=== PATIENT | male | born 1950 | race Caucasian/White ===

== ENCOUNTER 2023-04-07 09:58 | Outpatient (OUT) | payer MEDICARE, OTHER, SELFPAY ==
--- NOTE | 2023-04-07 10:45 | MR_ITS ---
[address] [address] Patient Name: TERRI LOWE MRN: [id number] date: 1950 Sex: M Assigned Patient Location: MRI Current Patient Location: MRI Accession/Order Number: [id number] Exam Date: 04/07/2023 10:45 Report Date: 04/09/2023 07:06 At the request of: KRISHNA VALDES Procedure: MR cervical spine wo con EXAM: MR cervical spine wo con REASON FOR EXAM: Cervical radiculopathy at C5 M54.12. TECHNIQUE: Multiplanar, multisequence imaging of the cervical spine was performed without contrast COMPARISON: Plain radiographs 09/22/2022. FINDINGS: Study mildly degraded by motion. Limited evaluation of the posterior fossa is unremarkable. The visualized spinal cord demonstrates grossly normal caliber and signal. Normal cervical lordosis. Vertebral body heights and facet alignments are maintained. No acute or aggressive osseous abnormality identified. Visualized paravertebral soft tissues are unremarkable. C2-C3: No focal disc herniation identified. No sniffing spinal canal or neural foraminal stenosis. C3-C4: Mild broad-based disc bulge with mild spinal canal stenosis. Moderate to severe bilateral neural foraminal stenosis secondary to uncovertebral degeneration and facet arthropathy, left greater than right. C4-C5: Broad-based disc bulge with mild spinal canal stenosis. Moderate to severe bilateral neural foraminal stenosis secondary to disc osteophyte complex, uncovertebral degeneration and facet arthropathy. C5-C6: Broad-based disc bulge with mild spinal canal stenosis. Moderate to severe bilateral neural foraminal stenosis, right greater than left secondary to disc osteophyte complex, uncovertebral degeneration and facet arthropathy. C6-C7: Broad-based disc bulge with mild spinal canal stenosis. Moderate to severe bilateral neural foraminal stenosis secondary to uncovertebral degeneration facet arthropathy, right greater than left. C7-T1: No focal disc herniation identified. Moderate bilateral neural foraminal stenosis secondary to uncovertebral degeneration and facet arthropathy. IMPRESSION: Moderate multilevel degenerative disc disease with moderate to severe bilateral neural foraminal stenosis, most notably at the C4-C5 through C6-C7 levels. No evidence of severe spinal canal stenosis. Electronically authenticated by: LALA MARTINEZ Date: 04/09/2023 07:06
== END 2023-04-07 09:59 | disposition home or self-care (01) ==
LOC: MRI 10:04
PROVIDERS: PCP Nurse Practitioner; Visit Provider Personal Emergency Response Attendant
DX: M54.12 Radiculopathy, cervical region (principal)
CPT/HCPCS: 72141

== ENCOUNTER 2023-05-01 15:14 | Outpatient (OUT) | payer MEDICARE, OTHER, SELFPAY ==
[2023-05-01 15:35] LABS: Basophils Percent Auto 0.3 % (0.2-2.0); Eosinophils Absolute Auto 0.1 10^3/uL (0.0-0.7); Eosinophils Percent Auto 1.5 % (0.9-7.0); Hematocrit 52.7 % (42.0-54.0); Hemoglobin 18.1 g/dL (14.0-18.0); Immature Granulocytes Abs Auto 0.02 10^3/uL (0.00-0.03); Immature Granulocytes Pct Auto 0.3 % (0.0-0.5); Lymphocytes Absolute Auto 2.1 10^3/uL (1.2-3.8); Lymphocytes Percent Auto 33.6 % (20.5-60.0); Mean Corpuscular HGB Conc 34.3 g/dL (29.9-35.2); Mean Corpuscular Hemoglobin 31.3 pg (25.9-34.0); Mean Corpuscular Volume 91.2 fL (80.0-94.0); Mean Platelet Volume 9.6 fL (9.5-13.5); Monocytes Absolute Auto 0.5 10^3/uL (0.3-0.8); Monocytes Percent Auto 8.6 % (1.7-12.0); Neutrophils Absolute Auto 3.4 10^3/uL (1.4-6.5); Neutrophils Percent Auto 55.7 % (43.0-75.0); Platelet Count 169 10^3/uL (150-450); Red Blood Count 5.78 10^6/uL (4.70-6.10); Red Cell Distribution Width 13.4 % (11.0-15.0); White Blood Count 6.1 10^3/uL (4.0-11.0)
[2023-05-01 16:10] LABS: Anion Gap 13.5; BUN Creatinine Ratio 19.4; Calcium 9.2 mg/dL (8.5-10.1); Carbon Dioxide 27.3 mmol/L (21.0-32.0); Chloride 101 mmol/L (98-107); Estimated GFR (African America >60 (>=60); Estimated GFR (Non-African Ame >60 (>=60); Glucose 128 mg/dL (74-106); Potassium 4.8 mmol/L (3.5-5.1); Sodium 137 mmol/L (136-145)
[2023-05-01 16:41] LABS: Estimated Average Glucose 180 mg/dL; Glycohemoglobin A1C 7.9 % (4.5-6.2)
== END 2023-05-01 15:15 | disposition home or self-care (01) ==
LOC: LAB 15:16
PROVIDERS: PCP Nurse Practitioner; Visit Provider Nurse Practitioner
DX: E11.65 Type 2 diabetes mellitus with hyperglycemia (principal); D64.9 Anemia, unspecified
CPT/HCPCS: 36415; 80048; 82607; 82728; 83036; 83540; 85025

== ENCOUNTER 2023-06-12 13:22 | Outpatient (OUT) | payer MEDICARE, OTHER, SELFPAY ==
--- NOTE | 2023-06-12 14:04 | CA_ITS ---
[facility] Test Date: 2023-06-12 Pat Name: TERRI LOWE Department: Room: - Gender: Male [employer]: : 1950 Requested By: OMID RICKS Order Number: [id number] Reading MD: ROBERTO GODDARD Interpretive Statements Monophasic doppler waveforms of the LLE PVR waveform with delayed upstroke, blunted amplitude and loss of dicrotic notch of the LLE Right: - significant pressure gradient between the calf and DP cuff - abnormal MALATHI Left: - signficant pressure gradient between the brachial and thigh cuff - abnormal MALATHI IMpression: - significant right outflow (tibioperoneal) arterial disease with mild hemodynamic impairment of the right lower extremity at rest (MALATHI 0.94) - significant left inflow (femoral artery or above) arterial disease with moderate hemodynamic impairment of the left lower extremity at rest (MALATHI 0.66) Electronically Signed On 06-13-2023 7:23:30 EDT by ROBERTO GODDARD
== END 2023-06-12 13:23 | disposition home or self-care (01) ==
LOC: CARD 13:22
PROVIDERS: PCP Nurse Practitioner
DX: I73.9 Peripheral vascular disease, unspecified (principal); E66.9 Obesity, unspecified
CPT/HCPCS: 93923

== ENCOUNTER 2023-08-29 13:53 | Outpatient (OUT) | payer MEDICARE, OTHER, SELFPAY ==
[2023-08-29 14:44] LABS: Anion Gap 11.8; BUN Creatinine Ratio 14.3; Calcium 9.5 mg/dL (8.5-10.1); Carbon Dioxide 26.6 mmol/L (21.0-32.0); Chloride 102 mmol/L (98-107); Estimated GFR (African America >60 (>=60); Estimated GFR (Non-African Ame >60 (>=60); Glucose 169 mg/dL (74-106); Potassium 4.4 mmol/L (3.5-5.1); Sodium 136 mmol/L (136-145)
[2023-08-29 14:47] LABS: Estimated Average Glucose 177 mg/dL; Glycohemoglobin A1C 7.8 % (4.5-6.2)
== END 2023-08-29 13:54 | disposition home or self-care (01) ==
LOC: LAB 13:56
PROVIDERS: PCP Nurse Practitioner; Visit Provider Nurse Practitioner
DX: E11.8 Type 2 diabetes mellitus with unspecified complications (principal)
CPT/HCPCS: 36415; 80048; 83036

== ENCOUNTER 2023-12-05 12:44 | Outpatient (OUT) | payer MEDICARE, OTHER, SELFPAY ==
--- NOTE | 2023-12-05 12:47 | CT_ITS ---
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 TECHNIQUE: Contiguous axial CT images of the sinuses obtained without contrast. Coronal and sagittal reconstructions performed. Dose reduction techniques were achieved by using automated exposure control and/or adjustment of mA and/or kV according to patient size and/or use of iterative reconstruction technique. FINDINGS: There is minimal mucosal thickening of the bilateral maxillary sinuses. Otherwise, the paranasal sinuses are well-aerated without mucosal thickening or air-fluid level. Bilateral infundibulum of the ostiomeatal complexes are narrow but patent. The frontoethmoidal recesses are patent bilaterally. 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 There is moderate rightward bony nasal septal deviation with a bony spur.. There are no acute fracture, destructive lesion or sclerosis of bony structures. The visualized mastoid air cells and middle ear cavities are clear. There is no proptosis. The extraocular muscles are intact. CT/CT sinus wo con IMPRESSION: No evidence of acute sinusitis. Minimal mucosal thickening of the bilateral maxillary sinuses. Otherwise, the paranasal sinuses are clear and well-aerated. Bilateral infundibulum of the ostiomeatal complexes are narrow but patent. Moderate rightward deviation of nasal septum with a bony spur. Electronically authenticated by: JONNIE DAVISU Date: 12/05/2023 13:25
--- OUTSIDE RECORDS SUMMARY | 2023-12-05 12:55 | XMS_ITS | CCD ---
Author Name Unknown Address [address] [place] [address] Organization [facility] Care Team Providers Care Director Nursing Service Name Role Phone Shen Luis Unavailable Krishna Ocasio Unavailable TONYA DEY Primary Care Physician Bernadine PLATT Attending Unavailable TONYA DYE Referring UnavailBernadine Jamil Attending Unavailable AICHTONYA WEST Referring Unavailabl e Bernadine PLATT Attending Unavailable Bernadine PLATT Attending Unavailable AICHHOLZ, RUBBER SPLICER TONYA Consulting Unavailable AICHHOLZ, RUBBER SPLICER TONYA Primary Care Unavailable AICHHOLZ, RUBBER SPLICER TONYA Attending Unavailable AICHHOLZ, RUBBER SPLICER TONYA Admitting Unavailable AICHHOLZ, RUBBER SPLICER TONYA Consulting Unavailable AICHHOLZ, RUBBER SPLICER TONYA Primary Care Unavailable AICHHOLZ, RUBBER SPLICER TONYA Attending Unavailable AICHHOLZ, RUBBER SPLICER TONYA Admitting Unavailable PRIETO, DR BHAVANA Pinzon Consulting Unavailable MILLICENT, DR ANNE Consulting Unavailable AICHHOLZ, RUBBER SPLICER TONYA Primary Care Unavailable ABBAS, DR ANNE Attending Unavailable MILLICENT, DR ANNE Admitting Unavailable PRIETO, DR BHAVANA Pinzon Consulting Unavailable KEISHA ., MR KRISHNA Consulting Unavailable AICHHOLZ, RUBBER SPLICER TONYA Primary Care Unavailable VALDES ., MR KRISHNA Attending Unavailable VALDES ., MR KRISHNA Admitting Unavailable AICHHOLZ, RUBBER SPLICER TONYA Consulting Unavailable AICHHOLZ, RUBBER SPLICER TONYA Primary Care Unavailable AICHHOLZ, RUBBER SPLICER TONYA Attending Unavailable AICHHOLZ, RUBBER SPLICER TONYA Admitting Unavailable DR BHAVANA MOREAU Consulting Unavailable DR IRENE GONZALEZ Procedure Practitioner Unavaila DR IRENE Yang Consulting Unavailable FAWWAD, TODD H Attending Unavailable FAWWAD, TODD H Admitting Unavailable AICHHOLZ, RUBBER SPLICER TONYA Primary Care Unavailable CHIO ., DR BERNADINE Pink Consulting Unavailvasile BARROSO ., DR BERNADINE Pink Procedure Practitioner U IAN Caputo Consulting Unavailable GAGAND, TODD H Consulting Unavailable SID KWONG Consulting Unavailable BHAVANA MCCANN Consulting Unavailable NILL ., DR COLINDRES Consulting Unavailable AICHHOLZ, RUBBER SPLICER TONYA Primary Care Unavailable NILL ., DR COLINDRES Attending Unavailable NILL ., DR COLINDRES Admitting Unavailable RHYS, MEJIA Bloom Consulting Unavailable AICHHOLZ, RUBBER SPLICER TONYA Primary Care Unavailable NILL ., DR COLINDRES Attending Unavailable NILL ., DR COLINDRES Admitting Unavailable CARLOS, DR IRENE Pinzon Consulting Unavailable CARLOS, DR IRENE Pinzon Attending Unavailable CARLOS, DR IRENE Pinzon Admitting Unavailable AICHHOLZ, RUBBER SPLICER TONYA Primary Care Unavailable ROSARIO BLANCO Consulting Unavailable AICHHOLZ, RUBBER SPLICER TONYA Consulting Unavailable AICHHOLZ, RUBBER SPLICER TONYA Primary Care Unavailable AICHHOLZ, RUBBER SPLICER TONYA Attending Unavailable AICHHOLZ, RUBBER SPLICER TONYA Admitting Unavailable AICHHOLZ, RUBBER SPLICER TONYA Consulting Unavailable AICHHOLZ, RUBBER SPLICER TONYA Primary Care Unavailable AICHHOLZ, RUBBER SPLICER TONYA Attending Unavailable AICHHOLZ, RUBBER SPLICER TONYA Admitting Unavailable AICHHOLZ, RUBBER SPLICER TONYA Consulting Unavailable AICHHOLZ, RUBBER SPLICER TONYA Primary Care Unavailable AICHHOLZ, RUBBER SPLICER TONYA Attending Unavailable AICHHOLZ, RUBBER SPLICER TONYA Admitting Unavailable MILLICENT, DR ANNE Consulting Unavailable AICHHOLZ, RUBBER SPLICER TONYA Primary Care Unavailable MILLICENT, DR ANNE Attending Unavailable ABBVICKY, DR ANNE Admitting Unavailable ROSALINE, DR BINDU Brown Consulting Unavailable AICHHOLZ, RUBBER SPLICER TONYA Primary Care Unavailable AICHHOLZ, RUBBER SPLICER TONYA Attending Unavailable AICHHOLZ, RUBBER SPLICER TONYA Admitting Unavailable AICHHOLZ, RUBBER SPLICER TONYA Consulting Unavailable Aichholz, Tonya J Primary Care Provider MD Shen Luis Attending Provider Hardik, Tonya J Primary Care Unavailable Shen Luis Attending Unavailable Shen Luis Admitting Unavailable Aichholz OPTICIAN APPRENTICE DISPENSING, Tonya Unavailable Mumtaz Harry MD Primary Care Provider SOL BAGLEY Attending Unavailable MUMTAZ HARRY Referring Unavailable TONYA DYE Attending Unavailable KRISHNA VALDES Attending Unavailable KRISHNA VALDES Referring Unavailable Allergies Allergy Classification Reported Allergen(s) Allergy Type Date of Onset Reaction(s) Facility (13 sources) Ciprofloxacin; Translations: [ciprofloxacin] Drug Allergy 03-14-20 21 Itching (finding), Unknown [facility] (10 sources) liraglutide; Translations: [liraglutide] Drug Allergy 03-14-20 21 Itching (finding) [facility] (4 sources) liraglutide; Translations: [Victoza] Drug Allergy 03-26-20 22 rash [facility] Repository (7 sources) Penicillin; Translations: [penicillin] Drug Allergy Itching (finding) [facility] (5 sources) Penicillin V Drug Allergy Unknown [facility] Other (8 sources) Pollen Propensity to adverse reactions Unknown [facility] Other (7 sources) Cefaclor; Translations: [cefaclor] Drug Allergy 09-19-20 23 Itching (finding) [facility] (2 sources) Ciprofloxacin; Translations: [Cipro] Drug Allergy 04-30-20 21 [facility] Repository (1 source) Cefaclor Drug Allergy [facility] Repository (1 source) dulaglutide Drug Allergy 03-26-20 22 [facility] (1 source) insulin aspart, human Drug Allergy 03-27-20 22 [facility] (1 source) Penicillin Drug Allergy 03-26-20 22 [facility] (2 sources) Penicillins; Translations: [Penicillins] Allergy to substance 03-14-20 21 Itching [facility] (1 source) Ciprofloxacin Drug Allergy 10-24-19 [facility] Repository (1 source) liraglutide Drug Allergy 10-24-19 24 [facility] Repository (1 source) Pollen Drug allergy (disorder) 10-24-19 24 [facility] Repository (3 sources) dulaglutide Drug Allergy 03-09-20 23 Unknown [facility] Healthcare (3 sources) liraglutide Drug Allergy 03-09-20 Unknown [facility] Healthcare (3 sources) Penicillin G Drug Allergy 03-09-20 Unknown [facility] Healthcare Medications Current Medications Medication Drug Class(es) Dates Sig (Normalized) Sig (Original) amLODIPine 5 mg oral tablet (13 sources) Dihydropyridine Calcium Channel Kayla Start: 03-09-2021 amLODIPine (Norvasc) 5 MG tablet Take 5 mg by mouth 0 08/24/2022 Active aspirin 81 mg delayed release oral tablet (10 sources) Platelet Aggregation Inhibitor, Nonsteroidal Anti-inflammatory Drug Start: 03-09-2021 take 1 tablet by mouth once daily aspirin 81 mg Oral EC Tab 81 mg = 1 tab(s), Oral, Daily, Refills(s) 0 Start Date: 08/24/22 Status: Ordered Aspirin Adult Lo w Dose 81 MG as directed Orally Active cilostazol 100 mg oral tablet (9 sources) Phosphodiesterase 3 Inhibitor Start: 08-24-2022 take 1 tablet by mouth twice daily cilostazol 100 mg Tab 100 mg = 1 tab(s), Oral, BID, Refills(s) 0 Start Date: 08/24/22 Status: Ordered clonazePAM 0.5 mg oral tablet (3 sources) Benzodiazepine Start: 08-24-2022 take 1 tablet by mouth twice daily as needed for anxiety Klonopin 0.5 mg Tab 0.5 mg = 1 tab(s), Oral, BID, PRN Anxiety, Refills(s) 0 Start Date: 08/24/22 Status: Ordered clopidogrel 75 mg oral tablet (9 sources) P2Y12 Platelet Inhibitor Start: 03-09-2021 take 1 tablet by mouth in the morning clopidogrel (Plavix) 75 MG tablet Take 75 mg by mouth in the morning. 0 08/30/2022 Active dapagliflozin 5 mg oral tablet (6 sources) Sodium-Glucose Cotransporter 2 Inhibitor Start: 08-24-2022 take 1 tablet by mouth once daily Farxiga 5 mg oral tablet 5 mg = 1 tab(s), Oral, Daily, Refills(s) 0 Start Date: 08/24/22 Status: Ordered take 10 mg by mouth in the morni ng Farxiga 10 MG Take 10 mg by mouth in the morning. 0 Active ferrous sulfate 325 mg delayed release oral tablet (12 sources) Start: 08-24-2022 take 1 tablet by mouth twice daily ferrous sulfate 325 mg oral enteric coated tablet 325 mg = 1 tab(s), Oral, BID, Refills(s) 0 Start Date: 08/24/22 Status: Ordered take 1 tablet by mouth at [facility] de ferrous sulfate 325 (65 Fe) MG tablet Take 325 mg by mouth in the morning. Take with meals. 0 Active Flonase 0.05 mg/inh nasal spray (1 source) Start: 08-24-2022 Flonase 0.05 m g/inh nasal spray 2 spray(s), Nasal, Daily, Refill(s) 0 Start Date: 08/24/22 Status: Ordered fluticasone propionate 0.05 mg/actuat metered dose nasal spray (11 sources) Corticosteroid Start: 05-12-2023 fluticasone (F lonase) 50 MCG/ACT nasal spray Start: 08-24-2022 Flonase 0.05 m g/inh nasal spray 2 spray(s), Nasal, Daily, Refill(s) 0 Start Date: 08/24/22 Status: Ordered Start: 07-09-2019 take 1 spray(s) nasa l route once daily as needed Flonase 50 MCG/ACT 1 spray in each nostril Nasally Once a day for 10 day(s) PRN Jun, Not-Taking/PRN Start: 07-09-2019 take 1 spray(s) nasa l route once daily as needed Flonase 50 MCG/ACT 1 spray in each nostril Nasally Once a day for 10 day(s) PRN Jun, Not-Taking gabapentin 400 mg oral capsule (13 sources) Anti-epileptic Agent Start: 08-24-2022 gabapenti n (Neurontin) 400 MG capsule as directed, Refills(s) 0 0 08/24/2022 Active Start: 03-09-2021 take 300 mg by mouth four times daily Gabapentin Active 300 MG PO Four times daily March 08, 2021 11:00pm take 1 capsule by [facility] every eight hours Gabapentin 300 MG 1 capsule Orally three times a day for 90 days Active glipiZIDE 10 mg oral tablet (10 sources) Sulfonylurea Start: 03-09-2021 take 10 mg by mouth once daily Glipizide Active 10 MG PO Daily March 08, 2021 11:00pm take 1 tablet by [facility] twice daily 30 minutes before lunch glipiZIDE 10 mg TAKE 1 TABLET 30 MINUTES BEFORE LUNCH AND DINNER Orally twice a day for 90 day(s) Active metFORMIN hydrochloride 1000 mg oral tablet (13 sources) Biguanide Start: 03-09-2021 metFORMIN (Glu cophage) 1000 MG tablet Take 1,000 mg by mouth. 0 08/24/2022 Active metoprolol tartrate 50 mg oral tablet (13 sources) beta-Adrenergic Kayla Start: 08-24-2022 metoprolol tartrate (Lopressor) 50 MG tablet Take 50 mg by mouth. 0 08/24/2022 Active Start: 03-09-2021 take 50 mg by mouth once daily Metoprolol Tartrate Active 50 MG PO Daily March 08, 2021 11:00pm Metoprolol [facility] 100 mg TAKE 1 TABLET DAILY Active pioglitazone 30 mg oral tablet (19 sources) Peroxisome Proliferator Receptor alpha Agonist, Peroxisome Proliferator Receptor gamma Agonist, Thiazolidinedione Start: 03-09-2021 pioglitazone (Actos) 30 MG tablet Take 30 mg by mouth. 0 08/24/2022 Active Actos Not-Taking /PRN Actos Not-Taking sertraline 50 mg oral tablet (9 sources) Serotonin Reuptake Inhibitor Start: 08-24-2022 take 1 tablet by mouth once daily Zoloft 50 mg Tab 50 mg = 1 tab(s), Oral, Daily, Refills(s) 0 Start Date: 08/24/22 Status: Ordered simvastatin 20 mg oral tablet (13 sources) HMG-CoA Reductase Inhibitor Start: 03-09-2021 simvastatin (Zocor) 20 MG tablet tamsulosin hydrochloride 0.4 mg oral capsule (13 sources) alpha-Adrenergic Kayla Start: 08-24-2022 take 1 capsule by mouth every twenty-four hours tamsulosin (Flomax) 0.4 MG 24 hr capsule Take 0.4 mg by mouth. 0 08/24/2022 Active Start: 03-09-2021 take 1 capsule by mo ut once daily Flomax 0.4 mg Cap 0.4 mg = 1 cap(s), Oral, Daily, Refills(s) 0 Start Date: 08/24/22 Status: Ordered vitamin b12 1 mg oral tablet (3 sources) Vitamin B12 take 1 tablet by mouth in the morning cyanocobalamin (Vitamin B-12) 1000 MCG tablet Take 1,000 mcg by mouth in the morning. 0 Active Vitamin B12 1000 mcg Tab (3 sources) Start: 08-24-2022 take 1 tablet by mouth once daily Vitamin B12 1000 mcg Tab 1,000 mcg = 1 tab(s), Oral, Daily, Refills(s) 0 Start Date: 08/24/22 Status: Ordered Completed/Discontinued Medications Medication Drug Class(es) Dates Sig (Normalized) Sig (Original) acetaminophen 325 mg / HYDROcodone bitartrate 5 mg oral tablet (7 sources) Opioid Agonist Start: 03-14-2021 take 1 tablet by mouth every six hours HYDROcodone-Acetamin ophen 5-325 MG 1 tablet as needed Orally every 6 hrs for 5 days Mar, Not-Taking/PRN cyclobenzaprine hydrochloride 5 mg oral tablet (6 sources) Muscle Relaxant Start: 12-23-2020 take 1 tablet by mouth every twenty-four hours Cyclobenzaprine HCl 5 MG 1 tablet at bedtime as needed Orally Once a day for 20 day(s) Dec, Not-Taking/PRN Triamcinolone (12 sources) Corticosteroid Start: 07-29-2021 Kenalog -40 mg Jul, 40 mg Start: 06-19-2019 Triamcinolone Acetonide 0.1 % 1 application to affected area (10 cm area on both arms) Externally Twice a day for 10 day(s) PRN Jun, Not-Taking/PRN Start: 06-19-2019 Triamcinolone Acetonide 0.1 % 1 application to affected area (10 cm area on both arms) Externally Twice a day for 10 day(s) PRN Jun, Not-Taking triamcinolone (K enalog) 0.1 % cream every 12 (twelve) hours. 0 Active Problems Active Problems Problem Classification Problem Date Documented Da te Episodic/Chronic Anxiety disorders (6 sources) Panic disorder; Translations: [Panic disorder [episodic paroxysmal anxiety]] Onset: 4 08-24-2022 Chronic Cardiac dysrhythmias (13 sources) Multiple premature ventricular complexes; Translations: [Ventricular premature depolarization] Onset: 2 08-24-2022 Chronic Cardiac dysrhythmias (7 sources) Bradycardia; Translations: [Bradycardia, unspecified] Onset: 2 08-24-2022 Episodic Chronic obstructive pulmonary disease and bronchiectasis (1 source) Chronic obstructive pulmonary disease, unspecified; Translations: [COPD UNSPECIFIED] Onset: 2 Chronic Congestive heart failure; nonhypertensive (6 sources) Diastolic dysfunction; Translations: [Other ill-defined heart diseases] Onset: 4 08-24-2022 Chronic Deficiency and other anemia (6 sources) Iron deficiency anemia; Translations: [Iron deficiency anemia, unspecified] Onset: 4 08-24-2022 Episodic Deficiency and other anemia (5 sources) Iron deficiency anemia, unspecified; Translations: [IRON DEFICIENCY ANEMIA UNSPECIFIED] Onset: 2 Episodic Diabetes mellitus with complications (20 sources) Type 2 diabetes mellitus in obese; Translations: [Type 2 diabetes mellitus with other specified complication] Onset: 2 08-24-2022 Chronic Diabetes mellitus without complication (7 sources) Diabetes mellitus; Translations: [Type 2 diabetes mellitus without complications] Onset: 2 08-24-2022 Chronic Diseases of white blood cells (1 source) Elevated white blood cell count, unspecified; Translations: [ELEVATED WHITE BLOOD CELL COUNT UNS] Onset: 2 Chronic Disorders of lipid metabolism (13 sources) Mixed hyperlipidemia; Translations: [Mixed hyperlipidemia] Onset: 3 08-24-2022 Chronic Diverticulosis and diverticulitis (1 source) Diverticulosis of large intestine without perforation or abscess with bleeding; Translations: [DVRTCLOS LG INT W/O PERF/ABSC W/BL] Onset: 2 Chronic Essential hypertension (15 sources) Essential hypertension; Translations: [Essential (primary) hypertension] Onset: 3 08-24-2022 Chronic Heart valve disorders (4 sources) Nonrheumatic aortic (valve) stenosis; Translations: [Aortic valve disorders] Onset: 2 10-31-2023 Chronic Heart valve disorders (3 sources) Heart murmur; Translations: [Cardiac murmur, unspecified] Onset: 4 11-29-2023 Episodic Hyperplasia of prostate (13 sources) Benign prostatic hyperplasia; Translations: [Benign prostatic hyperplasia without lower urinary tract symptoms] Onset: 3 08-24-2022 Chronic Hypertension with complications and secondary hypertension (1 source) Hypertensive heart disease with heart failure; Translations: [HTN HEART DISEASE W/HEART FAIL] Onset: 2 Chronic Nutritional deficiencies (7 sources) Cobalamin deficiency; Translations: [Deficiency of other specified B group vitamins] Onset: 3 08-24-2022 Episodic Osteoarthritis (9 sources) Arthritis of right knee; Translations: [Unilateral primary osteoarthritis, right knee] Onset: 1 Resolved: 2 Chronic Other circulatory disease (1 source) Other specified symptoms and signs involving the circulatory and respiratory systems; Translations: [OTH SPEC SX SIGNS INVLV CIRC RS] Onset: 3 Episodic Other connective tissue disease (1 source) Olecranon bursitis, left elbow Episodic Other connective tissue disease (1 source) Olecranon bursitis, right elbow Episodic Other connective tissue disease (1 source) Pain in lower limb; Translations: [Pain in leg, unspecified] 09-27-2023 Episodic Other connective tissue disease (3 sources) Synovial cyst of right popliteal space; Translations: [Synovial cyst of popliteal space [Jones], right knee] Onset: 4 11-29-2023 Episodic Other connective tissue disease (3 sources) Bursitis of olecranon of right elbow; Translations: [Olecranon bursitis, right elbow] Onset: 4 11-29-2023 Episodic Other connective tissue disease (3 sources) Bursitis of olecranon of left elbow; Translations: [Olecranon bursitis, left elbow] Onset: 4 11-29-2023 Episodic Other diseases of bladder and urethra (1 source) Other specified disorders of bladder; Translations: [OTHER SPECIFIED DISORDERS BLADDER] Onset: 2 Chronic Other ear and sense organ disorders (6 sources) Hearing loss; Translations: [Unspecified hearing loss, unspecified ear] Onset: 2 08-24-2022 Chronic Other ear and sense organ disorders (1 source) Unspecified hearing loss, unspecified ear; Translations: [UNS HEARING LOSS UNSPECIFIED EAR] Onset: 3 Chronic Other ear and sense organ disorders (3 sources) Tinnitus of right ear; Translations: [Tinnitus, right ear] Onset: 4 11-29-2023 Episodic Other endocrine disorders (4 sources) Other specified disorders of adrenal gland; Translations: [OTHER SPEC DISORDERS ADRENAL GLAND] Onset: 3 Chronic Other endocrine disorders (3 sources) Adrenal mass; Translations: [Other specified disorders of adrenal gland] Onset: 4 10-31-2023 Chronic Other gastrointestinal disorders (3 sources) Adrenal mass 08-24-2022 Episodic Other inflammatory condition of skin (9 sources) Psoriasis; Translations: [Psoriasis, unspecified] Onset: 3 03-09-2023 Chronic Other nervous system disorders (1 source) Carpal tunnel syndrome; Translations: [Carpal tunnel syndrome, unspecified upper limb] Chronic Other nervous system disorders (3 sources) Carpal tunnel syndrome of right wrist; Translations: [Carpal tunnel syndrome, right upper limb] Onset: 3 03-09-2023 Chronic Other nervous system disorders (3 sources) Bilateral carpal tunnel syndrome; Translations: [Carpal tunnel syndrome, bilateral upper limbs] Onset: 4 11-29-2023 Chronic Other nervous system disorders (5 sources) Mucosal anosmia; Translations: [Anosmia] Onset: 3 09-19-2023 Episodic Other nervous system disorders (4 sources) Loss of taste; Translations: [Parageusia] Onset: 4 11-29-2023 Episodic Other non-traumatic joint disorders (2 sources) Pain in left elbow; Translations: [Pain in left elbow] Onset: 4 Episodic Other non-traumatic joint disorders (1 source) Pain in right elbow Episodic Other nutritional; endocrine; and metabolic disorders (9 sources) Obesity; Translations: [Obesity, unspecified] 08-24-2022 Chronic Other nutritional; endocrine; and metabolic disorders (1 source) Obesity, unspecified; Translations: [OBESITY UNSPECIFIED] Onset: 3 Chronic Other nutritional; endocrine; and metabolic disorders (3 sources) Obese class I; Translations: [Obesity, unspecified] Onset: 2 10-31-2023 Chronic Other nutritional; endocrine; and metabolic disorders (8 sources) Overweight in adulthood with body mass index of 25 or more but less than 30; Translations: [Body mass index (BMI) 29.0-29.9, adult] Onset: 4 08-30-2022 Episodic Other screening for suspected conditions (not mental disorders or infectious disease) (5 sources) Encounter for screening for malignant neoplasm of prostate; Translations: [Abnormal electrocardiogram [ECG] [EKG]] Onset: 2 11-29-2023 Episodic Other skin disorders (8 sources) Sebaceous cyst of skin; Translations: [Sebaceous cyst] Onset: 0 Episodic Other upper respiratory disease (12 sources) Seasonal allergy; Translations: [Other seasonal allergic rhinitis] Onset: 4 08-24-2022 Chronic Other upper respiratory disease (3 sources) Allergic rhinitis; Translations: [Allergic rhinitis, unspecified] Onset: 4 11-29-2023 Chronic Peripheral and visceral atherosclerosis (17 sources) Peripheral vascular disease, unspecified; Translations: [Atherosclerosis of [place] arteries of extremities with rest pain, bilateral legs] Onset: 1 Chronic Residual codes; unclassified (6 sources) Tobacco user; Translations: [Tobacco use] Onset: 4 08-24-2022 Episodic Spondylosis; intervertebral disc disorders; other back problems (3 sources) Degeneration of cervical intervertebral disc; Translations: [Other cervical disc degeneration, unspecified cervical region] Onset: 4 11-29-2023 Chronic Spondylosis; intervertebral disc disorders; other back problems (13 sources) Lumbar radiculopathy; Translations: [Cervicalgia] Onset: 2 08-24-2022 Episodic Substance-related disorders (1 source) Nicotine dependence, cigarettes, uncomplicated; Translations: [NICOTINE DEPEND CIGARETTES UNCOMP] Onset: 3 Chronic Unclassified (3 sources) Peripheral arterial disease 08-24-2022 Unclassified (3 sources) Sebaceous cyst of skin 08-30-2022 Unclassified (1 source) CONTACT W/AND (SUSP) EXPOS COVID-19; Translations: [CONTACT W/AND (SUSP) EXPOS COVID-19] Onset: 2 Unclassified (1 source) Pain in right elbow; Translations: [Pain in right elbow] Onset: 4 Past or Other Problems Problem Classification Problem Date Documented Da te Episodic/Chronic Abdominal pain (4 sources) Unspecified abdominal pain; Translations: [UNSPECIFIED ABDOMINAL PAIN] Onset: 03-26-2022 Episodic Acute posthemorrhagic anemia (3 sources) Acute posthemorrhagic anemia; Translations: [ACUTE POSTHEMORRHAGIC ANEMIA] Onset: 03-27-2022 Episodic Complications of surgical procedures or medical care (6 sources) Wound discharge; Translations: [Other complications of procedures, not elsewhere classified, initial encounter] Onset: 12-03-2021 Resolved: 11-29-2023 11-29-2023 Episodic Diseases of mouth; excluding dental (3 sources) Oropharyngeal lesion; Translations: [Other lesions of oral mucosa] Onset: 06-09-2022 10-31-2023 Episodic Inflammation; infection of eye (except that caused by tuberculosis or sexually transmitteddisease) (3 sources) Conjunctivitis; Translations: [Unspecified conjunctivitis] Onset: 03-09-2023 03-09-2023 Episodic Nausea and vomiting (1 source) Nausea with vomiting, unspecified; Translations: [NAUSEA WITH VOMITING UNSPECIFIED] Onset: 04-04-2022 Episodic Nonspecific chest pain (1 source) Chest pain, unspecified; Translations: [CHEST PAIN UNSPECIFIED] Onset: 04-04-2022 Episodic Other aftercare (1 source) [facility] (current) use of aspirin; Translations: [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 ASSEMBLER 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 USE OF ASPIRIN] Onset: 10-20-2022 Episodic Other aftercare (1 source) Other [facility] (current) drug therapy; Translations: [OTH ASSISTED CURRENT DRUG THERAPY] Onset: 10-20-2022 Episodic Other aftercare (1 source) 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 latelets; Translations: [CRUSHER ASSEMBLER ANTITHROMBOT/ANTIPLAT LETS] Onset: 10-20-2022 Episodic Other aftercare (1 source) [facility] (current) use of oral hypoglycemic drugs; Translations: [CRUSHER ASSEMBLER USE ORAL HYPOGLYCEMIC DX] Onset: 10-20-2022 Episodic Other circulatory disease (1 source) Orthostatic hypotension; Translations: [ORTHOSTATIC HYPOTENSION] Onset: 04-04-2022 Episodic Other ear and sense organ disorders (3 sources) Tinnitus; Translations: [Tinnitus, unspecified ear] Onset: 06-09-2022 10-31-2023 Episodic Other gastrointestinal disorders (2 sources) Constipation, unspecified; Translations: [CONSTIPATION UNSPECIFIED] Onset: 03-29-2022 Episodic Other nervous system disorders (3 sources) Peripheral nerve disease ; Translations: [Polyneuropathy, unspecified] Onset: 11-29-2023 Resolved: 11-29-2023 11-29-2023 Chronic Other non-traumatic joint disorders (1 source) Pain in right knee; Translations: [Acute pain of right knee M25.561] Onset: 07-29-2021 Resolved: 07-29-2021 Episodic Other non-traumatic joint disorders (1 source) Effusion, right knee; Translations: [Swelling of right knee joint M25.461] Onset: 07-29-2021 Resolved: 07-29-2021 Episodic Other nutritional; endocrine; and metabolic disorders (1 source) Body mass index (BMI) 29.0-29.9, adult; Translations: [BODY MASS INDEX BMI 29.0-29.9 ADULT] Onset: 10-20-2022 Episodic Other skin disorders (3 sources) Sebaceous cyst; Translations: [SEBACEOUS CYST] Onset: 10-12-2022 Episodic Other skin disorders (1 source) Epidermal cyst; Translations: [EPIDERMAL CYST] Onset: 10-20-2022 Episodic Phlebitis; thrombophlebitis and thromboembolism (1 source) Acute embolism and thrombosis of other specified deep vein of right lower extremity Onset: 12-14-2021 Resolved: 12-14-2021 Episodic Residual codes; unclassified (1 source) Other specified postprocedural states; Translations: [OTH SPECIFIED POSTPROCEDURAL STATES] Onset: 04-04-2022 Episodic Skin and subcutaneous tissue infections (1 source) Local infection of the skin and subcutaneous tissue, unspecified; Translations: [LOCAL INFECT SKIN SUBQ TISSUE UNS] Onset: 10-20-2022 Episodic Results Test Name Value Interpretation Reference Range Facility XR elbow BI 2Von 10-24-2023 XR elbow BI 2V [facility] Main [address] [address] XRay Report Signed Patient: Terri Thacker MR#: [id number] : 1950 Acct:[id number] Age/Sex: 73 / M ADM Date: 10/24/23 Loc: [facility] [place] Room: Type: [facility] Attending Dr: Shen Luis MD Copies to: Shen Luis MD Ordering Provider: Shen Luis MD Date of Service: 10/24/23 XR/XR elbow BI 2V: Pain in right elbow;Pain in left elbow BILATERAL ELBOW - 2 views each CLINICAL HISTORY: Bilateral elbow pain and swelling. COMPARISON: None FINDINGS: Right elbow: Posterior soft tissue swelling. No elbow joint effusion. Mild degenerative changes. No acute bony process. Left elbow: Evidence of olecranon bursitis. Vascular calcifications. Mild degenerative changes. No acute bony process. XR/XR elbow BI 2V IMPRESSION: RIGHT ELBOW DEMONSTRATES MILD DEGENERATIVE CHANGES WITH POSTERIOR SOFT TISSUE SWELLING. NO ACUTE BONY PROCESS. LEFT ELBOW DEMONSTRATES EVIDENCE OF OLECRANON BURSITIS AND MILD DEGENERATIVE CHANGES WITHOUT ACUTE BONY PROCESS. Impression dictated by: Dustin Gordon Jr., D.OPalak10/24/2023 2:29 PM Dictation Location: [place] [address] Transcribed By: [facility] 10/24/23 1429 Dictated By: Dustin Gordon Jr, DO 10/24/23 1428 Signed By: 10/24/23 [address] [facility] [address] ABDOMEN WO/W CONon 2022 CT ABDOMEN WO/W CON EXAMINATION: CT ABDOMEN WO/W CON HISTORY: Disorder of adrenal gland COMPARISON: CT abdomen pelvis 03/26/2022 TECHNIQUE: Axial, Coronal, and Sagittal images were created without and with non-ionic intravenous contrast material. Dose reduction techniques were achieved by using automated exposure control and/or adjustment of mA and/or kV according to patient size and/or use of iterative reconstruction technique. FINDINGS: LUNG BASES: No visible pulmonary or pleural disease. LIVER: No enlargement, atrophy, abnormal density, or significant focal lesion. BILIARY: No visible dilatation or calcification. PANCREAS: No lesion, fluid collection, ductal dilatation, or atrophy. SPLEEN: No enlargement or focal lesion. ADRENALS: Bilateral adrenal masses which measure -8 HU on noncontrast consistent with a benign adenoma. Portal venous phase 46 HU , delayed phase 6 HU, absolute washout 74%, relative washout is 87%. KIDNEYS: Stable small left renal cyst. No mass, obstruction, or calcification. BOWEL/MESENTERY: Medication tablets within distal stomach. No visible mass, obstruction, or bowel wall thickening. AORTA/VASCULAR: No aneurysm or dissection. RETROPERITONEUM: No mass or adenopathy. ABDOMINAL WALL: No mass or hernia. BONES: No bony lesion or fracture. OTHER: Negative. IMPRESSION: 1. Bilateral adrenal masses consistent with benign adenomas. Electronically authenticated by: BHAVANA MOREAU Date: 2023-01-31 16:31 Normal [facility] CBC AUTO DIFFon 01-27-2023 BASO # 0.0 103/ul Normal 0.0-0.1 [facility] Comment on above: Performed By: #### B MP #### [facility] [address] [address] [address] Lucho De León Basophils/100 WBC (Bld) 0.6 % Normal 0.2-2.0 [facility] Comment on above: Performed By: #### B MP #### [facility] [address] [address] [address] Lucho De León EO # 0.1 103/ul Normal 0.0-0.7 [facility] Comment on above: Performed By: #### B MP #### [facility] [address] [address] [address] Lucho De León Eosinophils/100 WBC (Bld) 1.4 % Normal 0.9-7.0 [facility] Comment on above: Performed By: #### B MP #### [facility] [address] [address] [address] Lucho De León Erythrocyte distribution width (RBC) [Ratio] 13.7 % Normal 11.0-15.0 [facility] Comment on above: Performed By: #### B MP #### [facility] [address] [address] [address] Lucho De León Hematocrit (Bld) [Volume fraction] 51.2 % Normal 42.0-54.0 [facility] Comment on above: Performed By: #### B MP #### [facility] [address] [address] [address] Lucho De León Hemoglobin (Bld) [Mass/Vol] 17.5 g/dL Normal 14.0-18.0 [facility] Comment on above: Performed By: #### B MP #### [facility] [address] [place] [address] Dr. Lucho De León IG # 0.02 10e3/ul Normal 0.00-0.03 [facility] Comment on above: Performed By: #### B MP #### [facility] [address] [place] [address] Dr. Lucho De León IG % 0.3 % Normal 0.0-0.5 [facility] Comment on above: Performed By: #### B MP #### [facility] [address] [place] [address] Dr. Lucho De León LYMPH # 1.5 103/ul Normal 1.2-3.8 [facility] Comment on above: Performed By: #### B MP #### [facility] [address] [place] [address] Dr. Lucho De León Lymphocytes/100 WBC (Bld) 22.1 % Normal 20.5-60.0 [facility] Comment on above: Performed By: #### B MP #### [facility] [address] [place] [address] Dr. Lucho De León MANUAL DIFF REQ NO Normal [facility] Comment on above: Performed By: #### B MP #### [facility] [address] [place] [address] Dr. Lucho De León MCH (RBC) [Entitic mass] 31.0 pg Normal 25.9-34.0 [facility] Comment on above: Performed By: #### B MP #### [facility] [address] [place] [address] Dr. Lucho De León MCHC (RBC) [Mass/Vol] 34.2 g/dL Normal 29.9-35.2 [facility] Comment on above: Performed By: #### B MP #### [facility] [address] [place] [address] Dr. Lucho De León MCV (RBC) [Entitic vol] 90.6 fL Normal 80.0-94.0 [facility] Comment on above: Performed By: #### B MP #### [facility] [address] [address] [address] Lucho De León MONO # 0.7 103/ul Normal 0.3-0.8 [facility] Comment on above: Performed By: #### B MP #### [facility] [address] [address] [address] Lucho De León Monocytes/100 WBC (Bld) 10.7 % Normal 1.7-12.0 [facility] Comment on above: Performed By: #### B MP #### [facility] [address] [place] [address] Dr. Lucho De León NEUT # 4.3 103/ul Normal 1.4-6.5 [facility] Comment on above: Performed By: #### B MP #### [facility] [address] [place] [address] Dr. Lucho De León Neutrophils/100 WBC (Bld) 64.9 % Normal 43.0-75.0 [facility] Comment on above: Performed By: #### B MP #### [facility] [address] [place] [address] Dr. Lucho De León Platelet mean volume (Bld) [Entitic vol] 9.1 fL Critically low 9.5-13.5 [facility] Comment on above: Performed By: #### B MP #### [facility] [address] [place] [address] Dr. Lucho De León PLT 220 103/ul Normal 150-450 [facility] Comment on above: Performed By: #### B MP #### [facility] [address] [place] [address] Dr. Lucho De León RBC 5.65 106/ul Normal 4.70-6.10 [facility] Comment on above: Performed By: #### B MP #### [facility] [address] [place] [address] Dr. Lucho De León WBC 6.6 103/ul Normal 4.0-11.0 [facility] Comment on above: Performed By: #### B MP #### [facility] [address] [place] [address] Dr. Lucho De León GLYCOHEMOGLOBIN A1Con 2022 ADA RECOMMENDATION SEE BELOW Normal [facility] Comment on above: Result Comment: ADA RECOMMENDED LIMIT 4.0 - 6.0 ADA THERAPEUTIC TARGET < 7.0 ACTION SUGGESTED > 7.0 Performed By: #### C VDTB #### [facility] [address] [address] [address] Lucho De León Glucose [Mass/Vol] 209 mg/dL Normal [facility] Comment on above: Performed By: #### C VDTBH #### [facility] [address] [place] [address] Dr. Lucho De León HbA1c (Bld) [Mass fraction] 8.9 % Critically high 4.5-6.2 [facility] Comment on above: Performed By: #### C VDTB #### [facility] [address] [place] [address] Dr. Lucho De León IRONon 01-27-2023 Iron [Mass/Vol] 59.0 ug/dL Critically low 65.0-175.0 [facility] Comment on above: Performed By: #### B MP #### [facility] [address] [place] [address] Dr. Lucho De León LIPID PROFILEon 01-27-2023 CHOL-HDL RATIO NORM SEE BELOW Normal [facility] Comment on above: Result Comment: 3.3 - 4.4 LOW RISK 4.4 - 7.1 AVERAGE RISK 7.1 - 11.0 MODERATE RISK >11.0 HIGH RISK Performed By: #### B MP #### [facility] [address] [place] [address] Dr. Lucho De León Cholesterol [Mass/Vol] 177 mg/dL Normal <=200 [facility] Comment on above: Performed By: #### B MP #### [facility] [address] [place] [address] Dr. Lucho De León Cholesterol in HDL [Mass/Vol] 50 mg/dL Normal 40-60 [facility] Comment on above: Performed By: #### B MP #### [facility] [address] [place] [address] Dr. Lucho De León Cholesterol in LDL [Mass/Vol] 89.2 mg/dL Normal [facility] Comment on above: Performed By: #### B MP #### [facility] [address] [address] [address] Lucho De León Cholesterol.total/Cho lesterol in HDL [Mass ratio] 3.5 {ratio} Normal [facility] Comment on above: Performed By: #### B MP #### [facility] [address] [address] [address] Lucho De León HDL NORMAL > or = 60 mg/dl - LOW CARDIOVASCULAR RISK <40 mg/dl - HIGH CARDIOVASCULAR RISK Normal [facility] Comment on above: Performed By: #### B MP #### [facility] [address] [address] [address] Lucho De León LDL CALC NORMAL SEE BELOW Normal [facility] Comment on above: Result Comment: <100 mg/dl OPTIMAL 100 - 129 mg/dl NEAR OR ABOVE OPTIMAL 130 - 159 mg/dl BORDERLINE HIGH 160 - 189 mg/dl HIGH >190 mg/dl VERY HIGH Performed By: #### B MP #### [facility] [address] [address] [address] Lucho De León Triglyceride [Mass/Vol] 189 mg/dL Critically high <=150 [facility] Comment on above: Performed By: #### B MP #### [facility] [address] [address] [address] Lucho De León VLDL CALC 37.8 mg/dL Normal [facility] Comment on above: Performed By: #### B MP #### [facility] [address] [address] [address] Lucho De León MICROALBUMIN, RAND URon 04- mALB 7.6 mg/L Normal <=30.0 [facility] Comment on above: Performed By: #### M ALBR #### [facility] [address] [place] [address] Dr. Lucho De León PROF 14(COMP METB)on 023 Albumin [Mass/Vol] 3.6 g/dL Normal 3.4-5.0 [facility] Comment on above: Performed By: #### B MP #### [facility] [address] [address] [address] Lucho De León Albumin/Globulin [Mass ratio] 0.9 {ratio} Normal [facility] Comment on above: Performed By: #### B MP #### [facility] [address] [place] [address] Dr. Lucho De León ALP [Catalytic activity/Vol] 95 U/L Normal 46-116 [facility] Comment on above: Performed By: #### B MP #### [facility] [address] [address] [address] Lucho De León ALT [Catalytic activity/Vol] 26 U/L Normal 16-63 [facility] Comment on above: Performed By: #### B MP #### [facility] [address] [place] [address] Dr. Lucho De León Anion gap [Moles/Vol] 16.7 mmol/L Normal [facility] Comment on above: Performed By: #### B MP #### [facility] [address] [place] [address] Dr. Lucho De León AST [Catalytic activity/Vol] 13 U/L Critically low 15-37 [facility] Comment on above: Performed By: #### B MP #### [facility] [address] [place] [address] Dr. Lucho De León Bilirubin [Mass/Vol] 0.3 mg/dL Normal 0.2-1.0 [facility] Comment on above: Performed By: #### B MP #### [facility] [address] [place] [address] Dr. Lucho De León Calcium [Mass/Vol] 9.7 mg/dL Normal 8.5-10.1 [facility] Comment on above: Performed By: #### B MP #### [facility] [address] [place] [address] Dr. Lucho De León Chloride [Moles/Vol] 103 mmol/L Normal 98-107 [facility] Comment on above: Performed By: #### B MP #### [facility] [address] [address] [address] Lucho De León CO2 [Moles/Vol] 24.9 mmol/L Normal 21.0-32.0 [facility] Comment on above: Performed By: #### B MP #### [facility] [address] [place] [address] Dr. Lucho De León Creatinine [Mass/Vol] 0.81 mg/dL Normal 0.70-1.30 [facility] Comment on above: Performed By: #### B MP #### [facility] [address] [place] [address] Dr. Lucho De León EGFR-AF GABONESE >60 Normal >=60 [facility] Comment on above: Performed By: #### B MP #### [facility] [address] [place] [address] Dr. Lucho De León EGFR-NON AF GABONESE >60 Normal >=60 [facility] Comment on above: Performed By: #### B MP #### [facility] [address] [place] [address] Dr. Lucho De León Globulin (S) [Mass/Vol] 4.2 g/dL Normal [facility] Comment on above: Performed By: #### B MP #### [facility] [address] [place] [address] Dr. Lucho De León Glucose [Mass/Vol] 156 mg/dL Critically high 74-106 [facility] Comment on above: Performed By: #### B MP #### [facility] [address] [place] [address] Dr. Lucho De León Potassium [Moles/Vol] 4.6 mmol/L Normal 3.5-5.1 [facility] Comment on above: Performed By: #### B MP #### [facility] [address] [place] [address] Dr. Lucho De León Protein [Mass/Vol] 7.8 g/dL Normal 6.4-8.2 [facility] Comment on above: Performed By: #### B MP #### [facility] [address] [place] [address] Dr. Lucho De León Sodium [Moles/Vol] 140 mmol/L Normal 136-145 [facility] Comment on above: Performed By: #### B MP #### [facility] [address] [place] [address] Dr. Lucho De León Urea nitrogen [Mass/Vol] 15.0 mg/dL Normal 7.0-18.0 [facility] Comment on above: Performed By: #### B MP #### [facility] [address] [place] [address] Dr. Lucho De León Urea nitrogen/Creatinine [Mass ratio] 18.5 mg/mg Normal [facility] Comment on above: Performed By: #### B MP #### [facility] [address] [place] [address] Dr. Lucho De León UA RANDOM W/MICROSCOPICon BACTERIA NONE SEEN Normal NONE SEEN [facility] Comment on above: Performed By: #### C BC #### [facility] [address] [place] [address] Dr. Lucho De León Bilirubin Ql (U) Negative Normal NEGATIVE [facility] Comment on above: Performed By: #### C BC #### [facility] [address] [place] [address] Dr. Lucho De León CAST NONE SEEN Normal NONE SEEN [facility] Comment on above: Performed By: #### C BC #### [facility] [address] [place] [address] Dr. Lucho De León Clarity (U) CLEAR Normal CLEAR [facility] Comment on above: Performed By: #### C BC #### [facility] [address] [place] [address] Dr. Lucho De León Color (U) LT. YELLOW Normal YELLOW [facility] Comment on above: Performed By: #### C BC #### [facility] [address] [place] [address] Dr. Lucho De León Crystals LM Nom (Urine sed) NONE SEEN Normal NONE SEEN [facility] Comment on above: Performed By: #### C BC #### [facility] [address] [place] [address] Dr. Lucho De León Epithelial cells LM Ql (Urine sed) NONE SEEN Normal NONE SEEN /RARE [facility] Comment on above: Performed By: #### C BC #### [facility] [address] [place] [address] Dr. Lucho De León Glucose Ql (U) 1000 mg/dl Abnormal NEGATIVE [facility] Comment on above: Performed By: #### C BC #### [facility] [address] [place] [address] Dr. Lucho De León Hemoglobin Ql (U) Negative Normal NEGATIVE [facility] Comment on above: Performed By: #### C BC #### [facility] [address] [place] [address] Dr. Lucho De León Ketones Ql (U) Negative Normal NEGATIVE [facility] Comment on above: Performed By: #### C BC #### [facility] [address] [place] [address] Dr. Lucho De León LEUKOCYTES Negative Normal NEGATIVE [facility] Comment on above: Performed By: #### C BC #### [facility] [address] [place] [address] Dr. Lucho De León MUCOUS NONE SEEN Normal NONE SEEN [facility] Comment on above: Performed By: #### C BC #### [facility] [address] [place] [address] Dr. Lucho De León Nitrite Ql (U) Negative Normal NEGATIVE [facility] Comment on above: Performed By: #### C BC #### [facility] [address] [place] [address] Dr. Lucho De León pH (U) 5.5 [pH] Normal 5-9 [facility] Comment on above: Performed By: #### C BC #### [facility] [address] [place] [address] Dr. Lucho De León RBC NONE SEEN Abnormal 0-2 [facility] Comment on above: Performed By: #### C BC #### [facility] [address] [place] [address] Dr. Lucho De León SPEC GRAVITY 1.020 Normal 1.005-<=1.025 [facility] Comment on above: Performed By: #### C BC #### [facility] [address] [address] [address] Lucho De León UA PROTEIN Negative Normal NEGATIVE/ TRACE [facility] Comment on above: Performed By: #### C BC #### [facility] [address] [address] [address] Lucho De León Urobilinogen Qn (U) 0.2 {Danny'U}/dL Normal 0.2 - 1. 0 [facility] Comment on above: Performed By: #### C BC #### [facility] [address] [address] [address] Lucho De León WBC NONE SEEN Normal NONE SEEN [facility] Comment on above: Performed By: #### C BC #### [facility] [address] [address] [address] Lucho De León US CAROTID ART BILon -07-2 023 US CAROTID ART AIMEE EXAMINATION: US CAROTID ART AIMEE HISTORY: Aortic stenosis, non-rheumatic ; peripheral artery disease. Carotid bruit COMPARISON: Ultrasound carotid artery bilateral 04/28/2016 TECHNIQUE: Duplex Doppler ultrasound analysis of carotid and vertebral arteries. . Bilateral carotid arterial duplex examination was performed using B-mode, color flow and spectral analysis. Carotid stenosis is reported according to validated velocity parameters, similar to NASCET criteria. FINDINGS: RIGHT CAROTID ARTERY: Mild plaque within bulb without significant stenosis. RIGHT VERTEBRAL: Antegrade flow. Subclavian: PSV: 97.3 cm/s EDV: 0.0 cm/s CCA: Prox: PSV: 89.1 cm/s EDV: 11.6 cm/s Mid: PSV: 48.8 cm/s EDV: 8.4 cm/s Distal: PSV: 56.8 cm/s EDV: 8.4 cm/s BULB: PSV: 35.4 cm/s EDV: 6.8 cm/s ICA: Prox: PSV: 66.2 cm/s EDV: 11.2 cm/s Mid: PSV: 74.9 cm/s EDV: 18.0 cm/s Distal: PSV: 64.6 cm/s EDV: 16.7 cm/s ECA: PSV: 144.6 cm/s EDV: 10.9 cm/s VERTEBRAL: PSV: 46.0 cm/s EDV: 7.6 cm/s ICA/CCA ratio: PSV: 1.3 EDV: 2.1 LEFT CAROTID ARTERY: Mild plaque within bulb without significant stenosis. LEFT VERTEBRAL: Antegrade flow. Subclavian: PSV: 124.0 cm/s EDV: 0.0 cm/s CCA: Prox: PSV: 76.7 cm/s EDV: 13.6 cm/s Mid: PSV: 63.3 cm/s EDV: 7.6 cm/s Distal: PSV: 62.0 cm/s EDV: 10.2 cm/s BULB: PSV: 37.4 cm/s EDV: 7.6 cm/s ICA: Prox: PSV: 58.1 cm/s EDV: 12.8 cm/s Mid: PSV: 62.0 cm/s EDV: 14.1 cm/s Distal: PSV: 77.5 cm/s EDV: 18.0 cm/s ECA: PSV: 122.0 cm/s EDV: 7.7 cm/s VERTEBRAL: PSV: 47.0 cm/s EDV: 10.4 cm/s ICA/CCA ratio: PSV: 1.3 EDV: 1.8 IMPRESSION: 1. 0-49% flow stenosis within the right left carotid arteries. 2. Mild atherosclerotic disease bilaterally without significant stenosis. Electronically authenticated by: BHAVANA MOREAU Date: 2022-12-20 16:32 Normal [facility] CBC AUTO DIFFon 11-18-2022 BASO # 0.1 103/ul Normal 0.0-0.1 [facility] Comment on above: Performed By: #### H GBHCT #### [facility] [address] [place] [address] Dr. Lucho De León Basophils/100 WBC (Bld) 0.6 % Normal 0.2-2.0 [facility] Comment on above: Performed By: #### H GBHCT #### [facility] [address] [address] [address] Lucho De León EO # 0.1 103/ul Normal 0.0-0.7 [facility] Comment on above: Performed By: #### H GBHCT #### [facility] [address] [address] [address] Lucho De León Eosinophils/100 WBC (Bld) 1.1 % Normal 0.9-7.0 [facility] Comment on above: Performed By: #### H GBHCT #### [facility] [address] [place] [address] Dr. Lucho De León Erythrocyte distribution width (RBC) [Ratio] 13.6 % Normal 11.0-15.0 [facility] Comment on above: Performed By: #### H GBHCT #### [facility] [address] [place] [address] Dr. Lucho De León Hematocrit (Bld) [Volume fraction] 56.1 % Critically high 42.0-54.0 [facility] Comment on above: Performed By: #### H GBHCT #### [facility] [address] [place] [address] Dr. Lucho De León Hemoglobin (Bld) [Mass/Vol] 17.8 g/dL Normal 14.0-18.0 [facility] Comment on above: Performed By: #### H GBHCT #### [facility] [address] [place] [address] Dr. Lucho De León IG # 0.02 10e3/ul Normal 0.00-0.03 [facility] Comment on above: Performed By: #### H GBHCT #### [facility] [address] [place] [address] Dr. Lucho De León IG % 0.2 % Normal 0.0-0.5 [facility] Comment on above: Performed By: #### H GBHCT #### [facility] [address] [place] [address] Dr. Lucho De León LYMPH # 1.6 103/ul Normal 1.2-3.8 [facility] Comment on above: Performed By: #### H GBHCT #### [facility] [address] [place] [address] Dr. Lucho De León Lymphocytes/100 WBC (Bld) 19.3 % Critically low 20.5-60.0 [facility] Comment on above: Performed By: #### H GBHCT #### [facility] [address] [address] [address] Lucho De León MANUAL DIFF REQ NO Normal [facility] Comment on above: Performed By: #### H GBHCT #### [facility] [address] [place] [address] Dr. Lucho De León MCH (RBC) [Entitic mass] 31.0 pg Normal 25.9-34.0 [facility] Comment on above: Performed By: #### H GBHCT #### [facility] [address] [place] [address] Dr. Lucho De León MCHC (RBC) [Mass/Vol] 31.7 g/dL Normal 29.9-35.2 [facility] Comment on above: Performed By: #### H GBHCT #### [facility] [address] [place] [address] Dr. Lucho De León MCV (RBC) [Entitic vol] 97.6 fL Critically high 80.0-94.0 [facility] Comment on above: Performed By: #### H GBHCT #### [facility] [address] [place] [address] Dr. Lucho De León MONO # 0.7 103/ul Normal 0.3-0.8 [facility] Comment on above: Performed By: #### H GBHCT #### [facility] [address] [place] [place] [address] Dr. Lucho De León Monocytes/100 WBC (Bld) 8.1 % Normal 1.7-12.0 [facility] Comment on above: Performed By: #### H GBHCT #### [facility] [address] [place] [address] Dr. Lucho De León NEUT # 5.7 103/ul Normal 1.4-6.5 [facility] Comment on above: Performed By: #### H GBHCT #### [facility] [address] [place] [address] Dr. Lucho De León Neutrophils/100 WBC (Bld) 70.7 % Normal 43.0-75.0 [facility] Comment on above: Performed By: #### H GBHCT #### [facility] [address] [place] [address] Dr. Lucho De León Platelet mean volume (Bld) [Entitic vol] 10.6 fL Normal 9.5-13.5 [facility] Comment on above: Performed By: #### H GBHCT #### [facility] [address] [place] [address] Dr. Lucho De León PLT 228 103/ul Normal 150-450 [facility] Comment on above: Performed By: #### H GBHCT #### [facility] [address] [place] [address] Dr. Lucho De León RBC 5.75 106/ul Normal 4.70-6.10 [facility] Comment on above: Performed By: #### H GBHCT #### [facility] [address] [place] [address] Dr. Lucho De León WBC 8.1 103/ul Normal 4.0-11.0 [facility] Comment on above: Performed By: #### H GBHCT #### [facility] [address] [place] [address] Dr. Lucho De León PROF CHEM 8 (BAS METB)on Anion gap [Moles/Vol] 11.1 mmol/L Normal [facility] Comment on above: Performed By: #### B MP #### [facility] [address] [place] [address] Dr. Lucho De León Calcium [Mass/Vol] 9.3 mg/dL Normal 8.5-10.1 [facility] Comment on above: Performed By: #### B MP #### [facility] [address] [place] [address] Dr. Lucho De León Chloride [Moles/Vol] 102 mmol/L Normal 98-107 [facility] Comment on above: Performed By: #### B MP #### [facility] [address] [place] [address] Dr. Lucho De León CO2 [Moles/Vol] 28.3 mmol/L Normal 21.0-32.0 [facility] Comment on above: Performed By: #### B MP #### [facility] [address] [address] [address] Lucho De León Creatinine [Mass/Vol] 0.59 mg/dL Critically low 0.70-1.30 [facility] Comment on above: Performed By: #### B MP #### [facility] [address] [address] [address] Lucho De León EGFR-AF GABONESE >60 Normal >=60 [facility] Comment on above: Performed By: #### B MP #### [facility] [address] [place] [address] Dr. Lucho De León EGFR-NON AF GABONESE >60 Normal >=60 [facility] Comment on above: Performed By: #### B MP #### [facility] [address] [place] [address] Dr. Lucho De León Glucose [Mass/Vol] 171 mg/dL Critically high 74-106 [facility] Comment on above: Performed By: #### B MP #### [facility] [address] [place] [address] Dr. Lucho De León Potassium [Moles/Vol] 4.4 mmol/L Normal 3.5-5.1 [facility] Comment on above: Performed By: #### B MP #### [facility] [address] [place] [address] Dr. Lucho De León Sodium [Moles/Vol] 137 mmol/L Normal 136-145 [facility] Comment on above: Performed By: #### B MP #### [facility] [address] [place] [address] Dr. Lucho De Lenó Urea nitrogen [Mass/Vol] 12.0 mg/dL Normal 7.0-18.0 [facility] Comment on above: Performed By: #### B MP #### [facility] [address] [address] [address] Lucho De León Urea nitrogen/Creatinine [Mass ratio] 20.3 mg/mg Normal [facility] Comment on above: Performed By: #### B MP #### [facility] [address] [address] [address] Lucho De León General Surgery Office/Clini c Noteon 10-25-2022 General Surgery Office/Clinic Note Chief Complaint post operative follow up HPI Staff 13 day post operative follow up post excisional biopsy cyst right shoulder. Denies discomfort, bleeding or drainage. Sutures intact. History of Present Illness 13 days s/p excisional biopsy epidermal cyst right upper back; pathology consistent with epidermal cyst; doing well, mild soreness, no drainage. Review of Systems ROS - Provider Constitutional: no fever, no sweats, no weight loss. Eyes: no glasses, no blurred vision, no visual loss. ENMT: no dentures, no hoarseness, no swallowing difficulties, no hearing loss, no ear infection(s), no nose bleeds. Cardiovascular: normal blood pressure, no chest pain, regular heartbeat, no heart murmur. Respiratory: no shortness of breath, no cough, no asthma, no wheezing. Gastrointestinal: no nausea, no vomiting, no diarrhea, no constipation, no blood in stool, no change in bowel habits, no abdominal pain, no hepatitis. Genitourinary: no kidney stones, no urine infection, no dysuria. Musculoskeletal: no pain, no weakness. Skin: no changing moles, no rash, no skin lumps. Neurologic: no seizures, no epilepsy, no headache. Psychiatric: no emotional or psychiatric problem. Heme/Lymph: no bleeding problems, no anemia, no blood clots, no transfusions. Allergy/Immunologic: no swollen lymph nodes/glands, no IV drug abuse. Other: Additional ROS info: Except as noted in the above Review of Systems and in the History of Present Illness, all other systems have been reviewed and are negative or noncontributory. Physical Exam skin: incision healing well, no erythema or drainage, no ecchymosis Assessment/Plan 1. Inflamed sebaceous cyst (L72.3: Sebaceous cyst) doing well, sutures removed; call with problems/questions. Follow-up With When Contact Information MANJIT WILKINS, JULIA Mays Only if needed [address] [place] [address]- Additional Instructions: Problem List/Past Medical History Ongoing BMI 29.0-29.9,adult BPH (benign prostatic hyperplasia) Bradycardia Diabetes Diabetic neuropathy Diabetic retinopathy Diastolic dysfunction Hearing loss HTN (hypertension) Hyperlipidemia Inflamed sebaceous cyst Iron deficiency anemia Lumbar radiculopathy Mass of adrenal gland Obesity PAD (peripheral artery disease) Panic disorder PVCs (premature ventricular contractions) Seasonal allergies Tobacco user Vitamin B12 deficiency Historical No qualifying data Procedure/Surgical History Excisional biopsy (10/12/2022), Endarterectomy and angioplasty of common femoral artery (11/10/2021), SFA - Balloon angioplasty of superficial femoral artery (03/09/2021), Rotator cuff repair, Rotator cuff repair. Medications amLODIPine 5 mg Tab, 5 mg= 1 tab(s), Oral, Daily aspirin 81 mg Oral EC Tab, 81 mg= 1 tab(s), Oral, Daily cilostazol 100 mg Tab, 100 mg= 1 tab(s), Oral, BID clopidogrel 75 mg Tab Farxiga 5 mg oral tablet, 5 mg= 1 tab(s), Oral, Daily ferrous sulfate 325 mg oral enteric coated tablet, 325 mg= 1 tab(s), Oral, BID Flomax 0.4 mg Cap, 0.4 mg= 1 cap(s), Oral, Daily Flonase 0.05 mg/inh nasal spray, 2 spray(s), Nasal, Daily gabapentin 400 mg Cap Klonopin 0.5 mg Tab, 0.5 mg= 1 tab(s), Oral, BID, PRN metformin 1000 mg oral tablet, 1000 mg= 1 tab(s), Oral, BID Metoprolol tartrate 50 mg Tab, 50 mg= 1 tab(s), Oral, BID pioglitazone 30 mg Tab, 30 mg= 1 tab(s), Oral, Daily simvastatin 20 mg Tab, 20 mg= 1 tab(s), Oral, Once a day (at bedtime) Vitamin B12 1000 mcg Tab, 1000 mcg= 1 tab(s), Oral, Daily Zoloft 50 mg Tab, 50 mg= 1 tab(s), Oral, Daily Allergies Ceclor (Itching) Cipro (Itching) Victoza (Itching) penicillin (Itching) Social History Alcohol - Denies Alcohol Use, 08/30/2022 Substance Abuse - Denies Substance Abuse, 08/30/2022 Tobacco 10 or more cigarettes (1/2 pack or more)/day in last 30 days Tobacco Use:. Never Smokeless Tobacco Use:. Cigarettes, .75 per day. Started age 16.0 Years. Yes, 08/30/2022 Family History Cardiac arrest: Father. Diabetes mellitus type 1: Mother. Diabetes mellitus type 2: Brother. Primary malignant neoplasm of female breast: Sister. Normal [facility] Comment on above: Result Comment: Elec tronically Signed By: MANJIT WILKINS, Bernadine Calle\Date and Time Signed: 10/25/22 16:08 EST Pathology Noteon 10-19-2022 Pathology Note [id number] #1.00CD:127 Normal [facility] Operative Reporton Operative Report [id number] #1.00CD:127 Normal [facility] GLYCOHEMOGLOBIN A1Con 2021 ADA RECOMMENDATION SEE BELOW Normal [facility] Comment on above: Result Comment: ADA RECOMMENDED LIMIT 4.0 - 6.0 ADA THERAPEUTIC TARGET < 7.0 ACTION SUGGESTED > 7.0 Performed By: #### C VDTBH #### [facility] [address] [place] [address] Dr. Lucho De León Glucose [Mass/Vol] 197 mg/dL Normal [facility] Comment on above: Performed By: #### C VDTBH #### [facility] [address] [place] [address] Dr. Lucho De León HbA1c (Bld) [Mass fraction] 8.5 % Critically high 4.5-6.2 [facility] Comment on above: Performed By: #### C VDTBH #### [facility] [address] [address] [address] Lucho De León PROF CHEM 8 (BAS METB)on Anion gap [Moles/Vol] 12.0 mmol/L Normal [facility] Comment on above: Performed By: #### B MP #### [facility] [address] [place] [address] Dr. Lucho De León Calcium [Mass/Vol] 9.0 mg/dL Normal 8.5-10.1 [facility] Comment on above: Performed By: #### B MP #### [facility] [address] [address] [address] Lucho De León Chloride [Moles/Vol] 100 mmol/L Normal 98-107 [facility] Comment on above: Performed By: #### B MP #### [facility] [address] [address] [address] Lucho De León CO2 [Moles/Vol] 24.6 mmol/L Normal 21.0-32.0 [facility] Comment on above: Performed By: #### B MP #### [facility] [address] [address] [address] Lucho De León Creatinine [Mass/Vol] 0.61 mg/dL Critically low 0.70-1.30 [facility] Comment on above: Performed By: #### B MP #### [facility] [address] [place] [address] Dr. Lucho De León EGFR-AF GABONESE >60 Normal >=60 [facility] Comment on above: Performed By: #### B MP #### [facility] [address] [address] [address] Lucho De León EGFR-NON AF GABONESE >60 Normal >=60 [facility] Comment on above: Performed By: #### B MP #### [facility] [address] [place] [address] Dr. Lucho De León Glucose [Mass/Vol] 186 mg/dL Critically high 74-106 [facility] Comment on above: Performed By: #### B MP #### [facility] [address] [address] [address] Lucho De León Potassium [Moles/Vol] 4.6 mmol/L Normal 3.5-5.1 [facility] Comment on above: Performed By: #### B MP #### [facility] [address] [place] [address] Dr. Lucho De León Sodium [Moles/Vol] 132 mmol/L Critically low 136-145 [facility] Comment on above: Performed By: #### B MP #### [facility] [address] [address] [address] Lucho De León Urea nitrogen [Mass/Vol] 12.0 mg/dL Normal 7.0-18.0 [facility] Comment on above: Performed By: #### B MP #### [facility] [address] [address] [address] Lucho De León Urea nitrogen/Creatinine [Mass ratio] 19.7 mg/mg Normal [facility] Comment on above: Performed By: #### B MP #### [facility] [address] [address] [address] Lucho De León XR CSPINE 2_3 VIEWSon 2021 XR CSPINE 2_3 VIEWS EXAMINATION: XR CSPINE 2_3 VIEWS HISTORY: Neck pain COMPARISON: XR C-spine 01/11/2021 FINDINGS: BONES: No significant spondylosis, scoliosis, fracture, or visible bony lesion. DISC SPACES: No significant disc height narrowing, subluxation, or endplate abnormality. PARASPINOUS: Negative. No paraspinous abnormality is seen. OTHER: Negative. IMPRESSION: 1. No appreciable acute abnormality. 2. Minimal degenerative changes; not appreciably changed compared to 01/11/2021. Electronically authenticated by: BHAVANA MOREAU Date: 2022-09-22 12:09 Normal [facility] Consent for Procedure/Surger yon 08-31-2022 Consent for Procedure/Surgery [id number] #1.00CD:127 Normal [facility] Ambulatory Visit Summaryon 1 10-30-2021 Ambulatory Visit Summary TERRI THACKER :1950 Visit Date:08/30/2022 Ambulatory Visit Instructions Your Diagnosis Inflamed sebaceous cyst Your Care Team Attending Physician - Bernadine PLATT MD Primary Care Physician - TONYA DYE CNP Referring Physician - TONYA DYE CNP This Is Your Medications List Contact prescribing physician if questions or concerns amlodipine (amLODIPine 5 mg Tab) aspirin (aspirin 81 mg Oral EC Tab) cilostazol (cilostazol 100 mg Tab) clonazepam (Klonopin 0.5 mg Tab) clopidogrel (clopidogrel 75 mg Tab) cyanocobalamin (Vitamin B12 1000 mcg Tab) dapagliflozin (Farxiga 5 mg oral tablet) ferrous sulfate (ferrous sulfate 325 mg oral enteric coated tablet) fluticasone nasal (Flonase 0.05 mg/inh nasal spray) gabapentin (gabapentin 400 mg Cap) metformin (metformin 1000 mg oral tablet) metoprolol (Metoprolol tartrate 50 mg Tab) pioglitazone (pioglitazone 30 mg Tab) sertraline (Zoloft 50 mg Tab) simvastatin (simvastatin 20 mg Tab) tamsulosin (Flomax 0.4 mg Cap) Procedures Performed Endarterectomy and angioplasty of common femoral artery (11/10/2021), SFA - Balloon angioplasty of superficial femoral artery (03/09/2021), Rotator cuff repair, Rotator cuff repair. Discharge Vitals Heart Rate (Peripheral) 76 Respiratory Rate 16 Blood Pressure 138/82 Height 170 cm Height 67 in Weight 84 kg Weight 184.8 lb BMI 29.07 Medications What How Much When Instructions Unchanged amlodipine (amLODIPine 5 mg Tab) 1 Tablets By Mouth Every day Contact prescribing physician if questions or concerns Unchanged aspirin (aspirin 81 mg Oral EC Tab) 1 Tablets By Mouth Every day Contact prescribing physician if questions or concerns Unchanged cilostazol (cilostazol 100 mg Tab) 1 Tablets By Mouth 2 times a day Contact prescribing physician if questions or concerns Unchanged clonazepam (Klonopin 0.5 mg Tab) 1 Tablets By Mouth 2 times a day as needed for Anxiety Contact prescribing physician if questions or concerns Unchanged clopidogrel (clopidogrel 75 mg Tab) 14 EA, take 1 tablet by mouth every morning Contact prescribing physician if questions or concerns Unchanged cyanocobalamin (Vitamin B12 1000 mcg Tab) 1 Tablets By Mouth Every day Contact prescribing physician if questions or concerns Unchanged dapagliflozin (Farxiga 5 mg oral tablet) 1 Tablets By Mouth Every day Contact prescribing physician if questions or concerns Unchanged ferrous sulfate (ferrous sulfate 325 mg oral enteric coated tablet) 1 Tablets By Mouth 2 times a day Contact prescribing physician if questions or concerns Unchanged fluticasone nasal (Flonase 0.05 mg/ inh nasal spray) 2 Sprays Nasal Inhalation Every day Contact prescribing physician if questions or concerns Unchanged gabapentin (gabapentin 400 mg Cap) as directed Contact prescribing physician if questions or concerns Unchanged metformin (metformin 1000 mg oral tablet) 1 Tablets By Mouth 2 times a day Contact prescribing physician if questions or concerns Unchanged metoprolol (Metoprolol tartrate 50 mg Tab) 1 Tablets By Mouth 2 times a day Contact prescribing physician if questions or concerns Unchanged pioglitazone (pioglitazone 30 mg Tab) 1 Tablets By Mouth Every day Contact prescribing physician if questions or concerns Unchanged sertraline (Zoloft 50 mg Tab) 1 Tablets By Mouth Every day Contact prescribing physician if questions or concerns Unchanged simvastatin (simvastatin 20 mg Tab) 1 Tablets By Mouth Once a day (at bedtime) Contact prescribing physician if questions or concerns Unchanged tamsulosin (Flomax 0.4 mg Cap) 1 Capsules By Mouth Every day Contact prescribing physician if questions or concerns Allergies Ceclor (Itching) Cipro (Itching) Victoza (Itching) penicillin (Itching) Problems Ongoing - Any problem that you are currently receiving treatment for. BMI 29.0-29.9,adult BPH (benign prostatic hyperplasia) Bradycardia Diabetes Diabetic neuropathy Diabetic retinopathy Diastolic dysfunction Hearing loss HTN (hypertension) Hyperlipidemia Inflamed sebaceous cyst Iron deficiency anemia Lumbar radiculopathy Mass of adrenal gland Obesity PAD (peripheral artery disease) Panic disorder PVCs (premature ventricular contractions) Seasonal allergies Tobacco user Vitamin B12 deficiency Normal [facility] Physician Referralon 022 Physician Referral [id number] #1.00CD:127 Normal [facility] CBC AUTO DIFFon 06-14-2022 BASO # 0.0 103/ul Normal 0.0-0.1 [facility] Comment on above: Performed By: #### C VDTB #### [facility] [address] [place] [address] Dr. Lucho De León Basophils/100 WBC (Bld) 0.4 % Normal 0.2-2.0 [facility] Comment on above: Performed By: #### C VDTBH #### [facility] [address] [address] [address] Lucho De León EO # 0.1 103/ul Normal 0.0-0.7 [facility] Comment on above: Performed By: #### C VDTBH #### [facility] [address] [place] [address] Dr. Lucho De León Eosinophils/100 WBC (Bld) 1.6 % Normal 0.9-7.0 [facility] Comment on above: Performed By: #### C VDTBH #### [facility] [address] [place] [address] Dr. Lucho De León Erythrocyte distribution width (RBC) [Ratio] 16.1 % Critically high 11.0-15.0 [facility] Comment on above: Performed By: #### C VDTBH #### [facility] [address] [place] [address] Dr. Lucho De León Hematocrit (Bld) [Volume fraction] 51.3 % Normal 42.0-54.0 [facility] Comment on above: Performed By: #### C VDTBH #### [facility] [address] [place] [address] Dr. Lucho De León Hemoglobin (Bld) [Mass/Vol] 16.9 g/dL Normal 14.0-18.0 [facility] Comment on above: Performed By: #### C VDTBH #### [facility] [address] [place] [address] Dr. Lucho De León IG # 0.02 10e3/ul Normal 0.00-0.03 [facility] Comment on above: Performed By: #### C VDTBH #### [facility] [address] [place] [address] Dr. Lucho De eLón IG % 0.3 % Normal 0.0-0.5 [facility] Comment on above: Performed By: #### C VDTBH #### [facility] [address] [place] [address] Dr. Lucho De León LYMPH # 1.6 103/ul Normal 1.2-3.8 [facility] Comment on above: Performed By: #### C VDTBH #### [facility] [address] [place] [address] Dr. Lucho De León Lymphocytes/100 WBC (Bld) 21.6 % Normal 20.5-60.0 [facility] Comment on above: Performed By: #### C VDTBH #### [facility] [address] [place] [address] Dr. Lucho De León MANUAL DIFF REQ NO Normal [facility] Comment on above: Performed By: #### C VDTBH #### [facility] [address] [place] [address] Dr. Lucho De León MCH (RBC) [Entitic mass] 29.3 pg Normal 25.9-34.0 [facility] Comment on above: Performed By: #### C VDTBH #### [facility] [address] [place] [address] Dr. Lucho De León MCHC (RBC) [Mass/Vol] 32.9 g/dL Normal 29.9-35.2 [facility] Comment on above: Performed By: #### C VDTBH #### [facility] [address] [place] [address] Dr. Lucho De León MCV (RBC) [Entitic vol] 89.1 fL Normal 80.0-94.0 [facility] Comment on above: Performed By: #### C VDTBH #### [facility] [address] [place] [address] Dr. Lucho De León MONO # 0.6 103/ul Normal 0.3-0.8 [facility] Comment on above: Performed By: #### C VDTBH #### [facility] [address] [place] [address] Dr. Lucho De León Monocytes/100 WBC (Bld) 8.6 % Normal 1.7-12.0 [facility] Comment on above: Performed By: #### C VDTBH #### [facility] [address] [place] [address] Dr. Lucho De León NEUT # 5.0 103/ul Normal 1.4-6.5 [facility] Comment on above: Performed By: #### C VDTBH #### [facility] [address] [place] [address] Dr. Lucho De León Neutrophils/100 WBC (Bld) 67.5 % Normal 43.0-75.0 [facility] Comment on above: Performed By: #### C VDTBH #### [facility] [address] [place] [address] Dr. Lucho De León Platelet mean volume (Bld) [Entitic vol] 10.3 fL Normal 9.5-13.5 [facility] Comment on above: Performed By: #### C VDTBH #### [facility] [address] [place] [address] Dr. Lucho De León PLT 218 103/ul Normal 150-450 [facility] Comment on above: Performed By: #### C VDTBH #### [facility] [address] [place] [address] Dr. Lucho De León RBC 5.76 106/ul Normal 4.70-6.10 [facility] Comment on above: Performed By: #### C VDTBH #### [facility] [address] [place] [address] Dr. Lucho De León WBC 7.5 103/ul Normal 4.0-11.0 [facility] Comment on above: Performed By: #### C VDTBH #### [facility] [address] [place] [address] Dr. Lucho De León GLYCOHEMOGLOBIN A1Con 2021 ADA RECOMMENDATION SEE BELOW Normal [facility] Comment on above: Result Comment: ADA RECOMMENDED LIMIT 4.0 - 6.0 ADA THERAPEUTIC TARGET < 7.0 ACTION SUGGESTED > 7.0 Performed By: #### A 1C #### [facility] [address] [place] [address] Dr. Lucho De León Glucose [Mass/Vol] 177 mg/dL Normal [facility] Comment on above: Performed By: #### A 1C #### [facility] [address] [place] [address] Dr. Lucho De León HbA1c (Bld) [Mass fraction] 7.8 % Critically high 4.5-6.2 [facility] Comment on above: Performed By: #### A 1C #### [facility] [address] [place] [address] Dr. Lucho De León IRONon 06-14-2022 Iron [Mass/Vol] 50.0 ug/dL Critically low 65.0-175.0 [facility] Comment on above: Performed By: #### C BC #### [facility] [address] [place] [address] Dr. Lucho De León PROF 14(COMP METB)on 022 Albumin [Mass/Vol] 3.8 g/dL Normal 3.4-5.0 [facility] Comment on above: Performed By: #### H GBHCT #### [facility] [address] [address] [address] Lucho De León Albumin/Globulin [Mass ratio] 0.9 {ratio} Normal [facility] Comment on above: Performed By: #### H GBHCT #### [facility] [address] [address] [address] Lucho De León ALP [Catalytic activity/Vol] 95 U/L Normal 46-116 [facility] Comment on above: Performed By: #### H GBHCT #### [facility] [address] [address] [address] Lucho De León ALT [Catalytic activity/Vol] 19 U/L Normal 16-63 [facility] Comment on above: Performed By: #### H GBHCT #### [facility] [address] [address] [address] Lucho De León Anion gap [Moles/Vol] 12.2 mmol/L Normal [facility] Comment on above: Performed By: #### H GBHCT #### [facility] [address] [address] [address] Lucho De León AST [Catalytic activity/Vol] 11 U/L Critically low 15-37 [facility] Comment on above: Performed By: #### H GBHCT #### [facility] [address] [address] [address] Lucho De León Bilirubin [Mass/Vol] 0.3 mg/dL Normal 0.2-1.0 [facility] Comment on above: Performed By: #### H GBHCT #### [facility] [address] [address] [address] Lucho De León Calcium [Mass/Vol] 9.6 mg/dL Normal 8.5-10.1 [facility] Comment on above: Performed By: #### H GBHCT #### [facility] [address] [address] [address] Lucho De León Chloride [Moles/Vol] 103 mmol/L Normal 98-107 [facility] Comment on above: Performed By: #### H GBHCT #### [facility] [address] [address] [address] Lucho De León CO2 [Moles/Vol] 29.4 mmol/L Normal 21.0-32.0 [facility] Comment on above: Performed By: #### H GBHCT #### [facility] [address] [address] [address] Lucho De León Creatinine [Mass/Vol] 0.80 mg/dL Normal 0.70-1.30 [facility] Comment on above: Performed By: #### H GBHCT #### [facility] [address] [address] [address] Lucho De León EGFR-AF GABONESE >60 Normal >=60 [facility] Comment on above: Performed By: #### H GBHCT #### [facility] [address] [address] [address] Lucho De León EGFR-NON AF GABONESE >60 Normal >=60 [facility] Comment on above: Performed By: #### H GBHCT #### [facility] [address] [address] [address] Lucho De León Globulin (S) [Mass/Vol] 4.0 g/dL Normal [facility] Comment on above: Performed By: #### H GBHCT #### [facility] [address] [address] [address] Lucho De León Glucose [Mass/Vol] 202 mg/dL Critically high 74-106 [facility] Comment on above: Performed By: #### H GBHCT #### [facility] [address] [address] [address] Lucho De León Potassium [Moles/Vol] 4.6 mmol/L Normal 3.5-5.1 [facility] Comment on above: Performed By: #### H GBHCT #### [facility] [address] [address] [address] Lucho De León Protein [Mass/Vol] 7.8 g/dL Normal 6.4-8.2 [facility] Comment on above: Performed By: #### H GBHCT #### [facility] [address] [address] [address] Lucho De León Sodium [Moles/Vol] 140 mmol/L Normal 136-145 [facility] Comment on above: Performed By: #### H GBHCT #### [facility] [address] [address] [address] Lucho De León Urea nitrogen [Mass/Vol] 15.0 mg/dL Normal 7.0-18.0 [facility] Comment on above: Performed By: #### H GBHCT #### [facility] [address] [place] [address] Dr. Lucho De León Urea nitrogen/Creatinine [Mass ratio] 18.8 mg/mg Normal [facility] Comment on above: Performed By: #### H GBHCT #### [facility] [address] [place] [address] Dr. Lucho De León NM STRESS/REST MULTIon 04-27 NM STRESS/REST MULTI Patient: TERRI THACKER Exam Date: 04/27/2022 : 1950 Gender:M Ordering : OLI TONYAVasile [employer] Admission #: [id number] Family : Order #: [id number] CLICK HERE TO VIEW EXAM RADIOLOGY REPORT PROCEDURE: RADIONUCLIDE IMAGING STRESS/REST MULTI COMPARISON: None. INDICATIONS: ECG: premature ventricular contractions, hypertension TECHNIQUE: Exam Description: Stress/Rest one day protocol gated SPECT Rest Imagin.6 mCi Tc-99m Cardiolite IV on 04/27/2022 Stress Imaging 30.7 mCi Tc-99m Cardiolite IV on 04/27/2022 Exercise Protocol: 0.4 mg Lexiscan given IV Heart Rate (bpm): Rest: 87 Max: 102 PMHR: 68 Blood Pressure: Rest: 162/84 Max: 168/76 Symptoms: Rest and peak stress ECG findings were normal and the exercise portion of the study was normal per attending physician Dr. Prieto . For more details please see separate cardiac stress test report. FINDINGS: QUALITY OF STUDY: PERFUSION DEFECT: LOCATION: Mid-inferior. Apical inferior. [place]. SIZE: Medium (3-4 segments). SEVERITY: Mild. TYPE: Persistent. WALL MOTION: Normal. LV SIZE: Normal. 85 mL. TID / TCD: None; 1.0 LVEF: Normal. Calculated EF 78%. SUMMARY: Myocardial perfusion imaging study has ABNORMAL findings. CONCLUSION: 1. Small fixed defect in the inferior wall extending to the apex, primarily RCA distribution 2. No reversible ischemia 3. Normal exercise test Dictated by: Bindu Waggoner MD on 04/28/2022 at 07:47 Approved by: Bindu Waggoner MD on 04/28/2022 at 08:01 Normal [facility] CBC AUTO DIFFon 04-14-2022 BASO # 0.0 103/ul Normal 0.0-0.1 [facility] Comment on above: Performed By: #### A 1C #### [facility] [address] [place] [address] Dr. Lucho De León Basophils/100 WBC (Bld) 0.5 % Normal 0.2-2.0 [facility] Comment on above: Performed By: #### A 1C #### [facility] [address] [place] [address] Dr. Lucho De León EO # 0.1 103/ul Normal 0.0-0.7 [facility] Comment on above: Performed By: #### A 1C #### [facility] [address] [place] [address] Dr. Lucho De León Eosinophils/100 WBC (Bld) 2.0 % Normal 0.9-7.0 [facility] Comment on above: Performed By: #### A 1C #### [facility] [address] [place] [address] Dr. Lucho De León Erythrocyte distribution width (RBC) [Ratio] 15.0 % Normal 11.0-15.0 [facility] Comment on above: Performed By: #### A 1C #### [facility] [address] [place] [address] Dr. Lucho De León Hematocrit (Bld) [Volume fraction] 39.1 % Critically low 42.0-54.0 [facility] Comment on above: Performed By: #### A 1C #### [facility] [address] [place] [address] Dr. Lucho De León Hemoglobin (Bld) [Mass/Vol] 12.5 g/dL Critically low 14.0-18.0 [facility] Comment on above: Performed By: #### A 1C #### [facility] [address] [place] [address] Dr. Lucho De León IG # 0.02 10e3/ul Normal 0.00-0.03 [facility] Comment on above: Performed By: #### A 1C #### [facility] [address] [place] [address] Dr. Lucho De León IG % 0.4 % Normal 0.0-0.5 [facility] Comment on above: Performed By: #### A 1C #### [facility] [address] [place] [address] Dr. Lucho De León LYMPH # 1.7 103/ul Normal 1.2-3.8 [facility] Comment on above: Performed By: #### A 1C #### [facility] [address] [place] [address] Dr. Lucho De León Lymphocytes/100 WBC (Bld) 30.7 % Normal 20.5-60.0 [facility] Comment on above: Performed By: #### A 1C #### [facility] [address] [place] [address] Dr. Lucho De León MANUAL DIFF REQ NO Normal [facility] Comment on above: Performed By: #### A 1C #### [facility] [address] [place] [address] Dr. Lucho De León MCH (RBC) [Entitic mass] 29.7 pg Normal 25.9-34.0 [facility] Comment on above: Performed By: #### A 1C #### [facility] [address] [place] [address] Dr. Lucho De León MCHC (RBC) [Mass/Vol] 32.0 g/dL Normal 29.9-35.2 [facility] Comment on above: Performed By: #### A 1C #### [facility] [address] [address] [address] Lucho De León MCV (RBC) [Entitic vol] 92.9 fL Normal 80.0-94.0 [facility] Comment on above: Performed By: #### A 1C #### [facility] [address] [address] [address] Lucho De León MONO # 0.5 103/ul Normal 0.3-0.8 [facility] Comment on above: Performed By: #### A 1C #### [facility] [address] [address] [address] Lucho De León Monocytes/100 WBC (Bld) 9.6 % Normal 1.7-12.0 [facility] Comment on above: Performed By: #### A 1C #### [facility] [address] [address] [address] Lucho De León NEUT # 3.2 103/ul Normal 1.4-6.5 [facility] Comment on above: Performed By: #### A 1C #### [facility] [address] [address] [address] Lucho De León Neutrophils/100 WBC (Bld) 56.8 % Normal 43.0-75.0 [facility] Comment on above: Performed By: #### A 1C #### [facility] [address] [address] [address] Lucho De León Platelet mean volume (Bld) [Entitic vol] 9.2 fL Critically low 9.5-13.5 [facility] Comment on above: Performed By: #### A 1C #### [facility] [address] [address] [address] Lucho De León PLT 317 103/ul Normal 150-450 [facility] Comment on above: Performed By: #### A 1C #### [facility] [address] [address] [address] Lucho De León RBC 4.21 106/ul Critically low 4.70-6.10 [facility] Comment on above: Performed By: #### A 1C #### [facility] [id number] Lucho De León WBC 5.6 103/ul Normal 4.0-11.0 [facility] Comment on above: Performed By: #### A 1C #### [facility] [address], [place] [address] Dr. Lucho De León ECHOCARDIO M/2D COMPLETEon 0 04-14-2022 ECHOCARDIO M/2D COMPLETE Patient: TERRI THACKER Exam Date: 04/14/2022 : 1950 Gender:M Ordering : OLI TONYA DYE [facility] Admission #: [id number] Family : Order #: [id number] CLICK HERE TO VIEW EXAM ECHOCARDIOGRAM REPORT PROCEDURE: CARDIO PULMONARY ECHOCARDIO M/2D COMP INDICATIONS: Frequent PVCs, PAD, HTN COMPARISON: None. DESCRIPTION: COMPLETE ECHOCARDIOGRAM Real-time transthoracic echocardiography with 2D, M-mode, spectral and color flow Doppler performed. QUALITY: Technical quality was adequate. LEFT VENTRICLE: Normal chamber size. Mild concentric left ventricular hypertrophy. Global left ventricular systolic function is normal. LV EF: Visual estimation of left ventricular ejection fraction is 65%. DIASTOLIC: Grade I diastolic dysfunction. ATRIAL SEPTUM: LEFT ATRIUM: Normal chamber size. RIGHT ATRIUM: Mild dilatation. RIGHT VENTRICLE: Normal chamber size. Normal right ventricular systolic function. TRICUSPID VALVE: Normal mobility and thickness. No stenosis with trivial regurgitation. No evidence of pulmonary hypertension. RVSP 24 mmHg. MITRAL VALVE: Normal mobility and thickness. No mitral valve prolapse. No evidence of mitral valve stenosis. Mild mitral annular calcification. Trivial mitral regurgitation. AORTIC VALVE: Normal trileaflet appearance. Mildly calcified aortic valve. Mildly diminished mobility. Doppler velocity suggest mild aortic valve stenosis. Calculated valve area is 1.5 cm?. DVI 0.5. No aortic regurgitation. AORTIC ROOT: Normal diameter and appearance. PULMONIC VALVE: Grossly normal. No stenosis. No regurgitation. PERICARDIUM: No evidence of pericardial effusion. IVC: Collapses with inspirations. Normal size. PLEURA: CONCLUSION: 1. Normal ventricular systolic function. LVEF is 65%. 2. Mild concentric hypertrophy. 3. Grade 1 diastolic dysfunction. 4. Mild aortic valve stenosis. 5. Normal right-sided pressures. 6. No pericardial effusion. Dictated by: Laurent Galindo M.D. on 04/14/2022 at 17:50 Approved by: Laurent Galindo M.D. on 04/14/2022 at 17:53 Normal [facility] PRBC LEUKOREDUCEDon 04-14-20 ABO and Rh group Nom (Bld) Cross Match Result Compatible Unit Blood Type O Pos Unit Number [id number] Status Information Transfused Product ID Red Blood Cells Product Code [id number] Cross Match Result Compatible Unit Blood Type O Pos Unit Number [id number] Status Information Transfused Product ID Red Blood Cells Product Code [id number] Normal [facility] Comment on above: Performed By: #### P RBC #### [facility] [address] [place] [address] Dr. Lucho De León PRBC LEUKOREDUCED Cross Match Result Compatible Unit Blood Type O Pos Unit Number [id number] Status Information Transfused Product ID Red Blood Cells Product Code [id number] Normal [facility] Comment on above: Performed By: #### P RBC #### [facility] [address] [place] [address] Dr. Lucho De León PRBC LEUKOREDUCED Cross Match Result Compatible Unit Blood Type O Pos Unit Number [id number] Status Information Transfused Product ID Red Blood Cells Product Code [id number] [facility] Comment on above: Performed By: #### P RBC #### [facility] [address] [place] [address] Dr. Lucho De León CBC AUTO DIFFon 04-06-2022 BASO # 0.0 103/ul Normal 0.0-0.1 [facility] Comment on above: Performed By: #### C BC #### [facility] [address] [place] [address] Dr. Lucho De León Basophils/100 WBC (Bld) 0.4 % Normal 0.2-2.0 [facility] Comment on above: Performed By: #### C BC #### [facility] [address] [place] [address] Dr. Lucho De León EO # 0.1 103/ul Normal 0.0-0.7 [facility] Comment on above: Performed By: #### C BC #### [facility] [address] [place] [address] Dr. Lucho De León Eosinophils/100 WBC (Bld) 1.4 % Normal 0.9-7.0 [facility] Comment on above: Performed By: #### C BC #### [facility] [address] [place] [address] Dr. Lucho De León Erythrocyte distribution width (RBC) [Ratio] 16.3 % Critically high 11.0-15.0 [facility] Comment on above: Performed By: #### C BC #### [facility] [address] [place] [address] Dr. Lucho De León Hematocrit (Bld) [Volume fraction] 36.2 % Critically low 42.0-54.0 [facility] Comment on above: Performed By: #### C BC #### [facility] [address] [place] [address] Dr. Lucho De León Hemoglobin (Bld) [Mass/Vol] 11.3 g/dL Critically low 14.0-18.0 [facility] Comment on above: Performed By: #### C BC #### [facility] [address] [place] [address] Dr. Lucho De León IG # 0.04 10e3/ul Critically high 0.00-0.03 [facility] Comment on above: Performed By: #### C BC #### [facility] [address] [place] [address] Dr. Lucho De León IG % 0.5 % Normal 0.0-0.5 [facility] Comment on above: Performed By: #### C BC #### [facility] [address] [place] [address] Dr. Lucho De León LYMPH # 2.0 103/ul Normal 1.2-3.8 [facility] Comment on above: Performed By: #### C BC #### [facility] [address] [place] [address] Dr. Lucho De León Lymphocytes/100 WBC (Bld) 26.7 % Normal 20.5-60.0 [facility] Comment on above: Performed By: #### C BC #### [facility] [address] [place] [address] Dr. Lucho De León MANUAL DIFF REQ NO Normal [facility] Comment on above: Performed By: #### C BC #### [facility] [address] [place] [address] Dr. Lucho De León MCH (RBC) [Entitic mass] 29.7 pg Normal 25.9-34.0 [facility] Comment on above: Performed By: #### C BC #### [facility] [address] [place] [address] Dr. Lucho De León MCHC (RBC) [Mass/Vol] 31.2 g/dL Normal 29.9-35.2 [facility] Comment on above: Performed By: #### C BC #### [facility] [address] [place] [address] Dr. Lucho De León MCV (RBC) [Entitic vol] 95.3 fL Critically high 80.0-94.0 [facility] Comment on above: Performed By: #### C BC #### [facility] [address] [place] [address] Dr. Lucho De León MONO # 0.9 103/ul Critically high 0.3-0.8 [facility] Comment on above: Performed By: #### C BC #### [facility] [address] [place] [address] Dr. Lucho De León Monocytes/100 WBC (Bld) 11.8 % Normal 1.7-12.0 [facility] Comment on above: Performed By: #### C BC #### [facility] [address] [place] [address] Dr. Lucho De León NEUT # 4.3 103/ul Normal 1.4-6.5 [facility] Comment on above: Performed By: #### C BC #### [facility] [address] [place] [address] Dr. Lucho De León Neutrophils/100 WBC (Bld) 59.2 % Normal 43.0-75.0 [facility] Comment on above: Performed By: #### C BC #### [facility] [address] [place] [address] Dr. Lucho De León Platelet mean volume (Bld) [Entitic vol] 9.1 fL Critically low 9.5-13.5 [facility] Comment on above: Performed By: #### C BC #### [facility] [address] [place] [address] Dr. Lucho De León PLT 371 103/ul Normal 150-450 [facility] Comment on above: Performed By: #### C BC #### [facility] [address] [address] [address] Lucho De León RBC 3.80 106/ul Critically low 4.70-6.10 [facility] Comment on above: Performed By: #### C BC #### [facility] [address] [place] [address] Dr. Lucho De León WBC 7.3 103/ul Normal 4.0-11.0 [facility] Comment on above: Performed By: #### C BC #### [facility] [address] [place] [address] Dr. Lucho De León PROF CHEM 8 (BAS METB)on Anion gap [Moles/Vol] 12.4 mmol/L Normal [facility] Comment on above: Performed By: #### A 1C #### [facility] [address] [place] [address] Dr. Lucho De León Calcium [Mass/Vol] 9.3 mg/dL Normal 8.5-10.1 [facility] Comment on above: Performed By: #### A 1C #### [facility] [address] [place] [address] Dr. Lucho De León Chloride [Moles/Vol] 104 mmol/L Normal 98-107 [facility] Comment on above: Performed By: #### A 1C #### [facility] [address] [place] [address] Dr. Lucho De León CO2 [Moles/Vol] 24.6 mmol/L Normal 21.0-32.0 [facility] Comment on above: Performed By: #### A 1C #### [facility] [address] [place] [address] Dr. Lucho De León Creatinine [Mass/Vol] 0.67 mg/dL Critically low 0.70-1.30 [facility] Comment on above: Performed By: #### A 1C #### [facility] [address] [place] [address] Dr. Lucho De León EGFR-AF GABONESE >60 Normal >=60 [facility] Comment on above: Performed By: #### A 1C #### [facility] [address] [place] [address] Dr. Lucho De León EGFR-NON AF GABONESE >60 Normal >=60 [facility] Comment on above: Performed By: #### A 1C #### [facility] [address] [place] [address] Dr. Lucho De León Glucose [Mass/Vol] 144 mg/dL Critically high 74-106 [facility] Comment on above: Performed By: #### A 1C #### [facility] [address] [place] [address] Dr. Lucho De León Potassium [Moles/Vol] 5.0 mmol/L Normal 3.5-5.1 [facility] Comment on above: Performed By: #### A 1C #### [facility] [address] [place] [address] Dr. Lucho De León Sodium [Moles/Vol] 136 mmol/L Normal 136-145 [facility] Comment on above: Performed By: #### A 1C #### [facility] [address] [place] [address] Dr. Lucho De León Urea nitrogen [Mass/Vol] 12.0 mg/dL Normal 7.0-18.0 [facility] Comment on above: Performed By: #### A 1C #### [facility] [address] [place] [address] Dr. Lucho De León Urea nitrogen/Creatinine [Mass ratio] 17.9 mg/mg Normal [facility] Comment on above: Performed By: #### A 1C #### [facility] [address] [place] [address] Dr. Lucho De León CBC AUTO DIFFon 03-30-2022 BASO # 0.0 103/ul Normal 0.0-0.1 [facility] Comment on above: Performed By: #### C BC #### [facility] [address] [place] [address] Dr. Lucho De León Basophils/100 WBC (Bld) 0.2 % Normal 0.2-2.0 [facility] Comment on above: Performed By: #### C BC #### [facility] [address] [place] [address] Dr. Lucho De León EO # 0.1 103/ul Normal 0.0-0.7 [facility] Comment on above: Performed By: #### C BC #### [facility] [address] [place] [address] Dr. Lucho De León Eosinophils/100 WBC (Bld) 0.9 % Normal 0.9-7.0 [facility] Comment on above: Performed By: #### C BC #### [facility] [address] [place] [address] Dr. Lucho De León Erythrocyte distribution width (RBC) [Ratio] 16.9 % Critically high 11.0-15.0 [facility] Comment on above: Performed By: #### C BC #### [facility] [address] [place] [address] Dr. Lucho De León Hematocrit (Bld) [Volume fraction] 29.9 % Critically low 42.0-54.0 [facility] Comment on above: Performed By: #### C BC #### [facility] [address] [place] [address] Dr. Lucho De León Hemoglobin (Bld) [Mass/Vol] 10.1 g/dL Critically low 14.0-18.0 [facility] Comment on above: Performed By: #### C BC #### [facility] [address] [place] [address] Dr. Lucho De León IG # 0.10 10e3/ul Critically high 0.00-0.03 [facility] Comment on above: Performed By: #### C BC #### [facility] [address] [place] [address] Dr. Lucho De León IG % 0.9 % Critically high 0.0-0.5 [facility] Comment on above: Performed By: #### C BC #### [facility] [address] [place] [address] Dr. Lucho De León LYMPH # 2.0 103/ul Normal 1.2-3.8 [facility] Comment on above: Performed By: #### C BC #### [facility] [address] [place] [address] Dr. Lucho De León Lymphocytes/100 WBC (Bld) 18.3 % Critically low 20.5-60.0 [facility] Comment on above: Performed By: #### C BC #### [facility] [address] [place] [address] Dr. Lucho De León MANUAL DIFF REQ NO Normal [facility] Comment on above: Performed By: #### C BC #### [facility] [address] [place] [address] Dr. Lucho De León MCH (RBC) [Entitic mass] 30.6 pg Normal 25.9-34.0 [facility] Comment on above: Performed By: #### C BC #### [facility] [address] [place] [address] Dr. Lucho De León MCHC (RBC) [Mass/Vol] 33.8 g/dL Normal 29.9-35.2 [facility] Comment on above: Performed By: #### C BC #### [facility] [address] [place] [address] Dr. Lucho De León MCV (RBC) [Entitic vol] 90.6 fL Normal 80.0-94.0 [facility] Comment on above: Performed By: #### C BC #### [facility] [address] [place] [address] Dr. Lucho De León MONO # 0.9 103/ul Critically high 0.3-0.8 [facility] Comment on above: Performed By: #### C BC #### [facility] [address] [place] [address] Dr. Lucho De León Monocytes/100 WBC (Bld) 8.2 % Normal 1.7-12.0 [facility] Comment on above: Performed By: #### C BC #### [facility] [address] [address] [address] Lucho De León NEUT # 8.0 103/ul Critically high 1.4-6.5 [facility] Comment on above: Performed By: #### C BC #### [facility] [address] [address] [address] Lucho De León Neutrophils/100 WBC (Bld) 71.5 % Normal 43.0-75.0 [facility] Comment on above: Performed By: #### C BC #### [facility] [address] [address] [address] Lucho De León Platelet mean volume (Bld) [Entitic vol] 9.7 fL Normal 9.5-13.5 [facility] Comment on above: Performed By: #### C BC #### [facility] [address] [place] [address] Dr. Lucho De León PLT 195 103/ul Normal 150-450 [facility] Comment on above: Performed By: #### C BC #### [facility] [address] [address] [address] Lucho De León RBC 3.30 106/ul Critically low 4.70-6.10 [facility] Comment on above: Performed By: #### C BC #### [facility] [address] [address] [address] Lucho De León WBC 11.1 103/ul Critically high 4.0-11.0 [facility] Comment on above: Performed By: #### C BC #### [facility] [address] [address] [address] Lucho De León PROF CHEM 8 (BAS METB)on Anion gap [Moles/Vol] 11.8 mmol/L Normal [facility] Comment on above: Performed By: #### C BC #### [facility] [address] [address] [address] Lucho De León Calcium [Mass/Vol] 8.5 mg/dL Normal 8.5-10.1 [facility] Comment on above: Performed By: #### C BC #### [facility] [address] [address] [address] Lucho De León Chloride [Moles/Vol] 103 mmol/L Normal 98-107 [facility] Comment on above: Performed By: #### C BC #### [facility] [address] [address] [address] Lucho De León CO2 [Moles/Vol] 25.8 mmol/L Normal 21.0-32.0 [facility] Comment on above: Performed By: #### C BC #### [facility] [address] [address] [address] Lucho De León Creatinine [Mass/Vol] 0.56 mg/dL Critically low 0.70-1.30 [facility] Comment on above: Performed By: #### C BC #### [facility] [address] [address] [address] Lucho De León EGFR-AF GABONESE >60 Normal >=60 [facility] Comment on above: Performed By: #### C BC #### [facility] [address] [address] [address] Lucho De León EGFR-NON AF GABONESE >60 Normal >=60 [facility] Comment on above: Performed By: #### C BC #### [facility] [address] [address] [address] Lucho De [place] Glucose [Mass/Vol] 166 mg/dL Critically high 74-106 [facility] Comment on above: Performed By: #### C BC #### [facility] [address] [address] [address] Lucho De León Potassium [Moles/Vol] 3.6 mmol/L Normal 3.5-5.1 [facility] Comment on above: Performed By: #### C BC #### [facility] [address] [address] [address] Lucho De León Sodium [Moles/Vol] 137 mmol/L Normal 136-145 [facility] Comment on above: Performed By: #### C BC #### [facility] [address] [place] [address] Dr. Lucho De León Urea nitrogen [Mass/Vol] 6.0 mg/dL Critically low 7.0-18.0 [facility] Comment on above: Performed By: #### C BC #### [facility] [address] [place] [address] Dr. Lucho De León Urea nitrogen/Creatinine [Mass ratio] 10.7 mg/mg Normal [facility] Comment on above: Performed By: #### C BC #### [facility] [address] [place] [address] Dr. Lucho De León CBC AUTO DIFFon 03-29-2022 BASO # 0.0 103/ul Normal 0.0-0.1 [facility] Comment on above: Performed By: #### A 1C #### [facility] [address] [place] [address] Dr. Lucho De León Basophils/100 WBC (Bld) 0.3 % Normal 0.2-2.0 [facility] Comment on above: Performed By: #### A 1C #### [facility] [address] [place] [address] Dr. Lucho De León EO # 0.1 103/ul Normal 0.0-0.7 [facility] Comment on above: Performed By: #### A 1C #### [facility] [address] [place] [address] Dr. Lucho De León Eosinophils/100 WBC (Bld) 0.8 % Critically low 0.9-7.0 [facility] Comment on above: Performed By: #### A 1C #### [facility] [address] [place] [address] Dr. Lucho De León Erythrocyte distribution width (RBC) [Ratio] 16.9 % Critically high 11.0-15.0 [facility] Comment on above: Performed By: #### A 1C #### [facility] [address] [place] [address] Dr. Lucho De León Hematocrit (Bld) [Volume fraction] 23.0 % Critically low 42.0-54.0 [facility] Comment on above: Performed By: #### A 1C #### [facility] [address] [address] [address] Lucho De León Hemoglobin (Bld) [Mass/Vol] 7.6 g/dL Critically low 14.0-18.0 [facility] Comment on above: Performed By: #### A 1C #### [facility] [address] [address] [address] Lucho De León IG # 0.10 10e3/ul Critically high 0.00-0.03 [facility] Comment on above: Performed By: #### A 1C #### [facility] [address] [place] [address] Dr. Lucho De León IG % 1.3 % Critically high 0.0-0.5 [facility] Comment on above: Performed By: #### A 1C #### [facility] [address] [place] [address] Dr. Lucho De León LYMPH # 2.4 103/ul Normal 1.2-3.8 [facility] Comment on above: Performed By: #### A 1C #### [facility] [address] [place] [address] Dr. Lucho De León Lymphocytes/100 WBC (Bld) 32.1 % Normal 20.5-60.0 [facility] Comment on above: Performed By: #### A 1C #### [facility] [address] [place] [address] Dr. Lucho De León MANUAL DIFF REQ NO Normal [facility] Comment on above: Performed By: #### A 1C #### [facility] [address] [place] [address] Dr. Lucho De León MCH (RBC) [Entitic mass] 30.9 pg Normal 25.9-34.0 [facility] Comment on above: Performed By: #### A 1C #### [facility] [address] [place] [address] Dr. Lucho De León MCHC (RBC) [Mass/Vol] 33.0 g/dL Normal 29.9-35.2 [facility] Comment on above: Performed By: #### A 1C #### [facility] [address] [address] [address] Lucho De León MCV (RBC) [Entitic vol] 93.5 fL Normal 80.0-94.0 [facility] Comment on above: Performed By: #### A 1C #### [facility] [address] [address] [address] Lucho De León MONO # 0.8 103/ul Normal 0.3-0.8 [facility] Comment on above: Performed By: #### A 1C #### [facility] [address] [address] [address] Lucho De León Monocytes/100 WBC (Bld) 11.3 % Normal 1.7-12.0 [facility] Comment on above: Performed By: #### A 1C #### [facility] [address] [place] [address] Dr. Lucho De León NEUT # 4.0 103/ul Normal 1.4-6.5 [facility] Comment on above: Performed By: #### A 1C #### [facility] [address] [place] [address] Dr. Lucho De León Neutrophils/100 WBC (Bld) 54.2 % Normal 43.0-75.0 [facility] Comment on above: Performed By: #### A 1C #### [facility] [address] [place] [address] Dr. Lucho De León Platelet mean volume (Bld) [Entitic vol] 9.7 fL Normal 9.5-13.5 [facility] Comment on above: Performed By: #### A 1C #### [facility] [address] [place] [address] Dr. Lucho De León PLT 155 103/ul Normal 150-450 [facility] Comment on above: Performed By: #### A 1C #### [facility] [address] [place] [address] Dr. Lucho De León RBC 2.46 106/ul Critically low 4.70-6.10 [facility] Comment on above: Performed By: #### A 1C #### [facility] [address] [place] [address] Dr. Lucho De León WBC 7.4 103/ul Normal 4.0-11.0 [facility] Comment on above: Performed By: #### A 1C #### [facility] [address] [place] [address] Dr. Lucho De León HEMOGLOBIN AND HEMATOCRITon 03-29-2022 Hematocrit (Bld) [Volume fraction] 27.6 % Critically low 42.0-54.0 [facility] Comment on above: Performed By: #### A 1C #### [facility] [address] [place] [address] Dr. Lucho De León Hemoglobin (Bld) [Mass/Vol] 9.0 g/dL Critically low 14.0-18.0 [facility] Comment on above: Performed By: #### A 1C #### [facility] [address] [place] [address] Dr. Lucho De León POINT OF CARE GLUCOSEon 03-16 Glucose [Mass/Vol] 135 mg/dL Critically high [address] [place] [address] Comment on above: Performed By: #### M ALBR #### [facility] [address] [place] [address] Dr. Lucho De León Glucose [Mass/Vol] 159 mg/dL Critically high [address] [place] [address] Comment on above: Performed By: #### M ALBR #### [facility] [address] [place] [address] Dr. Lucho De León Glucose [Mass/Vol] 225 mg/dL Critically high [facility]106 [facility] Comment on above: Performed By: #### C VDTBH #### [facility] [address] [place] [address] Dr. Lucho De León Glucose [Mass/Vol] 181 mg/dL Critically high [facility]106 [facility] Comment on above: Performed By: #### P OCGLUC #### [facility] [address] [place] [address] Dr. Lucho De León PROF CHEM 8 (BAS METB)on Anion gap [Moles/Vol] 9.5 mmol/L Normal [facility] Comment on above: Performed By: #### A 1C #### [facility] [address] [address] [address] Lucho De León Calcium [Mass/Vol] 7.7 mg/dL Critically low 8.5-10.1 [facility] Comment on above: Performed By: #### A 1C #### [facility] [address] [address] [address] Lucho De León Chloride [Moles/Vol] 107 mmol/L Normal 98-107 [facility] Comment on above: Performed By: #### A 1C #### [facility] [address] [address] [address] Lucho De León CO2 [Moles/Vol] 23.7 mmol/L Normal 21.0-32.0 [facility] Comment on above: Performed By: #### A 1C #### [facility] [address] [address] [address] Lucho De León Creatinine [Mass/Vol] 0.58 mg/dL Critically low 0.70-1.30 [facility] Comment on above: Performed By: #### A 1C #### [facility] [address] [address] [address] Lucho De León EGFR-AF GABONESE >60 Normal >=60 [facility] Comment on above: Performed By: #### A 1C #### [facility] [address] [address] [address] Lucho De León EGFR-NON AF GABONESE >60 Normal >=60 [facility] Comment on above: Performed By: #### A 1C #### [facility] [address] [place] [address] Dr. Lucho De León Glucose [Mass/Vol] 125 mg/dL Critically high 74-106 [facility] Comment on above: Performed By: #### A 1C #### [facility] [address] [address] [address] Lucho De León Potassium [Moles/Vol] 4.2 mmol/L Normal 3.5-5.1 [facility] Comment on above: Performed By: #### A 1C #### [facility] [address] [place] [address] Dr. Lucho De León Sodium [Moles/Vol] 136 mmol/L Normal 136-145 [facility] Comment on above: Performed By: #### A 1C #### [facility] [address] [place] [address] Dr. Lucho De León Urea nitrogen [Mass/Vol] 15.0 mg/dL Normal 7.0-18.0 [facility] Comment on above: Performed By: #### A 1C #### [facility] [address] [place] [address] Dr. Lucho De León Urea nitrogen/Creatinine [Mass ratio] 25.9 mg/mg Normal [facility] Comment on above: Performed By: #### A 1C #### [facility] [address] [place] [address] Dr. Lucho De León CBC AUTO DIFFon 03-28-2022 BASO # 0.0 103/ul Normal 0.0-0.1 [facility] Comment on above: Performed By: #### B MP #### [facility] [address] [place] [address] Dr. Lucho De León Basophils/100 WBC (Bld) 0.3 % Normal 0.2-2.0 [facility] Comment on above: Performed By: #### B MP #### [facility] [address] [place] [address] Dr. Lucho De León EO # 0.0 103/ul Normal 0.0-0.7 [facility] Comment on above: Performed By: #### B MP #### [facility] [address] [place] [address] Dr. Lucho De León Eosinophils/100 WBC (Bld) 0.4 % Critically low 0.9-7.0 [facility] Comment on above: Performed By: #### B MP #### [facility] [address] [place] [address] Dr. Lucho De León Erythrocyte distribution width (RBC) [Ratio] 15.8 % Critically high 11.0-15.0 [facility] Comment on above: Performed By: #### B MP #### [facility] [address] [address] [address] Lucho De León Hematocrit (Bld) [Volume fraction] 23.6 % Critically low 42.0-54.0 [facility] Comment on above: Performed By: #### B MP #### [facility] [address] [place] [address] Dr. Lucho De León Hemoglobin (Bld) [Mass/Vol] 7.9 g/dL Critically low 14.0-18.0 [facility] Comment on above: Performed By: #### B MP #### [facility] [address] [address] [address] Lucho De León IG # 0.17 10e3/ul Critically high 0.00-0.03 [facility] Comment on above: Performed By: #### B MP #### [facility] [address] [place] [address] Dr. Lucho De León IG % 1.6 % Critically high 0.0-0.5 [facility] Comment on above: Performed By: #### B MP #### [facility] [address] [place] [address] Dr. Lucho De León LYMPH # 2.8 103/ul Normal 1.2-3.8 [facility] Comment on above: Performed By: #### B MP #### [facility] [address] [place] [address] Dr. Lucho De León Lymphocytes/100 WBC (Bld) 27.0 % Normal 20.5-60.0 [facility] Comment on above: Performed By: #### B MP #### [facility] [address] [place] [address] Dr. Lucho De León MANUAL DIFF REQ NO Normal [facility] Comment on above: Performed By: #### B MP #### [facility] [address] [place] [address] Dr. Lucho De León MCH (RBC) [Entitic mass] 30.3 pg Normal 25.9-34.0 [facility] Comment on above: Performed By: #### B MP #### [facility] [address] [place] [address] Dr. Lucho De León MCHC (RBC) [Mass/Vol] 33.5 g/dL Normal 29.9-35.2 [facility] Comment on above: Performed By: #### B MP #### [facility] [address] [address] [address] Lucho De León MCV (RBC) [Entitic vol] 90.4 fL Normal 80.0-94.0 [facility] Comment on above: Performed By: #### B MP #### [facility] [address] [place] [address] Dr. Lucho De León MONO # 1.2 103/ul Critically high 0.3-0.8 [facility] Comment on above: Performed By: #### B MP #### [facility] [address] [place] [address] Dr. Lucho De León Monocytes/100 WBC (Bld) 11.6 % Normal 1.7-12.0 [facility] Comment on above: Performed By: #### B MP #### [facility] [address] [place] [address] Dr. Lucho De León NEUT # 6.2 103/ul Normal 1.4-6.5 [facility] Comment on above: Performed By: #### B MP #### [facility] [address] [place] [address] Dr. Lucho De León Neutrophils/100 WBC (Bld) 59.1 % Normal 43.0-75.0 [facility] Comment on above: Performed By: #### B MP #### [facility] [address] [place] [address] Dr. Lucho De León Platelet mean volume (Bld) [Entitic vol] 10.1 fL Normal 9.5-13.5 [facility] Comment on above: Performed By: #### B MP #### [facility] [address] [place] [address] Dr. Lucho De León PLT 166 103/ul Normal 150-450 [facility] Comment on above: Performed By: #### B MP #### [facility] [address] [place] [address] Dr. Lucho De León RBC 2.61 106/ul Critically low 4.70-6.10 [facility] Comment on above: Performed By: #### B MP #### [facility] [address] [place] [address] Dr. Lucho De León WBC 10.5 103/ul Normal 4.0-11.0 [facility] Comment on above: Performed By: #### B MP #### [facility] [address] [place] [address] Dr. Lucho De León HEMOGLOBIN AND HEMATOCRITon 03-28-2022 Hematocrit (Bld) [Volume fraction] 26.4 % Critically low 42.0-54.0 [facility] Comment on above: Performed By: #### H GBHCT #### [facility] [address] [place] [address] Dr. Lucho De León Hemoglobin (Bld) [Mass/Vol] 8.8 g/dL Critically low 14.0-18.0 [facility] Comment on above: Performed By: #### H GBHCT #### [facility] [address] [place] [address] Dr. Lucho De León Hematocrit (Bld) [Volume fraction] 20.9 % Critically low 42.0-54.0 [facility] Comment on above: Performed By: #### C VDTBH #### [facility] [address] [place] [address] Dr. Lucho De León Hemoglobin (Bld) [Mass/Vol] 7.1 g/dL Critically low 14.0-18.0 [facility] Comment on above: Performed By: #### C VDTBH #### [facility] [address] [place] [address] Dr. Lucho De León POINT OF CARE GLUCOSEon 03-16 Glucose [Mass/Vol] 132 mg/dL Critically high 74-106 [facility] Comment on above: Performed By: #### C BC #### [facility] [address] [place] [address] Dr. Lucho De León Glucose [Mass/Vol] 198 mg/dL Critically high 74-106 [facility] Comment on above: Performed By: #### A 1C #### [facility] [address] [address] [address] Lucho De León Glucose [Mass/Vol] 82 mg/dL Normal 74-106 [facility] Comment on above: Performed By: #### C BC #### [facility] [address] [address] [address] Lucho De León Glucose [Mass/Vol] 85 mg/dL Normal 74-106 [facility] Comment on above: Performed By: #### C VDTBH #### [facility] [address] [address] [address] Lucho De León Glucose [Mass/Vol] 115 mg/dL Critically high 74-106 [facility] Comment on above: Performed By: #### A 1C #### [facility] [address] [place] [address] Dr. Lucho De León PROF CHEM 8 (BAS METB)on Anion gap [Moles/Vol] 10.6 mmol/L Normal [facility] Comment on above: Performed By: #### M ALBR #### [facility] [address] [address] [address] Lucho De León Calcium [Mass/Vol] 8.0 mg/dL Critically low 8.5-10.1 [facility] Comment on above: Performed By: #### M ALBR #### [facility] [address] [address] [address] Lucho De León Chloride [Moles/Vol] 108 mmol/L Critically high 98-107 [facility] Comment on above: Performed By: #### M ALBR #### [facility] [address] [address] [address] Lucho De León CO2 [Moles/Vol] 23.6 mmol/L Normal 21.0-32.0 [facility] Comment on above: Performed By: #### M ALBR #### [facility] [address] [place] [address] Dr. Lucho De León Creatinine [Mass/Vol] 0.54 mg/dL Critically low 0.70-1.30 [facility] Comment on above: Performed By: #### M ALBR #### [facility] [address] [address] [address] Lucho De León EGFR-AF GABONESE >60 Normal >=60 [facility] Comment on above: Performed By: #### M ALBR #### [facility] [address] [address] [address] Lucho De León EGFR-NON AF GABONESE >60 Normal >=60 [facility] Comment on above: Performed By: #### M ALBR #### [facility] [address] [address] [address] Lucho De León Glucose [Mass/Vol] 126 mg/dL Critically high 74-106 [facility] Comment on above: Performed By: #### M ALBR #### [facility] [address] [address] [address] Lucho De León Potassium [Moles/Vol] 4.2 mmol/L Normal 3.5-5.1 [facility] Comment on above: Performed By: #### M ALBR #### [facility] [address] [address] [address] Lucho De León Sodium [Moles/Vol] 138 mmol/L Normal 136-145 [facility] Comment on above: Performed By: #### M ALBR #### [facility] [address] [address] [address] Lucho De León Urea nitrogen [Mass/Vol] 28.0 mg/dL Critically high 7.0-18.0 [facility] Comment on above: Performed By: #### M ALBR #### [facility] [address] [address] [address] Lucho De León Urea nitrogen/Creatinine [Mass ratio] 51.9 mg/mg Normal [facility] Comment on above: Performed By: #### M ALBR #### [facility] [address] [address] [address] Lucho De León CBC W MANUAL DIFFon 03-27-20 22 ATYPICAL LYMPH # Normal [facility] Comment on above: Performed By: #### C VDTBH #### [facility] [address] [address] [address] Lucho De León ATYPICAL LYMPH % Normal [facility] Comment on above: Performed By: #### C VDTBH #### [facility] [address] [address] [address] Lucho De León BAND # 0.4 103/ul Critically high 0.0-0.3 [facility] Comment on above: Performed By: #### C VDTBH #### [facility] [address] [place] [address] Dr. Lucho De León BAND % 3 % Normal 0-5 [facility] Comment on above: Performed By: #### C VDTBH #### [facility] [address] [place] [address] Dr. Lucho De León BASOM # 0.00 103/ul Normal 0.00-0.10 [facility] Comment on above: Performed By: #### C VDTBH #### [facility] [address] [place] [address] Dr. Lucho De León BASOM % 0.0 % Critically low 0.2-2.0 [facility] Comment on above: Performed By: #### C VDTB #### [facility] [address] [place] [address] Dr. Lucho De León BLAST # Normal [facility] Comment on above: Performed By: #### C VDTBH #### [facility] [address] [place] [address] Dr. Lucho De León BLAST % Normal [facility] Comment on above: Performed By: #### C VDTBH #### [facility] [address] [place] [address] Dr. Lucho De León CORRECTED WBC Normal 4.0-11.0 [facility] Comment on above: Performed By: #### C VDTBH #### [facility] [address] [place] [address] Dr. Lucho De León EOS # 0.00 103/ul Normal 0.00-0.70 [facility] Comment on above: Performed By: #### C VDTBH #### [facility] [address] [address] [address] Lucho De León EOS% 0.0 % Critically low 0.9-7.0 [facility] Comment on above: Performed By: #### C VDTBH #### [facility] [address] [address] [address] Lucho De León HCT 25.1 % Critically low 42.0-54.0 [facility] Comment on above: Performed By: #### C VDTBH #### [facility] [address] [address] [address] Lucho De León HGB 8.5 g/dl Critically low 14.0-18.0 [facility] Comment on above: Performed By: #### C VDTBH #### [facility] [address] [place] [address] Dr. Lucho De León LYMPHM # 2.10 103/ul Normal 1.20-3.80 [facility] Comment on above: Performed By: #### C VDTBH #### [facility] [address] [place] [address] Dr. Lucho De León LYMPHM% 15.0 % Critically low 20.5-60.0 [facility] Comment on above: Performed By: #### C VDTBH #### [facility] [address] [place] [address] Dr. Lucho De León MCH 30.9 pg Normal 25.9-34.0 [facility] Comment on above: Performed By: #### C VDTBH #### [facility] [address] [address] [address] Lucho De León MCHC 33.9 g/dl Normal 29.9-35.2 [facility] Comment on above: Performed By: #### C VDTBH #### [facility] [address] [place] [address] Dr. Lucho De León MCV 91.3 fL Normal 80.0-94.0 [facility] Comment on above: Performed By: #### C VDTBH #### [facility] [address] [place] [address] Dr. Lucho De León METAMYELOCYTE # Normal [facility] Comment on above: Performed By: #### C VDTBH #### [facility] [address] [place] [address] Dr. Lucho De León METAMYELOCYTE % Normal [facility] Comment on above: Performed By: #### C VDTBH #### [facility] [address] [place] [address] Dr. Lucho De León MONOM# 0.98 103/ul Critically high 0.30-0.80 [facility] Comment on above: Performed By: #### C VDTBH #### [facility] [address] [place] [address] Dr. Lucho De León MONOM% 7.0 % Normal 1.7-12.0 [facility] Comment on above: Performed By: #### C VDTBH #### [facility] [address] [place] [address] Dr. Lucho De León MPV 10.7 fL Normal 9.5-13.5 [facility] Comment on above: Performed By: #### C VDTBH #### [facility] [address] [place] [address] Dr. Lucho De León MYELOCYTE # Normal [facility] Comment on above: Performed By: #### C VDTBH #### [facility] [address] [place] [address] Dr. Lucho D eLeón MYELOCYTE % Normal [facility] Comment on above: Performed By: #### C VDTBH #### [facility] [address] [place] [address] Dr. Lucho De León NRBC 3 Normal [facility] Comment on above: Performed By: #### C VDTBH #### [facility] [address] [place] [address] Dr. Lucho De León PLT 176 103/ul Normal 150-450 [facility] Comment on above: Performed By: #### C VDTBH #### [facility] [address] [place] [address] Dr. Lucho De León RBC 2.75 106/ul Critically low 4.70-6.10 [facility] Comment on above: Performed By: #### C VDTBH #### [facility] [address] [place] [address] Dr. Lucho De León RDW 14.2 % Normal 11.0-15.0 [facility] Comment on above: Performed By: #### C VDTBH #### [facility] [address] [place] [address] Dr. Lucho De León SEG # 10.50 103/ul Critically high 1.40-6.50 [facility] Comment on above: Performed By: #### C VDTBH #### [facility] [address] [place] [address] Dr. Lucho De León SEG % 75.0 % Normal 43.0-75.0 [facility] Comment on above: Performed By: #### C VDTBH #### [facility] [address] [place] [address] Dr. Lucho De León WBC 14.0 103/ul Critically high 4.0-11.0 [facility] Comment on above: Performed By: #### C VDTBH #### [facility] [address] [place] [address] Dr. Lucho De León HEMOGLOBIN AND HEMATOCRITon 03-27-2022 Hematocrit (Bld) [Volume fraction] 24.4 % Critically low 42.0-54.0 [facility] Comment on above: Performed By: #### H GBHCT #### [facility] [address] [place] [address] Dr. Lucho De León Hemoglobin (Bld) [Mass/Vol] 8.3 g/dL Critically low 14.0-18.0 [facility] Comment on above: Performed By: #### H GBHCT #### [facility] [address] [place] [address] Dr. Lucho De León POINT OF CARE GLUCOSEon 03-16 Glucose [Mass/Vol] 222 mg/dL Critically high 74-106 [facility] Comment on above: Performed By: #### B MP #### [facility] [address] [address] [address] Lucho De León Glucose [Mass/Vol] 330 mg/dL Critically high -106 [facility] Comment on above: Performed By: #### H GBHCT #### [facility] [address] [place] [address] Dr. Lucho De León Glucose [Mass/Vol] 357 mg/dL Critically high -106 [facility] Comment on above: Performed By: #### A 1C #### [facility] [address] [address] [address] Lucho De León Glucose [Mass/Vol] 257 mg/dL Critically high -106 [facility] Comment on above: Performed By: #### M ALBR #### [facility] [address] [place] [address] Dr. Lucho De León Glucose [Mass/Vol] 330 mg/dL Critically high -106 [facility] Comment on above: Performed By: #### C VDTBH #### [facility] [address] [place] [address] Dr. Lucho De León PROF CHEM 8 (BAS METB)on Anion gap [Moles/Vol] 15.3 mmol/L Normal [facility] Comment on above: Performed By: #### B MP #### [facility] [address] [place] [address] Dr. Lucho De León Calcium [Mass/Vol] 7.9 mg/dL Critically low 8.5-10.1 [facility] Comment on above: Performed By: #### B MP #### [facility] [address] [place] [address] Dr. Lucho De León Chloride [Moles/Vol] 106 mmol/L Normal 98-107 [facility] Comment on above: Performed By: #### B MP #### [facility] [address] [place] [address] Dr. Lucho De León CO2 [Moles/Vol] 20.9 mmol/L Critically low 21.0-32.0 [facility] Comment on above: Performed By: #### B MP #### [facility] [address] [address] [address] Lucho De León Creatinine [Mass/Vol] 0.84 mg/dL Normal 0.70-1.30 [facility] Comment on above: Performed By: #### B MP #### [facility] [address] [address] [address] Lucho De León EGFR-AF GABONESE >60 Normal >=60 [facility] Comment on above: Performed By: #### B MP #### [facility] [address] [address] [address] Lucho De León EGFR-NON AF GABONESE >60 Normal >=60 [facility] Comment on above: Performed By: #### B MP #### [facility] [address] [address] [address] Lucho De León Glucose [Mass/Vol] 275 mg/dL Critically high 74-106 [facility] Comment on above: Performed By: #### B MP #### [facility] [address] [address] [address] Lucho De León Potassium [Moles/Vol] 5.2 mmol/L Critically high 3.5-5.1 [facility] Comment on above: Performed By: #### B MP #### [facility] [address] [address] [address] Lucho De León Sodium [Moles/Vol] 137 mmol/L Normal 136-145 [facility] Comment on above: Performed By: #### B MP #### [facility] [address] [address] [address] Lucho De León Urea nitrogen [Mass/Vol] 57.0 mg/dL Critically high 7.0-18.0 [facility] Comment on above: Performed By: #### B MP #### [facility] [address] [place] [address] Dr. Lucho De León Urea nitrogen/Creatinine [Mass ratio] 67.9 mg/mg Normal [facility] Comment on above: Performed By: #### B MP #### [facility] [address] [address] [address] Lucho De León TYPE AND SCREENon 03-27-2022 TYPE AND SCREEN Negative Normal [facility] Comment on above: Performed By: #### M ALBR #### [facility] [address] [place] [address] Dr. Lucho De León ABO RH RETYPEon 03-26-2022 ABO and Rh group Nom (Bld) DONE Normal [facility] Comment on above: Performed By: #### C VDTBH #### [facility] [address] [place] [address] Dr. Lucho De León AMYLASEon 03-26-2022 Amylase [Catalytic activity/Vol] 34 U/L Normal 25-115 [facility] Comment on above: Performed By: #### C BC #### [facility] [address] [place] [address] Dr. Lucho De León CBC AUTO DIFFon 03-26-2022 BASO # 0.0 103/ul Normal 0.0-0.1 [facility] Comment on above: Performed By: #### C BC #### [facility] [address] [place] [address] Dr. Lucho De León Basophils/100 WBC (Bld) 0.3 % Normal 0.2-2.0 [facility] Comment on above: Performed By: #### C BC #### [facility] [address] [place] [address] Dr. Lucho De León EO # 0.0 103/ul Normal 0.0-0.7 [facility] Comment on above: Performed By: #### C BC #### [facility] [address] [place] [address] Dr. Lucho De León Eosinophils/100 WBC (Bld) 0.3 % Critically low 0.9-7.0 [facility] Comment on above: Performed By: #### C BC #### [facility] [address] [place] [address] Dr. Lucho De León Erythrocyte distribution width (RBC) [Ratio] 13.9 % Normal 11.0-15.0 [facility] Comment on above: Performed By: #### C BC #### [facility] [address] [place] [address] Dr. Lucho De León Hematocrit (Bld) [Volume fraction] 30.5 % Critically low 42.0-54.0 [facility] Comment on above: Performed By: #### C BC #### [facility] [address] [place] [address] Dr. Lucho De León Hemoglobin (Bld) [Mass/Vol] 10.0 g/dL Critically low 14.0-18.0 [facility] Comment on above: Performed By: #### C BC #### [facility] [address] [place] [address] Dr. Lucho De León IG # 0.12 10e3/ul Critically high 0.00-0.03 [facility] Comment on above: Performed By: #### C BC #### [facility] [address] [place] [address] Dr. Lucho De León IG % 1.0 % Critically high 0.0-0.5 [facility] Comment on above: Performed By: #### C BC #### [facility] [address] [place] [address] Dr. Lucho De León LYMPH # 1.4 103/ul Normal 1.2-3.8 [facility] Comment on above: Performed By: #### C BC #### [facility] [address] [place] [address] Dr. Lucho De León Lymphocytes/100 WBC (Bld) 12.5 % Critically low 20.5-60.0 [facility] Comment on above: Performed By: #### C BC #### [facility] [address] [place] [address] Dr. Lucho De León MANUAL DIFF REQ NO Normal [facility] Comment on above: Performed By: #### C BC #### [facility] [address] [place] [address] Dr. Lucho De León MCH (RBC) [Entitic mass] 31.2 pg Normal 25.9-34.0 [facility] Comment on above: Performed By: #### C BC #### [facility] [address] [place] [address] Dr. Lucho De León MCHC (RBC) [Mass/Vol] 32.8 g/dL Normal 29.9-35.2 [facility] Comment on above: Performed By: #### C BC #### [facility] [address] [address] [address] Lucho De León MCV (RBC) [Entitic vol] 95.0 fL Critically high 80.0-94.0 [facility] Comment on above: Performed By: #### C BC #### [facility] [address] [address] [address] Lucho De León MONO # 0.8 103/ul Normal 0.3-0.8 [facility] Comment on above: Performed By: #### C BC #### [facility] [address] [place] [address] Dr. Lucho De León Monocytes/100 WBC (Bld) 6.9 % Normal 1.7-12.0 [facility] Comment on above: Performed By: #### C BC #### [facility] [address] [address] [address] Lucho De León NEUT # 9.0 103/ul Critically high 1.4-6.5 [facility] Comment on above: Performed By: #### C BC #### [facility] [address] [place] [address] Dr. Lucho De León Neutrophils/100 WBC (Bld) 79.0 % Critically high 43.0-75.0 [facility] Comment on above: Performed By: #### C BC #### [facility] [address] [address] [address] Lucho De León Platelet mean volume (Bld) [Entitic vol] 10.2 fL Normal 9.5-13.5 [facility] Comment on above: Performed By: #### C BC #### [facility] [address] [place] [address] Dr. Lucho De León PLT 226 103/ul Normal 150-450 [facility] Comment on above: Performed By: #### C BC #### [facility] [address] [place] [address] Dr. Lucho De León RBC 3.21 106/ul Critically low 4.70-6.10 [facility] Comment on above: Performed By: #### C BC #### [facility] [address] [place] [address] Dr. Lucho De León WBC 11.4 103/ul Critically high 4.0-11.0 [facility] Comment on above: Performed By: #### C BC #### [facility] [address] [place] [address] Dr. Lucho De León CBC W MANUAL DIFFon 03-26-20 22 ATYPICAL LYMPH # Normal [facility] Comment on above: Performed By: #### M ALBR #### [facility] [address] [place] [address] Dr. Lucho De León ATYPICAL LYMPH % Normal [facility] Comment on above: Performed By: #### M ALBR #### [facility] [address] [place] [address] Dr. Lucho De León BAND # 0.3 103/ul Normal 0.0-0.3 [facility] Comment on above: Performed By: #### M ALBR #### [facility] [address] [place] [address] Dr. Lucho De León BAND % 2 % Normal 0-5 [facility] Comment on above: Performed By: #### M ALBR #### [facility] [address] [place] [address] Dr. Lucho De León BASOM # 0.00 103/ul Normal 0.00-0.10 [facility] Comment on above: Performed By: #### M ALBR #### [facility] [address] [place] [address] Dr. Lucho De León BASOM % 0.0 % Critically low 0.2-2.0 [facility] Comment on above: Performed By: #### M ALBR #### [facility] [address] [place] [address] Dr. Lucho De León BLAST # Normal [facility] Comment on above: Performed By: #### M ALBR #### [facility] [address] [place] [address] Dr. Lucho De León BLAST % Normal [facility] Comment on above: Performed By: #### M ALBR #### [facility] [address] [address] [address] Lucho De León CORRECTED WBC Normal 4.0-11.0 [facility] Comment on above: Performed By: #### M ALBR #### [facility] [address] [address] [address] Lucho De León EOS # 0.00 103/ul Normal 0.00-0.70 [facility] Comment on above: Performed By: #### M ALBR #### [facility] [address] [place] [address] Dr. Lucho De León EOS% 0.0 % Critically low 0.9-7.0 [facility] Comment on above: Performed By: #### M ALBR #### [facility] [address] [place] [address] Dr. Lucho De León HCT 20.0 % Critically low 42.0-54.0 [facility] Comment on above: Performed By: #### M ALBR #### [facility] [address] [place] [address] Dr. Lucho De León HGB 6.7 g/dl Critically low 14.0-18.0 [facility] Comment on above: Performed By: #### M ALBR #### [facility] [address] [place] [address] Dr. Lucho De León LYMPHM # 2.53 103/ul Normal 1.20-3.80 [facility] Comment on above: Performed By: #### M ALBR #### [facility] [address] [place] [address] Dr. Lucho De León LYMPHM% 17.0 % Critically low 20.5-60.0 [facility] Comment on above: Performed By: #### M ALBR #### [facility] [address] [place] [address] Dr. Lucho De León MCH 30.6 pg Normal 25.9-34.0 [facility] Comment on above: Performed By: #### M ALBR #### [facility] [address] [place] [address] Dr. Lucho De León MCHC 33.5 g/dl Normal 29.9-35.2 [facility] Comment on above: Performed By: #### M ALBR #### [facility] [address] [place] [address] Dr. Lucho De León MCV 91.3 fL Normal 80.0-94.0 [facility] Comment on above: Performed By: #### M ALBR #### [facility] [address] [place] [address] Dr. Lucho De León METAMYELOCYTE # Normal [facility] Comment on above: Performed By: #### M ALBR #### [facility] [address] [place] [address] Dr. Lucho De León METAMYELOCYTE % Normal [facility] Comment on above: Performed By: #### M ALBR #### [facility] [address] [place] [address] Dr. Lucho De León MONOM# 0.00 103/ul Critically low 0.30-0.80 [facility] Comment on above: Performed By: #### M ALBR #### [facility] [address] [place] [address] Dr. Lucho De León MONOM% 0.0 % Critically low 1.7-12.0 [facility] Comment on above: Performed By: #### M ALBR #### [facility] [address] [place] [address] Dr. Lucho De León MPV 10.9 fL Normal 9.5-13.5 [facility] Comment on above: Performed By: #### M ALBR #### [facility] [address] [place] [address] Dr. Lucho De León MYELOCYTE # Normal [facility] Comment on above: Performed By: #### M ALBR #### [facility] [address] [place] [address] Dr. Lucho De León MYELOCYTE % Normal [facility] Comment on above: Performed By: #### M ALBR #### [facility] [address] [address] [address] Lucho De León NRBC 2 Normal [facility] Comment on above: Performed By: #### M ALBR #### [facility] [address] [address] [address] Lucho De León PLT 214 103/ul Normal 150-450 [facility] Comment on above: Result Comment: Prev iously reported as: 69 On 03/26/2022 21:36 By [email or web address] Performed By: #### M ALBR #### [facility] [address] [address] [address] Lucho De León RBC 2.19 106/ul Critically low 4.70-6.10 [facility] Comment on above: Performed By: #### M ALBR #### [facility] [address] [place] [address] Dr. Lucho De León RDW 14.0 % Normal 11.0-15.0 [facility] Comment on above: Performed By: #### M ALBR #### [facility] [address] [place] [address] Dr. Lucho De León SEG # 12.07 103/ul Critically high 1.40-6.50 [facility] Comment on above: Performed By: #### M ALBR #### [facility] [address] [place] [address] Dr. Lucho De León SEG % 81.0 % Critically high 43.0-75.0 [facility] Comment on above: Performed By: #### M ALBR #### [facility] [address] [place] [address] Dr. Lucho De León WBC 14.9 103/ul Critically high 4.0-11.0 [facility] Comment on above: Performed By: #### M ALBR #### [facility] [address] [place] [address] Dr[address] ABD/PELV W CONon 03-26-[address] ABD/PELV W CON EXAMINATION: CT ABD/PELV W CON HISTORY: ABDOMINAL DISTENSION (GASEOUS) . Nausea and vomiting for one day. Constipation. Upper abdominal cramping. COMPARISON: Acute abdominal series, 03/26/2022. TECHNIQUE: IV contrast enhanced CT imaging of the abdomen and pelvis was performed with 75 mL of Omnipaque 350 intravenous contrast. Sagittal and coronal reconstructions are provided. Dose reduction techniques were achieved by using automated exposure control and/or adjustment of mA and/or kV according to patient size and/or use of iterative reconstruction technique. FINDINGS: CT ABDOMEN: The lung bases are clear. Cardiac size is normal. There is no pericardial effusion. The liver, gallbladder, pancreas, and spleen appear unremarkable. There is multinodular enlargement of the bilateral adrenal glands measuring up to 3.1 x 2.9 cm and 35 Hounsfield units on the left on image 31 of series 3, nonspecific. Bilateral renal cortical cysts are noted.. There are moderate aortic and iliac calcifications without aneurysm or dissection. The nonenhanced stomach and small bowel appear unremarkable. CT PELVIS: A normal appendix is seen on image 84 of series 3. The pelvic small bowel loops and prostate appear unremarkable. Posterior bladder diverticula are noted. The urinary bladder is distended but otherwise unremarkable. There is colonic diverticulosis with a normal volume of colonic stool and gas. No inflammatory fat stranding, free fluid, loculated fluid or free air is seen in the abdomen or pelvis. No acute osseous abnormality or suspicious bony lesion is seen. IMPRESSION: 1. No acute findings in the abdomen or pelvis. Specifically, no bowel obstruction, ileus or other abnormality to explain the patient's abdominal distention, nausea and vomiting. 2. 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 These do not meet CT criteria for adenomas. Elective adrenal mass protocol CT or MRI could further evaluate. 3. Colonic diverticulosis. Electronically authenticated by: ROSARIO BLANCO Date: 2022-03-26 05:29 Normal [facility]16 SARS-CoV-2 (COVID-19) RNA IVANNA+probe Ql (Unsp spec) Not detected Normal NOT DETECTED [facility] Comment on above: Result Comment: When diagnostic testing is negative, the possibility of a false negative should be considered in the context of a patient's recent exposures and the presence of clinical signs and symptoms consistent with SARS-CoV-2. This test is not yet approved or cleared by the [place] FDA. When there are no FDA-approved or cleared tests available, and other criteria are met, FDA can make tests available under an emergency access mechanism called an Emergency Use Authorization (EUA). The EUA for this test is supported by the [employer] of Health and Human Service's declaration that circumstances exist to justify the emergency use of in vitro diagnostics for the detection and/or diagnosis of the virus that causes COVID-19. This EUA will remain in effect for the duration of the COVID-19 declaration justifying emergency of IVDs, unless it is terminated or revoked by the FDA (after which the test may no longer be used). Performed By: #### C VDTB #### [facility] [address] [place] [address] Dr. Lucho De León ER URINE PROFILEon 2 Bilirubin Ql (U) Negative Normal NEGATIVE [facility] Comment on above: Performed By: #### A 1C #### [facility] [address] [place] [address] Dr. Lucho De León Clarity (U) CLEAR Normal CLEAR [facility] Comment on above: Performed By: #### A 1C #### [facility] [address] [place] [address] Dr. Lucho De León Color (U) LT. YELLOW Normal YELLOW [facility] Comment on above: Performed By: #### A 1C #### [facility] [address] [place] [address] Dr. Lucho MELGAR A micrscopic examination will be performed if indicated. Normal [facility] Comment on above: Performed By: #### A 1C #### [facility] [address] [place] [address] Dr. Lucho De León Glucose Ql (U) >1000 Abnormal NEGATIVE [facility] Comment on above: Performed By: #### A 1C #### [facility] [address] [place] [address] Dr. Lucho De León Hemoglobin Ql (U) Negative Normal NEGATIVE [facility] Comment on above: Performed By: #### A 1C #### [facility] [address] [place] [address] Dr. Lucho De León Ketones Ql (U) 15 mg/dl Abnormal NEGATIVE [facility] Comment on above: Performed By: #### A 1C #### [facility] [address] [place] [address] Dr. Lucho De León LEUKOCYTES Negative Normal NEGATIVE [facility] Comment on above: Performed By: #### A 1C #### [facility] [address] [place] [address] Dr. Lucho De León Nitrite Ql (U) Negative Normal NEGATIVE [facility] Comment on above: Performed By: #### A 1C #### [facility] [address] [place] [address] Dr. Lucho De León pH (U) 5.0 [pH] Normal 5-9 [facility] Comment on above: Performed By: #### A 1C #### [facility] [address] [place] [address] Dr. Lucho De León SPEC GRAVITY <=1.005 Abnormal 1.005-<=1.025 [facility] Comment on above: Performed By: #### A 1C #### [facility] [address] [place] [address] Dr. Lucho De León UA PROTEIN Negative Normal NEGATIVE/ TRACE [facility] Comment on above: Performed By: #### A 1C #### [facility] [address] [place] [address] Dr. Lucho De León UR MICRO IND NOT INDICATED Normal [facility] Comment on above: Performed By: #### A 1C #### [facility] [address] [place] [address] Dr. Lucho De León Urobilinogen Qn (U) 0.2 {Danny'U}/dL Normal 0.2 - 1. 0 [facility] Comment on above: Performed By: #### A 1C #### [facility] [address] [place] [address] Dr. Lucho De León LIPASEon 03-26-2022 Lipase [Catalytic activity/Vol] 69.0 U/L Critically low 73.0-393.0 [facility] Comment on above: Performed By: #### C BC #### [facility] [address] [place] [address] Dr. Lucho De León OCC BLD IMMUNO SCREENon 03-16 OCCULT BLOOD Positive Abnormal NEGATIVE [facility] Comment on above: Performed By: #### H GBHCT #### [facility] [address] [place] [address] Dr. Lucho De León POINT OF CARE GLUCOSEon 03-16 Glucose [Mass/Vol] 271 mg/dL Critically high 74-106 [facility] Comment on above: Performed By: #### B MP #### [facility] [address] [place] [address] Dr. Lucho De León PROF 14(COMP METB)on 022 Albumin [Mass/Vol] 2.7 g/dL Critically low 3.4-5.0 [facility] Comment on above: Performed By: #### C VDTBH #### [facility] [address] [place] [address] Dr. Lucho De León ALP [Catalytic activity/Vol] 53 U/L Normal 46-116 [facility] Comment on above: Performed By: #### C VDTBH #### [facility] [address] [place] [address] Dr. Lucho De León ALT [Catalytic activity/Vol] 18 U/L Normal 16-63 [facility] Comment on above: Performed By: #### C VDTBH #### [facility] [address] [place] [address] Dr. Lucho De León Anion gap [Moles/Vol] 18.7 mmol/L Normal [facility] Comment on above: Performed By: #### C VDTBH #### [facility] [address] [place] [address] Dr. Lucho De León AST [Catalytic activity/Vol] 14 U/L Critically low 15-37 [facility] Comment on above: Performed By: #### C VDTBH #### [facility] [address] [place] [address] Dr. Lucho De León Bilirubin [Mass/Vol] 0.2 mg/dL Normal 0.2-1.0 [facility] Comment on above: Performed By: #### C VDTBH #### [facility] [address] [address] [address] Lucho De León Chloride [Moles/Vol] 99 mmol/L Normal 98-107 [facility] Comment on above: Performed By: #### C VDTBH #### [facility] [address] [place] [address] Dr. Lucho De León CO2 [Moles/Vol] 18.3 mmol/L Critically low 21.0-32.0 [facility] Comment on above: Performed By: #### C VDTBH #### [facility] [address] [place] [address] Dr. Lucho De León Creatinine [Mass/Vol] 0.75 mg/dL Normal 0.70-1.30 [facility] Comment on above: Performed By: #### C VDTBH #### [facility] [address] [place] [address] Dr. Lucho De Lenó Globulin (S) [Mass/Vol] 2.6 g/dL Normal [facility] Comment on above: Performed By: #### C VDTBH #### [facility] [address] [place] [address] Dr. Lucho De León Glucose [Mass/Vol] 323 mg/dL Critically high 74-106 [facility] [facility] Comment on above: Performed By: #### C VDTBH #### [facility] [address] [place] [address] Dr. Lucho De León Potassium [Moles/Vol] 5.0 mmol/L Normal 3.5-5.1 [facility] Comment on above: Performed By: #### C VDTBH #### [facility] [address] [place] [address] Dr. Lucho De León Protein [Mass/Vol] 5.3 g/dL Critically low 6.4-8.2 [facility] Comment on above: Performed By: #### C VDTBH #### [facility] [address] [place] [address] Dr. Lucho De León Sodium [Moles/Vol] 131 mmol/L Critically low 136-145 [facility] Comment on above: Performed By: #### C VDTBH #### [facility] [address] [place] [address] Dr. Lucho De León Urea nitrogen [Mass/Vol] 65.0 mg/dL Critically high 7.0-18.0 [facility] Comment on above: Performed By: #### C VDTBH #### [facility] [address] [place] [address] Dr. Lucho De León Urea nitrogen/Creatinine [Mass ratio] 86.7 mg/mg Normal [facility] Comment on above: Performed By: #### C VDTBH #### [facility] [address] [place] [address] Dr. Lucho De León Albumin [Mass/Vol] 3.0 g/dL Critically low 3.4-5.0 [facility] Comment on above: Performed By: #### C BC #### [facility] [address] [place] [address] Dr. Lucho De León Albumin/Globulin [Mass ratio] 1.0 {ratio} Normal [facility] Comment on above: Performed By: #### C VDTBH #### [facility] [address] [place] [address] Dr. Lucho De León Performed By: #### C BC #### [facility] [address] [place] [address] Dr. Lucho De León ALP [Catalytic activity/Vol] 64 U/L Normal 46-116 [facility] Comment on above: Performed By: #### C BC #### [facility] [address] [place] [address] Dr. Lucho De León ALT [Catalytic activity/Vol] 20 U/L Normal 16-63 [facility] Comment on above: Performed By: #### C BC #### [facility] [address] [place] [address] Dr. Lucho De León Anion gap [Moles/Vol] 14.2 mmol/L Normal [facility] Comment on above: Performed By: #### C BC #### [facility] [address] [place] [address] Dr. Lucho De León AST [Catalytic activity/Vol] 11 U/L Critically low 15-37 [facility] Comment on above: Performed By: #### C BC #### [facility] [address] [address] [address] Lucho De León Bilirubin [Mass/Vol] 0.3 mg/dL Normal 0.2-1.0 [facility] Comment on above: Performed By: #### C BC #### [facility] [address] [place] [address] Dr. Lucho De León Calcium [Mass/Vol] 8.3 mg/dL Critically low 8.5-10.1 [facility] Comment on above: Performed By: #### C VDTBH #### [facility] [address] [place] [address] Dr. Lucho De León Performed By: #### C BC #### [facility] [address] [place] [address] Dr. Lucho De León Chloride [Moles/Vol] 102 mmol/L Normal 98-107 [facility] Comment on above: Performed By: #### C BC #### [facility] [address] [place] [address] Dr. Lucho De León CO2 [Moles/Vol] 23.4 mmol/L Normal 21.0-32.0 [facility] Comment on above: Performed By: #### C BC #### [facility] [address] [place] [address] Dr. Lucho De León Creatinine [Mass/Vol] 0.81 mg/dL Normal 0.70-1.30 [facility] Comment on above: Performed By: #### C BC #### [facility] [address] [place] [address] Dr. Lucho De León EGFR-AF GABONESE >60 Normal >=60 [facility] Comment on above: Performed By: #### C VDTBH #### [facility] [address] [place] [address] Dr. Lucho De León Performed By: #### C BC #### [facility] [address] [place] [address] Dr. Lucho De León EGFR-NON AF GABONESE >60 Normal >=60 [facility] Comment on above: Performed By: #### C VDTBH #### [facility] [address] [place] [address] Dr. Lucho De León Performed By: #### C BC #### [facility] [address] [place] [address] Dr. Lucho De León Globulin (S) [Mass/Vol] 3.0 g/dL Normal [facility] Comment on above: Performed By: #### C BC #### [facility] [address] [place] [address] Dr. Lucho De León Glucose [Mass/Vol] 261 mg/dL Critically high 74-106 [facility] Comment on above: Performed By: #### C BC #### [facility] [address] [place] [address] Dr. Lucho De León Potassium [Moles/Vol] 4.6 mmol/L Normal 3.5-5.1 [facility] Comment on above: Performed By: #### C BC #### [facility] [address] [place] [address] Dr. Lucho De León Protein [Mass/Vol] 6.0 g/dL Critically low 6.4-8.2 [facility] Comment on above: Performed By: #### C BC #### [facility] [address] [place] [address] Dr. Lucho De León Sodium [Moles/Vol] 135 mmol/L Critically low 136-145 [facility] Comment on above: Performed By: #### C BC #### [facility] [address] [place] [address] Dr. Lucho De León Urea nitrogen [Mass/Vol] 56.0 mg/dL Critically high 7.0-18.0 [facility] Comment on above: Performed By: #### C BC #### [facility] [address] [place] [address] Dr. Lucho De León Urea nitrogen/Creatinine [Mass ratio] 69.1 mg/mg Normal [facility] Comment on above: Performed By: #### C BC #### [facility] [address] [place] [address] Dr. Lucho De León PROTIMEon 03-26-2022 INR Coag (PPP) [Relative time] 0.99 {INR} Normal [facility] Comment on above: Performed By: #### M ALBR #### [facility] [address] [place] [address] Dr. Lucho De León INR GUIDELINES SEE BELOW Normal [facility] Comment on above: Result Comment: HANS RED INR: 2.0 - 3.0 CONDITIONS NOT LISTED BELOW 2.5 - 3.5 FOR PROSTHETIC HEART VALVE REPLACEMENT 2.5 - 3.5 RECURRENT THROMBOSIS Performed By: #### M ALBR #### [facility] [address] [address] [address] Lucho De León PT Coag (PPP) [Time] 10.7 s Normal 9.0-11.6 [facility] Comment on above: Performed By: #### M ALBR #### [facility] [address] [place] [address] Dr. Lucho De León PTTon 03-26-2022 aPTT Coag (Bld) [Time] 20.8 s Critically low 22.3-36.2 [facility] Comment on above: Performed By: #### M ALBR #### [facility] [address] [place] [address] Dr. Lucho De León XR ABD FLAT UP_PA Brie 03-26 XR ABD FLAT UP_PA CH EXAM: XR ABD FLAT UP_PA CH HISTORY: CONSTIPATION, UNSPECIFIED . Nausea and vomiting for one day. COMPARISON: CT abdomen pelvis, 03/08/2016. TECHNIQUE: Frontal chest x-ray was frontal views of the abdomen. FINDINGS: The heart, mediastinum, lungs and pleural spaces appear within normal limits. The bowel gas pattern is unremarkable without bowel dilatation, wall thickening, pneumatosis or free air. There is a normal volume of stool and gas in the colon. IMPRESSION: 1. No acute findings in the chest or abdomen. 2. Subjectively normal colonic stool volume. Electronically authenticated by: ROSARIO BLANCO Date: 2022-03-26 05:15 Normal [facility] Coding Summaryon 11-08-2021 Coding Summary HTMLBase 64 RvxabagwBXt3xMj+PGhl YWQ+UC1JIRAvQ18vpSFo xI7UQ5wZYW1EMLHVKEAC SE4BTK0llBQ0XLztP1Gm biAv MvmjmDJyRC08FAp4QIT2 xNtmYJarlD0aaKDrG2d4 WbHwEM99lF17CAsrJFUy LxV6SzIgxygczEVz G6kqVnQexNMnZip+PHRh YmxlIHdpZHRoPScxMDAl RdSgrAflDM1cBm2pSGRk LWNvbGxhcHNlOiBj t9qpMYBvNKedOF4ndSsg J5XxbBI0TPXuy6k1Wz54 dHI+IBZoLTY7xHhdCFts p324LbBon4anJOT8 fRLoPOqeUXR3M88vx7F5 CKJrWVYcPAT1iOI4nO2h zZfmrkdfE5KtaJJlJnQ3 VHH2zQKwgV8yvRwr mffesS3wMjn+Y78AUV4V TUOKWN8ZZez3S0GpFpld dHI+JR64VLAtIS55wCDv zAWch6prrKj6KlMw OSVbBRC7qZppBHauj5Lk YXInC15jvGNgo5C9UTUy oLzybKBrAgTxjXS3yS5c GHgwzgfxx2ljnogx Hbqfv4gssu56vO03N49w BJcmXHWxLWV5IOBhNRUd tDhnii7xsL5tFn9+IDxj t8fhn4pjqKr4ZgTt MLMibrFzsKfhPFK4i8Id Ny19C2YgnEcnx6AgLrk5 ft91bTBjs3H3tYZ4SWnf OBRtxA3pGKrxVhK0 UGNnZxEagH18cPCwUHub Eh1xbUswtKcqDK4fIUCy irqaXPAluX8sCNPhnQDd zPrrQZ2oMDXymjzw x099LsExVWP3WFAkfCAl I2LapX9rNuDfREKvXEZy S2AzoXKgAIfrT343UBsm JeC6SSIxgyQjB2Dy IAMppShnPoF2x8S7Xm6N e6NkojdcIJY9OUjlEJSq KxI8GlRrUyV2F1SwVkk9 GWStaPwrUT6uD1Rt YLRebqzyyuzwdFT0NZUa NFMyoW81iECiRWhyMl1l y1M8f834PESiNJNfuY22 Wg3nlFhmQIApvZEO kE2hvvtxh9lrfvadAsAx BHPpASv8OGs0PEXlyBni DdCoRXE6PiQ4QHP8uUPs rU8izZbzcvtiyS2t Oyc+S96dbD2zQID4PEN5 ijmnWNZftuPdBX80NW90 I9YkVmujzKTdnVD+PGRp fbEbtZynUW4vCqBm g8nzq1TiAPxrZ2AvEOGx LSnzTij3CKSsQKN6sHH3 kO9tNXFyQLbfl3M5dYN9 M1YvzyGodj8lw6fl RMEpKOhoD99mdSGkd0Q9 PEYjuKF0XYIjkVujPbDb lM78Cim+RCQbqCgee4Uc Lwfgk3ppt3ywoZm2 IjMwJSIgdmFsaWduPSJ0 n7DeTd34U19oXAgmVZLc MHZuNPJyUQEaqVygyc7m bH2mKl8+PGNvbCB3 aRC2oD7hNZDlZcV0DScv Z978RaFufJIgNkfol7cr w2uwpRj1OvQlHZTqpeMn oKdqWKJ8m1IoAt64 M64hMLwnTBKdFLMoPVHw FBIrqBdcml0zaG8pQw8+ UI6ug9vsdr48jY22wUD+ ARLpIBD3fSbgILzg NXFomL8bWAxzGrK2GSXk QyRikR78aRUqGVdpBa1m dEgzeNqcGH4jOVWprpaq f462ZlVqr6baKAVe eTUtSMksYHE5V86hp6M0 LXDiETEmYGV8tZR3jY4h bGlnbjogbGVmdDsgdmVy pXamKHgaVNjnR525 IHRvcDsnPlBhdGllbnQg YyEhBGe5O8QtRhu8FJIt aLkyCR2zmQGgDNthTt4h mElxtKyjWC2qJWFl qzhld652VvOdd6veJCBz wJXuVKxwJHT8H65nz6J5 CARdRXNiEGZ0sNG2eK4d bGlnbjogbGVmdDsg mnHyvOemNNnrJHtcM207 IHRvcDsnPkJpcnRoIERh dFC7EJ60AA18pKEdr5A9 iIN4R4UoSPBxzosu vkoyjIQ7VFSxRTZmqF20 Tg7srKuzOe1dEZPeVVI1 UQNiaKTyK0IfwE7hEiJi VWGiLQIdV9FnwKKq RQsnK473ERrjUkP6WJAl pcPuL0FuRUQlkEdjPzJ1 i6Q2Ec1NM1T2JP46HD56 cMAsb2C0lTM1F7Mp USMmxunovewsgTI9NEFu FDEjhO71Yx1lbAvzNp1a IYRhWNY1TBXvlKUjT9Kj aU5iQdYwFODuQZLz V7UlaLDhHMnoQ839UBwa ZnS7WKEnfzIbW5JpOQVf uVpqYuC7e0I4Bq3DYYo9 CI84ZL08pQKjp6U4 jBM7J3OnJZYiuicjcohl tXC1KIYlYLSnsI76Af0r wYsdHz5xWOYjOHH9VAYo hQUzT1XaeD9uEqDx JXHtCETxH1NuiUUeAPky L481DPgwHdZ6QZCchhFh S2HdYXQadAlkVyJ8o5L7 Dr0WJTVpSC49UPO6 kBN3LD59FZ97I5KqZqro dGFibGU+PHRhYmxlIHdp ZHRoPScxMDAlJyBzdHls TK5fBi2jKJBuRUMj eArqrBIaWpOne2zwLDCp DNozUR0pvNtqV1DopEV1 LTRuk4g2Lm44R55wT9Yp dXA+BWLiuJY5zDC3 xI8dAkZaXlZ5QVdbT965 VdBzqSLwNaall9zpb4km uGn1QcB2CDWlrvFdcWfh FFQ2r5EaBh57D20g IHdpZHRoPSIxNSUiIHZh fFlwvo0nvV5nPm3+PGNv gRQ0gGU9mI7kSfMhEjS1 JJpeR396NaXasNTf Oxher7txe3fvvDw9EgQz BNHisrIlsQayVCX1t6Yf Wu83T1ItjOcrv1MgWxm1 ic87kDAoi0J9lDL1 O4TvGZPgtirypRIzpWph KA4cJZHofnmfNDSjbL7d NWAuW4v2OwQzCuG6HViz G7KobrX5OEWeeDBl NLzpYWF0Y83jh2H9GBPa RRIlMCA0vBX7yM9bbLdc bjogbGVmdDsgdmVydGlj NDzvFVysB342TSZv rGzrBFNxyT2yLBRdeUMl wUxzAA9qYMNfisnxAxAU TklPTiwgVEVERFkgSjwv dGQ+MLKzRBJ3iCwt PMqxNYFtxR7xHLJpB6e8 GxRuRmP5KKnnF1YqQMBa chrdJa51fD3bIeQaHtT5 FTczO5LlmgD8XBAk dQFeJLmgMZP1T60ff6Q5 JHYsFDFiZLY4zGP2sN4l bGlnbjogbGVmdDsgdmVy cTzjMQdaMTvdV780 GABvhAeeHyY1VzIdVwX4 HNG7X8DcEux5ECSceAmo LB5mvFAzAXqkAz5neZrl bXoaQB7kMIWybwwi BXYxnD5oCMNkeREugTds RJ1mCCMmbzzug495UvCp LFA4IPCubEOlL7ZdjW8a CvUoCQTsJWIoM9Bu mKLmJQfmC831QYgvDcJ0 JOHwbdXcX7MeLWGumVat WmQ8g8X3Eh92IVLOYTSe czwvdGQ+PHRkIHN0 eWfhWRoaDBLgiM9nCHJd P3w3WqGnApV4IHpxT4Fl SENnjizpOo98zN0wBvBh PdC9OCsuY5KbzwG3 UFNwxNMkUGacEYI6G84t p6I8RTQdTKMyLPH4lUM3 mE7bkEjmakojuDFedKoj dmVydGljYWwtYWxp E442HSWjxEpzAc9ANAR7 C7VrPhh8CVZckUqkHO3s hRGcEEcuGf2rfHqoiTiw JG2zJSZzdksdVKRs vO2xXILpvWXhwHiiWZ3t SOElxyirq302JuBmHIX9 LPEbiYRbS7MpjY1iAkNu QLNdHYZvY6YttVFa DDlzK202RYrcExC9TXGx keXnY2DwEIWltPttFlP1 y7D4Qi1AMWsggEH+PC90 tr10D0RuMbkzCug3 QRQuFMS6rSG2dK4wLWAj TEtgu4N6zBZ7Y7GqqoMx yu5lg7lgHBDuBGjdF11o xLXdk7Y6EJPmiAE4 ZQOroCjjYuWleS91Vmu+ GDXlePmmv1YyDatdx2mz v2dhwDg1ZaFnWAImxsUr gTlmOFO6d6KuLw65 U17qKFwrGKPyDEEjGUIo XCRgcDmkpv0nwY1wNw3+ EEInvRI2kQU0iG2oRoFs BbH1EKmrQ648JsVz nSXwYmxwn7zep1dgqQu0 IjIwJSIgdmFsaWduPSJ0 l3VjPi51W8UiaXokq5Ss Srf0ya87hHKzh5Z1 rVU3P9QqPPAbnsydbZVo iVcmVO6pPIDaobirLXWx tX9nRQUmT1x0QaVePnP8 EYbpZ4QdyfW0QTUm pISdCJEyoMOLjD6lrcge j1azsnrdYwWbOAPzRLc9 DRh5NCWpsYpiNgZzXBG2 HoA2IYN7uMHahC2l aBxfiewykT0lApg+UGh5 h9zvoRGmWJ5mjON3SZ86 BO31rPUdt6P2kAX7J9Vq ZGRpbmctcmlnaHQ6 VNKvLLPyiL76Jo7rdXew Aj9pCDFzBTK9HIFdaCVw H9GeqI9gZeWoYAKbWUTq Q5CfnRHnNQtjE033 RFgkSmS8DMTxseNaK3Nl KSSmwEswVmA6o2O2Hk5P KY63BS46UC67hPWmf5Y7 tSP5R0AbTBCknafy plbzrPP7UCKfNYGxlY04 Tj6hlBeuZs4cLZHkOOM9 HTUybAZdG0OlyD3zRzFn LMPfTJWxU7YolYWq JTfkD138FWvqGhV4BTNe bwKuA9YyFPCymQloOnL8 s5J2Qb2NIe38CG55SG01 yOWiz2M4nQS1Z2Vz WJXaqjalzmyijGC6ZPZf NLBcgY92Et9abPzqJi2j WDIkDNW9GHZdfUNoU8Gz rO3oBqUyVTOiXYDz S7YilLCqXMkpH183PNgi XxM7HPGrptJoT8ZoIKNg pJppCyT3a1L8No8IZUfg zmb0C5JbWodxnLM+ RL02AQXfDT13dVUvmSRo g1pqzYa2TwQkTPRmLMX6 bUpmMCvzo4NcWHTwE21p zRNth3U5OBUnzPpj cHN (more content not included)... [facility] Provider Orderson 11-04-2021 Provider Orders [id number] [facility] Vital Signs Date Time Vital Sign Value Performing Clinician Facility 11-29-2023 15:28-0500 Body height 170.2 cm Tonya Dye [employer] Work Phone: [facility] 11-29-2023 15:28-0500 Body mass index (BMI) [Ratio] 28.54 kg/m2 Tonyavasile Dye [employer] Work Phone: [facility] 11-29-2023 15:28-0500 Body temperature 97.11 [degF] Tonyavasile Dye [employer] Work Phone: [facility] 11-29-2023 15:28-0500 Body weight 82.64 kg Tonya Hardik [employer] Work Phone: [facility] 11-29-2023 15:28-0500 Diastolic blood pressure 80 mm[Hg] Tonya Hardik [employer] Work Phone: [facility] 11-29-2023 15:28-0500 Heart rate 99 /min Tonya Hardik [employer] Work Phone: [facility] 11-29-2023 15:28-0500 Respiratory rate 20 /min Tonya Hardik [employer] Work Phone: [facility] 11-29-2023 15:28-0500 SaO2% (BldA) [Mass fraction] 97 % Tonya Hardik [employer] Work Phone: [facility] 11-29-2023 15:28-0500 Systolic blood pressure 138 mm[Hg] Tonya Hardik [employer] Work Phone: [facility] 08-30-2022 14:47-0500 Blood Pressure Location Bernadine [email or web address] [place] 08-30-2022 14:47-0500 Diastolic blood pressure 82 mm[Hg] Bernadine GUAJARDOL [facility] [place] 08-30-2022 14:47-0500 Heart rate 76 /min Bernadine GUAJARDOL [facility] [place] 08-30-2022 14:47-0500 Respiratory rate 16 /min Bernadine GUAJARDOL [facility] [place] 08-30-2022 14:47-0500 Systolic blood pressure 138 mm[Hg] Bernadine GUAJARDOL [employer] [facility] [place] 08-19-2021 14:30-0400 Body height 170.18 cm Shen Olexa Other [facility] Other 08-19-2021 14:30-0400 Body mass index (BMI) [Ratio] 31.04 kg/m2 Shen Olexa Other [facility] Other 08-19-2021 14:30-0400 Body weight 89.9 kg Shen Olexa Other [facility] Other 07-29-2021 14:30-0400 Body height 170.18 cm Shen Olexa Other [facility] Other 07-29-2021 14:30-0400 Body mass index (BMI) [Ratio] 31.32 kg/m2 Shen Olexa Other [facility] Other 07-29-2021 14:30-0400 Body weight 90.72 kg Shen Olexa Other [facility] Other Encounters Encounter Date Encounter Type Care Provider Facility Start: 11-29-2023 End: 11-29-2023 ambulatory TONYA DYE Not Available Start: 11-29-2023 End: 11-29-2023 Office outpatient visit 25 minutes Tonya Dye [employer] Work Phone: [facility] Comment on above: Primary hypertension (CMS/[facility]) (Primary Dx); BMI 29.0-29.9,adult; Type 2 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, without long-term current use of insulin, unspecified laterality, unspecified retinopathy severity ([facility]); Type 2 diabetes mellitus with diabetic neuropathy, without long-term current use of insulin (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; Ageusia; Peripheral vascular disease, unspecified (I73.9) Start: 11-29-2023 Bamboo flowsheet Tonya Dye [employer] Work Phone: [facility] Start: 11-29-2023 Bamboo flowsheet Tonya Dye [employer] Work Phone: [facility] Start: 10-31-2023 End: 10-31-2023 ambulatory SOL BAGLEY Not Available Start: 10-31-2023 Preprocedural examination done Tonya Dye [employer] Work Phone: [facility] Start: 10-24-2023 Office outpatient vi sit 15 minutes [facility] Start: 10-24-2023 End: 10-24-2023 ambulatory Tonya Dye Work Phone: [facility] Work Phone: Start: 10-24-2023 End: 10-24-2023 Patient encounter procedure Tonya Dye Work Phone: [facility] Start: 09-15-2023 End: 09-16-2023 ambulatory KRISHNA VALDES Not Available Start: 01-31-2023 End: 02-01-2023 ambulatory RUBBER SPLICER TONYA DYE Facility:[facility] Start: 01-27-2023 End: 01-28-2023 ambulatory RUBBER SPLICER TONYA HARDIK Facility:[facility] Start: 12-21-2022 End: 12-22-[address] OMID RICKS Facility:[facility] Start: 11-20-2022 Encounter for other preprocedural examination MR KRISHNA VALDES . [facility] Start: 11-18-2022 End: 11-19-2022 ambulatory MR KRISHNA VALDES . Facility:[facility] Start: 11-18-2022 End: 11-19-2022 Encounter for other preprocedural examination MR KRISHNA VALDES . Facility:[facility] Start: 10-25-2022 End: 10-26-2022 ambulatory [facility] Start: 10-25-2022 End: 10-25-2022 Patient encounter procedure Bernadine R NILL General [facility] Start: 10-12-2022 End: 10-13-2022 ambulatory Bernadine R NILL Facility:[id number] Start: 10-07-2022 ambulatory RUBBER SPLICER TONYA HARDIK [facility] ity:[facility] Start: 09-22-2022 End: 09-23-2022 ambulatory RUBBER SPLICER TONYA HARDIK Facility:[facility] Start: 08-30-2022 End: 08-31-2022 ambulatory [facility] NILL [facility] Start: 08-30-2022 End: 08-30-2022 Patient encounter procedure Bernadine R NILL General Surgery Nill/[facility] [place] Start: 08-03-2022 ambulatory Bernadine R CASANDRAL [facility] Start: 06-21-2022 End: 06-22-[address] OMID RICKS Facility:[facility] Start: 06-14-2022 End: 06-15-2022 ambulatory OLI DYE Facility:[facility] Start: 04-27-2022 End: 04-28-[address] BINDU WAGGONER Facility:[facility] Start: 04-14-2022 End: 04-15-2022 ambulatory OLI DYE Facility:[facility] Start: 04-06-2022 End: 04-07-2022 ambulatory RUBBER SPLICER TONYA DYE Facility:[facility] Start: 03-27-2022 End: 03-30-2022 Evaluation and management of inpatient DR IRENE GONZALEZ Facility:[facility] Start: 03-26-2022 End: 03-26-[address] IRENE GONAZLEZ Facility:[facility] Start: 12-16-2021 End: 12-16-2021 ambulatory Shen Olexa Other [facility] Other Start: 12-16-2021 Telephone encounter Shen Olexa [facility] Start: 12-14-2021 End: 12-14-2021 ambulatory Shen Olexa Other [facility] Other Start: 12-14-2021 Office outpatient vi sit 15 minutes Shen Olexa [facility] [place] Start: 08-19-2021 End: 08-19-2021 ambulatory Shen Olexa Other [facility] Other Start: 08-19-2021 Office outpatient vi sit 10 minutes Shen Olexa [facility] Start: 08-11-2021 Telephone encounter Krishna pan [facility] Start: 07-29-2021 Office outpatient ne w 30 minutes Shen Olexa [facility] [place] Procedures Date Procedure Procedure Detail Performing Clinician Start: 10-24-2023 Plain X-ray of bilat eral elbows Tonya Dye Work Phone: Start: 01-27-2023 PSA screening OLI DYE Comment on above: Performed By: #### B MP #### [facility] [address] [place] [address] Dr. Lucho De León Start: 10-12-2022 Excisional biopsy Blair PLATT Start: 03-28-2022 Inspection of Lower Intestinal Tract, Via Natural or Artificial Opening Endoscopic [facility] DYE Start: 03-28-2022 Inspection of Upper Intestinal Tract, Via Natural or Artificial Opening Endoscopic [facility] DYE Start: 03-26-2022 Transfusion of Nonau tologous Red Blood Cells into Peripheral Vein, Percutaneous Approach [facility] CALLAWAYZ Start: 11-10-2021 Endarterectomy and angioplasty of common femoral artery Bernadine PLATT Start: 03-09-2021 Angioplasty of super ficial femoral artery Bernadine GUAJARDOWolf Start: 10-16-2016 Colonoscopy Tonya myers [employer] Work Phone: Repair of musculoten dinous cuff of shoulder Bernadine GUAJARDOWolf Plan of Treatment Date Care Activity Detail Author Start: 10-16-2026 Screening for malign ant neoplasm of colon [facility] Start: 11-22-2024 Glaucoma screening Diabetes: R etinopathy Screening [facility] Start: 02-27-2024 End: 02-27-2024 Patient encounter procedure 02/27/2024 3:00 PM EDT Office Visit [facility] [address] [place] [id number] Tonya Dye, [employer] [address] [place] [phone] [facility] Start: 01-28-2024 Urine screening for protein Diabetes: Urine Protein Screening [facility] Start: 11-29-2023 End: 11-29-2023 Patient encounter procedure 11/29/2023 3:20 PM EST Office Visit [facility] [address] [place] [address] Tonya Dye, [employer] [address] [place] [phone] Arrived [facility] Comment on above: Arrived Start: 11-29-2023 End: 11-29-2024 CT Maxillofacial region WO and W contrast IV CT SINUS WO IV CONTRAST Imaging Routine 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) Expected: 11/29/2023 (Approximate), Expires: 11/29/2024 [facility] Work Phone: Comment on above: Expected: 11/29/2023 (Approximate), Expires: 11/29/2024 Start: 04-15-2023 Glaucoma screening Diabetes: R etinopathy Screening [facility] Start: 1950 Medicare Annual Well ness (AWV) Medicare Annual Wellness (AWV) [facility] Start: 1950 Screening for malign ant neoplasm of colon [facility] Immunizations Immunization Date Immunization Notes Care Provider Fa alyx 08-03-2023 Influenza, High-dose Seasonal, Quadrivalent, Preservative Free Tonya Aichholz [employer] Work Phone: [facility] 12-17-2022 zoster vaccine recombinant Tonya Aichholz [employer] Work Phone: [facility] 07-27-2022 influenza, injectabl e, quadrivalent, preservative free Tonya Aichholz [employer] Work Phone: [facility] 07-29-2021 Kenalog -40 mg Shen Olexa Other [employer] [facility] [employer] Other 12-24-2020 COVID-19 [id number].COV2.S (Venkatesh) Tonya Aichholz Work Phone: [facility] 09-07-2020 pneumococcal polysaccharide vaccine, 23 valent Shen Olexa Other [employer] [facility] [employer] Other 06-30-2020 influenza, injectabl e, quadrivalent, preservative free Tonya Aichholz [employer] Work Phone: [facility] 06-30-2020 influenza, seasonal, injectable Shen Olexa Other [employer] Other 08-07-2019 pneumococcal conjuga te vaccine, 13 valent Shen Olexa Other [employer] Other 07-25-2019 influenza, high dose seasonal, preservative-free Tonya Aminbasim [employer] Work Phone: [facility] 08-26-2017 zoster vaccine, live Tonya Kelley raygoza [employer] Work Phone: [facility] 08-01-2003 tetanus toxoid, adsorbed Tonya Aicdahianasyedaz [employer] Work Phone: [facility] Healthcare Payers Date Payer Category Payer Self-pay [id number] 2017 Unknown GENERIC OTHER GE NERIC OTHER [id number] 2017-Present [phone] [place] [id number] 2016 Medicare MEDICARE MEDICAR E PART B [id number] 2016-[place] [place] [address] Medicare [id number]. [id number] 1959 Medicare [id number] 2.16.840.1.648021.19 1959 Unknown [id number] 2.16.840.1.633669.19 1951 Unknown [id number] 2.16.840.1.325373.3.579.2.72 7 1951 Unknown [id number] 2.16.840.1.914107.3.579.2.72 7 1951 Unknown [id number] 2.16.840.1.089566.3.579.2.72 7 1951 Unknown [id number] 2.16.840.1.518507.3.579.2.72 7 1951 Unknown [id number] 2.16.840.1.614082.3.579.2.59 3 1951 Unknown [id number] 2.16.840.1.412111.3.579.2.59 3 1951 Unknown [id number] 2.16.840.1.901479.3.579.2.59 3 1951 Unknown [id number] 2.16.840.1.180548.3.579.2.59 3 1951 Unknown [id number] 2.16.840.1.231996.3.579.2.59 3 1951 Unknown [id number] 2.16.840.1.894959.3.579.2.59 3 1951 Unknown [id number] 2.16.840.1.601275.3.579.2.59 3 1951 Unknown [id number] 2.16.840.1.723586.3.579.2.59 3 1951 Unknown [id number] 2.16.840.1.003272.3.579.2.59 3 1951 Unknown [id number] 2.16.840.1.114778.3.579.2.59 3 1951 Unknown [id number] 2.16.840.1.948965.3.579.2.59 3 1951 Unknown [id number] 2.16.840.1.838967.3.579.2.59 3 1951 Unknown [id number] 2.16.840.1.599288.3.579.2.59 3 1951 Unknown [id number] 2.16.840.1.584503.3.579.2.59 3 1951 Unknown [id number] 2.16.840.1.567331.3.579.2.12 59 1951 Unknown [id number] 2.16.840.1.680893.3.579.2.12 59 1951 Unknown [id number] 2.16.840.1.195998.3.579.2.12 59 1951 Unknown [id number] 2.16.840.1.167205.3.579.2.12 59 1951 Unknown [id number] 2.16.840.1.541683.3.579.2.12 59 Unknown [facility] [id number] Unknown HCAP/HFA/FAP Active [id number] Unknown [id number] 2.16.840.1.065742.3.579.2.53 1 Social History Date Type Detail Facility Start: 10-31-2023 End: 11-29-2023 Sex [address]igned At [facility] Start: 08-30-2022 Tobacco smoking status Heavy t obacco smoker (finding) [facility] Tobacco smoking status Never [facility] Start: 03-14-2021 Tobacco smoking stat [facility] Smoker (finding) [facility] Start: 1950 Sex Assigned At Male [facility] Start: 10-30-2023 [facility] History of tobacco use Cigarette Smoker [facility] Start: 10-30-2023 End: 11-29-2023 Cigarettes smoked current (pack per day) - Reported 1 [facility] Start: 10-30-2023 Tobacco use and exposure Smokeless tobacco non-user [facility] Start: 11-29-2023 Alcohol intake Lifetime non-d heath (finding) [facility] Start: 1950 Sex Assigned At Not on file [facility] Medical Equipment Procedure Code Equipment Code Equipment Origin al Text Equipment Identifier Dates NovoFine 32G X 6 MM Start : 09-24-2020 Multiple periphe ral artery stent, bare-metal [id number] FDA Start: 03-09-2021 Functional Status Date Assessment Result Facility 08-30-2022 Functional Status N/A [facility] Benjamin makayla Gallagher Clinical Notes 03-09-2021 to 11-29-2023 Tonya Dye NP - 11/29/2023 4:38 PM Ilya Dye, SHIVAM - 11/29/2023 4:36 PM ESTTonya Dye, [employer] - 11/29/2023 4:34 PM ESTTonya Dye, [employer] - 11/29/2023 4:34 PM EST Note Date & Type Note Facility 11-29-2023 History of Presen t illness Narrative Associated Problem(s): 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 Take medications (pills or insulin) as directed. Monitor for s/s of hypoglycemia (sweaty, dizziness, nausea, vomiting, or shakiness). Watch for increase in thirst, urination, or appetite. Inspect feet frequently monitoring for open wounds , and also recommend yearly eye exam. Pt should attempt to remain as physically active as chronic conditions allow, as well as trying to follow a diet low in carbohydrates, and simple sugars. No changes in meds at this time 3 months ago 7.8% Associated Problem(s): HTN (hypertension) (CMS/HCC) No changes needed in medication regimine Left elbow- 6m no pain has psoriasis Right elbow-13m no pain has psoriasis Fluid from bursitis Had an eye exam last week-eyes were good the bleeding from diabetes has not gotten worse. Images from the original note were not included. Terri Thacker is a 73 y.o. male presents with chief complaint of No chief complaint on file. HPI: For the last 3-4 months has not been able to taste or smell. No active sinus symptoms Diabetes He presents for his follow-up diabetic visit. He has type 2 diabetes mellitus. No MedicAlert identification noted. His disease course has been stable. There are no hypoglycemic associated symptoms. Pertinent negatives for hypoglycemia include no dizziness, headaches, nervousness/anxiousness, seizures or tremors. Associated symptoms include foot paresthesias. Pertinent negatives for diabetes include no chest pain, no polydipsia, no polyphagia and no polyuria. There are no hypoglycemic complications. Symptoms are stable. Diabetic complications include peripheral neuropathy and PVD. Risk factors for coronary artery disease include diabetes mellitus, dyslipidemia, hypertension, male sex and tobacco exposure. Current diabetic treatment includes oral agent (dual therapy). He is compliant with treatment all of the time. He has not had a previous visit with a dietitian. He participates in exercise weekly. His overall blood glucose range is 140-180 mg/dl. An SANTOS inhibitor/angiotensin II receptor kayla is being taken. He does not see a mutual fund sales agent.Eye exam is current. Hypertension This is a chronic problem. The current episode started more than 1 year ago. The problem is unchanged. The problem is controlled. Pertinent negatives include no chest pain, headaches or peripheral edema. There are no associated agents to hypertension. Risk factors for coronary artery disease include diabetes mellitus, dyslipidemia and male gender. Past treatments include calcium channel blockers and beta blockers. The current treatment provides significant improvement. Hypertensive end-organ damage includes PVD. SUBJECTIVE: MEDICATIONS: Current Outpatient Medications Medication Instructions amLODIPine (NORVASC) 5 mg, Oral clopidogrel (PLAVIX) 75 mg, Oral, Daily RT cyanocobalamin (VITAMIN B-12) 1,000 mcg, Oral, Daily RT Farxiga 10 mg, Oral, Daily ferrous sulfate 325 mg, Oral, Daily with breakfast fluticasone (Flonase) 50 MCG/ACT nasal spray gabapentin (Neurontin) 400 MG capsule as directed, Refills(s) 0 glipiZIDE (GLUCOTROL) 10 mg, Oral, 2 times daily before meals metFORMIN (GLUCOPHAGE) 1,000 mg, Oral metoprolol tartrate (LOPRESSOR) 50 mg, Oral pioglitazone (ACTOS) 30 mg, Oral simvastatin (Zocor) 20 MG tablet tamsulosin (FLOMAX) 0.4 mg, Oral triamcinolone (Kenalog) 0.1 % cream Every 12 hours ALLERGIES: Allergies Allergen Reactions Ceclor [Cefaclor] Ciprofloxacin Unknown Dulaglutide Unknown Liraglutide Unknown Penicillin G Unknown REVIEW OF SYMPTOMS: Review of Systems Constitutional: Negative for activity change, appetite change and unexpected weight change. HENT: Positive for postnasal drip. Negative for ear pain, nosebleeds, sneezing, trouble swallowing and voice change. Loss of taste and smell Eyes: Negative for pain, discharge and visual disturbance. Respiratory: Negative for apnea, chest tightness and wheezing. Cardiovascular: Negative for chest pain and leg swelling. Gastrointestinal: Negative for abdominal distention, blood in stool, constipation and diarrhea. Genitourinary: Negative for decreased urine volume, difficulty urinating, dysuria and hematuria. Skin: Positive for rash (psoriasis). Negative for color change. Neurological: Negative for dizziness, tremors, seizures and headaches. Psychiatric/Behavioral: Negative for agitation, decreased concentration, hallucinations, self-injury and suicidal ideas. The patient is not nervous/anxious. Hematological: Negative for adenopathy. Does not bruise/bleed easily. Endocrine: Negative for cold intolerance, heat intolerance, polydipsia, polyphagia and polyuria. Allergic/Immunologic: Negative for environmental allergies and food allergies. 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 09/19/2023 Bilateral carpal tunnel syndrome BPH (benign prostatic hyperplasia) Bradycardia DDD (degenerative disc disease), cervical Diabetes (CMS/HCC) Diabetic polyneuropathy associated with type 2 diabetes mellitus (CMS/HCC) Foraminal stenosis of cervical region Frequent PVCs Hearing loss Heart murmur HTN (hypertension) (CMS/HCC) Hyperlipidemia (CMS/HCC) Incisional infection Lumbar radiculopathy 10/31/2023 Mass of both adrenal glands (CMS/HCC) Neck pain Olecranon bursitis of left elbow Olecranon bursitis of right elbow PAD (peripheral artery disease) (CMS/HCC) Peripheral neuropathy Popliteal cyst, right Psoriasis (CMS/HCC) PVD (peripheral vascular disease) (CMS/HCC) Retinopathy, diabetic, bilateral (CMS/HCC) Ringing in ears, right Seasonal allergies Sebaceous cyst Tobacco user Uncontrolled type 2 diabetes mellitus with hyperglycemia (CMS/HCC) Vitamin B12 deficiency Past Surgical History: Procedure Laterality Date CARPAL TUNNEL RELEASE Right 12/09/[address] AORTA AND BILATERAL ILIOFEMORAL RUNOFF ANGIOGRAM W AND/OR WO IV CONTRAST 09/07/2021 CT AORTA AND BILATERAL ILIOFEMORAL RUNOFF ANGIOGRAM W AND/OR WO IV CONTRAST 09/07/2021 ROTATOR CUFF REPAIR Left 2008 Dr Ribeiro ROTATOR CUFF REPAIR Right 2010 Dr Ribeiro ROTATOR CUFF REPAIR Right 2010 revised -Dr Luis SOFT TISSUE MASS EXCISION Right shoulder VASCULAR SURGERY 2021 right lower extremity bypass family history is not on file. OBJECTIVE: Visit Vitals BP 138/80 (BP Location: Left arm, Patient Position: Sitting, BP Cuff Size: Adult) Pulse 99 Temp 97.1 F (Temporal) Resp 20 Ht 5' 7 Wt 182 lb 3.2 oz SpO2 97% BMI 28.54 kg/m Smoking Status Every Day BSA 1.98 m Physical Exam Constitutional: Appearance: Normal appearance. HENT: Head: Normocephalic. Right Ear: Tympanic membrane, ear canal and external ear normal. There is impacted cerumen. Left Ear: Tympanic membrane, ear canal and external ear normal. There is impacted cerumen. Ears: Comments: Removed large amount of cerumen with spatula Nose: Congestion present. Mouth/Throat: Mouth: Mucous membranes are moist. Pharynx: Oropharynx is clear. Eyes: Extraocular Movements: Extraocular movements intact. Conjunctiva/sclera: Conjunctivae normal. Neck: Vascular: No carotid bruit. Cardiovascular: Rate and Rhythm: Normal rate and regular rhythm. Pulses: Normal pulses. Heart sounds: Normal heart sounds. No murmur heard. Pulmonary: Effort: Pulmonary effort is normal. Breath sounds: Normal breath sounds. No wheezing or rhonchi. Abdominal: General: Bowel sounds are normal. Palpations: Abdomen is soft. Musculoskeletal: General: Deformity present. Cervical back: Neck supple. Right lower leg: No edema. Left lower leg: No edema. Comments: Left elbow olacrenon bursitis Skin: General: Skin is warm and dry. Capillary Refill: Capillary refill takes 2 to 3 seconds. Findings: Rash (psoriasis bilat elbows extensor surfaces) present. Neurological: General: No focal deficit present. Mental Status: He is alert. Cranial Nerves: No cranial nerve deficit. Psychiatric: Mood and Affect: Mood normal. Behavior: Behavior normal. Thought Content: Thought content normal. Judgment: Judgment normal. ASSESSMENT AND PLAN: No follow-ups on file. 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) Relevant Orders Hemoglobin A1c HTN (hypertension) ([facility]) - Primary No changes needed in medication regimine Sebaceous cyst Still waiting on approval from [facility] to stop plavix for proceedure Age[facility] Relevant Orders CT SINUS WO IV CONTRAST documented in this encounter [facility] 10-24-2023 Evaluation note Encounter Date Diagnosis Assessment Notes Oct, Olecranon bursitis, left elbow (ICD-10 - M70.22) Radiographs reviewed in detail with patient. Advised he has bilateral olecranon bursitis, left worse than right. Discussed living with condition, aspiration, versus surgical excision of the bursa. Discussed risks and benefits of aspiration as well as surgical excision. As patient is nontender and the right one has improved recently, he opts to continue conservative treatment. Continue to monitor for signs and symptoms of infection, these were reviewed with patient. Advised he use a pad at the elbow to help cushion, and also instructed on compression wrapping as needed. Call with questions/ingrid rns. Oct, Olecranon bursitis, right elbow (ICD-10 - M70.21) Oct, Pain in left elbow (ICD-10 - M25.522) Oct, Pain in right elbow (ICD-10 - M25.521) [facility] 12-29-2022 Hospital Discharge instructions Follow Up Care 10/13/2022 10:40:40 With:MANJIT WILKINS, JULIA Mays Address: [address] [place], [place] [id number]- When: only if needed General Surgery [employer] [id number] NoteOPERATIVE NOTE OPERATION DATE: 10/12/2022 PREOPERATIVE DIAGNOSIS: Sebaceous cyst right shoulder. POSTOPERATIVE DIAGNOSIS: Sebaceous cyst right shoulder. PROCEDURE: Excisional biopsy sebaceous cyst right shoulder. SURGEON: Bernadine Platt M.D. ANESTHESIA: Local with 0.5% Marcaine plain. ESTIMATED BLOOD LOSS: Less than 3 mL. INDICATIONS AND CONSENT: Patient is a 72-year-old male with a long history of a cyst in the right posterior shoulder that has recently increased in size and became infected. It did respond to antibiotic therapy and shrunk back down. Now he presents for excisional biopsy. Indications, risks, benefits, alternatives of proceeding were explained extensively to the patient, including the risks of bleeding, infection, scarring, pain, recurrence, need for further surgery. All of his questions were answered. Informed consent was obtained. PROCEDURE: Patient brought to the operating room and placed in the left lateral decubitus position. He was prepped and draped in the usual sterile fashion. The area was anesthetized with 0.5% Marcaine. It was excised in elliptical fashion down to subcutaneous fat. Total length of the incision was 2 cm. The scarred cyst was sent off to Pathology. Hemostasis was controlled in the deep subcutaneous tissue using interrupted 4-0 Monocryl suture. The wound was then closed with 3-0 nylon horizontal mattress sutures, as well as 4-0 nylon simple sutures. There was good hemostasis. A sterile pressure dressing was applied. Sponge and needle counts were correct x2 per nursing personnel. Patient tolerated procedure well, was discharged back to the recovery area in good condition. CC: Tonya Dye, [facility]11-20-2022 NoteChief Complaint consultation for sebaceous cyst HPI Staff 72 year old male presents on consultation from Tonya Dye for sebaceous cyst right neck/shoulder. Reports cyst present 25 years. Never spontaneously opened and drained. Patient frequently manipulates this be squeezing and poking. 08/02- prescribed Bactrim BID x 10 days after increase in size andtenderness of cyst, he finished this. History of Present Illness 72 yo male with h/o DMII, htn, hyperlipidemia, referred for recently infected sebaceous cyst of right shoulder; was squeezing the area, drained with a pin; became very swollen and tender; completed antibiotics with improvement, no further drainage, decreasing in size; on baby asa and Plavix daily, no NSAIDs; smokes daily. Review of Systems PHQ Score Initial Depression Screen Score: 0 ROS - Provider Constitutional: no fever, no sweats, no weight loss. Eyes: no glasses, no blurred vision, no visual loss. ENMT: no dentures, no hoarseness, no swallowing difficulties, no hearing loss, no ear infection(s),no nose bleeds. Cardiovascular: normal blood pressure, no chest pain, regular heartbeat, no heart murmur. Respiratory: no shortness of breath, no cough, no asthma, no wheezing. Gastrointestinal: no nausea, no vomiting, no diarrhea, no constipation, no blood in stool, no change in bowel habits, no abdominal pain, no hepatitis. Genitourinary: no kidney stones, no urine infection, no dysuria. Musculoskeletal: yes pain, no weakness. Skin: no changing moles, no rash, yes skin lumps. Neurologic: no seizures, no epilepsy, no headache. Psychiatric: no emotional or psychiatric problem. Heme/Lymph: no bleeding problems, no anemia, no blood clots, no transfusions. Allergy/Immunologic: no swollen lymph nodes/glands, no IV drug abuse. Other: Additional ROS info: Except as noted in the above Review of Systems and in the History of Present Illness, all other systems have been reviewed and are negative or noncontributory. Physical Exam Vitals & Measurements HR: 76(Peripheral) RR: 16 BP: 138/82 HT: 67 in HT: 170 cm WT: 84 kg WT: 184.8 lb BMI: 29.07 HEENT: normal conjunctiva, sclera clear, no scleral icterus, EOM intact, PERRLA, oral mucosa moist without lesions. Neck: trachea midline, no mass, symmetric, no thyromegaly or nodules, no adenopathy Respiratory: lungs CTA, respirations non labored. Cardiovascular: regular rate and rhythm, no murmur, no pedal edema or varicosities. Lymphatic: no cervical adenopathy, Musculoskeletal: normal gait, digits and nails without infection, nodes, cyanosis, clubbing. Skin: no rashes, no lesions, no ulcers, right shoulder with 2.5 cm inflamed epidermal cyst; no openareas or drainage, no cellulitis Psychiatric/Neuro: oriented to time, place, person, judgement normal, affect appropriate for age, insight intact, no focal deficits. Tests: review of old records completed, Discussed surgical options, risks, and possible complications with patient. Assessment/Plan 1. Inflamed sebaceous cyst (L72.3: Sebaceous cyst) plan excisional biopsy under local anesthesia at [facility] once inflammation has decreased; approximately4 weeks; informed consent obtained; hold Plavix 5 days prior to OR. Follow-up No qualifying data available Problem List/Past Medical History Ongoing BMI 29.0-29.9,adult BPH (benign prostatic hyperplasia) Bradycardia Diabetes Diabetic neuropathy Diabetic retinopathy Diastolic dysfunction Hearing loss HTN (hypertension) Hyperlipidemia Inflamed sebaceous cyst Iron deficiency anemia Lumbar radiculopathy Mass of adrenal gland Obesity PAD (peripheral artery disease) Panic disorder PVCs (premature ventricular contractions) Seasonal allergies Tobacco user Vitamin B12 deficiency Historical No qualifying data Procedure/Surgical History Endarterectomy and angioplasty of common femoral artery (11/10/2021), SFA - Balloon angioplasty of superficial femoral artery (03/09/2021), Rotator cuff repair, Rotator cuff repair. Medications amLODIPine 5 mg Tab, 5 mg= 1 tab(s), Oral, Daily aspirin 81 mg Oral EC Tab, 81 mg= 1 tab(s), Oral, Daily cilostazol 100 mg Tab, 100 mg= 1 tab(s), Oral, BID clopidogrel 75 mg Tab Farxiga 5 mg oral tablet, 5 mg= 1 tab(s), Oral, Daily ferrous sulfate 325 mg oral enteric coated tablet, 325 mg= 1 tab(s), Oral, BID Flomax 0.4 mg Cap, 0.4 mg= 1 cap(s), Oral, Daily Flonase 0.05 mg/inh nasal spray, 2 spray(s), Nasal, Daily gabapentin 400 mg Cap Klonopin 0.5 mg Tab, 0.5 mg= 1 tab(s), Oral, BID, PRN metformin 1000 mg oral tablet, 1000 mg= 1 tab(s), Oral, BID Metoprolol tartrate 50 mg Tab, 50 mg= 1 tab(s), Oral, BID pioglitazone 30 mg Tab, 30 mg= 1 tab(s), Oral, Daily simvastatin 20 mg Tab, 20 mg= 1 tab(s), Oral, Once a day (at bedtime) Vitamin B12 1000 mcg Tab, 1000 mcg= 1 tab(s), Oral, Daily Zoloft 50 mg Tab, 50 mg= 1 tab(s), Oral, Daily Allergies Ceclor (Itching) Cipro (Itching) Victoza (Itchin (more content not included)...[facility] Center[facility]:Result Comment: Electronically Signed By: MANJIT WILKINS, Bernadine Calle\Date and Time Signed: 09/04/22 11:08 [id number] Evaluation note* Encounter Date Diagnosis Assessment Notes Treatment Notes Treatment Clinical Notes Dec, Arthritis of right knee (ICD-10 - M17.11) Discussed with patient due to his recent surgery and current blood clot we will no preform a cortisone injection at this time. We discussed and demonstrated gentle motion exericse to be performed daily, multiple times per day. Instructed patient to use heat to help with motion Dec, Acute deep vein thrombosis (DVT) of other specified vein of right lower extremity (ICD-10 - I82.491) [facility] 11-04-2021 Evaluation note* Encounter Date Diagnosis Assessment Notes Treatment Notes Treatment Clinical Notes Aug, Arthritis of right knee (ICD-10 - M17.11) Patient is doing well at this time. He will continue daily strengthening exercises and progress activity as tolerated [facility] 10-14-2021 Evaluation note* Encounter Date Diagnosis Assessment Notes Treatment Notes Treatment Clinical Notes Jul, Acute pain of right knee (ICD-10 - M25.561) Jul, Swelling of right knee joint (ICD-10 - M25.461) Jul, Arthritis of right knee (ICD-10 - M17.11) Radiographs reviewed with patient. The patient is likely suffering from early degenerative arthritis involving the knee. We discussed the conservative treatment options which can be beneficial in relieving pain, including gentle non-impact motion exercise and non-steroidal anti-inflammatory medication. We discussed the use of occasional cortisone injections that can provide pain relief as well as hyaluronan lubricant injection. We performed a marcaine / kenalog cortisone injection into the knee joint under sterile technique. Patient tolerated the injection well without adverse reaction. If no improvement, may consider MRI for further evaluation for meniscal tear. [facility] 05-25-2021 History general Narrative - Reported* Type Description Date Medical History type II diabetes Medical History HTN Medical History psoriasis Surgical History rotator cuff tear repair 011 Surgical History right leg angioplasty 03/09/21 Hospitalization History see [facility] Other 05-25-2021 History general Narrative - Reported* Type Description Date Medical History type II diabetes Medical History HTN Medical History psoriasis Medical History DVT Surgical History rotator cuff tear repair 011 Surgical History right leg angioplasty 03/09/21 Hospitalization History see surgical [facility] Other Evaluation + Plan note No data available for this section [facility] Evaluation noteNo InformationNort FortyCloud Other Evaluation noteNo assessment information available [facility] Work Phone: Evaluation note* Diagnosis Primary hypertension (CMS/HCC)- Primary Unspecified essential hypertension BMI 29.0-29.9,adult Type 2 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, without long- term current use of insulin, unspecified laterality, unspecified retinopathy severity (CMS/HCC) Sebaceous cyst 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 [facility]usia Disturbances of sensation of smell and taste Peripheral vascular disease, unspecified (I73.9) Peripheral vascular disease, unspecified [facility] No data available for this section [facility] Progress note No data available for this section General Surgery [facility] Summary Purpose Family History No Family History Records FoundNo Family History Records FoundNo Family History Records FoundNo Family History Records FoundNo Family History Records Found Advance Directives No Advanced Directives Records Found Advance Directive Response Recorded Date/ Time Advance Directives No March 04 12:18pm Reason for Referral Specialty Diagnoses / Procedures Referred By Shaye t Referred To Contact Diagnoses 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 Ageusia Procedures CT SINUS WO IV CONTRAST Tonya Dye NP [address] [place] [address] Referral ID Status Reason Start Date Expiration Date V isits Requested Visits Authorized [id number] Pending Review 11/29/2023 05/27/2024 1 1 Additional Source Comments (unrecognized sect ion and content) No Status Records FoundNo Status Records FoundNo Status Records FoundNo Status Records FoundNo Status Records Found INFORMATION SOURCE (unrecogn ized section and content) DATE CREATED AUTHOR 11/08/2021 [facility] DATE CREATED AUTHOR AUTHOR'S ORGANIZ ATION 10/26/2022 [facility] DATE CREATED AUTHOR AUTHOR'S ORGANIZ ATION 02/05/2023 [facility] DATE CREATED AUTHOR AUTHOR'S ORGANIZ ATION 11/24/2023 [facility] DATE CREATED AUTHOR AUTHOR'S ORGANIZ ATION 12/01/[address] [facility] EPIC REASON FOR VISIT (unrecogniz ed section and content) Right Knee PainClinicalReche ck Right KneeNo InformationRight Knee PainBilateral Elbow Pain Patient Care team informatio n (unrecognized section and content) Team Status: Active Member Role Status Dates Tonya Dye Primary Care Provider Active Team Status: Inactive Member Role Status Dates Tonya Dye Primary Care Provider Active Shen Luis MD Attending Provider Active Director Nursing Service Relationship Specialty Start Date End Date Mumtaz Harry MD [address] [place] [address] PCP - General Family Medicine 11/28/23 Tonya Dye NP [address] [place] [address] Referring Physician Nurse Practitioner 03/09/23 Director Nursing Service Relationship Specialty Start Date End Date Mumtaz Harry MD [address] [place] [address] PCP - General Family Medicine 11/28/23 Tonya Dye NP [address] [place] [address] Referring Physician Nurse Practitioner 03/09/23 Goals (unrecognized section and content) Goals may be documented in a n alternate section FOR RECORDS PERTAINING TO PATIENTS WHO ARE OR HAVE BEEN ENROLLED IN A CHEMICAL DEPENDENCY/SUBSTANCEABUSE PROGRAM, SOME INFORMATION MAY BE OMITTED. This clinical summary was aggregated from multiple sources. Caution should be exercised in using it in the provision of clinical care. This summary normalizes information from multiple sources, and as a consequence, information in this document may materially change the coding, format and clinical context of patient data. In addition, data may be omitted in some cases. CLINICAL DECISIONS SHOULD BE BASED ON THE PRIMARY CLINICAL RECORDS. [employer] provides no warranty or guarantee of the accuracy or completeness of information in this document.
[2023-12-05 13:56] LABS: Estimated Average Glucose 192 mg/dL; Glycohemoglobin A1C 8.3 % (4.5-6.2)
== END 2023-12-05 12:45 | disposition home or self-care (01) ==
LOC: CT 12:44
PROVIDERS: PCP Nurse Practitioner; Visit Provider Nurse Practitioner
DX: R43.0 Anosmia (principal); J34.89 Other specified disorders of nose and nasal sinuses; R43.2 Parageusia; E11.40 Type 2 diabetes mellitus with diabetic neuropathy, unspecified
CPT/HCPCS: 36415; 70486; 83036

== ENCOUNTER 2024-01-19 12:49 | Outpatient (OUT) | payer MEDICARE, OTHER, SELFPAY ==
[2024-01-19 13:47] LABS: Bilirubin Urine NEGATIVE (NEGATIVE); Blood Urine NEGATIVE (NEGATIVE); Clarity Urine CLEAR (CLEAR); Color Urine YELLOW (YELLOW); Glucose Urine UA >=1000 mg/dL (NEGATIVE); Ketones Urine NEGATIVE (NEGATIVE); Leukocyte Esterase Urine NEGATIVE (NEGATIVE); Nitrite Urine NEGATIVE (NEGATIVE); Protein Urine NEGATIVE (NEG/TRACE); Urobilinogen Urine 0.2 EU/dL (0.2-1.0); pH Urine 5.5 (5.0-9.0)
[2024-01-19 13:52] LABS: Urine Microscopic Indicated NO
== END 2024-01-19 12:50 | disposition home or self-care (01) ==
LOC: LAB 12:50
PROVIDERS: PCP Nurse Practitioner; Visit Provider Nurse Practitioner
DX: R33.9 Retention of urine, unspecified (principal)
CPT/HCPCS: 81003; 87086

== ENCOUNTER 2024-01-23 13:23 | Outpatient (OUT) | payer MEDICARE, OTHER, SELFPAY ==
--- NOTE | 2024-01-23 14:00 | CA_ITS ---
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 PVR waveforms with delayed upstroke, blunted amplitude and loss of dicrotic notch. Right: - no significant pressure gradient between cuffs - abnormal MALATHI Left: - significant pressure gradient between the brachial and thigh cuff - significant pressure gradient between the calf and DP cuff - abnormal MALATHI and TBI Impression: - significant arterial disease in the right lower extremity with mild hemodynamic impairment of the right lower extremity at rest (MALATHI 0.95) - significant inflow (femoral artery or above) and outflow (tibioperoneal) arterial disease with moderate hemodynamic impairment of the left lower extremity at rest (MALATHI 0.62) Electronically Signed On 01-23-2024 23:20:38 EDT by ROBERTO GODDARD
== END 2024-01-23 13:24 | disposition home or self-care (01) ==
LOC: CARD 13:23
PROVIDERS: PCP Nurse Practitioner
DX: I73.9 Peripheral vascular disease, unspecified (principal); E66.9 Obesity, unspecified; Z68.34 Body mass index [BMI] 34.0-34.9, adult
CPT/HCPCS: 93923

== ENCOUNTER 2024-01-25 11:51 | Emergency (ER) | payer MEDICARE, OTHER, SELFPAY ==
[2024-01-25 11:56] VITALS: BP 155/76; PULSE 97; TEMP 36.7; O2SAT 98; BMI 28.0
--- NOTE | 2024-01-25 12:54 | ED.ABDPAIN1 ---
HPI - Abdominal Pain General Chief Complaint: Abdominal Pain Stated Complaint: ABDOMINAL PAIN Time Seen by Provider: 01/25/24 12:53 Source: patient Mode of arrival: walk-in History of Present Illness HPI narrative: This is a 73-year-old male who has abdominal discomfort. It has been bothering him for at least the last 3 days perhaps a little longer. It just gotten much worse. He did see his primary care doctor who checked his urine and told him it was normal. He does have a history of prostatic hypertrophy. He has a history of diverticular disease and was actually admitted to this hospital previously and had lower GI bleeding. He had upper and lower GI by Dr. collins at that time. He is not currently on any antibiotics. He said he has had both constipation and diarrhea. He has not had his appendix or gallbladder removed previously. He is not running a fever at home that he is aware of. Related Data Home Medications ?Medication ?Instructions ?Recorded ?Confirmed clopidogrel 75 mg tablet 75 mg PO DAILY 01/25/24 01/25/24 dapagliflozin propanediol 10 mg 10 mg PO DAILY 01/25/24 01/25/24 tablet (Farxiga) gabapentin 400 mg capsule 400 mg PO QID 01/25/24 01/25/24 glipizide 10 mg tablet 10 mg PO BID 01/25/24 01/25/24 metformin 1,000 mg tablet 1,000 mg PO BID 01/25/24 01/25/24 metoprolol tartrate 50 mg tablet 50 mg PO BID 01/25/24 01/25/24 pioglitazone 45 mg tablet 45 mg PO DAILY 01/25/24 01/25/24 simvastatin 20 mg tablet 20 mg PO DAILY 01/25/24 01/25/24 tamsulosin 0.4 mg capsule 0.4 mg PO DAILY 01/25/24 01/25/24 Allergies Allergy/AdvReac Type Severity Reaction Status Date / Time ciprofloxacin [From Cipro] Allergy Severe Verified 01/25/24 12:01 dulaglutide [From Trulicity] Allergy Severe Verified 01/25/24 12:02 liraglutide [From Victoza] Allergy Severe Verified 01/25/24 12:02 Penicillins Allergy Severe Verified 01/25/24 12:01 Exam Narrative Exam Narrative: Patient is awake and alert pleasant does not appear ill. He is afebrile. Examination lungs he has no wheeze rales or rhonchi no respiratory distress. Heart sounds are normal. His belly is somewhat bloated and gaseous. He has tenderness in the suprapubic area and the left lower quadrant. No guarding or rebound or rigidity. No tenderness at McBurney's point Patel sign is also negative. His extremities appear normal. Skin is warm and dry with no pallor or diaphoresis. Neurological examination is normal he is a good historian. Constitutional Vital Signs, click to edit/add: Last Vital Signs Temp 98.1 F 01/25/24 11:56 Pulse 97 H 01/25/24 11:56 Resp 20 01/25/24 11:56 BP 155/76 H 01/25/24 11:56 Pulse Ox 98 01/25/24 11:56 O2 Del Method Room Air 01/25/24 11:56 Course Vital Signs Vital signs: Vital Signs Temperature 98.1 F 01/25/24 11:56 Pulse Rate 97 H 01/25/24 11:56 Respiratory Rate 20 01/25/24 11:56 Blood Pressure 155/76 H 01/25/24 11:56 Pulse Oximetry 98 01/25/24 11:56 Oxygen Delivery Method Room Air 01/25/24 11:56 Temperature 98.1 F 01/25/24 11:56 Pulse Rate 97 H 01/25/24 11:56 Respiratory Rate 20 01/25/24 11:56 Blood Pressure 155/76 H 01/25/24 11:56 Pulse Oximetry 98 01/25/24 11:56 Oxygen Delivery Method Room Air 01/25/24 11:56 MDM - Abdominal Pain MDM Narrative Medical decision making narrative: We did ask this patient to void and a postvoid residual volume was 300 cc. When he tried again he was unable to void another 250 cc. His white blood cell count is normal. My clinical diagnosis is diverticular disease and in fact the CT scan discloses uncomplicated diverticular disease. Will be started on Bactrim and Flagyl because of his history of allergies. He was to be on bowel rest for the next 3 days. He is to follow-up with his primary care doctor. Discharge Plan Discharge Stand Alone Forms: Portal Instructions Chief Complaint: Abdominal Pain Clinical Impression: Diverticulitis Patient Disposition: Home, Self-Care Time of Disposition Decision: 15:17 Prescriptions / Home Meds: No Action clopidogrel 75 mg tablet 75 mg PO DAILY dapagliflozin propanediol [Farxiga] 10 mg tablet 10 mg PO DAILY metformin 1,000 mg tablet 1,000 mg PO BID metoprolol tartrate 50 mg tablet 50 mg PO BID simvastatin 20 mg tablet 20 mg PO DAILY tamsulosin 0.4 mg capsule 0.4 mg PO DAILY pioglitazone 45 mg tablet 45 mg PO DAILY glipizide 10 mg tablet 10 mg PO BID gabapentin 400 mg capsule 400 mg PO QID Print Language: [place] Additional Instructions: Clear fluid diet for 2 or 3 days, slowly advancing when symptoms improved. Bactrim and Flagyl/returning for any problems Referrals: Tonya Dye [employer] MESSAGE [employer]OUTER [Primary Care Provider] - 1 week
--- NOTE | 2024-01-25 12:55 | CT_ITS ---
[address] [address] Patient Name: TERRI LOWE MRN: [id number] date: 1950 Sex: M Assigned Patient Location: ER Current Patient Location: Accession/Order Number: [id number] Exam Date: 01/25/2024 14:00 Report Date: 01/25/2024 14:46 At the request of: JOSEPH INFANTE Procedure: CT abdomen pelvis w con CT abdomen and pelvis with contrast CLINICAL: Lower abdominal pain, history of diverticular lower abdominal pain for 10 days. Constipation and diarrhea. COMPARISON: 02/17/2016 and 03/26/2022. TECHNIQUE: Computed tomography of the abdomen and pelvis was performed following the uneventful administration of 99 cc Omnipaque 300 intravenous contrast. Dose reduction: mA and/or kV are adjusted by automated exposure control software based on patient size. FINDINGS: There is a short segment of wall thickening and inflammation of the proximal sigmoid in the left lower quadrant (image 97 series 3, image 48 series 5), with a background of severe diverticulosis affecting sigmoid and left colon. Findings compatible with focal sigmoid diverticulitis. There is diverticulosis throughout the remainder of the colon without inflammation. Small bowel is normal. There is a normal appendix. Liver, gallbladder and spleen are normal in appearance. There are few tiny calcifications at the pancreatic head, otherwise normal in appearance. There are bilateral adrenal gland nodules. On the right, the nodule at the lateral limb measures 2.7 x 1.5 cm. The left adrenal gland, the lesion in the body measures 3.2 x 3.0 cm, and a smaller nodule in the lateral limb measures 1.3 cm. The adrenal nodules have been present since CT in 2016. Mild perinephric stranding of both kidneys probably physiologic or from chronic renal disease. There are small left renal cysts. No hydronephrosis. There are several bladder diverticula, largest is along the posterior bladder right of midline measuring 3.6 cm. Mildly enlarged prostate gland with median lobe hypertrophy and prostate calcifications. There is atherosclerosis of the abdominal aorta and branch vessels. No abdominal aortic aneurysm. Hepatic veins and portal veins patent. There is a mildly enlarged dannielle hepatis lymph node measuring 2.5 x 1.7 cm (image 46 series 3), unchanged from 2016. Few shotty retroperitoneal lymph nodes. No abdominal or pelvic lymphadenopathy. No free fluid, abscess, or free air. Mild degenerative changes of the spine. No acute osseous abnormality. CT/CT abdomen pelvis w con IMPRESSION: 1. Focal acute uncomplicated diverticulitis of proximal sigmoid colon, without free fluid, abscess, or free air. There is a background of severe diverticulosis involving left colon and sigmoid. 2. Normal appendix. 3. Normal appearance of gallbladder. 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 Pancreas otherwise normal. 4. Mild prostatomegaly with median lobe hypertrophy. Also several bladder diverticula measuring up to 3.6 cm. 5. Mildly enlarged dannielle hepatis lymph node that is unchanged in 2016. 6. Bilateral adrenal gland nodules that are incompletely characterized on today's study but also seen in 2016, reflecting benign lesions given stability across this time frame and likely adenomas. 7. Small left renal cysts and additional incidental findings as described. Electronically authenticated by: MARIE HEWITT Date: 01/25/2024 14:46
[2024-01-25 13:10] LABS: Basophils Percent Auto 0.3 % (0.2-2.0); Eosinophils Absolute Auto 0.1 10^3/uL (0.0-0.7); Eosinophils Percent Auto 0.8 % (0.9-7.0); Hematocrit 54.1 % (42.0-54.0); Hemoglobin 18.1 g/dL (14.0-18.0); Immature Granulocytes Abs Auto 0.03 10^3/uL (0.00-0.03); Immature Granulocytes Pct Auto 0.3 % (0.0-0.5); Lymphocytes Absolute Auto 1.6 10^3/uL (1.2-3.8); Lymphocytes Percent Auto 17.8 % (20.5-60.0); Mean Corpuscular HGB Conc 33.5 g/dL (29.9-35.2); Mean Corpuscular Hemoglobin 31.4 pg (25.9-34.0); Mean Corpuscular Volume 93.8 fL (80.0-94.0); Mean Platelet Volume 9.8 fL (9.5-13.5); Monocytes Percent Auto 11.9 % (1.7-12.0); Neutrophils Percent Auto 68.9 % (43.0-75.0); Platelet Count 190 10^3/uL (150-450); Red Blood Count 5.77 10^6/uL (4.70-6.10); Red Cell Distribution Width 14.3 % (11.0-15.0); White Blood Count 8.7 10^3/uL (4.0-11.0)
[2024-01-25 13:14] LABS: Bilirubin Urine NEGATIVE (NEGATIVE); Blood Urine NEGATIVE (NEGATIVE); Clarity Urine CLEAR (CLEAR); Color Urine LT. YELLOW (YELLOW); Glucose Urine UA >=1000 mg/dL (NEGATIVE); Ketones Urine NEGATIVE (NEGATIVE); Leukocyte Esterase Urine NEGATIVE (NEGATIVE); Nitrite Urine NEGATIVE (NEGATIVE); Protein Urine NEGATIVE (NEG/TRACE); Specific Gravity Urine 1.015 (1.005-1.025); Urobilinogen Urine 0.2 EU/dL (0.2-1.0)
[2024-01-25 13:15] LABS: Urine Microscopic Indicated NO
[2024-01-25 13:30] LABS: Alanine Aminotransferase 26 U/L (16-63); Albumin Globulin Ratio 0.8; Albumin Level 3.7 g/dL (3.4-5.0); Alkaline Phosphatase 97 U/L (46-116); Anion Gap 14.7; Aspartate Amino Transferase 12 U/L (15-37); BUN Creatinine Ratio 16.4; Bilirubin Total 0.5 mg/dL (0.2-1.0); Calcium 9.8 mg/dL (8.5-10.1); Carbon Dioxide 26.2 mmol/L (21.0-32.0); Chloride 100 mmol/L (98-107); Estimated GFR (African America >60 (>=60); Estimated GFR (Non-African Ame >60 (>=60); Globulin 4.5 g/dL; Glucose 197 mg/dL (74-106); Potassium 3.9 mmol/L (3.5-5.1); Sodium 137 mmol/L (136-145); Total Protein 8.2 g/dL (6.4-8.2)
[2024-01-25 13:33] LABS: Lactate/Lactic Acid 1.4 mmol/L (0.4-2.0)
[2024-01-25] MEDS: METRONIDAZOLE/SODIUM CHLORIDE 500 MG/100 ML PREMIX 100 MG IV (15:22)
[2024-01-25] MEDS: SULFAMETHOXAZOLE/TRIMETHOPRIM 800-160 MG TABLET 1 TAB PO (15:22)
[2024-01-25 16:28] VITALS: BP 161/87; PULSE 88; O2SAT 98
== END 2024-01-25 16:32 | disposition home or self-care (01) ==
PROVIDERS: Emergency Provider Emergency Medicine Emergency Medical Services; PCP Nurse Practitioner
DX: K57.32 Diverticulitis of large intestine without perforation or abscess without bleeding (principal); Z79.899 Other long term (current) drug therapy; Z79.84 Long term (current) use of oral hypoglycemic drugs
CPT/HCPCS: 36415; 74177; 80053; 81003; 83605; 83690; 85025; 87507; 96365; 99285; Q9967

== ENCOUNTER 2024-02-05 14:40 | Outpatient (OUT) | payer MEDICARE, OTHER, SELFPAY ==
--- NOTE | 2024-02-05 14:55 | MR_ITS ---
The [address] [address] Patient Name: TERRI LOWE MRN: [id number] date: 1950 Sex: M Assigned Patient Location: LAB Current Patient Location: LAB Accession/Order Number: [id number] Exam Date: 02/05/2024 15:00 Report Date: 02/05/2024 16:48 At the request of: LYNN VALLECILLO Procedure: MR head/brain wo/w con MR head/brain wo/w con, 02/05/2024 3:00 PM EDT INDICATION: Dysomia R43.9 COMPARISON: Prior CT of the sinuses dated 12/05/2023 TECHNIQUE: Multiplanar, multisequential MRI images of brain were obtained without and with injection of contrast. FINDINGS: The cerebral sulci as well as ventricular system are appropriate for age. There is no restricted diffusion. Hyperintensities on T2 and FLAIR images in the suresh radiata and centrum semiovale with sparing of U fibers are nonspecific, statistically most likely consistent with microvascular ischemic changes. There is no intracranial mass, mass effect, midline shift, intra or extra-axial fluid collection or large hemorrhage. No abnormal enhancing lesion is noted. No abnormality of the olfactory nerves. Normal flow-void in the intracranial vessels is noted. The visualized portions of orbits, mastoid air cells as well as paranasal sinuses are unremarkable. MR/MR head/brain wo/w con IMPRESSION: No acute intracranial process is noted. No definite radiological finding to explain patient's symptoms. Electronically authenticated by: BEN KAHN Date: 02/05/2024 16:48
[2024-02-05 14:56] LABS: Estimated GFR (African America >60 (>=60); Estimated GFR (Non-African Ame >60 (>=60)
== END 2024-02-05 14:41 | disposition home or self-care (01) ==
LOC: LAB 14:40
PROVIDERS: PCP Nurse Practitioner; Visit Provider Otolaryngology
DX: R43.9 Unspecified disturbances of smell and taste (principal)
CPT/HCPCS: 36415; 70553; 82565; A9575

== ENCOUNTER 2024-03-05 14:12 | Outpatient (OUT) | payer MEDICARE, OTHER, SELFPAY ==
--- OUTSIDE RECORDS SUMMARY | 2024-03-05 14:31 | XMS_ITS | CCD ---
Author Organization [facility] Care Team Providers Care Mainspring Strip Gauger Name Role Phone Shen Luis Unavailable Krishna Ocasio Unavailable [phone] TONYA DYE Primary Care Physician [phone] Bernadine PLATT Attending Unavailable TONYA DYE Referring Unavailabl Bernadine Mehta Attending Unavailable TONYA DYE Referring Unavailabl e Bernadine PLATT Attending Unavailable Bernadine PLATT Attending Unavailable AICHHOLZ, ELECTRIC LIFT TRUCK DRIVER TONYA Consulting Unavailable AICHHOLZ, ELECTRIC LIFT TRUCK DRIVER TONYA Primary Care Unavailable AICHHOLZ, ELECTRIC LIFT TRUCK DRIVER TONYA Attending Unavailable AICHHOLZ, ELECTRIC LIFT TRUCK DRIVER TONYA Admitting Unavailable AICHHOLZ, ELECTRIC LIFT TRUCK DRIVER TONYA Consulting Unavailable AICHHOLZ, ELECTRIC LIFT TRUCK DRIVER TONYA Primary Care Unavailable AICHHOLZ, ELECTRIC LIFT TRUCK DRIVER TONYA Attending Unavailable AICHHOLZ, ELECTRIC LIFT TRUCK DRIVER TONYA Admitting Unavailable PRIETO, DR BHAVANA Pinzon Consulting Unavailable ABBAS, DR ANNE Consulting Unavailable AICHHOLZ, ELECTRIC LIFT TRUCK DRIVER TONYA Primary Care Unavailable ABBAS, DR ANNE Attending Unavailable ABBVICKY, DR ANNE Admitting Unavailable PRIETO, DR BHAVANA Pinzon Consulting Unavailable VALDES ., MR KRISHNA Consulting Unavailable AICHHOLZ, ELECTRIC LIFT TRUCK DRIVER TONYA Primary Care Unavailable VALDES ., MR KRISHNA Attending Unavailable VALDES ., MR KRISHNA Admitting Unavailable AICHHOLZ, ELECTRIC LIFT TRUCK DRIVER TONYA Consulting Unavailable AICHHOLZ, ELECTRIC LIFT TRUCK DRIVER TONYA Primary Care Unavailable AICHHOLZ, ELECTRIC LIFT TRUCK DRIVER TONYA Attending Unavailable AICHHOLZ, ELECTRIC LIFT TRUCK DRIVER TONYA Admitting Unavailable ZIMARGARITO, DR BHAVANA Pinzon Consulting Unavailable DR IRENE GONZALEZ Procedure Practitioner Unavaila DR IRENE Yang Consulting Unavailable SHAIKH Tucker PUENTES Attending Unavailable SHAIKH Tucker PUENTES Admitting Unavailable AICHHOLZ, ELECTRIC LIFT TRUCK DRIVER TONYA Primary Care Unavailable NISHANTILLIS ., DR BERNADINE Pink Consulting Unavaila ble GRILLIS ., DR BERNADINE Pink Procedure Practitioner U IAN Caputo Consulting Unavailable SHAIKH Tucker PUENTES Consulting Unavailable SID KWONG Consulting Unavailable BHAVANA MCCANN Consulting Unavailable NILL ., DR COLINDRES Consulting Unavailable AICHHOLZ, ELECTRIC LIFT TRUCK DRIVER TONYA Primary Care Unavailable NILL ., DR COLINDRES Attending Unavailable NILL ., DR COLINDRES Admitting Unavailable MEJIA JOINER Consulting Unavailable AICHHOLZ, ELECTRIC LIFT TRUCK DRIVER TONYA Primary Care Unavailable NILL ., DR COLINDRES Attending Unavailable NILL ., DR COLINDRES Admitting Unavailable CARLOS, DR IRENE Pinzon Consulting Unavailable GONZALEZ, DR IRENE Pinzon Attending Unavailable GONZALEZ, DR IRENE Pinzon Admitting Unavailable AICHHOLZ, ELECTRIC LIFT TRUCK DRIVER TONYA Primary Care Unavailable ROSARIO BLANCO Consulting Unavailable AICHHOLZ, ELECTRIC LIFT TRUCK DRIVER TONYA Consulting Unavailable AICHHOLZ, ELECTRIC LIFT TRUCK DRIVER TONYA Primary Care Unavailable AICHHOLZ, ELECTRIC LIFT TRUCK DRIVER TONYA Attending Unavailable AICHHOLZ, ELECTRIC LIFT TRUCK DRIVER TONYA Admitting Unavailable AICHHOLZ, ELECTRIC LIFT TRUCK DRIVER TONYA Consulting Unavailable AICHHOLZ, ELECTRIC LIFT TRUCK DRIVER TONYA Primary Care Unavailable AICHHOLZ, ELECTRIC LIFT TRUCK DRIVER TONYA Attending Unavailable AICHHOLZ, ELECTRIC LIFT TRUCK DRIVER TONYA Admitting Unavailable AICHHOLZ, ELECTRIC LIFT TRUCK DRIVER TONYA Consulting Unavailable AICHHOLZ, ELECTRIC LIFT TRUCK DRIVER TONYA Primary Care Unavailable AICHHOLZ, ELECTRIC LIFT TRUCK DRIVER TONYA Attending Unavailable AICHHOLZ, ELECTRIC LIFT TRUCK DRIVER TONYA Admitting Unavailable ABBAS, DR ANNE Consulting Unavailable AICHHOLZ, ELECTRIC LIFT TRUCK DRIVER TONYA Primary Care Unavailable ABBAS, DR ANNE Attending Unavailable MILLICENT, DR ANNE Admitting Unavailable ROSALINE, DR BINDU Brown Consulting Unavailable AICHHOLZ, ELECTRIC LIFT TRUCK DRIVER TONYA Primary Care Unavailable AICHHOLZ, ELECTRIC LIFT TRUCK DRIVER TONYA Attending Unavailable AICHHOLZ, ELECTRIC LIFT TRUCK DRIVER TONYA Admitting Unavailable AICHHOLZ, ELECTRIC LIFT TRUCK DRIVER TONYA Consulting Unavailable Aichholz, Tonya J Primary Care Provider [phone] MD Shen Luis Attending Provider Aichholz PLUGGER MAN, Tonya Unavailable Mumtaz Harry MD Primary Care Provider [phone] Ranulfo Bagley Attending Unavailable Aichholz, Tonya J Primary Care Unavailable Ranulfo Bagley Admitting Unavailable OleShen rivas Admitting Unavailable OleShen rivas Attending Unavailable Aichholz, Tonya J Primary Care Unavailable Ranulfo Bagley Admitting Unavailable Ranulfo Bagley Attending Unavailable Aichholmelva, Tonya Reynolds Primary Care Unavailable MALIKA CHAND Attending Unavailable AICHHOLZ, TONYA J Referring Unavailable AICHHOLZ, TONYA J Primary Care Unavailable RANULFO BAGLEY Attending Unavailable MUMTAZ HARRY Referring Unavailable AICHHOLZ, TONYA Attending Unavailable TIMMILYNN Bryant Attending Unavailable AICHHOLMelva, TONYA Referring Unavailable LAFRANULFO DAILEY Attending Unavailable RANULFO BAGLEY Attending Unavailable NADERERMUMTAZ Referring Unavailable TIMMISLYNN H Attending Unavailable KRISHNA VALDES Attending Unavailable VALDESKRISHNA Referring Unavailable AICHHOLZ, TONYA Attending Unavailable TIMMIS, LYNN Ceballos Attending Unavailable AICHHOLMelva, TONYA Attending Unavailable Allergies Allergy Classification Reported Allergen(s) Allergy Type Date of Onset Reaction(s) Facility (14 sources) Ciprofloxacin; Translations: [ciprofloxacin] Drug Allergy 03-14-20 21 Itching (finding), Unknown [facility] [place] (11 sources) liraglutide; Translations: [liraglutide] Drug Allergy 11-07-19 20 Itching (finding) [facility] [place] (4 sources) liraglutide; Translations: [Victoza] Drug Allergy 03-26-20 22 rash [facility] Repository (7 sources) Penicillin; Translations: [penicillin] Drug Allergy Itching (finding) [facility] [place] (5 sources) Penicillin V Drug Allergy Unknown gopogo [facility] [employer] Other (8 sources) Pollen Propensity to adverse reactions Unknown gopogo [facility] [employer] Other (7 sources) Cefaclor; Translations: [cefaclor] Drug Allergy 09-19-20 23 Itching (finding) [facility] [place] (2 sources) Ciprofloxacin; Translations: [Cipro] Drug Allergy 04-30-20 21 [facility] Repository (1 source) Cefaclor Drug Allergy [facility] Repository (1 source) dulaglutide Drug Allergy 03-26-20 22 [facility] Repository (1 source) insulin aspart, human Drug Allergy 03-27-20 22 [facility] Repository (1 source) Penicillin Drug Allergy 03-26-20 22 [facility] Repository (3 sources) Penicillins; Translations: [Penicillins] Allergy to substance 11-07-[address] [facility] (4 sources) dulaglutide; Translations: [DULAGLUTIDE] Drug Allergy 11-05-19 Unknown [facility] (3 sources) liraglutide Drug Allergy 03-09-20 Unknown [facility] (3 sources) Penicillin G Drug Allergy 03-09-20 Unknown [facility] (1 source) Cefaclor Drug Allergy 12-27-[address] [facility] Repository (1 source) Ciprofloxacin Drug Allergy 12-27-[address] [facility] Repository (1 source) dulaglutide Drug Allergy 12-27-[address] [facility] Repository (1 source) liraglutide Drug Allergy 12-27-[address] [facility] Repository (1 source) Pollen Drug allergy (disorder) 12-27-[address] [facility] Repository Medications Current Medications Medication Drug Class(es) Dates Sig (Normalized) Sig (Original) amLODIPine 5 mg oral tablet (13 sources) Dihydropyridine Calcium Channel Shima Start: 03-09-2021 amLODIPine (Norvasc) 5 MG tablet [...] 10 mg by mouth in the morni Farxiga 10 MG Take 10 mg by mouth in the morning. 0 Active ferrous sulfate 325 mg delayed release oral tablet (12 sources) Start: 08-24-2022 take 1 tablet by mouth twice daily ferrous sulfate 325 mg oral enteric coated tablet 325 mg = 1 tab(s), Oral, BID, Refills(s) 0 Start Date: 08/24/22 Status: Ordered take 1 tablet by mouth at [facility] ferrous sulfate 325 (65 Fe) MG tablet [...] 08, 2021 11:00pm take 1 capsule by mo [facility] every eight hours Gabapentin 300 MG 1 capsule Orally three times a day for 90 days Active glipiZIDE 10 mg oral tablet (10 sources) Sulfonylurea Start: 03-09-2021 take 10 mg by mouth once daily Glipizide Active 10 MG PO Daily March 08, 2021 11:00pm take 1 tablet by [facility] twice daily 30 minutes before lunch glipiZIDE 10 mg TAKE 1 TABLET 30 MINUTES BEFORE LUNCH AND DINNER Orally twice a day for 90 day(s) Active metFORMIN hydrochloride 1000 mg oral tablet (13 sources) Biguanide Start: 03-09-2021 metFORMIN (Glu cophage) 1000 MG tablet Take 1,000 mg by mouth. 0 08/24/2022 Active metoprolol tartrate 50 mg oral tablet (13 sources) beta-Adrenergic Shima Start: 08-24-2022 metoprolol tartrate (Lopressor) 50 MG [...] tablet (13 sources) HMG-CoA Reductase Inhibitor Start: 05-25-2021 simvastatin (Zocor) 20 MG tablet tamsulosin hydrochloride 0.4 mg oral capsule (13 sources) alpha-Adrenergic Shima Start: 08-24-2022 take 1 capsule by mouth every twenty-four hours tamsulosin (Flomax) 0.4 MG 24 hr capsule Take 0.4 mg by mouth. 0 08/24/2022 Active Start: 03-09-2021 take 1 capsule by [facility] once daily Flomax 0.4 mg Cap 0.4 [...] Translations: [Parageusia] Onset: 4 11-29-2023 Episodic Other nervous system disorders (1 source) Claudication Onset: 4 Episodic Other non-traumatic joint disorders (2 sources) [...] Translations: [Sebaceous cyst] Onset: 0 Episodic Other skin disorders (2 sources) Epidermal cyst; Translations: [EPIDERMAL CYST] Onset: 3 Episodic Other upper respiratory disease (12 sources) Seasonal allergy; Translations: [Other seasonal allergic rhinitis] Onset: 4 08-24-2022 Chronic Other upper respiratory disease (3 sources) Allergic rhinitis; Translations: [Allergic rhinitis, unspecified] Onset: 4 11-29-2023 Chronic Peripheral and visceral atherosclerosis (18 sources) Peripheral vascular disease, unspecified; Translations: [Atherosclerosis of [place] arteries of extremities with rest pain, bilateral [...] EXPOS COVID-19] Onset: 2 Unclassified (1 source) Encounter for preprocedural laboratory examination; Translations: [Encounter for preprocedural laboratory examination] Onset: 4 Unclassified (1 source) Pain in right elbow; Translations: [Pain in right elbow] Onset: 4 Unclassified (1 source) PAD Onset: 4 Past or Other Problems Problem [...] Onset: 04-04-2022 Episodic Other aftercare (1 source) intermediate (current) use of aspirin; Translations: [CUSTODIAL CURRENT USE OF ASPIRIN] Onset: 10-20-2022 Episodic Other aftercare (1 source) Other tank terminal gauger (current) drug therapy; Translations: [OTH CUSTODIAL CURRENT DRUG THERAPY] Onset: 10-20-2022 Episodic Other aftercare (1 source) buttermaker 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 churn (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) use of 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 latelets; Translations: [SCREW MACHINE ADJUSTER AUTOMATIC ANTITHROMBOT/ANTIPLAT LETS] Onset: 10-20-2022 Episodic Other aftercare (1 source) intermediate (current) use of oral hypoglycemic drugs; Translations: [CUSTODIAL USE ORAL HYPOGLYCEMIC DX] Onset: 10-20-2022 Episodic [...] cyst; Translations: [SEBACEOUS CYST] Onset: 10-12-2022 Episodic Phlebitis; thrombophlebitis and thromboembolism (1 source) [...] Test Name Value Interpretation Reference Range Facility Glucose Poct Glucometerson 0 12-27-2023 Glucose [Mass/Vol] 139 mg/dL Normal [facility] Comment on above: Result Comment: [facility] Glucose Reference Range is dependent on time and content of last meal. Glucose of more than 200 mg/dL in a nonstressed, ambulatory subject supports the diagnosis of Diabetes Mellitus. PERFORMED BY: [facility] [address] [id number] PATHOLOGIST WAIST PLEATER ANGELES PAUL M.D. Performed By: #### G LULS #### Point of Care testing , Commemt1 Glu2: Cleaned Meter Normal [facility] Comment on above: Result Comment: PERF ORMED BY: [facility] [address] [facility] [place] [address] PATHOLOGIST WAIST PLEATER ANGELES PAUL M.D. Performed By: #### G LULS #### Point of Care testing , Glucose [Mass/Vol] 166 mg/dL Normal [facility] Comment on above: Result Comment: [facility] Glucose Reference Range is dependent on time and content of last meal. Glucose of more than 200 mg/dL in a nonstressed, ambulatory subject supports the diagnosis of Diabetes Mellitus. Performed By: #### G LULS #### Point of Care testing , Magdiel 12-27-2023 L Specimen: [id number] Received: 12/28/23 [facility] Num: [id number] Spec Type: Surgical Subm Dr: Ranulfo Bagley DO Tissues: A Skin Cyst (SEBACEOUS CYST RT SHOULDER) Procedures: HE, Gross/Micro L3 Age/ Patient Sex Location Account Attending Physician Darin Thacker Gail 73/M [place] [id number] Ranulfo Bagley DO SPEC NUM: [id number] RECD: 12/28/23 STATUS: GLADISAdan PABLO NUM: [id number] ZORA: 12/27/[address]: Ranulfo Bagley DO ENTERED: 12/28/23 [facility] DR: SPEC TYPE: Surgical DEPT: S ORDERED: HE, Gross/Micro L3 ORDERED: HE, Gross/Micro L3 Pathological Diagnosis Sebaceous cyst, excision: - Epidermal inclusion cyst. Clinical Information Sebaceous cyst Gross Description Received in formalin labeled with the patient's name, date of and sebaceous cyst is a 3.7 x 1.0 cm ellipse of orona-shaw skin excised to a depth of 1.4 cm. The specimen is inked and sectioned revealing a 1.4 cm in diameter cystic structure containing caseous, orona-shaw material. The surrounding tissue is firm, yellow-shaw.. Box Feeder sections are submitted in one cassette labeled A1. Microscopic Description Microscopic evaluation supports the above rendered diagnosis. CPT Codes 36538 Specimen: [id number] Received: 12/28/23 Status: JERMAINE Pablo Num: [id number] Spec Type: Surgical Subm Dr: Ranulfo Bagley, Tissues: A Skin Cyst (SEBACEOUS CYST RT SHOULDER) Procedures: HE, Gross/Micro L3 Patient: Darin Thacker [id number] (Continued) Signed (signature on file) Hillary Rosenbaum MD 12/29/[address] [facility] Basic Metabolic Panelon 03-0 Anion gap [Moles/Vol] 10.4 mmol/L Normal 6.0-15.0 [facility] Comment on above: Performed By: #### B MP, SCAN CBC #### [facility] [address] Calcium [Mass/Vol] 9.5 mg/dL Normal 8.6-10.3 [facility] Comment on above: Result Comment: PERF ORMED BY: [facility] [address] [place] [address] PATHOLOGIST WAIST PLEATER ANGELES PAUL M.D. Performed By: #### B MP, SCAN CBC #### [facility] [address] [place] [address] [place] Chloride [Moles/Vol] 105 mmol/L Normal 98-107 [facility] Comment on above: Performed By: #### B MP, SCAN CBC #### [facility] [address] [place] [id number] [place] CO2 [Moles/Vol] 24.3 mmol/L Normal 21.0-31.0 [facility] Comment on above: Performed By: #### B MP, SCAN CBC #### [facility] [address] [place] [address] [place] Creatinine [Mass/Vol] 0.66 mg/dL Low 0.70-1.30 [facility] Comment on above: Performed By: #### B MP, SCAN CBC #### [facility] [address] [place] [address] [place] GFR/1.73 sq M.predicted MDRD (S/P/Bld) [Vol rate/Area] mL/min/{1.73_m2} Normal [facility] Comment on above: Performed By: #### B MP, SCAN CBC #### [facility] [address] [place] [address] [place] Glucose [Mass/Vol] 129 mg/dL High 70-100 [facility] Comment on above: Result Comment: [facility] Glucose Reference Range is dependent on time and content of last meal. Glucose of more than 200 mg/dL in a nonstressed, ambulatory subject supports the diagnosis of Diabetes Mellitus. ADA recommended reference range Performed By: #### B MP, SCAN CBC #### [facility] [address] [place] [address] [place] Potassium [Moles/Vol] 4.7 mmol/L Normal 3.5-5.1 [facility] Comment on above: Performed By: #### B MP, SCAN CBC #### [facility] [address] [place] [id number] [place] Sodium [Moles/Vol] 135 mmol/L Low 136-145 [facility] Comment on above: Performed By: #### B MP, SCAN CBC #### [facility] [address] [place] [id number] [place] Urea nitrogen [Mass/Vol] 18 mg/dL Normal 7-[address] [facility] Comment on above: Performed By: #### B MP, SCAN CBC #### [facility] [address] ECG 12 lead ECGon 12-20-2023 ECG 12 lead ECG [facility] Main [place] [address] [place] [address] Electrocardiograph Report Signed Patient: Darin Thacker MR#: [id number] 96 : 1950 Acct:[id number] Age/Sex: 73 / M ADM Date: 12/20/23 Loc: Room: Type: [facility] Attending Dr: Ranulfo Bagley DO Ordering Provider: Ranulfo Bagley DO Date of Service: 12/20/2304/08/905 ECG/ECG 12 lead ECG: pst Copies to: Test Reason : Blood Pressure : / mmHG Vent. Rate : 065 BPM Atrial Rate : 065 BPM P-R Int : 234 ms QRS Dur : 086 ms QT Int : 392 ms P-R-T Axes : 067 077 105 degrees QTc Int : 407 ms Sinus rhythm with 1st degree AV block Otherwise normal ECG When compared with ECG of 14-MAR-2021 10:14, ID interval has increased Vent. rate has decreased BY 43 BPM Nonspecific T wave abnormality now evident in Lateral leads Confirmed by Laurent Livingston ([id number]) on 12/20/2023 7:43:38 PM Referred By: YUDI Electronically Signed By:Laurent Livingston Transcribed By: MUS Signed By Laurent Livingston MD 12/20/231942 Normal [facility] Scan and CBCon 12-20-2023 Basophils (Bld) [#/Vol] 0.0 10*3/uL Normal 0.0-0.[address] [facility] Comment on above: Result Comment: PERF ORMED BY: [place] [address] PATHOLOGIST WAIST PLEATER ANGELES PAUL M.D. Performed By: #### B MP, SCAN CBC #### [facility] [address] [place] [address] Basophils/100 WBC (Bld) 0.6 % Normal . [facility] Comment on above: Performed By: #### B MP, SCAN CBC #### [facility] [address] Eosinophils (Bld) [#/Vol] 0.1 10*3/uL Normal 0.0-0.[address] [facility] Comment on above: Performed By: #### B MP, SCAN CBC #### [facility] [address] Eosinophils/100 WBC (Bld) 1.4 % Normal . [facility] Comment on above: Performed By: #### B MP, SCAN CBC #### [facility] [address] Erythrocyte distribution width (RBC) [Ratio] 14.5 % Normal 12.0-14.[address] [facility] Comment on above: Performed By: #### B MP, SCAN CBC #### [address] Hematocrit (Bld) [Volume fraction] 53.7 % High 38.8-50.[address] [facility] Comment on above: Performed By: #### B MP, SCAN CBC #### [address] Hemoglobin (Bld) [Mass/Vol] 18.3 g/dL High 13.0-17.[address] [facility] Comment on above: Performed By: #### B MP, SCAN CBC #### [address] Lymphocytes (Bld) [#/Vol] 1.6 10*3/uL Normal 1.00-4.[address] [facility] Comment on above: Performed By: #### B MP, SCAN CBC #### [place] [address] [place] Lymphocytes/100 WBC (Bld) 22.2 % Normal . [facility] Comment on above: Performed By: #### B MP, SCAN CBC #### [facility] [address] [place] [address] MCH (RBC) [Entitic mass] 31.7 pg Normal 27.5-35.[address] [facility] Comment on above: Performed By: #### B MP, SCAN CBC #### [place] [address] MCV (RBC) [Entitic vol] 92.8 fL Normal 83.5-[address] [facility] Comment on above: Performed By: #### B MP, SCAN CBC #### [address] Mean Corpuscular HGB Conc 34.1 g/dL Normal 32.5-35.[address] [facility] Comment on above: Performed By: #### B MP, SCAN CBC #### [address] Monocytes (Bld) [#/Vol] 0.7 10*3/uL Normal 0.0-0.[address] [facility] Comment on above: Performed By: #### B MP, SCAN CBC #### [address] Monocytes/100 WBC (Bld) 9.8 % Normal . [facility] Comment on above: Performed By: #### B MP, SCAN CBC #### [address] Neutrophils (Bld) [#/Vol] 4.8 10*3/uL Normal 1.8-7.[address] [facility] Comment on above: Performed By: #### B MP, SCAN CBC #### [address] Neutrophils/100 WBC (Bld) 66.0 % Normal . [facility] Comment on above: Performed By: #### B MP, SCAN CBC #### [address] NRBC% 0.4 /100{WBC} Normal 0-0.[address] [facility] Comment on above: Performed By: #### B MP, SCAN CBC #### [address] Platelet Estimate Normal Normal Normal [facility] Comment on above: Performed By: #### B MP, SCAN CBC #### [address] Platelet mean volume (Bld) [Entitic vol] 8.1 fL Normal 6.6-10.[address] [facility] Comment on above: Performed By: #### B MP, SCAN CBC #### [facility] [address] [place] [address] Platelet Morphology Normal Normal Normal [facility] Comment on above: Result Comment: PERF ORMED BY: [place] [address] PATHOLOGIST WAIST PLEATER ANGELES PAUL M.D. Performed By: #### B MP, SCAN CBC #### [facility] [address] [place] [address] [place] Platelets (Bld) [#/Vol] 206 10*3/uL Normal 150-[address] [facility] Comment on above: Performed By: #### B MP, SCAN CBC #### [facility] [address] [place] [address] RBC (Bld) [#/Vol] 5.78 10*6/uL High 3.90-5.60 [facility] Comment on above: Performed By: #### B MP, SCAN CBC #### [facility] [address] [place] [address] RBC morphology finding Nom (Bld) Normal Normal Normal [facility] Comment on above: Performed By: #### B MP, SCAN CBC #### [facility] [address] [place] [address] [place] WBC (Bld) [#/Vol] 7.3 10*3/uL Normal 4.1-10.5 [facility] Comment on above: Performed By: #### B MP, SCAN CBC #### [facility] [address] [place] [address] [place] XR elbow BI 2Von 10-24-2023 XR elbow BI 2V [facility] Main [place] [address] [place] [address] XRay Report Signed Patient: Darin Thacker MR#: [id number] 96 : 1950 Acct:[id number] Age/Sex: 73 / M ADM Date: 10/24/23 Loc: SOXD Room: Type: REG CLI Attending Dr: Shen Luis MD Copies to: [...] PROCESS. Impression dictated by: Dustin Gordon Jr., D.O.10/24/2023 2:29 PM Dictation Location: [place] [address] Transcribed By: [facility] 10/24/23 1429 Dictated By: Dustin Gordon Jr, DO 10/24/23 1428 Signed By: 10/24/[address] [facility] [address] ABDOMEN WO/W CONon 2022 CT ABDOMEN [...] BHAVANA MOREAU Date: 2023-01-31 16:31 Normal [facility] CBC AUTO DIFFon 01-27-2023 BASO # 0.0 103/ul Normal 0.0-0.1 [facility] Comment on above: Performed By: #### B MP #### [facility] [address] [address] [address] Lucho De León Basophils/100 WBC (Bld) 0.6 % Normal 0.2-2.0 [facility] Comment on above: Performed By: #### B MP #### [facility] [address] [address] [address] Lucho De León EO # 0.1 103/ul Normal 0.0-0.7 [facility] Comment on above: Performed By: #### B MP #### [facility] [address] [address] [address] Lucho De León Eosinophils/100 WBC (Bld) 1.4 % Normal 0.9-7.0 [facility] Comment on above: Performed By: #### B MP #### [facility] [address] [address] [address] Lucho De León Erythrocyte distribution width (RBC) [Ratio] 13.7 % Normal 11.0-15.0 [facility] Comment on above: Performed By: #### B MP #### [facility] [address] [address] [address] Lucho De León Hematocrit (Bld) [Volume fraction] 51.2 % Normal 42.0-54.0 [facility] Comment on above: Performed By: #### B MP #### [facility] [address] [address] [address] Lucho De León Hemoglobin (Bld) [Mass/Vol] 17.5 g/dL Normal 14.0-18.0 [facility] Comment on above: Performed By: #### B MP #### [facility] [address] [place] [address] Dr. Lucho De León IG # 0.02 10e3/ul Normal 0.00-0.03 [facility] Comment on above: Performed By: #### B MP #### [facility] [address] [place] [address] Dr. Lucho De León IG % 0.3 % Normal 0.0-0.5 [facility] Comment on above: Performed By: #### B MP #### [facility] [address] [place] [address] Dr. Lucho De León LYMPH # 1.5 103/ul Normal 1.2-3.8 [facility] Comment on above: Performed By: #### B MP #### [facility] [address] [place] [address] Dr. Lucho De León Lymphocytes/100 WBC (Bld) 22.1 % Normal 20.5-60.0 [facility] Comment on above: Performed By: #### B MP #### [facility] [address] [place] [address] Dr. Lucho De León MANUAL DIFF REQ NO Normal [facility] Comment on above: Performed By: #### B MP #### [facility] [address] [place] [address] Dr. Lucho De León MCH (RBC) [Entitic mass] 31.0 pg Normal 25.9-34.0 [facility] Comment on above: Performed By: #### B MP #### [facility] [address] [place] [address] Dr. Lucho De León MCHC (RBC) [Mass/Vol] 34.2 g/dL Normal 29.9-35.2 [facility] Comment on above: Performed By: #### B MP #### [facility] [address] [place] [address] Dr. Lucho De León MCV (RBC) [Entitic vol] 90.6 fL Normal 80.0-94.0 [facility] Comment on above: Performed By: #### B MP #### [facility] [address] [address] [address] Lucho De León MONO # 0.7 103/ul Normal 0.3-0.8 [facility] Comment on above: Performed By: #### B MP #### [facility] [address] [place] [address] Dr. Lucho De León Monocytes/100 WBC (Bld) 10.7 % Normal 1.7-12.0 [facility] Comment on above: Performed By: #### B MP #### [facility] [address] [place] [address] Dr. Lucho De León NEUT # 4.3 103/ul Normal 1.4-6.5 [facility] Comment on above: Performed By: #### B MP #### [facility] [address] [place] [address] Dr. Lucho De León Neutrophils/100 WBC (Bld) 64.9 % Normal 43.0-75.0 [facility] Comment on above: Performed By: #### B MP #### [facility] [address] [place] [address] Dr. Lucho De León Platelet mean volume (Bld) [Entitic vol] 9.1 fL Critically low 9.5-13.5 [facility] Comment on above: Performed By: #### B MP #### [facility] [address] [place] [address] Dr. Lucho De León PLT 220 103/ul Normal 150-450 [facility] Comment on above: Performed By: #### B MP #### [facility] [address] [address] [address] Lucho De León RBC 5.65 106/ul Normal 4.70-6.10 [facility] Comment on above: Performed By: #### B MP #### [facility] [address] [place] [address] Dr. Lucho De León WBC 6.6 103/ul Normal 4.0-11.0 [facility] Comment on above: Performed By: #### B MP #### [facility] [address] [place] [address] Dr. Lucho De León GLYCOHEMOGLOBIN A1Con 2022 ADA RECOMMENDATION SEE BELOW Normal [facility] Comment on above: Result Comment: ADA RECOMMENDED LIMIT 4.0 - 6.0 ADA THERAPEUTIC TARGET < 7.0 ACTION SUGGESTED > 7.0 Performed By: #### C VDTB #### [facility] [address] [address] [address] Lucho De León Glucose [Mass/Vol] 209 mg/dL Normal [facility] Comment on above: Performed By: #### C VDTBH #### [facility] [address] [place] [address] Dr. Lucho De León HbA1c (Bld) [Mass fraction] 8.9 % Critically high 4.5-6.2 [facility] Comment on above: Performed By: #### C ALYSSA #### [facility] [address] [place] [address] Dr. Lucho De León IRONon 01-27-2023 Iron [Mass/Vol] 59.0 ug/dL Critically low 65.0-175.0 [facility] Comment on above: Performed By: #### B MP #### [facility] [address] [place] [address] Dr. Lucho De León LIPID PROFILEon 01-27-2023 CHOL-HDL RATIO NORM SEE BELOW Normal [facility] Comment on above: Result Comment: 3.3 - 4.4 LOW RISK 4.4 - 7.1 AVERAGE RISK 7.1 - 11.0 MODERATE RISK >11.0 HIGH RISK Performed By: #### B MP #### [facility] [address] [place] [address] Dr. Lucho De León Cholesterol [Mass/Vol] 177 mg/dL Normal <=200 [facility] Comment on above: Performed By: #### B MP #### [facility] [address] [place] [address] Dr. Lucho De León Cholesterol in HDL [Mass/Vol] 50 mg/dL Normal 40-60 [facility] Comment on above: Performed By: #### B MP #### [facility] [address] [place] [address] Dr. Lucho De León Cholesterol in LDL [Mass/Vol] 89.2 mg/dL Normal [facility] Comment on above: Performed By: #### B MP #### [facility] [address] [address] [address] Lucho De León Cholesterol.total/Cho lesterol in HDL [Mass ratio] 3.5 {ratio} Normal [facility] Comment on above: Performed By: #### B MP #### [facility] [address] [address] [address] Lucho De León HDL NORMAL > or = 60 mg/dl - LOW CARDIOVASCULAR RISK <40 mg/dl - HIGH CARDIOVASCULAR RISK Normal [facility] Comment on above: Performed By: #### B MP #### [facility] [address] [place] [address] Dr. Lucho De León LDL CALC NORMAL SEE BELOW Normal [facility] Comment on above: Result Comment: <100 mg/dl OPTIMAL 100 - 129 mg/dl NEAR OR ABOVE OPTIMAL 130 - 159 mg/dl BORDERLINE HIGH 160 - 189 mg/dl HIGH >190 mg/dl VERY HIGH Performed By: #### B MP #### [facility] [address] [place] [address] Dr. Lucho De León Triglyceride [Mass/Vol] 189 mg/dL Critically high <=150 [facility] Comment on above: Performed By: #### B MP #### [facility] [address] [place] [address] Dr. Lucho De León VLDL CALC 37.8 mg/dL Normal [facility] Comment on above: Performed By: #### B MP #### [facility] [address] [place] [address] Dr. Lucho De León MICROALBUMIN, RAND URon 04- mALB 7.6 mg/L Normal <=30.0 [facility] Comment on above: Performed By: #### M ALBR #### [facility] [address] [place] [address] Dr. Lucho De León PROF 14(COMP METB)on 023 Albumin [Mass/Vol] 3.6 g/dL Normal 3.4-5.0 [facility] Comment on above: Performed By: #### B MP #### [facility] [address] [place] [address] Dr. Lucho De León Albumin/Globulin [Mass ratio] 0.9 {ratio} Normal [facility] Comment on above: Performed By: #### B MP #### [facility] [address] [place] [address] Dr. Lucho De León ALP [Catalytic activity/Vol] 95 U/L Normal 46-116 [facility] Comment on above: Performed By: #### B MP #### [facility] [address] [place] [address] Dr. Lucho De León ALT [Catalytic activity/Vol] 26 U/L Normal 16-63 [facility] Comment on above: Performed By: #### B MP #### [facility] [address] [place] [address] Dr. Lucho De León Anion gap [Moles/Vol] 16.7 mmol/L Normal [facility] Comment on above: Performed By: #### B MP #### [facility] [address] [place] [address] Dr. Lucho De León AST [Catalytic activity/Vol] 13 U/L Critically low 15-37 [facility] Comment on above: Performed By: #### B MP #### [facility] [address] [place] [address] Dr. Lucho De León Bilirubin [Mass/Vol] 0.3 mg/dL Normal 0.2-1.0 [facility] Comment on above: Performed By: #### B MP #### [facility] [address] [place] [address] Dr. Lucho De León Calcium [Mass/Vol] 9.7 mg/dL Normal 8.5-10.1 [facility] Comment on above: Performed By: #### B MP #### [facility] [address] [place] [address] Dr. Lucho De León Chloride [Moles/Vol] 103 mmol/L Normal 98-107 [facility] Comment on above: Performed By: #### B MP #### [facility] [address] [place] [address] Dr. Lucho De León CO2 [Moles/Vol] 24.9 mmol/L Normal 21.0-32.0 [facility] Comment on above: Performed By: #### B MP #### [facility] [address] [address] [address] Lucho De León Creatinine [Mass/Vol] 0.81 mg/dL Normal 0.70-1.30 [facility] Comment on above: Performed By: #### B MP #### [facility] [address] [address] [address] Lucho De León EGFR-AF MOZAMBICAN >60 Normal >=60 [facility] Comment on above: Performed By: #### B MP #### [facility] [address] [place] [address] Dr. Lucho De León EGFR-NON AF MOZAMBICAN >60 Normal >=60 [facility] Comment on above: Performed By: #### B MP #### [facility] [address] [place] [address] Dr. Lucho De León Globulin (S) [Mass/Vol] 4.2 g/dL Normal [facility] Comment on above: Performed By: #### B MP #### [facility] [address] [place] [address] Dr. Lucho De León Glucose [Mass/Vol] 156 mg/dL Critically high 74-106 [facility] Comment on above: Performed By: #### B MP #### [facility] [address] [place] [address] Dr. Lucho De León Potassium [Moles/Vol] 4.6 mmol/L Normal 3.5-5.1 [facility] Comment on above: Performed By: #### B MP #### [facility] [address] [address] [address] Lucho De León Protein [Mass/Vol] 7.8 g/dL Normal 6.4-8.2 [facility] Comment on above: Performed By: #### B MP #### [facility] [address] [place] [address] Dr. Lucho De León Sodium [Moles/Vol] 140 mmol/L Normal 136-145 [facility] Comment on above: Performed By: #### B MP #### [facility] [address] [place] [address] Dr. Lucho De León Urea nitrogen [Mass/Vol] 15.0 mg/dL Normal 7.0-18.0 [facility] Comment on above: Performed By: #### B MP #### [facility] [address] [place] [address] Dr. Lucho De León Urea nitrogen/Creatinine [Mass ratio] 18.5 mg/mg Normal [facility] Comment on above: Performed By: #### B MP #### [facility] [address] [place] [address] Dr. Lucho De León UA RANDOM W/MICROSCOPICon BACTERIA NONE SEEN Normal NONE SEEN [facility] Comment on above: Performed By: #### C BC #### [facility] [address] [place] [address] Dr. Lucho De León Bilirubin Ql (U) Negative Normal NEGATIVE [facility] Comment on above: Performed By: #### C BC #### [facility] [address] [place] [address] Dr. Lucoh De León CAST NONE SEEN Normal NONE SEEN [facility] Comment on above: Performed By: #### C BC #### [facility] [address] [place] [address] Dr. Lucho De León Clarity (U) CLEAR Normal CLEAR [facility] Comment on above: Performed By: #### C BC #### [facility] [address] [place] [address] Dr. Lucho De León Color (U) LT. YELLOW Normal YELLOW [facility] Comment on above: Performed By: #### C BC #### [facility] [address] [place] [address] Dr. Lucho De León Crystals LM Nom (Urine sed) NONE SEEN Normal NONE SEEN [facility] Comment on above: Performed By: #### C BC #### [facility] [address] [place] [address] Dr. Lucho De León Epithelial cells LM Ql (Urine sed) NONE SEEN Normal NONE SEEN /RARE [facility] Comment on above: Performed By: #### C BC #### [facility] [address] [address] [address] Lucho De León Glucose Ql (U) 1000 mg/dl Abnormal NEGATIVE [facility] Comment on above: Performed By: #### C BC #### [facility] [address] [address] [address] Lucho De León Hemoglobin Ql (U) Negative Normal NEGATIVE [facility] Comment on above: Performed By: #### C BC #### [facility] [address] [address] [address] Lucho De León Ketones Ql (U) Negative Normal NEGATIVE [facility] Comment on above: Performed By: #### C BC #### [facility] [address] [place] [address] Dr. Lucho De León LEUKOCYTES Negative Normal NEGATIVE [facility] Comment on above: Performed By: #### C BC #### [facility] [address] [place] [address] Dr. Lucho De León MUCOUS NONE SEEN Normal NONE SEEN [facility] Comment on above: Performed By: #### C BC #### [facility] [address] [place] [address] Dr. Lucho De León Nitrite Ql (U) Negative Normal NEGATIVE [facility] Comment on above: Performed By: #### C BC #### [facility] [address] [place] [address] Dr. Lucho De León pH (U) 5.5 [pH] Normal 5-9 [facility] Comment on above: Performed By: #### C BC #### [facility] [address] [place] [address] Dr. Lucho De León RBC NONE SEEN Abnormal 0-2 [facility] Comment on above: Performed By: #### C BC #### [facility] [address] [place] [address] Dr. Lucho De León SPEC GRAVITY 1.020 Normal 1.005-<=1.025 [facility] Comment on above: Performed By: #### C BC #### [facility] [address] [address] [address] Lucho De León UA PROTEIN Negative Normal NEGATIVE/ TRACE [facility] Comment on above: Performed By: #### C BC #### [facility] [address] [address] [address] Lucho De León Urobilinogen Qn (U) 0.2 {Danny'U}/dL Normal 0.2 - 1. 0 [facility] Comment on above: Performed By: #### C BC #### [facility] [address] [place] [address] Dr. Lucho De León WBC NONE SEEN Normal NONE SEEN [facility] Comment on above: Performed By: #### C BC #### [facility] [address] [place] [address] Dr. Lucho De León US CAROTID ART BILon 023 US CAROTID ART AIMEE EXAMINATION: US [...] BHAVANA MOREAU Date: 2022-12-20 16:32 Normal [facility] CBC AUTO DIFFon 11-18-2022 BASO # 0.1 103/ul Normal 0.0-0.1 [facility] Comment on above: Performed By: #### H GBHCT #### [facility] [address] [address] [address] Lucho De León Basophils/100 WBC (Bld) 0.6 % Normal 0.2-2.0 [facility] Comment on above: Performed By: #### H GBHCT #### [facility] [address] [address] [address] Lucho De León EO # 0.1 103/ul Normal 0.0-0.7 [facility] Comment on above: Performed By: #### H GBHCT #### [facility] [address] [address] [address] Lucho De León Eosinophils/100 WBC (Bld) 1.1 % Normal 0.9-7.0 [facility] Comment on above: Performed By: #### H GBHCT #### [facility] [address] [place] [address] Dr. Lucho De León Erythrocyte distribution width (RBC) [Ratio] 13.6 % Normal 11.0-15.0 [facility] Comment on above: Performed By: #### H GBHCT #### [facility] [address] [place] [address] Dr. Lucho De León Hematocrit (Bld) [Volume fraction] 56.1 % Critically high 42.0-54.0 [facility] Comment on above: Performed By: #### H GBHCT #### [facility] [address] [place] [address] Dr. Lucho De León Hemoglobin (Bld) [Mass/Vol] 17.8 g/dL Normal 14.0-18.0 [facility] Comment on above: Performed By: #### H GBHCT #### [facility] [address] [place] [address] Dr. Lucho De León IG # 0.02 10e3/ul Normal 0.00-0.03 [facility] Comment on above: Performed By: #### H GBHCT #### [facility] [address] [place] [address] Dr. Lucho De León IG % 0.2 % Normal 0.0-0.5 [facility] Comment on above: Performed By: #### H GBHCT #### [facility] [address] [place] [address] Dr. Lucho De León LYMPH # 1.6 103/ul Normal 1.2-3.8 [facility] Comment on above: Performed By: #### H GBHCT #### [facility] [address] [place] [address] Dr. Lucho De León Lymphocytes/100 WBC (Bld) 19.3 % Critically low 20.5-60.0 [facility] Comment on above: Performed By: #### H GBHCT #### [facility] [address] [address] [address] Lucho De León MANUAL DIFF REQ NO Normal [facility] Comment on above: Performed By: #### H GBHCT #### [facility] [address] [address] [address] Lucho De León MCH (RBC) [Entitic mass] 31.0 pg Normal 25.9-34.0 [facility] Comment on above: Performed By: #### H GBHCT #### [facility] [address] [address] [address] Lucho De León MCHC (RBC) [Mass/Vol] 31.7 g/dL Normal 29.9-35.2 [facility] Comment on above: Performed By: #### H GBHCT #### [facility] [address] [place] [address] Dr. Lucho De León MCV (RBC) [Entitic vol] 97.6 fL Critically high 80.0-94.0 [facility] Comment on above: Performed By: #### H GBHCT #### [facility] [address] [address] [address] Lucho De León MONO # 0.7 103/ul Normal 0.3-0.8 [facility] Comment on above: Performed By: #### H GBHCT #### [facility] [address] [address] [address] Lucho De León Monocytes/100 WBC (Bld) 8.1 % Normal 1.7-12.0 [facility] Comment on above: Performed By: #### H GBHCT #### [facility] [address] [address] [address] Lucho De León NEUT # 5.7 103/ul Normal 1.4-6.5 [facility] Comment on above: Performed By: #### H GBHCT #### [facility] [address] [place] [address] Dr. Lucho De León Neutrophils/100 WBC (Bld) 70.7 % Normal 43.0-75.0 [facility] Comment on above: Performed By: #### H GBHCT #### [facility] [address] [address] [address] Lucho De León Platelet mean volume (Bld) [Entitic vol] 10.6 fL Normal 9.5-13.5 [facility] Comment on above: Performed By: #### H GBHCT #### [facility] [address] [address] [address] Lucho De León PLT 228 103/ul Normal 150-450 [facility] Comment on above: Performed By: #### H GBHCT #### [facility] [address] [address] [address] Lucho De León RBC 5.75 106/ul Normal 4.70-6.10 [facility] Comment on above: Performed By: #### H GBHCT #### [facility] [address] [place] [address] Dr. Lucho De León WBC 8.1 103/ul Normal 4.0-11.0 [facility] Comment on above: Performed By: #### H GBHCT #### [facility] [address] [address] [address] Lucho De León PROF CHEM 8 (BAS METB)on Anion gap [Moles/Vol] 11.1 mmol/L Normal [facility] Comment on above: Performed By: #### B MP #### [facility] [address] [place] [address] Dr. Lucho De León Calcium [Mass/Vol] 9.3 mg/dL Normal 8.5-10.1 [facility] Comment on above: Performed By: #### B MP #### [facility] [address] [address] [address] Lucho De León Chloride [Moles/Vol] 102 mmol/L Normal 98-107 [facility] Comment on above: Performed By: #### B MP #### [facility] [address] [address] [address] Lucho De León CO2 [Moles/Vol] 28.3 mmol/L Normal 21.0-32.0 [facility] Comment on above: Performed By: #### B MP #### [facility] [address] [address] [address] Lucho De León Creatinine [Mass/Vol] 0.59 mg/dL Critically low 0.70-1.30 [facility] Comment on above: Performed By: #### B MP #### [facility] [address] [address] [address] Lucho De León EGFR-AF MOZAMBICAN >60 Normal >=60 [facility] Comment on above: Performed By: #### B MP #### [facility] [address] [address] [address] Lucho De León EGFR-NON AF MOZAMBICAN >60 Normal >=60 [facility] Comment on above: Performed By: #### B MP #### [facility] [address] [place] [address] Dr. Lucho De León Glucose [Mass/Vol] 171 mg/dL Critically high 74-106 T [facility] Comment on above: Performed By: #### B MP #### [facility] [address] [address] [address] Lucho De León Potassium [Moles/Vol] 4.4 mmol/L Normal 3.5-5.1 [facility] Comment on above: Performed By: #### B MP #### [facility] [address] [place] [address] Dr. Lucho De León Sodium [Moles/Vol] 137 mmol/L Normal 136-145 [facility] Comment on above: Performed By: #### B MP #### [facility] [address] [address] [address] Lucho De León Urea nitrogen [Mass/Vol] 12.0 mg/dL Normal 7.0-18.0 [facility] Comment on above: Performed By: #### B MP #### [facility] [address] [address] [address] Lucho De León Urea nitrogen/Creatinine [Mass ratio] 20.3 mg/mg Normal [facility] Comment on above: Performed By: #### B MP #### [facility] [address] [address] [address] Lucho De León General Surgery Office/Clini [...] JULIA Mays Only if needed [address] [place] [address]- Additional Instructions: Problem List/Past Medical History Ongoing [...] malignant neoplasm of female breast: Sister. Normal [facility] Comment on above: Result Comment: Elec tronically Signed By: MANJIT WILKINS, Bernadine Calle\Date and Time Signed: 10/25/22 16:08 EST Pathology Noteon 10-19-2022 Pathology Note [id number] #1.00CD:127 Normal [facility] Operative Reporton 2 Operative Report [id number] #1.00CD:127 Normal [facility] GLYCOHEMOGLOBIN A1Con 2021 ADA RECOMMENDATION SEE BELOW Normal [facility] Comment on above: Result Comment: ADA RECOMMENDED LIMIT 4.0 - 6.0 ADA THERAPEUTIC TARGET < 7.0 ACTION SUGGESTED > 7.0 Performed By: #### C VDTBH #### [facility] [address] [place] [address] Dr. Lucho De León Glucose [Mass/Vol] 197 mg/dL Normal [facility] Comment on above: Performed By: #### C VDTBH #### [facility] [address] [place] [address] Dr. Lucho De León HbA1c (Bld) [Mass fraction] 8.5 % Critically high 4.5-6.2 [facility] Comment on above: Performed By: #### C VDTBH #### [facility] [address] [place] [address] Dr. Lucho De León PROF CHEM 8 (BAS METB)on Anion gap [Moles/Vol] 12.0 mmol/L Normal [facility] Comment on above: Performed By: #### B MP #### [facility] [address] [place] [address] Dr. Lucho De León Calcium [Mass/Vol] 9.0 mg/dL Normal 8.5-10.1 [facility] Comment on above: Performed By: #### B MP #### [facility] [address] [address] [address] Lucho De León Chloride [Moles/Vol] 100 mmol/L Normal 98-107 [facility] Comment on above: Performed By: #### B MP #### [facility] [address] [place] [address] Dr. Lucho De León CO2 [Moles/Vol] 24.6 mmol/L Normal 21.0-32.0 [facility] Comment on above: Performed By: #### B MP #### [facility] [address] [place] [address] Dr. Lucho De León Creatinine [Mass/Vol] 0.61 mg/dL Critically low 0.70-1.30 [facility] Comment on above: Performed By: #### B MP #### [facility] [address] [place] [address] Dr. Lucho De León EGFR-AF MOZAMBICAN >60 Normal >=60 [facility] Comment on above: Performed By: #### B MP #### [facility] [address] [place] [address] Dr. Lucho De León EGFR-NON AF MOZAMBICAN >60 Normal >=60 [facility] Comment on above: Performed By: #### B MP #### [facility] [address] [place] [address] Dr. Lucho De León Glucose [Mass/Vol] 186 mg/dL Critically high 74-106 T [facility] Comment on above: Performed By: #### B MP #### [facility] [address] [address] [address] Lucho De León Potassium [Moles/Vol] 4.6 mmol/L Normal 3.5-5.1 [facility] Comment on above: Performed By: #### B MP #### [facility] [address] [place] [address] Dr. Lucho De León Sodium [Moles/Vol] 132 mmol/L Critically low 136-145 Th [facility] Comment on above: Performed By: #### B MP #### [facility] [address] [place] [address] Dr. Lucho De León Urea nitrogen [Mass/Vol] 12.0 mg/dL Normal 7.0-18.0 [facility] Comment on above: Performed By: #### B MP #### [facility] [address] [place] [address] Dr. Lucho De León Urea nitrogen/Creatinine [Mass ratio] 19.7 mg/mg Normal [facility] Comment on above: Performed By: #### B MP #### [facility] [id number] Lucho De León XR CSPINE 2_3 [...] by: BHAVANA MOREAU Date: 2022-09-22 12:09 Normal [facility] Consent for Procedure/Surger yon 08-31-2022 Consent for Procedure/Surgery [id number] #1.00CD:127 Normal [facility] Ambulatory Visit Summaryon 1 10-30-2021 Ambulatory Visit Summary DARIN THACKER :1950 Visit Date:08/30/2022 Ambulatory Visit Instructions [...] allergies Tobacco user Vitamin B12 deficiency Normal [facility] Physician Referralon 022 Physician Referral [id number] #1.00CD:127 Normal [facility] CBC AUTO DIFFon 06-14-2022 BASO # 0.0 103/ul Normal 0.0-0.1 [facility] Comment on above: Performed By: #### C VDTBH #### [facility] [address] [place] [address] Dr. Lucho De León Basophils/100 WBC (Bld) 0.4 % Normal 0.2-2.0 [facility] Comment on above: Performed By: #### C VDTBH #### [facility] [address] [address] [address] Lucho De León EO # 0.1 103/ul Normal 0.0-0.7 [facility] Comment on above: Performed By: #### C VDTBH #### [facility] [address] [address] [address] Lucho De León Eosinophils/100 WBC (Bld) 1.6 % Normal 0.9-7.0 [facility] Comment on above: Performed By: #### C VDTBH #### [facility] [address] [place] [address] Dr. Lucho De León Erythrocyte distribution width (RBC) [Ratio] 16.1 % Critically high 11.0-15.0 [facility] Comment on above: Performed By: #### C VDTBH #### [facility] [address] [place] [address] Dr. Lucho De León Hematocrit (Bld) [Volume fraction] 51.3 % Normal 42.0-54.0 [facility] Comment on above: Performed By: #### C VDTBH #### [facility] [address] [place] [address] Dr. Lucho De León Hemoglobin (Bld) [Mass/Vol] 16.9 g/dL Normal 14.0-18.0 [facility] Comment on above: Performed By: #### C VDTBH #### [facility] [address] [place] [address] Dr. Lucho De León IG # 0.02 10e3/ul Normal 0.00-0.03 [facility] Comment on above: Performed By: #### C VDTBH #### [facility] [address] [place] [address] Dr. Lucho De León IG % 0.3 % Normal 0.0-0.5 [facility] Comment on above: Performed By: #### C VDTBH #### [facility] [address] [place] [address] Dr. Lucho De León LYMPH # 1.6 103/ul Normal 1.2-3.8 [facility] Comment on above: Performed By: #### C VDTBH #### [facility] [address] [place] [address] Dr. Lucho De León Lymphocytes/100 WBC (Bld) 21.6 % Normal 20.5-60.0 [facility] Comment on above: Performed By: #### C VDTBH #### [facility] [address] [place] [address] Dr. Lucho De León MANUAL DIFF REQ NO Normal [facility] Comment on above: Performed By: #### C VDTBH #### [facility] [address] [place] [address] Dr. Lucho De León MCH (RBC) [Entitic mass] 29.3 pg Normal 25.9-34.0 [facility] Comment on above: Performed By: #### C VDTBH #### [facility] [address] [place] [address] Dr. Lucho De León MCHC (RBC) [Mass/Vol] 32.9 g/dL Normal 29.9-35.2 [facility] Comment on above: Performed By: #### C VDTBH #### [facility] [address] [place] [address] Dr. Lucho De León MCV (RBC) [Entitic vol] 89.1 fL Normal 80.0-94.0 [facility] Comment on above: Performed By: #### C VDTBH #### [facility] [address] [place] [address] Dr. Lucho De León MONO # 0.6 103/ul Normal 0.3-0.8 [facility] Comment on above: Performed By: #### C VDTBH #### [facility] [address] [place] [address] Dr. Lucho De León Monocytes/100 WBC (Bld) 8.6 % Normal 1.7-12.0 [facility] Comment on above: Performed By: #### C VDTBH #### [facility] [address] [place] [address] Dr. Lucho De León NEUT # 5.0 103/ul Normal 1.4-6.5 [facility] Comment on above: Performed By: #### C VDTBH #### [facility] [address] [place] [address] Dr. Lucho De León Neutrophils/100 WBC (Bld) 67.5 % Normal 43.0-75.0 [facility] Comment on above: Performed By: #### C VDTBH #### [facility] [address] [place] [address] Dr. Lucho De León Platelet mean volume (Bld) [Entitic vol] 10.3 fL Normal 9.5-13.5 [facility] Comment on above: Performed By: #### C VDTBH #### [facility] [address] [address] [address] Lucho De León PLT 218 103/ul Normal 150-450 [facility] Comment on above: Performed By: #### C VDTBH #### [facility] [address] [address] [address] Lucho De León RBC 5.76 106/ul Normal 4.70-6.10 [facility] Comment on above: Performed By: #### C VDTBH #### [facility] [address] [address] [address] Lucho De León WBC 7.5 103/ul Normal 4.0-11.0 [facility] Comment on above: Performed By: #### C VDTBH #### [facility] [address] [place] [address] Dr. Lucho De León GLYCOHEMOGLOBIN A1Con 2021 ADA RECOMMENDATION SEE BELOW Normal [facility] Comment on above: Result Comment: ADA RECOMMENDED LIMIT 4.0 - 6.0 ADA THERAPEUTIC TARGET < 7.0 ACTION SUGGESTED > 7.0 Performed By: #### A 1C #### [facility] [address] [place] [address] Dr. Lucho De León Glucose [Mass/Vol] 177 mg/dL Normal [facility] Comment on above: Performed By: #### A 1C #### [facility] [address] [place] [address] Dr. Lucho De León HbA1c (Bld) [Mass fraction] 7.8 % Critically high 4.5-6.2 [facility] Comment on above: Performed By: #### A 1C #### [facility] [address] [place] [address] Dr. Lucho De León IRONon 06-14-2022 Iron [Mass/Vol] 50.0 ug/dL Critically low 65.0-175.0 [facility] Comment on above: Performed By: #### C BC #### [facility] [address] [place] [address] Dr. Lucho De León PROF 14(COMP METB)on 022 Albumin [Mass/Vol] 3.8 g/dL Normal 3.4-5.0 [facility] Comment on above: Performed By: #### H GBHCT #### [facility] [address] [place] [address] Dr. Lucho De León Albumin/Globulin [Mass ratio] 0.9 {ratio} Normal [facility] Comment on above: Performed By: #### H GBHCT #### [facility] [address] [address] [address] Lucho De León ALP [Catalytic activity/Vol] 95 U/L Normal 46-116 [facility] Comment on above: Performed By: #### H GBHCT #### [facility] [address] [place] [address] Dr. Lucho De León ALT [Catalytic activity/Vol] 19 U/L Normal 16-63 [facility] Comment on above: Performed By: #### H GBHCT #### [facility] [address] [address] [address] Lucho De León Anion gap [Moles/Vol] 12.2 mmol/L Normal [facility] Comment on above: Performed By: #### H GBHCT #### [facility] [address] [place] [address] Dr. Lucho De León AST [Catalytic activity/Vol] 11 U/L Critically low 15-37 [facility] Comment on above: Performed By: #### H GBHCT #### [facility] [address] [address] [address] Lucho De León Bilirubin [Mass/Vol] 0.3 mg/dL Normal 0.2-1.0 [facility] Comment on above: Performed By: #### H GBHCT #### [facility] [address] [address] [address] Lucho De León Calcium [Mass/Vol] 9.6 mg/dL Normal 8.5-10.1 [facility] Comment on above: Performed By: #### H GBHCT #### [facility] [address] [place] [address] Dr. Lucho De León Chloride [Moles/Vol] 103 mmol/L Normal 98-107 [facility] Comment on above: Performed By: #### H GBHCT #### [facility] [address] [address] [address] Lucho De León CO2 [Moles/Vol] 29.4 mmol/L Normal 21.0-32.0 [facility] Comment on above: Performed By: #### H GBHCT #### [facility] [address] [address] [address] Lucho De León Creatinine [Mass/Vol] 0.80 mg/dL Normal 0.70-1.30 [facility] Comment on above: Performed By: #### H GBHCT #### [facility] [address] [place] [address] Dr. Lucho De León EGFR-AF MOZAMBICAN >60 Normal >=60 [facility] Comment on above: Performed By: #### H GBHCT #### [facility] [address] [place] [address] Dr. Lucho De León EGFR-NON AF MOZAMBICAN >60 Normal >=60 [facility] Comment on above: Performed By: #### H GBHCT #### [facility] [address] [place] [address] Dr. Lucho De León Globulin (S) [Mass/Vol] 4.0 g/dL Normal [facility] Comment on above: Performed By: #### H GBHCT #### [facility] [address] [address] [address] Lucho De León Glucose [Mass/Vol] 202 mg/dL Critically high 74-106 T [facility] Comment on above: Performed By: #### H GBHCT #### [facility] [address] [place] [address] Dr. Lucho De León Potassium [Moles/Vol] 4.6 mmol/L Normal 3.5-5.1 [facility] Comment on above: Performed By: #### H GBHCT #### [facility] [address] [place] [address] Dr. Lucho De León Protein [Mass/Vol] 7.8 g/dL Normal 6.4-8.2 [facility] Comment on above: Performed By: #### H GBHCT #### [facility] [address] [address] [address] Lucho De León Sodium [Moles/Vol] 140 mmol/L Normal 136-145 [facility] Comment on above: Performed By: #### H GBHCT #### [facility] [address] [address] [address] Lucho De León Urea nitrogen [Mass/Vol] 15.0 mg/dL Normal 7.0-18.0 [facility] Comment on above: Performed By: #### H GBHCT #### [facility] [address] [address] [address] Lucho De León Urea nitrogen/Creatinine [Mass ratio] 18.8 mg/mg Normal [facility] Comment on above: Performed By: #### H GBHCT #### [facility] [address] [address] [address] Lucho De León NM STRESS/REST MULTIon 04-27 NM STRESS/REST MULTI Patient: DARIN THACKER Exam Date: 04/27/2022 : 1950 Gender:M Ordering : [facility] #: [id number] Family : Order #: [id number] CLICK HERE TO VIEW EXAM RADIOLOGY REPORT [...] STUDY: PERFUSION DEFECT: LOCATION: Mid-inferior. Apical inferior. [place]. SIZE: Medium (3-4 segments). SEVERITY: Mild. TYPE: [...] MD on 04/28/2022 at 07:47 Approved by: Binud Waggoner MD on 04/28/2022 at 08:01 Normal [facility] CBC AUTO DIFFon 04-14-2022 BASO # 0.0 103/ul Normal 0.0-0.1 [facility] Comment on above: Performed By: #### A 1C #### [facility] [address] [place] [address] Dr. Lucho De León Basophils/100 WBC (Bld) 0.5 % Normal 0.2-2.0 [facility] Comment on above: Performed By: #### A 1C #### [facility] [address] [place] [address] Dr. Lucho De León EO # 0.1 103/ul Normal 0.0-0.7 [facility] Comment on above: Performed By: #### A 1C #### [facility] [address] [place] [address] Dr. Lucho De León Eosinophils/100 WBC (Bld) 2.0 % Normal 0.9-7.0 [facility] Comment on above: Performed By: #### A 1C #### [facility] [address] [place] [address] Dr. Lucho De León Erythrocyte distribution width (RBC) [Ratio] 15.0 % Normal 11.0-15.0 [facility] Comment on above: Performed By: #### A 1C #### [facility] [address] [place] [address] Dr. Lucho De León Hematocrit (Bld) [Volume fraction] 39.1 % Critically low 42.0-54.0 [facility] Comment on above: Performed By: #### A 1C #### [facility] [address] [address] [address] Lucho De León Hemoglobin (Bld) [Mass/Vol] 12.5 g/dL Critically low 14.0-18.0 [facility] Comment on above: Performed By: #### A 1C #### [facility] [address] [place] [address] Dr. Lucho De León IG # 0.02 10e3/ul Normal 0.00-0.03 [facility] Comment on above: Performed By: #### A 1C #### [facility] [address] [place] [address] Dr. Lucho De León IG % 0.4 % Normal 0.0-0.5 [facility] Comment on above: Performed By: #### A 1C #### [facility] [address] [place] [address] Dr. Lucho De León LYMPH # 1.7 103/ul Normal 1.2-3.8 [facility] Comment on above: Performed By: #### A 1C #### [facility] [address] [place] [address] Dr. Lucho De León Lymphocytes/100 WBC (Bld) 30.7 % Normal 20.5-60.0 [facility] Comment on above: Performed By: #### A 1C #### [facility] [address] [place] [address] Dr. Lucho De León MANUAL DIFF REQ NO Normal [facility] Comment on above: Performed By: #### A 1C #### [facility] [address] [place] [address] Dr. Lucho De León MCH (RBC) [Entitic mass] 29.7 pg Normal 25.9-34.0 [facility] Comment on above: Performed By: #### A 1C #### [facility] [address] [place] [address] Dr. Lucho De León MCHC (RBC) [Mass/Vol] 32.0 g/dL Normal 29.9-35.2 [facility] Comment on above: Performed By: #### A 1C #### [facility] [address] [address] [address] Lucho De León MCV (RBC) [Entitic vol] 92.9 fL Normal 80.0-94.0 [facility] Comment on above: Performed By: #### A 1C #### [facility] [address] [place] [address] Dr. Lucho De León MONO # 0.5 103/ul Normal 0.3-0.8 [facility] Comment on above: Performed By: #### A 1C #### [facility] [address] [place] [address] Dr. Lucho De León Monocytes/100 WBC (Bld) 9.6 % Normal 1.7-12.0 [facility] Comment on above: Performed By: #### A 1C #### [facility] [address] [place] [address] Dr. Lucho De León NEUT # 3.2 103/ul Normal 1.4-6.5 [facility] Comment on above: Performed By: #### A 1C #### [facility] [address] [place] [address] Dr. Lucho De León Neutrophils/100 WBC (Bld) 56.8 % Normal 43.0-75.0 [facility] Comment on above: Performed By: #### A 1C #### [facility] [address] [place] [address] Dr. Lucho De León Platelet mean volume (Bld) [Entitic vol] 9.2 fL Critically low 9.5-13.5 [facility] Comment on above: Performed By: #### A 1C #### [facility] [address] [place] [address] Dr. Lucho De León PLT 317 103/ul Normal 150-450 [facility] Comment on above: Performed By: #### A 1C #### [facility] [address] [place] [address] Dr. Lucho De León RBC 4.21 106/ul Critically low 4.70-6.10 [facility] Comment on above: Performed By: #### A 1C #### [facility] [address] [place] [address] Dr. Lucho De León WBC 5.6 103/ul Normal 4.0-11.0 [facility] Comment on above: Performed By: #### A 1C #### [facility] [id number] Lucho De León ECHOCARDIO M/2D COMPLETEon 0 04-14-2022 ECHOCARDIO M/2D COMPLETE Patient: DARIN THACKER Exam Date: 04/14/2022 : 1950 Gender:M Ordering : OLI TONYA [facility] Admission #: [id number] Family : Order #: [id number] CLICK HERE TO VIEW EXAM ECHOCARDIOGRAM REPORT [...] M.D. on 04/14/2022 at 17:53 Normal [facility] PRBC LEUKOREDUCEDon 04-14-20 ABO and Rh group Nom (Bld) Cross Match Result Compatible Unit Blood Type O Pos Unit Number [id number] Status Information Transfused Product ID Red Blood Cells Product Code [id number] Cross Match Result Compatible Unit Blood Type O Pos Unit Number [id number] Status Information Transfused Product ID Red Blood Cells Product Code [id number] Normal [facility] Comment on above: Performed By: #### P RBC #### [facility] [address] [place] [address] Dr. Lucho De León PRBC LEUKOREDUCED Cross Match Result Compatible Unit Blood Type O Pos Unit Number [id number] Status Information Transfused Product ID Red Blood Cells Product Code [id number] Normal [facility] Comment on above: Performed By: #### P RBC #### [facility] [address] [place] [address] Dr. Lucho De León PRBC LEUKOREDUCED Cross Match Result Compatible Unit Blood Type O Pos Unit Number [id number] Status Information Transfused Product ID Red Blood Cells Product Code [id number] [facility] Comment on above: Performed By: #### P RBC #### [facility] [address] [place] [address] Dr. Lucho De León CBC AUTO DIFFon 04-06-2022 BASO # 0.0 103/ul Normal 0.0-0.1 [facility] Comment on above: Performed By: #### C BC #### [facility] [address] [place] [address] Dr. Lucho De León Basophils/100 WBC (Bld) 0.4 % Normal 0.2-2.0 [facility] Comment on above: Performed By: #### C BC #### [facility] [address] [place] [address] Dr. uLcho De León EO # 0.1 103/ul Normal 0.0-0.7 [facility] Comment on above: Performed By: #### C BC #### [facility] [address] [place] [address] Dr. Lucho De León Eosinophils/100 WBC (Bld) 1.4 % Normal 0.9-7.0 [facility] Comment on above: Performed By: #### C BC #### [facility] [address] [place] [address] Dr. Lucho De León Erythrocyte distribution width (RBC) [Ratio] 16.3 % Critically high 11.0-15.0 [facility] Comment on above: Performed By: #### C BC #### [facility] [address] [place] [address] Dr. Lucho De León Hematocrit (Bld) [Volume fraction] 36.2 % Critically low 42.0-54.0 [facility] Comment on above: Performed By: #### C BC #### [facility] [address] [place] [address] Dr. Lucho De León Hemoglobin (Bld) [Mass/Vol] 11.3 g/dL Critically low 14.0-18.0 [facility] Comment on above: Performed By: #### C BC #### [facility] [address] [place] [address] Dr. Lucho De León IG # 0.04 10e3/ul Critically high 0.00-0.[address] [facility] Comment on above: Performed By: #### C BC #### [facility] [address] [place] [address] Dr. Lucho De León IG % 0.5 % Normal 0.0-0.5 [facility] Comment on above: Performed By: #### C BC #### [facility] [address] [place] [address] Dr. Lucho De León LYMPH # 2.0 103/ul Normal 1.2-3.8 [facility] Comment on above: Performed By: #### C BC #### [facility] [address] [place] [address] Dr. Lucho De León Lymphocytes/100 WBC (Bld) 26.7 % Normal 20.5-60.0 [facility] Comment on above: Performed By: #### C BC #### [facility] [address] [place] [address] Dr. Lucho De León MANUAL DIFF REQ NO Normal [facility] Comment on above: Performed By: #### C BC #### [facility] [address] [place] [address] Dr. Lucho De León MCH (RBC) [Entitic mass] 29.7 pg Normal 25.9-34.0 [facility] Comment on above: Performed By: #### C BC #### [facility] [address] [place] [address] Dr. Lucho De León MCHC (RBC) [Mass/Vol] 31.2 g/dL Normal 29.9-35.2 [facility] Comment on above: Performed By: #### C BC #### [facility] [address] [place] [address] Dr. Lucho De León MCV (RBC) [Entitic vol] 95.3 fL Critically high 80.0-94.0 [facility] Comment on above: Performed By: #### C BC #### [facility] [address] [place] [address] Dr. Lucho De León MONO # 0.9 103/ul Critically high 0.3-0.8 [facility] Comment on above: Performed By: #### C BC #### [facility] [address] [place] [address] Dr. Lucho De León Monocytes/100 WBC (Bld) 11.8 % Normal 1.7-12.0 [facility] Comment on above: Performed By: #### C BC #### [facility] [address] [place] [address] Dr. Lucho De León NEUT # 4.3 103/ul Normal 1.4-6.5 [facility] Comment on above: Performed By: #### C BC #### [facility] [address] [place] [address] Dr. Lucho De León Neutrophils/100 WBC (Bld) 59.2 % Normal 43.0-75.0 [facility] Comment on above: Performed By: #### C BC #### [facility] [address] [place] [address] Dr. Lucho De León Platelet mean volume (Bld) [Entitic vol] 9.1 fL Critically low 9.5-13.5 [facility] Comment on above: Performed By: #### C BC #### [facility] [address] [place] [address] Dr. Lucho De León PLT 371 103/ul Normal 150-450 [facility] Comment on above: Performed By: #### C BC #### [facility] [address] [place] [address] Dr. Lucho De León RBC 3.80 106/ul Critically low 4.70-6.10 [facility] Comment on above: Performed By: #### C BC #### [facility] [address] [place] [address] Dr. Lucho De León WBC 7.3 103/ul Normal 4.0-11.0 [facility] Comment on above: Performed By: #### C BC #### [facility] [address] [place] [address] Dr. Lucho De León PROF CHEM 8 (BAS METB)on Anion gap [Moles/Vol] 12.4 mmol/L Normal [facility] Comment on above: Performed By: #### A 1C #### [facility] [address] [place] [address] Dr. Lucho De León Calcium [Mass/Vol] 9.3 mg/dL Normal 8.5-10.1 [facility] Comment on above: Performed By: #### A 1C #### [facility] [address] [place] [address] Dr. Lucho De León Chloride [Moles/Vol] 104 mmol/L Normal 98-107 [facility] Comment on above: Performed By: #### A 1C #### [facility] [address] [place] [address] Dr. Lucho De León CO2 [Moles/Vol] 24.6 mmol/L Normal 21.0-32.0 [facility] Comment on above: Performed By: #### A 1C #### [facility] [address] [place] [address] Dr. Lucho De León Creatinine [Mass/Vol] 0.67 mg/dL Critically low 0.70-1.30 [facility] Comment on above: Performed By: #### A 1C #### [facility] [address] [address] [address] Lucho De León EGFR-AF MOZAMBICAN >60 Normal >=60 [facility] Comment on above: Performed By: #### A 1C #### [facility] [address] [address] [address] Lucho De León EGFR-NON AF MOZAMBICAN >60 Normal >=60 [facility] Comment on above: Performed By: #### A 1C #### [facility] [address] [address] [address] Lucho De León Glucose [Mass/Vol] 144 mg/dL Critically high 74-106 [facility] Comment on above: Performed By: #### A 1C #### [facility] [address] [place] [address] Dr. Lucho De León Potassium [Moles/Vol] 5.0 mmol/L Normal 3.5-5.1 [facility] Comment on above: Performed By: #### A 1C #### [facility] [address] [address] [address] Lucho De León Sodium [Moles/Vol] 136 mmol/L Normal 136-145 [facility] Comment on above: Performed By: #### A 1C #### [facility] [address] [address] [address] Lucho De León Urea nitrogen [Mass/Vol] 12.0 mg/dL Normal 7.0-18.0 [facility] Comment on above: Performed By: #### A 1C #### [facility] [address] [address] [address] Lucho De León Urea nitrogen/Creatinine [Mass ratio] 17.9 mg/mg Normal [facility] Comment on above: Performed By: #### A 1C #### [facility] [address] [address] [address] Lucho De León CBC AUTO DIFFon 03-30-2022 BASO # 0.0 103/ul Normal 0.0-0.1 [facility] Comment on above: Performed By: #### C BC #### [facility] [address] [address] [address] Lucho De León Basophils/100 WBC (Bld) 0.2 % Normal 0.2-2.0 [facility] Comment on above: Performed By: #### C BC #### [facility] [address] [address] [address] Lucho De León EO # 0.1 103/ul Normal 0.0-0.7 [facility] Comment on above: Performed By: #### C BC #### [facility] [address] [address] [address] Lucho De León Eosinophils/100 WBC (Bld) 0.9 % Normal 0.9-7.0 [facility] Comment on above: Performed By: #### C BC #### [facility] [address] [place] [address] Dr. Lucho De León Erythrocyte distribution width (RBC) [Ratio] 16.9 % Critically high 11.0-15.0 [facility] Comment on above: Performed By: #### C BC #### [facility] [address] [place] [address] Dr. Lucho De León Hematocrit (Bld) [Volume fraction] 29.9 % Critically low 42.0-54.0 [facility] Comment on above: Performed By: #### C BC #### [facility] [address] [address] [address] Lucho De León Hemoglobin (Bld) [Mass/Vol] 10.1 g/dL Critically low 14.0-18.0 [facility] Comment on above: Performed By: #### C BC #### [facility] [address] [address] [address] Lucho De León IG # 0.10 10e3/ul Critically high 0.00-0.[address] [facility] Comment on above: Performed By: #### C BC #### [facility] [address] [address] [address] Lucho De León IG % 0.9 % Critically high 0.0-0.5 [facility] Comment on above: Performed By: #### C BC #### [facility] [address] [address] [address] Lucho De León LYMPH # 2.0 103/ul Normal 1.2-3.8 [facility] Comment on above: Performed By: #### C BC #### [facility] [address] [address] [address] Lucho De León Lymphocytes/100 WBC (Bld) 18.3 % Critically low 20.5-60.0 [facility] Comment on above: Performed By: #### C BC #### [facility] [address] [place] [address] Dr. Lucho De León MANUAL DIFF REQ NO Normal [facility] Comment on above: Performed By: #### C BC #### [facility] [address] [place] [address] Dr. Lucho De León MCH (RBC) [Entitic mass] 30.6 pg Normal 25.9-34.0 [facility] Comment on above: Performed By: #### C BC #### [facility] [address] [place] [address] Dr. Lucho De León MCHC (RBC) [Mass/Vol] 33.8 g/dL Normal 29.9-35.2 [facility] Comment on above: Performed By: #### C BC #### [facility] [address] [place] [address] Dr. Lucho De León MCV (RBC) [Entitic vol] 90.6 fL Normal 80.0-94.0 [facility] Comment on above: Performed By: #### C BC #### [facility] [address] [place] [address] Dr. Lucho De León MONO # 0.9 103/ul Critically high 0.3-0.8 [facility] Comment on above: Performed By: #### C BC #### [facility] [address] [place] [address] Dr. Lucho De León Monocytes/100 WBC (Bld) 8.2 % Normal 1.7-12.0 [facility] Comment on above: Performed By: #### C BC #### [facility] [address] [address] [address] Lucho De León NEUT # 8.0 103/ul Critically high 1.4-6.5 [facility] Comment on above: Performed By: #### C BC #### [facility] [address] [address] [address] Lucho De León Neutrophils/100 WBC (Bld) 71.5 % Normal 43.0-75.0 [facility] Comment on above: Performed By: #### C BC #### [facility] [address] [address] [address] Lucho De León Platelet mean volume (Bld) [Entitic vol] 9.7 fL Normal 9.5-13.5 [facility] Comment on above: Performed By: #### C BC #### [facility] [address] [address] [address] Lucho De León PLT 195 103/ul Normal 150-450 [facility] Comment on above: Performed By: #### C BC #### [facility] [address] [address] [address] Lucho De León RBC 3.30 106/ul Critically low 4.70-6.10 [facility] Comment on above: Performed By: #### C BC #### [facility] [address] [address] [address] Lucho De León WBC 11.1 103/ul Critically high 4.0-11.0 [facility] Comment on above: Performed By: #### C BC #### [facility] [address] [address] [address] Lucho De León PROF CHEM 8 (BAS METB)on Anion gap [Moles/Vol] 11.8 mmol/L Normal [facility] Comment on above: Performed By: #### C BC #### [facility] [address] [address] [address] Lucho De León Calcium [Mass/Vol] 8.5 mg/dL Normal 8.5-10.1 [facility] Comment on above: Performed By: #### C BC #### [facility] [address] [address] [address] Lucho De León Chloride [Moles/Vol] 103 mmol/L Normal 98-107 [facility] Comment on above: Performed By: #### C BC #### [facility] [address] [address] [address] Lucho De León CO2 [Moles/Vol] 25.8 mmol/L Normal 21.0-32.0 [facility] Comment on above: Performed By: #### C BC #### [facility] [address] [address] [address] Lucho De León Creatinine [Mass/Vol] 0.56 mg/dL Critically low 0.70-1.30 [facility] Comment on above: Performed By: #### C BC #### [facility] [address] [place] [address] Dr. Lucho De León EGFR-AF MOZAMBICAN >60 Normal >=60 [facility] Comment on above: Performed By: #### C BC #### [facility] [address] [address] [address] Lucho De León EGFR-NON AF MOZAMBICAN >60 Normal >=60 [facility] Comment on above: Performed By: #### C BC #### [facility] [address] [address] [address] Lucho De León Glucose [Mass/Vol] 166 mg/dL Critically high 74-106 [facility] Comment on above: Performed By: #### C BC #### [facility] [address] [place] [address] Dr. Lucho De León Potassium [Moles/Vol] 3.6 mmol/L Normal 3.5-5.1 [facility] Comment on above: Performed By: #### C BC #### [facility] [address] [place] [address] Dr. Lucho De León Sodium [Moles/Vol] 137 mmol/L Normal 136-145 [facility] Comment on above: Performed By: #### C BC #### [facility] [address] [place] [address] Dr. Lucho De León Urea nitrogen [Mass/Vol] 6.0 mg/dL Critically low 7.0-18.0 [facility] Comment on above: Performed By: #### C BC #### [facility] [address] [place] [address] Dr. Lucho De León Urea nitrogen/Creatinine [Mass ratio] 10.7 mg/mg Normal [facility] Comment on above: Performed By: #### C BC #### [facility] [address] [place] [address] Dr. Lucho De León CBC AUTO DIFFon 03-29-2022 BASO # 0.0 103/ul Normal 0.0-0.1 [facility] Comment on above: Performed By: #### A 1C #### [facility] [address] [place] [address] Dr. Lucho De León Basophils/100 WBC (Bld) 0.3 % Normal 0.2-2.0 [facility] Comment on above: Performed By: #### A 1C #### [facility] [address] [place] [address] Dr. Lucho De León EO # 0.1 103/ul Normal 0.0-0.7 [facility] Comment on above: Performed By: #### A 1C #### [facility] [address] [place] [address] Dr. Lucho De León Eosinophils/100 WBC (Bld) 0.8 % Critically low 0.9-7.0 [facility] Comment on above: Performed By: #### A 1C #### [facility] [address] [place] [address] Dr. Lucho De León Erythrocyte distribution width (RBC) [Ratio] 16.9 % Critically high 11.0-15.0 [facility] Comment on above: Performed By: #### A 1C #### [facility] [address] [place] [address] Dr. Lucho De León Hematocrit (Bld) [Volume fraction] 23.0 % Critically low 42.0-54.0 [facility] Comment on above: Performed By: #### A 1C #### [facility] [address] [address] [address] Lucho De León Hemoglobin (Bld) [Mass/Vol] 7.6 g/dL Critically low 14.0-18.0 [facility] Comment on above: Performed By: #### A 1C #### [facility] [address] [address] [address] Lucho De León IG # 0.10 10e3/ul Critically high 0.00-0.[address] [facility] Comment on above: Performed By: #### A 1C #### [facility] [address] [address] [address] Lucho De León IG % 1.3 % Critically high 0.0-0.5 [facility] Comment on above: Performed By: #### A 1C #### [facility] [address] [place] [address] Dr. Lucho De León LYMPH # 2.4 103/ul Normal 1.2-3.8 [facility] Comment on above: Performed By: #### A 1C #### [facility] [address] [place] [address] Dr. Lucho De León Lymphocytes/100 WBC (Bld) 32.1 % Normal 20.5-60.0 [facility] Comment on above: Performed By: #### A 1C #### [facility] [address] [place] [address] Dr. Lucho De León MANUAL DIFF REQ NO Normal [facility] Comment on above: Performed By: #### A 1C #### [facility] [address] [address] [address] Lucho De León MCH (RBC) [Entitic mass] 30.9 pg Normal 25.9-34.0 [facility] Comment on above: Performed By: #### A 1C #### [facility] [address] [place] [address] Dr. Lucho De León MCHC (RBC) [Mass/Vol] 33.0 g/dL Normal 29.9-35.2 [facility] Comment on above: Performed By: #### A 1C #### [facility] [address] [place] [address] Dr. Lucho De León MCV (RBC) [Entitic vol] 93.5 fL Normal 80.0-94.0 [facility] Comment on above: Performed By: #### A 1C #### [facility] [address] [place] [address] Dr. Lucho De León MONO # 0.8 103/ul Normal 0.3-0.8 [facility] Comment on above: Performed By: #### A 1C #### [facility] [address] [place] [address] Dr. Lucho De León Monocytes/100 WBC (Bld) 11.3 % Normal 1.7-12.0 [facility] Comment on above: Performed By: #### A 1C #### [facility] [address] [place] [address] Dr. Lucho De León NEUT # 4.0 103/ul Normal 1.4-6.5 [facility] Comment on above: Performed By: #### A 1C #### [facility] [address] [place] [address] Dr. Lucho De León Neutrophils/100 WBC (Bld) 54.2 % Normal 43.0-75.0 [facility] Comment on above: Performed By: #### A 1C #### [facility] [address] [place] [address] Dr. Lucho De León Platelet mean volume (Bld) [Entitic vol] 9.7 fL Normal 9.5-13.5 [facility] Comment on above: Performed By: #### A 1C #### [facility] [address] [place] [address] Dr. Lucho De León PLT 155 103/ul Normal 150-450 [facility] Comment on above: Performed By: #### A 1C #### [facility] [address] [place] [address] Dr. Lucho De León RBC 2.46 106/ul Critically low 4.70-6.10 [facility] Comment on above: Performed By: #### A 1C #### [facility] [address] [place] [address] Dr. Lucho De León WBC 7.4 103/ul Normal 4.0-11.0 [facility] Comment on above: Performed By: #### A 1C #### [facility] [address] [place] [address] Dr. Lucho De León HEMOGLOBIN AND HEMATOCRITon 03-29-2022 Hematocrit (Bld) [Volume fraction] 27.6 % Critically low 42.0-54.0 [facility] Comment on above: Performed By: #### A 1C #### [facility] [address] [place] [address] Dr. Lucho De León Hemoglobin (Bld) [Mass/Vol] 9.0 g/dL Critically low 14.0-18.0 [facility] Comment on above: Performed By: #### A 1C #### [facility] [address] [place] [address] Dr. Lucho De León POINT OF CARE GLUCOSEon 03-16 Glucose [Mass/Vol] 135 mg/dL Critically high [facility] Comment on above: Performed By: #### M ALBR #### [facility] [address] [place] [address] Dr. Lucho De León Glucose [Mass/Vol] 159 mg/dL Critically high [address] [place] [address] Comment on above: Performed By: #### M ALBR #### [facility] [address] [place] [address] Dr. Lucho De León Glucose [Mass/Vol] 225 mg/dL Critically high [facility] Comment on above: Performed By: #### C VDTBH #### [facility] [address] [place] [address] Dr. Lucho De León Glucose [Mass/Vol] 181 mg/dL Critically high [facility]106 [facility] Comment on above: Performed By: #### P OCGLUC #### [facility] [address] [place] [address] Dr. Lucho De León PROF CHEM 8 (BAS METB)on Anion gap [Moles/Vol] 9.5 mmol/L Normal [facility] Comment on above: Performed By: #### A 1C #### [facility] [address] [address] [address] Lucho De León Calcium [Mass/Vol] 7.7 mg/dL Critically low 8.5-10.1 [facility] Comment on above: Performed By: #### A 1C #### [facility] [address] [address] [address] Lucho De León Chloride [Moles/Vol] 107 mmol/L Normal 98-107 [facility] Comment on above: Performed By: #### A 1C #### [facility] [address] [address] [address] Lucho De León CO2 [Moles/Vol] 23.7 mmol/L Normal 21.0-32.0 [facility] Comment on above: Performed By: #### A 1C #### [facility] [address] [address] [address] Lucho De Lóen Creatinine [Mass/Vol] 0.58 mg/dL Critically low 0.70-1.30 [facility] Comment on above: Performed By: #### A 1C #### [facility] [address] [address] [address] Lucho De León EGFR-AF MOZAMBICAN >60 Normal >=60 [facility] Comment on above: Performed By: #### A 1C #### [facility] [address] [address] [address] Lucho De León EGFR-NON AF MOZAMBICAN >60 Normal >=60 [facility] Comment on above: Performed By: #### A 1C #### [facility] [address] [place] [address] Dr. Lucho De León Glucose [Mass/Vol] 125 mg/dL Critically high 74-106 [facility] Comment on above: Performed By: #### A 1C #### [facility] [address] [address] [address] Lucho De León Potassium [Moles/Vol] 4.2 mmol/L Normal 3.5-5.1 [facility] Comment on above: Performed By: #### A 1C #### [facility] [address] [place] [address] Dr. Lucho De León Sodium [Moles/Vol] 136 mmol/L Normal 136-145 [facility] Comment on above: Performed By: #### A 1C #### [facility] [address] [place] [address] Dr. Lucho De León Urea nitrogen [Mass/Vol] 15.0 mg/dL Normal 7.0-18.0 [facility] Comment on above: Performed By: #### A 1C #### [facility] [address] [place] [address] Dr. Lucho De León Urea nitrogen/Creatinine [Mass ratio] 25.9 mg/mg Normal [facility] Comment on above: Performed By: #### A 1C #### [facility] [address] [place] [address] Dr. Lucho De León CBC AUTO DIFFon 03-28-2022 BASO # 0.0 103/ul Normal 0.0-0.1 [facility] Comment on above: Performed By: #### B MP #### [facility] [address] [place] [address] Dr. Lucho De León Basophils/100 WBC (Bld) 0.3 % Normal 0.2-2.0 [facility] Comment on above: Performed By: #### B MP #### [facility] [address] [place] [address] Dr. Lucho De León EO # 0.0 103/ul Normal 0.0-0.7 [facility] Comment on above: Performed By: #### B MP #### [facility] [address] [place] [address] Dr. Lucho De León Eosinophils/100 WBC (Bld) 0.4 % Critically low 0.9-7.0 [facility] Comment on above: Performed By: #### B MP #### [facility] [address] [place] [address] Dr. Lucho De León Erythrocyte distribution width (RBC) [Ratio] 15.8 % Critically high 11.0-15.0 [facility] Comment on above: Performed By: #### B MP #### [facility] [address] [place] [address] Dr. Lucho De León Hematocrit (Bld) [Volume fraction] 23.6 % Critically low 42.0-54.0 [facility] Comment on above: Performed By: #### B MP #### [facility] [address] [place] [address] Dr. Lucho De León Hemoglobin (Bld) [Mass/Vol] 7.9 g/dL Critically low 14.0-18.0 [facility] Comment on above: Performed By: #### B MP #### [facility] [address] [place] [address] Dr. Lucho De León IG # 0.17 10e3/ul Critically high 0.00-0.[address] [facility] Comment on above: Performed By: #### B MP #### [facility] [address] [place] [address] Dr. Lucho De León IG % 1.6 % Critically high 0.0-0.5 [facility] Comment on above: Performed By: #### B MP #### [facility] [address] [place] [address] Dr. Lucho De León LYMPH # 2.8 103/ul Normal 1.2-3.8 [facility] Comment on above: Performed By: #### B MP #### [facility] [address] [place] [address] Dr. Lucho De León Lymphocytes/100 WBC (Bld) 27.0 % Normal 20.5-60.0 [facility] Comment on above: Performed By: #### B MP #### [facility] [address] [place] [address] Dr. Lucho De León MANUAL DIFF REQ NO Normal [facility] Comment on above: Performed By: #### B MP #### [facility] [address] [place] [address] Dr. Lucho De León MCH (RBC) [Entitic mass] 30.3 pg Normal 25.9-34.0 [facility] Comment on above: Performed By: #### B MP #### [facility] [address] [place] [address] Dr. Lucho De León MCHC (RBC) [Mass/Vol] 33.5 g/dL Normal 29.9-35.2 [facility] Comment on above: Performed By: #### B MP #### [facility] [address] [address] [address] Lucho De León MCV (RBC) [Entitic vol] 90.4 fL Normal 80.0-94.0 [facility] Comment on above: Performed By: #### B MP #### [facility] [address] [address] [address] Lucho De León MONO # 1.2 103/ul Critically high 0.3-0.8 [facility] Comment on above: Performed By: #### B MP #### [facility] [address] [place] [address] Dr. Lucho De León Monocytes/100 WBC (Bld) 11.6 % Normal 1.7-12.0 [facility] Comment on above: Performed By: #### B MP #### [facility] [address] [place] [address] Dr. Lucho De León NEUT # 6.2 103/ul Normal 1.4-6.5 [facility] Comment on above: Performed By: #### B MP #### [facility] [address] [place] [address] Dr. Lucho De León Neutrophils/100 WBC (Bld) 59.1 % Normal 43.0-75.0 [facility] Comment on above: Performed By: #### B MP #### [facility] [address] [address] [address] Lucho De León Platelet mean volume (Bld) [Entitic vol] 10.1 fL Normal 9.5-13.5 [facility] Comment on above: Performed By: #### B MP #### [facility] [address] [place] [address] Dr. Lucho De León PLT 166 103/ul Normal 150-450 [facility] Comment on above: Performed By: #### B MP #### [facility] [address] [place] [address] Dr. Lucho De León RBC 2.61 106/ul Critically low 4.70-6.10 [facility] Comment on above: Performed By: #### B MP #### [facility] [address] [place] [address] Dr. Lucho De León WBC 10.5 103/ul Normal 4.0-11.0 [facility] Comment on above: Performed By: #### B MP #### [facility] [address] [place] [address] Dr. Lucho De León HEMOGLOBIN AND HEMATOCRITon 03-28-2022 Hematocrit (Bld) [Volume fraction] 26.4 % Critically low 42.0-54.0 [facility] Comment on above: Performed By: #### H GBHCT #### [facility] [address] [place] [address] Dr. Lucho De León Hemoglobin (Bld) [Mass/Vol] 8.8 g/dL Critically low 14.0-18.0 [facility] Comment on above: Performed By: #### H GBHCT #### [facility] [address] [place] [address] Dr. Lucho De León Hematocrit (Bld) [Volume fraction] 20.9 % Critically low 42.0-54.0 [facility] Comment on above: Performed By: #### C VDTBH #### [facility] [address] [place] [address] Dr. Lucho De León Hemoglobin (Bld) [Mass/Vol] 7.1 g/dL Critically low 14.0-18.0 [facility] Comment on above: Performed By: #### C VDTBH #### [facility] [address] [place] [address] Dr. Lucho De León POINT OF CARE GLUCOSEon 03-16 Glucose [Mass/Vol] 132 mg/dL Critically high 74-106 [facility] Comment on above: Performed By: #### C BC #### [facility] [address] [place] [address] Dr. Lucho De León Glucose [Mass/Vol] 198 mg/dL Critically high 74-106 [facility] Comment on above: Performed By: #### A 1C #### [facility] [address] [address] [address] Lucho De León Glucose [Mass/Vol] 82 mg/dL Normal 74-106 [facility] Comment on above: Performed By: #### C BC #### [facility] [address] [address] [address] Lucho De León Glucose [Mass/Vol] 85 mg/dL Normal 74-106 [facility] Comment on above: Performed By: #### C VDTBH #### [facility] [address] [address] [address] Lucho De León Glucose [Mass/Vol] 115 mg/dL Critically high 74-106 [facility] Comment on above: Performed By: #### A 1C #### [facility] [address] [place] [address] Dr. Lucho De León PROF CHEM 8 (BAS METB)on Anion gap [Moles/Vol] 10.6 mmol/L Normal [facility] Comment on above: Performed By: #### M ALBR #### [facility] [address] [address] [address] Lucho De León Calcium [Mass/Vol] 8.0 mg/dL Critically low 8.5-10.1 [facility] Comment on above: Performed By: #### M ALBR #### [facility] [address] [place] [address] Dr. Lucho De León Chloride [Moles/Vol] 108 mmol/L Critically high 98-107 [facility] Comment on above: Performed By: #### M ALBR #### [facility] [address] [address] [address] Lucho De León CO2 [Moles/Vol] 23.6 mmol/L Normal 21.0-32.0 [facility] Comment on above: Performed By: #### M ALBR #### [facility] [address] [place] [address] Dr. Lucho De León Creatinine [Mass/Vol] 0.54 mg/dL Critically low 0.70-1.30 [facility] Comment on above: Performed By: #### M ALBR #### [facility] [address] [address] [address] Lucho De León EGFR-AF MOZAMBICAN >60 Normal >=60 [facility] Comment on above: Performed By: #### M ALBR #### [facility] [address] [address] [address] Lucho De León EGFR-NON AF MOZAMBICAN >60 Normal >=60 [facility] Comment on above: Performed By: #### M ALBR #### [facility] [address] [address] [address] Lucho De León Glucose [Mass/Vol] 126 mg/dL Critically high 74-106 [facility] Comment on above: Performed By: #### M ALBR #### [facility] [address] [address] [address] Lucho De León Potassium [Moles/Vol] 4.2 mmol/L Normal 3.5-5.1 [facility] Comment on above: Performed By: #### M ALBR #### [facility] [address] [address] [address] Lucho De León Sodium [Moles/Vol] 138 mmol/L Normal 136-145 [facility] Comment on above: Performed By: #### M ALBR #### [facility] [address] [address] [address] Lucho De León Urea nitrogen [Mass/Vol] 28.0 mg/dL Critically high 7.0-18.0 [facility] Comment on above: Performed By: #### M ALBR #### [facility] [address] [address] [address] Lucho De León Urea nitrogen/Creatinine [Mass ratio] 51.9 mg/mg Normal [facility] Comment on above: Performed By: #### M ALBR #### [facility] [address] [place] [address] Dr. Lucho De León CBC W MANUAL DIFFon 03-27-20 22 ATYPICAL LYMPH # Normal [facility] Comment on above: Performed By: #### C VDTBH #### [facility] [address] [place] [address] Dr. Lucho De León ATYPICAL LYMPH % Normal [facility] Comment on above: Performed By: #### C VDTBH #### [facility] [address] [place] [address] Dr. Lucho De León BAND # 0.4 103/ul Critically high 0.0-0.3 [facility] Comment on above: Performed By: #### C VDTBH #### [facility] [address] [place] [address] Dr. Lucho De León BAND % 3 % Normal 0-5 [facility] Comment on above: Performed By: #### C VDTBH #### [facility] [address] [place] [address] Dr. Lucho De León BASOM # 0.00 103/ul Normal 0.00-0.10 [facility] Comment on above: Performed By: #### C VDTBH #### [facility] [address] [place] [address] Dr. Lucho De León BASOM % 0.0 % Critically low 0.2-2.0 [place] Comment on above: Performed By: #### C VDTBH #### [facility] [address] [place] [address] Dr. Lucho De León BLAST # Normal [facility] Comment on above: Performed By: #### C VDTBH #### [facility] [address] [place] [address] Dr. Lucho De León BLAST % Normal [facility] Comment on above: Performed By: #### C VDTBH #### [facility] [address] [place] [address] Dr. Lucho De León CORRECTED WBC Normal 4.0-11.0 [facility] Comment on above: Performed By: #### C VDTBH #### [facility] [address] [place] [address] Dr. Lucho De León EOS # 0.00 103/ul Normal 0.00-0.70 [facility] Comment on above: Performed By: #### C VDTBH #### [facility] [address] [address] [address] Lucho De León EOS% 0.0 % Critically low 0.9-7.0 [place] Comment on above: Performed By: #### C VDTBH #### [facility] [address] [place] [address] Dr. Lucho De León HCT 25.1 % Critically low 42.0-54.0 [place] Comment on above: Performed By: #### C VDTBH #### [facility] [address] [place] [address] Dr. Lucho De León HGB 8.5 g/dl Critically low 14.0-18.0 [place] Comment on above: Performed By: #### C VDTBH #### [facility] [address] [place] [address] Dr. Lucho De León LYMPHM # 2.10 103/ul Normal 1.20-3.80 [facility] Comment on above: Performed By: #### C VDTBH #### [facility] [address] [place] [address] Dr. Lucho De León LYMPHM% 15.0 % Critically low 20.5-60.0 [facility] Comment on above: Performed By: #### C VDTBH #### [facility] [address] [place] [address] Dr. Lucho De León MCH 30.9 pg Normal 25.9-34.0 [facility] Comment on above: Performed By: #### C VDTBH #### [facility] [address] [place] [address] Dr. Lucho De León MCHC 33.9 g/dl Normal 29.9-35.2 [facility] Comment on above: Performed By: #### C VDTBH #### [facility] [address] [place] [address] Dr. Lucho De León MCV 91.3 fL Normal 80.0-94.0 [facility] Comment on above: Performed By: #### C VDTBH #### [facility] [address] [place] [address] Dr. Lucho De León METAMYELOCYTE # Normal [facility] Comment on above: Performed By: #### C VDTBH #### [facility] [address] [place] [address] Dr. Lucho De León METAMYELOCYTE % Normal [facility] Comment on above: Performed By: #### C VDTBH #### [facility] [address] [address] [address] Lucho De León MONOM# 0.98 103/ul Critically high 0.30-0.80 [facility] Comment on above: Performed By: #### C VDTBH #### [facility] [address] [address] [address] Lucho De León MONOM% 7.0 % Normal 1.7-12.0 [facility] Comment on above: Performed By: #### C VDTBH #### [facility] [address] [place] [address] Dr. Lucho De León MPV 10.7 fL Normal 9.5-13.5 [facility] Comment on above: Performed By: #### C VDTBH #### [facility] [address] [place] [address] Dr. Lucho De León MYELOCYTE # Normal [facility] Comment on above: Performed By: #### C VDTBH #### [facility] [address] [place] [address] Dr. Lucho De León MYELOCYTE % Normal [facility] Comment on above: Performed By: #### C VDTBH #### [facility] [address] [place] [address] Dr. Lucho De León NRBC 3 Normal [facility] Comment on above: Performed By: #### C VDTBH #### [facility] [address] [place] [address] Dr. Lucho De León PLT 176 103/ul Normal 150-450 [facility] Comment on above: Performed By: #### C VDTBH #### [facility] [address] [place] [address] Dr. Lucho De León RBC 2.75 106/ul Critically low 4.70-6.10 [facility] Comment on above: Performed By: #### C VDTBH #### [facility] [address] [place] [address] Dr. Lucho De León RDW 14.2 % Normal 11.0-15.0 [facility] Comment on above: Performed By: #### C VDTBH #### [facility] [address] [place] [address] Dr. Lucho De León SEG # 10.50 103/ul Critically high 1.40-6.[address] [facility] Comment on above: Performed By: #### C VDTBH #### [facility] [address] [place] [address] Dr. Lucho De León SEG % 75.0 % Normal 43.0-75.0 [facility] Comment on above: Performed By: #### C VDTBH #### [facility] [address] [place] [address] Dr. Lucho De León WBC 14.0 103/ul Critically high 4.0-11.0 [facility] Comment on above: Performed By: #### C VDTBH #### [facility] [address] [place] [address] Dr. Lucho De León HEMOGLOBIN AND HEMATOCRITon 03-27-2022 Hematocrit (Bld) [Volume fraction] 24.4 % Critically low 42.0-54.0 [facility] Comment on above: Performed By: #### H GBHCT #### [facility] [address] [place] [address] Dr. Lucho De León Hemoglobin (Bld) [Mass/Vol] 8.3 g/dL Critically low 14.0-18.0 [facility] Comment on above: Performed By: #### H GBHCT #### [facility] [address] [place] [address] Dr. Lucho De León POINT OF CARE GLUCOSEon 03-16 Glucose [Mass/Vol] 222 mg/dL Critically high 74-106 [facility] Comment on above: Performed By: #### B MP #### [facility] [address] [place] [address] Dr. Lucho De León Glucose [Mass/Vol] 330 mg/dL Critically high 74-106 [facility] Comment on above: Performed By: #### H GBHCT #### [facility] [address] [place] [address] Dr. Lucho De León Glucose [Mass/Vol] 357 mg/dL Critically high -106 [facility] Comment on above: Performed By: #### A 1C #### [facility] [address] [place] [address] Dr. Lucho De León Glucose [Mass/Vol] 257 mg/dL Critically high -106 [facility] Comment on above: Performed By: #### M ALBR #### [facility] [address] [place] [address] Dr. Lucho De León Glucose [Mass/Vol] 330 mg/dL Critically high -106 [facility] Comment on above: Performed By: #### C VDTBH #### [facility] [address] [place] [address] Dr. Lucho De León PROF CHEM 8 (BAS METB)on Anion gap [Moles/Vol] 15.3 mmol/L Normal [facility] Comment on above: Performed By: #### B MP #### [facility] [address] [place] [address] Dr. Lucho De León Calcium [Mass/Vol] 7.9 mg/dL Critically low 8.5-10.1 [facility] Comment on above: Performed By: #### B MP #### [facility] [address] [place] [address] Dr. Lucho De León Chloride [Moles/Vol] 106 mmol/L Normal 98-107 [facility] Comment on above: Performed By: #### B MP #### [facility] [address] [place] [address] Dr. Lucho De León CO2 [Moles/Vol] 20.9 mmol/L Critically low 21.0-32.0 [facility] Comment on above: Performed By: #### B MP #### [facility] [address] [place] [address] Dr. Lucho De León Creatinine [Mass/Vol] 0.84 mg/dL Normal 0.70-1.30 [facility] Comment on above: Performed By: #### B MP #### [facility] [address] [address] [address] Lucho De León EGFR-AF MOZAMBICAN >60 Normal >=60 [facility] Comment on above: Performed By: #### B MP #### [facility] [address] [address] [address] Lucho De León EGFR-NON AF MOZAMBICAN >60 Normal >=60 [facility] Comment on above: Performed By: #### B MP #### [facility] [address] [address] [address] Lucho De León Glucose [Mass/Vol] 275 mg/dL Critically high 74-106 T [facility] Comment on above: Performed By: #### B MP #### [facility] [address] [address] [address] Lucho De León Potassium [Moles/Vol] 5.2 mmol/L Critically high 3.5-5.1 [facility] Comment on above: Performed By: #### B MP #### [facility] [address] [address] [address] Lucho De León Sodium [Moles/Vol] 137 mmol/L Normal 136-145 [facility] Comment on above: Performed By: #### B MP #### [facility] [address] [address] [address] Lucho De León Urea nitrogen [Mass/Vol] 57.0 mg/dL Critically high 7.0-18.0 [facility] Comment on above: Performed By: #### B MP #### [facility] [address] [address] [address] Lucho De León Urea nitrogen/Creatinine [Mass ratio] 67.9 mg/mg Normal [facility] Comment on above: Performed By: #### B MP #### [facility] [address] [address] [address] Lucho De León TYPE AND SCREENon 06-12-2022 TYPE AND SCREEN Negative Normal [facility] Comment on above: Performed By: #### M ALBR #### [facility] [address] [place] [address] Dr. Lucho De León ABO RH RETYPEon 03-26-2022 ABO and Rh group Nom (Bld) DONE Normal [facility] Comment on above: Performed By: #### C VDTBH #### [facility] [address] [place] [address] Dr. Lucho De León AMYLASEon 03-26-2022 Amylase [Catalytic activity/Vol] 34 U/L Normal 25-115 [facility] Comment on above: Performed By: #### C BC #### [facility] [address] [place] [address] Dr. Lucho De León CBC AUTO DIFFon 03-26-2022 BASO # 0.0 103/ul Normal 0.0-0.1 [facility] Comment on above: Performed By: #### C BC #### [facility] [address] [place] [address] Dr. Lucho De León Basophils/100 WBC (Bld) 0.3 % Normal 0.2-2.0 [facility] Comment on above: Performed By: #### C BC #### [facility] [address] [place] [address] Dr. Lucho De León EO # 0.0 103/ul Normal 0.0-0.7 [facility] Comment on above: Performed By: #### C BC #### [facility] [address] [place] [address] Dr. Lucho De León Eosinophils/100 WBC (Bld) 0.3 % Critically low 0.9-7.0 [facility] Comment on above: Performed By: #### C BC #### [facility] [address] [place] [address] Dr. uLcho De León Erythrocyte distribution width (RBC) [Ratio] 13.9 % Normal 11.0-15.0 [facility] Comment on above: Performed By: #### C BC #### [facility] [address] [place] [address] Dr. uLcho De León Hematocrit (Bld) [Volume fraction] 30.5 % Critically low 42.0-54.0 [facility] Comment on above: Performed By: #### C BC #### [facility] [address] [address] [address] Lucho De León Hemoglobin (Bld) [Mass/Vol] 10.0 g/dL Critically low 14.0-18.0 [facility] Comment on above: Performed By: #### C BC #### [facility] [address] [address] [address] Lucho De León IG # 0.12 10e3/ul Critically high 0.00-0.[address] [facility] Comment on above: Performed By: #### C BC #### [facility] [address] [place] [address] Dr. Lucho De León IG % 1.0 % Critically high 0.0-0.5 [facility] Comment on above: Performed By: #### C BC #### [facility] [address] [address] [address] Lucho De León LYMPH # 1.4 103/ul Normal 1.2-3.8 [facility] Comment on above: Performed By: #### C BC #### [facility] [address] [place] [address] Dr. Lucho De León Lymphocytes/100 WBC (Bld) 12.5 % Critically low 20.5-60.0 [facility] Comment on above: Performed By: #### C BC #### [facility] [address] [place] [address] Dr. Lucho De León MANUAL DIFF REQ NO Normal [facility] Comment on above: Performed By: #### C BC #### [facility] [address] [place] [address] Dr. Lucho De León MCH (RBC) [Entitic mass] 31.2 pg Normal 25.9-34.0 [facility] Comment on above: Performed By: #### C BC #### [facility] [address] [place] [address] Dr. Lucho De León MCHC (RBC) [Mass/Vol] 32.8 g/dL Normal 29.9-35.2 [facility] Comment on above: Performed By: #### C BC #### [facility] [address] [place] [address] Dr. Lucho De León MCV (RBC) [Entitic vol] 95.0 fL Critically high 80.0-94.0 [facility] Comment on above: Performed By: #### C BC #### [facility] [address] [place] [address] Dr. Lucho De León MONO # 0.8 103/ul Normal 0.3-0.8 [facility] Comment on above: Performed By: #### C BC #### [facility] [address] [place] [address] Dr. Lucho De León Monocytes/100 WBC (Bld) 6.9 % Normal 1.7-12.0 [facility] Comment on above: Performed By: #### C BC #### [facility] [address] [place] [address] Dr. Lucho De León NEUT # 9.0 103/ul Critically high 1.4-6.5 [facility] Comment on above: Performed By: #### C BC #### [facility] [address] [place] [address] Dr. Lucho De León Neutrophils/100 WBC (Bld) 79.0 % Critically high 43.0-75.0 [facility] Comment on above: Performed By: #### C BC #### [facility] [address] [place] [address] Dr. Lucho De León Platelet mean volume (Bld) [Entitic vol] 10.2 fL Normal 9.5-13.5 [facility] Comment on above: Performed By: #### C BC #### [facility] [address] [place] [address] Dr. Lucho De León PLT 226 103/ul Normal 150-450 [facility] Comment on above: Performed By: #### C BC #### [facility] [address] [place] [address] Dr. Lucho De León RBC 3.21 106/ul Critically low 4.70-6.10 [facility] Comment on above: Performed By: #### C BC #### [facility] [address] [place] [address] Dr. Lucho De León WBC 11.4 103/ul Critically high 4.0-11.0 [facility] Comment on above: Performed By: #### C BC #### [facility] [address] [place] [address] Dr. Lucho De León CBC W MANUAL DIFFon 03-26-20 22 ATYPICAL LYMPH # Normal [facility] Comment on above: Performed By: #### M ALBR #### [facility] [address] [place] [address] Dr. Lucho De León ATYPICAL LYMPH % Normal [facility] Comment on above: Performed By: #### M ALBR #### [facility] [address] [place] [address] Dr. Lucho De León BAND # 0.3 103/ul Normal 0.0-0.3 [facility] Comment on above: Performed By: #### M ALBR #### [facility] [address] [place] [address] Dr. Lucho De León BAND % 2 % Normal 0-5 [facility] Comment on above: Performed By: #### M ALBR #### [facility] [address] [place] [address] Dr. Lcuho De León BASOM # 0.00 103/ul Normal 0.00-0.10 [facility] Comment on above: Performed By: #### M ALBR #### [facility] [address] [place] [address] Dr. Lucho De León BASOM % 0.0 % Critically low 0.2-2.0 [facility] Comment on above: Performed By: #### M ALBR #### [facility] [address] [place] [address] Dr. Lucho De León BLAST # Normal [facility] Comment on above: Performed By: #### M ALBR #### [facility] [address] [place] [address] Dr. Lucho De León BLAST % Normal [facility] Comment on above: Performed By: #### M ALBR #### [facility] [address] [address] [address] Lucho De León CORRECTED WBC Normal 4.0-11.[address] [facility] Comment on above: Performed By: #### M ALBR #### [facility] [address] [address] [address] Lucho De León EOS # 0.00 103/ul Normal 0.00-0.70 [facility] Comment on above: Performed By: #### M ALBR #### [facility] [address] [address] [address] Lucho De León EOS% 0.0 % Critically low 0.9-7.0 [place] Comment on above: Performed By: #### M ALBR #### [facility] [address] [place] [address] Dr. Lucho De León HCT 20.0 % Critically low 42.0-54.0 [place] Comment on above: Performed By: #### M ALBR #### [facility] [address] [place] [address] Dr. Lucho De León HGB 6.7 g/dl Critically low 14.0-18.0 [place] Comment on above: Performed By: #### M ALBR #### [facility] [address] [place] [address] Dr. Lucho De León LYMPHM # 2.53 103/ul Normal 1.20-3.80 [facility] Comment on above: Performed By: #### M ALBR #### [facility] [address] [place] [address] Dr. Lucho De León LYMPHM% 17.0 % Critically low 20.5-60.0 [facility] Comment on above: Performed By: #### M ALBR #### [facility] [address] [place] [address] Dr. Lucho De León MCH 30.6 pg Normal 25.9-34.0 [facility] Comment on above: Performed By: #### M ALBR #### [facility] [address] [place] [address] Dr. Lucho De León MCHC 33.5 g/dl Normal 29.9-35.2 [facility] Comment on above: Performed By: #### M ALBR #### [facility] [address] [place] [address] Dr. Lucho De León MCV 91.3 fL Normal 80.0-94.0 [facility] Comment on above: Performed By: #### M ALBR #### [facility] [address] [place] [address] Dr. Lucho De León METAMYELOCYTE # Normal [facility] Comment on above: Performed By: #### M ALBR #### [facility] [address] [place] [address] Dr. Lucho De León METAMYELOCYTE % Normal [facility] Comment on above: Performed By: #### M ALBR #### [facility] [address] [place] [address] Dr. Lucho De León MONOM# 0.00 103/ul Critically low 0.30-0.80 [facility] Comment on above: Performed By: #### M ALBR #### [facility] [address] [place] [address] Dr. Lucho De León MONOM% 0.0 % Critically low 1.7-12.0 [place] Comment on above: Performed By: #### M ALBR #### [facility] [address] [place] [address] Dr. Lucho De León MPV 10.9 fL Normal 9.5-13.5 [facility] Comment on above: Performed By: #### M ALBR #### [facility] [address] [place] [address] Dr. Lucho De León MYELOCYTE # Normal [facility] Comment on above: Performed By: #### M ALBR #### [facility] [address] [place] [address] Dr. Lucho De León MYELOCYTE % Normal [facility] Comment on above: Performed By: #### M ALBR #### [facility] [address] [address] [address] Lucho De León NRBC 2 Normal [facility] Comment on above: Performed By: #### M ALBR #### [facility] [address] [place] [address] Dr. Lucho De León PLT 214 103/ul Normal 150-450 [facility] Comment on above: Result Comment: Prev iously reported as: 69 On 03/26/2022 21:36 By [email or web address] Performed By: #### M ALBR #### [facility] [address] [place] [address] Dr. Lucho De León RBC 2.19 106/ul Critically low 4.70-6.10 [facility] Comment on above: Performed By: #### M ALBR #### [facility] [address] [place] [address] Dr. Lucho De León RDW 14.0 % Normal 11.0-15.0 [facility] Comment on above: Performed By: #### M ALBR #### [facility] [address] [place] [address] Dr. Lucho De León SEG # 12.07 103/ul Critically high 1.40-6.[address] [facility] Comment on above: Performed By: #### M ALBR #### [facility] [address] [place] [address] Dr. Lucho De León SEG % 81.0 % Critically high 43.0-75.0 [facility] Comment on above: Performed By: #### M ALBR #### [facility] [address] [place] [address] Dr. Lucho De León WBC 14.9 103/ul Critically high 4.0-11.0 [facility] Comment on above: Performed By: #### M ALBR #### [facility] [address] [place] [address] [address] Le[address] ABD/PELV W [...] ROSARIO BLANCO Date: 2022-03-26 05:29 Normal [facility] SARS-CoV-2 (COVID-19) RNA IVANNA+probe Ql (Unsp spec) Not detected Normal NOT DETECTED [facility] Comment on above: Result Comment: When [...] for this test is supported by the [employer]'s declaration that [...] used). Performed By: #### C VDTB #### [facility] [address] [place] [address] Dr. Lucho De León ER URINE PROFILEon 2 Bilirubin Ql (U) Negative Normal NEGATIVE [facility] Comment on above: Performed By: #### A 1C #### [facility] [address] [place] [address] Dr. Lucho De León Clarity (U) CLEAR Normal CLEAR [facility] Comment on above: Performed By: #### A 1C #### [facility] [address] [place] [address] Dr. Lucho De León Color (U) LT. YELLOW Normal YELLOW [facility] Comment on above: Performed By: #### A 1C #### [facility] [address] [place] [address] Dr. Lucho Hightower micrscopic examination will be performed if indicated. Normal [facility] Comment on above: Performed By: #### A 1C #### [facility] [address] [place] [address] Dr. Lucho De León Glucose Ql (U) >1000 Abnormal NEGATIVE [facility] Comment on above: Performed By: #### A 1C #### [facility] [address] [place] [address] Dr. Lucho De León Hemoglobin Ql (U) Negative Normal NEGATIVE [facility] Comment on above: Performed By: #### A 1C #### [facility] [address] [place] [address] Dr. Lucho De León Ketones Ql (U) 15 mg/dl Abnormal NEGATIVE [facility] Comment on above: Performed By: #### A 1C #### [facility] [address] [place] [address] Dr. Lucho De León LEUKOCYTES Negative Normal NEGATIVE [facility] Comment on above: Performed By: #### A 1C #### [facility] [address] [place] [address] Dr. Lucho De León Nitrite Ql (U) Negative Normal NEGATIVE [place] Comment on above: Performed By: #### A 1C #### [facility] [address] [place] [address] Dr. Lucho De León pH (U) 5.0 [pH] Normal 5-9 [facility] Comment on above: Performed By: #### A 1C #### [facility] [address] [place] [address] Dr. Lucho De León SPEC GRAVITY <=1.005 Abnormal 1.005-<=1.025 [facility] Comment on above: Performed By: #### A 1C #### [facility] [address] [place] [address] Dr. Lucho De León UA PROTEIN Negative Normal NEGATIVE/ TRACE [facility] Comment on above: Performed By: #### A 1C #### [facility] [address] [place] [address] Dr. Lucho De León UR MICRO IND NOT INDICATED Normal [facility] Comment on above: Performed By: #### A 1C #### [facility] [address] [place] [address] Dr. Lucho De León Urobilinogen Qn (U) 0.2 {Danny'U}/dL Normal 0.2 - 1. 0 [facility] Comment on above: Performed By: #### A 1C #### [facility] [address] [place] [address] Dr. Lucho De León LIPASEon 03-26-2022 Lipase [Catalytic activity/Vol] 69.0 U/L Critically low 73.0-393.0 [facility] Comment on above: Performed By: #### C BC #### [facility] [address] [place] [address] Dr. Lucho De León OCC BLD IMMUNO SCREENon 03-16 OCCULT BLOOD Positive Abnormal NEGATIVE [facility] Comment on above: Performed By: #### H GBHCT #### [facility] [address] [place] [address] Dr. Lucho De León POINT OF CARE GLUCOSEon 03-16 Glucose [Mass/Vol] 271 mg/dL Critically high 74-106 T [facility] Comment on above: Performed By: #### B MP #### [facility] [address] [place] [address] Dr. Lucho De León PROF 14(COMP METB)on 022 Albumin [Mass/Vol] 2.7 g/dL Critically low 3.4-5.0 [facility] Comment on above: Performed By: #### C VDTBH #### [facility] [address] [place] [address] Dr. Lucho De León ALP [Catalytic activity/Vol] 53 U/L Normal 46-116 [facility] Comment on above: Performed By: #### C VDTBH #### [facility] [address] [place] [address] Dr. Lucho De León ALT [Catalytic activity/Vol] 18 U/L Normal 16-63 [facility] Comment on above: Performed By: #### C VDTBH #### [facility] [address] [place] [address] Dr. Lucho De León Anion gap [Moles/Vol] 18.7 mmol/L Normal [facility] Comment on above: Performed By: #### C VDTBH #### [facility] [address] [place] [address] Dr. Lcuho De León AST [Catalytic activity/Vol] 14 U/L Critically low 15-37 [facility] Comment on above: Performed By: #### C VDTBH #### [facility] [address] [place] [address] Dr. Lucho De León Bilirubin [Mass/Vol] 0.2 mg/dL Normal 0.2-1.0 [facility] Comment on above: Performed By: #### C VDTBH #### [facility] [address] [address] [address] Lucho De León Chloride [Moles/Vol] 99 mmol/L Normal 98-107 [facility] Comment on above: Performed By: #### C VDTBH #### [facility] [address] [address] [address] Lucho De León CO2 [Moles/Vol] 18.3 mmol/L Critically low 21.0-32.0 [facility] Comment on above: Performed By: #### C VDTBH #### [facility] [address] [place] [address] Dr. Lucho De León Creatinine [Mass/Vol] 0.75 mg/dL Normal 0.70-1.30 [facility] Comment on above: Performed By: #### C VDTBH #### [facility] [address] [place] [address] Dr. Lucho De León Globulin (S) [Mass/Vol] 2.6 g/dL Normal [facility] Comment on above: Performed By: #### C VDTBH #### [facility] [address] [place] [address] Dr. Lucho De León Glucose [Mass/Vol] 323 mg/dL Critically high 74-106 T [facility] Comment on above: Performed By: #### C VDTBH #### [facility] [address] [place] [address] Dr. Lucho De León Potassium [Moles/Vol] 5.0 mmol/L Normal 3.5-5.1 [facility] Comment on above: Performed By: #### C VDTBH #### [facility] [address] [place] [address] Dr. Lucho De León Protein [Mass/Vol] 5.3 g/dL Critically low 6.4-8.2 Th [facility] Comment on above: Performed By: #### C VDTBH #### [facility] [address] [place] [address] Dr. Lucho De León Sodium [Moles/Vol] 131 mmol/L Critically low 136-145 Th [facility] Comment on above: Performed By: #### C VDTBH #### [facility] [address] [place] [address] Dr. Lucho De León Urea nitrogen [Mass/Vol] 65.0 mg/dL Critically high 7.0-18.0 [facility] Comment on above: Performed By: #### C VDTBH #### [facility] [address] [place] [address] Dr. Lucho De León Urea nitrogen/Creatinine [Mass ratio] 86.7 mg/mg Normal [facility] Comment on above: Performed By: #### C VDTBH #### [facility] [address] [place] [address] Dr. Lucho De León Albumin [Mass/Vol] 3.0 g/dL Critically low 3.4-5.0 [facility] Comment on above: Performed By: #### C BC #### [facility] [address] [place] [address] Dr. Lucho De León Albumin/Globulin [Mass ratio] 1.0 {ratio} Normal [facility] Comment on above: Performed By: #### C VDTBH #### [facility] [address] [place] [address] Dr. Lucho De León Performed By: #### C BC #### [facility] [address] [place] [address] Dr. Lucho De León ALP [Catalytic activity/Vol] 64 U/L Normal 46-116 [facility] Comment on above: Performed By: #### C BC #### [facility] [address] [place] [address] Dr. Lucho De León ALT [Catalytic activity/Vol] 20 U/L Normal 16-63 [facility] Comment on above: Performed By: #### C BC #### [facility] [address] [place] [address] Dr. Lucho De León Anion gap [Moles/Vol] 14.2 mmol/L Normal [facility] Comment on above: Performed By: #### C BC #### [facility] [address] [place] [address] Dr. Lucho De León AST [Catalytic activity/Vol] 11 U/L Critically low 15-37 [facility] Comment on above: Performed By: #### C BC #### [facility] [address] [address] [address] Lucho De León Bilirubin [Mass/Vol] 0.3 mg/dL Normal 0.2-1.0 [facility] Comment on above: Performed By: #### C BC #### [facility] [address] [place] [address] Dr. Lucho De León Calcium [Mass/Vol] 8.3 mg/dL Critically low 8.5-10.1 Th [facility] Comment on above: Performed By: #### C VDTBH #### [facility] [address] [place] [address] Dr. Lucho De León Performed By: #### C BC #### [facility] [address] [place] [address] Dr. Lucho De León Chloride [Moles/Vol] 102 mmol/L Normal 98-107 [facility] Comment on above: Performed By: #### C BC #### [facility] [address] [place] [address] Dr. Lucho De León CO2 [Moles/Vol] 23.4 mmol/L Normal 21.0-32.0 [facility] Comment on above: Performed By: #### C BC #### [facility] [address] [place] [address] Dr. Lucho De León Creatinine [Mass/Vol] 0.81 mg/dL Normal 0.70-1.30 [facility] Comment on above: Performed By: #### C BC #### [facility] [address] [place] [address] Dr. Lucho De León EGFR-AF MOZAMBICAN >60 Normal >=60 [facility] Comment on above: Performed By: #### C VDTBH #### [facility] [address] [place] [address] Dr. Lucho De León Performed By: #### C BC #### [facility] [address] [place] [address] Dr. Lucho De León EGFR-NON AF MOZAMBICAN >60 Normal >=60 [facility] Comment on above: Performed By: #### C VDTBH #### [facility] [address] [place] [address] Dr. Lucho De León Performed By: #### C BC #### [facility] [address] [place] [address] Dr. Lucho De León Globulin (S) [Mass/Vol] 3.0 g/dL Normal [facility] Comment on above: Performed By: #### C BC #### [facility] [address] [place] [address] Dr. Lucho De León Glucose [Mass/Vol] 261 mg/dL Critically high 74-106 T [facility] Comment on above: Performed By: #### C BC #### [facility] [address] [place] [address] Dr. Lucho De León Potassium [Moles/Vol] 4.6 mmol/L Normal 3.5-5.1 [facility] Comment on above: Performed By: #### C BC #### [facility] [address] [place] [address] Dr. Lucho De León Protein [Mass/Vol] 6.0 g/dL Critically low 6.4-8.2 Th [facility] Comment on above: Performed By: #### C BC #### [facility] [address] [place] [address] Dr. Lucho De León Sodium [Moles/Vol] 135 mmol/L Critically low 136-145 Th [facility] Comment on above: Performed By: #### C BC #### [facility] [address] [place] [address] Dr. Lucho De León Urea nitrogen [Mass/Vol] 56.0 mg/dL Critically high 7.0-18.0 [facility] Comment on above: Performed By: #### C BC #### [facility] [address] [place] [address] Dr. Lucho De León Urea nitrogen/Creatinine [Mass ratio] 69.1 mg/mg Normal [facility] Comment on above: Performed By: #### C BC #### [facility] [address] [place] [address] Dr. Lucho De León PROTIMEon 03-26-2022 INR Coag (PPP) [Relative time] 0.99 {INR} Normal [facility] Comment on above: Performed By: #### M ALBR #### [facility] [address] [place] [address] Dr. Lucho De León INR GUIDELINES SEE BELOW Normal [facility] Comment on above: Result Comment: HANS RED INR: 2.0 - 3.0 CONDITIONS NOT LISTED BELOW 2.5 - 3.5 FOR PROSTHETIC HEART VALVE REPLACEMENT 2.5 - 3.5 RECURRENT THROMBOSIS Performed By: #### M ALBR #### [facility] [address] [address] [address] Lucho De León PT Coag (PPP) [Time] 10.7 s Normal 9.0-11.6 [facility] Comment on above: Performed By: #### M ALBR #### [facility] [address] [place] [address] Dr. Lucho De León PTTon 03-26-2022 aPTT Coag (Bld) [Time] 20.8 s Critically low 22.3-36.2 [facility] Comment on above: Performed By: #### M ALBR #### [facility] [address] [place] [address] Dr. Lucho De León XR ABD FLAT [...] ROSARIO BLANCO Date: 2022-03-26 05:15 Normal [facility] Coding Summaryon 11-08-2021 Coding Summary HTMLBase 64 YbggjrokRMb1eUt+PGhl YWQ+KU4JVBHoF21ezNTk wN2WJ3wBOF4KGAFGSPYY AG5ONT3oeYR4CXpkB0Ei biAv OonguJSuFO63INm2QBR6 vLarZSiydD7zcVYqY0l7 WzUkMZ86mR98SXllLFXk LiE0GfXsridzwTQu O3soHsOkvWXwGln+PHRh YmxlIHdpZHRoPScxMDAl QzFlhVwmXW4eXw2gSYRh LWNvbGxhcHNlOiBj r5enZNEgJKycGW3ilCjc J3UfgBP2DVZqa3f8Cp36 dHI+GAOuFVV2kIqdCUpf r067HxCuq7diZCT9 wZFfVWooJIE2V50kf4Q9 UKVoPPDiQCZ7sZJ6qD4a iPwwwlelZ1CjkVSnLeP3 SVU1pRZclX0thCkl uhwqxP2aDjp+R93PVW9Y YMYUTF6FTfs2V8SaVpwh dHI+YM27MBHgPN37hTQa yFVxe9wlgFr7XkJp EIObWFX3rPujRWhpm3Xv SPByS00zjZWgh2F9YQDh qOmxaYIuPjSltMV5aV8v OKugqeste6ijbztp Bxpri2imqk33vH78X75b PHpqSXJeWUI4THNvQLOj qDweuc1wxM3sTh1+IDxj t4umo8kalFd4NeSx UDDeajUepUarTCM1o2Em Tp82N4MagUrow8CxCkb5 to67yGSfk5N2uXS0IIiz HGCvqD1sBUxiPsF3 OSYwWqFfwP06bMMjRQpr Ye4qeRyjhOkyVK7oLGCw flkkIGQnfS4cSDFjnKJy pOoySI6rBSLmnbbs m491MsWvNRM9DVRqcBWc K8GlqC9eJzXmKKHzYCYf Y5AvcSCxVIskY283LEgu HnQ8HNFnqpLyM8Ij WXDerIeaXpN7s9Z9Wd9D m6IqwpcjKBY7KLdsQLGv XqR3SaZmQvT2H0WnBpz6 AESofLwhEZ2pF8Hz JVFlhjyepegiyLY5WIHo RUOsdU79hGPfBJzvFk7n c8L5r074OFNuQUUilU60 Ph4lrLnvWFZogJRP sH8fdnild1dgkmftNvYa MPOdKWn5ZVr1TJEoaLtb HqKcLSL9PdJ8WMA8dIMd eR0smOqihhgddA6i Oyc+R86ooI4pZJO5BQN0 zndeUNWmmtNgTM70TW69 F7QtUjtojODbgMT+PGRp yrKvbVqzES2iMlJr u6vlq1KkHLrgF9NqLGUz GDlcXeg2FDVcHMF5iUD4 wS5rMZCaWGdnd2O4sYS0 F2VxheOmlk2he3mt SCWrMOsvK55qxOHrl8X8 UIBhtZY0PSZveCenNtRr rF65Fok+MVChlJyyn8Tn Oxwef9brq4idpFu5 IjMwJSIgdmFsaWduPSJ0 a7YgPg05J05cQExlBERj YDFqLCRsWHCqbPwcpc0s aZ1rKp6+PGNvbCB3 iXF5rO0cLCJsNwD2SDso G157HnGkcZEoWdzqg5ke j4xojGo7QiNsWFFaptQc kFqvWOB4x1JaBq92 M60lTOipJXHzMXXhZWIg KTOawRgibg0zcM2cSl7+ LP7ho6stgs31tD37pKA+ LYGcIPB9qJmuBPre TCQvmQ9iAZgpKqI3URAv DjTezN43aUBfKPkjPe8p vHpuqWobFA4xRENebthl k701EvPes8nlYQNl bTKmJZykPCI2A56hl0A8 NULhNOFfRHW6oXY0mG8s bGlnbjogbGVmdDsgdmVy yAsnGAutIRcyH546 IHRvcDsnPlBhdGllbnQg IwDrKSc7L8UoUub6RWVk tCduIX7mpEHtXZzsVf5t dOdrvJyzDG1cBSYg rmumt570OjZmm8dgSTCd oRNuAHdrAGG0C27nu3P2 XMLkNPVeNHY8mGT8cZ3e bGlnbjogbGVmdDsg exIssEpoAIfrHPxhE789 IHRvcDsnPkJpcnRoIERh yXM6SC57TX36tVCgv0F2 iRJ0O4ScHQMpfpcc llzhiRJ7TFZnREUxxK79 Tw6exDlyDu3qXPQcEXE4 ASHriWMsO6EezA3kIuVh JRHmMRFeS1CvwBLs QXqgG184WGnmDjW8SOYi gkKyM7WbKGBscNpvVzR2 n3J7Nf4ED2I7AN94KW83 oYOtd0M3yCN1O2Rz XMLhvlbiodsegMD5FAOg PNStgU54Ji2ozIfqBj8t OCAuFWC0PBCbuPLsV0Pj gJ6qZhZnPHFoCAWe G0EtqSAgZWjeJ191KSld FoO7OYImudZdJ5KuEURs pWggQoX9b6D9Tr1TZGs0 LN95HO20tYOkc1P0 qCE1Y4YpCWOzqxuamhgt fDH0KKMsNGAbrB64Uj7r cRhtBf0uDMImJKY1AWWq uHOxD2XsnP7aKkEq FOCtVNFgY7CtsERwZTpk N263OVmuMcS7WSWvjlYg G6MkUKUgcKykDzX6i6J2 Rr8WHKAnCS04KBI3 cME2YM48FS95Z8FtHrgi dGFibGU+PHRhYmxlIHdp ZHRoPScxMDAlJyBzdHls QG9hSk8nWXGoSDAo xPjnuMTgFlPvw3zdZYUw JQjvGG0yeTxdP2TlhKR5 UPFwp7f9Xg73A08fL5Kb dXA+NNXmvJG4oGA8 vJ4aUmFeQoD1TLjgJ507 BpLdkWKtIoisi8feb0bo vCo1HmU6VFMifgIhwCkt ULP8w1YaPo99C40v IHdpZHRoPSIxNSUiIHZh vVqrfk2akS6rFw8+PGNv fSH6rVM8rU9kNwDqKqI6 CLoiG841NwKlkZJo Xmawp1svt9yajBi3CiQg XJApelHxmUhoKTM4j2Al Lz96U8NpaTzho5DvStw8 pw54qIIrc1A8tRE3 P6IxMQWvnrqcxHJdxVgi SJ9iPHYrrkfvIGTsjN4b CAXvL5k2CeEtYpR9VEof L7NyycE6YSEmbVAv JSytXMV2H94jf6G9CYOk GJLvGHG2cTB9xK8ibEkd bjogbGVmdDsgdmVydGlj UKjkLZvqW518EBFw uBecMFYezC6iQFMdlPJo cYuoFQ9kGLOsqhieBiSQ TklPTiwgVEVERFkgSjwv dGQ+XEEnZWQ4uItl YQqnRGFfvB3nXJDxR3a8 RgIxLqA5UJypS6OpVZOi rwuaGe09uY7bEjIaKhI4 XYfbQ4ZldqX9VWLk wFEyUSalYMN7Y14sv9A5 IDAiOXDzTKD4pUG1hB9c bGlnbjogbGVmdDsgdmVy oUpmYSrkCNwaJ098 NLVepBgbGmK5TqRhNuF8 FFE2M0NfItj4TTIvpQtv CB3ouDBfVRreTg6vxDgp gGajFP1eVQCnyokb UBEksK0zOKMoqZPyvNrx MF4oNUXyofkit437PfJd XMP3MNNsrLMiL6UupU9j CcYuZVErGYYsL2Xj qVCfNQyuX637KOevLzQ4 JMUezjYkS2NnWUIzhZga CmS9o1F9Zr80JUVHWSSt czwvdGQ+PHRkIHN0 sGkxLEzlAXHkwJ7tTRUn M2d4JjYlKsD0DDewX7Ex KTSnlsjhLz38fQ7zBkJl XgH2YMbvW3EnsnB8 ZZAlnLWcOQfmMFP7X93u n0U8ESPzDGFxOJH5sJQ7 nK0bwRcjehvpcZYdzCvr dmVydGljYWwtYWxp U684ECVucLuoRp3UDAV0 J4UcRmz0ITYysCtiRN2o zKIpUBgcJk7ipUcwoCoy SL3sCYWcstruQZLj kP4vKQNqhDMgmYwhPJ1s RTEmtcqxv887RzFzVQC5 AKJkoCMaW6PbwS3sVbTx VLZsJXBtZ0NqcMEf XEzgI804AHhkKmM8KHDy qaTmH8LiLHRcvRypSqL9 a2N5Fz5TFXovyBN+PC90 gk60F9FqThwkHah2 QBYsVSL0pEF8cR1mMRVk MPlnj7Q8cUD0E0MwppQn gj7ov2icYDVvVHysS10o oFEga5B9TXDauDJ8 JQJxxXabEzFzvU68Itd+ KUDqvWaqr0ReDgflx3te m4xmoNk4JuRjMUJrzsGv zHouWCA2w0YkYj48 Q08hBLjkLAMbLCDyXLIe UHHcyNiuqd8aeC2vZm4+ TUZnqQK1dFO4aN7pDfIh JpN0YXxtL547OwPr lZZhAjyvz8hgd6mhmCj1 IjIwJSIgdmFsaWduPSJ0 o5QfHk37T3AgcSjyf6Yw Lei3gz74rZEti6E1 jSL7A9VpJEOhkvqdqFJu pMijFR0zVIGuqjzbXBZi dG9pLHDnP7g7XoQjYyS8 FNtqF2YgfbV4YFXr eBIuACQvnYDLdB5vlxql a4mitpduKsGwCPVjSMd6 KHf7BNBzoAdtYyKcTIX4 EfM2ZFI3aBUzyU2t eReimaosuE4wTyo+UGh5 c3kbnWVePO6lgIY1SF93 KY75aCHvm9A6zPY4N8Yp ZGRpbmctcmlnaHQ6 CJSsZBEueU36Ph4uvEeg Rb4zNTDlLOH5HBStkXVc V5BmnR0gPtHyYACeTVYu X4VchKWyAUrqK658 ADwwFfI8YVKmbmKnM8Ou IRImiUxpViX3v2D2Ud0L VE64VM35IR75kPZci5H8 gBJ2A1GpEYBipxnf rjcytAA5QWVvUPGfzU90 Nm3rfKlvKh4qMJKvMJD8 FYUeiSEyI3IytQ0oEoWx XOAcBTArC7EozWLy EZnlO864OSksGtF8MBBp ruYxO9DcVTAbiQpzCrA4 k9S6Na2UVq40RF08XW94 cJEbp8F9tTO7E4Nw KEBcrvtmqacecVN9XTIo GCDrtU14Nr7jmJhtYl1a JXHfQYY1NLGqfLIrE0Ie pF9xIgGhEUJeQQIt Z9KloTGaAMpdK188XCzv LpW4IDOplxQwJ2IxDEQd gClkYsD7r2Q0Uh0BIXdk ozs3O3TpEypglZA+ BU96HCEtWC13tLDsuJZa l1ucjIw2XkRuSXApWTT5 uYoqCTprg8MmBHMwK49j bBPnn1Y7PPOrxMur N (more content not included)... [facility] Provider Orderson 11-04-2021 Provider Orders [id number] #[id number] [facility] Vital Signs Date Time Vital Sign Value Performing Clinician Facility 11-29-2023 15:28-0500 Body height 170.2 cm Tonya Hardik PLUGGER MAN Work Phone: [facility] 11-29-2023 15:28-0500 Body mass index (BMI) [Ratio] 28.54 kg/m2 Tonya Hardik [employer]UGGER MAN Work Phone: [facility] 11-29-2023 15:28-0500 Body temperature 97.11 [degF] Tonya Hardik [employer]UGGER MAN Work Phone: [facility] 11-29-2023 15:28-0500 Body weight 82.64 kg Tonya Hardik PLUGGER MAN Work Phone: [facility] 11-29-2023 15:28-0500 Diastolic blood pressure 80 mm[Hg] Tonya Hardik PLUGGER MAN Work Phone: [facility] 11-29-2023 15:28-0500 Heart rate 99 /min Tonya Hardik [employer]UGGER MAN Work Phone: [facility] 11-29-2023 15:28-0500 Respiratory rate 20 /min Tonya Hardik PLUGGER MAN Work Phone: [facility] 11-29-2023 15:28-0500 SaO2% (BldA) [Mass fraction] 97 % Tonya Dye PLUGGER MAN Work Phone: [facility] 11-29-2023 15:28-0500 Systolic blood pressure 138 mm[Hg] Tonyakatja Dye PLUGGER MAN Work Phone: [facility] 08-30-2022 14:47-0500 Blood Pressure Location Bernadine GUAJARDOL [facility] [place] 08-30-2022 14:47-0500 Diastolic blood pressure 82 mm[Hg] Bernadine GUAJARDOL [facility] [place] 08-30-2022 14:47-0500 Heart rate 76 /min Bernadine GUAJARDOL [facility] [place] 08-30-2022 14:47-0500 Respiratory rate 16 /min Bernadine GUAJARDOL [facility] [place] 08-30-2022 14:47-0500 Systolic blood pressure 138 mm[Hg] Bernadine GUAJARDOL [facility] [place] 08-19-2021 14:30-0400 Body height 170.18 cm Shen Olexa Other [facility] Other 08-19-2021 14:30-0400 Body mass index (BMI) [Ratio] 31.04 kg/m2 Shen Olexa Other [facility] Other 08-19-2021 14:30-0400 Body weight 89.9 kg Shen Olexa Other [facility] Other 07-29-2021 14:30-0400 Body height 170.18 cm Shen Olexa Other [facility] Other 07-29-2021 14:30-0400 Body mass index (BMI) [Ratio] 31.32 kg/m2 Shen Olexa Other [facility] Other 07-29-2021 14:30-0400 Body weight 90.72 kg Shen Olexa Other [facility] Other Encounters Encounter Date Encounter Type Care Provider Facility Start: 02-27-2024 End: 02-27-2024 ambulatory TONYA AICHHOLZ Not Available Start: 02-08-2024 End: 02-08-2024 ambulatory LYNN H TIMMIS Not Available Start: 02-08-2024 End: 02-08-2024 ambulatory [facility] Start: 01-16-2024 End: 01-16-2024 ambulatory TONYA AICHHOLZ Not Available Start: 01-15-2024 End: 01-15-2024 ambulatory LYNN H TIMMIS Not Available Start: 01-03-2024 End: 01-03-2024 ambulatory RANULFO VÁSQUEZFAY Not Available Start: 12-27-2023 End: 12-27-2023 ambulatory Ranulfo Bagley Facility:[facility] Start: 12-26-2023 End: 12-26-2023 ambulatory RANULFO VÁSQUEZFAY Not Available Start: 12-20-2023 End: 12-20-2023 ambulatory Ranulfo Bagley Facility:[facility] Start: 12-18-2023 End: 12-18-2023 ambulatory LYNN H TIMMIS Not Available Start: 11-29-2023 End: 11-29-2023 ambulatory TONYA AICHHOLZ Not Available Start: 11-29-2023 End: 11-29-2023 Office outpatient visit 25 minutes Tonya Aichholz PLUGGER MAN Work Phone: [facility] Comment on above: Primary hypertension (CMS/[facility]) (Primary Dx); BMI 29.0-29.9,adult; Type 2 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, without long-term current use of insulin, unspecified laterality, unspecified retinopathy severity (CMS/HCC); Type 2 diabetes mellitus with diabetic neuropathy, without long-term current use of insulin (CMS/[facility]); Sebaceous cyst; 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; Ageusia; Peripheral vascular disease, unspecified (I73.9) Start: 11-29-2023 Bamboo flowsheet Tonya Aichholz PLUGGER MAN Work Phone: [facility] Start: 11-29-2023 Bamboo flowsheet Tonya Aichholz PLUGGER MAN Work Phone: [facility] Start: 10-31-2023 End: 10-31-2023 ambulatory RANULFO C LAFFAY Not Available Start: 10-31-2023 Preprocedural examination done Tonya Dye PLUGGER MAN Work Phone: [facility] Start: 10-24-2023 Office outpatient vi sit 15 minutes [facility] Start: 10-24-2023 End: 10-24-2023 ambulatory Tonya Dye Work Phone: [facility] Work Phone: Start: 10-24-2023 End: 10-24-2023 Patient encounter procedure Tonya Hardik Work Phone: [facility] Start: 09-15-2023 End: 09-16-2023 ambulatory KRISHNA VALDES Not Available Start: 01-31-2023 End: 02-01-2023 ambulatory OLI DYE Facility:[facility] Start: 01-27-2023 End: 01-28-2023 ambulatory OLI DYE Facility:[facility] Start: 12-21-2022 End: 12-22-[address] OMID RICKS Facility:[facility] Start: 11-20-2022 Encounter for other preprocedural examination MR KRISHNA VALDES . [facility] Start: 11-18-2022 End: 11-19-2022 ambulatory MR KRISHNA VALDES . Facility:[facility] Start: 11-18-2022 End: 11-19-2022 Encounter for other preprocedural examination MR KRISHNA VALDES . Facility: Start: 10-25-2022 End: 10-26-2022 ambulatory Bernadine PLATT Facility:[facility] Start: 10-25-2022 End: 10-25-2022 Patient encounter procedure Bernadine PLATT [facility] Start: 10-12-2022 End: 10-13-2022 ambulatory Bernadine PLATT Facility:CD:[id number] Start: 10-07-2022 ambulatory OLI MYERSA HARDIK [facility] ity:[facility] Start: 09-22-2022 End: 09-23-2022 ambulatory OLI CAMARGO DEVINTuckerBRETT Facility:[facility] Start: 08-30-2022 End: 08-31-2022 ambulatory Bernadine PLATT Facility:[facility] Start: 08-30-2022 End: 08-30-2022 Patient encounter procedure Bernadine PLATT General [facility] Start: 08-03-2022 ambulatory Bernadine PLATT Facility : [facility] Start: 06-21-2022 End: 06-22-[address] OMID RICKS Facility:[facility] Start: 06-14-2022 End: 06-15-2022 ambulatory OLI DYE Facility:[facility] Start: 04-27-2022 End: 04-28-[address] BINDU WAGGONER Facility:[facility] Start: 04-14-2022 End: 04-15-2022 ambulatory OLI DYE Facility:[facility] Start: 04-06-2022 End: 04-07-2022 ambulatory OLI CAMARGO DEVINTuckerBRETT Facility:[facility] Start: 03-27-2022 End: 03-30-2022 Evaluation and management of inpatient DR IRENE GONZALEZ Facility:[facility] Start: 03-26-2022 End: 03-26-[address] IRENE GONZALEZ Facility:[facility] Start: 12-16-2021 End: 12-16-2021 ambulatory Shen Olexa Other [facility] Other Start: 12-16-2021 Telephone encounter Shen Janelle [facility] Start: 12-14-2021 End: 12-14-2021 ambulatory Shen Olexa Other [facility] Other Start: 12-14-2021 Office outpatient vi sit 15 minutes Shen Olexa [facility] [place] Start: 08-19-2021 End: 08-19-2021 ambulatory Shen Olexa Other [facility] Other Start: 08-19-2021 Office outpatient vi sit 10 minutes Shen Olexa [facility] Start: 08-11-2021 Telephone encounter Krishna Bach rg [facility] Start: 07-29-2021 Office outpatient ne w 30 minutes Shen Luis [facility] Procedures Date Procedure Procedure Detail Performing Clinician Start: 10-24-2023 Plain X-ray of bilat eral elbows Tonya Dye Work Phone: Start: 01-27-2023 PSA screening OLI DYE Comment on above: Performed By: #### B MP #### [facility] [address] [place] [address] Dr. 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 TONYA DYE Start: 03-28-2022 Inspection of Upper Intestinal Tract, Via Natural or Artificial Opening Endoscopic [employer] TRUCK DRIVER TONYA DYE Start: 03-26-2022 Transfusion of Nonau tologous Red Blood Cells into Peripheral Vein, Percutaneous Approach [employer] TR[employer] DRIVER TONYA YDE Start: 11-10-2021 Endarterectomy and angioplasty of common femoral artery Bernadine PLATT Start: 03-09-2021 Angioplasty of super ficial femoral artery Bernadine PLATT Start: 10-16-2016 Colonoscopy Tonya myers NP Work Phone: Repair of musculoten dinous cuff of shoulder Bernadine PLATT Plan of Treatment Date Care Activity Detail Author Start: 10-16-2026 Screening for malign ant neoplasm of colon [facility] Start: 11-22-2024 Glaucoma screening Diabetes: R etinopathy Screening [facility] Start: 02-27-2024 End: 02-27-2024 Patient encounter procedure 02/27/2024 3:00 PM EDT Office Visit [facility] [address] [place] [address] Tonya Dye NP [address] [place] [address] [facility] Start: 01-28-2024 Urine screening for protein Diabetes: Urine Protein Screening [facility] Start: 11-29-2023 End: 11-29-2023 Patient encounter procedure 11/29/2023 3:20 PM EST [facility] [address] [place] [id number] Tonya Dye NP [address] [place] [id number] Arrived [facility] Comment on above: Arrived Start: 11-29-2023 End: 11-29-2024 CT Maxillofacial region WO and W contrast IV CT SINUS WO IV CONTRAST Imaging Routine 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 Ageusia Expected: 11/29/2023 (Approximate), Expires: 11/29/2024 [facility] Comment on above: Expected: 11/29/2023 (Approximate), Expires: 11/29/2024 Start: 11-29-2023 Hemoglobin A1c measurement Diabetes: Hemoglobin A1C [facility] Start: 11-29-2023 End: 11-29-2024 Hemoglobin A1c/Hemoglobin.total in Blood Hemoglobin A1c Lab Routine Type 2 diabetes mellitus with diabetic neuropathy, without long-term current use of insulin ([facility]) Expected: 11/29/2023 (Approximate), Expires: 11/29/2024 [facility] Work Phone: Comment on above: Expected: 11/29/2023 (Approximate), Expires: 11/29/2024 Start: 04-15-2023 Glaucoma screening Diabetes: R etinopathy Screening [facility] Start: 1950 Medicare Annual Well ness (AWV) Medicare Annual Wellness (AWV) [facility] Start: 1950 Screening for malign ant neoplasm of colon [facility] Immunizations Immunization Date Immunization Notes Care Provider Fa cili 08-03-2023 Influenza, High-dose Seasonal, Quadrivalent, Preservative Free Tonya Dye NP Work Phone: [facility] 12-17-2022 zoster vaccine recombinant Tonya Aichholz [employer]UGGER MAN Work Phone: [facility] 07-27-2022 influenza, injectabl e, quadrivalent, preservative free Tonya Aichholz PLUGGER MAN Work Phone: [facility] 07-29-2021 Kenalog -40 mg Shen Olexa Other [facility] Other 12-24-2020 COVID-19 Ad26.COV2.S (Venkatesh) Tonya Aichholz Work Phone: [facility] 09-07-2020 pneumococcal polysaccharide vaccine, 23 valent Shen Olexa Other [facility] Other 06-30-2020 influenza, injectabl e, quadrivalent, preservative free Tonya Aichholz PLUGGER MAN Work Phone: [facility] 06-30-2020 influenza, seasonal, injectable Shen Olexa Other [facility] Other 08-07-2019 pneumococcal conjuga te vaccine, 13 valent Shen Olexa Other [facility] Other 07-25-2019 influenza, high dose seasonal, preservative-free Tonya Aichholz PLUGGER MAN Work Phone: [facility] 08-26-2017 zoster vaccine, live Tonya chholz [employer]UGGER MAN Work Phone: [facility] 08-01-2003 tetanus toxoid, adsorbed Tonya Aichholz PLUGGER MAN Work Phone: [facility] Payers Date Payer Category Payer Self-pay [id number] 2017 Unknown GENERIC OTHER GE NERIC OTHER [id number] 2017-Present [phone] [place] [place] [address] [id number] 2016 Medicare MEDICARE MEDICAR E PART B [id number] 2016-[place] [address] Medicare [id number]. [id number] 1959 Medicare [id number] 2.16.840.1.790853.19 1959 Unknown [id number] 2.16.840.1.635683.19 1951 Unknown [id number] 2.16.840.1.931938.3.579.2.72 7 1951 Unknown [id number] 2.16.840.1.797721.3.579.2.72 7 1951 Unknown [id number] 2.16.840.1.263986.3.579.2.72 7 1951 Unknown [id number] 2.16.840.1.881471.3.579.2.72 7 1951 Unknown [id number] 2.16.840.1.909804.3.579.2.59 3 1951 Unknown [id number] 2.16.840.1.118265.3.579.2.59 3 1951 Unknown [id number] 2.16.840.1.189120.3.579.2.59 3 1951 Unknown [id number] 2.16.840.1.031748.3.579.2.59 3 1951 Unknown [id number] 2.16.840.1.078792.3.579.2.59 3 1951 Unknown [id number] 2.16.840.1.043900.3.579.2.59 3 1951 Unknown [id number] 2.16.840.1.062158.3.579.2.59 3 1951 Unknown [id number] 2.16.840.1.034335.3.579.2.59 3 1951 Unknown [id number] 2.16.840.1.428288.3.579.2.59 3 1951 Unknown [id number] 2.16.840.1.025979.3.579.2.59 3 1951 Unknown [id number] 2.16.840.1.518622.3.579.2.59 3 1951 Unknown [id number] 2.16.840.1.166515.3.579.2.59 3 1951 Unknown [id number] 2.16.840.1.079835.3.579.2.59 3 1951 Unknown [id number] 2.16.840.1.607521.3.579.2.59 3 1951 Unknown [id number] 2.16.840.1.269603.3.579.2.12 86 1951 Unknown [id number] 2.16.840.1.960966.3.579.2.12 59 1951 Unknown [id number] 2.16.840.1.728973.3.579.2.12 59 1951 Unknown [id number] 2.16.840.1.471217.3.579.2.12 59 1951 Unknown [id number] 2.16.840.1.044021.3.579.2.12 59 1951 Unknown [id number] 2.16.840.1.678144.3.579.2.12 59 1951 Unknown [id number] 2.16.840.1.733364.3.579.2.12 59 1951 Unknown [id number] 2.16.840.1.546716.3.579.2.12 59 1951 Unknown [id number] 2.16.840.1.445142.3.579.2.12 59 1951 Unknown [id number] 2.16.840.1.198723.3.579.2.12 59 1951 Unknown [id number] 2.16.840.1.766217.3.579.2.12 59 1951 Unknown [id number] 2.16.840.1.921339.3.579.2.12 59 1951 Unknown [id number] 2.16.840.1.547415.3.579.2.12 59 Unknown [facility] [id number] Unknown HCAP/HFA/FAP Active [id number] Unknown [id number] 2.16.840.1.503540.3.579.2.53 1 Unknown [id number] 2.16.840.1.653377.3.579.2.53 1 Unknown [id number] 2.16.840.1.060319.3.579.2.53 1 Social History Date Type Detail Facility Start: 10-31-2023 End: 11-29-2023 Sex Assigned At [facility] Start: 08-30-2022 Tobacco smoking status Heavy t obacco smoker (finding) [facility] Tobacco smoking status Never [facility] [place] Start: 03-14-[facility]21 [facility] Start: 1950 Sex Assigned At Male F [facility] Start: 10-30-2023 [facility] History of tobacco use Cigarette Smoker [facility] Start: 10-30-2023 End: 11-29-2023 Cigarettes smoked current (pack per day) - Reported 1 [facility] Start: 10-30-2023 Tobacco use and exposure Smokeless tobacco non-user [facility] Start: 11-29-2023 Alcohol intake Lifetime non-d heath (finding) [facility] Start: 1950 Sex Assigned At Not on file N [facility] Medical Equipment Procedure Code Equipment Code Equipment Origin al Text Equipment Identifier Dates NovoFine 32G X 6 MM Start : 09-24-2020 Multiple periphe ral artery stent, bare-metal ()[id number] [facility] Start: 03-09-2021 Functional Status Date Assessment Result Facility 08-30-2022 Functional Status N/A General [facility]ayla [facility] Clinical Notes 03-09-2021 to 11-29-2023 Tonya Dye NP - 11/29/2023 4:38 PM ESTTonya Dye, SHIVAM - 11/29/2023 4:36 PM ESTTonya Dye, PLUGGER MAN - 11/29/2023 4:34 PM ESTClaudiasa Hardik, PLUGGER MAN - 11/29/2023 4:34 PM EST Note Date [...] Uncontrolled type 2 diabetes mellitus with hyperglycemia ([facility]) Check blood sugars daily, notify if <70 [...] from the original note were not included. Darin Thacker is a 73 y.o. male presents [...] 140-180 mg/dl. An SANTOS inhibitor/angiotensin II receptor shima is being taken. He does not see a beauty operator.Eye exam is current. Hypertension This is a [...] right Psoriasis (CMS/HCC) PVD (peripheral vascular disease) ([facility]/HCC) Retinopathy, diabetic, bilateral (CMS/HCC) Ringing in ears, right Seasonal allergies Sebaceous cyst Tobacco user Uncontrolled type 2 diabetes mellitus with hyperglycemia ([facility]/HCC) Vitamin B12 deficiency Past Surgical History: Procedure [...] SINUS WO IV CONTRAST BMI 29.0-29.9,adult Diabetes ([facility]) Relevant Orders Hemoglobin A1c HTN (hypertension) ([facility]) - Primary No changes needed in medication regimine Sebaceous cyst Still waiting on approval from [facility] to stop plavix for proceedure Ageusia Relevant Orders CT SINUS WO IV CONTRAST documented in this encounter [facility] 10-24-2023 Evaluation note Encounter Date Diagnosis Assessment [...] Pain in right elbow (ICD-10 - M25.521) [facility] Other 12-29-2022 Hospital Discharge instructions Follow Up Care 10/13/2022 10:40:40 With:MANJIT WILKINS, JULIA Mays Address: [place] [address]- When: only if needed General [facility] [id number] NoteOPERATIVE NOTE OPERATION DATE: 10/12/2022 PREOPERATIVE DIAGNOSIS: [...] area in good condition. CC: Tonya Dye, [facility]11-20-2022 NoteChief Complaint consultation for sebaceous cyst [...] plan excisional biopsy under local anesthesia at [facility] once inflammation has decreased; approximately4 weeks; [...] Cipro (Itching) Victoza (Itchin (more content not included)...[facility]Result Comment: Electronically Signed By: MANJIT WILKINS, Bernadine Calle\Date and Time Signed: 09/04/22 11:08 [id number] Evaluation note* Encounter Date Diagnosis Assessment Notes [...] of right lower extremity (ICD-10 - I82.491) [facility] Other 11-04-2021 Evaluation note* Encounter Date Diagnosis Assessment Notes Treatment Notes Treatment Clinical Notes Aug, Arthritis of right knee (ICD-10 - M17.11) Patient is doing well at this time. He will continue daily strengthening exercises and progress activity as tolerated [facility] Other 10-14-2021 Evaluation note* Encounter Date Diagnosis [...] MRI for further evaluation for meniscal tear. [facility] Other 05-25-2021 History general Narrative - Reported* Type Description Date Medical History type II diabetes Medical History HTN Medical History psoriasis Surgical History rotator cuff tear repair 011 Surgical History right leg angioplasty 03/09/21 Hospitalization History see surgical [facility] Other 05-25-2021 History general Narrative - Reported* Type Description Date Medical History type II diabetes Medical History HTN Medical History psoriasis Medical History DVT Surgical History rotator cuff tear repair 011 Surgical History right leg angioplasty 03/09/21 Hospitalization History see surgical [facility] Other Evaluation + Plan note No data available for this section General Surgery [facility] Evaluation noteNo InformationNort CosmosID Other Evaluation noteNo assessment information available [facility] Work Phone: Evaluation note* Diagnosis Primary hypertension [...] data available for this section [facility] [place] Progress note No data available for this section [facility] [place] Summary Purpose Family History No Family History [...] Procedures CT SINUS WO IV CONTRAST Tonya Dye, SHIVAM [address] [place] [address] Referral ID Status Reason Start Date Expiration Date V isits Requested Visits Authorized [id number] Pending Review 11/29/2023 05/27/2024 1 1 Additional Source Comments (unrecognized sect ion and content) No Status Records FoundNo Status Records FoundNo Status Records FoundNo Status Records FoundNo Status Records FoundNo Status Records Found INFORMATION SOURCE (unrecogn ized section and content) DATE CREATED AUTHOR 11/08/2021 [facility] DATE CREATED AUTHOR AUTHOR'S ORGANIZ ATION 10/26/2022 [facility] DATE CREATED AUTHOR AUTHOR'S ORGANIZ ATION 02/05/2023 [facility] DATE CREATED AUTHOR AUTHOR'S ORGANIZ ATION 01/05/2024 [facility] DATE CREATED AUTHOR AUTHOR'S ORGANIZ ATION 02/09/2024 [facility] DATE CREATED AUTHOR AUTHOR'S ORGANIZ ATION 02/29/2024 [facility] EPIC REASON FOR VISIT [...] Active Shen Luis MD Attending Provider Active [employer] Relationship Specialty Start Date End Date Mumtaz Harry MD [address] [place] [phone] PCP - General Family Medicine 11/28/23 Tonya Dye NP [address] [place] [phone] Referring Physician Nurse Practitioner 03/09/23 [employer] Relationship Specialty Start Date End Date Mumtaz Harry MD [address] [place] [phone] PCP - General Family Medicine 11/28/23 Tonya Dye NP [address] [place] [phone] Referring Physician Nurse Practitioner 03/09/23 Goals (unrecognized [...] BE BASED ON THE PRIMARY CLINICAL RECORDS. [facility]. provides no warranty or guarantee of the accuracy or completeness of information in this document.
[2024-03-05 15:12] LABS: Basophils Percent Auto 0.5 % (0.2-2.0); Eosinophils Absolute Auto 0.2 10^3/uL (0.0-0.7); Eosinophils Percent Auto 1.9 % (0.9-7.0); Hematocrit 51.5 % (42.0-54.0); Hemoglobin 17.3 g/dL (14.0-18.0); Immature Granulocytes Abs Auto 0.09 10^3/uL (0.00-0.03); Lymphocytes Absolute Auto 2.4 10^3/uL (1.2-3.8); Lymphocytes Percent Auto 27.2 % (20.5-60.0); Mean Corpuscular HGB Conc 33.6 g/dL (29.9-35.2); Mean Corpuscular Hemoglobin 31.5 pg (25.9-34.0); Mean Corpuscular Volume 93.6 fL (80.0-94.0); Monocytes Absolute Auto 0.8 10^3/uL (0.3-0.8); Monocytes Percent Auto 9.3 % (1.7-12.0); Neutrophils Absolute Auto 5.3 10^3/uL (1.4-6.5); Neutrophils Percent Auto 60.1 % (43.0-75.0); Platelet Count 206 10^3/uL (150-450); Red Cell Distribution Width 14.4 % (11.0-15.0); White Blood Count 8.8 10^3/uL (4.0-11.0)
[2024-03-05 15:13] LABS: Creatinine Urine Random 55.68 mg/dL (20.00-300.00); Microalbum Creatinine Ratio Ur 73.6 mg/g (0.0-29.9); Microalbumin Urine Random 4.1 mg/dL (<=30.0)
[2024-03-05 15:15] LABS: Estimated Average Glucose 174 mg/dL; Glycohemoglobin A1C 7.7 % (4.5-6.2)
[2024-03-05 15:19] LABS: Bilirubin Urine NEGATIVE (NEGATIVE); Blood Urine NEGATIVE (NEGATIVE); Clarity Urine CLEAR (CLEAR); Color Urine YELLOW (YELLOW); Glucose Urine UA >=1000 mg/dL (NEGATIVE); Ketones Urine NEGATIVE (NEGATIVE); Leukocyte Esterase Urine NEGATIVE (NEGATIVE); Nitrite Urine NEGATIVE (NEGATIVE); Protein Urine NEGATIVE (NEG/TRACE); Urobilinogen Urine 0.2 EU/dL (0.2-1.0)
[2024-03-05 15:23] LABS: Urine Microscopic Indicated NO
[2024-03-05 15:58] LABS: Alanine Aminotransferase 23 U/L (16-63); Albumin Level 3.6 g/dL (3.4-5.0); Alkaline Phosphatase 91 U/L (46-116); Anion Gap 15.5; Aspartate Amino Transferase 14 U/L (15-37); BUN Creatinine Ratio 24.6; Bilirubin Total 0.5 mg/dL (0.2-1.0); Calcium 9.5 mg/dL (8.5-10.1); Carbon Dioxide 24.8 mmol/L (21.0-32.0); Chloride 100 mmol/L (98-107); Chol HDL Ratio 3.8; Cholesterol 180 mg/dL (<=200); Estimated GFR (African America >60 (>=60); Estimated GFR (Non-African Ame >60 (>=60); Globulin 3.7 g/dL; Glucose 114 mg/dL (74-106); HDL Cholesterol 48 mg/dL (40-60); LDL Cholesterol Calculated 108.6 mg/dL; Potassium 4.3 mmol/L (3.5-5.1); Sodium 136 mmol/L (136-145); Total Protein 7.3 g/dL (6.4-8.2); Triglycerides 117 mg/dL (<=150); VLDL CHOLESTEROL 23.4 mg/dL
[2024-03-05 16:01] LABS: Prostate Specific Antigen Dx 0.47 ng/mL (<=4.00)
== END 2024-03-05 14:13 | disposition home or self-care (01) ==
LOC: LAB 14:13
PROVIDERS: PCP Nurse Practitioner; Visit Provider Nurse Practitioner
DX: E78.2 Mixed hyperlipidemia (principal); I10 Essential (primary) hypertension; E11.65 Type 2 diabetes mellitus with hyperglycemia; D50.9 Iron deficiency anemia, unspecified; Z12.5 Encounter for screening for malignant neoplasm of prostate; E53.8 Deficiency of other specified B group vitamins
CPT/HCPCS: 36415; 80053; 80061; 81003; 82043; 82570; 82607; 82728; 83036; 83540; 84153; 85025

== ENCOUNTER 2024-03-10 22:11 | Inpatient (IN) | payer MEDICARE, OTHER, SELFPAY ==
[2024-03-10 22:13] VITALS: BP 132/64; PULSE 108; TEMP 37.7; O2SAT 94; BMI 28.2
--- NOTE | 2024-03-10 22:22 | ECG_ITS ---
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
--- OUTSIDE RECORDS SUMMARY | 2024-03-10 22:22 | XMS_ITS | CCD ---
Author Organization [facility] Care Team Providers Care Horticultural Farmer Name Role Phone Shen Luis Unavailable Krishna Ocasio Unavailable TONYA DYE Primary Care Physician Bernadine PLATT Attending Unavailable TONYA DYE Referring Unavailabl Bernadine Mehta Attending Unavailable TONYA DYE Referring Unavailabl e Bernadine PLATT Attending Unavailable Bernadine PLATT Attending Unavailable AICHHOLZ, MARKETING OPERATIONS INTERN TONYA Consulting Unavailable AICHHOLZ, MARKETING OPERATIONS INTERN TONYA Primary Care Unavailable AICHHOLZ, MARKETING OPERATIONS INTERN TONYA Attending Unavailable AICHHOLZ, MARKETING OPERATIONS INTERN TONYA Admitting Unavailable AICHHOLZ, MARKETING OPERATIONS INTERN TONYA Consulting Unavailable AICHHOLZ, MARKETING OPERATIONS INTERN TONYA Primary Care Unavailable AICHHOLZ, MARKETING OPERATIONS INTERN TONYA Attending Unavailable AICHHOLZ, MARKETING OPERATIONS INTERN TONYA Admitting Unavailable PRIETO, DR BHAVANA Pinzon Consulting Unavailable ABBAS, DR ANNE Consulting Unavailable AICHHOLZ, MARKETING OPERATIONS INTERN TONYA Primary Care Unavailable ABBAS, DR ANNE Attending Unavailable ABBVICKY, DR ANNE Admitting Unavailable PRIETO, DR BHAVANA Pinzon Consulting Unavailable VALDES ., MR KRISHNA Consulting Unavailable AICHHOLZ, MARKETING OPERATIONS INTERN TONYA Primary Care Unavailable VALDES ., MR KRISHNA Attending Unavailable VALDES ., MR KRISHNA Admitting Unavailable AICHHOLZ, MARKETING OPERATIONS INTERN TONYA Consulting Unavailable AICHHOLZ, MARKETING OPERATIONS INTERN TONYA Primary Care Unavailable AICHHOLZ, MARKETING OPERATIONS INTERN TONYA Attending Unavailable AICHHOLZ, MARKETING OPERATIONS INTERN TONYA Admitting Unavailable ZIMARGARITO, DR BHAVANA Pinzon Consulting Unavailable DR IRENE GONZALEZ Procedure Practitioner Unavaila DR IRENE Yang Consulting Unavailable SHAIKH Tucker PUENTES Attending Unavailable SHAIKH Tucker PUENTES Admitting Unavailable AICHHOLZ, MARKETING OPERATIONS INTERN TONYA Primary Care Unavailable NISHANTILLIS ., DR BERNADINE Pink Consulting Unavaila ble GRILLIS ., DR BERNADINE Pink Procedure Practitioner U IAN Caputo Consulting Unavailable SHAIKH Tucker PUENTES Consulting Unavailable SID KWONG Consulting Unavailable BHAVANA MCCANN Consulting Unavailable NILL ., DR COLINDRES Consulting Unavailable AICHHOLZ, MARKETING OPERATIONS INTERN TONYA Primary Care Unavailable NILL ., DR COLINDRES Attending Unavailable NILL ., DR COLINDRES Admitting Unavailable MEJIA JOINER Consulting Unavailable AICHHOLZ, MARKETING OPERATIONS INTERN TONYA Primary Care Unavailable NILL ., DR COLINDRES Attending Unavailable NILL ., DR COLINDRES Admitting Unavailable CARLOS, DR IRENE Pinzon Consulting Unavailable GONZALEZ, DR IRENE Pinzon Attending Unavailable GONZALEZ, DR IRENE Pinzon Admitting Unavailable AICHHOLZ, MARKETING OPERATIONS INTERN TONYA Primary Care Unavailable ROSARIO BLANCO Consulting Unavailable AICHHOLZ, MARKETING OPERATIONS INTERN TONYA Consulting Unavailable AICHHOLZ, MARKETING OPERATIONS INTERN TONYA Primary Care Unavailable AICHHOLZ, MARKETING OPERATIONS INTERN TONYA Attending Unavailable AICHHOLZ, MARKETING OPERATIONS INTERN TONYA Admitting Unavailable AICHHOLZ, MARKETING OPERATIONS INTERN TONYA Consulting Unavailable AICHHOLZ, MARKETING OPERATIONS INTERN TONYA Primary Care Unavailable AICHHOLZ, MARKETING OPERATIONS INTERN TONYA Attending Unavailable AICHHOLZ, MARKETING OPERATIONS INTERN TONYA Admitting Unavailable AICHHOLZ, MARKETING OPERATIONS INTERN TONYA Consulting Unavailable AICHHOLZ, MARKETING OPERATIONS INTERN TONYA Primary Care Unavailable AICHHOLZ, MARKETING OPERATIONS INTERN TONYA Attending Unavailable AICHHOLZ, MARKETING OPERATIONS INTERN TONYA Admitting Unavailable ABBAS, DR ANNE Consulting Unavailable AICHHOLZ, MARKETING OPERATIONS INTERN TONYA Primary Care Unavailable ABBAS, DR ANNE Attending Unavailable MILLICENT, DR ANNE Admitting Unavailable ROSALINE, DR BINDU Brown Consulting Unavailable AICHHOLZ, MARKETING OPERATIONS INTERN TONYA Primary Care Unavailable AICHHOLZ, MARKETING OPERATIONS INTERN TONYA Attending Unavailable AICHHOLZ, MARKETING OPERATIONS INTERN TONYA Admitting Unavailable AICHHOLZ, MARKETING OPERATIONS INTERN TONYA Consulting Unavailable Aichholz, Tonya J Primary Care Provider MD Shen Luis Attending Provider Aichholz ETL ANALYST DEVELOPER, Tonya Unavailable Mumtaz Harry MD Primary Care Provider [phone] Ranulfo Bagley Attending Unavailable Aichholz, Tonya J [...] 03-14-20 21 Itching (finding), Unknown [facility] (11 sources) liraglutide; Translations: [liraglutide] Drug Allergy 11-07-19 20 Itching (finding) [facility] (4 sources) liraglutide; Translations: [Victoza] Drug Allergy 03-26-20 22 rash [facility] (7 sources) Penicillin; Translations: [penicillin] Drug Allergy Itching (finding) [facility] (5 sources) Penicillin V Drug Allergy Unknown [facility] [facility] Other (8 sources) Pollen Propensity to adverse reactions Unknown [facility] [facility] Other (7 sources) Cefaclor; Translations: [cefaclor] Drug Allergy 09-19-20 23 Itching (finding) [facility] (2 sources) Ciprofloxacin; Translations: [Cipro] Drug Allergy 04-30-20 21 [facility] (1 source) Cefaclor Drug Allergy [facility]ository (1 source) dulaglutide Drug Allergy 03-26-20 22 [facility] (1 source) insulin aspart, human Drug Allergy 03-27-20 22 [facility] (1 source) Penicillin Drug Allergy 03-26-20 22 [facility] (3 sources) Penicillins; Translations: [Penicillins] Allergy to substance 11-07-19 Itching [facility] (4 sources) dulaglutide; Translations: [DULAGLUTIDE] Drug Allergy 11-05-19 Unknown [facility] (3 sources) liraglutide Drug Allergy 03-09-20 Unknown [facility] (3 sources) Penicillin G Drug Allergy 03-09-20 Unknown [facility] (1 source) Cefaclor Drug Allergy 12-27-19 [facility] Repository (1 source) Ciprofloxacin Drug Allergy 12-27-19 [facility]ository (1 source) dulaglutide Drug Allergy 12-27-19 [facility]ository (1 source) liraglutide Drug Allergy 12-27-19 [facility] Repository (1 source) Pollen Drug allergy (disorder) 12-27-19 [facility] Repository Medications Current Medications Medication Drug Class(es) [...] take 1 tablet by mouth at [facility] or ferrous sulfate 325 (65 Fe) MG tablet [...] 2021 11:00pm take 1 capsule by mo [facility] every eight hours Gabapentin 300 MG 1 capsule Orally three times a day for 90 days Active glipiZIDE 10 mg oral tablet (10 sources) Sulfonylurea Start: 03-09-2021 take 10 mg by mouth once daily Glipizide Active 10 MG PO Daily March 08, 2021 11:00pm take 1 tablet by [facility] twice daily 30 minutes before lunch glipiZIDE [...] Active Start: 03-09-2021 take 1 capsule by [facility] once daily Flomax 0.4 mg Cap 0.4 [...] Peripheral vascular disease, unspecified; Translations: [Atherosclerosis of [place] arteries of extremities with rest pain, bilateral [...] Onset: 04-04-2022 Episodic Other aftercare (1 source) [facility] (current) use of aspirin; Translations: [CUSTODIAL CURRENT USE OF ASPIRIN] Onset: 10-20-2022 Episodic Other aftercare (1 source) Other long term acute care registered nurse (current) drug therapy; Translations: [OTH CUSTODIAL CURRENT DRUG THERAPY] Onset: 10-20-2022 Episodic Other aftercare (1 source) long term acute care registered nurse (current) use of 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 latelets; Translations: [SKEIN DRIER ANTITHROMBOT/ANTIPLAT LETS] Onset: 10-20-2022 Episodic Other aftercare (1 source) [facility] (current) use of oral hypoglycemic drugs; Translations: [...] 0 12-27-2023 Glucose [Mass/Vol] 139 mg/dL Normal [facility] Comment on above: Result Comment: [facility] Glucose Reference Range is dependent on time and content of last meal. Glucose of more than 200 mg/dL in a nonstressed, ambulatory subject supports the diagnosis of Diabetes Mellitus. PERFORMED BY: [facility] [address] [place] [id number] PATHOLOGIST COMPUTED TOMOGRAPHY SCANNER OPERATOR ANGELES PAUL M.D. Performed By: #### G LULS #### Point of Care testing , Commemt1 Glu2: Cleaned Meter Normal [facility] Comment on above: Result Comment: PERF ORMED BY: [facility] [address] [place] [address] PATHOLOGIST COMPUTED TOMOGRAPHY SCANNER OPERATOR ANGELES PAUL M.D. Performed By: #### G LULS #### Point of Care testing , Glucose [Mass/Vol] 166 mg/dL Normal [facility] Comment on above: Result Comment: [place] Glucose Reference Range is dependent on time and content of last meal. Glucose of more than 200 mg/dL in a nonstressed, ambulatory subject supports the diagnosis of Diabetes Mellitus. Performed By: #### G LULS #### Point of Care testing , Magdiel 12-27-2023 L Specimen: [id number] Received: 12/28/23 [facility] Num: [id number] Spec Type: Surgical Subm Dr: Ranulfo Bagley DO Tissues: A Skin Cyst (SEBACEOUS CYST RT SHOULDER) Procedures: HE, Gross/Micro L3 Age/ Patient Sex Location Account Attending Physician Darin Thacker Gail 73/M [place] [id number] Ranulfo Bagley DO SPEC NUM: [id number] RECD: 12/28/23 STATUS: GLADISAdan PABLO NUM: [id number] ZORA: 12/27/[address]: Ranulfo Bagley DO ENTERED: 12/28/[address] [facility] [address]: SPEC TYPE: Surgical DEPT: S [...] material. The surrounding tissue is firm, yellow-shaw.. Cover Seamer sections are submitted in one cassette labeled A1. Microscopic Description Microscopic evaluation supports the above rendered diagnosis. CPT Codes 61022 Specimen: [id number] Received: 12/28/23 Status: JERMAINE Pablo Num: [id number] Spec Type: Surgical Subm Dr: Ranulfo Bagley, Tissues: A Skin Cyst (SEBACEOUS CYST RT SHOULDER) Procedures: HE, Gross/Micro L3 Patient: Darin Thacker [id number] (Continued) Signed (signature on file) Hillary Rosenbaum MD 12/29/23 1304 Normal [facility] Basic Metabolic Panelon 03-0 Anion gap [Moles/Vol] 10.4 mmol/L Normal 6.0-15.0 [facility] Comment on above: Performed By: #### B MP, SCAN CBC #### [facility] [address] Calcium [Mass/Vol] 9.5 mg/dL Normal 8.6-10.[address] [facility] Comment on above: Result Comment: PERF ORMED BY: [facility] [address] [place] [address] PATHOLOGIST COMPUTED TOMOGRAPHY SCANNER OPERATOR ANGELES PAUL M.D. Performed By: #### B MP, SCAN CBC #### [facility] [address] [place] [address] [place] Chloride [Moles/Vol] 105 mmol/L Normal 98-107 [facility] Comment on above: Performed By: #### B MP, SCAN CBC #### [facility] [address] [place] [id number] [place] CO2 [Moles/Vol] 24.3 mmol/L Normal 21.0-31.0 [facility] Comment on above: Performed By: #### B MP, SCAN CBC #### [facility] [address] [place] [address] [place] Creatinine [Mass/Vol] 0.66 mg/dL Low 0.70-1.30 [facility] Comment on above: Performed By: #### B MP, SCAN CBC #### [facility] [address] [place] [address] [place] GFR/1.73 sq M.predicted MDRD (S/P/Bld) [Vol rate/Area] mL/min/{1.73_m2} Normal [facility] Comment on above: Performed By: #### B MP, SCAN CBC #### [facility] [address] [place] [address] [place] Glucose [Mass/Vol] 129 mg/dL High 70-[address] [facility] Comment on above: Result Comment: [facility] Glucose Reference Range is dependent on time and content of last meal. Glucose of more than 200 mg/dL in a nonstressed, ambulatory subject supports the diagnosis of Diabetes Mellitus. ADA recommended reference range Performed By: #### B MP, SCAN CBC #### [facility] [address] [place] [address] [place] Potassium [Moles/Vol] 4.7 mmol/L Normal 3.5-5.1 [facility] Comment on above: Performed By: #### B MP, SCAN CBC #### [facility] [address] [place] [id number] [place] Sodium [Moles/Vol] 135 mmol/L Low 136-[address] [facility] Comment on above: Performed By: #### B MP, SCAN CBC #### [facility] [address] [place] [id number] [place] Urea nitrogen [Mass/Vol] 18 mg/dL Normal 7-25 [facility] Comment on above: Performed By: #### B MP, SCAN CBC #### [facility] [address] ECG 12 lead ECGon 12-20-2023 ECG 12 lead ECG [facility] [place] [address] [place] [address] Electrocardiograph Report Signed Patient: Darin Thacker MR#: [id number] [birth year] : 1950 Acct:[id number] Age/Sex: 73 / M ADM Date: 12/20/23 Loc: Room: Type: [facility] Attending Dr: Ranulfo Bagley DO Ordering Provider: [...] When compared with ECG of 14-MAR-2021 10:14, [place] interval has increased Vent. rate has decreased BY 43 BPM Nonspecific T wave abnormality now evident in Lateral leads Confirmed by Laurent Livingston ([id number]) on 12/20/2023 7:43:38 PM Referred By: YUDI Electronically Signed By:Laurent Livingston Transcribed By: MUS Signed By Laurent Livingston MD 12/20/231942 Normal [facility] Scan and CBCon 12-20-2023 Basophils (Bld) [#/Vol] 0.0 10*3/uL Normal 0.0-0.2 [facility] Comment on above: Result Comment: PERF ORMED BY: [place] [id number] PATHOLOGIST COMPUTED TOMOGRAPHY SCANNER OPERATOR ANGELES PAUL M.D. Performed By: #### B MP, SCAN CBC #### [facility] [address] [place] [address] Basophils/100 WBC (Bld) 0.6 % Normal . [facility] Comment on above: Performed By: #### B MP, SCAN CBC #### [facility] [address] Eosinophils (Bld) [#/Vol] 0.1 10*3/uL Normal 0.0-0.45 [facility] Comment on above: Performed By: #### B MP, SCAN CBC #### [facility] [address] Eosinophils/100 WBC (Bld) 1.4 % Normal . [facility] Comment on above: Performed By: #### B MP, SCAN CBC #### [facility] [address] Erythrocyte distribution width (RBC) [Ratio] 14.5 % Normal 12.0-14.8 [facility] Comment on above: Performed By: #### B MP, SCAN CBC #### [address] Hematocrit (Bld) [Volume fraction] 53.7 % High 38.8-50.0 [facility] Comment on above: Performed By: #### B MP, SCAN CBC #### [address] Hemoglobin (Bld) [Mass/Vol] 18.3 g/dL High 13.0-17.0 [facility] Comment on above: Performed By: #### B MP, SCAN CBC #### [address] Lymphocytes (Bld) [#/Vol] 1.6 10*3/uL Normal 1.00-4.8 [facility] Comment on above: Performed By: #### B MP, SCAN CBC #### [place] [address] [place] Lymphocytes/100 WBC (Bld) 22.2 % Normal . [facility] Comment on above: Performed By: #### B MP, SCAN CBC #### [facility] [address] [place] [address] MCH (RBC) [Entitic mass] 31.7 pg Normal 27.5-35.2 [facility] Comment on above: Performed By: #### B MP, SCAN CBC #### [place] [address] MCV (RBC) [Entitic vol] 92.8 fL Normal 83.5-101 [facility] Comment on above: Performed By: #### B MP, SCAN CBC #### [address] Mean Corpuscular HGB Conc 34.1 g/dL Normal 32.5-35.6 [facility] Comment on above: Performed By: #### B MP, SCAN CBC #### [address] Monocytes (Bld) [#/Vol] 0.7 10*3/uL Normal 0.0-0.8 [facility] Comment on above: Performed By: #### B MP, SCAN CBC #### [address] Monocytes/100 WBC (Bld) 9.8 % Normal . [facility] Comment on above: Performed By: #### B MP, SCAN CBC #### [address] Neutrophils (Bld) [#/Vol] 4.8 10*3/uL Normal 1.8-7.7 [facility] Comment on above: Performed By: #### B MP, SCAN CBC #### [address] Neutrophils/100 WBC (Bld) 66.0 % Normal . [facility] Comment on above: Performed By: #### B MP, SCAN CBC #### [address] NRBC% 0.4 /100{WBC} Normal 0-0.5 [facility] Comment on above: Performed By: #### B MP, SCAN CBC #### [address] Platelet Estimate Normal Normal Normal [facility] Comment on above: Performed By: #### B MP, SCAN CBC #### [address] Platelet mean volume (Bld) [Entitic vol] 8.1 fL Normal 6.6-10.1 [facility] Comment on above: Performed By: #### B MP, SCAN CBC #### [facility] [address] [place] [address] Platelet Morphology Normal Normal Normal [facility] Comment on above: Result Comment: PERF ORMED BY: [place] [address] PATHOLOGIST COMPUTED TOMOGRAPHY SCANNER OPERATOR ANGELES PAUL M.D. Performed By: #### B MP, SCAN CBC #### [facility] [address] [place] [address] [place] Platelets (Bld) [#/Vol] 206 10*3/uL Normal 150-450 [facility] Comment on above: Performed By: #### B MP, SCAN CBC #### [facility] [address] [place] [address] RBC (Bld) [#/Vol] 5.78 10*6/uL High 3.90-5.[address] [facility] Comment on above: Performed By: #### B MP, SCAN CBC #### [facility] [address] [place] [address] RBC morphology finding Nom (Bld) Normal Normal Normal [facility] Comment on above: Performed By: #### B MP, SCAN CBC #### [facility] [address] [place] [address] [place] WBC (Bld) [#/Vol] 7.3 10*3/uL Normal 4.1-10.[address] [facility] Comment on above: Performed By: #### B MP, SCAN CBC #### [facility] [address] [place] [address] [place] XR elbow BI 2Von 10-24-2023 XR elbow BI 2V [facility] [place] [address] [place] [address] XRay Report Signed Patient: Darin Thacker MR#: [id number] [birth year] : 1950 Acct:[id number] Age/Sex: 73 / M ADM Date: 10/24/23 [...] Gordon Jr., D.O.10/24/2023 2:29 PM Dictation Location: [place] [address] Transcribed By: [facility] 10/24/23 1429 Dictated By: Dustin Gordon Jr, DO 10/24/23 1428 Signed By: 10/24/23 1429 [facility] ABDOMEN WO/W CONon 2022 CT ABDOMEN [...] Date: 2023-01-31 16:31 Normal [facility] CBC AUTO DIFFon 01-27-2023 BASO # 0.0 103/ul Normal 0.0-0.1 [facility] Comment on above: Performed By: #### B MP #### [facility] [address] [address] [address] Lucho De León Basophils/100 WBC (Bld) 0.6 % Normal 0.2-2.0 [facility] Comment on above: Performed By: #### B MP #### [facility] [address] [place] [address] [address] Lucho De León EO # 0.1 103/ul Normal 0.0-0.7 [facility] Comment on above: Performed By: #### B MP #### [facility] [address] [place] [address] [address] Lucho De León Eosinophils/100 WBC (Bld) 1.4 % Normal 0.9-7.0 [facility] Comment on above: Performed By: #### B MP #### [facility] [address] [address] [address] Lucho De León Erythrocyte distribution width (RBC) [Ratio] 13.7 % Normal 11.0-15.0 [facility] Comment on above: Performed By: #### B MP #### [facility] [address] [address] [address] Lucho De León Hematocrit (Bld) [Volume fraction] 51.2 % Normal 42.0-54.0 [facility] Comment on above: Performed By: #### B MP #### [facility] [address] [address] [address] Lucho De León Hemoglobin (Bld) [Mass/Vol] 17.5 g/dL Normal 14.0-18.0 [facility] Comment on above: Performed By: #### B MP #### [facility] [address] [place] [address] Dr. Lucho De León IG # 0.02 10e3/ul Normal 0.00-0.03 [facility] Comment on above: Performed By: #### B MP #### [facility] [address] [place] [address] Dr. Lucho De León IG % 0.3 % Normal 0.0-0.5 [facility] Comment on above: Performed By: #### B MP #### [facility] [address] [place] [address] Dr. Lucho De León LYMPH # 1.5 103/ul Normal 1.2-3.8 [facility] Comment on above: Performed By: #### B MP #### [facility] [address] [place] [address] Dr. Lucho De León Lymphocytes/100 WBC (Bld) 22.1 % Normal 20.5-60.0 [facility] Comment on above: Performed By: #### B MP #### [facility] [address] [place] [address] Dr. Lucho De León MANUAL DIFF REQ NO Normal [facility] Comment on above: Performed By: #### B MP #### [facility] [address] [place] [address] Dr. Lucho De León MCH (RBC) [Entitic mass] 31.0 pg Normal 25.9-34.0 [facility] Comment on above: Performed By: #### B MP #### [facility] [address] [place] [address] Dr. Lucho De León MCHC (RBC) [Mass/Vol] 34.2 g/dL Normal 29.9-35.2 [facility] Comment on above: Performed By: #### B MP #### [facility] [address] [place] [address] Dr. Lucho De León MCV (RBC) [Entitic vol] 90.6 fL Normal 80.0-94.0 [facility] Comment on above: Performed By: #### B MP #### [facility] [address] [address] [address] Lucho De León MONO # 0.7 103/ul Normal 0.3-0.8 [facility] Comment on above: Performed By: #### B MP #### [facility] [address] [place] [address] Dr. Lucho De León Monocytes/100 WBC (Bld) 10.7 % Normal 1.7-12.0 [facility] Comment on above: Performed By: #### B MP #### [facility] [address] [place] [address] Dr. Lucho De León NEUT # 4.3 103/ul Normal 1.4-6.5 [facility] Comment on above: Performed By: #### B MP #### [facility] [address] [place] [address] Dr. Lucho De León Neutrophils/100 WBC (Bld) 64.9 % Normal 43.0-75.0 [facility] Comment on above: Performed By: #### B MP #### [facility] [address] [place] [address] Dr. Lucho De León Platelet mean volume (Bld) [Entitic vol] 9.1 fL Critically low 9.5-13.5 [facility] Comment on above: Performed By: #### B MP #### [facility] [address] [place] [address] Dr. Lucho De León PLT 220 103/ul Normal 150-450 [facility] Comment on above: Performed By: #### B MP #### [facility] [address] [address] [address] Lucho De León RBC 5.65 106/ul Normal 4.70-6.10 [facility] Comment on above: Performed By: #### B MP #### [facility] [address] [place] [address] Dr. Lucho De León WBC 6.6 103/ul Normal 4.0-11.0 [facility] Comment on above: Performed By: #### B MP #### [facility] [address] [place] [address] Dr. Lucho De León GLYCOHEMOGLOBIN A1Con 2022 ADA RECOMMENDATION SEE BELOW Normal [facility] Comment on above: Result Comment: ADA RECOMMENDED LIMIT 4.0 - 6.0 ADA THERAPEUTIC TARGET < 7.0 ACTION SUGGESTED > 7.0 Performed By: #### C VDTB #### [facility] [address] [place] [address] Dr[address] Lucho De León Glucose [Mass/Vol] 209 mg/dL Normal [facility] Comment on above: Performed By: #### C VDTBH #### [facility] [address] [place] [address] Dr. Lucho De León HbA1c (Bld) [Mass fraction] 8.9 % Critically high 4.5-6.2 [facility] Comment on above: Performed By: #### C ALYSSA #### [facility] [address] [place] [address] Dr. Lucho De León IRONon 01-27-2023 Iron [Mass/Vol] 59.0 ug/dL Critically low 65.0-175.0 [facility] Comment on above: Performed By: #### B MP #### [facility] [address] [place] [address] Dr. Lucho De León LIPID PROFILEon 01-27-2023 CHOL-HDL RATIO NORM SEE BELOW Normal The [facility] Comment on above: Result Comment: 3.3 - 4.4 LOW RISK 4.4 - 7.1 AVERAGE RISK 7.1 - 11.0 MODERATE RISK >11.0 HIGH RISK Performed By: #### B MP #### [facility] [address] [place] [address] Dr. Lucho De León Cholesterol [Mass/Vol] 177 mg/dL Normal <=200 [facility] Comment on above: Performed By: #### B MP #### [facility] [address] [place] [address] Dr. Lucho De León Cholesterol in HDL [Mass/Vol] 50 mg/dL Normal 40-60 [facility] Comment on above: Performed By: #### B MP #### [facility] [address] [place] [address] Dr. Lucho De León Cholesterol in LDL [Mass/Vol] 89.2 mg/dL Normal [facility] Comment on above: Performed By: #### B MP #### [facility] [address] [address] [address] Lucho De León Cholesterol.total/Cho lesterol in HDL [Mass ratio] 3.5 {ratio} Normal [facility] Comment on above: Performed By: #### B MP #### [facility] [address] [place] [address] [address] Lucho De León HDL NORMAL > or = 60 mg/dl - LOW CARDIOVASCULAR RISK <40 mg/dl - HIGH CARDIOVASCULAR RISK Normal [facility] Comment on above: Performed By: #### B MP #### [facility] [address] [place] [address] Dr. Lucho De León LDL CALC NORMAL SEE BELOW Normal [facility] Comment on above: Result Comment: <100 mg/dl OPTIMAL 100 - 129 mg/dl NEAR OR ABOVE OPTIMAL 130 - 159 mg/dl BORDERLINE HIGH 160 - 189 mg/dl HIGH >190 mg/dl VERY HIGH Performed By: #### B MP #### [facility] [address] [place] [address] Dr. Lucho De León Triglyceride [Mass/Vol] 189 mg/dL Critically high <=150 [facility] Comment on above: Performed By: #### B MP #### [facility] [address] [place] [address] Dr. Lucho De León VLDL CALC 37.8 mg/dL Normal [facility] Comment on above: Performed By: #### B MP #### [facility] [address] [place] [address] Dr. Lucho De León MICROALBUMIN, RAND URon 04- mALB 7.6 mg/L Normal <=30.0 [facility] Comment on above: Performed By: #### M ALBR #### [facility] [address] [place] [address] Dr. Lucoh De León PROF 14(COMP METB)on 023 Albumin [Mass/Vol] 3.6 g/dL Normal 3.4-5.0 [facility] Comment on above: Performed By: #### B MP #### [facility] [address] [place] [address] Dr. Lucho De León Albumin/Globulin [Mass ratio] 0.9 {ratio} Normal [facility] Comment on above: Performed By: #### B MP #### [facility] [address] [place] [address] Dr. Lucho De León ALP [Catalytic activity/Vol] 95 U/L Normal 46-116 [facility] Comment on above: Performed By: #### B MP #### [facility] [address] [place] [address] Dr. Lucho De León ALT [Catalytic activity/Vol] 26 U/L Normal 16-63 [facility] Comment on above: Performed By: #### B MP #### [facility] [address] [place] [address] Dr. Lucho De León Anion gap [Moles/Vol] 16.7 mmol/L Normal [facility] Comment on above: Performed By: #### B MP #### [facility] [address] [place] [address] Dr. Lucho De León AST [Catalytic activity/Vol] 13 U/L Critically low 15-37 [facility] Comment on above: Performed By: #### B MP #### [facility] [address] [place] [address] Dr. Lucho De León Bilirubin [Mass/Vol] 0.3 mg/dL Normal 0.2-1.0 [facility] Comment on above: Performed By: #### B MP #### [facility] [address] [place] [address] Dr. Lucho De León Calcium [Mass/Vol] 9.7 mg/dL Normal 8.5-10.1 [facility] Comment on above: Performed By: #### B MP #### [facility] [address] [place] [address] Dr. Lucho De León Chloride [Moles/Vol] 103 mmol/L Normal 98-107 [facility] Comment on above: Performed By: #### B MP #### [facility] [address] [place] [address] Dr. Lucho De León CO2 [Moles/Vol] 24.9 mmol/L Normal 21.0-32.0 [facility] Comment on above: Performed By: #### B MP #### [facility] [address] [address] [address] Lucho De León Creatinine [Mass/Vol] 0.81 mg/dL Normal 0.70-1.30 [facility] Comment on above: Performed By: #### B MP #### [facility] [address] [place] [address] [address] Lucho De León EGFR-AF HAITIAN >60 Normal >=60 [facility] Comment on above: Performed By: #### B MP #### [facility] [address] [place] [address] Dr. Lucho De León EGFR-NON AF HAITIAN >60 Normal >=60 [facility] Comment on above: Performed By: #### B MP #### [facility] [address] [place] [address] Dr. Lucho De León Globulin (S) [Mass/Vol] 4.2 g/dL Normal [facility] Comment on above: Performed By: #### B MP #### [facility] [address] [place] [address] Dr. Lucho De León Glucose [Mass/Vol] 156 mg/dL Critically high 74-106 [facility] Comment on above: Performed By: #### B MP #### [facility] [address] [place] [address] Dr. Lucho De León Potassium [Moles/Vol] 4.6 mmol/L Normal 3.5-5.1 [facility] Comment on above: Performed By: #### B MP #### [facility] [address] [address] [address] Lucho De León Protein [Mass/Vol] 7.8 g/dL Normal 6.4-8.2 [facility] Comment on above: Performed By: #### B MP #### [facility] [address] [place] [address] Dr. Lucho De León Sodium [Moles/Vol] 140 mmol/L Normal 136-145 [facility] Comment on above: Performed By: #### B MP #### [facility] [address] [place] [address] Dr. Lucho De León Urea nitrogen [Mass/Vol] 15.0 mg/dL Normal 7.0-18.0 [facility] Comment on above: Performed By: #### B MP #### [facility] [address] [place] [address] Dr. Lucho De León Urea nitrogen/Creatinine [Mass ratio] 18.5 mg/mg Normal [facility] Comment on above: Performed By: #### B MP #### [facility] [address] [place] [address] Dr. Lucho De León UA RANDOM W/MICROSCOPICon BACTERIA NONE SEEN Normal NONE SEEN [facility] Comment on above: Performed By: #### C BC #### [facility] [address] [place] [address] Dr. Lucho De León Bilirubin Ql (U) Negative Normal NEGATIVE [facility] Comment on above: Performed By: #### C BC #### [facility] [address] [place] [address] Dr. Lucho De León CAST NONE SEEN Normal NONE SEEN [facility] Comment on above: Performed By: #### C BC #### [facility] [address] [place] [address] Dr. Lucho De León Clarity (U) CLEAR Normal CLEAR [facility] Comment on above: Performed By: #### C BC #### [facility] [address] [place] [address] Dr. Lucho De León Color (U) LT. YELLOW Normal YELLOW [facility] Comment on above: Performed By: #### C BC #### [facility] [address] [place] [address] Dr. Lucho De León Crystals LM Nom (Urine sed) NONE SEEN Normal NONE SEEN [facility] Comment on above: Performed By: #### C BC #### [facility] [address] [place] [address] Dr. Lucho De León Epithelial cells LM Ql (Urine sed) NONE SEEN Normal NONE SEEN /RARE [facility] Comment on above: Performed By: #### C BC #### [facility] [address] [address] [address] Lucho De León Glucose Ql (U) 1000 mg/dl Abnormal NEGATIVE [facility] Comment on above: Performed By: #### C BC #### [facility] [address] [address] [address] Lucho De León Hemoglobin Ql (U) Negative Normal NEGATIVE [facility] Comment on above: Performed By: #### C BC #### [facility] [address] [address] [address] Lucho De León Ketones Ql (U) Negative Normal NEGATIVE [facility] Comment on above: Performed By: #### C BC #### [facility] [address] [place] [address] Dr. Lucho De León LEUKOCYTES Negative Normal NEGATIVE [facility] Comment on above: Performed By: #### C BC #### [facility] [address] [place] [address] Dr. Lucho De León MUCOUS NONE SEEN Normal NONE SEEN [facility] Comment on above: Performed By: #### C BC #### [facility] [address] [place] [address] Dr. Lucho De León Nitrite Ql (U) Negative Normal NEGATIVE [facility] Comment on above: Performed By: #### C BC #### [facility] [address] [place] [address] Dr. Lucho De León pH (U) 5.5 [pH] Normal 5-9 [facility] Comment on above: Performed By: #### C BC #### [facility] [address] [place] [address] Dr. Lucho De León RBC NONE SEEN Abnormal 0-2 [facility] Comment on above: Performed By: #### C BC #### [facility] [address] [place] [address] Dr. Lucho De León SPEC GRAVITY 1.020 Normal 1.005-<=1.025 [facility] Comment on above: Performed By: #### C BC #### [facility] [address] [address] [address] Lucho De León UA PROTEIN Negative Normal NEGATIVE/ TRACE [facility] Comment on above: Performed By: #### C BC #### [facility] [address] [address] [address] Lucho De León Urobilinogen Qn (U) 0.2 {Danny'U}/dL Normal 0.2 - 1. 0 [facility] Comment on above: Performed By: #### C BC #### [facility] [address] [place] [address] Dr. Lucho De León WBC NONE SEEN Normal NONE SEEN [facility] Comment on above: Performed By: #### C BC #### [facility] [address] [place] [address] Dr. Lucho De León US CAROTID ART [...] Date: 2022-12-20 16:32 Normal [facility] CBC AUTO DIFFon 11-18-2022 BASO # 0.1 103/ul Normal 0.0-0.1 [facility] Comment on above: Performed By: #### H GBHCT #### [facility] [address] [address] [address] Lucho De León Basophils/100 WBC (Bld) 0.6 % Normal 0.2-2.0 [facility] Comment on above: Performed By: #### H GBHCT #### [facility] [address] [address] [address] Lucho De León EO # 0.1 103/ul Normal 0.0-0.7 [facility] Comment on above: Performed By: #### H GBHCT #### [facility] [address] [address] [address] Lucho De León Eosinophils/100 WBC (Bld) 1.1 % Normal 0.9-7.0 [facility] Comment on above: Performed By: #### H GBHCT #### [facility] [address] [place] [address] Dr. Lucho De León Erythrocyte distribution width (RBC) [Ratio] 13.6 % Normal 11.0-15.0 [facility] Comment on above: Performed By: #### H GBHCT #### [facility] [address] [place] [address] Dr. Lucho De León Hematocrit (Bld) [Volume fraction] 56.1 % Critically high 42.0-54.0 [facility] Comment on above: Performed By: #### H GBHCT #### [facility] [address] [place] [address] Dr. Lucho De León Hemoglobin (Bld) [Mass/Vol] 17.8 g/dL Normal 14.0-18.0 [facility] Comment on above: Performed By: #### H GBHCT #### [facility] [address] [place] [address] Dr. Lucho De León IG # 0.02 10e3/ul Normal 0.00-0.03 [facility] Comment on above: Performed By: #### H GBHCT #### [facility] [address] [place] [address] Dr. Lucho De León IG % 0.2 % Normal 0.0-0.5 [facility] Comment on above: Performed By: #### H GBHCT #### [facility] [address] [place] [address] Dr. Lucho De León LYMPH # 1.6 103/ul Normal 1.2-3.8 [facility] Comment on above: Performed By: #### H GBHCT #### [facility] [address] [place] [address] Dr. Lucho De León Lymphocytes/100 WBC (Bld) 19.3 % Critically low 20.5-60.0 [facility] Comment on above: Performed By: #### H GBHCT #### [facility] [address] [address] [address] Lucho De León MANUAL DIFF REQ NO Normal [facility] Comment on above: Performed By: #### H GBHCT #### [facility] [address] [address] [address] Lucho De León MCH (RBC) [Entitic mass] 31.0 pg Normal 25.9-34.0 [facility] Comment on above: Performed By: #### H GBHCT #### [facility] [address] [address] [address] Lucho De León MCHC (RBC) [Mass/Vol] 31.7 g/dL Normal 29.9-35.2 [facility] Comment on above: Performed By: #### H GBHCT #### [facility] [address] [place] [address] Dr. Lucho De León MCV (RBC) [Entitic vol] 97.6 fL Critically high 80.0-94.0 [facility] Comment on above: Performed By: #### H GBHCT #### [facility] [address] [address] [address] Lucho De León MONO # 0.7 103/ul Normal 0.3-0.8 [facility] Comment on above: Performed By: #### H GBHCT #### [facility] [address] [address] [address] Lucho De León Monocytes/100 WBC (Bld) 8.1 % Normal 1.7-12.0 [facility] Comment on above: Performed By: #### H GBHCT #### [facility] [address] [address] [address] Lucho De León NEUT # 5.7 103/ul Normal 1.4-6.5 [facility] Comment on above: Performed By: #### H GBHCT #### [facility] [address] [place] [address] Dr. Lucho De León Neutrophils/100 WBC (Bld) 70.7 % Normal 43.0-75.0 [facility] Comment on above: Performed By: #### H GBHCT #### [facility] [address] [address] [address] Lucho De León Platelet mean volume (Bld) [Entitic vol] 10.6 fL Normal 9.5-13.5 [facility] Comment on above: Performed By: #### H GBHCT #### [facility] [address] [address] [address] Lucho De León PLT 228 103/ul Normal 150-450 [facility] Comment on above: Performed By: #### H GBHCT #### [facility] [address] [address] [address] Lucho De León RBC 5.75 106/ul Normal 4.70-6.10 [facility] Comment on above: Performed By: #### H GBHCT #### [facility] [address] [place] [address] Dr. Lucho De León WBC 8.1 103/ul Normal 4.0-11.0 [facility] Comment on above: Performed By: #### H GBHCT #### [facility] [address] [address] [address] Lucho De León PROF CHEM 8 (BAS METB)on Anion gap [Moles/Vol] 11.1 mmol/L Normal [facility] Comment on above: Performed By: #### B MP #### [facility] [address] [place] [address] Dr. Lucho De León Calcium [Mass/Vol] 9.3 mg/dL Normal 8.5-10.1 [facility] Comment on above: Performed By: #### B MP #### [facility] [address] [address] [address] Lucho De León Chloride [Moles/Vol] 102 mmol/L Normal 98-107 [facility] Comment on above: Performed By: #### B MP #### [facility] [address] [address] [address] Lucho De León CO2 [Moles/Vol] 28.3 mmol/L Normal 21.0-32.0 [facility] Comment on above: Performed By: #### B MP #### [facility] [address] [address] [address] Lucho De León Creatinine [Mass/Vol] 0.59 mg/dL Critically low 0.70-1.30 [facility] Comment on above: Performed By: #### B MP #### [facility] [address] [address] [address] Lucho De León EGFR-AF HAITIAN >60 Normal >=60 [facility] Comment on above: Performed By: #### B MP #### [facility] [address] [address] [address] Lucho De León EGFR-NON AF HAITIAN >60 Normal >=60 [facility] Comment on above: Performed By: #### B MP #### [facility] [address] [place] [address] Dr. Lucho De León Glucose [Mass/Vol] 171 mg/dL Critically high 74-106 T [facility] Comment on above: Performed By: #### B MP #### [facility] [address] [address] [address] Lucho De León Potassium [Moles/Vol] 4.4 mmol/L Normal 3.5-5.1 [facility] Comment on above: Performed By: #### B MP #### [facility] [address] [place] [address] Dr. Lucho De León Sodium [Moles/Vol] 137 mmol/L Normal 136-145 [facility] Comment on above: Performed By: #### B MP #### [facility] [address] [address] [address] Lucho De León Urea nitrogen [Mass/Vol] 12.0 mg/dL Normal 7.0-18.0 [facility] Comment on above: Performed By: #### B MP #### [facility] [address] [address] [address] Lucho De León Urea nitrogen/Creatinine [Mass ratio] 20.3 mg/mg Normal [facility] Comment on above: Performed By: #### B MP #### [facility] [address] [address] [address] Lucho De León General Surgery Office/Clini [...] JULIA Mays Only if needed [address] [place] [address]- Additional Instructions: Problem List/Past Medical History Ongoing [...] malignant neoplasm of female breast: Sister. [facility] Comment on above: Result Comment: Elec tronically Signed By: MANJIT WILKINS, Bernadine Calle\Date and Time Signed: 10/25/22 16:08 EST Pathology Noteon 10-19-2022 Pathology Note [id number] #1.00CD:127 Normal [facility] Operative Reporton 2 Operative Report [id number] #1.00CD:127 Normal [facility] GLYCOHEMOGLOBIN A1Con 2021 ADA RECOMMENDATION SEE BELOW Normal [facility] Comment on above: Result Comment: ADA RECOMMENDED LIMIT 4.0 - 6.0 ADA THERAPEUTIC TARGET < 7.0 ACTION SUGGESTED > 7.0 Performed By: #### C VDTBH #### [facility] [address] [place] [address] Dr. Lucho De León Glucose [Mass/Vol] 197 mg/dL Normal [facility] Comment on above: Performed By: #### C VDTBH #### [facility] [address] [place] [address] Dr. Lucho De León HbA1c (Bld) [Mass fraction] 8.5 % Critically high 4.5-6.2 [facility] Comment on above: Performed By: #### C VDTBH #### [facility] [address] [place] [address] Dr. Lucho De León PROF CHEM 8 (BAS METB)on Anion gap [Moles/Vol] 12.0 mmol/L Normal [facility] Comment on above: Performed By: #### B MP #### [facility] [address] [place] [address] Dr. Lucho De León Calcium [Mass/Vol] 9.0 mg/dL Normal 8.5-10.1 [facility] Comment on above: Performed By: #### B MP #### [facility] [address] [address] [address] Lucho De León Chloride [Moles/Vol] 100 mmol/L Normal 98-107 [facility] Comment on above: Performed By: #### B MP #### [facility] [address] [place] [address] Dr. Lucho De León CO2 [Moles/Vol] 24.6 mmol/L Normal 21.0-32.0 [facility] Comment on above: Performed By: #### B MP #### [facility] [address] [place] [address] Dr. Lucho De León Creatinine [Mass/Vol] 0.61 mg/dL Critically low 0.70-1.30 [facility] Comment on above: Performed By: #### B MP #### [facility] [address] [place] [address] Dr. Lucho De León EGFR-AF HAITIAN >60 Normal >=60 [facility] Comment on above: Performed By: #### B MP #### [facility] [address] [place] [address] Dr. Lucho De León EGFR-NON AF HAITIAN >60 Normal >=60 [facility] Comment on above: Performed By: #### B MP #### [facility] [address] [place] [address] Dr. Lucho De León Glucose [Mass/Vol] 186 mg/dL Critically high 74-106 T [facility] Comment on above: Performed By: #### B MP #### [facility] [address] [address] [address] Lucho De León Potassium [Moles/Vol] 4.6 mmol/L Normal 3.5-5.1 [facility] Comment on above: Performed By: #### B MP #### [facility] [address] [place] [address] Dr. Lucho De León Sodium [Moles/Vol] 132 mmol/L Critically low 136-145 [facility] Comment on above: Performed By: #### B MP #### [facility] [address] [place] [address] Dr. Lucho De León Urea nitrogen [Mass/Vol] 12.0 mg/dL Normal 7.0-18.0 [facility] Comment on above: Performed By: #### B MP #### [facility] [address] [place] [address] Dr. Lucho De León Urea nitrogen/Creatinine [Mass ratio] 19.7 mg/mg Normal [facility] Comment on above: Performed By: #### B MP #### [facility] [address] [id number] Lucho De León XR CSPINE 2_3 [...] by: BHAVANA MOREAU Date: 2022-09-22 12:09 Normal [facility] Consent for Procedure/Surger yon 08-31-2022 Consent for Procedure/Surgery [id number] #1.00CD:127 [facility] Ambulatory Visit Summaryon 1 10-30-2021 [...] allergies Tobacco user Vitamin B12 deficiency Normal [facility] Physician Referralon 022 Physician Referral [id number] #[id number] [facility] CBC AUTO DIFFon 06-14-2022 BASO # 0.0 103/ul Normal 0.0-0.1 [facility] Comment on above: Performed By: #### C VDTBH #### [facility] [address] [place] [address] Dr. Lucho De León Basophils/100 WBC (Bld) 0.4 % Normal 0.2-2.0 [facility] Comment on above: Performed By: #### C VDTBH #### [facility] [address] [address] [address] Lucho De León EO # 0.1 103/ul Normal 0.0-0.7 [facility] Comment on above: Performed By: #### C VDTBH #### [facility] [address] [address] [address] Lucho De León Eosinophils/100 WBC (Bld) 1.6 % Normal 0.9-7.0 [facility] Comment on above: Performed By: #### C VDTBH #### [facility] [address] [place] [address] Dr. Lucho De León Erythrocyte distribution width (RBC) [Ratio] 16.1 % Critically high 11.0-15.0 [facility] Comment on above: Performed By: #### C VDTBH #### [facility] [address] [place] [address] Dr. Lucho De León Hematocrit (Bld) [Volume fraction] 51.3 % Normal 42.0-54.0 [facility] Comment on above: Performed By: #### C VDTBH #### [facility] [address] [place] [address] Dr. Lucho De León Hemoglobin (Bld) [Mass/Vol] 16.9 g/dL Normal 14.0-18.0 [facility] Comment on above: Performed By: #### C VDTBH #### [facility] [address] [place] [address] Dr. Lucho De León IG # 0.02 10e3/ul Normal 0.00-0.03 [facility] Comment on above: Performed By: #### C VDTBH #### [facility] [address] [place] [address] Dr. Lucho De León IG % 0.3 % Normal 0.0-0.5 [facility] Comment on above: Performed By: #### C VDTBH #### [facility] [address] [place] [address] Dr. Lucho De León LYMPH # 1.6 103/ul Normal 1.2-3.8 [facility] Comment on above: Performed By: #### C VDTBH #### [facility] [address] [place] [address] Dr. Lucho De León Lymphocytes/100 WBC (Bld) 21.6 % Normal 20.5-60.0 [facility] Comment on above: Performed By: #### C VDTBH #### [facility] [address] [place] [address] Dr. Lucho De León MANUAL DIFF REQ NO Normal [facility] Comment on above: Performed By: #### C VDTBH #### [facility] [address] [place] [address] Dr. Lucho De León MCH (RBC) [Entitic mass] 29.3 pg Normal 25.9-34.0 [facility] Comment on above: Performed By: #### C VDTBH #### [facility] [address] [place] [address] Dr. Lucho De León MCHC (RBC) [Mass/Vol] 32.9 g/dL Normal 29.9-35.2 [facility] Comment on above: Performed By: #### C VDTBH #### [facility] [address] [place] [address] Dr. Lucho De León MCV (RBC) [Entitic vol] 89.1 fL Normal 80.0-94.0 [facility] Comment on above: Performed By: #### C VDTBH #### [facility] [address] [place] [address] Dr. Lucho De León MONO # 0.6 103/ul Normal 0.3-0.8 [facility] Comment on above: Performed By: #### C VDTBH #### [facility] [address] [place] [address] Dr. Lucho De León Monocytes/100 WBC (Bld) 8.6 % Normal 1.7-12.0 [facility] Comment on above: Performed By: #### C VDTBH #### [facility] [address] [place] [address] Dr. Lucho De León NEUT # 5.0 103/ul Normal 1.4-6.5 [facility] Comment on above: Performed By: #### C VDTBH #### [facility] [address] [place] [address] Dr. Lucho De León Neutrophils/100 WBC (Bld) 67.5 % Normal 43.0-75.0 [facility] Comment on above: Performed By: #### C VDTBH #### [facility] [address] [place] [address] Dr. Lucho De León Platelet mean volume (Bld) [Entitic vol] 10.3 fL Normal 9.5-13.5 [facility] Comment on above: Performed By: #### C VDTBH #### [facility] [address] [address] [address] Lucho De León PLT 218 103/ul Normal 150-450 [facility] Comment on above: Performed By: #### C VDTBH #### [facility] [address] [address] [address] Lucho De León RBC 5.76 106/ul Normal 4.70-6.10 [facility] Comment on above: Performed By: #### C VDTBH #### [facility] [address] [address] [address] Lucho De León WBC 7.5 103/ul Normal 4.0-11.0 [facility] Comment on above: Performed By: #### C VDTBH #### [facility] [address] [place] [address] Dr. Lucho De León GLYCOHEMOGLOBIN A1Con 2021 ADA RECOMMENDATION SEE BELOW Normal [facility] Comment on above: Result Comment: ADA RECOMMENDED LIMIT 4.0 - 6.0 ADA THERAPEUTIC TARGET < 7.0 ACTION SUGGESTED > 7.0 Performed By: #### A 1C #### [facility] [address] [place] [address] Dr. Lucho De León Glucose [Mass/Vol] 177 mg/dL Normal [facility] Comment on above: Performed By: #### A 1C #### [facility] [address] [place] [address] Dr. Lucho De León HbA1c (Bld) [Mass fraction] 7.8 % Critically high 4.5-6.2 [facility] Comment on above: Performed By: #### A 1C #### [facility] [address] [place] [address] Dr. Lucho De León IRONon 06-14-2022 Iron [Mass/Vol] 50.0 ug/dL Critically low 65.0-175.0 [facility] Comment on above: Performed By: #### C BC #### [facility] [address] [place] [address] Dr. Lucho De León PROF 14(COMP METB)on 022 Albumin [Mass/Vol] 3.8 g/dL Normal 3.4-5.0 [facility] Comment on above: Performed By: #### H GBHCT #### [facility] [address] [place] [address] Dr. Lucho De León Albumin/Globulin [Mass ratio] 0.9 {ratio} Normal [facility] Comment on above: Performed By: #### H GBHCT #### [facility] [address] [address] [address] Lucho De León ALP [Catalytic activity/Vol] 95 U/L Normal 46-116 [facility] Comment on above: Performed By: #### H GBHCT #### [facility] [address] [place] [address] Dr. Lucho De León ALT [Catalytic activity/Vol] 19 U/L Normal 16-63 [facility] Comment on above: Performed By: #### H GBHCT #### [facility] [address] [address] [address] Lucho De León Anion gap [Moles/Vol] 12.2 mmol/L Normal [facility] Comment on above: Performed By: #### H GBHCT #### [facility] [address] [place] [address] Dr. Lucho De León AST [Catalytic activity/Vol] 11 U/L Critically low 15-37 [facility] Comment on above: Performed By: #### H GBHCT #### [facility] [address] [address] [address] Lucho De León Bilirubin [Mass/Vol] 0.3 mg/dL Normal 0.2-1.0 [facility] Comment on above: Performed By: #### H GBHCT #### [facility] [address] [address] [address] Lucho De León Calcium [Mass/Vol] 9.6 mg/dL Normal 8.5-10.1 [facility] Comment on above: Performed By: #### H GBHCT #### [facility] [address] [place] [address] Dr. Lucho De León Chloride [Moles/Vol] 103 mmol/L Normal 98-107 [facility] Comment on above: Performed By: #### H GBHCT #### [facility] [address] [address] [address] Lucho De León CO2 [Moles/Vol] 29.4 mmol/L Normal 21.0-32.0 [facility] Comment on above: Performed By: #### H GBHCT #### [facility] [address] [address] [address] Lucho De León Creatinine [Mass/Vol] 0.80 mg/dL Normal 0.70-1.30 [facility] Comment on above: Performed By: #### H GBHCT #### [facility] [address] [place] [address] Dr. Lucho De León EGFR-AF HAITIAN >60 Normal >=60 [facility] Comment on above: Performed By: #### H GBHCT #### [facility] [address] [place] [address] Dr. Lucho De León EGFR-NON AF HAITIAN >60 Normal >=60 [facility] Comment on above: Performed By: #### H GBHCT #### [facility] [address] [place] [address] Dr. Lucho De León Globulin (S) [Mass/Vol] 4.0 g/dL Normal [facility] Comment on above: Performed By: #### H GBHCT #### [facility] [address] [address] [address] Lucho De León Glucose [Mass/Vol] 202 mg/dL Critically high 74-106 [facility] Comment on above: Performed By: #### H GBHCT #### [facility] [address] [place] [address] Dr. Lucho De León Potassium [Moles/Vol] 4.6 mmol/L Normal 3.5-5.1 [facility] Comment on above: Performed By: #### H GBHCT #### [facility] [address] [place] [address] Dr. Lucho De León Protein [Mass/Vol] 7.8 g/dL Normal 6.4-8.2 [facility] Comment on above: Performed By: #### H GBHCT #### [facility] [address] [address] [address] Lucho De León Sodium [Moles/Vol] 140 mmol/L Normal 136-145 [facility] Comment on above: Performed By: #### H GBHCT #### [facility] [address] [address] [address] Lucho De León Urea nitrogen [Mass/Vol] 15.0 mg/dL Normal 7.0-18.0 [facility] Comment on above: Performed By: #### H GBHCT #### [facility] [address] [address] [address] Lucho De León Urea nitrogen/Creatinine [Mass ratio] 18.8 mg/mg Normal [facility] Comment on above: Performed By: #### H GBHCT #### [facility] [address] [address] [address] Lucho De León NM STRESS/REST MULTIon 04-27 NM STRESS/REST MULTI Patient: DARIN THACKER Exam Date: 04/27/2022 : 1950 Gender:M Ordering : OLI TONYAKatja BELTRANTuckerBRETT [facility] Admission #: [id number] Family : Order #: [id number] CLICK HERE TO VIEW EXAM RADIOLOGY REPORT [...] STUDY: PERFUSION DEFECT: LOCATION: Mid-inferior. Apical inferior. [place]comb. SIZE: Medium (3-4 segments). SEVERITY: Mild. TYPE: [...] 04/28/2022 at 08:01 Normal [facility] CBC AUTO DIFFon 04-14-2022 BASO # 0.0 103/ul Normal 0.0-0.1 [facility] Comment on above: Performed By: #### A 1C #### [facility] [address] [place] [address] Dr. Lucho De León Basophils/100 WBC (Bld) 0.5 % Normal 0.2-2.0 [facility] Comment on above: Performed By: #### A 1C #### [facility] [address] [place] [address] Dr. Lucho De León EO # 0.1 103/ul Normal 0.0-0.7 [facility] Comment on above: Performed By: #### A 1C #### [facility] [address] [place] [address] Dr. Lucho De León Eosinophils/100 WBC (Bld) 2.0 % Normal 0.9-7.0 [facility] Comment on above: Performed By: #### A 1C #### [facility] [address] [place] [address] Dr. Lucho De León Erythrocyte distribution width (RBC) [Ratio] 15.0 % Normal 11.0-15.0 [facility] Comment on above: Performed By: #### A 1C #### [facility] [address] [place] [address] Dr. Lucho De León Hematocrit (Bld) [Volume fraction] 39.1 % Critically low 42.0-54.0 [facility] Comment on above: Performed By: #### A 1C #### [facility] [address] [address] [address] Lucho De León Hemoglobin (Bld) [Mass/Vol] 12.5 g/dL Critically low 14.0-18.0 [facility] Comment on above: Performed By: #### A 1C #### [facility] [address] [place] [address] Dr. Lucho De León IG # 0.02 10e3/ul Normal 0.00-0.03 [facility] Comment on above: Performed By: #### A 1C #### [facility] [address] [place] [address] Dr. Lucho De León IG % 0.4 % Normal 0.0-0.5 [facility] Comment on above: Performed By: #### A 1C #### [facility] [address] [place] [address] Dr. Lucho De León LYMPH # 1.7 103/ul Normal 1.2-3.8 [facility] Comment on above: Performed By: #### A 1C #### [facility] [address] [place] [address] Dr. Lucho De León Lymphocytes/100 WBC (Bld) 30.7 % Normal 20.5-60.0 [facility] Comment on above: Performed By: #### A 1C #### [facility] [address] [place] [address] Dr. Lucho De León MANUAL DIFF REQ NO Normal [facility] Comment on above: Performed By: #### A 1C #### [facility] [address] [place] [address] Dr. Lucho De León MCH (RBC) [Entitic mass] 29.7 pg Normal 25.9-34.0 [facility] Comment on above: Performed By: #### A 1C #### [facility] [address] [place] [address] Dr. Lucho De León MCHC (RBC) [Mass/Vol] 32.0 g/dL Normal 29.9-35.2 [facility] Comment on above: Performed By: #### A 1C #### [facility] [address] [address] [address] Lucho De León MCV (RBC) [Entitic vol] 92.9 fL Normal 80.0-94.0 [facility] Comment on above: Performed By: #### A 1C #### [facility] [address] [place] [address] Dr. Lucho De León MONO # 0.5 103/ul Normal 0.3-0.8 [facility] Comment on above: Performed By: #### A 1C #### [facility] [address] [place] [address] Dr. Lucho De León Monocytes/100 WBC (Bld) 9.6 % Normal 1.7-12.0 [facility] Comment on above: Performed By: #### A 1C #### [facility] [address] [place] [address] Dr. Lucho De León NEUT # 3.2 103/ul Normal 1.4-6.5 [facility] Comment on above: Performed By: #### A 1C #### [facility] [address] [place] [address] Dr. Lucho De León Neutrophils/100 WBC (Bld) 56.8 % Normal 43.0-75.0 [facility] Comment on above: Performed By: #### A 1C #### [facility] [address] [place] [address] Dr. Lucho De León Platelet mean volume (Bld) [Entitic vol] 9.2 fL Critically low 9.5-13.5 [facility] Comment on above: Performed By: #### A 1C #### [facility] [address] [place] [address] Dr. Lucho De León PLT 317 103/ul Normal 150-450 [facility] Comment on above: Performed By: #### A 1C #### [facility] [address] [place] [address] Dr. Lucoh De León RBC 4.21 106/ul Critically low 4.70-6.10 [facility] Comment on above: Performed By: #### A 1C #### [facility] [address] [place] [address] Dr. Lucho De León WBC 5.6 103/ul Normal 4.0-11.0 [facility] Comment on above: Performed By: #### A 1C #### [facility] [address] [id number] Lucho De León ECHOCARDIO M/2D COMPLETEon 0 04-14-2022 ECHOCARDIO M/2D COMPLETE Patient: DARIN THACKER Exam Date: 04/14/2022 : 1950 Gender:M Ordering : OLI TONYA DYE [facility] Admission #: [id number] Family : Order #: [id number] CLICK HERE TO VIEW EXAM ECHOCARDIOGRAM REPORT [...] 04/14/2022 at 17:53 Normal [facility] PRBC LEUKOREDUCEDon 04-14-20 ABO and Rh group Nom (Bld) Cross Match Result Compatible Unit Blood Type O Pos Unit Number [id number] Status Information Transfused Product ID Red Blood Cells Product Code [id number] Cross Match Result Compatible Unit Blood Type O Pos Unit Number [id number] Status Information Transfused Product ID Red Blood Cells Product Code [id number] Normal [facility] Comment on above: Performed By: #### P RBC #### [facility] [address] [place] [address] Dr. Lucho De León PRBC LEUKOREDUCED Cross Match Result Compatible Unit Blood Type O Pos Unit Number [id number] Status Information Transfused Product ID Red Blood Cells Product Code [id number] Normal [facility] Comment on above: Performed By: #### P RBC #### [facility] [address] [place] [address] Dr. Lucho De León PRBC LEUKOREDUCED Cross Match Result Compatible Unit Blood Type O Pos Unit Number [id number] Status Information Transfused Product ID Red Blood Cells Product Code [id number] [facility] Comment on above: Performed By: #### P RBC #### [facility] [address] [place] [address] Dr. Lucho De León CBC AUTO DIFFon 04-06-2022 BASO # 0.0 103/ul Normal 0.0-0.1 [facility] Comment on above: Performed By: #### C BC #### [facility] [address] [place] [address] Dr. Lucho De León Basophils/100 WBC (Bld) 0.4 % Normal 0.2-2.0 [facility] Comment on above: Performed By: #### C BC #### [facility] [address] [place] [address] Dr. Lucho De León EO # 0.1 103/ul Normal 0.0-0.7 [facility] Comment on above: Performed By: #### C BC #### [facility] [address] [place] [address] Dr. Lucho De León Eosinophils/100 WBC (Bld) 1.4 % Normal 0.9-7.0 [facility] Comment on above: Performed By: #### C BC #### [facility] [address] [place] [address] Dr. Lucho De León Erythrocyte distribution width (RBC) [Ratio] 16.3 % Critically high 11.0-15.0 [facility] Comment on above: Performed By: #### C BC #### [facility] [address] [place] [address] Dr. Lucho De León Hematocrit (Bld) [Volume fraction] 36.2 % Critically low 42.0-54.0 [facility] Comment on above: Performed By: #### C BC #### [facility] [address] [place] [address] Dr. Lucho De León Hemoglobin (Bld) [Mass/Vol] 11.3 g/dL Critically low 14.0-18.0 [facility] Comment on above: Performed By: #### C BC #### [facility] [address] [place] [address] Dr. Lucho De León IG # 0.04 10e3/ul Critically high 0.00-0.03 [facility] Comment on above: Performed By: #### C BC #### [facility] [address] [place] [address] Dr. Lucho De León IG % 0.5 % Normal 0.0-0.5 [facility] Comment on above: Performed By: #### C BC #### [facility] [address] [place] [address] Dr. Lucho De León LYMPH # 2.0 103/ul Normal 1.2-3.8 [facility] Comment on above: Performed By: #### C BC #### [facility] [address] [place] [address] Dr. Lucho De León Lymphocytes/100 WBC (Bld) 26.7 % Normal 20.5-60.0 [facility] Comment on above: Performed By: #### C BC #### [facility] [address] [place] [address] Dr. Lucho De León MANUAL DIFF REQ NO Normal [facility] Comment on above: Performed By: #### C BC #### [facility] [address] [place] [address] Dr. Lucho De León MCH (RBC) [Entitic mass] 29.7 pg Normal 25.9-34.0 [facility] Comment on above: Performed By: #### C BC #### [facility] [address] [place] [address] Dr. Lucho De León MCHC (RBC) [Mass/Vol] 31.2 g/dL Normal 29.9-35.2 [facility] Comment on above: Performed By: #### C BC #### [facility] [address] [place] [address] Dr. Lucho De León MCV (RBC) [Entitic vol] 95.3 fL Critically high 80.0-94.0 [facility] Comment on above: Performed By: #### C BC #### [facility] [address] [place] [address] Dr. Lucho De León MONO # 0.9 103/ul Critically high 0.3-0.8 [facility] Comment on above: Performed By: #### C BC #### [facility] [address] [place] [address] Dr. Lucho De León Monocytes/100 WBC (Bld) 11.8 % Normal 1.7-12.0 [facility] Comment on above: Performed By: #### C BC #### [facility] [address] [place] [address] Dr. Lucho De León NEUT # 4.3 103/ul Normal 1.4-6.5 [facility] Comment on above: Performed By: #### C BC #### [facility] [address] [place] [address] Dr. Lucho De León Neutrophils/100 WBC (Bld) 59.2 % Normal 43.0-75.0 [facility] Comment on above: Performed By: #### C BC #### [facility] [address] [place] [address] Dr. Lucho De León Platelet mean volume (Bld) [Entitic vol] 9.1 fL Critically low 9.5-13.5 [facility] Comment on above: Performed By: #### C BC #### [facility] [address] [place] [address] Dr. Lucho De León PLT 371 103/ul Normal 150-450 [facility] Comment on above: Performed By: #### C BC #### [facility] [address] [place] [address] Dr. Lucho De León RBC 3.80 106/ul Critically low 4.70-6.10 [facility] Comment on above: Performed By: #### C BC #### [facility] [address] [place] [address] Dr. Lucho De León WBC 7.3 103/ul Normal 4.0-11.0 [facility] Comment on above: Performed By: #### C BC #### [facility] [address] [place] [address] Dr. Lucho De León PROF CHEM 8 (BAS METB)on Anion gap [Moles/Vol] 12.4 mmol/L Normal [facility] Comment on above: Performed By: #### A 1C #### [facility] [address] [place] [address] Dr. Lucho De León Calcium [Mass/Vol] 9.3 mg/dL Normal 8.5-10.1 [facility] Comment on above: Performed By: #### A 1C #### [facility] [address] [place] [address] Dr. Lucho De León Chloride [Moles/Vol] 104 mmol/L Normal 98-107 [facility] Comment on above: Performed By: #### A 1C #### [facility] [address] [place] [address] Dr. Lucho De León CO2 [Moles/Vol] 24.6 mmol/L Normal 21.0-32.0 [facility] Comment on above: Performed By: #### A 1C #### [facility] [address] [place] [address] Dr. Lucho De León Creatinine [Mass/Vol] 0.67 mg/dL Critically low 0.70-1.30 [facility] Comment on above: Performed By: #### A 1C #### [facility] [address] [address] [address] Lucho De León EGFR-AF HAITIAN >60 Normal >=60 [facility] Comment on above: Performed By: #### A 1C #### [facility] [address] [address] [address] Lucho De León EGFR-NON AF HAITIAN >60 Normal >=60 [facility] Comment on above: Performed By: #### A 1C #### [facility] [address] [address] [address] Lucho De León Glucose [Mass/Vol] 144 mg/dL Critically high 74-106 [facility] Comment on above: Performed By: #### A 1C #### [facility] [address] [place] [address] Dr. Lucho De León Potassium [Moles/Vol] 5.0 mmol/L Normal 3.5-5.1 [facility] Comment on above: Performed By: #### A 1C #### [facility] [address] [address] [address] Lucho De León Sodium [Moles/Vol] 136 mmol/L Normal 136-145 [facility] Comment on above: Performed By: #### A 1C #### [facility] [address] [address] [address] Lucho De León Urea nitrogen [Mass/Vol] 12.0 mg/dL Normal 7.0-18.0 [facility] Comment on above: Performed By: #### A 1C #### [facility] [address] [address] [address] Lucho De León Urea nitrogen/Creatinine [Mass ratio] 17.9 mg/mg Normal [facility] Comment on above: Performed By: #### A 1C #### [facility] [address] [address] [address] Lucho De León CBC AUTO DIFFon 03-30-2022 BASO # 0.0 103/ul Normal 0.0-0.1 [facility] Comment on above: Performed By: #### C BC #### [facility] [address] [address] [address] Lucho De León Basophils/100 WBC (Bld) 0.2 % Normal 0.2-2.0 [facility] Comment on above: Performed By: #### C BC #### [facility] [address] [address] [address] Lucho De León EO # 0.1 103/ul Normal 0.0-0.7 [facility] Comment on above: Performed By: #### C BC #### [facility] [address] [address] [address] Lucho De León Eosinophils/100 WBC (Bld) 0.9 % Normal 0.9-7.0 [facility] Comment on above: Performed By: #### C BC #### [facility] [address] [place] [address] Dr. Lucho De León Erythrocyte distribution width (RBC) [Ratio] 16.9 % Critically high 11.0-15.0 [facility] Comment on above: Performed By: #### C BC #### [facility] [address] [place] [address] Dr. Lucho De León Hematocrit (Bld) [Volume fraction] 29.9 % Critically low 42.0-54.0 [facility] Comment on above: Performed By: #### C BC #### [facility] [address] [address] [address] Lucho De León Hemoglobin (Bld) [Mass/Vol] 10.1 g/dL Critically low 14.0-18.0 [facility] Comment on above: Performed By: #### C BC #### [facility] [address] [address] [address] Lucho De León IG # 0.10 10e3/ul Critically high 0.00-0.03 [facility] Comment on above: Performed By: #### C BC #### [facility] [address] [address] [address] Lucho De León IG % 0.9 % Critically high 0.0-0.5 [facility] Comment on above: Performed By: #### C BC #### [facility] [address] [address] [address] Lucho De León LYMPH # 2.0 103/ul Normal 1.2-3.8 [facility] Comment on above: Performed By: #### C BC #### [facility] [address] [address] [address] Lucho De León Lymphocytes/100 WBC (Bld) 18.3 % Critically low 20.5-60.0 [facility] Comment on above: Performed By: #### C BC #### [facility] [address] [place] [address] Dr. Lucho De León MANUAL DIFF REQ NO Normal [facility] Comment on above: Performed By: #### C BC #### [facility] [address] [place] [address] Dr. Lucho De León MCH (RBC) [Entitic mass] 30.6 pg Normal 25.9-34.0 [facility] Comment on above: Performed By: #### C BC #### [facility] [address] [place] [address] Dr. Lucho De León MCHC (RBC) [Mass/Vol] 33.8 g/dL Normal 29.9-35.2 [facility] Comment on above: Performed By: #### C BC #### [facility] [address] [place] [address] Dr. Lucho De León MCV (RBC) [Entitic vol] 90.6 fL Normal 80.0-94.0 [facility] Comment on above: Performed By: #### C BC #### [facility] [address] [place] [address] Dr. Lucho De León MONO # 0.9 103/ul Critically high 0.3-0.8 [facility] Comment on above: Performed By: #### C BC #### [facility] [address] [place] [address] Dr. Lucho De León Monocytes/100 WBC (Bld) 8.2 % Normal 1.7-12.0 [facility] Comment on above: Performed By: #### C BC #### [facility] [address] [address] [address] Lucho De León NEUT # 8.0 103/ul Critically high 1.4-6.5 [facility] Comment on above: Performed By: #### C BC #### [facility] [address] [address] [address] Lucho De León Neutrophils/100 WBC (Bld) 71.5 % Normal 43.0-75.0 [facility] Comment on above: Performed By: #### C BC #### [facility] [address] [address] [address] Lucho De León Platelet mean volume (Bld) [Entitic vol] 9.7 fL Normal 9.5-13.5 [facility] Comment on above: Performed By: #### C BC #### [facility] [address] [address] [address] Lucho De León PLT 195 103/ul Normal 150-450 [facility] Comment on above: Performed By: #### C BC #### [facility] [address] [address] [address] Lucho De León RBC 3.30 106/ul Critically low 4.70-6.10 [facility] Comment on above: Performed By: #### C BC #### [facility] [address] [address] [address] Lucho De León WBC 11.1 103/ul Critically high 4.0-11.0 [facility] Comment on above: Performed By: #### C BC #### [facility] [address] [address] [address] Lucho De León PROF CHEM 8 (BAS METB)on Anion gap [Moles/Vol] 11.8 mmol/L Normal [facility] Comment on above: Performed By: #### C BC #### [facility] [address] [address] [address] Lucho De León Calcium [Mass/Vol] 8.5 mg/dL Normal 8.5-10.1 [facility] Comment on above: Performed By: #### C BC #### [facility] [address] [address] [address] Lucho De León Chloride [Moles/Vol] 103 mmol/L Normal 98-107 [facility] Comment on above: Performed By: #### C BC #### [facility] [address] [address] [address] Lucho De León CO2 [Moles/Vol] 25.8 mmol/L Normal 21.0-32.0 [facility] Comment on above: Performed By: #### C BC #### [facility] [address] [address] [address] Lucho De León Creatinine [Mass/Vol] 0.56 mg/dL Critically low 0.70-1.30 [facility] Comment on above: Performed By: #### C BC #### [facility] [address] [place] [address] Dr. Lucho De León EGFR-AF HAITIAN >60 Normal >=60 [facility] Comment on above: Performed By: #### C BC #### [facility] [address] [address] [address] Lucho De León EGFR-NON AF HAITIAN >60 Normal >=60 [facility] Comment on above: Performed By: #### C BC #### [facility] [address] [address] [address] Lucho De León Glucose [Mass/Vol] 166 mg/dL Critically high 74-106 [facility] Comment on above: Performed By: #### C BC #### [facility] [address] [place] [address] Dr. Lucho De León Potassium [Moles/Vol] 3.6 mmol/L Normal 3.5-5.1 [facility] Comment on above: Performed By: #### C BC #### [facility] [address] [place] [address] Dr. Lucoh De León Sodium [Moles/Vol] 137 mmol/L Normal 136-145 [facility] Comment on above: Performed By: #### C BC #### [facility] [address] [place] [address] Dr. Lucho De León Urea nitrogen [Mass/Vol] 6.0 mg/dL Critically low 7.0-18.0 [facility] Comment on above: Performed By: #### C BC #### [facility] [address] [place] [address] Dr. Lucho De León Urea nitrogen/Creatinine [Mass ratio] 10.7 mg/mg Normal [facility] Comment on above: Performed By: #### C BC #### [facility] [address] [place] [address] Dr. Lucho De León CBC AUTO DIFFon 03-29-2022 BASO # 0.0 103/ul Normal 0.0-0.1 [facility] Comment on above: Performed By: #### A 1C #### [facility] [address] [place] [address] Dr. Lucho De León Basophils/100 WBC (Bld) 0.3 % Normal 0.2-2.0 [facility] Comment on above: Performed By: #### A 1C #### [facility] [address] [place] [address] Dr. Lucho De León EO # 0.1 103/ul Normal 0.0-0.7 [facility] Comment on above: Performed By: #### A 1C #### [facility] [address] [place] [address] Dr. Lucho De León Eosinophils/100 WBC (Bld) 0.8 % Critically low 0.9-7.0 [facility] Comment on above: Performed By: #### A 1C #### [facility] [address] [place] [address] Dr. Lucho De León Erythrocyte distribution width (RBC) [Ratio] 16.9 % Critically high 11.0-15.0 [facility] Comment on above: Performed By: #### A 1C #### [facility] [address] [place] [address] Dr. Lucho De León Hematocrit (Bld) [Volume fraction] 23.0 % Critically low 42.0-54.0 [facility] Comment on above: Performed By: #### A 1C #### [facility] [address] [address] [address] Lucho De León Hemoglobin (Bld) [Mass/Vol] 7.6 g/dL Critically low 14.0-18.0 [facility] Comment on above: Performed By: #### A 1C #### [facility] [address] [address] [address] Lucho De León IG # 0.10 10e3/ul Critically high 0.00-0.03 [facility] Comment on above: Performed By: #### A 1C #### [facility] [address] [address] [address] Lucho De León IG % 1.3 % Critically high 0.0-0.5 [facility] Comment on above: Performed By: #### A 1C #### [facility] [address] [place] [address] Dr. Lucho De León LYMPH # 2.4 103/ul Normal 1.2-3.8 [facility] Comment on above: Performed By: #### A 1C #### [facility] [address] [place] [address] Dr. Lucho De León Lymphocytes/100 WBC (Bld) 32.1 % Normal 20.5-60.0 [facility] Comment on above: Performed By: #### A 1C #### [facility] [address] [place] [address] Dr. Lucho De León MANUAL DIFF REQ NO Normal [facility] Comment on above: Performed By: #### A 1C #### [facility] [address] [address] [address] Lucho De León MCH (RBC) [Entitic mass] 30.9 pg Normal 25.9-34.0 [facility] Comment on above: Performed By: #### A 1C #### [facility] [address] [place] [address] Dr. Lucho De León MCHC (RBC) [Mass/Vol] 33.0 g/dL Normal 29.9-35.2 [facility] Comment on above: Performed By: #### A 1C #### [facility] [address] [place] [address] Dr. Lucho De León MCV (RBC) [Entitic vol] 93.5 fL Normal 80.0-94.0 [facility] Comment on above: Performed By: #### A 1C #### [facility] [address] [place] [address] Dr. Lucho De León MONO # 0.8 103/ul Normal 0.3-0.8 [facility] Comment on above: Performed By: #### A 1C #### [facility] [address] [place] [address] Dr. Lucho De León Monocytes/100 WBC (Bld) 11.3 % Normal 1.7-12.0 [facility] Comment on above: Performed By: #### A 1C #### [facility] [address] [place] [address] Dr. Lucho De León NEUT # 4.0 103/ul Normal 1.4-6.5 [facility] Comment on above: Performed By: #### A 1C #### [facility] [address] [place] [address] Dr. Lucho De León Neutrophils/100 WBC (Bld) 54.2 % Normal 43.0-75.0 [facility] Comment on above: Performed By: #### A 1C #### [facility] [address] [place] [address] Dr. Lucho De León Platelet mean volume (Bld) [Entitic vol] 9.7 fL Normal 9.5-13.5 [facility] Comment on above: Performed By: #### A 1C #### [facility] [address] [place] [address] Dr. Lucho De León PLT 155 103/ul Normal 150-450 [facility] Comment on above: Performed By: #### A 1C #### [facility] [address] [place] [address] Dr. Lucho De Lenó RBC 2.46 106/ul Critically low 4.70-6.10 [facility] Comment on above: Performed By: #### A 1C #### [facility] [address] [place] [address] Dr. Lucho De León WBC 7.4 103/ul Normal 4.0-11.0 [facility] Comment on above: Performed By: #### A 1C #### [facility] [address] [place] [address] Dr. Lucho De León HEMOGLOBIN AND HEMATOCRITon 03-29-2022 Hematocrit (Bld) [Volume fraction] 27.6 % Critically low 42.0-54.0 [facility] Comment on above: Performed By: #### A 1C #### [facility] [address] [place] [address] Dr. Lucho De León Hemoglobin (Bld) [Mass/Vol] 9.0 g/dL Critically low 14.0-18.0 [facility] Comment on above: Performed By: #### A 1C #### [facility] [address] [place] [address] Dr. Lucho De León POINT OF CARE GLUCOSEon 03-16 Glucose [Mass/Vol] 135 mg/dL Critically high [facility]106 [facility] Comment on above: Performed By: #### M ALBR #### [facility] [address] [place] [address] Dr. Lucho De León Glucose [Mass/Vol] 159 mg/dL Critically high [address] [place] [address] Comment on above: Performed By: #### M ALBR #### [facility] [address] [place] [address] Dr. Lucho De León Glucose [Mass/Vol] 225 mg/dL Critically high [facility] Comment on above: Performed By: #### C VDTBH #### [facility] [address] [place] [address] Dr. Lucho De León Glucose [Mass/Vol] 181 mg/dL Critically high [facility] Comment on above: Performed By: #### P OCGLUC #### [facility] [address] [place] [address] Dr. Lucho De León PROF CHEM 8 (BAS METB)on Anion gap [Moles/Vol] 9.5 mmol/L Normal [facility] Comment on above: Performed By: #### A 1C #### [facility] [address] [address] [address] Lucho De León Calcium [Mass/Vol] 7.7 mg/dL Critically low 8.5-10.1 [facility] Comment on above: Performed By: #### A 1C #### [facility] [address] [address] [address] Lucho De León Chloride [Moles/Vol] 107 mmol/L Normal 98-107 [facility] Comment on above: Performed By: #### A 1C #### [facility] [address] [address] [address] Lucho De León CO2 [Moles/Vol] 23.7 mmol/L Normal 21.0-32.0 [facility] Comment on above: Performed By: #### A 1C #### [facility] [address] [address] [address] Lucho De León Creatinine [Mass/Vol] 0.58 mg/dL Critically low 0.70-1.30 [facility] Comment on above: Performed By: #### A 1C #### [facility] [address] [address] [address] Lucho De León EGFR-AF HAITIAN >60 Normal >=60 [facility] Comment on above: Performed By: #### A 1C #### [facility] [address] [address] [address] Lucho De León EGFR-NON AF HAITIAN >60 Normal >=60 [facility] Comment on above: Performed By: #### A 1C #### [facility] [address] [place] [address] Dr. Lucho De León Glucose [Mass/Vol] 125 mg/dL Critically high 74-106 [facility] Comment on above: Performed By: #### A 1C #### [facility] [address] [address] [address] Lucho De León Potassium [Moles/Vol] 4.2 mmol/L Normal 3.5-5.1 [facility] Comment on above: Performed By: #### A 1C #### [facility] [address] [place] [address] Dr. Lucho De León Sodium [Moles/Vol] 136 mmol/L Normal 136-145 [facility] Comment on above: Performed By: #### A 1C #### [facility] [address] [place] [address] Dr. Lucho De León Urea nitrogen [Mass/Vol] 15.0 mg/dL Normal 7.0-18.0 [facility] Comment on above: Performed By: #### A 1C #### [facility] [address] [place] [address] Dr. Lucho De León Urea nitrogen/Creatinine [Mass ratio] 25.9 mg/mg Normal [facility] Comment on above: Performed By: #### A 1C #### [facility] [address] [place] [address] Dr. Lucho De León CBC AUTO DIFFon 03-28-2022 BASO # 0.0 103/ul Normal 0.0-0.1 [facility] Comment on above: Performed By: #### B MP #### [facility] [address] [place] [address] Dr. Lucho De León Basophils/100 WBC (Bld) 0.3 % Normal 0.2-2.0 [facility] Comment on above: Performed By: #### B MP #### [facility] [address] [place] [address] Dr. Lucho De León EO # 0.0 103/ul Normal 0.0-0.7 [facility] Comment on above: Performed By: #### B MP #### [facility] [address] [place] [address] Dr. Lucho De León Eosinophils/100 WBC (Bld) 0.4 % Critically low 0.9-7.0 [facility] Comment on above: Performed By: #### B MP #### [facility] [address] [place] [address] Dr. Lucho De León Erythrocyte distribution width (RBC) [Ratio] 15.8 % Critically high 11.0-15.0 [facility] Comment on above: Performed By: #### B MP #### [facility] [address] [place] [address] Dr. Lucho De León Hematocrit (Bld) [Volume fraction] 23.6 % Critically low 42.0-54.0 [facility] Comment on above: Performed By: #### B MP #### [facility] [address] [place] [address] Dr. Lucho De León Hemoglobin (Bld) [Mass/Vol] 7.9 g/dL Critically low 14.0-18.0 [facility] Comment on above: Performed By: #### B MP #### [facility] [address] [place] [address] Dr. Lucho De León IG # 0.17 10e3/ul Critically high 0.00-0.03 [facility] Comment on above: Performed By: #### B MP #### [facility] [address] [place] [address] Dr. Lucho De León IG % 1.6 % Critically high 0.0-0.5 [facility] Comment on above: Performed By: #### B MP #### [facility] [address] [place] [address] Dr. Lucho De León LYMPH # 2.8 103/ul Normal 1.2-3.8 [facility] Comment on above: Performed By: #### B MP #### [facility] [address] [place] [address] Dr. Lucho De León Lymphocytes/100 WBC (Bld) 27.0 % Normal 20.5-60.0 [facility] Comment on above: Performed By: #### B MP #### [facility] [address] [place] [address] Dr. Lucho De León MANUAL DIFF REQ NO Normal [facility] Comment on above: Performed By: #### B MP #### [facility] [address] [place] [address] Dr. Lucho De León MCH (RBC) [Entitic mass] 30.3 pg Normal 25.9-34.0 [facility] Comment on above: Performed By: #### B MP #### [facility] [address] [place] [address] Dr. Lucho De León MCHC (RBC) [Mass/Vol] 33.5 g/dL Normal 29.9-35.2 [facility] Comment on above: Performed By: #### B MP #### [facility] [address] [address] [address] Lucho De León MCV (RBC) [Entitic vol] 90.4 fL Normal 80.0-94.0 [facility] Comment on above: Performed By: #### B MP #### [facility] [address] [address] [address] Lucho De León MONO # 1.2 103/ul Critically high 0.3-0.8 [facility] Comment on above: Performed By: #### B MP #### [facility] [address] [place] [address] Dr. Lucho De León Monocytes/100 WBC (Bld) 11.6 % Normal 1.7-12.0 [facility] Comment on above: Performed By: #### B MP #### [facility] [address] [place] [address] Dr. Lucho De León NEUT # 6.2 103/ul Normal 1.4-6.5 [facility] Comment on above: Performed By: #### B MP #### [facility] [address] [place] [address] Dr. Lucho De León Neutrophils/100 WBC (Bld) 59.1 % Normal 43.0-75.0 [facility] Comment on above: Performed By: #### B MP #### [facility] [address] [address] [address] Lucho De León Platelet mean volume (Bld) [Entitic vol] 10.1 fL Normal 9.5-13.5 [facility] Comment on above: Performed By: #### B MP #### [facility] [address] [place] [address] Dr. Lucho De León PLT 166 103/ul Normal 150-450 [facility] Comment on above: Performed By: #### B MP #### [facility] [address] [place] [address] Dr. Lucho De León RBC 2.61 106/ul Critically low 4.70-6.10 [facility] Comment on above: Performed By: #### B MP #### [facility] [address] [place] [address] Dr. Lucho De León WBC 10.5 103/ul Normal 4.0-11.0 [facility] Comment on above: Performed By: #### B MP #### [facility] [address] [place] [address] Dr. Lucho De León HEMOGLOBIN AND HEMATOCRITon 03-28-2022 Hematocrit (Bld) [Volume fraction] 26.4 % Critically low 42.0-54.0 [facility] Comment on above: Performed By: #### H GBHCT #### [facility] [address] [place] [address] Dr. Lucho De León Hemoglobin (Bld) [Mass/Vol] 8.8 g/dL Critically low 14.0-18.0 [facility] Comment on above: Performed By: #### H GBHCT #### [facility] [address] [place] [address] Dr. Lucho De León Hematocrit (Bld) [Volume fraction] 20.9 % Critically low 42.0-54.0 [facility] Comment on above: Performed By: #### C VDTBH #### [facility] [address] [place] [address] Dr. Lucho De León Hemoglobin (Bld) [Mass/Vol] 7.1 g/dL Critically low 14.0-18.0 [facility] Comment on above: Performed By: #### C VDTBH #### [facility] [address] [place] [address] Dr. Lucho De León POINT OF CARE GLUCOSEon 03-16 Glucose [Mass/Vol] 132 mg/dL Critically high 74-106 [facility] Comment on above: Performed By: #### C BC #### [facility] [address] [place] [address] Dr. Lucho De León Glucose [Mass/Vol] 198 mg/dL Critically high 74-106 [facility] Comment on above: Performed By: #### A 1C #### [facility] [address] [address] [address] Lucho De León Glucose [Mass/Vol] 82 mg/dL Normal 74-106 [facility] Comment on above: Performed By: #### C BC #### [facility] [address] [address] [address] Lucho De León Glucose [Mass/Vol] 85 mg/dL Normal 74-106 [facility] Comment on above: Performed By: #### C VDTBH #### [facility] [address] [address] [address] Lucho De León Glucose [Mass/Vol] 115 mg/dL Critically high 74-106 [facility] Comment on above: Performed By: #### A 1C #### [facility] [address] [place] [address] Dr. Lucho De León PROF CHEM 8 (BAS METB)on Anion gap [Moles/Vol] 10.6 mmol/L Normal [facility] Comment on above: Performed By: #### M ALBR #### [facility] [address] [address] [address] Lucho De León Calcium [Mass/Vol] 8.0 mg/dL Critically low 8.5-10.1 [facility] Comment on above: Performed By: #### M ALBR #### [facility] [address] [place] [address] Dr. Lucho De León Chloride [Moles/Vol] 108 mmol/L Critically high 98-107 [facility] Comment on above: Performed By: #### M ALBR #### [facility] [address] [address] [address] Lucho De León CO2 [Moles/Vol] 23.6 mmol/L Normal 21.0-32.0 [facility] Comment on above: Performed By: #### M ALBR #### [facility] [address] [place] [address] Dr. Lucho De León Creatinine [Mass/Vol] 0.54 mg/dL Critically low 0.70-1.30 [facility] Comment on above: Performed By: #### M ALBR #### [facility] [address] [address] [address] Lucho De León EGFR-AF HAITIAN >60 Normal >=60 [facility] Comment on above: Performed By: #### M ALBR #### [facility] [address] [address] [address] Lucho De León EGFR-NON AF HAITIAN >60 Normal >=60 [facility] Comment on above: Performed By: #### M ALBR #### [facility] [address] [address] [address] Lucho De León Glucose [Mass/Vol] 126 mg/dL Critically high 74-106 [facility] Comment on above: Performed By: #### M ALBR #### [facility] [address] [address] [address] Lucho De León Potassium [Moles/Vol] 4.2 mmol/L Normal 3.5-5.1 [facility] Comment on above: Performed By: #### M ALBR #### [facility] [address] [address] [address] Lucho De León Sodium [Moles/Vol] 138 mmol/L Normal 136-145 [facility] Comment on above: Performed By: #### M ALBR #### [facility] [address] [address] [address] Lucho De León Urea nitrogen [Mass/Vol] 28.0 mg/dL Critically high 7.0-18.0 [facility] Comment on above: Performed By: #### M ALBR #### [facility] [address] [address] [address] Lucho De León Urea nitrogen/Creatinine [Mass ratio] 51.9 mg/mg Normal [facility] Comment on above: Performed By: #### M ALBR #### [facility] [address] [place] [address] Dr. Lucho De León CBC W MANUAL DIFFon 03-27-20 22 ATYPICAL LYMPH # Normal [facility] Comment on above: Performed By: #### C VDTBH #### [facility] [address] [place] [address] Dr. Lucho De León ATYPICAL LYMPH % Normal [facility] Comment on above: Performed By: #### C VDTBH #### [facility] [address] [place] [address] Dr. Lucho De León BAND # 0.4 103/ul Critically high 0.0-0.3 [facility] Comment on above: Performed By: #### C VDTBH #### [facility] [address] [place] [address] Dr. Lucho De León BAND % 3 % Normal 0-5 [facility] Comment on above: Performed By: #### C VDTBH #### [facility] [address] [place] [address] Dr. Lucho De León BASOM # 0.00 103/ul Normal 0.00-0.10 [facility] Comment on above: Performed By: #### C VDTBH #### [facility] [address] [place] [address] Dr. Lucho De León BASOM % 0.0 % Critically low 0.2-2.0 [facility] Comment on above: Performed By: #### C VDTBH #### [facility] [address] [place] [address] Dr. Lucho De León BLAST # Normal [facility] Comment on above: Performed By: #### C VDTBH #### [facility] [address] [place] [address] Dr. Lucho De León BLAST % Normal [facility] Comment on above: Performed By: #### C VDTBH #### [facility] [address] [place] [address] Dr. Lucho De León CORRECTED WBC Normal 4.0-11.[address] [facility] Comment on above: Performed By: #### C VDTBH #### [facility] [address] [place] [address] Dr. Lucho De León EOS # 0.00 103/ul Normal 0.00-0.70 [facility] Comment on above: Performed By: #### C VDTBH #### [facility] [address] [address] [address] Lucho De León EOS% 0.0 % Critically low 0.9-7.0 [facility] Comment on above: Performed By: #### C VDTBH #### [facility] [address] [place] [address] Dr. Lucho De León HCT 25.1 % Critically low 42.0-54.0 [facility] Comment on above: Performed By: #### C VDTBH #### [facility] [address] [place] [address] Dr. Lucho De León HGB 8.5 g/dl Critically low 14.0-18.0 [facility] Comment on above: Performed By: #### C VDTBH #### [facility] [address] [place] [address] Dr. Lucho De León LYMPHM # 2.10 103/ul Normal 1.20-3.80 [facility] Comment on above: Performed By: #### C VDTBH #### [facility] [address] [place] [address] Dr. Lucho De León LYMPHM% 15.0 % Critically low 20.5-60.0 [facility] Comment on above: Performed By: #### C VDTBH #### [facility] [address] [place] [address] Dr. Lucho De León MCH 30.9 pg Normal 25.9-34.0 [facility] Comment on above: Performed By: #### C VDTBH #### [facility] [address] [place] [address] Dr. Lucho De León MCHC 33.9 g/dl Normal 29.9-35.2 [facility] Comment on above: Performed By: #### C VDTBH #### [facility] [address] [place] [address] Dr. Lucho De León MCV 91.3 fL Normal 80.0-94.0 [facility] Comment on above: Performed By: #### C VDTBH #### [facility] [address] [place] [address] Dr. Lucho De León METAMYELOCYTE # Normal [facility] Comment on above: Performed By: #### C VDTBH #### [facility] [address] [place] [address] Dr. Lucho De León METAMYELOCYTE % Normal [facility] Comment on above: Performed By: #### C VDTBH #### [facility] [address] [address] [address] Lucho De León MONOM# 0.98 103/ul Critically high 0.30-0.80 [facility] Comment on above: Performed By: #### C VDTBH #### [facility] [address] [address] [address] Lucho De León MONOM% 7.0 % Normal 1.7-12.0 [facility] Comment on above: Performed By: #### C VDTBH #### [facility] [address] [place] [address] Dr. Lucho De León MPV 10.7 fL Normal 9.5-13.5 [facility] Comment on above: Performed By: #### C VDTBH #### [facility] [address] [place] [address] Dr. Lucho De León MYELOCYTE # Normal [facility] Comment on above: Performed By: #### C VDTBH #### [facility] [address] [place] [address] Dr. Lucho De León MYELOCYTE % Normal [facility] Comment on above: Performed By: #### C VDTBH #### [facility] [address] [place] [address] Dr. Lucho De León NRBC 3 Normal [facility] Comment on above: Performed By: #### C VDTBH #### [facility] [address] [place] [address] Dr. Lucho De León PLT 176 103/ul Normal 150-450 [facility] Comment on above: Performed By: #### C VDTBH #### [facility] [address] [place] [address] Dr. Lucho De León RBC 2.75 106/ul Critically low 4.70-6.10 [facility] Comment on above: Performed By: #### C VDTBH #### [facility] [address] [place] [address] Dr. Lucho De León RDW 14.2 % Normal 11.0-15.0 [facility] Comment on above: Performed By: #### C VDTBH #### [facility] [address] [place] [address] Dr. Lucho De León SEG # 10.50 103/ul Critically high 1.40-6.50 [facility] Comment on above: Performed By: #### C VDTBH #### [facility] [address] [place] [address] Dr. Lucho De León SEG % 75.0 % Normal 43.0-75.0 [facility] Comment on above: Performed By: #### C VDTBH #### [facility] [address] [place] [address] Dr. Lucho De León WBC 14.0 103/ul Critically high 4.0-11.0 [facility] Comment on above: Performed By: #### C VDTBH #### [facility] [address] [place] [address] Dr. Lucho De León HEMOGLOBIN AND HEMATOCRITon 03-27-2022 Hematocrit (Bld) [Volume fraction] 24.4 % Critically low 42.0-54.0 [facility] Comment on above: Performed By: #### H GBHCT #### [facility] [address] [place] [address] Dr. Lucho De León Hemoglobin (Bld) [Mass/Vol] 8.3 g/dL Critically low 14.0-18.0 [facility] Comment on above: Performed By: #### H GBHCT #### [facility] [address] [place] [address] Dr. Lucho De León POINT OF CARE GLUCOSEon 03-16 Glucose [Mass/Vol] 222 mg/dL Critically high 74-106 [facility] Comment on above: Performed By: #### B MP #### [facility] [address] [place] [address] Dr. Lucho De León Glucose [Mass/Vol] 330 mg/dL Critically high 74-106 [facility] Comment on above: Performed By: #### H GBHCT #### [facility] [address] [place] [address] Dr. Lucho De León Glucose [Mass/Vol] 357 mg/dL Critically high -106 [facility] Comment on above: Performed By: #### A 1C #### [facility] [address] [place] [address] Dr. Lucho De León Glucose [Mass/Vol] 257 mg/dL Critically high -106 [facility] Comment on above: Performed By: #### M ALBR #### [facility] [address] [place] [address] Dr. Lucho De León Glucose [Mass/Vol] 330 mg/dL Critically high -106 [facility] Comment on above: Performed By: #### C VDTBH #### [facility] [address] [place] [address] Dr. Lucho De León PROF CHEM 8 (BAS METB)on Anion gap [Moles/Vol] 15.3 mmol/L Normal [facility] Comment on above: Performed By: #### B MP #### [facility] [address] [place] [address] Dr. Lucho De León Calcium [Mass/Vol] 7.9 mg/dL Critically low 8.5-10.1 [facility] Comment on above: Performed By: #### B MP #### [facility] [address] [place] [address] Dr. Lucho De León Chloride [Moles/Vol] 106 mmol/L Normal 98-107 [facility] Comment on above: Performed By: #### B MP #### [facility] [address] [place] [address] Dr. Lucho De León CO2 [Moles/Vol] 20.9 mmol/L Critically low 21.0-32.0 [facility] Comment on above: Performed By: #### B MP #### [facility] [address] [place] [address] Dr. Lucho De León Creatinine [Mass/Vol] 0.84 mg/dL Normal 0.70-1.30 [facility] Comment on above: Performed By: #### B MP #### [facility] [address] [address] [address] Lucho De León EGFR-AF HAITIAN >60 Normal >=60 [facility] Comment on above: Performed By: #### B MP #### [facility] [address] [address] [address] Lucho De León EGFR-NON AF HAITIAN >60 Normal >=60 [facility] Comment on above: Performed By: #### B MP #### [facility] [address] [address] [address] Lucho De León Glucose [Mass/Vol] 275 mg/dL Critically high 74-106 [facility] Comment on above: Performed By: #### B MP #### [facility] [address] [address] [address] Lucho De León Potassium [Moles/Vol] 5.2 mmol/L Critically high 3.5-5.1 [facility] Comment on above: Performed By: #### B MP #### [facility] [address] [address] [address] Lucho De León Sodium [Moles/Vol] 137 mmol/L Normal 136-145 [facility] Comment on above: Performed By: #### B MP #### [facility] [address] [address] [address] Lucho De León Urea nitrogen [Mass/Vol] 57.0 mg/dL Critically high 7.0-18.0 [facility] Comment on above: Performed By: #### B MP #### [facility] [address] [address] [address] Lucho De León Urea nitrogen/Creatinine [Mass ratio] 67.9 mg/mg Normal [facility] Comment on above: Performed By: #### B MP #### [facility] [address] [address] [address] Lucho De León TYPE AND SCREENon 06-12-2022 TYPE AND SCREEN Negative Normal [facility] Comment on above: Performed By: #### M ALBR #### [facility] [address] [place] [address] Dr. Lucho De León ABO RH RETYPEon 03-26-2022 ABO and Rh group Nom (Bld) DONE Normal [facility] Comment on above: Performed By: #### C VDTBH #### [facility] [address] [place] [address] Dr. Luhco De León AMYLASEon 03-26-2022 Amylase [Catalytic activity/Vol] 34 U/L Normal 25-115 [facility] Comment on above: Performed By: #### C BC #### [facility] [address] [place] [address] Dr. Lucho De León CBC AUTO DIFFon 03-26-2022 BASO # 0.0 103/ul Normal 0.0-0.1 [facility] Comment on above: Performed By: #### C BC #### [facility] [address] [place] [address] Dr. Lucho De León Basophils/100 WBC (Bld) 0.3 % Normal 0.2-2.0 [facility] Comment on above: Performed By: #### C BC #### [facility] [address] [place] [address] Dr. Lucho De León EO # 0.0 103/ul Normal 0.0-0.7 [facility] Comment on above: Performed By: #### C BC #### [facility] [address] [place] [address] Dr. Lucho De León Eosinophils/100 WBC (Bld) 0.3 % Critically low 0.9-7.0 [facility] Comment on above: Performed By: #### C BC #### [facility] [address] [place] [address] Dr. Lucho De León Erythrocyte distribution width (RBC) [Ratio] 13.9 % Normal 11.0-15.0 [facility] Comment on above: Performed By: #### C BC #### [facility] [address] [place] [address] Dr. Lucho De León Hematocrit (Bld) [Volume fraction] 30.5 % Critically low 42.0-54.0 [facility] Comment on above: Performed By: #### C BC #### [facility] [address] [address] [address] Lucho De León Hemoglobin (Bld) [Mass/Vol] 10.0 g/dL Critically low 14.0-18.0 [facility] Comment on above: Performed By: #### C BC #### [facility] [address] [address] [address] Lucho De León IG # 0.12 10e3/ul Critically high 0.00-0.03 [facility] Comment on above: Performed By: #### C BC #### [facility] [address] [place] [address] Dr. Lucho De León IG % 1.0 % Critically high 0.0-0.5 [facility] Comment on above: Performed By: #### C BC #### [facility] [address] [address] [address] Lucho De León LYMPH # 1.4 103/ul Normal 1.2-3.8 [facility] Comment on above: Performed By: #### C BC #### [facility] [address] [place] [address] Dr. Lucho De León Lymphocytes/100 WBC (Bld) 12.5 % Critically low 20.5-60.0 [facility] Comment on above: Performed By: #### C BC #### [facility] [address] [place] [address] Dr. Lucho De León MANUAL DIFF REQ NO Normal [facility] Comment on above: Performed By: #### C BC #### [facility] [address] [place] [address] Dr. Lucho De León MCH (RBC) [Entitic mass] 31.2 pg Normal 25.9-34.0 [facility] Comment on above: Performed By: #### C BC #### [facility] [address] [place] [address] Dr. Lucho De León MCHC (RBC) [Mass/Vol] 32.8 g/dL Normal 29.9-35.2 [facility] Comment on above: Performed By: #### C BC #### [facility] [address] [place] [address] Dr. Lucho De León MCV (RBC) [Entitic vol] 95.0 fL Critically high 80.0-94.0 [facility] Comment on above: Performed By: #### C BC #### [facility] [address] [place] [address] Dr. Lucho De León MONO # 0.8 103/ul Normal 0.3-0.8 [facility] Comment on above: Performed By: #### C BC #### [facility] [address] [place] [address] Dr. Lucho De León Monocytes/100 WBC (Bld) 6.9 % Normal 1.7-12.0 [facility] Comment on above: Performed By: #### C BC #### [facility] [address] [place] [address] Dr. Lucho De León NEUT # 9.0 103/ul Critically high 1.4-6.5 [facility] Comment on above: Performed By: #### C BC #### [facility] [address] [place] [address] Dr. Lucho De León Neutrophils/100 WBC (Bld) 79.0 % Critically high 43.0-75.0 [facility] Comment on above: Performed By: #### C BC #### [facility] [address] [place] [address] Dr. Lucho De León Platelet mean volume (Bld) [Entitic vol] 10.2 fL Normal 9.5-13.5 [facility] Comment on above: Performed By: #### C BC #### [facility] [address] [place] [address] Dr. Lucho De León PLT 226 103/ul Normal 150-450 [facility] Comment on above: Performed By: #### C BC #### [facility] [address] [place] [address] Dr. Lucho De León RBC 3.21 106/ul Critically low 4.70-6.10 [facility] Comment on above: Performed By: #### C BC #### [facility] [address] [place] [address] Dr. Lucho De León WBC 11.4 103/ul Critically high 4.0-11.0 [facility] Comment on above: Performed By: #### C BC #### [facility] [address] [place] [address] Dr. Lucho De León CBC W MANUAL DIFFon 03-26-20 22 ATYPICAL LYMPH # Normal [facility] Comment on above: Performed By: #### M ALBR #### [facility] [address] [place] [address] Dr. Lucho De León ATYPICAL LYMPH % Normal [facility] Comment on above: Performed By: #### M ALBR #### [facility] [address] [place] [address] Dr. Lucho De León BAND # 0.3 103/ul Normal 0.0-0.3 [facility] Comment on above: Performed By: #### M ALBR #### [facility] [address] [place] [address] Dr. Lucho De León BAND % 2 % Normal 0-5 [facility] Comment on above: Performed By: #### M ALBR #### [facility] [address] [place] [address] Dr. Lucho De León BASOM # 0.00 103/ul Normal 0.00-0.10 [facility] Comment on above: Performed By: #### M ALBR #### [facility] [address] [place] [address] Dr. Lucho De León BASOM % 0.0 % Critically low 0.2-2.0 [facility] Comment on above: Performed By: #### M ALBR #### [facility] [address] [place] [address] Dr. Lucho De León BLAST # Normal [facility] Comment on above: Performed By: #### M ALBR #### [facility] [address] [place] [address] Dr. Lucho De León BLAST % Normal [facility] Comment on above: Performed By: #### M ALBR #### [facility] [address] [address] [address] Lucho De León CORRECTED WBC Normal 4.0-11.0 [facility] Comment on above: Performed By: #### M ALBR #### [facility] [address] [address] [address] Lucho De León EOS # 0.00 103/ul Normal 0.00-0.70 [facility] Comment on above: Performed By: #### M ALBR #### [facility] [address] [address] [address] Lucho De León EOS% 0.0 % Critically low 0.9-7.0 [facility] Comment on above: Performed By: #### M ALBR #### [facility] [address] [place] [address] Dr. Lucho De León HCT 20.0 % Critically low 42.0-54.0 [facility] Comment on above: Performed By: #### M ALBR #### [facility] [address] [place] [address] Dr. Lucho De León HGB 6.7 g/dl Critically low 14.0-18.0 [facility] Comment on above: Performed By: #### M ALBR #### [facility] [address] [place] [address] Dr. Lucho De León LYMPHM # 2.53 103/ul Normal 1.20-3.80 [facility] Comment on above: Performed By: #### M ALBR #### [facility] [address] [place] [address] Dr. Lucho De León LYMPHM% 17.0 % Critically low 20.5-60.0 [facility] Comment on above: Performed By: #### M ALBR #### [facility] [address] [place] [address] Dr. Lucho De [place] MCH 30.6 pg Normal 25.9-34.0 [facility] Comment on above: Performed By: #### M ALBR #### [facility] [address] [place] [address] Dr. Lucho De León MCHC 33.5 g/dl Normal 29.9-35.2 [facility] Comment on above: Performed By: #### M ALBR #### [facility] [address] [place] [address] Dr. Lucho De León MCV 91.3 fL Normal 80.0-94.0 [facility] Comment on above: Performed By: #### M ALBR #### [facility] [address] [place] [address] Dr. Lucho De León METAMYELOCYTE # Normal [facility] Comment on above: Performed By: #### M ALBR #### [facility] [address] [place] [address] Dr. Lucho De León METAMYELOCYTE % Normal [facility] Comment on above: Performed By: #### M ALBR #### [facility] [address] [place] [address] Dr. Lucho De León MONOM# 0.00 103/ul Critically low 0.30-0.80 [facility] Comment on above: Performed By: #### M ALBR #### [facility] [address] [place] [address] Dr. Lucho De León MONOM% 0.0 % Critically low 1.7-12.0 [facility] Comment on above: Performed By: #### M ALBR #### [facility] [address] [place] [address] Dr. Lucho De León MPV 10.9 fL Normal 9.5-13.5 [facility] Comment on above: Performed By: #### M ALBR #### [facility] [address] [place] [address] Dr. Lucho De León MYELOCYTE # Normal [facility] Comment on above: Performed By: #### M ALBR #### [facility] [address] [place] [address] Dr. Lucho De León MYELOCYTE % Normal [facility] Comment on above: Performed By: #### M ALBR #### [facility] [address] [address] [address] Lucho De León NRBC 2 Normal [facility] Comment on above: Performed By: #### M ALBR #### [facility] [address] [place] [address] Dr. Lucho De León PLT 214 103/ul Normal 150-450 [facility] Comment on above: Result Comment: Prev iously reported as: 69 On 03/26/2022 21:36 By [email or web address] Performed By: #### M ALBR #### [facility] [address] [place] [address] Dr. Lucho De León RBC 2.19 106/ul Critically low 4.70-6.10 [facility] Comment on above: Performed By: #### M ALBR #### [facility] [address] [place] [address] Dr. Lucho De León RDW 14.0 % Normal 11.0-15.0 [facility] Comment on above: Performed By: #### M ALBR #### [facility] [address] [place] [address] Dr. Lucho De León SEG # 12.07 103/ul Critically high 1.40-6.50 [facility] Comment on above: Performed By: #### M ALBR #### [facility] [address] [place] [address] Dr. Lucho De León SEG % 81.0 % Critically high 43.0-75.0 [facility] Comment on above: Performed By: #### M ALBR #### [facility] [address] [place] [address] Dr. Lucho De León WBC 14.9 103/ul Critically high 4.0-11.0 [facility] Comment on above: Performed By: #### M ALBR #### [facility] [address] [place] [address] Dr[address] [place]ón [address] ABD/PELV W [...] Date: 2022-03-26 05:29 Normal [facility]-16 SARS-CoV-2 (COVID-19) RNA IVANNA+probe Ql (Unsp spec) Not detected Normal NOT DETECTED [facility] Comment on above: Result Comment: When diagnostic [...] for this test is supported by the [place] of Health and Human Service's declaration that [...] By: #### C VDTB #### [facility] [address] [place] [address] Dr. Lucho De León ER URINE PROFILEon 2 Bilirubin Ql (U) Negative Normal NEGATIVE [facility] Comment on above: Performed By: #### A 1C #### [facility] [address] [place] [address] Dr. Lucho De León Clarity (U) CLEAR Normal CLEAR [facility] Comment on above: Performed By: #### A 1C #### [facility] [address] [place] [address] Dr. Lucho De León Color (U) LT. YELLOW Normal YELLOW [facility] Comment on above: Performed By: #### A 1C #### [facility] [address] [place] [address] Dr. Lucho Hightower micrscopic examination will be performed if indicated. Normal [facility] Comment on above: Performed By: #### A 1C #### [facility] [address] [place] [address] Dr. Lucho De León Glucose Ql (U) >1000 Abnormal NEGATIVE [facility] Comment on above: Performed By: #### A 1C #### [facility] [address] [place] [address] Dr. Lucho De León Hemoglobin Ql (U) Negative Normal NEGATIVE [facility] Comment on above: Performed By: #### A 1C #### [facility] [address] [place] [address] Dr. Lucho De León Ketones Ql (U) 15 mg/dl Abnormal NEGATIVE [facility] Comment on above: Performed By: #### A 1C #### [facility] [address] [place] [address] Dr. Lucho De León LEUKOCYTES Negative Normal NEGATIVE [facility] Comment on above: Performed By: #### A 1C #### [facility] [address] [place] [address] Dr. Lucho De León Nitrite Ql (U) Negative Normal NEGATIVE [facility] Comment on above: Performed By: #### A 1C #### [facility] [address] [place] [address] Dr. Lucho De León pH (U) 5.0 [pH] Normal 5-9 [facility] Comment on above: Performed By: #### A 1C #### [facility] [address] [place] [address] Dr. Lucho De León SPEC GRAVITY <=1.005 Abnormal 1.005-<=1.025 [facility] Comment on above: Performed By: #### A 1C #### [facility] [address] [place] [address] Dr. Lucho De León UA PROTEIN Negative Normal NEGATIVE/ TRACE [facility] Comment on above: Performed By: #### A 1C #### [facility] [address] [place] [address] Dr. Lucho De León UR MICRO IND NOT INDICATED Normal [facility] Comment on above: Performed By: #### A 1C #### [facility] [address] [place] [address] Dr. Lucho De León Urobilinogen Qn (U) 0.2 {Danny'U}/dL Normal 0.2 - 1. 0 [facility] Comment on above: Performed By: #### A 1C #### [facility] [address] [place] [address] Dr. Lucho De León LIPASEon 03-26-2022 Lipase [Catalytic activity/Vol] 69.0 U/L Critically low 73.0-393.0 [facility] Comment on above: Performed By: #### C BC #### [facility] [address] [place] [address] Dr. Lucho De León OCC BLD IMMUNO SCREENon 03-16 OCCULT BLOOD Positive Abnormal NEGATIVE [facility] Comment on above: Performed By: #### H GBHCT #### [facility] [address] [place] [address] Dr. Lucho De León POINT OF CARE GLUCOSEon 03-16 Glucose [Mass/Vol] 271 mg/dL Critically high 74-106 T [facility] Comment on above: Performed By: #### B MP #### [facility] [address] [place] [address] Dr. Lucho De León PROF 14(COMP METB)on 022 Albumin [Mass/Vol] 2.7 g/dL Critically low 3.4-5.0 [facility] Comment on above: Performed By: #### C VDTBH #### [facility] [address] [place] [address] Dr. Lucho De León ALP [Catalytic activity/Vol] 53 U/L Normal 46-116 [facility] Comment on above: Performed By: #### C VDTBH #### [facility] [address] [place] [address] Dr. Lucho De León ALT [Catalytic activity/Vol] 18 U/L Normal 16-63 [facility] Comment on above: Performed By: #### C VDTBH #### [facility] [address] [place] [address] Dr. Lucho De León Anion gap [Moles/Vol] 18.7 mmol/L Normal [facility] Comment on above: Performed By: #### C VDTBH #### [facility] [address] [place] [address] Dr. Lucho De León AST [Catalytic activity/Vol] 14 U/L Critically low 15-37 [facility] Comment on above: Performed By: #### C VDTBH #### [facility] [address] [place] [address] Dr. Lucho De León Bilirubin [Mass/Vol] 0.2 mg/dL Normal 0.2-1.0 [facility] Comment on above: Performed By: #### C VDTBH #### [facility] [address] [address] [address] Lucho De León Chloride [Moles/Vol] 99 mmol/L Normal 98-107 [facility] Comment on above: Performed By: #### C VDTBH #### [facility] [address] [address] [address] Lucho De León CO2 [Moles/Vol] 18.3 mmol/L Critically low 21.0-32.0 [facility] Comment on above: Performed By: #### C VDTBH #### [facility] [address] [place] [address] Dr. Lucho De León Creatinine [Mass/Vol] 0.75 mg/dL Normal 0.70-1.30 [facility] Comment on above: Performed By: #### C VDTBH #### [facility] [address] [place] [address] Dr. Lucho De León Globulin (S) [Mass/Vol] 2.6 g/dL Normal [facility] Comment on above: Performed By: #### C VDTBH #### [facility] [address] [place] [address] Dr. Lucho De León Glucose [Mass/Vol] 323 mg/dL Critically high 74-106 T [facility] Comment on above: Performed By: #### C VDTBH #### [facility] [address] [place] [address] Dr. Lucho De León Potassium [Moles/Vol] 5.0 mmol/L Normal 3.5-5.1 [facility] Comment on above: Performed By: #### C VDTBH #### [facility] [address] [place] [address] Dr. Lucho De León Protein [Mass/Vol] 5.3 g/dL Critically low 6.4-8.2 [facility] Comment on above: Performed By: #### C VDTBH #### [facility] [address] [place] [address] Dr. Lucho De León Sodium [Moles/Vol] 131 mmol/L Critically low 136-145 [facility] Comment on above: Performed By: #### C VDTBH #### [facility] [address] [place] [address] Dr. Lucho De León Urea nitrogen [Mass/Vol] 65.0 mg/dL Critically high 7.0-18.0 [facility] Comment on above: Performed By: #### C VDTBH #### [facility] [address] [place] [address] Dr. Lucho De León Urea nitrogen/Creatinine [Mass ratio] 86.7 mg/mg Normal [facility] Comment on above: Performed By: #### C VDTBH #### [facility] [address] [place] [address] Dr. Lucho De León Albumin [Mass/Vol] 3.0 g/dL Critically low 3.4-5.0 [facility] Comment on above: Performed By: #### C BC #### [facility] [address] [place] [address] Dr. Lucho De León Albumin/Globulin [Mass ratio] 1.0 {ratio} Normal [facility] Comment on above: Performed By: #### C VDTBH #### [facility] [address] [place] [address] Dr. Lucho De León Performed By: #### C BC #### [facility] [address] [place] [address] Dr. Lucho De León ALP [Catalytic activity/Vol] 64 U/L Normal 46-116 [facility] Comment on above: Performed By: #### C BC #### [facility] [address] [place] [address] Dr. Lucho De León ALT [Catalytic activity/Vol] 20 U/L Normal 16-63 [facility] Comment on above: Performed By: #### C BC #### [facility] [address] [place] [address] Dr. Lucho De León Anion gap [Moles/Vol] 14.2 mmol/L Normal [facility] Comment on above: Performed By: #### C BC #### [facility] [address] [place] [address] Dr. Lucho De León AST [Catalytic activity/Vol] 11 U/L Critically low 15-37 [facility] Comment on above: Performed By: #### C BC #### [facility] [address] [address] [address] Lucho De León Bilirubin [Mass/Vol] 0.3 mg/dL Normal 0.2-1.0 [facility] Comment on above: Performed By: #### C BC #### [facility] [address] [place] [address] Dr. uLcho De León Calcium [Mass/Vol] 8.3 mg/dL Critically low 8.5-10.1 [facility] Comment on above: Performed By: #### C VDTBH #### [facility] [address] [place] [address] Dr. Lucho De León Performed By: #### C BC #### [facility] [address] [place] [address] Dr. Lucho De León Chloride [Moles/Vol] 102 mmol/L Normal 98-107 [facility] Comment on above: Performed By: #### C BC #### [facility] [address] [place] [address] Dr. Lucho De León CO2 [Moles/Vol] 23.4 mmol/L Normal 21.0-32.0 [facility] Comment on above: Performed By: #### C BC #### [facility] [address] [place] [address] Dr. Lucho De León Creatinine [Mass/Vol] 0.81 mg/dL Normal 0.70-1.30 [facility] Comment on above: Performed By: #### C BC #### [facility] [address] [place] [address] Dr. Lucho De León EGFR-AF HAITIAN >60 Normal >=60 [facility] Comment on above: Performed By: #### C VDTBH #### [facility] [address] [place] [address] Dr. Lucho De León Performed By: #### C BC #### [facility] [address] [place] [address] Dr. Lucho De León EGFR-NON AF HAITIAN >60 Normal >=60 [facility] Comment on above: Performed By: #### C VDTBH #### [facility] [address] [place] [address] Dr. Lucho De León Performed By: #### C BC #### [facility] [address] [place] [address] Dr. Lucho De León Globulin (S) [Mass/Vol] 3.0 g/dL Normal [facility] Comment on above: Performed By: #### C BC #### [facility] [address] [place] [address] Dr. Lucho De León Glucose [Mass/Vol] 261 mg/dL Critically high 74-106 T [facility] Comment on above: Performed By: #### C BC #### [facility] [address] [place] [address] Dr. Lucho De León Potassium [Moles/Vol] 4.6 mmol/L Normal 3.5-5.1 [facility] Comment on above: Performed By: #### C BC #### [facility] [address] [place] [address] Dr. Lucho De León Protein [Mass/Vol] 6.0 g/dL Critically low 6.4-8.2 [facility] Comment on above: Performed By: #### C BC #### [facility] [address] [place] [address] Dr. Lucho De León Sodium [Moles/Vol] 135 mmol/L Critically low 136-145 [facility] Comment on above: Performed By: #### C BC #### [facility] [address] [place] [address] Dr. Lucho De León Urea nitrogen [Mass/Vol] 56.0 mg/dL Critically high 7.0-18.0 [facility] Comment on above: Performed By: #### C BC #### [facility] [address] [place] [address] Dr. Lucho De León Urea nitrogen/Creatinine [Mass ratio] 69.1 mg/mg Normal [facility] Comment on above: Performed By: #### C BC #### [facility] [address] [place] [address] Dr. Lucho De León PROTIMEon 03-26-2022 INR Coag (PPP) [Relative time] 0.99 {INR} Normal [facility] Comment on above: Performed By: #### M ALBR #### [facility] [address] [place] [address] Dr. Lucho De León INR GUIDELINES SEE BELOW Normal [facility] Comment on above: Result Comment: HANS RED INR: 2.0 - 3.0 CONDITIONS NOT LISTED BELOW 2.5 - 3.5 FOR PROSTHETIC HEART VALVE REPLACEMENT 2.5 - 3.5 RECURRENT THROMBOSIS Performed By: #### M ALBR #### [facility] [address] [address] [address] Lucho De León PT Coag (PPP) [Time] 10.7 s Normal 9.0-11.6 [facility] Comment on above: Performed By: #### M ALBR #### [facility] [address] [place] [address] Dr. Lucho De León PTTon 03-26-2022 aPTT Coag (Bld) [Time] 20.8 s Critically low 22.3-36.2 [facility] Comment on above: Performed By: #### M ALBR #### [facility] [address] [place] [address] Dr. Lucho De León XR ABD FLAT [...] Date: 2022-03-26 05:15 Normal [facility] Coding Summaryon 11-08-2021 Coding Summary HTMLBase 64 ImptmrxfHCw9fMy+PGhl YWQ+TQ7ZKXDrO22fnXAi yX0GN6rKDV4HTRFTIUCX WX5FZH1spHL9XHupS2Ie biAv AlafhIUqYQ70QBz4SUE4 yGcxZElnmY4dgCTyO3c5 YyPeVU88pM75FPjzHUWw ZbL4PtBkfnlqaEGs Z4baTdVcwKQeKtz+PHRh YmxlIHdpZHRoPScxMDAl RaGxnOlrLW6eYw9pJJJe LWNvbGxhcHNlOiBj w4ygUNDtUYzkCY3wsOhw D4VvtLA3USCxt6e3Ci33 dHI+LMLpAPE8oFcvIJdr m432WlSaj6qsIZY6 aVXnFMneUHJ6H40yc3Z9 VSSnIJJuWMV2qZR5bV1l pBdwzcwyI0HreCObIuB0 TQR6mHWrfY4tcKoa pqfnhO5hAbo+H67DDU6G FJICET9XSti3K1SkOnst dHI+VO05BUQdON45rHPx bPDmj6gdrTm9BeNo BBVaEYW3uAwjIFoqy3Sp AJAgT28ukZFlg7Z8VDRw hMgowDThXaLbvRD4vC7v GNelzlisv3rsalci Revcq1zlgt36kO21B33m RSfnAAKgDFV0SZItMCYh tZiqiz9leD3uFk8+IDxj a1ksm0juoWk3UwYy LJVcdkEknQwuMNU8d7Eo Me75Y7KwnPhho2XnZjz0 ln86xPDyu1T8nKB2PGof AVVofO9uNYxhBjP5 YUSaDwQagA81eWWuAMbt Fl7mdVubqMbrIB9yAFZp qvthRTYezY2aZNAyfBTb wNciVW5eIGOzvoxa h454GwVdVJG3KARieSKi R8CzyM5qPqZkCVOdSOLe C7ScvRSySBazW302VCqk UbW3ILQgpgPpZ7Wc PVUvmRheYpU2m4Z3Tu8G q4RxuntxCBB4ZXsbJDNk KpM5EiGnWvE3Q2RmVhh6 EXJrhAxjLE5gF5Yj LDYfcqvxnideoGR7VYFm GMOupC39tLDeJGjoEo7j r5X2o912BSXpCJWvqF41 Mj2jdCrjEWDlyJRF tG4uuwzbd1kbtmbrKpRh AYLkMXz8ZAf4GGBktDbt AaMbSJE0UsA8QQR9nSYh qE6weAbnktnprP9m Oyc+T32heO5iNWL5UHT2 yaljYRXcawMmSP51LM69 N6JgAdbvySAcwDZ+PGRp tbTtyBynJF4iRxFm w9ewb4BpTOhzV9TzSNRp VMiwVyb0PWYrXNU6fJW2 wF6kARLeKYjdw8I6uRK4 C2QwhdGsjy9ny8ef RGOjDZxgY14jlAJoj0Y4 DGQolJM9PUApcVcuLlDm cX82Oar+XLAqvNfde5Pc Bybbm7exi2dsqYn2 IjMwJSIgdmFsaWduPSJ0 r2NoJk15D24kRQswGUXl THAeQZQcHLSyuCkzbn2g qZ2mTg4+PGNvbCB3 gWR5xN7dQOUzEtD8TXzq S210TfVbdAQeZokci2ni n7dkpBl3QuHxJMHeyjUd eQtkBEF5b0KdRp35 N07cVQilXRHbKVLsKSGl COMkkKfame0nsJ0rTt2+ ZP9yi6cfoh93dD44fUM+ AFVqXZB0lCurPMtd GQXuiH4fRHwkKjY7XHUr SqPomM06xMEsZWkvAo0q tHquoDgdHQ6uNJHhgutt s436AzSby8avEJQi nHQmTMqxSIZ2W44la3Z4 ZZAsNUFeNYA6pXO1hV4a bGlnbjogbGVmdDsgdmVy eTbmLBrqETabW283 IHRvcDsnPlBhdGllbnQg MhPjAWd7K1AfDsu8AUIp sZyvSG1utVGfIFnmPp9j nBykwGfxKW2lUTWo jzydf534VsBzn6vqQMHr hEMfZZrnCGO8M68xe4W5 SSHqBJMuADL4gFQ4aS3o bGlnbjogbGVmdDsg keCytYsrRNhfDEmqS920 IHRvcDsnPkJpcnRoIERh aNP4IH66ZO74nQHnd5B2 bPX4U9LaJEGsosan mmlmdJO6PDJbEMMsrX70 Ha4lyQxwNg3yYFUiQJE8 SRJidTWaM5XonT6kPtVo WUKxNTIpQ3SatPAi PAudD335OLajXfS9QJPt hjWsG5EfECYkjIbdPvO2 t3N4Pc7IO6O1RK92IK15 qQZkh8T9eSY6V2Qy ILDbpoutcmzydYU7MRMe ORQaiK23Sq4pkMqrRw9b LHVqSDL3TWPdxIYjK9Hp mX7xLfAjGUPsMLXm Z3NzqZSzCHwoR708HKif EqZ0JRNdjdGiE8OdZRDn jQmzZlD2y0P7Fh2VEVq0 GG72KV24hKJtk3G2 wIE1Q1JoWKIxcqqovyvq vZL0JKPoQTBldA46Mh8u fZtrMg3fGRGaBQC2BWUn yWIrU1IsjU4yGyGs GPRiAGIeG4KauLFaOZru I725WNfdJnR9QJMxrjZw B9XiGDTjuAilEiQ5c1Z2 Nd1PGTYpYG59LQS2 iZH7TR12GT27U9MxKbiw dGFibGU+PHRhYmxlIHdp ZHRoPScxMDAlJyBzdHls ZV3mVn6uKYGzMBXj kEzdeRFyNpDsk4tuEISe PJwbWW0jmUxgP2HtpCU9 VXWoa1i9Gc57H23sU4Jv dXA+CNOyfNH4wDW2 qB7rObFmCuA7MCnyP728 NxKmyLXrSzlqf1dxk0ku wAh6YnW0GVAvnvGvcStu IKL5g0MvAm56E14f IHdpZHRoPSIxNSUiIHZh bStnjt7jdF4fSv4+PGNv wVZ7xWX9tM5xDeOyCxL1 FDlpW027XxDriVTr Ulqrr3wer0vozYe2CfTf RIMvzsUwpUpwPID8m0Bm Mj23Z1OmbAkre2AcLbp5 ep23nCAgs9N9qZS5 W6QkHFBxrmknaFCepFvs HU7tJEPuecduPHFgoG5u CRNiA6y9KvTpEkM9GWxl H9XzwvE4AZQonLOd ZSqaREU3W84pv4N1DCGb PHTwPQT6vSB3aY3ugCxo bjogbGVmdDsgdmVydGlj QAsvPKvlN548AUCr aBxtGAZzgG3bBZNhjFEq nMneBT8nABCctjxzFkDZ TklPTiwgVEVERFkgSjwv dGQ+MOYnHAE4wPxi OUodUYBtqQ5fIYJqG5h8 RoEgWsP3CPtnA2KtSHXk rjxgWv75bM0oDlMpZyJ6 XNpzF6YypyA2GLSf vHSgDEkbRHS8F88xo0O8 UPLiQROaNYI8mCN2lD6l bGlnbjogbGVmdDsgdmVy kHarGHeyDSmtB247 EMRzfTmcBsK2MaMnKcQ5 PHD3U2BfPfa9REJvlOfs TK0ugVDlRHgkUo0ljBhx lXbfUX2cVCYhdjiq TPOysY6gCJMtvAIraWfh YE9qGCEfgejjc932GhGd LQV1VZLbyIJsU1IqdF7u NdIbKCBaALMhX4Ig hQXaDUyrN069YDpkMwL5 CEYpnvTvL0ZtNLWhmLvb EsN0r4S9Mg48WMTZGYDd czwvdGQ+PHRkIHN0 vLqfGPgnWZGxbB2sWLVe J1m2RvUsAbM6VVpkO9Bp XTXujyxgUv13eZ0uIxAf OiW1OFbaA6JrkeX7 TFKvaJBtPOhuUFF9V87s b4N4GVTyYJOyKUC3bBL9 iA3itSlichkyzXUpyUtc dmVydGljYWwtYWxp P626HJKzxQtsQk1NTVM3 J6DyIui0TTEpvXpqLT1k cPDqVCgbOk1kpNfznQze AJ3zUQUjzbqnJYIv oP3xUSEeeDXlyGrvRJ1d FUMslsqdj695EmVaBHU6 XHVmnWXnS8YeeS4rYdYk TSJnCALrZ3ZzrZAr QXckK681OGqkRiB5ZCCn tbDeM2EaIQMbwYqxAxJ9 j3B8Qh9UIAyjoXQ+PC90 in74U1ZdWmojWmw1 KZClQHH9gGL8pP2nASNj KBhga5A6dSV3M6ActeRh gk9ur1gkNRHzNMjdK79a lICiq7P3OKAytYC6 VFTgcEglNdUnoP43Xvj+ ZNVshAmzd4UfHdyiz6oe j3zrkJt4NfLaYNNbmpKi cNgyXWH2g1LwWs81 K22pCRztXXVmTROlEVLy IQEhlBywov1vtC1yMh5+ EAYfwIB6sZF1mE5vMrAc PcW6JArmQ356LzDp aBYzEotfd2zxr3qhuBs4 IjIwJSIgdmFsaWduPSJ0 d0SnWe16H7LacCxrw6Gt Wgy6xd18wCIux3Z9 cWL8G3BrEZFtsgmiqLGq tRaoUP9pBOIomposVKZd eJ7vRCNdF8f6KnYzLgA5 XByfB8MsqqL3THMo fVSyMVCaxHRDfT6waehu b4pdkxdaKvJwTMOvLYl5 WLy5YAXxcPaoNwJcMXG9 OzB4BRU8pTSlbE9g hNcibmslbL1wCxm+UGh5 q3kmjDEqYL4wfRM6RJ36 YB78kUYmn1U9sYC6R6Rq ZGRpbmctcmlnaHQ6 XHUlARHoqC97Fa6tsRgd Mo5vWYQgVCC1NRLxjKZf X7VurZ4bCfJmPSYzWRYu P1IsyBGaQObcO240 CCfkKcC9EFXltmTxH7Ws VPPbcTdcKqO3y4H1Nb3Z KR29GS13XF19nZCsh7H6 vEI9Z7MyPTFuwsyy xmufmOX2VNNaLABlkM48 Mb4ueEypHk3oCVEnWEX2 CDWnrZLxN5GfrM0bEwJu WGQoEKGqT5MxbXGf NXdiM556OApuPsR4UFYj vxSkZ5VwIOFapKzyIzX7 g6K9Ev3INn11XU81SE88 fJOnf3S7xOE3D0Um RQCwdzpqfxvcuUA2XPXs UFIatQ89Yh5euFrqWe4r VOSiOPQ9GDPweFSvG4Fu hO4sGfMrOMYmPERk R7RpkSXbMFemS449RUkr DxZ4WCKsbfUuH0ScOOFk wUntVrB3t6R9Zu4GHNrj zzt8K3FjAgpnmXY+ RJ23FZHxLF73hIGpcYTj z8ottAd1TiFkSWFsDSJ1 fNtcCUiaf3XwLLElM30g eGWjl4J7WIMqiKhj N (more content not included)... [facility] Provider Orderson 11-04-2021 Provider Orders [id number] [facility] Vital Signs Date Time Vital Sign Value Performing Clinician Facility 11-29-2023 15:28-0500 Body height 170.2 cm Tonya Hardik ETL ANALYST DEVELOPER Work Phone: [facility] 11-29-2023 15:28-0500 Body mass index (BMI) [Ratio] 28.54 kg/m2 Tonya Hardik ETL ANALYST DEVELOPER Work Phone: [facility] 11-29-2023 15:28-0500 Body temperature 97.11 [degF] Tonya Hardik ETL ANALYST DEVELOPER Work Phone: [facility] 11-29-2023 15:28-0500 Body weight 82.64 kg Tonya Hardik ETL ANALYST DEVELOPER Work Phone: [facility] 11-29-2023 15:28-0500 Diastolic blood pressure 80 mm[Hg] Tonya Hardik ETL ANALYST DEVELOPER Work Phone: [facility] 11-29-2023 15:28-0500 Heart rate 99 /min Tonya Hardik ETL ANALYST DEVELOPER Work Phone: [facility] 11-29-2023 15:28-0500 Respiratory rate 20 /min Tonya Hardik ETL ANALYST DEVELOPER Work Phone: [facility] 11-29-2023 15:28-0500 SaO2% (BldA) [Mass fraction] 97 % Tonya Dye ETL ANALYST DEVELOPER Work Phone: [facility] 11-29-2023 15:28-0500 Systolic blood pressure 138 mm[Hg] Tonyakatja Dye ETL ANALYST DEVELOPER Work Phone: [facility] 08-30-2022 14:47-0500 Blood Pressure Location Bernadine GUAJARDOL Aneumed [facility] [place] 08-30-2022 14:47-0500 Diastolic blood pressure 82 mm[Hg] Bernadine GUAJARDOL [facility] [place] 08-30-2022 14:47-0500 Heart rate 76 /min Bernadine GUAJARDOL [facility] [place] 08-30-2022 14:47-0500 Respiratory rate 16 /min Bernadine GUAJARDOL [facility] [place] 08-30-2022 14:47-0500 Systolic blood pressure 138 mm[Hg] Bernadine GUAJARDOL [facility] [place] 08-19-2021 14:30-0400 Body height 170.18 cm Shen Olexa Other [employer] Other 08-19-2021 14:30-0400 Body mass index (BMI) [Ratio] 31.04 kg/m2 Shen Olexa Other [employer] Other 08-19-2021 14:30-0400 Body weight 89.9 kg Shen Olexa Other [employer] Other 07-29-2021 14:30-0400 Body height 170.18 cm Shen Olexa Other [employer] Other 07-29-2021 14:30-0400 Body mass index (BMI) [Ratio] 31.32 kg/m2 Shen Olexa Other [employer] Other 07-29-2021 14:30-0400 Body weight 90.72 kg Shen Olexa Other [employer] Other Encounters Encounter Date Encounter Type Care Provider Facility Start: 02-27-2024 End: 02-27-2024 ambulatory TONYA AICHHOLZ Not Available Start: 02-08-2024 End: 02-08-2024 ambulatory LYNN H TIMMIS Not Available Start: 02-08-2024 End: 02-08-2024 ambulatory [facility] Start: 01-16-2024 End: 01-16-2024 ambulatory TONYA AICHHOLZ Not Available Start: 01-15-2024 End: 01-15-2024 ambulatory LYNN H TIMMIS Not Available Start: 01-03-2024 End: 01-03-2024 ambulatory RANULFO VÁSQUEZFAY Not Available Start: 12-27-2023 End: 12-27-2023 ambulatory Ranulfo Bagley Facility:[facility] Start: 12-26-2023 End: 12-26-2023 ambulatory RANULFO VÁSQUEZFAY Not Available Start: 12-20-2023 End: 12-20-2023 ambulatory Ranulfo Bagley Facility:[facility] Start: 12-18-2023 End: 12-18-2023 ambulatory LYNN H TIMMIS Not Available Start: 11-29-2023 End: 11-29-2023 ambulatory TONYA AICHHOLZ Not Available Start: 11-29-2023 End: 11-29-2023 Office outpatient visit 25 minutes Tonya Aichholz ETL ANALYST DEVELOPER Work Phone: [facility] Comment on above: Primary hypertension (CMS/[facility]) (Primary Dx); BMI 29.0-29.9,adult; Type 2 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, without long-term current use of insulin, unspecified laterality, unspecified retinopathy severity (CMS/HCC); Type 2 diabetes mellitus with diabetic neuropathy, without long-term current use of insulin (CMS/[facility]); Sebaceous cyst; 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; Ageusia; Peripheral vascular disease, unspecified (I73.9) Start: 11-29-2023 Bamboo flowsheet Tonya Aichholz ETL ANALYST DEVELOPER Work Phone: [facility] Start: 11-29-2023 Bamboo flowsheet Tonya Aichholz ETL ANALYST DEVELOPER Work Phone: [facility] Start: 10-31-2023 End: 10-31-2023 ambulatory RANULFO C LAFFAY Not Available Start: 10-31-2023 Preprocedural examination done Tonya Dye ETL ANALYST DEVELOPER Work Phone: [facility] Start: 10-24-2023 Office outpatient vi sit 15 minutes [facility] Start: 10-24-2023 End: 10-24-2023 ambulatory Tonya Dye Work Phone: [facility] Work Phone: Start: 10-24-2023 End: 10-24-2023 Patient encounter procedure Tonya Hardik Work Phone: [facility] Start: 09-15-2023 End: 09-16-2023 ambulatory KRISHNA VALDES Not Available Start: 01-31-2023 End: 02-01-2023 ambulatory OLI DYE Facility:[facility] Start: 01-27-2023 End: 01-28-2023 ambulatory OLI DYE Facility:[facility] Start: 12-21-2022 End: 12-22-[address] OMID RICKS Facility:[facility] Start: 11-20-2022 Encounter for other preprocedural examination MR KRISHNA VALDES . [facility] Start: 11-18-2022 End: 11-19-2022 ambulatory MR KRISHNA VALDES . Facility:[facility] Start: 11-18-2022 End: 11-19-2022 Encounter for other preprocedural examination MR KRISHNA VALDES . Facility: Start: 10-25-2022 End: 10-26-2022 ambulatory Bernadine PLATT Facility:[facility] Start: 10-25-2022 End: 10-25-2022 Patient encounter procedure [facility]adine PLATT [facility] Start: 10-12-2022 End: 10-13-2022 ambulatory Bernadine PLATT Facility:[id number] Start: 10-07-2022 ambulatory OLI MYERSA HARDIK [facility] ity:[facility] Start: 09-22-2022 End: 09-23-2022 ambulatory OLI [...] 12-16-2021 End: 12-16-2021 ambulatory Shen Olexa Other [employer] Other Start: 12-16-2021 Telephone encounter Shen Janelle [facility] Start: 12-14-2021 End: 12-14-2021 ambulatory Shen Olexa Other [employer] Other Start: 12-14-2021 Office outpatient vi sit 15 minutes Shen Olexa [facility] [place] Start: 08-19-2021 End: 08-19-2021 ambulatory Shen Olexa Other [employer] Other Start: 08-19-2021 Office outpatient vi sit 10 minutes Shen Olexa [facility] Start: 08-11-2021 Telephone encounter Krishna Bach rg [facility] Start: 07-29-2021 Office outpatient ne w 30 minutes Shen Luis [facility] Procedures Date Procedure Procedure Detail Performing Clinician Start: 10-24-2023 Plain X-ray of bilat eral elbows Tonya Dye Work Phone: Start: 01-27-2023 PSA screening OLI DYE Comment on above: Performed By: #### B MP #### [facility] [address] [place] [address] Dr. Lucho De León Start: 10-12-2022 Excisional biopsy Blair PLATT Start: 03-28-2022 Inspection of Lower Intestinal Tract, Via Natural or Artificial Opening Endoscopic MARKETING OPERATIONS INTERN TONYA DYE Start: 03-28-2022 Inspection of Upper Intestinal Tract, Via Natural or Artificial Opening Endoscopic [employer] INTERN TONYA DYE Start: 03-26-2022 Transfusion of Nonau tologous Red Blood Cells into Peripheral Vein, Percutaneous Approach [employer]ETING [employer]PER[employer] INTERN TONYA DYE Start: 11-10-2021 Endarterectomy and angioplasty of common femoral artery Bernadine PLATT Start: 03-09-2021 Angioplasty of super ficial femoral artery Bernadine PLATT Start: 10-16-2016 Colonoscopy Tonya myers NP Work Phone: Repair of musculoten dinous cuff of shoulder Bernadine PLATT Plan of Treatment Date Care Activity Detail Author Start: 10-16-2026 Screening for malign ant neoplasm of colon [facility] Start: 11-22-2024 Glaucoma screening Diabetes: R etinopathy Screening [facility] Start: 02-27-2024 End: 02-27-2024 Patient encounter procedure 02/27/2024 3:00 PM EDT Office Visit [facility] [address] [place] [address] Tonya Dye NP [address] [place] [address] [facility] Start: 01-28-2024 Urine screening for protein Diabetes: Urine Protein Screening [facility] Start: 11-29-2023 End: 11-29-2023 Patient encounter procedure 11/29/2023 3:20 PM EST [facility] [address] [place] [id number] Tonya Dye NP [address] [place] [phone] Arrived [facility] Comment on above: Arrived Start: 11-29-2023 End: 11-29-2024 CT Maxillofacial region WO and W contrast IV CT SINUS WO IV CONTRAST Imaging Routine 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 Ageusia Expected: 11/29/2023 (Approximate), Expires: 11/29/2024 [facility] Comment on above: Expected: 11/29/2023 (Approximate), Expires: 11/29/2024 Start: 11-29-2023 Hemoglobin A1c measurement Diabetes: Hemoglobin A1C [facility] Start: 11-29-2023 End: 11-29-2024 Hemoglobin A1c/Hemoglobin.total in Blood Hemoglobin A1c Lab Routine Type 2 diabetes mellitus with diabetic neuropathy, without long-term current use of insulin ([facility]) Expected: 11/29/2023 (Approximate), Expires: 11/29/2024 [facility] Work Phone: Comment on above: Expected: 11/29/2023 (Approximate), Expires: 11/29/2024 Start: 04-15-2023 Glaucoma screening Diabetes: R etinopathy Screening [facility] Start: 1950 Medicare Annual Well ness (AWV) Medicare Annual Wellness (AWV) [facility] Start: 1950 Screening for malign ant neoplasm of colon [facility] Immunizations Immunization Date Immunization Notes Care Provider Fa cili 08-03-2023 Influenza, High-dose Seasonal, Quadrivalent, Preservative Free Tonya Dye NP Work Phone: [facility] 12-17-2022 zoster vaccine recombinant Tonya Aichholz ETL ANALYST DEVELOPER Work Phone: [facility] 07-27-2022 influenza, injectabl e, quadrivalent, preservative free Tonya Aichholz ETL ANALYST DEVELOPER Work Phone: [facility] 07-29-2021 Kenalog -40 mg Shen Olexa Other [employer] Other 12-24-2020 COVID-19 Ad26.COV2.S (Venkatesh) Tonya Aichholz Work Phone: [facility] 09-07-2020 pneumococcal polysaccharide vaccine, 23 valent Shen Olexa Other [employer] Other 06-30-2020 influenza, injectabl e, quadrivalent, preservative free Tonya Aichholz ETL ANALYST DEVELOPER Work Phone: [facility] 06-30-2020 influenza, seasonal, injectable Shen Olexa Other [employer] Other 08-07-2019 pneumococcal conjuga te vaccine, 13 valent Shen Olexa Other [employer] Other 07-25-2019 influenza, high dose seasonal, preservative-free Tonya Aichholz ETL ANALYST DEVELOPER Work Phone: [facility] 08-26-2017 zoster vaccine, live Tonya chholz ETL ANALYST DEVELOPER Work Phone: [facility] 08-01-2003 tetanus toxoid, adsorbed Tonya Aichholz ETL ANALYST DEVELOPER Work Phone: [facility] Payers Date Payer Category Payer Self-pay [id number] 2017 Unknown GENERIC OTHER GE NERIC OTHER [id number] 2017-Present [phone] [id number] [facility] [place] [address] [id number]. [id number] 2016 Medicare MEDICARE MEDICAR E PART B [id number] 2016-[place] [place] [address] Medicare [id number]. [id number] 1959 Medicare [id number] 2.16.840.1.458326.19 1959 Unknown [id number] 2.16.840.1.486116.19 1951 Unknown [id number] 2.16.840.1.824915.3.579.2.72 7 1951 Unknown [id number] 2.16.840.1.903343.3.579.2.72 7 1951 Unknown [id number] 2.16.840.1.343418.3.579.2.72 7 1951 Unknown [id number] 2.16.840.1.030493.3.579.2.72 7 1951 Unknown [id number] 2.16.840.1.816414.3.579.2.59 3 1951 Unknown [id number] 2.16.840.1.190411.3.579.2.59 3 1951 Unknown [id number] 2.16.840.1.895198.3.579.2.59 3 1951 Unknown [id number] 2.16.840.1.305717.3.579.2.59 3 1951 Unknown [id number] 2.16.840.1.550818.3.579.2.59 3 1951 Unknown [id number] 2.16.840.1.214324.3.579.2.59 3 1951 Unknown [id number] 2.16.840.1.012728.3.579.2.59 3 1951 Unknown [id number] 2.16.840.1.027954.3.579.2.59 3 1951 Unknown [id number] 2.16.840.1.479238.3.579.2.59 3 1951 Unknown [id number] 2.16.840.1.904122.3.579.2.59 3 1951 Unknown [id number] 2.16.840.1.920143.3.579.2.59 3 1951 Unknown [id number] 2.16.840.1.362001.3.579.2.59 3 1951 Unknown [id number] 2.16.840.1.200908.3.579.2.59 3 1951 Unknown [id number] 2.16.840.1.456397.3.579.2.59 3 1951 Unknown [id number] 2.16.840.1.706663.3.579.2.12 86 1951 Unknown [id number] 2.16.840.1.574265.3.579.2.12 59 1951 Unknown [id number] 2.16.840.1.857060.3.579.2.12 59 1951 Unknown [id number] 2.16.840.1.845898.3.579.2.12 59 1951 Unknown [id number] 2.16.840.1.255798.3.579.2.12 59 1951 Unknown [id number] 2.16.840.1.867156.3.579.2.12 59 1951 Unknown [id number] 2.16.840.1.472289.3.579.2.12 59 1951 Unknown [id number] 2.16.840.1.891125.3.579.2.12 59 1951 Unknown [id number] 2.16.840.1.942045.3.579.2.12 59 1951 Unknown [id number] 2.16.840.1.513611.3.579.2.12 59 1951 Unknown [id number] 2.16.840.1.421171.3.579.2.12 59 1951 Unknown [id number] 2.16.840.1.873412.3.579.2.12 59 1951 Unknown [id number] 2.16.840.1.139437.3.579.2.12 59 Unknown [employer] [id number] Unknown HCAP/HFA/FAP Active [id number] Unknown [id number] 2.16.840.1.182749.3.579.2.53 1 Unknown [id number] 2.16.840.1.292854.3.579.2.53 1 Unknown [id number] 2.16.840.1.090185.3.579.2.53 1 Social History Date Type Detail Facility Start: 10-31-2023 End: 11-29-2023 Sex Assigned At [facility] Start: 08-30-2022 Tobacco smoking status Heavy t obacco smoker (finding) [facility] Tobacco smoking status Never [facility] [place] Start: 03-14-2021 [facility] Start: 1950 Sex Assigned At [facility] Start: 10-30-2023 [facility] History of tobacco use Cigarette Smoker [facility] Start: 10-30-2023 End: 11-29-2023 Cigarettes smoked current (pack per day) - Reported 1 [facility] Start: 10-30-2023 Tobacco use and exposure Smokeless tobacco non-user [facility] Start: 11-29-2023 Alcohol intake Lifetime non-d heath (finding) [facility] Start: 1950 Sex Assigned At Not on file N [facility] Medical Equipment Procedure Code Equipment Code Equipment Origin al Text Equipment Identifier Dates NovoFine 32G X 6 MM Start : 09-24-2020 Multiple periphe ral artery stent, bare-metal [id number] [facility] Start: 03-09-2021 Functional Status Date Assessment Result Facility 08-30-2022 Functional Status N/A General Benjamin makayla Gallagher Clinical Notes 03-09-2021 to 11-29-2023 Tonya Dye NP - 11/29/2023 4:38 PM ESTTonya Dye, SHIVAM - 11/29/2023 4:36 PM ESTTonya Dye, ETL ANALYST DEVELOPER - 11/29/2023 4:34 PM ESTClaudiasa Hardik, ETL ANALYST DEVELOPER - 11/29/2023 4:34 PM EST Note Date [...] Uncontrolled type 2 diabetes mellitus with hyperglycemia ([facility]) Check blood sugars daily, notify if <70 [...] being taken. 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 Hypertension This is [...] right Psoriasis (CMS/HCC) PVD (peripheral vascular disease) ([facility]/HCC) Retinopathy, diabetic, bilateral (CMS/HCC) Ringing in ears, right Seasonal allergies Sebaceous cyst Tobacco user Uncontrolled type 2 diabetes mellitus with hyperglycemia ([facility]/HCC) Vitamin B12 deficiency Past Surgical History: Procedure [...] SINUS WO IV CONTRAST BMI 29.0-29.9,adult Diabetes ([facility]) Relevant Orders Hemoglobin A1c HTN (hypertension) ([facility]) - Primary No changes needed in medication regimine Sebaceous cyst Still waiting on approval from [facility] to stop plavix for proceedure Ageusia Relevant Orders CT SINUS WO IV CONTRAST documented in this encounter [facility] 10-24-2023 Evaluation note Encounter Date Diagnosis [...] Pain in right elbow (ICD-10 - M25.521) [employer] Other 12-29-2022 Hospital Discharge instructions Follow Up Care 10/13/2022 10:40:40 With:MANJIT WILKINS, JULIA Mays Address: [place] [address]- When: only if needed General Surgery 60mo [id number] NoteOPERATIVE NOTE OPERATION DATE: 10/12/2022 PREOPERATIVE DIAGNOSIS: [...] area in good condition. CC: Tonya Dye, [facility]11-20-2022 NoteChief Complaint consultation for sebaceous cyst HPI [...] plan excisional biopsy under local anesthesia at [facility] once inflammation has decreased; approximately4 weeks; [...] Cipro (Itching) Victoza (Itchin (more content not included)...[facility]Result Comment: Electronically Signed By: MANJIT WILKINS, Bernadine Calle\Date and Time Signed: 09/04/22 11:08 [id number] Evaluation note* Encounter Date Diagnosis Assessment Notes [...] of right lower extremity (ICD-10 - I82.491) [employer] Other 11-04-2021 Evaluation note* Encounter Date Diagnosis Assessment Notes Treatment Notes Treatment Clinical Notes Aug, Arthritis of right knee (ICD-10 - M17.11) Patient is doing well at this time. He will continue daily strengthening exercises and progress activity as tolerated [employer] Other 10-14-2021 Evaluation note* Encounter Date Diagnosis [...] MRI for further evaluation for meniscal tear. [employer] Other 05-25-2021 History general Narrative - Reported* Type Description Date Medical History type II diabetes Medical History HTN Medical History psoriasis Surgical History rotator cuff tear repair 011 Surgical History right leg angioplasty 03/09/21 Hospitalization History see surgical [employer] Other 05-25-2021 History general Narrative - Reported* Type Description Date Medical History type II diabetes Medical History HTN Medical History psoriasis Medical History DVT Surgical History rotator cuff tear repair 011 Surgical History right leg angioplasty 03/09/21 Hospitalization History see surgical [employer] Other Evaluation + Plan note No data available for this section General Surgery 60mo Evaluation noteNo InformationN[employer] Other Evaluation noteNo assessment information available [facility] Work Phone: Evaluation note* Diagnosis Primary hypertension [...] data available for this section [facility] [place] Progress note No data available for this section [facility] [place] Summary Purpose Family History No Family History [...] IV CONTRAST Tonya Dye, SHIVAM [address] [place] [address] Referral ID Status Reason Start Date Expiration Date V isits Requested Visits Authorized [id number] Pending Review 11/29/2023 05/27/2024 1 1 Additional Source Comments (unrecognized sect ion and content) No Status Records FoundNo Status Records FoundNo Status Records FoundNo Status Records FoundNo Status Records FoundNo Status Records Found INFORMATION SOURCE (unrecogn ized section and content) DATE CREATED AUTHOR 11/08/2021 [facility] DATE CREATED AUTHOR AUTHOR'S ORGANIZ ATION 10/26/2022 [facility] DATE CREATED AUTHOR AUTHOR'S ORGANIZ ATION 02/05/2023 [facility] DATE CREATED AUTHOR AUTHOR'S ORGANIZ ATION 01/05/2024 [facility] DATE CREATED AUTHOR AUTHOR'S ORGANIZ ATION 02/09/2024 [facility] DATE CREATED AUTHOR AUTHOR'S ORGANIZ ATION 02/29/2024 [facility] d[facility] Specialists EPIC REASON FOR VISIT (unrecogniz ed section and content) Right Knee PainClinicalReche ck Right KneeNo InformationRight Knee PainBilateral Elbow Pain Patient Care team informatio n (unrecognized section and content) Team Status: Active Member Role Status Dates Tonya Dye Primary Care Provider Active Team Status: Inactive Member Role Status Dates Tonya Dye Primary Care Provider Active Shen Luis MD Attending Provider Active Horticultural Farmer Relationship Specialty Start Date End Date Mumtaz Harry MD [address] [place] [phone] PCP - General Family Medicine 11/28/23 Tonya Dye NP [address] [place] [phone] Referring Physician Nurse Practitioner 03/09/23 Horticultural Farmer Relationship Specialty Start Date End Date Mumtaz Harry MD [address] [place] [phone] PCP - General Family Medicine 11/28/23 Tonya Dye NP [address] [place] [phone] Referring Physician Nurse Practitioner 03/09/23 Goals (unrecognized [...] BE BASED ON THE PRIMARY CLINICAL RECORDS. [facility]. provides no warranty or guarantee of the accuracy or completeness of information in this document.
--- NOTE | 2024-03-10 22:35 | XR_ITS ---
The [place] [id number] Patient Name: TERRI LOWE MRN: [id number] date: 1950 Sex: M Assigned Patient Location: ER Current Patient Location: ER Accession/Order Number: [id number] Exam Date: 03/10/2024 23:32 Report Date: 03/11/2024 00:55 At the request of: RASHAD MARKER Procedure: XR chest 2V EXAM: XR chest 2V HISTORY: fever, cough COMPARISON: Abdominal chest x-rays 03/26/2022, Chest x-ray 08/08/2012 TECHNIQUE: 2 views chest x-rays frontal and lateral FINDINGS: Mild multifocal streaky opacities at the bilateral upper and lower lungs. No large pleural effusion, pneumothorax, or acute bony abnormality. Cardiac size is unremarkable. XR/XR chest 2V IMPRESSION: Mild multifocal streaky opacities at the bilateral upper and lower lungs reflect pneumonitis and/or engorgement of bilateral pulmonary vessels. Electronically authenticated by: LEAH REYES Date: 03/11/2024 00:55
--- NOTE | 2024-03-10 22:36 | CT_ITS ---
The [address] [address] Patient Name: TERRI LOWE MRN: [id number] date: 1950 Sex: M Assigned Patient Location: ER Current Patient Location: Accession/Order Number: [id number] Exam Date: 03/10/2024 23:32 Report Date: 03/11/2024 00:01 At the request of: RASHAD MARKER Procedure: CT head/brain wo con INDICATION: 73 years old; Male. Fever and dizziness. TECHNIQUE: CT Head (ax/cor/sag reformats). Ionizing radiation dose reduced via iterative reconstruction/FBP blend and body size kV/mA adjustment. Comparison: None There are motion artifacts which degrade a portion of the examination. FINDINGS: POSTOPERATIVE CHANGES: None. BRAIN PARENCHYMA: No intraparenchymal or extra-axial hemorrhage. No mass effect. No midline shift or herniation. Normal shaw/white differentiation. VENTRICLES/EXTRA-AXIAL SPACES: Enlarged but within normal limits for patient's age. SINUSES/MASTOIDS: Sinuses are clear although the maxillary sinuses are not completely included. Nasal septal deviation to the right with spur formation. Mastoids and middle ears are clear. MSK: No displaced or depressed calvarial fracture. OTHER: No hyperdense intraluminal thrombus. Nesbit calcification. CT/CT head/brain wo con IMPRESSION: 1. No acute intracranial abnormality. No hemorrhage or mass effect. 2. Vascular calcification. Electronically authenticated by: BERNADINE CESPEDES Date: 03/11/2024 00:01
--- NOTE | 2024-03-10 22:36 | ED_ITS ---
HPI HPI - General Adult General Chief complaint: Weakness Stated complaint: General Weakness Time Seen by Provider: 03/10/24 22:22 Source: patient Mode of arrival: ambulance Limitations: no limitations History of Present Illness HPI narrative: This 73-year-old male is brought to the emergency department from home by EMS. The patient states he was outside mowing his yard when he suddenly felt weak and dizzy. He went inside and states he felt like he was going to fall over because he was so weak. He started having pain in his legs, hands and arms. He took his temperature and he had a fever of 102. He denies any chest pain or shortness of breath. He does have an occasional cough and admits that he smokes. He denies any abdominal pain. He has not had any nausea vomiting or diarrhea. He has not had any recent falls although he felt like he was going to fall while at home earlier which is why he called EMS. The patient states that his is in [place]. He is not having any back pain or urinary symptoms. He denies any headache or neck stiffness. He does not have a skin rash. He denies any sick contacts. He took 1 Tylenol earlier today for his fever. Related Data Home Medications ?Medication ?Instructions ?Recorded ?Confirmed clopidogrel 75 mg tablet 75 mg PO DAILY 01/25/24 03/10/24 dapagliflozin propanediol 10 mg 10 mg PO DAILY 01/25/24 03/10/24 tablet (Farxiga) gabapentin 400 mg capsule 600 mg PO QID 01/25/24 03/10/24 glipizide 10 mg tablet 10 mg PO BID 01/25/24 03/10/24 metformin 1,000 mg tablet 1,000 mg PO BID 01/25/24 03/10/24 metoprolol tartrate 50 mg tablet 50 mg PO BID 01/25/24 03/10/24 pioglitazone 45 mg tablet 45 mg PO DAILY 01/25/24 03/10/24 simvastatin 20 mg tablet 20 mg PO DAILY 01/25/24 03/10/24 tamsulosin 0.4 mg capsule 0.4 mg PO DAILY 01/25/24 03/10/24 Allergies Allergy/AdvReac Type Severity Reaction Status Date / Time ciprofloxacin [From Cipro] Allergy Severe Verified 03/10/24 22:17 dulaglutide [From Trulicity] Allergy Severe Verified 03/10/24 22:17 liraglutide [From Victoza] Allergy Severe Verified 03/10/24 22:17 Penicillins Allergy Severe Verified 03/10/24 22:17 Opioid HPI Opioid Management Most Recent Opioid Data: No Data to Display Review of Systems ROS Status of ROS 10 or more systems reviewed and unremark able except as noted in history and below Exam Narrative Exam Narrative: Vital signs and Nursing Notes reviewed: Patient has a low-grade fever with a temperature of 99.9 and is tachycardic with pulse of 108, blood pressure is normal and he is mildly hypoxic with pulse ox of 94% on room air General: Awake, alert, oriented, no acute distress, lying comfortably on the stretcher HEENT: Normocephalic atraumatic, mucous membranes are moist and pink, eyes are clear, normal conjunctiva, vision is grossly intact, posterior pharynx is normal in appearance. Neck: Supple, no meningeal signs, no anterior or posterior cervical lymphadenopathy Chest: Lungs are clear to auscultation with good air entry, there is no wheezing rhonchi or rales appreciated no accessory muscle use, patient is speaking in complete sentences-no chest wall tenderness to palpation. Patient has a dry cough. CVS: Regular rate and rhythm S1-S2, grade 2 out of 6 systolic ejection murmur at the left sternal border, pulses are brisk and equal bilaterally ABD: Soft, nondistended, nontender, no rebound guarding or rigidity, bowel sounds are normal, no pulsatile masses appreciated Extremities: Moving all extremities, no lower extremity tenderness or swelling noted, negative Homans' sign, pulses are brisk and equal bilaterally, no sign of diabetic foot infection Skin: Normal in appearance without rash,pallor, petechiae or purpura Neuro: No focal deficits, speech is clear, he is moving all extremities, upper and lower extremity strength and sensation is intact, NIH stroke scale is 0 Constitutional Vital Signs, click to edit/add: Last Vital Signs Temp 99.9 F 03/10/24 22:13 Pulse 108 H 03/10/24 22:13 Resp 18 03/10/24 22:13 BP 132/64 03/10/24 22:13 Pulse Ox 94 L 03/10/24 22:13 O2 Del Method Room Air 03/10/24 22:13 Course Vital Signs Vital signs: Vital Signs Temperature 99.9 F 03/10/24 22:13 Pulse Rate 108 H 03/10/24 22:13 Respiratory Rate 18 03/10/24 22:13 Blood Pressure 132/64 03/10/24 22:13 Pulse Oximetry 94 L 03/10/24 22:13 Oxygen Delivery Method Room Air 03/10/24 22:13 Temperature 99.9 F 03/10/24 22:13 Pulse Rate 108 H 03/10/24 22:13 Respiratory Rate 18 03/10/24 22:13 Blood Pressure 132/64 03/10/24 22:13 Pulse Oximetry 94 L 03/10/24 22:13 Oxygen Delivery Method Room Air 03/10/24 22:13 Medical Decision Making MDM Narrative Medical decision making narrative: This 73-year-old male with a history of diabetes is brought to the emergency department by EMS from home for evaluation of dizziness, fever and cough. He is a smoker. He states that he was out mowing his yard earlier and started feeling chilled with bodyaches and went inside feeling weak and dizzy. He states he felt like he was going to pass out but did not pass out. He took his temperature and it was 102. He took 1 Tylenol prior to coming to the emergency department. Upon arrival he had a low-grade fever at 99.9. An IV was placed and the septic workup was ordered. EKG done upon arrival is a sinus tachycardia at 106 bpm with a normal axis and no acute changes. An IV was placed and he was medicated with IV fluids and Tylenol. CT scan of the brain was ordered due to the dizziness. He did not have any focal neurologic symptoms. The CT scan was negative for acute findings. Routine labs including CBC with differential, comprehensive metabolic profile, lactic acid, troponin, BNP 2 sets of blood cultures and urinalysis was ordered. He does have an elevated white count of 15.4. He has a normal lactic acid. Troponin is normal. BNP is elevated at 954. BUN and creatinine are stable. Chest x-ray shows bilateral streaky opacities. I suspect he may be developing a pneumonia. Respiratory panel is negative. He was medicated emergency department with IV Rocephin and Zithromax. Due to his generalized weakness, the fact that his is currently out of town and he is staying by himself he will be admitted for further evaluation and treatment. While he fell asleep it did note that his pulse ox dropped to 90% on room air and he was placed on 2 L nasal cannula. The case was discussed with the hospitalist and he is accepted for admission. Medical Records Medical records narrative: The [address] [address] [address] Scan Report Signed Patient: TERRI LOWE MR#: [id number] : 1950 Acct:[id number] Age/Sex: 73 / M ADM Date: 03/10/24 Loc: ER Attending Dr: Ordering Physician: Allegra Zaragoza Date of Service: 03/10/24 Procedure(s): CT head/brain wo con Accession Number(s): [id number] cc: Tonya Dye NP~ The [address] [address] Patient Name: TERRI LOWE MRN: [id number] date: 1950 Sex: M Assigned Patient Location: ER Current Patient Location: ER Accession/Order Number: [id number] Exam Date: 03/10/2024 23:32 Report Date: 03/11/2024 00:01 At the request of: ALLEGRA ZARAGOZA Procedure: CT head/brain wo con INDICATION: 73 years old; Male. Fever and dizziness. TECHNIQUE: CT Head (ax/cor/sag reformats). Ionizing radiation dose reduced via iterative reconstruction/FBP blend and body size kV/mA adjustment. Comparison: None There are motion artifacts which degrade a portion of the examination. FINDINGS: POSTOPERATIVE CHANGES: None. BRAIN PARENCHYMA: No intraparenchymal or extra-axial hemorrhage. No mass effect. No midline shift or herniation. Normal shaw/white differentiation. VENTRICLES/EXTRA-AXIAL SPACES: Enlarged but within normal limits for patient's age. SINUSES/MASTOIDS: Sinuses are clear although the maxillary sinuses are not completely included. Nasal septal deviation to the right with spur formation. Mastoids and middle ears are clear. MSK: No displaced or depressed calvarial fracture. OTHER: No hyperdense intraluminal thrombus. Ti calcification. CT/CT head/brain wo con IMPRESSION: 1. No acute intracranial abnormality. No hemorrhage or mass effect. 2. Vascular calcification. Electronically authenticated by: BERNADINE CESPEDES Date: 03/11/2024 [address] [address] XRay Report Signed Patient: TERRI LOWE MR#: [id number] : 1950 Acct:[id number] Age/Sex: 73 / M ADM Date: 03/10/24 Loc: ER Attending Dr: Ordering Physician: Allegra Zaragoza Date of Service: 03/10/24 Procedure(s): XR chest 2V Accession Number(s): [id number] cc: Tonya Dye ASSISTANT HOUSEKEEPING MANAGER; Allegra Marker~ The [address] [address] Patient Name: TERRI LOWE MRN: [id number] date: 1950 Sex: M Assigned Patient Location: ER Current Patient Location: ER Accession/Order Number: [id number] Exam Date: 03/10/2024 23:32 Report Date: 03/11/2024 00:55 At the request of: ALLEGRA MARKER Procedure: XR chest 2V EXAM: XR chest 2V HISTORY: fever, cough COMPARISON: Abdominal chest x-rays 03/26/2022, Chest x-ray 08/08/2012 TECHNIQUE: 2 views chest x-rays frontal and lateral FINDINGS: Mild multifocal streaky opacities at the bilateral upper and lower lungs. No large pleural effusion, pneumothorax, or acute bony abnormality. Cardiac size is unremarkable. XR/XR chest 2V IMPRESSION: Mild multifocal streaky opacities at the bilateral upper and lower lungs reflect pneumonitis and/or engorgement of bilateral pulmonary vessels. Electronically authenticated by: LEAH REYES Date: 03/11/2024 00 Lab Data Lab results reviewed: Yes I reviewed the patient's lab results Labs: Lab Results 03/10/24 03/10/24 Range/Units 22:25 22:49 WBC 15.4 H (4.0-11.0) 10^3/uL RBC 5.19 (4.70-6.10) 10^6/uL Hgb 16.4 (14.0-18.0) g/dL Hct 48.6 (42.0-54.0) % MCV 93.6 (80.0-94.0) fL MCH 31.6 (25.9-34.0) pg MCHC 33.7 (29.9-35.2) g/dL RDW 14.6 (11.0-15.0) % Plt Count 198 (150-450) 10^3/uL MPV 10.1 (9.5-13.5) fL Neut % (Auto) 82.4 H (43.0-75.0) % Lymph % (Auto) 7.3 L (20.5-60.0) % Eaton % (Auto) 9.6 (1.7-12.0) % Eos % (Auto) 0.0 L (0.9-7.0) % Baso % (Auto) 0.2 (0.2-2.0) % Neut # (Auto) 12.6 H (1.4-6.5) 10^3/uL Lymph # (Auto) 1.1 L (1.2-3.8) 10^3/uL Eaton # (Auto) 1.5 H (0.3-0.8) 10^3/uL Eos # (Auto) 0.0 (0.0-0.7) 10^3/uL Baso # (Auto) 0.0 (0.0-0.1) 10^3/uL Abs Immat Gran (auto) 0.08 H (0.00-0.03) 10^3/uL Imm/Tot Granulo (auto) 0.5 (0.0-0.5) % PT 10.3 (9.0-11.6) sec INR 0.97 APTT 34.2 (22.3-36.2) sec Sodium 135 L (136-145) mmol/L Potassium 4.2 (3.5-5.1) mmol/L Chloride 101 (98-107) mmol/L Carbon Dioxide 23.4 (21.0-32.0) mmol/L Anion Gap 14.8 BUN 21.0 H (7.0-18.0) mg/dL Creatinine 0.87 (0.70-1.30) mg/dL Est GFR ( Amer) >60 (>=60) Est GFR (Non-Af Amer) >60 (>=60) BUN/Creatinine Ratio 24.1 Glucose 143 H (74-106) mg/dL Lactate 1.4 (0.4-2.0) mmol/L Calcium 9.3 (8.5-10.1) mg/dL Magnesium 2.0 (1.8-2.4) mg/dL Total Bilirubin 0.7 (0.2-1.0) mg/dL AST 18 (15-37) U/L ALT 25 (16-63) U/L Alkaline Phosphatase 106 (46-116) U/L Troponin I High Sens 15.2 (4.0-76.1) pg/mL NT-Pro-B Natriuret Pep 954.0 H (<=900.0) pg/mL Total Protein 7.4 (6.4-8.2) g/dL Albumin 3.2 L (3.4-5.0) g/dL Globulin 4.2 g/dL Albumin/Globulin Ratio 0.8 Procalcitonin 0.08 (0.00-0.50) ng/mL Adenovirus (PCR) Not detected (NOT DETECTE) B. pertussis DNA (PCR) Not detected (NOT DETECTE) B.parapertussis DNA PCR Not detected (NOT DETECTE) C. pneumoniae DNA (PCR) Not detected (NOT DETECTE) Coronavirus Type OC43 Not detected (NOT DETECTE) Coronavirus Type HKU1 Not detected (NOT DETECTE) Coronavirus Type 229E Not detected (NOT DETECTE) Coronavirus Type NL63 Not detected (NOT DETECTE) Human Metapneumovir PCR Not detected (NOT DETECTE) Influenza Type A (PCR) Not detected (NOT DETECTE) Influenza Type B (PCR) Not detected (NOT DETECTE) M. pneumoniae (PCR) Not detected (NOT DETECTE) Parainfluenza PCR Not detected (NOT DETECTE) Parainfluenza 2 (PCR) Not detected (NOT DETECTE) Parainfluenza 3 (PCR) Not detected (NOT DETECTE) Parainfluenza 4 (PCR) Not detected (NOT DETECTE) RSV (RT-PCR) Not detected (NOT DETECTE) Entero/Rhino (PCR) Not detected (NOT DETECTE) SARS-CoV-2 (PCR) Not detected (NOT DETECTE) ECG Data Attestation: I personally reviewed and interpreted this ECG as follows: (Sinus tachycardia 106 bpm, normal axis, normal intervals, no acute ST segment elevation or T wave inversion) Discharge Plan Discharge Chief Complaint: Weakness Clinical Impression: Fever, Atypical pneumonia, Generalized weakness Patient Disposition: Admitted As Inpatient Time of Disposition Decision: 01:40 Condition: Good
[2024-03-10 22:43] LABS: Basophils Percent Auto 0.2 % (0.2-2.0); Hematocrit 48.6 % (42.0-54.0); Hemoglobin 16.4 g/dL (14.0-18.0); Immature Granulocytes Abs Auto 0.08 10^3/uL (0.00-0.03); Immature Granulocytes Pct Auto 0.5 % (0.0-0.5); Lymphocytes Absolute Auto 1.1 10^3/uL (1.2-3.8); Lymphocytes Percent Auto 7.3 % (20.5-60.0); Mean Corpuscular HGB Conc 33.7 g/dL (29.9-35.2); Mean Corpuscular Hemoglobin 31.6 pg (25.9-34.0); Mean Corpuscular Volume 93.6 fL (80.0-94.0); Mean Platelet Volume 10.1 fL (9.5-13.5); Monocytes Absolute Auto 1.5 10^3/uL (0.3-0.8); Monocytes Percent Auto 9.6 % (1.7-12.0); Neutrophils Absolute Auto 12.6 10^3/uL (1.4-6.5); Neutrophils Percent Auto 82.4 % (43.0-75.0); Platelet Count 198 10^3/uL (150-450); Red Blood Count 5.19 10^6/uL (4.70-6.10); Red Cell Distribution Width 14.6 % (11.0-15.0); White Blood Count 15.4 10^3/uL (4.0-11.0)
[2024-03-10 22:51] LABS: INR 0.97; Partial Thromboplastin Time 34.2 sec (22.3-36.2); Prothrombin Time 10.3 sec (9.0-11.6)
[2024-03-10 22:56] LABS: Adenovirus NOT DETECTED (NOT DETECTE); Bordetella parapertussis NOT DETECTED (NOT DETECTE); Coronavirus 229E NOT DETECTED (NOT DETECTE); Coronavirus HKU1 NOT DETECTED (NOT DETECTE); Coronavirus NL63 NOT DETECTED (NOT DETECTE); Coronavirus OC43 NOT DETECTED (NOT DETECTE); Human Metapneumovirus NOT DETECTED (NOT DETECTE); Human Rhinovirus/Enterovirus NOT DETECTED (NOT DETECTE); Influenza A NOT DETECTED (NOT DETECTE); Influenza B NOT DETECTED (NOT DETECTE); Mycoplasma pneumoniae NOT DETECTED (NOT DETECTE); Parainfluenza Virus 1 NOT DETECTED (NOT DETECTE); Parainfluenza Virus 2 NOT DETECTED (NOT DETECTE); Parainfluenza Virus 3 NOT DETECTED (NOT DETECTE); Parainfluenza Virus 4 NOT DETECTED (NOT DETECTE); Respiratory Syncytial Virus NOT DETECTED (NOT DETECTE); SARS-CoV-2 NOT DETECTED (NOT DETECTE)
[2024-03-10 22:57] LABS: Alanine Aminotransferase 25 U/L (16-63); Albumin Globulin Ratio 0.8; Albumin Level 3.2 g/dL (3.4-5.0); Alkaline Phosphatase 106 U/L (46-116); Anion Gap 14.8; Aspartate Amino Transferase 18 U/L (15-37); BUN Creatinine Ratio 24.1; Bilirubin Total 0.7 mg/dL (0.2-1.0); Calcium 9.3 mg/dL (8.5-10.1); Carbon Dioxide 23.4 mmol/L (21.0-32.0); Chloride 101 mmol/L (98-107); Estimated GFR (African America >60 (>=60); Estimated GFR (Non-African Ame >60 (>=60); Globulin 4.2 g/dL; Glucose 143 mg/dL (74-106); Potassium 4.2 mmol/L (3.5-5.1); Sodium 135 mmol/L (136-145); Total Protein 7.4 g/dL (6.4-8.2)
[2024-03-10] MEDS: ACETAMINOPHEN 325 MG TABLET 650 MG PO (22:57)
[2024-03-10] MEDS: 0.9 % SODIUM CHLORIDE 1,000 ML 999 ML IV (22:57)
[2024-03-10 22:59] LABS: Lactate/Lactic Acid 1.4 mmol/L (0.4-2.0)
[2024-03-10 23:04] LABS: Troponin I High Sensitivity 15.2 pg/mL (4.0-76.1)
[2024-03-10 23:10] LABS: PROCALCITONIN 0.08 ng/mL (0.00-0.50)
[2024-03-11] VITALS (25 sets, daily range): BP systolic 104–133; BP diastolic 60–77; PULSE 86–108; TEMP 36.7–38.7; O2SAT 2–97; BMI 28.7
[2024-03-11] MEDS: AZITHROMYCIN 500 MG in 0.9 % SODIUM CHLORIDE 250 ML 250 MG IV (01:54)
--- OUTSIDE RECORDS SUMMARY | 2024-03-11 02:20 | XMS_ITS | CCD ---
Author Organization [facility] Care Team Providers Care Pharmacy Technician Name Role Phone Shen Luis Unavailable Krishna Ocasio Unavailable TONYA DYE Primary Care Physician [phone] Bernadine PLATT Attending Unavailable TONYA DYE Referring Unavailabl Bernadine Mehta Attending Unavailable TONYA DYE Referring Unavailabl e Bernadine PLATT Attending Unavailable Bernadine PLATT Attending Unavailable AICHHOLZ, BRASS BUFFER TONYA Consulting Unavailable AICHHOLZ, BRASS BUFFER TONYA Primary Care Unavailable AICHHOLZ, BRASS BUFFER TONYA Attending Unavailable AICHHOLZ, BRASS BUFFER TONYA Admitting Unavailable AICHHOLZ, BRASS BUFFER TONYA Consulting Unavailable AICHHOLZ, BRASS BUFFER TONYA Primary Care Unavailable AICHHOLZ, BRASS BUFFER TONYA Attending Unavailable AICHHOLZ, BRASS BUFFER TONYA Admitting Unavailable PRIETO, DR BHAVANA Pinzon Consulting Unavailable ABBAS, DR ANNE Consulting Unavailable AICHHOLZ, BRASS BUFFER TONYA Primary Care Unavailable ABBAS, DR ANNE Attending Unavailable ABBVICKY, DR ANNE Admitting Unavailable PRIETO, DR BHAVANA Pinzon Consulting Unavailable VALDES ., MR KRISHNA Consulting Unavailable AICHHOLZ, BRASS BUFFER TONYA Primary Care Unavailable VALDES ., MR KRISHNA Attending Unavailable VALDES ., MR KRISHNA Admitting Unavailable AICHHOLZ, BRASS BUFFER TONYA Consulting Unavailable AICHHOLZ, BRASS BUFFER TONYA Primary Care Unavailable AICHHOLZ, BRASS BUFFER TONYA Attending Unavailable AICHHOLZ, BRASS BUFFER TONYA Admitting Unavailable ZIMARGARITO, DR BHAVANA Pinzon Consulting Unavailable DR IRENE GONZALEZ Procedure Practitioner Unavaila DR IRENE Yang Consulting Unavailable SHAIKH Tucker PUENTES Attending Unavailable SHAIKH Tucker PUENTES Admitting Unavailable AICHHOLZ, BRASS BUFFER TONYA Primary Care Unavailable NISHANTILLIS ., DR BERNADINE Pink Consulting Unavaila ble GRILLIS ., DR BERNADINE Pink Procedure Practitioner U IAN Caputo Consulting Unavailable SHAIKH Tucker PUENTES Consulting Unavailable SID KWONG Consulting Unavailable BHAVANA MCCANN Consulting Unavailable NILL ., DR COLINDRES Consulting Unavailable AICHHOLZ, BRASS BUFFER TONYA Primary Care Unavailable NILL ., DR COLINDRES Attending Unavailable NILL ., DR COLINDRES Admitting Unavailable MEJIA JOINER Consulting Unavailable AICHHOLZ, BRASS BUFFER TONYA Primary Care Unavailable NILL ., DR COLINDRES Attending Unavailable NILL ., DR COLINDRES Admitting Unavailable CARLOS, DR IRENE Pinzon Consulting Unavailable GONZALEZ, DR IRENE Pinzon Attending Unavailable GONZALEZ, DR IRENE Pinzon Admitting Unavailable AICHHOLZ, BRASS BUFFER TONYA Primary Care Unavailable ROSARIO BLANCO Consulting Unavailable AICHHOLZ, BRASS BUFFER TONYA Consulting Unavailable AICHHOLZ, BRASS BUFFER TONYA Primary Care Unavailable AICHHOLZ, BRASS BUFFER TONYA Attending Unavailable AICHHOLZ, BRASS BUFFER TONYA Admitting Unavailable AICHHOLZ, BRASS BUFFER TONYA Consulting Unavailable AICHHOLZ, BRASS BUFFER TONYA Primary Care Unavailable AICHHOLZ, BRASS BUFFER TONYA Attending Unavailable AICHHOLZ, BRASS BUFFER TONYA Admitting Unavailable AICHHOLZ, BRASS BUFFER TONYA Consulting Unavailable AICHHOLZ, BRASS BUFFER TONYA Primary Care Unavailable AICHHOLZ, BRASS BUFFER TONYA Attending Unavailable AICHHOLZ, BRASS BUFFER TONYA Admitting Unavailable ABBAS, DR ANNE Consulting Unavailable AICHHOLZ, BRASS BUFFER TONYA Primary Care Unavailable ABBAS, DR ANNE Attending Unavailable MILLICENT, DR ANNE Admitting Unavailable ROSALINE, DR BINDU Brown Consulting Unavailable AICHHOLZ, BRASS BUFFER TONYA Primary Care Unavailable AICHHOLZ, BRASS BUFFER TONYA Attending Unavailable AICHHOLZ, BRASS BUFFER TONYA Admitting Unavailable AICHHOLZ, BRASS BUFFER TONYA Consulting Unavailable Aichholz, Tonya J Primary Care Provider [phone] MD Shen Luis Attending Provider [phone] Aichholz PARK SERVICES SPECIALIST, Tonya Unavailable Mumtaz Harry MD Primary Care Provider Ranulfo Bagley Attending Unavailable Aichholz, Tonya J [...] 03-14-20 21 Itching (finding), Unknown [facility] (11 sources) liraglutide; Translations: [liraglutide] Drug Allergy 11-07-19 20 Itching (finding) General [facility] (4 sources) liraglutide; Translations: [Victoza] Drug Allergy 03-26-[address] [facility] Repository (7 sources) Penicillin; Translations: [penicillin] Drug Allergy Itching (finding) General Surgery [place] (5 sources) Penicillin V Drug Allergy Unknown Anteryon [facility] [employer] Other (8 sources) Pollen Propensity to adverse reactions Unknown Anteryon [facility] [employer] Other (7 sources) Cefaclor; Translations: [cefaclor] Drug Allergy 09-19-20 23 Itching (finding) General Surgery [place] (2 sources) Ciprofloxacin; Translations: [Cipro] Drug Allergy 04-30-[address] [facility] Repository (1 source) Cefaclor Drug Allergy [facility] Repository (1 source) dulaglutide Drug Allergy 03-26-20 22 [facility] Repository (1 source) insulin aspart, human Drug Allergy 03-27-20 22 [facility] Repository (1 source) Penicillin Drug Allergy 03-26-20 22 [facility] Repository (3 sources) Penicillins; Translations: [Penicillins] Allergy to substance 11-07-19 Itching [facility] (4 sources) dulaglutide; Translations: [DULAGLUTIDE] Drug Allergy 11-05-19 Unknown [facility] (3 sources) liraglutide Drug Allergy 03-09-20 Unknown [facility] (3 sources) Penicillin G Drug Allergy 03-09-20 Unknown [facility] (1 source) Cefaclor Drug Allergy 12-27-19 [facility] Repository (1 source) Ciprofloxacin Drug Allergy 12-27-19 [facility] Repository (1 source) dulaglutide Drug Allergy 12-27-19 [facility] Repository (1 source) liraglutide Drug Allergy 12-27-19 [facility] Repository (1 source) Pollen Drug allergy (disorder) 12-27-19 [facility] Repository Medications Current Medications Medication Drug Class(es) [...] take 1 tablet by mouth at [facility] ferrous sulfate 325 (65 Fe) MG tablet [...] 11:00pm take 1 capsule by mo [facility] every eight hours Gabapentin 300 MG 1 capsule Orally three times a day for 90 days Active glipiZIDE 10 mg oral tablet (10 sources) Sulfonylurea Start: 03-09-2021 take 10 mg by mouth once daily Glipizide Active 10 MG PO Daily March 08, 2021 11:00pm take 1 tablet by [facility] twice daily 30 minutes before lunch [...] Active Start: 03-09-2021 take 1 capsule by [facility] once daily Flomax 0.4 mg Cap [...] Peripheral vascular disease, unspecified; Translations: [Atherosclerosis of lower [place] arteries of extremities with rest pain, bilateral [...] Onset: 04-04-2022 Episodic Other aftercare (1 source) detention (current) use of aspirin; Translations: [SNF CURRENT USE OF ASPIRIN] Onset: 10-20-2022 Episodic Other aftercare (1 source) 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; Translations: [OTH SNF CURRENT DRUG THERAPY] Onset: 10-20-2022 Episodic Other aftercare (1 source) 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 Glucose of more than 200 mg/dL in a nonstressed, ambulatory subject supports the diagnosis of Diabetes Mellitus. PERFORMED BY: [facility] [address] [id number] PATHOLOGIST LASER BEAM TRIM OPERATOR ANGELES PAUL M.D. Performed By: #### G LULS #### Point of Care testing , Commemt1 Glu2: Cleaned Meter Normal [facility] Comment on above: Result Comment: PERF ORMED BY: [facility] [address] [facility] [address] PATHOLOGIST LASER BEAM TRIM OPERATOR ANGELES PAUL M.D. Performed By: #### G LULS #### Point of Care testing , Glucose [Mass/Vol] 166 mg/dL Normal [facility] Comment on above: Result Comment: [facility] Glucose Reference Range is dependent on time and content of last meal. Glucose of more than 200 mg/dL in a nonstressed, ambulatory subject supports the diagnosis of Diabetes Mellitus. Performed By: #### G LULS #### Point of Care testing , Magdiel 12-27-2023 L Specimen: [id number] Received: 12/28/23 [facility] Num: [id number] Spec Type: Surgical Subm Dr: Ranulfo Bagley DO Tissues: A Skin Cyst (SEBACEOUS CYST RT SHOULDER) Procedures: HE, Gross/Micro L3 Age/ Patient Sex Location Account Attending Physician Darin Thacker Gail 73/M [place] [id number] Ranulfo Bagley DO SPEC NUM: [id number] RECD: 12/28/23 STATUS: GLADISAdan PABLO NUM: [id number] ZORA: 12/27/[address]: Ranulfo Bagley DO ENTERED: 12/28/[address] [facility] [address]: SPEC TYPE: Surgical DEPT: S [...] material. The surrounding tissue is firm, yellow-shaw.. Pharmacology Teacher sections are submitted in one cassette labeled A1. Microscopic Description Microscopic evaluation supports the above rendered diagnosis. CPT Codes 26517 Specimen: [id number] Received: 12/28/23 Status: JERMAINE Pablo Num: [id number] Spec Type: Surgical Subm Dr: Ranulfo Bagley, Tissues: A Skin Cyst (SEBACEOUS CYST RT SHOULDER) Procedures: HE, Gross/Micro L3 Patient: Darin Thacker [id number] (Continued) Signed (signature on file) Hillary Rosenbaum MD 12/29/23 1304 Normal [facility] Basic Metabolic Panelon 03-0 Anion gap [Moles/Vol] 10.4 mmol/L Normal 6.0-15.0 [facility] Comment on above: Performed By: #### B MP, SCAN CBC #### [facility] [address] Calcium [Mass/Vol] 9.5 mg/dL Normal 8.6-10.3 [facility] Comment on above: Result Comment: PERF ORMED BY: [facility] [address] [place] [address] PATHOLOGIST LASER BEAM TRIM OPERATOR ANGELES PAUL M.D. Performed By: #### B MP, SCAN CBC #### [facility] [address] [place] [address] [place] Chloride [Moles/Vol] 105 mmol/L Normal 98-[address] [facility] Comment on above: Performed By: #### B MP, SCAN CBC #### [facility] [address] [place] [id number] [place] CO2 [Moles/Vol] 24.3 mmol/L Normal 21.0-31.0 [facility] Comment on above: Performed By: #### B MP, SCAN CBC #### [facility] [address] [place] [address] [place] Creatinine [Mass/Vol] 0.66 mg/dL Low 0.70-1.30 [facility] Comment on above: Performed By: #### B MP, SCAN CBC #### [facility] [address] [place] [address] [place] GFR/1.73 sq M.predicted MDRD (S/P/Bld) [Vol rate/Area] mL/min/{1.73_m2} Normal [facility] Comment on above: Performed By: #### B MP, SCAN CBC #### [facility] [address] [place] [address] [place] Glucose [Mass/Vol] 129 mg/dL High 70-100 [facility] Comment on above: Result Comment: [facility] Glucose Reference Range is dependent on time and content of last meal. Glucose of more than 200 mg/dL in a nonstressed, ambulatory subject supports the diagnosis of Diabetes Mellitus. ADA recommended reference range Performed By: #### B MP, SCAN CBC #### [facility] [address] [place] [address] [place] Potassium [Moles/Vol] 4.7 mmol/L Normal 3.5-5.1 [facility] Comment on above: Performed By: #### B MP, SCAN CBC #### [facility] [address] [place] [id number] [place] Sodium [Moles/Vol] 135 mmol/L Low 136-145 [facility] Comment on above: Performed By: #### B MP, SCAN CBC #### [facility] [address] [place] [id number] [place] Urea nitrogen [Mass/Vol] 18 mg/dL Normal 7-25 [facility] Comment on above: Performed By: #### B MP, SCAN CBC #### [facility] [address] ECG 12 lead ECGon 12-20-2023 ECG 12 lead ECG [facility] [address] [place] [address] [place] [address] Electrocardiograph Report Signed Patient: Darin Thacker MR#: [id number] 96 : 1950 Acct:[id number] Age/Sex: 73 / M ADM Date: 12/20/23 Loc: Room: Type: [facility] Attending Dr: Ranulfo Bagley DO Ordering Provider: [...] When compared with ECG of 14-MAR-2021 10:14, [place] interval has increased Vent. rate has decreased BY 43 BPM Nonspecific T wave abnormality now evident in Lateral leads Confirmed by Laurent Livingston ([id number]) on 12/20/2023 7:43:38 PM Referred By: YUDI Electronically Signed By:Laurent Livingston Transcribed By: MUS Signed By Laurent Livingston MD 12/20/231942 Normal [facility] Scan and CBCon 12-20-2023 Basophils (Bld) [#/Vol] 0.0 10*3/uL Normal 0.0-0.2 [facility] Comment on above: Result Comment: PERF ORMED BY: [place] [address] PATHOLOGIST LASER BEAM TRIM OPERATOR ANGELES PAUL M.D. Performed By: #### B MP, SCAN CBC #### [facility] [address] [place] [address] Basophils/100 WBC (Bld) 0.6 % Normal . [facility] Comment on above: Performed By: #### B MP, SCAN CBC #### [facility] [address] Eosinophils (Bld) [#/Vol] 0.1 10*3/uL Normal 0.0-0.45 [facility] Comment on above: Performed By: #### B MP, SCAN CBC #### [facility] [address] Eosinophils/100 WBC (Bld) 1.4 % Normal . [facility] Comment on above: Performed By: #### B MP, SCAN CBC #### [facility] [address] Erythrocyte distribution width (RBC) [Ratio] 14.5 % Normal 12.0-14.8 [facility] Comment on above: Performed By: #### B MP, SCAN CBC #### [address] Hematocrit (Bld) [Volume fraction] 53.7 % High 38.8-50.0 [facility] Comment on above: Performed By: #### B MP, SCAN CBC #### [address] Hemoglobin (Bld) [Mass/Vol] 18.3 g/dL High 13.0-17.0 [facility] Comment on above: Performed By: #### B MP, SCAN CBC #### [address] Lymphocytes (Bld) [#/Vol] 1.6 10*3/uL Normal 1.00-4.8 [facility] Comment on above: Performed By: #### B MP, SCAN CBC #### [place] [address] [place] Lymphocytes/100 WBC (Bld) 22.2 % Normal . [facility] Comment on above: Performed By: #### B MP, SCAN CBC #### [facility] [address] [place] [address] MCH (RBC) [Entitic mass] 31.7 pg Normal 27.5-35.2 [facility] Comment on above: Performed By: #### B MP, SCAN CBC #### [place] [address] MCV (RBC) [Entitic vol] 92.8 fL Normal 83.5-101 [facility] Comment on above: Performed By: #### B MP, SCAN CBC #### [address] Mean Corpuscular HGB Conc 34.1 g/dL Normal 32.5-35.6 [facility] Comment on above: Performed By: #### B MP, SCAN CBC #### [address] Monocytes (Bld) [#/Vol] 0.7 10*3/uL Normal 0.0-0.8 [facility] Comment on above: Performed By: #### B MP, SCAN CBC #### [address] Monocytes/100 WBC (Bld) 9.8 % Normal . [facility] Comment on above: Performed By: #### B MP, SCAN CBC #### [address] Neutrophils (Bld) [#/Vol] 4.8 10*3/uL Normal 1.8-7.7 [facility] Comment on above: Performed By: #### B MP, SCAN CBC #### [address] Neutrophils/100 WBC (Bld) 66.0 % Normal . [facility] Comment on above: Performed By: #### B MP, SCAN CBC #### [address] NRBC% 0.4 /100{WBC} Normal 0-0.5 [facility] Comment on above: Performed By: #### B MP, SCAN CBC #### [address] Platelet Estimate Normal Normal Normal [facility] Comment on above: Performed By: #### B MP, SCAN CBC #### [address] Platelet mean volume (Bld) [Entitic vol] 8.1 fL Normal 6.6-10.1 [facility] Comment on above: Performed By: #### B MP, SCAN CBC #### [facility] [address] [place] [address] Platelet Morphology Normal Normal Normal [facility] Comment on above: Result Comment: PERF ORMED BY: [place] [address] PATHOLOGIST LASER BEAM TRIM OPERATOR ANGELES PAUL M.D. Performed By: #### B MP, SCAN CBC #### [facility] [address] [place] [address] [place] Platelets (Bld) [#/Vol] 206 10*3/uL Normal 150-450 [facility] Comment on above: Performed By: #### B MP, SCAN CBC #### [facility] [address] [place] [address] RBC (Bld) [#/Vol] 5.78 10*6/uL High 3.90-5.60 [facility] Comment on above: Performed By: #### B MP, SCAN CBC #### [facility] [address] [place] [address] RBC morphology finding Nom (Bld) Normal Normal Normal [facility] Comment on above: Performed By: #### B MP, SCAN CBC #### [facility] [address] [place] [address] [place] WBC (Bld) [#/Vol] 7.3 10*3/uL Normal 4.1-10.5 [facility] Comment on above: Performed By: #### B MP, SCAN CBC #### [facility] [address] [place] [address] [place] XR elbow BI 2Von 10-24-2023 XR elbow BI 2V [facility] [address] [place] [address] [place] [address] XRay Report Signed Patient: Darin Thacker MR#: [id number] 96 : 1950 Acct:[id number] Age/Sex: 73 / M ADM Date: 10/24/23 [...] Gordon Jr., D.O.10/24/2023 2:29 PM Dictation Location: [place] [address] Transcribed By: [facility] 10/24/23 1429 Dictated By: Dustin Gordon Jr, DO 10/24/23 1428 Signed By: 10/24/23 [address] [facility] [address] ABDOMEN WO/W CONon 2022 CT [...] BHAVANA MOREAU Date: 2023-01-31 16:31 Normal [facility] CBC AUTO DIFFon 01-27-2023 BASO # 0.0 103/ul Normal 0.0-0.1 [facility] Comment on above: Performed By: #### B MP #### [facility] [address] [address] [address] Lucho De León Basophils/100 WBC (Bld) 0.6 % Normal 0.2-2.0 [facility] Comment on above: Performed By: #### B MP #### [facility] [address] [address] [address] Lucho De León EO # 0.1 103/ul Normal 0.0-0.7 [facility] Comment on above: Performed By: #### B MP #### [facility] [address] [address] [address] Lucho De León Eosinophils/100 WBC (Bld) 1.4 % Normal 0.9-7.0 [facility] Comment on above: Performed By: #### B MP #### [facility] [address] [address] [address] Lucho De León Erythrocyte distribution width (RBC) [Ratio] 13.7 % Normal 11.0-15.0 [facility] Comment on above: Performed By: #### B MP #### [facility] [address] [address] [address] Lucho De León Hematocrit (Bld) [Volume fraction] 51.2 % Normal 42.0-54.0 [facility] Comment on above: Performed By: #### B MP #### [facility] [address] [address] [address] Lucho De León Hemoglobin (Bld) [Mass/Vol] 17.5 g/dL Normal 14.0-18.0 [facility] Comment on above: Performed By: #### B MP #### [facility] [address] [place] [address] Dr. Lucho De León IG # 0.02 10e3/ul Normal 0.00-0.03 [facility] Comment on above: Performed By: #### B MP #### [facility] [address] [place] [address] Dr. Lucho De León IG % 0.3 % Normal 0.0-0.5 [facility] Comment on above: Performed By: #### B MP #### [facility] [address] [place] [address] Dr. Lucho De León LYMPH # 1.5 103/ul Normal 1.2-3.8 [facility] Comment on above: Performed By: #### B MP #### [facility] [address] [place] [address] Dr. Lucho De León Lymphocytes/100 WBC (Bld) 22.1 % Normal 20.5-60.0 [facility] Comment on above: Performed By: #### B MP #### [facility] [address] [place] [address] Dr. Lucho De León MANUAL DIFF REQ NO Normal [facility] Comment on above: Performed By: #### B MP #### [facility] [address] [place] [address] Dr. Lucho De León MCH (RBC) [Entitic mass] 31.0 pg Normal 25.9-34.0 [facility] Comment on above: Performed By: #### B MP #### [facility] [address] [place] [address] Dr. Lucho De León MCHC (RBC) [Mass/Vol] 34.2 g/dL Normal 29.9-35.2 [facility] Comment on above: Performed By: #### B MP #### [facility] [address] [place] [address] Dr. Lucho De León MCV (RBC) [Entitic vol] 90.6 fL Normal 80.0-94.0 [facility] Comment on above: Performed By: #### B MP #### [facility] [address] [address] [address] Lucho De León MONO # 0.7 103/ul Normal 0.3-0.8 [facility] Comment on above: Performed By: #### B MP #### [facility] [address] [place] [address] Dr. Lucho De León Monocytes/100 WBC (Bld) 10.7 % Normal 1.7-12.0 [facility] Comment on above: Performed By: #### B MP #### [facility] [address] [place] [address] Dr. Lucho De León NEUT # 4.3 103/ul Normal 1.4-6.5 [facility] Comment on above: Performed By: #### B MP #### [facility] [address] [place] [address] Dr. Lucho De León Neutrophils/100 WBC (Bld) 64.9 % Normal 43.0-75.0 [facility] Comment on above: Performed By: #### B MP #### [facility] [address] [place] [address] Dr. Lucho De León Platelet mean volume (Bld) [Entitic vol] 9.1 fL Critically low 9.5-13.5 [facility] Comment on above: Performed By: #### B MP #### [facility] [address] [place] [address] Dr. Lucho De León PLT 220 103/ul Normal 150-450 [facility] Comment on above: Performed By: #### B MP #### [facility] [address] [address] [address] Lucho De León RBC 5.65 106/ul Normal 4.70-6.10 [facility] Comment on above: Performed By: #### B MP #### [facility] [address] [place] [address] Dr. Lucho De León WBC 6.6 103/ul Normal 4.0-11.0 [facility] Comment on above: Performed By: #### B MP #### [facility] [address] [place] [address] Dr. Lucho De León GLYCOHEMOGLOBIN A1Con 2022 ADA RECOMMENDATION SEE BELOW Normal [facility] Comment on above: Result Comment: ADA RECOMMENDED LIMIT 4.0 - 6.0 ADA THERAPEUTIC TARGET < 7.0 ACTION SUGGESTED > 7.0 Performed By: #### C VDTB #### [facility] [address] [address] [address] Lucho De León Glucose [Mass/Vol] 209 mg/dL Normal [facility] Comment on above: Performed By: #### C VDTBH #### [facility] [address] [place] [address] Dr. Lucho De León HbA1c (Bld) [Mass fraction] 8.9 % Critically high 4.5-6.2 [facility] Comment on above: Performed By: #### C ALYSSA #### [facility] [address] [place] [address] Dr. Lucho De León IRONon 01-27-2023 Iron [Mass/Vol] 59.0 ug/dL Critically low 65.0-175.0 [facility] Comment on above: Performed By: #### B MP #### [facility] [address] [place] [address] Dr. Lucho De León LIPID PROFILEon 01-27-2023 CHOL-HDL RATIO NORM SEE BELOW Normal [facility] Comment on above: Result Comment: 3.3 - 4.4 LOW RISK 4.4 - 7.1 AVERAGE RISK 7.1 - 11.0 MODERATE RISK >11.0 HIGH RISK Performed By: #### B MP #### [facility] [address] [place] [address] Dr. Lucho De León Cholesterol [Mass/Vol] 177 mg/dL Normal <=200 [facility] Comment on above: Performed By: #### B MP #### [facility] [address] [place] [address] Dr. Lucho De León Cholesterol in HDL [Mass/Vol] 50 mg/dL Normal 40-60 [facility] Comment on above: Performed By: #### B MP #### [facility] [address] [place] [address] Dr. Lucho De León Cholesterol in LDL [Mass/Vol] 89.2 mg/dL Normal [facility] Comment on above: Performed By: #### B MP #### [facility] [address] [address] [address] Luhco De León Cholesterol.total/Cho lesterol in HDL [Mass ratio] 3.5 {ratio} Normal [facility] Comment on above: Performed By: #### B MP #### [facility] [address] [address] [address] Lucho De León HDL NORMAL > or = 60 mg/dl - LOW CARDIOVASCULAR RISK <40 mg/dl - HIGH CARDIOVASCULAR RISK Normal [facility] Comment on above: Performed By: #### B MP #### [facility] [address] [place] [address] Dr. Lucho De León LDL CALC NORMAL SEE BELOW Normal The [facility] Comment on above: Result Comment: <100 mg/dl OPTIMAL 100 - 129 mg/dl NEAR OR ABOVE OPTIMAL 130 - 159 mg/dl BORDERLINE HIGH 160 - 189 mg/dl HIGH >190 mg/dl VERY HIGH Performed By: #### B MP #### [facility] [address] [place] [address] Dr. Lucho De León Triglyceride [Mass/Vol] 189 mg/dL Critically high <=150 [facility] Comment on above: Performed By: #### B MP #### [facility] [address] [place] [address] Dr. Lucho De León VLDL CALC 37.8 mg/dL Normal [facility] Comment on above: Performed By: #### B MP #### [facility] [address] [place] [address] Dr. Lucho De León MICROALBUMIN, RAND URon 04- mALB 7.6 mg/L Normal <=30.0 [facility] Comment on above: Performed By: #### M ALBR #### [facility] [address] [place] [address] Dr. Lucho De León PROF 14(COMP METB)on 023 Albumin [Mass/Vol] 3.6 g/dL Normal 3.4-5.0 [facility] Comment on above: Performed By: #### B MP #### [facility] [address] [place] [address] Dr. Lucho De León Albumin/Globulin [Mass ratio] 0.9 {ratio} Normal [facility] Comment on above: Performed By: #### B MP #### [facility] [address] [place] [address] Dr. Lucho De León ALP [Catalytic activity/Vol] 95 U/L Normal 46-116 [facility] Comment on above: Performed By: #### B MP #### [facility] [address] [place] [address] Dr. Lucho De León ALT [Catalytic activity/Vol] 26 U/L Normal 16-63 [facility] Comment on above: Performed By: #### B MP #### [facility] [address] [place] [address] Dr. Lucho De León Anion gap [Moles/Vol] 16.7 mmol/L Normal [facility] Comment on above: Performed By: #### B MP #### [facility] [address] [place] [address] Dr. Lucho De León AST [Catalytic activity/Vol] 13 U/L Critically low 15-37 [facility] Comment on above: Performed By: #### B MP #### [facility] [address] [place] [address] Dr. Lucho De León Bilirubin [Mass/Vol] 0.3 mg/dL Normal 0.2-1.0 [facility] Comment on above: Performed By: #### B MP #### [facility] [address] [place] [address] Dr. Lucho De León Calcium [Mass/Vol] 9.7 mg/dL Normal 8.5-10.1 [facility] Comment on above: Performed By: #### B MP #### [facility] [address] [place] [address] Dr. Lucho eD León Chloride [Moles/Vol] 103 mmol/L Normal 98-107 [facility] Comment on above: Performed By: #### B MP #### [facility] [address] [place] [address] Dr. Lucho De León CO2 [Moles/Vol] 24.9 mmol/L Normal 21.0-32.0 [facility] Comment on above: Performed By: #### B MP #### [facility] [address] [address] [address] Lucho De León Creatinine [Mass/Vol] 0.81 mg/dL Normal 0.70-1.30 [facility] Comment on above: Performed By: #### B MP #### [facility] [address] [address] [address] Lucho De León EGFR-AF CITIZ[place] >60 Normal >=60 [facility] Comment on above: Performed By: #### B MP #### [facility] [address] [place] [address] Dr. Lucho De León EGFR-NON AF CITIZEN OF [place] >60 Normal >=60 [facility] Comment on above: Performed By: #### B MP #### [facility] [address] [place] [address] Dr. Lucho De León Globulin (S) [Mass/Vol] 4.2 g/dL Normal [facility] Comment on above: Performed By: #### B MP #### [facility] [address] [place] [address] Dr. Lucho DeL eón Glucose [Mass/Vol] 156 mg/dL Critically high 74-106 T [facility] Comment on above: Performed By: #### B MP #### [facility] [address] [place] [address] Dr. Lucho De León Potassium [Moles/Vol] 4.6 mmol/L Normal 3.5-5.1 [facility] Comment on above: Performed By: #### B MP #### [facility] [address] [address] [address] Lucho De León Protein [Mass/Vol] 7.8 g/dL Normal 6.4-8.2 [facility] Comment on above: Performed By: #### B MP #### [facility] [address] [place] [address] Dr. Lucho De León Sodium [Moles/Vol] 140 mmol/L Normal 136-145 [facility] Comment on above: Performed By: #### B MP #### [facility] [address] [place] [address] Dr. Lucho De León Urea nitrogen [Mass/Vol] 15.0 mg/dL Normal 7.0-18.0 [facility] Comment on above: Performed By: #### B MP #### [facility] [address] [place] [address] Dr. Lucho De León Urea nitrogen/Creatinine [Mass ratio] 18.5 mg/mg Normal [facility] Comment on above: Performed By: #### B MP #### [facility] [address] [place] [address] Dr. Lucho De León UA RANDOM W/MICROSCOPICon BACTERIA NONE SEEN Normal NONE SEEN [facility] Comment on above: Performed By: #### C BC #### [facility] [address] [place] [address] Dr. Lucho De León Bilirubin Ql (U) Negative Normal NEGATIVE [facility] Comment on above: Performed By: #### C BC #### [facility] [address] [place] [address] Dr. Lucho De León CAST NONE SEEN Normal NONE SEEN [facility] Comment on above: Performed By: #### C BC #### [facility] [address] [place] [address] Dr. Lucho De León Clarity (U) CLEAR Normal CLEAR [facility] Comment on above: Performed By: #### C BC #### [facility] [address] [place] [address] Dr. Lucho De León Color (U) LT. YELLOW Normal YELLOW [facility] Comment on above: Performed By: #### C BC #### [facility] [address] [place] [address] Dr. Lucho De León Crystals LM Nom (Urine sed) NONE SEEN Normal NONE SEEN [facility] Comment on above: Performed By: #### C BC #### [facility] [address] [place] [address] Dr. Lucho De León Epithelial cells LM Ql (Urine sed) NONE SEEN Normal NONE SEEN /RARE [facility] Comment on above: Performed By: #### C BC #### [facility] [address] [address] [address] Lucho De León Glucose Ql (U) 1000 mg/dl Abnormal NEGATIVE [facility] Comment on above: Performed By: #### C BC #### [facility] [address] [address] [address] Lucho De León Hemoglobin Ql (U) Negative Normal NEGATIVE [facility] Comment on above: Performed By: #### C BC #### [facility] [address] [address] [address] Lucho De León Ketones Ql (U) Negative Normal NEGATIVE [facility] Comment on above: Performed By: #### C BC #### [facility] [address] [place] [address] Dr. Lucho De León LEUKOCYTES Negative Normal NEGATIVE [facility] Comment on above: Performed By: #### C BC #### [facility] [address] [place] [address] Dr. Lucho De León MUCOUS NONE SEEN Normal NONE SEEN [facility] Comment on above: Performed By: #### C BC #### [facility] [address] [place] [address] Dr. Lucho De León Nitrite Ql (U) Negative Normal NEGATIVE [facility] Comment on above: Performed By: #### C BC #### [facility] [address] [place] [address] Dr. Lucho De León pH (U) 5.5 [pH] Normal 5-9 [facility] Comment on above: Performed By: #### C BC #### [facility] [address] [place] [address] Dr. Lucho De León RBC NONE SEEN Abnormal 0-2 [facility] Comment on above: Performed By: #### C BC #### [facility] [address] [place] [address] Dr. Lucho De León SPEC GRAVITY 1.020 Normal 1.005-<=1.025 [facility] Comment on above: Performed By: #### C BC #### [facility] [address] [address] [address] Lucho De León UA PROTEIN Negative Normal NEGATIVE/ TRACE [facility] Comment on above: Performed By: #### C BC #### [facility] [address] [address] [address] Lucho De León Urobilinogen Qn (U) 0.2 {Danny'U}/dL Normal 0.2 - 1. 0 [facility] Comment on above: Performed By: #### C BC #### [facility] [address] [place] [address] Dr. Lucho De León WBC NONE SEEN Normal NONE SEEN [facility] Comment on above: Performed By: #### C BC #### [facility] [address] [place] [address] Dr. Lucho De León US CAROTID ART [...] BHAVANA MOREAU Date: 2022-12-20 16:32 Normal [facility] CBC AUTO DIFFon 11-18-2022 BASO # 0.1 103/ul Normal 0.0-0.1 [facility] Comment on above: Performed By: #### H GBHCT #### [facility] [address] [address] [address] Lucho De León Basophils/100 WBC (Bld) 0.6 % Normal 0.2-2.0 [facility] Comment on above: Performed By: #### H GBHCT #### [facility] [address] [address] [address] Lucho De León EO # 0.1 103/ul Normal 0.0-0.7 [facility] Comment on above: Performed By: #### H GBHCT #### [facility] [address] [address] [address] Lucho De León Eosinophils/100 WBC (Bld) 1.1 % Normal 0.9-7.0 [facility] Comment on above: Performed By: #### H GBHCT #### [facility] [address] [place] [address] Dr. Lucho De León Erythrocyte distribution width (RBC) [Ratio] 13.6 % Normal 11.0-15.0 [facility] Comment on above: Performed By: #### H GBHCT #### [facility] [address] [place] [address] Dr. Lucho De León Hematocrit (Bld) [Volume fraction] 56.1 % Critically high 42.0-54.0 [facility] Comment on above: Performed By: #### H GBHCT #### [facility] [address] [place] [address] Dr. Lucho De León Hemoglobin (Bld) [Mass/Vol] 17.8 g/dL Normal 14.0-18.0 [facility] Comment on above: Performed By: #### H GBHCT #### [facility] [address] [place] [address] Dr. Lucho De León IG # 0.02 10e3/ul Normal 0.00-0.03 [facility] Comment on above: Performed By: #### H GBHCT #### [facility] [address] [place] [address] Dr. Lucho De León IG % 0.2 % Normal 0.0-0.5 [facility] Comment on above: Performed By: #### H GBHCT #### [facility] [address] [place] [address] Dr. Lucho De León LYMPH # 1.6 103/ul Normal 1.2-3.8 [facility] Comment on above: Performed By: #### H GBHCT #### [facility] [address] [place] [address] Dr. Lucho De León Lymphocytes/100 WBC (Bld) 19.3 % Critically low 20.5-60.0 [facility] Comment on above: Performed By: #### H GBHCT #### [facility] [address] [address] [address] Lucho De León MANUAL DIFF REQ NO Normal [facility] Comment on above: Performed By: #### H GBHCT #### [facility] [address] [address] [address] Lucho De León MCH (RBC) [Entitic mass] 31.0 pg Normal 25.9-34.0 [facility] Comment on above: Performed By: #### H GBHCT #### [facility] [address] [address] [address] Lucho De León MCHC (RBC) [Mass/Vol] 31.7 g/dL Normal 29.9-35.2 [facility] Comment on above: Performed By: #### H GBHCT #### [facility] [address] [place] [address] Dr. Lucho De León MCV (RBC) [Entitic vol] 97.6 fL Critically high 80.0-94.0 [facility] Comment on above: Performed By: #### H GBHCT #### [facility] [address] [address] [address] Lucho De León MONO # 0.7 103/ul Normal 0.3-0.8 [facility] Comment on above: Performed By: #### H GBHCT #### [facility] [address] [address] [address] Lucho De León Monocytes/100 WBC (Bld) 8.1 % Normal 1.7-12.0 [facility] Comment on above: Performed By: #### H GBHCT #### [facility] [address] [address] [address] Lucho De León NEUT # 5.7 103/ul Normal 1.4-6.5 [facility] Comment on above: Performed By: #### H GBHCT #### [facility] [address] [place] [address] Dr. Lucho De León Neutrophils/100 WBC (Bld) 70.7 % Normal 43.0-75.0 [facility] Comment on above: Performed By: #### H GBHCT #### [facility] [address] [address] [address] Lucho De León Platelet mean volume (Bld) [Entitic vol] 10.6 fL Normal 9.5-13.5 [facility] Comment on above: Performed By: #### H GBHCT #### [facility] [address] [address] [address] Lucho De León PLT 228 103/ul Normal 150-450 [facility] Comment on above: Performed By: #### H GBHCT #### [facility] [address] [address] [address] Lucho De León RBC 5.75 106/ul Normal 4.70-6.10 [facility] Comment on above: Performed By: #### H GBHCT #### [facility] [address] [place] [address] Dr. Lucho De León WBC 8.1 103/ul Normal 4.0-11.0 [facility] Comment on above: Performed By: #### H GBHCT #### [facility] [address] [address] [address] Lucho De León PROF CHEM 8 (BAS METB)on Anion gap [Moles/Vol] 11.1 mmol/L Normal [facility] Comment on above: Performed By: #### B MP #### [facility] [address] [place] [address] Dr. Lucho De León Calcium [Mass/Vol] 9.3 mg/dL Normal 8.5-10.1 [facility] Comment on above: Performed By: #### B MP #### [facility] [address] [address] [address] Lucho De León Chloride [Moles/Vol] 102 mmol/L Normal 98-107 [facility] Comment on above: Performed By: #### B MP #### [facility] [address] [address] [address] Lucho De León CO2 [Moles/Vol] 28.3 mmol/L Normal 21.0-32.0 [facility] Comment on above: Performed By: #### B MP #### [facility] [address] [address] [address] Lucho De León Creatinine [Mass/Vol] 0.59 mg/dL Critically low 0.70-1.30 [facility] Comment on above: Performed By: #### B MP #### [facility] [address] [address] [address] Lucho De León EGFR-AF [place]IZ[place] >60 Normal >=60 [facility] Comment on above: Performed By: #### B MP #### [facility] [address] [address] [address] Lucho De León EGFR-NON AF [place]IZ[place] >60 Normal >=60 [facility] Comment on above: Performed By: #### B MP #### [facility] [address] [place] [address] Dr. Lucho De León Glucose [Mass/Vol] 171 mg/dL Critically high 74-106 T [facility] Comment on above: Performed By: #### B MP #### [facility] [address] [address] [address] Lucho De León Potassium [Moles/Vol] 4.4 mmol/L Normal 3.5-5.1 [facility] Comment on above: Performed By: #### B MP #### [facility] [address] [place] [address] Dr. Lucho De León Sodium [Moles/Vol] 137 mmol/L Normal 136-145 [facility] Comment on above: Performed By: #### B MP #### [facility] [address] [address] [address] Lucho De León Urea nitrogen [Mass/Vol] 12.0 mg/dL Normal 7.0-18.0 [facility] Comment on above: Performed By: #### B MP #### [facility] [address] [address] [address] Lucho De León Urea nitrogen/Creatinine [Mass ratio] 20.3 mg/mg Normal [facility] Comment on above: Performed By: #### B MP #### [facility] [address] [address] [address] Lucho De León General Surgery Office/Clini [...] JULIA Mays Only if needed [address] [place] [address]- Additional Instructions: Problem List/Past Medical History Ongoing [...] malignant neoplasm of female breast: Sister. Normal [facility] Comment on above: Result Comment: Elec tronically Signed By: MANJIT WILKINS, Bernadine Calle\Date and Time Signed: 10/25/22 16:08 EST Pathology Noteon 10-19-2022 Pathology Note [id number] #1.00CD:[address] [facility] Operative Reporton 2 Operative Report [id number] #1.00CD:[address] [facility] GLYCOHEMOGLOBIN A1Con 2021 ADA RECOMMENDATION SEE BELOW Normal [facility] Comment on above: Result Comment: ADA RECOMMENDED LIMIT 4.0 - 6.0 ADA THERAPEUTIC TARGET < 7.0 ACTION SUGGESTED > 7.0 Performed By: #### C VDTBH #### [facility] [address] [place] [address] Dr. Lucho De León Glucose [Mass/Vol] 197 mg/dL Normal [facility] Comment on above: Performed By: #### C VDTBH #### [facility] [address] [place] [address] Dr. Lucho De León HbA1c (Bld) [Mass fraction] 8.5 % Critically high 4.5-6.2 [facility] Comment on above: Performed By: #### C VDTBH #### [facility] [address] [place] [address] Dr. Lucho De León PROF CHEM 8 (BAS METB)on Anion gap [Moles/Vol] 12.0 mmol/L Normal [facility] Comment on above: Performed By: #### B MP #### [facility] [address] [place] [address] Dr. Lucho De León Calcium [Mass/Vol] 9.0 mg/dL Normal 8.5-10.1 [facility] Comment on above: Performed By: #### B MP #### [facility] [address] [address] [address] Lucho De León Chloride [Moles/Vol] 100 mmol/L Normal 98-107 [facility] Comment on above: Performed By: #### B MP #### [facility] [address] [place] [address] Dr. Lucho De León CO2 [Moles/Vol] 24.6 mmol/L Normal 21.0-32.0 [facility] Comment on above: Performed By: #### B MP #### [facility] [address] [place] [address] Dr. Lucho De León Creatinine [Mass/Vol] 0.61 mg/dL Critically low 0.70-1.30 [facility] Comment on above: Performed By: #### B MP #### [facility] [address] [place] [address] Dr. Lucho De León EGFR-AF CITIZ[place] >60 Normal >=60 [facility] Comment on above: Performed By: #### B MP #### [facility] [address] [place] [address] Dr. Lucho De León EGFR-NON AF CITIZ[place] >60 Normal >=60 [facility] Comment on above: Performed By: #### B MP #### [facility] [address] [place] [address] Dr. Lucho De León Glucose [Mass/Vol] 186 mg/dL Critically high 74-106 T [facility] Comment on above: Performed By: #### B MP #### [facility] [address] [address] [address] Lucho De León Potassium [Moles/Vol] 4.6 mmol/L Normal 3.5-5.1 [facility] Comment on above: Performed By: #### B MP #### [facility] [address] [place] [address] Dr. Lucho De León Sodium [Moles/Vol] 132 mmol/L Critically low 136-[address] [facility] Comment on above: Performed By: #### B MP #### [facility] [address] [place] [address] Dr. Lucho De León Urea nitrogen [Mass/Vol] 12.0 mg/dL Normal 7.0-18.0 [facility] Comment on above: Performed By: #### B MP #### [facility] [address] [place] [address] Dr. Lucho De León Urea nitrogen/Creatinine [Mass ratio] 19.7 mg/mg Normal [facility] Comment on above: Performed By: #### B MP #### [facility] [id number] Lucho De León XR CSPINE 2_3 [...] by: BHAVANA MOREAU Date: 2022-09-22 12:09 Normal [facility] Consent for Procedure/Surger yon 08-31-2022 Consent for Procedure/Surgery [id number] #1.00CD:[address] [facility] Ambulatory Visit Summaryon 1 10-30-2021 [...] allergies Tobacco user Vitamin B12 deficiency Normal [facility] Physician Referralon 022 Physician Referral [id number] #1.00CD:[address] [facility] CBC AUTO DIFFon 06-14-2022 BASO # 0.0 103/ul Normal 0.0-0.1 [facility] Comment on above: Performed By: #### C VDTBH #### [facility] [address] [place] [address] Dr. Lucho De León Basophils/100 WBC (Bld) 0.4 % Normal 0.2-2.0 [facility] Comment on above: Performed By: #### C VDTBH #### [facility] [address] [address] [address] Lucho De León EO # 0.1 103/ul Normal 0.0-0.7 [facility] Comment on above: Performed By: #### C VDTBH #### [facility] [address] [address] [address] Lucho De León Eosinophils/100 WBC (Bld) 1.6 % Normal 0.9-7.0 [facility] Comment on above: Performed By: #### C VDTBH #### [facility] [address] [place] [address] Dr. Lucho De León Erythrocyte distribution width (RBC) [Ratio] 16.1 % Critically high 11.0-15.0 [facility] Comment on above: Performed By: #### C VDTBH #### [facility] [address] [place] [address] Dr. Lucho De León Hematocrit (Bld) [Volume fraction] 51.3 % Normal 42.0-54.0 [facility] Comment on above: Performed By: #### C VDTBH #### [facility] [address] [place] [address] Dr. Lucho De León Hemoglobin (Bld) [Mass/Vol] 16.9 g/dL Normal 14.0-18.0 [facility] Comment on above: Performed By: #### C VDTBH #### [facility] [address] [place] [address] Dr. Lucho De León IG # 0.02 10e3/ul Normal 0.00-0.03 [facility] Comment on above: Performed By: #### C VDTBH #### [facility] [address] [place] [address] Dr. Lucho De León IG % 0.3 % Normal 0.0-0.5 [facility] Comment on above: Performed By: #### C VDTBH #### [facility] [address] [place] [address] Dr. Lucho De León LYMPH # 1.6 103/ul Normal 1.2-3.8 [facility] Comment on above: Performed By: #### C VDTBH #### [facility] [address] [place] [address] Dr. Lucho De León Lymphocytes/100 WBC (Bld) 21.6 % Normal 20.5-60.0 [facility] Comment on above: Performed By: #### C VDTBH #### [facility] [address] [place] [address] Dr. Lucho De León MANUAL DIFF REQ NO Normal [facility] Comment on above: Performed By: #### C VDTBH #### [facility] [address] [place] [address] Dr. Lucho De León MCH (RBC) [Entitic mass] 29.3 pg Normal 25.9-34.0 [facility] Comment on above: Performed By: #### C VDTBH #### [facility] [address] [place] [address] Dr. Lucho De León MCHC (RBC) [Mass/Vol] 32.9 g/dL Normal 29.9-35.2 [facility] Comment on above: Performed By: #### C VDTBH #### [facility] [address] [place] [address] Dr. Lucho De León MCV (RBC) [Entitic vol] 89.1 fL Normal 80.0-94.0 [facility] Comment on above: Performed By: #### C VDTBH #### [facility] [address] [place] [address] Dr. Lucho De León MONO # 0.6 103/ul Normal 0.3-0.8 [facility] Comment on above: Performed By: #### C VDTBH #### [facility] [address] [place] [address] Dr. Lucho De León Monocytes/100 WBC (Bld) 8.6 % Normal 1.7-12.0 [facility] Comment on above: Performed By: #### C VDTBH #### [facility] [address] [place] [address] Dr. Lucho De León NEUT # 5.0 103/ul Normal 1.4-6.5 [facility] Comment on above: Performed By: #### C VDTBH #### [facility] [address] [place] [address] Dr. Lucho De León Neutrophils/100 WBC (Bld) 67.5 % Normal 43.0-75.0 [facility] Comment on above: Performed By: #### C VDTBH #### [facility] [address] [place] [address] Dr. Lucho De León Platelet mean volume (Bld) [Entitic vol] 10.3 fL Normal 9.5-13.5 [facility] Comment on above: Performed By: #### C VDTBH #### [facility] [address] [address] [address] Lucho De León PLT 218 103/ul Normal 150-450 [facility] Comment on above: Performed By: #### C VDTBH #### [facility] [address] [address] [address] Lucho De León RBC 5.76 106/ul Normal 4.70-6.10 [facility] Comment on above: Performed By: #### C VDTBH #### [facility] [address] [address] [address] Lucho De León WBC 7.5 103/ul Normal 4.0-11.0 [facility] Comment on above: Performed By: #### C VDTBH #### [facility] [address] [place] [address] Dr. Lucho De León GLYCOHEMOGLOBIN A1Con 2021 ADA RECOMMENDATION SEE BELOW Normal [facility] Comment on above: Result Comment: ADA RECOMMENDED LIMIT 4.0 - 6.0 ADA THERAPEUTIC TARGET < 7.0 ACTION SUGGESTED > 7.0 Performed By: #### A 1C #### [facility] [address] [place] [address] Dr. Lucho De León Glucose [Mass/Vol] 177 mg/dL Normal [facility] Comment on above: Performed By: #### A 1C #### [facility] [address] [place] [address] Dr. Lucho De León HbA1c (Bld) [Mass fraction] 7.8 % Critically high 4.5-6.2 [facility] Comment on above: Performed By: #### A 1C #### [facility] [address] [place] [address] Dr. Lucho De León IRONon 06-14-2022 Iron [Mass/Vol] 50.0 ug/dL Critically low 65.0-175.0 [facility] Comment on above: Performed By: #### C BC #### [facility] [address] [place] [address] Dr. Lucho De León PROF 14(COMP METB)on 022 Albumin [Mass/Vol] 3.8 g/dL Normal 3.4-5.0 [facility] Comment on above: Performed By: #### H GBHCT #### [facility] [address] [place] [address] Dr. Lucho De León Albumin/Globulin [Mass ratio] 0.9 {ratio} Normal [facility] Comment on above: Performed By: #### H GBHCT #### [facility] [address] [address] [address] Lucho De León ALP [Catalytic activity/Vol] 95 U/L Normal 46-116 [facility] Comment on above: Performed By: #### H GBHCT #### [facility] [address] [place] [address] Dr. Lucho De León ALT [Catalytic activity/Vol] 19 U/L Normal 16-63 [facility] Comment on above: Performed By: #### H GBHCT #### [facility] [address] [address] [address] Lucho De León Anion gap [Moles/Vol] 12.2 mmol/L Normal [facility] Comment on above: Performed By: #### H GBHCT #### [facility] [address] [place] [address] Dr. Lucho De León AST [Catalytic activity/Vol] 11 U/L Critically low 15-37 [facility] Comment on above: Performed By: #### H GBHCT #### [facility] [address] [address] [address] Lucho De León Bilirubin [Mass/Vol] 0.3 mg/dL Normal 0.2-1.0 [facility] Comment on above: Performed By: #### H GBHCT #### [facility] [address] [address] [address] Lucho De León Calcium [Mass/Vol] 9.6 mg/dL Normal 8.5-10.1 [facility] Comment on above: Performed By: #### H GBHCT #### [facility] [address] [place] [address] Dr. Lucho De León Chloride [Moles/Vol] 103 mmol/L Normal 98-107 [facility] Comment on above: Performed By: #### H GBHCT #### [facility] [address] [address] [address] Lucho De León CO2 [Moles/Vol] 29.4 mmol/L Normal 21.0-32.0 [facility] Comment on above: Performed By: #### H GBHCT #### [facility] [address] [address] [address] Lucho De León Creatinine [Mass/Vol] 0.80 mg/dL Normal 0.70-1.30 [facility] Comment on above: Performed By: #### H GBHCT #### [facility] [address] [place] [address] Dr. Lucho De León EGFR-AF CITIZEN [place] >60 Normal >=60 [facility] Comment on above: Performed By: #### H GBHCT #### [facility] [address] [place] [address] Dr. Lucho De León EGFR-NON AF CITIZEN OF [place] >60 Normal >=60 [facility] Comment on above: Performed By: #### H GBHCT #### [facility] [address] [place] [address] Dr. Lucho De León Globulin (S) [Mass/Vol] 4.0 g/dL Normal [facility] Comment on above: Performed By: #### H GBHCT #### [facility] [address] [address] [address] Lucho De León Glucose [Mass/Vol] 202 mg/dL Critically high 74-106 T [facility] Comment on above: Performed By: #### H GBHCT #### [facility] [address] [place] [address] Dr. Lucho De León Potassium [Moles/Vol] 4.6 mmol/L Normal 3.5-5.1 [facility] Comment on above: Performed By: #### H GBHCT #### [facility] [address] [place] [address] Dr. Lucho De León Protein [Mass/Vol] 7.8 g/dL Normal 6.4-8.2 [facility] Comment on above: Performed By: #### H GBHCT #### [facility] [address] [address] [address] Lucho De León Sodium [Moles/Vol] 140 mmol/L Normal 136-145 [facility] Comment on above: Performed By: #### H GBHCT #### [facility] [address] [address] [address] Lucho De León Urea nitrogen [Mass/Vol] 15.0 mg/dL Normal 7.0-18.0 [facility] Comment on above: Performed By: #### H GBHCT #### [facility] [address] [address] [address] Lucho De León Urea nitrogen/Creatinine [Mass ratio] 18.8 mg/mg Normal [facility] Comment on above: Performed By: #### H GBHCT #### [facility] [address] [address] [address] Lucho De León NM STRESS/REST MULTIon 04-27 NM STRESS/REST MULTI Patient: DARIN THACKER Exam Date: 04/27/2022 : 1950 Gender:M Ordering : [facility]AKatja [facility] #: [id number] Family : Order #: [id number] CLICK HERE TO VIEW EXAM RADIOLOGY REPORT [...] STUDY: PERFUSION DEFECT: LOCATION: Mid-inferior. Apical inferior. [place]. SIZE: Medium (3-4 segments). SEVERITY: Mild. TYPE: [...] MD on 04/28/2022 at 08:01 Normal [facility] CBC AUTO DIFFon 04-14-2022 BASO # 0.0 103/ul Normal 0.0-0.1 [facility] Comment on above: Performed By: #### A 1C #### [facility] [address] [place] [address] Dr. Lucho De León Basophils/100 WBC (Bld) 0.5 % Normal 0.2-2.0 [facility] Comment on above: Performed By: #### A 1C #### [facility] [address] [place] [address] Dr. Lucho De León EO # 0.1 103/ul Normal 0.0-0.7 [facility] Comment on above: Performed By: #### A 1C #### [facility] [address] [place] [address] Dr. Lucho De León Eosinophils/100 WBC (Bld) 2.0 % Normal 0.9-7.0 [facility] Comment on above: Performed By: #### A 1C #### [facility] [address] [place] [address] Dr. Lucho De León Erythrocyte distribution width (RBC) [Ratio] 15.0 % Normal 11.0-15.0 [facility] Comment on above: Performed By: #### A 1C #### [facility] [address] [place] [address] Dr. Lucho De León Hematocrit (Bld) [Volume fraction] 39.1 % Critically low 42.0-54.0 [facility] Comment on above: Performed By: #### A 1C #### [facility] [address] [address] [address] Lucho De León Hemoglobin (Bld) [Mass/Vol] 12.5 g/dL Critically low 14.0-18.0 [facility] Comment on above: Performed By: #### A 1C #### [facility] [address] [place] [address] Dr. Lucho De León IG # 0.02 10e3/ul Normal 0.00-0.03 [facility] Comment on above: Performed By: #### A 1C #### [facility] [address] [place] [address] Dr. Lucho De León IG % 0.4 % Normal 0.0-0.5 [facility] Comment on above: Performed By: #### A 1C #### [facility] [address] [place] [address] Dr. Lucho De León LYMPH # 1.7 103/ul Normal 1.2-3.8 [facility] Comment on above: Performed By: #### A 1C #### [facility] [address] [place] [address] Dr. Lucho De León Lymphocytes/100 WBC (Bld) 30.7 % Normal 20.5-60.0 [facility] Comment on above: Performed By: #### A 1C #### [facility] [address] [place] [address] Dr. Lucho De León MANUAL DIFF REQ NO Normal [facility] Comment on above: Performed By: #### A 1C #### [facility] [address] [place] [address] Dr. Lucho De León MCH (RBC) [Entitic mass] 29.7 pg Normal 25.9-34.0 [facility] Comment on above: Performed By: #### A 1C #### [facility] [address] [place] [address] Dr. Lucho De León MCHC (RBC) [Mass/Vol] 32.0 g/dL Normal 29.9-35.2 [facility] Comment on above: Performed By: #### A 1C #### [facility] [address] [address] [address] Lucho De León MCV (RBC) [Entitic vol] 92.9 fL Normal 80.0-94.0 [facility] Comment on above: Performed By: #### A 1C #### [facility] [address] [place] [address] Dr. Lucho De León MONO # 0.5 103/ul Normal 0.3-0.8 [facility] Comment on above: Performed By: #### A 1C #### [facility] [address] [place] [address] Dr. Lucho De León Monocytes/100 WBC (Bld) 9.6 % Normal 1.7-12.0 [facility] Comment on above: Performed By: #### A 1C #### [facility] [address] [place] [address] Dr. Lucho De León NEUT # 3.2 103/ul Normal 1.4-6.5 [facility] Comment on above: Performed By: #### A 1C #### [facility] [address] [place] [address] Dr. Lucho De León Neutrophils/100 WBC (Bld) 56.8 % Normal 43.0-75.0 [facility] Comment on above: Performed By: #### A 1C #### [facility] [address] [place] [address] Dr. Lucho De León Platelet mean volume (Bld) [Entitic vol] 9.2 fL Critically low 9.5-13.5 [facility] Comment on above: Performed By: #### A 1C #### [facility] [address] [place] [address] Dr. Lucho De León PLT 317 103/ul Normal 150-450 [facility] Comment on above: Performed By: #### A 1C #### [facility] [address] [place] [address] Dr. Lucho De León RBC 4.21 106/ul Critically low 4.70-6.10 [facility] Comment on above: Performed By: #### A 1C #### [facility] [address] [place] [address] Dr. Lucho De León WBC 5.6 103/ul Normal 4.0-11.0 [facility] Comment on above: Performed By: #### A 1C #### [facility] [address] [id number] [address] Lucho De León ECHOCARDIO M/2D COMPLETEon 0 04-14-2022 ECHOCARDIO M/2D COMPLETE Patient: DARIN THACKER Exam Date: 04/14/2022 : 1950 Gender:M Ordering : OLI TONYA [facility] Admission #: [id number] Family : Order #: [id number] CLICK HERE TO VIEW EXAM ECHOCARDIOGRAM REPORT [...] M.D. on 04/14/2022 at 17:53 Normal [facility] PRBC LEUKOREDUCEDon 04-14-20 ABO and Rh group Nom (Bld) Cross Match Result Compatible Unit Blood Type O Pos Unit Number [id number] Status Information Transfused Product ID Red Blood Cells Product Code [id number] Cross Match Result Compatible Unit Blood Type O Pos Unit Number [id number] Status Information Transfused Product ID Red Blood Cells Product Code [id number] Normal [facility] Comment on above: Performed By: #### P RBC #### [facility] [address] [place] [address] Dr. Lucho De León PRBC LEUKOREDUCED Cross Match Result Compatible Unit Blood Type O Pos Unit Number [id number] Status Information Transfused Product ID Red Blood Cells Product Code [id number] Normal [facility] Comment on above: Performed By: #### P RBC #### [facility] [address] [place] [address] Dr. Lucho De León PRBC LEUKOREDUCED Cross Match Result Compatible Unit Blood Type O Pos Unit Number [id number] Status Information Transfused Product ID Red Blood Cells Product Code [id number] [facility] Comment on above: Performed By: #### P RBC #### [facility] [address] [place] [address] Dr. Lucho De León CBC AUTO DIFFon 04-06-2022 BASO # 0.0 103/ul Normal 0.0-0.1 [facility] Comment on above: Performed By: #### C BC #### [facility] [address] [place] [address] Dr. Lucho De León Basophils/100 WBC (Bld) 0.4 % Normal 0.2-2.0 [facility] Comment on above: Performed By: #### C BC #### [facility] [address] [place] [address] Dr. Lucho De León EO # 0.1 103/ul Normal 0.0-0.7 [facility] Comment on above: Performed By: #### C BC #### [facility] [address] [place] [address] Dr. Lucho De León Eosinophils/100 WBC (Bld) 1.4 % Normal 0.9-7.0 [facility] Comment on above: Performed By: #### C BC #### [facility] [address] [place] [address] Dr. Lucho De León Erythrocyte distribution width (RBC) [Ratio] 16.3 % Critically high 11.0-15.0 [facility] Comment on above: Performed By: #### C BC #### [facility] [address] [place] [address] Dr. Lucho De León Hematocrit (Bld) [Volume fraction] 36.2 % Critically low 42.0-54.0 [facility] Comment on above: Performed By: #### C BC #### [facility] [address] [place] [address] Dr. Lucho De León Hemoglobin (Bld) [Mass/Vol] 11.3 g/dL Critically low 14.0-18.0 [facility] Comment on above: Performed By: #### C BC #### [facility] [address] [place] [address] Dr. Lucho De León IG # 0.04 10e3/ul Critically high 0.00-0.03 [facility] Comment on above: Performed By: #### C BC #### [facility] [address] [place] [address] Dr. Lucho De León IG % 0.5 % Normal 0.0-0.5 [facility] Comment on above: Performed By: #### C BC #### [facility] [address] [place] [address] Dr. Lucho De León LYMPH # 2.0 103/ul Normal 1.2-3.8 [facility] Comment on above: Performed By: #### C BC #### [facility] [address] [place] [address] Dr. Lucho De León Lymphocytes/100 WBC (Bld) 26.7 % Normal 20.5-60.0 [facility] Comment on above: Performed By: #### C BC #### [facility] [address] [place] [address] Dr. Lucho De León MANUAL DIFF REQ NO Normal [facility] Comment on above: Performed By: #### C BC #### [facility] [address] [place] [address] Dr. Lucho De León MCH (RBC) [Entitic mass] 29.7 pg Normal 25.9-34.0 [facility] Comment on above: Performed By: #### C BC #### [facility] [address] [place] [address] Dr. Lucho De León MCHC (RBC) [Mass/Vol] 31.2 g/dL Normal 29.9-35.2 [facility] Comment on above: Performed By: #### C BC #### [facility] [address] [place] [address] Dr. Lucho De León MCV (RBC) [Entitic vol] 95.3 fL Critically high 80.0-94.0 [facility] Comment on above: Performed By: #### C BC #### [facility] [address] [place] [address] Dr. Lucho De León MONO # 0.9 103/ul Critically high 0.3-0.8 [facility] Comment on above: Performed By: #### C BC #### [facility] [address] [place] [address] Dr. Lucho De León Monocytes/100 WBC (Bld) 11.8 % Normal 1.7-12.0 [facility] Comment on above: Performed By: #### C BC #### [facility] [address] [place] [address] Dr. Lucho De León NEUT # 4.3 103/ul Normal 1.4-6.5 [facility] Comment on above: Performed By: #### C BC #### [facility] [address] [place] [address] Dr. Lucho De León Neutrophils/100 WBC (Bld) 59.2 % Normal 43.0-75.0 [facility] Comment on above: Performed By: #### C BC #### [facility] [address] [place] [address] Dr. Lucho De León Platelet mean volume (Bld) [Entitic vol] 9.1 fL Critically low 9.5-13.5 [facility] Comment on above: Performed By: #### C BC #### [facility] [address] [place] [address] Dr. Lucho De León PLT 371 103/ul Normal 150-450 [facility] Comment on above: Performed By: #### C BC #### [facility] [address] [place] [address] Dr. Lucho De León RBC 3.80 106/ul Critically low 4.70-6.10 [facility] Comment on above: Performed By: #### C BC #### [facility] [address] [place] [address] Dr. Lucho De León WBC 7.3 103/ul Normal 4.0-11.0 [facility] Comment on above: Performed By: #### C BC #### [facility] [address] [place] [address] Dr. Lucho De León PROF CHEM 8 (BAS METB)on Anion gap [Moles/Vol] 12.4 mmol/L Normal [facility] Comment on above: Performed By: #### A 1C #### [facility] [address] [place] [address] Dr. Lucho De León Calcium [Mass/Vol] 9.3 mg/dL Normal 8.5-10.1 [facility] Comment on above: Performed By: #### A 1C #### [facility] [address] [place] [address] Dr. Lucho De León Chloride [Moles/Vol] 104 mmol/L Normal 98-107 [facility] Comment on above: Performed By: #### A 1C #### [facility] [address] [place] [address] Dr. Lucho De León CO2 [Moles/Vol] 24.6 mmol/L Normal 21.0-32.0 [facility] Comment on above: Performed By: #### A 1C #### [facility] [address] [place] [address] Dr. Lucho De León Creatinine [Mass/Vol] 0.67 mg/dL Critically low 0.70-1.30 [facility] Comment on above: Performed By: #### A 1C #### [facility] [address] [address] [address] Lucho De León EGFR-AF [place]IZ[place] >60 Normal >=60 [facility] Comment on above: Performed By: #### A 1C #### [facility] [address] [address] [address] Lucho De León EGFR-NON AF [place]IZ[place] >60 Normal >=60 [facility] Comment on above: Performed By: #### A 1C #### [facility] [address] [address] [address] Lucho De León Glucose [Mass/Vol] 144 mg/dL Critically high 74-106 T [facility] Comment on above: Performed By: #### A 1C #### [facility] [address] [place] [address] Dr. Lucho De León Potassium [Moles/Vol] 5.0 mmol/L Normal 3.5-5.1 [facility] Comment on above: Performed By: #### A 1C #### [facility] [address] [address] [address] Lucho De León Sodium [Moles/Vol] 136 mmol/L Normal 136-145 [facility] Comment on above: Performed By: #### A 1C #### [facility] [address] [address] [address] Lucho De León Urea nitrogen [Mass/Vol] 12.0 mg/dL Normal 7.0-18.0 [facility] Comment on above: Performed By: #### A 1C #### [facility] [address] [address] [address] Lucho De León Urea nitrogen/Creatinine [Mass ratio] 17.9 mg/mg Normal [facility] Comment on above: Performed By: #### A 1C #### [facility] [address] [address] [address] Lucho De León CBC AUTO DIFFon 03-30-2022 BASO # 0.0 103/ul Normal 0.0-0.1 [facility] Comment on above: Performed By: #### C BC #### [facility] [address] [address] [address] Lucho De León Basophils/100 WBC (Bld) 0.2 % Normal 0.2-2.0 [facility] Comment on above: Performed By: #### C BC #### [facility] [address] [address] [address] Lucho De León EO # 0.1 103/ul Normal 0.0-0.7 [facility] Comment on above: Performed By: #### C BC #### [facility] [address] [address] [address] Lucho De León Eosinophils/100 WBC (Bld) 0.9 % Normal 0.9-7.0 [facility] Comment on above: Performed By: #### C BC #### [facility] [address] [place] [address] Dr. Lucho De León Erythrocyte distribution width (RBC) [Ratio] 16.9 % Critically high 11.0-15.0 [facility] Comment on above: Performed By: #### C BC #### [facility] [address] [place] [address] Dr. Lucho De León Hematocrit (Bld) [Volume fraction] 29.9 % Critically low 42.0-54.0 [facility] Comment on above: Performed By: #### C BC #### [facility] [address] [address] [address] Lucho De León Hemoglobin (Bld) [Mass/Vol] 10.1 g/dL Critically low 14.0-18.0 [facility] Comment on above: Performed By: #### C BC #### [facility] [address] [address] [address] Lucho De León IG # 0.10 10e3/ul Critically high 0.00-0.03 [facility] Comment on above: Performed By: #### C BC #### [facility] [address] [address] [address] Lucho De León IG % 0.9 % Critically high 0.0-0.5 [facility] Comment on above: Performed By: #### C BC #### [facility] [address] [address] [address] Lucho De León LYMPH # 2.0 103/ul Normal 1.2-3.8 [facility] Comment on above: Performed By: #### C BC #### [facility] [address] [address] [address] Lucho De León Lymphocytes/100 WBC (Bld) 18.3 % Critically low 20.5-60.0 [facility] Comment on above: Performed By: #### C BC #### [facility] [address] [place] [address] Dr. Lucho De León MANUAL DIFF REQ NO Normal [facility] Comment on above: Performed By: #### C BC #### [facility] [address] [place] [address] Dr. Lucho De León MCH (RBC) [Entitic mass] 30.6 pg Normal 25.9-34.0 [facility] Comment on above: Performed By: #### C BC #### [facility] [address] [place] [address] Dr. Lucho De León MCHC (RBC) [Mass/Vol] 33.8 g/dL Normal 29.9-35.2 [facility] Comment on above: Performed By: #### C BC #### [facility] [address] [place] [address] Dr. Lucho De León MCV (RBC) [Entitic vol] 90.6 fL Normal 80.0-94.0 [facility] Comment on above: Performed By: #### C BC #### [facility] [address] [place] [address] Dr. Lucho De León MONO # 0.9 103/ul Critically high 0.3-0.8 [facility] Comment on above: Performed By: #### C BC #### [facility] [address] [place] [address] Dr. Lucho De León Monocytes/100 WBC (Bld) 8.2 % Normal 1.7-12.0 [facility] Comment on above: Performed By: #### C BC #### [facility] [address] [address] [address] Lucho De León NEUT # 8.0 103/ul Critically high 1.4-6.5 [facility] Comment on above: Performed By: #### C BC #### [facility] [address] [address] [address] Lucho De León Neutrophils/100 WBC (Bld) 71.5 % Normal 43.0-75.0 [facility] Comment on above: Performed By: #### C BC #### [facility] [address] [address] [address] Lucho De León Platelet mean volume (Bld) [Entitic vol] 9.7 fL Normal 9.5-13.5 [facility] Comment on above: Performed By: #### C BC #### [facility] [address] [address] [address] Lucho De León PLT 195 103/ul Normal 150-450 [facility] Comment on above: Performed By: #### C BC #### [facility] [address] [address] [address] Lucho De León RBC 3.30 106/ul Critically low 4.70-6.10 [facility] Comment on above: Performed By: #### C BC #### [facility] [address] [address] [address] Lucho De León WBC 11.1 103/ul Critically high 4.0-11.0 [facility] Comment on above: Performed By: #### C BC #### [facility] [address] [address] [address] Lucho De León PROF CHEM 8 (BAS METB)on Anion gap [Moles/Vol] 11.8 mmol/L Normal [facility] Comment on above: Performed By: #### C BC #### [facility] [address] [address] [address] Lucho De León Calcium [Mass/Vol] 8.5 mg/dL Normal 8.5-10.1 [facility] Comment on above: Performed By: #### C BC #### [facility] [address] [address] [address] Lucho De León Chloride [Moles/Vol] 103 mmol/L Normal 98-107 [facility] Comment on above: Performed By: #### C BC #### [facility] [address] [address] [address] Lucho De León CO2 [Moles/Vol] 25.8 mmol/L Normal 21.0-32.0 [facility] Comment on above: Performed By: #### C BC #### [facility] [address] [address] [address] Lucho De León Creatinine [Mass/Vol] 0.56 mg/dL Critically low 0.70-1.30 [facility] Comment on above: Performed By: #### C BC #### [facility] [address] [place] [address] Dr. Lucho De León EGFR-AF CITIZEN [place] >60 Normal >=60 [facility] Comment on above: Performed By: #### C BC #### [facility] [address] [address] [address] Lucho De León EGFR-NON AF CITIZEN [place] >60 Normal >=60 [facility] Comment on above: Performed By: #### C BC #### [facility] [address] [address] [address] Lucho De León Glucose [Mass/Vol] 166 mg/dL Critically high 74-106 [facility] Comment on above: Performed By: #### C BC #### [facility] [address] [place] [address] Dr. Lucho De León Potassium [Moles/Vol] 3.6 mmol/L Normal 3.5-5.1 [facility] Comment on above: Performed By: #### C BC #### [facility] [address] [place] [address] Dr. Lucho De León Sodium [Moles/Vol] 137 mmol/L Normal 136-145 [facility] Comment on above: Performed By: #### C BC #### [facility] [address] [place] [address] Dr. Lucho De León Urea nitrogen [Mass/Vol] 6.0 mg/dL Critically low 7.0-18.0 [facility] Comment on above: Performed By: #### C BC #### [facility] [address] [place] [address] Dr. Lucho De León Urea nitrogen/Creatinine [Mass ratio] 10.7 mg/mg Normal [facility] Comment on above: Performed By: #### C BC #### [facility] [address] [place] [address] Dr. Lucho De León CBC AUTO DIFFon 03-29-2022 BASO # 0.0 103/ul Normal 0.0-0.1 [facility] Comment on above: Performed By: #### A 1C #### [facility] [address] [place] [address] Dr. Lucho De León Basophils/100 WBC (Bld) 0.3 % Normal 0.2-2.0 [facility] Comment on above: Performed By: #### A 1C #### [facility] [address] [place] [address] Dr. Lucho De León EO # 0.1 103/ul Normal 0.0-0.7 [facility] Comment on above: Performed By: #### A 1C #### [facility] [address] [place] [address] Dr. Lucho De León Eosinophils/100 WBC (Bld) 0.8 % Critically low 0.9-7.0 [facility] Comment on above: Performed By: #### A 1C #### [facility] [address] [place] [address] Dr. Lucho De León Erythrocyte distribution width (RBC) [Ratio] 16.9 % Critically high 11.0-15.0 [facility] Comment on above: Performed By: #### A 1C #### [facility] [address] [place] [address] Dr. Lucho De León Hematocrit (Bld) [Volume fraction] 23.0 % Critically low 42.0-54.0 [facility] Comment on above: Performed By: #### A 1C #### [facility] [address] [address] [address] Lucho De León Hemoglobin (Bld) [Mass/Vol] 7.6 g/dL Critically low 14.0-18.0 [facility] Comment on above: Performed By: #### A 1C #### [facility] [address] [address] [address] Lucho De León IG # 0.10 10e3/ul Critically high 0.00-0.03 [facility] Comment on above: Performed By: #### A 1C #### [facility] [address] [address] [address] Lucho De León IG % 1.3 % Critically high 0.0-0.5 [facility] Comment on above: Performed By: #### A 1C #### [facility] [address] [place] [address] Dr. Lucho De León LYMPH # 2.4 103/ul Normal 1.2-3.8 [facility] Comment on above: Performed By: #### A 1C #### [facility] [address] [place] [address] Dr. Lucho De León Lymphocytes/100 WBC (Bld) 32.1 % Normal 20.5-60.0 [facility] Comment on above: Performed By: #### A 1C #### [facility] [address] [place] [address] Dr. Lucho De León MANUAL DIFF REQ NO Normal [facility] Comment on above: Performed By: #### A 1C #### [facility] [address] [address] [address] Lucho De León MCH (RBC) [Entitic mass] 30.9 pg Normal 25.9-34.0 [facility] Comment on above: Performed By: #### A 1C #### [facility] [address] [place] [address] Dr. Lucho De León MCHC (RBC) [Mass/Vol] 33.0 g/dL Normal 29.9-35.2 [facility] Comment on above: Performed By: #### A 1C #### [facility] [address] [place] [address] Dr. Lucho De León MCV (RBC) [Entitic vol] 93.5 fL Normal 80.0-94.0 [facility] Comment on above: Performed By: #### A 1C #### [facility] [address] [place] [address] Dr. Lucho De León MONO # 0.8 103/ul Normal 0.3-0.8 [facility] Comment on above: Performed By: #### A 1C #### [facility] [address] [place] [address] Dr. Lucho De eLón Monocytes/100 WBC (Bld) 11.3 % Normal 1.7-12.0 [facility] Comment on above: Performed By: #### A 1C #### [facility] [address] [place] [address] Dr. Lucho De León NEUT # 4.0 103/ul Normal 1.4-6.5 [facility] Comment on above: Performed By: #### A 1C #### [facility] [address] [place] [address] Dr. Lucho De León Neutrophils/100 WBC (Bld) 54.2 % Normal 43.0-75.0 [facility] Comment on above: Performed By: #### A 1C #### [facility] [address] [place] [address] Dr. Lucho De León Platelet mean volume (Bld) [Entitic vol] 9.7 fL Normal 9.5-13.5 [facility] Comment on above: Performed By: #### A 1C #### [facility] [address] [place] [address] Dr. Lucho De León PLT 155 103/ul Normal 150-450 [facility] Comment on above: Performed By: #### A 1C #### [facility] [address] [place] [address] Dr. Lucho De León RBC 2.46 106/ul Critically low 4.70-6.10 [facility] Comment on above: Performed By: #### A 1C #### [facility] [address] [place] [address] Dr. Lucho De León WBC 7.4 103/ul Normal 4.0-11.0 [facility] Comment on above: Performed By: #### A 1C #### [facility] [address] [place] [address] Dr. Lucho De León HEMOGLOBIN AND HEMATOCRITon 03-29-2022 Hematocrit (Bld) [Volume fraction] 27.6 % Critically low 42.0-54.0 [facility] Comment on above: Performed By: #### A 1C #### [facility] [address] [place] [address] Dr. Lucho De León Hemoglobin (Bld) [Mass/Vol] 9.0 g/dL Critically low 14.0-18.0 [facility] Comment on above: Performed By: #### A 1C #### [facility] [address] [place] [address] Dr. Lucho De León POINT OF CARE GLUCOSEon 03-16 Glucose [Mass/Vol] 135 mg/dL Critically high [facility]106 [facility] Comment on above: Performed By: #### M ALBR #### [facility] [address] [place] [address] Dr. Lucho De León Glucose [Mass/Vol] 159 mg/dL Critically high [address] [place] [address] Comment on above: Performed By: #### M ALBR #### [facility] [address] [place] [address] Dr. Lucho De León Glucose [Mass/Vol] 225 mg/dL Critically high [facility]106 [facility] Comment on above: Performed By: #### C VDTBH #### [facility] [address] [place] [address] Dr. Lucho De León Glucose [Mass/Vol] 181 mg/dL Critically high [facility]106 [facility] Comment on above: Performed By: #### P OCGLUC #### [facility] [address] [place] [address] Dr. Lucho De León PROF CHEM 8 (BAS METB)on Anion gap [Moles/Vol] 9.5 mmol/L Normal [facility] Comment on above: Performed By: #### A 1C #### [facility] [address] [address] [address] Lucho De León Calcium [Mass/Vol] 7.7 mg/dL Critically low 8.5-10.[address] [facility] Comment on above: Performed By: #### A 1C #### [facility] [address] [address] [address] Lucho De León Chloride [Moles/Vol] 107 mmol/L Normal 98-107 [facility] Comment on above: Performed By: #### A 1C #### [facility] [address] [address] [address] Lucho De León CO2 [Moles/Vol] 23.7 mmol/L Normal 21.0-32.0 [facility] Comment on above: Performed By: #### A 1C #### [facility] [address] [address] [address] Lucho De León Creatinine [Mass/Vol] 0.58 mg/dL Critically low 0.70-1.30 [facility] Comment on above: Performed By: #### A 1C #### [facility] [address] [address] [address] Lucho De León EGFR-AF [place]IZ[place] >60 Normal >=60 [facility] Comment on above: Performed By: #### A 1C #### [facility] [address] [address] [address] Lucho De León EGFR-NON AF [place]IZ[place] >60 Normal >=60 [facility] Comment on above: Performed By: #### A 1C #### [facility] [address] [place] [address] Dr. Lucho De León Glucose [Mass/Vol] 125 mg/dL Critically high 74-106 [facility] Comment on above: Performed By: #### A 1C #### [facility] [address] [address] [address] Lucho De León Potassium [Moles/Vol] 4.2 mmol/L Normal 3.5-5.1 [facility] Comment on above: Performed By: #### A 1C #### [facility] [address] [place] [address] Dr. Lucho De León Sodium [Moles/Vol] 136 mmol/L Normal 136-145 [facility] Comment on above: Performed By: #### A 1C #### [facility] [address] [place] [address] Dr. Lucho De León Urea nitrogen [Mass/Vol] 15.0 mg/dL Normal 7.0-18.0 [facility] Comment on above: Performed By: #### A 1C #### [facility] [address] [place] [address] Dr. Lucho De León Urea nitrogen/Creatinine [Mass ratio] 25.9 mg/mg Normal [facility] Comment on above: Performed By: #### A 1C #### [facility] [address] [place] [address] Dr. Lucho De León CBC AUTO DIFFon 03-28-2022 BASO # 0.0 103/ul Normal 0.0-0.1 [facility] Comment on above: Performed By: #### B MP #### [facility] [address] [place] [address] Dr. Lucho De León Basophils/100 WBC (Bld) 0.3 % Normal 0.2-2.0 [facility] Comment on above: Performed By: #### B MP #### [facility] [address] [place] [address] Dr. Lucho De León EO # 0.0 103/ul Normal 0.0-0.7 [facility] Comment on above: Performed By: #### B MP #### [facility] [address] [place] [address] Dr. Lucho De León Eosinophils/100 WBC (Bld) 0.4 % Critically low 0.9-7.0 [facility] Comment on above: Performed By: #### B MP #### [facility] [address] [place] [address] Dr. Lucho De León Erythrocyte distribution width (RBC) [Ratio] 15.8 % Critically high 11.0-15.0 [facility] Comment on above: Performed By: #### B MP #### [facility] [address] [place] [address] Dr. Lucho De León Hematocrit (Bld) [Volume fraction] 23.6 % Critically low 42.0-54.0 [facility] Comment on above: Performed By: #### B MP #### [facility] [address] [place] [address] Dr. Lucho De León Hemoglobin (Bld) [Mass/Vol] 7.9 g/dL Critically low 14.0-18.0 [facility] Comment on above: Performed By: #### B MP #### [facility] [address] [place] [address] Dr. Lucho De León IG # 0.17 10e3/ul Critically high 0.00-0.03 [facility] Comment on above: Performed By: #### B MP #### [facility] [address] [place] [address] Dr. Lucho De León IG % 1.6 % Critically high 0.0-0.5 [facility] Comment on above: Performed By: #### B MP #### [facility] [address] [place] [address] Dr. Lucho De León LYMPH # 2.8 103/ul Normal 1.2-3.8 [facility] Comment on above: Performed By: #### B MP #### [facility] [address] [place] [address] Dr. Lucho De León Lymphocytes/100 WBC (Bld) 27.0 % Normal 20.5-60.0 [facility] Comment on above: Performed By: #### B MP #### [facility] [address] [place] [address] Dr. Lucho De León MANUAL DIFF REQ NO Normal [facility] Comment on above: Performed By: #### B MP #### [facility] [address] [place] [address] Dr. Lucho De León MCH (RBC) [Entitic mass] 30.3 pg Normal 25.9-34.0 [facility] Comment on above: Performed By: #### B MP #### [facility] [address] [place] [address] Dr. Lucho De León MCHC (RBC) [Mass/Vol] 33.5 g/dL Normal 29.9-35.2 [facility] Comment on above: Performed By: #### B MP #### [facility] [address] [address] [address] Lucho De León MCV (RBC) [Entitic vol] 90.4 fL Normal 80.0-94.0 [facility] Comment on above: Performed By: #### B MP #### [facility] [address] [address] [address] Lucho De León MONO # 1.2 103/ul Critically high 0.3-0.8 [facility] Comment on above: Performed By: #### B MP #### [facility] [address] [place] [address] Dr. Lucho De León Monocytes/100 WBC (Bld) 11.6 % Normal 1.7-12.0 [facility] Comment on above: Performed By: #### B MP #### [facility] [address] [place] [address] Dr. Lucho De León NEUT # 6.2 103/ul Normal 1.4-6.5 [facility] Comment on above: Performed By: #### B MP #### [facility] [address] [place] [address] Dr. Lucho De León Neutrophils/100 WBC (Bld) 59.1 % Normal 43.0-75.0 [facility] Comment on above: Performed By: #### B MP #### [facility] [address] [address] [address] Lucho De León Platelet mean volume (Bld) [Entitic vol] 10.1 fL Normal 9.5-13.5 [facility] Comment on above: Performed By: #### B MP #### [facility] [address] [place] [address] Dr. Lucho DeL eón PLT 166 103/ul Normal 150-450 [facility] Comment on above: Performed By: #### B MP #### [facility] [address] [place] [address] Dr. Lucho De León RBC 2.61 106/ul Critically low 4.70-6.10 [facility] Comment on above: Performed By: #### B MP #### [facility] [address] [place] [address] Dr. Lucho De León WBC 10.5 103/ul Normal 4.0-11.0 [facility] Comment on above: Performed By: #### B MP #### [facility] [address] [place] [address] Dr. Lucho De León HEMOGLOBIN AND HEMATOCRITon 03-28-2022 Hematocrit (Bld) [Volume fraction] 26.4 % Critically low 42.0-54.0 [facility] Comment on above: Performed By: #### H GBHCT #### [facility] [address] [place] [address] Dr. Lucho De León Hemoglobin (Bld) [Mass/Vol] 8.8 g/dL Critically low 14.0-18.0 [facility] Comment on above: Performed By: #### H GBHCT #### [facility] [address] [place] [address] Dr. Lucho De León Hematocrit (Bld) [Volume fraction] 20.9 % Critically low 42.0-54.0 [facility] Comment on above: Performed By: #### C VDTBH #### [facility] [address] [place] [address] Dr. Lucho De León Hemoglobin (Bld) [Mass/Vol] 7.1 g/dL Critically low 14.0-18.0 [facility] Comment on above: Performed By: #### C VDTBH #### [facility] [address] [place] [address] Dr. Lucho De León POINT OF CARE GLUCOSEon 03-16 Glucose [Mass/Vol] 132 mg/dL Critically high 74-106 [facility] Comment on above: Performed By: #### C BC #### [facility] [address] [place] [address] Dr. Lucho De León Glucose [Mass/Vol] 198 mg/dL Critically high 74-106 [facility] Comment on above: Performed By: #### A 1C #### [facility] [address] [address] [address] Lucho De León Glucose [Mass/Vol] 82 mg/dL Normal 74-106 [facility] Comment on above: Performed By: #### C BC #### [facility] [address] [address] [address] Lucho De León Glucose [Mass/Vol] 85 mg/dL Normal 74-106 [facility] Comment on above: Performed By: #### C VDTBH #### [facility] [address] [address] [address] Lucho De León Glucose [Mass/Vol] 115 mg/dL Critically high 74-106 [facility] Comment on above: Performed By: #### A 1C #### [facility] [address] [place] [address] Dr. Lucho De León PROF CHEM 8 (BAS METB)on Anion gap [Moles/Vol] 10.6 mmol/L Normal [facility] Comment on above: Performed By: #### M ALBR #### [facility] [address] [address] [address] Lucho De León Calcium [Mass/Vol] 8.0 mg/dL Critically low 8.5-10.1 [facility] Comment on above: Performed By: #### M ALBR #### [facility] [address] [place] [address] Dr. Lucho De León Chloride [Moles/Vol] 108 mmol/L Critically high 98-107 [facility] Comment on above: Performed By: #### M ALBR #### [facility] [address] [address] [address] Lucho De León CO2 [Moles/Vol] 23.6 mmol/L Normal 21.0-32.0 [facility] Comment on above: Performed By: #### M ALBR #### [facility] [address] [place] [address] Dr. Lucho De León Creatinine [Mass/Vol] 0.54 mg/dL Critically low 0.70-1.30 [facility] Comment on above: Performed By: #### M ALBR #### [facility] [address] [address] [address] Lucho De León EGFR-AF [place]IZ[place] >60 Normal >=60 [facility] Comment on above: Performed By: #### M ALBR #### [facility] [address] [address] [address] Lucho De León EGFR-NON AF [place]IZ[place] >60 Normal >=60 [facility] Comment on above: Performed By: #### M ALBR #### [facility] [address] [address] [address] Lucho De León Glucose [Mass/Vol] 126 mg/dL Critically high 74-106 [facility] Comment on above: Performed By: #### M ALBR #### [facility] [address] [address] [address] Lucho De León Potassium [Moles/Vol] 4.2 mmol/L Normal 3.5-5.1 [facility] Comment on above: Performed By: #### M ALBR #### [facility] [address] [address] [address] Lucho De León Sodium [Moles/Vol] 138 mmol/L Normal 136-145 [facility] Comment on above: Performed By: #### M ALBR #### [facility] [address] [address] [address] Lucho De León Urea nitrogen [Mass/Vol] 28.0 mg/dL Critically high 7.0-18.0 [facility] Comment on above: Performed By: #### M ALBR #### [facility] [address] [address] [address] Lucho De León Urea nitrogen/Creatinine [Mass ratio] 51.9 mg/mg Normal [facility] Comment on above: Performed By: #### M ALBR #### [facility] [address] [place] [address] Dr. Lucho De León CBC W MANUAL DIFFon 03-27-20 22 ATYPICAL LYMPH # Normal [facility] Comment on above: Performed By: #### C VDTBH #### [facility] [address] [place] [address] Dr. Lucho De León ATYPICAL LYMPH % Normal [facility] Comment on above: Performed By: #### C VDTBH #### [facility] [address] [place] [address] Dr. Lucho De León BAND # 0.4 103/ul Critically high 0.0-0.3 [facility] Comment on above: Performed By: #### C VDTBH #### [facility] [address] [place] [address] Dr. Lucho De León BAND % 3 % Normal 0-5 [facility] Comment on above: Performed By: #### C VDTBH #### [facility] [address] [place] [address] Dr. Lucho De León BASOM # 0.00 103/ul Normal 0.00-0.10 [facility] Comment on above: Performed By: #### C VDTBH #### [facility] [address] [place] [address] Dr. Lucho De León BASOM % 0.0 % Critically low 0.2-2.0 [facility] Comment on above: Performed By: #### C VDTBH #### [facility] [address] [place] [address] Dr. Lucho De León BLAST # Normal [facility] Comment on above: Performed By: #### C VDTBH #### [facility] [address] [place] [address] Dr. Lucho De León BLAST % Normal [facility] Comment on above: Performed By: #### C VDTBH #### [facility] [address] [place] [address] Dr. Lucho De León CORRECTED WBC Normal 4.0-11.[address] [facility] Comment on above: Performed By: #### C VDTBH #### [facility] [address] [place] [address] Dr. Lucho De León EOS # 0.00 103/ul Normal 0.00-0.70 [facility] Comment on above: Performed By: #### C VDTBH #### [facility] [address] [address] [address] Lucho De León EOS% 0.0 % Critically low 0.9-7.0 [facility] Comment on above: Performed By: #### C VDTBH #### [facility] [address] [place] [address] Dr. Lucho De León HCT 25.1 % Critically low 42.0-54.0 [facility] Comment on above: Performed By: #### C VDTBH #### [facility] [address] [place] [address] Dr. Lucho De León HGB 8.5 g/dl Critically low 14.0-18.0 [facility] Comment on above: Performed By: #### C VDTBH #### [facility] [address] [place] [address] Dr. Lucho De León LYMPHM # 2.10 103/ul Normal 1.20-3.80 [facility] Comment on above: Performed By: #### C VDTBH #### [facility] [address] [place] [address] Dr. Lucho De León LYMPHM% 15.0 % Critically low 20.5-60.0 [facility] Comment on above: Performed By: #### C VDTBH #### [facility] [address] [place] [address] Dr. Lucho De León MCH 30.9 pg Normal 25.9-34.0 [facility] Comment on above: Performed By: #### C VDTBH #### [facility] [address] [place] [address] Dr. Lucho De León MCHC 33.9 g/dl Normal 29.9-35.2 [facility] Comment on above: Performed By: #### C VDTBH #### [facility] [address] [place] [address] Dr. Lucho De León MCV 91.3 fL Normal 80.0-94.0 [facility] Comment on above: Performed By: #### C VDTBH #### [facility] [address] [place] [address] Dr. Lucho De León METAMYELOCYTE # Normal [facility] Comment on above: Performed By: #### C VDTBH #### [facility] [address] [place] [address] Dr. Lucho De León METAMYELOCYTE % Normal The [facility] Comment on above: Performed By: #### C VDTBH #### [facility] [address] [address] [address] Lucho De León MONOM# 0.98 103/ul Critically high 0.30-0.80 [facility] Comment on above: Performed By: #### C VDTBH #### [facility] [address] [address] [address] Lucho De León MONOM% 7.0 % Normal 1.7-12.0 [facility] Comment on above: Performed By: #### C VDTBH #### [facility] [address] [place] [address] Dr. Lucho De León MPV 10.7 fL Normal 9.5-13.5 [facility] Comment on above: Performed By: #### C VDTBH #### [facility] [address] [place] [address] Dr. Lucho De León MYELOCYTE # Normal [facility] Comment on above: Performed By: #### C VDTBH #### [facility] [address] [place] [address] Dr. Lucho De León MYELOCYTE % Normal [facility] Comment on above: Performed By: #### C VDTBH #### [facility] [address] [place] [address] Dr. Lucho De León NRBC 3 Normal [facility] Comment on above: Performed By: #### C VDTBH #### [facility] [address] [place] [address] Dr. Lucho De León PLT 176 103/ul Normal 150-450 [facility] Comment on above: Performed By: #### C VDTBH #### [facility] [address] [place] [address] Dr. Lucho De León RBC 2.75 106/ul Critically low 4.70-6.10 [facility] Comment on above: Performed By: #### C VDTBH #### [facility] [address] [place] [address] Dr. Lucho De León RDW 14.2 % Normal 11.0-15.0 [facility] Comment on above: Performed By: #### C VDTBH #### [facility] [address] [place] [address] Dr. Lucho De León SEG # 10.50 103/ul Critically high 1.40-6.50 [facility] Comment on above: Performed By: #### C VDTBH #### [facility] [address] [place] [address] Dr. Lucho De León SEG % 75.0 % Normal 43.0-75.0 [facility] Comment on above: Performed By: #### C VDTBH #### [facility] [address] [place] [address] Dr. Lucho De León WBC 14.0 103/ul Critically high 4.0-11.0 [facility] Comment on above: Performed By: #### C VDTBH #### [facility] [address] [place] [address] Dr. uLcho De León HEMOGLOBIN AND HEMATOCRITon 03-27-2022 Hematocrit (Bld) [Volume fraction] 24.4 % Critically low 42.0-54.0 [facility] Comment on above: Performed By: #### H GBHCT #### [facility] [address] [place] [address] Dr. Lucho De León Hemoglobin (Bld) [Mass/Vol] 8.3 g/dL Critically low 14.0-18.0 [facility] Comment on above: Performed By: #### H GBHCT #### [facility] [address] [place] [address] Dr. Lucho De León POINT OF CARE GLUCOSEon 03-16 Glucose [Mass/Vol] 222 mg/dL Critically high 74-106 T [facility] Comment on above: Performed By: #### B MP #### [facility] [address] [place] [address] Dr. Lucho De León Glucose [Mass/Vol] 330 mg/dL Critically high 74-106 [facility] Comment on above: Performed By: #### H GBHCT #### [facility] [address] [place] [address] Dr. Lucho De León Glucose [Mass/Vol] 357 mg/dL Critically high -106 [facility] Comment on above: Performed By: #### A 1C #### [facility] [address] [place] [address] Dr. Lucho De León Glucose [Mass/Vol] 257 mg/dL Critically high -106 [facility] Comment on above: Performed By: #### M ALBR #### [facility] [address] [place] [address] Dr. Lucho De León Glucose [Mass/Vol] 330 mg/dL Critically high -106 [facility] Comment on above: Performed By: #### C VDTBH #### [facility] [address] [place] [address] Dr. Lucho De León PROF CHEM 8 (BAS METB)on Anion gap [Moles/Vol] 15.3 mmol/L Normal [facility] Comment on above: Performed By: #### B MP #### [facility] [address] [place] [address] Dr. Lucho De León Calcium [Mass/Vol] 7.9 mg/dL Critically low 8.5-10.1 [facility] Comment on above: Performed By: #### B MP #### [facility] [address] [place] [address] Dr. Lucho De León Chloride [Moles/Vol] 106 mmol/L Normal 98-107 [facility] Comment on above: Performed By: #### B MP #### [facility] [address] [place] [address] Dr. Lucho De León CO2 [Moles/Vol] 20.9 mmol/L Critically low 21.0-32.0 [facility] Comment on above: Performed By: #### B MP #### [facility] [address] [place] [address] Dr. Lucho De León Creatinine [Mass/Vol] 0.84 mg/dL Normal 0.70-1.30 [facility] Comment on above: Performed By: #### B MP #### [facility] [address] [address] [address] Lucho De León EGFR-AF [place]IZ[place] >60 Normal >=60 [facility] Comment on above: Performed By: #### B MP #### [facility] [address] [address] [address] Lucho De León EGFR-NON AF CITIZEN OF [place] >60 Normal >=60 [facility] Comment on above: Performed By: #### B MP #### [facility] [address] [address] [address] Lucho De León Glucose [Mass/Vol] 275 mg/dL Critically high 74-106 T [facility] Comment on above: Performed By: #### B MP #### [facility] [address] [address] [address] Lucho De León Potassium [Moles/Vol] 5.2 mmol/L Critically high 3.5-5.1 [facility] Comment on above: Performed By: #### B MP #### [facility] [address] [address] [address] Lucho De León Sodium [Moles/Vol] 137 mmol/L Normal 136-145 [facility] Comment on above: Performed By: #### B MP #### [facility] [address] [address] [address] Lucho De León Urea nitrogen [Mass/Vol] 57.0 mg/dL Critically high 7.0-18.0 [facility] Comment on above: Performed By: #### B MP #### [facility] [address] [address] [address] Lucho De León Urea nitrogen/Creatinine [Mass ratio] 67.9 mg/mg Normal [facility] Comment on above: Performed By: #### B MP #### [facility] [address] [address] [address] Lucho De León TYPE AND SCREENon 06-12-2022 TYPE AND SCREEN Negative Normal [facility] Comment on above: Performed By: #### M ALBR #### [facility] [address] [place] [address] Dr. Lucho De León ABO RH RETYPEon 03-26-2022 ABO and Rh group Nom (Bld) DONE Normal [facility] Comment on above: Performed By: #### C VDTBH #### [facility] [address] [place] [address] Dr. Lucho De León AMYLASEon 03-26-2022 Amylase [Catalytic activity/Vol] 34 U/L Normal 25-115 [facility] Comment on above: Performed By: #### C BC #### [facility] [address] [place] [address] Dr. Lucho De León CBC AUTO DIFFon 03-26-2022 BASO # 0.0 103/ul Normal 0.0-0.1 [facility] Comment on above: Performed By: #### C BC #### [facility] [address] [place] [address] Dr. Lucho De León Basophils/100 WBC (Bld) 0.3 % Normal 0.2-2.0 [facility] Comment on above: Performed By: #### C BC #### [facility] [address] [place] [address] Dr. Lucho De León EO # 0.0 103/ul Normal 0.0-0.7 [facility] Comment on above: Performed By: #### C BC #### [facility] [address] [place] [address] Dr. Lucho De León Eosinophils/100 WBC (Bld) 0.3 % Critically low 0.9-7.0 [facility] Comment on above: Performed By: #### C BC #### [facility] [address] [place] [address] Dr. Lucho De León Erythrocyte distribution width (RBC) [Ratio] 13.9 % Normal 11.0-15.0 [facility] Comment on above: Performed By: #### C BC #### [facility] [address] [place] [address] Dr. Lucho De León Hematocrit (Bld) [Volume fraction] 30.5 % Critically low 42.0-54.0 [facility] Comment on above: Performed By: #### C BC #### [facility] [address] [address] [address] Lucho De León Hemoglobin (Bld) [Mass/Vol] 10.0 g/dL Critically low 14.0-18.0 [facility] Comment on above: Performed By: #### C BC #### [facility] [address] [address] [address] Lucho De León IG # 0.12 10e3/ul Critically high 0.00-0.03 [facility] Comment on above: Performed By: #### C BC #### [facility] [address] [place] [address] Dr. Lucho De León IG % 1.0 % Critically high 0.0-0.5 [facility] Comment on above: Performed By: #### C BC #### [facility] [address] [address] [address] Lucho De León LYMPH # 1.4 103/ul Normal 1.2-3.8 [facility] Comment on above: Performed By: #### C BC #### [facility] [address] [place] [address] Dr. Lucho De León Lymphocytes/100 WBC (Bld) 12.5 % Critically low 20.5-60.0 [facility] Comment on above: Performed By: #### C BC #### [facility] [address] [place] [address] Dr. Lucho De León MANUAL DIFF REQ NO Normal The [facility] Comment on above: Performed By: #### C BC #### [facility] [address] [place] [address] Dr. Lucho De León MCH (RBC) [Entitic mass] 31.2 pg Normal 25.9-34.0 [facility] Comment on above: Performed By: #### C BC #### [facility] [address] [place] [address] Dr. Lucho De León MCHC (RBC) [Mass/Vol] 32.8 g/dL Normal 29.9-35.2 [facility] Comment on above: Performed By: #### C BC #### [facility] [address] [place] [address] Dr. Lucho De León MCV (RBC) [Entitic vol] 95.0 fL Critically high 80.0-94.0 [facility] Comment on above: Performed By: #### C BC #### [facility] [address] [place] [address] Dr. Lucho De León MONO # 0.8 103/ul Normal 0.3-0.8 [facility] Comment on above: Performed By: #### C BC #### [facility] [address] [place] [address] Dr. Lucho De León Monocytes/100 WBC (Bld) 6.9 % Normal 1.7-12.0 [facility] Comment on above: Performed By: #### C BC #### [facility] [address] [place] [address] Dr. Lucho De León NEUT # 9.0 103/ul Critically high 1.4-6.5 [facility] Comment on above: Performed By: #### C BC #### [facility] [address] [place] [address] Dr. Lucho De León Neutrophils/100 WBC (Bld) 79.0 % Critically high 43.0-75.0 [facility] Comment on above: Performed By: #### C BC #### [facility] [address] [place] [address] Dr. Lucho De León Platelet mean volume (Bld) [Entitic vol] 10.2 fL Normal 9.5-13.5 [facility] Comment on above: Performed By: #### C BC #### [facility] [address] [place] [address] Dr. Lucho De León PLT 226 103/ul Normal 150-450 [facility] Comment on above: Performed By: #### C BC #### [facility] [address] [place] [address] Dr. Lucho De León RBC 3.21 106/ul Critically low 4.70-6.10 [facility] Comment on above: Performed By: #### C BC #### [facility] [address] [place] [address] Dr. Lucho De León WBC 11.4 103/ul Critically high 4.0-11.0 [facility] Comment on above: Performed By: #### C BC #### [facility] [address] [place] [address] Dr. Lucho De León CBC W MANUAL DIFFon 03-26-20 22 ATYPICAL LYMPH # Normal [facility] Comment on above: Performed By: #### M ALBR #### [facility] [address] [place] [address] Dr. Lucho De León ATYPICAL LYMPH % Normal [facility] Comment on above: Performed By: #### M ALBR #### [facility] [address] [place] [address] Dr. Lucho De León BAND # 0.3 103/ul Normal 0.0-0.3 [facility] Comment on above: Performed By: #### M ALBR #### [facility] [address] [place] [address] Dr. Lucho De León BAND % 2 % Normal 0-5 [facility] Comment on above: Performed By: #### M ALBR #### [facility] [address] [place] [address] Dr. Lucho De León BASOM # 0.00 103/ul Normal 0.00-0.10 [facility] Comment on above: Performed By: #### M ALBR #### [facility] [address] [place] [address] Dr. Lucho De León BASOM % 0.0 % Critically low 0.2-2.0 [facility] Comment on above: Performed By: #### M ALBR #### [facility] [address] [place] [address] Dr. Lucho De León BLAST # Normal [facility] Comment on above: Performed By: #### M ALBR #### [facility] [address] [place] [address] Dr. Lucho De León BLAST % Normal [facility] Comment on above: Performed By: #### M ALBR #### [facility] [address] [address] [address] Lucho De León CORRECTED WBC Normal 4.0-11.0 [facility] Comment on above: Performed By: #### M ALBR #### [facility] [address] [address] [address] Lucho De León EOS # 0.00 103/ul Normal 0.00-0.70 [facility] Comment on above: Performed By: #### M ALBR #### [facility] [address] [address] [address] Lucho De León EOS% 0.0 % Critically low 0.9-7.0 [facility] Comment on above: Performed By: #### M ALBR #### [facility] [address] [place] [address] Dr. Lucho De León HCT 20.0 % Critically low 42.0-54.0 [facility] Comment on above: Performed By: #### M ALBR #### [facility] [address] [place] [address] Dr. Lucho De León HGB 6.7 g/dl Critically low 14.0-18.0 [facility] Comment on above: Performed By: #### M ALBR #### [facility] [address] [place] [address] Dr. Lucho De León LYMPHM # 2.53 103/ul Normal 1.20-3.80 [facility] Comment on above: Performed By: #### M ALBR #### [facility] [address] [place] [address] Dr. Lucho De León LYMPHM% 17.0 % Critically low 20.5-60.0 [facility] Comment on above: Performed By: #### M ALBR #### [facility] [address] [place] [address] Dr. Lucho De León MCH 30.6 pg Normal 25.9-34.0 [facility] Comment on above: Performed By: #### M ALBR #### [facility] [address] [place] [address] Dr. Lucho De León MCHC 33.5 g/dl Normal 29.9-35.2 [facility] Comment on above: Performed By: #### M ALBR #### [facility] [address] [place] [address] Dr. Lucho De León MCV 91.3 fL Normal 80.0-94.0 [facility] Comment on above: Performed By: #### M ALBR #### [facility] [address] [place] [address] Dr. Lucho De León METAMYELOCYTE # Normal [facility] Comment on above: Performed By: #### M ALBR #### [facility] [address] [place] [address] Dr. Lucho De León METAMYELOCYTE % Normal [facility] Comment on above: Performed By: #### M ALBR #### [facility] [address] [place] [address] Dr. Lucho De León MONOM# 0.00 103/ul Critically low 0.30-0.80 [facility] Comment on above: Performed By: #### M ALBR #### [facility] [address] [place] [address] Dr. Lucho De León MONOM% 0.0 % Critically low 1.7-12.0 [facility] Comment on above: Performed By: #### M ALBR #### [facility] [address] [place] [address] Dr. Lucho De León MPV 10.9 fL Normal 9.5-13.5 [facility] Comment on above: Performed By: #### M ALBR #### [facility] [address] [place] [address] Dr. Lucho De León MYELOCYTE # Normal [facility] Comment on above: Performed By: #### M ALBR #### [facility] [address] [place] [address] Dr. Lucho De León MYELOCYTE % Normal [facility] Comment on above: Performed By: #### M ALBR #### [facility] [address] [address] [address] Lucho De León NRBC 2 Normal [facility] Comment on above: Performed By: #### M ALBR #### [facility] [address] [place] [address] Dr. Lucho De León PLT 214 103/ul Normal 150-450 [facility] Comment on above: Result Comment: Prev iously reported as: 69 On 03/26/2022 21:36 By [email or web address] Performed By: #### M ALBR #### [facility] [address] [place] [address] Dr. Lucho De León RBC 2.19 106/ul Critically low 4.70-6.10 [facility] Comment on above: Performed By: #### M ALBR #### [facility] [address] [place] [address] Dr. Lucho De León RDW 14.0 % Normal 11.0-15.0 [facility] Comment on above: Performed By: #### M ALBR #### [facility] [address] [place] [address] Dr. Lucho De León SEG # 12.07 103/ul Critically high 1.40-6.50 [facility] Comment on above: Performed By: #### M ALBR #### [facility] [address] [place] [address] Dr. Lucho De León SEG % 81.0 % Critically high 43.0-75.0 [facility] Comment on above: Performed By: #### M ALBR #### [facility] [address] [place] [address] Dr. Lucho De León WBC 14.9 103/ul Critically high 4.0-11.0 [facility] Comment on above: Performed By: #### M ALBR #### [facility] [address] [place] [address] ABD/PELV W [...] ROSARIO BLANCO Date: 2022-03-26 05:29 Normal [facility]on [facility]-16 SARS-CoV-2 (COVID-19) RNA IVANNA+probe Ql (Unsp spec) Not detected Normal NOT DETECTED [facility] Comment on above: Result Comment: When [...] for this test is supported by the [place] of Health and Human Service's declaration that [...] used). Performed By: #### C VDTB #### [facility] [address] [place] [address] Dr. Lucho De León ER URINE PROFILEon 2 Bilirubin Ql (U) Negative Normal NEGATIVE [facility] Comment on above: Performed By: #### A 1C #### [facility] [address] [place] [address] Dr. Lucho De León Clarity (U) CLEAR Normal CLEAR [facility] Comment on above: Performed By: #### A 1C #### [facility] [address] [place] [address] Dr. Lucho De León Color (U) LT. YELLOW Normal YELLOW [facility] Comment on above: Performed By: #### A 1C #### [facility] [address] [place] [address] Dr. Lucho Hightower micrscopic examination will be performed if indicated. Normal [facility] Comment on above: Performed By: #### A 1C #### [facility] [address] [place] [address] Dr. Lucho De León Glucose Ql (U) >1000 Abnormal NEGATIVE [facility] Comment on above: Performed By: #### A 1C #### [facility] [address] [place] [address] Dr. Lucho De León Hemoglobin Ql (U) Negative Normal NEGATIVE [facility] Comment on above: Performed By: #### A 1C #### [facility] [address] [place] [address] Dr. Lucho De León Ketones Ql (U) 15 mg/dl Abnormal NEGATIVE [facility] Comment on above: Performed By: #### A 1C #### [facility] [address] [place] [address] Dr. Lucho De León LEUKOCYTES Negative Normal NEGATIVE [facility] Comment on above: Performed By: #### A 1C #### [facility] [address] [place] [address] Dr. Lucho De León Nitrite Ql (U) Negative Normal NEGATIVE [facility] Comment on above: Performed By: #### A 1C #### [facility] [address] [place] [address] Dr. Lucho De León pH (U) 5.0 [pH] Normal 5-9 [facility] Comment on above: Performed By: #### A 1C #### [facility] [address] [place] [address] Dr. Lucho De León SPEC GRAVITY <=1.005 Abnormal 1.005-<=1.025 [facility] Comment on above: Performed By: #### A 1C #### [facility] [address] [place] [address] Dr. Lucho De León UA PROTEIN Negative Normal NEGATIVE/ TRACE [facility] Comment on above: Performed By: #### A 1C #### [facility] [address] [place] [address] Dr. Lucho De León UR MICRO IND NOT INDICATED Normal The [facility] Comment on above: Performed By: #### A 1C #### [facility] [address] [place] [address] Dr. Lucho De León Urobilinogen Qn (U) 0.2 {Danny'U}/dL Normal 0.2 - 1. 0 [facility] Comment on above: Performed By: #### A 1C #### [facility] [address] [place] [address] Dr. Lucho De León LIPASEon 03-26-2022 Lipase [Catalytic activity/Vol] 69.0 U/L Critically low 73.0-393.0 [facility] Comment on above: Performed By: #### C BC #### [facility] [address] [place] [address] Dr. Lucho De León OCC BLD IMMUNO SCREENon 03-16 OCCULT BLOOD Positive Abnormal NEGATIVE [facility] Comment on above: Performed By: #### H GBHCT #### [facility] [address] [place] [address] Dr. Lucho De León POINT OF CARE GLUCOSEon 03-16 Glucose [Mass/Vol] 271 mg/dL Critically high 74-106 T [facility] Comment on above: Performed By: #### B MP #### [facility] [address] [place] [address] Dr. Lucho De León PROF 14(COMP METB)on 022 Albumin [Mass/Vol] 2.7 g/dL Critically low 3.4-5.0 [facility] Comment on above: Performed By: #### C VDTBH #### [facility] [address] [place] [address] Dr. Lucho De León ALP [Catalytic activity/Vol] 53 U/L Normal 46-116 [facility] Comment on above: Performed By: #### C VDTBH #### [facility] [address] [place] [address] Dr. Lucho De León ALT [Catalytic activity/Vol] 18 U/L Normal 16-63 [facility] Comment on above: Performed By: #### C VDTBH #### [facility] [address] [place] [address] Dr. Lucho De León Anion gap [Moles/Vol] 18.7 mmol/L Normal [facility] Comment on above: Performed By: #### C VDTBH #### [facility] [address] [place] [address] Dr. Lucho De León AST [Catalytic activity/Vol] 14 U/L Critically low 15-37 [facility] Comment on above: Performed By: #### C VDTBH #### [facility] [address] [place] [address] Dr. Lucho De León Bilirubin [Mass/Vol] 0.2 mg/dL Normal 0.2-1.0 [facility] Comment on above: Performed By: #### C VDTBH #### [facility] [address] [address] [address] Lucho De León Chloride [Moles/Vol] 99 mmol/L Normal 98-107 [facility] Comment on above: Performed By: #### C VDTBH #### [facility] [address] [address] [address] Lucho De León CO2 [Moles/Vol] 18.3 mmol/L Critically low 21.0-32.0 [facility] Comment on above: Performed By: #### C VDTBH #### [facility] [address] [place] [address] Dr. Lucho De León Creatinine [Mass/Vol] 0.75 mg/dL Normal 0.70-1.30 [facility] Comment on above: Performed By: #### C VDTBH #### [facility] [address] [place] [address] Dr. Lucho De León Globulin (S) [Mass/Vol] 2.6 g/dL Normal [facility] Comment on above: Performed By: #### C VDTBH #### [facility] [address] [place] [address] Dr. Lucho De León Glucose [Mass/Vol] 323 mg/dL Critically high 74-106 T [facility] Comment on above: Performed By: #### C VDTBH #### [facility] [address] [place] [address] Dr. Lucho De León Potassium [Moles/Vol] 5.0 mmol/L Normal 3.5-5.1 [facility] Comment on above: Performed By: #### C VDTBH #### [facility] [address] [place] [address] Dr. Lucho De León Protein [Mass/Vol] 5.3 g/dL Critically low 6.4-8.[address] [facility] Comment on above: Performed By: #### C VDTBH #### [facility] [address] [place] [address] Dr. Lucho De León Sodium [Moles/Vol] 131 mmol/L Critically low 136-[address] [facility] Comment on above: Performed By: #### C VDTBH #### [facility] [address] [place] [address] Dr. Lucho De León Urea nitrogen [Mass/Vol] 65.0 mg/dL Critically high 7.0-18.0 [facility] Comment on above: Performed By: #### C VDTBH #### [facility] [address] [place] [address] Dr. Lucho De León Urea nitrogen/Creatinine [Mass ratio] 86.7 mg/mg Normal [facility] Comment on above: Performed By: #### C VDTBH #### [facility] [address] [place] [address] Dr. Lucho De León Albumin [Mass/Vol] 3.0 g/dL Critically low 3.4-5.0 [facility] Comment on above: Performed By: #### C BC #### [facility] [address] [place] [address] Dr. Lucho De León Albumin/Globulin [Mass ratio] 1.0 {ratio} Normal [facility] Comment on above: Performed By: #### C VDTBH #### [facility] [address] [place] [address] Dr. Lucho De León Performed By: #### C BC #### [facility] [address] [place] [address] Dr. Lucho De León ALP [Catalytic activity/Vol] 64 U/L Normal 46-116 [facility] Comment on above: Performed By: #### C BC #### [facility] [address] [place] [address] Dr. Lucho De León ALT [Catalytic activity/Vol] 20 U/L Normal 16-63 [facility] Comment on above: Performed By: #### C BC #### [facility] [address] [place] [address] Dr. Lucho De León Anion gap [Moles/Vol] 14.2 mmol/L Normal [facility] Comment on above: Performed By: #### C BC #### [facility] [address] [place] [address] Dr. Lucho De León AST [Catalytic activity/Vol] 11 U/L Critically low 15-37 [facility] Comment on above: Performed By: #### C BC #### [facility] [address] [address] [address] Lucho De León Bilirubin [Mass/Vol] 0.3 mg/dL Normal 0.2-1.0 [facility] Comment on above: Performed By: #### C BC #### [facility] [address] [place] [address] Dr. Lucho De León Calcium [Mass/Vol] 8.3 mg/dL Critically low 8.5-10.[address] [facility] Comment on above: Performed By: #### C VDTBH #### [facility] [address] [place] [address] Dr. Lucho De León Performed By: #### C BC #### [facility] [address] [place] [address] Dr. Lucho De León Chloride [Moles/Vol] 102 mmol/L Normal 98-107 [facility] Comment on above: Performed By: #### C BC #### [facility] [address] [place] [address] Dr. Lucho De León CO2 [Moles/Vol] 23.4 mmol/L Normal 21.0-32.0 [facility] Comment on above: Performed By: #### C BC #### [facility] [address] [place] [address] Dr. Lucho De León Creatinine [Mass/Vol] 0.81 mg/dL Normal 0.70-1.30 [facility] Comment on above: Performed By: #### C BC #### [facility] [address] [place] [address] Dr. Lucho De León EGFR-AF CITIZEN [place] >60 Normal >=60 [facility] Comment on above: Performed By: #### C VDTBH #### [facility] [address] [place] [address] Dr. Lucho De León Performed By: #### C BC #### [facility] [address] [place] [address] Dr. Lucho De León EGFR-NON AF CITIZEN OF [place] >60 Normal >=60 [facility] Comment on above: Performed By: #### C VDTBH #### [facility] [address] [place] [address] Dr. Lucho De León Performed By: #### C BC #### [facility] [address] [place] [address] Dr. Lucho De León Globulin (S) [Mass/Vol] 3.0 g/dL Normal [facility] Comment on above: Performed By: #### C BC #### [facility] [address] [place] [address] Dr. Lucho De León Glucose [Mass/Vol] 261 mg/dL Critically high 74-106 T [facility] Comment on above: Performed By: #### C BC #### [facility] [address] [place] [address] Dr. Lucho De León Potassium [Moles/Vol] 4.6 mmol/L Normal 3.5-5.1 [facility] Comment on above: Performed By: #### C BC #### [facility] [address] [place] [address] Dr. Lucho De León Protein [Mass/Vol] 6.0 g/dL Critically low 6.4-8.[address] [facility] Comment on above: Performed By: #### C BC #### [facility] [address] [place] [address] Dr. Lucho De León Sodium [Moles/Vol] 135 mmol/L Critically low 136-[address] [facility] Comment on above: Performed By: #### C BC #### [facility] [address] [place] [address] Dr. Lucho De León Urea nitrogen [Mass/Vol] 56.0 mg/dL Critically high 7.0-18.0 [facility] Comment on above: Performed By: #### C BC #### [facility] [address] [place] [address] Dr. Lucho De León Urea nitrogen/Creatinine [Mass ratio] 69.1 mg/mg Normal [facility] Comment on above: Performed By: #### C BC #### [facility] [address] [place] [address] Dr. Lucho De León PROTIMEon 03-26-2022 INR Coag (PPP) [Relative time] 0.99 {INR} Normal [facility] Comment on above: Performed By: #### M ALBR #### [facility] [address] [place] [address] Dr. Lucho De León INR GUIDELINES SEE BELOW Normal [facility] Comment on above: Result Comment: HANS RED INR: 2.0 - 3.0 CONDITIONS NOT LISTED BELOW 2.5 - 3.5 FOR PROSTHETIC HEART VALVE REPLACEMENT 2.5 - 3.5 RECURRENT THROMBOSIS Performed By: #### M ALBR #### [facility] [address] [address] [address] Lucho De León PT Coag (PPP) [Time] 10.7 s Normal 9.0-11.6 [facility] Comment on above: Performed By: #### M ALBR #### [facility] [address] [place] [address] Dr. Lucho De León PTTon 03-26-2022 aPTT Coag (Bld) [Time] 20.8 s Critically low 22.3-36.2 [facility] Comment on above: Performed By: #### M ALBR #### [facility] [address] [place] [address] Dr. Lucho De León XR ABD FLAT [...] ROSARIO BLANCO Date: 2022-03-26 05:15 Normal [facility] Coding Summaryon 11-08-2021 Coding Summary HTMLBase 64 OuehzsozKWw0oCe+PGhl YWQ+JJ1VUWLkJ93mrPVb dE0GT7xAFF3COUHTCTKM QK3QPR0izCF4YBzvY5On biAv IkfyoUOvXU89VIf0EUV1 lVbrEPrbtQ0hiPFqH0r8 OmIfJT38gG15PHcmZBSk HvX6XeExyppkfOEv C9orJeJdsJWmDdv+PHRh YmxlIHdpZHRoPScxMDAl NiJxxRwdVU2nDs5zJGCq LWNvbGxhcHNlOiBj o1byXYSyRZfqOF4jcMvj W1OudLU0FLIdx3p4Ms66 dHI+MECgIHW9mApaUWoh a759EwLiv3yjPRM2 xMNoVPhyQRG6R10pb7L7 PHXzFQJwBPR9vRG5lH6p iUlucskaD0PbvJSaMhK5 SXV7tGKvxV6tvKnp hexuiS3vBlw+P95ZNN6M PNWJXC8NDbx0M7BrYyey dHI+XM58FEUuUX07xCPq vQHme4tnvNc3LjAd GABgSDB7tHthMAcpv3Bk OZKkI46gmEGtl3P6CJCm nFbvrDIoRvLveRT3qX9t ATynxchta8jjgikj Sumjx2ilku22aS86K75s KEncRDIhLZJ0EONnGEJu nMcxyk2qdF2lMz2+IDxj g2omz1iatLw2SjYr KYJgxsOgmEabZHK4l9Ew Ep45W0EayJqdx3AyJsk5 vp73mWByw9T7wJI5VTzl JGKyuF7fWFtrYcV7 APSeXnZrvR70tHBzHAqw Fm4yuSwrqMjzNM0nBDOi hzlgCBPmlM3wYLNbxUNl kLjaAV8xYFTcjyjb f202HoYuJUH6EEBgpQAo G5EleL2hAoDbQRNoRSXp N8XqwLVvKGmeW672CAns IvC1ZKCyacHwY6Dj IWExdUtfMeA0k8Z5Hq3K r1DmdxieVKU6JJezYCBv RsG9NbIdVeW4Q6LwXkb9 HRPvsBtpNY9yN3Ng FABlbmscdgalvWQ3GMHa GKJrjW32iIOyBMumJw5y q1S0n790AWKfNBMslU46 Uv0xdXyjVTUsfJJU wZ0fmrbxc9mbxnguWoMm HANuVCp1UVq2DEVxeGfi RfRzBVT2RyC3BEN1gQBm jT6lqBntspbsxL6u Oyc+B85pbK6eJXN8ETF1 urdeOBLyrmHsTJ55GS85 U0YiZyayeOXgsFX+PGRp acJwvCspSV6dGcDp h5aap1GxQVkqV0AxDVXr IUpzRbt0EBRcRLS2jAY0 yN1aOPDqAVapf1Q6oXI2 Z8FogaImmx7ef1pz IVAzBDznC93juISuo2Y9 MDFxjMO1KKOdiVgzVyVz sP38Btj+ZAXmbBrzl9Ng Kgzvg2eaw7wdjHj3 IjMwJSIgdmFsaWduPSJ0 k3GiHb53B73tZYlkYLAq LIYmNBUlPLCmsItgvx4x mC4nPc8+PGNvbCB3 aEO7eH3dDEWkQyN6KYya Y620UbFgqUCmQivrp4ls f2dhnYj2OdBqVYZhueKp uWuzLFL2l1DyBq88 U23bCSrkLXSsDITlVXCx KTLrgBafmh2qdD7oLk7+ ED8an9vwci15gV10lDV+ LXZdBXB0lWtkMHhl KTPezK3iYRpeBbX8PPNa KoQayN85tBVqISeuOz5g sBlxnCgoUJ4cPNDcotsw j823OaKhc1agEYAc cPDgZOpfLSB9M53ui6Q0 AZJdSBAhLCG2dES8zG8g bGlnbjogbGVmdDsgdmVy sEqmAQbcECjuG351 IHRvcDsnPlBhdGllbnQg LgUpHJl0E0AgPni6DHAv sWxgIN7unXQlFEwsWl5v dGdziYduOJ9dNYLn qhdpv121WhVlk6tcQINl nKEbLMhxFIA4I89wt3Z0 UCMiADKyVNL6uMW0cC0g bGlnbjogbGVmdDsg czIlhHxeOPjwWGuvB548 IHRvcDsnPkJpcnRoIERh aML2TF45WS42mPFxs3M7 pWM3Y6JqKDIixzqb ljvgiJJ8GAEkTIHlyB99 Ww8ikHfbZg4qQZSgRMI1 PIQotIEuG9SejE4aJoGx BYHcKSLqL5EikBFp PBdfL939HZsnVzP8GAQl joEcV8MjTZPvsIkaNiF0 f2F2Oa9KL5L9SR89VK20 rWYph7M0zOK2T2Wu BIHorkowfnsrgKF7FEDe VRDudE70By3wpVmhNr1y FJKuVDM0NMAjoGAzF4Dl eU5mAeXyHLJsVAIr S3DwkODhRLjrT633VSgd YrZ0ZIGyqiFgO5YdWGBh yPywSeF1n8C6Kp0TOQo0 SC44PB54yZDky8F6 xKT8U8HoHBKerdonbwby gCT6OCXeZGKzuW04Wj0x mZhfEs0jQKEzVBC7WKYi fQSoJ3AzaK9qJiXx AHSqKLWqS8RptJHkJVji V071SOldIxG8SLFtrsJl V5YsNCHqmYahSeH2l9U3 Vb2RKYFyPD09BAB9 wWW6WS91ZL03T2XjClry dGFibGU+PHRhYmxlIHdp ZHRoPScxMDAlJyBzdHls ZL3gXn9kEVEiGDGj hQqttCCrNmYqd2exNNTz IYpfEW5cpZumK6HhoQM4 DQVje7s4Ai35N91rK3Ds dXA+OSWwwXG7cFB6 kW5oYdTgHiY6JHciS907 PwFqcMYlBcqng1ypk9wk gGq7NxF3ZRXnchWtuXdx MUJ2z6SeHv14P38m IHdpZHRoPSIxNSUiIHZh cNwhew8zyP0lAo2+PGNv gSU0tRR4cW8lCdGgBiH1 UTbdA543RlQapFRc Tyqkf3dio7yjcWm6FrHg SOAzaaLfpVsaWCM8r1Py Ir23C4RsyYuqv9WtKtm9 up68nSEbs1Z8oOF3 X1AiZIOqfwmdeUPpcSmb CG4fWXGzwvfhHWDilA8j BOBtZ4i0WfMpOiN5ZMqs L8UlraL8ROLouGTu VXxbKWJ9O72sm6H3VPRo VYCzXVR6rFD6vC6ylWfn bjogbGVmdDsgdmVydGlj ODygJSrzH550FLAm wCnaIXQttB7vRNOveFWt hCytHL3hSREaupqoBkZI TklPTiwgVEVERFkgSjwv dGQ+NDXxJNB4kOgv LIdfYGZxrB3nMQFhD4t6 PaZxNrH0SIabM9ZpYIEr mtkoKh77dG7yHeOmFyE2 PIoxA1PbsbD7PYNd nDUxKCobRTS9L70as1D9 YWKkJYLmGSG5tCR0iE4j bGlnbjogbGVmdDsgdmVy zItgWDaqPVhtV817 RHTnbGxeDwE2ZeJeUvP8 KJL9N8VsGer6CZPsnVii EB5tjQPvTNraJv0ztVwk dSsiPJ8iYDXbdlmv CMEjyE8qOHKmuFYmqWkf MO3hWPOdsiqbj832YdVl ROX4WCLghCLkJ2ZlwB4m EtLhEWRjNAEjB3Zj hOUoEKbxE360LLfrPsC8 NLMvffVzU0ZdHGNetHig OhK9f6F2Eb45GXXIHIFj czwvdGQ+PHRkIHN0 yBnyHOtjROFtaQ6lCVFd S0p8NgPvDoV5PDyjA4Ev CEQbbganWp03mS2iTyWc QkF9POpdC1DwjnU8 ZUAcjUMwMSdtPNV7T15k w7X3QAAtDOWeSXJ8lOQ5 yD1nbVvqbjwyqIZjdZcr dmVydGljYWwtYWxp Q160HMKktMeySn9AARH9 W5DmYcc3FKYeiQxcOE2l rQBqWIjdCg6daXlvaAcw JH2iZYYtiddzEROx nZ2pERPfkPOfiYohYO1h SOSmfwsle339OzLgHIP7 JBPngRAnP7RgoC2kZzGg YFStBTWsH5NtpNYx TYzpV760LCaaQgV4IZQd qrUmI7AeTKYnzRuvGpK2 u6Y9Ez9LUBmfnHM+PC90 jh28O4PfLazmPwl9 TPKgNOT6eRC1nZ2sRHMa DKzcc1E3vEV1L9OkqsVo vd7al1gqCNNnWCvpZ73d gOStx0F0XVUqaGM3 FILguVizQrBieB35Ffr+ KMMfsHyyu9PtOnoci0qu x0zfgLt0VnTeYUJyflEy sWdyXMK6y7FnHc58 K22oAZtrDJUlPSCbVVIk RAPekVxrkf6inI6lQv6+ BSYopYW8oZK5bX7bRtVs VdL9TWyvK887AyLu sBLrXvhlc9fev8izpWg9 IjIwJSIgdmFsaWduPSJ0 e4GpHi26B9XioBukb6Bt Dyj5zu23oEOgd4K1 fZP3Z2XqWTSdbcpsuVXb kFmvKD9dYKZbjwxeJUAk sK4tLOYfN4e6CcNkSqK9 EAfkQ9YtevT6POLm yHJdTPEcvPGSjY2hqrjw b1ijnheoYpQrYZRyUYo7 VUt1SXXjtQwmKmAjWHN9 OxB2PIY7jZJbfL3i cLztfuazrM8bViv+UGh5 z5ebjCVyRB2shFH3ZA68 VZ26uGPwc7E5gED8Y2Qb ZGRpbmctcmlnaHQ6 YMAjMVTikD84Ek1byZez Ds5zBBGwSJV9MDGxcETs B8WvuA3sJcXhZJDoZBPj N9BlgQOiQRxgI584 AVjnNsJ6NBPoazJhH7Lc AHGqvTvzXtQ5c4K5Tx6X XR79QO14NU43pFPml5A4 iLD9P0IgCJHxgqqn fhcgbVJ6HVCbGXCmuF14 Jh0wwExiAz1cJXTcADK2 XKXgqFIyY7HrjH6lWcUu JNDcASVgR7QecPAr WJhaZ160JTrqIjB7TCZw foCaT9LoETIklFbaRoM7 s3F7Mj8SUc38EC83LD93 xKTog3J1wHI0M9Ci GYNzwfvhysdliVX5VJOk AOJfuX37Bt4pbIokNk7z USTlHUD6ISEkcOPkK9Gt tU3aFsQwNPYfRGKp W8HycFAjEUhrR733GOok EmB5OAAddoJkY6KhTEIm qJyqUuS7w6D6Dl9KFJrh btx2Y4AoBptarEE+ EL44XRBnIC72wIBtlMXz d2vmmDg6PbXrLOIyDAY1 tUsvXHbat4ZzKXEuD64r fKArz7V7SXQawAot N (more content not included)... [facility] Provider Orderson 11-04-2021 Provider Orders [id number] [facility] Vital Signs Date Time Vital Sign Value Performing Clinician Facility 11-29-2023 15:28-0500 Body height 170.2 cm Tonya Hardik [employer] Work Phone: [facility] 11-29-2023 15:28-0500 Body mass index (BMI) [Ratio] 28.54 kg/m2 Tonya Hardik [employer] Work Phone: [facility] 11-29-2023 15:28-0500 Body temperature 97.11 [degF] Tonya Hardik [employer] Work Phone: [facility] 11-29-2023 15:28-0500 Body weight 82.64 kg Tonya Hardik [employer] Work Phone: [facility] 11-29-2023 15:28-0500 Diastolic blood pressure 80 mm[Hg] Tonya Hardik [employer] Work Phone: [facility] 11-29-2023 15:28-0500 Heart rate 99 /min Tonya Hardik [employer] Work Phone: [facility] 11-29-2023 15:28-0500 Respiratory rate 20 /min Tonya Hardik [employer] Work Phone: [facility] 11-29-2023 15:28-0500 SaO2% (BldA) [Mass fraction] 97 % Tonya Dye [employer] Work Phone: [facility] 11-29-2023 15:28-0500 Systolic blood pressure 138 mm[Hg] Tonyakatja Dye [employer] Work Phone: [facility] 08-30-2022 14:47-0500 Blood Pressure Location Bernadine GUAJARDOL [facility] 08-30-2022 14:47-0500 Diastolic blood pressure 82 mm[Hg] Bernadine GUAJARDOL [facility] 08-30-2022 14:47-0500 Heart rate 76 /min Bernadine GUAJARDOL [facility] 08-30-2022 14:47-0500 Respiratory rate 16 /min Bernadine GUAJARDOL [facility] [place] 08-30-2022 14:47-0500 Systolic blood pressure 138 mm[Hg] Bernadine GUAJARDOL [facility] 08-19-2021 14:30-0400 Body height 170.18 cm Shen Olexa Other [facility] Other 08-19-2021 14:30-0400 Body mass index (BMI) [Ratio] 31.04 kg/m2 Shen Olexa Other [facility] Other 08-19-2021 14:30-0400 Body weight 89.9 kg Shen Olexa Other [facility] Other 07-29-2021 14:30-0400 Body height 170.18 cm Shen Olexa Other [facility] Other 07-29-2021 14:30-0400 Body mass index (BMI) [Ratio] 31.32 kg/m2 Shen Olexa Other [facility] Other 07-29-2021 14:30-0400 Body weight 90.72 kg Shen Olexa Other [facility] Other Encounters Encounter Date Encounter Type Care Provider Facility Start: 02-27-2024 End: 02-27-2024 ambulatory TONYA AICHHOLZ Not Available Start: 02-08-2024 End: 02-08-2024 ambulatory LYNN H TIMMIS Not Available Start: 02-08-2024 End: 02-08-2024 ambulatory [facility] Start: 01-16-2024 End: 01-16-2024 ambulatory TONYA AICHHOLZ Not Available Start: 01-15-2024 End: 01-15-2024 ambulatory LYNN H TIMMIS Not Available Start: 01-03-2024 End: 01-03-2024 ambulatory RANULFO VÁSQUEZFAY Not Available Start: 12-27-2023 End: 12-27-2023 ambulatory Ranulfo Bagley Facility:[facility] Start: 12-26-2023 End: 12-26-2023 ambulatory RANULFO VÁSQUEZFAY Not Available Start: 12-20-2023 End: 12-20-2023 ambulatory Ranulfo Bagley Facility:[facility] Start: 12-18-2023 End: 12-18-2023 ambulatory LYNN H TIMMIS Not Available Start: 11-29-2023 End: 11-29-2023 ambulatory TONYA AICHHOLZ Not Available Start: 11-29-2023 End: 11-29-2023 Office outpatient visit 25 minutes Tonya Aichholz [employer] Work Phone: [facility] Comment on above: Primary hypertension (CMS/[facility]) (Primary Dx); BMI 29.0-29.9,adult; Type 2 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, without long-term current use of insulin, unspecified laterality, unspecified retinopathy severity (CMS/HCC); Type 2 diabetes mellitus with diabetic neuropathy, without long-term current use of insulin (CMS/[facility]); Sebaceous cyst; 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; Ageusia; Peripheral vascular disease, unspecified (I73.9) Start: 11-29-2023 Bamboo flowsheet Tonya Aichholz [employer] Work Phone: [facility] Start: 11-29-2023 Bamboo flowsheet Tonya Aichholz [employer] Work Phone: [facility] Start: 10-31-2023 End: 10-31-2023 ambulatory RANULFO C LAFFAY Not Available Start: 10-31-2023 Preprocedural examination done Tonya Dye [employer] Work Phone: [facility] Start: 10-24-2023 Office outpatient vi sit 15 minutes [facility] Start: 10-24-2023 End: 10-24-2023 ambulatory Tonya Dye Work Phone: [facility] Work Phone: Start: 10-24-2023 End: 10-24-2023 Patient encounter procedure Tonya Hardik Work Phone: [facility] Start: 09-15-2023 End: 09-16-2023 ambulatory KRISHNA VALDES Not Available Start: 01-31-2023 End: 02-01-2023 ambulatory OLI DYE Facility:[facility] Start: 01-27-2023 End: 01-28-2023 ambulatory OLI DYE Facility:[facility] Start: 12-21-2022 End: 12-22-[address] OMID RICKS Facility:[facility] Start: 11-20-2022 Encounter for other preprocedural examination MR KRISHNA VALDES . [facility] Start: 11-18-2022 End: 11-19-2022 ambulatory MR KRISHNA VALDES . Facility:[facility] Start: 11-18-2022 End: 11-19-2022 Encounter for other preprocedural examination MR KRISHNA VALDES . Facility: Start: 10-25-2022 End: 10-26-2022 ambulatory Bernadine PLATT Facility:[facility] Start: 10-25-2022 End: 10-25-2022 Patient encounter procedure [facility]adine PLATT [facility] Start: 10-12-2022 End: 10-13-2022 ambulatory Bernadine PLATT Facility:[id number] Start: 10-07-2022 ambulatory OLI MYERSA HARDIK [facility] ity:[facility] Start: 09-22-2022 End: 09-23-2022 ambulatory [...] 12-16-2021 End: 12-16-2021 ambulatory Shen Olexa Other [facility] Other Start: 12-16-2021 Telephone encounter Shen Janelle [facility] Start: 12-14-2021 End: 12-14-2021 ambulatory Shen Olexa Other [facility] Other Start: 12-14-2021 Office outpatient vi sit 15 minutes Shen Olexa [facility] Start: 08-19-2021 End: 08-19-2021 ambulatory Shen Olexa Other [facility] Other Start: 08-19-2021 Office outpatient vi sit 10 minutes Shen Olexa [facility] Start: 08-11-2021 Telephone encounter Krishna Bach rg [facility] Start: 07-29-2021 Office outpatient ne w 30 minutes Shen Luis [facility] Procedures Date Procedure Procedure Detail Performing Clinician Start: 10-24-2023 Plain X-ray of bilat eral elbows Tonya Dye Work Phone: Start: 01-27-2023 PSA screening [facility] DYE Comment on above: Performed By: #### B MP #### [facility] [address] [place] [address] Dr. Lucho De León Start: 10-12-2022 Excisional biopsy Blair PLATT Start: 03-28-2022 Inspection of Lower Intestinal Tract, Via Natural or Artificial Opening Endoscopic BRASS BUFFER TONYA DYE Start: 03-28-2022 Inspection of Upper Intestinal Tract, Via Natural or Artificial Opening Endoscopic [facility] BUFFER [facility] Start: 03-26-2022 Transfusion of Nonau tologous Red Blood Cells into Peripheral Vein, Percutaneous Approach BRASS BUFFER TON[facility] DYE Start: 11-10-2021 Endarterectomy and angioplasty of common femoral artery Bernadine PLATT Start: 03-09-2021 Angioplasty of super ficial femoral artery Bernadine PLATT Start: 10-16-2016 Colonoscopy Tonya myers NP Work Phone: Repair of musculoten dinous cuff of shoulder Bernadine PLATT Plan of Treatment Date Care Activity Detail Author Start: 10-16-2026 Screening for malign ant neoplasm of colon [facility] Start: 11-22-2024 Glaucoma screening Diabetes: R etinopathy Screening [facility] Start: 02-27-2024 End: 02-27-2024 Patient encounter procedure 02/27/2024 3:00 PM EDT Office Visit [facility] [address] [place] [id number] Tonya Dye NP [address] [place] [phone] [facility] Start: 01-28-2024 Urine screening for protein Diabetes: Urine Protein Screening [facility] Start: 11-29-2023 End: 11-29-2023 Patient encounter procedure 11/29/2023 3:20 PM EST [facility] [address] [place] [id number] Tonya Dye NP [address] [place] [id number] Arrived [facility] Comment on above: Arrived Start: 11-29-2023 End: 11-29-2024 CT Maxillofacial region WO and W contrast IV CT SINUS WO IV CONTRAST Imaging Routine 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 [facility] Expected: 11/29/2023 (Approximate), Expires: 11/29/2024 [facility] Comment on above: Expected: 11/29/2023 (Approximate), Expires: 11/29/2024 Start: 11-29-2023 Hemoglobin A1c measurement Diabetes: Hemoglobin A1C [facility] Start: 11-29-2023 End: 11-29-2024 Hemoglobin A1c/Hemoglobin.total in Blood Hemoglobin A1c Lab Routine Type 2 diabetes mellitus with diabetic neuropathy, without long-term current use of insulin ([facility]) Expected: 11/29/2023 (Approximate), Expires: 11/29/2024 [facility] Work Phone: Comment on above: Expected: 11/29/2023 (Approximate), Expires: 11/29/2024 Start: 04-15-2023 Glaucoma screening Diabetes: R etinopathy Screening [facility] Start: 1950 Medicare Annual Well ness (AWV) Medicare Annual Wellness (AWV) [facility] Start: 1950 Screening for malign ant neoplasm of colon [facility] Immunizations Immunization Date Immunization Notes Care Provider Fa cili 08-03-2023 Influenza, High-dose Seasonal, Quadrivalent, Preservative Free Tonya Dye NP Work Phone: [facility] 12-17-2022 zoster vaccine recombinant Tonya Aichholz [employer] Work Phone: [facility] 07-27-2022 influenza, injectabl e, quadrivalent, preservative free Tonya Aichholz [employer] Work Phone: [facility] 07-29-2021 Kenalog -40 mg Shen Olexa Other [facility] Other 12-24-2020 COVID-19 [id number] (Venkatesh) Tonya Aichholz Work Phone: [facility] 09-07-2020 pneumococcal polysaccharide vaccine, 23 valent Shen Olexa Other [facility] Other 06-30-2020 influenza, injectabl e, quadrivalent, preservative free Tonya Aichholz [employer] Work Phone: [facility] 06-30-2020 influenza, seasonal, injectable Shen Olexa Other [facility] Other 08-07-2019 pneumococcal conjuga te vaccine, 13 valent Shen Olexa Other [facility] Other 07-25-2019 influenza, high dose seasonal, preservative-free Tonya Aichholz [employer] Work Phone: [facility] 08-26-2017 zoster vaccine, live Tonya chholz PARK SERVICES SPECIALIST Work Phone: [facility] 08-01-2003 tetanus toxoid, adsorbed Tonya Aichholz P[employer] SERVICES SPECIALIST Work Phone: [facility] Payers Date Payer Category Payer Self-pay [id number] 2017 Unknown GENERIC OTHER GE NERIC OTHER [id number] 2017-Present [phone] [address] [place] [address] [id number]. [id number] 2016 Medicare MEDICARE MEDICAR E PART B [id number] 2016-[place] [place] [address] Medicare [id number]. [id number] 1959 Medicare [id number] 2.16.840.1.637067.19 1959 Unknown [id number] 2.16.840.1.474897.19 1951 Unknown [id number] 2.16.840.1.609087.3.579.2.72 7 1951 Unknown [id number] 2.16.840.1.839063.3.579.2.72 7 1951 Unknown [id number] 2.16.840.1.738828.3.579.2.72 7 1951 Unknown [id number] 2.16.840.1.485618.3.579.2.72 7 1951 Unknown [id number] 2.16.840.1.766031.3.579.2.59 3 1951 Unknown [id number] 2.16.840.1.003259.3.579.2.59 3 1951 Unknown [id number] 2.16.840.1.442003.3.579.2.59 3 1951 Unknown [id number] 2.16.840.1.037687.3.579.2.59 3 1951 Unknown [id number] 2.16.840.1.991158.3.579.2.59 3 1951 Unknown [id number] 2.16.840.1.004431.3.579.2.59 3 1951 Unknown [id number] 2.16.840.1.761786.3.579.2.59 3 1951 Unknown [id number] 2.16.840.1.977226.3.579.2.59 3 1951 Unknown [id number] 2.16.840.1.657666.3.579.2.59 3 1951 Unknown [id number] 2.16.840.1.962959.3.579.2.59 3 1951 Unknown [id number] 2.16.840.1.420244.3.579.2.59 3 1951 Unknown [id number] 2.16.840.1.908522.3.579.2.59 3 1951 Unknown [id number] 2.16.840.1.742820.3.579.2.59 3 1951 Unknown [id number] 2.16.840.1.864864.3.579.2.59 3 1951 Unknown [id number] 2.16.840.1.169623.3.579.2.12 86 1951 Unknown [id number] 2.16.840.1.633931.3.579.2.12 59 1951 Unknown [id number] 2.16.840.1.769204.3.579.2.12 59 1951 Unknown [id number] 2.16.840.1.997966.3.579.2.12 59 1951 Unknown [id number] 2.16.840.1.222622.3.579.2.12 59 1951 Unknown [id number] 2.16.840.1.813165.3.579.2.12 59 1951 Unknown [id number] 2.16.840.1.550743.3.579.2.12 59 1951 Unknown [id number] 2.16.840.1.334395.3.579.2.12 59 1951 Unknown [id number] 2.16.840.1.632824.3.579.2.12 59 1951 Unknown [id number] 2.16.840.1.729905.3.579.2.12 59 1951 Unknown [id number] 2.16.840.1.456069.3.579.2.12 59 1951 Unknown [id number] 2.16.840.1.273697.3.579.2.12 59 1951 Unknown [id number] 2.16.840.1.612347.3.579.2.12 59 Unknown [facility] [id number] Unknown HCAP/HFA/FAP Active [id number] Unknown [id number] 2.16.840.1.239384.3.579.2.53 1 Unknown [id number] 2.16.840.1.240775.3.579.2.53 1 Unknown [id number] 2.16.840.1.551419.3.579.2.53 1 Social History Date Type Detail Facility Start: 10-31-2023 End: 11-29-2023 Sex Assigned At [facility] Start: 08-30-2022 Tobacco smoking status Heavy t obacco smoker (finding) [facility] Tobacco smoking status Never Gener [facility] Start: 03-14-2021 [facility] Start: 1950 Sex Assigned At Male F [facility] Start: 10-30-2023 [facility] History of tobacco use Cigarette Smoker [facility] Start: 10-30-2023 End: 11-29-2023 Cigarettes smoked current (pack per day) - Reported 1 [facility] Start: 10-30-2023 Tobacco use and exposure Smokeless tobacco non-user [facility] Start: 11-29-2023 Alcohol intake Lifetime non-d heath (finding) [facility] Start: 1950 Sex Assigned At Not on file N [facility] Medical Equipment Procedure Code Equipment Code Equipment Origin al Text Equipment Identifier Dates NovoFine 32G X 6 MM Start : 09-24-2020 Multiple periphe ral artery stent, bare-metal [id number] [facility] Start: 03-09-2021 Functional Status Date Assessment Result Facility 08-30-2022 Functional Status N/A General Benjamin makayla Gallagher Clinical Notes 03-09-2021 to 11-29-2023 Tonya Dye NP - 11/29/2023 4:38 PM ESTTonya Dye, SHIVAM - 11/29/2023 4:36 PM ESTTonya Dye, PARK SERVICES SPECIALIST - 11/29/2023 4:34 PM ESTClaudiasa Hardik, PARK SERVICES SPECIALIST - 11/29/2023 4:34 PM EST Note Date [...] Uncontrolled type 2 diabetes mellitus with hyperglycemia ([facility]) Check blood sugars daily, notify if <70 [...] being taken. 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 Hypertension This is a [...] right Psoriasis (CMS/HCC) PVD (peripheral vascular disease) ([facility]/HCC) Retinopathy, diabetic, bilateral (CMS/HCC) Ringing in ears, right Seasonal allergies Sebaceous cyst Tobacco user Uncontrolled type 2 diabetes mellitus with hyperglycemia ([facility]/HCC) Vitamin B12 deficiency Past Surgical History: Procedure [...] SINUS WO IV CONTRAST BMI 29.0-29.9,adult Diabetes ([facility]) Relevant Orders Hemoglobin A1c HTN (hypertension) ([facility]) - Primary No changes needed in medication regimine Sebaceous cyst Still waiting on approval from [facility] to stop plavix for proceedure [facility] Relevant Orders CT SINUS WO IV CONTRAST documented in this encounter [facility] 10-24-2023 Evaluation note Encounter [...] Pain in right elbow (ICD-10 - M25.521) [facility] Other 12-29-2022 Hospital Discharge instructions Follow Up Care 10/13/2022 10:40:40 With:MANJIT WILKINS, JULIA Mays Address: [place] [address]- When: only if needed General Surgery [facility] [id number] NoteOPERATIVE NOTE OPERATION DATE: 10/12/2022 PREOPERATIVE DIAGNOSIS: [...] area in good condition. CC: Tonya Dye, [facility]11-20-2022 NoteChief Complaint consultation for sebaceous cyst [...] plan excisional biopsy under local anesthesia at [facility] once inflammation has decreased; approximately4 weeks; informed [...] Cipro (Itching) Victoza (Itchin (more content not included)...[facility]Result Comment: Electronically Signed By: MANJIT WILKINS, Bernadine Calle\Date and Time Signed: 09/04/22 11:08 [id number] Evaluation note* Encounter Date Diagnosis Assessment Notes [...] of right lower extremity (ICD-10 - I82.491) [facility] Other 11-04-2021 Evaluation note* Encounter Date Diagnosis Assessment Notes Treatment Notes Treatment Clinical Notes Aug, Arthritis of right knee (ICD-10 - M17.11) Patient is doing well at this time. He will continue daily strengthening exercises and progress activity as tolerated [facility] Other 10-14-2021 Evaluation note* Encounter Date Diagnosis [...] MRI for further evaluation for meniscal tear. [facility] Other 05-25-2021 History general Narrative - Reported* Type Description Date Medical History type II diabetes Medical History HTN Medical History psoriasis Surgical History rotator cuff tear repair 011 Surgical History right leg angioplasty 03/09/21 Hospitalization History see surgical [facility] Other 05-25-2021 History general Narrative - Reported* Type Description Date Medical History type II diabetes Medical History HTN Medical History psoriasis Medical History DVT Surgical History rotator cuff tear repair 011 Surgical History right leg angioplasty 03/09/21 Hospitalization History see surgical [facility] Other Evaluation + Plan note No data available for this section General Surgery [facility] Evaluation noteNo InformationNort [employer] Other Evaluation noteNo assessment information available [facility] Work Phone: Evaluation note* Diagnosis [...] data available for this section General Surgery [facility] Progress note No data available for this section General Surgery [facility] Summary Purpose Family History No Family History [...] IV CONTRAST Tonya Dye, SHIVAM [address] [place] [address] Referral ID Status Reason Start Date Expiration Date V isits Requested Visits Authorized [id number] Pending Review 11/29/2023 05/27/2024 1 1 Additional Source Comments (unrecognized sect ion and content) No Status Records FoundNo Status Records FoundNo Status Records FoundNo Status Records FoundNo Status Records FoundNo Status Records Found INFORMATION SOURCE (unrecogn ized section and content) DATE CREATED AUTHOR 11/08/2021 [facility] DATE CREATED AUTHOR AUTHOR'S ORGANIZ ATION 10/26/2022 [facility] DATE CREATED AUTHOR AUTHOR'S ORGANIZ ATION 02/05/2023 [facility] DATE CREATED AUTHOR AUTHOR'S ORGANIZ ATION 01/05/2024 [facility] DATE CREATED AUTHOR AUTHOR'S ORGANIZ ATION 02/09/2024 [facility] DATE CREATED AUTHOR AUTHOR'S ORGANIZ ATION 02/29/2024 [facility] d[facility] Specialists EPIC REASON FOR VISIT [...] Active Shen Luis MD Attending Provider Active Pharmacy Technician Relationship Specialty Start Date End Date Mumtaz Harry MD [address] [place] [id number] PCP - General Family Medicine 11/28/23 Tonya Dye NP [address] [place] [id number] Referring Physician Nurse Practitioner 03/09/23 Pharmacy Technician Relationship Specialty Start Date End Date Mumtaz Harry MD [address] [place] [id number] PCP - General Family Medicine 11/28/23 Tonya Dye NP [address] [place] [id number] Referring Physician Nurse Practitioner 03/09/23 Goals (unrecognized [...] BE BASED ON THE PRIMARY CLINICAL RECORDS. [facility] [facility]. provides no warranty or guarantee of the accuracy or completeness of information in this document.
[2024-03-11] MEDS: CEFTRIAXONE 1,000 MG in 0.9 % SODIUM CHLORIDE 50 ML 100 MG IV (05:07)
[2024-03-11] MEDS: ACETAMINOPHEN 325 MG TABLET 650 MG PO ×2 (05:16→15:57)
[2024-03-11 05:38] LABS: Hematocrit 45.4 % (42.0-54.0); Hemoglobin 15.2 g/dL (14.0-18.0); Mean Corpuscular HGB Conc 33.5 g/dL (29.9-35.2); Mean Corpuscular Hemoglobin 31.3 pg (25.9-34.0); Mean Corpuscular Volume 93.6 fL (80.0-94.0); Mean Platelet Volume 10.1 fL (9.5-13.5); Platelet Count 180 10^3/uL (150-450); Red Blood Count 4.85 10^6/uL (4.70-6.10); Red Cell Distribution Width 14.5 % (11.0-15.0); White Blood Count 15.8 10^3/uL (4.0-11.0)
[2024-03-11 05:52] LABS: Anion Gap 13.9; BUN Creatinine Ratio 26.5; Calcium 8.3 mg/dL (8.5-10.1); Chloride 104 mmol/L (98-107); Estimated GFR (African America >60 (>=60); Estimated GFR (Non-African Ame >60 (>=60); Glucose 112 mg/dL (74-106); Potassium 3.9 mmol/L (3.5-5.1); Sodium 136 mmol/L (136-145)
[2024-03-11 06:32] LABS: Atypical Lymphocytes Abs Man 1.26; Band Neutrophils Absolute 1.7 10^3/uL (0.0-0.3); Lymphocytes Absolute Manual 0.79 10^3/uL (1.20-3.80); Monocytes Absolute Manual 2.21 10^3/uL (0.30-0.80); Segmented Neut Absolute Manual 9.79 10^3/uL (1.4-6.5)
--- NOTE | 2024-03-11 08:54 | XR_ITS ---
[address] [address] Patient Name: TERRI LOWE MRN: [id number] date: 1950 Sex: M Assigned Patient Location: [place] Current Patient Location: [place] Accession/Order Number: [id number] Exam Date: 03/11/2024 09:10 Report Date: 03/11/2024 10:15 At the request of: MAYELA GUZMÁN Procedure: XR chest 1V EXAMINATION: XR chest 1V REASON FOR EXAM: Hypoxia. COMPARISON: 03/10/2024. FINDINGS: Lung volumes are shallow. Heart size is normal. No pneumothorax or edema. There is some minor atelectasis or infiltrate right base. XR/XR chest 1V IMPRESSION: 1. Density at right lung base is presumably atelectasis. 2. No other acute findings. Electronically authenticated by: JANETTE JUARES Date: 03/11/2024 10:15
--- NOTE | 2024-03-11 08:56 | PM.HP ---
HPI H&P: HPI History of Present Illness Chief complaint: General Weakness Narrative: Patient is a 73 y.o male with past medical history of 1 PPD smoker, HLD, PVD, non-insulin dependent type 2 diabetes, HTN, BPH, with Diabetic neuropathy who presented to the ER yesterday evening with complaints of weakness and new onset fever. 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 He was wearing a mask when he mowed. He checked his temp which was 102. He took some tylenol and went to bed. He said he laid there for about 8 hours and called EMS when he did not have the strength to move. In the ER, patient's temp was 99 and tachycardic so sepsis protocol initiated but was ruled out when lactate came back normal. He smokes 1ppd, he denies any diagnosis of COPD or emphysema. He denies any history of CHF. Findings from the ER: CXR showed bilateral opacities vs infiltrates, WBC's elevated 15.8, ProBNP 954. Viral testing negative. Patient was admitted with bilateral pneumonia to the hospitalist service. Opioid HPI Opioid Management Most Recent Opioid Data: Last Pain Scale 4 03/11/24 10:51 Last Pain Assessment 03/11/24 10:51 Last MAR Pain Assessment 03/11/24 06:16 Last ORT Total Score 0 03/11/24 02:32 Last ORT Risk Category Low Risk 03/11/24 02:32 Review of Systems ROS Narrative ROS: a complete review of systems were reviewed with patient and are positive as below or listed in History of Chief Complaint. General: fever, chills, no night sweats Head: no headache, trauma, visual changes, nausea or vomiting Skin: no reported rashes, itching or sores Eyes: no blurriness of vision Ears: no reported hearing loss, vertigo, earache, or tinnitus Throat: no sore throat, hoarseness, swelling of neck, or tongue pain Heart: no chest pain Lungs: no shortness of breath, but dry cough GI: no diarrhea or vomiting/nausea Urinary: no urinary urgency, frequency or pain Neuro: no numbness or tingling HEM: no bleeding issues or bruising ENDO: no thyroid problems Psych: no anxiety or depression PFSH PFSH Medical History Peripheral neuropathy ?G62.9 - Polyneuropathy, unspecified (ICD-10) Hyperlipidemia associated with type 2 diabetes mellitus ?E11.69 - Type 2 diabetes mellitus with other specified complication (ICD-10) ?E78.5 - Hyperlipidemia, unspecified (ICD-10) Non-insulin dependent type 2 diabetes mellitus ?E11.9 - Type 2 diabetes mellitus without complications (ICD-10) Hypertension ?I10 - Essential (primary) hypertension (ICD-10) Smoker ?F17.200 - Nicotine dependence, unspecified, uncomplicated (ICD-10) Social History Highest level of school completed/degree received: high school graduate Do you think of yourself as: straight/heterosexual Gender Identity: male Meds Home Medications and Allergies Home Medications ?Medication ?Instructions ?Recorded ?Confirmed ?Type clopidogrel 75 mg tablet 75 mg PO DAILY 01/25/24 03/10/24 History dapagliflozin propanediol 10 mg 10 mg PO DAILY 01/25/24 03/10/24 History tablet (Farxiga) gabapentin 400 mg capsule 600 mg PO QID 01/25/24 03/10/24 History glipizide 10 mg tablet 10 mg PO BID 01/25/24 03/10/24 History metformin 1,000 mg tablet 1,000 mg PO BID 01/25/24 03/10/24 History metoprolol tartrate 50 mg tablet 50 mg PO BID 01/25/24 03/10/24 History pioglitazone 45 mg tablet 45 mg PO DAILY 01/25/24 03/10/24 History simvastatin 20 mg tablet 20 mg PO DAILY 01/25/24 03/10/24 History tamsulosin 0.4 mg capsule 0.4 mg PO DAILY 01/25/24 03/10/24 History Allergies Allergy/AdvReac Type Severity Reaction Status Date / Time ciprofloxacin [From Cipro] Allergy Severe Verified 03/10/24 22:17 dulaglutide [From Trulicity] Allergy Severe Verified 03/10/24 22:17 liraglutide [From Victoza] Allergy Severe Verified 03/10/24 22:17 Penicillins Allergy Severe Verified 03/10/24 22:17 Exam Narrative Exam Narrative: General: Patient is alert, and oriented to person, place and time with normal affect, proper hygiene Skin: no visible rashes, or ulcers Head: atraumatic, acephalic Eyes: PERRLA, no nystagmus present, conjunctiva clear, no scleral icterus Nose: symmetric, no discharge, no maxillary or frontal sinus tenderness Mouth/Throat: poor dentition Neck: no masses palpated, normal thyroid, no JVD or audible carotid bruits Heart: Normal rate and rhythm, no murmurs/rubs/gallops Lungs: audible wheezes right mid and lower lobe Abdomen: Normal audible bowel sounds, no distension, No palpable masses, no organomegaly, no rebound/guarding/ or rigidity Musculoskeletal: no swelling bilateral lower extremities Neuro: CN II-X grossly intact Constitutional Vital Signs, click to edit/add: Last Vital Signs Temp 99.1 F 03/11/24 07:33 Pulse 98 H 03/11/24 08:11 Resp 20 03/11/24 07:33 BP 129/77 03/11/24 07:33 Pulse Ox 91 L 03/11/24 07:33 O2 Del Method Nasal Cannula 03/11/24 07:33 O2 Flow Rate 2 03/11/24 07:33 Results Labs Labs: Short CBC 03/10/24 03/11/24 Range/Units 22:25 05:20 WBC 15.4 H 15.8 H (4.0-11.0) 10^3/uL Hgb 16.4 15.2 (14.0-18.0) g/dL Hct 48.6 45.4 (42.0-54.0) % Plt Count 198 180 (150-450) 10^3/uL BMP 03/10/24 03/11/24 22:25 05:20 Sodium 135 L 136 Potassium 4.2 3.9 Chloride 101 104 Carbon Dioxide 23.4 22.0 BUN 21.0 H 18.0 Creatinine 0.87 0.68 L Glucose 143 H 112 H Calcium 9.3 8.3 L Liver Function 03/10/24 Range/Units 22:25 Total Bilirubin 0.7 (0.2-1.0) mg/dL AST 18 (15-37) U/L ALT 25 (16-63) U/L Alkaline Phosphatase 106 (46-116) U/L Albumin 3.2 L (3.4-5.0) g/dL Assessment and Plan Assessment and Plan (1) Atypical pneumonia: Assessment and Plan: repeat X-ray shows infiltrated RLL, continue with azith and rocephin. Add pulmicort and scheduled duonebs. OPEP therapy. patient not requiring oxygen at this time. Monitor. Viral testing negative. Blood cultures pending. Sepsis ruled out with normal lactate and by treating fever. (2) Generalized weakness: Assessment and Plan: due to #1 (3) New onset of congestive heart failure: Assessment and Plan: unknown type. patient with history of HTN, HLD, elevated proBNP, will check Echo, no edema or vascular congestion seen on chest X-ray. oxygen sats ok. Will monitor. (4) Smoker: Assessment and Plan: no desire to quite at this time (5) Hypertension: Assessment and Plan: continue home meds Qualifiers: Hypertension type: secondary to endocrine disorders Qualified Code(s): I15.2 - Hypertension secondary to endocrine disorders (6) Non-insulin dependent type 2 diabetes mellitus: Assessment and Plan: hold PO meds, SSI with qachs FSBS. (7) Hyperlipidemia associated with type 2 diabetes mellitus: Assessment and Plan: continue statin (8) Peripheral neuropathy: Assessment and Plan: continue gabapentin Qualifiers: Peripheral neuropathy type: polyneuropathy, unspecified Qualified Code(s): G62.9 - Polyneuropathy, unspecified Plan patient is a full code lovenox for dvt prophylaxis patient is in inpatient status and is expected to cross 2 midnights for as needed necessary care for treatment of his CAP and new onset heart failure.
[2024-03-11] MEDS: CANAGLIFLOZIN 100 MG TABLET 300 MG PO (09:23)
[2024-03-11] MEDS: METOPROLOL TARTRATE 50 MG TABLET PO ×2 (09:23→22:10)
[2024-03-11] MEDS: TAMSULOSIN HCL 0.4 MG CAPSULE 0.400000000000000022 MG PO (09:24)
[2024-03-11] MEDS: CLOPIDOGREL BISULFATE 75 MG TABLET PO (09:24)
[2024-03-11] MEDS: IPRATROPIUM/ALBUTEROL SULFATE 3 ML AMPUL.NEB IH ×3 (11:03→22:32)
[2024-03-11] MEDS: BUDESONIDE 0.5 MG/2 ML AMPULE NEB IH ×2 (11:03→22:32)
[2024-03-11 11:07] LABS: Glucometer 203 mg/dL (74-106)
[2024-03-11] MEDS: GABAPENTIN 300 MG CAPSULE 600 MG PO ×3 (11:13→22:09)
--- NOTE | 2024-03-11 12:07 | CA_ITS ---
Patient Name: TERRI LOWE MR#: [id number] : 1950 Exam Date: 03/12/2024 Ordering Doctor: MAYELA GUZMÁN . ECHOCARDIOGRAM REPORT PROCEDURE: CA ECHO DOPPLER COMPLETE INDICATIONS: elevated pro BNP, new onset COMPARISON: None. DESCRIPTION: COMPLETE ECHOCARDIOGRAM Real-time transthoracic echocardiography with 2D, M-mode, spectral and color flow Doppler performed. QUALITY: Technical quality was adequate. LEFT VENTRICLE: Normal chamber size. Moderate concentric left ventricular hypertrophy. Global left ventricular systolic function is normal. LV EF: Estimated left ventricular ejection fraction is 60-65% DIASTOLIC: ATRIAL SEPTUM: LEFT ATRIUM: Mild dilatation. RIGHT ATRIUM: Normal chamber size. RIGHT VENTRICLE: Normal chamber size. Normal right ventricular systolic function. TRICUSPID VALVE: Normal mobility and thickness. No stenosis with trivial regurgitation. No evidence of pulmonary hypertension. RVSP 31 mmHg MITRAL VALVE: Normal mobility and thickness. No evidence of mitral valve stenosis. Trivial mitral regurgitation. AORTIC VALVE: Severely calcified aortic valve. Severely diminished mobility. Doppler velocity suggest severe aortic valve stenosis. DVI 0.25, MICA 0.74 cm2, Vmax 3.93 m/s, Mean gradient 41 mmHg. Trivial aortic regurgitation. AORTIC ROOT: Normal diameter and appearance. PULMONIC VALVE: Normal thickness and mobility. No stenosis. No regurgitation. PERICARDIUM: No evidence of pericardial effusion. IVC: Collapses with inspirations. Normal size. PLEURA: CONCLUSION: 1. Moderate concentric left ventricular hypertrophy with normal systolic function. LVEF is 60 to 65%. 2. Grade 2 diastolic dysfunction. 3. Normal right ventricular size and systolic function. 4. Severe aortic valve stenosis. 5. Normal right-sided pressures. Adult Echocardiography Procedure Report Left Ventricle LVEDD (3.7 - 5.6 cm): 2.91 cm LVESD (2.2 - 4.0 cm): 2.14 cm LVIVS thickness (0.6 - 1.2 cm): 1.37 cm LVPW thickness (0.5 - 1.0 cm): 1.38 cm e': 0.07 m/s E - e': 15.23 LVOT Max Gradient: 3.96 mm[Hg] LVOT Area (cm2): 0.99 m/s Peak Velocity (LVOT): 0.99 m/s Mean Velocity (LVOT): 0.77 m/s LVOT Diameter 1.93 cm Left Ventricular Ejection Fraction: 60.63 % Left Atrium LA Volume Index (2D A2C): 40.74 ml/m2 Left Atrium Systolic Dimension: 3.99 cm Mitral Valve MV E to A Ratio: 0.99, 0.95 Mitral Valve A-Wave Peak Velocity: 1.17 m/s Mitral Valve E-Wave Peak Velocity: 1.13 m/s Right Ventricle RV Internal Diastolic Dimension: 2.96 cm Aorta AO Root Diam: 2.58 cm Aortic Valve AoV Area (Peak Ravi): 0.74 cm2, 0.74 cm2 AoV Area (VTI): 0.69 cm2, 0.71 cm2 Peak Velocity(Antegrade Flow): 3.93 m/s, 3.93 m/s, 3.96 m/s Peak Gradient(Antegrade Flow): 61.88 mm[Hg], 61.88 mm[Hg], 62.86 mm[Hg] Mean Velocity(Antegrade Flow): 3.08 m/s, 3.04 m/s, 2.70 m/s Mean Gradient(Antegrade Flow): 41.12 mm[Hg], 40.14 mm[Hg], 34.68 mm[Hg] Velocity Time Integral: 90.76 cm, 91.38 cm, 99.26 cm Tricuspid Valve Peak Velocity (Regurgitant Flow): 1.25 m/s, 2.67 m/s Pulmonic Valve Mean Gradient: 2.84 mm[Hg], 2.66 mm[Hg] Mean Velocity: 0.79 m/s, 0.78 m/s Peak Velocity: 1.11 m/s Peak Gradient: 5.05 mm[Hg], 4.73 mm[Hg] Right Atrium Right Atrium Systolic Pressure: 34.40 ml, 34.40 ml Dictated by: Laurent Galindo M.D. on 03/12/2024 at 18:48 Approved by: Laurent Galindo M.D. on 03/12/2024 at 18:56
[2024-03-11] MEDS: ENOXAPARIN SODIUM 40 MG/0.4 ML SYRINGE SUBQ (13:03)
[2024-03-11 14:58] LABS: Glucometer 269 mg/dL (74-106)
[2024-03-11] MEDS: METFORMIN HCL 500 MG TABLET 1000 MG PO (14:58)
[2024-03-11] MEDS: GLIPIZIDE 10 MG TABLET PO (14:59)
--- NOTE | 2024-03-11 17:06 | RESP.RT ---
Placed on room air
[2024-03-11] MEDS: PIOGLITAZONE 15 MG TABLET 45 MG PO (18:04)
[2024-03-11 20:03] LABS: Glucometer 156 mg/dL (74-106)
[2024-03-11] MEDS: ATORVASTATIN CALCIUM 10 MG TABLET PO (22:10)
[2024-03-12] VITALS (9 sets, daily range): BP systolic 117–131; BP diastolic 70; PULSE 79–112; TEMP 36.8–37.2; O2SAT 90–93
[2024-03-12] MEDS: AZITHROMYCIN 500 MG in 0.9 % SODIUM CHLORIDE 250 ML 250 MG IV (01:49)
[2024-03-12] MEDS: CEFTRIAXONE 1,000 MG in 0.9 % SODIUM CHLORIDE 50 ML 100 MG IV (03:10)
[2024-03-12] MEDS: IPRATROPIUM/ALBUTEROL SULFATE 3 ML AMPUL.NEB IH ×2 (04:53→11:27)
[2024-03-12 05:14] LABS: Basophils Percent Auto 0.4 % (0.2-2.0); Eosinophils Absolute Auto 0.1 10^3/uL (0.0-0.7); Eosinophils Percent Auto 0.5 % (0.9-7.0); Hematocrit 39.8 % (42.0-54.0); Hemoglobin 13.4 g/dL (14.0-18.0); Immature Granulocytes Abs Auto 0.05 10^3/uL (0.00-0.03); Immature Granulocytes Pct Auto 0.4 % (0.0-0.5); Lymphocytes Absolute Auto 1.8 10^3/uL (1.2-3.8); Lymphocytes Percent Auto 15.8 % (20.5-60.0); Mean Corpuscular HGB Conc 33.7 g/dL (29.9-35.2); Mean Corpuscular Hemoglobin 31.9 pg (25.9-34.0); Mean Corpuscular Volume 94.8 fL (80.0-94.0); Mean Platelet Volume 10.4 fL (9.5-13.5); Monocytes Percent Auto 9.2 % (1.7-12.0); Neutrophils Absolute Auto 8.3 10^3/uL (1.4-6.5); Neutrophils Percent Auto 73.7 % (43.0-75.0); Platelet Count 176 10^3/uL (150-450); Red Cell Distribution Width 14.6 % (11.0-15.0); White Blood Count 11.3 10^3/uL (4.0-11.0)
[2024-03-12 05:39] LABS: Alanine Aminotransferase 15 U/L (16-63); Albumin Globulin Ratio 0.6; Albumin Level 2.3 g/dL (3.4-5.0); Alkaline Phosphatase 74 U/L (46-116); Anion Gap 11.1; Aspartate Amino Transferase 13 U/L (15-37); BUN Creatinine Ratio 32.4; Bilirubin Total 0.4 mg/dL (0.2-1.0); Calcium 8.4 mg/dL (8.5-10.1); Carbon Dioxide 24.6 mmol/L (21.0-32.0); Chloride 103 mmol/L (98-107); Estimated GFR (African America >60 (>=60); Estimated GFR (Non-African Ame >60 (>=60); Globulin 3.9 g/dL; Glucose 92 mg/dL (74-106); Potassium 3.7 mmol/L (3.5-5.1); Sodium 135 mmol/L (136-145); Total Protein 6.2 g/dL (6.4-8.2)
[2024-03-12] MEDS: GABAPENTIN 300 MG CAPSULE 600 MG PO ×2 (05:53→12:33)
[2024-03-12] MEDS: TAMSULOSIN HCL 0.4 MG CAPSULE 0.400000000000000022 MG PO (08:08)
[2024-03-12] MEDS: ENOXAPARIN SODIUM 40 MG/0.4 ML SYRINGE SUBQ (08:08)
[2024-03-12] MEDS: CLOPIDOGREL BISULFATE 75 MG TABLET PO (08:08)
[2024-03-12] MEDS: GLIPIZIDE 10 MG TABLET PO (08:08)
[2024-03-12] MEDS: METFORMIN HCL 500 MG TABLET 1000 MG PO (08:09)
[2024-03-12] MEDS: METOPROLOL TARTRATE 50 MG TABLET PO (08:09)
[2024-03-12] MEDS: CANAGLIFLOZIN 100 MG TABLET 300 MG PO (08:09)
--- NOTE | 2024-03-12 09:07 | PM.PN ---
Exam Constitutional Vital Signs, click to edit/add: Last Vital Signs Temp 98.3 F 03/12/24 08:11 Pulse 106 H 03/12/24 08:11 Resp 18 03/12/24 08:11 BP 131/70 03/12/24 08:11 Pulse Ox 90 L 03/12/24 08:11 O2 Del Method Room Air 03/12/24 08:11 O2 Flow Rate 2 03/11/24 17:01 Progress Note: Objective Labs Labs: Short CBC 03/12/24 Range/Units 04:31 WBC 11.3 H (4.0-11.0) 10^3/uL Hgb 13.4 L (14.0-18.0) g/dL Hct 39.8 L (42.0-54.0) % Plt Count 176 (150-450) 10^3/uL BMP 03/12/24 04:31 Sodium 135 L Potassium 3.7 Chloride 103 Carbon Dioxide 24.6 BUN 22.0 H Creatinine 0.68 L Glucose 92 Calcium 8.4 L Liver Function 03/12/24 Range/Units 04:31 Total Bilirubin 0.4 (0.2-1.0) mg/dL AST 13 L (15-37) U/L ALT 15 L (16-63) U/L Alkaline Phosphatase 74 (46-116) U/L Albumin 2.3 L (3.4-5.0) g/dL Progress Note: A&P Assessment and Plan (1) Atypical pneumonia: (2) Generalized weakness: (3) New onset of congestive heart failure: (4) Smoker: (5) Hypertension: Qualifiers: Hypertension type: secondary to endocrine disorders Qualified Code(s): I15.2 - Hypertension secondary to endocrine disorders (6) Non-insulin dependent type 2 diabetes mellitus: (7) Hyperlipidemia associated with type 2 diabetes mellitus: (8) Peripheral neuropathy: Qualifiers: Peripheral neuropathy type: polyneuropathy, unspecified Qualified Code(s): G62.9 - Polyneuropathy, unspecified
[2024-03-12 09:46] LABS: Bilirubin Urine NEGATIVE (NEGATIVE); Blood Urine NEGATIVE (NEGATIVE); Clarity Urine CLEAR (CLEAR); Color Urine YELLOW (YELLOW); Glucose Urine UA >=1000 mg/dL (NEGATIVE); Ketones Urine TRACE mg/dL (NEGATIVE); Leukocyte Esterase Urine NEGATIVE (NEGATIVE); Nitrite Urine NEGATIVE (NEGATIVE); Protein Urine NEGATIVE (NEG/TRACE); Urobilinogen Urine 0.2 EU/dL (0.2-1.0)
[2024-03-12 09:47] LABS: Urine Microscopic Indicated NO
[2024-03-12 11:06] LABS: Glucometer 137 mg/dL (74-106)
[2024-03-12] MEDS: BUDESONIDE 0.5 MG/2 ML AMPULE NEB IH (11:27)
--- NOTE | 2024-03-12 11:32 | CM.NOTE ---
Rounds made with Dr. Khan, pt will have cardiac echo and then possible discharge to home this afternoon.
--- NOTE | 2024-03-12 12:09 | CM.NOTE ---
Important Message From Medicare discussed with pt, pt verbalizes understanding and signs paper. Original given to pt and copy placed on pt's chart.
--- NOTE | 2024-03-12 13:24 | PM.DS1 ---
DS: Providers Provider Date of admission: 03/11/24 02:16 Primary care physician: Tonya Dye NP Admitting clinician: Phylicia Khan Discharging clinician: Phylicia Khan DS: Diagnosis Discharge Diagnosis (1) Atypical pneumonia: (2) Generalized weakness: (3) New onset of congestive heart failure: (4) Smoker: (5) Hypertension: Qualifiers: Hypertension type: secondary to endocrine disorders Qualified Code(s): I15.2 - Hypertension secondary to endocrine disorders (6) Non-insulin dependent type 2 diabetes mellitus: (7) Hyperlipidemia associated with type 2 diabetes mellitus: (8) Peripheral neuropathy: Qualifiers: Peripheral neuropathy type: polyneuropathy, unspecified Qualified Code(s): G62.9 - Polyneuropathy, unspecified DS: Summary Hospital Course Hospital Course: Patient is a 73 y.o male with past medical history of 1 PPD smoker, HLD, PVD, non-insulin dependent type 2 diabetes, HTN, BPH, with Diabetic neuropathy who presented to the ER yesterday evening with complaints of weakness and new onset fever. 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 He was wearing a mask when he mowed. He checked his temp which was 102. He took some tylenol and went to bed. He said he laid there for about 8 hours and called EMS when he did not have the strength to move. In the ER, patient's temp was 99 and tachycardic so sepsis protocol initiated but was ruled out when lactate came back normal. He smokes 1ppd, he denies any diagnosis of COPD or emphysema. He denies any history of CHF, althought he reports some cardiac work up ordered by his pcp about 1 year ago. Findings: CXR showed bilateral opacities vs infiltrates, WBC's elevated 15.8 and at the time of discharge was 11.3, ProBNP 954 up to 1107 but patient denies any further SOB, no pulm edema on x-ray and has had no oxygen requirements. No swelling BLE. I Have ordered an echocardiogram today that can be reviewed by his PCP the results if not back by disharge. Patient has been doing well on IV rocephin, and Azithromyin with pulmicort and duonebs scheduled. Patient has recovered faster than anticipated and would like to go home today. He will have close follow up with his pcp to also review ECHO and make sure he has recovered from pneumonia. He will be prescribed azithromycin 250mg daily for 4 more days, Prednisone 20mg BID x 5 days and albuterol inhaler to use as needed. He will need to monitor his sugars closely while on the predisone. Viral testing negative. Vitals stable. He may return to the ER with any worsening signs or symptoms. PCP follow up has been made. Status at Discharge Functional status at discharge: independent ambulation Overall status at discharge: patient is progressing back to baseline Time Spent with Patient Time attestation: Total time spent providing and/or coordinating discharge services: Time spent: greater than 30 minutes Exam Narrative Exam Narrative: General: Patient is alert, and oriented to person, place and time with normal affect, proper hygiene Skin: no visible rashes, or ulcers Head: atraumatic, acephalic Eyes: PERRLA, no nystagmus present, conjunctiva clear, no scleral icterus Nose: symmetric, no discharge, no maxillary or frontal sinus tenderness Mouth/Throat: poor dentition Heart: Normal rate and rhythm, no murmurs/rubs/gallops Lungs: slight audible wheeze on the RLL Abdomen: Normal audible bowel sounds, no distension, No palpable masses, no organomegaly, no rebound/guarding/ or rigidity Musculoskeletal: no swelling bilateral lower extremities Neuro: CN II-X grossly intact Constitutional Vital Signs, click to edit/add: Last Vital Signs Temp 98.3 F 03/12/24 08:11 Pulse 97 H 03/12/24 12:00 Resp 18 03/12/24 08:11 BP 131/70 03/12/24 08:11 Pulse Ox 93 L 03/12/24 11:28 O2 Del Method Room Air 03/12/24 11:28 O2 Flow Rate 2 03/11/24 17:01 DS: Data Data Completed and Pending Labs on day of discharge: Labs from last 24 hours 03/12/24 03/12/24 03/12/24 11:06 08:15 04:31 WBC 11.3 H RBC 4.20 L Hgb 13.4 L Hct 39.8 L MCV 94.8 H MCH 31.9 MCHC 33.7 RDW 14.6 Plt Count 176 MPV 10.4 Neut % (Auto) 73.7 Lymph % (Auto) 15.8 L [place] % (Auto) 9.2 Eos % (Auto) 0.5 L Baso % (Auto) 0.4 Neut # (Auto) 8.3 H Lymph # (Auto) 1.8 [place] # (Auto) 1.0 H Eos # (Auto) 0.1 Baso # (Auto) 0.0 Abs Immat Gran (auto) 0.05 H Imm/Tot Granulo (auto) 0.4 Sodium 135 L Potassium 3.7 Chloride 103 Carbon Dioxide 24.6 Anion Gap 11.1 BUN 22.0 H Creatinine 0.68 L Est GFR ( Amer) >60 Est GFR (Non-Af Amer) >60 BUN/Creatinine Ratio 32.4 Glucose 92 Calcium 8.4 L Total Bilirubin 0.4 AST 13 L ALT 15 L Alkaline Phosphatase 74 Total Protein 6.2 L Albumin 2.3 L Globulin 3.9 Albumin/Globulin Ratio 0.6 Urine Color Yellow Urine Clarity Clear Urine pH 6.0 Ur Specific [place] 1.020 Urine Protein Negative Urine Glucose (UA) >=1000 A Urine Ketones Trace A Urine Occult Blood Negative Urine Nitrite Negative Urine Bilirubin Negative Urine Urobilinogen 0.2 Ur Leukocyte Esterase Negative POC Glucose 137 H 03/11/24 03/11/24 20:01 14:58 WBC RBC Hgb Hct MCV MCH MCHC RDW Plt Count MPV Neut % (Auto) Lymph % (Auto) [place] % (Auto) Eos % (Auto) Baso % (Auto) Neut # (Auto) Lymph # (Auto) [place] # (Auto) Eos # (Auto) Baso # (Auto) Abs Immat Gran (auto) Imm/Tot Granulo (auto) Sodium Potassium Chloride Carbon Dioxide Anion Gap BUN Creatinine Est GFR ( Amer) Est GFR (Non-Af Amer) BUN/Creatinine Ratio Glucose Calcium Total Bilirubin AST ALT Alkaline Phosphatase Total Protein Albumin Globulin Albumin/Globulin Ratio Urine Color Urine Clarity Urine pH Ur Specific [place] Urine Protein Urine Glucose (UA) Urine Ketones Urine Occult Blood Urine Nitrite Urine Bilirubin Urine Urobilinogen Ur Leukocyte Esterase POC Glucose 156 H 269 H Discharge Plan Discharge Disposition: Home, Self-Care Condition: Good Discharge Medications: New azithromycin 250 mg tablet 250 mg PO DAILY 4 Days Qty: 4 0RF prednisone 20 mg tablet 20 mg PO BID 5 Days Qty: 10 0RF albuterol sulfate 90 mcg/actuation HFA aerosol inhaler 2 inh inhalation Q4H PRN (Reason: shortness of breath or wheezing) Qty: 8.5 0RF Continued clopidogrel 75 mg tablet 75 mg PO DAILY dapagliflozin propanediol [Farxiga] 10 mg tablet 10 mg PO DAILY metformin 1,000 mg tablet 1,000 mg PO BID metoprolol tartrate 50 mg tablet 50 mg PO BID simvastatin 20 mg tablet 20 mg PO DAILY tamsulosin 0.4 mg capsule 0.4 mg PO DAILY pioglitazone 45 mg tablet 45 mg PO DAILY glipizide 10 mg tablet 10 mg PO BID gabapentin 400 mg capsule 600 mg PO QID Activity: increase activity as tolerated Diet: advance to your usual diet Print Language: [place] Islander Forms: Portal Instructions Follow Up Appointments: March 14 @ 11am with Tonya Dye NP [phone] Please make sure PCP gets copy/results of ECHOCARDIOGRAM to review with patient. Discharge location: Home
--- NOTE | 2024-03-13 14:59 | CM.DCFOLLOWU ---
Person spoke with: Pato How are you feeling? Much better How is your pain? No pain Did you understand your discharge instructions? Yes Do you have any questions about your discharge instructions? No Were you given any prescriptions at discharge? Yes Were you able to get your prescriptions filled? Yes Do you understand how to take your medications as ordered? Yes Do you have any questions about your follow up appointment and do you plan to keep your follow up appointment? Appointment scheduled and I will go to f/u Is there anything else that you would like to discuss? No Questions/Comments/Concerns/Other:
== END 2024-03-12 14:14 | disposition home or self-care (01) | DRG 194 ==
LOC: ER 03-11 01:40 → MS 03-11 02:17
PROVIDERS: Registered Nurse; Admitting Provider Family Medicine; Emergency Provider Emergency Medicine; PCP Nurse Practitioner; Visit Provider Family Medicine
DX: J18.9 Pneumonia, unspecified organism (principal); I50.32 Chronic diastolic (congestive) heart failure; I35.0 Nonrheumatic aortic (valve) stenosis; I15.2 Hypertension secondary to endocrine disorders; E11.42 Type 2 diabetes mellitus with diabetic polyneuropathy; E11.51 Type 2 diabetes mellitus with diabetic peripheral angiopathy without gangrene; N40.0 Benign prostatic hyperplasia without lower urinary tract symptoms; E78.5 Hyperlipidemia, unspecified; R53.1 Weakness; F17.210 Nicotine dependence, cigarettes, uncomplicated; Z79.899 Other long term (current) drug therapy; Z79.84 Long term (current) use of oral hypoglycemic drugs; Z79.02 Long term (current) use of 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latelets; Z88.1 Allergy status to other antibiotic agents; Z88.8 Allergy status to other drugs, medicaments and biological substances; Z88.0 Allergy status to penicillin; R42 Dizziness and giddiness
CPT/HCPCS: 0202U; 36415; 70450; 71045; 71046; 80048; 80053; 81003; 82948; 83605; 83735; 83880; 84145; 84484; 85007; 85025; 85027; 85610; 85730; 87040; 93005; 93306; 94640; 94667; 94668; 94761; 96365; 96366; 96368; 96372; 99285; J0456; J0696; J1650; J7620; J7626

== ENCOUNTER 2024-06-24 12:24 | Outpatient (OUT) | payer MEDICARE, OTHER, SELFPAY ==
--- OUTSIDE RECORDS SUMMARY | 2024-06-24 12:33 | XMS_ITS | CCD ---
Author Organization [facility] Care Team Providers Care Cnc Applications Engineer Name Role Phone Shen Luis Unavailable Krishna Ocasio Unavailable [phone] TONYA DYE Primary Care Physician Bernadine PLATT Attending Unavailable TONYA DYE Referring Unavailabl Bernadine Mehta Attending Unavailable TONYA DYE Referring Unavailabl e Bernadine PLATT Attending Unavailable Bernadine PLATT Attending Unavailable AICHHOLZ, CAKE WINDER TONYA Consulting Unavailable AICHHOLZ, CAKE WINDER TONYA Primary Care Unavailable AICHHOLZ, CAKE WINDER TONYA Attending Unavailable AICHHOLZ, CAKE WINDER TONYA Admitting Unavailable AICHHOLZ, CAKE WINDER TONYA Consulting Unavailable AICHHOLZ, CAKE WINDER TONYA Primary Care Unavailable AICHHOLZ, CAKE WINDER TONYA Attending Unavailable AICHHOLZ, CAKE WINDER TONYA Admitting Unavailable PRIETO, DR BHAVANA Pinzon Consulting Unavailable ABBAS, DR ANNE Consulting Unavailable AICHHOLZ, CAKE WINDER TONYA Primary Care Unavailable ABBAS, DR ANNE Attending Unavailable MILLICENT, DR ANNE Admitting Unavailable PRIETO, DR BHAVANA [place] Consulting Unavailable VALDES ., MR KRISHNA Consulting Unavailable AICHHOLZ, CAKE WINDER TONYA Primary Care Unavailable VALDES ., MR KRISHNA Attending Unavailable VALDES ., MR KRISHNA Admitting Unavailable AICHHOLZ, CAKE WINDER TONYA Consulting Unavailable AICHHOLZ, CAKE WINDER TONYA Primary Care Unavailable AICHHOLZ, CAKE WINDER TONYA Attending Unavailable AICHHOLZ, CAKE WINDER TONYA Admitting Unavailable ZIMARGARITO, DR BHAVANA [place] Consulting Unavailable DR IRENE GONZALEZ Procedure Practitioner Unavaila DR IRENE Yang Consulting Unavailable SHAIKH Tucker PUENTES Attending Unavailable SHAIKH Tucker PUENTES Admitting Unavailable AICHHOLZ, CAKE WINDER TONYA Primary Care Unavailable NISHANTILLIS ., DR BERNADINE Pink Consulting Unavaila ble GRILLIS ., DR BERNADINE Pink Procedure Practitioner U IAN Caputo Consulting Unavailable SHAIKH Tucker PUENTES Consulting Unavailable SID KWONG Consulting Unavailable BHAVANA MCCANN Consulting Unavailable NILL ., DR COLINDRES Consulting Unavailable AICHHOLZ, CAKE WINDER TONYA Primary Care Unavailable NILL ., DR COLINDRES Attending Unavailable NILL ., DR COLINDRES Admitting Unavailable MEJIA JOINER Consulting Unavailable AICHHOLZ, CAKE WINDER TONYA Primary Care Unavailable NILL ., DR COLINDRES Attending Unavailable NILL ., DR COLINDRES Admitting Unavailable CARLOS, DR IRENE [place] Consulting Unavailable GONZALEZ, DR IRENE [place] Attending Unavailable GONZALEZ, DR IRENE [place] Admitting Unavailable AICHHOLZ, CAKE WINDER TONYA Primary Care Unavailable ROSARIO BLANCO Consulting Unavailable AICHHOLZ, CAKE WINDER TONYA Consulting Unavailable AICHHOLZ, CAKE WINDER TONYA Primary Care Unavailable AICHHOLZ, CAKE WINDER TONYA Attending Unavailable AICHHOLZ, CAKE WINDER TONYA Admitting Unavailable AICHHOLZ, CAKE WINDER TONYA Consulting Unavailable AICHHOLZ, CAKE WINDER TONYA Primary Care Unavailable AICHHOLZ, CAKE WINDER TONYA Attending Unavailable AICHHOLZ, CAKE WINDER TONYA Admitting Unavailable AICHHOLZ, CAKE WINDER TONYA Consulting Unavailable AICHHOLZ, CAKE WINDER TONYA Primary Care Unavailable AICHHOLZ, CAKE WINDER TONYA Attending Unavailable AICHHOLZ, CAKE WINDER TONYA Admitting Unavailable ABBAS, DR ANNE Consulting Unavailable AICHHOLZ, CAKE WINDER TONYA Primary Care Unavailable ABBAS, DR ANNE Attending Unavailable MILLICENT, DR ANNE Admitting Unavailable ROSALINE, DR BINDU Brown Consulting Unavailable AICHHOLZ, CAKE WINDER TONYA Primary Care Unavailable AICHHOLZ, CAKE WINDER TONYA Attending Unavailable AICHHOLZ, CAKE WINDER TONYA Admitting Unavailable AICHHOLZ, CAKE WINDER TONYA Consulting Unavailable Aichholz, Tonya J Primary Care Provider MD Shen Luis Attending Provider Aichholz DIRECTOR OF SURGERY, Tonya Unavailable Mumtaz Jensen MD Primary Care Provider Ranulfo Bagley Attending Unavailable Aichholz, Tonya J Primary Care Unavailable Ranulfo Bagley Admitting Unavailable OleShen rivas Admitting Unavailable Shen Luis Attending Unavailable Aichholz, Tonya J Primary Care Unavailable Ranulfo Bagley Admitting Unavailable Ranulfo Bagley Attending Unavailable Aichholz, Tonya Reynolds Primary Care Unavailable MALIKA CHAND Attending Unavailable AICHHOLZ, TONYA J Referring Unavailable AICHHOLZ, TONYA J Primary Care Unavailable LEAH SALGADO Attending Unavailable AICHHOLZ, TONYA J Referring Unavailable AICHHOLZ, TONYA J Primary Care Unavailable DAMIANLEAH Pink Attending Unavailable DAMIANLEAH Pink Referring Unavailable AICHHOLZ, TONYA J Primary Care Unavailable RANULFO BAGLEY Attending Unavailable NADMUMTAZ GARCIA Referring Unavailable AICHHOLZ, TONYA Attending Unavailable TIMMIS, LYNN H Attending Unavailable AICHHOLZ, TONYA Referring Unavailable RANULFO BAGLEY Attending Unavailable RANULFO BAGLEY Attending Unavailable NADEREMUMTAZ [place] Referring Unavailable TIMMIS, LYNN H Attending Unavailable AICHHOLZ, TONYA Attending Unavailable TIMMIS, LYNN H Attending Unavailable AICHHOLZ, TONYA Attending Unavailable AICHHOLZ, TONYA Attending Unavailable KRISHNA VALDES Attending Unavailable KRISHNA VALDES Referring Unavailable AICHHOLZ, TONYA Attending Unavailable AICHHOLZ, TONYA Attending Unavailable Allergies Allergy Classification Reported Allergen(s) Allergy Type Date of Onset Reaction(s) Facility dulaglutide (1 source) dulaglutide; Translations: [DULAGLUTIDE] Drug Allergy 11-05-19 [facility] liraglutide (1 source) liraglutide; Translations: [LIRAGLUTIDE] Drug Allergy 11-07-19 [facility] Penicillins (antibiotic) (1 source) Penicillins; Translations: [PENICILLINS] Drug Allergy 11-07-19 [facility] Quinolones (antibiotic) (1 source) Ciprofloxacin; Translations: [CIPROFLOXACIN] Drug Allergy 09-07-20 [facility] (15 sources) Ciprofloxacin; Translations: [ciprofloxacin] Drug Allergy 03-14-20 Itching (finding), Unknown [facility] (12 sources) liraglutide; Translations: [liraglutide] Drug Allergy 11-07-19 Itching (finding) General Surgery [facility] (4 sources) liraglutide; Translations: [Victoza] Drug Allergy 03-26-20 [facility] Repository (7 sources) Penicillin; Translations: [penicillin] Drug Allergy Itching (finding) General [facility] [place] (5 sources) Penicillin V Drug Allergy Unknown [facility] Other (8 sources) Pollen Propensity to adverse reactions Unknown [facility] Other (7 sources) Cefaclor; Translations: [cefaclor] Drug Allergy 09-19-20 Itching (finding) General Surgery [place] (2 sources) Ciprofloxacin; Translations: [Cipro] Drug Allergy 04-30-20 [facility] Repository (1 source) Cefaclor Drug Allergy [facility] Repository (1 source) dulaglutide Drug Allergy 03-26-20 [facility] Repository (1 source) insulin aspart, human Drug Allergy 03-27-20 22 [facility] Repository (1 source) Penicillin Drug Allergy 03-26-20 [facility] (4 sources) Penicillins; Translations: [Penicillins] Allergy to substance 11-07-19 18 Itching [facility] (5 sources) dulaglutide; Translations: [DULAGLUTIDE] Drug Allergy 11-05-19 22 Unknown [facility] (3 sources) liraglutide Drug Allergy 03-09-20 23 Unknown [facility] (3 sources) Penicillin G Drug Allergy 03-09-20 Unknown [facility] (1 source) Cefaclor Drug Allergy 12-27-19 [facility] Repository (1 source) Ciprofloxacin Drug Allergy 12-27-19 [facility] (1 source) dulaglutide Drug Allergy 12-27-19 [facility] (1 source) liraglutide Drug Allergy 12-27-19 [facility] (1 source) Pollen Drug allergy (disorder) 12-27-19 [facility] Repository Medications Current Medications Medication Drug Class(es) [...] [facility] Farxiga 10 MG Take 10 mg by mouth in the morning. 0 Active ferrous sulfate 325 mg delayed release oral tablet (12 sources) Start: 08-24-2022 take 1 tablet by mouth twice daily ferrous sulfate 325 mg oral enteric coated tablet 325 mg = 1 tab(s), Oral, BID, Refills(s) 0 Start Date: 08/24/22 Status: Ordered take 1 tablet by mouth at [facility] ferrous sulfate 325 (65 Fe) MG tablet [...] 08, 2021 11:00pm take 1 capsule by [facility] every eight hours Gabapentin 300 MG 1 capsule Orally three times a day for 90 days Active glipiZIDE 10 mg oral tablet (10 sources) Sulfonylurea Start: 03-09-2021 take 10 mg by mouth once daily Glipizide Active 10 MG PO Daily March 08, 2021 11:00pm take 1 tablet by [facility] twice daily 30 minutes before lunch [...] Active Start: 03-09-2021 take 1 capsule by [facility] once daily Flomax 0.4 mg Cap 0.4 [...] ill-defined heart diseases] Onset: 4 08-24-2022 Chronic Coronary atherosclerosis and other heart disease (1 source) Atherosclerotic heart disease of [place] coronary artery without angina pectoris; Translations: [Atherosclerotic heart disease of [place] coronary artery without angina pectoris] Onset: 4 Chronic Deficiency and other anemia (6 sources) [...] PERF/ABSC W/BL] Onset: 2 Chronic Essential hypertension (17 sources) Essential hypertension; Translations: [Essential (primary) hypertension] Onset: 3 08-24-2022 Chronic Heart valve disorders (6 sources) Nonrheumatic aortic (valve) stenosis; Translations: [Aortic [...] Peripheral vascular disease, unspecified; Translations: [Atherosclerosis of [place] arteries of extremities with rest pain, bilateral [...] Onset: 4 Unclassified (1 source) PAD Onset: Past or Other Problems Problem Classification Problem [...] Onset: 04-04-2022 Episodic Other aftercare (1 source) senior care (current) use of aspirin; Translations: [LONGTERM CURRENT USE OF ASPIRIN] Onset: 10-20-2022 Episodic Other aftercare (1 source) Other long term care phlebotomist (current) drug therapy; Translations: [OTH DELIVERY ASSOCIATE CURRENT DRUG THERAPY] Onset: 10-20-2022 Episodic Other aftercare (1 source) intermediate frame tender (current) use of 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 latelets; Translations: [DELIVERY ASSOCIATE ANTITHROMBOT/ANTIPLAT LETS] Onset: 10-20-2022 Episodic Other aftercare (1 source) senior care (current) use of oral hypoglycemic drugs; Translations: [LONGTERM USE ORAL HYPOGLYCEMIC DX] Onset: 10-20-2022 Episodic [...] 0 12-27-2023 Glucose [Mass/Vol] 139 mg/dL Normal [facility] Comment on above: Result Comment: [facility] Glucose Reference Range is dependent on time and content of last meal. Glucose of more than 200 mg/dL in a nonstressed, ambulatory subject supports the diagnosis of Diabetes Mellitus. PERFORMED BY: [facility] [place] [address] PATHOLOGIST ORDERING MACHINE OPERATOR ANGELES PAUL M.D. Performed By: #### G LULS #### Point of Care testing , Commemt1 Glu2: Cleaned Meter Normal [facility] Comment on above: Result Comment: PERF ORMED BY: [facility] [address] [place] [address] PATHOLOGIST ORDERING MACHINE OPERATOR ANGELES PAUL M.D. Performed By: #### G LULS #### Point of Care testing , Glucose [Mass/Vol] 166 mg/dL Normal [facility] Comment on above: Result Comment: [place] Glucose Reference Range is dependent on time and content of last meal. Glucose of more than 200 mg/dL in a nonstressed, ambulatory subject supports the diagnosis of Diabetes Mellitus. Performed By: #### G LULS #### Point of Care testing , Magdiel 12-27-2023 L Specimen: [id number] Received: 12/28/23 Status: JERMAINE Pablo Num: [id number] Spec Type: Surgical Subm Dr: Ranulfo Bagley DO Tissues: A Skin Cyst (SEBACEOUS CYST RT SHOULDER) Procedures: HE, Gross/Micro L3 Age/ Patient Sex Location Account Attending Physician Darin Thacker 73/M [place] [id number] Ranulfo Bagley DO SPEC NUM: [id number] RECD: 12/28/23 STATUS: JERMAINE PABLO NUM: [id number] ZORA: 12/27/[address]: Ranulfo Bagley DO ENTERED: 12/28/[address] [facility] DR: SPEC TYPE: Surgical DEPT: [...] material. The surrounding tissue is firm, yellow-shaw.. Education Program Coordinator sections are submitted in one cassette labeled A1. Microscopic Description Microscopic evaluation supports the above rendered diagnosis. CPT Codes 70548 Specimen: [id number] Received: 12/28/23 Status: JERMAINE Pablo Num: [id number] Spec Type: Surgical Subm Dr: Ranulfo Bagley DO Tissues: A Skin Cyst (SEBACEOUS CYST RT SHOULDER) Procedures: Torie RODRIGUEZ/Solomon L3 Patient: Darin Thacker [id number] (Continued) Signed (signature on file) Hillary Rosenbaum MD 12/29/23 1304 Normal [facility] Basic Metabolic Panelon Anion gap [Moles/Vol] 10.4 mmol/L Normal 6.0-15.0 [facility] Comment on above: Performed By: #### B MP, SCAN CBC #### [facility] [address] [place] [address] [place] Calcium [Mass/Vol] 9.5 mg/dL Normal 8.6-10.3 [facility] Comment on above: Result Comment: PERF ORMED BY: [place] [address] PATHOLOGIST ORDERING MACHINE OPERATOR ANGELES PAUL M.D. Performed By: #### B MP, SCAN CBC #### [facility] [address] [place] [address] [place] Chloride [Moles/Vol] 105 mmol/L Normal 98-107 [facility] Comment on above: Performed By: #### B MP, SCAN CBC #### [facility] [address] [place] [address] [place] CO2 [Moles/Vol] 24.3 mmol/L Normal 21.0-31.0 [facility] Comment on above: Performed By: #### B MP, SCAN CBC #### [facility] [address] [place] [address] [place] Creatinine [Mass/Vol] 0.66 mg/dL Low 0.70-1.30 [facility] Comment on above: Performed By: #### B MP, SCAN CBC #### [facility] [address] [place] [address] [place] GFR/1.73 sq M.predicted MDRD (S/P/Bld) [Vol rate/Area] mL/min/{1.73_m2} [facility] Comment on above: Performed By: #### B MP, SCAN CBC #### [facility] [address] [place] [address] [place] Glucose [Mass/Vol] 129 mg/dL High 70-100 [facility] Comment on above: Result Comment: [place] [facility] Glucose Reference Range is dependent on time and content of last meal. Glucose of more than 200 mg/dL in a nonstressed, ambulatory subject supports the diagnosis of Diabetes Mellitus. ADA recommended reference range Performed By: #### B MP, SCAN CBC #### [facility] [address] Potassium [Moles/Vol] 4.7 mmol/L Normal 3.5-5.1 [facility] Comment on above: Performed By: #### B MP, SCAN CBC #### [facility] [address] Sodium [Moles/Vol] 135 mmol/L Low 136-145 [facility] Comment on above: Performed By: #### B MP, SCAN CBC #### [facility] [address] Urea nitrogen [Mass/Vol] 18 mg/dL Normal 7-25 [facility] Comment on above: Performed By: #### B MP, SCAN CBC #### [facility] [address] ECG 12 lead ECGon 12-20-2023 ECG 12 lead ECG [facility] Main [place] [address] [place] [address] Electrocardiograph Report Signed Patient: Darin Thacker MR#: [id number] 96 : 1950 Acct:[id number] Age/Sex: 73 / M ADM Date: 12/20/23 Loc: Room: Type: [facility] Attending Dr: Ranulfo Bagley DO Ordering [...] When compared with ECG of 14-MAR-2021 10:14, MI interval has increased Vent. rate has decreased BY 43 BPM Nonspecific T wave abnormality now evident in Lateral leads Confirmed by Laurent Livingston ([id number]) on 12/20/2023 7:43:38 PM Referred By: YUDI Electronically Signed By:Laurent Livingston Transcribed By: BRENNAN Signed By Laurent Livingston MD 12/20/23 194 Normal [facility] Scan and CBCon 12-20-2023 Basophils (Bld) [#/Vol] 0.0 10*3/uL Normal 0.0-0.2 [facility] Comment on above: Result Comment: PERF ORMED BY: [place] [address] PATHOLOGIST ORDERING MACHINE OPERATOR ANGELES PAUL M.D. Performed By: #### B MP, SCAN CBC #### [address] Basophils/100 WBC (Bld) 0.6 % Normal . [facility] Comment on above: Performed By: #### B MP, SCAN CBC #### [facility] [address] [place] [address] Eosinophils (Bld) [#/Vol] 0.1 10*3/uL Normal 0.0-0.45 [facility] Comment on above: Performed By: #### B MP, SCAN CBC #### [facility] [address] [place] [address] Eosinophils/100 WBC (Bld) 1.4 % Normal . [facility] Comment on above: Performed By: #### B MP, SCAN CBC #### [facility] [address] [place] [address] Erythrocyte distribution width (RBC) [Ratio] 14.5 % Normal 12.0-14.8 [facility] Comment on above: Performed By: #### B MP, SCAN CBC #### [facility] [address] [place] [address] Hematocrit (Bld) [Volume fraction] 53.7 % High 38.8-50.0 [facility] Comment on above: Performed By: #### B MP, SCAN CBC #### [facility] [address] [place] [address] [place] Hemoglobin (Bld) [Mass/Vol] 18.3 g/dL High 13.0-17.0 [facility] Comment on above: Performed By: #### B MP, SCAN CBC #### [facility] [address] Lymphocytes (Bld) [#/Vol] 1.6 10*3/uL Normal 1.00-4.8 [facility] Comment on above: Performed By: #### B MP, SCAN CBC #### [facility] [address] Lymphocytes/100 WBC (Bld) 22.2 % Normal . [facility] Comment on above: Performed By: #### B MP, SCAN CBC #### [address] MCH (RBC) [Entitic mass] 31.7 pg Normal 27.5-35.2 [facility] Comment on above: Performed By: #### B MP, SCAN CBC #### [address] MCV (RBC) [Entitic vol] 92.8 fL Normal 83.5-101 [facility] Comment on above: Performed By: #### B MP, SCAN CBC #### [address] Mean Corpuscular HGB Conc 34.1 g/dL Normal 32.5-35.6 [facility] Comment on above: Performed By: #### B MP, SCAN CBC #### [facility] [address] [place] [address] [place] Monocytes (Bld) [#/Vol] 0.7 10*3/uL Normal 0.0-0.8 [facility] Comment on above: Performed By: #### B MP, SCAN CBC #### [place] [address] [place] Monocytes/100 WBC (Bld) 9.8 % Normal . [facility] Comment on above: Performed By: #### B MP, SCAN CBC #### [facility] [address] [place] [address] [place] Neutrophils (Bld) [#/Vol] 4.8 10*3/uL Normal 1.8-7.7 [facility] Comment on above: Performed By: #### B MP, SCAN CBC #### [address] Neutrophils/100 WBC (Bld) 66.0 % Normal . [facility] Comment on above: Performed By: #### B MP, SCAN CBC #### [facility] [address] [place] [address] NRBC% 0.4 /100{WBC} Normal 0-0.5 [facility] Comment on above: Performed By: #### B MP, SCAN CBC #### [address] Platelet Estimate Normal Normal Normal [facility] Comment on above: Performed By: #### B MP, SCAN CBC #### [address] Platelet mean volume (Bld) [Entitic vol] 8.1 fL Normal 6.6-10.1 [facility] Comment on above: Performed By: #### B MP, SCAN CBC #### [address] Platelet Morphology Normal Normal Normal [facility] Comment on above: Result Comment: PERF ORMED BY: [place] [address] PATHOLOGIST ORDERING MACHINE OPERATOR ANGELES PAUL M.D. Performed By: #### B MP, SCAN CBC #### [place] [address] [place] Platelets (Bld) [#/Vol] 206 10*3/uL Normal 150-450 [facility] Comment on above: Performed By: #### B MP, SCAN CBC #### [facility] [address] [place] [address] [place] RBC (Bld) [#/Vol] 5.78 10*6/uL High 3.90-5.60 [facility] Comment on above: Performed By: #### B MP, SCAN CBC #### [facility] [address] [place] [address] [place] RBC morphology finding Nom (Bld) Normal Normal Normal [facility] Comment on above: Performed By: #### B MP, SCAN CBC #### [facility] [address] [place] [address] [place] WBC (Bld) [#/Vol] 7.3 10*3/uL Normal 4.1-10.5 [facility] Comment on above: Performed By: #### B MP, SCAN CBC #### [facility] [address] [place] [address] [place] XR elbow BI 2Von 10-24-2023 XR elbow BI 2V [facility] [place] [address] [place] [address] XRay Report Signed Patient: Darin Thacker MR#: [id number] 96 : 1950 Acct:[id number] Age/Sex: 73 / M ADM Date: 10/24/23 [place] [facility]: Type: [facility] Attending Dr: Shen Luis MD Copies to: [...] Gordon Jr., D.O.10/24/2023 2:29 PM Dictation Location: [place] [address] Transcribed By: [facility] 10/24/23 1429 Dictated By: Dustin Gordon Jr, DO 10/24/23 1428 Signed By: 10/24/23 [address] [facility] [address] ABDOMEN WO/W CONon 2022 CT [...] BHAVANA MOREAU Date: 2023-01-31 16:31 Normal [facility] CBC AUTO DIFFon 01-27-2023 BASO # 0.0 103/ul Normal 0.0-0.1 [facility] Comment on above: Performed By: #### B MP #### [facility] [address] [place], [place] [address] Dr. Lucho De León Basophils/100 WBC (Bld) 0.6 % Normal 0.2-2.0 [facility] Comment on above: Performed By: #### B MP #### [facility] [address] [place], [place] [address] Dr. Lucho De León EO # 0.1 103/ul Normal 0.0-0.7 [facility] Comment on above: Performed By: #### B MP #### [facility] [address] [place] [address] Dr. Lucho De León Eosinophils/100 WBC (Bld) 1.4 % Normal 0.9-7.0 [facility] Comment on above: Performed By: #### B MP #### [facility] [address] [place] [address] Dr. Lucho De León Erythrocyte distribution width (RBC) [Ratio] 13.7 % Normal 11.0-15.0 [facility] Comment on above: Performed By: #### B MP #### [facility] [address] [place] [address] Dr. Lucho De León Hematocrit (Bld) [Volume fraction] 51.2 % Normal 42.0-54.0 [facility] Comment on above: Performed By: #### B MP #### [facility] [address] [place] [address] Dr. Lucho De León Hemoglobin (Bld) [Mass/Vol] 17.5 g/dL Normal 14.0-18.0 [facility] Comment on above: Performed By: #### B MP #### [facility] [address] [place] [address] Dr. Lucho De León IG # 0.02 10e3/ul Normal 0.00-0.03 [facility] Comment on above: Performed By: #### B MP #### [facility] [address] [place] [address] Dr. Lucho De León IG % 0.3 % Normal 0.0-0.5 [facility] Comment on above: Performed By: #### B MP #### [facility] [address] [place] [address] Dr. Lucho De León LYMPH # 1.5 103/ul Normal 1.2-3.8 [facility] Comment on above: Performed By: #### B MP #### [facility] [address] [place] [address] Dr. Lucho De León Lymphocytes/100 WBC (Bld) 22.1 % Normal 20.5-60.0 [facility] Comment on above: Performed By: #### B MP #### [facility] [address] [place] [address] Dr. Lucho De León MANUAL DIFF REQ NO Normal [facility] Comment on above: Performed By: #### B MP #### [facility] [address] [place] [address] Dr. Lucho De León MCH (RBC) [Entitic mass] 31.0 pg Normal 25.9-34.0 [facility] Comment on above: Performed By: #### B MP #### [facility] [address] [place] [address] Dr. Lucho De León MCHC (RBC) [Mass/Vol] 34.2 g/dL Normal 29.9-35.2 [facility] Comment on above: Performed By: #### B MP #### [facility] [address] [place] [address] Dr. Lucho De León MCV (RBC) [Entitic vol] 90.6 fL Normal 80.0-94.0 [facility] Comment on above: Performed By: #### B MP #### [facility] [address] [place] [address] Dr. Lucho De León MONO # 0.7 103/ul Normal 0.3-0.8 [facility] Comment on above: Performed By: #### B MP #### [facility] [address] [place] [address] Dr. Lucho De León Monocytes/100 WBC (Bld) 10.7 % Normal 1.7-12.0 [facility] Comment on above: Performed By: #### B MP #### [facility] [address] [place] [address] Dr. Lucho De León NEUT # 4.3 103/ul Normal 1.4-6.5 [facility] Comment on above: Performed By: #### B MP #### [facility] [address] [place] [address] Dr. Lucho De León Neutrophils/100 WBC (Bld) 64.9 % Normal 43.0-75.0 [facility] Comment on above: Performed By: #### B MP #### [facility] [address] [place] [address] Dr. Lucho De León Platelet mean volume (Bld) [Entitic vol] 9.1 fL Critically low 9.5-13.5 [facility] Comment on above: Performed By: #### B MP #### [facility] [address] [place] [address] Dr. Lucho De León PLT 220 103/ul Normal 150-450 [facility] Comment on above: Performed By: #### B MP #### [facility] [address] [place] [address] Dr. Lucho De León RBC 5.65 106/ul Normal 4.70-6.10 [facility] Comment on above: Performed By: #### B MP #### [facility] [address] [place] [address] Dr. Lucho De León WBC 6.6 103/ul Normal 4.0-11.0 [facility] Comment on above: Performed By: #### B MP #### [facility] [address] [place] [address] Dr. Lucho De León GLYCOHEMOGLOBIN A1Con 2022 ADA RECOMMENDATION SEE BELOW Normal [facility] Comment on above: Result Comment: ADA RECOMMENDED LIMIT 4.0 - 6.0 ADA THERAPEUTIC TARGET < 7.0 ACTION SUGGESTED > 7.0 Performed By: #### C VDTBH #### [facility] [address] [place] [address] Dr. Lucho De León Glucose [Mass/Vol] 209 mg/dL Normal [facility] Comment on above: Performed By: #### C VDTBH #### [facility] [address] [place] [address] Dr. Lucho De León HbA1c (Bld) [Mass fraction] 8.9 % Critically high 4.5-6.2 [facility] Comment on above: Performed By: #### C VDTBH #### [facility] [address] [place] [address] Dr. Lucho De León IRONon 01-27-2023 Iron [Mass/Vol] 59.0 ug/dL Critically low 65.0-175.0 [facility] Comment on above: Performed By: #### B MP #### [facility] [address] [address] [address] Lucho De León LIPID PROFILEon 01-27-2023 CHOL-HDL RATIO NORM SEE BELOW Normal [facility] Comment on above: Result Comment: 3.3 - 4.4 LOW RISK 4.4 - 7.1 AVERAGE RISK 7.1 - 11.0 MODERATE RISK >11.0 HIGH RISK Performed By: #### B MP #### [facility] [address] [address] [address] Lucho De León Cholesterol [Mass/Vol] 177 mg/dL Normal <=200 [facility] Comment on above: Performed By: #### B MP #### [facility] [address] [address] [address] Lucho De León Cholesterol in HDL [Mass/Vol] 50 mg/dL Normal 40-60 [facility] Comment on above: Performed By: #### B MP #### [facility] [address] [address] [address] Lucho De León Cholesterol in LDL [Mass/Vol] 89.2 mg/dL Normal [facility] Comment on above: Performed By: #### B MP #### [facility] [address] [address] [address] Lucho De León Cholesterol.total/Cho lesterol in HDL [Mass ratio] 3.5 {ratio} Normal [facility] Comment on above: Performed By: #### B MP #### [facility] [address] [address] [address] Lucho De León HDL NORMAL > or = 60 mg/dl - LOW CARDIOVASCULAR RISK <40 mg/dl - HIGH CARDIOVASCULAR RISK Normal [facility] Comment on above: Performed By: #### B MP #### [facility] [address] [address] [address] Lucho De León LDL CALC NORMAL SEE BELOW Normal [facility] Comment on above: Result Comment: <100 mg/dl OPTIMAL 100 - 129 mg/dl NEAR OR ABOVE OPTIMAL 130 - 159 mg/dl BORDERLINE HIGH 160 - 189 mg/dl HIGH >190 mg/dl VERY HIGH Performed By: #### B MP #### [facility] [address] [place] [address] Dr. Lucho De León Triglyceride [Mass/Vol] 189 mg/dL Critically high <=150 [facility] Comment on above: Performed By: #### B MP #### [facility] [address] [place] [address] Dr. Lucho De León VLDL CALC 37.8 mg/dL Normal [facility] Comment on above: Performed By: #### B MP #### [facility] [address] [place], [place] [id number] Dr. Lucho De León MICROALBUMIN, RAND URon - mALB 7.6 mg/L Normal <=30.0 [facility] Comment on above: Performed By: #### M ALBR #### [facility] [address] [place] [address] Dr. Lucho De León PROF 14(COMP METB)on 023 Albumin [Mass/Vol] 3.6 g/dL Normal 3.4-5.0 [facility] Comment on above: Performed By: #### B MP #### [facility] [address] [place] [address] Dr. Lucho De León Albumin/Globulin [Mass ratio] 0.9 {ratio} Normal [facility] Comment on above: Performed By: #### B MP #### [facility] [address] [place] [address] Dr. Lucho De León ALP [Catalytic activity/Vol] 95 U/L Normal 46-116 [facility] Comment on above: Performed By: #### B MP #### [facility] [address] [place] [address] Dr. Lucho De León ALT [Catalytic activity/Vol] 26 U/L Normal 16-63 [facility] Comment on above: Performed By: #### B MP #### [facility] [address] [place] [address] Dr. Lucho De León Anion gap [Moles/Vol] 16.7 mmol/L Normal [facility] Comment on above: Performed By: #### B MP #### [facility] [address] [place] [address] Dr. Lucho De León AST [Catalytic activity/Vol] 13 U/L Critically low 15-37 [facility] Comment on above: Performed By: #### B MP #### [facility] [address] [address] [address] Lucho De León Bilirubin [Mass/Vol] 0.3 mg/dL Normal 0.2-1.0 [facility] Comment on above: Performed By: #### B MP #### [facility] [address] [address] [address] Lcuho De León Calcium [Mass/Vol] 9.7 mg/dL Normal 8.5-10.1 [facility] Comment on above: Performed By: #### B MP #### [facility] [address] [address] [address] Lucho De León Chloride [Moles/Vol] 103 mmol/L Normal 98-107 [facility] Comment on above: Performed By: #### B MP #### [facility] [address] [address] [address] Lucho De León CO2 [Moles/Vol] 24.9 mmol/L Normal 21.0-32.0 [facility] Comment on above: Performed By: #### B MP #### [facility] [address] [address] [address] Luhco De León Creatinine [Mass/Vol] 0.81 mg/dL Normal 0.70-1.30 [facility] Comment on above: Performed By: #### B MP #### [facility] [address] [address] [address] Lucho De León EGFR-AF SURINAMESE >60 Normal >=60 [facility] Comment on above: Performed By: #### B MP #### [facility] [address] [address] [address] Lucho De León EGFR-NON AF SURINAMESE >60 Normal >=60 [facility] Comment on above: Performed By: #### B MP #### [facility] [address] [address] [address] Lucho De León Globulin (S) [Mass/Vol] 4.2 g/dL Normal [facility] Comment on above: Performed By: #### B MP #### [facility] [address] [address] [address] Lucho De León Glucose [Mass/Vol] 156 mg/dL Critically high 74-106 [facility] Comment on above: Performed By: #### B MP #### [facility] [address] [address] [address] Lucho De León Potassium [Moles/Vol] 4.6 mmol/L Normal 3.5-5.1 [facility] Comment on above: Performed By: #### B MP #### [facility] [address] [address] [address] Lucho De León Protein [Mass/Vol] 7.8 g/dL Normal 6.4-8.2 [facility] Comment on above: Performed By: #### B MP #### [facility] [address] [address] [address] Lucho De León Sodium [Moles/Vol] 140 mmol/L Normal 136-145 [facility] Comment on above: Performed By: #### B MP #### [facility] [address] [address] [address] Lucho De León Urea nitrogen [Mass/Vol] 15.0 mg/dL Normal 7.0-18.0 [facility] Comment on above: Performed By: #### B MP #### [facility] [address] [address] [address] Lucho De León Urea nitrogen/Creatinine [Mass ratio] 18.5 mg/mg Normal [facility] Comment on above: Performed By: #### B MP #### [facility] [address] [address] [address] Lucho De León UA RANDOM W/MICROSCOPICon BACTERIA NONE SEEN Normal NONE SEEN [facility] Comment on above: Performed By: #### C BC #### [facility] [address] [address] [address] Lucho De León Bilirubin Ql (U) Negative Normal NEGATIVE [facility] Comment on above: Performed By: #### C BC #### [facility] [address] [place] [address] Dr. Lucho De León CAST NONE SEEN Normal NONE SEEN [facility] Comment on above: Performed By: #### C BC #### [facility] [address] [place] [address] Dr. Lucho De León Clarity (U) CLEAR Normal CLEAR [facility] Comment on above: Performed By: #### C BC #### [facility] [address] [place] [address] Dr. Lucho De León Color (U) LT. YELLOW Normal YELLOW [facility] Comment on above: Performed By: #### C BC #### [facility] [address] [place] [address] Dr. Lucho De León Crystals LM Nom (Urine sed) NONE SEEN Normal NONE SEEN [facility] Comment on above: Performed By: #### C BC #### [facility] [address] [place] [address] Dr. Lucho De León Epithelial cells LM Ql (Urine sed) NONE SEEN Normal NONE SEEN /RARE [facility] Comment on above: Performed By: #### C BC #### [facility] [address] [place] [address] Dr. Lucho De León Glucose Ql (U) 1000 mg/dl Abnormal NEGATIVE [facility] Comment on above: Performed By: #### C BC #### [facility] [address] [place] [address] Dr. Lucho De León Hemoglobin Ql (U) Negative Normal NEGATIVE [facility] Comment on above: Performed By: #### C BC #### [facility] [address] [place] [address] Dr. Lucho De León Ketones Ql (U) Negative Normal NEGATIVE [facility] Comment on above: Performed By: #### C BC #### [facility] [address] [place] [address] Dr. Lcuho De León LEUKOCYTES Negative Normal NEGATIVE [facility] Comment on above: Performed By: #### C BC #### [facility] [address] [place] [address] Dr. Lcuho De León MUCOUS NONE SEEN Normal NONE SEEN [facility] Comment on above: Performed By: #### C BC #### [facility] [address] [address] [address] Lucho De León Nitrite Ql (U) Negative Normal NEGATIVE [facility] Comment on above: Performed By: #### C BC #### [facility] [address] [place] [address] Dr. Lucho De León pH (U) 5.5 [pH] Normal 5-9 [facility] Comment on above: Performed By: #### C BC #### [facility] [address] [place] [address] Dr. Lucho De León RBC NONE SEEN Abnormal 0-2 [facility] Comment on above: Performed By: #### C BC #### [facility] [address] [place] [address] Dr. Lucho De León SPEC GRAVITY 1.020 Normal 1.005-<=1.025 [facility] Comment on above: Performed By: #### C BC #### [facility] [address] [place] [address] Dr. Lucho De León UA PROTEIN Negative Normal NEGATIVE/ TRACE [facility] Comment on above: Performed By: #### C BC #### [facility] [address] [place] [address] Dr. Lucho De León Urobilinogen Qn (U) 0.2 {Danny'U}/dL Normal 0.2 - 1. 0 [facility] Comment on above: Performed By: #### C BC #### [facility] [address] [place] [address] Dr. Lucho De León WBC NONE SEEN Normal NONE SEEN [facility] Comment on above: Performed By: #### C BC #### [facility] [address] [place] [address] Dr. Lucho De León US CAROTID ART [...] BHAVANA MOREAU Date: 2022-12-20 16:32 Normal [facility] CBC AUTO DIFFon 11-18-2022 BASO # 0.1 103/ul Normal 0.0-0.1 [facility] Comment on above: Performed By: #### H GBHCT #### [facility] [address] [address] [address] Lucho De León Basophils/100 WBC (Bld) 0.6 % Normal 0.2-2.0 [facility] Comment on above: Performed By: #### H GBHCT #### [facility] [address] [address] [address] Lucho De León EO # 0.1 103/ul Normal 0.0-0.7 [facility] Comment on above: Performed By: #### H GBHCT #### [facility] [address] [address] [address] Lucho De León Eosinophils/100 WBC (Bld) 1.1 % Normal 0.9-7.0 [facility] Comment on above: Performed By: #### H GBHCT #### [facility] [address] [address] [address] Lucho De León Erythrocyte distribution width (RBC) [Ratio] 13.6 % Normal 11.0-15.0 [facility] Comment on above: Performed By: #### H GBHCT #### [facility] [address] [address] [address] Lucho De León Hematocrit (Bld) [Volume fraction] 56.1 % Critically high 42.0-54.0 [facility] Comment on above: Performed By: #### H GBHCT #### [facility] [address] [address] [address] Lucho De León Hemoglobin (Bld) [Mass/Vol] 17.8 g/dL Normal 14.0-18.0 [facility] Comment on above: Performed By: #### H GBHCT #### [facility] [address] [address] [address] Lucho De León IG # 0.02 10e3/ul Normal 0.00-0.03 [facility] Comment on above: Performed By: #### H GBHCT #### [facility] [address] [place] [address] Dr. Lucho De León IG % 0.2 % Normal 0.0-0.5 [facility] Comment on above: Performed By: #### H GBHCT #### [facility] [address] [address] [address] Lucho De León LYMPH # 1.6 103/ul Normal 1.2-3.8 [facility] Comment on above: Performed By: #### H GBHCT #### [facility] [address] [place] [address] Dr. Lucho De León Lymphocytes/100 WBC (Bld) 19.3 % Critically low 20.5-60.0 [facility] Comment on above: Performed By: #### H GBHCT #### [facility] [address] [place] [address] Dr. Lucho De León MANUAL DIFF REQ NO Normal [facility] Comment on above: Performed By: #### H GBHCT #### [facility] [address] [place] [address] Dr. Lucho De León MCH (RBC) [Entitic mass] 31.0 pg Normal 25.9-34.0 [facility] Comment on above: Performed By: #### H GBHCT #### [facility] [address] [place] [address] Dr. Lucho De León MCHC (RBC) [Mass/Vol] 31.7 g/dL Normal 29.9-35.2 [facility] Comment on above: Performed By: #### H GBHCT #### [facility] [address] [place] [address] Dr. Lucho De León MCV (RBC) [Entitic vol] 97.6 fL Critically high 80.0-94.0 [facility] Comment on above: Performed By: #### H GBHCT #### [facility] [address] [address] [address] Lucho De León MONO # 0.7 103/ul Normal 0.3-0.8 [facility] Comment on above: Performed By: #### H GBHCT #### [facility] [address] [address] [address] Lucho De León Monocytes/100 WBC (Bld) 8.1 % Normal 1.7-12.0 [facility] Comment on above: Performed By: #### H GBHCT #### [facility] [address] [address] [address] Lucho De León NEUT # 5.7 103/ul Normal 1.4-6.5 [facility] Comment on above: Performed By: #### H GBHCT #### [facility] [address] [place] [address] Dr. Lucho De León Neutrophils/100 WBC (Bld) 70.7 % Normal 43.0-75.0 [facility] Comment on above: Performed By: #### H GBHCT #### [facility] [address] [address] [address] Lucho De León Platelet mean volume (Bld) [Entitic vol] 10.6 fL Normal 9.5-13.5 [facility] Comment on above: Performed By: #### H GBHCT #### [facility] [address] [place] [address] Dr. Lucho De León PLT 228 103/ul Normal 150-450 [facility] Comment on above: Performed By: #### H GBHCT #### [facility] [address] [place] [address] Dr. Lucho De León RBC 5.75 106/ul Normal 4.70-6.10 [facility] Comment on above: Performed By: #### H GBHCT #### [facility] [address] [address] [address] Lucho De León WBC 8.1 103/ul Normal 4.0-11.0 [facility] Comment on above: Performed By: #### H GBHCT #### [facility] [address] [address] [address] Lucho De León PROF CHEM 8 (BAS METB)on Anion gap [Moles/Vol] 11.1 mmol/L Normal [facility] Comment on above: Performed By: #### B MP #### [facility] [address] [address] [address] Lucho De León Calcium [Mass/Vol] 9.3 mg/dL Normal 8.5-10.1 [facility] Comment on above: Performed By: #### B MP #### [facility] [address] [address] [address] Lucho De León Chloride [Moles/Vol] 102 mmol/L Normal 98-107 [facility] Comment on above: Performed By: #### B MP #### [facility] [address] [address] [address] Lucho De León CO2 [Moles/Vol] 28.3 mmol/L Normal 21.0-32.0 [facility] Comment on above: Performed By: #### B MP #### [facility] [address] [address] [address] Lucho De León Creatinine [Mass/Vol] 0.59 mg/dL Critically low 0.70-1.30 [facility] Comment on above: Performed By: #### B MP #### [facility] [address] [address] [address] Lucho De León EGFR-AF SURINAMESE >60 Normal >=60 [facility] Comment on above: Performed By: #### B MP #### [facility] [address] [address] [address] Lucho De León EGFR-NON AF SURINAMESE >60 Normal >=60 [facility] Comment on above: Performed By: #### B MP #### [facility] [address] [address] [address] Lucho De León Glucose [Mass/Vol] 171 mg/dL Critically high 74-106 [facility] Comment on above: Performed By: #### B MP #### [facility] [address] [address] [address] Lucho De León Potassium [Moles/Vol] 4.4 mmol/L Normal 3.5-5.1 [facility] Comment on above: Performed By: #### B MP #### [facility] [address] [address] [address] Lucho De León Sodium [Moles/Vol] 137 mmol/L Normal 136-145 [facility] Comment on above: Performed By: #### B MP #### [facility] [address] [address] [address] Lucho De León Urea nitrogen [Mass/Vol] 12.0 mg/dL Normal 7.0-18.0 [facility] Comment on above: Performed By: #### B MP #### [facility] [address] [address] [address] Lucho De León Urea nitrogen/Creatinine [Mass ratio] 20.3 mg/mg Normal [facility] Comment on above: Performed By: #### B MP #### [facility] [address] [address] [address] Lucho De León General Surgery Office/Clini [...] WILKINS, JULIA Mays Only if needed [address] [place] [address]- Additional Instructions: Problem List/Past Medical History Ongoing [...] malignant neoplasm of female breast: Sister. Normal [facility] Comment on above: Result Comment: Elec tronically Signed By: MANJIT WILKINS, Bernadine Calle\Date and Time Signed: 10/25/22 16:08 EST Pathology Noteon 10-19-2022 Pathology Note [id number] #1.00CD:127 Normal [facility] Operative Reporton 2 Operative Report [id number] #1.00CD:127 Normal [facility] GLYCOHEMOGLOBIN A1Con 2021 ADA RECOMMENDATION SEE BELOW Normal [facility] Comment on above: Result Comment: ADA RECOMMENDED LIMIT 4.0 - 6.0 ADA THERAPEUTIC TARGET < 7.0 ACTION SUGGESTED > 7.0 Performed By: #### C [facility] #### [facility] [address] [place] [address] Dr. Lucho De León Glucose [Mass/Vol] 197 mg/dL Normal [facility] Comment on above: Performed By: #### C VDTBH #### [facility] [address] [place] [address] Dr. Lucho De León HbA1c (Bld) [Mass fraction] 8.5 % Critically high 4.5-6.2 [facility] Comment on above: Performed By: #### C VDTBH #### [facility] [address] [place] [address] Dr. Lucho De León PROF CHEM 8 (BAS METB)on Anion gap [Moles/Vol] 12.0 mmol/L Normal [facility] Comment on above: Performed By: #### B MP #### [facility] [address] [place] [address] Dr. Lucho De León Calcium [Mass/Vol] 9.0 mg/dL Normal 8.5-10.1 [facility] Comment on above: Performed By: #### B MP #### [facility] [address] [place] [address] Dr. Lucho De León Chloride [Moles/Vol] 100 mmol/L Normal 98-107 [facility] Comment on above: Performed By: #### B MP #### [facility] [address] [place] [address] Dr. Lucho De León CO2 [Moles/Vol] 24.6 mmol/L Normal 21.0-32.0 [facility] Comment on above: Performed By: #### B MP #### [facility] [address] [place] [address] Dr. Lucho De León Creatinine [Mass/Vol] 0.61 mg/dL Critically low 0.70-1.30 [facility] Comment on above: Performed By: #### B MP #### [facility] [address] [place] [address] Dr. Lucho De León EGFR-AF SURINAMESE >60 Normal >=60 [facility] Comment on above: Performed By: #### B MP #### [facility] [address] [place] [address] Dr. Lucho De León EGFR-NON AF SURINAMESE >60 Normal >=60 [facility] Comment on above: Performed By: #### B MP #### [facility] [address] [address] [address] Lucho De León Glucose [Mass/Vol] 186 mg/dL Critically high 74-106 [facility] Comment on above: Performed By: #### B MP #### [facility] [address] [address] [address] Lucho De León Potassium [Moles/Vol] 4.6 mmol/L Normal 3.5-5.1 [facility] Comment on above: Performed By: #### B MP #### [facility] [address] [place] [address] Dr. Lucho De León Sodium [Moles/Vol] 132 mmol/L Critically low 136-[address] [facility] Comment on above: Performed By: #### B MP #### [facility] [address] [place] [address] Dr. Lucho De León Urea nitrogen [Mass/Vol] 12.0 mg/dL Normal 7.0-18.0 [facility] Comment on above: Performed By: #### B MP #### [facility] [address] [place] [address] Dr. Lucho De León Urea nitrogen/Creatinine [Mass ratio] 19.7 mg/mg Normal [facility] Comment on above: Performed By: #### B MP #### [facility] [address] [place] [address] Dr. Lucho De León XR CSPINE 2_3 [...] by: BHAVANA MOREAU Date: 2022-09-22 12:09 Normal [facility] Consent for Procedure/Surger mary 08-31-2022 Consent for Procedure/Surgery [id number] #1.00CD:127 Normal [facility] Ambulatory Visit Summaryon 1 10-30-2021 Ambulatory Visit Summary DARIN THACKER :1950 Visit Date:08/30/2022 Ambulatory Visit Instructions Your Diagnosis Inflamed sebaceous cyst Your Care Team Attending Physician - MANJIT WILKINS, Bernadine Pinzon Primary Care Physician - TONYA DYE CNP [...] allergies Tobacco user Vitamin B12 deficiency Normal [facility] Physician Referralon 022 Physician Referral [id number] #1.00CD:127 Normal [facility] CBC AUTO DIFFon 06-14-2022 BASO # 0.0 103/ul Normal 0.0-0.1 [facility] Comment on above: Performed By: #### C VDTBH #### [facility] [address] [place] [address] Dr. Lucho De León Basophils/100 WBC (Bld) 0.4 % Normal 0.2-2.0 [facility] Comment on above: Performed By: #### C VDTBH #### [facility] [address] [place] [address] Dr. Lucho De León EO # 0.1 103/ul Normal 0.0-0.7 [facility] Comment on above: Performed By: #### C VDTBH #### [facility] [address] [place] [address] Dr. Lucho De León Eosinophils/100 WBC (Bld) 1.6 % Normal 0.9-7.0 [facility] Comment on above: Performed By: #### C VDTBH #### [facility] [address] [place] [address] Dr. Lucho De León Erythrocyte distribution width (RBC) [Ratio] 16.1 % Critically high 11.0-15.0 [facility] Comment on above: Performed By: #### C VDTBH #### [facility] [address] [place] [address] Dr. Lucho De León Hematocrit (Bld) [Volume fraction] 51.3 % Normal 42.0-54.0 [facility] Comment on above: Performed By: #### C VDTBH #### [facility] [address] [place] [address] Dr. Lucho D eLeón Hemoglobin (Bld) [Mass/Vol] 16.9 g/dL Normal 14.0-18.0 [facility] Comment on above: Performed By: #### C VDTBH #### [facility] [address] [place] [address] Dr. Lucho De León IG # 0.02 10e3/ul Normal 0.00-0.03 [facility] Comment on above: Performed By: #### C VDTBH #### [facility] [address] [place] [address] Dr. Lucho De León IG % 0.3 % Normal 0.0-0.5 [facility] Comment on above: Performed By: #### C VDTBH #### [facility] [address] [place] [address] Dr. Lucho De León LYMPH # 1.6 103/ul Normal 1.2-3.8 [facility] Comment on above: Performed By: #### C VDTBH #### [facility] [address] [place] [address] Dr. Lucho De León Lymphocytes/100 WBC (Bld) 21.6 % Normal 20.5-60.0 [facility] Comment on above: Performed By: #### C VDTBH #### [facility] [address] [place] [address] Dr. Lucho De León MANUAL DIFF REQ NO Normal [facility] Comment on above: Performed By: #### C VDTBH #### [facility] [address] [place] [address] Dr. Lucho De León MCH (RBC) [Entitic mass] 29.3 pg Normal 25.9-34.0 [facility] Comment on above: Performed By: #### C VDTBH #### [facility] [address] [place] [address] Dr. Lucho De León MCHC (RBC) [Mass/Vol] 32.9 g/dL Normal 29.9-35.2 [facility] Comment on above: Performed By: #### C VDTBH #### [facility] [address] [place] [address] Dr. Lucho De León MCV (RBC) [Entitic vol] 89.1 fL Normal 80.0-94.0 [facility] Comment on above: Performed By: #### C VDTBH #### [facility] [address] [place] [address] Dr. Lucho De León MONO # 0.6 103/ul Normal 0.3-0.8 [facility] Comment on above: Performed By: #### C VDTBH #### [facility] [address] [place] [address] Dr. Lucho De León Monocytes/100 WBC (Bld) 8.6 % Normal 1.7-12.0 [facility] Comment on above: Performed By: #### C VDTBH #### [facility] [address] [place] [address] Dr. Lucho De León NEUT # 5.0 103/ul Normal 1.4-6.5 [facility] Comment on above: Performed By: #### C VDTBH #### [facility] [address] [place] [address] Dr. Lucho De León Neutrophils/100 WBC (Bld) 67.5 % Normal 43.0-75.0 [facility] Comment on above: Performed By: #### C VDTBH #### [facility] [address] [place] [address] Dr. Lucho De León Platelet mean volume (Bld) [Entitic vol] 10.3 fL Normal 9.5-13.5 [facility] Comment on above: Performed By: #### C VDTBH #### [facility] [address] [place] [address] Dr. Lucho De León PLT 218 103/ul Normal 150-450 [facility] Comment on above: Performed By: #### C VDTBH #### [facility] [address] [place] [address] Dr. Lucho De León RBC 5.76 106/ul Normal 4.70-6.10 [facility] Comment on above: Performed By: #### C VDTBH #### [facility] [address] [place] [address] Dr. Lucho De León WBC 7.5 103/ul Normal 4.0-11.0 [facility] Comment on above: Performed By: #### C VDTBH #### [facility] [address] [place] [address] Dr. Lucho De León GLYCOHEMOGLOBIN A1Con 2021 ADA RECOMMENDATION SEE BELOW Normal [facility] Comment on above: Result Comment: ADA RECOMMENDED LIMIT 4.0 - 6.0 ADA THERAPEUTIC TARGET < 7.0 ACTION SUGGESTED > 7.0 Performed By: #### A 1C #### [facility] [address] [place] [address] Dr. Lucho De León Glucose [Mass/Vol] 177 mg/dL Normal [facility] Comment on above: Performed By: #### A 1C #### [facility] [address] [place] [address] Dr. Lucho De León HbA1c (Bld) [Mass fraction] 7.8 % Critically high 4.5-6.2 [facility] Comment on above: Performed By: #### A 1C #### [facility] [address] [place] [address] Dr. Lucho De León IRONon 06-14-2022 Iron [Mass/Vol] 50.0 ug/dL Critically low 65.0-175.0 [facility] Comment on above: Performed By: #### C BC #### [facility] [address] [place] [address] Dr. Lucho De León PROF 14(COMP METB)on 022 Albumin [Mass/Vol] 3.8 g/dL Normal 3.4-5.0 [facility] Comment on above: Performed By: #### H GBHCT #### [facility] [address] [place] [address] Dr. Lucho De León Albumin/Globulin [Mass ratio] 0.9 {ratio} Normal [facility] Comment on above: Performed By: #### H GBHCT #### [facility] [address] [place] [address] Dr. Lucho De León ALP [Catalytic activity/Vol] 95 U/L Normal 46-116 [facility] Comment on above: Performed By: #### H GBHCT #### [facility] [address] [place] [address] Dr. Lucho De León ALT [Catalytic activity/Vol] 19 U/L Normal 16-63 [facility] Comment on above: Performed By: #### H GBHCT #### [facility] [address] [place] [address] Dr. Lucho De León Anion gap [Moles/Vol] 12.2 mmol/L Normal [facility] Comment on above: Performed By: #### H GBHCT #### [facility] [address] [address] [address] Lucho De León AST [Catalytic activity/Vol] 11 U/L Critically low 15-37 [facility] Comment on above: Performed By: #### H GBHCT #### [facility] [address] [address] [address] Lucho De León Bilirubin [Mass/Vol] 0.3 mg/dL Normal 0.2-1.0 [facility] Comment on above: Performed By: #### H GBHCT #### [facility] [address] [place] [address] Dr. Lucho De León Calcium [Mass/Vol] 9.6 mg/dL Normal 8.5-10.1 [facility] Comment on above: Performed By: #### H GBHCT #### [facility] [address] [address] [address] Lucho De León Chloride [Moles/Vol] 103 mmol/L Normal 98-107 [facility] Comment on above: Performed By: #### H GBHCT #### [facility] [address] [place] [address] Dr. Lucho De León CO2 [Moles/Vol] 29.4 mmol/L Normal 21.0-32.0 [facility] Comment on above: Performed By: #### H GBHCT #### [facility] [address] [address] [address] Lucho De León Creatinine [Mass/Vol] 0.80 mg/dL Normal 0.70-1.30 [facility] Comment on above: Performed By: #### H GBHCT #### [facility] [address] [place] [address] Dr. Lucho De León EGFR-AF SURINAMESE >60 Normal >=60 [facility] Comment on above: Performed By: #### H GBHCT #### [facility] [address] [place] [address] Dr. Lucho De León EGFR-NON AF SURINAMESE >60 Normal >=60 [facility] Comment on above: Performed By: #### H GBHCT #### [facility] [address] [place] [address] Dr. Lucho De León Globulin (S) [Mass/Vol] 4.0 g/dL Normal [facility] Comment on above: Performed By: #### H GBHCT #### [facility] [address] [address] [address] Lucho De León Glucose [Mass/Vol] 202 mg/dL Critically high 74-106 [facility] Comment on above: Performed By: #### H GBHCT #### [facility] [address] [place] [address] Dr. Lucho De León Potassium [Moles/Vol] 4.6 mmol/L Normal 3.5-5.1 [facility] Comment on above: Performed By: #### H GBHCT #### [facility] [address] [place] [address] Dr. Lucho De León Protein [Mass/Vol] 7.8 g/dL Normal 6.4-8.2 [facility] Comment on above: Performed By: #### H GBHCT #### [facility] [address] [place] [address] Dr. Lucho De León Sodium [Moles/Vol] 140 mmol/L Normal 136-145 [facility] Comment on above: Performed By: #### H GBHCT #### [facility] [address] [place] [address] Dr. Lucho De León Urea nitrogen [Mass/Vol] 15.0 mg/dL Normal 7.0-18.0 [facility] Comment on above: Performed By: #### H GBHCT #### [facility] [address] [place] [address] Dr. Lucho De León Urea nitrogen/Creatinine [Mass ratio] 18.8 mg/mg Normal [facility] Comment on above: Performed By: #### H GBHCT #### [facility] [address] [place] [address] Dr. Lucho De León NM STRESS/REST MULTIon 04-27 NM STRESS/REST MULTI Patient: DARIN THACKER Exam Date: 04/27/2022 : 1950 Gender:M Ordering : [facility] Admission #: [id number] Family : Order #: [id number] CLICK HERE TO VIEW EXAM RADIOLOGY REPORT [...] STUDY: PERFUSION DEFECT: LOCATION: Mid-inferior. Apical inferior. Lorman. SIZE: Medium (3-4 segments). SEVERITY: Mild. TYPE: [...] MD on 04/28/2022 at 08:01 Normal [facility] CBC AUTO DIFFon 04-14-2022 BASO # 0.0 103/ul Normal 0.0-0.1 [facility] Comment on above: Performed By: #### A 1C #### [facility] [address] [address] [address] Lucho De León Basophils/100 WBC (Bld) 0.5 % Normal 0.2-2.0 [facility] Comment on above: Performed By: #### A 1C #### [facility] [address] [place] [address] Dr. Lucho De León EO # 0.1 103/ul Normal 0.0-0.7 [facility] Comment on above: Performed By: #### A 1C #### [facility] [address] [place] [address] Dr. Lucho De León Eosinophils/100 WBC (Bld) 2.0 % Normal 0.9-7.0 [facility] Comment on above: Performed By: #### A 1C #### [facility] [address] [place] [address] Dr. Lucho De León Erythrocyte distribution width (RBC) [Ratio] 15.0 % Normal 11.0-15.0 [facility] Comment on above: Performed By: #### A 1C #### [facility] [address] [place] [address] Dr. Lucho De León Hematocrit (Bld) [Volume fraction] 39.1 % Critically low 42.0-54.0 [facility] Comment on above: Performed By: #### A 1C #### [facility] [address] [place] [address] Dr. Lucho De León Hemoglobin (Bld) [Mass/Vol] 12.5 g/dL Critically low 14.0-18.0 [facility] Comment on above: Performed By: #### A 1C #### [facility] [address] [place] [address] Dr. Luhco De León IG # 0.02 10e3/ul Normal 0.00-0.03 [facility] Comment on above: Performed By: #### A 1C #### [facility] [address] [place] [address] Dr. Lucho De León IG % 0.4 % Normal 0.0-0.5 [facility] Comment on above: Performed By: #### A 1C #### [facility] [address] [place] [address] Dr. Lucho De León LYMPH # 1.7 103/ul Normal 1.2-3.8 [facility] Comment on above: Performed By: #### A 1C #### [facility] [address] [place] [address] Dr. Lucho De León Lymphocytes/100 WBC (Bld) 30.7 % Normal 20.5-60.0 [facility] Comment on above: Performed By: #### A 1C #### [facility] [address] [place] [address] Dr. Lucho De León MANUAL DIFF REQ NO Normal [facility] Comment on above: Performed By: #### A 1C #### [facility] [address] [place] [address] Dr. Lucho De León MCH (RBC) [Entitic mass] 29.7 pg Normal 25.9-34.0 [facility] Comment on above: Performed By: #### A 1C #### [facility] [address] [place] [address] Dr. Lucho De León MCHC (RBC) [Mass/Vol] 32.0 g/dL Normal 29.9-35.2 [facility] Comment on above: Performed By: #### A 1C #### [facility] [address] [place] [address] Dr. Lucho De León MCV (RBC) [Entitic vol] 92.9 fL Normal 80.0-94.0 [facility] Comment on above: Performed By: #### A 1C #### [facility] [address] [place] [address] Dr. Lucho De León MONO # 0.5 103/ul Normal 0.3-0.8 [facility] Comment on above: Performed By: #### A 1C #### [facility] [address] [place] [address] Dr. Lucho De León Monocytes/100 WBC (Bld) 9.6 % Normal 1.7-12.0 [facility] Comment on above: Performed By: #### A 1C #### [facility] [address] [place] [address] Dr. Lucho De León NEUT # 3.2 103/ul Normal 1.4-6.5 [facility] Comment on above: Performed By: #### A 1C #### [facility] [address] [place] [address] Dr. Lucho De León Neutrophils/100 WBC (Bld) 56.8 % Normal 43.0-75.0 [facility] Comment on above: Performed By: #### A 1C #### [facility] [address] [place] [address] Dr. Lucho De León Platelet mean volume (Bld) [Entitic vol] 9.2 fL Critically low 9.5-13.5 [facility] Comment on above: Performed By: #### A 1C #### [facility] [address] [place] [address] Dr. Lucho De León PLT 317 103/ul Normal 150-450 [facility] Comment on above: Performed By: #### A 1C #### [facility] [address] [place] [address] Dr. Lucho De León RBC 4.21 106/ul Critically low 4.70-6.10 [facility] Comment on above: Performed By: #### A 1C #### [facility] [address] [place] [address] Dr. Lucho De León WBC 5.6 103/ul Normal 4.0-11.0 [facility] Comment on above: Performed By: #### A 1C #### [facility] [address] [place] [address] Dr. Lucho De León ECHOCARDIO M/2D COMPLETEon 0 04-14-2022 ECHOCARDIO M/2D COMPLETE Patient: DARIN THACKER Exam Date: 04/14/2022 : 1950 Gender:M Ordering : OLI DYE [facility] Admission #: [id number] Family : Order #: [id number] CLICK HERE TO VIEW EXAM ECHOCARDIOGRAM REPORT [...] Laurent Galindo M.D. on 04/14/2022 at 17:53 [facility] PRBC LEUKOREDUCEDon 04-14-20 22 ABO and Rh group Nom (Bld) Cross Match Result Compatible Unit Blood Type O Pos Unit Number [id number] Status Information Transfused Product ID Red Blood Cells Product Code [id number] Cross Match Result Compatible Unit Blood Type O Pos Unit Number [id number] Status Information Transfused Product ID Red Blood Cells Product Code [id number] [facility] Comment on above: Performed By: #### P RBC #### [facility] [address] [place] [address] Dr. Lucho De León PRBC LEUKOREDUCED Cross Match Result Compatible Unit Blood Type O Pos Unit Number [id number] Status Information Transfused Product ID Red Blood Cells Product Code [id number] [facility] Comment on above: Performed By: #### P RBC #### [facility] [address] [place] [address] Dr. Lucho De León PRBC LEUKOREDUCED Cross Match Result Compatible Unit Blood Type O Pos Unit Number [id number] Status Information Transfused Product ID Red Blood Cells Product Code [id number] Normal [facility] Comment on above: Performed By: #### P RBC #### [facility] [address] [place] [address] Dr. Lucho De León CBC AUTO DIFFon 04-06-2022 BASO # 0.0 103/ul Normal 0.0-0.1 [facility] Comment on above: Performed By: #### C BC #### [facility] [address] [place] [address] Dr. Lucho De León Basophils/100 WBC (Bld) 0.4 % Normal 0.2-2.0 [facility] Comment on above: Performed By: #### C BC #### [facility] [address] [place] [address] Dr. Lucho De León EO # 0.1 103/ul Normal 0.0-0.7 [facility] Comment on above: Performed By: #### C BC #### [facility] [address] [place] [address] Dr. Lucho De León Eosinophils/100 WBC (Bld) 1.4 % Normal 0.9-7.0 [facility] Comment on above: Performed By: #### C BC #### [facility] [address] [place] [address] Dr. Lucho De León Erythrocyte distribution width (RBC) [Ratio] 16.3 % Critically high 11.0-15.0 [facility] Comment on above: Performed By: #### C BC #### [facility] [address] [place] [address] Dr. Lucho De León Hematocrit (Bld) [Volume fraction] 36.2 % Critically low 42.0-54.0 [facility] Comment on above: Performed By: #### C BC #### [facility] [address] [place] [address] Dr. Lucho De León Hemoglobin (Bld) [Mass/Vol] 11.3 g/dL Critically low 14.0-18.0 [facility] Comment on above: Performed By: #### C BC #### [facility] [address] [place] [address] Dr. Lucho De León IG # 0.04 10e3/ul Critically high 0.00-0.03 [facility] Comment on above: Performed By: #### C BC #### [facility] [address] [place] [address] Dr. Lucho De León IG % 0.5 % Normal 0.0-0.5 [facility] Comment on above: Performed By: #### C BC #### [facility] [address] [place] [address] Dr. Lucho De León LYMPH # 2.0 103/ul Normal 1.2-3.8 [facility] Comment on above: Performed By: #### C BC #### [facility] [address] [place] [address] Dr. Lucho De León Lymphocytes/100 WBC (Bld) 26.7 % Normal 20.5-60.0 [facility] Comment on above: Performed By: #### C BC #### [facility] [address] [place] [address] Dr. Lucho De León MANUAL DIFF REQ NO Normal [facility] Comment on above: Performed By: #### C BC #### [facility] [address] [place] [address] Dr. Lucho De León MCH (RBC) [Entitic mass] 29.7 pg Normal 25.9-34.0 [facility] Comment on above: Performed By: #### C BC #### [facility] [address] [place] [address] Dr. Lucho De León MCHC (RBC) [Mass/Vol] 31.2 g/dL Normal 29.9-35.2 [facility] Comment on above: Performed By: #### C BC #### [facility] [address] [place] [address] Dr. Lucho De León MCV (RBC) [Entitic vol] 95.3 fL Critically high 80.0-94.0 [facility] Comment on above: Performed By: #### C BC #### [facility] [address] [place] [address] Dr. Lucho De León MONO # 0.9 103/ul Critically high 0.3-0.8 [facility] Comment on above: Performed By: #### C BC #### [facility] [address] [place] [address] Dr. Lucho D eLeón Monocytes/100 WBC (Bld) 11.8 % Normal 1.7-12.0 [facility] Comment on above: Performed By: #### C BC #### [facility] [address] [place] [address] Dr. Lucho De León NEUT # 4.3 103/ul Normal 1.4-6.5 [facility] Comment on above: Performed By: #### C BC #### [facility] [address] [place] [address] Dr. Lucho De León Neutrophils/100 WBC (Bld) 59.2 % Normal 43.0-75.0 [facility] Comment on above: Performed By: #### C BC #### [facility] [address] [place] [address] Dr. Lucho De León Platelet mean volume (Bld) [Entitic vol] 9.1 fL Critically low 9.5-13.5 [facility] Comment on above: Performed By: #### C BC #### [facility] [address] [place] [address] Dr. Lucho De León PLT 371 103/ul Normal 150-450 [facility] Comment on above: Performed By: #### C BC #### [facility] [address] [place] [address] Dr. Lucho De León RBC 3.80 106/ul Critically low 4.70-6.10 [facility] Comment on above: Performed By: #### C BC #### [facility] [address] [place] [address] Dr. Lucho De León WBC 7.3 103/ul Normal 4.0-11.0 [facility] Comment on above: Performed By: #### C BC #### [facility] [address] [place] [address] Dr. Lucho De León PROF CHEM 8 (BAS METB)on 06- 22-2022 Anion gap [Moles/Vol] 12.4 mmol/L Normal [facility] Comment on above: Performed By: #### A 1C #### [facility] [address] [place] [address] Dr. Lucho De León Calcium [Mass/Vol] 9.3 mg/dL Normal 8.5-10.1 [facility] Comment on above: Performed By: #### A 1C #### [facility] [address] [place] [address] Dr. Lucho De León Chloride [Moles/Vol] 104 mmol/L Normal 98-107 [facility] Comment on above: Performed By: #### A 1C #### [facility] [address] [place] [address] Dr. Lucho De León CO2 [Moles/Vol] 24.6 mmol/L Normal 21.0-32.0 [facility] Comment on above: Performed By: #### A 1C #### [facility] [address] [place] [address] Dr. Lucho De León Creatinine [Mass/Vol] 0.67 mg/dL Critically low 0.70-1.30 [facility] Comment on above: Performed By: #### A 1C #### [facility] [address] [place] [address] Dr. Lucho De León EGFR-AF SURINAMESE >60 Normal >=60 [facility] Comment on above: Performed By: #### A 1C #### [facility] [address] [place] [address] Dr. Lucho De León EGFR-NON AF SURINAMESE >60 Normal >=60 [facility] Comment on above: Performed By: #### A 1C #### [facility] [address] [place] [address] Dr. Lucho De León Glucose [Mass/Vol] 144 mg/dL Critically high 74-106 [facility] Comment on above: Performed By: #### A 1C #### [facility] [address] [place] [address] Dr. Lucho De León Potassium [Moles/Vol] 5.0 mmol/L Normal 3.5-5.1 [facility] Comment on above: Performed By: #### A 1C #### [facility] [address] [place] [address] Dr. Lucho De León Sodium [Moles/Vol] 136 mmol/L Normal 136-145 [facility] Comment on above: Performed By: #### A 1C #### [facility] [address] [place] [address] Dr. Lucho De León Urea nitrogen [Mass/Vol] 12.0 mg/dL Normal 7.0-18.0 [facility] Comment on above: Performed By: #### A 1C #### [facility] [address] [place] [address] Dr. Lucho De León Urea nitrogen/Creatinine [Mass ratio] 17.9 mg/mg Normal [facility] Comment on above: Performed By: #### A 1C #### [facility] [address] [place] [address] Dr. Lucho De León CBC AUTO DIFFon 03-30-2022 BASO # 0.0 103/ul Normal 0.0-0.1 [facility] Comment on above: Performed By: #### C BC #### [facility] [address] [place] [address] Dr. Lucho De León Basophils/100 WBC (Bld) 0.2 % Normal 0.2-2.0 [facility] Comment on above: Performed By: #### C BC #### [facility] [address] [place] [address] Dr. Lucho De León EO # 0.1 103/ul Normal 0.0-0.7 [facility] Comment on above: Performed By: #### C BC #### [facility] [address] [place] [address] Dr. Lucho De León Eosinophils/100 WBC (Bld) 0.9 % Normal 0.9-7.0 [facility] Comment on above: Performed By: #### C BC #### [facility] [address] [place] [address] Dr. Lucho De León Erythrocyte distribution width (RBC) [Ratio] 16.9 % Critically high 11.0-15.0 [facility] Comment on above: Performed By: #### C BC #### [facility] [address] [address] [address] Lucho De León Hematocrit (Bld) [Volume fraction] 29.9 % Critically low 42.0-54.0 [facility] Comment on above: Performed By: #### C BC #### [facility] [address] [place] [address] Dr. Lucho De León Hemoglobin (Bld) [Mass/Vol] 10.1 g/dL Critically low 14.0-18.0 [facility] Comment on above: Performed By: #### C BC #### [facility] [address] [place] [address] Dr. Lucho De León IG # 0.10 10e3/ul Critically high 0.00-0.03 [facility] Comment on above: Performed By: #### C BC #### [facility] [address] [place] [address] Dr. Lucho De León IG % 0.9 % Critically high 0.0-0.5 [facility] Comment on above: Performed By: #### C BC #### [facility] [address] [place] [address] Dr. Lucho De León LYMPH # 2.0 103/ul Normal 1.2-3.8 [facility] Comment on above: Performed By: #### C BC #### [facility] [address] [place] [address] Dr. Lucho De León Lymphocytes/100 WBC (Bld) 18.3 % Critically low 20.5-60.0 [facility] Comment on above: Performed By: #### C BC #### [facility] [address] [place] [address] Dr. Lucho De León MANUAL DIFF REQ NO Normal [facility] Comment on above: Performed By: #### C BC #### [facility] [address] [place] [address] Dr. Lucho De León MCH (RBC) [Entitic mass] 30.6 pg Normal 25.9-34.0 [facility] Comment on above: Performed By: #### C BC #### [facility] [address] [address] [address] Lucho De León MCHC (RBC) [Mass/Vol] 33.8 g/dL Normal 29.9-35.2 [facility] Comment on above: Performed By: #### C BC #### [facility] [address] [address] [address] Lucho De León MCV (RBC) [Entitic vol] 90.6 fL Normal 80.0-94.0 [facility] Comment on above: Performed By: #### C BC #### [facility] [address] [address] [address] Lucho De León MONO # 0.9 103/ul Critically high 0.3-0.8 [facility] Comment on above: Performed By: #### C BC #### [facility] [address] [place] [address] Dr. Lucho De León Monocytes/100 WBC (Bld) 8.2 % Normal 1.7-12.0 [facility] Comment on above: Performed By: #### C BC #### [facility] [address] [address] [address] Lucho De León NEUT # 8.0 103/ul Critically high 1.4-6.5 [facility] Comment on above: Performed By: #### C BC #### [facility] [address] [place] [address] Dr. Lucho De León Neutrophils/100 WBC (Bld) 71.5 % Normal 43.0-75.0 [facility] Comment on above: Performed By: #### C BC #### [facility] [address] [address] [address] Lucho De León Platelet mean volume (Bld) [Entitic vol] 9.7 fL Normal 9.5-13.5 [facility] Comment on above: Performed By: #### C BC #### [facility] [address] [address] [address] Lucho De León PLT 195 103/ul Normal 150-450 [facility] Comment on above: Performed By: #### C BC #### [facility] [address] [address] [address] Lucho De León RBC 3.30 106/ul Critically low 4.70-6.10 [facility] Comment on above: Performed By: #### C BC #### [facility] [address] [address] [address] Lucho De León WBC 11.1 103/ul Critically high 4.0-11.0 [facility] Comment on above: Performed By: #### C BC #### [facility] [address] [address] [address] Lucho De León PROF CHEM 8 (BAS METB)on Anion gap [Moles/Vol] 11.8 mmol/L Normal [facility] Comment on above: Performed By: #### C BC #### [facility] [address] [place] [address] Dr. Lucho De León Calcium [Mass/Vol] 8.5 mg/dL Normal 8.5-10.1 [facility] Comment on above: Performed By: #### C BC #### [facility] [address] [address] [address] Lucho De León Chloride [Moles/Vol] 103 mmol/L Normal 98-107 [facility] Comment on above: Performed By: #### C BC #### [facility] [address] [address] [address] Lucho De León CO2 [Moles/Vol] 25.8 mmol/L Normal 21.0-32.0 [facility] Comment on above: Performed By: #### C BC #### [facility] [address] [place] [address] Dr. Lucho De León Creatinine [Mass/Vol] 0.56 mg/dL Critically low 0.70-1.30 [facility] Comment on above: Performed By: #### C BC #### [facility] [address] [address] [address] Lucho De León EGFR-AF SURINAMESE >60 Normal >=60 [facility] Comment on above: Performed By: #### C BC #### [facility] [address] [address] [address] Lucho De León EGFR-NON AF SURINAMESE >60 Normal >=60 [facility] Comment on above: Performed By: #### C BC #### [facility] [address] [address] [address] Lucho De León Glucose [Mass/Vol] 166 mg/dL Critically high 74-106 [facility] Comment on above: Performed By: #### C BC #### [facility] [address] [address] [address] Lucho De León Potassium [Moles/Vol] 3.6 mmol/L Normal 3.5-5.1 [facility] Comment on above: Performed By: #### C BC #### [facility] [address] [place] [address] Dr. Lucho De León Sodium [Moles/Vol] 137 mmol/L Normal 136-145 [facility] Comment on above: Performed By: #### C BC #### [facility] [address] [place] [address] Dr. Lucho De León Urea nitrogen [Mass/Vol] 6.0 mg/dL Critically low 7.0-18.0 [facility] Comment on above: Performed By: #### C BC #### [facility] [address] [place] [address] Dr. Lucho De León Urea nitrogen/Creatinine [Mass ratio] 10.7 mg/mg Normal [facility] Comment on above: Performed By: #### C BC #### [facility] [address] [place] [address] Dr. Lucho De León CBC AUTO DIFFon 03-29-2022 BASO # 0.0 103/ul Normal 0.0-0.1 [facility] Comment on above: Performed By: #### A 1C #### [facility] [address] [place] [address] Dr. Lucho De León Basophils/100 WBC (Bld) 0.3 % Normal 0.2-2.0 [facility] Comment on above: Performed By: #### A 1C #### [facility] [address] [address] [address] Lucho De León EO # 0.1 103/ul Normal 0.0-0.7 [facility] Comment on above: Performed By: #### A 1C #### [facility] [address] [place] [address] Dr. Lucho De León Eosinophils/100 WBC (Bld) 0.8 % Critically low 0.9-7.0 [facility] Comment on above: Performed By: #### A 1C #### [facility] [address] [place] [address] Dr. Lucho De León Erythrocyte distribution width (RBC) [Ratio] 16.9 % Critically high 11.0-15.0 [facility] Comment on above: Performed By: #### A 1C #### [facility] [address] [place] [address] Dr. Lucho De León Hematocrit (Bld) [Volume fraction] 23.0 % Critically low 42.0-54.0 [facility] Comment on above: Performed By: #### A 1C #### [facility] [address] [place] [address] Dr. Lucho De León Hemoglobin (Bld) [Mass/Vol] 7.6 g/dL Critically low 14.0-18.0 [facility] Comment on above: Performed By: #### A 1C #### [facility] [address] [place] [address] Dr. Lucho De León IG # 0.10 10e3/ul Critically high 0.00-0.03 [facility] Comment on above: Performed By: #### A 1C #### [facility] [address] [place] [address] Dr. Lucho De León IG % 1.3 % Critically high 0.0-0.5 [facility] Comment on above: Performed By: #### A 1C #### [facility] [address] [place] [address] Dr. Lucho De León LYMPH # 2.4 103/ul Normal 1.2-3.8 [facility] Comment on above: Performed By: #### A 1C #### [facility] [address] [place] [address] Dr. Lucho De León Lymphocytes/100 WBC (Bld) 32.1 % Normal 20.5-60.0 [facility] Comment on above: Performed By: #### A 1C #### [facility] [address] [place] [address] Dr. Lucho De León MANUAL DIFF REQ NO Normal [facility] Comment on above: Performed By: #### A 1C #### [facility] [address] [place] [address] Dr. Lucho De León MCH (RBC) [Entitic mass] 30.9 pg Normal 25.9-34.0 [facility] Comment on above: Performed By: #### A 1C #### [facility] [address] [place] [address] Dr. Lucho De León MCHC (RBC) [Mass/Vol] 33.0 g/dL Normal 29.9-35.2 [facility] Comment on above: Performed By: #### A 1C #### [facility] [address] [place] [address] Dr. Lucho De León MCV (RBC) [Entitic vol] 93.5 fL Normal 80.0-94.0 [facility] Comment on above: Performed By: #### A 1C #### [facility] [address] [place] [address] Dr. Lucho De León MONO # 0.8 103/ul Normal 0.3-0.8 [facility] Comment on above: Performed By: #### A 1C #### [facility] [address] [place] [address] Dr. Lucho De León Monocytes/100 WBC (Bld) 11.3 % Normal 1.7-12.0 [facility] Comment on above: Performed By: #### A 1C #### [facility] [address] [place] [address] Dr. Lucho De León NEUT # 4.0 103/ul Normal 1.4-6.5 [facility] Comment on above: Performed By: #### A 1C #### [facility] [address] [place] [address] Dr. Lucho De León Neutrophils/100 WBC (Bld) 54.2 % Normal 43.0-75.0 [facility] Comment on above: Performed By: #### A 1C #### [facility] [address] [place] [address] Dr. Lucho De León Platelet mean volume (Bld) [Entitic vol] 9.7 fL Normal 9.5-13.5 [facility] Comment on above: Performed By: #### A 1C #### [facility] [address] [place] [address] Dr. Lucho De León PLT 155 103/ul Normal 150-450 [facility] Comment on above: Performed By: #### A 1C #### [facility] [address] [place] [address] Dr. Lucho De León RBC 2.46 106/ul Critically low 4.70-6.10 [facility] Comment on above: Performed By: #### A 1C #### [facility] [address] [place] [address] Dr. Lucho De León WBC 7.4 103/ul Normal 4.0-11.0 [facility] Comment on above: Performed By: #### A 1C #### [facility] [address] [place] [address] Dr. Lucho De León HEMOGLOBIN AND HEMATOCRITon 03-29-2022 Hematocrit (Bld) [Volume fraction] 27.6 % Critically low 42.0-54.0 [facility] Comment on above: Performed By: #### A 1C #### [facility] [address] [place] [address] Dr. Lucho De León Hemoglobin (Bld) [Mass/Vol] 9.0 g/dL Critically low 14.0-18.0 [facility] Comment on above: Performed By: #### A 1C #### [facility] [address] [place] [address] Dr. Lucho De León POINT OF CARE GLUCOSEon - Glucose [Mass/Vol] 135 mg/dL Critically high 74-106 [facility] Comment on above: Performed By: #### M ALBR #### [facility] [address] [address] [address] Lucho De León Glucose [Mass/Vol] 159 mg/dL Critically high 74-106 [facility] Comment on above: Performed By: #### M ALBR #### [facility] [address] [place] [address] Dr. Lucho De León Glucose [Mass/Vol] 225 mg/dL Critically high -106 [facility] Comment on above: Performed By: #### C VDTBH #### [facility] [address] [place] [address] Dr. Lucho De León Glucose [Mass/Vol] 181 mg/dL Critically high -106 [facility] Comment on above: Performed By: #### P OCGLUC #### [facility] [address] [place] [address] Dr. Lucho De León PROF CHEM 8 (BAS METB)on Anion gap [Moles/Vol] 9.5 mmol/L Normal [facility] Comment on above: Performed By: #### A 1C #### [facility] [address] [place] [address] Dr. Lucho De León Calcium [Mass/Vol] 7.7 mg/dL Critically low 8.5-10.[address] [facility] Comment on above: Performed By: #### A 1C #### [facility] [address] [place] [address] Dr. Lucho De León Chloride [Moles/Vol] 107 mmol/L Normal 98-107 [facility] Comment on above: Performed By: #### A 1C #### [facility] [address] [place] [address] Dr. Lucho De León CO2 [Moles/Vol] 23.7 mmol/L Normal 21.0-32.0 [facility] Comment on above: Performed By: #### A 1C #### [facility] [address] [place] [address] Dr. Lucho De León Creatinine [Mass/Vol] 0.58 mg/dL Critically low 0.70-1.30 [facility] Comment on above: Performed By: #### A 1C #### [facility] [address] [place] [address] Dr. Lucho De León EGFR-AF SURINAMESE >60 Normal >=60 [facility] Comment on above: Performed By: #### A 1C #### [facility] [address] [place] [address] Dr. Lucho De León EGFR-NON AF SURINAMESE >60 Normal >=60 [facility] Comment on above: Performed By: #### A 1C #### [facility] [address] [address] [address] Lucho De León Glucose [Mass/Vol] 125 mg/dL Critically high 74-106 [facility] Comment on above: Performed By: #### A 1C #### [facility] [address] [place] [address] Dr. Lucho De León Potassium [Moles/Vol] 4.2 mmol/L Normal 3.5-5.1 [facility] Comment on above: Performed By: #### A 1C #### [facility] [address] [place] [address] Dr. Lucho De León Sodium [Moles/Vol] 136 mmol/L Normal 136-145 [facility] Comment on above: Performed By: #### A 1C #### [facility] [address] [place] [address] Dr. Lucho De León Urea nitrogen [Mass/Vol] 15.0 mg/dL Normal 7.0-18.0 [facility] Comment on above: Performed By: #### A 1C #### [facility] [address] [place] [address] Dr. Lucho De León Urea nitrogen/Creatinine [Mass ratio] 25.9 mg/mg Normal [facility] Comment on above: Performed By: #### A 1C #### [facility] [address] [place] [address] Dr. Lucho De León CBC AUTO DIFFon 03-28-2022 BASO # 0.0 103/ul Normal 0.0-0.1 [facility] Comment on above: Performed By: #### B MP #### [facility] [address] [place] [address] Dr. Lucho De León Basophils/100 WBC (Bld) 0.3 % Normal 0.2-2.0 [facility] Comment on above: Performed By: #### B MP #### [facility] [address] [place] [address] Dr. Lucho De León EO # 0.0 103/ul Normal 0.0-0.7 [facility] Comment on above: Performed By: #### B MP #### [facility] [address] [place] [address] Dr. Lucho De León Eosinophils/100 WBC (Bld) 0.4 % Critically low 0.9-7.0 [facility] Comment on above: Performed By: #### B MP #### [facility] [address] [place] [address] Dr. Lucho De León Erythrocyte distribution width (RBC) [Ratio] 15.8 % Critically high 11.0-15.0 [facility] Comment on above: Performed By: #### B MP #### [facility] [address] [place] [address] Dr. Lucho De León Hematocrit (Bld) [Volume fraction] 23.6 % Critically low 42.0-54.0 [facility] Comment on above: Performed By: #### B MP #### [facility] [address] [place] [address] Dr. Lucho De León Hemoglobin (Bld) [Mass/Vol] 7.9 g/dL Critically low 14.0-18.0 [facility] Comment on above: Performed By: #### B MP #### [facility] [address] [place] [address] Dr. Lucho De León IG # 0.17 10e3/ul Critically high 0.00-0.03 [facility] Comment on above: Performed By: #### B MP #### [facility] [address] [place] [address] Dr. Lucho De León IG % 1.6 % Critically high 0.0-0.5 [facility] Comment on above: Performed By: #### B MP #### [facility] [address] [place] [address] Dr. Lucho De León LYMPH # 2.8 103/ul Normal 1.2-3.8 [facility] Comment on above: Performed By: #### B MP #### [facility] [address] [place] [address] Dr. Lucho De León Lymphocytes/100 WBC (Bld) 27.0 % Normal 20.5-60.0 [facility] Comment on above: Performed By: #### B MP #### [facility] [address] [place] [address] Dr. Lucho De León MANUAL DIFF REQ NO Normal [facility] Comment on above: Performed By: #### B MP #### [facility] [address] [place] [address] Dr. Lucho De León MCH (RBC) [Entitic mass] 30.3 pg Normal 25.9-34.0 [facility] Comment on above: Performed By: #### B MP #### [facility] [address] [place] [address] Dr. Lucho De León MCHC (RBC) [Mass/Vol] 33.5 g/dL Normal 29.9-35.2 [facility] Comment on above: Performed By: #### B MP #### [facility] [address] [place] [address] Dr. Lucho De León MCV (RBC) [Entitic vol] 90.4 fL Normal 80.0-94.0 [facility] Comment on above: Performed By: #### B MP #### [facility] [address] [place] [address] Dr. Lucho De León MONO # 1.2 103/ul Critically high 0.3-0.8 [facility] Comment on above: Performed By: #### B MP #### [facility] [address] [place] [address] Dr. Lucho De León Monocytes/100 WBC (Bld) 11.6 % Normal 1.7-12.0 [facility] Comment on above: Performed By: #### B MP #### [facility] [address] [place] [address] Dr. Lucho De León NEUT # 6.2 103/ul Normal 1.4-6.5 [facility] Comment on above: Performed By: #### B MP #### [facility] [address] [place] [address] Dr. Lucho De León Neutrophils/100 WBC (Bld) 59.1 % Normal 43.0-75.0 [facility] Comment on above: Performed By: #### B MP #### [facility] [address] [place] [address] Dr. Lucho De León Platelet mean volume (Bld) [Entitic vol] 10.1 fL Normal 9.5-13.5 [facility] Comment on above: Performed By: #### B MP #### [facility] [address] [place] [address] Dr. Lucho De León PLT 166 103/ul Normal 150-450 [facility] Comment on above: Performed By: #### B MP #### [facility] [address] [place] [address] Dr. Lucho De León RBC 2.61 106/ul Critically low 4.70-6.10 [facility] Comment on above: Performed By: #### B MP #### [facility] [address] [place] [address] Dr. Lucho De León WBC 10.5 103/ul Normal 4.0-11.0 [facility] Comment on above: Performed By: #### B MP #### [facility] [address] [place] [address] Dr. Lucho De León HEMOGLOBIN AND HEMATOCRITon 03-28-2022 Hematocrit (Bld) [Volume fraction] 26.4 % Critically low 42.0-54.0 [facility] Comment on above: Performed By: #### H GBHCT #### [facility] [address] [place] [address] Dr. Lucho De León Hemoglobin (Bld) [Mass/Vol] 8.8 g/dL Critically low 14.0-18.0 [facility] Comment on above: Performed By: #### H GBHCT #### [facility] [address] [place] [address] Dr. Lucho De León Hematocrit (Bld) [Volume fraction] 20.9 % Critically low 42.0-54.0 [facility] Comment on above: Performed By: #### C VDTBH #### [facility] [address] [place] [address] Dr. Lucho De León Hemoglobin (Bld) [Mass/Vol] 7.1 g/dL Critically low 14.0-18.0 [facility] Comment on above: Performed By: #### C VDTBH #### [facility] [address] [place] [address] Dr. Lucho De León POINT OF CARE GLUCOSEon 03-16 Glucose [Mass/Vol] 132 mg/dL Critically high 74-106 [facility] Comment on above: Performed By: #### C BC #### [facility] [address] [place] [address] Dr. Lucho De León Glucose [Mass/Vol] 198 mg/dL Critically high 74-106 [facility] Comment on above: Performed By: #### A 1C #### [facility] [address] [place] [address] Dr. Lucho De León Glucose [Mass/Vol] 82 mg/dL Normal 74-106 [facility] Comment on above: Performed By: #### C BC #### [facility] [address] [place] [address] Dr. Lucho De León Glucose [Mass/Vol] 85 mg/dL Normal 74-106 [facility] Comment on above: Performed By: #### C VDTBH #### [facility] [address] [place] [address] Dr. Lucho De León Glucose [Mass/Vol] 115 mg/dL Critically high 74-106 [facility] Comment on above: Performed By: #### A 1C #### [facility] [address] [place] [address] Dr. Lucho De León PROF CHEM 8 (BAS METB)on Anion gap [Moles/Vol] 10.6 mmol/L Normal [facility] Comment on above: Performed By: #### M ALBR #### [facility] [address] [address] [address] Lucho De León Calcium [Mass/Vol] 8.0 mg/dL Critically low 8.5-10.[address] [facility] Comment on above: Performed By: #### M ALBR #### [facility] [address] [address] [address] Lucho De León Chloride [Moles/Vol] 108 mmol/L Critically high 98-107 [facility] Comment on above: Performed By: #### M ALBR #### [facility] [address] [address] [address] Lucho De León CO2 [Moles/Vol] 23.6 mmol/L Normal 21.0-32.0 [facility] Comment on above: Performed By: #### M ALBR #### [facility] [address] [place] [address] Dr. Lucho De León Creatinine [Mass/Vol] 0.54 mg/dL Critically low 0.70-1.30 [facility] Comment on above: Performed By: #### M ALBR #### [facility] [address] [address] [address] Lucho De León EGFR-AF SURINAMESE >60 Normal >=60 [facility] Comment on above: Performed By: #### M ALBR #### [facility] [address] [place] [address] Dr. Lucho De León EGFR-NON AF SURINAMESE >60 Normal >=60 [facility] Comment on above: Performed By: #### M ALBR #### [facility] [address] [address] [address] Lucho De León Glucose [Mass/Vol] 126 mg/dL Critically high 74-106 [facility] Comment on above: Performed By: #### M ALBR #### [facility] [address] [address] [address] Lucho De León Potassium [Moles/Vol] 4.2 mmol/L Normal 3.5-5.1 [facility] Comment on above: Performed By: #### M ALBR #### [facility] [address] [address] [address] Lucho De León Sodium [Moles/Vol] 138 mmol/L Normal 136-145 [facility] Comment on above: Performed By: #### M ALBR #### [facility] [address] [place] [address] Dr. Lucho De León Urea nitrogen [Mass/Vol] 28.0 mg/dL Critically high 7.0-18.0 [facility] Comment on above: Performed By: #### M ALBR #### [facility] [address] [place] [address] Dr. Lucho De León Urea nitrogen/Creatinine [Mass ratio] 51.9 mg/mg Normal [facility] Comment on above: Performed By: #### M ALBR #### [facility] [address] [place] [address] Dr. Lucho De León CBC W MANUAL DIFFon 03-27-20 22 ATYPICAL LYMPH # Normal [facility] Comment on above: Performed By: #### C VDTBH #### [facility] [address] [place] [address] Dr. Lucho De León ATYPICAL LYMPH % Normal [facility] Comment on above: Performed By: #### C VDTBH #### [facility] [address] [place] [address] Dr. Lucho De León BAND # 0.4 103/ul Critically high 0.0-0.3 [facility] Comment on above: Performed By: #### C VDTBH #### [facility] [address] [place] [address] Dr. Lucho De León BAND % 3 % Normal 0-5 [facility] Comment on above: Performed By: #### C VDTBH #### [facility] [address] [place] [address] Dr. Lucho De León BASOM # 0.00 103/ul Normal 0.00-0.10 [facility] Comment on above: Performed By: #### C VDTBH #### [facility] [address] [place] [address] Dr. Lucho De León BASOM % 0.0 % Critically low 0.2-2.0 [facility] Comment on above: Performed By: #### C VDTBH #### [facility] [address] [place] [address] Dr. Lucho De León BLAST # Normal [facility] Comment on above: Performed By: #### C VDTBH #### [facility] [address] [place] [address] Dr. Lucho De León BLAST % Normal [facility] Comment on above: Performed By: #### C VDTBH #### [facility] [address] [place] [address] Dr. Lucho De León CORRECTED WBC Normal 4.0-11.0 [facility] Comment on above: Performed By: #### C VDTBH #### [facility] [address] [place] [address] Dr. Lucho De León EOS # 0.00 103/ul Normal 0.00-0.70 [facility] Comment on above: Performed By: #### C VDTBH #### [facility] [address] [place] [address] Dr. Lucho De León EOS% 0.0 % Critically low 0.9-7.0 [facility] Comment on above: Performed By: #### C VDTBH #### [facility] [address] [place] [address] Dr. Lucho De León HCT 25.1 % Critically low 42.0-54.0 [facility] Comment on above: Performed By: #### C VDTBH #### [facility] [address] [place] [address] Dr. Lucho De León HGB 8.5 g/dl Critically low 14.0-18.0 [facility] Comment on above: Performed By: #### C VDTBH #### [facility] [address] [place] [address] Dr. Lucho De León LYMPHM # 2.10 103/ul Normal 1.20-3.80 [facility] Comment on above: Performed By: #### C VDTBH #### [facility] [address] [place] [address] Dr. Lucho De León LYMPHM% 15.0 % Critically low 20.5-60.0 [facility] Comment on above: Performed By: #### C VDTBH #### [facility] [address] [place] [address] Dr. Lucho De León MCH 30.9 pg Normal 25.9-34.0 [facility] Comment on above: Performed By: #### C VDTBH #### [facility] [address] [place] [address] Dr. Lucho De León MCHC 33.9 g/dl Normal 29.9-35.2 [facility] Comment on above: Performed By: #### C VDTBH #### [facility] [address] [place] [address] Dr. Lucho De León MCV 91.3 fL Normal 80.0-94.0 [facility] Comment on above: Performed By: #### C VDTBH #### [facility] [address] [place] [address] Dr. Lucho De León METAMYELOCYTE # Normal [facility] Comment on above: Performed By: #### C VDTBH #### [facility] [address] [place] [address] Dr. Lucho De León METAMYELOCYTE % Normal [facility] Comment on above: Performed By: #### C VDTBH #### [facility] [address] [place] [address] Dr. Lucho De León MONOM# 0.98 103/ul Critically high 0.30-0.80 [facility] Comment on above: Performed By: #### C VDTBH #### [facility] [address] [place] [address] Dr. Lucho De León MONOM% 7.0 % Normal 1.7-12.0 [facility] Comment on above: Performed By: #### C VDTBH #### [facility] [address] [place] [address] Dr. Lucho De León MPV 10.7 fL Normal 9.5-13.5 [facility] Comment on above: Performed By: #### C VDTBH #### [facility] [address] [address] [address] Lucho De León MYELOCYTE # Normal [facility] Comment on above: Performed By: #### C VDTBH #### [facility] [address] [address] [address] Lucho De León MYELOCYTE % Normal [facility] Comment on above: Performed By: #### C VDTBH #### [facility] [address] [address] [address] Lucho De León NRBC 3 Normal [facility] Comment on above: Performed By: #### C VDTBH #### [facility] [address] [address] [address] Lucho De León PLT 176 103/ul Normal 150-450 [facility] Comment on above: Performed By: #### C VDTBH #### [facility] [address] [address] [address] Lucho De León RBC 2.75 106/ul Critically low 4.70-6.10 [facility] Comment on above: Performed By: #### C VDTBH #### [facility] [address] [address] [address] Lucho De León RDW 14.2 % Normal 11.0-15.0 [facility] Comment on above: Performed By: #### C VDTBH #### [facility] [address] [address] [address] Lucho De León SEG # 10.50 103/ul Critically high 1.40-6.50 [facility] Comment on above: Performed By: #### C VDTBH #### [facility] [address] [place] [address] Dr. Lucho De León SEG % 75.0 % Normal 43.0-75.0 [facility] Comment on above: Performed By: #### C VDTBH #### [facility] [address] [address] [address] Lucho De León WBC 14.0 103/ul Critically high 4.0-11.0 [facility] Comment on above: Performed By: #### C VDTBH #### [facility] [address] [place] [address] Dr. Lucho De León HEMOGLOBIN AND HEMATOCRITon 03-27-2022 Hematocrit (Bld) [Volume fraction] 24.4 % Critically low 42.0-54.0 [facility] Comment on above: Performed By: #### H GBHCT #### [facility] [address] [place] [address] Dr. Lucho De León Hemoglobin (Bld) [Mass/Vol] 8.3 g/dL Critically low 14.0-18.0 [facility] Comment on above: Performed By: #### H GBHCT #### [facility] [address] [place] [address] Dr. Lucho De León POINT OF CARE GLUCOSEon 03-16 Glucose [Mass/Vol] 222 mg/dL Critically high [address] [place] [address] Comment on above: Performed By: #### B MP #### [facility] [address] [place] [address] Dr. Lucho De León Glucose [Mass/Vol] 330 mg/dL Critically high [address] [place] [address] Comment on above: Performed By: #### H GBHCT #### [facility] [address] [place] [address] Dr. Lucho De León Glucose [Mass/Vol] 357 mg/dL Critically high [address] [place] [address] Comment on above: Performed By: #### A 1C #### [facility] [address] [place] [address] Dr. Lucho De León Glucose [Mass/Vol] 257 mg/dL Critically high [address] [place] [address] Comment on above: Performed By: #### M ALBR #### [facility] [address] [place] [address] Dr. Lucho De León Glucose [Mass/Vol] 330 mg/dL Critically high [address] [place] [address] Comment on above: Performed By: #### C VDTBH #### [facility] [address] [place] [address] Dr. Lucho De León PROF CHEM 8 (BAS METB)on Anion gap [Moles/Vol] 15.3 mmol/L Normal [facility] Comment on above: Performed By: #### B MP #### [facility] [address] [place] [address] Dr. Lucho De León Calcium [Mass/Vol] 7.9 mg/dL Critically low 8.5-10.1 [facility] Comment on above: Performed By: #### B MP #### [facility] [address] [address] [address] Lucho De León Chloride [Moles/Vol] 106 mmol/L Normal 98-107 [facility] Comment on above: Performed By: #### B MP #### [facility] [address] [place] [address] Dr. Lucho De León CO2 [Moles/Vol] 20.9 mmol/L Critically low 21.0-32.0 [facility] Comment on above: Performed By: #### B MP #### [facility] [address] [place] [address] Dr. Lucho De León Creatinine [Mass/Vol] 0.84 mg/dL Normal 0.70-1.30 [facility] Comment on above: Performed By: #### B MP #### [facility] [address] [place] [address] Dr. Lucho De León EGFR-AF SURINAMESE >60 Normal >=60 [facility] Comment on above: Performed By: #### B MP #### [facility] [address] [place] [address] Dr. Lucho De León EGFR-NON AF SURINAMESE >60 Normal >=60 [facility] Comment on above: Performed By: #### B MP #### [facility] [address] [place] [address] Dr. Lucho De León Glucose [Mass/Vol] 275 mg/dL Critically high 74-106 [facility] Comment on above: Performed By: #### B MP #### [facility] [address] [place] [address] Dr. Lucho De León Potassium [Moles/Vol] 5.2 mmol/L Critically high 3.5-5.1 [facility] Comment on above: Performed By: #### B MP #### [facility] [address] [address] [address] Lucho De León Sodium [Moles/Vol] 137 mmol/L Normal 136-145 [facility] Comment on above: Performed By: #### B MP #### [facility] [address] [address] [address] Lucho De León Urea nitrogen [Mass/Vol] 57.0 mg/dL Critically high 7.0-18.0 [facility] Comment on above: Performed By: #### B MP #### [facility] [address] [address] [address] Lucho De León Urea nitrogen/Creatinine [Mass ratio] 67.9 mg/mg Normal [facility] Comment on above: Performed By: #### B MP #### [facility] [address] [address] [address] Lucho De León TYPE AND SCREENon 03-27-2022 TYPE AND SCREEN Negative Normal [facility] Comment on above: Performed By: #### M ALBR #### [facility] [address] [address] [address] Lucho De León ABO RH RETYPEon 03-26-2022 ABO and Rh group Nom (Bld) DONE Normal [facility] Comment on above: Performed By: #### C VDTBH #### [facility] [address] [address] [address] Lucho De León AMYLASEon 03-26-2022 Amylase [Catalytic activity/Vol] 34 U/L Normal 25-115 [facility] Comment on above: Performed By: #### C BC #### [facility] [address] [address] [address] Lucho De León CBC AUTO DIFFon 03-26-2022 BASO # 0.0 103/ul Normal 0.0-0.1 [facility] Comment on above: Performed By: #### C BC #### [facility] [address] [address] [address] Lucho De León Basophils/100 WBC (Bld) 0.3 % Normal 0.2-2.0 [facility] Comment on above: Performed By: #### C BC #### [facility] [address] [place] [address] Dr. Lucho De León EO # 0.0 103/ul Normal 0.0-0.7 [facility] Comment on above: Performed By: #### C BC #### [facility] [address] [place] [address] Dr. Lucho De León Eosinophils/100 WBC (Bld) 0.3 % Critically low 0.9-7.0 [facility] Comment on above: Performed By: #### C BC #### [facility] [address] [place] [address] Dr. Lucho De León Erythrocyte distribution width (RBC) [Ratio] 13.9 % Normal 11.0-15.0 [facility] Comment on above: Performed By: #### C BC #### [facility] [address] [place] [address] Dr. Lucho De León Hematocrit (Bld) [Volume fraction] 30.5 % Critically low 42.0-54.0 [facility] Comment on above: Performed By: #### C BC #### [facility] [address] [place] [address] Dr. Lucho De León Hemoglobin (Bld) [Mass/Vol] 10.0 g/dL Critically low 14.0-18.0 [facility] Comment on above: Performed By: #### C BC #### [facility] [address] [place] [address] Dr. Lucho De León IG # 0.12 10e3/ul Critically high 0.00-0.03 [facility] Comment on above: Performed By: #### C BC #### [facility] [address] [place] [address] Dr. Lucho De León IG % 1.0 % Critically high 0.0-0.5 [facility] Comment on above: Performed By: #### C BC #### [facility] [address] [place] [address] Dr. Lucoh De León LYMPH # 1.4 103/ul Normal 1.2-3.8 [facility] Comment on above: Performed By: #### C BC #### [facility] [address] [place] [address] Dr. Lucho De León Lymphocytes/100 WBC (Bld) 12.5 % Critically low 20.5-60.0 [facility] Comment on above: Performed By: #### C BC #### [facility] [address] [place] [address] Dr. Lucho De León MANUAL DIFF REQ NO Normal [facility] Comment on above: Performed By: #### C BC #### [facility] [address] [place] [address] Dr. Lucho De León MCH (RBC) [Entitic mass] 31.2 pg Normal 25.9-34.0 [facility] Comment on above: Performed By: #### C BC #### [facility] [address] [place] [address] Dr. Lucho De León MCHC (RBC) [Mass/Vol] 32.8 g/dL Normal 29.9-35.2 [facility] Comment on above: Performed By: #### C BC #### [facility] [address] [place] [address] Dr. Lucho De León MCV (RBC) [Entitic vol] 95.0 fL Critically high 80.0-94.0 [facility] Comment on above: Performed By: #### C BC #### [facility] [address] [place] [address] Dr. Lucho De León MONO # 0.8 103/ul Normal 0.3-0.8 [facility] Comment on above: Performed By: #### C BC #### [facility] [address] [place] [address] Dr. Lucho De León Monocytes/100 WBC (Bld) 6.9 % Normal 1.7-12.0 [facility] Comment on above: Performed By: #### C BC #### [facility] [address] [place] [address] Dr. Lucho De León NEUT # 9.0 103/ul Critically high 1.4-6.5 [facility] Comment on above: Performed By: #### C BC #### [facility] [address] [place] [address] Dr. Lucho De León Neutrophils/100 WBC (Bld) 79.0 % Critically high 43.0-75.0 [facility] Comment on above: Performed By: #### C BC #### [facility] [address] [place] [address] Dr. Lucho De León Platelet mean volume (Bld) [Entitic vol] 10.2 fL Normal 9.5-13.5 [facility] Comment on above: Performed By: #### C BC #### [facility] [address] [place] [address] Dr. Lucho De León PLT 226 103/ul Normal 150-450 [facility] Comment on above: Performed By: #### C BC #### [facility] [address] [place] [address] Dr. Lucho De León RBC 3.21 106/ul Critically low 4.70-6.10 [facility] Comment on above: Performed By: #### C BC #### [facility] [address] [place] [address] Dr. Lucho De León WBC 11.4 103/ul Critically high 4.0-11.0 [facility] Comment on above: Performed By: #### C BC #### [facility] [address] [place] [address] Dr. Lucho De León CBC W MANUAL DIFFon 03-26-20 22 ATYPICAL LYMPH # Normal [facility] Comment on above: Performed By: #### M ALBR #### [facility] [address] [place] [address] Dr. Lucho De León ATYPICAL LYMPH % Normal [facility] Comment on above: Performed By: #### M ALBR #### [facility] [address] [place] [address] Dr. Lucho De León BAND # 0.3 103/ul Normal 0.0-0.3 [facility] Comment on above: Performed By: #### M ALBR #### [facility] [address] [place] [address] Dr. Lucho De León BAND % 2 % Normal 0-5 [facility] Comment on above: Performed By: #### M ALBR #### [facility] [address] [place] [address] Dr. Lucho De León BASOM # 0.00 103/ul Normal 0.00-0.10 [facility] Comment on above: Performed By: #### M ALBR #### [facility] [address] [place] [address] Dr. Lucho De León BASOM % 0.0 % Critically low 0.2-2.0 [facility] Comment on above: Performed By: #### M ALBR #### [facility] [address] [place] [address] Dr. Lucho De León BLAST # Normal [facility] Comment on above: Performed By: #### M ALBR #### [facility] [address] [place] [address] Dr. Lucho De León BLAST % Normal [facility] Comment on above: Performed By: #### M ALBR #### [facility] [address] [place] [address] Dr. Lucho De León CORRECTED WBC Normal 4.0-11.0 [facility] Comment on above: Performed By: #### M ALBR #### [facility] [address] [place] [address] Dr. Lucho De León EOS # 0.00 103/ul Normal 0.00-0.70 [facility] Comment on above: Performed By: #### M ALBR #### [facility] [address] [place] [address] Dr. Lucho De León EOS% 0.0 % Critically low 0.9-7.0 [facility] Comment on above: Performed By: #### M ALBR #### [facility] [address] [place] [address] Dr. Lucho De León HCT 20.0 % Critically low 42.0-54.0 [facility] Comment on above: Performed By: #### M ALBR #### [facility] [address] [address] [address] Lucho De León HGB 6.7 g/dl Critically low 14.0-18.0 [facility] Comment on above: Performed By: #### M ALBR #### [facility] [address] [address] [address] Lucho De León LYMPHM # 2.53 103/ul Normal 1.20-3.80 [facility] Comment on above: Performed By: #### M ALBR #### [facility] [address] [address] [address] Lucho De León LYMPHM% 17.0 % Critically low 20.5-60.0 [facility] Comment on above: Performed By: #### M ALBR #### [facility] [address] [place] [address] Dr. Lucho De León MCH 30.6 pg Normal 25.9-34.0 [facility] Comment on above: Performed By: #### M ALBR #### [facility] [address] [address] [address] Lucho De León MCHC 33.5 g/dl Normal 29.9-35.2 [facility] Comment on above: Performed By: #### M ALBR #### [facility] [address] [address] [address] Lucho De León MCV 91.3 fL Normal 80.0-94.0 [facility] Comment on above: Performed By: #### M ALBR #### [facility] [address] [address] [address] Lucho De León METAMYELOCYTE # Normal [facility] Comment on above: Performed By: #### M ALBR #### [facility] [address] [address] [address] Lucho De León METAMYELOCYTE % Normal [facility] Comment on above: Performed By: #### M ALBR #### [facility] [address] [place] [address] Dr. Lucho De León MONOM# 0.00 103/ul Critically low 0.30-0.80 [facility] Comment on above: Performed By: #### M ALBR #### [facility] [address] [place] [address] Dr. Lucho De León MONOM% 0.0 % Critically low 1.7-12.0 [facility] Comment on above: Performed By: #### M ALBR #### [facility] [address] [place] [address] Dr. Lucho De León MPV 10.9 fL Normal 9.5-13.5 [facility] Comment on above: Performed By: #### M ALBR #### [facility] [address] [place] [address] Dr. Lucho De León MYELOCYTE # Normal [facility] Comment on above: Performed By: #### M ALBR #### [facility] [address] [place] [address] Dr. Lucho De León MYELOCYTE % Normal [facility] Comment on above: Performed By: #### M ALBR #### [facility] [address] [place] [address] Dr. Lucho De León NRBC 2 Normal [facility] Comment on above: Performed By: #### M ALBR #### [facility] [address] [place] [address] Dr. Lucho De León PLT 214 103/ul Normal 150-450 [facility] Comment on above: Result Comment: Prev iously reported as: 69 On 03/26/2022 21:36 By [email or web address] Performed By: #### M ALBR #### [facility] [address] [place] [address] Dr. Lucho De León RBC 2.19 106/ul Critically low 4.70-6.10 [facility] Comment on above: Performed By: #### M ALBR #### [facility] [address] [place] [address] Dr. Lucho De León RDW 14.0 % Normal 11.0-15.0 [facility] Comment on above: Performed By: #### M ALBR #### [facility] [address] [place] [address] Dr. Lucho De León SEG # 12.07 103/ul Critically high 1.40-6.50 [facility] Comment on above: Performed By: #### M ALBR #### [facility] [address] [place], [place] [address] Dr. Lucho De León SEG % 81.0 % Critically high 43.0-75.0 [facility] Comment on above: Performed By: #### M ALBR #### [facility] [address] [place], [place] [address] Dr. Lucho De León WBC 14.9 103/ul Critically high 4.0-11.0 [facility] Comment on above: Performed By: #### M ALBR #### [facility] [address] [place], [place] [address] [address] ABD/PELV W CONon 03-26-20 CT ABD/PELV W CON EXAMINATION: CT ABD/PELV [...] ROSARIO BLANCO Date: 2022-03-26 05:29 Normal [facility] Covid-19 PCR (CVDTBH)on 03-16 SARS-CoV-2 (COVID-19) RNA IVANNA+probe Ql (Unsp spec) Not detected Normal NOT DETECTED [facility] Comment on above: Result Comment: When [...] for this test is supported by the [place] of [employer] and Human Service's declaration that [...] longer be used). Performed By: #### C VDTBH #### [facility] [address] [place] [address] Dr. Lucho De León ER URINE PROFILEon 2 Bilirubin Ql (U) Negative Normal NEGATIVE [facility] Comment on above: Performed By: #### A 1C #### [facility] [address] [place] [address] Dr. Lucho De León Clarity (U) CLEAR Normal CLEAR [facility] Comment on above: Performed By: #### A 1C #### [facility] [address] [place] [address] Dr. Lucho De León Color (U) LT. YELLOW Normal YELLOW [facility] Comment on above: Performed By: #### A 1C #### [facility] [address] [place] [address] Dr. Lucho MELGAR A micrscopic examination will be performed if indicated. Normal [facility] Comment on above: Performed By: #### A 1C #### [facility] [address] [place] [address] Dr. Lucho De León Glucose Ql (U) >1000 Abnormal NEGATIVE [facility] Comment on above: Performed By: #### A 1C #### [facility] [address] [place] [address] Dr. Lucho De León Hemoglobin Ql (U) Negative Normal NEGATIVE [facility] Comment on above: Performed By: #### A 1C #### [facility] [address] [place] [address] Dr. Lucho De León Ketones Ql (U) 15 mg/dl Abnormal NEGATIVE [facility] Comment on above: Performed By: #### A 1C #### [facility] [address] [place] [address] Dr. Lucho De León LEUKOCYTES Negative Normal NEGATIVE [facility] Comment on above: Performed By: #### A 1C #### [facility] [address] [place] [address] Dr. Lucho De León Nitrite Ql (U) Negative Normal NEGATIVE [facility] Comment on above: Performed By: #### A 1C #### [facility] [address] [place] [address] Dr. Lucho De León pH (U) 5.0 [pH] Normal 5-9 [facility] Comment on above: Performed By: #### A 1C #### [facility] [address] [place] [address] Dr. Lucho De León SPEC GRAVITY <=1.005 Abnormal 1.005-<=1.025 [facility] Comment on above: Performed By: #### A 1C #### [facility] [address] [place] [address] Dr. Lucho De León UA PROTEIN Negative Normal NEGATIVE/ TRACE [facility] Comment on above: Performed By: #### A 1C #### [facility] [address] [place] [address] Dr. Lucho De León UR MICRO IND NOT INDICATED Normal [facility] Comment on above: Performed By: #### A 1C #### [facility] [address] [place] [address] Dr. Lucho De León Urobilinogen Qn (U) 0.2 {Danny'U}/dL Normal 0.2 - 1. 0 [facility] Comment on above: Performed By: #### A 1C #### [facility] [address] [place] [address] Dr. Lucho De León LIPASEon 03-26-2022 Lipase [Catalytic activity/Vol] 69.0 U/L Critically low 73.0-393.0 [facility] Comment on above: Performed By: #### C BC #### [facility] [address] [place] [address] Dr. Lucho De León OCC BLD IMMUNO SCREENon 03-16 OCCULT BLOOD Positive Abnormal NEGATIVE [facility] Comment on above: Performed By: #### H GBHCT #### [facility] [address] [place] [address] Dr. Lucho De León POINT OF CARE GLUCOSEon 03-16 Glucose [Mass/Vol] 271 mg/dL Critically high 74-106 [facility] Comment on above: Performed By: #### B MP #### [facility] [address] [place] [address] Dr. Lucho De León PROF 14(COMP METB)on 022 Albumin [Mass/Vol] 2.7 g/dL Critically low 3.4-5.0 [facility] Comment on above: Performed By: #### C VDTBH #### [facility] [address] [place] [address] Dr. Lucho De León ALP [Catalytic activity/Vol] 53 U/L Normal 46-116 [facility] Comment on above: Performed By: #### C VDTBH #### [facility] [address] [place] [address] Dr. Lucho De León ALT [Catalytic activity/Vol] 18 U/L Normal 16-63 [facility] Comment on above: Performed By: #### C VDTBH #### [facility] [address] [place] [address] Dr. Lucho De León Anion gap [Moles/Vol] 18.7 mmol/L Normal [facility] Comment on above: Performed By: #### C VDTBH #### [facility] [address] [place] [address] Dr. Lucho De León AST [Catalytic activity/Vol] 14 U/L Critically low 15-37 [facility] Comment on above: Performed By: #### C VDTBH #### [facility] [address] [place] [address] Dr. Lucho De León Bilirubin [Mass/Vol] 0.2 mg/dL Normal 0.2-1.0 [facility] Comment on above: Performed By: #### C VDTBH #### [facility] [address] [place] [address] Dr. Lucho De León Chloride [Moles/Vol] 99 mmol/L Normal 98-107 [facility] Comment on above: Performed By: #### C VDTBH #### [facility] [address] [place] [address] Dr. Lucho De León CO2 [Moles/Vol] 18.3 mmol/L Critically low 21.0-32.0 [facility] Comment on above: Performed By: #### C VDTBH #### [facility] [address] [place] [address] Dr. Lucho De León Creatinine [Mass/Vol] 0.75 mg/dL Normal 0.70-1.30 [facility] Comment on above: Performed By: #### C VDTBH #### [facility] [address] [place] [address] Dr. Lucho De León Globulin (S) [Mass/Vol] 2.6 g/dL Normal [facility] Comment on above: Performed By: #### C VDTBH #### [facility] [address] [place] [address] Dr. Lucho De León Glucose [Mass/Vol] 323 mg/dL Critically high 74-106 [facility] Comment on above: Performed By: #### C VDTBH #### [facility] [address] [address] [address] Lucho De León Potassium [Moles/Vol] 5.0 mmol/L Normal 3.5-5.1 [facility] Comment on above: Performed By: #### C VDTBH #### [facility] [address] [place] [address] Dr. Lucho De León Protein [Mass/Vol] 5.3 g/dL Critically low 6.4-8.[address] [facility] Comment on above: Performed By: #### C VDTBH #### [facility] [address] [place] [address] Dr. Lucho De León Sodium [Moles/Vol] 131 mmol/L Critically low 136-[address] [facility] Comment on above: Performed By: #### C VDTBH #### [facility] [address] [place] [address] Dr. Lucho De León Urea nitrogen [Mass/Vol] 65.0 mg/dL Critically high 7.0-18.0 [facility] Comment on above: Performed By: #### C VDTBH #### [facility] [address] [place] [address] Dr. Lucho De León Urea nitrogen/Creatinine [Mass ratio] 86.7 mg/mg [facility] Comment on above: Performed By: #### C VDTBH #### [facility] Laboratory [address] [place] [address] Dr. Lucho De León Albumin [Mass/Vol] 3.0 g/dL Critically low 3.4-5.[address] [facility] Comment on above: Performed By: #### C BC #### [facility] [address] [place] [address] Dr. Lucho De León Albumin/Globulin [Mass ratio] 1.0 {ratio} Normal [facility] Comment on above: Performed By: #### C VDTBH #### [facility] [address] [address] [address] Lucho De León Performed By: #### C BC #### [facility] [address] [place] [address] Dr. Lucho De León ALP [Catalytic activity/Vol] 64 U/L Normal 46-116 [facility] Comment on above: Performed By: #### C BC #### [facility] [address] [address] [address] Lucho De León ALT [Catalytic activity/Vol] 20 U/L Normal 16-63 [facility] Comment on above: Performed By: #### C BC #### [facility] [address] [place] [address] Dr. Lucho De León Anion gap [Moles/Vol] 14.2 mmol/L Normal [facility] Comment on above: Performed By: #### C BC #### [facility] [address] [place] [address] Dr. Lucho De León AST [Catalytic activity/Vol] 11 U/L Critically low 15-37 [facility] Comment on above: Performed By: #### C BC #### [facility] [address] [place] [address] Dr. Lucho De León Bilirubin [Mass/Vol] 0.3 mg/dL Normal 0.2-1.0 [facility] Comment on above: Performed By: #### C BC #### [facility] [address] [place] [address] Dr. Lucho De León Calcium [Mass/Vol] 8.3 mg/dL Critically low 8.5-10.1 [facility] Comment on above: Performed By: #### C VDTBH #### [facility] [address] [place] [address] Dr. Lucho De León Performed By: #### C BC #### [facility] [address] [place] [address] Dr. Lucho De León Chloride [Moles/Vol] 102 mmol/L Normal 98-107 [facility] Comment on above: Performed By: #### C BC #### [facility] [address] [place] [address] Dr. Lucho De León CO2 [Moles/Vol] 23.4 mmol/L Normal 21.0-32.0 [facility] Comment on above: Performed By: #### C BC #### [facility] [address] [place] [address] Dr. Lucho De León Creatinine [Mass/Vol] 0.81 mg/dL Normal 0.70-1.30 [facility] Comment on above: Performed By: #### C BC #### [facility] [address] [place] [address] Dr. Lucho De León EGFR-AF SURINAMESE >60 Normal >=60 [facility] Comment on above: Performed By: #### C VDTBH #### [facility] [address] [place] [address] Dr. Lucho De León Performed By: #### C BC #### [facility] [address] [place] [address] Dr. Lucho De León EGFR-NON AF SURINAMESE >60 Normal >=60 [facility] Comment on above: Performed By: #### C VDTBH #### [facility] [address] [place] [address] Dr. Lucho De León Performed By: #### C BC #### [facility] [address] [place] [address] Dr. Lucho De León Globulin (S) [Mass/Vol] 3.0 g/dL Normal [facility] Comment on above: Performed By: #### C BC #### [facility] [address] [place] [address] Dr. Lucho De León Glucose [Mass/Vol] 261 mg/dL Critically high 74-106 [facility] Comment on above: Performed By: #### C BC #### [facility] [address] [place] [address] Dr. Lucho De León Potassium [Moles/Vol] 4.6 mmol/L Normal 3.5-5.1 [facility] Comment on above: Performed By: #### C BC #### [facility] [address] [place] [address] Dr. Lucho De León Protein [Mass/Vol] 6.0 g/dL Critically low 6.4-8.[address] [facility] Comment on above: Performed By: #### C BC #### [facility] [address] [place] [address] Dr. Lucho De León Sodium [Moles/Vol] 135 mmol/L Critically low 136-[address] [facility] Comment on above: Performed By: #### C BC #### [facility] [address] [place] [address] Dr. Lucho De León Urea nitrogen [Mass/Vol] 56.0 mg/dL Critically high 7.0-18.0 [facility] Comment on above: Performed By: #### C BC #### [facility] [address] [place] [address] Dr. Lucho De León Urea nitrogen/Creatinine [Mass ratio] 69.1 mg/mg Normal [facility] Comment on above: Performed By: #### C BC #### [facility] [address] [place] [address] Dr. Lucho De León PROTIMEon 03-26-2022 INR Coag (PPP) [Relative time] 0.99 {INR} Normal [facility] Comment on above: Performed By: #### M ALBR #### [facility] [address] [place] [address] Dr. Lucho De León INR GUIDELINES SEE BELOW Normal [facility] Comment on above: Result Comment: HANS RED INR: 2.0 - 3.0 CONDITIONS NOT LISTED BELOW 2.5 - 3.5 FOR PROSTHETIC HEART VALVE REPLACEMENT 2.5 - 3.5 RECURRENT THROMBOSIS Performed By: #### M ALBR #### [facility] [address] [place] [address] Dr. Lucho De León PT Coag (PPP) [Time] 10.7 s Normal 9.0-11.6 [facility] Comment on above: Performed By: #### M ALBR #### [facility] [address] [place] [address] Dr. Lucho De León PTTon 03-26-2022 aPTT Coag (Bld) [Time] 20.8 s Critically low 22.3-36.2 [facility] Comment on above: Performed By: #### M ALBR #### [facility] [address] [place] [address] Dr. Lucho De León XR ABD FLAT [...] ROSARIO BLANCO Date: 2022-03-26 05:15 Normal [facility] Coding Summaryon 11-08-2021 Coding Summary HTMLBase 64 RkcfybbeTLw8hVw+PGhl YWQ+KF5WBDQjE11woHDy wA5YL7zPSO0MZTRXORDC LL4FKD6gnFQ1AJaeM3Iu biAv GtfwmBIbHR32HUa9MOE0 vKgcDWomrM1atUPsQ2e2 UpEwBN39eO81RHqsMIPa UjJ4QhDgvxivgWZt Q9xeSlNeeXAaRda+PHRh YmxlIHdpZHRoPScxMDAl VsKfoZdkZC2mFo0yVZNz LWNvbGxhcHNlOiBj p2iiSCOqGFlhJG2eiXnv U4CktFO3KCCtn7o4Rq66 dHI+OSTrBRH0rGzaSWom m058EkArh7lxBUL1 wCYiLQyfSBC8F84ec5Z6 ZVZmVYHzGGC1rOR0rG1b eNgompvuF3CytXDgFwF6 JBW4gHLvdH5zcLhn fnobvE4tYrm+O30TYE9S MHXFZL4CRzc3F8XhCxwv dHI+LP11HGJhTO45qTUa rGQdc4gtqWn3AaKq JNFvSSP2rGiaAJwka0Pr RICkU39hjJLez6L6RKDn tWcclQZwKsCchAI5qQ2e USvegzjtm2dnbpai Jffac9bedu39qP03H69k EIwuMTEgPDS4QIXwCWDr aSiadm3vvZ5yDb2+IDxj b0ana6yxqHt1OlLc YGCzmyVsdRumZVM3j9Rs Hc19M3PfwAxzj4FiVpz4 ty20tNCtu8V7oWU2MFsl LXUnfQ1lUDvrLgF5 ONTtZlMauN58lGZxYFlj Wj8diXikrQxqRG3cRSQu qclsEKBrnZ3pIMJcxJPv tOieXK4rGRDezoin i372CoImDKE2JPJooKBk U4KqsY5jAbAsAPEhACJj P8GtnAEsWKbkT955KGac BkB5JQYcllWoW6Py MZKgxOimHwX8k3P1Ul5H i1AuuvssENX0ANkdRMOt YcO8JpGmCfI0Q5NrDna4 FPZyzYjlAM9lQ0Xw PLIopxhjooyosTB5SYZz DLEiyQ01hLAqMJzlGv3e o8I6g249MVVhWNHiaB06 Bw7msNbgUSQkvJVH cZ1rgzpjb2gbbztcMvYt RHDkSZh9XGf5JQDnoGxn GxVpDES3GnA2FHH9cPIc gJ5olPnqgeqbtX9i Oyc+B16nfN0fGPZ1JXZ4 ixwkVBGvlgFsMH09TD39 M9WlNydnyYQokZE+PGRp fcXprMzaQF2dVhCf y9odw8SnUQmdP0RsPVCm SFdxKlz6SEYhFTZ9tLA9 sM3kCSQeTKswm5I3gIY0 N3JvtpXlwo0hn1pc WDIrQWzkO92zeSOyd4X1 UCTgqSG8FTYkrEbzGdRi wJ41Rcw+ICCluMuju4El Mwcvn3pjo0wmaSz3 IjMwJSIgdmFsaWduPSJ0 c6YwAu43A82vOIuvESPu VGBgMEYyMJEetYrceo5e kV5nUi4+PGNvbCB3 vPY8oS8uWFUzBzG7BXlx X923FlGqgCFfNuavz6iq s7syzUa9BsNpGDOegyIj zYlkFUX4i1TvZj80 Y90qVFzhWZXjTADzXTPu UWHitOgirt8njY4uRl1+ VW9gk5tkrq72cN85mBN+ AWLdMHG1bMepKJzg QRKgoC8mIOuqVkT1VVJl SvJizA59zSJoPTwgGp3l dAzyoMgdHL7rSOMwswtk i919ZsQnh5suQYNi eCMlHYitPLK7K79rd3M8 ECLiFWYrVMY3xLQ3mI7v bGlnbjogbGVmdDsgdmVy yJpwRJgpCGtuR674 IHRvcDsnPlBhdGllbnQg RjKaTPa1S0AhAac9XPNn cUigGE9tcENzFYfuLd1c cEyxhWdsMT2eHHFq lsepd956VkFov0vuPXTg dRDtWQghWUC5A06ph4K7 FYDcODDrYUR5hZY3dC5p bGlnbjogbGVmdDsg djHapHejBIwsYJraJ260 IHRvcDsnPkJpcnRoIERh cWK6WC72AS20oZAbs9P7 wPG0T2GpKRIizkwm nxmmeSK4TLVnTDOfxE57 Jv4deNwaYf8sEMQySRN4 CLTtxJDjB6IgnW3uFpId NDWrAGZyP5ErvFCr KQfmV113FNjgEiY9XJRt uaJuQ3KiNZJhtQclQwB9 i7X1Pk5UI1N2IN49TB40 aMMyj6K3vND4F3Yi PVRapwenxzyaxPX5GBOu AHEumU15Po1scOviAo7w TSWvBEV1OGAazGEhW5Bs qS0xLvBrVFLtPPVh U6GkeLSvOPggN347EHur WuC4KKCwwpBfL8MyLTHm tQbmGeD9b3U1Kw2CPEc5 OY77AV76oZWcw2I9 tRM7Z2GwQDUqffjncwzy eUV5SBDyIJOjmN43Az5n sJzsRe5pOSCuFGH5JCUq hKAnB4TrrE8wDwCx NOFhNWHrZ4TkmPRiFAyf U166HBquTiW9CASjupTa T7ErETZleKnoVbV4y8U7 Hw5PWGJwJI65DIR0 bCK6JK20JK46D2SdCdjh dGFibGU+PHRhYmxlIHdp ZHRoPScxMDAlJyBzdHls GA3hQl0pUWIeCFGz kYjjdDFfLmSya5dgOSOy HHdjKF3gjAacC5ZrlQE9 IGCaf0h5Dp10A36wB0Bk dXA+WBZkgWD9bLW0 mZ1hBmBiQbZ8WSilB040 LkJjiANvCrtnz2sbg3ce hYv5ByA4TYRvvkYuwViu SPO1c3MnFr72D64r IHdpZHRoPSIxNSUiIHZh pXrrhh2usG4nGi3+PGNv sQR9mWC1aP9oEqWrJiJ1 MLbbB752XhYrxHKm Rjepr0bdl0xamIl5WcTi AZRrhzAvsMsrRIC4k6Nn Th40E3BaaDueh6PjQag9 zp84jSElt9W8aFD3 X7LrFLXwnrsjkAUcaJqx JZ8xEPLdstewWSRekT5l BOAbJ1i4QrHxAxX7NNqw N9ZnomH6WWHkvRIl IJysNTI2G19wo1W1JKNx XXIrZIP0cWC5eP6njRma bjogbGVmdDsgdmVydGlj XZctMAgiP868KHKv vKtdZZShzY8vSUXjpVRn uQkqSY5hEUTslzrqWbKF TklPTiwgVEVERFkgSjwv dGQ+WXPfTMR2nPvq JWcgOEVinG4kGSEtX8s3 PcFrSlD9ZCzgR2XcPQAl bfogKp83bN7kNjPzBrP8 CGqcI0VtxtF8WLLt fHPpSFnsMOR4J22uo7G5 ZHGlRUScRFF9hAN7qZ1w bGlnbjogbGVmdDsgdmVy sQtwQMyjMOmdZ251 EHPzpWrnZnX7JqTzPeM3 FYZ8G6XnEtr4UBOizUrr UM6xxXFrPNygGb4nsOcy gWuxFY0tIMFpkkbf IOFocE9kBMQbbVYzxYrx PZ1cDILhjlato098XqHp VWQ6CEByeTMfB3RsbG5e ZoYzFLGpGOFzB1Vr cWGoRSylA012UIlaDwL6 DJKpvvOrL5SwNEXhxJtd GyX1g9K3Kv45XHCIVPIy czwvdGQ+PHRkIHN0 pGewLAxqMQGwfJ7xNVAb Z3t0DdVdKaC0OCskY8Db XQUowbctGn71bZ9wLaEd TsG1YCysP8AccuT6 MADfoKUyHBelGNP1P08y b7L2XVXiBJPbVRV7lUZ0 bZ0mmDbftqrzyBNgsJgg dmVydGljYWwtYWxp N159XGLcbDhaJf4LUHZ1 Z5VoRoi4VZQhyDjbNK5q hUUzUDibVo9zgEousZtg TG3vIWWmclhaLYSp qP3fVZNkuMCpfYvzAW4u HPRhbizyj789KgFcTSV3 FVWthTNrS8MpuE2rTzSb YJMyQKOqZ9DhfPQj LNqpY024ZBmnKgN2JNQg ojCqD9BtQVMgjLilWjA7 m9J6Fe9UFLweuST+PC90 dk02T0TiPsgbOhb2 QZEiLYR7rHZ6gI3yCTPe JTwhb1W8tEU4I6WemxMl ne8gp8kvLDDfYNenU39l vCBiw6O3MSNixAC3 UATutTtnGgUhgP21Gti+ BDVsoKsct0KlKgirg6pe a7zxwSm3OuPpPGDspmIr dMhoNQL8k7OiOo76 J95wJFahWXZqQLClFQWw VYAvoZmisf1hpO6kSz8+ HEWuoMQ8fAN4oX2uJqMz TyC7OHobT283CaBy kHLaUnbbs6asr5uuaYi1 IjIwJSIgdmFsaWduPSJ0 k3DuWt61X7DhsKysu9Ej Ayq4ng70vTIzw0O2 mRU8V2OtLAIdpitiyCAl wFopKM7cHPPgpqhsZVRy xP5nMFBeE8w1DuAcTaQ2 GKvtP0LvxaX0SIJg pYAaUDKwgRDJwZ0rlzhh d9janxgnYpLaBMAeCQl7 ILq3YWWayWtgRgOrUBS6 WzN9CXA7cTNdsA4i eMfryrgiuG6sYcn+UGh5 p6tutIIkHU7yxWR5FZ90 WN39eWBvw9H1mTJ4D1Fd ZGRpbmctcmlnaHQ6 KFLhQTWdxU17Et6wuCox Hb2yLUPxRRE9HFPpqAOg H1QqdK2fUnAwKHQkRCZw U1VvxVMhQUiuZ751 QOnsClR8YJRmvmQoN9Av QCKgvXciUuS3y5Y2Pq9G DO99CA48EZ78oNDol1X2 tTP9G3PjDPEqygri ubrkwFJ3IKYdFOBenO24 Is1liFlbOs3pUWDlLWU2 LWOqtGRcS0JmrJ0mCtUp HWLvWXDkU6YqjHOv EPciL470ATozJrQ1IRQb ebHoE7IfWHMtnJywQzT5 v8W9Yy7CQf88HZ16BV25 wWWhy9O2qVS0T1Ih WBJicywhpdtzkNW5JXKr BNGdpL37Sk0czMdkPt6c RWJvXQB1SNPniAAtN7Or sU0aBeVlPCNhPJKn L0QetKFsFAirW397KFmf GyA1YEVgzlVaY0EeJWZk nFsgZuC9a9Y1Dq3XCPhp tjt2P9HrTtzauAZ+ QU97KXXmVT46xDIqoCKu f6dabTf4UcWxWSIhLXX7 uSudMImqm2FfUWSpA05o aEYgx5N8PTXnlMnv cHN (more content not included)... [facility] Provider Orderson 11-04-2021 Provider Orders [id number] [facility] Vital Signs Date Time Vital Sign Value Performing Clinician Facility 11-29-2023 15:28-0500 Body height 170.2 cm Tonya Dye DIRECTOR OF SURGERY Work Phone: [facility] 11-29-2023 15:28-0500 Body mass index (BMI) [Ratio] 28.54 kg/m2 Tonya Dye DIRECTOR OF SURGERY Work Phone: [facility] 11-29-2023 15:28-0500 Body temperature 97.11 [degF] Tonya Dye DIRECTOR OF SURGERY Work Phone: [facility] 11-29-2023 15:28-0500 Body weight 82.64 kg Tonya Dye DIRECTOR OF SURGERY Work Phone: [facility] 11-29-2023 15:28-0500 Diastolic blood pressure 80 mm[Hg] Tonya Pereraz DIRECTOR OF SURGERY Work Phone: [facility] 11-29-2023 15:28-0500 Heart rate 99 /min Tonyavasile Pereraz DIRECTOR OF SURGERY Work Phone: [facility] 11-29-2023 15:28-0500 Respiratory rate 20 /min Tonyavasile Pereraz DIRECTOR OF SURGERY Work Phone: [facility] 11-29-2023 15:28-0500 SaO2% (BldA) [Mass fraction] 97 % Tonya Dye DIRECTOR OF SURGERY Work Phone: [facility] 11-29-2023 15:28-0500 Systolic blood pressure 138 mm[Hg] Tonya Aminholz DIRECTOR OF SURGERY Work Phone: [facility] 08-30-2022 14:47-0500 Blood Pressure Location Bernadine CASANDRAL [facility] [place] 08-30-2022 14:47-0500 Diastolic blood pressure 82 mm[Hg] Bernadine NILL [facility] [place] 08-30-2022 14:47-0500 Heart rate 76 /min Bernadine NILL [facility] [place] 08-30-2022 14:47-0500 Respiratory rate 16 /min Bernadine NILL [facility] [place] 08-30-2022 14:47-0500 Systolic blood pressure 138 mm[Hg] Bernadine NILL [facility] [place] 08-19-2021 14:30-0400 Body height 170.18 cm Shen Luis Other [facility] Other 08-19-2021 14:30-0400 Body mass index (BMI) [Ratio] 31.04 kg/m2 Shen Olexa Other [facility] Other 08-19-2021 14:30-0400 Body weight 89.9 kg Shen Olexa Other [facility] Other 07-29-2021 14:30-0400 Body height 170.18 cm Shen Olexa Other [facility] Other 07-29-2021 14:30-0400 Body mass index (BMI) [Ratio] 31.32 kg/m2 Shen Olexa Other [facility] Other 07-29-2021 14:30-0400 Body weight 90.72 kg Shen Olexa Other [facility] Other Encounters Encounter Date Encounter Type Care Provider Facility Start: 06-04-2024 End: 06-04-2024 ambulatory TONYA AICHHOLZ Not Available Start: 04-29-2024 End: 04-29-2024 ambulatory [facility] Start: 04-04-2024 End: 04-04-2024 ambulatory TONYA AICHHOLZ Not Available Start: 03-29-2024 End: 03-29-2024 ambulatory [facility] Start: 03-14-2024 End: 03-14-2024 ambulatory TONYA AICHHOLZ Not Available Start: 02-27-2024 End: 02-27-2024 ambulatory TONYA AICHHOLZ Not Available Start: 02-08-2024 End: 02-08-2024 ambulatory [facility] Start: 01-16-2024 End: 01-16-2024 ambulatory TONYA AICHHOLZ Not Available Start: 01-15-2024 End: 01-15-2024 ambulatory LYNN VALLECILLO Not Available Start: 01-03-2024 End: 01-03-2024 ambulatory RANULFO BAGLEY Not Available Start: 12-27-2023 End: 12-27-2023 ambulatory Ranulfo Bagley Facility:[facility] Start: 12-26-2023 End: 12-26-2023 ambulatory RANULFO BAGLEY Not Available Start: 12-20-2023 End: 12-20-2023 ambulatory Ranulfo Bagley Facility:[facility] Start: 12-18-2023 End: 12-18-2023 ambulatory LYNN VALLECILLO Not Available Start: 11-29-2023 End: 11-29-2023 Office outpatient visit 25 minutes Tonya Dye DIRECTOR OF SURGERY Work Phone: [facility] Comment on above: Primary hypertension (CMS/HCC) (Primary Dx); BMI 29.0-29.9,adult; Type 2 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, without long-term current use of insulin, unspecified laterality, unspecified retinopathy severity (CMS/HCC); Type 2 diabetes mellitus with diabetic neuropathy, without long-term current use of insulin ([facility]); Sebaceous cyst; 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; Ageusia; Peripheral vascular disease, unspecified (I73.9) Start: 11-29-2023 End: 11-29-2023 ambulatory TONYA DYE Not Available Start: 11-29-2023 Bamboo flowsheet Tonya Dye DIRECTOR OF SURGERY Work Phone: [facility] Start: 11-29-2023 Bamboo flowsheet Tonya Dye DIRECTOR OF SURGERY Work Phone: [facility] Start: 10-31-2023 Preprocedural examination done Tonya Dye DIRECTOR OF SURGERY Work Phone: [facility] Start: 10-31-2023 End: 10-31-2023 ambulatory RANULFO BAGLEY Not Available Start: 10-24-2023 Office outpatient vi sit 15 minutes [facility] Start: 10-24-2023 End: 10-24-2023 ambulatory Tonya Dye Work Phone: [facility] Work Phone: Start: 10-24-2023 End: 10-24-2023 Patient encounter procedure Tonya Dye Work Phone: [facility] Start: 09-15-2023 End: 09-15-2023 ambulatory KRISHNA VALDES Not Available Start: 01-31-2023 End: 02-01-2023 ambulatory OLI DYE Facility:[facility] Start: 01-27-2023 End: 01-28-2023 ambulatory OLI CAMARGO HARDIK Facility:[facility] Start: 12-21-2022 End: 12-22-[address] OMID RICKS Facility:[facility] Start: 11-20-2022 Encounter for other preprocedural examination MR KRISHNA VALDES . [facility] Start: 11-18-2022 End: 11-19-2022 ambulatory MR KRISHNA VALDES . Facility:[facility] Start: 11-18-2022 End: 11-19-2022 Encounter for other preprocedural examination MR KRISHNA VALDES . Facility:[facility] Start: 10-25-2022 End: 10-26-2022 ambulatory Bernadine R CASANDRAL Facility:[facility] Start: 10-25-2022 End: 10-25-2022 Patient encounter procedure Bernadine R NILL General Surgery [facility] Start: 10-12-2022 End: 10-13-2022 ambulatory Bernadine R NILL Facility:CD:[id number] Start: 10-07-2022 ambulatory OLI DYE Facil ity:[facility] Start: 09-22-2022 End: 09-23-2022 ambulatory OLI AMINYULIANAMelva Facility:[facility] Start: 08-30-2022 End: 08-31-2022 ambulatory Bernadine R NILL Facility:[facility] Start: 08-30-2022 End: 08-30-2022 Patient encounter procedure Bernadine R NILL General Surgery [facility] Start: 08-03-2022 ambulatory Bernadine PLATT Facility :[facility] Start: 06-21-2022 End: 06-22-[address] OMID RICKS Facility:[facility] Start: 06-14-2022 End: 06-15-2022 ambulatory OLI DYE Facility:[facility] Start: 04-27-2022 End: 04-28-[address] BINDU WAGGONER Facility:[facility] Start: 04-14-2022 End: 04-15-2022 ambulatory OLI DYE Facility:[facility] Start: 04-06-2022 End: 04-07-2022 ambulatory OLI AMINYULIANAMelva Facility:[facility] Start: 03-27-2022 End: 03-30-2022 Evaluation and management of inpatient DR IRENE GONZALEZ Facility:[facility] Start: 03-26-2022 End: 03-26-[address] IRENE GONZALEZ Facility:[facility] Start: 12-16-2021 End: 12-16-2021 ambulatory Shen Olexa Other [facility] Other Start: 12-16-2021 Telephone encounter Shen Olexa [facility] Start: 12-14-2021 End: 12-14-2021 ambulatory Shen Olexa Other [facility] Other Start: 12-14-2021 Office outpatient vi sit 15 minutes Shen Olexa [facility] [place] Start: 08-19-2021 End: 08-19-2021 ambulatory Shen Olexa Other [facility] Other Start: 08-19-2021 Office outpatient vi sit 10 minutes Shen Olexa [facility] Start: 08-11-2021 Telephone encounter Krishna Bach rg [facility] Start: 07-29-2021 Office outpatient ne w 30 minutes Shen Olexa [facility] Procedures Date Procedure Procedure Detail Performing Clinician Start: 03-29-2024 Follow-up visit Follow-up LEAH SALGADO Start: 10-24-2023 Plain X-ray of bilat eral elbows Tonya Dye Work Phone: Start: 01-27-2023 PSA screening OLI DYE Comment on above: Performed By: #### B MP #### [facility] [address] [address] [address] Lucho De León Start: 10-12-2022 Excisional biopsy Blair PLATT Start: 03-28-2022 Inspection of Lower Intestinal Tract, Via Natural or Artificial Opening Endoscopic CAKE WINDER TONYA NEPTALITuckerBRETT Start: 03-28-2022 Inspection of Upper Intestinal Tract, Via Natural or Artificial Opening Endoscopic CAKE WINDER TONYA HARDIK Start: 03-26-2022 Transfusion of Nonau tologous Red Blood Cells into Peripheral Vein, Percutaneous Approach CAKE WINDER TONYA HARDIK Start: 11-10-2021 Endarterectomy and angioplasty of common femoral artery Bernadine PLATT Start: 03-09-2021 Angioplasty of super ficial femoral artery Bernadine PLATT Start: 10-16-2016 Colonoscopy Tonya myers NP Work Phone: Repair of musculoten dinous cuff of shoulder Bernadine PLATT Plan of Treatment Date Care Activity Detail Author Start: 10-16-2026 Screening for malign ant neoplasm of colon [facility] Start: 11-22-2024 Glaucoma screening Diabetes: R etinopathy Screening [facility] Start: 02-27-2024 End: 02-27-2024 Patient encounter procedure 02/27/2024 3:00 PM EDT Office Visit [facility] [address] [place] [phone] Tonya Dye, DIRECTOR OF SURGERY [address] [place] [phone] [facility] Start: 01-28-2024 Urine screening for protein Diabetes: Urine Protein Screening [facility] Start: 11-29-2023 End: 11-29-2023 Patient encounter procedure 11/29/2023 3:20 PM EST Office Visit [facility] [address] [place] [id number] Tonya Dye, DIRECTOR OF SURGERY [address] [place] [phone] Arrived [facility] Comment on above: Arrived Start: 11-29-2023 End: 11-29-2024 CT Maxillofacial region WO and W contrast IV CT SINUS WO IV CONTRAST Imaging Routine 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 [facility] Expected: 11/29/2023 (Approximate), Expires: 11/29/2024 [facility] Comment on above: Expected: 11/29/2023 (Approximate), Expires: 11/29/2024 Start: 11-29-2023 Hemoglobin A1c measurement Diabetes: Hemoglobin A1C [facility] Start: 11-29-2023 End: 11-29-2024 Hemoglobin A1c/Hemoglobin.total in Blood Hemoglobin A1c Lab Routine Type 2 diabetes mellitus with diabetic neuropathy, without long-term current use of insulin ([facility]) Expected: 11/29/2023 (Approximate), Expires: 11/29/2024 [facility] Work Phone: Comment on above: Expected: 11/29/2023 (Approximate), Expires: 11/29/2024 Start: 04-15-2023 Glaucoma screening Diabetes: R etinopathy Screening [facility] Start: 1950 Medicare Annual Well ness (AWV) Medicare Annual Wellness (AWV) [facility] Start: 1950 Screening for malign ant neoplasm of colon [facility] Immunizations Immunization Date Immunization Notes Care Provider Fa [facility] 08-03-2023 Influenza, High-dose Seasonal, Quadrivalent, Preservative Free Tonya Aichholz DIRECTOR OF SURGERY Work Phone: [facility] 12-17-2022 zoster vaccine recombinant Tonya Aichholz DIRECTOR OF SURGERY Work Phone: [facility] 07-27-2022 influenza, injectabl e, quadrivalent, preservative free Tonya Aichholz DIRECTOR OF SURGERY Work Phone: [facility] 07-29-2021 Kenalog -40 mg Shen Olexa Other [facility] Other 12-24-2020 COVID-19 [id number].COV2.S (Venkatesh) Tonya Aichholz Work Phone: [facility] 09-07-2020 pneumococcal polysaccharide vaccine, 23 valent Shen Olexa Other [facility] Other 06-30-2020 influenza, injectabl e, quadrivalent, preservative free Tonya Aichholz DIRECTOR OF SURGERY Work Phone: [facility] 06-30-2020 influenza, seasonal, injectable Shen Olexa Other [facility] Other 08-07-2019 pneumococcal conjuga te vaccine, 13 valent Shen Olexa Other [facility] Other 07-25-2019 influenza, high dose seasonal, preservative-free Tonya Aichholz DIRECTOR OF SURGERY Work Phone: [facility] 08-26-2017 zoster vaccine, live Tonya chholz DIRECTOR OF SURGERY Work Phone: [facility] 08-01-2003 tetanus toxoid, adsorbed Tonya Aichholz DIRECTOR OF SURGERY Work Phone: [facility] Payers Date Payer Category Payer Self-pay [id number] 2017 Unknown GENERIC OTHER GE NERIC OTHER [id number] 2017-Present [phone] [place] [phone] 2016 Medicare MEDICARE MEDICAR E PART B [id number] 2016-[place] [place] [address] Medicare [id number] 1959 Medicare [id number] [id number] 1959 Unknown [id number] 2.16.840.1.685501.19 1951 Unknown [id number] 2.16.840.1.508113.3.579.2.72 7 1951 Unknown [id number] 2.16.840.1.990850.3.579.2.72 7 1951 Unknown [id number] 2.16.840.1.920545.3.579.2.72 7 1951 Unknown [id number] 2.16.840.1.195627.3.579.2.72 7 1951 Unknown [id number] 2.16.840.1.559001.3.579.2.59 3 1951 Unknown [id number] 2.16.840.1.642720.3.579.2.59 3 1951 Unknown [id number] 2.16.840.1.482970.3.579.2.59 3 1951 Unknown [id number] 2.16.840.1.568251.3.579.2.59 3 1951 Unknown [id number] 2.16.840.1.900443.3.579.2.59 3 1951 Unknown [id number] 2.16.840.1.552884.3.579.2.59 3 1951 Unknown [id number] 2.16.840.1.668127.3.579.2.59 3 1951 Unknown [id number] 2.16.840.1.991697.3.579.2.59 3 1951 Unknown [id number] 2.16.840.1.878072.3.579.2.59 3 1951 Unknown [id number] 2.16.840.1.985630.3.579.2.59 3 1951 Unknown [id number] 2.16.840.1.542731.3.579.2.59 3 1951 Unknown [id number] 2.16.840.1.854370.3.579.2.59 3 1950 Unknown [id number] 2.16.840.1.788540.3.579.2.59 3 1950 Unknown [id number] 2.16.840.1.578888.3.579.2.59 3 1950 Unknown [id number] 2.16.840.1.715617.3.579.2.12 86 1950 Unknown [id number] 2.16.840.1.068775.3.579.2.12 86 1951 Unknown [id number] 2.16.840.1.769123.3.579.2.12 86 1951 Unknown [id number] 2.16.840.1.473678.3.579.2.12 59 1951 Unknown [id number] 2.16.840.1.511186.3.579.2.12 59 1951 Unknown [id number] 2.16.840.1.055060.3.579.2.12 59 1951 Unknown [id number] 2.16.840.1.005105.3.579.2.12 59 1951 Unknown [id number] 2.16.840.1.017763.3.579.2.12 59 1951 Unknown [id number] 2.16.840.1.106855.3.579.2.12 59 1951 Unknown [id number] 2.16.840.1.189544.3.579.2.12 59 1951 Unknown [id number] 2.16.840.1.121316.3.579.2.12 59 1951 Unknown [id number] 2.16.840.1.118201.3.579.2.12 59 1951 Unknown [id number] 2.16.840.1.822338.3.579.2.12 59 1951 Unknown [id number] 2.16.840.1.018087.3.579.2.12 59 1951 Unknown [id number] 2.16.840.1.764127.3.579.2.12 59 1951 Unknown [id number] 2.16.840.1.186980.3.579.2.12 59 1951 Unknown [id number] 2.16.840.1.209357.3.579.2.12 59 1951 Unknown [id number] 2.16.840.1.598779.3.579.2.12 59 Unknown [facility] [id number] Unknown HCAP/HFA/FAP Active [id number] Unknown [id number] 2.16.840.1.011114.3.579.2.53 1 Unknown [id number] 2.16.840.1.330688.3.579.2.53 1 Unknown [id number] 2.16.840.1.099818.3.579.2.53 1 Social History Date Type Detail Facility Start: 10-31-2023 End: 11-29-2023 Sex Assigned At [facility] Start: 08-30-2022 Tobacco smoking status Heavy t obacco smoker (finding) [facility] Tobacco smoking status Never [facility] Start[facility] Start: 1950 Sex Assigned At Male F [facility] Start: 10-30-2023 [facility] History of tobacco use Cigarette Smoker [facility] Start: 10-30-2023 End: 11-29-2023 Cigarettes smoked current (pack per day) - Reported 1 [facility] Start: 10-30-2023 Tobacco use and exposure Smokeless tobacco non-user [facility] Start: 11-29-2023 Alcohol intake Lifetime non-d heath (finding) [facility] Start: 1950 Sex Assigned At Not on file N [facility] Medical Equipment Procedure Code Equipment Code Equipment Origin al Text Equipment Identifier Dates NovoFine 32G X 6 MM Start : 09-24-2020 Multiple periphe ral artery stent, bare-metal [id number] Start: 03-09-2021 Functional Status Date Assessment Result Facility 08-30-2022 Functional Status N/A General Benjamin makayla Gallagher Clinical Notes 03-09-2021 to 11-29-2023 Tonya Dye NP - 11/29/2023 4:38 PM ESTTonya Dye, SHIVAM - 11/29/2023 4:36 PM ESTTonya Dye, SHIVAM - 11/29/2023 4:34 PM ESTLisa Hardik, DIRECTOR OF SURGERY - 11/29/2023 4:34 PM EST Note Date [...] Uncontrolled type 2 diabetes mellitus with hyperglycemia ([facility]) Check blood sugars daily, notify [...] being taken. He does not see a technical illustrations map inker.Eye exam is current. Hypertension This is a [...] radiculopathy 10/31/2023 Mass of both adrenal glands ([facility]) Neck pain Olecranon bursitis of left elbow Olecranon bursitis of right elbow PAD (peripheral artery disease) ([facility]) Peripheral neuropathy Popliteal cyst, right Psoriasis ([facility]) PVD (peripheral vascular disease) ([facility]) Retinopathy, diabetic, bilateral ([facility]) Ringing in ears, right Seasonal allergies Sebaceous cyst Tobacco user Uncontrolled type 2 diabetes mellitus with hyperglycemia ([facility]) Vitamin B12 deficiency Past Surgical History: Procedure [...] SINUS WO IV CONTRAST BMI 29.0-29.9,adult Diabetes ([facility]) Relevant Orders Hemoglobin A1c HTN (hypertension) ([facility]) - Primary No changes needed in medication regimine Sebaceous cyst Still waiting on approval from [facility] to stop plavix for proceedure [facility] Relevant Orders CT SINUS WO IV CONTRAST documented in this encounter [facility] 10-24-2023 Evaluation note Encounter [...] Pain in right elbow (ICD-10 - M25.521) [facility] Other 12-29-2022 Hospital Discharge instructions Follow Up Care 10/13/2022 10:40:40 With:MANJIT WILKINS, Bernadine Pinzon, JULIA Address: [address] [place], [place] [id number]- When: only if needed General Surgery [facility] [phone] NoteOPERATIVE NOTE OPERATION DATE: 10/12/2022 PREOPERATIVE DIAGNOSIS: [...] area in good condition. CC: Tonya Dye, [facility]11-20-2022 NoteChief Complaint consultation for sebaceous [...] plan excisional biopsy under local anesthesia at [facility] once inflammation has decreased; approximately4 weeks; [...] Cipro (Itching) Victoza (Itchin (more content not included)...[facility]:Result Comment: Electronically Signed By: MANJIT WILKINS, Bernadine Arndt.julius\Date and Time Signed: 09/04/22 11:08 [id number] Evaluation note* Encounter Date Diagnosis Assessment Notes [...] of right lower extremity (ICD-10 - I82.491) [facility] Other 11-04-2021 Evaluation note* Encounter Date Diagnosis Assessment Notes Treatment Notes Treatment Clinical Notes Aug, Arthritis of right knee (ICD-10 - M17.11) Patient is doing well at this time. He will continue daily strengthening exercises and progress activity as tolerated [facility] Other 10-14-2021 Evaluation note* Encounter Date Diagnosis [...] MRI for further evaluation for meniscal tear. [facility] Other 05-25-2021 History general Narrative - Reported* Type Description Date Medical History type II diabetes Medical History HTN Medical History psoriasis Surgical History rotator cuff tear repair 011 Surgical History right leg angioplasty 03/09/21 Hospitalization History see surgical [facility] Other 05-25-2021 History general Narrative - Reported* Type Description Date Medical History type II diabetes Medical History HTN Medical History psoriasis Medical History DVT Surgical History rotator cuff tear repair 011 Surgical History right leg angioplasty 03/09/21 Hospitalization History see [facility] Other Evaluation + Plan note No data available for this section General [facility] Evaluation noteNo InformationNort [email or web address] Other Evaluation noteNo assessment information available [facility] Work Phone: Evaluation note* Diagnosis Primary hypertension [...] data available for this section [facility] [place] Progress note No data available for this section [facility] [place] Summary Purpose Family History No Family History [...] Referral Specialty Diagnoses / Procedures Referred By Contada t Referred To Contact Diagnoses 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 [facility] Procedures CT SINUS WO IV CONTRAST Tonya Dye, SHIVAM [address] [place] [address] Referral ID Status Reason Start Date Expiration Date V isits Requested Visits Authorized [id number] Pending Review 11/29/2023 05/27/2024 1 1 Additional Source Comments (unrecognized sect ion and content) No Status Records FoundNo Status Records FoundNo Status Records FoundNo Status Records FoundNo Status Records FoundNo Status Records FoundNo Status Records FoundNo Status Records Found INFORMATION SOURCE (unrecogn ized section and content) DATE CREATED AUTHOR 11/08/2021 [facility] DATE CREATED AUTHOR AUTHOR'S ORGANIZ ATION 10/26/2022 [facility] DATE CREATED AUTHOR AUTHOR'S ORGANIZ ATION 02/05/[address] [facility] DATE CREATED AUTHOR AUTHOR'S ORGANIZ ATION 01/05/2024 [facility] DATE CREATED AUTHOR AUTHOR'S ORGANIZ ATION 02/09/2024 [facility] DATE CREATED AUTHOR AUTHOR'S ORGANIZ ATION 03/31/2024 [facility] DATE CREATED AUTHOR AUTHOR'S ORGANIZ ATION 05/03/2024 [facility] DATE CREATED AUTHOR AUTHOR'S ORGANIZ ATION 06/06/2024 [facility] d[facility] Specialists EPIC REASON FOR VISIT (unrecogniz ed section and content) Right Knee PainClinicalReche ck Right KneeNo InformationRight Knee PainBilateral Elbow Pain Patient Care team informatio n (unrecognized section and content) Team Status: Active Member Role Status Dates Tonya J Neptalirogelio Primary Care Provider Active Team Status: Inactive Member Role Status Dates Tonya Gundersonrogelio Primary Care Provider Active Shen Luis MD Attending Provider Active [employer] Relationship Specialty Start Date End Date Mumtaz Jensen MD [address] [place] [phone] PCP - General Family Medicine 11/28/23 Tonya Dye NP [address] [place] [phone] Referring Physician Nurse Practitioner 03/09/23 [employer] Engineer Relationship Specialty Start Date End Date Mumtaz Jensen MD [address] [place] [phone] PCP - General Family Medicine 11/28/23 Tonya Dye NP [address] [place] [phone] Referring Physician Nurse Practitioner 03/09/23 Goals (unrecognized [...] BE BASED ON THE PRIMARY CLINICAL RECORDS. [facility]. provides no warranty or guarantee of the accuracy or completeness of information in this document.
[2024-06-24 13:28] LABS: Anion Gap 14.6; BUN Creatinine Ratio 26.4; Calcium 9.4 mg/dL (8.5-10.1); Carbon Dioxide 24.8 mmol/L (21.0-32.0); Chloride 102 mmol/L (98-107); Estimated GFR (African America >60 (>=60); Estimated GFR (Non-African Ame >60 (>=60); Glucose 128 mg/dL (74-106); Potassium 4.4 mmol/L (3.5-5.1); Sodium 137 mmol/L (136-145)
[2024-06-24 13:33] LABS: Estimated Average Glucose 177 mg/dL; Glycohemoglobin A1C 7.8 % (4.5-6.2)
== END 2024-06-24 12:25 | disposition home or self-care (01) ==
LOC: LAB 12:26
PROVIDERS: PCP Nurse Practitioner; Visit Provider Nurse Practitioner
DX: I10 Essential (primary) hypertension (principal); E11.51 Type 2 diabetes mellitus with diabetic peripheral angiopathy without gangrene
CPT/HCPCS: 36415; 80048; 83036

== ENCOUNTER 2024-07-03 16:37 | Emergency (ER) | payer MEDICARE, OTHER, SELFPAY ==
[2024-07-03 17:05] VITALS: BP 145/91; PULSE 76; TEMP 37; O2SAT 97; BMI 28.2
--- NOTE | 2024-07-03 17:11 | ECG_ITS ---
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
--- OUTSIDE RECORDS SUMMARY | 2024-07-03 17:30 | XMS_ITS | CCD ---
Author Organization [facility] Care Team Providers Care Textile Artist Name Role Phone Shen Luis Unavailable Krishna Ocasio Unavailable TONYA DYE Primary Care Physician Bernadine PLATT Attending Unavailable TONYA DYE Referring Unavailabl Bernadine Mehta Attending Unavailable TONYA DYE Referring Unavailabl e Bernadine PLATT Attending Unavailable Bernadine PLATT Attending Unavailable AICHHOLZ, DYE AND CHEMICAL COORDINATOR TONYA Consulting Unavailable AICHHOLZ, DYE AND CHEMICAL COORDINATOR TONYA Primary Care Unavailable AICHHOLZ, DYE AND CHEMICAL COORDINATOR TONYA Attending Unavailable AICHHOLZ, DYE AND CHEMICAL COORDINATOR TONYA Admitting Unavailable AICHHOLZ, DYE AND CHEMICAL COORDINATOR TONYA Consulting Unavailable AICHHOLZ, DYE AND CHEMICAL COORDINATOR TONYA Primary Care Unavailable AICHHOLZ, DYE AND CHEMICAL COORDINATOR TONYA Attending Unavailable AICHHOLZ, DYE AND CHEMICAL COORDINATOR TONYA Admitting Unavailable PRIETO, DR BHAVANA Pinzon Consulting Unavailable ABBAS, DR ANNE Consulting Unavailable AICHHOLZ, DYE AND CHEMICAL COORDINATOR TONYA Primary Care Unavailable ABBAS, DR ANNE Attending Unavailable MILLICENT, DR ANNE Admitting Unavailable PRIETO, DR BHAVANA Pinzon Consulting Unavailable VALDES ., MR KRISHNA Consulting Unavailable AICHHOLZ, DYE AND CHEMICAL COORDINATOR TONYA Primary Care Unavailable VALDES ., MR KRISHNA Attending Unavailable VALDES ., MR KRISHNA Admitting Unavailable AICHHOLZ, DYE AND CHEMICAL COORDINATOR TONYA Consulting Unavailable AICHHOLZ, DYE AND CHEMICAL COORDINATOR TONYA Primary Care Unavailable AICHHOLZ, DYE AND CHEMICAL COORDINATOR TONYA Attending Unavailable AICHHOLZ, DYE AND CHEMICAL COORDINATOR TONYA Admitting Unavailable ZIMARGARITO, DR BHAVANA Pinzon Consulting Unavailable DR IRENE GONZALEZ Procedure Practitioner Unavaila DR IRENE Yang Consulting Unavailable SHAIKH Tucker PUENTES Attending Unavailable SHAIKH Tucker PUENTES Admitting Unavailable AICHHOLZ, DYE AND CHEMICAL COORDINATOR TONYA Primary Care Unavailable NISHANTILLIS ., DR BERNADINE Pink Consulting Unavaila ble GRILLIS ., DR BERNADINE Pink Procedure Practitioner U IAN Caputo Consulting Unavailable SHAIKH Tucker PUENTES Consulting Unavailable SID KWONG Consulting Unavailable BHAVANA MCCANN Consulting Unavailable NILL ., DR COLINDRES Consulting Unavailable AICHHOLZ, DYE AND CHEMICAL COORDINATOR TONYA Primary Care Unavailable NILL ., DR COLINDRES Attending Unavailable NILL ., DR COLINDRES Admitting Unavailable MEJIA JOINER Consulting Unavailable AICHHOLZ, DYE AND CHEMICAL COORDINATOR TONYA Primary Care Unavailable NILL ., DR COLINDRES Attending Unavailable NILL ., DR COLINDRES Admitting Unavailable CARLOS, DR IRENE Pinzon Consulting Unavailable GONZALEZ, DR IRENE Pinzon Attending Unavailable GONZALEZ, DR IRENE Pinzon Admitting Unavailable AICHHOLZ, DYE AND CHEMICAL COORDINATOR TONYA Primary Care Unavailable ROSARIO BLANCO Consulting Unavailable AICHHOLZ, DYE AND CHEMICAL COORDINATOR TONYA Consulting Unavailable AICHHOLZ, DYE AND CHEMICAL COORDINATOR TONYA Primary Care Unavailable AICHHOLZ, DYE AND CHEMICAL COORDINATOR TONYA Attending Unavailable AICHHOLZ, DYE AND CHEMICAL COORDINATOR TONYA Admitting Unavailable AICHHOLZ, DYE AND CHEMICAL COORDINATOR TONYA Consulting Unavailable AICHHOLZ, DYE AND CHEMICAL COORDINATOR TONYA Primary Care Unavailable AICHHOLZ, DYE AND CHEMICAL COORDINATOR TONYA Attending Unavailable AICHHOLZ, DYE AND CHEMICAL COORDINATOR TONYA Admitting Unavailable AICHHOLZ, DYE AND CHEMICAL COORDINATOR TONYA Consulting Unavailable AICHHOLZ, DYE AND CHEMICAL COORDINATOR OTNYA Primary Care Unavailable AICHHOLZ, DYE AND CHEMICAL COORDINATOR TONYA Attending Unavailable AICHHOLZ, DYE AND CHEMICAL COORDINATOR TONYA Admitting Unavailable ABBAS, DR ANNE Consulting Unavailable AICHHOLZ, DYE AND CHEMICAL COORDINATOR TONYA Primary Care Unavailable ABBAS, DR ANNE Attending Unavailable MILLICENT, DR ANNE Admitting Unavailable ROSALINE, DR BINDU Brown Consulting Unavailable AICHHOLZ, DYE AND CHEMICAL COORDINATOR TONYA Primary Care Unavailable AICHHOLZ, DYE AND CHEMICAL COORDINATOR TONYA Attending Unavailable AICHHOLZ, DYE AND CHEMICAL COORDINATOR TONYA Admitting Unavailable AICHHOLZ, DYE AND CHEMICAL COORDINATOR TONYA Consulting Unavailable Aichholz, Tonya J Primary Care Provider MD Shen Luis Attending Provider Aichholz POLITICAL ANALYST, Tonya Unavailable Mumtaz Jensen MD Primary Care [...] Allergy 03-14-20 Itching (finding), Unknown [facility] (12 sources) liraglutide; Translations: [liraglutide] Drug Allergy 11-07-19 Itching (finding) General Surgery Aileen (4 sources) liraglutide; Translations: [Victoza] Drug Allergy 03-26-20 [facility] Repository (7 sources) Penicillin; Translations: [penicillin] Drug Allergy Itching (finding) General Surgery [place] (5 sources) Penicillin V Drug Allergy Unknown [employer] Other (8 sources) Pollen Propensity to adverse reactions Unknown [employer] Other (7 sources) Cefaclor; Translations: [cefaclor] Drug Allergy 09-19-20 Itching (finding) General Surgery [facility] (2 sources) Ciprofloxacin; Translations: [Cipro] Drug Allergy 04-30-20 [facility] Repository (1 source) Cefaclor Drug Allergy [facility] Repository (1 source) dulaglutide Drug Allergy 03-26-20 [facility] Repository (1 source) insulin aspart, human Drug Allergy 03-27-20 22 [facility] Repository (1 source) Penicillin Drug Allergy 03-26-20 [facility] Repository (4 sources) Penicillins; Translations: [Penicillins] Allergy to substance 11-07-19 18 Itching [facility] (5 sources) dulaglutide; Translations: [DULAGLUTIDE] Drug Allergy 11-05-19 22 Unknown [facility] (3 sources) liraglutide Drug Allergy 03-09-20 23 Unknown [facility] (3 sources) Penicillin G Drug Allergy 03-09-20 Unknown [facility] (1 source) Cefaclor Drug Allergy 12-27-19 [facility] Repository (1 source) Ciprofloxacin Drug Allergy 12-27-19 [facility] Repository (1 source) dulaglutide Drug Allergy 12-27-19 [facility] Repository (1 source) liraglutide Drug Allergy 12-27-19 [facility] Repository (1 source) Pollen Drug allergy (disorder) 12-27-19 [facility] Repository Medications Current Medications Medication Drug [...] take 10 mg [facility] Farxiga 10 MG Take 10 mg by mouth in the morning. 0 Active ferrous sulfate 325 mg delayed release oral tablet (12 sources) Start: 08-24-2022 take 1 tablet by mouth twice daily ferrous sulfate 325 mg oral enteric coated tablet 325 mg = 1 tab(s), Oral, BID, Refills(s) 0 Start Date: 08/24/22 Status: [facility] ferr[facility] 325 (65 Fe) MG [...] 08, 2021 11:00pm take 1 capsule by [facility] every eight hours Gabapentin 300 MG 1 capsule Orally three times a day for 90 days Active glipiZIDE 10 mg oral tablet (10 sources) Sulfonylurea Start: 03-09-2021 take 10 mg by mouth once daily Glipizide Active 10 MG PO Daily March 08, 2021 11:00pm take 1 tablet by [facility] twice daily 30 minutes before lunch [...] Active Start: 03-09-2021 take 1 capsule by [facility] once daily Flomax 0.4 mg Cap [...] disease (1 source) Atherosclerotic heart disease of [place] coronary artery without angina pectoris; Translations: [Atherosclerotic heart disease of [place] coronary artery without angina pectoris] Onset: 4 [...] Peripheral vascular disease, unspecified; Translations: [Atherosclerosis of [place] arteries of extremities with rest pain, bilateral [...] 04-04-2022 Episodic Other aftercare (1 source) senior living (current) use of aspirin; Translations: [ASSISTED CURRENT USE OF ASPIRIN] Onset: 10-20-2022 Episodic Other aftercare (1 source) Other long term care social worker (current) drug therapy; Translations: [OTH ABATTOIR SUPERVISOR CURRENT DRUG THERAPY] Onset: 10-20-2022 Episodic Other aftercare (1 source) senior living (current) use of 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 latelets; Translations: [ASSISTED ANTITHROMBOT/ANTIPLAT LETS] Onset: 10-20-2022 Episodic Other aftercare (1 source) senior living (current) use of oral hypoglycemic drugs; Translations: [ABATTOIR SUPERVISOR USE ORAL HYPOGLYCEMIC DX] Onset: 10-20-2022 Episodic [...] 0 12-27-2023 Glucose [Mass/Vol] 139 mg/dL Normal [facility] Comment on above: Result Comment: [facility] Glucose Reference Range is dependent on time and content of last meal. Glucose of more than 200 mg/dL in a nonstressed, ambulatory subject supports the diagnosis of Diabetes Mellitus. PERFORMED BY: [facility] [place] [address] PATHOLOGIST WIRELESS FIELD TECHNICIAN ANGELES PAUL M.D. Performed By: #### G LULS #### Point of Care testing , Commemt1 Glu2: Cleaned Meter Normal [facility] Comment on above: Result Comment: PERF ORMED BY: [facility] [address] [place] [address] PATHOLOGIST WIRELESS FIELD TECHNICIAN ANGELES PAUL M.D. Performed By: #### G LULS #### Point of Care testing , Glucose [Mass/Vol] 166 mg/dL Normal [facility] Comment on above: Result Comment: [place] Glucose Reference Range is dependent on time and content of last meal. Glucose of more than 200 mg/dL in a nonstressed, ambulatory subject supports the diagnosis of Diabetes Mellitus. Performed By: #### G LULS #### Point of Care testing , Magdiel 12-27-2023 L Specimen: [id number] Received: 12/28/23 Status: JERMAINE Pablo Num: [id number] Spec Type: Surgical Subm Dr: Ranulfo Bagley DO Tissues: A Skin Cyst (SEBACEOUS CYST RT SHOULDER) Procedures: HE, Gross/Micro L3 Age/ Patient Sex Location Account Attending Physician Darin Thacker 73/M [place] [id number] Ranulfo Bagley DO SPEC NUM: [id number] RECD: 12/28/23 STATUS: JERMAINE PABLO NUM: [id number] ZORA: 12/27/[address]: Ranulfo Bagley DO ENTERED: 12/28/[address] [facility] [address]: SPEC TYPE: Surgical [...] material. The surrounding tissue is firm, yellow-shaw.. [employer] sections are submitted in one cassette labeled A1. Microscopic Description Microscopic evaluation supports the above rendered diagnosis. CPT Codes 94812 Specimen: [id number] Received: 12/28/23 Status: JERMAINE Pablo Num: [id number] Spec Type: Surgical Subm Dr: Ranulfo Bagley DO Tissues: A Skin Cyst (SEBACEOUS CYST RT SHOULDER) Procedures: Torie RODRIGUEZ/Solomon L3 Patient: Darin Thacker [id number] (Continued) Signed (signature on file) Hillary Rosenbaum MD 12/29/23 1304 Normal [facility] Basic Metabolic Panelon Anion gap [Moles/Vol] 10.4 mmol/L Normal 6.0-15.0 [facility] Comment on above: Performed By: #### B MP, SCAN CBC #### [facility] [address] [place] [address] [place] Calcium [Mass/Vol] 9.5 mg/dL Normal 8.6-10.3 [facility] Comment on above: Result Comment: PERF ORMED BY: [place] [address] PATHOLOGIST WIRELESS FIELD TECHNICIAN ANGELES PAUL M.D. Performed By: #### B MP, SCAN CBC #### [facility] [address] [place] [address] [place] Chloride [Moles/Vol] 105 mmol/L Normal 98-107 [facility] Comment on above: Performed By: #### B MP, SCAN CBC #### [facility] [address] [place] [address] [place] CO2 [Moles/Vol] 24.3 mmol/L Normal 21.0-31.0 [facility] Comment on above: Performed By: #### B MP, SCAN CBC #### [facility] [address] [place] [address] [place] Creatinine [Mass/Vol] 0.66 mg/dL Low 0.70-1.30 [facility] Comment on above: Performed By: #### B MP, SCAN CBC #### [facility] [address] [place] [address] [place] GFR/1.73 sq M.predicted MDRD (S/P/Bld) [Vol rate/Area] mL/min/{1.73_m2} [facility] Comment on above: Performed By: #### B MP, SCAN CBC #### [facility] [address] [place] [address] [place] Glucose [Mass/Vol] 129 mg/dL High 70-100 [facility] Comment on above: Result Comment: [place] [facility] Glucose Reference Range is dependent on time and content of last meal. Glucose of more than 200 mg/dL in a nonstressed, ambulatory subject supports the diagnosis of Diabetes Mellitus. ADA recommended reference range Performed By: #### B MP, SCAN CBC #### [facility] [address] Potassium [Moles/Vol] 4.7 mmol/L Normal 3.5-5.1 [facility] Comment on above: Performed By: #### B MP, SCAN CBC #### [facility] [address] Sodium [Moles/Vol] 135 mmol/L Low 136-145 [facility] Comment on above: Performed By: #### B MP, SCAN CBC #### [facility] [address] Urea nitrogen [Mass/Vol] 18 mg/dL Normal 7-25 [facility] Comment on above: Performed By: #### B MP, SCAN CBC #### [facility] [address] ECG 12 lead ECGon 12-20-2023 ECG 12 lead ECG [facility] [place] [address] [place] [address] Electrocardiograph Report Signed Patient: Darin Thacker MR#: [id number] 96 : 1950 Acct:[id number] Age/Sex: 73 / M ADM Date: 12/20/23 Loc: Room: Type: [facility] Attending Dr: Ranulfo Bagley DO Ordering Provider: [...] When compared with ECG of 14-MAR-2021 10:14, TN interval has increased Vent. rate has decreased BY 43 BPM Nonspecific T wave abnormality now evident in Lateral leads Confirmed by Laurent Livingston ([id number]) on 12/20/2023 7:43:38 PM Referred By: YUDI Electronically Signed By:Laurent Livingston Transcribed By: BRENNAN Signed By Laurent Livingston MD 12/20/23 194 Normal [facility] Scan and CBCon 12-20-2023 Basophils (Bld) [#/Vol] 0.0 10*3/uL Normal 0.0-0.2 [facility] Comment on above: Result Comment: PERF ORMED BY: [place] [address] PATHOLOGIST WIRELESS FIELD TECHNICIAN ANGELES PAUL M.D. Performed By: #### B MP, SCAN CBC #### [address] Basophils/100 WBC (Bld) 0.6 % Normal . [facility] Comment on above: Performed By: #### B MP, SCAN CBC #### [facility] [address] [place] [address] Eosinophils (Bld) [#/Vol] 0.1 10*3/uL Normal 0.0-0.45 [facility] Comment on above: Performed By: #### B MP, SCAN CBC #### [facility] [address] [place] [address] Eosinophils/100 WBC (Bld) 1.4 % Normal . [facility] Comment on above: Performed By: #### B MP, SCAN CBC #### [facility] [address] [place] [address] Erythrocyte distribution width (RBC) [Ratio] 14.5 % Normal 12.0-14.8 [facility] Comment on above: Performed By: #### B MP, SCAN CBC #### [facility] [address] [place] [address] Hematocrit (Bld) [Volume fraction] 53.7 % High 38.8-50.0 [facility] Comment on above: Performed By: #### B MP, SCAN CBC #### [facility] [address] [place] [address] [place] Hemoglobin (Bld) [Mass/Vol] 18.3 g/dL High 13.0-17.0 [facility] Comment on above: Performed By: #### B MP, SCAN CBC #### [facility] [address] Lymphocytes (Bld) [#/Vol] 1.6 10*3/uL Normal 1.00-4.8 [facility] Comment on above: Performed By: #### B MP, SCAN CBC #### [facility] [address] Lymphocytes/100 WBC (Bld) 22.2 % Normal . [facility] Comment on above: Performed By: #### B MP, SCAN CBC #### [address] MCH (RBC) [Entitic mass] 31.7 pg Normal 27.5-35.2 [facility] Comment on above: Performed By: #### B MP, SCAN CBC #### [address] MCV (RBC) [Entitic vol] 92.8 fL Normal 83.5-101 [facility] Comment on above: Performed By: #### B MP, SCAN CBC #### [address] Mean Corpuscular HGB Conc 34.1 g/dL Normal 32.5-35.6 [facility] Comment on above: Performed By: #### B MP, SCAN CBC #### [facility] [address] [place] [address] [place] Monocytes (Bld) [#/Vol] 0.7 10*3/uL Normal 0.0-0.8 [facility] Comment on above: Performed By: #### B MP, SCAN CBC #### [place] [address] [place] Monocytes/100 WBC (Bld) 9.8 % Normal . [facility] Comment on above: Performed By: #### B MP, SCAN CBC #### [facility] [address] [place] [address] [place] Neutrophils (Bld) [#/Vol] 4.8 10*3/uL Normal 1.8-7.7 [facility] Comment on above: Performed By: #### B MP, SCAN CBC #### [address] Neutrophils/100 WBC (Bld) 66.0 % Normal . [facility] Comment on above: Performed By: #### B MP, SCAN CBC #### [facility] [address] [place] [address] NRBC% 0.4 /100{WBC} Normal 0-0.5 [facility] Comment on above: Performed By: #### B MP, SCAN CBC #### [address] Platelet Estimate Normal Normal Normal [facility] Comment on above: Performed By: #### B MP, SCAN CBC #### [address] Platelet mean volume (Bld) [Entitic vol] 8.1 fL Normal 6.6-10.1 [facility] Comment on above: Performed By: #### B MP, SCAN CBC #### [address] Platelet Morphology Normal Normal Normal [facility] Comment on above: Result Comment: PERF ORMED BY: [place] [address] PATHOLOGIST WIRELESS FIELD TECHNICIAN ANGELES PAUL M.D. Performed By: #### B MP, SCAN CBC #### [place] [address] [place] Platelets (Bld) [#/Vol] 206 10*3/uL Normal 150-450 [facility] Comment on above: Performed By: #### B MP, SCAN CBC #### [facility] [address] [place] [address] [place] RBC (Bld) [#/Vol] 5.78 10*6/uL High 3.90-5.60 [facility] Comment on above: Performed By: #### B MP, SCAN CBC #### [facility] [address] [place] [address] [place] RBC morphology finding Nom (Bld) Normal Normal Normal [facility] Comment on above: Performed By: #### B MP, SCAN CBC #### [facility] [address] [place] [address] [place] WBC (Bld) [#/Vol] 7.3 10*3/uL Normal 4.1-10.5 [facility] Comment on above: Performed By: #### B MP, SCAN CBC #### [facility] [address] [place] [address] [place] XR elbow BI 2Von 10-24-2023 XR elbow BI 2V [facility] [place] [address] [place] [address] XRay Report Signed Patient: Darin Thacker MR#: [id number] 96 : 1950 Acct:[id number] Age/Sex: 73 / M ADM Date: 10/24/23 Loc: [facility] Room: Type: [facility] Attending Dr: Shen Luis MD Copies to: [...] Gordon Jr., D.O.10/24/2023 2:29 PM Dictation Location: [place] [address] Transcribed By: [facility] 10/24/23 1429 Dictated By: Dustin Gordon Jr, DO 10/24/23 1428 Signed By: 10/24/23 1429 Normal [facility] CT ABDOMEN WO/W CONon 2022 CT [...] BHAVANA MOREAU Date: 2023-01-31 16:31 Normal [facility] CBC AUTO DIFFon 01-27-2023 BASO # 0.0 103/ul Normal 0.0-0.1 [facility] Comment on above: Performed By: #### B MP #### [facility] [address] [place], [place] [address] Dr. Lucho De León Basophils/100 WBC (Bld) 0.6 % Normal 0.2-2.0 [facility] Comment on above: Performed By: #### B MP #### [facility] [address] [place], [place] [address] Dr. Lucho De León EO # 0.1 103/ul Normal 0.0-0.7 [facility] Comment on above: Performed By: #### B MP #### [facility] [address] [place] [address] Dr. Lucho De León Eosinophils/100 WBC (Bld) 1.4 % Normal 0.9-7.0 [facility] Comment on above: Performed By: #### B MP #### [facility] [address] [place] [address] Dr. Lucho De León Erythrocyte distribution width (RBC) [Ratio] 13.7 % Normal 11.0-15.0 [facility] Comment on above: Performed By: #### B MP #### [facility] [address] [place] [address] Dr. Lucho De León Hematocrit (Bld) [Volume fraction] 51.2 % Normal 42.0-54.0 [facility] Comment on above: Performed By: #### B MP #### [facility] [address] [place] [address] Dr. Lucho De León Hemoglobin (Bld) [Mass/Vol] 17.5 g/dL Normal 14.0-18.0 [facility] Comment on above: Performed By: #### B MP #### [facility] [address] [place] [address] Dr. Lucho De León IG # 0.02 10e3/ul Normal 0.00-0.03 [facility] Comment on above: Performed By: #### B MP #### [facility] [address] [place] [address] Dr. Lucho De León IG % 0.3 % Normal 0.0-0.5 [facility] Comment on above: Performed By: #### B MP #### [facility] [address] [place] [address] Dr. Lucho De León LYMPH # 1.5 103/ul Normal 1.2-3.8 [facility] Comment on above: Performed By: #### B MP #### [facility] [address] [place] [address] Dr. Lucho De León Lymphocytes/100 WBC (Bld) 22.1 % Normal 20.5-60.0 [facility] Comment on above: Performed By: #### B MP #### [facility] [address] [place] [address] Dr. Lucho De León MANUAL DIFF REQ NO Normal [facility] Comment on above: Performed By: #### B MP #### [facility] [address] [place] [address] Dr. Lucho De León MCH (RBC) [Entitic mass] 31.0 pg Normal 25.9-34.0 [facility] Comment on above: Performed By: #### B MP #### [facility] [address] [place] [address] Dr. Lucho De León MCHC (RBC) [Mass/Vol] 34.2 g/dL Normal 29.9-35.2 [facility] Comment on above: Performed By: #### B MP #### [facility] [address] [place] [address] Dr. Lucho De León MCV (RBC) [Entitic vol] 90.6 fL Normal 80.0-94.0 [facility] Comment on above: Performed By: #### B MP #### [facility] [address] [place] [address] Dr. Lucho De León MONO # 0.7 103/ul Normal 0.3-0.8 [facility] Comment on above: Performed By: #### B MP #### [facility] [address] [place] [address] Dr. Lucho De León Monocytes/100 WBC (Bld) 10.7 % Normal 1.7-12.0 [facility] Comment on above: Performed By: #### B MP #### [facility] [address] [place] [address] Dr. Lucho De León NEUT # 4.3 103/ul Normal 1.4-6.5 [facility] Comment on above: Performed By: #### B MP #### [facility] [address] [place] [address] Dr. Lucho De León Neutrophils/100 WBC (Bld) 64.9 % Normal 43.0-75.0 [facility] Comment on above: Performed By: #### B MP #### [facility] [address] [place] [address] Dr. Lucho De León Platelet mean volume (Bld) [Entitic vol] 9.1 fL Critically low 9.5-13.5 [facility] Comment on above: Performed By: #### B MP #### [facility] [address] [place] [address] Dr. Lucho De León PLT 220 103/ul Normal 150-450 [facility] Comment on above: Performed By: #### B MP #### [facility] [address] [place] [address] Dr. Lucho De León RBC 5.65 106/ul Normal 4.70-6.10 [facility] Comment on above: Performed By: #### B MP #### [facility] [address] [place] [address] Dr. Lucho De León WBC 6.6 103/ul Normal 4.0-11.0 [facility] Comment on above: Performed By: #### B MP #### [facility] [address] [place] [address] Dr. Lucho De León GLYCOHEMOGLOBIN A1Con 2022 ADA RECOMMENDATION SEE BELOW Normal [facility] Comment on above: Result Comment: ADA RECOMMENDED LIMIT 4.0 - 6.0 ADA THERAPEUTIC TARGET < 7.0 ACTION SUGGESTED > 7.0 Performed By: #### C VDTBH #### [facility] [address] [place] [address] Dr. Lucho De León Glucose [Mass/Vol] 209 mg/dL Normal [facility] Comment on above: Performed By: #### C VDTBH #### [facility] [address] [place] [address] Dr. Lucho De León HbA1c (Bld) [Mass fraction] 8.9 % Critically high 4.5-6.2 [facility] Comment on above: Performed By: #### C VDTBH #### [facility] [address] [place] [address] Dr. Lucho De León IRONon 01-27-2023 Iron [Mass/Vol] 59.0 ug/dL Critically low 65.0-175.0 [facility] Comment on above: Performed By: #### B MP #### [facility] [address] [address] [address] Lucho De León LIPID PROFILEon 01-27-2023 CHOL-HDL RATIO NORM SEE BELOW Normal [facility] Comment on above: Result Comment: 3.3 - 4.4 LOW RISK 4.4 - 7.1 AVERAGE RISK 7.1 - 11.0 MODERATE RISK >11.0 HIGH RISK Performed By: #### B MP #### [facility] [address] [address] [address] Lucho De León Cholesterol [Mass/Vol] 177 mg/dL Normal <=200 [facility] Comment on above: Performed By: #### B MP #### [facility] [address] [address] [address] Lucho De León Cholesterol in HDL [Mass/Vol] 50 mg/dL Normal 40-60 [facility] Comment on above: Performed By: #### B MP #### [facility] [address] [address] [address] Lucho De León Cholesterol in LDL [Mass/Vol] 89.2 mg/dL Normal [facility] Comment on above: Performed By: #### B MP #### [facility] [address] [address] [address] Lucho De León Cholesterol.total/Cho lesterol in HDL [Mass ratio] 3.5 {ratio} Normal [facility] Comment on above: Performed By: #### B MP #### [facility] [address] [address] [address] Lucho De León HDL NORMAL > or = 60 mg/dl - LOW CARDIOVASCULAR RISK <40 mg/dl - HIGH CARDIOVASCULAR RISK Normal [facility] Comment on above: Performed By: #### B MP #### [facility] [address] [address] [address] Lucho De León LDL CALC NORMAL SEE BELOW Normal [facility] Comment on above: Result Comment: <100 mg/dl OPTIMAL 100 - 129 mg/dl NEAR OR ABOVE OPTIMAL 130 - 159 mg/dl BORDERLINE HIGH 160 - 189 mg/dl HIGH >190 mg/dl VERY HIGH Performed By: #### B MP #### [facility] [address] [place] [address] Dr. Lucho De León Triglyceride [Mass/Vol] 189 mg/dL Critically high <=150 [facility] Comment on above: Performed By: #### B MP #### [facility] [address] [place] [address] Dr. Lucho De León VLDL CALC 37.8 mg/dL Normal [facility] Comment on above: Performed By: #### B MP #### [facility] [address] [place], [place] [id number] Dr. Lucho De León MICROALBUMIN, RAND URon - mALB 7.6 mg/L Normal <=30.0 [facility] Comment on above: Performed By: #### M ALBR #### [facility] [address] [place] [address] Dr. Lucho De León PROF 14(COMP METB)on 023 Albumin [Mass/Vol] 3.6 g/dL Normal 3.4-5.0 [facility] Comment on above: Performed By: #### B MP #### [facility] [address] [place] [address] Dr. Lucho De León Albumin/Globulin [Mass ratio] 0.9 {ratio} Normal [facility] Comment on above: Performed By: #### B MP #### [facility] [address] [place] [address] Dr. Lucho De León ALP [Catalytic activity/Vol] 95 U/L Normal 46-116 [facility] Comment on above: Performed By: #### B MP #### [facility] [address] [place] [address] Dr. Lucho De León ALT [Catalytic activity/Vol] 26 U/L Normal 16-63 [facility] Comment on above: Performed By: #### B MP #### [facility] [address] [place] [address] Dr. Lucho De León Anion gap [Moles/Vol] 16.7 mmol/L Normal [facility] Comment on above: Performed By: #### B MP #### [facility] [address] [place] [address] Dr. Lucho De León AST [Catalytic activity/Vol] 13 U/L Critically low 15-37 [facility] Comment on above: Performed By: #### B MP #### [facility] [address] [address] [address] Lucho De León Bilirubin [Mass/Vol] 0.3 mg/dL Normal 0.2-1.0 [facility] Comment on above: Performed By: #### B MP #### [facility] [address] [address] [address] Lucho De León Calcium [Mass/Vol] 9.7 mg/dL Normal 8.5-10.1 [facility] Comment on above: Performed By: #### B MP #### [facility] [address] [address] [address] Lucho De León Chloride [Moles/Vol] 103 mmol/L Normal 98-107 [facility] Comment on above: Performed By: #### B MP #### [facility] [address] [address] [address] Lucho De León CO2 [Moles/Vol] 24.9 mmol/L Normal 21.0-32.0 [facility] Comment on above: Performed By: #### B MP #### [facility] [address] [address] [address] Lucho De León Creatinine [Mass/Vol] 0.81 mg/dL Normal 0.70-1.30 [facility] Comment on above: Performed By: #### B MP #### [facility] [address] [address] [address] Lucho De León EGFR-AF CITIZEN OF [place] >60 Normal >=60 [facility] Comment on above: Performed By: #### B MP #### [facility] [address] [address] [address] Lucho De León EGFR-NON AF CITIZEN OF [place] >60 Normal >=60 [facility] Comment on above: Performed By: #### B MP #### [facility] [address] [address] [address] Lucho De León Globulin (S) [Mass/Vol] 4.2 g/dL Normal [facility] Comment on above: Performed By: #### B MP #### [facility] [address] [address] [address] Lucho De León Glucose [Mass/Vol] 156 mg/dL Critically high 74-106 [facility] Comment on above: Performed By: #### B MP #### [facility] [address] [address] [address] Lucho De León Potassium [Moles/Vol] 4.6 mmol/L Normal 3.5-5.1 [facility] Comment on above: Performed By: #### B MP #### [facility] [address] [address] [address] Lucho De León Protein [Mass/Vol] 7.8 g/dL Normal 6.4-8.2 [facility] Comment on above: Performed By: #### B MP #### [facility] [address] [address] [address] Lucho De León Sodium [Moles/Vol] 140 mmol/L Normal 136-145 [facility] Comment on above: Performed By: #### B MP #### [facility] [address] [address] [address] Lucho De León Urea nitrogen [Mass/Vol] 15.0 mg/dL Normal 7.0-18.0 [facility] Comment on above: Performed By: #### B MP #### [facility] [address] [address] [address] Lucho De León Urea nitrogen/Creatinine [Mass ratio] 18.5 mg/mg Normal [facility] Comment on above: Performed By: #### B MP #### [facility] [address] [address] [address] Lucho De León UA RANDOM W/MICROSCOPICon BACTERIA NONE SEEN Normal NONE SEEN [facility] Comment on above: Performed By: #### C BC #### [facility] [address] [address] [address] Lucho De León Bilirubin Ql (U) Negative Normal NEGATIVE [facility] Comment on above: Performed By: #### C BC #### [facility] [address] [place] [address] Dr. Lucho De León CAST NONE SEEN Normal NONE SEEN [facility] Comment on above: Performed By: #### C BC #### [facility] [address] [place] [address] Dr. Lucho De León Clarity (U) CLEAR Normal CLEAR [facility] Comment on above: Performed By: #### C BC #### [facility] [address] [place] [address] Dr. Lucho De León Color (U) LT. YELLOW Normal YELLOW [facility] Comment on above: Performed By: #### C BC #### [facility] [address] [place] [address] Dr. Lucho De León Crystals LM Nom (Urine sed) NONE SEEN Normal NONE SEEN [facility] Comment on above: Performed By: #### C BC #### [facility] [address] [place] [address] Dr. Lucho De León Epithelial cells LM Ql (Urine sed) NONE SEEN Normal NONE SEEN /RARE [facility] Comment on above: Performed By: #### C BC #### [facility] [address] [place] [address] Dr. Lucho De León Glucose Ql (U) 1000 mg/dl Abnormal NEGATIVE [facility] Comment on above: Performed By: #### C BC #### [facility] [address] [place] [address] Dr. Lucho De León Hemoglobin Ql (U) Negative Normal NEGATIVE [facility] Comment on above: Performed By: #### C BC #### [facility] [address] [place] [address] Dr. Lucho De León Ketones Ql (U) Negative Normal NEGATIVE [facility] Comment on above: Performed By: #### C BC #### [facility] [address] [place] [address] Dr. Lucho De León LEUKOCYTES Negative Normal NEGATIVE [facility] Comment on above: Performed By: #### C BC #### [facility] [address] [place] [address] Dr. Lucho De León MUCOUS NONE SEEN Normal NONE SEEN [facility] Comment on above: Performed By: #### C BC #### [facility] [address] [address] [address] Lucho De León Nitrite Ql (U) Negative Normal NEGATIVE [facility] Comment on above: Performed By: #### C BC #### [facility] [address] [place] [address] Dr. Lucho De León pH (U) 5.5 [pH] Normal 5-9 [facility] Comment on above: Performed By: #### C BC #### [facility] [address] [place] [address] Dr. Lucho De León RBC NONE SEEN Abnormal 0-2 [facility] Comment on above: Performed By: #### C BC #### [facility] [address] [place] [address] Dr. Lucho De León SPEC GRAVITY 1.020 Normal 1.005-<=1.025 [facility] Comment on above: Performed By: #### C BC #### [facility] [address] [place] [address] Dr. Lucho De León UA PROTEIN Negative Normal NEGATIVE/ TRACE [facility] Comment on above: Performed By: #### C BC #### [facility] [address] [place] [address] Dr. Lucho De León Urobilinogen Qn (U) 0.2 {Danny'U}/dL Normal 0.2 - 1. 0 [facility] Comment on above: Performed By: #### C BC #### [facility] [address] [place] [address] Dr. Lucho De León WBC NONE SEEN Normal NONE SEEN [facility] Comment on above: Performed By: #### C BC #### [facility] [address] [place] [address] Dr. Lucho De León US CAROTID ART [...] BHAVANA MOREAU Date: 2022-12-20 16:32 Normal [facility] CBC AUTO DIFFon 11-18-2022 BASO # 0.1 103/ul Normal 0.0-0.1 [facility] Comment on above: Performed By: #### H GBHCT #### [facility] [address] [address] [address] Lucho De León Basophils/100 WBC (Bld) 0.6 % Normal 0.2-2.0 [facility] Comment on above: Performed By: #### H GBHCT #### [facility] [address] [address] [address] Lucho De León EO # 0.1 103/ul Normal 0.0-0.7 [facility] Comment on above: Performed By: #### H GBHCT #### [facility] [address] [address] [address] Lucho De León Eosinophils/100 WBC (Bld) 1.1 % Normal 0.9-7.0 [facility] Comment on above: Performed By: #### H GBHCT #### [facility] [address] [address] [address] Lucho De León Erythrocyte distribution width (RBC) [Ratio] 13.6 % Normal 11.0-15.0 [facility] Comment on above: Performed By: #### H GBHCT #### [facility] [address] [address] [address] Lucho De León Hematocrit (Bld) [Volume fraction] 56.1 % Critically high 42.0-54.0 [facility] Comment on above: Performed By: #### H GBHCT #### [facility] [address] [address] [address] Lucho De León Hemoglobin (Bld) [Mass/Vol] 17.8 g/dL Normal 14.0-18.0 [facility] Comment on above: Performed By: #### H GBHCT #### [facility] [address] [address] [address] Lucho De León IG # 0.02 10e3/ul Normal 0.00-0.03 [facility] Comment on above: Performed By: #### H GBHCT #### [facility] [address] [place] [address] Dr. Lucho De León IG % 0.2 % Normal 0.0-0.5 [facility] Comment on above: Performed By: #### H GBHCT #### [facility] [address] [address] [address] Lucho De León LYMPH # 1.6 103/ul Normal 1.2-3.8 [facility] Comment on above: Performed By: #### H GBHCT #### [facility] [address] [place] [address] Dr. Lucho De León Lymphocytes/100 WBC (Bld) 19.3 % Critically low 20.5-60.0 [facility] Comment on above: Performed By: #### H GBHCT #### [facility] [address] [place] [address] Dr. Lucho De León MANUAL DIFF REQ NO Normal [facility] Comment on above: Performed By: #### H GBHCT #### [facility] [address] [place] [address] Dr. Lucho De León MCH (RBC) [Entitic mass] 31.0 pg Normal 25.9-34.0 [facility] Comment on above: Performed By: #### H GBHCT #### [facility] [address] [place] [address] Dr. Lucho De León MCHC (RBC) [Mass/Vol] 31.7 g/dL Normal 29.9-35.2 [facility] Comment on above: Performed By: #### H GBHCT #### [facility] [address] [place] [address] Dr. Lucho De León MCV (RBC) [Entitic vol] 97.6 fL Critically high 80.0-94.0 [facility] Comment on above: Performed By: #### H GBHCT #### [facility] [address] [address] [address] Lucho De León MONO # 0.7 103/ul Normal 0.3-0.8 [facility] Comment on above: Performed By: #### H GBHCT #### [facility] [address] [address] [address] Lucho De León Monocytes/100 WBC (Bld) 8.1 % Normal 1.7-12.0 [facility] Comment on above: Performed By: #### H GBHCT #### [facility] [address] [address] [address] Lucho De León NEUT # 5.7 103/ul Normal 1.4-6.5 [facility] Comment on above: Performed By: #### H GBHCT #### [facility] [address] [place] [address] Dr. Lucho De León Neutrophils/100 WBC (Bld) 70.7 % Normal 43.0-75.0 [facility] Comment on above: Performed By: #### H GBHCT #### [facility] [address] [address] [address] Lucho De León Platelet mean volume (Bld) [Entitic vol] 10.6 fL Normal 9.5-13.5 [facility] Comment on above: Performed By: #### H GBHCT #### [facility] [address] [place] [address] Dr. Lucho De León PLT 228 103/ul Normal 150-450 [facility] Comment on above: Performed By: #### H GBHCT #### [facility] [address] [place] [address] Dr. Lucho De León RBC 5.75 106/ul Normal 4.70-6.10 [facility] Comment on above: Performed By: #### H GBHCT #### [facility] [address] [address] [address] Lucho De León WBC 8.1 103/ul Normal 4.0-11.0 [facility] Comment on above: Performed By: #### H GBHCT #### [facility] [address] [address] [address] Lucho De León PROF CHEM 8 (BAS METB)on Anion gap [Moles/Vol] 11.1 mmol/L Normal [facility] Comment on above: Performed By: #### B MP #### [facility] [address] [address] [address] Lucho De León Calcium [Mass/Vol] 9.3 mg/dL Normal 8.5-10.1 [facility] Comment on above: Performed By: #### B MP #### [facility] [address] [address] [address] Lucho De León Chloride [Moles/Vol] 102 mmol/L Normal 98-107 [facility] Comment on above: Performed By: #### B MP #### [facility] [address] [address] [address] Lucho De León CO2 [Moles/Vol] 28.3 mmol/L Normal 21.0-32.0 [facility] Comment on above: Performed By: #### B MP #### [facility] [address] [address] [address] Lucho De León Creatinine [Mass/Vol] 0.59 mg/dL Critically low 0.70-1.30 [facility] Comment on above: Performed By: #### B MP #### [facility] [address] [address] [address] Lucho De León EGFR-AF CITIZEN OF [place] >60 Normal >=60 [facility] Comment on above: Performed By: #### B MP #### [facility] [address] [address] [address] Lucho De León EGFR-NON AF CITIZEN OF [place] >60 Normal >=60 [facility] Comment on above: Performed By: #### B MP #### [facility] [address] [address] [address] Lucho De León Glucose [Mass/Vol] 171 mg/dL Critically high 74-[address] [facility] Comment on above: Performed By: #### B MP #### [facility] [address] [address] [address] Lucho De León Potassium [Moles/Vol] 4.4 mmol/L Normal 3.5-5.1 [facility] Comment on above: Performed By: #### B MP #### [facility] [address] [address] [address] Lucho De León Sodium [Moles/Vol] 137 mmol/L Normal 136-145 [facility] Comment on above: Performed By: #### B MP #### [facility] [address] [address] [address] Lucho De León Urea nitrogen [Mass/Vol] 12.0 mg/dL Normal 7.0-18.0 [facility] Comment on above: Performed By: #### B MP #### [facility] [address] [address] [address] Lucho De León Urea nitrogen/Creatinine [Mass ratio] 20.3 mg/mg Normal [facility] Comment on above: Performed By: #### B MP #### [facility] [address] [address] [address] Lucho De León General Surgery Office/Clini [...] WILKINS, JULIA Mays Only if needed [address] [place] [address]- Additional Instructions: Problem List/Past Medical [...] malignant neoplasm of female breast: Sister. Normal [facility] Comment on above: Result Comment: Elec tronically Signed By: MANJIT WILKINS, Bernadine Calle\Date and Time Signed: 10/25/22 16:08 EST Pathology Noteon 10-19-2022 Pathology Note [id number] #1.00CD:127 Normal [facility] Operative Reporton 2 Operative Report [id number] #1.00CD:127 Normal [facility] GLYCOHEMOGLOBIN A1Con 2021 ADA RECOMMENDATION SEE BELOW Normal [facility] Comment on above: Result Comment: ADA RECOMMENDED LIMIT 4.0 - 6.0 ADA THERAPEUTIC TARGET < 7.0 ACTION SUGGESTED > 7.0 Performed By: #### C [facility] #### [facility] [address] [place] [address] Dr. Lucho De León Glucose [Mass/Vol] 197 mg/dL Normal [facility] Comment on above: Performed By: #### C VDTBH #### [facility] [address] [place] [address] Dr. Lucho De León HbA1c (Bld) [Mass fraction] 8.5 % Critically high 4.5-6.2 [facility] Comment on above: Performed By: #### C VDTBH #### [facility] [address] [place] [address] Dr. Lucho De León PROF CHEM 8 (BAS METB)on Anion gap [Moles/Vol] 12.0 mmol/L Normal [facility] Comment on above: Performed By: #### B MP #### [facility] [address] [place] [address] Dr. Lucho De León Calcium [Mass/Vol] 9.0 mg/dL Normal 8.5-10.1 [facility] Comment on above: Performed By: #### B MP #### [facility] [address] [place] [address] Dr. Lucho De León Chloride [Moles/Vol] 100 mmol/L Normal 98-107 [facility] Comment on above: Performed By: #### B MP #### [facility] [address] [place] [address] Dr. Lucho De León CO2 [Moles/Vol] 24.6 mmol/L Normal 21.0-32.0 [facility] Comment on above: Performed By: #### B MP #### [facility] [address] [place] [address] Dr. Lucho De León Creatinine [Mass/Vol] 0.61 mg/dL Critically low 0.70-1.30 [facility] Comment on above: Performed By: #### B MP #### [facility] [address] [place] [address] Dr. Lucho De León EGFR-AF CITIZEN [place] >60 Normal >=60 [facility] Comment on above: Performed By: #### B MP #### [facility] [address] [place] [address] Dr. Lucho De León EGFR-NON AF CITIZEN OF [place] >60 Normal >=60 [facility] Comment on above: Performed By: #### B MP #### [facility] [address] [address] [address] Lucho De León Glucose [Mass/Vol] 186 mg/dL Critically high 74-106 T [facility] Comment on above: Performed By: #### B MP #### [facility] [address] [address] [address] Lucho De León Potassium [Moles/Vol] 4.6 mmol/L Normal 3.5-5.1 [facility] Comment on above: Performed By: #### B MP #### [facility] [address] [place] [address] Dr. Lucho De León Sodium [Moles/Vol] 132 mmol/L Critically low 136-145 [facility] Comment on above: Performed By: #### B MP #### [facility] [address] [place] [address] Dr. Lucho De León Urea nitrogen [Mass/Vol] 12.0 mg/dL Normal 7.0-18.0 [facility] Comment on above: Performed By: #### B MP #### [facility] [address] [place] [address] Dr. Lucho De León Urea nitrogen/Creatinine [Mass ratio] 19.7 mg/mg Normal [facility] Comment on above: Performed By: #### B MP #### [facility] [address] [place] [address] Dr. Lucho De León XR CSPINE 2_3 [...] by: BHAVANA MOREAU Date: 2022-09-22 12:09 Normal [facility] Consent for Procedure/Surger mary 08-31-2022 Consent for Procedure/Surgery [id number] #1.00CD:127 Normal [facility] Ambulatory Visit Summaryon 1 10-30-2021 Ambulatory [...] allergies Tobacco user Vitamin B12 deficiency Normal [facility] Physician Referralon 022 Physician Referral [id number] #1.00CD:127 Normal [facility] CBC AUTO DIFFon 06-14-2022 BASO # 0.0 103/ul Normal 0.0-0.1 [facility] Comment on above: Performed By: #### C VDTBH #### [facility] [address] [place] [address] Dr. Lucho De León Basophils/100 WBC (Bld) 0.4 % Normal 0.2-2.0 [facility] Comment on above: Performed By: #### C VDTBH #### [facility] [address] [place] [address] Dr. Lucho De León EO # 0.1 103/ul Normal 0.0-0.7 [facility] Comment on above: Performed By: #### C VDTBH #### [facility] [address] [place] [address] Dr. Lucho De León Eosinophils/100 WBC (Bld) 1.6 % Normal 0.9-7.0 [facility] Comment on above: Performed By: #### C VDTBH #### [facility] [address] [place] [address] Dr. Lucho De León Erythrocyte distribution width (RBC) [Ratio] 16.1 % Critically high 11.0-15.0 [facility] Comment on above: Performed By: #### C VDTBH #### [facility] [address] [place] [address] Dr. Lucho De León Hematocrit (Bld) [Volume fraction] 51.3 % Normal 42.0-54.0 [facility] [facility] Comment on above: Performed By: #### C VDTBH #### [facility] [address] [place] [address] Dr. Lucho De León Hemoglobin (Bld) [Mass/Vol] 16.9 g/dL Normal 14.0-18.0 [facility] Comment on above: Performed By: #### C VDTBH #### [facility] [address] [place] [address] Dr. Lucho De León IG # 0.02 10e3/ul Normal 0.00-0.03 [facility] Comment on above: Performed By: #### C VDTBH #### [facility] [address] [place] [address] Dr. Lucho De León IG % 0.3 % Normal 0.0-0.5 [facility] Comment on above: Performed By: #### C VDTBH #### [facility] [address] [place] [address] Dr. Lucho De León LYMPH # 1.6 103/ul Normal 1.2-3.8 [facility] Comment on above: Performed By: #### C VDTBH #### [facility] [address] [place] [address] Dr. Lucho De León Lymphocytes/100 WBC (Bld) 21.6 % Normal 20.5-60.0 [facility] Comment on above: Performed By: #### C VDTBH #### [facility] [address] [place] [address] Dr. Lucho De León MANUAL DIFF REQ NO Normal [facility] Comment on above: Performed By: #### C VDTBH #### [facility] [address] [place] [address] Dr. Lucho De León MCH (RBC) [Entitic mass] 29.3 pg Normal 25.9-34.0 [facility] Comment on above: Performed By: #### C VDTBH #### [facility] [address] [place] [address] Dr. Lucho De León MCHC (RBC) [Mass/Vol] 32.9 g/dL Normal 29.9-35.2 [facility] Comment on above: Performed By: #### C VDTBH #### [facility] [address] [place] [address] Dr. Lucho De León MCV (RBC) [Entitic vol] 89.1 fL Normal 80.0-94.0 [facility] Comment on above: Performed By: #### C VDTBH #### [facility] [address] [place] [address] Dr. Lucho De León MONO # 0.6 103/ul Normal 0.3-0.8 [facility] Comment on above: Performed By: #### C VDTBH #### [facility] [address] [place] [address] Dr. Lucho De León Monocytes/100 WBC (Bld) 8.6 % Normal 1.7-12.0 [facility] Comment on above: Performed By: #### C VDTBH #### [facility] [address] [place] [address] Dr. Lucho De León NEUT # 5.0 103/ul Normal 1.4-6.5 [facility] Comment on above: Performed By: #### C VDTBH #### [facility] [address] [place] [address] Dr. Lucho De León Neutrophils/100 WBC (Bld) 67.5 % Normal 43.0-75.0 [facility] Comment on above: Performed By: #### C VDTBH #### [facility] [address] [place] [address] Dr. Lucho De León Platelet mean volume (Bld) [Entitic vol] 10.3 fL Normal 9.5-13.5 [facility] Comment on above: Performed By: #### C VDTBH #### [facility] [address] [place] [address] Dr. Lucho De León PLT 218 103/ul Normal 150-450 [facility] Comment on above: Performed By: #### C VDTBH #### [facility] [address] [place] [address] Dr. Lucho De León RBC 5.76 106/ul Normal 4.70-6.10 [facility] Comment on above: Performed By: #### C VDTBH #### [facility] [address] [place] [address] Dr. Lucho De León WBC 7.5 103/ul Normal 4.0-11.0 [facility] Comment on above: Performed By: #### C VDTBH #### [facility] [address] [place] [address] Dr. Lucho De León GLYCOHEMOGLOBIN A1Con 2021 ADA RECOMMENDATION SEE BELOW Normal [facility] Comment on above: Result Comment: ADA RECOMMENDED LIMIT 4.0 - 6.0 ADA THERAPEUTIC TARGET < 7.0 ACTION SUGGESTED > 7.0 Performed By: #### A 1C #### [facility] [address] [place] [address] Dr. Lucho De León Glucose [Mass/Vol] 177 mg/dL Normal [facility] Comment on above: Performed By: #### A 1C #### [facility] [address] [place] [address] Dr. Lucho De León HbA1c (Bld) [Mass fraction] 7.8 % Critically high 4.5-6.2 [facility] Comment on above: Performed By: #### A 1C #### [facility] [address] [place] [address] Dr. Lucho De León IRONon 06-14-2022 Iron [Mass/Vol] 50.0 ug/dL Critically low 65.0-175.0 [facility] Comment on above: Performed By: #### C BC #### [facility] [address] [place] [address] Dr. Lucho De León PROF 14(COMP METB)on 022 Albumin [Mass/Vol] 3.8 g/dL Normal 3.4-5.0 [facility] Comment on above: Performed By: #### H GBHCT #### [facility] [address] [place] [address] Dr. Lucho De León Albumin/Globulin [Mass ratio] 0.9 {ratio} Normal [facility] Comment on above: Performed By: #### H GBHCT #### [facility] [address] [place] [address] Dr. Lucho De León ALP [Catalytic activity/Vol] 95 U/L Normal 46-116 [facility] Comment on above: Performed By: #### H GBHCT #### [facility] [address] [place] [address] Dr. Lucho De León ALT [Catalytic activity/Vol] 19 U/L Normal 16-63 [facility] Comment on above: Performed By: #### H GBHCT #### [facility] [address] [place] [address] Dr. Lucho De León Anion gap [Moles/Vol] 12.2 mmol/L Normal [facility] Comment on above: Performed By: #### H GBHCT #### [facility] [address] [address] [address] Lucho De León AST [Catalytic activity/Vol] 11 U/L Critically low 15-37 [facility] Comment on above: Performed By: #### H GBHCT #### [facility] [address] [address] [address] Lucho De León Bilirubin [Mass/Vol] 0.3 mg/dL Normal 0.2-1.0 [facility] Comment on above: Performed By: #### H GBHCT #### [facility] [address] [place] [address] Dr. Lucho De León Calcium [Mass/Vol] 9.6 mg/dL Normal 8.5-10.1 [facility] Comment on above: Performed By: #### H GBHCT #### [facility] [address] [address] [address] Lucho De León Chloride [Moles/Vol] 103 mmol/L Normal 98-107 [facility] Comment on above: Performed By: #### H GBHCT #### [facility] [address] [place] [address] Dr. Lucho De León CO2 [Moles/Vol] 29.4 mmol/L Normal 21.0-32.0 [facility] Comment on above: Performed By: #### H GBHCT #### [facility] [address] [address] [address] Lucho De León Creatinine [Mass/Vol] 0.80 mg/dL Normal 0.70-1.30 [facility] Comment on above: Performed By: #### H GBHCT #### [facility] [address] [place] [address] Dr. Lucho De León EGFR-AF CITIZEN OF [place] >60 Normal >=60 [facility] Comment on above: Performed By: #### H GBHCT #### [facility] [address] [place] [address] Dr. Lucho De León EGFR-NON AF CITIZEN OF [place] >60 Normal >=60 [facility] Comment on above: Performed By: #### H GBHCT #### [facility] [address] [place] [address] Dr. Lucho De León Globulin (S) [Mass/Vol] 4.0 g/dL Normal [facility] Comment on above: Performed By: #### H GBHCT #### [facility] [address] [address] [address] Lucho De León Glucose [Mass/Vol] 202 mg/dL Critically high 74-106 [facility] Comment on above: Performed By: #### H GBHCT #### [facility] [address] [place] [address] Dr. Lucho De León Potassium [Moles/Vol] 4.6 mmol/L Normal 3.5-5.1 [facility] Comment on above: Performed By: #### H GBHCT #### [facility] [address] [place] [address] Dr. Lucho De León Protein [Mass/Vol] 7.8 g/dL Normal 6.4-8.2 [facility] Comment on above: Performed By: #### H GBHCT #### [facility] [address] [place] [address] Dr. Lucho De León Sodium [Moles/Vol] 140 mmol/L Normal 136-145 [facility] Comment on above: Performed By: #### H GBHCT #### [facility] [address] [place] [address] Dr. Lucho De León Urea nitrogen [Mass/Vol] 15.0 mg/dL Normal 7.0-18.0 [facility] Comment on above: Performed By: #### H GBHCT #### [facility] [address] [place] [address] Dr. Lucho De León Urea nitrogen/Creatinine [Mass ratio] 18.8 mg/mg Normal [facility] Comment on above: Performed By: #### H GBHCT #### [facility] [address] [place] [address] Dr. 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 Priteo . For more details please see separate cardiac stress test report. FINDINGS: QUALITY OF STUDY: PERFUSION DEFECT: LOCATION: Mid-inferior. Apical inferior. [place]. SIZE: Medium (3-4 segments). SEVERITY: Mild. TYPE: [...] MD on 04/28/2022 at 08:01 Normal [facility] CBC AUTO DIFFon 04-14-2022 BASO # 0.0 103/ul Normal 0.0-0.1 [facility] Comment on above: Performed By: #### A 1C #### [facility] [address] [address] [address] Lucho De León Basophils/100 WBC (Bld) 0.5 % Normal 0.2-2.0 [facility] Comment on above: Performed By: #### A 1C #### [facility] [address] [place] [address] Dr. Lucho De León EO # 0.1 103/ul Normal 0.0-0.7 [facility] Comment on above: Performed By: #### A 1C #### [facility] [address] [place] [address] Dr. Lucho De León Eosinophils/100 WBC (Bld) 2.0 % Normal 0.9-7.0 [facility] Comment on above: Performed By: #### A 1C #### [facility] [address] [place] [address] Dr. Lucho De León Erythrocyte distribution width (RBC) [Ratio] 15.0 % Normal 11.0-15.0 [facility] Comment on above: Performed By: #### A 1C #### [facility] [address] [place] [address] Dr. Lucho De León Hematocrit (Bld) [Volume fraction] 39.1 % Critically low 42.0-54.0 [facility] Comment on above: Performed By: #### A 1C #### [facility] [address] [place] [address] Dr. Lucho De León Hemoglobin (Bld) [Mass/Vol] 12.5 g/dL Critically low 14.0-18.0 [facility] Comment on above: Performed By: #### A 1C #### [facility] [address] [place] [address] Dr. Lucho De León IG # 0.02 10e3/ul Normal 0.00-0.03 [facility] Comment on above: Performed By: #### A 1C #### [facility] [address] [place] [address] Dr. Lucho De León IG % 0.4 % Normal 0.0-0.5 [facility] Comment on above: Performed By: #### A 1C #### [facility] [address] [place] [address] Dr. Lucho De León LYMPH # 1.7 103/ul Normal 1.2-3.8 [facility] Comment on above: Performed By: #### A 1C #### [facility] [address] [place] [address] Dr. Lucho De León Lymphocytes/100 WBC (Bld) 30.7 % Normal 20.5-60.0 [facility] Comment on above: Performed By: #### A 1C #### [facility] [address] [place] [address] Dr. Lucho De León MANUAL DIFF REQ NO Normal [facility] Comment on above: Performed By: #### A 1C #### [facility] [address] [place] [address] Dr. Lucho De León MCH (RBC) [Entitic mass] 29.7 pg Normal 25.9-34.0 [facility] Comment on above: Performed By: #### A 1C #### [facility] [address] [place] [address] Dr. Lucho De León MCHC (RBC) [Mass/Vol] 32.0 g/dL Normal 29.9-35.2 [facility] Comment on above: Performed By: #### A 1C #### [facility] [address] [place] [address] Dr. Lucho De León MCV (RBC) [Entitic vol] 92.9 fL Normal 80.0-94.0 [facility] Comment on above: Performed By: #### A 1C #### [facility] [address] [place] [address] Dr. Lucho De León MONO # 0.5 103/ul Normal 0.3-0.8 [facility] Comment on above: Performed By: #### A 1C #### [facility] [address] [place] [address] Dr. Lucho De León Monocytes/100 WBC (Bld) 9.6 % Normal 1.7-12.0 [facility] Comment on above: Performed By: #### A 1C #### [facility] [address] [place] [address] Dr. Lucho De León NEUT # 3.2 103/ul Normal 1.4-6.5 [facility] Comment on above: Performed By: #### A 1C #### [facility] [address] [place] [address] Dr. Lucho De León Neutrophils/100 WBC (Bld) 56.8 % Normal 43.0-75.0 [facility] Comment on above: Performed By: #### A 1C #### [facility] [address] [place] [address] Dr. Lucho De León Platelet mean volume (Bld) [Entitic vol] 9.2 fL Critically low 9.5-13.5 [facility] Comment on above: Performed By: #### A 1C #### [facility] [address] [place] [address] Dr. Lucho De León PLT 317 103/ul Normal 150-450 [facility] Comment on above: Performed By: #### A 1C #### [facility] [address] [place] [address] Dr. Lucho De León RBC 4.21 106/ul Critically low 4.70-6.10 [facility] Comment on above: Performed By: #### A 1C #### [facility] [address] [place] [address] Dr. Lucho De León WBC 5.6 103/ul Normal 4.0-11.0 [facility] Comment on above: Performed By: #### A 1C #### [facility] [address] [place] [address] Dr. Lucho De León ECHOCARDIO M/2D COMPLETEon 0 04-14-2022 ECHOCARDIO M/2D COMPLETE Patient: DARIN THACKER Exam Date: 04/14/2022 : 1950 Gender:M Ordering : OLI DYE [facility] Admission #: [id number] Family : Order #: [id number] CLICK HERE TO VIEW EXAM ECHOCARDIOGRAM REPORT [...] Laurent Galindo M.D. on 04/14/2022 at 17:53 [facility] PRBC LEUKOREDUCEDon 04-14-20 22 ABO and Rh group Nom (Bld) Cross Match Result Compatible Unit Blood Type O Pos Unit Number [id number] Status Information Transfused Product ID Red Blood Cells Product Code [id number] Cross Match Result Compatible Unit Blood Type O Pos Unit Number [id number] Status Information Transfused Product ID Red Blood Cells Product Code [id number] [facility] Comment on above: Performed By: #### P RBC #### [facility] [address] [place] [address] Dr. Lucho De León PRBC LEUKOREDUCED Cross Match Result Compatible Unit Blood Type O Pos Unit Number [id number] Status Information Transfused Product ID Red Blood Cells Product Code [id number] [facility] Comment on above: Performed By: #### P RBC #### [facility] [address] [place] [address] Dr. Lucho De León PRBC LEUKOREDUCED Cross Match Result Compatible Unit Blood Type O Pos Unit Number [id number] Status Information Transfused Product ID Red Blood Cells Product Code [id number] Normal [facility] Comment on above: Performed By: #### P RBC #### [facility] [address] [place] [address] Dr. Lucho De León CBC AUTO DIFFon 04-06-2022 BASO # 0.0 103/ul Normal 0.0-0.1 [facility] Comment on above: Performed By: #### C BC #### [facility] [address] [place] [address] Dr. Lucho De León Basophils/100 WBC (Bld) 0.4 % Normal 0.2-2.0 [facility] Comment on above: Performed By: #### C BC #### [facility] [address] [place] [address] Dr. Lucho De León EO # 0.1 103/ul Normal 0.0-0.7 [facility] Comment on above: Performed By: #### C BC #### [facility] [address] [place] [address] Dr. Lucho De León Eosinophils/100 WBC (Bld) 1.4 % Normal 0.9-7.0 [facility] Comment on above: Performed By: #### C BC #### [facility] [address] [place] [address] Dr. Lucho De León Erythrocyte distribution width (RBC) [Ratio] 16.3 % Critically high 11.0-15.0 [facility] Comment on above: Performed By: #### C BC #### [facility] [address] [place] [address] Dr. Lucho De León Hematocrit (Bld) [Volume fraction] 36.2 % Critically low 42.0-54.0 [facility] Comment on above: Performed By: #### C BC #### [facility] [address] [place] [address] Dr. Lucho De León Hemoglobin (Bld) [Mass/Vol] 11.3 g/dL Critically low 14.0-18.0 [facility] Comment on above: Performed By: #### C BC #### [facility] [address] [place] [address] Dr. Lucho De León IG # 0.04 10e3/ul Critically high 0.00-0.[address] [facility] Comment on above: Performed By: #### C BC #### [facility] [address] [place] [address] Dr. Lucho De León IG % 0.5 % Normal 0.0-0.5 [facility] Comment on above: Performed By: #### C BC #### [facility] [address] [place] [address] Dr. Lucho De León LYMPH # 2.0 103/ul Normal 1.2-3.8 [facility] Comment on above: Performed By: #### C BC #### [facility] [address] [place] [address] Dr. Lucho De León Lymphocytes/100 WBC (Bld) 26.7 % Normal 20.5-60.0 [facility] Comment on above: Performed By: #### C BC #### [facility] [address] [place] [address] Dr. Lucho De León MANUAL DIFF REQ NO Normal [facility] Comment on above: Performed By: #### C BC #### [facility] [address] [place] [address] Dr. Lucho De León MCH (RBC) [Entitic mass] 29.7 pg Normal 25.9-34.0 [facility] Comment on above: Performed By: #### C BC #### [facility] [address] [place] [address] Dr. Lucho De León MCHC (RBC) [Mass/Vol] 31.2 g/dL Normal 29.9-35.2 [facility] Comment on above: Performed By: #### C BC #### [facility] [address] [place] [address] Dr. Lucho De León MCV (RBC) [Entitic vol] 95.3 fL Critically high 80.0-94.0 [facility] Comment on above: Performed By: #### C BC #### [facility] [address] [place] [address] Dr. Lucho De León MONO # 0.9 103/ul Critically high 0.3-0.8 [facility] Comment on above: Performed By: #### C BC #### [facility] [address] [place] [address] Dr. Lucho De León Monocytes/100 WBC (Bld) 11.8 % Normal 1.7-12.0 [facility] Comment on above: Performed By: #### C BC #### [facility] [address] [place] [address] Dr. Lucho De León NEUT # 4.3 103/ul Normal 1.4-6.5 [facility] Comment on above: Performed By: #### C BC #### [facility] [address] [place] [address] Dr. Lucho De León Neutrophils/100 WBC (Bld) 59.2 % Normal 43.0-75.0 [facility] Comment on above: Performed By: #### C BC #### [facility] [address] [place] [address] Dr. Lucho De León Platelet mean volume (Bld) [Entitic vol] 9.1 fL Critically low 9.5-13.5 [facility] Comment on above: Performed By: #### C BC #### [facility] [address] [place] [address] Dr. Lucho De León PLT 371 103/ul Normal 150-450 [facility] Comment on above: Performed By: #### C BC #### [facility] [address] [place] [address] Dr. Lucho De León RBC 3.80 106/ul Critically low 4.70-6.10 [facility] Comment on above: Performed By: #### C BC #### [facility] [address] [place] [address] Dr. Lucho De León WBC 7.3 103/ul Normal 4.0-11.0 [facility] Comment on above: Performed By: #### C BC #### [facility] [address] [place] [address] Dr. Lucho De León PROF CHEM 8 (BAS METB)on 06- 22-2022 Anion gap [Moles/Vol] 12.4 mmol/L Normal [facility] Comment on above: Performed By: #### A 1C #### [facility] [address] [place] [address] Dr. Lucho De León Calcium [Mass/Vol] 9.3 mg/dL Normal 8.5-10.1 [facility] Comment on above: Performed By: #### A 1C #### [facility] [address] [place] [address] Dr. Lucho De León Chloride [Moles/Vol] 104 mmol/L Normal 98-107 [facility] Comment on above: Performed By: #### A 1C #### [facility] [address] [place] [address] Dr. Lucho De León CO2 [Moles/Vol] 24.6 mmol/L Normal 21.0-32.0 [facility] Comment on above: Performed By: #### A 1C #### [facility] [address] [place] [address] Dr. Lucho De León Creatinine [Mass/Vol] 0.67 mg/dL Critically low 0.70-1.30 [facility] Comment on above: Performed By: #### A 1C #### [facility] [address] [place] [address] Dr. Lucho De León EGFR-AF CITIZ[place] >60 Normal >=60 [facility] Comment on above: Performed By: #### A 1C #### [facility] [address] [place] [address] Dr. Lucho De León EGFR-NON AF CITIZEN OF [place] >60 Normal >=60 [facility] Comment on above: Performed By: #### A 1C #### [facility] [address] [place] [address] Dr. Lucho De León Glucose [Mass/Vol] 144 mg/dL Critically high 74-[address] [facility] Comment on above: Performed By: #### A 1C #### [facility] [address] [place] [address] Dr. Lucho De León Potassium [Moles/Vol] 5.0 mmol/L Normal 3.5-5.1 [facility] Comment on above: Performed By: #### A 1C #### [facility] [address] [place] [address] Dr. Lucho De León Sodium [Moles/Vol] 136 mmol/L Normal 136-145 [facility] Comment on above: Performed By: #### A 1C #### [facility] [address] [place] [address] Dr. Lucho De León Urea nitrogen [Mass/Vol] 12.0 mg/dL Normal 7.0-18.0 [facility] Comment on above: Performed By: #### A 1C #### [facility] [address] [place] [address] Dr. Lucho De León Urea nitrogen/Creatinine [Mass ratio] 17.9 mg/mg Normal [facility] Comment on above: Performed By: #### A 1C #### [facility] [address] [place] [address] Dr. Lucho De León CBC AUTO DIFFon 03-30-2022 BASO # 0.0 103/ul Normal 0.0-0.1 [facility] Comment on above: Performed By: #### C BC #### [facility] [address] [place] [address] Dr. Lucho De León Basophils/100 WBC (Bld) 0.2 % Normal 0.2-2.0 [facility] Comment on above: Performed By: #### C BC #### [facility] [address] [place] [address] Dr. Lucho De León EO # 0.1 103/ul Normal 0.0-0.7 [facility] Comment on above: Performed By: #### C BC #### [facility] [address] [place] [address] Dr. Lucho De León Eosinophils/100 WBC (Bld) 0.9 % Normal 0.9-7.0 [facility] Comment on above: Performed By: #### C BC #### [facility] [address] [place] [address] Dr. Lucho De León Erythrocyte distribution width (RBC) [Ratio] 16.9 % Critically high 11.0-15.0 [facility] Comment on above: Performed By: #### C BC #### [facility] [address] [address] [address] Lucho De León Hematocrit (Bld) [Volume fraction] 29.9 % Critically low 42.0-54.0 [facility] Comment on above: Performed By: #### C BC #### [facility] [address] [place] [address] Dr. Lucho De León Hemoglobin (Bld) [Mass/Vol] 10.1 g/dL Critically low 14.0-18.0 [facility] Comment on above: Performed By: #### C BC #### [facility] [address] [place] [address] Dr. Lucho De León IG # 0.10 10e3/ul Critically high 0.00-0.[address] [facility] Comment on above: Performed By: #### C BC #### [facility] [address] [place] [address] Dr. Lucho De León IG % 0.9 % Critically high 0.0-0.5 [facility] Comment on above: Performed By: #### C BC #### [facility] [address] [place] [address] Dr. Lucho De León LYMPH # 2.0 103/ul Normal 1.2-3.8 [facility] Comment on above: Performed By: #### C BC #### [facility] [address] [place] [address] Dr. Lucho De León Lymphocytes/100 WBC (Bld) 18.3 % Critically low 20.5-60.0 [facility] Comment on above: Performed By: #### C BC #### [facility] [address] [place] [address] Dr. Lucho De León MANUAL DIFF REQ NO Normal [facility] Comment on above: Performed By: #### C BC #### [facility] [address] [place] [address] Dr. Lucho De León MCH (RBC) [Entitic mass] 30.6 pg Normal 25.9-34.0 [facility] Comment on above: Performed By: #### C BC #### [facility] [address] [address] [address] Lucho De León MCHC (RBC) [Mass/Vol] 33.8 g/dL Normal 29.9-35.2 [facility] Comment on above: Performed By: #### C BC #### [facility] [address] [address] [address] Lucho De León MCV (RBC) [Entitic vol] 90.6 fL Normal 80.0-94.0 [facility] Comment on above: Performed By: #### C BC #### [facility] [address] [address] [address] Lucho De León MONO # 0.9 103/ul Critically high 0.3-0.8 [facility] Comment on above: Performed By: #### C BC #### [facility] [address] [place] [address] Dr. Lucho De León Monocytes/100 WBC (Bld) 8.2 % Normal 1.7-12.0 [facility] Comment on above: Performed By: #### C BC #### [facility] [address] [address] [address] Lucho De León NEUT # 8.0 103/ul Critically high 1.4-6.5 [facility] Comment on above: Performed By: #### C BC #### [facility] [address] [place] [address] Dr. Lucho De León Neutrophils/100 WBC (Bld) 71.5 % Normal 43.0-75.0 [facility] Comment on above: Performed By: #### C BC #### [facility] [address] [address] [address] Lucho De León Platelet mean volume (Bld) [Entitic vol] 9.7 fL Normal 9.5-13.5 [facility] Comment on above: Performed By: #### C BC #### [facility] [address] [address] [address] Lucho De León PLT 195 103/ul Normal 150-450 [facility] Comment on above: Performed By: #### C BC #### [facility] [address] [address] [address] Lucho De León RBC 3.30 106/ul Critically low 4.70-6.10 [facility] Comment on above: Performed By: #### C BC #### [facility] [address] [address] [address] Lucho De León WBC 11.1 103/ul Critically high 4.0-11.0 [facility] Comment on above: Performed By: #### C BC #### [facility] [address] [address] [address] Lucho De León PROF CHEM 8 (BAS METB)on Anion gap [Moles/Vol] 11.8 mmol/L Normal [facility] Comment on above: Performed By: #### C BC #### [facility] [address] [place] [address] Dr. Lucho De León Calcium [Mass/Vol] 8.5 mg/dL Normal 8.5-10.1 [facility] Comment on above: Performed By: #### C BC #### [facility] [address] [address] [address] Lucho De León Chloride [Moles/Vol] 103 mmol/L Normal 98-107 [facility] Comment on above: Performed By: #### C BC #### [facility] [address] [address] [address] Lucho De León CO2 [Moles/Vol] 25.8 mmol/L Normal 21.0-32.0 [facility] Comment on above: Performed By: #### C BC #### [facility] [address] [place] [address] Dr. Lucho De León Creatinine [Mass/Vol] 0.56 mg/dL Critically low 0.70-1.30 [facility] Comment on above: Performed By: #### C BC #### [facility] [address] [address] [address] Lucho De León EGFR-AF CITIZEN OF [place] >60 Normal >=60 [facility] Comment on above: Performed By: #### C BC #### [facility] [address] [address] [address] Lucho De León EGFR-NON AF CITIZEN OF [place] >60 Normal >=60 [facility] Comment on above: Performed By: #### C BC #### [facility] [address] [address] [address] Lucho De León Glucose [Mass/Vol] 166 mg/dL Critically high 74-106 [facility] Comment on above: Performed By: #### C BC #### [facility] [address] [address] [address] Lucho De León Potassium [Moles/Vol] 3.6 mmol/L Normal 3.5-5.1 [facility] Comment on above: Performed By: #### C BC #### [facility] [address] [place] [address] Dr. Lucho De León Sodium [Moles/Vol] 137 mmol/L Normal 136-145 [facility] Comment on above: Performed By: #### C BC #### [facility] [address] [place] [address] Dr. Lucho De León Urea nitrogen [Mass/Vol] 6.0 mg/dL Critically low 7.0-18.0 [facility] Comment on above: Performed By: #### C BC #### [facility] [address] [place] [address] Dr. Lucho De León Urea nitrogen/Creatinine [Mass ratio] 10.7 mg/mg Normal [facility] Comment on above: Performed By: #### C BC #### [facility] [address] [place] [address] Dr. Lucho De León CBC AUTO DIFFon 03-29-2022 BASO # 0.0 103/ul Normal 0.0-0.1 [facility] Comment on above: Performed By: #### A 1C #### [facility] [address] [place] [address] Dr. Lucho De León Basophils/100 WBC (Bld) 0.3 % Normal 0.2-2.0 [facility] Comment on above: Performed By: #### A 1C #### [facility] [address] [address] [address] Lucho De León EO # 0.1 103/ul Normal 0.0-0.7 [facility] Comment on above: Performed By: #### A 1C #### [facility] [address] [place] [address] Dr. Lucho De León Eosinophils/100 WBC (Bld) 0.8 % Critically low 0.9-7.0 [facility] Comment on above: Performed By: #### A 1C #### [facility] [address] [place] [address] Dr. Lucho De León Erythrocyte distribution width (RBC) [Ratio] 16.9 % Critically high 11.0-15.0 [facility] Comment on above: Performed By: #### A 1C #### [facility] [address] [place] [address] Dr. Lucho De León Hematocrit (Bld) [Volume fraction] 23.0 % Critically low 42.0-54.0 [facility] Comment on above: Performed By: #### A 1C #### [facility] [address] [place] [address] Dr. Lucho De León Hemoglobin (Bld) [Mass/Vol] 7.6 g/dL Critically low 14.0-18.0 [facility] Comment on above: Performed By: #### A 1C #### [facility] [address] [place] [address] Dr. Lucho De León IG # 0.10 10e3/ul Critically high 0.00-0.03 [facility] Comment on above: Performed By: #### A 1C #### [facility] [address] [place] [address] Dr. Lucho De León IG % 1.3 % Critically high 0.0-0.5 [facility] Comment on above: Performed By: #### A 1C #### [facility] [address] [place] [address] Dr. Lucho De León LYMPH # 2.4 103/ul Normal 1.2-3.8 [facility] Comment on above: Performed By: #### A 1C #### [facility] [address] [place] [address] Dr. Lucho De León Lymphocytes/100 WBC (Bld) 32.1 % Normal 20.5-60.0 [facility] Comment on above: Performed By: #### A 1C #### [facility] [address] [place] [address] Dr. Lucho De León MANUAL DIFF REQ NO Normal [facility] Comment on above: Performed By: #### A 1C #### [facility] [address] [place] [address] Dr. Lucho De León MCH (RBC) [Entitic mass] 30.9 pg Normal 25.9-34.0 [facility] Comment on above: Performed By: #### A 1C #### [facility] [address] [place] [address] Dr. Lucho De León MCHC (RBC) [Mass/Vol] 33.0 g/dL Normal 29.9-35.2 [facility] Comment on above: Performed By: #### A 1C #### [facility] [address] [place] [address] Dr. Lucho De León MCV (RBC) [Entitic vol] 93.5 fL Normal 80.0-94.0 [facility] Comment on above: Performed By: #### A 1C #### [facility] [address] [place] [address] Dr. Lucho De León MONO # 0.8 103/ul Normal 0.3-0.8 [facility] Comment on above: Performed By: #### A 1C #### [facility] [address] [place] [address] Dr. Lucho De León Monocytes/100 WBC (Bld) 11.3 % Normal 1.7-12.0 [facility] Comment on above: Performed By: #### A 1C #### [facility] [address] [place] [address] Dr. Lucho De León NEUT # 4.0 103/ul Normal 1.4-6.5 [facility] Comment on above: Performed By: #### A 1C #### [facility] [address] [place] [address] Dr. Lucho De León Neutrophils/100 WBC (Bld) 54.2 % Normal 43.0-75.0 [facility] Comment on above: Performed By: #### A 1C #### [facility] [address] [place] [address] Dr. Lucho De León Platelet mean volume (Bld) [Entitic vol] 9.7 fL Normal 9.5-13.5 [facility] Comment on above: Performed By: #### A 1C #### [facility] [address] [place] [address] Dr. Lucho De León PLT 155 103/ul Normal 150-450 [facility] Comment on above: Performed By: #### A 1C #### [facility] [address] [place] [address] Dr. Lucho De León RBC 2.46 106/ul Critically low 4.70-6.10 [facility] Comment on above: Performed By: #### A 1C #### [facility] [address] [place] [address] Dr. Lucho De León WBC 7.4 103/ul Normal 4.0-11.0 [facility] Comment on above: Performed By: #### A 1C #### [facility] [address] [place] [address] Dr. Lucho De León HEMOGLOBIN AND HEMATOCRITon 03-29-2022 Hematocrit (Bld) [Volume fraction] 27.6 % Critically low 42.0-54.0 [facility] Comment on above: Performed By: #### A 1C #### [facility] [address] [place] [address] Dr. Lucho De León Hemoglobin (Bld) [Mass/Vol] 9.0 g/dL Critically low 14.0-18.0 [facility] Comment on above: Performed By: #### A 1C #### [facility] [address] [place] [address] Dr. Lucho De León POINT OF CARE GLUCOSEon - Glucose [Mass/Vol] 135 mg/dL Critically high 74-106 T [facility] Comment on above: Performed By: #### M ALBR #### [facility] [address] [address] [address] Lucho De León Glucose [Mass/Vol] 159 mg/dL Critically high 74-[address] [facility] Comment on above: Performed By: #### M ALBR #### [facility] [address] [place] [address] Dr. Lucho De León Glucose [Mass/Vol] 225 mg/dL Critically high -[address] [facility] Comment on above: Performed By: #### C VDTBH #### [facility] [address] [place] [address] Dr. Lucho De León Glucose [Mass/Vol] 181 mg/dL Critically high -[address] [facility] Comment on above: Performed By: #### P OCGLUC #### [facility] [address] [place] [address] Dr. Lucho De León PROF CHEM 8 (BAS METB)on Anion gap [Moles/Vol] 9.5 mmol/L Normal [facility] Comment on above: Performed By: #### A 1C #### [facility] [address] [place] [address] Dr. Lucho De León Calcium [Mass/Vol] 7.7 mg/dL Critically low 8.5-10.1 [facility] Comment on above: Performed By: #### A 1C #### [facility] [address] [place] [address] Dr. Lucho De León Chloride [Moles/Vol] 107 mmol/L Normal 98-107 [facility] Comment on above: Performed By: #### A 1C #### [facility] [address] [place] [address] Dr. Lucho De León CO2 [Moles/Vol] 23.7 mmol/L Normal 21.0-32.0 [facility] Comment on above: Performed By: #### A 1C #### [facility] [address] [place] [address] Dr. Lucho De León Creatinine [Mass/Vol] 0.58 mg/dL Critically low 0.70-1.30 [facility] Comment on above: Performed By: #### A 1C #### [facility] [address] [place] [address] Dr. Lucho De León EGFR-AF CITIZ[place] >60 Normal >=60 [facility] Comment on above: Performed By: #### A 1C #### [facility] [address] [place] [address] Dr. Lucho De León EGFR-NON AF CITIZEN [place] >60 Normal >=60 [facility] Comment on above: Performed By: #### A 1C #### [facility] [address] [address] [address] Lucho De León Glucose [Mass/Vol] 125 mg/dL Critically high 74-106 T [facility] Comment on above: Performed By: #### A 1C #### [facility] [address] [place] [address] Dr. Lucho De León Potassium [Moles/Vol] 4.2 mmol/L Normal 3.5-5.1 [facility] Comment on above: Performed By: #### A 1C #### [facility] [address] [place] [address] Dr. Lucho De León Sodium [Moles/Vol] 136 mmol/L Normal 136-145 [facility] Comment on above: Performed By: #### A 1C #### [facility] [address] [place] [address] Dr. Lucho De León Urea nitrogen [Mass/Vol] 15.0 mg/dL Normal 7.0-18.0 [facility] Comment on above: Performed By: #### A 1C #### [facility] [address] [place] [address] Dr. Lucho De León Urea nitrogen/Creatinine [Mass ratio] 25.9 mg/mg Normal [facility] Comment on above: Performed By: #### A 1C #### [facility] [address] [place] [address] Dr. Lucho De León CBC AUTO DIFFon 03-28-2022 BASO # 0.0 103/ul Normal 0.0-0.1 [facility] Comment on above: Performed By: #### B MP #### [facility] [address] [place] [address] Dr. Lucho De León Basophils/100 WBC (Bld) 0.3 % Normal 0.2-2.0 [facility] Comment on above: Performed By: #### B MP #### [facility] [address] [place] [address] Dr. Lucho De León EO # 0.0 103/ul Normal 0.0-0.7 [facility] Comment on above: Performed By: #### B MP #### [facility] [address] [place] [address] Dr. Lucho De León Eosinophils/100 WBC (Bld) 0.4 % Critically low 0.9-7.0 [facility] Comment on above: Performed By: #### B MP #### [facility] [address] [place] [address] Dr. Lucho De León Erythrocyte distribution width (RBC) [Ratio] 15.8 % Critically high 11.0-15.0 [facility] Comment on above: Performed By: #### B MP #### [facility] [address] [place] [address] Dr. Lucho De León Hematocrit (Bld) [Volume fraction] 23.6 % Critically low 42.0-54.0 [facility] Comment on above: Performed By: #### B MP #### [facility] [address] [place] [address] Dr. Lucho De León Hemoglobin (Bld) [Mass/Vol] 7.9 g/dL Critically low 14.0-18.0 [facility] Comment on above: Performed By: #### B MP #### [facility] [address] [place] [address] Dr. Lucho De León IG # 0.17 10e3/ul Critically high 0.00-0.[address] [facility] Comment on above: Performed By: #### B MP #### [facility] [address] [place] [address] Dr. Lucho De León IG % 1.6 % Critically high 0.0-0.5 [facility] Comment on above: Performed By: #### B MP #### [facility] [address] [place] [address] Dr. Lucho De León LYMPH # 2.8 103/ul Normal 1.2-3.8 [facility] Comment on above: Performed By: #### B MP #### [facility] [address] [place] [address] Dr. Lucho De León Lymphocytes/100 WBC (Bld) 27.0 % Normal 20.5-60.0 [facility] Comment on above: Performed By: #### B MP #### [facility] [address] [place] [address] Dr. Lucho De León MANUAL DIFF REQ NO Normal [facility] Comment on above: Performed By: #### B MP #### [facility] [address] [place] [address] Dr. Lucho De León MCH (RBC) [Entitic mass] 30.3 pg Normal 25.9-34.0 [facility] Comment on above: Performed By: #### B MP #### [facility] [address] [place] [address] Dr. Lucho De León MCHC (RBC) [Mass/Vol] 33.5 g/dL Normal 29.9-35.2 [facility] Comment on above: Performed By: #### B MP #### [facility] [address] [place] [address] Dr. Lucho De León MCV (RBC) [Entitic vol] 90.4 fL Normal 80.0-94.0 [facility] Comment on above: Performed By: #### B MP #### [facility] [address] [place] [address] Dr. Lucho De León MONO # 1.2 103/ul Critically high 0.3-0.8 [facility] Comment on above: Performed By: #### B MP #### [facility] [address] [place] [address] Dr. Lucho De León Monocytes/100 WBC (Bld) 11.6 % Normal 1.7-12.0 [facility] Comment on above: Performed By: #### B MP #### [facility] [address] [place] [address] Dr. Lucho De León NEUT # 6.2 103/ul Normal 1.4-6.5 [facility] Comment on above: Performed By: #### B MP #### [facility] [address] [place] [address] Dr. Lucho De León Neutrophils/100 WBC (Bld) 59.1 % Normal 43.0-75.0 [facility] Comment on above: Performed By: #### B MP #### [facility] [address] [place] [address] Dr. Lucho De León Platelet mean volume (Bld) [Entitic vol] 10.1 fL Normal 9.5-13.5 [facility] Comment on above: Performed By: #### B MP #### [facility] [address] [place] [address] Dr. Lucho De León PLT 166 103/ul Normal 150-450 [facility] Comment on above: Performed By: #### B MP #### [facility] [address] [place] [address] Dr. Lucho De León RBC 2.61 106/ul Critically low 4.70-6.10 [facility] Comment on above: Performed By: #### B MP #### [facility] [address] [place] [address] Dr. Lucho De León WBC 10.5 103/ul Normal 4.0-11.0 [facility] Comment on above: Performed By: #### B MP #### [facility] [address] [place] [address] Dr. Lucho De León HEMOGLOBIN AND HEMATOCRITon 03-28-2022 Hematocrit (Bld) [Volume fraction] 26.4 % Critically low 42.0-54.0 [facility] Comment on above: Performed By: #### H GBHCT #### [facility] [address] [place] [address] Dr. Lucho De León Hemoglobin (Bld) [Mass/Vol] 8.8 g/dL Critically low 14.0-18.0 [facility] Comment on above: Performed By: #### H GBHCT #### [facility] [address] [place] [address] Dr. Lucho De León Hematocrit (Bld) [Volume fraction] 20.9 % Critically low 42.0-54.0 [facility] Comment on above: Performed By: #### C VDTBH #### [facility] [address] [place] [address] Dr. Lucho De León Hemoglobin (Bld) [Mass/Vol] 7.1 g/dL Critically low 14.0-18.0 [facility] Comment on above: Performed By: #### C VDTBH #### [facility] [address] [place] [address] Dr. Lucho De León POINT OF CARE GLUCOSEon 03-16 Glucose [Mass/Vol] 132 mg/dL Critically high 74-[address] [facility] Comment on above: Performed By: #### C BC #### [facility] [address] [place] [address] Dr. Lucho De León Glucose [Mass/Vol] 198 mg/dL Critically high 74-[address] [facility] Comment on above: Performed By: #### A 1C #### [facility] [address] [place] [address] Dr. Lucho De León Glucose [Mass/Vol] 82 mg/dL Normal 74-106 [facility] Comment on above: Performed By: #### C BC #### [facility] [address] [place] [address] Dr. Lucho De León Glucose [Mass/Vol] 85 mg/dL Normal 74-106 [facility] Comment on above: Performed By: #### C VDTBH #### [facility] [address] [place] [address] Dr. Lucho De León Glucose [Mass/Vol] 115 mg/dL Critically high 74-[address] [facility] Comment on above: Performed By: #### A 1C #### [facility] [address] [place] [address] Dr. Lucho De León PROF CHEM 8 (BAS METB)on Anion gap [Moles/Vol] 10.6 mmol/L Normal [facility] Comment on above: Performed By: #### M ALBR #### [facility] [address] [address] [address] Lucho De León Calcium [Mass/Vol] 8.0 mg/dL Critically low 8.5-10.1 [facility] Comment on above: Performed By: #### M ALBR #### [facility] [address] [address] [address] Lucho De León Chloride [Moles/Vol] 108 mmol/L Critically high 98-107 [facility] Comment on above: Performed By: #### M ALBR #### [facility] [address] [address] [address] Lucho De León CO2 [Moles/Vol] 23.6 mmol/L Normal 21.0-32.0 [facility] Comment on above: Performed By: #### M ALBR #### [facility] [address] [place] [address] Dr. Lucho De León Creatinine [Mass/Vol] 0.54 mg/dL Critically low 0.70-1.30 [facility] Comment on above: Performed By: #### M ALBR #### [facility] [address] [address] [address] Lucho De León EGFR-AF CITIZ[place] >60 Normal >=60 [facility] Comment on above: Performed By: #### M ALBR #### [facility] [address] [place] [address] Dr. Lucho De León EGFR-NON AF CITIZ[place] >60 Normal >=60 [facility] Comment on above: Performed By: #### M ALBR #### [facility] [address] [address] [address] Lucho De León Glucose [Mass/Vol] 126 mg/dL Critically high 74-[address] [facility] Comment on above: Performed By: #### M ALBR #### [facility] [address] [address] [address] Lucho De León Potassium [Moles/Vol] 4.2 mmol/L Normal 3.5-5.1 [facility] Comment on above: Performed By: #### M ALBR #### [facility] [address] [address] [address] Lucho De León Sodium [Moles/Vol] 138 mmol/L Normal 136-145 [facility] Comment on above: Performed By: #### M ALBR #### [facility] [address] [place] [address] Dr. Lucho De León Urea nitrogen [Mass/Vol] 28.0 mg/dL Critically high 7.0-18.0 [facility] Comment on above: Performed By: #### M ALBR #### [facility] [address] [place] [address] Dr. Lucho De León Urea nitrogen/Creatinine [Mass ratio] 51.9 mg/mg Normal [facility] Comment on above: Performed By: #### M ALBR #### [facility] [address] [place] [address] Dr. Lucho De León CBC W MANUAL DIFFon 03-27-20 22 ATYPICAL LYMPH # Normal [facility] Comment on above: Performed By: #### C VDTBH #### [facility] [address] [place] [address] Dr. Lucho De León ATYPICAL LYMPH % Normal [facility] Comment on above: Performed By: #### C VDTBH #### [facility] [address] [place] [address] Dr. Lucho De León BAND # 0.4 103/ul Critically high 0.0-0.3 [facility] Comment on above: Performed By: #### C VDTBH #### [facility] [address] [place] [address] Dr. Lucho De León BAND % 3 % Normal 0-5 [facility] Comment on above: Performed By: #### C VDTBH #### [facility] [address] [place] [address] Dr. Lucho De León BASOM # 0.00 103/ul Normal 0.00-0.10 [facility] Comment on above: Performed By: #### C VDTBH #### [facility] [address] [place] [address] Dr. Lucho De León BASOM % 0.0 % Critically low 0.2-2.0 [facility] Comment on above: Performed By: #### C VDTBH #### [facility] [address] [place] [address] Dr. Lucho De León BLAST # Normal [facility] Comment on above: Performed By: #### C VDTBH #### [facility] [address] [place] [address] Dr. Lucho De León BLAST % Normal [facility] Comment on above: Performed By: #### C VDTBH #### [facility] [address] [place] [address] Dr. Lucho De León CORRECTED WBC Normal 4.0-11.0 [facility] Comment on above: Performed By: #### C VDTBH #### [facility] [address] [place] [address] Dr. Lucho De León EOS # 0.00 103/ul Normal 0.00-0.70 [facility] Comment on above: Performed By: #### C VDTBH #### [facility] [address] [place] [address] Dr. Lucho De León EOS% 0.0 % Critically low 0.9-7.0 [facility] Comment on above: Performed By: #### C VDTBH #### [facility] [address] [place] [address] Dr. Lucho De León HCT 25.1 % Critically low 42.0-54.0 [facility] Comment on above: Performed By: #### C VDTBH #### [facility] [address] [place] [address] Dr. Lucho De León HGB 8.5 g/dl Critically low 14.0-18.0 [facility] Comment on above: Performed By: #### C VDTBH #### [facility] [address] [place] [address] Dr. Lucho De León LYMPHM # 2.10 103/ul Normal 1.20-3.80 [facility] Comment on above: Performed By: #### C VDTBH #### [facility] [address] [place] [address] Dr. Lucho De León LYMPHM% 15.0 % Critically low 20.5-60.0 [facility] Comment on above: Performed By: #### C VDTBH #### [facility] [address] [place] [address] Dr. Lucho De León MCH 30.9 pg Normal 25.9-34.0 [facility] Comment on above: Performed By: #### C VDTBH #### [facility] [address] [place] [address] Dr. Lucho De León MCHC 33.9 g/dl Normal 29.9-35.2 [facility] Comment on above: Performed By: #### C VDTBH #### [facility] [address] [place] [address] Dr. Lucho De León MCV 91.3 fL Normal 80.0-94.0 [facility] Comment on above: Performed By: #### C VDTBH #### [facility] [address] [place] [address] Dr. Lucho De León METAMYELOCYTE # Normal [facility] Comment on above: Performed By: #### C VDTBH #### [facility] [address] [place] [address] Dr. Lucho De León METAMYELOCYTE % Normal [facility] Comment on above: Performed By: #### C VDTBH #### [facility] [address] [place] [address] Dr. Luhco De León MONOM# 0.98 103/ul Critically high 0.30-0.80 [facility] Comment on above: Performed By: #### C VDTBH #### [facility] [address] [place] [address] Dr. Lucho De León MONOM% 7.0 % Normal 1.7-12.0 [facility] Comment on above: Performed By: #### C VDTBH #### [facility] [address] [place] [address] Dr. Lucho De León MPV 10.7 fL Normal 9.5-13.5 [facility] Comment on above: Performed By: #### C VDTBH #### [facility] [address] [address] [address] Lucho De León MYELOCYTE # Normal [facility] Comment on above: Performed By: #### C VDTBH #### [facility] [address] [address] [address] Lucho De León MYELOCYTE % Normal [facility] Comment on above: Performed By: #### C VDTBH #### [facility] [address] [address] [address] Lucho De León NRBC 3 Normal [facility] Comment on above: Performed By: #### C VDTBH #### [facility] [address] [address] [address] Lucho De León PLT 176 103/ul Normal 150-450 [facility] Comment on above: Performed By: #### C VDTBH #### [facility] [address] [address] [address] Lucho De León RBC 2.75 106/ul Critically low 4.70-6.10 [facility] Comment on above: Performed By: #### C VDTBH #### [facility] [address] [address] [address] Lucho De León RDW 14.2 % Normal 11.0-15.0 [facility] Comment on above: Performed By: #### C VDTBH #### [facility] [address] [address] [address] Lucho De León SEG # 10.50 103/ul Critically high 1.40-6.[address] [facility] Comment on above: Performed By: #### C VDTBH #### [facility] [address] [place] [address] Dr. Lucho De León SEG % 75.0 % Normal 43.0-75.0 [facility] Comment on above: Performed By: #### C VDTBH #### [facility] [address] [address] [address] Lucho De León WBC 14.0 103/ul Critically high 4.0-11.0 [facility] Comment on above: Performed By: #### C VDTBH #### [facility] [address] [place] [address] Dr. Lucho De León HEMOGLOBIN AND HEMATOCRITon 03-27-2022 Hematocrit (Bld) [Volume fraction] 24.4 % Critically low 42.0-54.0 [facility] Comment on above: Performed By: #### H GBHCT #### [facility] [address] [place] [address] Dr. Lucho De León Hemoglobin (Bld) [Mass/Vol] 8.3 g/dL Critically low 14.0-18.0 [facility] Comment on above: Performed By: #### H GBHCT #### [facility] [address] [place] [address] Dr. Lucho De León POINT OF CARE GLUCOSEon 03-16 Glucose [Mass/Vol] 222 mg/dL Critically high [address] [place] [address] Comment on above: Performed By: #### B MP #### [facility] [address] [place] [address] Dr. Lucho De León Glucose [Mass/Vol] 330 mg/dL Critically high [address] [place] [address] Comment on above: Performed By: #### H GBHCT #### [facility] [address] [place] [address] Dr. Lucho De León Glucose [Mass/Vol] 357 mg/dL Critically high [address] [place] [address] Comment on above: Performed By: #### A 1C #### [facility] [address] [place] [address] Dr. Lucho De León Glucose [Mass/Vol] 257 mg/dL Critically high [address] [place] [address] Comment on above: Performed By: #### M ALBR #### [facility] [address] [place] [address] Dr. Lucho De León Glucose [Mass/Vol] 330 mg/dL Critically high [address] [place] [address] Comment on above: Performed By: #### C VDTBH #### [facility] [address] [place] [address] Dr. Lucho De León PROF CHEM 8 (BAS METB)on Anion gap [Moles/Vol] 15.3 mmol/L Normal [facility] Comment on above: Performed By: #### B MP #### [facility] [address] [place] [address] Dr. Lucho De León Calcium [Mass/Vol] 7.9 mg/dL Critically low 8.5-10.1 [facility] Comment on above: Performed By: #### B MP #### [facility] [address] [address] [address] Lucho De León Chloride [Moles/Vol] 106 mmol/L Normal 98-107 [facility] Comment on above: Performed By: #### B MP #### [facility] [address] [place] [address] Dr. Lucho De León CO2 [Moles/Vol] 20.9 mmol/L Critically low 21.0-32.0 [facility] Comment on above: Performed By: #### B MP #### [facility] [address] [place] [address] Dr. Lucho De León Creatinine [Mass/Vol] 0.84 mg/dL Normal 0.70-1.30 [facility] Comment on above: Performed By: #### B MP #### [facility] [address] [place] [address] Dr. Lucho De León EGFR-AF CITIZEN OF [place] >60 Normal >=60 [facility] Comment on above: Performed By: #### B MP #### [facility] [address] [place] [address] Dr. Lucho De León EGFR-NON AF CITIZEN OF [place] >60 Normal >=60 [facility] Comment on above: Performed By: #### B MP #### [facility] [address] [place] [address] Dr. Lucho De León Glucose [Mass/Vol] 275 mg/dL Critically high 74-[address] [facility] Comment on above: Performed By: #### B MP #### [facility] [address] [place] [address] Dr. Lucho De León Potassium [Moles/Vol] 5.2 mmol/L Critically high 3.5-5.1 [facility] Comment on above: Performed By: #### B MP #### [facility] [address] [address] [address] Lcuho De León Sodium [Moles/Vol] 137 mmol/L Normal 136-145 [facility] Comment on above: Performed By: #### B MP #### [facility] [address] [address] [address] Lucho De León Urea nitrogen [Mass/Vol] 57.0 mg/dL Critically high 7.0-18.0 [facility] Comment on above: Performed By: #### B MP #### [facility] [address] [address] [address] Lucho De León Urea nitrogen/Creatinine [Mass ratio] 67.9 mg/mg Normal [facility] Comment on above: Performed By: #### B MP #### [facility] [address] [address] [address] Lucho De León TYPE AND SCREENon 03-27-2022 TYPE AND SCREEN Negative Normal [facility] Comment on above: Performed By: #### M ALBR #### [facility] [address] [address] [address] Lucho De León ABO RH RETYPEon 03-26-2022 ABO and Rh group Nom (Bld) DONE Normal [facility] Comment on above: Performed By: #### C VDTBH #### [facility] [address] [address] [address] Lucho De León AMYLASEon 03-26-2022 Amylase [Catalytic activity/Vol] 34 U/L Normal 25-115 [facility] Comment on above: Performed By: #### C BC #### [facility] [address] [address] [address] Lucho De León CBC AUTO DIFFon 03-26-2022 BASO # 0.0 103/ul Normal 0.0-0.1 [facility] Comment on above: Performed By: #### C BC #### [facility] [address] [address] [address] Lucho De León Basophils/100 WBC (Bld) 0.3 % Normal 0.2-2.0 [facility] Comment on above: Performed By: #### C BC #### [facility] [address] [place] [address] Dr. Lucho De León EO # 0.0 103/ul Normal 0.0-0.7 [facility] Comment on above: Performed By: #### C BC #### [facility] [address] [place] [address] Dr. Lucho De León Eosinophils/100 WBC (Bld) 0.3 % Critically low 0.9-7.0 [facility] Comment on above: Performed By: #### C BC #### [facility] [address] [place] [address] Dr. Lucho De León Erythrocyte distribution width (RBC) [Ratio] 13.9 % Normal 11.0-15.0 [facility] Comment on above: Performed By: #### C BC #### [facility] [address] [place] [address] Dr. Lucho De León Hematocrit (Bld) [Volume fraction] 30.5 % Critically low 42.0-54.0 [facility] Comment on above: Performed By: #### C BC #### [facility] [address] [place] [address] Dr. Lucho De León Hemoglobin (Bld) [Mass/Vol] 10.0 g/dL Critically low 14.0-18.0 [facility] Comment on above: Performed By: #### C BC #### [facility] [address] [place] [address] Dr. Lucho De León IG # 0.12 10e3/ul Critically high 0.00-0.[address] [facility] Comment on above: Performed By: #### C BC #### [facility] [address] [place] [address] Dr. Lucho De León IG % 1.0 % Critically high 0.0-0.5 [facility] Comment on above: Performed By: #### C BC #### [facility] [address] [place] [address] Dr. Lucho De León LYMPH # 1.4 103/ul Normal 1.2-3.8 [facility] Comment on above: Performed By: #### C BC #### [facility] [address] [place] [address] Dr. Lucho De León Lymphocytes/100 WBC (Bld) 12.5 % Critically low 20.5-60.0 [facility] Comment on above: Performed By: #### C BC #### [facility] [address] [place] [address] Dr. Lucho De León MANUAL DIFF REQ NO Normal [facility] Comment on above: Performed By: #### C BC #### [facility] [address] [place] [address] Dr. Lucho De León MCH (RBC) [Entitic mass] 31.2 pg Normal 25.9-34.0 [facility] Comment on above: Performed By: #### C BC #### [facility] [address] [place] [address] Dr. Lucho De León MCHC (RBC) [Mass/Vol] 32.8 g/dL Normal 29.9-35.2 [facility] Comment on above: Performed By: #### C BC #### [facility] [address] [place] [address] Dr. Lucho De León MCV (RBC) [Entitic vol] 95.0 fL Critically high 80.0-94.0 [facility] Comment on above: Performed By: #### C BC #### [facility] [address] [place] [address] Dr. Lucho De León MONO # 0.8 103/ul Normal 0.3-0.8 [facility] Comment on above: Performed By: #### C BC #### [facility] [address] [place] [address] Dr. Lucho De León Monocytes/100 WBC (Bld) 6.9 % Normal 1.7-12.0 [facility] Comment on above: Performed By: #### C BC #### [facility] [address] [place] [address] Dr. Lucho De León NEUT # 9.0 103/ul Critically high 1.4-6.5 [facility] Comment on above: Performed By: #### C BC #### [facility] [address] [place] [address] Dr. Lucho De León Neutrophils/100 WBC (Bld) 79.0 % Critically high 43.0-75.0 [facility] Comment on above: Performed By: #### C BC #### [facility] [address] [place] [address] Dr. Lucho De León Platelet mean volume (Bld) [Entitic vol] 10.2 fL Normal 9.5-13.5 [facility] Comment on above: Performed By: #### C BC #### [facility] [address] [place] [address] Dr. Lucho De León PLT 226 103/ul Normal 150-450 [facility] Comment on above: Performed By: #### C BC #### [facility] [address] [place] [address] Dr. Lucho De León RBC 3.21 106/ul Critically low 4.70-6.10 [facility] Comment on above: Performed By: #### C BC #### [facility] [address] [place] [address] Dr. Lucho De León WBC 11.4 103/ul Critically high 4.0-11.0 [facility] Comment on above: Performed By: #### C BC #### [facility] [address] [place] [address] Dr. Lucho De León CBC W MANUAL DIFFon 03-26-20 22 ATYPICAL LYMPH # Normal [facility] Comment on above: Performed By: #### M ALBR #### [facility] [address] [place] [address] Dr. Lucho De León ATYPICAL LYMPH % Normal [facility] Comment on above: Performed By: #### M ALBR #### [facility] [address] [place] [address] Dr. Lucho De León BAND # 0.3 103/ul Normal 0.0-0.3 [facility] Comment on above: Performed By: #### M ALBR #### [facility] [address] [place] [address] Dr. Lucho De León BAND % 2 % Normal 0-5 [facility] Comment on above: Performed By: #### M ALBR #### [facility] [address] [place] [address] Dr. Lucho De León BASOM # 0.00 103/ul Normal 0.00-0.10 [facility] Comment on above: Performed By: #### M ALBR #### [facility] [address] [place] [address] Dr. Lucho De León BASOM % 0.0 % Critically low 0.2-2.0 [facility] Comment on above: Performed By: #### M ALBR #### [facility] [address] [place] [address] Dr. Lucho De León BLAST # Normal [facility] Comment on above: Performed By: #### M ALBR #### [facility] [address] [place] [address] Dr. Lucho De León BLAST % Normal [facility] Comment on above: Performed By: #### M ALBR #### [facility] [address] [place] [address] Dr. Lucho De León CORRECTED WBC Normal 4.0-11.0 [facility] Comment on above: Performed By: #### M ALBR #### [facility] [address] [place] [address] Dr. Lucho De León EOS # 0.00 103/ul Normal 0.00-0.70 [facility] Comment on above: Performed By: #### M ALBR #### [facility] [address] [place] [address] Dr. Lucho De León EOS% 0.0 % Critically low 0.9-7.0 [facility] Comment on above: Performed By: #### M ALBR #### [facility] [address] [place] [address] Dr. Lucho De León HCT 20.0 % Critically low 42.0-54.0 [facility] Comment on above: Performed By: #### M ALBR #### [facility] [address] [address] [address] Lucho De León HGB 6.7 g/dl Critically low 14.0-18.0 [facility] Comment on above: Performed By: #### M ALBR #### [facility] [address] [address] [address] Lucho De León LYMPHM # 2.53 103/ul Normal 1.20-3.80 [facility] Comment on above: Performed By: #### M ALBR #### [facility] [address] [address] [address] Lucho De León LYMPHM% 17.0 % Critically low 20.5-60.0 [facility] Comment on above: Performed By: #### M ALBR #### [facility] [address] [place] [address] Dr. Lucho De León MCH 30.6 pg Normal 25.9-34.0 [facility] Comment on above: Performed By: #### M ALBR #### [facility] [address] [address] [address] Lucho De León MCHC 33.5 g/dl Normal 29.9-35.2 [facility] Comment on above: Performed By: #### M ALBR #### [facility] [address] [address] [address] Lucho De León MCV 91.3 fL Normal 80.0-94.0 [facility] Comment on above: Performed By: #### M ALBR #### [facility] [address] [address] [address] Lucho De León METAMYELOCYTE # Normal [facility] Comment on above: Performed By: #### M ALBR #### [facility] [address] [address] [address] Lucho De León METAMYELOCYTE % Normal [facility] Comment on above: Performed By: #### M ALBR #### [facility] [address] [place] [address] Dr. Lucho De León MONOM# 0.00 103/ul Critically low 0.30-0.80 [facility] Comment on above: Performed By: #### M ALBR #### [facility] [address] [place] [address] Dr. Lucho De León MONOM% 0.0 % Critically low 1.7-12.0 [facility] Comment on above: Performed By: #### M ALBR #### [facility] [address] [place] [address] Dr. Lucho De León MPV 10.9 fL Normal 9.5-13.5 [facility] Comment on above: Performed By: #### M ALBR #### [facility] [address] [place] [address] Dr. Lucho De León MYELOCYTE # Normal [facility] Comment on above: Performed By: #### M ALBR #### [facility] [address] [place] [address] Dr. Lucho De León MYELOCYTE % Normal [facility] Comment on above: Performed By: #### M ALBR #### [facility] [address] [place] [address] Dr. Lucho De León NRBC 2 Normal [facility] Comment on above: Performed By: #### M ALBR #### [facility] [address] [place] [address] Dr. Lucho De León PLT 214 103/ul Normal 150-450 [facility] Comment on above: Result Comment: Prev iously reported as: 69 On 03/26/2022 21:36 By [email or web address] Performed By: #### M ALBR #### [facility] [address] [place] [address] Dr. Lucho De León RBC 2.19 106/ul Critically low 4.70-6.10 [facility] Comment on above: Performed By: #### M ALBR #### [facility] [address] [place] [address] Dr. Lucho De León RDW 14.0 % Normal 11.0-15.0 [facility] Comment on above: Performed By: #### M ALBR #### [facility] [address] [place] [address] Dr. Lucho De León SEG # 12.07 103/ul Critically high 1.40-6.[address] [facility] Comment on above: Performed By: #### M ALBR #### [facility] [address] [place], [place] [address] Dr. Lucho De León SEG % 81.0 % Critically high 43.0-75.0 [facility] Comment on above: Performed By: #### M ALBR #### [facility] [address] [place], [place] [address] Dr. Lucho De León WBC 14.9 103/ul Critically high 4.0-11.0 [facility] Comment on above: Performed By: #### M ALBR #### [facility] [address] [place], [place] [address] ABD/PELV W [...] ROSARIO BLANCO Date: 2022-03-26 05:29 Normal [facility] Covid-19 PCR (CVDTBH)on 03-16 SARS-CoV-2 (COVID-19) RNA IVANNA+probe Ql (Unsp spec) Not detected Normal NOT DETECTED [facility] Comment on above: Result Comment: When diagnostic [...] for this test is supported by the [employer] of [employer] and Human Service's declaration that [...] used). Performed By: #### C VDTBH #### [facility] [address] [place] [address] Dr. Lucho De León ER URINE PROFILEon 2 Bilirubin Ql (U) Negative Normal NEGATIVE [facility] Comment on above: Performed By: #### A 1C #### [facility] [address] [place] [address] Dr. Lucho De León Clarity (U) CLEAR Normal CLEAR [facility] Comment on above: Performed By: #### A 1C #### [facility] [address] [place] [address] Dr. Lucho De León Color (U) LT. YELLOW Normal YELLOW [facility] Comment on above: Performed By: #### A 1C #### [facility] [address] [place] [address] Dr. Lucho MELGAR A micrscopic examination will be performed if indicated. Normal [facility] Comment on above: Performed By: #### A 1C #### [facility] [address] [place] [address] Dr. Lucho De León Glucose Ql (U) >1000 Abnormal NEGATIVE [facility] Comment on above: Performed By: #### A 1C #### [facility] [address] [place] [address] Dr. Lucho De León Hemoglobin Ql (U) Negative Normal NEGATIVE [facility] Comment on above: Performed By: #### A 1C #### [facility] [address] [place] [address] Dr. Lucho De León Ketones Ql (U) 15 mg/dl Abnormal NEGATIVE [facility] Comment on above: Performed By: #### A 1C #### [facility] [address] [place] [address] Dr. Lucho De León LEUKOCYTES Negative Normal NEGATIVE [facility] Comment on above: Performed By: #### A 1C #### [facility] [address] [place] [address] Dr. Lucho De León Nitrite Ql (U) Negative Normal NEGATIVE [facility] Comment on above: Performed By: #### A 1C #### [facility] [address] [place] [address] Dr. Lucho De León pH (U) 5.0 [pH] Normal 5-9 [facility] Comment on above: Performed By: #### A 1C #### [facility] [address] [place] [address] Dr. Lucho De León SPEC GRAVITY <=1.005 Abnormal 1.005-<=1.025 [facility] Comment on above: Performed By: #### A 1C #### [facility] [address] [place] [address] Dr. Lucho De León UA PROTEIN Negative Normal NEGATIVE/ TRACE [facility] Comment on above: Performed By: #### A 1C #### [facility] [address] [place] [address] Dr. Lucho De León UR MICRO IND NOT INDICATED Normal [facility] Comment on above: Performed By: #### A 1C #### [facility] [address] [place] [address] Dr. Lucho De León Urobilinogen Qn (U) 0.2 {Danny'U}/dL Normal 0.2 - 1. 0 [facility] Comment on above: Performed By: #### A 1C #### [facility] [address] [place] [address] Dr. Lucho De León LIPASEon 03-26-2022 Lipase [Catalytic activity/Vol] 69.0 U/L Critically low 73.0-393.0 [facility] Comment on above: Performed By: #### C BC #### [facility] [address] [place] [address] Dr. Lucho De León OCC BLD IMMUNO SCREENon 03-16 OCCULT BLOOD Positive Abnormal NEGATIVE [facility] Comment on above: Performed By: #### H GBHCT #### [facility] [address] [place] [address] Dr. Lucho De León POINT OF CARE GLUCOSEon 03-16 Glucose [Mass/Vol] 271 mg/dL Critically high 74-106 T [facility] Comment on above: Performed By: #### B MP #### [facility] [address] [place] [address] Dr. Lucho De León PROF 14(COMP METB)on 022 Albumin [Mass/Vol] 2.7 g/dL Critically low 3.4-5.0 [facility] Comment on above: Performed By: #### C VDTBH #### [facility] [address] [place] [address] Dr. Lucho De León ALP [Catalytic activity/Vol] 53 U/L Normal 46-116 [facility] Comment on above: Performed By: #### C VDTBH #### [facility] [address] [place] [address] Dr. Lucho De León ALT [Catalytic activity/Vol] 18 U/L Normal 16-63 [facility] Comment on above: Performed By: #### C VDTBH #### [facility] [address] [place] [address] Dr. Lucho De León Anion gap [Moles/Vol] 18.7 mmol/L Normal [facility] Comment on above: Performed By: #### C VDTBH #### [facility] [address] [place] [address] Dr. Lucho De León AST [Catalytic activity/Vol] 14 U/L Critically low 15-37 [facility] Comment on above: Performed By: #### C VDTBH #### [facility] [address] [place] [address] Dr. Lucho De León Bilirubin [Mass/Vol] 0.2 mg/dL Normal 0.2-1.0 [facility] Comment on above: Performed By: #### C VDTBH #### [facility] [address] [place] [address] Dr. Lucho De León Chloride [Moles/Vol] 99 mmol/L Normal 98-107 [facility] Comment on above: Performed By: #### C VDTBH #### [facility] [address] [place] [address] Dr. Lucho De León CO2 [Moles/Vol] 18.3 mmol/L Critically low 21.0-32.0 [facility] Comment on above: Performed By: #### C VDTBH #### [facility] [address] [place] [address] Dr. Lucho De León Creatinine [Mass/Vol] 0.75 mg/dL Normal 0.70-1.30 [facility] Comment on above: Performed By: #### C VDTBH #### [facility] [address] [place] [address] Dr. Lucho De León Globulin (S) [Mass/Vol] 2.6 g/dL Normal [facility] Comment on above: Performed By: #### C VDTBH #### [facility] [address] [place] [address] Dr. Lucho De León Glucose [Mass/Vol] 323 mg/dL Critically high 74-106 T [facility] Comment on above: Performed By: #### C VDTBH #### [facility] [address] [address] [address] Lucho De León Potassium [Moles/Vol] 5.0 mmol/L Normal 3.5-5.1 [facility] Comment on above: Performed By: #### C VDTBH #### [facility] [address] [place] [address] Dr. Lucho De León Protein [Mass/Vol] 5.3 g/dL Critically low 6.4-8.2 [facility] Comment on above: Performed By: #### C VDTBH #### [facility] [address] [place] [address] Dr. Lucho De León Sodium [Moles/Vol] 131 mmol/L Critically low 136-145 [facility] Comment on above: Performed By: #### C VDTBH #### [facility] [address] [place] [address] Dr. Lucho De León Urea nitrogen [Mass/Vol] 65.0 mg/dL Critically high 7.0-18.0 [facility] Comment on above: Performed By: #### C VDTBH #### [facility] [address] [place] [address] Dr. Lcuho De León Urea nitrogen/Creatinine [Mass ratio] 86.7 mg/mg [facility] Comment on above: Performed By: #### C VDTBH #### [facility] [address] [place] [address] Dr. Lucho De León Albumin [Mass/Vol] 3.0 g/dL Critically low 3.4-5.0 [facility] Comment on above: Performed By: #### C BC #### [facility] [address] [place] [address] Dr. Lucho De León Albumin/Globulin [Mass ratio] 1.0 {ratio} Normal [facility] Comment on above: Performed By: #### C VDTBH #### [facility] [address] [address] [address] Lucho De León Performed By: #### C BC #### [facility] [address] [place] [address] Dr. Lucho De León ALP [Catalytic activity/Vol] 64 U/L Normal 46-116 [facility] Comment on above: Performed By: #### C BC #### [facility] [address] [address] [address] Lucho De León ALT [Catalytic activity/Vol] 20 U/L Normal 16-63 [facility] Comment on above: Performed By: #### C BC #### [facility] [address] [place] [address] Dr. Lucho De León Anion gap [Moles/Vol] 14.2 mmol/L Normal [facility] Comment on above: Performed By: #### C BC #### [facility] [address] [place] [address] Dr. Lucho De León AST [Catalytic activity/Vol] 11 U/L Critically low 15-37 [facility] Comment on above: Performed By: #### C BC #### [facility] [address] [place] [address] Dr. Lucho De León Bilirubin [Mass/Vol] 0.3 mg/dL Normal 0.2-1.0 [facility] Comment on above: Performed By: #### C BC #### [facility] [address] [place] [address] Dr. Lucho De León Calcium [Mass/Vol] 8.3 mg/dL Critically low 8.5-10.1 [facility] Comment on above: Performed By: #### C VDTBH #### [facility] [address] [place] [address] Dr. Lucho De León Performed By: #### C BC #### [facility] [address] [place] [address] Dr. Lucho De León Chloride [Moles/Vol] 102 mmol/L Normal 98-107 [facility] Comment on above: Performed By: #### C BC #### [facility] [address] [place] [address] Dr. Lucho De León CO2 [Moles/Vol] 23.4 mmol/L Normal 21.0-32.0 [facility] Comment on above: Performed By: #### C BC #### [facility] [address] [place] [address] Dr. Lucho De León Creatinine [Mass/Vol] 0.81 mg/dL Normal 0.70-1.30 [facility] Comment on above: Performed By: #### C BC #### [facility] [address] [place] [address] Dr. Lucho De León EGFR-AF CITIZEN OF [place] >60 Normal >=60 [facility] Comment on above: Performed By: #### C VDTBH #### [facility] [address] [place] [address] Dr. Lucho De León Performed By: #### C BC #### [facility] [address] [place] [address] Dr. Lucho De León EGFR-NON AF CITIZEN OF [place] >60 Normal >=60 [facility] Comment on above: Performed By: #### C VDTBH #### [facility] [address] [place] [address] Dr. Lucho De León Performed By: #### C BC #### [facility] [address] [place] [address] Dr. Lucho De León Globulin (S) [Mass/Vol] 3.0 g/dL Normal [facility] Comment on above: Performed By: #### C BC #### [facility] [address] [place] [address] Dr. Lucho De León Glucose [Mass/Vol] 261 mg/dL Critically high 74-106 T [facility] Comment on above: Performed By: #### C BC #### [facility] [address] [place] [address] Dr. Lucho De León Potassium [Moles/Vol] 4.6 mmol/L Normal 3.5-5.1 [facility] Comment on above: Performed By: #### C BC #### [facility] [address] [place] [address] Dr. Lucho De León Protein [Mass/Vol] 6.0 g/dL Critically low 6.4-8.2 [facility] Comment on above: Performed By: #### C BC #### [facility] [address] [place] [address] Dr. Lucho De León Sodium [Moles/Vol] 135 mmol/L Critically low 136-145 [facility] Comment on above: Performed By: #### C BC #### [facility] [address] [place] [address] Dr. Lucho De León Urea nitrogen [Mass/Vol] 56.0 mg/dL Critically high 7.0-18.0 [facility] Comment on above: Performed By: #### C BC #### [facility] [address] [place] [address] Dr. Lucho De León Urea nitrogen/Creatinine [Mass ratio] 69.1 mg/mg Normal [facility] Comment on above: Performed By: #### C BC #### [facility] [address] [place] [address] Dr. Lucho De León PROTIMEon 03-26-2022 INR Coag (PPP) [Relative time] 0.99 {INR} Normal [facility] Comment on above: Performed By: #### M ALBR #### [facility] [address] [place] [address] Dr. Lucho De León INR GUIDELINES SEE BELOW Normal [facility] Comment on above: Result Comment: HANS RED INR: 2.0 - 3.0 CONDITIONS NOT LISTED BELOW 2.5 - 3.5 FOR PROSTHETIC HEART VALVE REPLACEMENT 2.5 - 3.5 RECURRENT THROMBOSIS Performed By: #### M ALBR #### [facility] [address] [place] [address] Dr. Lucho De León PT Coag (PPP) [Time] 10.7 s Normal 9.0-11.6 [facility] Comment on above: Performed By: #### M ALBR #### [facility] [address] [place] [address] Dr. Lucho De León PTTon 03-26-2022 aPTT Coag (Bld) [Time] 20.8 s Critically low 22.3-36.2 [facility] Comment on above: Performed By: #### M ALBR #### [facility] [address] [place] [address] Dr. Lucho De León XR ABD FLAT [...] ROSARIO BLANCO Date: 2022-03-26 05:15 Normal [facility] Coding Summaryon 11-08-2021 Coding Summary HTMLBase 64 TqrcgnfkUKs2iOr+PGhl YWQ+LH9BMHZsH98qtTXs tM9UD3uZFD2ACWNYKTQN WL3TCS1mpTL9FXlmA0Dq biAv IuktvDBbGO63VCj6XKW5 fTlfBBcymK0skTAeT0s6 PaNgMN36tD11TVmdFHFf QlI5GxHsxsbwdXBi W4flToYnjOVvRcc+PHRh YmxlIHdpZHRoPScxMDAl TtLddNbmCJ3nQj7gIGDc LWNvbGxhcHNlOiBj t3lfCKXqMAzoJN2olOuu D9QvgDA3MLVvo8a0Gk88 dHI+DGJgIOU2qDvxPPmn h381GzNai8puDVN3 oQJnKGedRHD9N78mz7V2 NMEzHVKnJBB1zWB9qP9m yPjcprcsI7GgnCUwSdL9 MPV4eVDfdW8ifYis skwttF4cVbf+O57XDN4Q AMQIKY7VSjr1T6WnWxwp dHI+MC25EHWuKZ63cQTa xBBkb3eqfQl2CgKk BRCfXRY7nIuiCBoog4De HPBmE84bkWNxy0R1EJYv zSopmQUtUkPkpWT9zV5l LPkelzffg2cqbxso Rcukf9mfeg57eR03R62q UCgeOHOoWOC2YHHxOPQx vMvijo8niD2fJy1+IDxj v9pis0kwiCt6JaSb BWQdtfRmcXdbAZF8z9Bk Jj10X5EwrPmwt0FuCmy4 pe32pWAsm4W0iHU8MPfl GUClcQ0dISdbOcW3 KJVqNxUebK33nOCnLXiz Dl7ccUtrsXivQE3aOQOg kjirSYOtqQ3mYOZuaLQq rCssJE2rMPJpwgqn x162WzVsUQW5DBCluVDw U9JklK1hDxIfRLZeBXGh K9CcqWSyMIhmN640GUlx RpO9SSWmmuMwB7Ut XXYgsApdZwH8z4S6Iy7P w2MfzcpwRHX3SLflVHFu HhA2DbShAoN4Q7NlRin8 NMMnlRpfSG2kK9Hg VIMagadgxjcjbBX9TZCf ZJNmpC47dMJcAWhjZf4a a1J6k027CYJtNLUsvM60 Ga2meQykLEUhpZJL gS5pruexf7uldagbIuHg CYDeXMh3DTb3RGQehCtw AvJcCHM9VxJ6GEB5hSSe iM8izKljmqrfkY0b Oyc+N84pwL2iXYS3NEF5 dkxmXKOqioEiPC26GL69 E7BdYffhfVGxvDW+PGRp hgChqNnaUS8zIpPr w0vby4AwMUxtT4BlLRHb RZaxSzc6XRUnIJW1aCX9 sN0jPGZyXJxki5C9gTL2 Q0HunpIubj7ju4kr TQXvHKuuA31mhFGpp9B7 AYEliFZ0ZNAtmZynXoWi zL96Yde+EVLrgTvwk4Fu Rqefu8lji4clwSi4 IjMwJSIgdmFsaWduPSJ0 c7ZwBn92F56nAKvkBBBb QIDwCQKyYNWsaNqsam0l fL0sQr9+PGNvbCB3 yAY2zF0gVHEsMkB9AEzn G188BeSiyEJwUdrzk4ft h9mqtUx1VfYdRZWkvyQy yHsoEML4z9RoFf60 B32bNDqsFNMbCLWdQFYl PROreNayhe5ywJ9wJa6+ BL4se6rptl27eF50oSH+ ODGkFEI8zAcgMRog NSLqzY3eUThsIdP0XULq CoMckZ26iQHkMGbgId9x fMcvuWtxIP1tHNZtqzuc r333LrKtn6wqSXUy xABpHLomLOC9A42sh6N8 UXTrMPZySLK6aCE5yG1n bGlnbjogbGVmdDsgdmVy vZheGXjvRWvfY353 IHRvcDsnPlBhdGllbnQg RoWbNPy7D2VpJwh6TAUc wKslWO5miRHuVVpnYq4n hCmaeGpnTE3vMTOf facvl381UaMdu3vvTJGz lRMnABezGKZ2U15my2Z0 BHCyPOVcTFZ2nQH7fU4s bGlnbjogbGVmdDsg kzYkqNugNNedKYkzU827 IHRvcDsnPkJpcnRoIERh mON1MT13WK92uZTtb1H4 dUT6V7EzUWUtogup flyyoOJ1RNFjORZtsP09 Nb2zbOwfQx4kQKHiLLM9 PEUqoDDbQ9OlzC1wUzOd WFUyZQHrL2CwgGNj QFgxR219RIbtEqM6APLe slOnD3RdVCSxjMabLcJ7 d1E5Yi2DY5P8GG05GK71 pLUfb0C8bCX0U8Qf TSXvyavupvgeyON2NFWq CTLmvJ15Fc1kpTrtRy3n MNLnHUK2QCIsiSQyM8Po kZ4qWcCsFXMgRUQi Z6FnxSVgUHavT536CSrm MwO5DVBxppZgG3IbAWHm xTzlSyC4j1P6Bp5UCUu0 ZE54CP42rOFhs8Y4 wVM4E9MmHEZgkrutwfxb dEO0OHIdJOYlnK71Wv5h yZgxXw7wTEKkWWA1HVRe rPNsH4PbeD7qCxPd WBUuIPApI8GayBHbUWqm E168ZYidIyE1DPYofkBn E3JfGQRtvRmqDcV1p1Y2 Zb5LEIBoUR72ZBZ0 vDE6TD13EY57Z8PiMmci dGFibGU+PHRhYmxlIHdp ZHRoPScxMDAlJyBzdHls LL8nVk0jBHHfDMDu eSnitSZjSlSid4jyZVHh JVrjBI9njBaxP1QxwQH6 LDVni6j2Dq44E31pH3Gx dXA+IFWmeRL8kUS8 lF1xIfZuPhY5WPsgG779 QmIrdJLlLodxh4ymw9as jNb7IdG9WJCqfwIojFrm XWV2r1VvEf92D39r IHdpZHRoPSIxNSUiIHZh cYwyjf8zcA6pJj8+PGNv rHI1cCN8zM5iEdNtPpW7 MZlwT233HmVxwJJw Lcsid0snh5rwiPd2XmEc EBRgvqQalForZRU2i6Fg In06P7JauSbmx2UtRqa4 lf72vHFqv8Q4vEW3 N0PpYEJgrzulfOSonDra VI9dYEOhtbkqRHWttN6m ZCFlK0j8FiUrQiY4VOzy T4YqfsK8MMYrwULm UVeuDDC0L21sn8I1FXTb ZLOzUPR3jSC2wY1boGxq bjogbGVmdDsgdmVydGlj REqsHBytF846VYAl dNbgZSJaaZ7gXIHnfQLf mOhnCR0uOYVmgkxuRlXP TklPTiwgVEVERFkgSjwv dGQ+JRGrVRW7tPfb NRbyBNEvlN5hFLIrB4q3 EfSjRxO9BHgoM5YeOQQg mcjtBu14rT8dWjKvRhR1 THznL5LonnO7OYAq eTLjDGwhIFV1A41te5S1 INOqBBHhMZN4dMI2zS0o bGlnbjogbGVmdDsgdmVy lTofILipGFlkP901 ZLArsRqdBvM1QgBdUeK6 ABM9Z9EbKqx5JBWukRrj OV0orVCfZSezCm5ioKfd wZntMW2aNDAfsmlo TKAmmJ2eBHWiuIJqeGkz BT2pTFCxemkhd103EdNd CMG6KIBiwVMnM7CvkB1d BhUkAFMfADXrX7Gp mOEcKGqwX208HZzdCtE4 PKVupxDeD7YcFBYalZvk LsG7p9B2Pr66XTUNVBNj czwvdGQ+PHRkIHN0 eCjcKMpzHWSprP7mWNQu G6n6NwYyVfV2ASjkK4Ge BAQgflkyKa54vR9zOqRv ZdD4BWxxR2JgxgV8 OJPrxZCnHMhmPZC0C37e f2N4IKUfAAZmMNE3vVX6 wH2muIhgcakvtNLcvFku dmVydGljYWwtYWxp E120DYNoqDfoGc7USFM1 J9MmQyj6TFRklYbmNY6f jFMyVTqdLn8bfHefyErn BM7yJHOascwjCJVs bD4oTNLtbRZgfEcvYR3c KVBkdtoms845RvDoDFU1 MGQlcELzB8YoeF5dTjSo UDJmSVVdL8JmePIu RZojG543AMxmYtD8CJIy unMkJ2ToLACglUtwLmW1 i4A0Qt0UMUpgsLL+PC90 gl10U9IqWbafTut8 HMBlKMQ0nPI6mX5fIADp HTccm4T9wWZ2C2UxmlBv ht0xs0obDCTeMAdrF79w sGSun7Z0LZFhfPZ5 RUJktWzwPqNwhG86Usb+ VUIhqJhbh6ViVzgnp8ef o3pztNt3RnFbBGFsvdTn vUddDYW9g1EkEy33 M53dBWeqBDRaDBIzZWDe DYGurCtigo2sqT8gSr1+ ZSDdsMK9sCB3fK6nOqCq PjV8MYgzO402KqYh yGNjZhkdy2tat3lkcXv6 IjIwJSIgdmFsaWduPSJ0 u1WjCd44R7XqvOtar1Cp Tmv3kp44pYKst5P7 wLP4K6BnTWUnnwutfUWl nLetRB6wFPKixmtvNSQr kV1qSFJgZ2b8SmAhGsT4 XXbyS1ZyrrL5SZKh aRXaHUNsrTREhP2bjvre s1daacatFlCdRNYjWDq7 RMb9JPHwsFzeVvSkTLS7 LwQ6LUL0jXCarH0t tCzkziphcZ5kVvz+UGh5 q1egzUHlYC1czWP1WH99 SL59lPIxi7U8hSH1V1Gf ZGRpbmctcmlnaHQ6 AUZyKACdnC49Jk0qxIdw Lr4tQQDtIYI0WFFhvRTy Z3EmnL0aCaVfKZCwQDAi T3AczJTdKGirH549 POquGlR4VDEwgyVvQ4Ms BFOwcXqtUyE2f7S8Zi4H GF97GD44LM03dAHaq9I6 xEU8O4BjRLVhpyhx hpnetGX5EHAwVVSumX16 Kj7zlMkvZq7tIXRkZUG0 IYRjzOFgF2OkvU3tMrZw VFZlISEaG8KdcHSg YKjoL645SBtcHfB5KNLa rlBrV1PaNLWprOjkYwP0 d0J6Kw8MQf20OH42ET99 nFYty9G3jOI1Q3Ar GANnqmrxjwyrmAM6KREh AWEzlZ58Dp9zcTjpTb5o XGKfFMV3TIItzHTxB1Va zU3kZbYoYOTuFCAi Y2XvuKViCYepJ464CZad ShU0UQWkryUbS8YkGYAo tJwsCuZ7q9K4Mo9HQUse kxk2Q1XaBfoprLE+ IL89EGFpQD97pMAigVMa h0vslDa4ZfSrBAGaCKE0 pUdvNTfhf8TcZUDuV17w vSQsj6J3XLLikStd cHN (more content not included)... [facility] Provider Orderson 11-04-2021 Provider Orders [id number] [facility] Vital Signs Date Time Vital Sign Value Performing Clinician Facility 11-29-2023 15:28-0500 Body height 170.2 cm Tonya Dye POLITICAL ANALYST Work Phone: [facility] 11-29-2023 15:28-0500 Body mass index (BMI) [Ratio] 28.54 kg/m2 Tonya Dye POLITICAL ANALYST Work Phone: [facility] 11-29-2023 15:28-0500 Body temperature 97.11 [degF] Tonya Dye POLITICAL ANALYST Work Phone: [facility] 11-29-2023 15:28-0500 Body weight 82.64 kg Tonya Dye POLITICAL ANALYST Work Phone: [facility] 11-29-2023 15:28-0500 Diastolic blood pressure 80 mm[Hg] Tonya Pereraz POLITICAL ANALYST Work Phone: [facility] 11-29-2023 15:28-0500 Heart rate 99 /min Tonyavasile Pereraz POLITICAL ANALYST Work Phone: [facility] 11-29-2023 15:28-0500 Respiratory rate 20 /min Tonyavasile Pereraz POLITICAL ANALYST Work Phone: [facility] 11-29-2023 15:28-0500 SaO2% (BldA) [Mass fraction] 97 % Tonya Dye POLITICAL ANALYST Work Phone: [facility] 11-29-2023 15:28-0500 Systolic blood pressure 138 mm[Hg] Tonya Aminholz POLITICAL ANALYST Work Phone: [facility] 08-30-2022 14:47-0500 Blood Pressure Location Bernadine CASANDRAL [facility] [place] 08-30-2022 14:47-0500 Diastolic blood pressure 82 mm[Hg] Bernadine NILL [facility] [place] 08-30-2022 14:47-0500 Heart rate 76 /min Bernadine NILL [facility] [place] 08-30-2022 14:47-0500 Respiratory rate 16 /min Bernadine NILL [facility] [place] 08-30-2022 14:47-0500 Systolic blood pressure 138 mm[Hg] Bernadine NILL [facility] [place] 08-19-2021 14:30-0400 Body height 170.18 cm Shen Luis Other [employer] Other 08-19-2021 14:30-0400 Body mass index (BMI) [Ratio] 31.04 kg/m2 Shen Olexa Other [employer] Other 08-19-2021 14:30-0400 Body weight 89.9 kg Shen Olexa Other [employer] Other 07-29-2021 14:30-0400 Body height 170.18 cm Shen Olexa Other [employer] Other 07-29-2021 14:30-0400 Body mass index (BMI) [Ratio] 31.32 kg/m2 Shen Olexa Other [employer] Other 07-29-2021 14:30-0400 Body weight 90.72 kg Shen Olexa Other [employer] Other Encounters Encounter Date Encounter Type Care Provider Facility Start: 06-04-2024 End: 06-04-2024 ambulatory TONYA AICHHOLZ Not Available Start: 04-29-2024 End: 04-29-2024 ambulatory [facility] Start: 04-04-2024 End: 04-04-2024 ambulatory TONYA AICHHOLZ Not Available Start: 03-29-2024 End: 03-29-2024 ambulatory [facility] Start: 03-14-2024 End: 03-14-2024 ambulatory TONYA AICHHOLZ Not Available Start: 02-27-2024 End: 02-27-2024 ambulatory TONYA AICHHOLZ Not Available Start: 02-08-2024 End: 02-08-2024 ambulatory [facility] Start: 01-16-2024 End: 01-16-2024 ambulatory TONYA AICHHOLZ Not Available Start: 01-15-2024 End: 01-15-2024 ambulatory LYNN VALLECILLO Not Available Start: 01-03-2024 End: 01-03-2024 ambulatory RANULFO BAGLEY Not Available Start: 12-27-2023 End: 12-27-2023 ambulatory Ranulfo Bagley Facility:[facility] Start: 12-26-2023 End: 12-26-2023 ambulatory RANULFO BAGLEY Not Available Start: 12-20-2023 End: 12-20-2023 ambulatory Ranulfo Bagley Facility:[facility] Start: 12-18-2023 End: 12-18-2023 ambulatory LYNN VALLECILLO Not Available Start: 11-29-2023 End: 11-29-2023 Office outpatient visit 25 minutes Tonya Dye POLITICAL ANALYST Work Phone: [facility] Comment on above: Primary hypertension (CMS/HCC) (Primary Dx); BMI 29.0-29.9,adult; Type 2 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, without long-term current use of insulin, unspecified laterality, unspecified retinopathy severity (CMS/HCC); Type 2 diabetes mellitus with diabetic neuropathy, without long-term current use of insulin ([facility]); Sebaceous cyst; 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; Ageusia; Peripheral vascular disease, unspecified (I73.9) Start: 11-29-2023 End: 11-29-2023 ambulatory TONYA DYE Not Available Start: 11-29-2023 Bamboo flowsheet Tonya Dye POLITICAL ANALYST Work Phone: [facility] Start: 11-29-2023 Bamboo flowsheet Tonya Dye POLITICAL ANALYST Work Phone: [facility] Start: 10-31-2023 Preprocedural examination done Tonya Dye POLITICAL ANALYST Work Phone: [facility] Start: 10-31-2023 End: 10-31-2023 ambulatory RANULFO BAGLEY Not Available Start: 10-24-2023 Office outpatient vi sit 15 minutes [facility] Start: 10-24-2023 End: 10-24-2023 ambulatory Tonya Dye Work Phone: [facility] Work Phone: Start: 10-24-2023 End: 10-24-2023 Patient encounter procedure Tonya Dye Work Phone: [facility] Start: 09-15-2023 End: 09-15-2023 ambulatory KRISHNA VALDES Not Available Start: 01-31-2023 End: 02-01-2023 ambulatory OLI DYE Facility:[facility] Start: 01-27-2023 End: 01-28-2023 ambulatory OLI CAMARGO HARDIK Facility:[facility] Start: 12-21-2022 End: 12-22-[address] OMID RICKS Facility:[facility] Start: 11-20-2022 Encounter for other preprocedural examination MR KRISHNA VALDES . [facility] Start: 11-18-2022 End: 11-19-2022 ambulatory MR KRISHNA VALDES . Facility:[facility] Start: 11-18-2022 End: 11-19-2022 Encounter for other preprocedural examination MR KRISHNA VALDES . Facility:[facility] Start: 10-25-2022 End: 10-26-2022 ambulatory Bernadine R CASANDRAL Facility:[facility] Start: 10-25-2022 End: 10-25-2022 Patient encounter procedure Bernadine R NILL General Surgery Nill[facility] Start: 10-12-2022 End: 10-13-2022 ambulatory Bernadine R NILL Facility:[id number] Start: 10-07-2022 ambulatory OLI DYE Facil ity:[facility] Start: 09-22-2022 End: 09-23-2022 ambulatory OLI AMINYULIANAMelva Facility:[facility] Start: 08-30-2022 End: 08-31-2022 ambulatory Bernadine R NILL Facility:[facility] Start: 08-30-2022 End: 08-30-2022 Patient encounter procedure Bernadine R NILL General Surgery Nill/[facility] Start: 08-03-2022 ambulatory [facility]ATT [facility] Start: 06-21-2022 End: 06-22-[address] OMID [...] 12-16-2021 End: 12-16-2021 ambulatory Shen Olexa Other [employer] Other Start: 12-16-2021 Telephone encounter Shen Olexa [facility] Start: 12-14-2021 End: 12-14-2021 ambulatory Shen Olexa Other [employer] Other Start: 12-14-2021 Office outpatient vi sit 15 minutes Shen Olexa [facility] Start: 08-19-2021 End: 08-19-2021 ambulatory Shen Olexa Other [employer] Other Start: 08-19-2021 Office outpatient vi sit 10 minutes Shen Olexa [facility] Start: 08-11-2021 Telephone encounter Krishna Bach rg [facility] Start: 07-29-2021 Office outpatient ne w 30 minutes Shen Olexa [facility] Procedures Date Procedure Procedure Detail Performing Clinician Start: 03-29-2024 Follow-up visit Follow-up LEAH SALGADO Start: 10-24-2023 Plain X-ray of bilat eral elbows Tonya Dye Work Phone: Start: 01-27-2023 PSA screening OLI DYE Comment on above: Performed By: #### B MP #### [facility] [address] [address] [address] Lucho De León Start: 10-12-2022 Excisional biopsy Blair PLATT Start: 03-28-2022 Inspection of Lower Intestinal Tract, Via Natural or Artificial Opening Endoscopic DYE AND CHEMICAL COORDINATOR TONYA NEPTALITuckerBRETT Start: 03-28-2022 Inspection of Upper Intestinal Tract, Via Natural or Artificial Opening Endoscopic DYE AND CHEMICAL COORDINATOR TONYA HARDIK Start: 03-26-2022 Transfusion of Nonau tologous Red Blood Cells into Peripheral Vein, Percutaneous Approach DYE AND CHEMICAL COORDINATOR TONYA HARDIK Start: 11-10-2021 Endarterectomy and angioplasty of common femoral artery Bernadine PLATT Start: 03-09-2021 Angioplasty of super ficial femoral artery Bernadine PLATT Start: 10-16-2016 Colonoscopy Tonya myers NP Work Phone: Repair of musculoten dinous cuff of shoulder Bernadine PLATT Plan of Treatment Date Care Activity Detail Author Start: 10-16-2026 Screening for malign ant neoplasm of colon [facility] Start: 11-22-2024 Glaucoma screening Diabetes: R etinopathy Screening [facility] Start: 02-27-2024 End: 02-27-2024 Patient encounter procedure 02/27/2024 3:00 PM EDT Office Visit [facility] [address] [place] [phone] Tonya Dye, POLITICAL ANALYST [address] [place] [phone] [facility] Start: 01-28-2024 Urine screening for protein Diabetes: Urine Protein Screening [facility] Start: 11-29-2023 End: 11-29-2023 Patient encounter procedure 11/29/2023 3:20 PM EST Office Visit [facility] [address] [place] [phone] Tonya Dye, POLITICAL ANALYST [address] [place] [phone] Arrived [facility] Comment on above: Arrived Start: 11-29-2023 End: 11-29-2024 CT Maxillofacial region WO and W contrast IV CT SINUS WO IV CONTRAST Imaging Routine 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 [facility] Expected: 11/29/2023 (Approximate), Expires: 11/29/2024 [facility] Comment on above: Expected: 11/29/2023 (Approximate), Expires: 11/29/2024 Start: 11-29-2023 Hemoglobin A1c measurement Diabetes: Hemoglobin A1C [facility] Start: 11-29-2023 End: 11-29-2024 Hemoglobin A1c/Hemoglobin.total in Blood Hemoglobin A1c Lab Routine Type 2 diabetes mellitus with diabetic neuropathy, without long-term current use of insulin ([facility]) Expected: 11/29/2023 (Approximate), Expires: 11/29/2024 [facility] Work Phone: Comment on above: Expected: 11/29/2023 (Approximate), Expires: 11/29/2024 Start: 04-15-2023 Glaucoma screening Diabetes: R etinopathy Screening [facility] Start: 1950 Medicare Annual Well ness (AWV) Medicare Annual Wellness (AWV) [facility] Start: 1950 Screening for malign ant neoplasm of colon [facility] Immunizations Immunization Date Immunization Notes Care Provider Fa [facility] 08-03-2023 Influenza, High-dose Seasonal, Quadrivalent, Preservative Free Tonya Aichholz POLITICAL ANALYST Work Phone: [facility] 12-17-2022 zoster vaccine recombinant Tonya Aichholz POLITICAL ANALYST Work Phone: [facility] 07-27-2022 influenza, injectabl e, quadrivalent, preservative free Tonya Aichholz POLITICAL ANALYST Work Phone: [facility] 07-29-2021 Kenalog -40 mg Shen Olexa Other [employer] Other 12-24-2020 COVID-19 Ad26.COV2.S (Venkatesh) Tonya Aichholz Work Phone: [facility] 09-07-2020 pneumococcal polysaccharide vaccine, 23 valent Shen Olexa Other [employer] Other 06-30-2020 influenza, injectabl e, quadrivalent, preservative free Tonya Aichholz POLITICAL ANALYST Work Phone: [facility] 06-30-2020 influenza, seasonal, injectable Shen Olexa Other [employer] Other 08-07-2019 pneumococcal conjuga te vaccine, 13 valent Shen Olexa Other [employer] Other 07-25-2019 influenza, high dose seasonal, preservative-free Tonya Aichholz POLITICAL ANALYST Work Phone: [facility] 08-26-2017 zoster vaccine, live Tonya chholz POLITICAL ANALYST Work Phone: [facility] 08-01-2003 tetanus toxoid, adsorbed Tonya Aichholz POLITICAL ANALYST Work Phone: [facility] Payers Date Payer Category Payer Self-pay [id number] 2017 Unknown GENERIC OTHER GE NERIC OTHER [id number] 2017-Present [phone] [place] [id number]. [id number] 2016 Medicare MEDICARE MEDICAR E PART B [id number] 2016-[place] [place] [address] Medicare [id number]. [id number] 1959 Medicare [id number] 2.16.840.1.293153.19 1959 Unknown [id number] 2.16.840.1.908815.19 1951 Unknown [id number] 2.16.840.1.806317.3.579.2.72 7 1951 Unknown [id number] 2.16.840.1.852751.3.579.2.72 7 1951 Unknown [id number] 2.16.840.1.467359.3.579.2.72 7 1951 Unknown [id number] 2.16.840.1.424612.3.579.2.72 7 1951 Unknown [id number] 2.16.840.1.274521.3.579.2.59 3 1951 Unknown [id number] 2.16.840.1.915326.3.579.2.59 3 1951 Unknown [id number] 2.16.840.1.430023.3.579.2.59 3 1951 Unknown [id number] 2.16.840.1.109389.3.579.2.59 3 1951 Unknown [id number] 2.16.840.1.968768.3.579.2.59 3 1951 Unknown [id number] 2.16.840.1.313947.3.579.2.59 3 1951 Unknown [id number] 2.16.840.1.897109.3.579.2.59 3 1951 Unknown [id number] 2.16.840.1.144423.3.579.2.59 3 1951 Unknown [id number] 2.16.840.1.183389.3.579.2.59 3 1951 Unknown [id number] 2.16.840.1.740311.3.579.2.59 3 1951 Unknown [id number] 2.16.840.1.131540.3.579.2.59 3 1951 Unknown [id number] 2.16.840.1.307374.3.579.2.59 3 1951 Unknown [id number] 2.16.840.1.944712.3.579.2.59 3 1951 Unknown [id number] 2.16.840.1.932970.3.579.2.59 3 1951 Unknown [id number] 2.16.840.1.596096.3.579.2.12 86 1951 Unknown [id number] 2.16.840.1.613091.3.579.2.12 86 1951 Unknown [id number] 2.16.840.1.172993.3.579.2.12 86 1951 Unknown [id number] 2.16.840.1.282106.3.579.2.12 59 1951 Unknown [id number] 2.16.840.1.471093.3.579.2.12 59 1951 Unknown [id number] 2.16.840.1.685807.3.579.2.12 59 1951 Unknown [id number] 2.16.840.1.975596.3.579.2.12 59 1951 Unknown [id number] 2.16.840.1.547298.3.579.2.12 59 1951 Unknown [id number] 2.16.840.1.803270.3.579.2.12 59 1951 Unknown [id number] 2.16.840.1.319570.3.579.2.12 59 1951 Unknown [id number] 2.16.840.1.411965.3.579.2.12 59 1951 Unknown [id number] 2.16.840.1.702675.3.579.2.12 59 1951 Unknown [id number] 2.16.840.1.522917.3.579.2.12 59 1951 Unknown [id number] 2.16.840.1.528756.3.579.2.12 59 1951 Unknown [id number] 2.16.840.1.947047.3.579.2.12 59 1951 Unknown [id number] 2.16.840.1.902433.3.579.2.12 59 1951 Unknown [id number] 2.16.840.1.036369.3.579.2.12 59 1951 Unknown [id number] 2.16.840.1.416334.3.579.2.12 59 Unknown [facility] [id number] Unknown HCAP/HFA/FAP Active [id number] Unknown [id number] 2.16.840.1.897665.3.579.2.53 1 Unknown [id number] 2.16.840.1.795790.3.579.2.53 1 Unknown [id number] 2.16.840.1.421702.3.579.2.53 1 Social History Date Type Detail Facility Start: 10-31-2023 End: 11-29-2023 Sex Assigned At [facility] Start: 08-30-2022 Tobacco smoking status Heavy t obacco smoker (finding) [facility] Tobacco smoking status Never [facility] Start: 03-14-2021 [facility] Start: 1950 Sex Assigned At Male [facility] Start: 10-30-2023 [facility] History of tobacco use Cigarette Smoker [facility] Start: 10-30-2023 End: 11-29-2023 Cigarettes smoked current (pack per day) - Reported 1 [facility] Start: 10-30-2023 Tobacco use and exposure Smokeless tobacco non-user [facility] Start: 11-29-2023 Alcohol intake Lifetime non-d heath (finding) [facility] Start: 1950 Sex Assigned At Not on file [facility] Medical Equipment Procedure Code Equipment Code Equipment Origin al Text Equipment Identifier Dates NovoFine 32G X 6 MM Start : 09-24-2020 Multiple periphe ral artery stent, bare-metal [id number] Start: 03-09-2021 Functional Status Date Assessment Result Facility 08-30-2022 Functional Status N/A General Benjamin makayla Gallagher Clinical Notes 03-09-2021 to 11-29-2023 Tonya Dye NP - 11/29/2023 4:38 PM ESTTonya Dye, SHIVAM - 11/29/2023 4:36 PM ESTTonya Dye, SHIVAM - 11/29/2023 4:34 PM ESTLisa Hardik, POLITICAL ANALYST - 11/29/2023 4:34 PM EST Note Date [...] Uncontrolled type 2 diabetes mellitus with hyperglycemia ([facility]) Check blood sugars daily, notify if [...] being taken. 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 Hypertension This is a [...] radiculopathy 10/31/2023 Mass of both adrenal glands ([facility]) Neck pain Olecranon bursitis of left elbow Olecranon bursitis of right elbow PAD (peripheral artery disease) ([facility]) Peripheral neuropathy Popliteal cyst, right Psoriasis ([facility]) PVD (peripheral vascular disease) ([facility]) Retinopathy, diabetic, bilateral ([facility]) Ringing in ears, right Seasonal allergies Sebaceous cyst Tobacco user Uncontrolled type 2 diabetes mellitus with hyperglycemia ([facility]) Vitamin B12 deficiency Past Surgical History: Procedure [...] SINUS WO IV CONTRAST BMI 29.0-29.9,adult Diabetes ([facility]) Relevant Orders Hemoglobin A1c HTN (hypertension) ([facility]) - Primary No changes needed in medication regimine Sebaceous cyst Still waiting on approval from [facility] to stop plavix for proceedure [facility] Relevant Orders CT SINUS WO IV CONTRAST documented in this encounter [facility] 10-24-2023 Evaluation note Encounter Date Diagnosis [...] Pain in right elbow (ICD-10 - M25.521) [employer] Other 12-29-2022 Hospital Discharge instructions Follow [facility] 10/13/2022 10:40:40 With:MANJIT WILKINS, Bernadine Pinzon, JULIA Address: [address] [place], [place] [id number]- When: only if needed General Surgery [facility] [phone] NoteOPERATIVE NOTE OPERATION DATE: 10/12/2022 PREOPERATIVE DIAGNOSIS: [...] area in good condition. CC: Tonya Dye, [facility]11-20-2022 NoteChief Complaint consultation for sebaceous [...] plan excisional biopsy under local anesthesia at [facility] once inflammation has decreased; approximately4 weeks; [...] Cipro (Itching) Victoza (Itchin (more content not included)...[facility]Result Comment: Electronically Signed By: MANJIT WILKINS, Bernadine Arndt.julius\Date and Time Signed: 09/04/22 11:08 [id number] Evaluation note* Encounter Date Diagnosis Assessment Notes [...] of right lower extremity (ICD-10 - I82.491) [employer] Other 11-04-2021 Evaluation note* Encounter Date Diagnosis Assessment Notes Treatment Notes Treatment Clinical Notes Aug, Arthritis of right knee (ICD-10 - M17.11) Patient is doing well at this time. He will continue daily strengthening exercises and progress activity as tolerated [employer] Other 10-14-2021 Evaluation note* Encounter Date Diagnosis [...] MRI for further evaluation for meniscal tear. [employer] Other 05-25-2021 History general Narrative - Reported* Type Description Date Medical History type II diabetes Medical History HTN Medical History psoriasis Surgical History rotator cuff tear repair 011 Surgical History right leg angioplasty 03/09/21 Hospitalization History see surgical [employer] Other 05-25-2021 History general Narrative - Reported* Type Description Date Medical History type II diabetes Medical History HTN Medical History psoriasis Medical History DVT Surgical History rotator cuff tear repair 011 Surgical History right leg angioplasty 03/09/21 Hospitalization History see [facility] Other Evaluation + Plan note No data available for this section [facility] Evaluation noteNo InformationNort [employer] Other Evaluation noteNo assessment information available [facility] Work Phone: Evaluation note* Diagnosis Primary hypertension [...] available for this section General [facility] Progress note No data available for this section [facility] Summary Purpose Family History No Family History [...] CONTRAST Tonya Dye, SHIVAM [address] [place] [address] Referral ID Status Reason Start Date Expiration Date V isits Requested Visits Authorized [id number] Pending Review 11/29/2023 05/27/2024 1 1 Additional Source Comments (unrecognized sect ion and content) No Status Records FoundNo Status Records FoundNo Status Records FoundNo Status Records FoundNo Status Records FoundNo Status Records FoundNo Status Records FoundNo Status Records Found INFORMATION SOURCE (unrecogn ized section and content) DATE CREATED AUTHOR 11/08/2021 [facility] DATE CREATED AUTHOR AUTHOR'S ORGANIZ ATION 10/26/2022 [facility] DATE CREATED AUTHOR AUTHOR'S ORGANIZ ATION 02/05/2023 [facility] DATE CREATED AUTHOR AUTHOR'S ORGANIZ ATION 01/05/2024 [facility] DATE CREATED AUTHOR AUTHOR'S ORGANIZ ATION 02/09/2024 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 [facility]. provides no warranty or guarantee of the accuracy or completeness of information in this document.
[2024-07-03 18:09] LABS: Basophils Percent Auto 0.3 % (0.2-2.0); Eosinophils Absolute Auto 0.1 10^3/uL (0.0-0.7); Eosinophils Percent Auto 1.3 % (0.9-7.0); Hematocrit 49.3 % (42.0-54.0); Hemoglobin 16.8 g/dL (14.0-18.0); Immature Granulocytes Abs Auto 0.03 10^3/uL (0.00-0.03); Immature Granulocytes Pct Auto 0.3 % (0.0-0.5); Lymphocytes Absolute Auto 1.5 10^3/uL (1.2-3.8); Lymphocytes Percent Auto 14.8 % (20.5-60.0); Mean Corpuscular HGB Conc 34.1 g/dL (29.9-35.2); Mean Corpuscular Hemoglobin 31.6 pg (25.9-34.0); Mean Corpuscular Volume 92.8 fL (80.0-94.0); Mean Platelet Volume 10.2 fL (9.5-13.5); Monocytes Absolute Auto 0.8 10^3/uL (0.3-0.8); Monocytes Percent Auto 7.5 % (1.7-12.0); Neutrophils Absolute Auto 7.6 10^3/uL (1.4-6.5); Neutrophils Percent Auto 75.8 % (43.0-75.0); Platelet Count 229 10^3/uL (150-450); Red Blood Count 5.31 10^6/uL (4.70-6.10); Red Cell Distribution Width 13.3 % (11.0-15.0)
[2024-07-03 18:33] LABS: Alanine Aminotransferase 18 U/L (16-63); Albumin Globulin Ratio 0.9; Albumin Level 3.6 g/dL (3.4-5.0); Alkaline Phosphatase 110 U/L (46-116); Aspartate Amino Transferase 19 U/L (15-37); BUN Creatinine Ratio 21.1; Bilirubin Total 0.5 mg/dL (0.2-1.0); Calcium 9.1 mg/dL (8.5-10.1); Carbon Dioxide 30.6 mmol/L (21.0-32.0); Chloride 101 mmol/L (98-107); Estimated GFR (African America >60 (>=60); Estimated GFR (Non-African Ame >60 (>=60); Globulin 4.1 g/dL; Glucose 130 mg/dL (74-106); Potassium 4.6 mmol/L (3.5-5.1); Sodium 134 mmol/L (136-145); Total Protein 7.7 g/dL (6.4-8.2); Troponin I High Sensitivity 10.3 pg/mL (4.0-76.1)
--- NOTE | 2024-07-03 18:38 | CT_ITS ---
[address] [address] Patient Name: TERRI LOWE MRN: [id number] date: 1950 Sex: M Assigned Patient Location: ER Current Patient Location: ER Accession/Order Number: [id number] Exam Date: 07/03/2024 19:10 Report Date: 07/03/2024 20:21 At the request of: ANGELINA GILL Procedure: CT abdomen pelvis w con CT ABDOMEN/PELVIS WITH IV CONTRAST. INDICATION: Abdominal pain. COMPARISON: 01/25/2024 TECHNIQUE: Contiguous axial images were obtained from the lung bases to the pelvic floor following the intravenous administration of contrast. Coronal and sagittal reformations are provided. FINDINGS: LOWER LUNGS: Clear. LIVER/BILIARY TREE: No mass. No intrahepatic ductal dilatation. GALLBLADDER: No significant gallbladder wall thickening. No radiopaque stone. CBD: Normal CBD. SPLEEN: Normal in size. PANCREAS: No acute findings. No peripancreatic fluid or inflammation. No pancreatic duct dilatation. No discrete mass. ADRENALS: Stable bilateral adrenal nodules. KIDNEYS: No hydronephrosis. No radiopaque calculus. STOMACH AND BOWEL: Decompressed stomach which appears thickened. There is mild stranding surrounding the distal gastric body. No dilated bowel loops. No bowel wall thickening. Colonic diverticulosis without acute diverticulitis. APPENDIX: Normal appendix. PERITONEAL CAVITY: No fluid. No fat stranding. ABDOMINAL WALL: No subcutaneous stranding. No subcutaneous fluid collection. LYMPH NODES: No mesenteric or retroperitoneal lymphadenopathy by CT criteria. ABDOMINAL AORTA: No aneurysm. PELVIS: There is mild bladder wall thickening. Prostatomegaly. Redemonstrated bilateral bladder diverticula. MUSCULOSKELETAL: No acute osseous abnormality. CT/CT abdomen pelvis w con IMPRESSION: 1. Findings are suggestive of gastritis. 2. Mild bladder wall thickening which may be secondary to bladder hypertrophy or cystitis. Electronically authenticated by: JAVIER CHANDRA Date: 07/03/2024 20:21
--- NOTE | 2024-07-03 18:40 | ED_ITS ---
HPI - Abdominal Pain General Chief Complaint: Abdominal Pain Stated Complaint: Nausea/Vomiting Time Seen by Provider: 07/03/24 18:33 Source: patient Mode of arrival: walk-in Limitations: no limitations History of Present Illness HPI narrative: Patient is a 74-year-old male who presents to the emergency department for the evaluation of diffuse abdominal pain, nausea. He states he has a history of diverticulitis and was seen in this hospital for diverticulitis several months ago. He states he had a colonoscopy showing diverticula 2 years ago, he did have bleeding at that time and required transfusion. He denies fevers or upper respiratory symptoms. He states pain started in the lower abdomen and is now diffuse across the upper abdomen. He denies vomiting. No urinary symptoms or flank pain. He denies any previous abdominal surgeries. No medications taken prior to arrival. Related Data Home Medications ?Medication ?Instructions ?Recorded ?Confirmed clopidogrel 75 mg tablet 75 mg PO DAILY 01/25/24 03/10/24 dapagliflozin propanediol 10 mg 10 mg PO DAILY 01/25/24 03/10/24 tablet (Farxiga) gabapentin 400 mg capsule 600 mg PO QID 01/25/24 03/10/24 glipizide 10 mg tablet 10 mg PO BID 01/25/24 03/10/24 metformin 1,000 mg tablet 1,000 mg PO BID 01/25/24 03/10/24 metoprolol tartrate 50 mg tablet 50 mg PO BID 01/25/24 03/10/24 pioglitazone 45 mg tablet 45 mg PO DAILY 01/25/24 03/10/24 simvastatin 20 mg tablet 20 mg PO DAILY 01/25/24 03/10/24 tamsulosin 0.4 mg capsule 0.4 mg PO DAILY 01/25/24 03/10/24 Previous Rx's ?Medication ?Instructions ?Recorded albuterol sulfate 90 mcg/actuation 2 inh inhalation Q4H PRN shortness 03/12/24 aerosol inhaler of breath or wheezing #8.5 grams azithromycin 250 mg tablet 250 mg PO DAILY 4 days #4 tabs 03/12/24 prednisone 20 mg tablet 20 mg PO BID 5 days #10 tabs 03/12/24 dicyclomine 20 mg tablet 20 mg PO QID PRN abdominal pain 07/03/24 #12 tabs ondansetron 4 mg disintegrating 4 mg PO Q6H PRN nausea and 07/03/24 tablet vomiting #12 tabs pantoprazole 40 mg tablet,delayed 40 mg PO DAILY #7 tabs 07/03/24 release (Protonix) sucralfate 1 gram tablet (Carafate) 1 g PO Q6H PRN abdominal pain #12 07/03/24 tabs Allergies Allergy/AdvReac Type Severity Reaction Status Date / Time ciprofloxacin [From Cipro] Allergy Severe Verified 03/10/24 22:17 dulaglutide [From Trulicity] Allergy Severe Verified 03/10/24 22:17 liraglutide [From Victoza] Allergy Severe Verified 03/10/24 22:17 Penicillins Allergy Severe Verified 03/10/24 22:17 Review of Systems ROS Constitutional Denies: fever or chills Ears, nose, mouth, and throat Denies: throat pain or nasal congestion Respiratory Denies: shortness of breath Gastrointestinal Reports: abdominal pain, nausea and diarrhea; Denies: vomiting Musculoskeletal Denies: back pain or neck pain Hematologic/Lymphatic Denies: easy bruising or easy bleeding PFSH PFSH Medical History Peripheral neuropathy ?G62.9 - Polyneuropathy, unspecified (ICD-10) Hyperlipidemia associated with type 2 diabetes mellitus ?E11.69 - Type 2 diabetes mellitus with other specified complication (ICD-10) ?E78.5 - Hyperlipidemia, unspecified (ICD-10) Non-insulin dependent type 2 diabetes mellitus ?E11.9 - Type 2 diabetes mellitus without complications (ICD-10) Hypertension ?I10 - Essential (primary) hypertension (ICD-10) Smoker ?F17.200 - Nicotine dependence, unspecified, uncomplicated (ICD-10) Social History Highest level of school completed/degree received: high school graduate Little interest or pleasure in doing things: not at all Feeling down, depressed, or hopeless: not at all Do you think of yourself as: straight/heterosexual Gender Identity: male Exam Narrative Exam Narrative: Gen.: Awake, alert, in no distress Head: Normocephalic, atraumatic ENT: Moist mucous membranes Respiratory: No respiratory distress, lungs clear bilaterally Cardio: Regular rate and rhythm Gastrointestinal: Abdomen is soft, nondistended and diffusely tender to palpation with no point tenderness or guarding or rebound Extremities: Moves extremities equally Psych: Normal mood and affect Neuro: No focal neuro deficit Skin: Warm, dry, intact Constitutional Vital Signs, click to edit/add: Last Vital Signs Temp 98.3 F 07/03/24 20:28 Pulse 79 07/03/24 20:28 Resp 14 07/03/24 20:28 BP 160/73 H 07/03/24 20:28 Pulse Ox 96 07/03/24 20:28 O2 Del Method Room Air 07/03/24 20:28 Course Vital Signs Vital signs: Vital Signs Temperature 98.6 F 07/03/24 17:05 Pulse Rate 76 07/03/24 17:05 Respiratory Rate 16 07/03/24 17:05 Blood Pressure 145/91 H 07/03/24 17:05 Pulse Oximetry 97 07/03/24 17:05 Temperature 98.3 F 07/03/24 20:28 Pulse Rate 79 07/03/24 20:28 Respiratory Rate 14 07/03/24 20:28 Blood Pressure 160/73 H 07/03/24 20:28 Pulse Oximetry 96 07/03/24 20:28 Oxygen Delivery Method Room Air 07/03/24 20:28 MDM - Abdominal Pain MDM Narrative Medical decision making narrative: Abdomen is soft and benign, patient was treated with IV fluids, Levsin and Zofran. He is sitting comfortably at bedside on reevaluation. Labs grossly workable white blood cell, mildly elevated lipase however CT shows no evidence of pancreatitis and his lipase is not 3 times the upper limit of normal to indicate acute pancreatitis. CT shows gastritis and possible cystitis. Urine specimen with no evidence of urinary tract infection. Patient will be placed on Carafate, Protonix and Zofran for home with [facility] for abdominal pain. Follow- up with PCP and return to the ER if symptoms change or worsen. SUPERVISED APC VISIT, PHYSICIAN ATTESTATION: Based on the medical record the care appears appropriate. ? Medical Records Attestation: I reviewed the patient's medical records. Lab Data Attestation: I reviewed the patient's lab results. Labs: Lab Results 07/03/24 07/03/24 Range/Units 17:49 20:30 WBC 10.0 (4.0-11.0) 10^3/uL RBC 5.31 (4.70-6.10) 10^6/uL Hgb 16.8 (14.0-18.0) g/dL Hct 49.3 (42.0-54.0) % MCV 92.8 (80.0-94.0) fL MCH 31.6 (25.9-34.0) pg MCHC 34.1 (29.9-35.2) g/dL RDW 13.3 (11.0-15.0) % Plt Count 229 (150-450) 10^3/uL MPV 10.2 (9.5-13.5) fL Neut % (Auto) 75.8 H (43.0-75.0) % Lymph % (Auto) 14.8 L (20.5-60.0) % Schley % (Auto) 7.5 (1.7-12.0) % Eos % (Auto) 1.3 (0.9-7.0) % Baso % (Auto) 0.3 (0.2-2.0) % Neut # (Auto) 7.6 H (1.4-6.5) 10^3/uL Lymph # (Auto) 1.5 (1.2-3.8) 10^3/uL Schley # (Auto) 0.8 (0.3-0.8) 10^3/uL Eos # (Auto) 0.1 (0.0-0.7) 10^3/uL Baso # (Auto) 0.0 (0.0-0.1) 10^3/uL Abs Immat Gran (auto) 0.03 (0.00-0.03) 10^3/uL Imm/Tot Granulo (auto) 0.3 (0.0-0.5) % Sodium 134 L (136-145) mmol/L Potassium 4.6 (3.5-5.1) mmol/L Chloride 101 (98-107) mmol/L Carbon Dioxide 30.6 (21.0-32.0) mmol/L Anion Gap 7.0 BUN 12.0 (7.0-18.0) mg/dL Creatinine 0.57 L (0.70-1.30) mg/dL Est GFR ( Amer) >60 (>=60) Est GFR (Non-Af Amer) >60 (>=60) BUN/Creatinine Ratio 21.1 Glucose 130 H (74-106) mg/dL Lactate 1.0 (0.4-2.0) mmol/L Calcium 9.1 (8.5-10.1) mg/dL Total Bilirubin 0.5 (0.2-1.0) mg/dL AST 19 (15-37) U/L ALT 18 (16-63) U/L Alkaline Phosphatase 110 (46-116) U/L Troponin I High Sens 10.3 (4.0-76.1) pg/mL Total Protein 7.7 (6.4-8.2) g/dL Albumin 3.6 (3.4-5.0) g/dL Globulin 4.1 g/dL Albumin/Globulin Ratio 0.9 Lipase 161.0 H (16.0-77.0) U/L Urine Color Lt. yellow (YELLOW) Urine Clarity Clear (CLEAR) Urine pH 6.5 (5.0-9.0) Ur Specific Stanton <=1.005 A (1.005-1.025) Urine Protein Negative (NEG/TRACE) mg/dL Urine Glucose (UA) 500 A (NEGATIVE) mg/dL Urine Ketones Negative (NEGATIVE) mg/dL Urine Occult Blood Negative (NEGATIVE) Urine Nitrite Negative (NEGATIVE) Urine Bilirubin Negative (NEGATIVE) Urine Urobilinogen 0.2 (0.2-1.0) EU/dL Ur Leukocyte Esterase Negative (NEGATIVE) Imaging Data CT scan - abdomen: Attestation: I have reviewed the pertinent imaging results. Radiologist's impression: ITS Impressions Abdomen/Pelvis CT 07/03/24 18:38 IMPRESSION: 1. Findings are suggestive of gastritis. 2. Mild bladder wall thickening which may be secondary to bladder hypertrophy or cystitis. Electronically authenticated by: JAVIER CHANDRA Date: 07/03/2024 20:21 Discharge Plan Discharge Chief Complaint: Abdominal Pain Clinical Impression: Abdominal pain, Gastritis Patient Disposition: Home, Self-Care Time of Disposition Decision: 20:54 Condition: Good Prescriptions / Home Meds: New sucralfate [Carafate] 1 gram tablet 1 g PO Q6H PRN (Reason: abdominal pain) Qty: 12 0RF dicyclomine 20 mg tablet 20 mg PO QID PRN (Reason: abdominal pain) Qty: 12 0RF pantoprazole [Protonix] 40 mg tablet,delayed release (DR/EC) 40 mg PO DAILY Qty: 7 0RF ondansetron 4 mg tablet,disintegrating 4 mg PO Q6H PRN (Reason: nausea and vomiting) Qty: 12 0RF No Action clopidogrel 75 mg tablet 75 mg PO DAILY dapagliflozin propanediol [Farxiga] 10 mg tablet 10 mg PO DAILY metformin 1,000 mg tablet 1,000 mg PO BID metoprolol tartrate 50 mg tablet 50 mg PO BID simvastatin 20 mg tablet 20 mg PO DAILY tamsulosin 0.4 mg capsule 0.4 mg PO DAILY pioglitazone 45 mg tablet 45 mg PO DAILY glipizide 10 mg tablet 10 mg PO BID gabapentin 400 mg capsule 600 mg PO QID azithromycin 250 mg tablet 250 mg PO DAILY 4 Days Qty: 4 0RF prednisone 20 mg tablet 20 mg PO BID 5 Days Qty: 10 0RF albuterol sulfate 90 mcg/actuation HFA aerosol inhaler 2 inh inhalation Q4H PRN (Reason: shortness of breath or wheezing) Qty: 8.5 0RF Print Language: Bahamian Instructions: Gastritis (ED), Acute Abdominal Pain (ED) Referrals: Tonya Dye NP [Primary Care Provider] - 1 week
[2024-07-03] MEDS: HYOSCYAMINE SULFATE 0.125 MG TAB.SUBL SL (18:53)
[2024-07-03] MEDS: 0.9 % SODIUM CHLORIDE 1,000 ML 1000 ML IV (18:53)
[2024-07-03] MEDS: ONDANSETRON PF 4 MG/2 ML VIAL IV (18:54)
[2024-07-03 20:28] VITALS: BP 160/73; PULSE 79; TEMP 36.8; O2SAT 96
[2024-07-03 20:42] LABS: Bilirubin Urine NEGATIVE (NEGATIVE); Blood Urine NEGATIVE (NEGATIVE); Clarity Urine CLEAR (CLEAR); Color Urine LT. YELLOW (YELLOW); Glucose Urine UA 500 mg/dL (NEGATIVE); Ketones Urine NEGATIVE (NEGATIVE); Leukocyte Esterase Urine NEGATIVE (NEGATIVE); Nitrite Urine NEGATIVE (NEGATIVE); Protein Urine NEGATIVE (NEG/TRACE); Specific Gravity Urine <=1.005 (1.005-1.025); Urobilinogen Urine 0.2 EU/dL (0.2-1.0); pH Urine 6.5 (5.0-9.0)
[2024-07-03 20:43] LABS: Urine Microscopic Indicated NO
== END 2024-07-03 21:12 | disposition home or self-care (01) ==
PROVIDERS: Emergency Medicine; Physician Assistant; Emergency Provider Emergency Medicine; PCP Nurse Practitioner
DX: R10.9 Unspecified abdominal pain (principal); K29.70 Gastritis, unspecified, without bleeding
CPT/HCPCS: 36415; 74177; 80053; 81003; 83605; 83690; 84484; 85025; 93005; 96361; 96374; 99285; J2405; Q9967

== ENCOUNTER 2024-08-22 13:45 | Outpatient (OUT) | payer MEDICARE, OTHER, SELFPAY ==
--- NOTE | 2024-08-22 13:48 | US_ITS ---
The [address] [address] Patient Name: TERRI LOWE MRN: [id number] date: 1950 Sex: M Assigned Patient Location: US Current Patient Location: US Accession/Order Number: [id number] Exam Date: 08/22/2024 14:05 Report Date: 08/22/2024 17:23 At the request of: MARY JO JORDAN Procedure: US carotid duplex BI DUPLEX ULTRASOUND EXAMINATION OF THE CAROTID ARTERIES. COMPARISON: None. HISTORY / INDICATIONS: Carotid bruit. TECHNIQUE: Bilateral common carotid arteries, extracranial internal and external carotid arteries are evaluated with shaw-scale imaging, color Doppler, and spectral analysis according to a standard protocol. ICA-CCA ratios are calculated with public health representative peak-systolic velocities and recorded. Vertebral arteries are evaluated in one segment to evaluate for patency and character of flow. Comparison with previous evaluation is performed when available. Unless otherwise specified, all velocities are measured in cm/sec. Carotid stenosis is reported according to validated velocity parameters, similar to NASCET criteria. FINDINGS: Right Carotid: Plaque was noted. Velocity measurements as follows: Internal Carotid Artery 58/13 and 62/18. ICA to CCA ratio: 0.8. Left Carotid: Plaque was noted. Velocity measurements as follows: Internal Carotid Artery 35/6 and 47/8. ICA to CCA ratio: 1.0. Antegrade flow was seen in both vertebral arteries. CONCLUSION: 1. Less than 50% stenosis of the right ICA. 2. Less than 50% stenosis of the left ICA. 3. Vertebral arteries are patent and demonstrate antegrade flow. Electronically authenticated by: Gail STEPHEN Date: 08/22/2024 17:23
== END 2024-08-22 13:46 | disposition home or self-care (01) ==
LOC: US 13:46
PROVIDERS: PCP Nurse Practitioner; Visit Provider Nurse Practitioner
DX: I73.9 Peripheral vascular disease, unspecified (principal); E11.9 Type 2 diabetes mellitus without complications; R09.89 Other specified symptoms and signs involving the circulatory and respiratory systems
CPT/HCPCS: 93880

== ENCOUNTER 2025-02-03 12:46 | Outpatient (OUT) | payer MEDICARE, OTHER, SELFPAY ==
--- NOTE | 2025-02-03 13:00 | CA_ITS ---
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 Interpretive Statements Summary of the findings: Right leg: MALATHI= 1.0; TBI= 0.55. Doppler waveforms demonstrate monophasic flow at the posterior tibial, and dorsalis pedis arteries. Left leg: MALATHI= 0.65; TBI= 0.37. Doppler waveforms demonstrate monophasic flow at the posterior tibial, and dorsalis pedis arteries. Segmental pressures: Segmental pressures are normal on the right and demonstrate significant left sided femoropopliteal disease. Pulse volume recordings: PVRs at the high thigh, below knee, and ankle levels show normal waveforms on the right and dampened left sided below thigh waveforms. Conclusion: Right and left ankle-brachial indices are suggestive of normal overall right-sided arterial flow and reduced left-sided arterial flow at rest. Toe-brachial indices are suggestive of PAD. Segmental pressures show significant left sided femoropopliteal disease. Pulse volume recordings indicate reduced overall left-sided resting arterial flow. The study shows evidence of PAD with reduced overall left-sided arterial flow at rest due to significant left femoropopliteal disease. Electronically Signed On 02-03-2025 22:03:25 EDT by TRAVON CAMPBELL M.D.
== END 2025-02-03 12:47 | disposition home or self-care (01) ==
LOC: CARD 12:47
PROVIDERS: PCP Nurse Practitioner; Visit Provider Student in an Organized Health Care Education/Training Program
DX: I73.9 Peripheral vascular disease, unspecified (principal); F17.210 Nicotine dependence, cigarettes, uncomplicated
CPT/HCPCS: 93923; 93926

== ENCOUNTER 2025-04-02 12:34 | Outpatient (OUT) | payer MEDICARE, OTHER, SELFPAY ==
--- OUTSIDE RECORDS SUMMARY | 2024-09-23 05:15 | XMS_ITS ---
Author Organization [facility] vices Address [address] [place] [phone] Care Team Providers Care Dairy Processing Supervisor Name Role Phone Loren Luque Unavailable [phone] REASON FOR VISIT Extraction #18 Social History Sex Assigned At : Social History Observation Description Sex Assigned At Male Encounters Encounter Location Date Provider Diagnosis [facility] [address] [place], [place] [phone] 09/23/2024 Loren Luque Plan Of Treatment No Information Progress Notes * Darin LOWEDOB:1950 (75 yo M)Acc No.[id number]:09/23/2024 Patient: Darin KULKARNI Provider: Miryam Luque DDS :1950 A ge:74 Y S ex:Male Date:09/23/2024 Address:[address] [place], [place] [phone] Subjective: * Chief Complaints: * 1 . Extraction #18. * Medical History: Objective: * Vitals: Assessment: Plan: * Treatment: * Billing Information: * Visit Code: * Procedure Codes: * Electronic signature of China Luque DDS on 04/02/2025 at 12:44 PM EDT Sign off status: Pending * Provider: Miryam Luque DDS Date: 11/24/2023 Generated for Colby toth/Fajanis/eTransmitting on: 0 04/02/2025 12:44 PM EDT
--- OUTSIDE RECORDS SUMMARY | 2025-01-08 10:15 | XMS_ITS ---
Author Organization [facility] vices Address [address] [place] [phone] Care Team Providers Care Teletype Or Varitype Keyboard Operator Name Role Phone Loren Luque Unavailable [phone] REASON FOR VISIT Extraction #18 Social History Sex Assigned At : Social History Observation Description Sex Assigned At Male Encounters Encounter Location Date Provider Diagnosis [facility] [address] [place], [place] [phone] 01/08/2025 Loren Luque Plan Of Treatment No Information Progress Notes * Darin THACKERDOB:1950 (75 yo M)Acc No.[id number]:01/08/2025 Patient: Darin KULKARNI Provider: Miryam Luque DDS :1950 A ge:74 Y S ex:Male Date:01/08/2025 Address:[address] [place], [place] [phone] Subjective: * Chief Complaints: * 1 . Extraction #18. * Medical History: Objective: * Vitals: Assessment: Plan: * Treatment: * Billing Information: * Visit Code: * Procedure Codes: * Electronic signature of China Luque DDS on 04/02/2025 at 12:43 PM EDT Sign off status: Pending * Provider: Miryam Luque DDS Date: 01/08/2025 Generated for Colby ng/Fajanis/eTransmitting on: 0 04/02/2025 12:43 PM EDT
--- OUTSIDE RECORDS SUMMARY | 2025-03-27 14:00 | XMS_ITS | Encounter Summary ---
Author Organization [facility] Address [address] [place] [address] Care Team Providers Care Barrel Inspector Tight Name Role Phone Tonya Dye METER AND SERVICE LINE INSPECTOR Unavailable [phone] Mumtaz Jensen MD Primary Care Provider Tonya Dye METER AND SERVICE LINE INSPECTOR Unavailable [phone] Reason for Visit * Reason Comments Medicare Annual Wellness Visit Initial Encounter Details Date Type Department Care Team (Late st Contact Info) Description 03/27/2025 2:00 PM EDT Office Visit [facility] [address] [place] [address] Tonya Dye NP [address] [place] [address] Encounter for subsequent annual wellness visit (AWV) [...] at all 03/27/2025 2:22 PM EDT MARCELLO OTOOEL Thoughts that you would be better off [...] last year: yes Specialist: vascular, eye doctor, labor service representative HCPOA/Living Will: no Concerns: none Hypertension This [...] being taken. He does not see a scene painter.Eye exam is current. SUBJECTIVE: MEDICATIONS: Current Outpatient [...] of the risks of continued smoking: stroke, UT, all forms of cancer, lung disease, and [...] of the risks of continued smoking: stroke, UT, all forms of cancer, lung disease, and [...] [facility] [address] [place] [address] Tonya Dye NP [address] [place] [id number] 04/02/2026 11:00 AM EDT Office Visit [facility] [address] [place] [address] Tonya Dye NP [address] [place] [address] Scheduled Orders Name Type Priority Associated Diagnoses [...] documented as of this encounter Care Teams Barrel Inspector Tight Relationship Specialty Start Date End Date Mumtaz Jensen MD [address] [place] [address] PCP - General Family Medicine 11/28/23 Tonya Dye NP [address] [place] [address] PCP - ACO Reach 11/22/24 Tonya Dye NP Referring Physician Nurse Practitioner 03/09/23 documented as of this encounter
--- OUTSIDE RECORDS SUMMARY | 2025-04-02 12:44 | XMS_ITS | Encounter Summary ---
Author Organization [facility] Address [id number] [address] [place] [address] Care Team Providers Care Group Activities Aide Name Role Phone Valerie Dyea Gail AEROSPACE ENGINEER OFFICER ARMAMENT-STAFF WEAPONS OFFICER Primary Care Provider Encounter Details Date Type Department Care Team (Late st Contact Info) Description 10/01/2021 Telephone [facility] [address] [place] [address] Shirin Howell MD [address], [facility] [address] [place] [address] Social History Tobacco Use Types Packs/Day Years Used Date Smoking Tobacco: Every Day Cigarettes 1 30 Smokeless Tobacco: Never Comments:15 cigarettes a day Alcohol Use Standard Drinks/Week Comments Not Currently 0 (1 standard drink = 0.6 oz pur e alcohol) Childcare Answer Date Recorded Childcare Unknown 03/27/2019 Employment Answer Date Recorded Employment Unknown 03/27/2019 Purpose - Life Answer Date Recorded Purpose and direction in life Unknown Sex and Gender Information Value Date Recorded Sex Assigned at Not on file Legal Sex Male 11:30 AM EDT Gender Identity Not on file Sexual Orientation Not on file COVID-19 Exposure Response Date Recorded In the last month, have you been in contact with someone who was confirmed or suspected to have Coronavirus / COVID-19? No / Unsure 09/30/2021 10:44 AM EST documented as of this encounter Miscellaneous Notes * Telephone Encounter - Radha Spence - 10/01/2021 9:43 AM EST Patient is calling to report tremendous pain after a procedure he just had. He states the pain isn't just from procedure it is from his legs in general. He has upcoming appt in a couple of weeks, buthe is having a hard time. He can be reached at [phone] * Telephone Encounter - Erika Palacios LPN - 10/01/2021 9:43 AM EST Left a message for * Telephone Encounter - Erika Palacios LPN - 10/01/2021 9:43 AM EST Per Doctor Lynda they can discuss possible pain medication at his next follow up appt. On 10-14-21 documented in this encounter Plan of Treatment Upcoming Encounters Date Type Department Care Team (Late st Contact Info) Description 04/14/2025 10:30 AM EDT Appointment [facility] - Cardiovascular [address] [place] [address] Muna Persaud PA-C [address] [place] [address] 07/15/2025 1:15 PM EDT Office Visit [facility] Cardiology [address] [place] [address] Tamara Rbeolledo MD [address] [place], [place] [phone] 03/04/2026 2:15 PM EDT Appointment [facility] - Vascular [address] [place] [address] Robyn Frazier, AEROSPACE ENGINEER OFFICER ARMAMENT-STAFF WEAPONS OFFICER [address] [facility], [address] [place] [address] 03/04/2026 3:00 PM EDT Appointment [facility] - Vascular [address] [place] [address] Robyn Frazier, AEROSPACE ENGINEER OFFICER ARMAMENT-STAFF WEAPONS OFFICER [address] [facility], [address] [place] [address] 04/02/2026 11:50 AM EDT Office Visit [facility] Vascular [place] [address] [place] [address] Yaneli Howell MD [address], [address] [place] [address] documented as of this encounter Visit Diagnoses Not on filedocumented in this encounter Additional Health Concerns Infection Onset Date Last Indicated Resolved Time COVID-19 Rule-Out 11/07/2021 11/07/2021 11/08/2021 2:25 AM EST Assessment Noted Time A Body Mass Index follow-up plan has been documented for the patient 11/14/2019 2:01 PM EST documented as of this encounter Care Teams Group Activities Aide Relationship Specialty Start Date End Date Tonya Dye, AEROSPACE ENGINEER OFFICER ARMAMENT-STAFF WEAPONS OFFICER PCP - General Nurse Practitioner 09/07/21 documented as of this encounter
--- OUTSIDE RECORDS SUMMARY | 2025-04-02 12:44 | XMS_ITS | Encounter Summary ---
Author Organization [facility] Address [address] [place] [address] Care Team Providers Care Cold Press Operator Name Role Phone Tonya Dye NP Unavailable [phone] Mumtaz Jensen MD Primary Care Provider Tonya yDe NP Unavailable [phone] Encounter Details Date Type Department Care Team (Late Contact Info) Description 03/27/2025 Bamboo flowsheet [facility] [address] [place] [address] Tonya Dye NP [address] [place] [address] Social History Tobacco Use Types Packs/Day Years [...] on file documented as of this encounter Plan of Treatment Upcoming Encounters Date Type Department Care Team (Late Contact Info) Description 06/30/2025 1:00 PM EDT Office Visit [facility] [address] [place] [address] Tonya Dye, [place] [address] [place] [phone] 04/02/2026 11:00 AM EDT Office Visit [facility] [address] [place] [address] Tonya Dye NP [address] [place] [address] documented as of this encounter Visit Diagnoses Not on filedocumented in this encounter Additional Health Concerns Assessment Noted Time PHQ-9 Depression Total Score: 3 03/27/20 25 2:22 PM EDT documented as of this encounter Care Teams Cold Press Operator Relationship Specialty Start Date End Date Mumtaz Jensen MD [address] [place] [address] PCP - General Family Medicine 11/28/23 Tonya Dye NP [address] [place] [phone] PCP - ACO Reach 11/22/24 Tonya Dye NP Referring Physician Nurse Practitioner 03/09/23 documented as of this encounter
--- OUTSIDE RECORDS SUMMARY | 2025-04-02 12:44 | XMS_ITS | Encounter Summary ---
Author Organization [facility] Address [id number] [address] [place] [address] Care Team Providers Care Cementer Machine Applicator Name Role Phone Tonya Dye GERIATRIC NURSING ASSISTANT-LUMBER PILER OPERATOR Primary Care Provider Encounter Details Date Type Department Care Team (Late st Contact Info) Description 09/08/2021 Telephone [facility] [address] [place] [address] Shirin Howell MD [address], [facility] [address] [place] [address] Social History Tobacco Use Types Packs/Day Years Used Date Smoking Tobacco: Every Day Cigarettes 1 30 Smokeless Tobacco: Never Alcohol Use Standard Drinks/Week Comments Not Currently [...] have Coronavirus / COVID-19? No / Unsure 09/07/2021 4:18 PM EST documented as of this encounter Miscellaneous Notes * Telephone Encounter - Radha Spence - 09/08/2021 12:10 PM EST If patient calls in prior to 09/13- please alert him of Dr Howell wanting to see him earlier than 10/18/[address] Cuadra. If 09/13 does not work, please keep it as soon as possible. *can grab Radha or Isa if needed, both aware documented in this encounter Plan of Treatment Upcoming Encounters Date Type Department Care Team (Late st Contact Info) Description 04/14/2025 10:30 AM EDT Appointment [facility] - Cardiovascular [address] [place] [address] Muna Persaud PA-C [address] [place] [address] 07/15/2025 1:15 PM EDT Office Visit [facility] Cardiology [address] [address] Tamara Rebolledo MD [address] [place] [address] 03/04/2026 2:15 PM EDT Appointment [facility] - Vascular [address] [place] [address] Robyn Frazier, GERIATRIC NURSING ASSISTANT-LUMBER PILER OPERATOR [address] [facility], [address] [place] [address] 03/04/2026 3:00 PM EDT Appointment [facility] Vascular [address] [place] [address] Robyn Frazier, GERIATRIC NURSING ASSISTANT-LUMBER PILER OPERATOR [address] [facility], [address] [place] [address] 04/02/2026 11:50 AM EDT Office Visit [facility] Vascular [place] [address] Yaneli Howell MD [address], [address] [address] documented as of this encounter Visit Diagnoses Not on filedocumented in this encounter Additional Health Concerns Infection Onset Date Last Indicated Resolved Time COVID-19 Rule-Out 09/27/2021 09/27/2021 09/28/2021 12:37 AM EST COVID-19 Rule-Out 11/07/2021 11/07/2021 11/08/2021 2:25 AM EST Assessment Noted Time A Body Mass Index follow-up plan has been documented for the patient 11/14/2019 2:01 PM EST documented as of this encounter Care Teams Cementer Machine Applicator Relationship Specialty Start Date End Date Tonya Dye, RAFITA-LUMBER PILER OPERATOR PCP - General Nurse Practitioner 09/07/21 documented as of this encounter
--- OUTSIDE RECORDS SUMMARY | 2025-04-02 12:44 | XMS_ITS | Encounter Summary ---
Author Organization [facility] Address [id number] [address] [place] [address] Care Team Providers Care Manager Inventory Management Name Role Phone HardikTonya Gail HOME CARE MUSIC THERAPIST-SUPERVISOR CASE LOADING Primary Care Provider Encounter Details Date Type Department Care Team (Late st Contact Info) Description 02/25/2025 Telephone [facility] [address] [place] [address] Yaneli Howell MD [address], [facility] [address] [place] [address] Social History Tobacco Use Types Packs/Day Years Used Date Smoking Tobacco: Every Day Cigarettes 0.5 30 Smokeless Tobacco: Never Comments:reports down to 10 cigarettes a day 11/25/21 Alcohol Use Standard Drinks/Week Comments Not Currently 0 (1 standard drink = 0.6 oz pur e alcohol) Childcare Answer Date Recorded Childcare Unknown 03/27/2019 Employment Answer Date Recorded Employment Unknown 03/27/2019 Hunger Screening Answer Date Recorded Within the past 12 months we worried whether our food would run out before we got money to buy more. Never True 02/20/2025 Within the past 12 months th e food we bought just didn't last and we didn't have money to get more. Never True 02/20/2025 Purpose - Life Answer Date Recorded Purpose and direction in life Unknown Sex and Gender Information Value Date Recorded Sex Assigned at Not on file Legal Sex Male 11:30 AM EDT Gender Identity Not on file Sexual Orientation Not on file documented as of this encounter Miscellaneous Notes * Telephone Encounter - Radha Spence - 02/25/2025 11:22 AM EDT Patient is calling because at his last visit with [facility] Carlson- his testing results were not available. It appears we got one test back from this year, but the carotid scan results they sent are from 08/2024, Patient would like to know the results of his tests and since he is not due back for a year, he is hoping someone will call him with an update at [phone] Thank you. *Brad LUNA is out, sending to triage nurse instead * Telephone Encounter - Erika Palcaios LPN - 02/25/2025 11:22 AM EDT Called pt and left a vmm that his carotid results from 08/2024 that shows minimal stenosis bilaterally. Patient may wait until his already scheduled appt for next year. * Telephone Encounter - Gretchen Jaffe - 02/25/2025 11:22 AM EDT Pt calling into senior writer to voice concerns about test results given. The results he's looking for arefrom a month ago and not 09/08. Please advise [phone] * Telephone Encounter - Erika Palacios LPN - 02/25/2025 11:22 AM EDT [employer] left patient a vmm to call the office and ask for triage nurse. * Telephone Encounter - Marie Zambrano CMA - 02/25/2025 11:22 AM EDT Called patient and also got hold of chari they are going to send over any results , if I get them today I will have Robyn give him a call , as I am with her this afternoon Thanks documented in this encounter Plan of Treatment Upcoming Encounters Date Type Department Care Team (Late st Contact Info) Description 04/14/2025 10:[address] [facility] - Cardiovascular [address] [place] [address] Muna Persaud PA-C [address] [place] [address] 07/15/2025 1:15 PM EDT Office Visit [facility] Cardiology [address] [facility] 1 [place] [address] Tamara Rebolledo MD [address] [place] [address] 03/04/2026 2:15 PM EDT Appointment [facility] Vascular [address] [place] [address] Robyn Frazier, HOME CARE MUSIC THERAPIST-SUPERVISOR CASE LOADING [address] [employer], [address] [place] [address] 03/04/2026 3:00 PM EDT Appointment [facility] Vascular [address] [place] [address] Robyn Frazier, HOME CARE MUSIC THERAPIST-SUPERVISOR CASE LOADING [address] [facility], [address] [place] [address] 04/02/2026 11:50 AM EDT Office Visit [facility] [place] [address] Yaneli Howell MD [address] [facility], [facility] [address] [place] [address] documented as of this encounter Visit Diagnoses Not on filedocumented in this encounter Additional Health Concerns Assessment Noted Time A Body Mass Index follow-up plan has been documented for the patient 11/14/2019 2:01 PM EST documented as of this encounter Care Teams Manager Inventory Management Relationship Specialty Start Date End Date Tonya Dye APRN-SUPERVISOR CASE LOADING PCP - General Nurse Practitioner 09/07/21 documented as of this encounter
--- OUTSIDE RECORDS SUMMARY | 2025-04-02 12:44 | XMS_ITS | Encounter Summary ---
Author Organization [facility] [facility] tem Address [id number] [address] [place] [address] Care Team Providers Care Program Manager Transportation Name Role Phone NeptaliTonya mercado Gail VOCATIONAL AUTO BODY INSTRUCTOR-REPLANTER Primary Care Provider Encounter Details Date Type Department Care Team (Late st Contact Info) Description 03/27/2024 Orders Only [facility] Cardiology [address] [address] External, Scanning Provider Social History Tobacco Use Types Packs/Day Years [...] got money to buy more. Never True 03/29/2024 Within the past 12 months th e food we bought just didn't last and we didn't have money to get more. Never True 03/29/2024 Purpose - Life Answer Date Recorded Purpose and direction in life Unknown Sex and Gender Information Value Date Recorded Sex Assigned at Not on file Legal Sex Male 11:30 AM EDT Gender Identity Not on file Sexual Orientation Not on file documented as of this encounter Plan of Treatment Upcoming Encounters Date Type Department Care Team (Late Contact Info) Description 04/14/2025 10:30 AM EDT Appointment [facility] - Cardiovascular [address] [place] [address] Muna Persaud PA-C [address] [place] [address] 07/15/2025 1:15 PM EDT Office Visit [facility] Cardiology [address] [place] [address] Tamara Rebolledo MD [address] [place] [address] 03/04/2026 2:15 PM EDT Appointment [facility] - Vascular [address] [place] [address] Robyn Frazier, VOCATIONAL AUTO BODY INSTRUCTOR-REPLANTER [address] [employer], [address] [place] [address] 03/04/2026 3:00 PM EDT Appointment [facility] - Vascular [address] [place] [address] Robyn Frazier, VOCATIONAL AUTO BODY INSTRUCTOR-REPLANTER [address], [address] [place] [address] 04/02/2026 11:50 AM EDT Office Visit [facility] [place] [address] Yaneli Howell MD [address] , [facility] [address] [place] [address] documented as of this encounter Procedures Procedure Name Priority Date/Time Associated Diagnosis Comments VASCULAR CHECKS Routine 03/27/2024 11:33 AM EDT XR CHEST 2 VWS Routine 03/27/2024 11:31 AM EDT ECG 12-LEAD Routine 03/27/2024 11:30 AM EDT ECHO COMPLETE W CONTRAST Routine 03/27/2024 11:27 AM EDT ECG 12-LEAD Routine 03/27/2024 11:21 AM EDT documented in this encounter Results * Vascular checks (03/27/2024 11:33 AM EDT) us Scanning Provider External NURSING ASSESSMENTS F inal Result Performing Organization Address [facility] de Phone Number MANUALLY TRANSCRIBED RESULTS * X-ray chest 2 views (03/27/2024 11:31 AM EDT) Anatomical Region Laterality Modality Body, Chest N/A Computed Radiogr aphy us Scanning Provider External IMG DIAGNOSTIC IMAGIN G ORDERABLES Final Result * ECG 12 lead (03/27/2024 11:30 AM EDT) us Scanning Provider External ECG ORDERABLES Final Result Performing Organization Address [facility] de Phone Number MANUALLY TRANSCRIBED RESULTS * Echo complete W/ contrast (03/27/2024 11:27 AM EDT) Anatomical Region Laterality Modality Chest N/A Ultrasound us Scanning Provider External CV ECHO ORDERABLES Fi nal Result * ECG 12 lead (03/27/2024 11:21 AM EDT) us Scanning Provider External ECG ORDERABLES Final Result Performing Organization Address [facility] Phone Number MANUALLY TRANSCRIBED RESULTS documented in this encounter Visit Diagnoses Not on filedocumented in this encounter Additional Health Concerns Assessment Noted Time A Body Mass Index follow-up plan has been documented for the patient 11/14/2019 2:01 PM EST documented as of this encounter Care Teams Program Manager Transportation Relationship Specialty Start Date End Date Tonya Dye, VOCATIONAL AUTO BODY INSTRUCTOR-REPLANTER PCP - General Nurse Practitioner 09/07/21 documented as of this encounter
--- OUTSIDE RECORDS SUMMARY | 2025-04-02 12:44 | XMS_ITS | Encounter Summary ---
Author Organization [facility] tem Address [facility] [id number] [place] [address] Care Team Providers Care Sql Server Dba Developer Name Role Phone Tonya Dye VICE PRESIDENT LENDING-GRAPHIC MANAGER Primary Care Provider Encounter Details Date Type Department Care Team (Late st Contact Info) Description 02/03/2025 [facility] [address] [facility] [address] [place] [address] Marie Zambrano CMA Claudication; Cigarette smoker motivated to quit Social History Tobacco Use Types Packs/Day Years [...] got money to buy more. Never True 05/10/2024 Within the past 12 months th e food we bought just didn't last and we didn't have money to get more. Never True 05/10/2024 Purpose - Life Answer Date Recorded Purpose [...] Info) Description 04/14/2025 10:30 AM EDT Appointment [facility] - Cardiovascular [address] [place] [address] Muna Persaud PA-C [address] [place] [address] 07/15/2025 1:15 PM EDT Office Visit [facility] Cardiology [address] [facility] 1 [place] [address] Tamara Rebolledo MD [address] [place] [address] 03/04/2026 2:15 PM EDT Appointment [facility] Vascular [address] [place] [address] Robyn Frazier, VICE PRESIDENT LENDING-GRAPHIC MANAGER [address] [employer], [address] [place] [address] 03/04/2026 3:00 PM EDT Appointment [facility] Vascular [address] [place] [place] [address] Robyn Frazier, VICE PRESIDENT LENDING-GRAPHIC MANAGER [address] [facility] [facility], [address] [place] [address] 04/02/2026 11:50 AM EDT Office Visit [facility] [place] [address] Yaneli Howell MD [address], [facility] [address] [place] [address] documented as of this encounter Visit Diagnoses Diagnosis Claudication Unspecified peripheral vascular disease Cigarette smoker motivated to quit documented in this encounter Additional Health Concerns Assessment Noted Time A Body Mass Index follow-up plan has been documented for the patient 11/14/2019 2:01 PM EST documented as of this encounter Care Teams Sql Server Dba Developer Relationship Specialty Start Date End Date Tonya Dye, VICE PRESIDENT LENDING-GRAPHIC MANAGER PCP - General Nurse Practitioner 09/07/21 documented as of this encounter
--- OUTSIDE RECORDS SUMMARY | 2025-04-02 12:44 | XMS_ITS | Encounter Summary ---
Author Organization [facility] Address [address] [place] [address] Care Team Providers Care Senior Sales Director Name Role Phone Tonya Dye NP Unavailable [phone] Mumtaz Jensen MD Primary Care Provider Tonya Dye NP Unavailable [phone] Encounter Details Date Type Department Care Team (Late st Contact Info) Description 12/21/2023 Orders Only [facility] [address] [place] [address] Tonya Dye NP [address] [place] [address] Social History Tobacco Use Types Packs/Day Years Used Date Smoking Tobacco: Every Day Cigarettes Smokeless Tobacco: Never Alcohol Use Standard Drinks/Week Comments Never 0 (1 standard drink = 0.6 oz pur e alcohol) PHQ-2 Answer Date Recorded Patient Health Questionnaire-2 Score 0 11/29/2023 Sex and Gender Information Value Date Recorded Sex Assigned at Not on file Legal Sex Male 10:09 PM EDT Gender Identity Not on file Sexual Orientation Not on file documented as of this encounter Plan of Treatment Upcoming Encounters Date Type Department Care Team (Late st Contact Info) Description 06/30/2025 1:00 PM EDT Office Visit [facility] [address] [place] [address] Tonya Dye NP [address] [place] [address] 04/02/2026 11:00 AM EDT Office Visit [facility] [address] [place] [address] Tonya Dye NP [address] [place] [address] documented as of this encounter Procedures Procedure Name Priority Date/Time Associated Diagnosis Comments MISCELLANEOUS LAB TEST Routine 12/20/2023 8:15 AM EST MISCELLANEOUS LAB TEST Routine 12/20/2023 8:11 AM EST documented in this encounter Results * - Miscellaneous Test (12/20/2023 8:15 AM EST) Tonya Dye NP LAB BLOOD ORDERABLES Final Resu lt * - Miscellaneous Test (12/20/2023 8:11 AM EST) Tonya Dye BALER LAB BLOOD ORDERABLES Final Resu lt documented in this encounter Visit Diagnoses Not on filedocumented in this encounter Care Teams Senior Sales Director Relationship Specialty Start Date End Date Mumtaz Jensen MD [address] [place] [address] PCP - General Family Medicine 11/28/23 Tonya Dye NP [address] [place] [address] PCP - ACO Reach 11/22/24 Tonya Dye NP Referring Physician Nurse Practitioner 03/09/23 documented as of this encounter
--- OUTSIDE RECORDS SUMMARY | 2025-04-02 12:44 | XMS_ITS | Clinical Summary ---
Author Organization [employer] [facility] Address [id number] [address] [place] [address] Care Team Providers Care Care Partner Name Role Phone Tonya Dye CIS COORDINATOR-INVESTIGATOR FRAUD Primary Care Provider Allergies Active Allergy Reactions Criticality Noted Date Comments Ciprofloxacin Hives 09/07/2021 Penicillins 11/07/2017 Dulaglutide GI Disturbance 11/05/2021 Liraglutide 11/07/2019 Medications metFORMIN (GLUCOPHAGE) 1000 mg tablet 1 tablet (1,000 mg total) in the morning and 1 tablet (1,000 mg total) in the evening. Take with meals. 7 Active pioglitazone (ACTOS) 30 mg tablet Take 1 tablet (30 mg total) by mouth in the morning. 7 Active metoprolol tartrate (LOPRESSOR) 50 mg tablet Take 1 tablet (50 mg total) by mouth in the morning and 1 tablet (50 mg total) before bedtime. 7 Active tamsulosin (FLOMAX) 0.4 mg capsule,extende d release 24hr Take 1 capsule (0.4 mg total) by mouth nightly. 7 Active fluticasone (FLONASE) 50 mcg/actuation nasal sprayIndication s:Obstruction of paranasal sinus Administer 2 sprays into each nostril daily. 16 g 11 8 Active amLODIPine (NORVASC) 5 mg tablet Take 1 tablet (5 mg total) by mouth in the morning. 9 Active gabapentin (NEURONTIN) 300 mg capsule Take 2 capsules (600 mg total) by mouth in the morning and 2 capsules (600 mg total) at noon and 2 capsules (600 mg total) in the evening and 2 capsules (600 mg total) before bedtime. Active glipiZIDE (GLUCOTROL) 10 mg tablet Take 1 tablet (10 mg total) by mouth in the morning. Active ferrous sulfate 325 (65 FE) mg tablet Take 1 tablet (325 mg total) by mouth daily with breakfast. Active cyanocobalamin 1000 MCG tablet Take 1 tablet (1,000 mcg total) by mouth in the morning. Active FARXIGA 10 mg tablet 1 mg in the morning. 3 Active simvastatin (ZOCOR) 20 mg tablet Take 1 tablet (20 mg total) by mouth in the morning. 3 Active clopidogreL (PLAVIX) 75 mg tablet Take 1 tablet (75 mg total) by mouth in the morning. 90 tablet 3 4 Active Active Problems Problem Noted Date Diagnosed Date Cigarette smoker motivated to quit 02/08/2024 Overview (02/08/2024): Counseled on smoking cessation in length. For at least 4 minutes Palatal lesion 06/09/2022 Tinnitus 06/09/2022 Hearing loss 06/09/2022 Obesity (BMI 30.0-34.9) 05/09/2022 Nonrheumatic aortic (valve) stenosis 05/09/2022 Draining postoperative wound 12/03/2021 Primary hypertension 10/26/2021 Pre-op exam 10/26/2021 Claudication 09/21/2021 Overview (09/21/2021): Added automatically from request for surgery [id number] Assessment & Plan (02/08/2024 10:17 AM EDT): Arterial Duplex US RLE PVR Continue Plavix and statin. Smoking cessation. 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 03/29/2024 03/29/2024 Encounters Date Type Department Care Team Description 03/17/2025 Telephone [facility] - [facility] [address] [facility] [place] [address] Marie Zambrano CMA 02/26/2025 Telephone [facility] Vascular [address] [place] [address] Erika Palacios LPN 02/25/2025 Telephone [facility] [address] [place] [address] Yaneli Howell MD 02/20/2025 3:00 PM EDT Office Visit [facility] [place] [address] [place] [address] Robyn Frazier, CIS COORDINATOR-INVESTIGATOR FRAUD PAD (peripheral artery disease) (Primary Dx); Claudication; History of arterial bypass of lower extremity 02/20/2025 Orders Only [facility] [address] [place] [address] Dafne Jimenez [facility] Claudication; PAD (peripheral artery disease); History of arterial bypass of lower extremity 02/20/2025 Travel 02/03/2025 Orders Only [facility] [address] [facility] [address] [place] [address] Marie Zambrano [facility] Claudication; Cigarette smoker motivated to quit 01/16/2025 Telephone [facility] V[facility] Surgery [address] [place] [address] Yaneli Howell MD 01/16/2025 Telephone [facility] [address] [place] [address] Yaneli Howell MD 01/13/2025 9:00 AM EDT Office Visit [facility] [address] [place] [address] Muna Persaud PA-C Moderate aortic valve stenosis (Primary Dx); Mixed hyperlipidemia 01/13/2025 Travel 01/10/2025 Telephone [facility] [address] [place] [address] Tali Naidu from Last 3 Months Immunizations Immunization Administration Dates Next Due Influenza High Dose Preservative Free IM 019 Influenza, Injectable, quadrivalent (PF) 020 Pneumococcal Conjugate 13-Valent 08/07/2019 Pneumococcal Polysaccharide 09/07/2020 Tetanus 08/01/2003 Zoster Live 08/26/2017 Family History Medical History Relation Name Comments Diabetes Brother Heart disease Father Diabetes Maternal Grandfather Kidney disease Maternal Grandmother Diabetes Mother No Known Problems Paternal Grandfather No Known Problems Paternal Grandmother Breast cancer Sister No Known Problems Son Anesthesia problems Neg Hx Relation Name Status Comments Brother Alive Father (Age 90) Maternal Grandfather Maternal Grandmother Mother (Age 81) Paternal Grandfather Paternal Grandmother Sister (Age 62) Son Alive Social History Tobacco Use Types Packs/Day Years [...] on file Sexual Orientation Not on file Last Filed Vital Signs Vital Sign Reading Time Taken Comments Blood Pressure 159/75 02/20/2025 2:43 PM EDT Pulse 81 02/20/2025 2:43 PM EDT Temperature 36.6 C (97.9 F) 04/29/2024 9:40 AM EDT Respiratory Rate 17 04/29/2024 10:35 AM EDT Oxygen Saturation 95% 01/13/2025 8:56 AM EDT Inhaled Oxygen Concentration - - Weight 83.9 kg (185 lb) 02/20/2025 2:43 PM EDT Height 170.2 cm (5' 7 ) 02/20/2025 2:43 PM EDT Body Mass Index 28.98 02/20/2025 2:43 PM EDT Plan of Treatment Upcoming Encounters Date Type Department Care Team (Late st Contact Info) Description 04/14/2025 10:30 AM EDT Appointment [facility] - Cardiovascular [address] [place] [address] Muna Persaud PA-C [address] [place] [address] 07/15/2025 1:15 PM EDT Office Visit [facility] Cardiology [address] [facility] [address] [place] [address] Tamara Rebolledo MD [address] [place] [address] 03/04/2026 2:15 PM EDT Appointment [facility] - Vascular [address] [place] [address] Robyn Frazier, CIS COORDINATOR-INVESTIGATOR FRAUD [address] [facility] [place] [address] 03/04/2026 3:00 PM EDT Appointment [facility] - Vascular [address] [place] [address] Robyn Frazier, CIS COORDINATOR-INVESTIGATOR FRAUD [address] [facility] [place] [address] 04/02/2026 11:50 AM EDT Office Visit [facility] [place] [address] Yaneli Howell MD [address] [place] [address] Health Maintenance Due Date Last Done Comments Tobacco Counseling 1951 Depression Screening 1963 Adult BMI Follow Up Plan 1969 DTaP,Tdap and Td Vaccines (1 - Tdap) 1970 Abdominal Aortic Aneurysm (A AA) Screen 2016 Fall Risk Screening 2016 Zoster (Shingles) Vaccine (3 of 3) 02/11/2023 12/17/2022, 08/26/2017 COVID-19 Vaccine (2023-2 5 season) 2025 07/12/2024, 09/14/2023, 08/11/2022, Additional history exists Influenza Vaccine 06/16/2025 07/12/2024, , 07/27/2022, Additional history exists Adult BMI Screening 02/20/2026 02/20/2025 Tobacco Screening 02/20/2026 02/20/2025 Medical Devices Implanted Type Area Prorate Clerk Device Identifier Shelf Expiration Date Model / Serial / Lot Stent Vsc 6mm 40mm 130cm Dlv Sys Tamra - [id number] Implanted:Qty: 1 on 08/24/2022 by Shirin Howell MD at [facility] Stent [employer] [id number] 12/22/2023 [id number] / / [id number] Insurance MEDICARE COMMERCIAL Care Teams Care Partner Relationship Specialty Start Date End Date Tonya Dye, RAFITA-INVESTIGATOR FRAUD PCP - General Nurse Practitioner 09/07/21
--- OUTSIDE RECORDS SUMMARY | 2025-04-02 12:44 | XMS_ITS | Encounter Summary ---
Author Organization [facility] [facility] tem Address [id number] [address] [place] [address] Care Team Providers Care Wool Hat Flanger Name Role Phone NeptaliTonya mercado Gail WELDER/FITTER-NURSERY SUPERVISOR Primary Care Provider Encounter Details Date Type Department Care Team (Late st Contact Info) Description 12/20/2022 Orders Only [facility] [address] [place] [address] External, Scanning Provider Social History Tobacco Use [...] have Coronavirus / COVID-19? No / Unsure 12/22/2022 1:58 PM EST documented as of this encounter Plan of Treatment Upcoming Encounters Date Type Department Care Team (Late st Contact Info) Description 04/14/2025 10:30 AM EDT Appointment [facility] - Cardiovascular [address] [place] [address] Muna Persaud PA-C [address] [place] [address] 07/15/2025 1:15 PM EDT [facility] [address] [facility] [address] [place] [address] Tamara Rebolledo MD [address] [place] [address] 03/04/2026 2:15 PM EDT Appointment [facility] Vascular [address] [place] [address] Robyn Frazier, WELDER/FITTER-NURSERY SUPERVISOR [address] [facility] [place] [address] 03/04/2026 3:00 PM EDT Appointment [facility] Vascular [address] [place] [address] Robyn Frazier, WELDER/FITTER-NURSERY SUPERVISOR [address] [facility] [place] [address] 04/02/2026 11:50 AM EDT Office Visit [facility] [address] [place] [address] Yaneli Howell MD [address] [facility] [address] [place] [address] documented as of this encounter Visit Diagnoses Not on filedocumented in this encounter Additional Health Concerns Assessment Noted Time A Body Mass Index follow-up plan has been documented for the patient 11/14/2019 2:01 PM EST documented as of this encounter Care Teams Wool Hat Flanger Relationship Specialty Start Date End Date Tonya Dye, WELDER/FITTER-NURSERY SUPERVISOR PCP - General Nurse Practitioner 09/07/21 documented as of this encounter
--- OUTSIDE RECORDS SUMMARY | 2025-04-02 12:44 | XMS_ITS | Encounter Summary ---
Author Organization [employer] [facility] [employer] Address [id number] [address] [place] [address] Care Team Providers Care Apricot Packer Name Role Phone NeptaliTonya mercado Gail LANGUAGE PATHOLOGIST-ASPHALT WORKER Primary Care Provider Encounter Details Date Type Department Care Team (Late st Contact Info) Description 05/27/2021 Orders Only [facility] [address] [place] [address] Ref Prov, [place] [address] Social History Tobacco Use Types Packs/Day Years [...] Info) Description 04/14/2025 10:30 AM EDT Appointment [facility] - Cardiovascular [address] [place] [address] Muna Persaud PA-C [address] [place] [address] 07/15/2025 1:15 PM EDT Office Visit [facility] [address] [place] [address] Tamara Rebolledo MD [address] [place], [place] [address] 03/04/2026 2:15 PM EDT Appointment [facility] Vascular [address] [place] [address] Robyn Frazier, LANGUAGE PATHOLOGIST-ASPHALT WORKER [address] [place] [address] 03/04/2026 3:00 PM EDT Appointment [facility] Vascular [address] [place] [address] Robyn Frazier, LANGUAGE PATHOLOGIST-ASPHALT WORKER [address] [facility] [place] [address] 04/02/2026 11:50 AM EDT Office Visit [facility] [address] [place] [address] Yaneli Howell MD [address] [facility] [address] [place] [address] documented as of this encounter Procedures Procedure Name Priority Date/Time Associated Diagnosis Comments VASC ARTERIAL DOPPLER LOWER BILATERAL MULTI LEVEL/PVR Routine 02/05/2021 documented in this encounter Results * Vas art doppler lwr bilat mult lev/PVR (02/05/2021) Anatomical Region Laterality Modality Vascular Bilateral Ultrasound us Not In System Ref Prov CV VASCULAR ORDERABLES Fi nal Result documented in this encounter Visit Diagnoses Not [...] documented as of this encounter Care Teams Apricot Packer Relationship Specialty Start Date End Date Tonya Dye, RAFITA-ASPHALT WORKER PCP - General Nurse Practitioner 09/07/21 documented as of this encounter
--- OUTSIDE RECORDS SUMMARY | 2025-04-02 12:44 | XMS_ITS | Encounter Summary ---
Author Organization [facility] Address [address] [place] [address] Care Team Providers Care Brick Baker Name Role Phone Mumtaz Jensen MD Primary Care Provider [phone] Tonya Dye SPECIAL EVENTS DIRECTOR Unavailable [phone] Mumtaz Jensen MD Primary Care Provider [phone] Tonya Dye NP Unavailable [phone] Encounter Details Date Type Department Care Team (Late st Contact Info) Description 11/26/2023 Abstract [facility] [address] [place] [address] Tonya Dye, SPECIAL EVENTS DIRECTOR [address] [place] [address] Social History Tobacco Use Types Packs/Day Years [...] on file documented as of this encounter Functional Status * Over the past 2 weeks, how often have you been bothered by any of the following problems? Question Answer Date of Assessment Author Little interest or pleasure in doing things Not at all 11/29/2023 3:42 PM EST HUMBARGER, NATASH A Feeling down, depressed, or hopeless Not at all 11/29/2023 3:42 PM VISHAL RENOLUPE YAOENRIQUE A Patient Health Questionnaire -2 Score 0 11/29/2023 3:42 PM VISHAL CHOWDARYLUPEENRIQUE A documented as of this encounter Plan of Treatment Upcoming Encounters Date Type Department Care Team (Late st Contact Info) Description 06/30/2025 1:00 PM EDT Office Visit [facility] [address] [place] [address] Tonya Dye, SHIVAM [address] [place] [address] 04/02/2026 11:00 AM EDT Office Visit [facility] [address] [place] [address] Tonya Dye, SHIVAM [address] [place] [address] documented as of this encounter Visit Diagnoses Not on filedocumented in this encounter Care Teams Brick Baker Relationship Specialty Start Date End Date Mumtaz Jensen MD PCP - General Family Medicine 10/16/22 11/27/23 Mumtaz Jensen MD [address] [place] [address] PCP - General Family Medicine 11/28/23 Tonya Dye NP [address] [place] [address] PCP - ACO Reach 11/22/24 Tonya Dye NP Referring Physician Nurse Practitioner 03/09/23 documented as of this encounter
--- OUTSIDE RECORDS SUMMARY | 2025-04-02 12:44 | XMS_ITS | Encounter Summary ---
Author Organization [facility] Address [address] [place] [address] Care Team Providers Care Fruit Harvest Worker Name Role Phone Mumtaz Jensen MD Primary Care Provider [phone] Tonya Dye NP Unavailable [phone] Mumtaz Jensen MD Primary Care Provider [phone] Tonya Dye NP Unavailable [phone] Reason for Referral * Consultation (Routine) - Closed Specialty Diagnoses / Procedures Referred By Shaye francisco Referred To Contact Orthopaedic Surgery Diagnoses Bilateral hand pain Tonya Dye NP [address] [place] [address] Phone: tel: fax: Shen Luis MD Phone: tel: fax: Referral ID Status Reason Start Date Expiration Date V isits Requested Visits Authorized [id number] Closed Specialty Services Required 09/26/2023 03/24/2024 1 1 Encounter Details Date Type Department Care Team (Late st Contact Info) Description 09/26/2023 Orders Only [facility] [address] [place] [address] Tonya Dye NP [address] [place] [address] Bilateral hand pain Social History Tobacco Use Types Packs/Day Years Used Date Smoking Tobacco: Every Day Cigarettes Smokeless Tobacco: Never Comments:Current smoker, rafael quency unknown. Smokes 11-20 cigarettes. Alcohol Use Standard Drinks/Week Comments Never 0 (1 standard drink = 0.6 oz pur e alcohol) Sex and Gender Information Value Date Recorded Sex Assigned at Not on file Legal Sex Male 10:09 PM EDT Gender Identity Not on file Sexual Orientation Not on file documented as of this encounter Plan of Treatment Upcoming Encounters Date Type Department Care Team (Late st Contact Info) Description 06/30/2025 1:00 PM EDT Office Visit [facility] [address] [place] [address] Tonya Dye NP [address] [place] [address] 04/02/2026 11:00 AM EDT Office Visit [facility] [address] [place] [address] Tonya Dye NP [address] [place] [address] Scheduled Referrals Name Type Priority Associated Diagnoses Order Schedule Ambulatory referral to Orthopaedic Surgery Outpatient Referral Routine Bilateral hand pain Expected: 09/26/2023 (Approximate), Expires: 03/27/2024 documented as of this encounter Visit Diagnoses Diagnosis Bilateral hand pain documented in this encounter Care Teams Fruit Harvest Worker Relationship Specialty Start Date End Date Mumtaz Jensen MD PCP - General Family Medicine 10/16/22 11/27/23 Mumtaz Jensen MD [address] [place] [address] PCP - General Family Medicine 11/28/23 Tonya Dye NP [address] [facility] [place] [address] PCP - ACO Reach 11/22/24 Tonya Dye NP Referring Physician Nurse Practitioner 03/09/23 documented as of this encounter
--- OUTSIDE RECORDS SUMMARY | 2025-04-02 12:44 | XMS_ITS | Encounter Summary ---
Author Organization [facility] [facility] tem Address [id number] [address] [place] [address] Care Team Providers Care Dairy Helper Name Role Phone NeptaliTonya mercado Gail PSYCHOMETRIC EXAMINER-POULTRY KILLER Primary Care Provider Encounter Details Date Type Department Care Team (Late st Contact Info) Description 08/17/2021 Orders Only [facility] [address] [place] [address] Ref Prov, [place] [address] Social History Tobacco Use Types Packs/Day Years [...] have Coronavirus / COVID-19? No / Unsure 08/12/2021 11:10 AM EDT documented as of this encounter Plan of Treatment Upcoming Encounters Date Type Department Care Team (Late st Contact Info) Description 04/14/2025 10:30 AM EDT Appointment [facility] - Cardiovascular [address] [place] [address] Muna Persaud PA-C [address] [place] [address] 07/15/2025 1:15 PM EDT Office Visit [facility] [address] [place] [address] Tamara Rebolledo MD [address] [place] [address] 03/04/2026 2:15 PM EDT Appointment [facility] - Vascular [address] [place] [address] Robyn Frazier, PSYCHOMETRIC EXAMINER-POULTRY KILLER [address] [employer], [address] [place] [address] 03/04/2026 3:00 PM EDT Appointment [facility] - Vascular [address] [place] [address] Robyn Frazier, PSYCHOMETRIC EXAMINER-POULTRY KILLER [address] [employer] [place] [address] 04/02/2026 11:50 AM EDT Office Visit [facility] [place] [address] Yaneli Howell MD [address] [facility] [address] [place] [address] documented as of this encounter Procedures Procedure Name Priority Date/Time Associated Diagnosis Comments VASC ARTERIAL DOPPLER LOWER BILATERAL MULTI LEVEL/PVR Routine 07/13/2021 VASC ARTERIAL DUPLEX LOWER S DAVID LEFT Routine 05/26/2021 documented in this encounter Results * Vas art doppler lwr bilat mult lev/PVR (07/13/2021) Anatomical Region Laterality Modality Vascular Bilateral Ultrasound us Not In System Ref Prov CV VASCULAR ORDERABLES Fi nal Result * Vas art duplex lwr single left (05/26/2021) Anatomical Region Laterality Modality Vascular Left Ultrasound us Not In System Ref Prov [...] documented as of this encounter Care Teams Dairy Helper Relationship Specialty Start Date End Date Tonya Dye, RAFITA-POULTRY KILLER PCP - General Nurse Practitioner 09/07/21 documented as of this encounter
--- OUTSIDE RECORDS SUMMARY | 2025-04-02 12:44 | XMS_ITS | Encounter Summary ---
Author Organization [facility] Address [address] [place] [address] Care Team Providers Care Trade Clerk Name Role Phone Tonya Dye PROJECT ASSISTANT Unavailable [phone] Mumtaz Jensen MD Primary Care Provider [phone] Tonya Dye NP Unavailable [phone] Encounter Details Date Type Department Care Team (Late st Contact Info) Description 12/05/2023 Clinisync Result Encounter [facility] External Department Unsolicited Tonya Dye NP [address] [place] [address] Social History Tobacco Use Types Packs/Day Years [...] 06/30/2025 1:00 PM EDT [facility] [address] [place] [phone] Tonya Dye NP [address] [place] [address] 04/02/2026 11:00 AM EDT Office Visit [facility] [address] [place] [address] Tonya Dye, SHIVAM [address] [place] [address] documented as of this encounter Procedures Procedure Name Priority Date/Time Associated Diagnosis Comments CT SINUS WO CON 12/05/2023 1:25 PM EST MLR HEMOGLOBIN A1C Routine 12/05/2023 1: 05 PM EST documented in this encounter Results * CT SINUS WO CON (12/05/2023 1:25 PM EST) Anatomical Region Laterality Modality Other 12/05/2023 1:25 PM EST Narrative 12/05/2023 1:28 [place] [address] CT Scan Report Signed Patient: TERRI LOWE MR#: [id number] : 1950 Acct:[id number] Age/Sex: 73 / M ADM Date: 12/05/23 Loc: CT Attending Dr: Tonya Dye NP Ordering Physician: Tonya Dye NP Date of Service: 12/05/23 Procedure(s): CT sinus wo con Accession Number(s): [id number] cc: Tonya Dye NP [address] [address] Patient Name: TERRI LOWE MRN: [id number] date: 1950 Sex: M Assigned Patient Location: CT Current Patient Location: CT Accession/Order Number: [id number] Exam Date: 12/05/2023 12:53 Report Date: 12/05/2023 13:25 At the request of: TONYA DYE Procedure: CT sinus wo con EXAM: CT sinus wo con HISTORY: 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 TECHNIQUE: Contiguous axial CT images of the sinuses obtained without contrast. Coronal and sagittal reconstructions performed. Dose reduction techniques were achieved by using automated exposure control and/or adjustment of mA and/or kV according to patient size and/or use of iterative reconstruction technique. FINDINGS: There is minimal mucosal thickening of the bilateral maxillary sinuses. Otherwise, the paranasal sinuses are well-aerated without mucosal thickening or air-fluid level. Bilateral infundibulum of the ostiomeatal complexes are narrow but patent. The frontoethmoidal recesses are patent bilaterally. 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 There is moderate rightward bony nasal septal deviation with a bony spur.. There are no acute fracture, destructive lesion or sclerosis of bony structures. The visualized mastoid air cells and middle ear cavities are clear. There is no proptosis. The extraocular muscles are intact. CT/CT sinus wo con IMPRESSION: No evidence of acute sinusitis. Minimal mucosal thickening of the bilateral maxillary sinuses. Otherwise, the paranasal sinuses are clear and well-aerated. Bilateral infundibulum of the ostiomeatal complexes are narrow but patent. Moderate rightward deviation of nasal septum with a bony spur. Electronically authenticated by: JONNIE GARCIA Date: 12/05/2023 13:25 Dictated By: JONNIE GARCIA M.D. Signed By: 12/05/23 1328 DD/ 1325 TD/TT: Aerospace Stress Engineer: Procedure Note Radiology, Radiologist, MD - 12/05/2023 [place] [address] CT Scan Report Signed Patient: TERRI LOWE JMR#: [id number] : 1950cct:[id number] Age/Sex: 73 / MADM Date: 12/05/23 Loc: CT Attending Dr: Tonya Dye NP Ordering Physician: Tonya Dye NP Date of Service: 12/05/23 Procedure(s): CT sinus wo con Accession Number(s): [id number] cc: Tonya Dye NP [facility] [place] [id number] Patient Name: TERRI LOWE MRN: [facility]:[id number] date: 1950 Sex: M Assigned Patient Location: CT Current Patient Location: CT Accession/Order Number: [id number] Exam Date: 12/05/2023 12:53 Report Date: 12/05/2023 13:25 At the request of: TONYA DYE Procedure: CT sinus wo con EXAM: CT sinus wo con HISTORY: 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 TECHNIQUE: Contiguous axial CT images of the sinuses obtained without contrast. Coronal and sagittal reconstructions performed. Dose reduction techniqueswere achieved by using automated exposure control and/or adjustment of mAand/or kV according to patient size and/or use of iterative reconstructiontechnique. FINDINGS: There is minimal mucosal thickening of the bilateral maxillary sinuses. Otherwise, the paranasal sinuses are well-aerated without mucosalthickening or air-fluid level. Bilateral infundibulum of the ostiomeatal complexes are narrow but patent.The frontoethmoidal recesses are patent bilaterally. There is hypoplasia ofright frontal, bilateral maxillary and sphenoid sinuses. There is moderate rightward bony nasal septal deviation with a bony spur.. There are no acute fracture, destructive lesion or sclerosis of bony structures. The visualized mastoid air cells and middle ear cavities are clear. Thereis no proptosis. The extraocular muscles are intact. CT/CT sinus wo con IMPRESSION: No evidence of acute sinusitis. Minimal mucosal thickening of the bilateral maxillary sinuses. Otherwise,the paranasal sinuses are clear and well-aerated. Bilateral infundibulum ofthe ostiomeatal complexes are narrow but patent. Moderate rightward deviation of nasal septum with a bony spur. Electronically authenticated by: JONNIE GARCIA Date: 12/05/2023 13:25 Dictated By: JONNIE GARCIA M.D. Signed By:12/05/23 1328 DD/ 1325 TD/TT: Aerospace Stress Engineer: us Tonya Dye NP [facility] Final Result * (ABNORMAL) MLR HEMOGLOBIN A1C (12/05/2023 1:05 PM EST) GLYCOHEMOGLOBIN A1C 8.3(H) 4.5 - 6.2 % TB Comment: ADA RECOMMENDED LIMIT 4.0 - 6.0 ADA THERAPEUTIC TARGET < 7.0 ACTION SUGGESTED > 7.0 ESTIMATED AVERAGE GLUCOSE 192 mg/dL [facility] 12/05/2023 1:05 PM EST 12/05/2023 1:13 PM EST Narrative [facility] - 12/05/2023 2:16 PM EST us Tonya Dye NP [facility] Final [facility] documented in this encounter Visit Diagnoses Not on filedocumented in this encounter Care Teams Trade Clerk Relationship Specialty Start Date End Date Mumtaz Jensen MD [address] [place] [phone] PCP - General Family Medicine 11/28/23 Tonya Dye NP [address] [place] [phone] PCP - ACO Reach 11/22/24 Tonya Dye NP Referring Physician Nurse Practitioner 03/09/23 documented as of this encounter
--- OUTSIDE RECORDS SUMMARY | 2025-04-02 12:44 | XMS_ITS | Encounter Summary ---
Author Organization [facility] Address [address] [place] [address] Care Team Providers Care Oven Equipment Repairer Name Role Phone Tonya Dye SUPERVISOR [employer] Unavailable [phone] Mumtaz Jensen MD Primary Care Provider [phone] Tonya Dye SUPERVISOR [employer]OR[employer] Unavailable [phone] Encounter Details Date Type Department Care Team (Late st Contact Info) Description 02/05/2024 Abstract [facility] [address] [place] [address] Sofia Hernandez MA Social History Tobacco Use Types Packs/Day Years Used Date Smoking Tobacco: Every Day Cigarettes Smokeless Tobacco: Never Alcohol Use Standard Drinks/Week Comments Never 0 (1 standard drink = 0.6 oz pur e alcohol) PHQ-2 Answer Date Recorded Patient Health Questionnaire-2 Score 0 01/16/2024 Sex and Gender Information Value Date Recorded Sex Assigned at Not on file Legal Sex Male 10:09 PM EDT Gender Identity Not on file Sexual Orientation Not on file documented as of this encounter Plan of Treatment Upcoming Encounters Date Type Department Care Team (Late st Contact Info) Description 06/30/2025 1:00 PM EDT Office Visit [facility] [address] [place] [phone] Tonya Dye NP [address] [place] [phone] 04/02/2026 11:00 AM EDT Office Visit [facility] [address] [place] [address] Tonya Dye NP [address] [place] [phone] documented as of this encounter Visit Diagnoses Not on filedocumented in this encounter Care Teams Oven Equipment Repairer Relationship Specialty Start Date End Date Mumtaz Jensen MD [address] [place] [phone] PCP - General Family Medicine 11/28/23 Tonya Dye NP [address] [place] [phone] PCP - ACO Reach 11/22/24 Tonya Dye NP Referring Physician Nurse Practitioner 03/09/23 documented as of this encounter
--- OUTSIDE RECORDS SUMMARY | 2025-04-02 12:44 | XMS_ITS | Clinical Summary ---
Author Organization [facility] Address [address] [place] [address] Care Team Providers Care Ping Pong Table Assembler Name Role Phone Tonya Dye NP Unavailable [phone] Mumtaz Jensen MD Primary Care Provider Tonya Dye EVISCERATOR Unavailable [phone] Allergies Active Allergy Reactions Criticality Noted Date Comments Cefaclor 09/19/2023 Ciprofloxacin Unknown 03/09/2023 Dulaglutide Unknown 03/09/2023 Liraglutide Unknown 03/09/2023 Penicillin G Unknown 03/09/2023 Medications Ventolin HFA 108 (90 Base) MCG/ACT inhaler Inhale 2 puffs every 4 (four) hours if needed for wheezing or shortness of breath 03/12/20 24 Active tamsulosin (Flomax) 0.4 MG 24 hr capsule Take 0.8 mg by mouth at bedtime 10/07/20 24 Active amLODIPine (Norvasc) 5 MG tabletIndications: Primary hypertension Take 1 tablet (5 mg) by mouth Daily 90 tablet 1 03/03/20 025 Active fluticasone (Flonase) 50 MCG/ACT nasal sprayIndications:A llergic rhinitis, unspecified seasonality, unspecified trigger Administer 2 sprays into each nostril Daily Shake gently. Before first use, prime pump. After use, clean tip and replace cap. 48 g 2 03/03/20 025 Active gabapentin (Neurontin) 600 MG tabletIndications: Diabetic polyneuropathy associated with type 2 diabetes mellitus (HCC) 1 am , 1 in the afternoon, and 2 at bedtime 360 tablet 03/03/20 Active glipiZIDE (Glucotrol) 10 MG tabletIndications: Uncontrolled type 2 diabetes mellitus with hyperglycemia (HCC) Take 1 tablet (10 mg) by mouth in the morning and 1 tablet (10 mg) in the evening. Take before meals. 180 tablet 1 03/03/20 025 Active metFORMIN (Glucophage) 1000 MG tabletIndications: Uncontrolled type 2 diabetes mellitus with hyperglycemia (HCC) Take 1 tablet (1,000 mg) by mouth in the morning and 1 tablet (1,000 mg) in the evening. Take with meals. 180 tablet 03/03/20 025 Active metoprolol tartrate (Lopressor) 50 MG tabletIndications: Primary hypertension,PAD (peripheral artery disease) Take 1 tablet (50 mg) by mouth in the morning and 1 tablet (50 mg) before bedtime. Take 50 mg by mouth. 180 tablet 03/03/20 025 Active pantoprazole (ProtoNix) 40 MG EC tabletIndications: Acute gastritis without hemorrhage, unspecified gastritis type Take 1 tablet (40 mg) by mouth in the morning. Take before meals. 90 tablet 03/03/20 025 Active pioglitazone (Actos) 30 MG tabletIndications: Uncontrolled type 2 diabetes mellitus with hyperglycemia (HCC) Take 1 tablet (30 mg) by mouth Daily 90 tablet 1 03/03/20 025 Active simvastatin (Zocor) 20 MG tabletIndications: PAD (peripheral artery disease) Take 1 tablet (20 mg) by mouth at bedtime 1 po daily 90 tablet 1 03/03/20 025 Active dapagliflozin (Farxiga) 10 MGIndications:Unco ntrolled type 2 diabetes mellitus with hyperglycemia (HCC) Take 1 tablet (10 mg) by mouth Daily 90 tablet 1 03/03/20 025 Active clopidogrel (Plavix) 75 MG tablet Take 75 mg by mouth Daily 01/20/20 25 Active glucose blood (Accu-Chek Nicolle Plus) test stripIndications:U ncontrolled type 2 diabetes mellitus with hyperglycemia (HCC) 1 each by Other route Daily 1 each by Other route Daily 100 each 3 03/27/20 25 025 Active traZODone (Desyrel) 50 MG tabletIndications: Primary insomnia Take 1 tablet (50 mg) by mouth at bedtime 30 tablet 1 03/27/20 25 025 Active glucose blood (Accu-Chek Nicolle Plus) test stripIndications:U ncontrolled type 2 diabetes mellitus with hyperglycemia (HCC) 1 each by Other route Daily 1 each by Other route Daily 100 each 3 03/03/20 25 025 Discontin ued(Reord er) Active Problems Problem Noted Date Diagnosed Date Primary insomnia 03/27/2025 Assessment & Plan (03/27/2025 2:57 PM EDT): Awake off and on, cannot shut off mind Add trazodone See if helps Other acute sinusitis 01/29/2025 Mild nonproliferative diabet ic retinopathy of both eyes without macular edema associated with type 2 diabetes mellitus 11/22/2024 Overview (11/22/2024): Eye exam 11/21/24 Type 2 diabetes mellitus wit h diabetic peripheral angiopathy without gangrene 11/20/2024 Type 2 diabetes mellitus, wi thout long-term current use of insulin 08/20/2024 Assessment & Plan (03/27/2025 2:39 PM EDT): Check blood sugars daily, notify if <70 [...] and metformin A1c 7.9% 03/27/25 8.9% 11/20/24 Assessment & Plan (11/20/2024 2:20 PM EST): Check blood sugars daily, notify if <70 [...] farxiga, statin, MATIAS, actos, and metformin A1c 8.9% 11/20/24 Assessment & Plan (08/20/2024 7:01 AM EST): Check blood sugars daily, notify if <70 [...] diet low in carbohydrates, and simple sugars. UTD on A1c test as well Hemorrhage due to aspirin therapy 08/20/2024 Assessment & Plan (08/20/2024 2:44 PM EST): Was in hospital with GI bleeding, so asa was discontinued Bilateral carotid bruits 08/20/2024 Assessment & Plan (08/20/2024 2:56 PM EST): Hx PAD, CAD , HTN and DM Check US Acute gastritis without hemorrhage 07/22/2024 Assessment & Plan (07/22/2024 3:03 PM EDT): Symptoms improved with use of PPI, as well as carafate Will have him restart the pantoprazole Fu in 4 weeks Type 2 diabetes mellitus wit h circulatory disorder, without long-term current use of insulin 06/04/2024 Assessment & Plan (03/27/2025 2:50 PM EDT): Check blood sugars daily, notify if <70 [...] farxiga, glipizide, metformin, pioglitazone A1c: 7.9% 03/27/25 Assessment & Plan (11/20/2024 2:19 PM EST): Check blood sugars daily, notify if <70 [...] diet low in carbohydrates, and simple sugars. Assessment & Plan (06/04/2024 2:11 PM EDT): No changes in meds or doses Check labs Fu in 3 months Nonrheumatic aortic valve stenosis 03/20/2024 Overview (03/20/2024): ECHO 03/10/24: EF 60-65%, diastolic dysfunction, AV: severe calcified , severe diminished mobility Assessment & Plan (04/04/2024 10:07 AM EDT): Scheduled for heart cath in April Elevated brain natriuretic peptide (BNP) level 0 03/14/2024 Assessment & Plan (03/14/2024 11:56 AM EDT): Will obtain ECHO report from hospitalization Screening for prostate cancer 02/27/2024 Overview (03/05/2024): 0.47, 03/05/24 Encounter for subsequent [facility] wellness visit (AWV) in Medicare patient 02/27/2024 Assessment & Plan (03/27/2025 6:57 AM EDT): Reviewed Ht/Wt/BMI Recommend eye exam yearly Recommend dental exams twice a year Balance work/leisure activities Exercises is recommended most days of the week (appropriate as chronic conditions allow) Follow up yearly and prn Assessment & Plan (02/27/2024 12:53 PM EDT): Reviewed Ht/Wt/BMI Recommend eye exam yearly Recommend dental exams twice a year Balance work/leisure activities Exercises is recommended most days of the week (appropriate as chronic conditions allow) Follow up yearly and prn Diverticulitis 02/27/2024 Assessment & Plan (08/20/2024 2:47 PM EST): Currently no symptoms Assessment & Plan (02/27/2024 12:55 PM EDT): resolved Overweight (BMI 25.0-29.9) 02/27/2024 Cigarette smoker motivated to quit 02/08/2024 Overview (02/27/2024): Counseled on smoking cessation in length. For at least 4 minutes Urine retention 01/16/2024 Assessment & Plan (01/16/2024 10:27 AM EDT): Check UA and culture Dysosmia 01/15/2024 Neck pain 11/29/2023 Heart murmur 11/29/2023 Assessment & Plan (06/04/2024 2:10 PM EDT): Reveiwed NOHEMI Bilateral carpal tunnel syndrome 11/29/2023 Frequent PVCs 11/29/2023 Abnormal stress test 11/29/2023 Ringing in ears, right 11/29/2023 Popliteal cyst, right 11/29/2023 Olecranon bursitis of right elbow 11/29/2023 Olecranon bursitis of left elbow 11/29/2023 Foraminal stenosis of cervical region 11/29/2023 DDD (degenerative disc disease), cervical 2023 Type 2 diabetes mellitus wit h unspecified diabetic retinopathy without macular edema 11/29/2023 Allergic rhinitis 11/29/2023 Ageusia 11/29/2023 Type 2 diabetes mellitus with diabetic polyneuro ryan 11/29/2023 Assessment & Plan (03/27/2025 6:55 AM EDT): Is currently taking gabapentin OARRS reviewed Recommend tight blood sugar control, proper fitting shoes, freq foot checks Assessment & Plan (11/20/2024 6:48 AM EST): Is currently taking gabapentin OARRS reviewed Recommend tight blood sugar control Assessment & Plan (11/20/2024 6:45 AM EST): >>ASSESSMENT AND PLAN FOR DIABETIC POLYNEUROPATHY ASSOCIATED WITH TYPE 2 DIABETES MELLITUS ([facility]) WRITTEN ON 01/16/2024 10:23 AM BY TONYA DYE NP OARRS reviewed Increase gabapentin dose 600mg Fu in 6 weeks Assessment & Plan (11/20/2024 6:45 AM EST): >>ASSESSMENT AND PLAN FOR DIABETIC POLYNEUROPATHY ASSOCIATED WITH TYPE 2 DIABETES MELLITUS ([facility]) WRITTEN ON 04/04/2024 10:06 AM BY TONYA DYE NP Continue current gabapentin dose Fu in 2 months Assessment & Plan (11/20/2024 6:45 AM EST): >>ASSESSMENT AND PLAN FOR DIABETIC POLYNEUROPATHY ASSOCIATED WITH TYPE 2 DIABETES MELLITUS ([facility]) WRITTEN ON 06/04/2024 2:10 PM BY TONYA DYE NP Cont w memo Assessment & Plan (11/20/2024 6:45 AM EST): >>ASSESSMENT AND PLAN FOR DIABETIC POLYNEUROPATHY ASSOCIATED WITH TYPE 2 DIABETES MELLITUS ([facility]) WRITTEN ON 08/20/2024 7:01 AM BY TONYA DYE NP Continue with gabapentin Tight glucose control BPH (benign prostatic hyperplasia) 10/31/2023 Assessment & Plan (08/20/2024 2:47 PM EST): Improved with increase dose of flomax No other work up at this time Assessment & Plan (02/27/2024 12:54 PM EDT): Much better w increase in prostate meds Bradycardia 10/31/2023 Diabetic retinopathy 10/31/2023 Diastolic dysfunction 10/31/2023 Assessment & Plan (03/27/2025 6:55 AM EDT): Per ECHO findings Current meds: amlodipine, farxiga, b shima HTN (hypertension) 10/31/2023 Assessment & Plan (03/27/2025 6:56 AM EDT): Please check blood pressure daily and record DASH diet Limit caffeine Take medication as directed Contact office if chest pain, pressure, dizziness, shortness of breath, swelling legs Recommend slow position changes Current meds: amlodipine and b shima Assessment & Plan (11/20/2024 2:38 PM EST): Please check blood pressure daily and record DASH diet Limit caffeine Take medication as directed Contact office if chest pain, pressure, dizziness, shortness of breath, swelling legs Recommend slow position changes Current meds: amlodipine and b shima Assessment & Plan (08/20/2024 6:55 AM EST): Please check blood pressure daily and record DASH diet Limit caffeine Take medication as directed Contact office if chest pain, pressure, dizziness, shortness of breath, swelling legs Recommend slow position changes Assessment & Plan (06/04/2024 2:10 PM EDT): No changes in med dose Assessment & Plan (04/04/2024 10:07 AM EDT): Has not taken his blood pressure meds yet today No changes in dose Assessment & Plan (03/14/2024 11:55 AM EDT): stable Assessment & Plan (02/27/2024 12:53 PM EDT): Stable, no changes in meds or doses Check labs Assessment & Plan (11/29/2023 4:34 PM EST): No changes needed in medication regimine Hyperlipidemia 10/31/2023 Assessment & Plan (03/27/2025 6:58 AM EDT): On statin therapy Recommend yearly lab checks and prn dose changes Assessment & Plan (11/20/2024 6:59 AM EST): On statin therapy Recommend yearly lab checks and prn dose changes Iron deficiency anemia 10/31/2023 Assessment & Plan (11/20/2024 6:58 AM EST): Check labs Assessment & Plan (02/27/2024 12:54 PM EDT): Check labs Lumbar radiculopathy 10/31/2023 Mass of adrenal gland 10/31/2023 Panic disorder 10/31/2023 PVCs (premature ventricular contractions) 2023 Seasonal allergies 10/31/2023 Tobacco user 10/31/2023 Assessment & Plan (03/27/2025 6:58 AM EDT): The patient has been advised of the risks of continued smoking: stroke, HI, all forms of cancer, lung disease, and . Options for quitting smoking include: cold turkey, hypnosis, acupuncture, nicotine replacement meds (gum, lozenges, and patches), Buproprion, and Varenicline. At this time pt is encouraged to evaluate their goals for wanting to quit smoking, and reach out to provider when ready to start this process Assessment & Plan (11/20/2024 6:59 AM EST): The patient has been advised of the risks of continued smoking: stroke, HI, all forms of cancer, lung disease, and . Options for quitting smoking include: cold turkey, hypnosis, acupuncture, nicotine replacement meds (gum, lozenges, and patches), Buproprion, and Varenicline. At this time pt is encouraged to evaluate their goals for wanting to quit smoking, and reach out to provider when ready to start this process Assessment & Plan (08/20/2024 7:02 AM EST): The patient has been advised of the risks of continued smoking: stroke, HI, all forms of cancer, lung disease, and . Options for quitting smoking include: cold turkey, hypnosis, acupuncture, nicotine replacement meds (gum, lozenges, and patches), Buproprion, and Varenicline. At this time pt is encouraged to evaluate their goals for wanting to quit smoking, and reach out to provider when ready to start this process Assessment & Plan (06/04/2024 2:11 PM EDT): The patient has been advised of the risks of continued smoking: stroke, HI, all forms of cancer, lung disease, and . Options for quitting smoking include: cold turkey, hypnosis, acupuncture, nicotine replacement meds (gum, lozenges, and patches), Buproprion, and Varenicline. At this time pt is encouraged to evaluate their goals for wanting to quit smoking, and reach out to provider when ready to start this process Assessment & Plan (04/04/2024 10:08 AM EDT): The patient has been advised of the risks of continued smoking: stroke, HI, all forms of cancer, lung disease, and . Options for quitting smoking include: cold turkey, hypnosis, acupuncture, nicotine replacement meds (gum, lozenges, and patches), Buproprion, and Varenicline. At this time pt is encouraged to evaluate their goals for wanting to quit smoking, and reach out to provider when ready to start this process Vitamin B12 deficiency 10/31/2023 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 09/19/2023 Assessment & Plan (11/29/2023 4:38 PM EST): Will order CT sinuses to see if chronic sinusitis is part of the problem Assessment & Plan (09/19/2023 1:30 PM EST): Pt has had loss of smell for over 3 months, limited taste as well, no obvious sinus symptoms Recommend that we trial atb, cont nasal steroids Contact office in about 3 weeks to see if resolved, if not send to ENT Discussed differentials such as : age, tumor, sinus Psoriasis 03/09/2023 Right carpal tunnel syndrome 03/09/2023 Hearing loss 06/09/2022 Palatal lesion 06/09/2022 Tinnitus 06/09/2022 Pre-op exam 10/26/2021 PAD (peripheral artery disease) 09/21/2021 Overview (10/31/2023): Added automatically from request for surgery [id number] Assessment & Plan (11/20/2024 6:55 AM EST): Continues with vascular doctor Current meds: plavix, statin Recommend good BP and DM control Assessment & Plan (08/20/2024 6:55 AM EST): Cont plavix, and statin Assessment & Plan (06/04/2024 2:10 PM EDT): Cont plavix, and statin Assessment & Plan (04/04/2024 10:06 AM EDT): Continue with vascular, plavix Stable at this time Assessment & Plan (01/16/2024 10:25 AM EDT): Continue with vascular, plavix Suspect his leg pain is more related neuropathy Claudication 09/21/2021 Overview (02/27/2024): Added automatically from request for surgery [id number] Last Assessment & Plan: Arterial Duplex US RLE PVR Continue Plavix and statin. Smoking cessation. Sebaceous cyst 11/07/2019 Assessment & Plan (11/29/2023 4:36 PM EST): Still waiting on approval from vascular to stop plavix for proceedure Resolved Problems Problem Noted Date Diagnosed Date Resolved Date Heart failure, unspecified 11/20/2024 0 03/27/2025 Assessment & Plan (11/20/2024 6:53 AM EST): Per ECHO findings Farxiga and b shima therapy Pneumonia due to infectious organism 03/14/2024 08/20/2024 Assessment & Plan (04/04/2024 10:06 AM EDT): Resolved, no breathing issues Assessment & Plan (03/14/2024 11:55 AM EDT): Finish atb, no acute distress today Fu in 3 weeks for recheck Discussed although no formal testing likely COPD/Emphysema At this time no further testing Peripheral neuropathy 11/29/20232023 Uncontrolled type 2 diabetes mellitus with hyperglycemia 11/29/2023 06/04/2024 Assessment & Plan (04/04/2024 10:07 AM EDT): A1c is improving, no med changes noted Assessment & Plan (02/27/2024 12:54 PM EDT): Check blood sugars daily, notify if <70 [...] diet low in carbohydrates, and simple sugars. Assessment & Plan (11/29/2023 4:35 PM EST): Check blood sugars daily, notify if <70 [...] at this time 3 months ago 7.8% Incisional infection 11/29/2023 024 BMI 29.0-29.9,adult 10/31/2023 04/04/20 24 Diabetes 10/31/2023 04/04/2024 Diabetic neuropathy 10/31/2023 08/20/20 24 Conjunctivitis 03/09/2023 04/04/2024 Mild aortic stenosis 05/09/2022 024 Obesity (BMI 30.0-34.9) 05/09/202203/17 Draining postoperative wound 12/03/2021 11/29/2023 Encounters Date Type Department Care Team Description 03/27/2025 2:00 PM EDT Office Visit [facility] [address] [place] [address] Tonya Dye NP Encounter for subsequent annual wellness visit (AWV) [...] diabetes mellitus with hyperglycemia (HCC); Primary insomnia 03/27/2025 Bamboo flowsheet [facility] [address] [place] [address] Tonya Dye NP 03/03/2025 Refill [facility] [address] [place] [address] Tonya Dye NP Uncontrolled type 2 diabetes mellitus with hyperglycemia (HCC) 03/03/2025 Refill [facility] [address] [place] [address] Tonya Dye NP Uncontrolled type 2 diabetes mellitus with hyperglycemia (HCC) 03/03/2025 Refill [facility] [address] [place] [phone] Tonya Dye NP Primary hypertension ; Allergic rhinitis, unspecified seasonality, unspecified trigger; Diabetic polyneuropathy associated with type 2 diabetes mellitus (HCC); Uncontrolled type 2 diabetes mellitus with hyperglycemia (HCC); PAD (peripheral artery disease); Acute gastritis without hemorrhage, unspecified gastritis type 03/03/2025 Telephone [facility] [address] [place] [phone] Tonya Dye NP 02/03/2025 Clinisync Result Encounter [facility] Unsolicited Provider, Generic External Data 01/29/2025 Refill [facility] [address] [place] [phone] Tonya Dye NP Acute non-recurrent sinusitis of other sinus (Primary Dx) 01/29/2025 Telephone [facility] [address] [place] [phone] Tonya Dye NP Medication Question from Last 3 Months Immunizations Immunization Administration Dates Next Due Influenza, High Dose Seasonal, Preservative Free 07/25/2019 Influenza, High-dose Seasona l, Quadrivalent, Preservative Free 08/03/2023 Influenza, injectable, quadrivalent, preservativ e free 07/27/2022,06/30/2020 Influenza, trivalent, adjuvanted 07/12/2024 Pneumococcal Conjugate PCV 13 08/07/2019 Pneumococcal Polysaccharide PPSV23 09/07/2020 Tetanus toxoid, adsorbed 08/01/2003 Zoster, Recombinant 12/17/2022 Zoster, live 08/26/2017 Family History Relation Name Status Comments Father Mother Social History Tobacco Use Types Packs/Day Years Used Date Smoking Tobacco: Every Day Cigarettes Smokeless Tobacco: Never Tobacco Cessation:Ready to Q uit: Not Asked; Counseling Given: Not Answered Alcohol Use Standard Drinks/Week Comments Never 0 [...] (187 lb) 03/27/2025 2:04 PM EDT Height 170.2 cm (5' 7 ) 08/20/2024 2:27 PM EST Body Mass Index 29.29 08/20/2024 2:27 PM EST Plan of Treatment Upcoming Encounters Date Type Department Care Team (Late st Contact Info) Description 06/30/2025 1:00 PM EDT Office Visit [facility] [address] [place] [address] Tonya Dye NP [address] [place] [address] 04/02/2026 11:00 AM EDT Office Visit [facility] [address] [place] [address] Tonya Dye NP [address] [place] [address] Health Maintenance Due Date Last Done Comments CT Colonography 1950 FIT-DNA 1950 FIT 1950 FOBT 1950 Sigmoidoscopy 1950 Diabetes: Urine Protein Screening 03/05/2025 024, 01/27/2023 Diabetes: Hemoglobin A1C 06/27/2025 025, 11/20/2024, 06/24/2024, Additional history exists Diabetes: Retinopathy Screening 11/21/2025 11/21/2024, 11/22/2023, 04/15/2022 Medicare Annual Wellness (AWV) 03/27/2026 0 03/27/2025, 02/27/2024, 02/27/2024 Colonoscopy 10/16/2026 10/16/2016 Colorectal Cancer Screening 10/16/2026 Pneumococcal Vaccine: 65+ Years Completed , 08/07/2019 Influenza Vaccine Completed 07/12/2024, , 07/27/2022, Additional history exists Procedures Procedure Name Priority Date/Time Associated Diagnosis Comments POCT GLYCOSYLATED HEMOGLOBIN (HGB A1C) Routine 03/27/2025 2:37 PM EDT Type 2 diabetes mellitus with diabetic peripheral angiopathy without gangrene, without long-term current use of insulin (HCC) SEGMENTAL BLOOD PRESSURE 02/03/2025 1:39 PM EDT from Last 3 Months Results * (ABNORMAL) POCT glycosylated hemoglobin (Hb A1C) docked device (03/27/2025 2:37 PM EDT) Hemoglobin A1C 7.9 Blood Venous blood specimen / Unknown 03/27/2025 2:37 PM EDT Tonya Dye NP POINT OF CARE TEST ENTER/EDIT O RDERABLES Final Result * SEGMENTAL BLOOD PRESSURE (02/03/2025 1:39 PM EDT) Anatomical Region Laterality Modality Radiographic Mary ging 02/03/2025 1:39 PM EDT Narrative 02/03/2025 10:03 [place] [address] Cardiology Report Signed Patient: TERRI LOWE MR#: [id number] : 1950 Acct:[id number] Age/Sex: 74 / M ADM Date: 02/03/25 Loc: CARD Attending Dr: Yaneli Howell M.D. Ordering Physician: Yaneli Howell M.D. Date of Service: 02/03/25 Procedure(s): CA segmental UE or LE AIMEE Accession Number(s): [id number] cc: Tonya Dye EVISCERATOR; Yaneli Howell M.D. 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 Interpretive Statements Summary of the findings: Right leg: MALATHI= 1.0; TBI= 0.55. Doppler waveforms demonstrate monophasic flow at the posterior tibial, and dorsalis pedis arteries. Left leg: MALATHI= 0.65; TBI= 0.37. Doppler waveforms demonstrate monophasic flow at the posterior tibial, and dorsalis pedis arteries. Segmental pressures: Segmental pressures are normal on the right and demonstrate significant left sided femoropopliteal disease. Pulse volume recordings: PVRs at the high thigh, below knee, and ankle levels show normal waveforms on the right and dampened left sided below thigh waveforms. Conclusion: Right and left ankle-brachial indices are suggestive of normal overall right-sided arterial flow and reduced left-sided arterial flow at rest. Toe-brachial indices are suggestive of PAD. Segmental pressures show significant left sided femoropopliteal disease. Pulse volume recordings indicate reduced overall left-sided resting arterial flow. The study shows evidence of PAD with reduced overall left-sided arterial flow at rest due to significant left femoropopliteal disease. Electronically Signed On 02-03-2025 22:03:25 EDT by TRAVON CAMPBELL M.D. Dictated By: TRAVON CAMPBELL Signed By: 02/03/25220202/03/252202 DD/ 133 TD/TT: Automatic Washer Mechanic: Procedure Note Radiology, Radiologist, - 02/03/2025 [place] [address] Cardiology Report Signed Patient: TERRI LOWE R#: [id number] : 1950cct:[id number] Age/Sex: 74 / MADM Date: 02/03/25 Loc: CARD Attending Dr: Yaneli oHwell M.D. Ordering Physician: Yaneli Howell M.D. Date of Service: 02/03/25 Procedure(s): CA segmental UE or LE AIMEE Accession Number(s): [id number] cc: Tonya Dye NP; Yaneli Howell M.D. 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 Interpretive Statements Summary of the findings: Right leg: MALATHI= 1.0; TBI= 0.55. Doppler waveforms demonstrate monophasicflow at the posterior tibial, and dorsalis pedis arteries. Left leg: MALATHI= 0.65; TBI= 0.37. Doppler waveforms demonstrate monophasicflow at the posterior tibial, and dorsalis pedis arteries. Segmental pressures: Segmental pressures are normal on the right and demonstrate significant left sided femoropopliteal disease. Pulse volume recordings: PVRs at the high thigh, below knee, and anklelevels show normal waveforms on the right and dampened left sided below thigh waveforms. Conclusion: Right and left ankle-brachial indices are suggestive of normal overall right-sided arterial flow and reduced left-sided arterial flow at rest. Toe-brachial indices are suggestive of PAD. Segmental pressures show significant left sided femoropopliteal disease. Pulse volume recordings indicate reduced overall left-sided resting arterial flow. The study shows evidence of PAD with reduced overall left-sided arterialflow at rest due to significant left femoropopliteal disease. Electronically Signed On 02-03-2025 22:03:25 EDT by TRAVON CAMPBELL M.D. Dictated By: TRAVON CAMPBELL Signed By:02/03/25220202/03/252202 DD/ 1339 TD/TT: Automatic Washer Mechanic: Generic External Data Provider IMG XR PROCEDURES Final Result from Last 3 Months Insurance MEDICARE GENERIC OTHER Care Teams Ping Pong Table Assembler Relationship Specialty Start Date End Date Mumtaz Jensen MD [address] [place] [address] PCP - General Family Medicine 11/28/23 Tonya Dye NP [address] [place] [address] PCP - ACO Reach 11/22/24 Tonya Dye NP Referring Physician Nurse Practitioner 03/09/23
--- OUTSIDE RECORDS SUMMARY | 2025-04-02 12:44 | XMS_ITS | Encounter Summary ---
Author Organization [facility] Address [address] [place] [address] Care Team Providers Care Punch Press Setter Name Role Phone Tonya Dye HORSE WRANGLER Unavailable [phone] Mumtaz Jensen MD Primary Care Provider [phone] Tonya Dye HORSE WRANGLER Unavailable [phone] Encounter Details Date Type Department Care Team (Late st Contact Info) Description 01/23/2024 Clinisync Result Encounter [facility] External Department Unsolicited Provider, Generic External Data Social History Tobacco Use Types Packs/Day Years [...] 1:00 PM EDT Office Visit [facility] [address] [place] [address] Tonya Dye, HORSE WRANGLER [address] [place] [address] 04/02/2026 11:00 AM EDT Office Visit [facility] [address] [place] [address] Tonya Dye NP [address] [place] [address] documented as of this encounter Procedures Procedure Name Priority Date/Time Associated Diagnosis Comments SEGMENTAL BLOOD PRESSURE 01/23/2024 2:35 PM EDT documented in this encounter Results * SEGMENTAL BLOOD PRESSURE (01/23/2024 2:35 PM EDT) Anatomical Region Laterality Modality Radiographic Mary ging 01/23/2024 2:35 PM EDT Narrative 01/23/2024 11:21 PM EDT [address] [address] Cardiology Report Signed Patient: TERRI LOWE MR#: [id number] : 1950 Acct:[id number] Age/Sex: 73 / M ADM Date: 01/23/24 Loc: CARD Attending Dr: OMID RICKS Ordering Physician: OMID RICKS Date of Service: 01/23/24 Procedure(s): CA segmental UE or LE AIMEE Accession Number(s): [id number] cc: OMID RICKS ; Tonya Dye NP [facility] Test Date: 2024-01-23 Pat Name: TERRI LOWE Department: Room: - Gender: Male Slag Skimmer: : 1950 Requested By: OMID RICKS Order Number: [id number] Reading MD: HARRISON GODDARD Interpretive Statements Monophasic doppler waveforms. PVR waveforms with delayed upstroke, blunted amplitude and loss of dicrotic notch. Right: - no significant pressure gradient between cuffs - abnormal MALATHI Left: - significant pressure gradient between the brachial and thigh cuff - significant pressure gradient between the calf and DP cuff - abnormal MALATHI and TBI Impression: - significant arterial disease in the right lower extremity with mild hemodynamic impairment of the right lower extremity at rest (MALATHI 0.95) - significant inflow (femoral artery or above) and outflow (tibioperoneal) arterial disease with moderate hemodynamic impairment of the left lower extremity at rest (MALATHI 0.62) Electronically Signed On 01-23-2024 23:20:38 EDT by HARRISON GODDARD Dictated By: Harrison Goddard D.O. Signed By: 01/23/24232001/23/242320 DD/ 1435 TD/TT: Web Art Director: Procedure Note Radiology, Radiologist, - 01/23/2024 [place] [address] Cardiology Report Signed Patient: TERRI LOWE JMR#: [id number] : 1950cct:[id number] Age/Sex: 73 / MADM Date: 01/23/24 Loc: CARD Attending Dr: OMID RICKS Ordering Physician: OMID RICKS Date of Service: 01/23/24 Procedure(s): CA segmental UE or LE AIMEE Accession Number(s): [id number] cc: OMID RICKS ; Tonya Dye NP [facility] Test Date: 2024-01-23 Pat Name: TERRI LOWE Department: Room: - Gender: Male Slag Skimmer: : 1950 Requested By: OMID RICKS Order Number: [id number] Reading MD: HARRISON GODDARD Interpretive Statements Monophasic doppler waveforms. PVR waveforms with delayed upstroke, blunted amplitude and loss ofdicrotic notch. Right: - no significant pressure gradient between cuffs - abnormal MALATHI Left: - significant pressure gradient between the brachial and thigh cuff - significant pressure gradient between the calf and DP cuff - abnormal MALATHI and TBI Impression: - significant arterial disease in the right lower extremity with mild hemodynamic impairment of the right lower extremity at rest (MALATHI 0.95) - significant inflow (femoral artery or above) and outflow (tibioperoneal) arterial disease with moderate hemodynamic impairment of the left lower extremity at rest (MALATHI 0.62) Electronically Signed On 01-23-2024 23:20:38 EDT by HARRISON GODDARD Dictated By: Harrison Goddard D.O. Signed By:01/23/24232001/23/242320 DD/ 1435 TD/TT: Web Art Director: us Generic External Data Provider IMG XR PROCEDURES Final Result documented in this encounter Visit Diagnoses Not on filedocumented in this encounter Care Teams Punch Press Setter Relationship Specialty Start Date End Date Mumtaz Jensen MD [address] [place] [address] PCP - General Family Medicine 11/28/23 Tonya Dye NP [address] [place] [address] PCP - ACO Reach 11/22/24 Tonya Dye NP Referring Physician Nurse Practitioner 03/09/23 documented as of this encounter
--- OUTSIDE RECORDS SUMMARY | 2025-04-02 12:44 | XMS_ITS | Encounter Summary ---
Author Organization [email or web address] Address [id number] [address] [place] [address] Care Team Providers Care Residential Property Consultant Name Role Phone Tonya Dye BURIAL VAULT SETTER-COUNTER MAKER Primary Care Provider Encounter Details Date Type Department Care Team (Late Contact Info) Description 02/20/2025 Orders Only [facility] [address] [place] [address] Dafne Jimenez CMA Claudication; PAD (peripheral artery disease); History of arterial bypass of lower extremity Social History Tobacco Use Types Packs/Day Years [...] Info) Description 04/14/2025 10:30 AM EDT Appointment [facility] - Cardiovascular [address] [place] [place] [address] Muna Persaud PA-C [address] [place] [address] 07/15/2025 1:15 PM EDT Office Visit [facility] Cardiology [address] [facility] [address] [place] [address] Tamara Rebolledo MD [address] [place] [address] 03/04/2026 2:15 PM EDT Appointment [facility] - Vascular [address] [place] [address] Robyn Frazier, BURIAL VAULT SETTER-COUNTER MAKER [address] [place] [address] 03/04/2026 3:00 PM EDT Appointment [facility] Vascular [address] [place] [address] Robyn Frazier, BURIAL VAULT SETTER-COUNTER MAKER [address] [place] [address] 04/02/2026 11:50 AM EDT Office Visit [facility] [place] [address] Yaneli Howell MD [address] [facility] [address] [place] [address] documented as of this encounter Procedures Procedure Name Priority Date/Time Associated Diagnosis Comments VASC CAROTID DUPLEX BILATERAL Routine 08/22/2024 3:08 PM EST documented in this encounter Results * Vas carotid duplex bilateral (08/22/2024 3:08 PM EST) Anatomical Region Laterality Modality Vascular Bilateral Ultrasound us Not In System Ref Prov CV VASCULAR ORDERABLES Fi nal Result documented in this encounter Visit Diagnoses Diagnosis Claudication Unspecified peripheral vascular disease PAD (peripheral artery disease) Unspecified peripheral vascular disease History of arterial bypass of lower extremity documented in this encounter Additional Health Concerns Assessment Noted Time A Body Mass Index follow-up plan has been documented for the patient 11/14/2019 2:01 PM EST documented as of this encounter Care Teams Residential Property Consultant Relationship Specialty Start Date End Date Tonya Dye, RAFITA-COUNTER MAKER PCP - General Nurse Practitioner 09/07/21 documented as of this encounter
--- OUTSIDE RECORDS SUMMARY | 2025-04-02 12:44 | XMS_ITS | Encounter Summary ---
Author Organization [facility] Address [id number] [address] [place] [address] Care Team Providers Care Kier Pleater Name Role Phone Tonya Dye NEWS DIRECTOR-STONEWORK SUPERVISOR Primary Care Provider Encounter Details Date Type Department Care Team (Late st Contact Info) Description 01/24/2024 Orders Only [facility] [address] [facility] [place] [address] Dafne Jimenez CMA PAD (peripheral artery disease) ([facility]); Obesity (BMI 30.0-34.9); Claudication ([facility]) Social History Tobacco Use Types Packs/Day Years [...] got money to buy more. Never True 12/27/2022 Within the past 12 months th e food we bought just didn't last and we didn't have money to get more. Never True 12/27/2022 Purpose - Life Answer Date Recorded Purpose [...] Description 04/14/2025 10:30 AM EDT Appointment [facility] - Cardiovascular [address] [place] [address] Muna Persaud PA-C [address] [place] [address] 07/15/2025 1:15 PM EDT Office Visit [facility] Cardiology [address] [facility] 1 [place] [address] Tamara Rebolledo MD [address] [place] [address] 03/04/2026 2:15 PM EDT Appointment [facility] Vascular [address] [facility] [place] [address] Robyn Frazier, NEWS DIRECTOR-STONEWORK SUPERVISOR [address] [place] [address] 03/04/2026 3:00 PM EDT Appointment [facility] Vascular [address] [place] [address] Robyn Frazier, NEWS DIRECTOR-STONEWORK SUPERVISOR [address] [place] [address] 04/02/2026 11:50 AM EDT Office Visit [facility] [address] Yaneli Howell MD [address] [facility] [address] [place] [address] documented as of this encounter Visit Diagnoses Diagnosis PAD (peripheral artery disease) Unspecified peripheral vascular disease Obesity (BMI 30.0-34.9) Claudication Unspecified peripheral vascular disease documented in this encounter Additional Health Concerns Assessment Noted Time A Body Mass Index follow-up plan has been documented for the patient 11/14/2019 2:01 PM EST documented as of this encounter Care Teams Kier Pleater Relationship Specialty Start Date End Date Tonya Dye, RAFITA-STONEWORK SUPERVISOR PCP - General Nurse Practitioner 09/07/21 documented as of this encounter
--- OUTSIDE RECORDS SUMMARY | 2025-04-02 12:44 | XMS_ITS | Encounter Summary ---
Author Organization [facility] Address [address] [place] [address] Care Team Providers Care Academic Hospitalist Name Role Phone Tonya Dye CLINICAL LABORATORY AIDES TEACHER Unavailable [phone] Mumtaz Jensen MD Primary Care Provider Tonya Dye CLINICAL LABORATORY AIDES TEACHER Unavailable [phone] Encounter Details Date Type Department Care Team (Late st Contact Info) Description 12/20/2023 External Result Encounter [facility] External Department Unsolicited Ranulfo Zavala, DO [address] [address] Social History Tobacco Use Types Packs/Day Years [...] Visit [facility] [address] [place] [address] Tonya Dye NP [address] [place] [address] 04/02/2026 11:00 AM EDT Office Visit [facility] [address] [place] [address] Tonya Dye, SHIVAM [address] [place] [address] documented as of this encounter Procedures Procedure Name Priority Date/Time Associated Diagnosis Comments ECG 12-LEAD 12/20/2023 9:29 AM EST documented in this encounter Results * ECG 12 lead (12/20/2023 9:29 AM EST) 12/20/2023 9:29 AM EST Narrative [facility] - 12/20/2023 7:44 PM EST [facility] Main [address] [address] Electrocardiograph Report Signed Patient: Darin Thacker MR#: [id number] : 1950 Acct:[id number] Age/Sex: 73 / M ADM Date: 12/20/23 Loc: Room: Type: [facility] Attending Dr: Ranulfo Zavala DO Ordering Provider: Ranulfo Zavala DO Date of Service: 12/20/2304/08/905 ECG/ECG 12 [...] When compared with ECG of 14-MAR-2021 10:14, W[place] interval has increased Vent. rate has decreased BY 43 BPM Nonspecific T wave abnormality now evident in Lateral leads Confirmed by Laurent Livingston ([id number]) on 12/20/2023 7:43:38 PM Referred By: YUDI Electronically Signed By:Laurent Livingston Transcribed By: MUS Signed By Laurent Livingston MD 12/20/231942 Procedure Note Jean-Paul Livingston MD - 12/21/2023 [facility] Main [address] [address] Electrocardiograph Report Signed Patient: Darin Thacker JMR#: [id number] : 1950cct:[id number] Age/Sex: 73 / MADM Date: 12/20/23 Loc: Room:Type: [facility] Attending Dr: Ranulfo Zavala DO Ordering Provider: Ranulfo Zavala DO Date of Service: 12/20/2304/08/905 ECG/ECG 12 [...] When compared with ECG of 14-MAR-2021 10:14, W[place] interval has increased Vent. rate has decreased BY 43 BPM Nonspecific T wave abnormality now evident in Lateral leads Confirmed by Laurent Livingston ([id number]) on 12/20/2023 7:43:38 PM Referred By: YUDI Electronically Signed By:Laurent Livingston Transcribed By: MUS Signed By Laurent Livingston MD 12/20/231942 us Ranulfo Zavala DO ECG ORDERABLES Final Result [address] [address], documented in this encounter Visit Diagnoses Not on filedocumented in this encounter Care Teams Academic Hospitalist Relationship Specialty Start Date End Date Mumtaz Jensen MD [address] [place] [address] PCP - General Family Medicine 11/28/23 Tonya Dye NP [address] [place] [address] PCP - ACO Reach 11/22/24 Tonya Dye NP Referring Physician Nurse Practitioner 03/09/23 documented as of this encounter
--- OUTSIDE RECORDS SUMMARY | 2025-04-02 12:45 | XMS_ITS | Patient Health Record ---
Author Organization [facility] Address [address] [place], [place] [address] Care Team Providers Care Sanitary Landfill Operator Name Role Phone Loren Luque Unavailable [phone] Allergies Allergen (clinical drug ingredient) Drug/Non Drug Allergy documented on EMR Reaction Allergy Type Onset Date Status Penicillin Unknown Drug Allergy Active Reason For Referral No Information Medications Medication SIG (Take, Route, Frequency, Duration) Notes Start Date End Date Status Tamsulosin HCl 0.4 MG Oral for 90 Days Active Pantoprazole Sodium 40 MG Oral for 30 Days Active Metoprolol Tartrate 50 MG Oral for 90 Days Active amLODIPine Besylate 5 MG Oral for 90 Days Active glipiZIDE 10 MG Oral for 90 Days Active metFORMIN HCl 1000 MG Oral for 90 Days Active Gabapentin 600 MG Oral for 90 Days Active Simvastatin 20 MG Oral for 90 Days Active Pioglitazone HCl 30 MG Oral for 90 Days Active Social History Tobacco Use: Social History Observation Description Date Details (start date - stop date) Current Smoker NA - NA Sex Assigned At : Social History Observation Description Sex Assigned At Male Tobacco Control (Standard) Question Answer Notes Tobacco use: Current smoker Problems Problem Type SNOMED Code ICD Code Onset Dates Problem Status W/U Status Risk Notes Problem Tobacco user (790114319) Cigarette nicotine dependence without complication (F17.210) Active confirmed Problem Childhood obesity (045848462) BMI (body mass index) pediatric, > 99% for age, obese child, tertiary care intervention (E66.9) Active confirmed Vital Signs Heart Rate 73 /min 08/01/2024 Blood pressure diastolic 80 mm Hg 08/01/2024 Height-cm 170.18 cm 08/01/2024 Weight-kg 81.65 kg 08/01/2024 Height 5'7 in 08/01/2024 Blood pressure systolic 126 mm Hg 08/01/2024 Weight 180 lbs 08/01/2024 BMI 28.19 kg/m2 08/01/2024 Encounters Encounter Location Date Provider Diagnosis [facility] Main [address] [place], [place] [id number] 07/31/2024 Loren Luque BMI (body mass ind ex) pediatric, > 99% for age, obese child, tertiary care intervention E66.9 ; Encounter for screening for dental disorders Z13.84 ; Dietary counseling Z71.3 ; Exercise counseling Z71.82 ; Cigarette nicotine dependence without complication F17.210 ; Partial loss of teeth, unspecified cause, class I K08.401 ; Encounter for dental examination and cleaning with abnormal findings Z01.21 ; Necrosis of pulp K04.1 and Dental caries into dentine K02.62 [facility] Main [address] [place], [place] [phone] 08/01/2024 Lorenronnie Pérezford Encounter for dent al examination and cleaning with abnormal findings Z01.21 Assessments Encounter Date Diagnosis (ICD Code) Assessment Notes Treatment Notes Treatment Clinical Notes Section Notes 07/31/2024 BMI (body mass index) pediatric, > 99% for age, obese child, tertiary care intervention (ICD-10 - E66.9) 08/01/2024 Encounter for dental examination and cleaning with abnormal findings (ICD-10 - Z01.21) 07/31/2024 Encounter for screening for dental disorders (ICD-10 - Z13.84) 07/31/2024 Dietary counseling (ICD-10 - Z71.3) 07/31/2024 Exercise counseling (ICD-10 - Z71.82) 07/31/2024 Cigarette nicotine dependence without complication (ICD-10 - F17.210) 07/31/2024 Partial loss of teeth, unspecified cause, class I (ICD-10 - K08.401) 07/31/2024 Encounter for dental examination and cleaning with abnormal findings (ICD-10 - Z01.21) 07/31/2024 Necrosis of pulp (ICD-10 - K04.1) 07/31/2024 Dental caries into dentine (ICD-10 - K02.62) Plan Of Treatment No Information Insurance Providers Payer Name Payer Address Payer Phone Subscriber Number Group Number Insured Name Patient Relationship to Insured Coverage Start Date Coverage End Date [employer]etlife [address] [place], [place] [id number] Darin Thacker Self - patient is the insured 1
--- OUTSIDE RECORDS SUMMARY | 2025-04-02 12:45 | XMS_ITS | Encounter Summary ---
Author Organization [facility] Address [address] [place] [address] Care Team Providers Care Sample Tailor Name Role Phone Tonya Dye NP Unavailable [phone] Mumtaz Jensen MD Primary Care Provider Tonya Dye NP Unavailable [phone] Encounter Details Date Type Department Care Team (Late st Contact Info) Description 07/08/2024 Orders Only [facility] [address] [place] [address] Tonya Dye NP [address] [place] [address] Social History Tobacco Use Types Packs/Day Years Used Date Smoking Tobacco: Every Day Cigarettes Smokeless Tobacco: Never Alcohol Use Standard Drinks/Week Comments Never 0 (1 standard drink = 0.6 oz pur e alcohol) PHQ-2 Answer Date Recorded Patient Health Questionnaire-2 Score 0 04/04/2024 Sex and Gender Information Value Date Recorded Sex Assigned at Not on file Legal Sex Male 10:09 PM EDT Gender Identity Not on file Sexual Orientation Not on file documented as of this encounter Plan of Treatment Upcoming Encounters Date Type Department Care Team (Late st Contact Info) Description 06/30/2025 1:00 PM EDT Office Visit [facility] [address] [place] [address] Tonya Dye NP [address] [place] [address] 04/02/2026 11:00 AM EDT Office Visit [facility] [address] [place] [address] Tonya Dye NP [address] [place] [address] documented as of this encounter Procedures Procedure Name Priority Date/Time Associated Diagnosis Comments SCANNED LABS Routine 07/08/2024 1:55 PM EDT documented in this encounter Results * SCANNED LABS (07/08/2024 1:55 PM EDT) Tonya Dye CLINICAL LABORATORY SCIENCE PROFESSOR LAB CHG PERFORMABLES Final Resu lt documented in this encounter Visit Diagnoses Not on filedocumented in this encounter Additional Health Concerns Assessment Noted Time PHQ-9 Depression Total Score: 3 02/27/20 24 11:39 AM EDT documented as of this encounter Care Teams Sample Tailor Relationship Specialty Start Date End Date Mumtaz Jensen MD [address] [place] [address] PCP - General Family Medicine 11/28/23 Tonya Dye NP [address] [place] [address] PCP - ACO Reach 11/22/24 Tonya Dye NP Referring Physician Nurse Practitioner 03/09/23 documented as of this encounter
--- OUTSIDE RECORDS SUMMARY | 2025-04-02 12:45 | XMS_ITS | Encounter Summary ---
Author Organization [facility] Address [id number] [address] [place] [address] Care Team Providers Care Piano Case Maker Name Role Phone NeptaliTonya mercado Gail YARD WAREHOUSE WORKER-BARNWORKER GROOM Primary Care Provider Encounter Details Date Type Department Care Team (Late st Contact Info) Description 10/26/2021 Orders Only [facility] [address] [place] [address] External, Scanning Provider Social History Tobacco Use [...] have Coronavirus / COVID-19? No / Unsure 10/26/2021 9:09 AM EST documented as of this encounter Plan of Treatment Upcoming Encounters Date Type Department Care Team (Late st Contact Info) Description 04/14/2025 10:30 AM EDT Appointment [facility] - Cardiovascular [address] [place] [address] Muna Persaud PA-C [address] [place] [address] 07/15/2025 1:15 PM EDT Office Visit [facility] [address] [place] [address] [place] [address] Tamara Rebolledo MD [address] [place] [address] 03/04/2026 2:15 PM EDT Appointment [facility] Vascular [address] [place] [address] Robyn Frazier, YARD WAREHOUSE WORKER-BARNWORKER GROOM [address] [employer] [facility], [address] [place] [address] 03/04/2026 3:00 PM EDT Appointment [facility] Vascular [address] [place] [address] Robyn Frazier, YARD WAREHOUSE WORKER-BARNWORKER GROOM [address] [employer] [place] [address] 04/02/2026 11:50 AM EDT Office Visit [facility] [place] [address] Yaneli Howell MD [address] [facility] [address] [place] [address] documented as of this encounter Procedures Procedure Name Priority Date/Time Associated Diagnosis Comments ECG 12-LEAD Routine 10/26/2021 ECG 12-LEAD Routine 05/26/2021 documented in this encounter Results * ECG 12 lead (10/26/2021) us Scanning Provider External ECG ORDERABLES Final Result MANUALLY TRANSCRIBED RESULTS * ECG 12 lead (05/26/2021) us Scanning Provider External ECG ORDERABLES Final Result MANUALLY TRANSCRIBED RESULTS documented in this encounter Visit Diagnoses Not on filedocumented in this encounter Additional Health Concerns Infection Onset Date Last Indicated Resolved Time COVID-19 Rule-Out 11/07/2021 11/07/2021 11/08/2021 2:25 AM EST Assessment Noted Time A Body Mass Index follow-up plan has been documented for the patient 11/14/2019 2:01 PM EST documented as of this encounter Care Teams Piano Case Maker Relationship Specialty Start Date End Date Tonya Dye, RAFITA-BARNWORKER GROOM PCP - General Nurse Practitioner 09/07/21 documented as of this encounter
--- OUTSIDE RECORDS SUMMARY | 2025-04-02 12:45 | XMS_ITS | Encounter Summary ---
Author Organization [facility] Address [address] [place] [address] Care Team Providers Care Solid Waste Division Supervisor Name Role Phone Tonya Dye NP Unavailable [phone] Mumtaz Jensen MD Primary Care Provider Tonya Dye FIELD SERVICE COORDINATOR Unavailable [phone] Reason for Visit * Reason Comments Med Refill Encounter Details Date Type Department Care Team (Late Contact Info) Description 05/22/2024 Refill [facility] [address] [place] [address] Tonya Dye, FIELD SERVICE COORDINATOR [address] [place] [address] Social History Tobacco Use Types Packs/Day Years [...] 06/30/2025 1:00 PM EDT Office Visit [facility] [address] [place] [address] Tonya Dye, SHIVAM [address] [place] [address] 04/02/2026 11:00 AM EDT Office Visit [facility] [address] [place] [address] Tonya Dye, SHIVAM [address] [place] [address] documented as of this encounter Visit Diagnoses Not on filedocumented in this encounter Additional Health Concerns Assessment Noted Time PHQ-9 Depression Total Score: 3 02/27/20 24 11:39 AM EDT documented as of this encounter Care Teams Solid Waste Division Supervisor Relationship Specialty Start Date End Date Mumtaz Jensen MD [address] [place] [address] PCP - General Family Medicine 11/28/23 Tonya Dye NP [address] [place] [address] PCP - ACO Reach 11/22/24 Tonya Dye NP Referring Physician Nurse Practitioner 03/09/23 documented as of this encounter
--- OUTSIDE RECORDS SUMMARY | 2025-04-02 12:45 | XMS_ITS | Encounter Summary ---
Author Organization [facility] Address [address] [facility] [place] [address] Care Team Providers Care Book Cutter Name Role Phone Tnoya Dye NP Unavailable [phone] Mumtaz Jensen MD Primary Care Provider [phone] Tonya Dye NP Unavailable [phone] Encounter Details Date Type Department Care Team (Late st Contact Info) Description 03/19/2024 Orders Only [facility] [address] [place] [address] Tonya Dye NP [address] [place] [address] Social History Tobacco Use Types Packs/Day Years Used Date Smoking Tobacco: Every Day Cigarettes Smokeless Tobacco: Never Alcohol Use Standard Drinks/Week Comments Never 0 (1 standard drink = 0.6 oz pur e alcohol) PHQ-2 Answer Date Recorded Patient Health Questionnaire-2 Score 0 03/14/2024 Sex and Gender Information Value Date Recorded Sex Assigned at Not on file Legal Sex Male 10:09 PM EDT Gender Identity Not on file Sexual Orientation Not on file documented as of this encounter Plan of Treatment Upcoming Encounters Date Type Department Care Team (Late st Contact Info) Description 06/30/2025 1:00 PM EDT Office Visit [facility] [address] [place] [address] Tonya Dye NP [address] [place] [address] 04/02/2026 11:00 AM EDT Office Visit [facility] [address] [place] [address] Tonya Dye NP [address] [place] [address] documented as of this encounter Procedures Procedure Name Priority Date/Time Associated Diagnosis Comments ECHO TRANSTHORACIC W/ DOPPLER Routine 03/19/2024 10:25 AM EDT documented in this encounter Results * ECHO TRANSTHORACIC W/ DOPPLER (03/19/2024 10:25 AM EDT) Anatomical Region Laterality Modality Radiographic Mary ging us Tonya Dye FRUIT LOADER MACHINE OPERATOR IMG XR PROCEDURES Final Result documented in this encounter Visit Diagnoses Not on filedocumented in this encounter Additional Health Concerns Assessment Noted Time PHQ-9 Depression Total Score: 3 02/27/20 24 11:39 AM EDT documented as of this encounter Care Teams Book Cutter Relationship Specialty Start Date End Date Mumtaz Jensen MD [address] [place] [address] PCP - General Family Medicine 11/28/23 Tonya Dye NP [address] [place] [address] PCP - ACO Reach 11/22/24 Tonya Dye NP Referring Physician Nurse Practitioner 03/09/23 documented as of this encounter
--- OUTSIDE RECORDS SUMMARY | 2025-04-02 12:45 | XMS_ITS | Encounter Summary ---
Author Organization [facility] Address [address] [place] [address] Care Team Providers Care Textile Converter Name Role Phone Mumtaz Jensen MD Primary Care Provider [phone] Tonya Dye NP Unavailable [phone] Mumtaz Jensen MD Primary Care Provider [phone] Tonya Dye NP Unavailable [phone] Encounter Details Date Type Department Care Team (Late st Contact Info) Description 03/26/2023 Abstract [facility] [address] [facility] [address] [place] [address] Sky Serna, AGGIE 112 [facility] [address] [place] [address] Social History Tobacco Use Types Packs/Day Years Used Date Smoking Tobacco: Every Day Cigarettes Smokeless Tobacco: Never Tobacco Cessation:Ready to Q uit: Not Asked Comments:Current smoker, frequency unknown. Smokes 11-20 cigarettes. Alcohol Use Standard [...] 06/30/2025 1:00 PM EDT [facility] [address] [place] [address] Tonya Dye, SHIVAM [address] [place] [address] 04/02/2026 11:00 AM EDT Office Visit [facility] [address] [place] [address] Tonya Dye, SHIVAM [address] [place] [address] documented as of this encounter Visit Diagnoses Not on filedocumented in this encounter Care Teams Textile Converter Relationship Specialty Start Date End Date Mumtaz Jensen MD PCP - General Family Medicine 10/16/22 11/27/23 Mumtaz Jensen MD [address] [place] [address] PCP - General Family Medicine 11/28/23 Tonya Dye NP [address] [place] [address] PCP - ACO Reach 11/22/24 Tonya Dye NP Referring Physician Nurse Practitioner 03/09/23 documented as of this encounter
--- OUTSIDE RECORDS SUMMARY | 2025-04-02 12:45 | XMS_ITS | Encounter Summary ---
Author Organization [facility] Address [address] [place] [address] Care Team Providers Care Cripple Worker Name Role Phone Tonya Dye IT HELP DESK ANALYST Unavailable [phone] Mumtaz Jensen MD Primary Care Provider [phone] Tonya Dye NP Unavailable [phone] Encounter Details Date Type Department Care Team (Late st Contact Info) Description 08/22/2024 Clinisync Result Encounter [facility] External Department Unsolicited Tonya Dye NP [address] [place] [address] Social History Tobacco Use Types Packs/Day [...] 06/30/2025 1:00 PM EDT [facility] [address] [place] [address] Tonya Dye NP [address] [place] [address] 04/02/2026 11:00 AM EDT Office Visit [facility] [address] [place] [address] Tonya Dye NP [address] [place] [address] documented as of this encounter Procedures Procedure Name Priority Date/Time Associated Diagnosis Comments VASC US CAROTID ARTERY DUPLEX BILATERAL 08/22/2024 5:23 PM EST documented in this encounter Results * Vascular US carotid artery duplex bilateral (08/22/2024 5:23 PM EST) Anatomical Region Laterality Modality Neck Ultrasound 08/22/2024 5:23 PM EST Narrative 08/22/2024 5:26 [place] [address] Ultrasound Report Signed Patient: TERRI LOWE MR#: [id number] : 1950 Acct:[id number] Age/Sex: 74 / M ADM Date: 08/22/24 Loc: US Attending Dr: Tonya Dye NP Ordering Physician: Tonya Dye NP Date of Service: 08/22/24 Procedure(s): US carotid duplex BI Accession Number(s): [id number] cc: Tonya Dye NP [address] [address] Patient Name: TERRI LOWE MRN: [id number] date: 1950 Sex: M Assigned Patient Location: US Current Patient Location: US Accession/Order Number: [id number] Exam Date: 08/22/2024 14:05 Report Date: 08/22/2024 17:23 At the request of: TONYA DYE Procedure: US carotid duplex BI DUPLEX ULTRASOUND EXAMINATION OF THE CAROTID ARTERIES. COMPARISON: None. HISTORY / INDICATIONS: Carotid bruit. TECHNIQUE: Bilateral common carotid arteries, extracranial internal and external carotid arteries are evaluated with shaw-scale imaging, color Doppler, and spectral analysis according to a standard protocol. ICA-CCA ratios are calculated with fulfillment representative peak-systolic velocities and recorded. Vertebral arteries are evaluated in one segment to evaluate for patency and character of flow. Comparison with previous evaluation is performed when available. Unless otherwise specified, all velocities are measured in cm/sec. Carotid stenosis is reported according to validated velocity parameters, similar to NASCET criteria. FINDINGS: Right Carotid: Plaque was noted. Velocity measurements as follows: Internal Carotid Artery 58/13 and 62/18. ICA to CCA ratio: 0.8. Left Carotid: Plaque was noted. Velocity measurements as follows: Internal Carotid Artery 35/6 and 47/8. ICA to CCA ratio: 1.0. Antegrade flow was seen in both vertebral arteries. CONCLUSION: 1. Less than 50% stenosis of the right ICA. 2. Less than 50% stenosis of the left ICA. 3. Vertebral arteries are patent and demonstrate antegrade flow. Electronically authenticated by: Gail GARC[place] Date: 08/22/2024 17:23 Dictated By: Gail Garcia M.D. Signed By: 08/22/241725 DD/ 22 TD/TT: Lead Military Analyst: Procedure Note Radiology, Radiologist, MD - 08/22/[address] [address] Ultrasound Report Signed Patient: TERRI LOWE R#: [id number] : 1950cct:[id number] Age/Sex: 74 / MADM Date: 08/22/24 Loc: US Attending Dr: Tonya Dye NP Ordering Physician: Tonya Dye NP Date of Service: 08/22/24 Procedure(s): US carotid duplex BI Accession Number(s): [id number] cc: Tonya Dye NP The [address] [address] Patient Name: TERRI LOWE MRN: [id number] date: 1950 Sex: M Assigned Patient Location: US Current Patient Location: US Accession/Order Number: [id number] Exam Date: 08/22/2024 14:05 Report Date: 08/22/2024 17:23 At the request of: TONYA DYE Procedure: US carotid duplex BI DUPLEX ULTRASOUND EXAMINATION OF THE CAROTID ARTERIES. COMPARISON: None. HISTORY / INDICATIONS: Carotid bruit. TECHNIQUE: Bilateral common carotid arteries, extracranial internal and external carotid arteries are evaluated with shaw-scale imaging, color Doppler, and spectral analysis according to a standard protocol. ICA-CCA ratios are calculated with fulfillment representative peak-systolic velocities and recorded. Vertebral arteries are evaluated in one segment to evaluate for patency andcharacter of flow. Comparison with previous evaluation is performed when available.Unless otherwise specified, all velocities are measured in cm/sec. Carotidstenosis is reported according to validated velocity parameters, similar to NASCET criteria. FINDINGS: Right Carotid: Plaque was noted. Velocity measurements as follows:Internal Carotid Artery 58/13 and 62/18. ICA to CCA ratio: 0.8. Left Carotid: Plaque was noted. Velocity measurements as follows: Internal Carotid Artery 35/6 and 47/8. ICA to CCA ratio: 1.0. Antegrade flow was seen in both vertebral arteries. CONCLUSION: 1. Less than 50% stenosis of the right ICA. 2. Less than 50% stenosis of the left ICA. 3. Vertebral arteries are patent and demonstrate antegrade flow. Electronically authenticated by: Gail GARCIA Date: 08/22/2024 17:23 Dictated By: Gail Garcia M.D. Signed By:08/22/24 1726 DD/ 22 TD/TT: Lead Military Analyst: us Tonya Dye IT HELP DESK ANALYST IMG US PROCEDURES Final Result documented in this encounter Visit Diagnoses Not on filedocumented in this encounter Additional Health Concerns Assessment Noted Time PHQ-9 Depression Total Score: 3 02/27/20 24 11:39 AM EDT documented as of this encounter Care Teams Cripple Worker Relationship Specialty Start Date End Date Mumtaz Jensen MD [address] [place] [address] PCP - General Family Medicine 11/28/23 Tonya Dye NP [address] [place] [address] PCP - ACO Reach 11/22/24 Tonya Dye NP Referring Physician Nurse Practitioner 03/09/23 documented as of this encounter
--- OUTSIDE RECORDS SUMMARY | 2025-04-02 12:45 | XMS_ITS | Encounter Summary ---
Author Organization [facility] Address [address] [facility] [place] [address] Care Team Providers Care Curator Of Education Name Role Phone Tonya Dye NP Unavailable [phone] Mumtaz Jensen MD Primary Care Provider [phone] Tonya Dye NP Unavailable [phone] Encounter Details Date Type Department Care Team (Late st Contact Info) Description 07/04/2024 Orders Only [facility] [address] [place] [address] Tonya Dye NP [address] [place] [address] Social History Tobacco Use Types Packs/Day Years [...] 06/30/2025 1:00 PM EDT Office Visit [facility] [address] [place] [address] Tonya Dye NP [address] [place] [address] 04/02/2026 11:00 AM EDT Office Visit [facility] [address] [place] [address] Tonya Dye NP [address] [place] [address] documented as of this encounter Procedures Procedure Name Priority Date/Time Associated Diagnosis Comments CT ABDOMEN & PELVIS W Routine 07/03/2024 10:17 AM EDT documented in this encounter Results * CT ABDOMEN & PELVIS W (07/03/2024 10:17 AM EDT) Anatomical Region Laterality Modality Radiographic Mary ging Tonya Dye NP IMG XR PROCEDURES Final Result documented in this encounter Visit Diagnoses Not on filedocumented in this encounter Additional Health Concerns Assessment Noted Time PHQ-9 Depression Total Score: 3 02/27/20 24 11:39 AM EDT documented as of this encounter Care Teams Curator Of Education Relationship Specialty Start Date End Date Mumtaz Jensen MD [address] [place] [address] PCP - General Family Medicine 11/28/23 Tonya Dye NP [address] [place] [address] PCP - ACO Reach 11/22/24 Tonya Dye NP Referring Physician Nurse Practitioner 03/09/23 documented as of this encounter
--- OUTSIDE RECORDS SUMMARY | 2025-04-02 12:45 | XMS_ITS | Encounter Summary ---
Author Organization [facility] Address [address] [place] [address] Care Team Providers Care Lieutenant Ballistics Name Role Phone Mumtaz Jensen MD Primary Care Provider [phone] Tonya Dye NP Unavailable [phone] Mumtaz Jensen MD Primary Care Provider [phone] Tonya Dye NP Unavailable [phone] Encounter Details Date Type Department Care Team (Late st Contact Info) Description 05/22/2023 Abstract [facility] 112 [facility] [address] [place] [address] Sky Serna, AGGIE 112 [facility] [address] [place] [address] Social History Tobacco Use Types Packs/Day Years [...] Visit [facility] [address] [place] [address] Tonya Dye, SHIVAM [address] [place] [address] 04/02/2026 11:00 AM EDT Office Visit [facility] [address] [place] [address] Tonya Dye NP [address] [place] [address] documented as of this encounter Visit Diagnoses Not on filedocumented in this encounter Care Teams Lieutenant Ballistics Relationship Specialty Start Date End Date Mumtaz Jensen MD PCP - General Family Medicine 10/16/22 11/27/23 Mumtaz Jensen MD [address] [place] [address] PCP - General Family Medicine 11/28/23 Tonya Dye NP [address] [place] [address] PCP - ACO Reach 11/22/24 Tonya Dye NP Referring Physician Nurse Practitioner 03/09/23 documented as of this encounter
--- OUTSIDE RECORDS SUMMARY | 2025-04-02 12:45 | XMS_ITS | Encounter Summary ---
Author Organization [facility] Address [address] [place] [address] Care Team Providers Care Director Workforce Management Name Role Phone Tonya Dye NP Unavailable [phone] Mumtaz Jensen MD Primary Care Provider [phone] Tonya Dye NP Unavailable [phone] Encounter Details Date Type Department Care Team (Late st Contact Info) Description 11/21/2024 Orders Only [facility] [address] [place] [address] Tonya Dye NP [address] [place] [address] Social History Tobacco Use Types Packs/Day Years [...] 06/30/2025 1:00 PM EDT Office Visit [facility] [address] [place] [address] Tonya Dye NP [address] [place] [address] 04/02/2026 11:00 AM EDT Office Visit [facility] [address] [place] [address] Tonya Dye NP [address] [place] [address] documented as of this encounter Procedures Procedure Name Priority Date/Time Associated Diagnosis Comments DIABETES EYE EXAM Routine 11/21/2024 2:51 PM EST documented in this encounter Results * Diabetes Eye Exam (11/21/2024 2:51 PM EST) Tonya Dye NP HEALTH MAINTENANCE Final Result documented in this encounter Visit Diagnoses Not on filedocumented in this encounter Additional Health Concerns Assessment Noted Time PHQ-9 Depression Total Score: 3 02/27/20 24 11:39 AM EDT documented as of this encounter Care Teams Director Workforce Management Relationship Specialty Start Date End Date Mumtaz Jensen MD [address] [place] [address] PCP - General Family Medicine 11/28/23 Tonya Dye NP [address] [place] [address] PCP - ACO Reach 11/22/24 Tonya Dye NP Referring Physician Nurse Practitioner 03/09/23 documented as of this encounter
--- OUTSIDE RECORDS SUMMARY | 2025-04-02 12:45 | XMS_ITS | Encounter Summary ---
Author Organization [facility] Address [address] [place] [address] Care Team Providers Care Marinator Name Role Phone Tonya Dye PROFESSOR IN FAMILY STUDIES Unavailable [phone] Mumtaz Jensen MD Primary Care Provider [phone] Tonya Dye PROFESSOR IN FAMILY STUDIES Unavailable [phone] Encounter Details Date Type Department Care Team (Late st Contact Info) Description 03/12/2024 Orders Only [facility] [address] [place] [address] Social History Tobacco Use Types Packs/Day Years [...] pleasure in doing things Not at all 03/14/2024 11:26 AM EDT ROBYN CHOWDARY Feeling down, depressed, or hopeless Not at all 03/14/2024 11:26 AM EDT ROBYN CHOWDARY Patient Health Questionnaire -2 Score 0 03/14/2024 11:26 AM EDT ROBYN CHOWDARY documented as of this encounter Plan of Treatment Upcoming Encounters Date Type Department Care Team (Late st Contact Info) Description 06/30/2025 1:00 PM EDT Office Visit [facility] [address] [place] [address] Tonya Dye NP [address] [place] [address] 04/02/2026 11:00 AM EDT Office Visit [facility] [address] [place] [address] Tonya Dye NP [address] [place] [address] documented as of this encounter Procedures Procedure Name Priority Date/Time Associated Diagnosis Comments ECG 12-LEAD Routine 03/12/2024 1:38 PM EDT XR CHEST 2 VIEWS Routine 03/10/2024 8:03 AM EDT documented in this encounter Results * ECG 12 lead (03/12/2024 1:38 PM EDT) Tonya Dye NP ECG ORDERABLES Final Result * XR chest 2 views (03/10/2024 8:03 AM EDT) Anatomical Region Laterality Modality Chest Radiographic Mary ging [facility] IMG XR PROCEDURES Final Result documented in this encounter Visit Diagnoses Not on filedocumented in this encounter Additional Health Concerns Assessment Noted Time PHQ-9 Depression Total Score: 3 02/27/20 24 11:39 AM EDT documented as of this encounter Care Teams Marinator Relationship Specialty Start Date End Date Mumtaz Jensen MD [address] [place] [address] PCP - General Family Medicine 11/28/23 Tonya Dye NP [address] [place] [address] PCP - ACO Reach 11/22/24 Tonya Dye NP Referring Physician Nurse Practitioner 03/09/23 documented as of this encounter
--- OUTSIDE RECORDS SUMMARY | 2025-04-02 12:45 | XMS_ITS | Encounter Summary ---
Author Organization [facility] Address [address] [place] [address] Care Team Providers Care Home Management Supervisor Name Role Phone Tonya Dye TITLE I MATH TUTOR Unavailable [phone] Mumtaz Jensen MD Primary Care Provider Tonya Dye TITLE I MATH TUTOR Unavailable [phone] Encounter Details Date Type Department Care Team (Late st Contact Info) Description 02/05/2024 Clinisync Result Encounter [facility] External Department Unsolicited Citlaly Aceves MD [address] [place] [address] Social History Tobacco Use Types Packs/Day Years [...] 06/30/2025 1:00 PM EDT Office Visit [facility] [address] [place] [address] Tonya Dye NP [address] [place] [address] 04/02/2026 11:00 AM EDT Office Visit [facility] [address] [place] [address] Tonya Dye NP [address] [place] [address] documented as of this encounter Procedures Procedure Name Priority Date/Time Associated Diagnosis Comments MRI HEAD/BRAIN WO/W CONTR 02/05/2024 4:48 PM EDT documented in this encounter Results * MRI HEAD/BRAIN WO/W CONTR (02/05/2024 4:48 PM EDT) Anatomical Region Laterality Modality Radiographic Mary ging 02/05/2024 4:48 PM EDT Narrative 02/05/2024 4:51 PM [place] [address] Magnetic Resonance Report Signed Patient: TERRI LOWE MR#: [id number] : 1950 Acct:[id number] Age/Sex: 73 / M ADM Date: 02/05/24 Loc: LAB Attending Dr: Citlaly Aceves M.D. Ordering Physician: Citlaly Aceves M.D. Date of Service: 02/05/24 Procedure(s): MR head/brain wo/w con Accession Number(s): [id number] cc: Tonya Dye TITLE I MATH TUTOR; Citlaly Aceves M.D. The [address] [address] Patient Name: TERRI LOWE MRN: [id number] date: 1950 Sex: M Assigned Patient Location: LAB Current Patient Location: LAB Accession/Order Number: [id number] Exam Date: 02/05/2024 15:00 Report Date: 02/05/2024 16:48 At the request of: CITLALY ACEVES Procedure: MR head/brain wo/w con MR head/brain wo/w con, 02/05/2024 3:00 PM EDT INDICATION: Dysomia R43.9 COMPARISON: Prior CT of the sinuses dated 12/05/2023 TECHNIQUE: Multiplanar, multisequential MRI images of brain were obtained without and with injection of contrast. FINDINGS: The cerebral sulci as well as ventricular system are appropriate for age. There is no restricted diffusion. Hyperintensities on T2 and FLAIR images in the suresh radiata and centrum semiovale with sparing of U fibers are nonspecific, statistically most likely consistent with microvascular ischemic changes. There is no intracranial mass, mass effect, midline shift, intra or extra-axial fluid collection or large hemorrhage. No abnormal enhancing lesion is noted. No abnormality of the olfactory nerves. Normal flow-void in the intracranial vessels is noted. The visualized portions of orbits, mastoid air cells as well as paranasal sinuses are unremarkable. MR/MR head/brain wo/w con IMPRESSION: No acute intracranial process is noted. No definite radiological finding to explain patient's symptoms. Electronically authenticated by: ARVIND ANTHONY Date: 02/05/2024 16:48 Dictated By: Arvind Anthony M.D. Signed By: 02/05/24 165 DD/ 47 TD/TT: Sales Representative Printing Supplies: Procedure Note Radiology, Radiologist, MD - 02/05/2024 [place] [address] Magnetic Resonance Report Signed Patient: TERRI LOWE R#: [id number] : 1950cct:[id number] Age/Sex: 73 / MADM Date: 02/05/24 Loc: LAB Attending Dr: Citlaly Aceves M.D. Ordering Physician: Citlaly Aceves M.D. Date of Service: 02/05/24 Procedure(s): MR head/brain wo/w con Accession Number(s): [id number] cc: Tonya Dye TITLE I MATH TUTOR; Citlaly Aceves M.D. The [place] [address] Patient Name: TERRI LOWE MRN: [facility]:[id number] date: 1950 Sex: M Assigned Patient Location: LAB Current Patient Location: LAB Accession/Order Number: [id number] Exam Date: 02/05/2024 15:00 Report Date: 02/05/2024 16:48 At the request of: CITLALY ACEVES Procedure: MR head/brain wo/w con MR head/brain wo/w con, 02/05/2024 3:00 PM EDT INDICATION: Dysomia R43.9 COMPARISON: Prior CT of the sinuses dated 12/05/2023 TECHNIQUE: Multiplanar, multisequential MRI images of brain were obtained without and with injection of contrast. FINDINGS: The cerebral sulci as well as ventricular system are appropriate for age. There is no restricted diffusion. Hyperintensities on T2 and FLAIR imagesin the suresh radiata and centrum semiovale with sparing of U fibers are nonspecific, statistically most likely consistent with microvascularischemic changes. There is no intracranial mass, mass effect, midline shift, intra or extra-axial fluid collection or large hemorrhage. No abnormal enhancing lesion isnoted. No abnormality of the olfactory nerves. Normal flow-void in the intracranial vessels is noted. The visualized portions of orbits, mastoid air cells as well as paranasal sinuses are unremarkable. MR/MR head/brain wo/w con IMPRESSION: No acute intracranial process is noted. No definite radiological findingto explain patient's symptoms. Electronically authenticated by: ARVIND ANTHONY Date: 02/05/2024 16:48 Dictated By: Arvind Anthony M.D. Signed By:02/05/241650 DD/ 47 TD/TT: Sales Representative Printing Supplies: us Citlaly Aceves MD IMG XR PROCEDURES Final Resul t documented in this encounter Visit Diagnoses Not on filedocumented in this encounter Care Teams Home Management Supervisor Relationship Specialty Start Date End Date Mumtaz Jensen MD [address] [place] [address] PCP - General Family Medicine 11/28/23 Tonya Dye NP [address] [place] [address] PCP - ACO Reach 11/22/24 Tonya Dye NP Referring Physician Nurse Practitioner 03/09/23 documented as of this encounter
--- OUTSIDE RECORDS SUMMARY | 2025-04-02 12:45 | XMS_ITS | Encounter Summary ---
Author Organization [facility] tem Address [id number] [address] [place] [address] Care Team Providers Care Overhead Cleaner Name Role Phone NeptaliTonya mercado Gail SCALE ASSEMBLY SET UP WORKER-ASSISTANT FEDERAL PUBLIC DEFENDER Primary Care Provider Encounter Details Date Type Department Care Team (Late st Contact Info) Description 12/07/2021 [facility] [address] [place] [address] Ref Prov, [place] [address] Social History Tobacco Use Types Packs/Day Years [...] have Coronavirus / COVID-19? No / Unsure 12/03/2021 8:35 AM EST documented as of this encounter Plan of Treatment Upcoming Encounters Date Type Department Care Team (Late st Contact Info) Description 04/14/2025 10:30 AM EDT Appointment [facility] - Cardiovascular [address] [place] [address] Muna Persaud PA-C [address] [place] [address] 07/15/2025 1:15 PM EDT Office Visit [facility] [address] [place] [address] Tamara Rebolledo MD [address] [place] [address] 03/04/2026 2:15 PM EDT Appointment [facility] Vascular [address] [place] [address] Robyn Frazier, SCALE ASSEMBLY SET UP WORKER-ASSISTANT FEDERAL PUBLIC DEFENDER [address] [employer] [facility], [address] [place] [address] 03/04/2026 3:00 PM EDT Appointment [facility] - Vascular [address] [place] [address] Robyn Frazier, SCALE ASSEMBLY SET UP WORKER-ASSISTANT FEDERAL PUBLIC DEFENDER [address] [email or web address] [place] [address] 04/02/2026 11:50 AM EDT Office Visit [facility] [address] [place] [address] Yaneli Howell MD [address] [facility] [address] [place] [address] documented as of this encounter Procedures Procedure Name Priority Date/Time Associated Diagnosis Comments VASC VENOUS DUPLEX LOWER RIGHT Routine 12/07/2021 VASC VENOUS DUPLEX LOWER RIGHT Routine 12/07/2021 documented in this encounter Results * Vas venous duplex lwr single right (12/07/2021) Anatomical Region Laterality Modality Vascular Right Ultrasound us Not In System Ref Prov CV VASCULAR ORDERABLES Fi nal Result * Vas venous duplex lwr single right (12/07/2021) Anatomical Region Laterality Modality Vascular Right Ultrasound us Not In System Ref Prov CV VASCULAR ORDERABLES Fi nal Result documented in this encounter Visit Diagnoses Not on filedocumented in this encounter Additional Health Concerns Assessment Noted Time A Body Mass Index follow-up plan has been documented for the patient 11/14/2019 2:01 PM EST documented as of this encounter Care Teams Overhead Cleaner Relationship Specialty Start Date End Date Tonya Dye, RAFITA-ASSISTANT FEDERAL PUBLIC DEFENDER PCP - General Nurse Practitioner 09/07/21 documented as of this encounter
--- OUTSIDE RECORDS SUMMARY | 2025-04-02 12:45 | XMS_ITS | Encounter Summary ---
Author Organization [facility] Address [address] [place] [address] Care Team Providers Care Ball Machine Operator Name Role Phone Tonya Dye PLASTICS AND COMPOSITES INSPECTOR Unavailable [phone] Mumtaz Jensen MD Primary Care Provider Tonya Dye NP Unavailable [phone] Encounter Details Date Type Department Care Team (Late st Contact Info) Description 03/13/2024 Orders Only [facility] [address] [place] [address] Tonya Dye NP [address] [place] [address] Social History Tobacco Use Types Packs/Day [...] Visit [facility] [address] [place] [address] Tonya Dye NP [address] [place] [address] 04/02/2026 11:00 AM EDT Office Visit [facility] [address] [place] [address] Tonya Dye NP [address] [place] [address] documented as of this encounter Procedures Procedure Name Priority Date/Time Associated Diagnosis Comments ELECTROCARDIOGRAM REPORT Routine 024 8:23 AM EDT documented in this encounter Results * Electrocardiogram Report (03/10/2024 8:23 AM EDT) Tonya Dye NP IN CLINIC/BEDSIDE ORDERABLES Fi nal Result documented in this encounter Visit Diagnoses Not on filedocumented in this encounter Additional Health Concerns Assessment Noted Time PHQ-9 Depression Total Score: 3 02/27/20 24 11:39 AM EDT documented as of this encounter Care Teams Ball Machine Operator Relationship Specialty Start Date End Date Mumtaz Jensen MD [address] [place] [address] PCP - General Family Medicine 11/28/23 Tonya Dye NP [address] [place] [address] PCP - ACO Reach 11/22/24 Tonya Dye NP Referring Physician Nurse Practitioner 03/09/23 documented as of this encounter
[2025-04-02 13:13] LABS: Basophils Percent Auto 0.5 % (0.2-2.0); Eosinophils Absolute Auto 0.2 10^3/uL (0.0-0.7); Eosinophils Percent Auto 2.3 % (0.9-7.0); Hematocrit 49.5 % (42.0-54.0); Hemoglobin 16.5 g/dL (14.0-18.0); Immature Granulocytes Abs Auto 0.04 10^3/uL (0.00-0.03); Immature Granulocytes Pct Auto 0.5 % (0.0-0.5); Lymphocytes Absolute Auto 2.1 10^3/uL (1.2-3.8); Lymphocytes Percent Auto 24.6 % (20.5-60.0); Mean Corpuscular HGB Conc 33.3 g/dL (29.9-35.2); Mean Platelet Volume 9.7 fL (9.5-13.5); Monocytes Absolute Auto 0.8 10^3/uL (0.3-0.8); Monocytes Percent Auto 9.8 % (1.7-12.0); Neutrophils Absolute Auto 5.2 10^3/uL (1.4-6.5); Neutrophils Percent Auto 62.3 % (43.0-75.0); Platelet Count 235 10^3/uL (150-450); Red Blood Count 5.32 10^6/uL (4.70-6.10); Red Cell Distribution Width 13.2 % (11.0-15.0); White Blood Count 8.4 10^3/uL (4.0-11.0)
[2025-04-02 13:25] LABS: Creatinine Urine Random 36.28 mg/dL (20.00-300.00); Microalbum Creatinine Ratio Ur 104.7 mg/g (0.0-29.9); Microalbumin Urine Random 3.8 mg/dL (<=30.0)
[2025-04-02 13:57] LABS: Alanine Aminotransferase 20 U/L (16-63); Albumin Globulin Ratio 0.9; Albumin Level 3.3 g/dL (3.4-5.0); Alkaline Phosphatase 105 U/L (46-116); Anion Gap 11.4; Aspartate Amino Transferase 15 U/L (15-37); BUN Creatinine Ratio 23.1; Bilirubin Total 0.3 mg/dL (0.2-1.0); Calcium 9.3 mg/dL (8.5-10.1); Chloride 101 mmol/L (98-107); Chol HDL Ratio 3.9; Cholesterol 158 mg/dL (<=200); Estimated GFR (African America >60 (>=60 mL/min/1.73m^2); Estimated GFR (Non-African Ame >60 (>=60 mL/min/1.73m^2); Globulin 3.8 g/dL; Glucose 127 mg/dL (74-106); HDL Cholesterol 41 mg/dL (40-60); Potassium 4.4 mmol/L (3.5-5.1); Sodium 137 mmol/L (136-145); Total Protein 7.1 g/dL (6.4-8.2); Triglycerides 207 mg/dL (<=150); VLDL CHOLESTEROL 41.4 mg/dL
[2025-04-02 14:05] LABS: Prostate Specific Antigen Scrn 0.47 ng/mL (<=4.00)
[2025-04-02 14:37] LABS: Bilirubin Urine NEGATIVE (NEGATIVE); Blood Urine NEGATIVE (NEGATIVE); Clarity Urine CLEAR (CLEAR); Color Urine LT. YELLOW (YELLOW); Glucose Urine UA >=1000 mg/dL (NEGATIVE); Ketones Urine NEGATIVE (NEGATIVE); Leukocyte Esterase Urine NEGATIVE (NEGATIVE); Nitrite Urine NEGATIVE (NEGATIVE); Protein Urine NEGATIVE (NEG/TRACE); Urobilinogen Urine 0.2 EU/dL (0.2-1.0)
[2025-04-02 14:40] LABS: Urine Microscopic Indicated NO
== END 2025-04-02 12:35 | disposition home or self-care (01) ==
PROVIDERS: PCP Nurse Practitioner; Visit Provider Nurse Practitioner
DX: E78.2 Mixed hyperlipidemia (principal); E11.42 Type 2 diabetes mellitus with diabetic polyneuropathy; E11.51 Type 2 diabetes mellitus with diabetic peripheral angiopathy without gangrene; Z72.0 Tobacco use; E11.65 Type 2 diabetes mellitus with hyperglycemia; Z12.5 Encounter for screening for malignant neoplasm of prostate; I11.0 Hypertensive heart disease with heart failure
CPT/HCPCS: 36415; 80053; 80061; 81003; 82043; 82570; 85025; G0103

== ENCOUNTER 2025-04-08 13:53 | Outpatient (OUT) | payer MEDICARE, OTHER, SELFPAY ==
--- OUTSIDE RECORDS SUMMARY | 2025-03-27 14:00 | XMS_ITS | Encounter Summary ---
Author Organization [facility] Address [address] [place] [address] Care Team Providers Care Tool And Die Maker/Designer Name Role Phone Tonya Dye GETTER WELDER Unavailable [phone] Mumtaz Jensen MD Primary Care Provider [phone] Tonya Dye GETTER WELDER Unavailable [phone] Reason for Visit * Reason Comments Medicare Annual Wellness Visit Initial Encounter Details Date Type Department Care Team (Late st Contact Info) Description 03/27/2025 2:00 PM EDT Office Visit [facility] [address] [place] [address] Tonya Dye NP [address] [place] [id number] Encounter for subsequent annual wellness visit (AWV) in Medicare patient (Primary Dx); Type 2 diabetes mellitus with diabetic polyneuropathy, without long-term current use of insulin (HCC); Diastolic dysfunction; Primary hypertension ; Type 2 diabetes mellitus with diabetic peripheral angiopathy without gangrene, without long-term current use of insulin (HCC); Type 2 diabetes mellitus with hyperglycemia, without long-term current use of insulin (HCC); Mixed hyperlipidemia ; Tobacco user; Screening for prostate cancer; Uncontrolled type 2 diabetes mellitus with hyperglycemia (HCC); Primary insomnia Social History Tobacco Use Types Packs/Day Years Used Date Smoking Tobacco: Every Day Cigarettes Smokeless Tobacco: Never Alcohol Use Standard Drinks/Week Comments Never 0 (1 standard drink = 0.6 oz pur e alcohol) PHQ-2 Answer Date Recorded Patient Health Questionnaire-2 Score 0 03/27/2025 Sex and Gender Information Value Date Recorded Sex Assigned at Not on file Legal Sex Male 10:09 PM EDT Gender Identity Not on file Sexual Orientation Not on file documented as of this encounter Last Filed Vital Signs Vital Sign Reading Time Taken Comments Blood Pressure 124/74 03/27/2025 2:04 PM EDT Pulse 75 03/27/2025 2:04 PM EDT Temperature 36.9 C (98.5 F) 03/27/2025 2:04 PM EDT Respiratory Rate 18 03/27/2025 2:04 PM EDT Oxygen Saturation 93% 03/27/2025 2:04 PM EDT Inhaled Oxygen Concentration - - Weight 84.8 kg (187 lb) 03/27/2025 2:04 PM EDT Height - - Body Mass Index 29.29 08/20/2024 2:27 PM EST documented in this encounter Functional Status * Over the past 2 weeks, how often have you been bothered by any of the following problems? Question Answer Date of Assessment Author Little interest or pleasure in doing things Not at all 03/27/2025 2:22 PM EDT TREY CHOWDARY Feeling down, depressed, or hopeless Not at all 03/27/2025 2:22 PM EDT TREY CHOWDARY Patient Health Questionnaire -2 Score 0 03/27/2025 2:22 PM EDT TREY CHOWDARY * Question Answer Date of Assessment Author Trouble falling or staying asleep, or sleeping too much Several days 03/27/2025 2:22 PM EDT MARCELLO MELISSA Feeling tired or having charissa le energy Several days 03/27/2025 2:22 PM EDT TREY CHOWDARY Poor appetite or overeating Not at all 03/27/2025 2: 22 PM EDT MARCELLO CHOWDARY Feeling bad about yourself - or that you are a failure or have let yourself or your family down Not at all 03/27/2025 2:22 PM EDT TREY CHOWDARY Trouble concentrating on things, such as reading the newspaper or watching television Several days 03/27/2025 2:22 PM EDT TREY CHOWDARY Moving or speaking so slowly that other people could have noticed? Or the opposite - being so fidgety or restless that you have been moving around a lot more than usual. Not at all 03/27/2025 2:22 PM EDT MARCELLO OTOOLE Thoughts that you would be better off or hurting yourself in some way Not at all 03/27/2025 2:22 PM EDT ROBYN CHOWDARY Patient Health Questionnaire -9 Score 3 03/27/2025 2:22 PM EDT TREY CHOWDARY documented as of this encounter Patient Instructions * Patient Instructions* Tonya Dye NP - 03/27/2025 2:00 PM EDT No dose changes to meds Keep up good work on avoiding Little Debbies For sleep: add trazodone 50mg pill, take about an hour before bed After a few weeks let me know if the dose is working or not If confusion, depression occur call me documented in this encounter Progress Notes * Tonya Dye NP - 03/27/2025 2:56 PM EDTAssociated Problem(s): Primary insomnia Awake off and on, cannot shut off mind Add trazodone See if helps * MARCELLO CHOWDARY - 03/27/2025 2:00 PM EDT Pt needs only 1 test strip daily his insurance will not cover 3 test strips daily anymore * Tonya Dye NP - 03/27/2025 2:00 PM EDT Images from the original note were not included. Darin Thacker is a 75 y.o. 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 The current episode started more than 1 year ago. The problem has been waxing and waning since onset. The problem is controlled. Pertinent negatives include no orthopnea, peripheral edema or PND. There are no associated agents to hypertension. Risk factors for coronary artery disease include diabetes mellitus, dyslipidemia, male gender and smoking/tobacco exposure. Pasttreatments include beta blockers and calcium channel blockers. There are no compliance problems. Hypertensive end-organ damage includes heart failure and PVD. Diabetes He presents for his follow-up diabetic visit. He has type 2 diabetes mellitus. His disease course has been stable. There are no hypoglycemic associated symptoms. Pertinent negatives for hypoglycemia include no dizziness, nervousness/anxiousness, seizures or tremors. Associated symptoms include foot paresthesias. Pertinent negatives for diabetes include no polydipsia, no polyphagia and no polyuria. There are no hypoglycemic complications. Symptoms are stable. Diabetic complications include heartdisease, peripheral neuropathy and PVD. Risk factors for coronary artery disease include diabetes mellitus, dyslipidemia, hypertension, male sex and tobacco exposure. Current diabetic treatment includes oral agent (triple therapy). He is compliant with treatment all of the time. His weight is stable. He participates in exercise intermittently. His overall blood glucose range is 140-180 mg/dl. An SANTOS inhibitor/angiotensin II receptor shima is not being taken. He does not see a melter helper.Eye exam is current. SUBJECTIVE: MEDICATIONS: Current Outpatient Medications Medication Instructions amLODIPine (NORVASC) 5 mg, Oral, Daily clopidogrel (PLAVIX) 75 mg, Daily dapagliflozin (FARXIGA) 10 mg, Oral, Daily fluticasone (Flonase) 50 MCG/ACT nasal spray 2 sprays, Each Nostril, Daily, Shake gently. Before first use, prime pump. After use, clean tip and replace cap. gabapentin (Neurontin) 600 MG tablet 1 am , 1 in the afternoon, and 2 at bedtime glipiZIDE (GLUCOTROL) 10 mg, Oral, 2 times daily before meals glucose blood (Accu-Chek Nicolle Plus) test strip 1 each, Other, Daily, 1 each by Other route Daily metFORMIN (GLUCOPHAGE) 1,000 mg, Oral, 2 times daily with meals metoprolol tartrate (LOPRESSOR) 50 mg, Oral, 2 times daily, Take 50 mg by mouth. pantoprazole (PROTONIX) 40 mg, Oral, Daily before breakfast pioglitazone (ACTOS) 30 mg, Oral, Daily simvastatin (ZOCOR) 20 mg, Oral, Nightly, 1 po daily tamsulosin (FLOMAX) 0.8 mg, Nightly traZODone (DESYREL) 50 mg, Oral, Nightly Ventolin HFA 108 (90 Base) MCG/ACT inhaler 2 puffs, Every 4 hours PRN ALLERGIES: Allergies Allergen Reactions Ceclor [Cefaclor] Ciprofloxacin Unknown Dulaglutide Unknown Liraglutide Unknown Penicillin G Unknown REVIEW OF SYMPTOMS: Review of Systems Constitutional: Negative for activity change, appetite change and unexpected weight change. HENT: Negative for ear pain, nosebleeds, sneezing, trouble swallowing and voice change. Eyes: Negative for pain, discharge and visual disturbance. Respiratory: Negative for apnea, chest tightness and wheezing. Cardiovascular: Negative for orthopnea, leg swelling and PND. Gastrointestinal: Negative for abdominal distention, blood in stool, constipation and diarrhea. Genitourinary: Negative for decreased urine volume, difficulty urinating, dysuria and hematuria. Skin: Negative for color change. Neurological: Positive for numbness. Negative for dizziness, tremors and seizures. Psychiatric/Behavioral: Negative for agitation, decreased concentration, hallucinations, [...] Bradycardia DDD (degenerative disc disease), cervical Diabetes (HCC) Diabetic polyneuropathy associated with type 2 diabetes mellitus (HCC) Foraminal stenosis of cervical region Frequent PVCs Hearing loss Heart murmur HTN (hypertension) Hyperlipidemia Incisional infection Lumbar radiculopathy 10/31/2023 Mass of both adrenal glands (HCC) Neck pain Olecranon bursitis of left elbow Olecranon bursitis of right elbow PAD (peripheral artery disease) Peripheral neuropathy Popliteal cyst, right Psoriasis PVD (peripheral vascular disease) Retinopathy, diabetic, bilateral (HCC) Ringing in ears, right Seasonal allergies Sebaceous cyst Tobacco user Uncontrolled type 2 diabetes mellitus with hyperglycemia (HCC) Vitamin B12 deficiency Past Surgical History: Procedure Laterality Date CARPAL TUNNEL RELEASE Right 12/09/[address] AORTA AND BILATERAL ILIOFEMORAL RUNOFF ANGIOGRAM W AND/OR WO IV CONTRAST 09/07/2021 CT AORTA AND BILATERAL ILIOFEMORAL RUNOFF ANGIOGRAM W AND/OR WO IV CONTRAST 09/07/2021 ROTATOR CUFF REPAIR Left 2009 Dr Ribeiro ROTATOR CUFF REPAIR Right 2010 Dr Ribeiro ROTATOR CUFF REPAIR Right 2010 revised -Dr Luis SOFT TISSUE MASS EXCISION Right shoulder VASCULAR SURGERY 2021 right lower extremity bypass family history is not on file. OBJECTIVE: Visit Vitals BP 124/74 (BP Location: Left arm, Patient Position: Sitting, BP Cuff Size: Adult long) Pulse 75 Temp 98.5 ??F (Temporal) Resp 18 Wt 187 lb SpO2 93% BMI 29.29 kg/m?? Smoking Status Every Day BSA 2 m?? Physical Exam Vitals and nursing note reviewed. Constitutional: Appearance: Normal appearance. HENT: Head: Normocephalic. Right Ear: External ear normal. Left Ear: External ear normal. Nose: Nose normal. Mouth/Throat: Mouth: Mucous membranes are moist. Pharynx: Oropharynx is clear. Eyes: Extraocular Movements: Extraocular movements intact. Conjunctiva/sclera: Conjunctivae normal. Neck: Vascular: Carotid bruit present. Cardiovascular: Rate and Rhythm: Normal rate and regular rhythm. Pulses: Normal pulses. Heart sounds: Murmur heard. Pulmonary: Effort: Pulmonary effort is normal. Breath sounds: Normal breath sounds. No wheezing or rhonchi. Abdominal: General: Bowel sounds are normal. There is no distension. Palpations: Abdomen is soft. Tenderness: There is no abdominal tenderness. Musculoskeletal: Cervical back: Neck supple. Right lower leg: No edema. Left lower leg: No edema. Lymphadenopathy: Cervical: No cervical adenopathy. Skin: General: Skin is warm and dry. Capillary Refill: Capillary refill takes 2 to 3 seconds. Neurological: General: No focal deficit present. Mental Status: He is alert. Psychiatric: Mood and Affect: Mood normal. Behavior: Behavior normal. Thought Content: Thought content normal. Judgment: Judgment normal. ASSESSMENT AND PLAN: Follow up in about 3 months (around 06/27/2025) for Recheck. Problem List Items Addressed This Visit Diastolic dysfunction Per ECHO findings Current meds: amlodipine, farxiga, b shima Relevant Orders Comprehensive metabolic panel HTN (hypertension) Please check blood pressure daily and record DASH diet Limit caffeine Take medication as directed Contact office if chest pain, pressure, dizziness, shortness of breath, swelling legs Recommend slow position changes Current meds: amlodipine and b shima Relevant Orders Comprehensive metabolic panel Urinalysis with reflex microscopic (clean catch) Microalbumin / creatinine, urine ratio Hyperlipidemia On statin therapy Recommend yearly lab checks and prn dose changes Relevant Orders Comprehensive metabolic panel Lipid panel Tobacco user The patient has been advised of the risks of continued smoking: stroke, CO, all forms of cancer, lung disease, and . Options for quitting smoking include: cold turkey, hypnosis, acupuncture, nicotine replacement meds(gum, lozenges, and patches), Buproprion, and Varenicline. At this time pt is encouraged to evaluate their goals for wanting to quit smoking, and reach out toprovider when ready to start this process Relevant Orders CBC and differential Urinalysis with reflex microscopic (clean catch) Screening for prostate cancer Relevant Orders PSA Encounter for subsequent annual wellness visit (AWV) in Medicare patient - Primary Reviewed Ht/Wt/BMI Recommend eye exam yearly Recommend dental exams twice a year Balance work/leisure activities Exercises is recommended most days of the week (appropriate as chronic conditions allow) Follow up yearly and prn Type 2 diabetes mellitus with circulatory disorder, without long-term current use of insulin (HCC) Check blood sugars daily, notify if <70 or >200. Take medications (pills or insulin) as directed. Monitor for s/s of hypoglycemia (sweaty, dizziness, nausea, vomiting, or shakiness). Watch for increase in thirst, urination, or appetite. Inspect feet frequently monitoring for open wounds , andalso recommend yearly eye exam. Pt should attempt to remain as physically active as chronic conditions allow, as well as trying to follow a diet low in carbohydrates, and simple sugars. Current meds: farxiga, glipizide, metformin, pioglitazone A1c: 7.9% 03/27/25 Relevant Orders POCT glycosylated hemoglobin (Hb A1C) docked device (Completed) CBC and differential Comprehensive metabolic panel Lipid panel Urinalysis with reflex microscopic (clean catch) Microalbumin / creatinine, urine ratio Type 2 diabetes mellitus, without long-term current use of insulin (HCC) Check blood sugars daily, notify if <70 or >200. Take medications (pills or insulin) as directed. Monitor for s/s of hypoglycemia (sweaty, dizziness, nausea, vomiting, or shakiness). Watch for increase in thirst, urination, or appetite. Inspect feet frequently monitoring for open wounds , andalso recommend yearly eye exam. Pt should attempt to remain as physically active as chronic conditions allow, as well as trying to follow a diet low in carbohydrates, and simple sugars. Current meds: farxiga, statin, MATIAS, actos, and metformin A1c 7.9% 03/27/25 8.9% 11/20/24 Relevant Orders CBC and differential Comprehensive metabolic panel Urinalysis with reflex microscopic (clean catch) Microalbumin / creatinine, urine ratio Comprehensive metabolic panel Lipid panel Urinalysis with reflex microscopic (clean catch) Microalbumin / creatinine, urine ratio POCT glycosylated hemoglobin (Hb A1C) docked device (Completed) CBC and differential Comprehensive metabolic panel Lipid panel Urinalysis with reflex microscopic (clean catch) Microalbumin / creatinine, urine ratio Type 2 diabetes mellitus with diabetic polyneuropathy (HCC) Is currently taking gabapentin OARRS reviewed Recommend tight blood sugar control, proper fitting shoes, freq foot checks Relevant Orders CBC and differential Comprehensive metabolic panel Urinalysis with reflex microscopic (clean catch) Microalbumin / creatinine, urine ratio Primary insomnia Awake off and on, cannot shut off mind Add trazodone See if helps Relevant Medications traZODone (Desyrel) 50 MG tablet Other Visit Diagnoses Uncontrolled type 2 diabetes mellitus with hyperglycemia (HCC) Relevant Medications glucose blood (Accu-Chek Nicolle Plus) test strip * Tonya Dye NP - 03/27/2025 6:58 AM EDTAssociated Problem(s): Tobacco user The patient has been advised of the risks of continued smoking: stroke, CO, all forms of cancer, lung disease, and . Options for quitting smoking include: cold turkey, hypnosis, acupuncture, nicotine replacement meds(gum, lozenges, and patches), Buproprion, and Varenicline. At this time pt is encouraged to evaluate their goals for wanting to quit smoking, and reach out toprovider when ready to start this process * Tonya Dye NP - 03/27/2025 6:58 AM EDTAssociated Problem(s): Hyperlipidemia On statin therapy Recommend yearly lab checks and prn dose changes * Tonya Dye NP - 03/27/2025 6:57 AM EDTAssociated Problem(s): Encounter for subsequent annual wellness visit (AWV) in Medicare patient Reviewed Ht/Wt/BMI Recommend eye exam yearly Recommend dental exams twice a year Balance work/leisure activities Exercises is recommended most days of the week (appropriate as chronic conditions allow) Follow up yearly and prn * Tonya Dye NP - 03/27/2025 6:57 AM EDTAssociated Problem(s): Type 2 diabetes mellitus, without long-term current use of insulin (HCC) Check blood sugars daily, notify if <70 or >200. Take medications (pills or insulin) as directed. Monitor for s/s of hypoglycemia (sweaty, dizziness, nausea, vomiting, or shakiness). Watch for increase in thirst, urination, or appetite. Inspect feet frequently monitoring for open wounds , andalso recommend yearly eye exam. Pt should attempt to remain as physically active as chronic conditions allow, as well as trying to follow a diet low in carbohydrates, and simple sugars. Current meds: farxiga, statin, MATIAS, actos, and metformin A1c 7.9% 03/27/25 8.9% 11/20/24 * Tonya Dye NP - 03/27/2025 6:56 AM EDTAssociated Problem(s): Type 2 diabetes mellitus with circulatory disorder, without long-term current use of insulin (HCC) Check blood sugars daily, notify if <70 or >200. Take medications (pills or insulin) as directed. Monitor for s/s of hypoglycemia (sweaty, dizziness, nausea, vomiting, or shakiness). Watch for increase in thirst, urination, or appetite. Inspect feet frequently monitoring for open wounds , andalso recommend yearly eye exam. Pt should attempt to remain as physically active as chronic conditions allow, as well as trying to follow a diet low in carbohydrates, and simple sugars. Current meds: farxiga, glipizide, metformin, pioglitazone A1c: 7.9% 03/27/25 * Tonya Dye NP - 03/27/2025 6:56 AM EDTAssociated Problem(s): HTN (hypertension) Please check blood pressure daily and record DASH diet Limit caffeine Take medication as directed Contact office if chest pain, pressure, dizziness, shortness of breath, swelling legs Recommend slow position changes Current meds: amlodipine and b shima * Tonya Dye NP - 03/27/2025 6:55 AM EDTAssociated Problem(s): Diastolic dysfunction Per ECHO findings Current meds: amlodipine, farxiga, b shima * Tonya Dye NP - 03/27/2025 6:54 AM EDTAssociated Problem(s): Type 2 diabetes mellitus with diabetic polyneuropathy (HCC) Is currently taking gabapentin OARRS reviewed Recommend tight blood sugar control, proper fitting shoes, freq foot checks documented in this encounter Plan of Treatment Upcoming Encounters Date Type Department Care Team (Late st Contact Info) Description 06/30/2025 1:00 PM EDT [facility] Visit [facility] [address] [place] [address] Tonya Dye NP [address] [place] [id number] 04/02/2026 11:00 AM EDT Office Visit [facility] [address] [place] [address] Tonya Dye NP [address] [place] [address] Scheduled Orders Name Type Priority Associated Diagnoses Orde r Schedule CBC and differential Lab Routine Type 2 diabetes mellitus with diabetic polyneuropathy, without long-term current use of insulin (HCC) Type 2 diabetes mellitus with diabetic peripheral angiopathy without gangrene, without long-term current use of insulin (HCC) Tobacco user Expected: 03/27/2025 (Approximate), Expires: 03/27/2026 Comprehensive metabolic panel Lab Routine Type 2 diabetes mellitus with diabetic polyneuropathy, without long-term current use of insulin (HCC) Diastolic dysfunction Primary hypertension Type 2 diabetes mellitus with diabetic peripheral angiopathy without gangrene, without long-term current use of insulin (HCC) Type 2 diabetes mellitus with hyperglycemia, without long-term current use of insulin (HCC) Mixed hyperlipidemia Expected: 03/27/2025 (Approximate), Expires: 03/27/2026 Lipid panel Lab Routine Type 2 diabetes mellitus with diabetic peripheral angiopathy without gangrene, without long-term current use of insulin (HCC) Type 2 diabetes mellitus with hyperglycemia, without long-term current use of insulin (HCC) Mixed hyperlipidemia Expected: 03/27/2025 (Approximate), Expires: 03/27/2026 Urinalysis with reflex microscopic (clean catch) Lab Routine Type 2 diabetes mellitus with diabetic polyneuropathy, without long-term current use of insulin (HCC) Primary hypertension Type 2 diabetes mellitus with diabetic peripheral angiopathy without gangrene, without long-term current use of insulin (HCC) Type 2 diabetes mellitus with hyperglycemia, without long-term current use of insulin (HCC) Tobacco user Expected: 03/27/2025 (Approximate), Expires: 03/27/2026 Microalbumin / creatinine, urine ratio Lab Routine Type 2 diabetes mellitus with diabetic polyneuropathy, without long-term current use of insulin (HCC) Primary hypertension Type 2 diabetes mellitus with diabetic peripheral angiopathy without gangrene, without long-term current use of insulin (HCC) Type 2 diabetes mellitus with hyperglycemia, without long-term current use of insulin (HCC) Expected: 03/27/2025 (Approximate), Expires: 03/27/2026 PSA Lab Routine Screening for prostate cancer Expected: 03/27/2025 (Approximate), Expires: 03/27/2026 documented as of this encounter Procedures Procedure Name Priority Date/Time Associated Diagnosis Comments POCT GLYCOSYLATED HEMOGLOBIN (HGB A1C) Routine 03/27/2025 2:37 PM EDT Type 2 diabetes mellitus with diabetic peripheral angiopathy without gangrene, without long-term current use of insulin (HCC) documented in this encounter Results * (ABNORMAL) POCT glycosylated hemoglobin (Hb A1C) docked device (03/27/2025 2:37 PM EDT) Hemoglobin A1C 7.9 Blood Venous blood specimen / Unknown 03/27/2025 2:37 PM EDT Tonya Dye NP POINT OF CARE TEST ENTER/EDIT O RDERABLES Final Result documented in this encounter Visit Diagnoses Diagnosis Encounter for subsequent annual wellness visit (AWV) in Medicare patient- Primary Type 2 diabetes mellitus with diabetic polyneuropathy, without long-term current use of insulin (HCC) Diastolic dysfunction Unspecified heart disease Primary hypertension Unspecified essential hypertension Type 2 diabetes mellitus with diabetic peripheral angiopathy without gangrene, without long-term current use of insulin (HCC) Type 2 diabetes mellitus with hyperglycemia, without long-term current use of insulin (HCC) Mixed hyperlipidemia Mixed hyperlipidemia Tobacco user Tobacco use disorder Screening for prostate cancer Special screening for malignant neoplasm of prostate Uncontrolled type 2 diabetes mellitus with hyperglycemia (HCC) Primary insomnia Persistent disorder of initiating or maintaining sleep documented in this encounter Additional Health Concerns Assessment Noted Time PHQ-9 Depression Total Score: 3 03/27/20 25 2:22 PM EDT documented as of this encounter Care Teams Tool And Die Maker/Designer Relationship Specialty Start Date End Date Mumtaz Jensen MD [address] [place] [address] PCP - General Family Medicine 11/28/23 Tonya Dye NP [address] [place] [address] PCP - ACO Reach 11/22/24 Tonya Dye NP Referring Physician Nurse Practitioner 03/09/23 documented as of this encounter
--- OUTSIDE RECORDS SUMMARY | 2025-04-08 13:00 | XMS_ITS | Encounter Summary ---
Author Organization [facility] Address [address] [place] [address] Care Team Providers Care Rigging Supervisor Name Role Phone Tonya Dye CARBON ELECTRODES SUPERVISOR Unavailable [phone] Mumtaz Jensen MD Primary Care Provider Tonya Dye CARBON ELECTRODES SUPERVISOR Unavailable [phone] Reason for Visit * Reason Comments Abdominal Pain Back Pain Encounter Details Date Type Department Care Team (Late st Contact Info) Description 04/08/2025 1:00 PM EDT Office Visit [facility] [address] [place] [address] Tonya Dye NP [address] [place] [address] Abdominal pain, generalized (Primary Dx); Diverticulitis Social History Tobacco Use Types Packs/Day Years [...] Sign Reading Time Taken Comments Blood Pressure 118/72 04/08/2025 1:10 PM EDT Pulse 74 04/08/2025 1:10 PM EDT Temperature 36.6 C (97.8 F) 04/08/2025 1:10 PM EDT Respiratory Rate 18 04/08/2025 1:10 PM EDT Oxygen Saturation 95% 04/08/2025 1:10 PM EDT Inhaled Oxygen Concentration - - Weight 84.4 kg (186 lb) 04/08/2025 1:10 PM EDT Height - - Body Mass Index 29.13 08/20/2024 2:27 PM EST documented in this encounter Patient Instructions * Patient Instructions* Tonya Dye NP - 04/08/2025 1:00 PM EDT Get labs done Soft diet, bland foods, if worsening pain go to the ER We will order US of gallbladder, fax order to [facility], they will call you about scheduling this documented in this encounter Progress Notes * Tonya Dye NP - 04/08/2025 1:52 PM EDTAssociated Problem(s): Diverticulitis Check labs, if pain worsens go to Er Allergies to PCN and cipro * Tonya Dye NP - 04/08/2025 1:51 PM EDTAssociated Problem(s): HTN (hypertension) Please check blood pressure daily and record DASH diet Limit caffeine Take medication as directed Contact office if chest pain, pressure, dizziness, shortness of breath, swelling legs Recommend slow position changes Current meds: amlodipine and b shima * Tonya Dye NP - 04/08/2025 1:51 PM EDTAssociated Problem(s): Abdominal pain, generalized Check labs Suspicion divertic, but possible gallbladder documented in this encounter Plan of Treatment Upcoming Encounters Date Type Department Care Team (Late st Contact Info) Description 06/30/2025 1:00 PM EDT Office Visit [facility] [address] [place] [address] Tonya Dye, SHIVAM [address] [place] [address] 04/02/2026 11:00 AM EDT Office Visit [facility] [address] [place] [address] Tonya Dye, SHIVAM [address] [place] [address] Scheduled Orders Name Type Priority Associated Diagnoses Orde r Schedule CBC and differential Lab Routine Abdominal pain, generalized Expected: 04/08/2025 (Approximate), Expires: 04/08/2026 Comprehensive metabolic panel Lab Routine Abdominal pain, generalized Expected: 04/08/2025 (Approximate), Expires: 04/08/2026 Urinalysis with reflex microscopic (clean catch) Lab Routine Abdominal pain, generalized Expected: 04/08/2025 (Approximate), Expires: 04/08/2026 Sedimentation rate, automated Lab Routine Abdominal pain, generalized Expected: 04/08/2025 (Approximate), Expires: 04/08/2026 Amylase Lab Routine Abdominal pain, generalized Expected: 04/08/2025 (Approximate), Expires: 04/08/2026 Lipase Lab Routine Abdominal pain, generalized Expected: 04/08/2025 (Approximate), Expires: 04/08/2026 documented as of this encounter Visit Diagnoses Diagnosis Abdominal pain, generalized- Primary Diverticulitis Diverticulitis of colon (without mention of hemorrhage) documented in this encounter Additional Health Concerns Assessment Noted Time PHQ-9 Depression Total Score: 3 03/27/20 25 2:22 PM EDT documented as of this encounter Care Teams Rigging Supervisor Relationship Specialty Start Date End Date Mumtaz Jensen MD [address] [place] [address] PCP - General Family Medicine 11/28/23 Tonya Dye NP [address] [place] [address] PCP - ACO Reach 11/22/24 Tonya Dye NP Referring Physician Nurse Practitioner 03/09/23 documented as of this encounter
--- OUTSIDE RECORDS SUMMARY | 2025-04-08 14:00 | XMS_ITS | Encounter Summary ---
Author Organization [facility] Address [address] [place] [address] Care Team Providers Care Assembly Lead Person Name Role Phone Tonya Dye NP Unavailable [phone] Mumtaz Jensen MD Primary Care Provider Tonya Dye NP Unavailable [phone] Encounter Details Date Type Department Care Team (Late Contact Info) Description 03/27/2025 Bamboo flowsheet [facility] [address] [place] [address] Tonya Dye NP [address] [place] [address] Social History Tobacco Use Types Packs/Day Years [...] 06/30/2025 1:00 PM EDT Office Visit [facility] [address] [place] [address] Tonya Dye, SHIVAM [address] [place] [address] 04/02/2026 11:00 AM EDT Office Visit [facility] [address] [place] [address] Tonya Dye NP [address] [place] [address] documented as of this encounter Visit Diagnoses Not on filedocumented in this encounter Additional Health Concerns Assessment Noted Time PHQ-9 Depression Total Score: 3 03/27/20 25 2:22 PM EDT documented as of this encounter Care Teams Assembly Lead Person Relationship Specialty Start Date End Date Mumtaz Jensen MD [address] [place] [address] PCP - General Family Medicine 11/28/23 Tonya Dye NP [address] [place] [address] PCP - ACO Reach 11/22/24 Tonya Dye NP Referring Physician Nurse Practitioner 03/09/23 documented as of this encounter
--- OUTSIDE RECORDS SUMMARY | 2025-04-08 14:01 | XMS_ITS | Encounter Summary ---
Author Organization [facility] [employer] [facility] tem Address [id number] [address] [place] [address] Care Team Providers Care Line Erector Apprentice Name Role Phone NeptaliTonya mercado Gail CDL DRIVER-INTERNAL MEDICINE VETERINARY TECHNICIAN Primary Care Provider Encounter Details Date Type Department Care Team (Late st Contact Info) Description 08/17/2021 [facility] [address] [place] [address] Ref Prov, [place] [address] Social History Tobacco Use Types Packs/Day Years [...] Info) Description 04/14/2025 10:30 AM EDT Appointment [facility] - Cardiovascular [address] [place] [address] Muna Persaud PA-C [address] [place] [address] 07/15/2025 1:15 PM EDT Office Visit [facility] Cardiology [address] [place] [address] Tamara Rebolledo MD [address] [place] [address] 03/04/2026 2:15 PM EDT Appointment [facility] - Vascular [address] [place] [address] Robyn Frazier, CDL DRIVER-INTERNAL MEDICINE VETERINARY TECHNICIAN [address] [employer] [place] [address] 03/04/2026 3:00 PM EDT Appointment [facility] - Vascular [address] [place] [address] Robyn Frazier, CDL DRIVER-INTERNAL MEDICINE VETERINARY TECHNICIAN [address] [employer] [place] [address] 04/02/2026 11:50 AM EDT Office Visit [facility] [place] [address] Yaneli Howell MD [address] [facility] [address] [place] [address] documented as of this encounter Procedures Procedure [...] documented as of this encounter Care Teams Line Erector Apprentice Relationship Specialty Start Date End Date Tonya Dye, RAFITA-INTERNAL MEDICINE VETERINARY TECHNICIAN PCP - General Nurse Practitioner 09/07/21 documented as of this encounter
--- OUTSIDE RECORDS SUMMARY | 2025-04-08 14:01 | XMS_ITS | Encounter Summary ---
Author Organization [facility] Address [id number] [address] [place] [address] Care Team Providers Care Peeler Operator Name Role Phone Tonya Dye COMPOSITION TILE LAYER-VENETIAN BLIND INSTALLER Primary Care Provider Encounter Details Date Type Department Care Team (Late st Contact Info) Description 01/24/2024 Orders Only [facility] [address] [facility] [place] [address] Dafne Jimenez CMA PAD (peripheral artery disease) ([facility]); Obesity (BMI 30.0-34.9); Claudication ([facility]) Social History Tobacco Use Types Packs/Day Years [...] AM EDT Appointment [facility] - Cardiovascular [address] [place] [address] Muna Perasud PA-C [address] [place] [address] 07/15/2025 1:15 PM EDT [facility] [address] [facility] [address] [place] [address] Tamara Rebolledo MD [address] [place] [address] 03/04/2026 2:15 PM EDT Appointment [facility] V[facility] [address] [facility] [place] [address] Robyn Frazier, COMPOSITION TILE LAYER-VENETIAN BLIND INSTALLER [address] [place] [address] 03/04/2026 3:00 PM EDT Appointment [facility] Vascular [address] [place] [address] Robyn Frazier, COMPOSITION TILE LAYER-VENETIAN BLIND INSTALLER [address] [place] [address] 04/02/2026 11:50 AM EDT Office Visit [facility] [place] [address] Yaneli Howell MD [address] , [facility] [address] [place] [address] documented as of this encounter Visit Diagnoses Diagnosis PAD (peripheral artery disease) Unspecified peripheral vascular disease Obesity (BMI 30.0-34.9) Claudication Unspecified peripheral vascular disease documented in this encounter Additional Health Concerns Assessment Noted Time A Body Mass Index follow-up plan has been documented for the patient 11/14/2019 2:01 PM EST documented as of this encounter Care Teams Peeler Operator Relationship Specialty Start Date End Date Tonya Dye, RAFITA-VENETIAN BLIND INSTALLER PCP - General Nurse Practitioner 09/07/21 documented as of this encounter
--- OUTSIDE RECORDS SUMMARY | 2025-04-08 14:01 | XMS_ITS | Clinical Summary ---
Author Organization [facility] Address [address] [place] [address] Care Team Providers Care Pit Crew Support Worker Name Role Phone Tonya Dye NP Unavailable [phone] Mumtaz Jensen MD Primary Care Provider Tonya Dye DAMAGE INSIDE ADJUSTER Unavailable [phone] Allergies Active Allergy Reactions Criticality Noted [...] Active Problems Problem Noted Date Diagnosed Date Abdominal pain, generalized 04/08/2025 Assessment & Plan (04/08/2025 1:51 PM EDT): Check labs Suspicion divertic, but possible gallbladder Primary insomnia 03/27/2025 Assessment & Plan (03/27/2025 [...] without gangrene 11/20/2024 Type 2 diabetes mellitus, [facility] long-term current use of insulin 08/20/2024 Assessment [...] hospitalization Screening for prostate cancer 02/27/2024 Overview (04/02/2025): 0.47, 03/05/24 04/02/25 PSA 0.47 Encounter for subsequent marlon ual wellness visit (AWV) in Medicare patient 02/27/2024 [...] and prn Diverticulitis 02/27/2024 Assessment & Plan (04/08/2025 1:52 PM EDT): Check labs, if pain worsens go to Er Allergies to PCN and cipro Assessment & Plan (08/20/2024 2:47 PM EST): [...] POLYNEUROPATHY ASSOCIATED WITH TYPE 2 DIABETES MELLITUS ([facility]/HCC) WRITTEN ON 01/16/2024 10:23 AM BY TONYA DYE NP OARRS reviewed Increase gabapentin dose 600mg Fu in 6 weeks Assessment & Plan (11/20/2024 6:45 AM EST): >>ASSESSMENT AND PLAN FOR DIABETIC POLYNEUROPATHY ASSOCIATED WITH TYPE 2 DIABETES MELLITUS (CMS/HCC) WRITTEN ON 04/04/2024 10:06 AM BY TONYA DYE NP Continue current gabapentin dose Fu in 2 months Assessment & Plan (11/20/2024 6:45 AM EST): >>ASSESSMENT AND PLAN FOR DIABETIC POLYNEUROPATHY ASSOCIATED WITH TYPE 2 DIABETES MELLITUS ([facility]/HCC) WRITTEN ON 06/04/2024 2:10 PM BY TONYA AICHHOLZ, DAMAGE INSIDE ADJUSTER Cont w memo Assessment & Plan (11/20/2024 6:45 AM EST): >>ASSESSMENT AND PLAN FOR DIABETIC POLYNEUROPATHY ASSOCIATED WITH TYPE 2 DIABETES MELLITUS ([facility]) WRITTEN ON 08/20/2024 7:01 AM BY TONYA [...] shima HTN (hypertension) 10/31/2023 Assessment & Plan (04/08/2025 1:51 PM EDT): Please check blood pressure daily and record DASH diet Limit caffeine Take medication as directed Contact office if chest pain, pressure, dizziness, shortness of breath, swelling legs Recommend slow position changes Current meds: amlodipine and b shima Assessment & Plan (03/27/2025 6:56 AM EDT): [...] of the risks of continued smoking: stroke, MS, all forms of cancer, lung disease, and [...] of the risks of continued smoking: stroke, MS, all forms of cancer, lung disease, and [...] of the risks of continued smoking: stroke, MS, all forms of cancer, lung disease, and [...] of the risks of continued smoking: stroke, MS, all forms of cancer, lung disease, and [...] of the risks of continued smoking: stroke, MS, all forms of cancer, lung disease, and [...] (10/31/2023): Added automatically from request for surgery [id number] Assessment & Plan (11/20/2024 6:55 AM EST): [...] (02/27/2024): Added automatically from request for surgery [id number] Last Assessment & Plan: Arterial Duplex US [...] Conjunctivitis 03/09/2023 04/04/2024 Mild aortic stenosis 05/09/2022 Obesity (BMI 30.0-34.9) 05/09/202203/17 Draining postoperative wound 12/03/2021 11/29/2023 Encounters Date Type Department Care Team Description 04/08/2025 1:00 PM EDT Office Visit [facility] [address] [place] [address] Tonya Dye NP Abdominal pain, generalized (Primary Dx); Diverticulitis 04/08/2025 Bamboo flowsheet [facility] [address] [place] [address] Tonya Dye NP 04/02/2025 Clinisync Result Encounter [facility] External Department Unsolicited Tonya Dye NP 03/27/2025 2:00 PM EDT Office Visit [facility] [address] [place] [address] Tonya Dye NP Encounter for subsequent annual [...] (HCC); Primary insomnia 03/27/2025 Bamboo flowsheet [facility] [address] [address] Tonya Dye NP 03/03/2025 Refill [facility] [address] [place] [address] Tonya Dye NP Uncontrolled type 2 diabetes mellitus with hyperglycemia (HCC) 03/03/2025 Refill [facility] [address] [place] [address] Tonya Dye NP Uncontrolled type 2 diabetes mellitus with hyperglycemia (HCC) 03/03/2025 Refill [facility] [address] [place] [address] Tonya Dye NP Primary hypertension ; Allergic rhinitis, unspecified seasonality, unspecified trigger; Diabetic polyneuropathy associated with type 2 diabetes mellitus (HCC); Uncontrolled type 2 diabetes mellitus with hyperglycemia (HCC); PAD (peripheral artery disease); Acute gastritis without hemorrhage, unspecified gastritis type 03/03/2025 Telephone [facility] [address] [place] [address] Tonya Dye NP 02/03/2025 Clinisync Result Encounter [facility] External Department Unsolicited Provider, Generic External Data 01/29/2025 Refill [facility] [address] [place] [address] Tonya Dye NP Acute non-recurrent sinusitis of other sinus (Primary Dx) 01/29/2025 Telephone [facility] [address] [place] [address] Tonya Dye NP Medication Question from Last [...] (186 lb) 04/08/2025 1:10 PM EDT Height 170.2 cm (5' 7 ) 08/20/2024 2:27 PM EST Body Mass Index 29.13 08/20/2024 2:27 PM EST Plan of Treatment Upcoming Encounters Date Type Department Care Team (Late st Contact Info) Description 06/30/2025 1:00 PM EDT Office Visit [facility] [address] [place] [address] Tonya Dye, SHIVAM [address] [place] [address] 04/02/2026 11:00 AM EDT Office Visit [facility] [address] [place] [address] Tonya Dye NP [address] [place] [address] Health Maintenance Due Date Last Done Comments CT Colonography 1950 FIT-DNA 1950 FIT 1950 FOBT 1950 Sigmoidoscopy 1950 Diabetes: Hemoglobin A1C 06/27/2025 025, 11/20/2024, 06/24/2024, Additional history exists Diabetes: Retinopathy Screening 11/21/2025 11/21/2024, 11/22/2023, 04/15/2022 Medicare Annual Wellness (AWV) 03/27/2026 0 03/27/2025, 02/27/2024, 02/27/2024 Diabetes: Urine Protein Screening 04/02/2026 025, 01/27/2023 Colonoscopy 10/16/2026 10/16/2016 Colorectal Cancer Screening 10/16/2026 Pneumococcal Vaccine: 65+ Years Completed , 08/07/2019 Influenza Vaccine Completed 07/12/2024, , 07/27/2022, Additional history exists Procedures Procedure Name Priority Date/Time Associated Diagnosis Comments SRMCO[facility] PROSTATE SPECIFIC ANTIGEN SCRN Routine 04/02/2025 12:56 PM EDT ALL LIPID PROFILE (FASTING) Routine 04/02/2025 12:56 PM EDT [facility] CMP (CMP) (FOR REMOTE [facility] USE) Routine 04/02/2025 12:56 PM EDT ALL CBC WITH AUTO DIFF Routine 04/02/2025 12:56 PM EDT TBH UA (CLEAN/CATCH) MICROSCOPIC IF INDICATE Routine 04/02/2025 12:48 PM EDT TBH MICROALB CREAT RATIO RANDOM Routine 04/02/2025 12:48 PM EDT POCT GLYCOSYLATED HEMOGLOBIN (HGB A1C) Routine 03/27/2025 2:37 PM EDT Type 2 diabetes mellitus with diabetic peripheral angiopathy without gangrene, without long-term current use of insulin (HCC) SEGMENTAL BLOOD PRESSURE 02/03/2025 1:39 PM EDT from Last 3 Months Results * [facility] PROSTATE SPECIFIC ANTIGEN SCRN (04/02/2025 12:56 PM EDT) PROSTATE SPECIFIC ANTIGEN SCRN 0.47 <=4.00 ng/mL TBH 04/02/2025 12:5 6 PM EDT 04/02/2025 12:57 PM EDT Narrative CLINISYNC - 04/02/2025 2:20 PM EDT us Tonya Dye NP CLINISYNC Final Result [facility]NC TB * (ABNORMAL) [facility] CMP (CMP) (FOR REMOTE [facility] USE) (04/02/2025 12:56 PM EDT) SODIUM 137 136 - 145 mmol/L TBH POTASSIUM 4.4 3.5 - 5.1 mmol/L TBH CHLORIDE 101 98 - 107 mmol/L TBH CARBON DIOXIDE 29.0 21.0 - 32.0 mmol/L TBH ANION GAP 11.4 TBH GLUCOSE 127(H) 74 - 106 mg/dL TBH BLOOD UREA NITROGEN 15.0 7.0 - 18.0 mg/dL TBH CREATININE 0.65(L) 0.70 - 1.30 mg/dL TBH TBH EGFR-AF COLOMBIAN >60 >=60 mL/min/1. 73m 2 TBH TBH EGFR-NON AF COLOMBIAN >60 >=60 mL/min/1. 73m 2 TBH BUN CREATININE RATIO 23.1 TBH CALCIUM 9.3 8.5 - 10.1 mg/dL TBH BILIRUBIN TOTAL 0.3 0.2 - 1.0 mg/dL TBH ASPARTATE AMINO TRANSFERASE 15 15 - 37 U/L TBH ALANINE AMINOTRANSFERASE 20 16 - 63 U/L TBH ALKALINE PHOSPHATASE 105 46 - 116 U/L TBH TOTAL PROTEIN 7.1 6.4 - 8.2 g/dL TBH ALBUMIN LEVEL 3.3(L) 3.4 - 5.0 g/dL TBH GLOBULIN 3.8 g/dL TBH ALBUMIN GLOBULIN RATIO 0.9 TBH 04/02/2025 12:5 6 PM EDT 04/02/2025 12:57 PM EDT Narrative CLINISYNC - 04/02/2025 1:57 PM EDT us Tonya Dye NP CLINISYNC Final Result [facility] * (ABNORMAL) ALL LIPID PROFILE (FASTING) (04/02/2025 12:56 PM EDT) TRIGLYCERIDES 207(H) <=150 mg/dL TBH CHOLESTEROL 158 <=200 mg/dL TBH HDL CHOLESTEROL 41 40 - 60 mg/dL TB Comment: > or =60 mg/dl - LOW CARDIOVASCULAR RISK <40 mg/dl - HIGH CARDIOVASCULAR RISK LDL CHOLESTEROL CALCULATED 76.0 mg/dL TB Comment: <100 mg/dl OPTIMAL 100-129 mg/dl NEAR OR ABOVE OPTIMAL 130-159 mg/dl BORDERLINE HIGH 160-189 mg/dl HIGH >190 mg/dl VERY HIGH VLDL CHOLESTEROL 41.4 mg/dL TBH CHOL HDL RATIO 3.9 TB Comment: 3.3 - 4.4 LOW RISK 4.4 - 7.1 AVERAGE RISK 7.1 - 11.0 MODERATE RISK >11.0 HIGH RISK 04/02/2025 12:5 6 PM EDT 04/02/2025 12:57 PM EDT Narrative CLINISYNC - 04/02/2025 1:57 PM EDT us Tonya Dye SHIVAM CLINISYNC Final Result CLINISYNC TB * (ABNORMAL) ALL CBC WITH AUTO DIFF (04/02/2025 12:56 PM EDT) Pathologist [facility] TB WBC 8.4 4.0 - 11.0 10 3/uL TBH TBH RBC 5.32 4.70 - 6.10 10 6/uL TBH TBH HGB 16.5 14.0 - 18.0 g/dL TBH TBH HCT 49.5 42.0 - 54.0 % TBH TBH MCV 93.0 80.0 - 94.0 fL TBH TBH MCH 31.0 25.9 - 34.0 pg TBH TBH MCHC 33.3 29.9 - 35.2 g/dL TBH TBH RDW 13.2 11.0 - 15.0 % TBH TBH PLT 235 150 - 450 10 3/uL TBH TBH MPV 9.7 9.5 - 13.5 fL TBH NEUTROPHILS PERCENT AUTO 62.3 43.0 - 75.0 % TBH LYMPHOCYTES PERCENT AUTO 24.6 20.5 - 60.0 % TBH MONOCYTES PERCENT AUTO 9.8 1.7 - 12.0 % TBH TBH EO % 2.3 0.9 - 7.0 % TBH BASOPHILS PERCENT AUTO 0.5 0.2 - 2.0 % TBH IMMATURE GRANULOCYTES PCT AUTO 0.5 0.0 - 0.5 % TBH NEUTROPHILS ABSOLUTE AUTO 5.2 1.4 - 6.5 10 3/uL TBH LYMPHOCYTES ABSOLUTE AUTO 2.1 1.2 - 3.8 10 3/uL TBH MONOCYTES ABSOLUTE AUTO 0.8 0.3 - 0.8 10 3/uL TBH TBH EO # 0.2 0.0 - 0.7 10 3/uL TBH BASOPHILS ABSOLUTE AUTO 0.0 0.0 - 0.1 10 3/uL TBH IMMATURE GRANULOCYTES ABS AUTO 0.04(H) 0.00 - 0.03 10 3/uL TBH 04/02/2025 12:5 6 PM EDT 04/02/2025 12:57 PM EDT Narrative CLINISYNC - 04/02/2025 1:24 PM EDT Tonya Dye NP CLINISYNC Final Result Performing Organization Address [facility] de Phone Number CLINISYDC TB * (ABNORMAL) TBH UA (CLEAN/CATCH) MICROSCOPIC IF INDICATE (04/02/2025 12:48 PM EDT) COLOR URINE LT. YELLOW YELLOW TBH CLARITY URINE CLEAR CLEAR TBH SPECIFIC GRAVITY URINE 1.010 1.005 - 1.025 TBH PH URINE 6.0 5.0 - 9.0 TBH PROTEIN URINE NEGATIVE NEG/TRACE mg/dL TBH GLUCOSE URINE UA >=1000(A) NEGATIVE mg/dL TBH BILIRUBIN URINE NEGATIVE NEGATIVE TBH KETONES URINE NEGATIVE NEGATIVE mg/dL TBH BLOOD URINE NEGATIVE NEGATIVE TBH NITRITE URINE NEGATIVE NEGATIVE TBH UROBILINOGEN URINE 0.2 0.2 - 1.0 EU/dL TBH LEUKOCYTE ESTERASE URINE NEGATIVE NEGATIVE TBH URINE MICROSCOPIC INDICATED NO TBH 04/02/2025 12:4 8 PM EDT 04/02/2025 12:57 PM EDT Narrative CLINISYDC - 04/02/2025 2:40 PM EDT Tonya Dye NP CLINISYNC Final Result Performing Organization Address [facility] de Phone Number CLINISYDC TB * (ABNORMAL) TBH MICROALB CREAT RATIO RANDOM (04/02/2025 12:48 PM EDT) MICROALBUMIN URINE RANDOM 3.8 <=30.0 mg/dL TBH CREATININE URINE RANDOM 36.28 20.00 - 300.00 mg/dL TB MICROALBUM CREATININE RATIO UR 104.7(H) 0.0 - 29.9 mg/g TBH Comment: NO MICROALBUMINURIA 0-29 MG/G CLINICAL MICROALBUMINURIA 30-300 MG/G MACROALBUMINURIA >300 MG/G 04/02/2025 12:4 8 PM EDT 04/02/2025 12:57 PM EDT Narrative CLINISYNC - 04/02/2025 1:26 PM EDT us Tonya Dye NP CLINISYNC Final Result [facility] * ([facility]NORMAL) POCT glycosylated hemoglobin (Hb A1C) docked device (03/27/2025 2:37 PM EDT) Hemoglobin A1C 7.9 Blood Venous blood specimen / Unknown 03/27/2025 2:37 PM EDT us Tonya Dye NP POINT OF CARE TEST ENTER/EDIT O RDERABLES Final Result * SEGMENTAL BLOOD PRESSURE (02/03/2025 1:39 PM EDT) Anatomical Region Laterality Modality Radiographic Mary ging 02/03/2025 1:39 PM EDT Narrative 02/03/2025 10:03 [place] [address] Cardiology Report Signed Patient: TERRI LOWE MR#: [id number] : 1950 Acct:[id number] Age/Sex: 74 / M ADM Date: 02/03/25 Loc: CARD Attending Dr: Yaneli Howell M.D. Ordering Physician: Yaneli Howell M.D. Date of Service: 02/03/25 Procedure(s): CA segmental UE or LE AIMEE Accession Number(s): [id number] cc: Tonya Dye DAMAGE INSIDE ADJUSTER; Yaneli Howell M.D. [facility] Test Date: 2025-02-03 Pat Name: TERRI LOWE Department: Room: - Gender: Male Ice Cream Scooper: : 1950 Requested By: 1891 Order Number: [id number] Justin MD: TRAVON MOUKARBEL, M.D. Interpretive Statements Summary of the findings: [...] By: TRAVON CAMPBELL Signed By: 02/03/25220202/03/252202 DD/ 1339 TD/TT: Flight Software Test Engineer: Procedure Note Radiology, Radiologist, MD - 02/03/2025 [place] [address] Cardiology Report Signed Patient: TERRI LOWE R#: [id number] : 1950cct:[id number] Age/Sex: 74 / MADM Date: 02/03/25 Loc: CARD Attending Dr: Yaneli Howell M.D. Ordering Physician: Yaneli Howell M.D. Date of Service: 02/03/25 Procedure(s): CA segmental UE or LE AIMEE Accession Number(s): [id number] cc: Tonya Dye DAMAGE INSIDE ADJUSTER; Yaneli Howell M.D. [facility] Test Date: 2025-02-03 Pat Name: TERRI LOWE Department: Room: - Gender: Male Ice Cream Scooper: : 1950 Requested By: 1892 Order Number: [id number] Reading MD: TRAVON CAMPBELL M.D. Interpretive Statements [...] TRAVON CAMPBELL Signed By:02/03/25220202/03/252202 DD/ 1339 TD/TT: Flight Software Test Engineer: Generic External Data Provider IMG XR PROCEDURES Final Result from Last 3 Months Insurance MEDICARE GENERIC OTHER Care Teams Pit Crew Support Worker Relationship Specialty Start Date End Date Mumtaz Jensen MD [address] [place] [address] PCP - General Family Medicine 11/28/23 Tonya Dye NP [address] [place] [address] PCP - ACO Reach 11/22/24 Tonya Dye NP Referring Physician Nurse Practitioner 03/09/23
--- OUTSIDE RECORDS SUMMARY | 2025-04-08 14:01 | XMS_ITS | Encounter Summary ---
Author Organization [facility] [employer] [facility] tem Address [id number] [address] [place] [address] Care Team Providers Care Insecticide Expert Name Role Phone Tonya Dye ROLL LINE OPERATOR-BAND SAWMILL OPERATOR Primary Care Provider Encounter Details Date Type Department Care Team (Late st Contact Info) Description 02/03/2025 [facility] [address] [facility] [address] [place] [address] Marie Zambrano CMA Claudication; Cigarette smoker motivated [...] Info) Description 04/14/2025 10:30 AM EDT Appointment [facility] - Cardiovascular [address] [place] [address] Muna Persaud PA-C [address] [place] [address] 07/15/2025 1:15 PM EDT Office Visit [facility] Cardiology [address] [facility] [address] [place] [address] Tamara Rebolledo MD [address] [place] [address] 03/04/2026 2:15 PM EDT Appointment [facility] Vascular [address] [place] [address] Robyn Frazier, ROLL LINE OPERATOR-BAND SAWMILL OPERATOR [address] [place] [address] 03/04/2026 3:00 PM EDT Appointment [facility] Vascular [address] [facility] [address] Robyn Frazier, ROLL LINE OPERATOR-BAND SAWMILL OPERATOR [address] [facility], [address] [place] [address] 04/02/2026 11:50 AM EDT Office Visit [facility] [place] [address] Yaneli Howell MD [address], [facility] [address] [place] [address] documented as of this encounter Visit Diagnoses Diagnosis Claudication Unspecified peripheral vascular disease Cigarette smoker motivated to quit documented in this encounter Additional Health Concerns Assessment Noted Time A Body Mass Index follow-up plan has been documented for the patient 11/14/2019 2:01 PM EST documented as of this encounter Care Teams Insecticide Expert Relationship Specialty Start Date End Date Tonya Dye, ROLL LINE OPERATOR-BAND SAWMILL OPERATOR PCP - General Nurse Practitioner 09/07/21 documented as of this encounter
--- OUTSIDE RECORDS SUMMARY | 2025-04-08 14:01 | XMS_ITS | Encounter Summary ---
Author Organization [facility] Address [address] [place] [address] Care Team Providers Care Jumpbasting Machine Operator Name Role Phone Tonya Dye NUMERICAL CONTROL TOOL PROGRAMMER Unavailable [phone] Mumtaz Jensen MD Primary Care Provider Tonya Dye NUMERICAL CONTROL TOOL PROGRAMMER Unavailable [phone] Encounter Details Date Type Department Care Team (Late st Contact Info) Description 12/20/2023 External Result Encounter [facility] External Department Unsolicited Ranulfo Zavala, DO [address] [address] Social History Tobacco Use Types Packs/Day Years [...] Visit [facility] [address] [place] [address] Tonya Dye NP [address] [place] [address] 04/02/2026 11:00 AM EDT Office Visit [facility] [address] [place] [address] Tonya Dye, SHIVAM [address] [place] [address] documented as of this encounter Procedures Procedure Name Priority Date/Time Associated Diagnosis Comments ECG 12-LEAD 12/20/2023 9:29 AM EST documented in this encounter Results * ECG 12 lead (12/20/2023 9:29 AM EST) 12/20/2023 9:29 AM EST Narrative [facility] - 12/20/2023 7:44 PM EST [facility] Main [address] [address] Electrocardiograph Report Signed Patient: Darin Thacker MR#: [id number] : 1950 Acct:[id number] Age/Sex: 73 / M ADM Date: 12/20/23 Loc: Room: Type: [facility] Attending Dr: Ranulfo Zavala DO Ordering Provider: [...] When compared with ECG of 14-MAR-2021 10:14, WI interval has increased Vent. rate has decreased BY 43 BPM Nonspecific T wave abnormality now evident in Lateral leads Confirmed by Laurent Livingston ([id number]) on 12/20/2023 7:43:38 PM Referred By: YUDI Electronically Signed By:Laurent Livingston Transcribed By: MUS Signed By Laurent Livingston MD 12/20/231942 Procedure Note Jean-Paul Livingston MD - 12/21/2023 [facility] Main [address] [address] Electrocardiograph Report Signed Patient: Darin Thacker JMR#: [id number] : 1950cct:[id number] Age/Sex: 73 / MADM Date: 12/20/23 Loc: Room:Type: [facility] Attending Dr: Ranulfo Zavala DO Ordering Provider: [...] When compared with ECG of 14-MAR-2021 10:14, WI interval has increased Vent. rate has decreased BY 43 BPM Nonspecific T wave abnormality now evident in Lateral leads Confirmed by Laurent Livingston ([id number]) on 12/20/2023 7:43:38 PM Referred By: YUDI Electronically Signed By:Laurent Livingston Transcribed By: MUS Signed By Laurent Livingston MD 12/20/231942 us Ranulfo Zavala DO ECG ORDERABLES Final Result [address] [address], documented in this encounter Visit Diagnoses Not on filedocumented in this encounter Care Teams Jumpbasting Machine Operator Relationship Specialty Start Date End Date Mumtaz Jensen MD [address] [place] [address] PCP - General Family Medicine 11/28/23 Tonya Dye NP [address] [place] [address] PCP - ACO Reach 11/22/24 Tonya Dye NP Referring Physician Nurse Practitioner 03/09/23 documented as of this encounter
--- OUTSIDE RECORDS SUMMARY | 2025-04-08 14:01 | XMS_ITS | Encounter Summary ---
Author Organization [facility] EHR Sys tem Address [id number] [address] [place] [address] Care Team Providers Care Water Reuse Program Manager Name Role Phone Tonya Dye BOTTLE BLOWING MACHINE TENDER-OFFICE COPY SELECTOR Primary Care Provider Encounter Details Date Type Department Care Team (Late Contact Info) Description 02/20/2025 Orders Only [facility] [address] [place] [address] Dafne Jimenez CMA Claudication; PAD (peripheral artery [...] Info) Description 04/14/2025 10:30 AM EDT Appointment [facility] - Cardiovascular [address] [facility] [address] Muna Persaud PA-C [address] [place] [address] 07/15/2025 1:15 PM EDT Office Visit [facility] Cardiology [address] [facility] 1 [place] [address] Tamara Rebolledo MD [address] [place] [address] 03/04/2026 2:15 PM EDT Appointment [facility] - Vascular [address] [place] [address] Robyn Frazier, BOTTLE BLOWING MACHINE TENDER-OFFICE COPY SELECTOR [address], [address] [place] [address] 03/04/2026 3:00 PM EDT Appointment [facility] Vascular [address] [place] [address] Robyn Frazier, BOTTLE BLOWING MACHINE TENDER-OFFICE COPY SELECTOR [address], [address] [place] [address] 04/02/2026 11:50 AM EDT Office Visit [facility] [place] [address] Yaneli Howell MD [address] [facility], [facility] [address] [place] [address] documented as of this encounter Procedures Procedure [...] documented as of this encounter Care Teams Water Reuse Program Manager Relationship Specialty Start Date End Date Tonya Dye, RAFITA-OFFICE COPY SELECTOR PCP - General Nurse Practitioner 09/07/21 documented as of this encounter
--- OUTSIDE RECORDS SUMMARY | 2025-04-08 14:01 | XMS_ITS | Encounter Summary ---
Author Organization [facility] Address [id number] [address] [place] [address] Care Team Providers Care Department Store Salesperson Name Role Phone HardikTonya Gail LINE UP EXAMINER-ANALYSIS OR RESEARCH SAFETY INSPECTOR Primary Care Provider Encounter Details Date Type Department Care Team (Late st Contact Info) Description 02/25/2025 Telephone [facility] [address] [place] [address] Yaneli Howell MD [address], [facility] [address] [place] [address] Social History Tobacco Use Types Packs/Day Years [...] will call him with an update at [phone] Thank you. *Brad LUNA is out, sending to triage nurse instead * Telephone Encounter - Erika Palacios LPN - 02/25/2025 11:22 AM EDT Called pt and left a vmm that his carotid results from 08/2024 that shows minimal stenosis bilaterally. Patient may wait until his already scheduled appt for next year. * Telephone Encounter - Gretchen Jaffe - 02/25/2025 11:22 AM EDT Pt calling into chief writer to voice concerns about test results given. The results he's looking for arefrom a month ago and not 09/08. Please advise [phone] * Telephone Encounter - Erika Palacios LPN - 02/25/2025 11:22 AM EDT Drill Press Set Up Operator left patient a vmm to call the [...] Info) Description 04/14/2025 10:30 AM EDT Appointment [facility] - Cardiovascular [address] [place] [address] Muna Persaud PA-C [address] [place] [address] 07/15/2025 1:15 PM EDT Office Visit [facility] Cardiology [address] [facility] 1 [place] [address] Tamara Rebolledo MD [address] [place] [address] 03/04/2026 2:15 PM EDT Appointment [facility] Vascular [address] [place] [address] Robyn Frazier, LINE UP EXAMINER-ANALYSIS OR RESEARCH SAFETY INSPECTOR [address], [address] [place] [address] 03/04/2026 3:00 PM EDT Appointment [facility] Vascular [address] [place] [address] Robyn Frazier, LINE UP EXAMINER-ANALYSIS OR RESEARCH SAFETY INSPECTOR 9 [facility], [address] [place] [address] 04/02/2026 11:50 AM EDT Office Visit [facility] [place] [address] Yaneli Howell MD 2108 [facility], [facility] [address] [place] [address] documented as of this encounter Visit Diagnoses Not on filedocumented in this encounter Additional Health Concerns Assessment Noted Time A Body Mass Index follow-up plan has been documented for the patient 11/14/2019 2:01 PM EST documented as of this encounter Care Teams Department Store Salesperson Relationship Specialty Start Date End Date Tonya Dye APRN-ANALYSIS OR RESEARCH SAFETY INSPECTOR PCP - General Nurse Practitioner 09/07/21 documented as of this encounter
--- OUTSIDE RECORDS SUMMARY | 2025-04-08 14:01 | XMS_ITS | Encounter Summary ---
Author Organization [facility] tem Address [facility] [id number] [address] [place] [address] Care Team Providers Care Metal Sander Name Role Phone NeptaliTonya mercado Gail FILM PROCESSING SUPERVISOR-SHEET ROCK INSTALLER Primary Care Provider Encounter Details Date Type Department Care Team (Late st Contact Info) Description 03/27/2024 Orders Only [facility] Cardiology [address] [address] External, Scanning Provider Social History [...] Description 04/14/2025 10:30 AM EDT Appointment [facility] - Cardiovascular [address] [place] [address] Muna Persaud PA-C [address] [place] [address] 07/15/2025 1:15 PM EDT Office Visit [facility]iology [address] [place] [address] Tamara Rebolledo MD [address] [place] [address] 03/04/2026 2:15 PM EDT Appointment [facility] - Vascular [address] [place] [address] Robyn Frazier, FILM PROCESSING SUPERVISOR-SHEET ROCK INSTALLER [address], [address] [place] [address] 03/04/2026 3:00 PM EDT Appointment [facility] - Vascular [address] [place] [address] Robyn Frazier, FILM PROCESSING SUPERVISOR-SHEET ROCK INSTALLER [address], [address] [place] [address] 04/02/2026 11:50 AM EDT Office Visit [facility] [place] [address] Yaneli Howell MD [address] , [facility] [address] [place] [address] documented as of this encounter Procedures Procedure [...] ASSESSMENTS F inal Result Performing Organization Address [facility] de Phone Number MANUALLY TRANSCRIBED RESULTS * X-ray chest 2 views (03/27/2024 11:31 AM EDT) Anatomical Region Laterality Modality Body, Chest N/A Computed Radiogr aphy us Scanning Provider External IMG DIAGNOSTIC IMAGIN G ORDERABLES Final Result * ECG 12 lead (03/27/2024 11:30 AM EDT) us Scanning Provider External ECG ORDERABLES Final Result Performing Organization Address [facility] de Phone Number MANUALLY TRANSCRIBED RESULTS * Echo complete W/ contrast (03/27/2024 11:27 AM EDT) Anatomical Region Laterality Modality Chest N/A Ultrasound us Scanning Provider External CV ECHO ORDERABLES Fi nal Result * ECG 12 lead (03/27/2024 11:21 AM EDT) us Scanning Provider External ECG ORDERABLES Final Result Performing Organization Address [facility] Phone Number MANUALLY TRANSCRIBED RESULTS documented in this encounter Visit Diagnoses Not on filedocumented in this encounter Additional Health Concerns Assessment Noted Time A Body Mass Index follow-up plan has been documented for the patient 11/14/2019 2:01 PM EST documented as of this encounter Care Teams Metal Sander Relationship Specialty Start Date End Date Tonya Dye, FILM PROCESSING SUPERVISOR-SHEET ROCK INSTALLER PCP - General Nurse Practitioner 09/07/21 documented as of this encounter
--- OUTSIDE RECORDS SUMMARY | 2025-04-08 14:01 | XMS_ITS | Encounter Summary ---
Author Organization [facility] Address [id number] [address] [place] [address] Care Team Providers Care Wastewater Manager Name Role Phone Tonya Dye PUTTY MIXER-FAVOR MAKER Primary Care Provider Encounter Details Date Type Department Care Team (Late st Contact Info) Description 09/08/2021 Telephone [facility] [address] [place] [address] Shirin Howell MD [address], [facility] [address] [place] [address] Social History Tobacco Use Types Packs/Day Years [...] Info) Description 04/14/2025 10:30 AM EDT Appointment [facility] - Cardiovascular [address] [place] [address] Muna Persaud PA-C [address] [place] [address] 07/15/2025 1:15 PM EDT Office Visit [facility] Cardiology [address] [address] Tamara Rebolledo MD [address] [place] [address] 03/04/2026 2:15 PM EDT Appointment [facility] - Vascular [address] [place] [address] Robyn Frazier, PUTTY MIXER-FAVOR MAKER [address] [employer], [address] [place] [address] 03/04/2026 3:00 PM EDT Appointment [facility] Vascular [address] [place] [address] Robyn Frazier, PUTTY MIXER-FAVOR MAKER [address] [employer], [address] [place] [address] 04/02/2026 11:50 AM EDT Office Visit [facility] Vascular [place] [address] Yaneli Howell MD [address], [address] [address] documented as of this encounter Visit Diagnoses [...] documented as of this encounter Care Teams Wastewater Manager Relationship Specialty Start Date End Date Tonya Dye, RAFITA-FAVOR MAKER PCP - General Nurse Practitioner 09/07/21 documented as of this encounter
--- OUTSIDE RECORDS SUMMARY | 2025-04-08 14:01 | XMS_ITS | Encounter Summary ---
Author Organization [facility] Address [address] [place] [address] Care Team Providers Care Fisher Sponge Hooking Name Role Phone Mumtaz Jensen MD Primary Care Provider [phone] Tonya Dye BUTCHER OR SMALLGOODS MAKER Unavailable [phone] Mumtaz Jensen MD Primary Care Provider [phone] Tonya Dye NP Unavailable [phone] Encounter Details Date Type Department Care Team (Late st Contact Info) Description 11/26/2023 Abstract [facility] [address] [place] [address] Tonya Dye, BUTCHER OR SMALLGOODS MAKER [address] [place] [address] Social History Tobacco Use Types Packs/Day Years [...] [facility] [address] [place] [address] Tonya Dye, SHIVAM [address] [place] [address] 04/02/2026 11:00 AM EDT Office Visit [facility] [address] [place] [address] Tonya Dye, SHIVAM [address] [place] [address] documented as of this encounter Visit Diagnoses Not on filedocumented in this encounter Care Teams Fisher Sponge Hooking Relationship Specialty Start Date End Date Mumtaz Jensen MD PCP - General Family Medicine 10/16/22 11/27/23 Mumtaz Jensen MD [address] [place] [address] PCP - General Family Medicine 11/28/23 Tonya Dye NP [address] [place] [address] PCP - ACO Reach 11/22/24 Tonya Dye NP Referring Physician Nurse Practitioner 03/09/23 documented as of this encounter
--- OUTSIDE RECORDS SUMMARY | 2025-04-08 14:01 | XMS_ITS | Encounter Summary ---
Author Organization [facility] Address [address] [place] [address] Care Team Providers Care Edi Coordinator Name Role Phone Tonya Dye NP Unavailable [phone] Mumtaz Jensen MD Primary Care Provider Tonya Dye NP Unavailable [phone] Encounter Details Date Type Department Care Team (Late Contact Info) Description 04/08/2025 Bamboo flowsheet [facility] [address] [place] [address] Tonya Dye NP [address] [place] [address] Social History Tobacco Use Types Packs/Day Years [...] 06/30/2025 1:00 PM EDT Office Visit [facility] [address] [place] [address] Tonya Dye, SHIVAM [address] [place] [address] 04/02/2026 11:00 AM EDT Office Visit [facility] [address] [place] [address] Tonya Dye NP [address] [place] [address] documented as of this encounter Visit Diagnoses Not on filedocumented in this encounter Additional Health Concerns Assessment Noted Time PHQ-9 Depression Total Score: 3 03/27/20 25 2:22 PM EDT documented as of this encounter Care Teams Edi Coordinator Relationship Specialty Start Date End Date Mumtaz Jensen MD [address] [place] [address] PCP - General Family Medicine 11/28/23 Tonya Dye NP [address] [place] [address] PCP - ACO Reach 11/22/24 Tonya Dye NP Referring Physician Nurse Practitioner 03/09/23 documented as of this encounter
--- OUTSIDE RECORDS SUMMARY | 2025-04-08 14:01 | XMS_ITS | Encounter Summary ---
Author Organization [employer] s tem Address [facility] [id number] [address] [place] [address] Care Team Providers Care Procurement Coordinator Name Role Phone NeptaliTonya mercado Gail BILLING COORDINATOR-TRUSS DESIGNER Primary Care Provider Encounter Details Date Type Department Care Team (Late st Contact Info) Description 05/27/2021 Orders Only [facility] [address] [place] [address] Ref Prov, [place] [address] Social History Tobacco Use Types Packs/Day Years [...] Info) Description 04/14/2025 10:30 AM EDT Appointment [facility] - Cardiovascular [address] [place] [address] Muna Persaud PA-C [address] [place] [address] 07/15/2025 1:15 PM EDT Office Visit [facility] [address] [place] [address] Tamara Rebolledo MD [address] [place], [place] [address] 03/04/2026 2:15 PM EDT Appointment [facility] Vascular [address] [place] [address] Robyn Frazier, BILLING COORDINATOR-TRUSS DESIGNER [address] [employer] [employer], [address] [place] [address] 03/04/2026 3:00 PM EDT Appointment [facility] Vascular [address] [place] [address] Robyn Frazier, BILLING COORDINATOR-TRUSS DESIGNER [address] [employer] [facility], [address] [place] [address] 04/02/2026 11:50 AM EDT Office Visit [facility] [address] [place] [address] Yaneli Howell MD [address] [facility], [facility] [address] [place] [address] documented as of this encounter Procedures Procedure [...] documented as of this encounter Care Teams Procurement Coordinator Relationship Specialty Start Date End Date Tonya Dye, RAFITA-TRUSS DESIGNER PCP - General Nurse Practitioner 09/07/21 documented as of this encounter
--- OUTSIDE RECORDS SUMMARY | 2025-04-08 14:01 | XMS_ITS | Encounter Summary ---
Author Organization [facility] Address [address] [place] [address] Care Team Providers Care Boiler Operator Name Role Phone Tonya Dye CMO & PRESIDENT Unavailable [phone] Mumtaz Jensen MD Primary Care Provider Tonya Dye NP Unavailable [phone] Encounter Details Date Type Department Care Team (Late st Contact Info) Description 12/05/2023 Clinisync Result Encounter [facility] External Department Unsolicited Tonya Dye NP [address] [place] [address] Social History Tobacco Use Types Packs/Day [...] 06/30/2025 1:00 PM EDT [facility] [address] [place] [address] Tonya Dye NP [address] [place] [address] 04/02/2026 11:00 AM EDT Office Visit [facility] [address] [place] [address] Tonya Dye, SHIVAM [address] [place] [address] documented as of this encounter Procedures Procedure Name Priority Date/Time Associated Diagnosis Comments CT SINUS WO CON 12/05/2023 1:25 PM EST MLR HEMOGLOBIN A1C Routine 12/05/2023 1: 05 PM EST documented in this encounter Results * CT SINUS WO CON (12/05/2023 1:25 PM EST) Anatomical Region Laterality Modality Other 12/05/2023 1:25 PM EST Narrative 12/05/2023 1:28 [place] [address] CT Scan Report Signed Patient: TERRI LOWE MR#: [id number] : 1950 Acct:[id number] Age/Sex: 73 / M ADM Date: 12/05/23 Loc: CT Attending Dr: Tonya Dye NP Ordering Physician: Tonya Dye NP Date of Service: 12/05/23 Procedure(s): CT sinus wo con Accession Number(s): [id number] cc: Tonya Dye NP [address] [address] Patient Name: TERRI LOWE MRN: [id number] date: 1950 Sex: M Assigned Patient Location: CT Current Patient Location: CT Accession/Order Number: [id number] Exam Date: 12/05/2023 12:53 Report Date: 12/05/2023 [...] Signed By: 12/05/23 1328 DD/ 1325 TD/TT: Color Paste Mixer: Procedure Note Radiology, Radiologist, MD - 12/05/2023 [place] [address] CT Scan Report Signed Patient: TERRI LOWE JMR#: [id number] : 1950cct:[id number] Age/Sex: 73 / MADM Date: 12/05/23 Loc: CT Attending Dr: Tonya Dye NP Ordering Physician: Tonya Dye NP Date of Service: 12/05/23 Procedure(s): CT sinus wo con Accession Number(s): [id number] cc: Tonya Dye NP [facility] [place] [id number] Patient Name: TERRI LOWE MRN: [facility]:[id number] date: 1950 Sex: M Assigned Patient Location: CT Current Patient Location: CT Accession/Order Number: [id number] Exam Date: 12/05/2023 12:53 Report Date: 12/05/2023 [...] M.D. Signed By:12/05/23 1328 DD/ 1325 TD/TT: Color Paste Mixer: us Tonya Dye NP [facility] Final [...] us Tonya Dye NP [facility] documented in this encounter Visit Diagnoses Not on filedocumented in this encounter Care Teams Boiler Operator Relationship Specialty Start Date End Date Mumtaz Jensen MD [address] [place] [address] PCP - General Family Medicine 11/28/23 Tonya Dye NP [address] [place] [address] PCP - ACO Reach 11/22/24 Tonya Dye NP Referring Physician Nurse Practitioner 03/09/23 documented as of this encounter
--- OUTSIDE RECORDS SUMMARY | 2025-04-08 14:01 | XMS_ITS | Encounter Summary ---
Author Organization [facility] Address [address] [place] [address] Care Team Providers Care Sale Professional Digital Marketing Name Role Phone Mumtaz Jensen MD Primary Care Provider [phone] Tonya Dye NP Unavailable [phone] Mumtaz Jensen MD Primary Care Provider [phone] Tonya Dye NP Unavailable [phone] Reason for Referral * Consultation (Routine) - Closed Specialty Diagnoses / Procedures Referred By Shaye francisco Referred To Contact Orthopaedic Surgery Diagnoses Bilateral hand pain Tonya Dye NP [address] [place] [address] Phone: tel: fax: Shen Luis MD Phone: tel: fax: Referral ID Status Reason Start Date Expiration Date V isits Requested Visits Authorized [id number] Closed Specialty Services Required 09/26/2023 03/24/2024 1 1 Encounter Details Date Type Department Care Team (Late st Contact Info) Description 09/26/2023 Orders Only [facility] [address] [place] [address] Tonya Dye NP [address] [place] [address] Bilateral hand pain Social History Tobacco [...] 06/30/2025 1:00 PM EDT Office Visit [facility] [address] [place] [address] Tonya Dye NP [address] [place] [address] 04/02/2026 11:00 AM EDT Office Visit [facility] [address] [place] [address] Tonya Dye NP [address] [place] [address] Scheduled Referrals Name Type Priority Associated Diagnoses Order Schedule Ambulatory referral to Orthopaedic Surgery Outpatient Referral Routine Bilateral hand pain Expected: 09/26/2023 (Approximate), Expires: 03/27/2024 documented as of this encounter Visit Diagnoses Diagnosis Bilateral hand pain documented in this encounter Care Teams Sale Professional Digital Marketing Relationship Specialty Start Date End Date Mumtaz Jensen MD PCP - General Family Medicine 10/16/22 11/27/23 Mumtaz Jensen MD [address] [place] [address] PCP - General Family Medicine 11/28/23 Tonya Dye NP [address] [facility] [place] [address] PCP - ACO Reach 11/22/24 Tonya Dye NP Referring Physician Nurse Practitioner 03/09/23 documented as of this encounter
--- OUTSIDE RECORDS SUMMARY | 2025-04-08 14:02 | XMS_ITS | Encounter Summary ---
Author Organization [facility] Address [address] [place] [address] Care Team Providers Care Proof Coin Collector Name Role Phone Mumtaz Jensen MD Primary Care Provider [phone] Tonya Dye NP Unavailable [phone] Mumtaz Jensen MD Primary Care Provider [phone] Tonya Dye NP Unavailable [phone] Encounter Details Date Type Department Care Team (Late st Contact Info) Description 03/26/2023 Abstract [facility] [address] [facility] [address] [place] [address] Sky Serna, AGGIE 112 [facility] 150 [place] [address] Social History Tobacco Use Types Packs/Day Years [...] 06/30/2025 1:00 PM EDT [facility] [address] [place] [address] Tonya Dye, SHIVAM [address] [place] [address] 04/02/2026 11:00 AM EDT Office Visit [facility] [address] [place] [address] Tonya Dye, SHIVAM [address] [place] [address] documented as of this encounter Visit Diagnoses Not on filedocumented in this encounter Care Teams Proof Coin Collector Relationship Specialty Start Date End Date Mumtaz Jensen MD PCP - General Family Medicine 10/16/22 11/27/23 Mumtaz Jensen MD [address] [place] [address] PCP - General Family Medicine 11/28/23 Tonya Dye NP [address] [place] [address] PCP - ACO Reach 11/22/24 Tonya Dye NP Referring Physician Nurse Practitioner 03/09/23 documented as of this encounter
--- OUTSIDE RECORDS SUMMARY | 2025-04-08 14:02 | XMS_ITS | Encounter Summary ---
Author Organization [facility] tem Address [id number] [address] [place] [address] Care Team Providers Care Motion Picture Projectionist Name Role Phone NeptaliTonya mercado Gail PUT IN BEAT ADJUSTER-SENIOR OCCUPATIONAL THERAPIST Primary Care Provider Encounter Details Date Type Department Care Team (Late st Contact Info) Description 12/20/2022 Orders Only [facility] Cardiology [address] [place] [phone] External, Scanning Provider Social History Tobacco Use [...] Info) Description 04/14/2025 10:30 AM EDT Appointment [facility] - Cardiovascular [address] [place] [address] Muna Persaud PA-C [address] [place] [address] 07/15/2025 1:15 PM EDT [facility] [address] [facility] [address] [place] [address] Tamara Rebolledo MD [address] [place] [address] 03/04/2026 2:15 PM EDT Appointment [facility] Vascular [address] [place] [address] Robyn Frazier, PUT IN BEAT ADJUSTER-SENIOR OCCUPATIONAL THERAPIST [address] [employer] [facility], [address] [place] [address] 03/04/2026 3:00 PM EDT Appointment [facility] Vascular [address] [place] [address] Robyn Frazier, PUT IN BEAT ADJUSTER-SENIOR OCCUPATIONAL THERAPIST [address] [employer] [facility], [address] [place] [address] 04/02/2026 11:50 AM EDT Office Visit [facility] [address] [place] [address] Yaneli Howell MD [address] COUNTS INCLUDE 234 BEDS AT THE [facility], [facility] [address] [place] [address] documented as of this encounter Visit Diagnoses Not on filedocumented in this encounter Additional Health Concerns Assessment Noted Time A Body Mass Index follow-up plan has been documented for the patient 11/14/2019 2:01 PM EST documented as of this encounter Care Teams Motion Picture Projectionist Relationship Specialty Start Date End Date Tonya Dye, PUT IN BEAT ADJUSTER-SENIOR OCCUPATIONAL THERAPIST PCP - General Nurse Practitioner 09/07/21 documented as of this encounter
--- OUTSIDE RECORDS SUMMARY | 2025-04-08 14:02 | XMS_ITS | Encounter Summary ---
Author Organization [facility] Address [address] [place] [address] Care Team Providers Care Cashier Credit Name Role Phone Tonya Dye NP Unavailable [phone] Mumtaz Jensen MD Primary Care Provider [phone] Tonya Dye NP Unavailable [phone] Encounter Details Date Type Department Care Team (Late st Contact Info) Description 07/08/2024 Orders Only [facility] [address] [place] [address] Tonya Dye NP [address] [place] [address] Social History Tobacco Use Types Packs/Day Years [...] 06/30/2025 1:00 PM EDT Office Visit [facility] [address] [place] [address] Tonya Dye NP [address] [place] [address] 04/02/2026 11:00 AM EDT Office Visit [facility] [address] [place] [address] Tonya Dye NP [address] [place] [address] documented as of this encounter Procedures Procedure Name Priority Date/Time Associated Diagnosis Comments SCANNED LABS Routine 07/08/2024 1:55 PM EDT documented in this encounter Results * SCANNED LABS (07/08/2024 1:55 PM EDT) Tonya Dye SALVAGE CLERK LAB CHG PERFORMABLES Final Resu lt documented in this encounter Visit Diagnoses Not on filedocumented in this encounter Additional Health Concerns Assessment Noted Time PHQ-9 Depression Total Score: 3 02/27/20 24 11:39 AM EDT documented as of this encounter Care Teams Cashier Credit Relationship Specialty Start Date End Date Mumtaz Jensen MD [address] [place] [address] PCP - General Family Medicine 11/28/23 Tonya Dye NP [address] [place] [address] PCP - ACO Reach 11/22/24 Tonya Dye NP Referring Physician Nurse Practitioner 03/09/23 documented as of this encounter
--- OUTSIDE RECORDS SUMMARY | 2025-04-08 14:02 | XMS_ITS | Encounter Summary ---
Author Organization [facility] [employer] [facility] tem Address [id number] [address] [place] [address] Care Team Providers Care Operations Label Clerk Name Role Phone NeptaliTonya mercado Gail DRAPERY SEAMSTRESS-MANAGER GROUP Primary Care Provider Encounter Details Date Type Department Care Team (Late st Contact Info) Description 12/07/2021 [facility] Only [facility] [address] [place] [address] Ref Prov, [place] [address] Social History Tobacco Use Types Packs/Day Years [...] Info) Description 04/14/2025 10:30 AM EDT Appointment [facility] - Cardiovascular [address] [place] [address] Muna Persaud PA-C [address] [place] [address] 07/15/2025 1:15 PM EDT Office Visit [facility] Cardiology [address] [place] [address] Tamara Rebolledo MD [address] [place] [address] 03/04/2026 2:15 PM EDT Appointment [facility] Vascular [address] [place] [address] Robyn Frazier, DRAPERY SEAMSTRESS-MANAGER GROUP [address] [employer] [facility], [address] [place] [address] 03/04/2026 3:00 PM EDT Appointment [facility] - Vascular [address] [facility] [address] Robyn Frazier, DRAPERY SEAMSTRESS-MANAGER GROUP [address] [employer], [address] [place] [address] 04/02/2026 11:50 AM EDT Office Visit [facility] [address] [place] [address] Yaneli Howell MD [address] [facility] [address] [place] [address] documented as of this encounter Procedures Procedure [...] documented as of this encounter Care Teams Operations Label Clerk Relationship Specialty Start Date End Date Tonya Dye, RAFITA-MANAGER GROUP PCP - General Nurse Practitioner 09/07/21 documented as of this encounter
--- OUTSIDE RECORDS SUMMARY | 2025-04-08 14:02 | XMS_ITS | Encounter Summary ---
Author Organization [facility] Address [address] [place] [address] Care Team Providers Care Laboratory Animal Caretaker Name Role Phone Tonya Dye ISO COORDINATOR Unavailable [phone] Mumtaz Jensen MD Primary Care Provider Tonya Dye ISO COORDINATOR Unavailable [phone] Encounter Details Date Type Department Care Team (Late st Contact Info) Description 02/05/2024 Abstract [facility] [address] [place] [address] Sofia Hernandez MA Social History Tobacco Use [...] Visit [facility] [address] [place] [address] Tonya Dye NP [address] [place] [address] 04/02/2026 11:00 AM EDT Office Visit [facility] [address] [place] [address] Tonya Dye NP [address] [place] [address] documented as of this encounter Visit Diagnoses Not on filedocumented in this encounter Care Teams Laboratory Animal Caretaker Relationship Specialty Start Date End Date Mumtaz Jensen MD [address] [place] [address] PCP - General Family Medicine 11/28/23 Tonya Dye NP [address] [place] [address] PCP - ACO Reach 11/22/24 Tonya Dye NP Referring Physician Nurse Practitioner 03/09/23 documented as of this encounter
--- OUTSIDE RECORDS SUMMARY | 2025-04-08 14:02 | XMS_ITS | Encounter Summary ---
Author Organization [facility] Address [address] [place] [address] Care Team Providers Care Tree Shear Operator Name Role Phone Tonya Dye NP Unavailable [phone] Mumtaz Jensen MD Primary Care Provider Tonya Dye NP Unavailable [phone] Encounter Details Date Type Department Care Team (Late st Contact Info) Description 12/21/2023 Orders Only [facility] [address] [place] [address] Tonya Dye NP [address] [place] [address] Social History Tobacco Use Types Packs/Day Years [...] Visit [facility] [address] [place] [address] Tonya Dye NP [address] [place] [address] 04/02/2026 11:00 AM EDT Office Visit [facility] [address] [place] [address] Tonya Dye NP [address] [place] [address] documented as of this encounter Procedures Procedure Name Priority Date/Time Associated Diagnosis Comments MISCELLANEOUS LAB TEST Routine 12/20/2023 8:15 AM EST MISCELLANEOUS LAB TEST Routine 12/20/2023 8:11 AM EST documented in this encounter Results * - Miscellaneous Test (12/20/2023 8:15 AM EST) Tonya Dye NP LAB BLOOD ORDERABLES Final Resu lt * - Miscellaneous Test (12/20/2023 8:11 AM EST) Tonya Dye SIGHTER LAB BLOOD ORDERABLES Final Resu lt documented in this encounter Visit Diagnoses Not on filedocumented in this encounter Care Teams Tree Shear Operator Relationship Specialty Start Date End Date Mumtaz Jensen MD [address] [place] [address] PCP - General Family Medicine 11/28/23 Tonya Dye NP [address] [place] [address] PCP - ACO Reach 11/22/24 Tonya Dye NP Referring Physician Nurse Practitioner 03/09/23 documented as of this encounter
--- OUTSIDE RECORDS SUMMARY | 2025-04-08 14:02 | XMS_ITS | Encounter Summary ---
Author Organization [facility] Address [address] [place] [address] Care Team Providers Care Medical Coding Specialist Name Role Phone Tonya Dye ACCOUNTING TEACHER Unavailable [phone] Mumtaz Jensen MD Primary Care Provider Tonya Dye NP Unavailable [phone] Encounter Details Date Type Department Care Team (Late st Contact Info) Description 08/22/2024 Clinisync Result Encounter [facility] External Department Unsolicited Tonya Dye NP [address] [place] [address] Social History Tobacco Use Types Packs/Day [...] 06/30/2025 1:00 PM EDT [facility] [address] [place] [address] Tonya Dye NP [address] [place] [address] 04/02/2026 11:00 AM EDT Office Visit [facility] [address] [place] [address] Tonya Dye NP [address] [place] [address] documented as of this encounter Procedures Procedure Name Priority Date/Time Associated Diagnosis Comments VASC US CAROTID ARTERY DUPLEX BILATERAL 08/22/2024 5:23 PM EST documented in this encounter Results * Vascular US carotid artery duplex bilateral (08/22/2024 5:23 PM EST) Anatomical Region Laterality Modality Neck Ultrasound 08/22/2024 5:23 PM EST Narrative 08/22/2024 5:26 [place] [address] Ultrasound Report Signed Patient: TERRI LOWE MR#: [id number] : 1950 Acct:[id number] Age/Sex: 74 / M ADM Date: 08/22/24 Loc: US Attending Dr: Tonya Dye NP Ordering Physician: Tonya Dye NP Date of Service: 08/22/24 Procedure(s): US carotid duplex BI Accession Number(s): [id number] cc: Tonya Dye NP [address] [address] Patient Name: TERRI LOWE MRN: [id number] date: 1950 Sex: M Assigned Patient Location: US Current Patient Location: US Accession/Order Number: [id number] Exam Date: 08/22/2024 14:05 Report Date: 08/22/2024 [...] standard protocol. ICA-CCA ratios are calculated with member service representative peak-systolic velocities and recorded. Vertebral arteries [...] M.D. Signed By: 08/22/241725 DD/ 22 TD/TT: Buffer Machine: Procedure Note Radiology, Radiologist, MD - 08/22/[address] [address] Ultrasound Report Signed Patient: TERRI LOWE R#: [id number] : 1950cct:[id number] Age/Sex: 74 / MADM Date: 08/22/24 Loc: US Attending Dr: Tonya Dye NP Ordering Physician: Tonya Dye NP Date of Service: 08/22/24 Procedure(s): US carotid duplex BI Accession Number(s): [id number] cc: Tonya Dye NP The [address] [address] Patient Name: TERRI LOWE MRN: [id number] date: 1950 Sex: M Assigned Patient Location: US Current Patient Location: US Accession/Order Number: [id number] Exam Date: 08/22/2024 14:05 Report Date: 08/22/2024 [...] standard protocol. ICA-CCA ratios are calculated with member service representative peak-systolic velocities and recorded. Vertebral arteries [...] M.D. Signed By:08/22/24 1726 DD/ 22 TD/TT: Buffer Machine: us Tonya Dye ACCOUNTING TEACHER IMG US PROCEDURES Final Result documented in this encounter Visit Diagnoses Not on filedocumented in this encounter Additional Health Concerns Assessment Noted Time PHQ-9 Depression Total Score: 3 02/27/20 24 11:39 AM EDT documented as of this encounter Care Teams Medical Coding Specialist Relationship Specialty Start Date End Date Mumtaz Jensen MD [address] [place] [address] PCP - General Family Medicine 11/28/23 Tonya Dye NP [address] [place] [address] PCP - ACO Reach 11/22/24 Tonya Dye NP Referring Physician Nurse Practitioner 03/09/23 documented as of this encounter
--- OUTSIDE RECORDS SUMMARY | 2025-04-08 14:02 | XMS_ITS | Encounter Summary ---
Author Organization [facility] Address [address] [place] [address] Care Team Providers Care Outsole Cementer Name Role Phone Tonya Dye NP Unavailable [phone] Mumtaz Jensen MD Primary Care Provider Tonya Dye FLEET DISPATCH MANAGER Unavailable [phone] Reason for Visit * Reason Comments Med Refill Encounter Details Date Type Department Care Team (Late Contact Info) Description 05/22/2024 Refill [facility] [address] [place] [address] Tonya Dye, FLEET DISPATCH MANAGER [address] [place] [address] Social History Tobacco Use Types Packs/Day Years [...] 06/30/2025 1:00 PM EDT Office Visit [facility] [address] [place] [address] Tonya Dye, SHIVAM [address] [place] [address] 04/02/2026 11:00 AM EDT Office Visit [facility] [address] [place] [address] Tonya Dye, SHIVAM [address] [place] [address] documented as of this encounter Visit Diagnoses Not on filedocumented in this encounter Additional Health Concerns Assessment Noted Time PHQ-9 Depression Total Score: 3 02/27/20 24 11:39 AM EDT documented as of this encounter Care Teams Outsole Cementer Relationship Specialty Start Date End Date Mumtaz Jensen MD [address] [place] [address] PCP - General Family Medicine 11/28/23 Tonya Dye NP [address] [place] [address] PCP - ACO Reach 11/22/24 Tonya Dye NP Referring Physician Nurse Practitioner 03/09/23 documented as of this encounter
--- OUTSIDE RECORDS SUMMARY | 2025-04-08 14:02 | XMS_ITS | Encounter Summary ---
Author Organization [facility] Address [address] [place] [address] Care Team Providers Care Applied Exercise Physiologist Name Role Phone Tonya Dye AIRPORT SKILLED MAINTENANCE SUPERVISOR Unavailable [phone] Mumtaz Jensen MD Primary Care Provider Tonya Dye AIRPORT SKILLED MAINTENANCE SUPERVISOR Unavailable [phone] Encounter Details Date Type Department Care Team (Late st Contact Info) Description 02/05/2024 Clinisync Result Encounter [facility] External Department Unsolicited Citlaly Aceves MD [address] [place], [place] [address] Social History Tobacco Use Types Packs/Day Years [...] Visit [facility] [address] [place] [address] Tonya Dye NP [address] [place] [address] 04/02/2026 11:00 AM EDT Office Visit [facility] [address] [place] [address] Tonya Dye NP [address] [place] [address] documented as of this encounter Procedures Procedure Name Priority Date/Time Associated Diagnosis Comments MRI HEAD/BRAIN WO/W CONTR 02/05/2024 4:48 PM EDT documented in this encounter Results * MRI HEAD/BRAIN WO/W CONTR (02/05/2024 4:48 PM EDT) Anatomical Region Laterality Modality Radiographic Mary ging 02/05/2024 4:48 PM EDT Narrative 02/05/2024 4:51 [place] [address] Magnetic Resonance Report Signed Patient: TERRI LOWE MR#: [id number] : 1950 Acct:[id number] Age/Sex: 73 / M ADM Date: 02/05/24 Loc: LAB Attending Dr: Citlaly Aceves M.D. Ordering Physician: Citlaly Aceves M.D. Date of Service: 02/05/24 Procedure(s): MR head/brain wo/w con Accession Number(s): [id number] cc: Tonya Dye AIRPORT SKILLED MAINTENANCE SUPERVISOR; Citlaly Aceves M.D. The [address] [address] Patient Name: TERRI LOWE MRN: [id number] date: 1950 Sex: M Assigned Patient Location: LAB Current Patient Location: LAB Accession/Order Number: [id number] Exam Date: 02/05/2024 15:00 Report Date: 02/05/2024 [...] Signed By: 02/05/24 165 DD/ 47 TD/TT: Production Operations Engineer: Procedure Note Radiology, Radiologist, MD - 02/05/2024 [place] [address] Magnetic Resonance Report Signed Patient: TERRI LOWE R#: [id number] : 1950cct:[id number] Age/Sex: 73 / MADM Date: 02/05/24 Loc: LAB Attending Dr: Citlaly Aceves M.D. Ordering Physician: Citlaly Aceves M.D. Date of Service: 02/05/24 Procedure(s): MR head/brain wo/w con Accession Number(s): [id number] cc: Tonya Dye AIRPORT SKILLED MAINTENANCE SUPERVISOR; Citlaly Aceves M.D. The [place] [address] Patient Name: TERRI LOWE MRN: [facility]:[id number] date: 1950 Sex: M Assigned Patient Location: LAB Current Patient Location: LAB Accession/Order Number: [id number] Exam Date: 02/05/2024 15:00 Report Date: 02/05/2024 [...] Anthony M.D. Signed By:02/05/241650 DD/ 47 TD/TT: Production Operations Engineer: us Citlaly Aceves MD IMG XR PROCEDURES Final Resul t documented in this encounter Visit Diagnoses Not on filedocumented in this encounter Care Teams Applied Exercise Physiologist Relationship Specialty Start Date End Date Mumtaz Jensen MD [address] [place] [address] PCP - General Family Medicine 11/28/23 Tonya Dye NP [address] [place] [address] PCP - ACO Reach 11/22/24 Tonya Dye NP Referring Physician Nurse Practitioner 03/09/23 documented as of this encounter
--- OUTSIDE RECORDS SUMMARY | 2025-04-08 14:02 | XMS_ITS | Encounter Summary ---
Author Organization [facility] Address [address] [place] [address] Care Team Providers Care Sewing Inspector Name Role Phone Tonya Dye HOSIERY MATER Unavailable [phone] Mumtaz Jensen MD Primary Care Provider [phone] Tonya Dye HOSIERY MATER Unavailable [phone] Encounter Details Date Type Department Care [...] Visit [facility] [address] [place] [address] Tonya Dye, HOSIERY MATER [address] [place] [address] 04/02/2026 11:00 AM EDT Office Visit [facility] [address] [place] [address] Tonya Dye NP [address] [place] [address] documented as of this encounter Procedures Procedure Name Priority Date/Time Associated Diagnosis Comments SEGMENTAL BLOOD PRESSURE 01/23/2024 2:35 PM EDT documented in this encounter Results * SEGMENTAL BLOOD PRESSURE (01/23/2024 2:35 PM EDT) Anatomical Region Laterality Modality Radiographic Mary ging 01/23/2024 2:35 PM EDT Narrative 01/23/2024 11:21 PM EDT [address] [address] Cardiology Report Signed Patient: TERRI LOWE MR#: [id number] : 1950 Acct:[id number] Age/Sex: 73 / M ADM Date: 01/23/24 Loc: CARD Attending Dr: OMID RICKS Ordering Physician: OMDI RICKS Date of Service: 01/23/24 Procedure(s): CA segmental UE or LE AIMEE Accession Number(s): [id number] cc: OMID RICKS ; Tonya Dye NP [facility] Test Date: 2024-01-23 Pat Name: TERRI LOWE Department: Room: - Gender: Male Weatherseal Technician: : 1950 Requested By: OMID RICKS Order Number: [id number] Reading MD: HARRISON GODDARD Interpretive Statements Monophasic [...] D.O. Signed By: 01/23/24232001/23/242320 DD/ 1435 TD/TT: Wire Brusher: Procedure Note Radiology, Radiologist, - 01/23/2024 [place] [address] Cardiology Report Signed Patient: TERRI LOWE JMR#: [id number] : 1950cct:[id number] Age/Sex: 73 / MADM Date: 01/23/24 Loc: CARD Attending Dr: OMID RICKS Ordering Physician: OMID RICKS Date of Service: 01/23/24 Procedure(s): CA segmental UE or LE AIMEE Accession Number(s): [id number] cc: OMID RICKS ; Tonya Dye NP The [facility] Test Date: 2024-01-23 Pat Name: TERRI LOWE Department: Room: - Gender: Male Weatherseal Technician: : 1950 Requested By: OMID RICKS Order Number: [id number] Reading MD: HARRISON GODDARD Interpretive Statements Monophasic [...] Goddard D.O. Signed By:01/23/24232001/23/242320 DD/ 1435 TD/TT: Wire Brusher: us Generic External Data Provider IMG XR PROCEDURES Final Result documented in this encounter Visit Diagnoses Not on filedocumented in this encounter Care Teams Sewing Inspector Relationship Specialty Start Date End Date Mumtaz Jensen MD [address] [place] [address] PCP - General Family Medicine 11/28/23 Tonya Dye NP [address] [place] [address] PCP - ACO Reach 11/22/24 Tonya Dye NP Referring Physician Nurse Practitioner 03/09/23 documented as of this encounter
--- OUTSIDE RECORDS SUMMARY | 2025-04-08 14:02 | XMS_ITS | Encounter Summary ---
Author Organization [facility] Address [address] [place] [address] Care Team Providers Care Tax Record Clerk Name Role Phone Mumtaz Jensen MD Primary Care Provider [phone] Tonya Dye NP Unavailable [phone] Mumtaz Jensen MD Primary Care Provider [phone] Tonya Dye NP Unavailable [phone] Encounter Details Date Type Department Care Team (Late st Contact Info) Description 05/22/2023 Abstract [facility] 112 [facility] [address] [place] [address] Sky Serna, AGGIE 112 [facility] [address] [place] [address] Social History Tobacco Use Types Packs/Day Years [...] [facility] [address] [place] [address] Tonya Dye, SHIVAM [address] [place] [address] 04/02/2026 11:00 AM EDT Office Visit [facility] [address] [place] [address] Tonya Dye NP [address] [place] [address] documented as of this encounter Visit Diagnoses Not on filedocumented in this encounter Care Teams Tax Record Clerk Relationship Specialty Start Date End Date Mumtaz Jensen MD PCP - General Family Medicine 10/16/22 11/27/23 Mumtaz Jensen MD [address] [place] [address] PCP - General Family Medicine 11/28/23 Tonya Dye NP [address] [place] [address] PCP - ACO Reach 11/22/24 Tonya Dye NP Referring Physician Nurse Practitioner 03/09/23 documented as of this encounter
--- OUTSIDE RECORDS SUMMARY | 2025-04-08 14:02 | XMS_ITS | Encounter Summary ---
Author Organization [facility] Address [address] [place] [address] Care Team Providers Care Comparator Operator Name Role Phone Tonya Dye WELT RANDER Unavailable [phone] Mumtaz Jensen MD Primary Care Provider [phone] Tonya Dye NP Unavailable [phone] Encounter Details Date Type Department Care Team (Late st Contact Info) Description 04/02/2025 Clinisync Result Encounter [facility] External Department Unsolicited Tonya Dye NP [address] [place] [address] Social History Tobacco Use Types Packs/Day [...] 06/30/2025 1:00 PM EDT [facility] [address] [place] [phone] Tonya Dye NP [address] [place] [address] 04/02/2026 11:00 AM EDT Office Visit [facility] [address] [place] [address] Tonya Dye NP [address] [place] [address] documented as of this encounter Procedures Procedure Name Priority Date/Time Associated Diagnosis Comments SRMCOH PROSTATE SPECIFIC ANTIGEN SCRN Routine 04/02/2025 12:56 PM EDT [facility] CMP (CMP) (FOR REMOTE [facility] USE) Routine 04/02/2025 12:56 PM EDT ALL LIPID PROFILE (FASTING) Routine 04/02/2025 12:56 PM EDT ALL CBC WITH AUTO DIFF Routine 04/02/2025 12:56 PM EDT [facility] UA (CLEAN/CATCH) MICROSCOPIC IF INDICATE Routine 04/02/2025 12:48 PM EDT [facility] MICROALB CREAT RATIO RANDOM Routine 04/02/2025 12:48 PM EDT documented in this encounter Results * SRMCOH PROSTATE SPECIFIC ANTIGEN SCRN (04/02/2025 12:56 PM EDT) Pathologist [facility] PROSTATE SPECIFIC ANTIGEN SCRN 0.47 <=4.00 ng/mL [facility] 04/02/2025 12:5 6 PM EDT 04/02/2025 12:57 PM EDT Narrative CLINISYNC - 04/02/2025 2:20 PM EDT us Tonya Dye NP CLINISYNC Final Result [facility]INIS[facility]NC [facility] * (ABNORMAL) ALL LIPID PROFILE (FASTING) (04/02/2025 12:56 PM EDT) TRIGLYCERIDES 207(H) <=150 mg/dL [facility] CHOLESTEROL 158 <=200 mg/dL [facility] HDL CHOLESTEROL 41 40 - 60 mg/dL [facility] Comment: > or =60 mg/dl - LOW [...] Tonya Dye NP CLINISYNC Final Result CLINISYNC [facility] * (ABNORMAL) [facility] CMP (CMP) (FOR REMOTE [facility] USE) (04/02/2025 12:56 PM EDT) SODIUM 137 136 - 145 mmol/L [facility] POTASSIUM 4.4 3.5 - 5.1 mmol/L [facility] CHLORIDE 101 98 - 107 mmol/L TBH CARBON DIOXIDE 29.0 21.0 - 32.0 mmol/L [facility] ANION GAP 11.4 TBH GLUCOSE 127(H) 74 - 106 mg/dL [facility] BLOOD UREA NITROGEN 15.0 7.0 - 18.0 mg/dL [facility] CREATININE 0.65(L) 0.70 - 1.30 mg/dL TBH TBH EGFR-AF DUTCH >60 >=60 mL/min/1. 73m 2 TBH TBH EGFR-NON AF DUTCH >60 >=60 mL/min/1. 73m 2 TBH BUN [...] Tonya Dye NP CLINISYNC Final Result CL[facility]ISYNC [facility] * (ABNORMAL) ALL CBC WITH AUTO DIFF (04/02/2025 12:56 PM EDT) TB WBC 8.4 4.0 - 11.0 10 3/uL TBH TB RBC 5.32 4.70 - 6.10 10 6/uL TBH TB HGB 16.5 14.0 - 18.0 g/dL TB TB HCT 49.5 42.0 - 54.0 % TBH TB MCV 93.0 80.0 - 94.0 fL TBH TB MCH 31.0 25.9 - 34.0 pg TBH TB MCHC 33.3 29.9 - 35.2 g/dL TB TB RDW 13.2 11.0 - 15.0 % TBH [...] NP CLINISYNC Final Result Performing Organization Address [facility] Co de Phone Number CLINISYNC [facility] * (ABNORMAL) [facility] UA (CLEAN/CATCH) MICROSCOPIC IF [...] 12:57 PM EDT Narrative CLINISYNC - 04/02/2025 2:40 PM EDT Tonya Dye NP CLINISYNC Final Result Performing Organization Address City/[facility]/ZIP Co de Phone Number CLINISYNC [facility] * (ABNORMAL) [facility]H MICROALB CREAT RATIO RANDOM (04/02/2025 12:48 PM EDT) MICROALBUMIN URINE RANDOM 3.8 <=30.0 mg/dL TBH CREATININE URINE RANDOM 36.28 20.00 - 300.00 mg/dL [facility] MICROALBUM CREATININE RATIO UR 104.7(H) 0.0 - 29.9 mg/g TBH Comment: NO MICROALBUMINURIA 0-29 MG/G CLINICAL MICROALBUMINURIA 30-300 MG/G MACROALBUMINURIA >300 MG/G 04/02/2025 12:4 8 PM EDT 04/02/2025 12:57 PM EDT Narrative CLINISYNC - 04/02/2025 1:26 PM EDT us Tonya Dye NP CLINISYNC Final Result CL[facility]NC [facility] documented in this encounter Visit Diagnoses Not on filedocumented in this encounter Additional Health Concerns Assessment Noted Time PHQ-9 Depression Total Score: 3 03/27/20 25 2:22 PM EDT documented as of this encounter Care Teams Comparator Operator Relationship Specialty Start Date End Date Mumtaz Jensen MD [address] [place] [address] PCP - General Family Medicine 11/28/23 Tonya Dye NP [address] [place] [address] PCP - ACO Reach 11/22/24 Tonya Dye NP Referring Physician Nurse Practitioner 03/09/23 documented as of this encounter
--- OUTSIDE RECORDS SUMMARY | 2025-04-08 14:02 | XMS_ITS | Encounter Summary ---
Author Organization [facility] Address [address] [place] [address] Care Team Providers Care Equipment Installation Professional Name Role Phone Tonya Dye NP Unavailable [phone] Mumtaz Jensen MD Primary Care Provider Tonya Dye NP Unavailable [phone] Encounter Details Date Type Department Care Team (Late st Contact Info) Description 11/21/2024 Orders Only [facility] [address] [place] [address] Tonya Dye NP [address] [place] [address] Social History Tobacco Use Types Packs/Day Years [...] 06/30/2025 1:00 PM EDT Office Visit [facility] [address] [place] [address] Tonya Dye NP [address] [place] [address] 04/02/2026 11:00 AM EDT Office Visit [facility] [address] [place] [address] Tonya Dye NP [address] [place] [address] documented as of this encounter Procedures Procedure [...] documented as of this encounter Care Teams Equipment Installation Professional Relationship Specialty Start Date End Date Mumtaz Jensen MD [address] [place] [address] PCP - General Family Medicine 11/28/23 Tonya Dye NP [address] [place] [address] PCP - ACO Reach 11/22/24 Tonya Dye NP Referring Physician Nurse Practitioner 03/09/23 documented as of this encounter
--- OUTSIDE RECORDS SUMMARY | 2025-04-08 14:02 | XMS_ITS | Encounter Summary ---
Author Organization [facility] Address [address] [place] [address] Care Team Providers Care Automotive Software Engineer Name Role Phone Tonya Dye DRY HEAT CABINET ATTENDANT Unavailable [phone] Mumtaz Jensen MD Primary Care Provider [phone] Tonya Dye DRY HEAT CABINET ATTENDANT Unavailable [phone] Encounter Details Date Type Department Care Team (Late st Contact Info) Description 03/12/2024 Orders Only [facility] [address] [place] [address] Social History Tobacco Use Types [...] Visit [facility] [address] [place] [address] Tonya Dye NP [address] [place] [address] 04/02/2026 11:00 AM EDT Office Visit [facility] [address] [place] [address] Tonya Dye NP [address] [place] [address] documented as of this encounter Procedures Procedure [...] Region Laterality Modality Chest Radiographic Mary ging [facility] IMG XR PROCEDURES Final Result documented in this encounter Visit Diagnoses Not on filedocumented in this encounter Additional Health Concerns Assessment Noted Time PHQ-9 Depression Total Score: 3 02/27/20 24 11:39 AM EDT documented as of this encounter Care Teams Automotive Software Engineer Relationship Specialty Start Date End Date Mumtaz Jensen MD [address] [place] [address] PCP - General Family Medicine 11/28/23 Tonya Dye NP [address] [place] [address] PCP - ACO Reach 11/22/24 Tonya Dye NP Referring Physician Nurse Practitioner 03/09/23 documented as of this encounter
--- OUTSIDE RECORDS SUMMARY | 2025-04-08 14:02 | XMS_ITS | Clinical Summary ---
Author Organization [employer] [facility] Address [id number] [address] [place] [address] Care Team Providers Care Asbestos Coverer Name Role Phone Tonya Dye JUNIOR PHP DEVELOPER-STORE STOCKER Primary Care Provider Allergies Active Allergy Reactions [...] (09/21/2021): Added automatically from request for surgery [id number] Assessment & Plan (02/08/2024 10:17 AM EDT): Arterial Duplex US RLE PVR Continue Plavix and statin. Smoking cessation. Sebaceous cyst 11/07/2019 Resolved Problems Problem Noted Date Diagnosed Date Resolved Date Coronary artery disease invo lving [place] coronary artery of [place] heart without angina pectoris 03/29/2024 03/29/2024 Encounters Date Type Department Care Team Description 03/17/2025 Telephone [facility] - Vein Care [address] [facility] [place] [address] Marie Zambrano CMA 02/26/2025 Telephone [facility] [address] [place] [address] Erika Palacios LPN 02/25/2025 Telephone [facility] [address] [place] [address] Yaneli Howell MD 02/20/2025 3:00 PM EDT Office Visit [facility] Otho [address] [place] [address] Robyn Frazier, JUNIOR PHP DEVELOPER-STORE STOCKER PAD (peripheral artery disease) (Primary Dx); Claudication; History of arterial bypass of lower extremity 02/20/2025 Orders Only [facility] [address] [place] [address] Dafne Jimenez [facility] Claudication; PAD (peripheral artery disease); History of arterial bypass of lower extremity 02/20/2025 Travel 02/03/2025 Orders Only [facility] [address] [facility] [address] [place] [address] Marie Zambrano [facility] Claudication; Cigarette smoker motivated to quit 01/16/2025 Telephone [facility] Surgery [address] [place] [address] Yaneli Howell MD 01/16/2025 Telephone [facility] [address] [place] [address] Yaneli Howell MD 01/13/2025 9:00 AM EDT Office Visit [facility] [address] [place] [address] Muna Persaud PA-C Moderate aortic valve stenosis (Primary Dx); Mixed hyperlipidemia 01/13/2025 Travel 01/10/2025 Telephone [facility] [address] [place] [address] Tali Naidu from Last 3 Months Immunizations [...] Info) Description 04/14/2025 10:30 AM EDT Appointment [facility] - Cardiovascular [address] [place] [address] Muna Persaud PA-C [address] [place] [address] 07/15/2025 1:15 PM EDT Office Visit [facility] Cardiology [address] [facility] [address] [place] [address] Tamara Rebolledo MD [address] [place] [address] 03/04/2026 2:15 PM EDT Appointment [facility] - Vascular [address] [place] [address] Robyn Frazier, JUNIOR PHP DEVELOPER-STORE STOCKER [address] [place] [address] 03/04/2026 3:00 PM EDT Appointment [facility] - Vascular [address] [place] [address] Robyn Frazier, JUNIOR PHP DEVELOPER-STORE STOCKER [address] [place] [address] 04/02/2026 11:50 AM EDT Office Visit [facility] V[facility] [place] [address] Yaneli Howell MD [address] [place] [address] Health Maintenance Due Date Last Done Comments [...] 02/20/2026 02/20/2025 Medical Devices Implanted Type Area Services Host Device Identifier Shelf Expiration Date Model / Serial / Lot Stent Vsc 6mm 40mm 130cm Dlv Sys Tamra - [id number] Implanted:Qty: 1 on 08/24/2022 by Shirin Howell MD at [facility] [employer] [employer] [id number] 12/22/2023 [id number] / / [id number] Insurance MEDICARE COMMERCIAL Care Teams Asbestos Coverer Relationship Specialty Start Date End Date Tonya Dye, RAFITA-STORE STOCKER PCP - General Nurse Practitioner 09/07/21
--- OUTSIDE RECORDS SUMMARY | 2025-04-08 14:02 | XMS_ITS | Encounter Summary ---
Author Organization [facility] Address [id number] [address] [place] [address] Care Team Providers Care Hvac R Instructor Name Role Phone NeptaliTonya mercado Gail OPTOMETRIC ASSISTANT-LABORATORY INSPECTOR Primary Care Provider Encounter Details Date Type Department Care Team (Late st Contact Info) Description 10/26/2021 Orders Only [facility] Physicians Cardiology [address] [place] [address] External, Scanning Provider Social History Tobacco Use [...] Info) Description 04/14/2025 10:30 AM EDT Appointment [facility] - Cardiovascular [address] [place] [address] Muna Persaud PA-C [address] [place] [address] 07/15/2025 1:15 PM EDT Office Visit [facility] Physicians Cardiology [address] [place] [address] Tamara Rebolledo MD [address] [place] [address] 03/04/2026 2:15 PM EDT Appointment [facility] Vascular [address] [place] [address] Robyn Frazier, OPTOMETRIC ASSISTANT-LABORATORY INSPECTOR [address] [facility] [place] [address] 03/04/2026 3:00 PM EDT Appointment [facility] Vascular [address] [place] [address] Robyn Frazier, OPTOMETRIC ASSISTANT-LABORATORY INSPECTOR [address] [place] [address] 04/02/2026 11:50 AM EDT Office Visit [facility] [address] [place] [address] Yaneli Howell MD [address] [facility] [facility] [address] [place] [address] documented as of this encounter Procedures Procedure [...] documented as of this encounter Care Teams Hvac R Instructor Relationship Specialty Start Date End Date Tonya Dye, RAFITA-LABORATORY INSPECTOR PCP - General Nurse Practitioner 09/07/21 documented as of this encounter
--- OUTSIDE RECORDS SUMMARY | 2025-04-08 14:02 | XMS_ITS | Encounter Summary ---
Author Organization [facility] Address [address] [place] [address] Care Team Providers Care Wood Car Builder Name Role Phone Tonya Dye SPACE SCIENCES DIRECTOR Unavailable [phone] Mumtaz Jensen MD Primary Care Provider Tonya Dye NP Unavailable [phone] Encounter Details Date Type Department Care Team (Late st Contact Info) Description 03/13/2024 Orders Only [facility] [address] [place] [address] Tonya Dye NP [address] [place] [address] Social History Tobacco Use Types [...] [facility] [address] [place] [address] Tonya Dye NP [address] [place] [address] 04/02/2026 11:00 AM EDT Office Visit [facility] [address] [place] [address] Tonya Dye NP [address] [place] [address] documented as of this encounter Procedures [...] documented as of this encounter Care Teams Wood Car Builder Relationship Specialty Start Date End Date Mumtaz Jensen MD [address] [place] [address] PCP - General Family Medicine 11/28/23 Tonya Dye NP [address] [place] [address] PCP - ACO Reach 11/22/24 Tonya Dye NP Referring Physician Nurse Practitioner 03/09/23 documented as of this encounter
--- OUTSIDE RECORDS SUMMARY | 2025-04-08 14:02 | XMS_ITS | Encounter Summary ---
Author Organization [facility] Address [address] [place] [address] Care Team Providers Care Transfer Operator Name Role Phone Tonya Dye NP Unavailable [phone] Mumtaz Jensen MD Primary Care Provider Tonya Dye NP Unavailable [phone] Encounter Details Date Type Department Care Team (Late st Contact Info) Description 07/04/2024 Orders Only [facility] [address] [place] [address] Tonya Dye NP [address] [place] [address] Social History Tobacco Use Types Packs/Day Years [...] Visit [facility] [address] [place] [address] Tonya Dye NP [address] [place] [address] 04/02/2026 11:00 AM EDT Office Visit [facility] [address] [place] [address] Tonya Dye NP [address] [place] [address] documented as of this encounter Procedures Procedure [...] documented as of this encounter Care Teams Transfer Operator Relationship Specialty Start Date End Date Mumtaz Jensen MD [address] [place] [address] PCP - General Family Medicine 11/28/23 Tonya Dye NP [address] [place] [address] PCP - ACO Reach 11/22/24 Tonya Dye NP Referring Physician Nurse Practitioner 03/09/23 documented as of this encounter
--- OUTSIDE RECORDS SUMMARY | 2025-04-08 14:02 | XMS_ITS | Clinical Summary ---
Author Organization [facility] Address [address] [place] [address] Care Team Providers Care Chucking Machine Set Up Operator Tool Name Role Phone Unavailable Primary Care Provider Unavailabl e Social History Tobacco Use Types Packs/Day Years Used Date Smoking Tobacco: Never Assessed [place] Safety & Environment Answer Date Rec orded Fear of Current or Ex-Partner Not on file Emotionally Abused Not on file 12/07/2023 Physically Abused Not on file 12/07/2023 Sexually Abused Not on file 12/07/2023 Physically or Sexually Abused Not on file Sex and Gender Information Value Date Recorded Sex Assigned at Not on file Legal Sex Male 11:05 PM EDT Gender Identity Not on file Sexual Orientation Not on file Plan of Treatment Health Maintenance Due Date Last Done Comments CT Colonography 1951 Colonoscopy 1950 Colorectal Cancer Screening 1950 FIT-DNA 1951 FIT 1950 FOBT 1950 Medicare Annual Wellness (AWV) 1950 Sigmoidoscopy 1951 Depression Screening 1963 Adult Tetanus 1973 Pneumococcal Vaccine: 50+ Ye ars (1 of 1 - PCV) 2001 Zoster Vaccines (1 of 2) 2001 Fall Risk Screening 2016 COVID-19 Vaccine (2023-2 5 season) 2024 Influenza Vaccine (Season Ended) 2025 HIB Vaccines Aged Out No longer eligi ble based on patient's age to complete this topic HPV Vaccines Aged Out No longer eligi ble based on patient's age to complete this topic IPV Vaccines Aged Out No longer eligi ble based on patient's age to complete this topic Meningococcal B Vaccine Aged Out No l onger eligible based on patient's age to complete this topic Meningococcal Vaccine Aged Out No sofie clara eligible based on patient's age to complete this topic Rotavirus Vaccines Aged Out No longer eligible based on patient's age to complete this topic Insurance [place]ICARE [place] [id number]
--- OUTSIDE RECORDS SUMMARY | 2025-04-08 14:02 | XMS_ITS | Referral Summary ---
Author Organization [facility] Address [address] [place] [address] Care Team Providers Care Senior Systems Programmer Name Role Phone Unavailable Primary Care Provider [...] Orientation Not on file Plan of Treatment Not on file Insurance MEDICARE
--- OUTSIDE RECORDS SUMMARY | 2025-04-08 14:02 | XMS_ITS | Encounter Summary ---
Author Organization [facility] Address [address] [facility] [place] [address] Care Team Providers Care Inventory Control Manager Name Role Phone Tonya Dye NP Unavailable [phone] Mumtaz Jensen MD Primary Care Provider [phone] Tonya Dye NP Unavailable [phone] Encounter Details Date Type Department Care Team (Late st Contact Info) Description 03/19/2024 Orders Only [facility] [address] [place] [address] Tonya Dye NP [address] [place] [address] Social History Tobacco Use Types Packs/Day Years [...] 06/30/2025 1:00 PM EDT Office Visit [facility] [address] [place] [address] Tonya Dye NP [address] [place] [address] 04/02/2026 11:00 AM EDT Office Visit [facility] [address] [place] [address] Tonya Dye NP [address] [place] [address] documented as of this encounter Procedures Procedure Name Priority Date/Time Associated Diagnosis Comments ECHO TRANSTHORACIC W/ DOPPLER Routine 03/19/2024 10:25 AM EDT documented in this encounter Results * ECHO TRANSTHORACIC W/ DOPPLER (03/19/2024 10:25 AM EDT) Anatomical Region Laterality Modality Radiographic Mary ging us Tonya Dye BUSINESS DEVELOPMENT OFFICER IMG XR PROCEDURES Final Result documented in this encounter Visit Diagnoses Not on filedocumented in this encounter Additional Health Concerns Assessment Noted Time PHQ-9 Depression Total Score: 3 02/27/20 24 11:39 AM EDT documented as of this encounter Care Teams Inventory Control Manager Relationship Specialty Start Date End Date Mumtaz Jensen MD [address] [place] [phone] PCP - General Family Medicine 11/28/23 Tonya Dye NP [address] [place] [address] PCP - ACO Reach 11/22/24 Tonya Dye NP Referring Physician Nurse Practitioner 03/09/23 documented as of this encounter
[2025-04-08 14:11] LABS: Basophils Absolute Auto 0.1 10^3/uL (0.0-0.1); Basophils Percent Auto 0.6 % (0.2-2.0); Eosinophils Absolute Auto 0.2 10^3/uL (0.0-0.7); Eosinophils Percent Auto 2.1 % (0.9-7.0); Hematocrit 48.4 % (42.0-54.0); Hemoglobin 16.5 g/dL (14.0-18.0); Immature Granulocytes Abs Auto 0.03 10^3/uL (0.00-0.03); Immature Granulocytes Pct Auto 0.4 % (0.0-0.5); Lymphocytes Absolute Auto 1.9 10^3/uL (1.2-3.8); Lymphocytes Percent Auto 23.1 % (20.5-60.0); Mean Corpuscular HGB Conc 34.1 g/dL (29.9-35.2); Mean Corpuscular Hemoglobin 31.4 pg (25.9-34.0); Mean Corpuscular Volume 92.2 fL (80.0-94.0); Mean Platelet Volume 9.3 fL (9.5-13.5); Monocytes Absolute Auto 0.8 10^3/uL (0.3-0.8); Monocytes Percent Auto 9.9 % (1.7-12.0); Neutrophils Absolute Auto 5.1 10^3/uL (1.4-6.5); Neutrophils Percent Auto 63.9 % (43.0-75.0); Platelet Count 216 10^3/uL (150-450); Red Blood Count 5.25 10^6/uL (4.70-6.10); Red Cell Distribution Width 13.3 % (11.0-15.0)
[2025-04-08 14:16] LABS: Erythrocyte Sedimentation Rate 21 mm/hr (<=20)
[2025-04-08 14:18] LABS: Bilirubin Urine NEGATIVE (NEGATIVE); Blood Urine NEGATIVE (NEGATIVE); Clarity Urine CLEAR (CLEAR); Color Urine LT. YELLOW (YELLOW); Glucose Urine UA >=1000 mg/dL (NEGATIVE); Ketones Urine NEGATIVE (NEGATIVE); Leukocyte Esterase Urine NEGATIVE (NEGATIVE); Nitrite Urine NEGATIVE (NEGATIVE); Protein Urine NEGATIVE (NEG/TRACE); Specific Gravity Urine 1.015 (1.005-1.025); Urobilinogen Urine 0.2 EU/dL (0.2-1.0)
[2025-04-08 14:19] LABS: Urine Microscopic Indicated NO
[2025-04-08 14:34] LABS: Alanine Aminotransferase 17 U/L (16-63); Albumin Globulin Ratio 0.8; Albumin Level 3.3 g/dL (3.4-5.0); Alkaline Phosphatase 126 U/L (46-116); Amylase 45 U/L (25-115); Aspartate Amino Transferase 12 U/L (15-37); BUN Creatinine Ratio 18.6; Bilirubin Total 0.4 mg/dL (0.2-1.0); Calcium 9.1 mg/dL (8.5-10.1); Carbon Dioxide 28.2 mmol/L (21.0-32.0); Chloride 102 mmol/L (98-107); Estimated GFR (African America >60 (>=60 mL/min/1.73m^2); Estimated GFR (Non-African Ame >60 (>=60 mL/min/1.73m^2); Globulin 4.1 g/dL; Glucose 119 mg/dL (74-106); Potassium 4.2 mmol/L (3.5-5.1); Sodium 138 mmol/L (136-145); Total Protein 7.4 g/dL (6.4-8.2)
== END 2025-04-08 13:54 | disposition home or self-care (01) ==
LOC: LAB 13:58
PROVIDERS: PCP Nurse Practitioner; Visit Provider Nurse Practitioner
DX: R10.84 Generalized abdominal pain (principal)
CPT/HCPCS: 80053; 81003; 82150; 83690; 85025; 85652

== ENCOUNTER 2025-04-12 01:43 | Emergency (ER) | payer MEDICARE, OTHER, SELFPAY ==
--- OUTSIDE RECORDS SUMMARY | 2025-04-08 13:00 | XMS_ITS | Encounter Summary ---
Author Organization [facility] Address [address] [place] [address] Care Team Providers Care Relay Motorman Name Role Phone Tonya Dye INVESTIGATION SPECIALIST Unavailable [phone] Mumtaz Jensen MD Primary Care Provider [phone] Tonya Dye INVESTIGATION SPECIALIST Unavailable [phone] Reason for Visit * Reason Comments Abdominal Pain Back Pain Encounter Details Date Type Department Care Team (Late st Contact Info) Description 04/08/2025 1:00 PM EDT Office Visit [facility] [address] [place] [address] Tonya Dye NP [address] [place] [address] Abdominal pain, generalized (Primary Dx); Diverticulitis Social [...] order US of gallbladder, fax order to [facility], they will call you about scheduling this [...] Check labs Suspicion divertic, but possible gallbladder * MARCELLO CHOWDARY - 04/08/2025 1:00 PM EDT Pt states pain started about 6 weeks ago. Pt is having upper back pain that goes all around. Stomach pain can be in in all abd quads and cramping. Pt has been having some constipation Pt has nausea at times Typically happens late afternoon-evening time * Tonya Dye NP - 04/08/2025 1:00 PM EDT Darin Thacker is a 75 y.o. male presents with chief complaint of Abdominal Pain and Back Pain HPI: Abd pain: 6 weeks ago, intermittent, upper abd and mid abd, with some around at shoulder blade level Occ nausea, no worse/better with eating, some intermittent constipation. No diff with urination, nofever/chills Achy pain. No bloody stools or urine SUBJECTIVE: MEDICATIONS: Current Outpatient Medications Medication Instructions [...] chest tightness and wheezing. Cardiovascular: Negative for leg swelling. Gastrointestinal: Positive for abdominal pain. Negative for abdominal distention, blood in stool, constipation and diarrhea. Genitourinary: Negative for decreased urine volume, difficulty urinating, dysuria and hematuria. Skin: Negative for color change. Neurological: Negative for dizziness, tremors and seizures. Psychiatric/Behavioral: Negative for agitation, decreased concentration, hallucinations, self-injury and suicidal ideas. The patient is not nervous/anxious. Hematological: Negative for adenopathy. Does not bruise/bleed easily. Endocrine: Negative for cold intolerance, heat intolerance, polydipsia and polyuria. Allergic/Immunologic: Negative for environmental allergies [...] Uncontrolled type 2 diabetes mellitus with hyperglycemia ([facility]) Vitamin B12 deficiency Past Surgical History: [...] is not on file. OBJECTIVE: Visit Vitals Smoking Status Every Day Physical Exam Vitals and nursing note reviewed. Constitutional: Appearance: Normal appearance. HENT: Head: Normocephalic. Right Ear: External ear normal. Left Ear: External ear normal. Nose: Nose normal. Mouth/Throat: Mouth: Mucous membranes are moist. Pharynx: Oropharynx is clear. Eyes: Extraocular Movements: Extraocular movements intact. Conjunctiva/sclera: Conjunctivae normal. Cardiovascular: Rate and Rhythm: Normal rate and regular rhythm. Pulses: Normal pulses. Heart sounds: Normal heart sounds. Pulmonary: Effort: Pulmonary effort is normal. Breath sounds: Normal breath sounds. No wheezing or rhonchi. Abdominal: General: Bowel sounds are normal. There is no distension. Palpations: Abdomen is soft. There is no mass. Tenderness: There is no abdominal tenderness. Musculoskeletal: Cervical back: Neck supple. Right lower leg: No edema. Left lower leg: No edema. Skin: General: Skin is warm and dry. Capillary Refill: Capillary refill takes 2 to 3 seconds. Neurological: General: No focal deficit present. Mental Status: He is alert. Psychiatric: Mood and Affect: Mood normal. Behavior: Behavior normal. Thought Content: Thought content normal. Judgment: Judgment normal. ASSESSMENT AND PLAN: No follow-ups on file. Problem List Items Addressed This Visit Diverticulitis Check labs, if pain worsens go to Er Allergies to PCN and cipro Abdominal pain, generalized - Primary Check labs Suspicion divertic, but possible gallbladder Relevant Orders CBC and differential Comprehensive metabolic panel Urinalysis with reflex microscopic (clean catch) Sedimentation rate, automated Amylase Lipase documented in this encounter Plan of Treatment Upcoming Encounters Date Type Department Care Team (Late st Contact Info) Description 06/30/2025 1:00 PM EDT Office Visit [facility] [address] [place] [address] Tonya Dye NP [address] [place] [address] 04/02/2026 11:00 AM EDT Office Visit [facility] [address] [place] [address] Tonya Dye, SHIVAM [address] [place] [address] Scheduled Orders Name Type Priority Associated Diagnoses [...] documented as of this encounter Care Teams Relay Motorman Relationship Specialty Start Date End Date Mumtaz Jensen MD [address] [place] [address] PCP - General Family Medicine 11/28/23 Tonya Dye, SHIVAM [address] [place] [address] PCP - ACO Reach 11/22/24 Tonya Dye NP Referring Physician Nurse Practitioner 03/09/23 documented as of this encounter
[2025-04-12 01:47] VITALS: BP 160/70; PULSE 84; TEMP 36.5; O2SAT 97; BMI 28.2
--- OUTSIDE RECORDS SUMMARY | 2025-04-12 01:53 | XMS_ITS | Encounter Summary ---
Author Organization [facility] Address [id number] [address] [place] [address] Care Team Providers Care Deburr Operator Name Role Phone Valerie Dyea Gail OIL PIPELINE OPERATOR-AIR CONTROL ELECTRONICS OPERATOR Primary Care Provider Encounter Details Date Type Department Care Team (Late st Contact Info) Description 10/01/2021 Telephone [facility] [address] [place] [address] Shirin Howell MD [address], [facility] [address] [place] [address] Social History Tobacco Use Types Packs/Day Years [...] hard time. He can be reached at [phone] * Telephone Encounter - Erika Palacios LPN [...] Info) Description 04/14/2025 10:30 AM EDT Appointment [facility] - Cardiovascular [address] [place] [address] Muna Persaud PA-C [address] [place] [address] 07/15/2025 1:15 PM EDT Office Visit [facility]icians Cardiology [address] [place] [address] Tamara Rebolledo MD [address] [place], [place] [address] 03/04/2026 2:15 PM EDT Appointment [facility] - Vascular [address] [place] [address] Robyn Frazier, OIL PIPELINE OPERATOR-AIR CONTROL ELECTRONICS OPERATOR [address] [facility] [place] [address] 03/04/2026 3:00 PM EDT Appointment [facility] - Vascular [address] [place] [address] Robyn Frazier, OIL PIPELINE OPERATOR-AIR CONTROL ELECTRONICS OPERATOR [address] [place] [address] 04/02/2026 11:50 AM EDT Office Visit [facility] [address] [place] [address] Yaneli Howell MD [address], [address] [address] documented as of this encounter Visit Diagnoses Not on filedocumented in this encounter Additional Health Concerns Infection Onset Date Last Indicated Resolved Time COVID-19 Rule-Out 11/07/2021 11/07/2021 11/08/2021 2:25 AM EST Assessment Noted Time A Body Mass Index follow-up plan has been documented for the patient 11/14/2019 2:01 PM EST documented as of this encounter Care Teams Deburr Operator Relationship Specialty Start Date End Date Tonya Dye, OIL PIPELINE OPERATOR-AIR CONTROL ELECTRONICS OPERATOR PCP - General Nurse Practitioner 09/07/21 documented as of this encounter
--- OUTSIDE RECORDS SUMMARY | 2025-04-12 01:54 | XMS_ITS | Encounter Summary ---
Author Organization [facility] Address [address] [place] [address] Care Team Providers Care Arc Air Operator Name Role Phone Tonya Dye NP Unavailable [phone] Mumtaz Jensen MD Primary Care Provider Tonya Dye CAMPUS AMBASSADOR Unavailable [phone] Reason for Visit * Reason Comments Med Refill Encounter Details Date Type Department Care Team (Late Contact Info) Description 05/22/2024 Refill [facility] [address] [place] [address] Tonya Dye, CAMPUS AMBASSADOR [address] [place] [address] Social History Tobacco Use Types Packs/Day Years [...] 06/30/2025 1:00 PM EDT Office Visit [facility] [address] [place] [address] Tonya Dye, SHIVAM [address] [place] [phone] 04/02/2026 11:00 AM EDT Office Visit [facility] [address] [place] [address] Tonya Dye, SHIVAM [address] [place] [address] documented as of this encounter Visit Diagnoses Not on filedocumented in this encounter Additional Health Concerns Assessment Noted Time PHQ-9 Depression Total Score: 3 02/27/20 24 11:39 AM EDT documented as of this encounter Care Teams Arc Air Operator Relationship Specialty Start Date End Date Mumtaz Jensen MD [address] [place] [phone] PCP - General Family Medicine 11/28/23 Tonya Dye NP [address] [place] [address] PCP - ACO Reach 11/22/24 Tonya Dye NP Referring Physician Nurse Practitioner 03/09/23 documented as of this encounter
--- OUTSIDE RECORDS SUMMARY | 2025-04-12 01:54 | XMS_ITS | Encounter Summary ---
Author Organization [facility] Address [address] [place] [address] Care Team Providers Care Product Marketing Consultant Name Role Phone Tonya Dye ELECTRONICS RECYCLER Unavailable [phone] Mumtaz Jensen MD Primary Care Provider [phone] Tonya Dye NP Unavailable [phone] Encounter Details Date Type Department Care Team (Late st Contact Info) Description 04/02/2025 Clinisync Result Encounter [facility] External Department Unsolicited Tonya Dye NP [address] [place] [address] Social History Tobacco Use Types Packs/Day [...] 06/30/2025 1:00 PM EDT Office Visit [facility] [address] [place] [phone] Tonya Dye NP [address] [place] [address] 04/02/2026 11:00 AM EDT Office Visit [facility] [address] [place] [address] Tonya Dye NP [address] [place] [address] documented as of this encounter Procedures Procedure Name Priority Date/Time Associated Diagnosis Comments SRMCOH PROSTATE SPECIFIC ANTIGEN SCRN Routine 04/02/2025 12:56 PM EDT [facility] CMP (CMP) (FOR REMOTE [facility] USE) Routine 04/02/2025 12:56 PM [...] ANTIGEN SCRN (04/02/2025 12:56 PM EDT) Pathologist [facility] PROSTATE SPECIFIC ANTIGEN SCRN 0.47 <=4.00 ng/mL TBH 04/02/2025 12:5 6 PM EDT 04/02/2025 12:57 PM EDT Narrative CLINISYNC - 04/02/2025 2:20 PM EDT us Tonya Dye NP CLINISYNC Final Result [facility]INISYNC [facility] * (ABNORMAL) ALL LIPID PROFILE (FASTING) (04/02/2025 [...] Tonya Dye NP CLINISYNC Final Result [facility]NC [facility] * (ABNORMAL) [facility]CF CMP (CMP) (FOR REMOTE [facility] USE) (04/02/2025 12:56 PM EDT) [...] 0.70 - 1.30 mg/dL TBH TBH EGFR-AF GABONESE >60 >=60 mL/min/1. 73m 2 TBH TBH EGFR-NON AF GABONESE >60 >=60 mL/min/1. 73m 2 TBH BUN [...] Tonya Dye NP CLINISYNC Final Result CLINISYNC [facility] * (ABNORMAL) ALL CBC WITH AUTO DIFF [...] NP CLINISYNC Final Result Performing Organization Address [facility] Co de Phone Number CLINISYNC [facility] * [...] NP CLINISYNC Final Result Performing Organization Address City/[facility] [address]/ZIP Co de Phone Number CLINISYNC [facility] * [...] Tonya Dye NP CLINISYNC Final Result CL[facility]ISYNC [facility] documented in this encounter Visit Diagnoses Not on filedocumented in this encounter Additional Health Concerns Assessment Noted Time PHQ-9 Depression Total Score: 3 03/27/20 25 2:22 PM EDT documented as of this encounter Care Teams Product Marketing Consultant Relationship Specialty Start Date End Date Mumtaz Jensen MD [address] [place] [address] PCP - General Family Medicine 11/28/23 Tonya Dye NP [address] [place] [address] PCP - ACO Reach 11/22/24 Tonya Dye NP Referring Physician Nurse Practitioner 03/09/23 documented as of this encounter
--- OUTSIDE RECORDS SUMMARY | 2025-04-12 01:54 | XMS_ITS | Encounter Summary ---
Author Organization [facility] Address [address] [place] [address] Care Team Providers Care Interior Mechanic Name Role Phone Tonya Dye NP Unavailable [phone] Mumtaz Jensen MD Primary Care Provider Tonya Dye NP Unavailable [phone] Encounter Details Date Type Department Care Team (Late st Contact Info) Description 12/21/2023 Orders Only [facility] [address] [place] [phone] Tonya Dye NP [address] [place] [address] Social History Tobacco Use Types Packs/Day Years [...] [facility] [address] [place] [address] Tonya Dye NP [address] [place] [phone] 04/02/2026 11:00 AM EDT Office Visit [facility] [address] [place] [phone] Tonya Dye NP [address] [place] [phone] documented as of this encounter Procedures Procedure Name Priority Date/Time Associated Diagnosis Comments MISCELLANEOUS LAB TEST Routine 12/20/2023 8:15 AM EST MISCELLANEOUS LAB TEST Routine 12/20/2023 8:11 AM EST documented in this encounter Results * - Miscellaneous Test (12/20/2023 8:15 AM EST) Tonya Dye NP LAB BLOOD ORDERABLES Final Resu lt * - Miscellaneous Test (12/20/2023 8:11 AM EST) Tonya yDe PHOTOGRAPHY SALES ASSOCIATE LAB BLOOD ORDERABLES Final Resu lt documented in this encounter Visit Diagnoses Not on filedocumented in this encounter Care Teams Interior Mechanic Relationship Specialty Start Date End Date Mumtaz Jensen MD [address] [place] [phone] PCP - General Family Medicine 11/28/23 Tonya Dye NP [address] [place] [phone] PCP - ACO Reach 11/22/24 Tonya Dye NP Referring Physician Nurse Practitioner 03/09/23 documented as of this encounter
--- OUTSIDE RECORDS SUMMARY | 2025-04-12 01:54 | XMS_ITS | Clinical Summary ---
Author Organization [facility] Address [address] [place] [address] Care Team Providers Care Light Armored Reconnaissance Officer Name Role Phone Tonya Dye NP Unavailable [phone] Mumtaz Jensen MD Primary Care Provider Tonya Dye INVESTOR Unavailable [phone] Allergies Active Allergy Reactions Criticality Noted [...] 30 tablet 1 03/27/20 25 025 Active sulfamethoxazole-t rimethoprim (Bactrim DS) 800-160 MG per tabletIndications: Diverticulitis Take 1 tablet by mouth every 12 (twelve) hours for 7 days 14 tablet 04/08/20 25 025 Active metroNIDAZOLE (Flagyl) 500 MG tabletIndications: Diverticulitis Take 1 tablet (500 mg) by mouth every 8 (eight) hours for 7 days No alcohol use while taking this medication 21 tablet 04/08/20 25 025 Active glucose blood (Accu-Chek Nicolle [...] Check labs Suspicion divertic, but possible gallbladder RUQ pain 04/08/2025 Primary insomnia 03/27/2025 Assessment & Plan (03/27/2025 [...] without gangrene 11/20/2024 Type 2 diabetes mellitus, [facility] long-term current use of insulin 08/20/2024 Assessment [...] 04/02/25 PSA 0.47 Encounter for subsequent [facility] wellness visit (AWV) in Medicare patient 02/27/2024 [...] POLYNEUROPATHY ASSOCIATED WITH TYPE 2 DIABETES MELLITUS ([facility]) WRITTEN ON 01/16/2024 10:23 AM BY TONYA DYE NP OARRS reviewed Increase gabapentin dose 600mg Fu in 6 weeks Assessment & Plan (11/20/2024 6:45 AM EST): >>ASSESSMENT AND PLAN FOR DIABETIC POLYNEUROPATHY ASSOCIATED WITH TYPE 2 DIABETES MELLITUS ([facility]) WRITTEN ON 04/04/2024 10:06 AM BY TONYA DYE NP Continue current gabapentin dose Fu in 2 months Assessment & Plan (11/20/2024 6:45 AM EST): >>ASSESSMENT AND PLAN FOR DIABETIC POLYNEUROPATHY ASSOCIATED WITH TYPE 2 DIABETES MELLITUS ([facility]) WRITTEN ON 06/04/2024 2:10 PM BY TONYA DYE NP Cont w memo Assessment & Plan (11/20/2024 6:45 AM EST): >>ASSESSMENT AND PLAN FOR DIABETIC POLYNEUROPATHY ASSOCIATED WITH TYPE 2 DIABETES MELLITUS ([facility]) WRITTEN ON 08/20/2024 7:01 AM BY TONYA [...] of the risks of continued smoking: stroke, [place], all forms of cancer, lung disease, and [...] of the risks of continued smoking: stroke, [place], all forms of cancer, lung disease, and [...] of the risks of continued smoking: stroke, [place], all forms of cancer, lung disease, and [...] of the risks of continued smoking: stroke, [place], all forms of cancer, lung disease, and [...] of the risks of continued smoking: stroke, [place], all forms of cancer, lung disease, and [...] (10/31/2023): Added automatically from request for surgery [id number] Assessment & Plan (11/20/2024 6:55 AM EST): [...] (02/27/2024): Added automatically from request for surgery [id number] Last Assessment & Plan: Arterial Duplex US [...] 04/08/2025 1:00 PM EDT Office Visit [facility] [address] [address] Tonya Dye NP Abdominal pain, generalized (Primary Dx); Diverticulitis 04/08/2025 Orders Only [facility] [address] [place] [address] Tonya Dye NP RUQ pain (Primary Dx) 04/08/2025 Clinisync Result Encounter [facility] External Department Unsolicited Tonya Dye NP 04/08/2025 Bamboo flowsheet [facility] [address] [place] [address] Tonya Dye NP 04/02/2025 Clinisync Result Encounter [facility] External Department Unsolicited Tonya Dye NP 03/27/2025 2:00 PM EDT Office Visit [facility] [address] [place] [phone] Tonya Dye NP Encounter for subsequent annual [...] (HCC); Primary insomnia 03/27/2025 Bamboo flowsheet [facility] [address] [place] [address] Tonya Dye NP 03/03/2025 Refill [facility] [address] [place] [phone] Tonya Dye NP Uncontrolled type 2 diabetes mellitus with hyperglycemia (HCC) 03/03/2025 Refill [facility] [address] [place] [phone] Tonya Dye NP Uncontrolled type 2 diabetes mellitus with hyperglycemia (HCC) 03/03/2025 Refill [facility] [address] [place] [phone] Tonya Dye NP Primary hypertension ; Allergic rhinitis, unspecified seasonality, unspecified trigger; Diabetic polyneuropathy associated with type 2 diabetes mellitus (HCC); Uncontrolled type 2 diabetes mellitus with hyperglycemia (HCC); PAD (peripheral artery disease); Acute gastritis without hemorrhage, unspecified gastritis type 03/03/2025 Telephone [facility] [address] [place] [phone] Tonya Dye NP 02/03/2025 Clinisync Result Encounter [facility] External Department Unsolicited Provider, Generic External Data 01/29/2025 Refill [facility] [address] [place] [phone] Tonya Dye NP Acute non-recurrent sinusitis of other sinus (Primary Dx) 01/29/2025 Telephone [facility] [address] [place] [phone] Tonya Dye NP Medication Question from Last [...] Office Visit [facility] [address] [place] [address] Tonya Dye NP [address] [place] [address] 04/02/2026 11:00 AM EDT Office Visit [facility] [address] [place] [address] Tonya Dye NP [address] [place] [address] Health Maintenance Due Date Last Done Comments CT Colonography 1950 FIT-DNA 1950 FIT 1950 FOBT 1950 Sigmoidoscopy 1950 Diabetes: Hemoglobin A1C 06/27/2025 025, 11/20/2024, 06/24/2024, Additional history exists Diabetes: Retinopathy Screening 11/21/2025 11/21/2024, 11/22/2023, 04/15/2022 Medicare Annual Wellness (AWV) 03/27/2026 0 03/27/2025, 02/27/2024, 02/27/2024 Diabetes: Urine Protein Screening 04/02/2026 025, 01/27/2023 Colonoscopy 10/16/2026 10/16/2016 Colorectal Cancer Screening 10/16/2026 Pneumococcal Vaccine: 65+ Years Completed 0, 08/07/2019 Influenza Vaccine Completed 07/12/2024, , 07/27/2022, Additional history exists Procedures Procedure Name Priority Date/Time Associated Diagnosis Comments CCF LIPASE Routine 04/08/2025 2:07 PM EDT ALL AMYLASE Routine 04/08/2025 2:07 PM EDT [facility] CMP (CMP) (FOR REMOTE [facility] USE) Routine 04/08/2025 2:07 PM EDT ALL SED RATE Routine 04/08/2025 2:07 PM EDT ALL CBC WITH AUTO DIFF Routine 04/08/2025 2:07 PM EDT TBH UA (CLEAN/CATCH) MICROSCOPIC IF INDICATE Routine 04/08/2025 2:05 PM EDT SRMCOH PROSTATE SPECIFIC ANTIGEN SCRN Routine 04/02/2025 12:56 PM EDT ALL LIPID PROFILE (FASTING) Routine 04/02/2025 12:56 PM EDT CCF CMP (CMP) (FOR REMOTE [facility] USE) Routine 04/02/2025 12:56 PM EDT ALL [...] EDT from Last 3 Months Results * CCF LIPASE (04/08/2025 2:07 PM EDT) LIPASE 23.0 16.0 - 77.0 U/L TBH 04/08/2025 2:07 PM EDT 04/08/2025 2:08 PM EDT Narrative CLINISYNC - 04/08/2025 2:39 PM EDT us Tonya Dye NP CLINISYNC Final Result CLINISYNC [facility] * (ABNORMAL) CCF CMP (CMP) (FOR REMOTE [facility] USE) (04/08/2025 2:07 PM EDT) Only the most recent of2 resultswithin the time period is included. SODIUM 138 136 - 145 mmol/L TBH POTASSIUM 4.2 3.5 - 5.1 mmol/L TBH CHLORIDE 102 98 - 107 mmol/L TBH CARBON DIOXIDE 28.2 21.0 - 32.0 mmol/L TBH ANION GAP 12.0 TBH GLUCOSE 119(H) 74 - 106 mg/dL TBH BLOOD UREA NITROGEN 13.0 7.0 - 18.0 mg/dL TBH CREATININE 0.70 0.70 - 1.30 mg/dL TBH TBH EGFR-AF ICELANDIC >60 >=60 mL/min/1. 73m 2 TBH TBH EGFR-NON AF ICELANDIC >60 >=60 mL/min/1. 73m 2 TBH BUN CREATININE RATIO 18.6 TBH CALCIUM 9.1 8.5 - 10.1 mg/dL TBH BILIRUBIN TOTAL 0.4 0.2 - 1.0 mg/dL TBH ASPARTATE AMINO TRANSFERASE 12(L) 15 - 37 U/L TBH ALANINE AMINOTRANSFERASE 17 16 - 63 U/L TBH ALKALINE PHOSPHATASE 126(H) 46 - 116 U/L TBH TOTAL PROTEIN 7.4 6.4 - 8.2 g/dL TBH ALBUMIN LEVEL 3.3(L) 3.4 - 5.0 g/dL TBH GLOBULIN 4.1 g/dL TBH ALBUMIN GLOBULIN RATIO 0.8 TBH 04/08/2025 2:07 PM EDT 04/08/2025 2:08 PM EDT Narrative CLINISYNC - 04/08/2025 2:39 PM EDT Tonya Dye INVESTOR [facility] * (ABNORMAL) ALL SED RATE (04/08/2025 2:07 PM EDT) Pathologist [facility] SED RATE 21(H) <=20 mm/hr TB 04/08/2025 2:07 PM EDT 04/08/2025 2:08 PM EDT Narrative CLINISYNC - 04/08/2025 2:16 PM EDT Tonya Dye NP CLINISYNC Final Result [facility] * (ABNORMAL) ALL CBC WITH AUTO DIFF (04/08/2025 2:07 PM EDT) Only the most recent of2 resultswithin the time period is included. Pathologist [facility] WBC 8.0 4.0 - 11.0 10 3/uL TBH TB RBC 5.25 4.70 - 6.10 10 6/uL TBH TB HGB 16.5 14.0 - 18.0 g/dL TB TB HCT 48.4 42.0 - 54.0 % TBH TB MCV 92.2 80.0 - 94.0 fL TBH TB MCH 31.4 25.9 - 34.0 pg TBH TBH MCHC 34.1 29.9 - 35.2 g/dL TBH TBH RDW 13.3 11.0 - 15.0 % TBH TBH PLT 216 150 - 450 10 3/uL TBH TBH MPV 9.3(L) 9.5 - 13.5 fL TBH NEUTROPHILS PERCENT AUTO 63.9 43.0 - 75.0 % TBH LYMPHOCYTES PERCENT AUTO 23.1 20.5 - 60.0 % TBH MONOCYTES PERCENT AUTO 9.9 1.7 - 12.0 % TBH TBH EO % 2.1 0.9 - 7.0 % TBH BASOPHILS PERCENT AUTO 0.6 0.2 - 2.0 % TBH IMMATURE GRANULOCYTES PCT AUTO 0.4 0.0 - 0.5 % TBH NEUTROPHILS ABSOLUTE AUTO 5.1 1.4 - 6.5 10 3/uL TBH LYMPHOCYTES ABSOLUTE AUTO 1.9 1.2 - 3.8 10 3/uL TBH MONOCYTES ABSOLUTE AUTO 0.8 0.3 - 0.8 10 3/uL TBH TBH EO # 0.2 0.0 - 0.7 10 3/uL TBH BASOPHILS ABSOLUTE AUTO 0.1 0.0 - 0.1 10 3/uL TBH IMMATURE GRANULOCYTES ABS AUTO 0.03 0.00 - 0.03 10 3/uL TBH 04/08/2025 2:07 PM EDT 04/08/2025 2:08 PM EDT Narrative CLINISYNC - 04/08/2025 2:13 PM EDT us Tonya Dye NP CLINISYNC Final Result [facility]NC [facility] * ALL AMYLASE (04/08/2025 2:07 PM EDT) AMYLASE 45 25 - 115 U/L TBH 04/08/2025 2:07 PM EDT 04/08/2025 2:08 PM EDT Narrative CLINISYNC - 04/08/2025 2:39 PM EDT Tonya Dye NP CLINISYNC Final Result CLINISYNC TB * (ABNORMAL) TBH UA (CLEAN/CATCH) MICROSCOPIC IF INDICATE (04/08/2025 2:05 PM EDT) Only the most recent of2 resultswithin the time period is included. COLOR URINE LT. YELLOW YELLOW TBH CLARITY URINE CLEAR CLEAR TBH SPECIFIC GRAVITY URINE 1.015 1.005 - 1.025 TBH PH URINE 6.0 [...] NEGATIVE TBH URINE MICROSCOPIC INDICATED NO TBH 04/08/2025 2:05 PM EDT 04/08/2025 2:08 PM EDT Narrative CLINISYNC - 04/08/2025 2:19 PM EDT us Tonya Dye NP CLINISYNC Final Result Performing Organization Address [facility] Co de Phone Number [facility] * SRMCOH PROSTATE SPECIFIC ANTIGEN SCRN (04/02/2025 12:56 PM EDT) PROSTATE SPECIFIC ANTIGEN SCRN 0.47 <=4.00 ng/mL TB 04/02/2025 12:5 6 PM EDT 04/02/2025 12:57 PM EDT Narrative CLINISYNC - 04/02/2025 2:20 PM EDT Tonya Dye NP CLINISYNC Final Result Performing Organization Address City/[facility] Co de Phone Number CLINISYOR TB * (ABNORMAL) ALL LIPID PROFILE (FASTING) (04/02/2025 [...] mg/dl VERY HIGH VLDL CHOLESTEROL 41.4 mg/dL TB CHOL HDL RATIO 3.9 TB Comment: 3.3 - 4.4 LOW RISK 4.4 - 7.1 AVERAGE RISK 7.1 - 11.0 MODERATE RISK >11.0 HIGH RISK 04/02/2025 12:5 6 PM EDT 04/02/2025 12:57 PM EDT Narrative CLINISYNC - 04/02/2025 1:57 PM EDT Tonya Dye NP CLINISYNC Final Result Performing Organization Address [facility] Co de Phone Number [facility] (ABNORMAL) TB MICROALB CREAT RATIO RANDOM (04/02/2025 12:48 PM EDT) MICROALBUMIN URINE RANDOM 3.8 <=30.0 mg/dL TB CREATININE URINE RANDOM 36.28 20.00 - 300.00 mg/dL TB MICROALBUM CREATININE RATIO UR 104.7(H) 0.0 - 29.9 mg/g TBH Comment: NO MICROALBUMINURIA 0-29 MG/G CLINICAL MICROALBUMINURIA 30-300 MG/G MACROALBUMINURIA >300 MG/G 04/02/2025 12:4 8 PM EDT 04/02/2025 12:57 PM EDT Narrative CLINISYNC - 04/02/2025 1:26 PM EDT Tonya Dye NP CLINISYNC Final Result Performing Organization Address [facility] Co de Phone Number [facility] * (ABNORMAL) POCT glycosylated hemoglobin (Hb A1C) docked device (03/27/2025 2:37 PM EDT) Hemoglobin A1C 7.9 Blood Venous blood specimen / Unknown 03/27/2025 2:37 PM EDT us Tonya Dye NP POINT OF CARE TEST ENTER/EDIT O RDERABLES Final Result * SEGMENTAL BLOOD PRESSURE (02/03/2025 1:39 PM EDT) Anatomical Region Laterality Modality Radiographic Mary ging 02/03/2025 1:39 PM EDT Narrative 02/03/2025 10:03 [place] [address] Cardiology Report Signed Patient: TERRI LOWE MR#: [id number] : 1950 Acct:[id number] Age/Sex: 74 / M ADM Date: 02/03/25 Loc: CARD Attending Dr: Yaneli Howell M.D. Ordering Physician: Yaneli Howell M.D. Date of Service: 02/03/25 Procedure(s): CA segmental UE or LE AIMEE Accession Number(s): [id number] cc: Tonya Dye NP; Yaneli Howell M.D. [facility] Test Date: 2025-02-03 Pat Name: TERRI LOWE Department: Room: - Gender: Male Regional Agronomist: : 1950 Requested By: 1891 Order Number: [id number] Reading MD: TRAVON CAMPBELL M.D. Interpretive Statements [...] By: TRAVON CAMPBELL Signed By: 02/03/25220202/03/252202 DD/ 38 TD/TT: Railroad Auditor: Procedure Note Radiology, Radiologist, MD - 02/03/2025 [place] [address] Cardiology Report Signed Patient: TERRI LOWE JMR#: [id number] : 1950cct:[id number] Age/Sex: 74 / MADM Date: 02/03/25 Loc: CARD Attending Dr: Yaneli Howell M.D. Ordering Physician: Yaneli Howell M.D. Date of Service: 02/03/25 Procedure(s): CA segmental UE or LE AIMEE Accession Number(s): [id number] cc: Tonya Dye INVESTOR; Yaneli Howell M.D. [facility] Test Date: 2025-02-03 Pat Name: TERRI LOWE Department: Room: - Gender: Male Regional Agronomist: : 1950 Requested By: 1891 Order Number: [id number] Reading MD: TRAVON CAMPBELL M.D. Interpretive Statements [...] Dictated By: TRAVON CAMPBELL Signed By:02/03/25220202/03/252202 DD/ 133 TD/TT: Railroad Auditor: Generic External Data Provider IMG XR PROCEDURES Final Result from Last 3 Months Insurance MEDICARE GENERIC OTHER Care Teams Light Armored Reconnaissance Officer Relationship Specialty Start Date End Date Mumtaz Jensen MD [address] [place] [address] PCP - General Family Medicine 11/28/23 Tonay Dye NP [address] [place] [address] PCP - O Reach 11/22/24 Tonya Dye NP Referring Physician Nurse Practitioner 03/09/23
--- OUTSIDE RECORDS SUMMARY | 2025-04-12 01:54 | XMS_ITS | Encounter Summary ---
Author Organization [facility] Address [address] [place] [address] Care Team Providers Care Director Search Marketing Strategies Name Role Phone Tonya Dye NP Unavailable [phone] Mumtaz Jensen MD Primary Care Provider [phone] Tonya Dye NP Unavailable [phone] Encounter Details Date Type Department Care Team (Late st Contact Info) Description 07/04/2024 Orders Only [facility] [address] [place] [address] Tonya Dye NP [address] [place] [address] Social History Tobacco Use Types Packs/Day Years [...] Visit [facility] [address] [place] [address] Tonya Dye NP [address] [place] [address] 04/02/2026 11:00 AM EDT Office Visit [facility] [address] [place] [phone] Tonya Dye NP [address] [place] [address] documented as of this encounter Procedures Procedure [...] as of this encounter Care Teams Director Search Marketing Strategies Relationship Specialty Start Date End Date Mumtaz Jensen MD [address] [place] [phone] PCP - General Family Medicine 11/28/23 Tonya Dye NP [address] [place] [address] PCP - ACO Reach 11/22/24 Tonya Dye NP Referring Physician Nurse Practitioner 03/09/23 documented as of this encounter
--- OUTSIDE RECORDS SUMMARY | 2025-04-12 01:54 | XMS_ITS | Encounter Summary ---
Author Organization [facility] [employer] [facility] tem Address [facility]-[id number] [address] [place] [address] Care Team Providers Care Mutuel Teller Name Role Phone NeptaliTonya mercado Gail PLANT TECHNICIAN/CONTROL ROOM OPERATOR-JEWEL SUPERVISOR Primary Care Provider Encounter Details Date Type Department Care Team (Late st Contact Info) Description 12/20/2022 Orders Only [facility] Cardiology [address] [place] [address] External, Scanning Provider Social History Tobacco Use [...] Info) Description 04/14/2025 10:30 AM EDT Appointment [facility] - Cardiovascular [address] [place] [address] Muna Persaud PA-C [address] [place] [address] 07/15/2025 1:15 PM EDT Office Visit [facility] Cardiology [address] [facility] [address] [place] [address] Tamara Rebolledo MD [address] [place] [address] 03/04/2026 2:15 PM EDT Appointment [facility] Vascular [address] [place] [address] Robyn Frazier, PLANT TECHNICIAN/CONTROL ROOM OPERATOR-JEWEL SUPERVISOR [address] [facility] [place] [address] 03/04/2026 3:00 PM EDT Appointment [facility] Vascular [address] [place] [address] Robyn Frazier, PLANT TECHNICIAN/CONTROL ROOM OPERATOR-JEWEL SUPERVISOR [address] [facility] [place] [address] 04/02/2026 11:50 AM EDT Office Visit [facility] [address] [place] [address] Yaneli Howell MD [address], [address] [address] documented as of this encounter Visit Diagnoses Not on filedocumented in this encounter Additional Health Concerns Assessment Noted Time A Body Mass Index follow-up plan has been documented for the patient 11/14/2019 2:01 PM EST documented as of this encounter Care Teams Mutuel Teller Relationship Specialty Start Date End Date Tonya Dye, PLANT TECHNICIAN/CONTROL ROOM OPERATOR-JEWEL SUPERVISOR PCP - General Nurse Practitioner 09/07/21 documented as of this encounter
--- OUTSIDE RECORDS SUMMARY | 2025-04-12 01:54 | XMS_ITS | Encounter Summary ---
Author Organization [facility] Address [address] [place] [address] Care Team Providers Care Service Planner Name Role Phone Tonya Dye PARLIAMENTARY ARCHIVIST Unavailable [phone] Mumtaz Jensen MD Primary Care Provider Tonya Dye PARLIAMENTARY ARCHIVIST Unavailable [phone] Encounter Details Date Type Department Care Team (Late st Contact Info) Description 02/05/2024 Clinisync Result Encounter [facility] External Department Unsolicited Citlaly Aceves MD [address] [place], [place] [id number] Social History Tobacco Use Types Packs/Day Years [...] Visit [facility] [address] [place] [address] Tonya Dye NP [address] [place] [address] 04/02/2026 11:00 AM EDT Office Visit [facility] [address] [place] [address] Tonya Dye NP [address] [place] [address] documented as of this encounter Procedures Procedure Name Priority Date/Time Associated Diagnosis Comments MRI HEAD/BRAIN WO/W CONTR 02/05/2024 4:48 PM EDT documented in this encounter Results * MRI HEAD/BRAIN WO/W CONTR (02/05/2024 4:48 PM EDT) Anatomical Region Laterality Modality Radiographic Mary ging 02/05/2024 4:4 8 PM EDT Narrative 02/05/2024 4:51 [place] [address] Magnetic Resonance Report Signed Patient: TERRI LOWE MR#: [id number] : 1950 Acct:[id number] Age/Sex: 73 / M ADM Date: 02/05/24 Loc: LAB Attending Dr: Citlaly Aceves M.D. Ordering Physician: Citlaly Aceves M.D. Date of Service: 02/05/24 Procedure(s): MR head/brain wo/w con Accession Number(s): [id number] cc: Tonya Dye PARLIAMENTARY ARCHIVIST; Citlaly Aceves M.D. The [address] [id number] Patient Name: TERRI LOWE MRN: [id number] date: 1950 Sex: M Assigned Patient Location: LAB Current Patient Location: LAB Accession/Order Number: [id number] Exam Date: 02/05/2024 15:00 Report Date: 02/05/2024 [...] Signed By: 02/05/24 165 DD/ 47 TD/TT: Biomedical Engineering Internship: Procedure Note Radiology, Radiologist, MD - 02/05/2024 [place] [address] Magnetic Resonance Report Signed Patient: TERRI LOWE R#: [id number] : 1950cct:[id number] Age/Sex: 73 / MADM Date: 02/05/24 Loc: LAB Attending Dr: Citlaly Aceves M.D. Ordering Physician: Citlaly Aceves M.D. Date of Service: 02/05/24 Procedure(s): MR head/brain wo/w con Accession Number(s): [id number] cc: Tonya Dye PARLIAMENTARY ARCHIVIST; Citllay Aceves M.D. The [place] [address] Patient Name: TERRI LOWE MRN: [facility]:[id number] date: 1950 Sex: M Assigned Patient Location: LAB Current Patient Location: LAB Accession/Order Number: [id number] Exam Date: 02/05/2024 15:00 Report Date: 02/05/2024 [...] Anthony M.D. Signed By:02/05/241650 DD/ 47 TD/TT: Biomedical Engineering Internship: us Citlaly Aceves MD IMG XR PROCEDURES Final Resul t documented in this encounter Visit Diagnoses Not on filedocumented in this encounter Care Teams Service Planner Relationship Specialty Start Date End Date Mumtaz Jensen MD [address] [place] [address] PCP - General Family Medicine 11/28/23 Tonya Dye NP [address] [place] [address] PCP - ACO Reach 11/22/24 Tonya Dye NP Referring Physician Nurse Practitioner 03/09/23 documented as of this encounter
--- OUTSIDE RECORDS SUMMARY | 2025-04-12 01:54 | XMS_ITS | Clinical Summary ---
Author Organization [employer] Address [facility] [place]-[id number] [address] [place] [address] Care Team Providers Care Saxophone Teacher Name Role Phone Tonya Dye FISH BAILER-DIRECT CASTING OPERATOR Primary Care Provider Allergies Active Allergy Reactions [...] (09/21/2021): Added automatically from request for surgery [id number] Assessment & Plan (02/08/2024 10:17 AM EDT): Arterial Duplex US RLE PVR Continue Plavix and statin. Smoking cessation. Sebaceous cyst 11/07/2019 Resolved Problems Problem Noted Date Diagnosed Date Resolved Date Coronary artery disease invo lving [place] coronary artery of [place] heart without angina pectoris 03/29/2024 03/29/2024 Encounters Date Type Department Care Team Description 03/17/2025 Telephone [facility] - Vein Care [address] [facility] [place] [address] Marie Zambrano CMA 02/26/2025 Telephone [facility] Vascular [address] [place] [address] Erika Palacios LPN 02/25/2025 Telephone [facility] Vascular [address] [place] [address] Yaneli Howell MD 02/20/2025 3:00 PM EDT Office Visit [facility] [place] [address] [place] [address] Robyn Frazier, FISH BAILER-DIRECT CASTING OPERATOR PAD (peripheral artery disease) (Primary Dx); Claudication; History of arterial bypass of lower extremity 02/20/2025 Orders Only [facility] Vascular [address] [place] [address] Dafne Jimenez [facility] Claudication; PAD (peripheral artery disease); History of arterial bypass of lower extremity 02/20/2025 Travel 02/03/2025 Orders Only [facility] Vascular [address] [facility] [address] [place] [address] Maire Zambrano [facility] Claudication; Cigarette smoker motivated to quit 01/16/2025 Telephone [facility] Vascular Surgery [address] [place] [address] Yaneli Howell MD 01/16/2025 Telephone [facility] Vascular [address] [place] [address] Yaneli Howell MD 01/13/2025 9:00 AM EDT Office Visit [facility] Cardiology [address] [place] [place] [address] Muna Persuad PA-C Moderate aortic valve stenosis (Primary Dx); Mixed hyperlipidemia 01/13/2025 Travel 01/10/2025 Telephone [facility] Cardiology [address] [place] [address] [place] [address] Tali Naidu from Last 3 Months Immunizations [...] Info) Description 04/14/2025 10:30 AM EDT Appointment [facility] - Cardiovascular [address] [place] [address] Muna Persaud PA-C [address] [place] [address] 07/15/2025 1:15 PM EDT Office Visit [facility] Cardiology [address] [facility] 1 [place] [address] Tamara Rebolledo MD [address] [place] [address] 03/04/2026 2:15 PM EDT Appointment [facility] - Vascular [address] [place] [address] Robyn Frazier, FISH BAILER-DIRECT CASTING OPERATOR [address] [facility] [place] [address] 03/04/2026 3:00 PM EDT Appointment [facility] - Vascular [address] [place] [address] Robyn Frazier, FISH BAILER-DIRECT CASTING OPERATOR [address] [facility] [place] [address] 04/02/2026 11:50 AM EDT Office Visit [facility] Vascular [place] [address] Yaneli Howell MD [address], [facility] [address] [place] [address] Health Maintenance Due Date Last Done Comments Tobacco Counseling 1950 Depression Screening 1963 Adult BMI Follow Up Plan 1969 DTaP,Tdap and Td Vaccines (1 - Tdap) 1970 Abdominal Aortic Aneurysm (A AA) Screen 2016 Fall Risk Screening 2016 Zoster (Shingles) Vaccine (3 of 3) 02/11/2023 12/17/2022, 08/26/2017 COVID-19 Vaccine (2 5 season) 2025 07/12/2024, 09/14/2023, 08/11/2022, Additional history exists Influenza Vaccine 06/16/2025 07/12/2024, , 07/27/2022, Additional history exists Adult BMI Screening 02/20/2026 02/20/2025 Tobacco Screening 02/20/2026 02/20/2025 Medical Devices Implanted Type Area Small Engine Mechanic Device Identifier Shelf Expiration Date Model / Serial / Lot Stent Vsc 6mm 40mm 130cm Dlv Sys Tamra - [id number] Implanted:Qty: 1 on 08/24/2022 by Shirin Howell MD at [facility] Stent [employer] [id number] 12/22/2023 [id number] / / [id number] Insurance MEDICARE COMMERCIAL Care Teams Saxophone Teacher Relationship Specialty Start Date End Date Tonya Dye, RAFITA-DIRECT CASTING OPERATOR PCP - General Nurse Practitioner 09/07/21
--- OUTSIDE RECORDS SUMMARY | 2025-04-12 01:54 | XMS_ITS | Encounter Summary ---
Author Organization [facility] Address [address] [place] [address] Care Team Providers Care Enginehouse Brakeman Name Role Phone Mumtaz Jensen MD Primary Care Provider [phone] Tonya Dye NP Unavailable [phone] Mumtaz Jensen MD Primary Care Provider [phone] Tonya Dye NP Unavailable [phone] Reason for Referral * Consultation (Routine) - Closed Specialty Diagnoses / Procedures Referred By Shaye francisco Referred To Contact Orthopaedic Surgery Diagnoses Bilateral hand pain Tonya Dye NP [address] [place] [address] Phone: tel: fax: Shen Luis MD Phone: tel: fax: Referral ID Status Reason Start Date Expiration Date V isits Requested Visits Authorized [id number] Closed Specialty Services Required 09/26/2023 03/24/2024 1 1 Encounter Details Date Type Department Care Team (Late st Contact Info) Description 09/26/2023 Orders Only [facility] [address] [place] [address] Tonya Dye NP [address] [place] [address] Bilateral hand pain Social History Tobacco [...] [facility] [address] [place] [address] Tonya Dye NP [address] [place] [address] 04/02/2026 11:00 AM EDT Office Visit [facility] [address] [place] [address] Tonya Dye NP [address] [place] [address] Scheduled Referrals Name Type Priority Associated Diagnoses Order Schedule Ambulatory referral to Orthopaedic Surgery Outpatient Referral Routine Bilateral hand pain Expected: 09/26/2023 (Approximate), Expires: 03/27/2024 documented as of this encounter Visit Diagnoses Diagnosis Bilateral hand pain documented in this encounter Care Teams Enginehouse Brakeman Relationship Specialty Start Date End Date Mumtaz Jensen MD PCP - General Family Medicine 10/16/22 11/27/23 Mumtaz Jensen MD [address] [place] [address] PCP - General Family Medicine 11/28/23 oTnya Dye NP [address] [place] [address] PCP - ACO Reach 11/22/24 Tonya Dye NP Referring Physician Nurse Practitioner 03/09/23 documented as of this encounter
--- OUTSIDE RECORDS SUMMARY | 2025-04-12 01:54 | XMS_ITS | Encounter Summary ---
Author Organization [facility] Address [address] [facility] [place] [address] Care Team Providers Care Lean Leader Name Role Phone Tonya Dye NP Unavailable [phone] Mumtaz Jensen MD Primary Care Provider Tonya Dye NP Unavailable [phone] Encounter Details Date Type Department Care Team (Late st Contact Info) Description 03/19/2024 Orders Only [facility] [address] [place] [address] Tonya Dye NP [address] [place] [address] Social History Tobacco Use Types Packs/Day Years [...] 06/30/2025 1:00 PM EDT [facility] [address] [place] [address] Tonya Dye NP [address] [place] [address] 04/02/2026 11:00 AM EDT Office Visit [facility] [address] [place] [address] Tonya Dye NP [address] [place] [address] documented as of this encounter Procedures Procedure Name Priority Date/Time Associated Diagnosis Comments ECHO TRANSTHORACIC W/ DOPPLER Routine 03/19/2024 10:25 AM EDT documented in this encounter Results * ECHO TRANSTHORACIC W/ DOPPLER (03/19/2024 10:25 AM EDT) Anatomical Region Laterality Modality Radiographic Mary ging us Tonya Dye TELEHEALTH COORDINATOR IMG XR PROCEDURES Final Result documented in this encounter Visit Diagnoses Not on filedocumented in this encounter Additional Health Concerns Assessment Noted Time PHQ-9 Depression Total Score: 3 02/27/20 24 11:39 AM EDT documented as of this encounter Care Teams Lean Leader Relationship Specialty Start Date End Date Mumtaz Jensen MD [address] [place] [address] PCP - General Family Medicine 11/28/23 Tonya Dye NP [address] [place] [address] PCP - ACO Reach 11/22/24 Tonya Dye NP Referring Physician Nurse Practitioner 03/09/23 documented as of this encounter
--- OUTSIDE RECORDS SUMMARY | 2025-04-12 01:54 | XMS_ITS | Encounter Summary ---
Author Organization [facility] Address [address] [place] [address] Care Team Providers Care Sales Correspondent Name Role Phone Tonya Dye NP Unavailable [phone] Mumtaz Jensen MD Primary Care Provider Tonya Dye NP Unavailable [phone] Encounter Details Date Type Department Care Team (Late st Contact Info) Description 03/13/2024 Orders Only [facility] [address] [place] [address] Tonya Dye NP [address] [place] [address] Social History Tobacco Use Types [...] [facility] [address] [place] [address] Tonya Dye NP [address] [place] [address] 04/02/2026 11:00 AM EDT Office Visit [facility] [address] [place] [address] Tonya Dye NP [address] [place] [address] documented as of this encounter Procedures [...] documented as of this encounter Care Teams Sales Correspondent Relationship Specialty Start Date End Date Mumtaz Jensen MD [address] [place] [address] PCP - General Family Medicine 11/28/23 Tonya Dye NP [address] [place] [address] PCP - ACO Reach 11/22/24 Tonya Dye NP Referring Physician Nurse Practitioner 03/09/23 documented as of this encounter
--- OUTSIDE RECORDS SUMMARY | 2025-04-12 01:54 | XMS_ITS | Encounter Summary ---
Author Organization [facility] [employer] [facility] tem Address [id number] [address] [place] [address] Care Team Providers Care Pollution Control Chemist Name Role Phone NeptaliTonya mercado Gail SURGICAL INSTRUMENT REPAIR SPECIALIST-TAKE UP OPERATOR Primary Care Provider Encounter Details Date Type Department Care Team (Late st Contact Info) Description 12/07/2021 [facility] [address] [place] [address] Ref Prov, [place] [address] Social History Tobacco Use Types Packs/Day Years [...] 04/14/2025 10:30 AM EDT Appointment [facility] - Cardiovascular [address] [place] [address] Muna Persaud PA-C [address] [place] [address] 07/15/2025 1:15 PM EDT [facility] [address] [place] [address] Tamara Rebolledo MD [address] [place] [address] 03/04/2026 2:15 PM EDT Appointment [facility] Vascular [address] [place] [address] Robyn Frazier, SURGICAL INSTRUMENT REPAIR SPECIALIST-TAKE UP OPERATOR [address] [facility] [place] [address] 03/04/2026 3:00 PM EDT Appointment [facility] Vascular [address] [place] [address] Robyn Frazier, SURGICAL INSTRUMENT REPAIR SPECIALIST-TAKE UP OPERATOR [address] [facility] [place] [address] 04/02/2026 11:50 AM EDT Office Visit [facility] [address] [place] [address] Yaneli Howell MD [address], [facility] [address] [place] [address] documented as of this encounter Procedures Procedure [...] documented as of this encounter Care Teams Pollution Control Chemist Relationship Specialty Start Date End Date Tonya Dye, RAFITA-TAKE UP OPERATOR PCP - General Nurse Practitioner 09/07/21 documented as of this encounter
--- OUTSIDE RECORDS SUMMARY | 2025-04-12 01:54 | XMS_ITS | Encounter Summary ---
Author Organization [facility] Address [address] [place] [address] Care Team Providers Care Grain Buyer Name Role Phone Tonya Dye METAL TANK BUILDER Unavailable [phone] Mumtaz Jensen MD Primary Care Provider [phone] Tonya Dye METAL TANK BUILDER Unavailable [phone] Encounter Details Date Type Department Care Team (Late st Contact Info) Description 03/12/2024 Orders Only [facility] [address] [place] [address] Social History Tobacco Use Types [...] Visit [facility] [address] [place] [address] Tonya Dye NP [address] [place] [address] 04/02/2026 11:00 AM EDT Office Visit [facility] [address] [place] [address] Tonya Dye NP [address] [place] [address] documented as of this encounter Procedures Procedure [...] Region Laterality Modality Chest Radiographic Mary ging [facility] IMG XR PROCEDURES Final Result documented in this encounter Visit Diagnoses Not on filedocumented in this encounter Additional Health Concerns Assessment Noted Time PHQ-9 Depression Total Score: 3 02/27/20 24 11:39 AM EDT documented as of this encounter Care Teams Grain Buyer Relationship Specialty Start Date End Date Mumtaz Jensen MD [address] [place] [address] PCP - General Family Medicine 11/28/23 Tonya Dye NP [address] [place] [address] PCP - ACO Reach 11/22/24 Tonya Dye NP Referring Physician Nurse Practitioner 03/09/23 documented as of this encounter
--- OUTSIDE RECORDS SUMMARY | 2025-04-12 01:54 | XMS_ITS | Encounter Summary ---
Author Organization [facility] Address [address] [place] [address] Care Team Providers Care Cafe Operator Name Role Phone Mumtaz Jensen MD Primary Care Provider [phone] Tonya Dye NNP Unavailable [phone] Mumtaz Jensen MD Primary Care Provider [phone] Tonya Dye NP Unavailable [phone] Encounter Details Date Type Department Care Team (Late st Contact Info) Description 11/26/2023 Abstract [facility] [address] [place] [address] Tonya Dye, NNP [address] [place] [address] Social History Tobacco Use Types Packs/Day Years [...] [facility] [address] [place] [address] Tonya Dye, SHIVAM [address] [place] [address] 04/02/2026 11:00 AM EDT Office Visit [facility] [address] [place] [address] Tonya Dye, SHIVAM [address] [place] [address] documented as of this encounter Visit Diagnoses Not on filedocumented in this encounter Care Teams Cafe Operator Relationship Specialty Start Date End Date Mumtaz Jensen MD PCP - General Family Medicine 10/16/22 11/27/23 Mumtaz Jensen MD [address] [place] [address] PCP - General Family Medicine 11/28/23 Tonya Dye NP [address] [place] [address] PCP - ACO Reach 11/22/24 Tonya Dye NP Referring Physician Nurse Practitioner 03/09/23 documented as of this encounter
--- OUTSIDE RECORDS SUMMARY | 2025-04-12 01:54 | XMS_ITS | Encounter Summary ---
Author Organization [facility] Address [facility]-P70591 [address] [place] [address] Care Team Providers Care Interior Design Consultant Name Role Phone Tonya Dye SENIOR NETWORK SECURITY ARCHITECT-ELECTRICAL ENGINEERING INTERN Primary Care Provider Encounter Details Date Type Department Care Team (Late st Contact Info) Description 09/08/2021 Telephone [facility] [address] [place] [address] Shirin Howell MD [address], [facility] [address] [place] [address] Social History Tobacco Use Types Packs/Day Years [...] Info) Description 04/14/2025 10:30 AM EDT Appointment [facility] - Cardiovascular [address] [place] [address] Muna Persaud PA-C [address] [place] [address] 07/15/2025 1:15 PM EDT Office Visit [facility] Cardiology [address] [address] Tamara Rebolledo MD [address] [place] [address] 03/04/2026 2:15 PM EDT Appointment [facility] Vascular [address] [place] [address] Robyn Frazier, SENIOR NETWORK SECURITY ARCHITECT-ELECTRICAL ENGINEERING INTERN [address] [facility] [place] [address] 03/04/2026 3:00 PM EDT Appointment [facility] Vascular [address] [place] [address] Robyn Frazier, SENIOR NETWORK SECURITY ARCHITECT-ELECTRICAL ENGINEERING INTERN [address] [facility] [place] [address] 04/02/2026 11:50 AM EDT Office Visit [facility] [address] [address] Yaneli Howell MD [address], [address] [address] documented as of this encounter Visit Diagnoses [...] documented as of this encounter Care Teams Interior Design Consultant Relationship Specialty Start Date End Date Tonya Dye APRN-ELECTRICAL ENGINEERING INTERN PCP - General Nurse Practitioner 09/07/21 documented as of this encounter
--- OUTSIDE RECORDS SUMMARY | 2025-04-12 01:54 | XMS_ITS | Encounter Summary ---
Author Organization [facility] Center[facility] Goods Market MobileCause Sys tem Address [id number] [address] [place] [address] Care Team Providers Care Boiling House Oiler Name Role Phone Tonya Dye DISTRIBUTOR OF DIRECTORIES-SUPERVISOR SHED WORKERS Primary Care Provider Encounter Details Date Type Department Care Team (Late Contact Info) Description 02/20/2025 Orders Only [facility] [address] [place] [address] Dafne Jimenez CMA Claudication; PAD (peripheral artery [...] Info) Description 04/14/2025 10:30 AM EDT Appointment [facility] - Cardiovascular [address] [facility] [place] [address] Muna Persaud PA-C [address] [place] [address] 07/15/2025 1:15 PM EDT Office Visit [facility] Cardiology [address] [facility] 1 [place] [address] Tamara Rebolledo MD [address] [place] [address] 03/04/2026 2:15 PM EDT Appointment [facility] [address] [place] [address] Robyn Frazier, DISTRIBUTOR OF DIRECTORIES-SUPERVISOR SHED WORKERS [address] [facility] [place] [address] 03/04/2026 3:00 PM EDT Appointment [facility] [address] [place] [address] Robyn Frazier, DISTRIBUTOR OF DIRECTORIES-SUPERVISOR SHED WORKERS [address] [facility] [place] [address] 04/02/2026 11:50 AM EDT Office Visit [facility] [address] [place] [address] Yaneli Howell MD [address], [address] [address] documented as of this encounter Procedures Procedure [...] documented as of this encounter Care Teams Boiling House Oiler Relationship Specialty Start Date End Date Tonya Dye, DISTRIBUTOR OF DIRECTORIES-SUPERVISOR SHED WORKERS PCP - General Nurse Practitioner 09/07/21 documented as of this encounter
--- OUTSIDE RECORDS SUMMARY | 2025-04-12 01:54 | XMS_ITS | Encounter Summary ---
Author Organization [facility] Address [address] [place] [address] Care Team Providers Care Child Caregiver Private Home Name Role Phone Tonya Dye SALES AND MARKETING ANALYST Unavailable [phone] Mumtaz Jensen MD Primary Care Provider Tonya Dye NP Unavailable [phone] Encounter Details Date Type Department Care Team (Late st Contact Info) Description 04/08/2025 Clinisync Result Encounter [facility] External Department Unsolicited Tonya Dye NP [address] [place] [address] Social History Tobacco Use Types Packs/Day [...] 06/30/2025 1:00 PM EDT Office Visit [facility] [address] [place] [phone] Tonya Dye NP [address] [place] [address] 04/02/2026 11:00 AM EDT Office Visit [facility] [address] [place] [phone] Tonya Dye NP [address] [place] [address] documented as of this encounter Procedures Procedure Name Priority Date/Time Associated Diagnosis Comments [facility] LIPASE Routine 04/08/2025 2:07 PM EDT [facility] CMP (CMP) (FOR REMOTE [facility] USE) Routine 04/08/2025 2:07 PM EDT ALL SED RATE Routine 04/08/2025 2:07 PM EDT ALL CBC WITH AUTO DIFF Routine 04/08/2025 2:07 PM EDT ALL AMYLASE Routine 04/08/2025 2:07 PM EDT [facility] UA (CLEAN/CATCH) MICROSCOPIC IF INDICATE Routine 04/08/2025 2:05 PM EDT documented in this encounter Results * [facility] LIPASE (04/08/2025 2:07 PM EDT) LIPASE 23.0 16.0 - 77.0 U/L TB 04/08/2025 2:07 PM EDT 04/08/2025 2:08 PM EDT Narrative [facility] - 04/08/2025 2:39 PM EDT us Tonya Dye NP CLINISYNC Final Result [facility] * ALL AMYLASE (04/08/2025 2:07 PM EDT) AMYLASE 45 25 - 115 U/L TB 04/08/2025 2:07 PM EDT 04/08/2025 2:08 PM EDT Narrative [facility] - 04/08/2025 2:39 PM EDT Tonya Dye NP CLINISYNC Final Result [facility] * (ABNORMAL) [facility] CMP (CMP) (FOR REMOTE [facility] USE) (04/08/2025 2:07 PM EDT) Pathologist [facility] SODIUM 138 136 - 145 mmol/L TBH POTASSIUM 4.2 3.5 - 5.1 mmol/L TBH CHLORIDE 102 98 - 107 mmol/L TBH CARBON DIOXIDE 28.2 21.0 - 32.0 mmol/L TBH ANION GAP 12.0 TBH GLUCOSE 119(H) 74 - 106 mg/dL TBH BLOOD UREA NITROGEN 13.0 7.0 - 18.0 mg/dL TBH CREATININE 0.70 0.70 - 1.30 mg/dL TBH TBH EGFR-AF SUDANESE >60 >=60 mL/min/1. 73m 2 TBH TBH EGFR-NON AF SUDANESE >60 >=60 mL/min/1. 73m 2 TBH BUN [...] Tonya Dye NP CLINISYNC Final Result [facility] * (ABNORMAL) ALL SED RATE (04/08/2025 2:07 PM EDT) [facility] SED RATE 21(H) <=20 mm/hr TB 04/08/2025 2:07 PM EDT 04/08/2025 2:08 PM EDT Narrative [facility]IN[facility] - 04/08/2025 2:16 PM EDT Tonya Dye NP [facility] Final [facility] ([facility] ALL CBC WITH AUTO DIFF (04/08/2025 2:07 PM EDT) [facility] WBC 8.0 4.0 - 11.0 10 3/uL TBH TB RBC 5.25 4.70 - 6.10 10 6/uL TBH TB HGB 16.5 14.0 - 18.0 g/dL TB TB HCT 48.4 42.0 - 54.0 % TBH TB MCV 92.2 80.0 - 94.0 fL TB TB MCH 31.4 25.9 - 34.0 pg TBH TB MCHC 34.1 29.9 - 35.2 g/dL TB TB RDW 13.3 11.0 - 15.0 % TBH TB PLT 216 150 - 450 10 3/uL TB TB MPV 9.3(L) 9.5 - 13.5 fL TB NEUTROPHILS PERCENT AUTO 63.9 43.0 - 75.0 % TBH LYMPHOCYTES PERCENT AUTO 23.1 20.5 - 60.0 % TBH MONOCYTES PERCENT AUTO 9.9 1.7 - 12.0 % TBH TBH EO % 2.1 0.9 - 7.0 % TBH BASOPHILS PERCENT AUTO 0.6 0.2 - 2.0 % TB IMMATURE GRANULOCYTES PCT AUTO 0.4 0.0 - [...] NP CLINISYNC Final Result Performing Organization Address City/[facility] Co de Phone Number CL[facility]NC [facility] * (ABNORMAL) [facility]H UA (CLEAN/CATCH) MICROSCOPIC IF INDICATE (04/08/2025 2:05 PM EDT) COLOR URINE LT. YELLOW YELLOW [...] Tonya Dye NP CLINISYNC Final Result [facility] documented in this encounter Visit Diagnoses Not on filedocumented in this encounter Additional Health Concerns Assessment Noted Time PHQ-9 Depression Total Score: 3 03/27/20 25 2:22 PM EDT documented as of this encounter Care Teams Child Caregiver Private Home Relationship Specialty Start Date End Date Mumtaz Jensen MD [address] [place] [address] PCP - General Family Medicine 11/28/23 Tonya Dye NP [address] [place] [address] PCP - ACO Reach 11/22/24 Tonya Dye NP Referring Physician Nurse Practitioner 03/09/23 documented as of this encounter
--- OUTSIDE RECORDS SUMMARY | 2025-04-12 01:54 | XMS_ITS | Encounter Summary ---
Author Organization [facility] Address [address] [place] [address] Care Team Providers Care Sales Estimator Name Role Phone Tonya Dye HOUSE CLEANER SUPERVISOR Unavailable [phone] Mumtaz Jensen MD Primary Care Provider Tonya Dye HOUSE CLEANER SUPERVISOR Unavailable [phone] Encounter Details Date Type Department Care Team (Late st Contact Info) Description 12/20/2023 External Result Encounter [facility] External Department Unsolicited Ranulfo Zavala, DO [address] [address] Social History Tobacco Use Types Packs/Day Years [...] Visit [facility] [address] [place] [address] Tonya Dye NP [address] [place] [phone] 04/02/2026 11:00 AM EDT Office Visit [facility] [address] [place] [phone] Tonya Dye, SHIVAM [address] [place] [address] documented as of this encounter Procedures Procedure Name Priority Date/Time Associated Diagnosis Comments ECG 12-LEAD 12/20/2023 9:29 AM EST documented in this encounter Results * ECG 12 lead (12/20/2023 9:29 AM EST) 12/20/2023 9:29 AM EST Narrative [facility] - 12/20/2023 7:44 PM EST [facility] Main [address] [address] Electrocardiograph Report Signed Patient: Darin Thacker MR#: [id number] : 1950 Acct:[id number] Age/Sex: 73 / M ADM Date: 12/20/23 Loc: Room: Type: [facility] Attending Dr: Ranulfo Zavala DO Ordering Provider: [...] in Lateral leads Confirmed by Laurent Livingston ([id number]) on 12/20/2023 7:43:38 PM Referred By: YUDI Electronically Signed By:Laurent Livingston Transcribed By: MUS Signed By Laurent Livingston MD 12/20/231942 Procedure Note Jean-Paul Livingston MD - 12/21/2023 [facility] Main [address] [address] Electrocardiograph Report Signed Patient: Darin Thacker JMR#: [id number] : 1950cct:[id number] Age/Sex: 73 / MADM Date: 12/20/23 Loc: Room:Type: [facility] Attending Dr: Ranulfo Zavala DO Ordering Provider: [...] in Lateral leads Confirmed by Laurent Livingston ([id number]) on 12/20/2023 7:43:38 PM Referred By: YUDI Electronically Signed By:Laurent Livingston Transcribed By: MUS Signed By Laurent Livingston MD 12/20/231942 us Ranulfo Zavala DO ECG ORDERABLES Final Result [address] [address], documented in this encounter Visit Diagnoses Not on filedocumented in this encounter Care Teams Sales Estimator Relationship Specialty Start Date End Date Mumtaz Jensen MD [address] [place] [address] PCP - General Family Medicine 11/28/23 Tonya Dye NP [address] [place] [address] PCP - ACO Reach 11/22/24 Tonya Dye NP Referring Physician Nurse Practitioner 03/09/23 documented as of this encounter
--- OUTSIDE RECORDS SUMMARY | 2025-04-12 01:54 | XMS_ITS | Encounter Summary ---
Author Organization [facility] Consultant [employer]place [facility] tem Address [id number] [address] [place] [address] Care Team Providers Care Stacking Machine Operator Name Role Phone NeptaliTonya mercado Gial BARREL LOADER AND CLEANER-REGIONAL SALES DIRECTOR Primary Care Provider Encounter Details Date Type Department Care Team (Late st Contact Info) Description 10/26/2021 Orders Only [facility] Cardiology [address] [place] [address] External, Scanning Provider Social History Tobacco Use [...] 04/14/2025 10:30 AM EDT Appointment [facility] - Cardiovascular [address] [place] [address] Muna Persaud PA-C [address] [place] [address] 07/15/2025 1:15 PM EDT Office Visit [facility] Cardiology [address] [place] [address] Tamara Rebolledo MD [address] [place] [address] 03/04/2026 2:15 PM EDT Appointment [facility] Vascular [address] [place] [address] Robyn Frazier, BARREL LOADER AND CLEANER-REGIONAL SALES DIRECTOR [address] [facility] [place] [address] 03/04/2026 3:00 PM EDT Appointment [facility] Vascular [address] [place] [address] Robyn Frazier, BARREL LOADER AND CLEANER-REGIONAL SALES DIRECTOR [address] [facility] [place] [address] 04/02/2026 11:50 AM EDT Office Visit [facility] [place] [address] Yaneli Howell MD [address], [address] [address] documented as of this encounter Procedures Procedure [...] documented as of this encounter Care Teams Stacking Machine Operator Relationship Specialty Start Date End Date Tonya Dye, BARREL LOADER AND CLEANER-REGIONAL SALES DIRECTOR PCP - General Nurse Practitioner 09/07/21 documented as of this encounter
--- OUTSIDE RECORDS SUMMARY | 2025-04-12 01:54 | XMS_ITS | Encounter Summary ---
Author Organization [facility] Address [address] [place] [address] Care Team Providers Care Interior Plant Caretaker Name Role Phone Tonya Dye CORRECTIONAL PROBATION OFFICER Unavailable [phone] Mumtaz Jensen MD Primary Care Provider Tonya Dye NP Unavailable [phone] Encounter Details Date Type Department Care Team (Late st Contact Info) Description 12/05/2023 Clinisync Result Encounter [facility] External Department Unsolicited Tonya Dye NP [address] [place] [phone] Social History Tobacco Use Types Packs/Day [...] 06/30/2025 1:00 PM EDT [facility] [address] [place] [phone] Tonya Dye NP [address] [place] [phone] 04/02/2026 11:00 AM EDT Office Visit [facility] [address] [place] [address] Tonya Dye, SHIVAM [address] [place] [address] documented as of this encounter Procedures Procedure Name Priority Date/Time Associated Diagnosis Comments CT SINUS WO CON 12/05/2023 1:25 PM EST MLR HEMOGLOBIN A1C Routine 12/05/2023 1: 05 PM EST documented in this encounter Results * CT SINUS WO CON (12/05/2023 1:25 PM EST) Anatomical Region Laterality Modality Other 12/05/2023 1:25 PM EST Narrative 12/05/2023 1:28 [place] [address] CT Scan Report Signed Patient: TERRI LOWE MR#: [id number] : 1950 Acct:[id number] Age/Sex: 73 / M ADM Date: 12/05/23 Loc: CT Attending Dr: Tonya Dye NP Ordering Physician: Tonya Dye NP Date of Service: 12/05/23 Procedure(s): CT sinus wo con Accession Number(s): [id number] cc: Tonya Dye NP [address] [address] Patient Name: TERRI LOWE MRN: [id number] date: 1950 Sex: M Assigned Patient Location: CT Current Patient Location: CT Accession/Order Number: [id number] Exam Date: 12/05/2023 12:53 Report Date: 12/05/2023 [...] Signed By: 12/05/23 1328 DD/ 1325 TD/TT: Social Science Analyst: Procedure Note Radiology, Radiologist, MD - 12/05/2023 [place] [address] CT Scan Report Signed Patient: TERRI LOWE JMR#: [id number] : 1950cct:[id number] Age/Sex: 73 / MADM Date: 12/05/23 Loc: CT Attending Dr: Tonya Dye NP Ordering Physician: Tonya Dye NP Date of Service: 12/05/23 Procedure(s): CT sinus wo con Accession Number(s): [id number] cc: Tonya Dye NP [facility] [place] [id number] Patient Name: TERRI LOWE MRN: [facility]:[id number] date: 1950 Sex: M Assigned Patient Location: CT Current Patient Location: CT Accession/Order Number: [id number] Exam Date: 12/05/2023 12:53 Report Date: 12/05/2023 [...] M.D. Signed By:12/05/23 1328 DD/ 1325 TD/TT: Social Science Analyst: us Tonya Dye NP [facility] IMAGING Final [...] us Tonya Dye NP [facility] Final Result [facility] documented in this encounter Visit Diagnoses Not on filedocumented in this encounter Care Teams Interior Plant Caretaker Relationship Specialty Start Date End Date Mumtaz Jensen MD [address] [place] [address] PCP - General Family Medicine 11/28/23 Tonya Dye NP [address] [place] [address] PCP - ACO Reach 11/22/24 Tonya Dye NP Referring Physician Nurse Practitioner 03/09/23 documented as of this encounter
--- OUTSIDE RECORDS SUMMARY | 2025-04-12 01:54 | XMS_ITS | Encounter Summary ---
Author Organization [facility] Address [address] [place] [address] Care Team Providers Care Planning Specialist Name Role Phone Tonya Dye SENIOR PATIENT ACCOUNT REPRESENTATIVE Unavailable [phone] Mumtaz Jensen MD Primary Care Provider [phone] Tonya Dye SENIOR PATIENT ACCOUNT REPRESENTATIVE Unavailable [phone] Encounter Details Date Type Department Care Team (Late st Contact Info) Description 04/08/2025 Orders Only [facility] [address] [place] [address] Tonya Dye, SENIOR PATIENT ACCOUNT REPRESENTATIVE [address] [place] [address] RUQ pain (Primary Dx) Social History Tobacco Use Types Packs/Day Years [...] 1:00 PM EDT Office Visit [facility] [address] [place] [address] Tonya Dye NP [address] [place] [phone] 04/02/2026 11:00 AM EDT Office Visit [facility] [address] [place] [phone] Tonya Dye NP [address] [place] [phone] Scheduled Orders Name Type Priority Associated Diagnoses Orde r Schedule US gallbladder Imaging Routine RUQ pain Expected: 04/08/2025 (Approximate), Expires: 04/08/2026 documented as of this encounter Visit Diagnoses Diagnosis RUQ pain- Primary Abdominal pain, right upper quadrant documented in this encounter Additional Health Concerns Assessment Noted Time PHQ-9 Depression Total Score: 3 03/27/20 25 2:22 PM EDT documented as of this encounter Care Teams Planning Specialist Relationship Specialty Start Date End Date Mumtaz Jensen MD [address] [place] [phone] PCP - General Family Medicine 11/28/23 Tonya Dye NP [address] [place] [phone] PCP - ACO Reach 11/22/24 Tonya Dye NP Referring Physician Nurse Practitioner 03/09/23 documented as of this encounter
--- OUTSIDE RECORDS SUMMARY | 2025-04-12 01:54 | XMS_ITS | Encounter Summary ---
Author Organization [facility] Scatter Lab [facility] tem Address [id number] [address] [place] [address] Care Team Providers Care Box Toe Cutter Name Role Phone NeptaliTonya mercado Gail LAMINATING MACHINE OFFBEARER-PSYCHIATRIC RN Primary Care Provider Encounter Details Date Type Department Care Team (Late st Contact Info) Description 08/17/2021 Orders Only [facility] [address] [place] [address] Ref Prov, [place] [address] Social History Tobacco Use Types Packs/Day Years [...] Info) Description 04/14/2025 10:30 AM EDT Appointment [facility] - Cardiovascular [address] [place] [phone] Muna Persaud PA-C [address] [place] [address] 07/15/2025 1:15 PM EDT Office Visit [facility] Cardiology [address] [facility] 1 [place] [address] Tamara Rebolledo MD [address] [place] [address] 03/04/2026 2:15 PM EDT Appointment [facility] Vascular [address] [place] [address] Robyn Frazier, LAMINATING MACHINE OFFBEARER-PSYCHIATRIC RN [address] [facility] [place] [address] 03/04/2026 3:00 PM EDT Appointment [facility] Vascular [address] [place] [address] Robyn Frazier, LAMINATING MACHINE OFFBEARER-PSYCHIATRIC RN [address] [facility] [place] [address] 04/02/2026 11:50 AM EDT Office Visit [facility] [address] [place] [address] Yaneli Howell MD [address], [address] [address] documented as of this encounter Procedures Procedure [...] documented as of this encounter Care Teams Box Toe Cutter Relationship Specialty Start Date End Date Tonya Dye APRN-PSYCHIATRIC RN PCP - General Nurse Practitioner 09/07/21 documented as of this encounter
--- OUTSIDE RECORDS SUMMARY | 2025-04-12 01:54 | XMS_ITS | Encounter Summary ---
Author Organization [facility] [employer] [facility] tem Address [id number] [address] [place] [address] Care Team Providers Care Electric Deicer Assembler Name Role Phone NeptaliTonya mercado Gail PHYSICAL SCIENCES PROFESSOR-POULTRY INSEMINATOR Primary Care Provider Encounter Details Date Type Department Care Team (Late st Contact Info) Description 03/27/2024 Orders Only [facility] Cardiology [address] [address] External, Scanning Provider Social History [...] Description 04/14/2025 10:30 AM EDT Appointment [facility] - Cardiovascular [address] [place] [address] Muna Persaud PA-C [address] [place] [address] 07/15/2025 1:15 PM EDT Office Visit [facility] Cardiology [address] [facility] 1 [place] [address] Tamara Rebolledo MD [address] [place] [address] 03/04/2026 2:15 PM EDT Appointment [facility] - Vascular [address] [place] [address] Robyn Frazier, PHYSICAL SCIENCES PROFESSOR-POULTRY INSEMINATOR [address] [facility] [place] [address] 03/04/2026 3:00 PM EDT Appointment [facility] - Vascular [address] [facility] [place] [address] Robyn Frazier, PHYSICAL SCIENCES PROFESSOR-POULTRY INSEMINATOR [address] [facility] [place] [address] 04/02/2026 11:50 AM EDT Office Visit [facility] Vascular [place] [address] [place] [address] Yaneli Howell MD [address], [facility] [address] [place] [address] documented as of this encounter Procedures Procedure [...] ASSESSMENTS F inal Result Performing Organization Address [facility] de Phone Number MANUALLY TRANSCRIBED RESULTS * X-ray chest 2 views (03/27/2024 11:31 AM EDT) Anatomical Region Laterality Modality Body, Chest N/A Computed Radiogr aphy us Scanning Provider External IMG DIAGNOSTIC IMAGIN G ORDERABLES Final Result * ECG 12 lead (03/27/2024 11:30 AM EDT) us Scanning Provider External ECG ORDERABLES Final Result Performing Organization Address [facility] Phone Number MANUALLY TRANSCRIBED RESULTS * Echo complete W/ contrast (03/27/2024 11:27 AM EDT) Anatomical Region Laterality Modality Chest N/A Ultrasound us Scanning Provider External CV ECHO ORDERABLES Fi nal Result * ECG 12 lead (03/27/2024 11:21 AM EDT) us Scanning Provider External ECG ORDERABLES Final Result Performing Organization Address [facility] Phone Number MANUALLY TRANSCRIBED RESULTS documented in this encounter Visit Diagnoses Not on filedocumented in this encounter Additional Health Concerns Assessment Noted Time A Body Mass Index follow-up plan has been documented for the patient 11/14/2019 2:01 PM EST documented as of this encounter Care Teams Electric Deicer Assembler Relationship Specialty Start Date End Date Tonya Dye, PHYSICAL SCIENCES PROFESSOR-POULTRY INSEMINATOR PCP - General Nurse Practitioner 09/07/21 documented as of this encounter
--- OUTSIDE RECORDS SUMMARY | 2025-04-12 01:54 | XMS_ITS | Encounter Summary ---
Author Organization [facility] Address [address] [place] [address] Care Team Providers Care Personal Care Home Administrator Name Role Phone Tonya Dye NP Unavailable [phone] Mumtaz Jensen MD Primary Care Provider Tonya Dye NP Unavailable [phone] Encounter Details Date Type Department Care Team (Late Contact Info) Description 04/08/2025 Bamboo flowsheet [facility] [address] [place] [address] Tonya Dye NP [address] [place] [address] Social History Tobacco Use Types Packs/Day Years [...] 06/30/2025 1:00 PM EDT Office Visit [facility] [address] [place] [address] Tonya Dye, SHIVAM [address] [place] [address] 04/02/2026 11:00 AM EDT Office Visit [facility] [address] [place] [phone] Tonya Dye NP [address] [place] [address] documented as of this encounter Visit Diagnoses Not on filedocumented in this encounter Additional Health Concerns Assessment Noted Time PHQ-9 Depression Total Score: 3 03/27/20 25 2:22 PM EDT documented as of this encounter Care Teams Personal Care Home Administrator Relationship Specialty Start Date End Date Mumtaz Jensen MD [address] [place] [address] PCP - General Family Medicine 11/28/23 Tonya Dye NP [address] [place] [phone] PCP - ACO Reach 11/22/24 Tonya Dye NP Referring Physician Nurse Practitioner 03/09/23 documented as of this encounter
--- OUTSIDE RECORDS SUMMARY | 2025-04-12 01:54 | XMS_ITS | Encounter Summary ---
Author Organization [facility] Address [address] [place] [address] Care Team Providers Care Adjunct Faculty Mathematics Department Name Role Phone Tonya Dye TINSMITH HELPER Unavailable [phone] Mumtaz Jensen MD Primary Care Provider Tonya Dye TINSMITH HELPER Unavailable [phone] Encounter Details Date Type Department Care Team (Late st Contact Info) Description 02/05/2024 Abstract [facility] [address] [place] [address] Sofia Hernandez MA Social History Tobacco Use [...] Visit [facility] [address] [place] [address] Tonya Dye NP [address] [place] [address] 04/02/2026 11:00 AM EDT Office Visit [facility] [address] [place] [address] Tonya Dye NP [address] [place] [address] documented as of this encounter Visit Diagnoses Not on filedocumented in this encounter Care Teams Adjunct Faculty Mathematics Department Relationship Specialty Start Date End Date Mumtaz Jensen MD [address] [place] [address] PCP - General Family Medicine 11/28/23 Tonya Dye NP [address] [place] [address] PCP - ACO Reach 11/22/24 Tonya Dye NP Referring Physician Nurse Practitioner 03/09/23 documented as of this encounter
--- OUTSIDE RECORDS SUMMARY | 2025-04-12 01:54 | XMS_ITS | Encounter Summary ---
Author Organization [facility] Address [id number] [address] [place] [address] Care Team Providers Care Lead Cashier Name Role Phone NeptaliTonya mercado Gail OFFICE MACHINE MECHANIC-CROSSBAR FRAME WIRER Primary Care Provider Encounter Details Date Type Department Care Team (Late st Contact Info) Description 05/27/2021 Orders Only [facility] [address] [place] [address] Ref Prov, [place] [address] Social History Tobacco Use Types Packs/Day Years [...] Hospital - Cardiovascular [address] [place] [address] Muna Persaud PA-C [address] [place] [address] 07/15/2025 1:15 PM EDT Office Visit [facility] [address] [place] [address] Tamara Rebolledo MD [address] [place], [place] [address] 03/04/2026 2:15 PM EDT Appointment [facility] Vascular [address] [place] [address] Robyn Frazier, OFFICE MACHINE MECHANIC-CROSSBAR FRAME WIRER [address] [facility] [place] [address] 03/04/2026 3:00 PM EDT Appointment [facility] Vascular [address] [place] [address] Robyn Frazier, OFFICE MACHINE MECHANIC-CROSSBAR FRAME WIRER [address] [facility] [place] [address] 04/02/2026 11:50 AM EDT Office Visit [facility] [address] [place] [address] Yaneli Howell MD [address], [address] [place] [address] documented as of this encounter Procedures Procedure [...] documented as of this encounter Care Teams Lead Cashier Relationship Specialty Start Date End Date Tonya Dye APRN-CROSSBAR FRAME WIRER PCP - General Nurse Practitioner 09/07/21 documented as of this encounter
--- OUTSIDE RECORDS SUMMARY | 2025-04-12 01:54 | XMS_ITS | Encounter Summary ---
Author Organization [facility] tem Address [facility][id number] [address] [place] [address] Care Team Providers Care Curriculum Specialist Name Role Phone Tonya Dye SOLAR ENGINEER-CERTIFIED COURT/MEDICAL INTERPRETER Primary Care Provider Encounter Details Date Type Department Care Team (Late st Contact Info) Description 02/03/2025 Orders Only [facility] [address] [facility] [address] [place] [address] Marie Zambrano CMA Claudication; Cigarette smoker motivated [...] Center - Cardiovascular [address] [place] [address] Muna Persaud PA-C [address] [place] [address] 07/15/2025 1:15 PM EDT Office Visit [facility] Cardiology [address] [facility] 1 [place] [address] Tamara Rebolledo MD [address] [place] [address] 03/04/2026 2:15 PM EDT Appointment [facility] Vascular [address] [facility] [place] [address] Robyn Frazier, SOLAR ENGINEER-CERTIFIED COURT/MEDICAL INTERPRETER [address] [facility] [place] [address] 03/04/2026 3:00 PM EDT Appointment [facility] [address] [place] [facility] [place] [place] [address] Robyn Frazier, SOLAR ENGINEER-CERTIFIED COURT/MEDICAL INTERPRETER [address] [facility] [place] [address] 04/02/2026 11:50 AM EDT Office Visit [facility] [address] [place] [address] Yaneli Howell MD [address], [address] [address] documented as of this encounter Visit Diagnoses Diagnosis Claudication Unspecified peripheral vascular disease Cigarette smoker motivated to quit documented in this encounter Additional Health Concerns Assessment Noted Time A Body Mass Index follow-up plan has been documented for the patient 11/14/2019 2:01 PM EST documented as of this encounter Care Teams Curriculum Specialist Relationship Specialty Start Date End Date Tonya Dye, SOLAR ENGINEER-CERTIFIED COURT/MEDICAL INTERPRETER PCP - General Nurse Practitioner 09/07/21 documented as of this encounter
--- OUTSIDE RECORDS SUMMARY | 2025-04-12 01:54 | XMS_ITS | Encounter Summary ---
Author Organization [facility] Address [id number] [address] [place] [address] Care Team Providers Care Plant Production Worker Name Role Phone Tonya Dye PHYSICAL SCIENCE TEACHER-YARN EXAMINER SKEINS Primary Care Provider Encounter Details Date Type Department Care Team (Late st Contact Info) Description 01/24/2024 Orders Only [facility] [address] [place] [address] Dafne Jimenez CMA PAD (peripheral artery disease) ([facility]); Obesity (BMI 30.0-34.9); Claudication ([facility]) Social History Tobacco Use Types [...] 10:30 AM EDT Appointment [facility] Cardiovascular [address] [place] [address] Muna Persaud PA-C [address] [place] [address] 07/15/2025 1:15 PM EDT Office Visit [facility] Cardiology [address] [facility] 1 [place] [address] Tamara Rebolledo MD [address] [place] [address] 03/04/2026 2:15 PM EDT Appointment [facility] V[facility] [address] [place] [address] Robyn Frazier, PHYSICAL SCIENCE TEACHER-YARN EXAMINER SKEINS [address] [facility] [place] [address] 03/04/2026 3:00 PM EDT Appointment [facility] Vascular [facility] S [facility] [place] [address] Robyn Frazier, PHYSICAL SCIENCE TEACHER-YARN EXAMINER SKEINS [address] [facility] [place] [address] 04/02/2026 11:50 AM EDT Office Visit [facility] [address] [place] [address] Yaneli Howell MD [address], [address] [address] documented as of this encounter Visit Diagnoses Diagnosis PAD (peripheral artery disease) Unspecified peripheral vascular disease Obesity (BMI 30.0-34.9) Claudication Unspecified peripheral vascular disease documented in this encounter Additional Health Concerns Assessment Noted Time A Body Mass Index follow-up plan has been documented for the patient 11/14/2019 2:01 PM EST documented as of this encounter Care Teams Plant Production Worker Relationship Specialty Start Date End Date Tonya Dye APRN-YARN EXAMINER SKEINS PCP - General Nurse Practitioner 09/07/21 documented as of this encounter
--- OUTSIDE RECORDS SUMMARY | 2025-04-12 01:54 | XMS_ITS | Encounter Summary ---
Author Organization [facility] Address [address] [place] [address] Care Team Providers Care Channel Marketing Specialist Name Role Phone Tonya Dye AMPLIFIER MECHANIC Unavailable [phone] Mumtaz Jensen MD Primary Care Provider [phone] Tonya Dye AMPLIFIER MECHANIC Unavailable [phone] Encounter Details Date Type Department Care [...] Visit [facility] [address] [place] [address] Tonya Dye, AMPLIFIER MECHANIC [address] [place] [address] 04/02/2026 11:00 AM EDT Office Visit [facility] [address] [place] [address] Tonya Dey NP [address] [place] [address] documented as of this encounter Procedures Procedure Name Priority Date/Time Associated Diagnosis Comments SEGMENTAL BLOOD PRESSURE 01/23/2024 2:35 PM EDT documented in this encounter Results * SEGMENTAL BLOOD PRESSURE (01/23/2024 2:35 PM EDT) Anatomical Region Laterality Modality Radiographic Mary ging 01/23/2024 2:35 PM EDT Narrative 01/23/2024 11:21 PM EDT [address] [address] Cardiology Report Signed Patient: TERRI LOWE MR#: [id number] : 1950 Acct:[id number] Age/Sex: 73 / M ADM Date: 01/23/24 Loc: CARD Attending Dr: OMID RICKS Ordering Physician: OMID RICKS Date of Service: 01/23/24 Procedure(s): CA segmental UE or LE AIMEE Accession Number(s): [id number] cc: OMID RICKS ; Tonya Dye NP [facility] Test Date: 2024-01-23 Pat Name: TERRI LOWE Department: Room: - Gender: Male [employer]: : 1950 Requested By: OMID RICKS Order Number: [id number] Reading MD: HARRISON GODDARD Interpretive Statements Monophasic [...] D.O. Signed By: 01/23/24232001/23/242320 DD/ 1435 TD/TT: Byproducts Extractor: Procedure Note Radiology, Radiologist, - 01/23/2024 [place] [address] Cardiology Report Signed Patient: TERRI LOWE JMR#: [id number] : 1950cct:[id number] Age/Sex: 73 / MADM Date: 01/23/24 Loc: CARD Attending Dr: OMID RICKS Ordering Physician: OMID RICKS Date of Service: 01/23/24 Procedure(s): CA segmental UE or LE AIMEE Accession Number(s): [id number] cc: OMID RICKS ; Tonya Dye NP [facility] Test Date: 2024-01-23 Pat Name: TERRI LOWE Department: Room: - Gender: Male [employer]: : 1950 Requested By: OMID RICKS Order Number: [id number] Reading MD: HARRISON GODDARD Interpretive Statements Monophasic [...] Goddard D.O. Signed By:01/23/24232001/23/242320 DD/ 1435 TD/TT: Byproducts Extractor: us Generic External Data Provider IMG XR PROCEDURES Final Result documented in this encounter Visit Diagnoses Not on filedocumented in this encounter Care Teams Channel Marketing Specialist Relationship Specialty Start Date End Date Mumtaz Jensen MD [address] [place] [address] PCP - General Family Medicine 11/28/23 Tonya Dye NP [address] [place] [address] PCP - ACO Reach 11/22/24 Tonya Dye NP Referring Physician Nurse Practitioner 03/09/23 documented as of this encounter
--- OUTSIDE RECORDS SUMMARY | 2025-04-12 01:54 | XMS_ITS | Encounter Summary ---
Author Organization [facility] Address [id number] [address] [place] [address] Care Team Providers Care Neonatal Doctor Name Role Phone HardikTonya Gail BLACKSMITH HAMMER OPERATOR-TRACTOR OPERATOR HELPER Primary Care Provider Encounter Details Date Type Department Care Team (Late st Contact Info) Description 02/25/2025 Telephone [facility] [address] [place] [address] Yaneli Howell MD [address], [facility] [address] [place] [address] Social History Tobacco Use Types Packs/Day Years [...] will call him with an update at [phone] Thank you. *Brad LUNA is out, sending [...] 02/25/2025 11:22 AM EDT Pt calling into web content writer to voice concerns about test results given. The results he's looking for arefrom a month ago and not 09/08. Please advise [phone] * Telephone Encounter - Erika Palacios LPN - 02/25/2025 11:22 AM EDT Applied Mathematician left patient a vmm to call the [...] Info) Description 04/14/2025 10:30 AM EDT Appointment [facility] - Cardiovascular [address] [place] [address] Muna Persaud PA-C [address] [place] [address] 07/15/2025 1:15 PM EDT Office Visit [facility] [address] [facility] 1 [place] [address] Tamara Rebolledo MD [address] [place] [address] 03/04/2026 2:15 PM EDT Appointment [facility] - Vascular [address] [place] [address] Robyn Frazier, BLACKSMITH HAMMER OPERATOR-TRACTOR OPERATOR HELPER [address] [facility] [place] [address] 03/04/2026 3:[address] [facility] Vascular [address] [place] [address] Robyn Frazier, BLACKSMITH HAMMER OPERATOR-TRACTOR OPERATOR HELPER [address] [facility] [place] [address] 04/02/2026 11:50 AM EDT Office Visit [facility] [place] [address] Yaneli Howell MD [address], [address] [address] documented as of this encounter Visit Diagnoses Not on filedocumented in this encounter Additional Health Concerns Assessment Noted Time A Body Mass Index follow-up plan has been documented for the patient 11/14/2019 2:01 PM EST documented as of this encounter Care Teams Neonatal Doctor Relationship Specialty Start Date End Date Tonya Dye, RAFITA-TRACTOR OPERATOR HELPER PCP - General Nurse Practitioner 09/07/21 documented as of this encounter
--- OUTSIDE RECORDS SUMMARY | 2025-04-12 01:55 | XMS_ITS | Referral Summary ---
Author Organization [facility] Address [address] [place] [address] Care Team Providers Care Steel Sash Erector Name Role Phone Unavailable Primary Care Provider [...]
--- OUTSIDE RECORDS SUMMARY | 2025-04-12 01:55 | XMS_ITS | CCD ---
Author Organization [facility] Care Team Providers Care Laboratory Geneticist Name Role Phone Ava Luis Unavailable Ninfa Krishna Unavailable TONYA DYE Primary Care Physician Bernadine SARAVIA Attending Unavailable TONYA DYE Referring Unavailblayne e Bernadine SARAVIA Attending Unavailable AICHBRETT, TONYA Reynolds Referring Unavailabl e Bernadine SARAVIA Attending Unavailable Bernadine SARAVIA Attending Unavailable AICHHOLZ, FIRE EATER TONYA Consulting Unavailable AICHHOLZ, FIRE EATER TONYA Primary Care Unavailable AICHHOLZ, FIRE EATER TONYA Attending Unavailable AICHHOLZ, FIRE EATER TONYA Admitting Unavailable AICHHOLZ, FIRE EATER TONYA Consulting Unavailable AICHHOLZ, FIRE EATER TONYA Primary Care Unavailable AICHHOLZ, FIRE EATER TONYA Attending Unavailable AICHHOLZ, FIRE EATER TONYA Admitting Unavailable ZIMARGARITO, DR BHAVANA Pinzon Consulting Unavailable MILLICENT, DR ANNE Consulting Unavailable AICHHOLZ, FIRE EATER TONYA Primary Care Unavailable ABBAS, DR ANNE Attending Unavailable ABBVICKY, DR ANNE Admitting Unavailable ZIEBER, DR BHAVANA Pinzon Consulting Unavailable KEISHA ., MR KRISHNA Consulting Unavailable AICHHOLZ, FIRE EATER TONYA Primary Care Unavailable VALDES ., MR KRISHNA Attending Unavailable VALDES ., MR KRISHNA Admitting Unavailable AICHHOLZ, FIRE EATER TONYA Consulting Unavailable AICHHOLZ, FIRE EATER TONYA Primary Care Unavailable AICHHOLZ, FIRE EATER TONYA Attending Unavailable AICHHOLZ, FIRE EATER TONYA Admitting Unavailable PRIETO, DR BHAVANA Pinzon Consulting Unavailable CARLOS, DR IRENE Pinzon Procedure Practitioner Unavaila DR IRENE Yang Consulting Unavailable FAWWAD, TODD H Attending Unavailable VICKIEWWAOrlin, TODD H Admitting Unavailable AICHHOLZ, FIRE EATER TONYA Primary Care Unavailable CHIO ., DR BERNADINE Pink Consulting Unavaila rg BARROSO ., DR BERNADINE Pink Procedure Practitioner U IAN Caputo Consulting Unavailable FAWMIKHAILD, TODD H Consulting Unavailable SID KWONG Consulting Unavailable BHAVANA MCCANN Consulting Unavailable NILL ., DR COLINDRES Consulting Unavailable AICHHOLZ, FIRE EATER TONYA Primary Care Unavailable NILL ., DR COLINDRES Attending Unavailable NILL ., DR COLINDRES Admitting Unavailable DASHA JOINER Consulting Unavailable AICHHOLZ, FIRE EATER TONYA Primary Care Unavailable NILL ., DR COLINDRES Attending Unavailable NILL ., DR COLINDRES Admitting Unavailable CARLOS, DR IRENE Pinzon Consulting Unavailable GONZALEZ, DR IRENE Pinzon Attending Unavailable GONZALEZ, DR IRENE Pinzon Admitting Unavailable AICHHOLZ, FIRE EATER TONYA Primary Care Unavailable ROSARIO BLANCO Consulting Unavailable AICHHOLZ, FIRE EATER TONYA Consulting Unavailable AICHHOLZ, FIRE EATER TONYA Primary Care Unavailable AICHHOLZ, FIRE EATER TONYA Attending Unavailable AICHHOLZ, FIRE EATER TONYA Admitting Unavailable AICHHOLZ, FIRE EATER TONYA Consulting Unavailable AICHHOLZ, FIRE EATER TONYA Primary Care Unavailable AICHHOLZ, FIRE EATER TONYA Attending Unavailable AICHHOLZ, FIRE EATER TONYA Admitting Unavailable AICHHOLZ, FIRE EATER TONYA Consulting Unavailable AICHHOLZ, FIRE EATER TONYA Primary Care Unavailable AICHHOLZ, FIRE EATER TONYA Attending Unavailable AICHHOLZ, FIRE EATER TONYA Admitting Unavailable MILLICENT, DR ANNE Consulting Unavailable AICHHOLZ, FIRE EATER TONYA Primary Care Unavailable MILLICENT, DR ANNE Attending Unavailable MILLICENT, DR ANNE Admitting Unavailable ROSALINE, DR BINDU Brown Consulting Unavailable AICHHOLZ, FIRE EATER TONYA Primary Care Unavailable AICHHOLZ, FIRE EATER TONYA Attending Unavailable AICHHOLZ, FIRE EATER TONYA Admitting Unavailable AICHHOLZ, FIRE EATER TONYA Consulting Unavailable Aichholz, Tonya J Primary Care Provider MD Ava Luis Attending Provider Aichholz SPECIAL DELIVERY MESSENGER, Tonya Unavailable Mumtaz Jensen MD Primary Care Provider [phone] Ranulfo Zavala Attending Unavailable Aichholz, Tonya J Primary Care Unavailable Ranulfo Zavala Admitting Unavailable Ava Luis Admitting Unavailable Ava Luis Attending Unavailable Aichholz, Tonya J Primary Care Unavailable Ranulfo Zavala Admitting Unavailable Ranulfo Zavala Attending Unavailable Aichholz, Tonya J Primary Care Unavailable LEAH SALGADO Attending Unavailable LEAH SALGADO Referring Unavailable AICHHOLZ, TONYA J Primary Care Unavailable Aichholz SPECIAL DELIVERY MESSENGER, Tonya Unavailable Aichholz MIXER PIGMENT-FIRE EATER, Tonya J Primary Care Provider Aichholz MIXER PIGMENT-FIRE EATER, Tonya J Primary Care Provider LEAH SALGADO Attending Unavailable AICHHOLZ, TONYA J Referring Unavailable AICHHOLZ, TONYA J Primary Care Unavailable AVA LAW Attending Unavailable AICHHOLZ, TONYA J Referring Unavailable AICHHOLZ, TONYA J Primary Care Unavailable VANESSA PERSAUD Attending Unavailable AICHHOLZ, TONYA J Referring Unavailable AICHHOLZ, TONYA J Primary Care Unavailable Aichholz SPECIAL DELIVERY MESSENGER, Tonya Unavailable JESSICA MÉNDEZ Attending Unavailable AICHHOLZ, TONYA J Referring Unavailable AICHHOLZ, TONYA J Primary Care Unavailable AICHHOLZ, TONYA Attending Unavailable AICHHOLZ, TONYA Attending Unavailable AICHHOLZ, TONYA Attending Unavailable AICHHOLZ, TONYA Attending Unavailable AICHHOLZ, TONYA Attending Unavailable AICHHOLZ, TONYA Attending Unavailable Allergies Allergy Classification Reported Allergen(s) Allergy Type Date of Onset Reaction(s) Facility (20 sources) Ciprofloxacin; Translations: [ciprofloxacin] Drug Allergy 03-14-20 21 Itching (finding), Unknown, Hives [facility] (20 sources) liraglutide; Translations: [liraglutide] Drug Allergy 11-07-19 20 Itching (finding) General [facility] (4 sources) liraglutide; Translations: [Victoza] Drug Allergy 03-26-20 22 rash [facility] Repository (7 sources) Penicillin; Translations: [penicillin] Drug Allergy Itching (finding) General Surgery [facility] (5 sources) Penicillin V Drug Allergy Unknown [facility] Other (8 sources) Pollen Propensity to adverse reactions Unknown VeriTran Other (20 sources) Cefaclor; Translations: [cefaclor] Drug Allergy 09-19-20 Itching (finding) General Surgery [place] (2 sources) Ciprofloxacin; Translations: [Cipro] Drug Allergy 04-30-20 [facility] Repository (1 source) Cefaclor Drug Allergy [facility] Repository (1 source) dulaglutide Drug Allergy 03-26-20 22 [facility] (1 source) insulin aspart, human Drug Allergy 03-27-20 22 [facility] (1 source) Penicillin Drug Allergy 03-26-20 22 [facility] (19 sources) Penicillins; Translations: [Penicillins] Allergy to substance 11-07-19 18 Itching [facility] (20 sources) dulaglutide; Translations: [DULAGLUTIDE] Drug Allergy 11-05-19 Unknown [facility] (20 sources) liraglutide Drug Allergy 03-09-20 23 Unknown [facility] (20 sources) Penicillin G Drug Allergy 03-09-20 23 Unknown [facility] (1 source) Cefaclor Drug Allergy 12-27-19 [facility] Repository (1 source) Ciprofloxacin Drug Allergy 12-27-19 [facility] (1 source) dulaglutide Drug Allergy 12-27-19 [facility] Repository (1 source) liraglutide Drug Allergy 12-27-19 [facility] Repository (1 source) Pollen Drug allergy (disorder) 12-27-19 [facility] Repository (14 sources) dulaglutide Drug Allergy 11-05-19 22 GI Disturbance [facility] Medications Current Medications Medication Drug Class(es) Dates Sig (Normalized) Sig (Original) [id number] 200 actuat albuterol 0.09 mg/actuat metered dose inhaler (20 sources) beta2-Adrenergic Agonist Start: 03-12-2024 take 2 puff(s) by inhalation every four hours for wheezing Ventolin HFA 108 (90 Base) MCG/ACT inhaler Inhale 2 puffs every 4 (four) hours if needed for wheezing or shortness of breath 03/12/2024 Active amLODIPine 5 mg oral tablet (20 sources) Dihydropyridine Calcium Channel Shima Start: 09-25-2019 End: 06-01-2025 take 1 tablet by mouth once daily amLODIPine (Norvasc) 5 MG tablet Indications: Primary hypertension Take 1 tablet (5 mg) by mouth Daily 90 tablet 1 03/03/2025 06/01/2025 Active aspirin 81 mg delayed release oral [...] Status: Ordered clopidogrel 75 mg oral tablet (20 sources) [id number] Platelet Inhibitor Start: 03-09-2021 End: 02-18-2025 take 1 tablet by mouth once daily clopidogrel (Plavix) 75 MG tablet Take 75 mg by mouth Daily 01/19/2025 Active dapagliflozin 10 mg oral tablet (20 sources) Sodium-Glucose Cotransporter 2 Inhibitor Start: 12-19-2022 End: 06-01-2025 take 1 tablet by mouth once daily dapagliflozin (Farxiga) 10 MG Indications: Uncontrolled type 2 diabetes mellitus with hyperglycemia (HCC) Take 1 tablet (10 mg) by mouth Daily 90 tablet 1 03/03/2025 06/01/2025 Active Start: 08-24-2022 take 1 tablet by mitali th once daily Farxiga 5 mg oral tablet 5 mg = 1 tab(s), Oral, Daily, Refills(s) 0 Start Date: 08/24/22 Status: Ordered doxycycline hyclate 100 mg oral tablet (2 sources) Tetracycline-class Drug Start: 01-29-2025 End: 02-05-2025 take 1 tablet by mouth in the morning doxycycline (Vibra-Tabs) 100 MG tablet Indications: Acute non-recurrent sinusitis of other sinus Take 1 tablet (100 mg) by mouth in the morning and 1 tablet (100 mg) before bedtime. Do all this for 7 days. Take with a full glass of water and do not lie down for at least 30 minutes after. 14 tablet 01/29/2025 02/05/2025 Active ferrous sulfate 325 mg delayed release oral tablet (20 sources) Start: 08-24-2022 take 1 tablet by mouth twice daily ferrous sulfate 325 mg oral enteric coated tablet 325 mg = 1 tab(s), Oral, BID, Refills(s) 0 Start Date: 08/24/22 Status: Ordered take 1 tablet by mitali th once daily at breakfast ferrous sulfate 325 (65 FE) mg tablet Ta ke 1 tablet (325 mg total) by mouth daily with breakfast. Active Flonase 0.05 mg/inh nasal spray (1 source) Start: 08-24-2022 Flonase 0.05 m g/inh nasal spray 2 spray(s), Nasal, Daily, Refill(s) 0 Start Date: 08/24/22 Status: Ordered fluticasone propionate 0.05 mg/actuat metered dose nasal spray (20 sources) Corticosteroid Start: 11-20-2024 End: 06-01-2025 take 2 spray(s) nasal route once daily fluticasone (Flonase) 50 MCG/ACT nasal spray Indications: Allergic rhinitis, unspecified seasonality, unspecified trigger Administer 2 sprays into each nostril Daily Shake gently. Before first use, prime pump. After use, clean tip and replace cap. 48 g 2 03/03/2025 06/01/2025 Active Start: 05-12-2023 End: 11-20-2024 fluticasone (Flonase) 50 MCG /ACT nasal spray 05/12/2023 11/20/2024 Discontinued (Reorder) Start: 08-24-2022 Flonase 0.05 m g/inh nasal [...] day for 10 day(s) PRN Jun, Not-Taking Start: 11-07-2017 take 2 spray(s) nasa l route once daily fluticasone (FLONASE) 50 mcg/actuation nasal spray Indications: Obstruction of paranasal sinus Administer 2 sprays into each nostril daily. 16 g 11 11/07/2017 Active gabapentin 600 mg oral tablet (20 sources) Anti-epileptic Agent Start: 01-16-2024 End: 03-03-2025 gabapentin (Neurontin) 600 MG tablet Indications: Diabetic polyneuropathy associated with type 2 diabetes mellitus (HCC) 1 am , 1 in the afternoon, and 2 at bedtime 360 tablet 1 03/03/2025 Active Start: 08-24-2022 gabapentin (Ne urontin) 400 MG capsule as directed, Refills(s) 0 0 08/24/2022 Active Start: 03-09-2021 take 300 mg by mouth four times daily Gabapentin Active 300 MG PO Four times daily March 08, 2021 11:00pm gabapentin (NEUR ONTIN) 300 mg capsule Take 2 capsules (600 mg total) by mouth in the morning and 2 capsules (600 mg total) at noon and 2 capsules (600 mg total) in the evening and 2 capsules (600 mg total) before bedtime. Active gabapentin (NEUR ONTIN) 300 mg capsule Take 400 mg by mouth in the morning and 400 mg at noon and 400 mg in the evening and 400 mg before bedtime. Active take 1 capsule by [facility] every eight hours Gabapentin 300 MG 1 capsule Orally three times a day for 90 days Active glipiZIDE 10 mg oral tablet (20 sources) Sulfonylurea Start: 03-09-2021 End: 06-01-2025 take 1 tablet by mouth in the morning glipiZIDE (Glucotrol) 10 MG tablet Indications: Uncontrolled type 2 diabetes mellitus with hyperglycemia (HCC) Take 1 tablet (10 mg) by mouth in the morning and 1 tablet (10 mg) in the evening. Take before meals. 180 tablet 1 03/03/2025 06/01/2025 Active take 1 tablet by mitali th twice daily 30 minutes before lunch glipiZIDE 10 mg TAKE 1 TABLET 30 MINUTES BEFORE LUNCH AND DINNER Orally twice a day for 90 day(s) Active metFORMIN hydrochloride 1000 mg oral tablet (20 sources) Biguanide Start: 08-31-2017 End: 06-01-2025 take 1 tablet by mouth in the morning metFORMIN (Glucophage) 1000 MG tablet Indications: Uncontrolled type 2 diabetes mellitus with hyperglycemia (HCC) Take 1 tablet (1,000 mg) by mouth in the morning and 1 tablet (1,000 mg) in the evening. Take with meals. 180 tablet 1 03/03/2025 06/01/2025 Active metoprolol tartrate 50 mg oral tablet (20 sources) beta-Adrenergic Shima Start: 08-29-2017 End: 06-01-2025 take 1 tablet by mouth in the morning metoprolol tartrate (Lopressor) 50 MG tablet Indications: Primary hypertension , PAD (peripheral artery disease) Take 1 tablet (50 mg) by mouth in the morning and 1 tablet (50 mg) before bedtime. Take 50 mg by mouth. 180 tablet 1 03/03/2025 06/01/2025 Active Start: 08-29-2017 take 50 mg by mouth once daily Metoprolol Tartrate Active 50 MG PO Daily March 08, 2021 11:00pm Start: 08-29-2017 metoprolol tar trate (Lopressor) 50 MG tablet Take 50 mg by mouth. 0 08/24/2022 Active Metoprolol [facility] 100 mg TAKE 1 TABLET DAILY Active metroNIDAZOLE 500 mg oral tablet (3 sources) Nitroimidazole Antimicrobial Start: 04-08-2025 End: 04-15-2025 take 1 tablet by mouth every eight hours metroNIDAZOLE (Flagyl) 500 MG tablet Indications: Diverticulitis Take 1 tablet (500 mg) by mouth every 8 (eight) hours for 7 days No alcohol use while taking this medication 21 tablet 04/08/2025 04/15/2025 Active pantoprazole 40 mg delayed release oral tablet (20 sources) Proton Pump Inhibitor Start: 07-04-2024 End: 06-01-2025 take 1 tablet by mouth before mealtime pantoprazole (ProtoNix) 40 MG EC tablet Indications: Acute gastritis without hemorrhage, unspecified gastritis type Take 1 tablet (40 mg) by mouth in the morning. Take before meals. 90 tablet 1 03/03/2025 06/01/2025 Active pioglitazone 30 mg oral tablet (20 sources) Peroxisome Proliferator Receptor alpha Agonist, Peroxisome Proliferator Receptor gamma Agonist, Thiazolidinedione Start: 08-31-2017 End: 06-01-2025 take 1 tablet by mouth once daily pioglitazone (Actos) 30 MG tablet Indications: Uncontrolled type 2 diabetes mellitus with hyperglycemia (HCC) Take 1 tablet (30 mg) by mouth Daily 90 tablet 1 03/03/2025 06/01/2025 Active Actos Not-Taking /PRN Actos Not-Taking sertraline 50 mg oral tablet (9 sources) Serotonin Reuptake Inhibitor Start: 08-24-2022 take 1 tablet by mouth once daily Zoloft 50 mg Tab 50 mg = 1 tab(s), Oral, Daily, Refills(s) 0 Start Date: 08/24/22 Status: Ordered simvastatin 20 mg oral tablet (20 sources) HMG-CoA Reductase Inhibitor Start: 03-09-2021 End: 06-01-2025 take 1 tablet by mouth at bedtime, then take 1 tablet by mouth once daily simvastatin (Zocor) 20 MG tablet Indications: PAD (peripheral artery disease) Take 1 tablet (20 mg) by mouth at bedtime 1 po daily 90 tablet 1 03/03/2025 06/01/2025 Active sulfamethoxazole 800 mg / trimethoprim 160 mg oral tablet (3 sources) Dihydrofolate Reductase Inhibitor Antibacterial, Sulfonamide Antimicrobial Start: 04-08-2025 End: 04-15-2025 take 1 tablet by mouth once sulfamethoxazole-tr imethoprim (Bactrim DS) 800-160 MG per tablet Indications: Diverticulitis Take 1 tablet by mouth every 12 (twelve) hours for 7 days 14 tablet 04/08/2025 04/15/2025 Active tamsulosin hydrochloride 0.4 mg oral capsule (20 sources) alpha-Adrenergic Shima Start: 04-26-2024 End: 10-20-2024 take 1 capsule by mouth every twenty-four hours at bedtime tamsulosin (Flomax) 0.4 MG 24 hr capsule Take 0.8 mg by mouth at bedtime 10/07/2024 Active Start: 08-24-2022 take 1 capsule by mo [facility] every twenty-four hours tamsulosin (Flomax) 0.4 MG 24 hr capsule Take 0.4 mg by mouth. 0 08/24/2022 Active Start: 08-31-2017 take 1 capsule by mouth once d aily tamsulosin (FLOMAX) 0.4 mg capsule,extended release 24hr Take 1 capsule (0.4 mg total) by mouth nightly. 08/31/2017 Active traZODone hydrochloride 50 mg oral tablet (8 sources) Serotonin Reuptake Inhibitor Start: 03-27-2025 End: 04-26-2025 take 1 tablet by mouth at bedtime traZODone (Desyrel) 50 MG tablet Indications: Primary insomnia Take 1 tablet (50 mg) by mouth at bedtime 30 tablet 1 03/27/2025 04/26/2025 Active triamcinolone acetonide 1 mg/ml topical cream (17 sources) Corticosteroid Start: 06-04-2024 End: 06-25-2024 triamcinolone (Kenalog) 0.1 % cream Indications: Psoriasis Apply 1 application topically in the morning and 1 application before bedtime. Do all this for 21 days. 60 g 1 06/04/2024 06/25/2024 Active Start: 07-29-2021 Kenalog -40 mg Jul, 40 [...] cream every 12 (twelve) hours. 0 Active vitamin b12 1 mg oral tablet (17 sources) Vitamin B12 take 1 tablet by mouth in the morning cyanocobalamin 1000 MCG tablet Take 1 tablet (1,000 mcg total) by mouth in the morning. Active Vitamin B12 1000 mcg Tab (3 [...] 1 tablet by mouth every six hours HYDROcodone-Acetami nophen 5-325 MG 1 tablet as needed Orally every 6 hrs for 5 days Mar, Not-Taking/PRN cyclobenzaprine hydrochloride 5 mg oral tablet (6 sources) Muscle Relaxant Start: 12-23-2020 take 1 tablet by mouth every twenty-four hours Cyclobenzaprine HCl 5 MG 1 tablet at bedtime as needed Orally Once a day for 20 day(s) Dec, Not-Taking/PRN dicyclomine hydrochloride 20 mg oral tablet (9 sources) Anticholinergic Start: 07-04-2024 End: 11-20-2024 take 1 tablet by mouth four times daily as needed for pain dicyclomine (Bentyl) 20 MG tablet Take 20 mg by mouth 4 (four) times a day as needed (abd pain and cramping) 07/04/2024 11/20/2024 Discontinued (Therapy completed) ondansetron 4 mg disintegrating oral tablet (9 sources) Serotonin-3 Receptor Antagonist Start: 07-04-2024 End: 11-20-2024 take 1 tablet by mouth every six hours as needed for nausea and vomiting ondansetron ODT (Zofran-ODT) 4 MG disintegrating tablet Take 4 mg by mouth every 6 (six) hours if needed for nausea or vomiting 07/04/2024 11/20/2024 Discontinued (Therapy completed) sucralfate 1000 mg oral tablet (3 sources) Aluminum Complex Start: 07-04-2024 End: 07-22-2024 take 1 tablet by mouth every six hours as needed sucralfate (Carafate) 1 g tablet Take 1 g by mouth every 6 (six) hours if needed (abd pain) 07/04/2024 07/22/2024 Discontinued (Therapy completed) Problems Active Problems Problem Classification Problem Date Documented Da te Episodic/Chronic Abdominal pain (12 sources) Unspecified abdominal pain; Translations: [Generalized abdominal pain] Onset: 03-26-2022 Episodic Anxiety disorders (20 sources) Panic disorder; Translations: [Panic disorder [episodic paroxysmal anxiety]] Onset: 10-31-2023 08-24-2022 Chronic Cardiac dysrhythmias (20 sources) Multiple premature ventricular complexes; Translations: [Ventricular premature depolarization] Onset: 04-27-2022 08-24-2022 Chronic Chronic obstructive pulmonary disease and bronchiectasis (1 source) Chronic obstructive pulmonary disease, unspecified; Translations: [COPD UNSPECIFIED] Onset: 04-04-2022 Chronic Congestive heart failure; nonhypertensive (20 sources) Diastolic dysfunction; Translations: [Other ill-defined heart diseases] Onset: 10-31-2023 Resolved: 03-27-2025 08-24-2022 Chronic Deficiency and other anemia (5 sources) Iron deficiency anemia, unspecified; Translations: [IRON DEFICIENCY ANEMIA UNSPECIFIED] Onset: 06-14-2022 Episodic Diabetes mellitus with complications (20 sources) Type 2 diabetes mellitus in obese; Translations: [Type 2 diabetes mellitus with other specified complication] Onset: 04-04-2022 Resolved: 08-20-2024 08-24-2022 Chronic Diabetes mellitus without complication (20 sources) Diabetes mellitus; Translations: [Type 2 diabetes mellitus without complications] Onset: 03-29-2022 Resolved: 04-04-2024 08-24-2022 Chronic Diseases of white blood cells (1 source) Elevated white blood cell count, unspecified; Translations: [ELEVATED WHITE BLOOD CELL COUNT UNS] Onset: 04-04-2022 Chronic Disorders of lipid metabolism (20 sources) Mixed hyperlipidemia; Translations: [Mixed hyperlipidemia] Onset: 02-02-2023 08-24-2022 Chronic Diverticulosis and diverticulitis (20 sources) Diverticulosis of large intestine without perforation or abscess with bleeding; Translations: [Diverticulitis] Onset: 04-04-2022 02-27-2024 Chronic Essential hypertension (20 sources) Essential hypertension; Translations: [Essential (primary) hypertension] Onset: 10-26-2021 08-24-2022 Chronic Heart valve disorders (20 sources) Nonrheumatic aortic (valve) stenosis; Translations: [Aortic valve disorders] Onset: 05-09-2022 Resolved: 03-20-2024 10-31-2023 Chronic Hyperplasia of prostate (20 sources) Benign prostatic hyperplasia; Translations: [Benign prostatic hyperplasia without lower urinary tract symptoms] Onset: 10-20-2022 08-24-2022 Chronic Hypertension with complications and secondary hypertension (1 source) Hypertensive heart disease with heart failure; Translations: [HTN HEART DISEASE W/HEART FAIL] Onset: 04-28-2022 Chronic Miscellaneous mental health disorders (10 sources) Primary insomnia; Translations: [Primary insomnia] Onset: 03-27-2025 03-27-2025 Chronic Osteoarthritis (9 sources) Arthritis of right knee; Translations: [Unilateral primary osteoarthritis, right knee] Onset: 07-29-2021 Resolved: 12-14-2021 Chronic Other circulatory disease (3 sources) History of arterial bypass of lower limb artery; Translations: [Presence of other vascular implants and grafts] 02-20-2025 Chronic Other circulatory disease (1 source) Presence of other vascular implants and grafts; Translations: [Presence of other vascular implants and grafts] Onset: 02-20-2025 Chronic Other circulatory disease (1 source) Other specified symptoms and signs involving the circulatory and respiratory systems; Translations: [OTH SPEC SX SIGNS INVLV CIRC RS] Onset: 12-24-2022 Episodic Other connective tissue disease (1 source) Olecranon bursitis, left elbow Episodic Other connective tissue disease (1 source) Olecranon bursitis, right elbow Episodic Other connective tissue disease (1 source) Pain in lower limb; Translations: [Pain in leg, unspecified] 09-27-2023 Episodic Other diseases of bladder and urethra (1 source) Other specified disorders of bladder; Translations: [OTHER SPECIFIED DISORDERS BLADDER] Onset: 04-04-2022 Chronic Other ear and sense organ disorders (20 sources) Hearing loss; Translations: [Unspecified hearing loss, unspecified ear] Onset: 06-09-2022 08-24-2022 Chronic Other ear and sense organ disorders (1 source) Unspecified hearing loss, unspecified ear; Translations: [UNS HEARING LOSS UNSPECIFIED EAR] Onset: 10-20-2022 Chronic Other endocrine disorders (4 sources) Other specified disorders of adrenal gland; Translations: [OTHER SPEC DISORDERS ADRENAL GLAND] Onset: 01-31-2023 Chronic Other endocrine disorders (20 sources) Adrenal mass; Translations: [Other specified disorders of adrenal gland] Onset: 10-31-2023 10-31-2023 Chronic Other gastrointestinal disorders (3 sources) Adrenal mass 08-24-2022 Episodic Other inflammatory condition of skin (20 sources) Psoriasis; Translations: [Psoriasis, unspecified] Onset: 03-09-2023 03-09-2023 Chronic Other nervous system disorders (1 source) Carpal tunnel syndrome; Translations: [Carpal tunnel syndrome, unspecified upper limb] Chronic Other nervous system disorders (20 sources) Carpal tunnel syndrome of right wrist; Translations: [Carpal tunnel syndrome, right upper limb] Onset: 03-09-2023 03-09-2023 Chronic Other nervous system disorders (20 sources) Bilateral carpal tunnel syndrome; Translations: [Carpal tunnel syndrome, bilateral upper limbs] Onset: 11-29-2023 11-29-2023 Chronic Other non-traumatic joint disorders (2 sources) Pain in left elbow; Translations: [Pain in left elbow] Onset: 10-24-2023 Episodic Other non-traumatic joint disorders (1 source) Pain in right elbow Episodic Other nutritional; endocrine; and metabolic disorders (9 sources) Obesity; Translations: [Obesity, unspecified] 08-24-2022 Chronic Other nutritional; endocrine; and metabolic disorders (1 source) Obesity, unspecified; Translations: [OBESITY UNSPECIFIED] Onset: 10-20-2022 Chronic Other skin disorders (2 sources) Epidermal cyst; Translations: [EPIDERMAL CYST] Onset: 10-20-2022 Episodic Other upper respiratory disease (20 sources) Seasonal allergy; Translations: [Other seasonal allergic rhinitis] Onset: 10-31-2023 08-24-2022 Chronic Other upper respiratory disease (20 sources) Allergic rhinitis; Translations: [Allergic rhinitis, unspecified] Onset: 11-29-2023 11-29-2023 Chronic Other upper respiratory infections (15 sources) Acute sinusitis; Translations: [Other acute sinusitis] Onset: 01-29-2025 01-29-2025 Episodic Peripheral and visceral atherosclerosis (20 sources) Peripheral vascular disease, unspecified; Translations: [Atherosclerosis of [place] arteries of extremities with rest pain, bilateral legs] Onset: 09-21-2021 Chronic Spondylosis; intervertebral disc disorders; other back problems (20 sources) Degeneration of cervical intervertebral disc; Translations: [Other cervical disc degeneration, unspecified cervical region] Onset: 11-29-2023 11-29-2023 Chronic Substance-related disorders (20 sources) Nicotine dependence, cigarettes, uncomplicated; Translations: [Cigarette smoker ] Onset: 10-20-2022 02-27-2024 Chronic Unclassified (7 sources) Peripheral arterial disease 08-24-2022 Unclassified (3 sources) Sebaceous cyst of skin 08-30-2022 Unclassified (1 source) CONTACT W/AND (SUSP) EXPOS COVID-19; Translations: [CONTACT W/AND (SUSP) EXPOS COVID-19] Onset: 04-04-2022 Unclassified (1 source) Encounter for preprocedural laboratory examination; Translations: [Encounter for preprocedural laboratory examination] Onset: 12-20-2023 Unclassified (1 source) Pain in right elbow; Translations: [Pain in right elbow] Onset: 10-24-2023 Past or Other Problems Problem Classification Problem Date Documented Da te Episodic/Chronic Acute posthemorrhagic anemia (3 sources) Acute posthemorrhagic anemia; Translations: [ACUTE POSTHEMORRHAGIC ANEMIA] Onset: 2 Episodic Cardiac dysrhythmias (20 sources) Bradycardia; Translations: [Bradycardia, unspecified] Onset: 2 08-24-2022 Episodic Complications of surgical procedures or medical care (20 sources) Wound discharge; Translations: [Other complications of procedures, not elsewhere classified, initial encounter] Onset: 2 Resolved: 4 11-29-2023 Episodic Coronary atherosclerosis and other heart disease (14 sources) Coronary arteriosclerosis; Translations: [Atherosclerotic heart disease of [place] coronary artery without angina pectoris] Onset: 4 Resolved: 4 03-29-2024 Chronic Deficiency and other anemia (20 sources) Iron deficiency anemia; Translations: [Iron deficiency anemia, unspecified] Onset: 4 08-24-2022 Episodic Diseases of mouth; excluding dental (20 sources) Oropharyngeal lesion; Translations: [Other lesions of oral mucosa] Onset: 2 10-31-2023 Episodic Gastritis and duodenitis (20 sources) Acute gastritis; Translations: [Acute gastritis without bleeding] Onset: 4 07-22-2024 Episodic Genitourinary symptoms and ill-defined conditions (20 sources) Retention of urine; Translations: [Retention of urine, unspecified] Onset: 4 01-16-2024 Episodic Heart valve disorders (20 sources) Heart murmur; Translations: [Cardiac murmur, unspecified] Onset: 4 11-29-2023 Episodic Inflammation; infection of eye (except that caused by tuberculosis or sexually transmitteddisease) (20 sources) Conjunctivitis; Translations: [Unspecified conjunctivitis] Onset: 3 Resolved: 4 03-09-2023 Episodic Mood disorders (20 sources) Mood disorders Onset: 4 Resolved: 5 02-27-2024 Nausea and vomiting (1 source) Nausea with vomiting, unspecified; Translations: [NAUSEA WITH VOMITING UNSPECIFIED] Onset: 2 Episodic Nonspecific chest pain (1 source) Chest pain, unspecified; Translations: [CHEST PAIN UNSPECIFIED] Onset: 2 Episodic Nutritional deficiencies (20 sources) Cobalamin deficiency; Translations: [Deficiency of other specified B group vitamins] Onset: 3 08-24-2022 Episodic Other aftercare (1 source) prison (current) use of aspirin; Translations: [[employer] CURRENT USE OF ASPIRIN] Onset: 3 Episodic Other aftercare (1 source) Other terminal press operator (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) drug therapy; Translations: [OTH [employer] CURRENT DRUG THERAPY] Onset: 3 Episodic Other aftercare (1 source) terminal worker (current) use of 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l atelets; Translations: [FCI ANTITHROMBOT/ANTIPLATL ETS] Onset: 3 Episodic Other aftercare (1 source) terminal worker (current) use of oral hypoglycemic drugs; Translations: [FCI USE ORAL HYPOGLYCEMIC DX] Onset: 3 Episodic Other circulatory disease (1 source) Orthostatic hypotension; Translations: [ORTHOSTATIC HYPOTENSION] Onset: 2 Episodic Other circulatory disease (20 sources) Carotid bruit; Translations: [Other specified symptoms and signs involving the circulatory and respiratory systems] Onset: 4 08-20-2024 Episodic Other circulatory disease (20 sources) Hemorrhage, not elsewhere classified; Translations: [Hemorrhage, unspecified] Onset: 4 08-20-2024 Episodic Other connective tissue disease (7 sources) Synovial cyst of right popliteal space; Translations: [Synovial cyst of popliteal space [Jones], right knee] Onset: 4 11-29-2023 Episodic Other connective tissue disease (20 sources) Bursitis of olecranon of right elbow; Translations: [Olecranon bursitis, right elbow] Onset: 4 11-29-2023 Episodic Other connective tissue disease (20 sources) Bursitis of olecranon of left elbow; Translations: [Olecranon bursitis, left elbow] Onset: 4 11-29-2023 Episodic Other connective tissue disease (20 sources) Synovial cyst of popliteal space [Jones], right knee; Translations: [Synovial cyst of popliteal space] Onset: 4 11-29-2023 Episodic Other ear and sense organ disorders (20 sources) Tinnitus; Translations: [Tinnitus, unspecified ear] Onset: 2 10-31-2023 Episodic Other ear and sense organ disorders (20 sources) Tinnitus of right ear; Translations: [Tinnitus, right ear] Onset: 4 11-29-2023 Episodic Other gastrointestinal disorders (2 sources) Constipation, unspecified; Translations: [CONSTIPATION UNSPECIFIED] Onset: 2 Episodic Other nervous system disorders (20 sources) Peripheral nerve disease ; Translations: [Polyneuropathy, unspecified] Onset: 4 Resolved: 4 11-29-2023 Chronic Other nervous system disorders (20 sources) Mucosal anosmia; Translations: [Anosmia] Onset: 3 09-19-2023 Episodic Other nervous system disorders (20 sources) Loss of taste; Translations: [Parageusia] Onset: 4 11-29-2023 Episodic Other nervous system disorders (20 sources) Sense of smell altered; Translations: [Unspecified disturbances of smell and taste] Onset: 4 01-15-2024 Episodic Other non-traumatic joint disorders (1 source) Pain in right knee; Translations: [Acute pain of right knee M25.561] Onset: 1 Resolved: 1 Episodic Other non-traumatic joint disorders (1 source) Effusion, right knee; Translations: [Swelling of right knee joint M25.461] Onset: 1 Resolved: 1 Episodic Other nutritional; endocrine; and metabolic disorders (20 sources) Obese class I; Translations: [Obesity, unspecified] Onset: 2 Resolved: 4 10-31-2023 Chronic Other nutritional; endocrine; and metabolic disorders (20 sources) Overweight in adulthood with body mass index of 25 or more but less than 30; Translations: [Body mass index (BMI) 29.0-29.9, adult] Onset: 4 Resolved: 4 08-30-2022 Episodic Other nutritional; endocrine; and metabolic disorders (1 source) Body mass index (BMI) 29.0-29.9, adult; Translations: [BODY MASS INDEX BMI 29.0-29.9 ADULT] Onset: 3 Episodic Other nutritional; endocrine; and metabolic disorders (20 sources) Body mass index 25-29 - overweight; Translations: [Overweight] Onset: 4 02-27-2024 Episodic Other screening for suspected conditions (not mental disorders or infectious disease) (20 sources) Encounter for screening for malignant neoplasm of prostate; Translations: [Abnormal electrocardiogram [ECG] [EKG]] Onset: 2 11-29-2023 Episodic Other skin disorders (20 sources) Sebaceous cyst of skin; Translations: [Sebaceous cyst] Onset: 0 Episodic Other skin disorders (3 sources) Sebaceous cyst; Translations: [SEBACEOUS CYST] Onset: 2 Episodic Phlebitis; thrombophlebitis and thromboembolism (1 source) Acute embolism and thrombosis of other specified deep vein of right lower extremity Onset: 2 Resolved: 2 Episodic Pneumonia (except that caused by tuberculosis or sexually transmitted disease) (20 sources) Pneumonia; Translations: [Pneumonia, unspecified organism] Onset: 4 Resolved: 4 03-14-2024 Episodic Residual codes; unclassified (20 sources) Tobacco user; Translations: [Tobacco use] Onset: 4 08-24-2022 Episodic Residual codes; unclassified (1 source) Other specified postprocedural states; Translations: [OTH SPECIFIED POSTPROCEDURAL STATES] Onset: 2 Episodic Skin and subcutaneous tissue infections (1 source) Local infection of the skin and subcutaneous tissue, unspecified; Translations: [LOCAL INFECT SKIN SUBQ TISSUE UNS] Onset: 3 Episodic Spondylosis; intervertebral disc disorders; other back problems (20 sources) Lumbar radiculopathy; Translations: [Cervicalgia] Onset: 2 08-24-2022 Episodic Unclassified (14 sources) Onset: 0 11-14-2019 Unclassified (1 source) Moderate aortic valve stenosis 01-13-2025 Results Test Name Value Interpretation Reference Range Facility ALL CBC WITH AUTO DIFFon BASOPHILS ABSOLUTE AUTO 0.1 [facility] Basophils/100 WBC (Bld) 0.6 % 0.2 - 2.0 % [facility] Eosinophils/100 WBC (Bld) 2.1 % 0.9 - 7.0 % [facility] Erythrocyte distribution width (RBC) [Ratio] 13.3 % 11.0 - 15.0 % [facility] Hematocrit (Bld) [Volume fraction] 48.4 % 42.0 - 54.0 % [facility] [Mass/Vol] 16.5 g/dL 14.0 - 18.0 g/dL [facility] IMMATURE GRANULOCYTES ABS AUTO 0.03 [facility] Immature granulocytes/100 WBC (Bld) 0.4 % 0.0 - 0.5 % [facility] Interpretation and review of laboratory results Abnormal [facility] LYMPHOCYTES ABSOLUTE AUTO 1.9 [facility] Lymphocytes/100 WBC (Bld) 23.1 % 20.5 - 60.0 % [facility] MCH (RBC) [Entitic mass] 31.4 pg 25.9 - 34.0 pg [facility] MCHC (RBC) [Mass/Vol] 34.1 g/dL 29.9 - 35.2 g/dL [facility] MCV (RBC) [Entitic vol] 92.2 fL 80.0 - 94.0 fL [facility] MONOCYTES ABSOLUTE AUTO 0.8 [facility] Monocytes/100 WBC (Bld) 9.9 % 1.7 - 12.0 % [facility] NEUTROPHILS ABSOLUTE AUTO 5.1 [facility] Neutrophils/100 WBC (Bld) 63.9 % 43.0 - 75.0 % [facility] Platelet mean volume (Bld) [Entitic vol] 9.3 fL Low 9.5 - 13.5 fL [facility] EO # 0.2 [facility] PLT 216 [facility] RBC 5.25 [facility] WBC 8 [facility] ALL CBC WITH AUTO DIFFon BASOPHILS ABSOLUTE AUTO 0 [facility] Basophils/100 WBC (Bld) 0.5 % 0.2 - 2.0 % [facility] Eosinophils/100 WBC (Bld) 2.3 % 0.9 - 7.0 % [facility] Erythrocyte distribution width (RBC) [Ratio] 13.2 % 11.0 - 15.0 % [facility] Hematocrit (Bld) [Volume fraction] 49.5 % 42.0 - 54.0 % [facility] Hem[facility] (Bld) [Mass/Vol] 16.5 g/dL 14.0 - 18.0 g/dL [facility] IMMATURE GRANULOCYTES ABS AUTO 0.04 High [facility] Immature granulocytes/100 WBC (Bld) 0.5 % 0.0 - 0.5 % [facility] Interpretation and review of laboratory results Abnormal [facility] LYMPHOCYTES ABSOLUTE AUTO 2.1 [facility] Lymphocytes/100 WBC (Bld) 24.6 % 20.5 - 60.0 % [facility] MCH (RBC) [Entitic mass] 31 pg 25.9 - 34.0 pg [facility] MCHC (RBC) [Mass/Vol] 33.3 g/dL 29.9 - 35.2 g/dL [facility] MCV (RBC) [Entitic vol] 93 fL 80.0 - 94.0 fL [facility] MONOCYTES ABSOLUTE AUTO 0.8 [facility] Monocytes/100 WBC (Bld) 9.8 % 1.7 - 12.0 % [facility] NEUTROPHILS ABSOLUTE AUTO 5.2 [facility] Neutrophils/100 WBC (Bld) 62.3 % 43.0 - 75.0 % [facility] Platelet mean volume (Bld) [Entitic vol] 9.7 fL 9.5 - 13.5 fL [facility] EO # 0.2 [facility] PLT 235 [facility] RBC 5.32 [facility] WBC 8[facility]4 [facility] HbA1c (Bld) [Mass fraction]o n 03-27-2025 Interpretation and review of laboratory results [facility] and Cell countson 03-27-2025 HbA1c (Bld) [Mass fraction] 7.9 % [facility] SEGMENTAL BLOOD PRESSUREon 0 02-03-2025 [place] [address] Cardiology Report Signed Patient: DARIN THACKER MR#: [id number] : 1950 Acct:[id number] Age/Sex: 74 / M ADM Date: 02/03/25 Loc: CARD Attending Dr: Yaneli Mauricio M.D. Ordering Physician: Yaneli Mauricio M.D. Date of Service: 02/03/25 Procedure(s): CA segmental UE or LE AIMEE Accession Number(s): [id number] cc: Tonya Dye SPECIAL DELIVERY MESSENGER; Yaneli Mauricio M.D. [facility] Test Date: 2025-02-03 Pat Name: DARIN THACKER Department: Room: - Gender: Male Torch Operator: : 1950 Requested By: 1892 Order Number: [id number] Justin MD: TRAVON GALINDO M.D. Interpretive Statements Summary of the findings: Right leg: LYNN= 1.0; TBI= 0.55. Doppler waveforms demonstrate monophasic flow at the posterior tibial, and dorsalis pedis arteries. Left leg: LNYN= 0.65; TBI= 0.37. Doppler waveforms demonstrate monophasic [...] Signed On 02-03-2025 22:03:25 EDT by TRAVON GALINDO M.D. Dictated By: TRAVON GALINDO Signed By: 02/03/25220202/03/252202 DD/ 1339 TD/TT: Evening Anchor: [facility] Radiology, Radiologist, - 02/03/2025 [place] [address] Cardiology Report Signed Patient: DARIN THACKER MR#: [id number] : 1950 Acct:[id number] Age/Sex: 74 / M ADM Date: 02/03/25 Loc: CARD Attending Dr: Yaneli Mauricio M.D. Ordering Physician: Yaneli Mauricio M.D. Date of Service: 02/03/25 Procedure(s): CA segmental UE or LE AIMEE Accession Number(s): [id number] cc: Tonya Dye SPECIAL DELIVERY MESSENGER; Yaneli Mauricio M.D. [facility] Test Date: 2025-02-03 Pat Name: DARIN THACKER Department: Room: - Gender: Male Torch Operator: : 1950 Requested By: 1892 Order Number: [id number] Reading MD: TRAVON GALINDO M.D. Interpretive Statements Summary of the findings: Right leg: LYNN= 1.0; TBI= 0.55. Doppler waveforms demonstrate monophasic flow at the posterior tibial, and dorsalis pedis arteries. Left leg: LYNN= 0.65; TBI= 0.37. Doppler waveforms demonstrate monophasic [...] Signed On 02-03-2025 22:03:25 EDT by TRAVON GALINDO M.D. Dictated By: TRAVON GALINDO Signed By: 02/03/25220202/03/252202 DD/ 38 TD/TT: Evening Anchor: [facility] Radiology Study observation (narrative) [facility] SEGMENTAL BLOOD PRESSUREOrde red By: Radiologist Radiology on 02-03-2025 [employer] Work Phone: HbA1c (Bld) [Mass fraction]o n 11-20-2024 Interpretation and review of laboratory results [facility] - Hematology and Cell countson 11-20-2024 HbA1c (Bld) [Mass fraction] 8.90 % [facility] ALL BASIC METABOLIC PANELon 06-24-2024 Anion gap [Moles/Vol] 14.6 mmol/L [facility] Calcium [Mass/Vol] 9.4 mg/dL 8.5 - 10. 1 mg/dL [facility] Chloride [Moles/Vol] 102 mmol/L 98 - 10 7 mmol/L [facility] CO2 [Moles/Vol] 24.8 mmol/L 21.0 - 32.0 mmol/L [facility] Creatinine [Mass/Vol] 0.72 mg/dL 0.70 - 1.30 mg/dL [facility] GFR/1.73 sq M.predicted CKD-EPI (S/P/Bld) [Vol rate/Area] >60 60 - PINF [facility] Glucose [Mass/Vol] 128 mg/dL High 74 - 106 mg/dL [facility] Interpretation and review of laboratory results Abnormal [facility] Potassium [Moles/Vol] 4.4 mmol/L 3.5 - 5.1 mmol/L [facility] Sodium [Moles/Vol] 137 mmol/L 136 - 145 mmol/L [facility] TBH EGFR-NON AF YEMENI >60 60 - PINF [facility] Urea nitrogen [Mass/Vol] 19.0 mg/dL High 7.0 - 18.0 mg/dL [facility] Urea nitrogen/Creatinine [Mass ratio] 26.4 mg/mg [facility] Glucose Poct Glucometerson 0 12-27-2023 Glucose [Mass/Vol] 139 mg/dL Normal [facility] Comment on above: Result Comment: [facility] Glucose Reference Range is dependent on time and content of last meal. Glucose of more than 200 mg/dL in a nonstressed, ambulatory subject supports the diagnosis of Diabetes Mellitus. PERFORMED BY: [address] [place] [address] PATHOLOGIST EEG TECHNICIAN ANGELES PAUL M.D. Performed By: #### G LULS #### Point of Care testing , Commemt1 Glu2: Cleaned Meter Normal [facility] Comment on above: Result Comment: PERF ORMED BY: [facility] [address] [place] [address] PATHOLOGIST EEG TECHNICIAN ANGELES PAUL M.D. Performed By: #### G LULS #### Point of Care testing , Glucose [Mass/Vol] 166 mg/dL Normal [facility] Comment on above: Result Comment: [facility] Glucose Reference Range is dependent on time and content of last meal. Glucose of more than 200 mg/dL in a nonstressed, ambulatory subject supports the diagnosis of Diabetes Mellitus. Performed By: #### G LULS #### Point of Care testing , Magdiel 12-27-2023 L Specimen: [id number] Received: 12/28/23 Status: JERMAINE Kruger Num: [id number] Spec Type: Surgical Subm Dr: Ranulfo Zavala DO Tissues: A Skin Cyst (SEBACEOUS CYST RT SHOULDER) Procedures: HE, Gross/Micro L3 Age/ Patient Sex Location Account Attending Physician Darin Thacker 73/M [place] [id number] Ranulfo Zavala DO SPEC NUM: [id number] RECD: 12/28/23 STATUS: GLADISAdan KRUGER NUM: [id number] ZORA: 12/27/[address] [facility] [address]: Ranulfo Zavaal DO ENTERED: 12/28/[address] [facility] DR: SUBHA TYPE: Surgical DEPT: S ORDERED: HE, Gross/Micro [...] material. The surrounding tissue is firm, yellow-shaw.. Circulation Clerk sections are submitted in one cassette labeled A1. Microscopic Description Microscopic evaluation supports the above rendered diagnosis. CPT Codes 32041 Specimen: [id number] Received: 12/28/23 Status: JERMAINE Kurger Num: [id number] Spec Type: Surgical Subm Dr: Ranulfo Zavala DO Tissues: A Skin Cyst (SEBACEOUS CYST RT SHOULDER) Procedures: HE, Gross/Micro L3 Patient: Darin Thacker [id number] (Continued) Signed (signature on file) Hillary Rosenbaum MD 12/29/23 1304 Normal [facility] Basic Metabolic Panelon Anion gap [Moles/Vol] 10.4 mmol/L Normal 6.0-15.0 [facility] Comment on above: Performed By: #### B MP, SCAN CBC #### [facility] [address] [place] [address] [place] Calcium [Mass/Vol] 9.5 mg/dL Normal 8.6-10.3 [facility] Comment on above: Result Comment: PERF ORMED BY: [address] [place] [address] PATHOLOGIST EEG TECHNICIAN ANGELES PAUL M.D. Performed By: #### B MP, SCAN CBC #### [facility] [address] [place] [address] [place] Chloride [Moles/Vol] 105 mmol/L Normal 98-107 [facility] Comment on above: Performed By: #### B MP, SCAN CBC #### [facility] [address] [place] [address] [place] CO2 [Moles/Vol] 24.3 mmol/L Normal 21.0-31.0 [facility] Comment on above: Performed By: #### B MP, SCAN CBC #### [facility] [address] [place] [id number] [place] Creatinine [Mass/Vol] 0.66 mg/dL Low 0.70-1.30 [facility] Comment on above: Performed By: #### B MP, SCAN CBC #### [facility] [address] [place] [address] [place] GFR/1.73 sq M.predicted MDRD (S/P/Bld) [Vol rate/Area] mL/min/{1.73_m2} Normal [facility] Comment on above: Performed By: #### B MP, SCAN CBC #### [facility] [address] [place] [address] [place] Glucose [Mass/Vol] 129 mg/dL High 70-100 [facility] Comment on above: Result Comment: [place] Glucose Reference Range is dependent on time and content of last meal. Glucose of more than 200 mg/dL in a nonstressed, ambulatory subject supports the diagnosis of Diabetes Mellitus. ADA recommended reference range Performed By: #### B MP, SCAN CBC #### [facility] [address] [place] [address] [place] Potassium [Moles/Vol] 4.7 mmol/L Normal 3.5-5.1 [facility] Comment on above: Performed By: #### B MP, SCAN CBC #### [facility] [address] [place] [address] [place] Sodium [Moles/Vol] 135 mmol/L Low 136-145 [facility] Comment on above: Performed By: #### B MP, SCAN CBC #### [facility] [address] [place] [id number] [place] Urea nitrogen [Mass/Vol] 18 mg/dL Normal 7-25 [facility] Comment on above: Performed By: #### B MP, SCAN CBC #### [facility] [address] [place] [id number] [place] ECG 12 lead ECGon 12-20-2023 ECG 12 lead ECG [facility] [address] [place] [address] [place] [address] Electrocardiograph Report Signed Patient: Darin Thacker MR#: [id number] : 1950 Acct:[id number] Age/Sex: 73 / M ADM Date: 12/20/23 Loc: PS Room: Type: [facility] Attending Dr: Ranulfo Zavala DO Ordering Provider: [...] When compared with ECG of 14-MAR-2021 10:14, ME interval has increased Vent. rate has decreased BY 43 BPM Nonspecific T wave abnormality now evident in Lateral leads Confirmed by Travon Livingston ([id number]) on 12/20/2023 7:43:38 PM Referred By: YUDI Electronically Signed By:Travon Livingston Transcribed By: MUS Signed By Travon Livingston MD 12/20/231942 Normal [facility] Scan and CBCon 12-20-2023 Basophils (Bld) [#/Vol] 0.0 10*3/uL Normal 0.0-0.2 [facility] Comment on above: Result Comment: PERF ORMED BY: [place] [address] PATHOLOGIST EEG TECHNICIAN ANGELES PAUL M.D. Performed By: #### B MP, SCAN CBC #### [facility] [address] [place] [address] Basophils/100 WBC (Bld) 0.6 % Normal . [facility] Comment on above: Performed By: #### B MP, SCAN CBC #### [facility] [address] [place] [address] Eosinophils (Bld) [#/Vol] 0.1 10*3/uL Normal 0.0-0.45 [facility] Comment on above: Performed By: #### B MP, SCAN CBC #### [facility] [address] [place] [address] [place] Eosinophils/100 WBC (Bld) 1.4 % Normal . [facility] Comment on above: Performed By: #### B MP, SCAN CBC #### [facility] [address] Erythrocyte distribution width (RBC) [Ratio] 14.5 % Normal 12.0-14.8 [facility] Comment on above: Performed By: #### B MP, SCAN CBC #### [facility] [address] Hematocrit (Bld) [Volume fraction] 53.7 % High 38.8-50.0 [facility] Comment on above: Performed By: #### B MP, SCAN CBC #### [facility] [address] [place] [address] Hemoglobin (Bld) [Mass/Vol] 18.3 g/dL High 13.0-17.0 [facility] Comment on above: Performed By: #### B MP, SCAN CBC #### [place] [address] [place] Lymphocytes (Bld) [#/Vol] 1.6 10*3/uL Normal 1.00-4.8 [facility] Comment on above: Performed By: #### B MP, SCAN CBC #### [place] [address] [place] Lymphocytes/100 WBC (Bld) 22.2 % Normal . [facility] Comment on above: Performed By: #### B MP, SCAN CBC #### [facility] [address] [place] [address] [place] MCH (RBC) [Entitic mass] 31.7 pg Normal 27.5-35.2 [facility] Comment on above: Performed By: #### B MP, SCAN CBC #### [facility] [address] [place] [address] [place] MCV (RBC) [Entitic vol] 92.8 fL Normal 83.5-101 [facility] Comment on above: Performed By: #### B MP, SCAN CBC #### [address] [place] [address] [place] Mean Corpuscular HGB Conc 34.1 g/dL Normal 32.5-35.6 [facility] Comment on above: Performed By: #### B MP, SCAN CBC #### [facility] [address] [place] [address] [place] Monocytes (Bld) [#/Vol] 0.7 10*3/uL Normal 0.0-0.8 [facility] Comment on above: Performed By: #### B MP, SCAN CBC #### [facility] [address] Monocytes/100 WBC (Bld) 9.8 % Normal . [facility] Comment on above: Performed By: #### B MP, SCAN CBC #### [facility] [address] Neutrophils (Bld) [#/Vol] 4.8 10*3/uL Normal 1.8-7.7 [facility] Comment on above: Performed By: #### B MP, SCAN CBC #### [facility] [address] Neutrophils/100 WBC (Bld) 66.0 % Normal . [facility] Comment on above: Performed By: #### B MP, SCAN CBC #### [place] [address] [place] NRBC% 0.4 /100{WBC} Normal 0-0.5 [facility] Comment on above: Performed By: #### B MP, SCAN CBC #### [facility] [address] [place] [address] [place] Platelet Estimate Normal Normal Normal [facility] Comment on above: Performed By: #### B MP, SCAN CBC #### [facility] [address] [place] [address] [place] Platelet mean volume (Bld) [Entitic vol] 8.1 fL Normal 6.6-10.1 [facility] Comment on above: Performed By: #### B MP, SCAN CBC #### [facility] [address] [place] [address] [place] Platelet Morphology Normal Normal Normal [facility] Comment on above: Result Comment: PERF ORMED BY: [place] [address] PATHOLOGIST EEG TECHNICIAN ANGELES PAUL M.D. Performed By: #### B MP, SCAN CBC #### [facility] [address] [place] [address] [place] Platelets (Bld) [#/Vol] 206 10*3/uL Normal 150-450 [facility] Comment on above: Performed By: #### B MP, SCAN CBC #### [facility] [address] [place] [address] RBC (Bld) [#/Vol] 5.78 10*6/uL High 3.90-5.60 [facility] Comment on above: Performed By: #### B MP, SCAN CBC #### [facility] [address] [place] [address] RBC morphology finding Nom (Bld) Normal Normal Normal [facility] Comment on above: Performed By: #### B MP, SCAN CBC #### [facility] [address] [place] [address] [place] WBC (Bld) [#/Vol] 7.3 10*3/uL Normal 4.1-10.5 [facility] Comment on above: Performed By: #### B MP, SCAN CBC #### [facility] [address] [place] [address] [place] XR elbow BI 2Von 10-24-2023 XR elbow BI 2V [facility] [place] [address] [place] [address] XRay Report Signed Patient: Darin Thacker MR#: [id number] 96 : 1950 Acct:[id number] Age/Sex: 73 / M ADM Date: 10/24/23 Loc: SOXD Room: Type: [facility] Attending Dr: Ava Luis MD Copies to: Ava Luis MD Ordering Provider: Ava Luis MD Date of Service: 10/24/23 XR/XR [...] PROCESS. Impression dictated by: Dustin Gordon Jr., Esther10/24/2023 2:29 PM Dictation Location: [place] [address] Transcribed By: [facility] 10/24/23 142 Dictated By: Dustin Gordon Jr, DO 10/24/23 142 Signed By: 10/24/23 142 [facility] [address] ABDOMEN WO/W CONon 2022 CT [...] BHAVANA MOREAU Date: 2023-01-31 16:31 Normal [facility] CBC AUTO DIFFon 01-27-2023 BASO # 0.0 103/ul Normal 0.0-0.1 [facility] Comment on above: Performed By: #### B MP #### [facility] [address] [place] [address] Dr. Lucho De León Basophils/100 WBC (Bld) 0.6 % Normal 0.2-2.0 [facility] Comment on above: Performed By: #### B MP #### [facility] [address] [place] [address] Dr. Lucho De León EO # 0.1 103/ul Normal 0.0-0.7 [facility] Comment on above: Performed By: #### B MP #### [facility] [address] [place] [address] Dr. Lucho De León Eosinophils/100 WBC (Bld) 1.4 % Normal 0.9-7.0 [facility] Comment on above: Performed By: #### B MP #### [facility] [address] [place] [address] Dr. Lucho De León Erythrocyte distribution width (RBC) [Ratio] 13.7 % Normal 11.0-15.0 [facility] Comment on above: Performed By: #### B MP #### [facility] [address] [place] [address] Dr. Lucho De León Hematocrit (Bld) [Volume fraction] 51.2 % Normal 42.0-54.0 [facility] Comment on above: Performed By: #### B MP #### [facility] [address] [place] [address] Dr. Lucho De León Hemoglobin (Bld) [Mass/Vol] 17.5 g/dL Normal 14.0-18.0 [facility] Comment on above: Performed By: #### B MP #### [facility] [address] [place] [address] Dr. Lucho De León IG # 0.02 10e3/ul Normal 0.00-0.03 [facility] Comment on above: Performed By: #### B MP #### [facility] [address] [place] [address] Dr. Lucho De León IG % 0.3 % Normal 0.0-0.5 [facility] Comment on above: Performed By: #### B MP #### [facility] [address] [place] [address] Dr. Lucho De León LYMPH # 1.5 103/ul Normal 1.2-3.8 [facility] Comment on above: Performed By: #### B MP #### [facility] [address] [place] [address] Dr. Lucho De León Lymphocytes/100 WBC (Bld) 22.1 % Normal 20.5-60.0 [facility] Comment on above: Performed By: #### B MP #### [facility] [address] [place] [address] Dr. Lucho De León MANUAL DIFF REQ NO Normal [facility] Comment on above: Performed By: #### B MP #### [facility] [address] [place] [address] Dr. Lucho De León MCH (RBC) [Entitic mass] 31.0 pg Normal 25.9-34.0 [facility] Comment on above: Performed By: #### B MP #### [facility] [address] [place] [address] Dr. Lucho De León MCHC (RBC) [Mass/Vol] 34.2 g/dL Normal 29.9-35.2 [facility] Comment on above: Performed By: #### B MP #### [facility] [address] [place] [address] Dr. Lucho De León MCV (RBC) [Entitic vol] 90.6 fL Normal 80.0-94.0 [facility] Comment on above: Performed By: #### B MP #### [facility] [address] [place] [address] Dr. Lucho De León MONO # 0.7 103/ul Normal 0.3-0.8 [facility] Comment on above: Performed By: #### B MP #### [facility] [address] [place] [address] [address] Lucho De León Monocytes/100 WBC (Bld) 10.7 % Normal 1.7-12.0 [facility] Comment on above: Performed By: #### B MP #### [facility] [address] [place] [address] Dr. Lucho De León NEUT # 4.3 103/ul Normal 1.4-6.5 [facility] Comment on above: Performed By: #### B MP #### [facility] [address] [place] [address] Dr. Lucho De León Neutrophils/100 WBC (Bld) 64.9 % Normal 43.0-75.0 [facility] Comment on above: Performed By: #### B MP #### [facility] [address] [place] [address] Dr. Lucho De León Platelet mean volume (Bld) [Entitic vol] 9.1 fL Critically low 9.5-13.5 [facility] Comment on above: Performed By: #### B MP #### [facility] [address] [place] [address] Dr. Lucho De León PLT 220 103/ul Normal 150-450 [facility] Comment on above: Performed By: #### B MP #### [facility] [address] [place] [address] Dr. Lucho De León RBC 5.65 106/ul Normal 4.70-6.10 [facility] Comment on above: Performed By: #### B MP #### [facility] [address] [place] [address] Dr. Lucho De León WBC 6.6 103/ul Normal 4.0-11.0 [facility] Comment on above: Performed By: #### B MP #### [facility] [address] [place] [address] Dr. Lucho De León GLYCOHEMOGLOBIN A1Con 2022 ADA RECOMMENDATION SEE BELOW Normal [facility] Comment on above: Result Comment: ADA RECOMMENDED LIMIT 4.0 - 6.0 ADA THERAPEUTIC TARGET < 7.0 ACTION SUGGESTED > 7.0 Performed By: #### C VDTB #### [facility] [address] [place] [address] [address] Lucho De León Glucose [Mass/Vol] 209 mg/dL Normal [facility] Comment on above: Performed By: #### C VDTBH #### [facility] [address] [place] [address] [address] Lucho De León HbA1c (Bld) [Mass fraction] 8.9 % Critically high 4.5-6.2 [facility] Comment on above: Performed By: #### C VDTBH #### [facility] [address] [place] [address] [address] Lucho De León IRONon 01-27-2023 Iron [Mass/Vol] 59.0 ug/dL Critically low 65.0-175.0 [facility] Comment on above: Performed By: #### B MP #### [facility] [address] [place] [address] Dr. Lucho De León LIPID PROFILEon 01-27-2023 CHOL-HDL RATIO NORM SEE BELOW Normal [facility] Comment on above: Result Comment: 3.3 - 4.4 LOW RISK 4.4 - 7.1 AVERAGE RISK 7.1 - 11.0 MODERATE RISK >11.0 HIGH RISK Performed By: #### B MP #### [facility] [address] [place] [address] Dr. Lucho De León Cholesterol [Mass/Vol] 177 mg/dL Normal <=200 [facility] Comment on above: Performed By: #### B MP #### [facility] [address] [place] [address] Dr. Lucho De León Cholesterol in HDL [Mass/Vol] 50 mg/dL Normal 40-60 [facility] Comment on above: Performed By: #### B MP #### [facility] [address] [place] [address] Dr. Lucho De León Cholesterol in LDL [Mass/Vol] 89.2 mg/dL Normal [facility] Comment on above: Performed By: #### B MP #### [facility] [address] [place] [address] Dr. Lucho De León Cholesterol.total/Ch olesterol in HDL [Mass ratio] 3.5 {ratio} Normal [facility] Comment on above: Performed By: #### B MP #### [facility] [address] [place] [address] [address] Lucho De León HDL NORMAL > or = 60 mg/dl - LOW CARDIOVASCULAR RISK <40 mg/dl - HIGH CARDIOVASCULAR RISK Normal [facility] Comment on above: Performed By: #### B MP #### [facility] [address] [place] [address] [address] Lucho De León LDL CALC NORMAL SEE BELOW Normal [facility] Comment on above: Result Comment: <100 mg/dl OPTIMAL 100 - 129 mg/dl NEAR OR ABOVE OPTIMAL 130 - 159 mg/dl BORDERLINE HIGH 160 - 189 mg/dl HIGH >190 mg/dl VERY HIGH Performed By: #### B MP #### [facility] [address] [place] [address] Dr. Lucho De León Triglyceride [Mass/Vol] 189 mg/dL Critically high <=150 [facility] Comment on above: Performed By: #### B MP #### [facility] [address] [place] [address] [address] Lucho De León VLDL CALC 37.8 mg/dL Normal [facility] Comment on above: Performed By: #### B MP #### [facility] [address] [place] [address] Dr. Lucho De León MICROALBUMIN, RAND URon 04- mALB 7.6 mg/L Normal <=30.0 [facility] Comment on above: Performed By: #### M ALBR #### [facility] [address] [place] [address] Dr. Lucho De León PROF 14(COMP METB)on 023 Albumin [Mass/Vol] 3.6 g/dL Normal 3.4-5.0 [facility] Comment on above: Performed By: #### B MP #### [facility] [address] [place] [address] Dr. Lucho De León Albumin/Globulin [Mass ratio] 0.9 {ratio} Normal [facility] Comment on above: Performed By: #### B MP #### [facility] [address] [place] [address] [address] Lucho De León ALP [Catalytic activity/Vol] 95 U/L Normal 46-116 [facility] Comment on above: Performed By: #### B MP #### [facility] [address] [place] [address] [address] Lucho De León ALT [Catalytic activity/Vol] 26 U/L Normal 16-63 [facility] Comment on above: Performed By: #### B MP #### [facility] [address] [place] [address] [address] Lucho De León Anion gap [Moles/Vol] 16.7 mmol/L Normal [facility] Comment on above: Performed By: #### B MP #### [facility] [address] [place] [address] Dr. Lucho De León AST [Catalytic activity/Vol] 13 U/L Critically low 15-37 [facility] Comment on above: Performed By: #### B MP #### [facility] [address] [place] [address] Dr. Lucho De León Bilirubin [Mass/Vol] 0.3 mg/dL Normal 0.2-1.0 [facility] Comment on above: Performed By: #### B MP #### [facility] [address] [place] [address] Dr. Lucho De León Calcium [Mass/Vol] 9.7 mg/dL Normal 8.5-10.1 [facility] Comment on above: Performed By: #### B MP #### [facility] [address] [place] [address] Dr. Lucho De León Chloride [Moles/Vol] 103 mmol/L Normal 98-107 [facility] Comment on above: Performed By: #### B MP #### [facility] [address] [place] [address] [address] Lucho De León CO2 [Moles/Vol] 24.9 mmol/L Normal 21.0-32.0 [facility] Comment on above: Performed By: #### B MP #### [facility] [address] [place] [address] Dr. Lucho De León Creatinine [Mass/Vol] 0.81 mg/dL Normal 0.70-1.30 [facility] Comment on above: Performed By: #### B MP #### [facility] [address] [place] [address] Dr. Lucho De León EGFR-AF YEMENI >60 Normal >=60 [facility] Comment on above: Performed By: #### B MP #### [facility] [address] [place] [address] [address] Lucho De León EGFR-NON AF YEMENI >60 Normal >=60 [facility] Comment on above: Performed By: #### B MP #### [facility] [address] [place] [address] Dr. Lucho De León Globulin (S) [Mass/Vol] 4.2 g/dL Normal [facility] Comment on above: Performed By: #### B MP #### [facility] [address] [place] [address] [address] Lucho De León Glucose [Mass/Vol] 156 mg/dL Critically high 74-106 [facility] Comment on above: Performed By: #### B MP #### [facility] [address] [place] [address] [address] Lucho De León Potassium [Moles/Vol] 4.6 mmol/L Normal 3.5-5.1 [facility] Comment on above: Performed By: #### B MP #### [facility] [address] [place] [address] Dr. Lucho De León Protein [Mass/Vol] 7.8 g/dL Normal 6.4-8.2 [facility] Comment on above: Performed By: #### B MP #### [facility] [address] [place] [address] Dr. Lucho De León Sodium [Moles/Vol] 140 mmol/L Normal 136-145 [facility] Comment on above: Performed By: #### B MP #### [facility] [address] [place] [address] Dr. Lucho De León Urea nitrogen [Mass/Vol] 15.0 mg/dL Normal 7.0-18.0 [facility] Comment on above: Performed By: #### B MP #### [facility] [address] [place] [address] Dr. Lucho De León Urea nitrogen/Creatinine [Mass ratio] 18.5 mg/mg Normal [facility] Comment on above: Performed By: #### B MP #### [facility] [address] [place] [address] Dr. Lucho De León UA RANDOM W/MICROSCOPICon BACTERIA NONE SEEN Normal NONE SEEN [facility] Comment on above: Performed By: #### C BC #### [facility] [address] [place] [address] Dr. Lucho De León Bilirubin Ql (U) Negative Normal NEGATIVE [facility] Comment on above: Performed By: #### C BC #### [facility] [address] [place] [address] Dr. Lucho De León CAST NONE SEEN Normal NONE SEEN [facility] Comment on above: Performed By: #### C BC #### [facility] [address] [place] [address] Dr. Lucho De León Clarity (U) CLEAR Normal CLEAR [facility] Comment on above: Performed By: #### C BC #### [facility] [address] [place] [address] Dr. Lucho De León Color (U) LT. YELLOW Normal YELLOW [facility] Comment on above: Performed By: #### C BC #### [facility] [address] [place] [address] Dr. Lucho De León Crystals LM Nom (Urine sed) NONE SEEN Normal NONE SEEN [facility] Comment on above: Performed By: #### C BC #### [facility] [address] [place] [address] Dr. Lucho De León Epithelial cells LM Ql (Urine sed) NONE SEEN Normal NONE SEEN /RARE [facility] Comment on above: Performed By: #### C BC #### [facility] [address] [place] [address] Dr. Lucho De León Glucose Ql (U) 1000 mg/dl Abnormal NEGATIVE [facility] Comment on above: Performed By: #### C BC #### [facility] [address] [place] [address] [address] Lucho De León Hemoglobin Ql (U) Negative Normal NEGATIVE [facility] Comment on above: Performed By: #### C BC #### [facility] [address] [place] [address] Dr. Lucho De León Ketones Ql (U) Negative Normal NEGATIVE [facility] Comment on above: Performed By: #### C BC #### [facility] [address] [place] [address] Dr. Lucho De León LEUKOCYTES Negative Normal NEGATIVE [facility] Comment on above: Performed By: #### C BC #### [facility] [address] [place] [address] Dr. Lucho De León MUCOUS NONE SEEN Normal NONE SEEN [facility] Comment on above: Performed By: #### C BC #### [facility] [address] [place] [address] Dr. Lucho De León Nitrite Ql (U) Negative Normal NEGATIVE [facility] Comment on above: Performed By: #### C BC #### [facility] [address] [place] [address] Dr. Lucho De León pH (U) 5.5 [pH] Normal 5-9 [facility] Comment on above: Performed By: #### C BC #### [facility] [address] [place] [address] Dr. Lucho De León RBC NONE SEEN Abnormal 0-2 [facility] Comment on above: Performed By: #### C BC #### [facility] [address] [place] [address] Dr. Lucho De León SPEC GRAVITY 1.020 Normal 1.005-<=1.025 [facility] Comment on above: Performed By: #### C BC #### [facility] [address] [place] [address] Dr. Lucho De León UA PROTEIN Negative Normal NEGATIVE/ TRACE [facility] Comment on above: Performed By: #### C BC #### [facility] [address] [address] [address] Lucho De León Urobilinogen Qn (U) 0.2 {Danny'U}/dL Normal 0.2 - 1. 0 [facility] Comment on above: Performed By: #### C BC #### [facility] [address] [address] [address] Lucho De León WBC NONE SEEN Normal NONE SEEN [facility] Comment on above: Performed By: #### C BC #### [facility] [address] [place] [address] Dr. Lucho De León US CAROTID ART [...] BHAVANA MOREAU Date: 2022-12-20 16:32 Normal [facility] CBC AUTO DIFFon 11-18-2022 BASO # 0.1 103/ul Normal 0.0-0.1 [facility] Comment on above: Performed By: #### H GBHCT #### [facility] [address] [place] [address] Dr. Lucho De León Basophils/100 WBC (Bld) 0.6 % Normal 0.2-2.0 [facility] Comment on above: Performed By: #### H GBHCT #### [facility] [address] [address] [address] Lucho De León EO # 0.1 103/ul Normal 0.0-0.7 [facility] Comment on above: Performed By: #### H GBHCT #### [facility] [address] [place] [address] Dr. Lucho De León Eosinophils/100 WBC (Bld) 1.1 % Normal 0.9-7.0 [facility] Comment on above: Performed By: #### H GBHCT #### [facility] [address] [place] [address] Dr. Lucho De León Erythrocyte distribution width (RBC) [Ratio] 13.6 % Normal 11.0-15.0 [facility] Comment on above: Performed By: #### H GBHCT #### [facility] [address] [place] [address] Dr. Lucho De León Hematocrit (Bld) [Volume fraction] 56.1 % Critically high 42.0-54.0 [facility] Comment on above: Performed By: #### H GBHCT #### [facility] [address] [place] [address] Dr. Lucho De León Hemoglobin (Bld) [Mass/Vol] 17.8 g/dL Normal 14.0-18.0 [facility] Comment on above: Performed By: #### H GBHCT #### [facility] [address] [place] [address] Dr. Lucho De León IG # 0.02 10e3/ul Normal 0.00-0.03 [facility] Comment on above: Performed By: #### H GBHCT #### [facility] [address] [place] [address] Dr. Lucho De León IG % 0.2 % Normal 0.0-0.5 [facility] Comment on above: Performed By: #### H GBHCT #### [facility] [address] [place] [address] Dr. Lucho De León LYMPH # 1.6 103/ul Normal 1.2-3.8 [facility] Comment on above: Performed By: #### H GBHCT #### [facility] [address] [place] [address] Dr. Lucho De León Lymphocytes/100 WBC (Bld) 19.3 % Critically low 20.5-60.0 [facility] Comment on above: Performed By: #### H GBHCT #### [facility] [address] [place] [address] Dr. Lucho De León MANUAL DIFF REQ NO Normal [facility] Comment on above: Performed By: #### H GBHCT #### [facility] [address] [address] [address] Lucho De León MCH (RBC) [Entitic mass] 31.0 pg Normal 25.9-34.0 [facility] Comment on above: Performed By: #### H GBHCT #### [facility] [address] [place] [address] Dr. Lucho De León MCHC (RBC) [Mass/Vol] 31.7 g/dL Normal 29.9-35.2 [facility] Comment on above: Performed By: #### H GBHCT #### [facility] [address] [place] [address] Dr. Lucho De León MCV (RBC) [Entitic vol] 97.6 fL Critically high 80.0-94.0 [facility] Comment on above: Performed By: #### H GBHCT #### [facility] [address] [place] [address] Dr. Lucho De León MONO # 0.7 103/ul Normal 0.3-0.8 [facility] Comment on above: Performed By: #### H GBHCT #### [facility] [address] [place] [address] Dr. Lucho De León Monocytes/100 WBC (Bld) 8.1 % Normal 1.7-12.0 [facility] Comment on above: Performed By: #### H GBHCT #### [facility] [address] [place] [address] Dr. Lucho De León NEUT # 5.7 103/ul Normal 1.4-6.5 [facility] Comment on above: Performed By: #### H GBHCT #### [facility] [address] [place] [address] Dr. Lucho De León Neutrophils/100 WBC (Bld) 70.7 % Normal 43.0-75.0 [facility] Comment on above: Performed By: #### H GBHCT #### [facility] [address] [place] [address] Dr. Lucho De León Platelet mean volume (Bld) [Entitic vol] 10.6 fL Normal 9.5-13.5 [facility] Comment on above: Performed By: #### H GBHCT #### [facility] [address] [place] [address] Dr. Lucho De León PLT 228 103/ul Normal 150-450 [facility] Comment on above: Performed By: #### H GBHCT #### [facility] [address] [address] [address] Lucho De León RBC 5.75 106/ul Normal 4.70-6.10 [facility] Comment on above: Performed By: #### H GBHCT #### [facility] [address] [address] [address] Lucho De León WBC 8.1 103/ul Normal 4.0-11.0 [facility] Comment on above: Performed By: #### H GBHCT #### [facility] [address] [place] [address] Dr. Lucho De León PROF CHEM 8 (BAS METB)on Anion gap [Moles/Vol] 11.1 mmol/L Normal [facility] Comment on above: Performed By: #### B MP #### [facility] [address] [place] [address] Dr. Lucho De León Calcium [Mass/Vol] 9.3 mg/dL Normal 8.5-10.1 [facility] Comment on above: Performed By: #### B MP #### [facility] [address] [place] [address] Dr. Lucho De León Chloride [Moles/Vol] 102 mmol/L Normal 98-107 [facility] Comment on above: Performed By: #### B MP #### [facility] [address] [address] [address] Lucho De León CO2 [Moles/Vol] 28.3 mmol/L Normal 21.0-32.0 [facility] Comment on above: Performed By: #### B MP #### [facility] [address] [place] [address] Dr. Lucho De León Creatinine [Mass/Vol] 0.59 mg/dL Critically low 0.70-1.30 [facility] Comment on above: Performed By: #### B MP #### [facility] [address] [address] [address] Lucho De León EGFR-AF YEMENI >60 Normal >=60 [facility] Comment on above: Performed By: #### B MP #### [facility] [address] [address] [address] Lucho De León EGFR-NON AF YEMENI >60 Normal >=60 [facility] Comment on above: Performed By: #### B MP #### [facility] [address] [address] [address] Lucho De León Glucose [Mass/Vol] 171 mg/dL Critically high 74-106 T [facility] Comment on above: Performed By: #### B MP #### [facility] [address] [place] [address] Dr. Lucho De León Potassium [Moles/Vol] 4.4 mmol/L Normal 3.5-5.1 [facility] Comment on above: Performed By: #### B MP #### [facility] [address] [address] [address] Lucho De León Sodium [Moles/Vol] 137 mmol/L Normal 136-145 [facility] Comment on above: Performed By: #### B MP #### [facility] [address] [place] [address] Dr. Lucho De León Urea nitrogen [Mass/Vol] 12.0 mg/dL Normal 7.0-18.0 [facility] Comment on above: Performed By: #### B MP #### [facility] [address] [place] [address] Dr. Lucho De León Urea nitrogen/Creatinine [Mass ratio] 20.3 mg/mg Normal [facility] Comment on above: Performed By: #### B MP #### [facility] [address] [address] [address] Lucho De León General Surgery Office/Clini [...] WILKINS, JULIA Mays Only if needed [address] [place] [address]- Additional Instructions: Problem List/Past Medical [...] malignant neoplasm of female breast: Sister. Normal [facility] Comment on above: Result Comment: Elec tronically Signed By: MANJIT WILKINS, Bernadine Calle\Date and Time Signed: 10/25/22 16:08 EST Pathology Noteon 10-19-2022 Pathology Note [id number] #1.00CD:127 Normal [facility] Operative Reporton Operative Report [id number] #1.00CD:127 Normal [facility] GLYCOHEMOGLOBIN A1Con 2021 ADA RECOMMENDATION SEE BELOW Normal [facility] Comment on above: Result Comment: ADA RECOMMENDED LIMIT 4.0 - 6.0 ADA THERAPEUTIC TARGET < 7.0 ACTION SUGGESTED > 7.0 Performed By: #### C VDTBH #### [facility] [address] [address] [address] Lucho De León Glucose [Mass/Vol] 197 mg/dL Normal [facility] Comment on above: Performed By: #### C VDTBH #### [facility] [address] [address] [address] Lucho De León HbA1c (Bld) [Mass fraction] 8.5 % Critically high 4.5-6.2 [facility] Comment on above: Performed By: #### C VDTBH #### [facility] [address] [address] [address] Lucho De León PROF CHEM 8 (BAS METB)on Anion gap [Moles/Vol] 12.0 mmol/L Normal [facility] Comment on above: Performed By: #### B MP #### [facility] [address] [address] [address] Lucho De León Calcium [Mass/Vol] 9.0 mg/dL Normal 8.5-10.1 [facility] Comment on above: Performed By: #### B MP #### [facility] [address] [address] [address] Lucho De León Chloride [Moles/Vol] 100 mmol/L Normal 98-107 [facility] Comment on above: Performed By: #### B MP #### [facility] [address] [address] [address] Lucho De León CO2 [Moles/Vol] 24.6 mmol/L Normal 21.0-32.0 [facility] Comment on above: Performed By: #### B MP #### [facility] [address] [address] [address] Lucho De León Creatinine [Mass/Vol] 0.61 mg/dL Critically low 0.70-1.30 [facility] Comment on above: Performed By: #### B MP #### [facility] [address] [address] [address] Lucho De León EGFR-AF YEMENI >60 Normal >=60 [facility] Comment on above: Performed By: #### B MP #### [facility] [address] [place] [address] Dr. Lucho De León EGFR-NON AF YEMENI >60 Normal >=60 [facility] Comment on above: Performed By: #### B MP #### [facility] [address] [address] [address] Lucho De León Glucose [Mass/Vol] 186 mg/dL Critically high 74-106 T [facility] Comment on above: Performed By: #### B MP #### [facility] [address] [address] [address] Lucho De León Potassium [Moles/Vol] 4.6 mmol/L Normal 3.5-5.1 [facility] Comment on above: Performed By: #### B MP #### [facility] [address] [address] [address] Lucho De León Sodium [Moles/Vol] 132 mmol/L Critically low 136-145 Th [facility] Comment on above: Performed By: #### B MP #### [facility] [address] [address] [address] Lucho De León Urea nitrogen [Mass/Vol] 12.0 mg/dL Normal 7.0-18.0 [facility] Comment on above: Performed By: #### B MP #### [facility] [address] [address] [address] Lucho De León Urea nitrogen/Creatinine [Mass ratio] 19.7 mg/mg Normal [facility] Comment on above: Performed By: #### B #### [facility] [address] [address] [address] Lucho De León XR CSPINE 2_3 [...] by: BHAVANA MOREAU Date: 2022-09-22 12:09 Normal [facility] Consent for Procedure/Surger yon 08-31-2022 Consent for Procedure/Surgery [id number] #1.00CD:127 Normal [facility] Ambulatory Visit Summaryon 1 10-30-2021 Ambulatory Visit Summary KEDARJAYY BUCKKENDRA Reynolds :1950 Visit Date:08/30/2022 Ambulatory Visit Instructions Your Diagnosis Inflamed sebaceous cyst Your Care Team Attending Physician - Bernadine SARAVIA MD Primary Care Physician - TONYA DYE [...] allergies Tobacco user Vitamin B12 deficiency Normal [facility] Physician Referralon 022 Physician Referral [id number] #1.00CD:127 Normal [facility] CBC AUTO DIFFon 06-14-2022 BASO # 0.0 103/ul Normal 0.0-0.1 [facility] Comment on above: Performed By: #### C VDTB #### [facility] [address] [place] [address] Dr. Lucho De León Basophils/100 WBC (Bld) 0.4 % Normal 0.2-2.0 [facility] Comment on above: Performed By: #### C VDTB #### [facility] [address] [place] [address] Dr. Lucho De León EO # 0.1 103/ul Normal 0.0-0.7 [facility] Comment on above: Performed By: #### C VDTBH #### [facility] [address] [address] [address] Lucho De León Eosinophils/100 WBC (Bld) 1.6 % Normal 0.9-7.0 [facility] Comment on above: Performed By: #### C VDTBH #### [facility] [address] [place] [address] Dr. Lucho De León Erythrocyte distribution width (RBC) [Ratio] 16.1 % Critically high 11.0-15.0 [facility] Comment on above: Performed By: #### C VDTBH #### [facility] [address] [place] [address] Dr. Lucho De León Hematocrit (Bld) [Volume fraction] 51.3 % Normal 42.0-54.0 [facility] Comment on above: Performed By: #### C VDTBH #### [facility] [address] [place] [address] Dr. Lucho De León Hemoglobin (Bld) [Mass/Vol] 16.9 g/dL Normal 14.0-18.0 [facility] Comment on above: Performed By: #### C VDTBH #### [facility] [address] [place] [address] Dr. Lucho De León IG # 0.02 10e3/ul Normal 0.00-0.03 [facility] Comment on above: Performed By: #### C VDTBH #### [facility] [address] [place] [address] Dr. Lucho De León IG % 0.3 % Normal 0.0-0.5 [facility] Comment on above: Performed By: #### C VDTBH #### [facility] [address] [place] [address] Dr. Lucho De León LYMPH # 1.6 103/ul Normal 1.2-3.8 [facility] Comment on above: Performed By: #### C VDTBH #### [facility] [address] [place] [address] Dr. Lucho De León Lymphocytes/100 WBC (Bld) 21.6 % Normal 20.5-60.0 [facility] Comment on above: Performed By: #### C VDTBH #### [facility] [address] [place] [address] Dr. Lucho De León MANUAL DIFF REQ NO Normal [facility] Comment on above: Performed By: #### C VDTBH #### [facility] [address] [place] [address] Dr. Lucho De León MCH (RBC) [Entitic mass] 29.3 pg Normal 25.9-34.0 [facility] Comment on above: Performed By: #### C VDTBH #### [facility] [address] [place] [address] Dr. Lucho De León MCHC (RBC) [Mass/Vol] 32.9 g/dL Normal 29.9-35.2 [facility] Comment on above: Performed By: #### C VDTBH #### [facility] [address] [place] [address] Dr. Lucho De León MCV (RBC) [Entitic vol] 89.1 fL Normal 80.0-94.0 [facility] Comment on above: Performed By: #### C VDTBH #### [facility] [address] [place] [address] Dr. Lucho De León MONO # 0.6 103/ul Normal 0.3-0.8 [facility] Comment on above: Performed By: #### C VDTBH #### [facility] [address] [place] [address] Dr. Lucho De León Monocytes/100 WBC (Bld) 8.6 % Normal 1.7-12.0 [facility] Comment on above: Performed By: #### C VDTBH #### [facility] [address] [place] [address] Dr. Lucho De León NEUT # 5.0 103/ul Normal 1.4-6.5 [facility] Comment on above: Performed By: #### C VDTBH #### [facility] [address] [place] [address] Dr. Lucho De León Neutrophils/100 WBC (Bld) 67.5 % Normal 43.0-75.0 [facility] Comment on above: Performed By: #### C VDTBH #### [facility] [address] [place] [address] Dr. Lucho De León Platelet mean volume (Bld) [Entitic vol] 10.3 fL Normal 9.5-13.5 [facility] Comment on above: Performed By: #### C VDTBH #### [facility] [address] [place] [address] Dr. Lucho De León PLT 218 103/ul Normal 150-450 [facility] Comment on above: Performed By: #### C VDTBH #### [facility] [address] [place] [address] Dr. Lucho De León RBC 5.76 106/ul Normal 4.70-6.10 [facility] Comment on above: Performed By: #### C VDTBH #### [facility] [address] [place] [address] Dr. Lucho De León WBC 7.5 103/ul Normal 4.0-11.0 [facility] Comment on above: Performed By: #### C VDTBH #### [facility] [address] [place] [address] Dr. Lucho De León GLYCOHEMOGLOBIN A1Con 2021 ADA RECOMMENDATION SEE BELOW Normal [facility] Comment on above: Result Comment: ADA RECOMMENDED LIMIT 4.0 - 6.0 ADA THERAPEUTIC TARGET < 7.0 ACTION SUGGESTED > 7.0 Performed By: #### A 1C #### [facility] [address] [place] [address] Dr. Lucho De León Glucose [Mass/Vol] 177 mg/dL Normal [facility] Comment on above: Performed By: #### A 1C #### [facility] [address] [place] [address] Dr. Lucho De León HbA1c (Bld) [Mass fraction] 7.8 % Critically high 4.5-6.2 [facility] Comment on above: Performed By: #### A 1C #### [facility] [address] [place] [address] Dr. Lucho De León IRONon 06-14-2022 Iron [Mass/Vol] 50.0 ug/dL Critically low 65.0-175.0 [facility] Comment on above: Performed By: #### C BC #### [facility] [address] [place] [address] Dr. Lucho De León PROF 14(COMP METB)on 022 Albumin [Mass/Vol] 3.8 g/dL Normal 3.4-5.0 [facility] Comment on above: Performed By: #### H GBHCT #### [facility] [address] [address] [address] Lucho De León Albumin/Globulin [Mass ratio] 0.9 {ratio} Normal [facility] Comment on above: Performed By: #### H GBHCT #### [facility] [address] [address] [address] Lucho De León ALP [Catalytic activity/Vol] 95 U/L Normal 46-116 [facility] Comment on above: Performed By: #### H GBHCT #### [facility] [address] [address] [address] Lucho De León ALT [Catalytic activity/Vol] 19 U/L Normal 16-63 [facility] Comment on above: Performed By: #### H GBHCT #### [facility] [address] [place] [address] Dr. Lucho De León Anion gap [Moles/Vol] 12.2 mmol/L Normal [facility] Comment on above: Performed By: #### H GBHCT #### [facility] [address] [place] [address] Dr. Lucho De León AST [Catalytic activity/Vol] 11 U/L Critically low 15-37 [facility] Comment on above: Performed By: #### H GBHCT #### [facility] [address] [place] [address] Dr. Lucho De León Bilirubin [Mass/Vol] 0.3 mg/dL Normal 0.2-1.0 [facility] Comment on above: Performed By: #### H GBHCT #### [facility] [address] [place] [address] Dr. Lucho De León Calcium [Mass/Vol] 9.6 mg/dL Normal 8.5-10.1 [facility] Comment on above: Performed By: #### H GBHCT #### [facility] [address] [place] [address] Dr. Lucho De León Chloride [Moles/Vol] 103 mmol/L Normal 98-107 [facility] Comment on above: Performed By: #### H GBHCT #### [facility] [address] [place] [address] Dr. Lucho De León CO2 [Moles/Vol] 29.4 mmol/L Normal 21.0-32.0 [facility] Comment on above: Performed By: #### H GBHCT #### [facility] [address] [address] [address] Lucho De León Creatinine [Mass/Vol] 0.80 mg/dL Normal 0.70-1.30 [facility] Comment on above: Performed By: #### H GBHCT #### [facility] [address] [address] [address] Lucho De León EGFR-AF YEMENI >60 Normal >=60 [facility] Comment on above: Performed By: #### H GBHCT #### [facility] [address] [address] [address] Lucho De León EGFR-NON AF YEMENI >60 Normal >=60 [facility] Comment on above: Performed By: #### H GBHCT #### [facility] [address] [address] [address] Lucho De León Globulin (S) [Mass/Vol] 4.0 g/dL Normal [facility] Comment on above: Performed By: #### H GBHCT #### [facility] [address] [address] [address] Lucho De León Glucose [Mass/Vol] 202 mg/dL Critically high 74-106 T [facility] Comment on above: Performed By: #### H GBHCT #### [facility] [address] [address] [address] Lucho De León Potassium [Moles/Vol] 4.6 mmol/L Normal 3.5-5.1 [facility] Comment on above: Performed By: #### H GBHCT #### [facility] [address] [address] [address] Lucho De León Protein [Mass/Vol] 7.8 g/dL Normal 6.4-8.2 [facility] Comment on above: Performed By: #### H GBHCT #### [facility] [address] [address] [address] Lucho De León Sodium [Moles/Vol] 140 mmol/L Normal 136-145 [facility] Comment on above: Performed By: #### H GBHCT #### [facility] [address] [address] [address] Lucho De León Urea nitrogen [Mass/Vol] 15.0 mg/dL Normal 7.0-18.0 [facility] Comment on above: Performed By: #### H GBHCT #### [facility] [address] [address] [address] Lucho De León Urea nitrogen/Creatinine [Mass ratio] 18.8 mg/mg Normal [facility] Comment on above: Performed By: #### H GBHCT #### [facility] [address] [address] [address] Lucho De León NM STRESS/REST MULTIon 04-27 NM STRESS/REST MULTI Patient: DARIN THACKER Exam Date: 04/27/2022 : 1950 Gender:M Ordering : OLI TONYA DYE [facility] Admission #: [id number] Family : Order #: [id number] CLICK HERE TO VIEW EXAM RADIOLOGY REPORT [...] STUDY: PERFUSION DEFECT: LOCATION: Mid-inferior. Apical inferior. [place]. SIZE: Medium (3-4 segments). SEVERITY: Mild. TYPE: Persistent. WALL MOTION: Normal. LV SIZE: Normal. 85 mL. TID / TCD: None; 1.0 LVEF: Normal. Calculated EF 78%. SUMMARY: Myocardial perfusion imaging study has ABNORMAL findings. CONCLUSION: 1. Small fixed defect in the inferior wall extending to the apex, primarily RCA distribution 2. No reversible ischemia 3. Normal exercise test Dictated by: Bindu Conrad MD on 04/28/2022 at 07:47 Approved by: Bindu Conrad MD on 04/28/2022 at 08:01 Normal [facility] CBC AUTO DIFFon 04-14-2022 BASO # 0.0 103/ul Normal 0.0-0.1 [facility] Comment on above: Performed By: #### A 1C #### [facility] [address] [place] [address] Dr. Lucho De León Basophils/100 WBC (Bld) 0.5 % Normal 0.2-2.0 [facility] Comment on above: Performed By: #### A 1C #### [facility] [address] [place] [address] Dr. Lucho De León EO # 0.1 103/ul Normal 0.0-0.7 [facility] Comment on above: Performed By: #### A 1C #### [facility] [address] [place] [address] Dr. Lucho De León Eosinophils/100 WBC (Bld) 2.0 % Normal 0.9-7.0 [facility] Comment on above: Performed By: #### A 1C #### [facility] [address] [place] [address] Dr. Lucho De León Erythrocyte distribution width (RBC) [Ratio] 15.0 % Normal 11.0-15.0 [facility] Comment on above: Performed By: #### A 1C #### [facility] [address] [place] [address] Dr. Lucho De León Hematocrit (Bld) [Volume fraction] 39.1 % Critically low 42.0-54.0 [facility] Comment on above: Performed By: #### A 1C #### [facility] [address] [place] [address] Dr. Lucho De León Hemoglobin (Bld) [Mass/Vol] 12.5 g/dL Critically low 14.0-18.0 [facility] Comment on above: Performed By: #### A 1C #### [facility] [address] [place] [address] Dr. Lucho De León IG # 0.02 10e3/ul Normal 0.00-0.03 [facility] Comment on above: Performed By: #### A 1C #### [facility] [address] [place] [address] Dr. Lucho De León IG % 0.4 % Normal 0.0-0.5 [facility] Comment on above: Performed By: #### A 1C #### [facility] [address] [place] [address] Dr. Lucho De León LYMPH # 1.7 103/ul Normal 1.2-3.8 [facility] Comment on above: Performed By: #### A 1C #### [facility] [address] [place] [address] Dr. Lucho De León Lymphocytes/100 WBC (Bld) 30.7 % Normal 20.5-60.0 [facility] Comment on above: Performed By: #### A 1C #### [facility] [address] [place] [address] Dr. Lucho De León MANUAL DIFF REQ NO Normal [facility] Comment on above: Performed By: #### A 1C #### [facility] [address] [place] [address] Dr. Lucho De León MCH (RBC) [Entitic mass] 29.7 pg Normal 25.9-34.0 [facility] Comment on above: Performed By: #### A 1C #### [facility] [address] [place] [address] Dr. Lucho De León MCHC (RBC) [Mass/Vol] 32.0 g/dL Normal 29.9-35.2 [facility] Comment on above: Performed By: #### A 1C #### [facility] [address] [place] [address] Dr. Lucho De León MCV (RBC) [Entitic vol] 92.9 fL Normal 80.0-94.0 [facility] Comment on above: Performed By: #### A 1C #### [facility] [address] [address] [address] Lucho De León MONO # 0.5 103/ul Normal 0.3-0.8 [facility] Comment on above: Performed By: #### A 1C #### [facility] [address] [address] [address] Lucho De León Monocytes/100 WBC (Bld) 9.6 % Normal 1.7-12.0 [facility] Comment on above: Performed By: #### A 1C #### [facility] [address] [place] [address] Dr. Lucho De León NEUT # 3.2 103/ul Normal 1.4-6.5 [facility] Comment on above: Performed By: #### A 1C #### [facility] [address] [place] [address] Dr. Lucho De León Neutrophils/100 WBC (Bld) 56.8 % Normal 43.0-75.0 [facility] Comment on above: Performed By: #### A 1C #### [facility] [facility] [address] [place] [address] Dr. Lucho De León Platelet mean volume (Bld) [Entitic vol] 9.2 fL Critically low 9.5-13.5 [facility] Comment on above: Performed By: #### A 1C #### [facility] [address] [place] [address] Dr. Lucho De León PLT 317 103/ul Normal 150-450 [facility] Comment on above: Performed By: #### A 1C #### [facility] [address] [place] [address] Dr. Lucho De León RBC 4.21 106/ul Critically low 4.70-6.10 [facility] Comment on above: Performed By: #### A 1C #### [facility] [address] [place] [address] Dr. Lucho De León WBC 5.6 103/ul Normal 4.0-11.0 [facility] Comment on above: Performed By: #### A 1C #### [facility] [address] [place] [address] Dr. Lucho De León ECHOCARDIO M/2D COMPLETEon 0 04-14-2022 ECHOCARDIO M/2D COMPLETE Patient: DARIN THACKER Exam Date: 04/14/2022 : 1950 Gender:M Ordering : OLI TONYA DYE [facility] Admission #: [id number] Family : Order #: [id number] CLICK HERE TO VIEW EXAM ECHOCARDIOGRAM REPORT [...] pressures. 6. No pericardial effusion. Dictated by: Travon Galindo M.D. on 04/14/2022 at 17:50 Approved by: Travon Galindo M.D. on 04/14/2022 at 17:53 Normal [facility] PRBC LEUKOREDUCEDon 04-14-20 ABO and Rh group Nom (Bld) Cross Match Result Compatible Unit Blood Type O Pos Unit Number [id number] Status Information Transfused Product ID Red Blood Cells Product Code [id number] Cross Match Result Compatible Unit Blood Type O Pos Unit Number [id number] Status Information Transfused Product ID Red Blood Cells Product Code [id number] Normal [facility] Comment on above: Performed By: #### P RBC #### [facility] [address] [place] [address] Dr. Lucho De León PRBC LEUKOREDUCED Cross Match Result Compatible Unit Blood Type O Pos Unit Number [id number] Status Information Transfused Product ID Red Blood Cells Product Code [id number] Normal [facility] Comment on above: Performed By: #### P RBC #### [facility] [address] [place] [address] Dr. Lucho De León PRBC LEUKOREDUCED Cross Match Result Compatible Unit Blood Type O Pos Unit Number [id number] Status Information Transfused Product ID Red Blood Cells Product Code [id number] Normal [facility] Comment on above: Performed By: #### P RBC #### [facility] [address] [place] [address] Dr. Lucho De León CBC AUTO DIFFon 04-06-2022 BASO # 0.0 103/ul Normal 0.0-0.1 [facility] Comment on above: Performed By: #### C BC #### [facility] [address] [place] [address] Dr. Lucho De León Basophils/100 WBC (Bld) 0.4 % Normal 0.2-2.0 [facility] Comment on above: Performed By: #### C BC #### [facility] [address] [place] [address] Dr. Lucho De León EO # 0.1 103/ul Normal 0.0-0.7 [facility] Comment on above: Performed By: #### C BC #### [facility] [address] [place] [address] Dr. Lucho De León Eosinophils/100 WBC (Bld) 1.4 % Normal 0.9-7.0 [facility] Comment on above: Performed By: #### C BC #### [facility] [address] [place] [address] Dr. Lucho De León Erythrocyte distribution width (RBC) [Ratio] 16.3 % Critically high 11.0-15.0 [facility] Comment on above: Performed By: #### C BC #### [facility] [address] [place] [address] Dr. Lucho De León Hematocrit (Bld) [Volume fraction] 36.2 % Critically low 42.0-54.0 [facility] Comment on above: Performed By: #### C BC #### [facility] [address] [place] [address] Dr. Lucho De León Hemoglobin (Bld) [Mass/Vol] 11.3 g/dL Critically low 14.0-18.0 [facility] Comment on above: Performed By: #### C BC #### [facility] [address] [place] [address] Dr. Lucho De León IG # 0.04 10e3/ul Critically high 0.00-0.03 [facility] Comment on above: Performed By: #### C BC #### [facility] [address] [place] [address] Dr. Lucho De León IG % 0.5 % Normal 0.0-0.5 [facility] Comment on above: Performed By: #### C BC #### [facility] [address] [place] [address] Dr. Lucho De León LYMPH # 2.0 103/ul Normal 1.2-3.8 [facility] Comment on above: Performed By: #### C BC #### [facility] [address] [place] [address] Dr. Lucho De León Lymphocytes/100 WBC (Bld) 26.7 % Normal 20.5-60.0 [facility] Comment on above: Performed By: #### C BC #### [facility] [address] [place] [address] Dr. Lucho De León MANUAL DIFF REQ NO Normal [facility] Comment on above: Performed By: #### C BC #### [facility] [address] [place] [address] Dr. Lucho De León MCH (RBC) [Entitic mass] 29.7 pg Normal 25.9-34.0 [facility] Comment on above: Performed By: #### C BC #### [facility] [address] [place] [address] Dr. Lucho De León MCHC (RBC) [Mass/Vol] 31.2 g/dL Normal 29.9-35.2 [facility] Comment on above: Performed By: #### C BC #### [facility] [address] [place] [address] Dr. Lucho De León MCV (RBC) [Entitic vol] 95.3 fL Critically high 80.0-94.0 [facility] Comment on above: Performed By: #### C BC #### [facility] [address] [place] [address] Dr. Lucho De León MONO # 0.9 103/ul Critically high 0.3-0.8 [facility] Comment on above: Performed By: #### C BC #### [facility] [address] [place] [address] Dr. Lucho De León Monocytes/100 WBC (Bld) 11.8 % Normal 1.7-12.0 [facility] Comment on above: Performed By: #### C BC #### [facility] [address] [place] [address] Dr. Lucho De León NEUT # 4.3 103/ul Normal 1.4-6.5 [facility] Comment on above: Performed By: #### C BC #### [facility] [address] [place] [address] Dr. Lucho De León Neutrophils/100 WBC (Bld) 59.2 % Normal 43.0-75.0 [facility] Comment on above: Performed By: #### C BC #### [facility] [address] [place] [address] Dr. Lucho De León Platelet mean volume (Bld) [Entitic vol] 9.1 fL Critically low 9.5-13.5 [facility] Comment on above: Performed By: #### C BC #### [facility] [address] [place] [address] Dr. Lucho De León PLT 371 103/ul Normal 150-450 [facility] Comment on above: Performed By: #### C BC #### [facility] [address] [address] [address] Lucho De León RBC 3.80 106/ul Critically low 4.70-6.10 [facility] Comment on above: Performed By: #### C BC #### [facility] [address] [address] [address] Lucho De León WBC 7.3 103/ul Normal 4.0-11.0 [facility] Comment on above: Performed By: #### C BC #### [facility] [address] [place] [address] Dr. Lucho De León PROF CHEM 8 (BAS METB)on Anion gap [Moles/Vol] 12.4 mmol/L Normal [facility] Comment on above: Performed By: #### A 1C #### [facility] [address] [place] [address] Dr. Lucho De León Calcium [Mass/Vol] 9.3 mg/dL Normal 8.5-10.1 [facility] Comment on above: Performed By: #### A 1C #### [facility] [address] [place] [address] Dr. Lucho De León Chloride [Moles/Vol] 104 mmol/L Normal 98-107 [facility] Comment on above: Performed By: #### A 1C #### [facility] [address] [place] [address] Dr. Lucho De León CO2 [Moles/Vol] 24.6 mmol/L Normal 21.0-32.0 [facility] Comment on above: Performed By: #### A 1C #### [facility] [address] [place] [address] Dr. Lucho De León Creatinine [Mass/Vol] 0.67 mg/dL Critically low 0.70-1.30 [facility] Comment on above: Performed By: #### A 1C #### [facility] [address] [place] [address] Dr. Lucho De León EGFR-AF YEMENI >60 Normal >=60 [facility] Comment on above: Performed By: #### A 1C #### [facility] [address] [place] [address] Dr. Lucho De León EGFR-NON AF YEMENI >60 Normal >=60 [facility] Comment on above: Performed By: #### A 1C #### [facility] [address] [address] [address] Lucho De León Glucose [Mass/Vol] 144 mg/dL Critically high 74-106 [facility] Comment on above: Performed By: #### A 1C #### [facility] [address] [place] [address] Dr. Lucho De León Potassium [Moles/Vol] 5.0 mmol/L Normal 3.5-5.1 [facility] Comment on above: Performed By: #### A 1C #### [facility] [address] [place] [address] Dr. Lucho De León Sodium [Moles/Vol] 136 mmol/L Normal 136-145 [facility] Comment on above: Performed By: #### A 1C #### [facility] [address] [place] [address] Dr. Lucho De León Urea nitrogen [Mass/Vol] 12.0 mg/dL Normal 7.0-18.0 [facility] Comment on above: Performed By: #### A 1C #### [facility] [address] [place] [address] Dr. Lucho De León Urea nitrogen/Creatinine [Mass ratio] 17.9 mg/mg Normal [facility] Comment on above: Performed By: #### A 1C #### [facility] [address] [place] [address] Dr. Lucho De León CBC AUTO DIFFon 03-30-2022 BASO # 0.0 103/ul Normal 0.0-0.1 [facility] Comment on above: Performed By: #### C BC #### [facility] [address] [place] [address] Dr. Lucho De León Basophils/100 WBC (Bld) 0.2 % Normal 0.2-2.0 [facility] Comment on above: Performed By: #### C BC #### [facility] [address] [address] [address] Lucho De León EO # 0.1 103/ul Normal 0.0-0.7 [facility] Comment on above: Performed By: #### C BC #### [facility] [address] [address] [address] Lucho De León Eosinophils/100 WBC (Bld) 0.9 % Normal 0.9-7.0 [facility] Comment on above: Performed By: #### C BC #### [facility] [address] [place] [address] Dr. Lucho De León Erythrocyte distribution width (RBC) [Ratio] 16.9 % Critically high 11.0-15.0 [facility] Comment on above: Performed By: #### C BC #### [facility] [address] [place] [address] Dr. Lucho De León Hematocrit (Bld) [Volume fraction] 29.9 % Critically low 42.0-54.0 [facility] Comment on above: Performed By: #### C BC #### [facility] [address] [place] [address] Dr. Lucho De León Hemoglobin (Bld) [Mass/Vol] 10.1 g/dL Critically low 14.0-18.0 [facility] Comment on above: Performed By: #### C BC #### [facility] [address] [place] [address] Dr. Lucho De León IG # 0.10 10e3/ul Critically high 0.00-0.03 [facility] Comment on above: Performed By: #### C BC #### [facility] [address] [place] [address] Dr. Lucho De León IG % 0.9 % Critically high 0.0-0.5 [facility] Comment on above: Performed By: #### C BC #### [facility] [address] [place] [address] Dr. Lucho De León LYMPH # 2.0 103/ul Normal 1.2-3.8 [facility] Comment on above: Performed By: #### C BC #### [facility] [address] [place] [address] Dr. Lucho De León Lymphocytes/100 WBC (Bld) 18.3 % Critically low 20.5-60.0 [facility] Comment on above: Performed By: #### C BC #### [facility] [address] [place] [address] Dr. Lucho eD León MANUAL DIFF REQ NO Normal [facility] Comment on above: Performed By: #### C BC #### [facility] [address] [place] [address] Dr. Lucho De León MCH (RBC) [Entitic mass] 30.6 pg Normal 25.9-34.0 [facility] Comment on above: Performed By: #### C BC #### [facility] [address] [place] [address] Dr. Lucho De León MCHC (RBC) [Mass/Vol] 33.8 g/dL Normal 29.9-35.2 [facility] Comment on above: Performed By: #### C BC #### [facility] [address] [place] [address] Dr. Lucho De León MCV (RBC) [Entitic vol] 90.6 fL Normal 80.0-94.0 [facility] Comment on above: Performed By: #### C BC #### [facility] [address] [place] [address] Dr. Lucho De León MONO # 0.9 103/ul Critically high 0.3-0.8 [facility] Comment on above: Performed By: #### C BC #### [facility] [address] [place] [address] Dr. Lucho De León Monocytes/100 WBC (Bld) 8.2 % Normal 1.7-12.0 [facility] Comment on above: Performed By: #### C BC #### [facility] [address] [place] [address] Dr. Lucho De León NEUT # 8.0 103/ul Critically high 1.4-6.5 [facility] Comment on above: Performed By: #### C BC #### [facility] [address] [address] [address] Lucho De León Neutrophils/100 WBC (Bld) 71.5 % Normal 43.0-75.0 [facility] Comment on above: Performed By: #### C BC #### [facility] [address] [address] [address] Lucho De León Platelet mean volume (Bld) [Entitic vol] 9.7 fL Normal 9.5-13.5 [facility] Comment on above: Performed By: #### C BC #### [facility] [address] [address] [address] Lcuho De León PLT 195 103/ul Normal 150-450 [facility] Comment on above: Performed By: #### C BC #### [facility] [address] [address] [address] Lucho De León RBC 3.30 106/ul Critically low 4.70-6.10 [facility] Comment on above: Performed By: #### C BC #### [facility] [address] [address] [address] Lucho De León WBC 11.1 103/ul Critically high 4.0-11.0 [facility] Comment on above: Performed By: #### C BC #### [facility] [address] [address] [address] Lucho De León PROF CHEM 8 (BAS METB)on Anion gap [Moles/Vol] 11.8 mmol/L Normal [facility] Comment on above: Performed By: #### C BC #### [facility] [address] [address] [address] Lucho De León Calcium [Mass/Vol] 8.5 mg/dL Normal 8.5-10.1 [facility] Comment on above: Performed By: #### C BC #### [facility] [address] [address] [address] Lucho De León Chloride [Moles/Vol] 103 mmol/L Normal 98-107 [facility] Comment on above: Performed By: #### C BC #### [facility] [address] [address] [address] Lucho De León CO2 [Moles/Vol] 25.8 mmol/L Normal 21.0-32.0 [facility] Comment on above: Performed By: #### C BC #### [facility] [address] [address] [address] Lucho De León Creatinine [Mass/Vol] 0.56 mg/dL Critically low 0.70-1.30 [facility] Comment on above: Performed By: #### C BC #### [facility] [address] [address] [address] Lucho De León EGFR-AF YEMENI >60 Normal >=60 [facility] Comment on above: Performed By: #### C BC #### [facility] [address] [place] [address] Dr. Lucho De León EGFR-NON AF YEMENI >60 Normal >=60 [facility] Comment on above: Performed By: #### C BC #### [facility] [address] [address] [address] Lucho De León Glucose [Mass/Vol] 166 mg/dL Critically high 74-106 [facility] Comment on above: Performed By: #### C BC #### [facility] [address] [address] [address] Lucho De León Potassium [Moles/Vol] 3.6 mmol/L Normal 3.5-5.1 [facility] Comment on above: Performed By: #### C BC #### [facility] [address] [address] [address] Lucho De León Sodium [Moles/Vol] 137 mmol/L Normal 136-145 [facility] Comment on above: Performed By: #### C BC #### [facility] [address] [address] [address] Lucho De León Urea nitrogen [Mass/Vol] 6.0 mg/dL Critically low 7.0-18.0 [facility] Comment on above: Performed By: #### C BC #### [facility] [address] [place] [address] Dr. Lucho De León Urea nitrogen/Creatinine [Mass ratio] 10.7 mg/mg Normal [facility] Comment on above: Performed By: #### C BC #### [facility] [address] [place] [address] Dr. Lucho De León CBC AUTO DIFFon 03-29-2022 BASO # 0.0 103/ul Normal 0.0-0.1 [facility] Comment on above: Performed By: #### A 1C #### [facility] [address] [place] [address] Dr. Lucho De León Basophils/100 WBC (Bld) 0.3 % Normal 0.2-2.0 [facility] Comment on above: Performed By: #### A 1C #### [facility] [address] [place] [address] Dr. Lucho De León EO # 0.1 103/ul Normal 0.0-0.7 [facility] Comment on above: Performed By: #### A 1C #### [facility] [address] [place] [address] Dr. Lucho De León Eosinophils/100 WBC (Bld) 0.8 % Critically low 0.9-7.0 [facility] Comment on above: Performed By: #### A 1C #### [facility] [address] [place] [address] Dr. Lucho De León Erythrocyte distribution width (RBC) [Ratio] 16.9 % Critically high 11.0-15.0 [facility] Comment on above: Performed By: #### A 1C #### [facility] [address] [place] [address] Dr. Lucho De León Hematocrit (Bld) [Volume fraction] 23.0 % Critically low 42.0-54.0 [facility] Comment on above: Performed By: #### A 1C #### [facility] [address] [place] [address] Dr. Lucho De León Hemoglobin (Bld) [Mass/Vol] 7.6 g/dL Critically low 14.0-18.0 [facility] Comment on above: Performed By: #### A 1C #### [facility] [address] [address] [address] Lucho De León IG # 0.10 10e3/ul Critically high 0.00-0.03 [facility] Comment on above: Performed By: #### A 1C #### [facility] [address] [address] [address] Lucho De León IG % 1.3 % Critically high 0.0-0.5 [facility] Comment on above: Performed By: #### A 1C #### [facility] [address] [place] [address] Dr. Lucho De León LYMPH # 2.4 103/ul Normal 1.2-3.8 [facility] Comment on above: Performed By: #### A 1C #### [facility] [address] [place] [address] Dr. Lucho De León Lymphocytes/100 WBC (Bld) 32.1 % Normal 20.5-60.0 [facility] Comment on above: Performed By: #### A 1C #### [facility] [address] [place] [address] Dr. Lucho De León MANUAL DIFF REQ NO Normal [facility] Comment on above: Performed By: #### A 1C #### [facility] [address] [place] [address] Dr. Lucho De León MCH (RBC) [Entitic mass] 30.9 pg Normal 25.9-34.0 [facility] Comment on above: Performed By: #### A 1C #### [facility] [address] [place] [address] Dr. Lucho De León MCHC (RBC) [Mass/Vol] 33.0 g/dL Normal 29.9-35.2 [facility] Comment on above: Performed By: #### A 1C #### [facility] [address] [place] [address] Dr. Lucho De León MCV (RBC) [Entitic vol] 93.5 fL Normal 80.0-94.0 [facility] Comment on above: Performed By: #### A 1C #### [facility] [address] [place] [address] Dr. Lucho De León MONO # 0.8 103/ul Normal 0.3-0.8 [facility] Comment on above: Performed By: #### A 1C #### [facility] [address] [place] [address] Dr. Lucho De León Monocytes/100 WBC (Bld) 11.3 % Normal 1.7-12.0 [facility] Comment on above: Performed By: #### A 1C #### [facility] [address] [place] [address] Dr. Lucho De León NEUT # 4.0 103/ul Normal 1.4-6.5 [facility] Comment on above: Performed By: #### A 1C #### [facility] [address] [place] [address] Dr. Lucho De León Neutrophils/100 WBC (Bld) 54.2 % Normal 43.0-75.0 [facility] Comment on above: Performed By: #### A 1C #### [facility] [address] [place] [address] Dr. Lucho De León Platelet mean volume (Bld) [Entitic vol] 9.7 fL Normal 9.5-13.5 [facility] Comment on above: Performed By: #### A 1C #### [facility] [address] [place] [address] Dr. Lucho De León PLT 155 103/ul Normal 150-450 [facility] Comment on above: Performed By: #### A 1C #### [facility] [address] [place] [address] Dr. Lucho De León RBC 2.46 106/ul Critically low 4.70-6.10 [facility] Comment on above: Performed By: #### A 1C #### [facility] [address] [place] [address] Dr. Lucho De León WBC 7.4 103/ul Normal 4.0-11.0 [facility] Comment on above: Performed By: #### A 1C #### [facility] [address] [place] [address] Dr. Lucho De León HEMOGLOBIN AND HEMATOCRITon 03-29-2022 Hematocrit (Bld) [Volume fraction] 27.6 % Critically low 42.0-54.0 [facility] Comment on above: Performed By: #### A 1C #### [facility] [address] [place] [address] Dr. Lucho De León Hemoglobin (Bld) [Mass/Vol] 9.0 g/dL Critically low 14.0-18.0 [facility] Comment on above: Performed By: #### A 1C #### [facility] [address] [place] [address] Dr. Lucho De León POINT OF CARE GLUCOSEon 03-16 Glucose [Mass/Vol] 135 mg/dL Critically high [facility] Comment on above: Performed By: #### M ALBR #### [facility] [address] [place] [address] Dr. Lucho De León Glucose [Mass/Vol] 159 mg/dL Critically high [facility] Comment on above: Performed By: #### M ALBR #### [facility] [address] [address] [address] Lucho De León Glucose [Mass/Vol] 225 mg/dL Critically high [facility] Comment on above: Performed By: #### C VDTBH #### [facility] [address] [place] [address] Dr. Lucho De León Glucose [Mass/Vol] 181 mg/dL Critically high [facility] Comment on above: Performed By: #### P OCGLUC #### [facility] [address] [place] [address] Dr. Lucho De León PROF CHEM 8 (BAS METB)on Anion gap [Moles/Vol] 9.5 mmol/L Normal [facility] Comment on above: Performed By: #### A 1C #### [facility] [address] [place] [address] Dr. Lucho De León Calcium [Mass/Vol] 7.7 mg/dL Critically low 8.5-10.1 [facility] Comment on above: Performed By: #### A 1C #### [facility] [address] [address] [address] Lucho De León Chloride [Moles/Vol] 107 mmol/L Normal 98-107 [facility] Comment on above: Performed By: #### A 1C #### [facility] [address] [address] [address] Lucho De León CO2 [Moles/Vol] 23.7 mmol/L Normal 21.0-32.0 [facility] Comment on above: Performed By: #### A 1C #### [facility] [address] [address] [address] Lucho De León Creatinine [Mass/Vol] 0.58 mg/dL Critically low 0.70-1.30 [facility] Comment on above: Performed By: #### A 1C #### [facility] [address] [place] [address] Dr. Lucho De León EGFR-AF YEMENI >60 Normal >=60 [facility] Comment on above: Performed By: #### A 1C #### [facility] [address] [address] [address] Lucho De León EGFR-NON AF YEMENI >60 Normal >=60 [facility] Comment on above: Performed By: #### A 1C #### [facility] [address] [place] [address] Dr. Lucho De León Glucose [Mass/Vol] 125 mg/dL Critically high 74-106 [facility] Comment on above: Performed By: #### A 1C #### [facility] [address] [place] [address] Dr. Lucho De León Potassium [Moles/Vol] 4.2 mmol/L Normal 3.5-5.1 [facility] Comment on above: Performed By: #### A 1C #### [facility] [address] [address] [address] Lucho De León Sodium [Moles/Vol] 136 mmol/L Normal 136-145 [facility] Comment on above: Performed By: #### A 1C #### [facility] [address] [address] [address] Lucho De León Urea nitrogen [Mass/Vol] 15.0 mg/dL Normal 7.0-18.0 [facility] Comment on above: Performed By: #### A 1C #### [facility] [address] [place] [address] Dr. Lucho De León Urea nitrogen/Creatinine [Mass ratio] 25.9 mg/mg Normal [facility] Comment on above: Performed By: #### A 1C #### [facility] [address] [place] [address] Dr. Lucho De León CBC AUTO DIFFon 03-28-2022 BASO # 0.0 103/ul Normal 0.0-0.1 [facility] Comment on above: Performed By: #### B MP #### [facility] [address] [place] [address] Dr. Lucho De León Basophils/100 WBC (Bld) 0.3 % Normal 0.2-2.0 [facility] Comment on above: Performed By: #### B MP #### [facility] [address] [place] [address] Dr. Lucho De Lenó EO # 0.0 103/ul Normal 0.0-0.7 [facility] Comment on above: Performed By: #### B MP #### [facility] [address] [place] [address] Dr. Lucho De León Eosinophils/100 WBC (Bld) 0.4 % Critically low 0.9-7.0 [facility] Comment on above: Performed By: #### B MP #### [facility] [address] [place] [address] Dr. Lucho De León Erythrocyte distribution width (RBC) [Ratio] 15.8 % Critically high 11.0-15.0 [facility] Comment on above: Performed By: #### B MP #### [facility] [address] [place] [address] Dr. Lucho De León Hematocrit (Bld) [Volume fraction] 23.6 % Critically low 42.0-54.0 [facility] Comment on above: Performed By: #### B MP #### [facility] [address] [address] [address] Lucho De León Hemoglobin (Bld) [Mass/Vol] 7.9 g/dL Critically low 14.0-18.0 [facility] Comment on above: Performed By: #### B MP #### [facility] [address] [address] [address] Lucho De León IG # 0.17 10e3/ul Critically high 0.00-0.03 [facility] Comment on above: Performed By: #### B MP #### [facility] [address] [place] [address] Dr. Lucho De León IG % 1.6 % Critically high 0.0-0.5 [facility] Comment on above: Performed By: #### B MP #### [facility] [address] [place] [address] Dr. Lucho De León LYMPH # 2.8 103/ul Normal 1.2-3.8 [facility] Comment on above: Performed By: #### B MP #### [facility] [address] [place] [address] Dr. Lucho De León Lymphocytes/100 WBC (Bld) 27.0 % Normal 20.5-60.0 [facility] Comment on above: Performed By: #### B MP #### [facility] [address] [place] [address] Dr. Lucho De León MANUAL DIFF REQ NO Normal [facility] Comment on above: Performed By: #### B MP #### [facility] [address] [address] [address] Lucho De León MCH (RBC) [Entitic mass] 30.3 pg Normal 25.9-34.0 [facility] Comment on above: Performed By: #### B MP #### [facility] [address] [place] [address] Dr. Lucho De León MCHC (RBC) [Mass/Vol] 33.5 g/dL Normal 29.9-35.2 [facility] Comment on above: Performed By: #### B MP #### [facility] [address] [place] [address] Dr. Lucho De León MCV (RBC) [Entitic vol] 90.4 fL Normal 80.0-94.0 [facility] Comment on above: Performed By: #### B MP #### [facility] [address] [address] [address] Lucho De León MONO # 1.2 103/ul Critically high 0.3-0.8 [facility] Comment on above: Performed By: #### B MP #### [facility] [address] [address] [address] Lucho De León Monocytes/100 WBC (Bld) 11.6 % Normal 1.7-12.0 [facility] Comment on above: Performed By: #### B MP #### [facility] [address] [place] [address] Dr. Lucho De León NEUT # 6.2 103/ul Normal 1.4-6.5 [facility] Comment on above: Performed By: #### B MP #### [facility] [address] [place] [address] Dr. Lucho De León Neutrophils/100 WBC (Bld) 59.1 % Normal 43.0-75.0 [facility] Comment on above: Performed By: #### B MP #### [facility] [address] [place] [address] Dr. Lucho De León Platelet mean volume (Bld) [Entitic vol] 10.1 fL Normal 9.5-13.5 [facility] Comment on above: Performed By: #### B MP #### [facility] [address] [place] [address] Dr. Lucho De León PLT 166 103/ul Normal 150-450 [facility] Comment on above: Performed By: #### B MP #### [facility] [address] [place] [address] Dr. Lucho De León RBC 2.61 106/ul Critically low 4.70-6.10 [facility] Comment on above: Performed By: #### B MP #### [facility] [address] [place] [address] Dr. Lucho De León WBC 10.5 103/ul Normal 4.0-11.0 [facility] Comment on above: Performed By: #### B MP #### [facility] [address] [place] [address] Dr. Lucho De León HEMOGLOBIN AND HEMATOCRITon 03-28-2022 Hematocrit (Bld) [Volume fraction] 26.4 % Critically low 42.0-54.0 [facility] Comment on above: Performed By: #### H GBHCT #### [facility] [address] [place] [address] Dr. Lucho De León Hemoglobin (Bld) [Mass/Vol] 8.8 g/dL Critically low 14.0-18.0 [facility] Comment on above: Performed By: #### H GBHCT #### [facility] [address] [place] [address] Dr. Lucho De León Hematocrit (Bld) [Volume fraction] 20.9 % Critically low 42.0-54.0 [facility] Comment on above: Performed By: #### C VDTBH #### [facility] [address] [place] [address] Dr. Lucho De León Hemoglobin (Bld) [Mass/Vol] 7.1 g/dL Critically low 14.0-18.0 [facility] Comment on above: Performed By: #### C VDTBH #### [facility] [address] [place] [address] Dr. Lucho De León POINT OF CARE GLUCOSEon 03-16 Glucose [Mass/Vol] 132 mg/dL Critically high 74-106 [facility] Comment on above: Performed By: #### C BC #### [facility] [address] [place] [address] Dr. Lucho De León Glucose [Mass/Vol] 198 mg/dL Critically high 74-106 [facility] Comment on above: Performed By: #### A 1C #### [facility] [address] [place] [address] Dr. Lucho De León Glucose [Mass/Vol] 82 mg/dL Normal 74-106 [facility] Comment on above: Performed By: #### C BC #### [facility] [address] [address] [address] Lucho De León Glucose [Mass/Vol] 85 mg/dL Normal 74-106 [facility] Comment on above: Performed By: #### C VDTBH #### [facility] [address] [address] [address] Lucho De León Glucose [Mass/Vol] 115 mg/dL Critically high 74-106 [facility] Comment on above: Performed By: #### A 1C #### [facility] [address] [place] [address] Dr. Lucho De León PROF CHEM 8 (BAS METB)on Anion gap [Moles/Vol] 10.6 mmol/L Normal [facility] Comment on above: Performed By: #### M ALBR #### [facility] [address] [place] [address] Dr. Lucho De León Calcium [Mass/Vol] 8.0 mg/dL Critically low 8.5-10.1 [facility] Comment on above: Performed By: #### M ALBR #### [facility] [address] [place] [address] Dr. Lucho De León Chloride [Moles/Vol] 108 mmol/L Critically high 98-107 [facility] Comment on above: Performed By: #### M ALBR #### [facility] [address] [place] [address] Dr. Lucho De León CO2 [Moles/Vol] 23.6 mmol/L Normal 21.0-32.0 [facility] Comment on above: Performed By: #### M ALBR #### [facility] [address] [place] [address] Dr. Lucho De León Creatinine [Mass/Vol] 0.54 mg/dL Critically low 0.70-1.30 [facility] Comment on above: Performed By: #### M ALBR #### [facility] [address] [place] [address] Dr. Lucho De León EGFR-AF YEMENI >60 Normal >=60 [facility] Comment on above: Performed By: #### M ALBR #### [facility] [address] [address] [address] Lucho De León EGFR-NON AF YEMENI >60 Normal >=60 [facility] Comment on above: Performed By: #### M ALBR #### [facility] [address] [address] [address] Lucho De León Glucose [Mass/Vol] 126 mg/dL Critically high 74-106 [facility] Comment on above: Performed By: #### M ALBR #### [facility] [address] [place] [address] Dr. Lucho De León Potassium [Moles/Vol] 4.2 mmol/L Normal 3.5-5.1 [facility] Comment on above: Performed By: #### M ALBR #### [facility] [address] [place] [address] Dr. Lucho De León Sodium [Moles/Vol] 138 mmol/L Normal 136-145 [facility] Comment on above: Performed By: #### M ALBR #### [facility] [address] [place] [address] Dr. Lucho De León Urea nitrogen [Mass/Vol] 28.0 mg/dL Critically high 7.0-18.0 [facility] Comment on above: Performed By: #### M ALBR #### [facility] [address] [place] [address] Dr. Lucho De León Urea nitrogen/Creatinine [Mass ratio] 51.9 mg/mg Normal [facility] Comment on above: Performed By: #### M ALBR #### [facility] [address] [place] [address] Dr. Lucho De León CBC W MANUAL DIFFon 03-27-20 22 ATYPICAL LYMPH # Normal [facility] Comment on above: Performed By: #### C VDTBH #### [facility] [address] [place] [address] Dr. Lucho De León ATYPICAL LYMPH % Normal [facility] Comment on above: Performed By: #### C VDTBH #### [facility] [address] [place] [address] Dr. Lucho De León BAND # 0.4 103/ul Critically high 0.0-0.3 [facility] Comment on above: Performed By: #### C VDTBH #### [facility] [address] [place] [address] Dr. Lucho De León BAND % 3 % Normal 0-5 [facility] Comment on above: Performed By: #### C VDTBH #### [facility] [address] [place] [address] Dr. Lucho De León BASOM # 0.00 103/ul Normal 0.00-0.10 [facility] Comment on above: Performed By: #### C VDTBH #### [facility] [address] [place] [address] Dr. Lucho De León BASOM % 0.0 % Critically low 0.2-2.0 [facility] Comment on above: Performed By: #### C VDTBH #### [facility] [address] [place] [address] Dr. Lucho De León BLAST # Normal [facility] Comment on above: Performed By: #### C VDTBH #### [facility] [address] [place] [address] Dr. Lucho De León BLAST % Normal [facility] Comment on above: Performed By: #### C VDTBH #### [facility] [address] [place] [address] Dr. Lucho De León CORRECTED WBC Normal 4.0-11.0 [facility] Comment on above: Performed By: #### C VDTBH #### [facility] [address] [place] [address] Dr. Lucho De León EOS # 0.00 103/ul Normal 0.00-0.70 [facility] Comment on above: Performed By: #### C VDTBH #### [facility] [address] [place] [address] Dr. Lucho De León EOS% 0.0 % Critically low 0.9-7.0 [facility] Comment on above: Performed By: #### C VDTBH #### [facility] [address] [place] [address] Dr. Lucho De León HCT 25.1 % Critically low 42.0-54.0 [facility] Comment on above: Performed By: #### C VDTBH #### [facility] [address] [place] [address] Dr. Lucho De León HGB 8.5 g/dl Critically low 14.0-18.0 [facility] Comment on above: Performed By: #### C VDTBH #### [facility] [address] [place] [address] Dr. Lucho De León LYMPHM # 2.10 103/ul Normal 1.20-3.80 [facility] Comment on above: Performed By: #### C VDTBH #### [facility] [address] [place] [address] Dr. Lucho De León LYMPHM% 15.0 % Critically low 20.5-60.0 [facility] Comment on above: Performed By: #### C VDTBH #### [facility] [address] [place] [address] Dr. Lucho De León MCH 30.9 pg Normal 25.9-34.0 [facility] Comment on above: Performed By: #### C VDTBH #### [facility] [address] [place] [address] Dr. Lucho De León MCHC 33.9 g/dl Normal 29.9-35.2 [facility] Comment on above: Performed By: #### C VDTBH #### [facility] [address] [place] [address] Dr. Luhco De León MCV 91.3 fL Normal 80.0-94.0 [facility] Comment on above: Performed By: #### C VDTBH #### [facility] [address] [place] [address] Dr. Lucho De León METAMYELOCYTE # Normal [facility] Comment on above: Performed By: #### C VDTBH #### [facility] [address] [place] [address] Dr. Lucho De León METAMYELOCYTE % Normal [facility] Comment on above: Performed By: #### C VDTBH #### [facility] [address] [address] [address] Lucho De León MONOM# 0.98 103/ul Critically high 0.30-0.80 [facility] Comment on above: Performed By: #### C VDTBH #### [facility] [address] [address] [address] Lucho De León MONOM% 7.0 % Normal 1.7-12.0 [facility] Comment on above: Performed By: #### C VDTBH #### [facility] [address] [address] [address] Lucho De León MPV 10.7 fL Normal 9.5-13.5 [facility] Comment on above: Performed By: #### C VDTBH #### [facility] [address] [place] [address] Dr. Lucho De León MYELOCYTE # Normal [facility] Comment on above: Performed By: #### C VDTBH #### [facility] [address] [place] [address] Dr. Lucho De León MYELOCYTE % Normal [facility] Comment on above: Performed By: #### C VDTBH #### [facility] [address] [place] [address] Dr. Lucho De León NRBC 3 Normal [facility] Comment on above: Performed By: #### C VDTBH #### [facility] [address] [place] [address] Dr. Lucho De León PLT 176 103/ul Normal 150-450 [facility] Comment on above: Performed By: #### C VDTBH #### [facility] [address] [address] [address] Lucho De León RBC 2.75 106/ul Critically low 4.70-6.10 [facility] Comment on above: Performed By: #### C VDTBH #### [facility] [address] [place] [address] Dr. Lucho De León RDW 14.2 % Normal 11.0-15.0 [facility] Comment on above: Performed By: #### C VDTBH #### [facility] [address] [address] [address] Lucho De León SEG # 10.50 103/ul Critically high 1.40-6.50 [facility] Comment on above: Performed By: #### C VDTBH #### [facility] [address] [place] [address] Dr. Lucho De León SEG % 75.0 % Normal 43.0-75.0 [facility] Comment on above: Performed By: #### C VDTBH #### [facility] [address] [place] [address] Dr. Lucho De León WBC 14.0 103/ul Critically high 4.0-11.0 [facility] Comment on above: Performed By: #### C VDTBH #### [facility] [address] [place] [address] Dr. Lucho De León HEMOGLOBIN AND HEMATOCRITon 03-27-2022 Hematocrit (Bld) [Volume fraction] 24.4 % Critically low 42.0-54.0 [facility] Comment on above: Performed By: #### H GBHCT #### [facility] [address] [place] [address] Dr. Lucho De León Hemoglobin (Bld) [Mass/Vol] 8.3 g/dL Critically low 14.0-18.0 [facility] Comment on above: Performed By: #### H GBHCT #### [facility] [address] [place] [address] Dr. Lucho De León POINT OF CARE GLUCOSEon 03-16 Glucose [Mass/Vol] 222 mg/dL Critically high 74-106 [facility] Comment on above: Performed By: #### B MP #### [facility] [address] [place] [address] Dr. Lucho De León Glucose [Mass/Vol] 330 mg/dL Critically high 74-106 [facility] Comment on above: Performed By: #### H GBHCT #### [facility] [address] [place] [address] Dr. Lucho De León Glucose [Mass/Vol] 357 mg/dL Critically high 74-106 [facility] Comment on above: Performed By: #### A 1C #### [facility] [address] [place] [address] Dr. Lucho De León Glucose [Mass/Vol] 257 mg/dL Critically high 74-106 [facility] Comment on above: Performed By: #### M ALBR #### [facility] [address] [place] [address] Dr. Lucho De León Glucose [Mass/Vol] 330 mg/dL Critically high 74-106 [facility] Comment on above: Performed By: #### C VDTB #### [facility] [address] [place] [address] Dr. Lucho De León PROF CHEM 8 (BAS METB)on Anion gap [Moles/Vol] 15.3 mmol/L Normal [facility] Comment on above: Performed By: #### B MP #### [facility] [address] [place] [address] Dr. Lucho De León Calcium [Mass/Vol] 7.9 mg/dL Critically low 8.5-10.1 [facility] Comment on above: Performed By: #### B MP #### [facility] [address] [place] [address] Dr. Lucho De León Chloride [Moles/Vol] 106 mmol/L Normal 98-107 [facility] Comment on above: Performed By: #### B MP #### [facility] [address] [place] [address] Dr. Lucho De León CO2 [Moles/Vol] 20.9 mmol/L Critically low 21.0-32.0 [facility] Comment on above: Performed By: #### B MP #### [facility] [address] [place] [address] Dr. Lucho De León Creatinine [Mass/Vol] 0.84 mg/dL Normal 0.70-1.30 [facility] Comment on above: Performed By: #### B MP #### [facility] [address] [place], [place] [id number] Dr. Lucho De León EGFR-AF YEMENI >60 Normal >=60 [facility] Comment on above: Performed By: #### B MP #### [facility] [address] [address] [address] Lucho De León EGFR-NON AF YEMENI >60 Normal >=60 [facility] Comment on above: Performed By: #### B MP #### [facility] [address] [address] [address] Lucho De León Glucose [Mass/Vol] 275 mg/dL Critically high 74-106 [facility] Comment on above: Performed By: #### B MP #### [facility] [address] [place] [address] Dr. Lucho De León Potassium [Moles/Vol] 5.2 mmol/L Critically high 3.5-5.1 [facility] Comment on above: Performed By: #### B MP #### [facility] [address] [address] [address] Lucho De León Sodium [Moles/Vol] 137 mmol/L Normal 136-145 [facility] Comment on above: Performed By: #### B MP #### [facility] [address] [place] [address] Dr. Lucho De León Urea nitrogen [Mass/Vol] 57.0 mg/dL Critically high 7.0-18.0 [facility] Comment on above: Performed By: #### B MP #### [facility] [address] [place] [address] Dr. Lucho De León Urea nitrogen/Creatinine [Mass ratio] 67.9 mg/mg Normal [facility] Comment on above: Performed By: #### B MP #### [facility] [address] [address] [address] Lucho De León TYPE AND SCREENon 03-27-2022 TYPE AND SCREEN Negative Normal [facility] Comment on above: Performed By: #### M ALBR #### [facility] [address] [place] [address] Dr. Lucho De León ABO RH RETYPEon 06-11-2022 ABO and Rh group Nom (Bld) DONE Normal [facility] Comment on above: Performed By: #### C VDTBH #### [facility] [address] [place] [address] Dr. Lucho De León AMYLASEon 03-26-2022 Amylase [Catalytic activity/Vol] 34 U/L Normal 25-115 [facility] Comment on above: Performed By: #### C BC #### [facility] [address] [place] [address] Dr. Lucho De León CBC AUTO DIFFon 03-26-2022 BASO # 0.0 103/ul Normal 0.0-0.1 [facility] Comment on above: Performed By: #### C BC #### [facility] [address] [place] [address] Dr. Lucho De León Basophils/100 WBC (Bld) 0.3 % Normal 0.2-2.0 [facility] Comment on above: Performed By: #### C BC #### [facility] [address] [place] [address] Dr. Lucho De León EO # 0.0 103/ul Normal 0.0-0.7 [facility] Comment on above: Performed By: #### C BC #### [facility] [address] [place] [address] Dr. Lucho De León Eosinophils/100 WBC (Bld) 0.3 % Critically low 0.9-7.0 [facility] Comment on above: Performed By: #### C BC #### [facility] [address] [place] [address] Dr. Lucho De León Erythrocyte distribution width (RBC) [Ratio] 13.9 % Normal 11.0-15.0 [facility] Comment on above: Performed By: #### C BC #### [facility] [address] [place] [address] Dr. Lucho De León Hematocrit (Bld) [Volume fraction] 30.5 % Critically low 42.0-54.0 [facility] Comment on above: Performed By: #### C BC #### [facility] [address] [place] [address] Dr. Lucho De León Hemoglobin (Bld) [Mass/Vol] 10.0 g/dL Critically low 14.0-18.0 [facility] Comment on above: Performed By: #### C BC #### [facility] [address] [place] [address] Dr. Lucho De León IG # 0.12 10e3/ul Critically high 0.00-0.03 [facility] Comment on above: Performed By: #### C BC #### [facility] [address] [place] [address] Dr. Lucho De León IG % 1.0 % Critically high 0.0-0.5 [facility] Comment on above: Performed By: #### C BC #### [facility] [address] [place] [address] Dr. Lucho De León LYMPH # 1.4 103/ul Normal 1.2-3.8 [facility] Comment on above: Performed By: #### C BC #### [facility] [address] [place] [address] Dr. Lucho De León Lymphocytes/100 WBC (Bld) 12.5 % Critically low 20.5-60.0 [facility] Comment on above: Performed By: #### C BC #### [facility] [address] [place] [address] Dr. Lucho De León MANUAL DIFF REQ NO Normal [facility] Comment on above: Performed By: #### C BC #### [facility] [address] [place] [address] Dr. Lucho De León MCH (RBC) [Entitic mass] 31.2 pg Normal 25.9-34.0 [facility] Comment on above: Performed By: #### C BC #### [facility] [address] [place] [address] Dr. Lucho De León MCHC (RBC) [Mass/Vol] 32.8 g/dL Normal 29.9-35.2 [facility] Comment on above: Performed By: #### C BC #### [facility] [address] [place] [address] Dr. Lucho De León MCV (RBC) [Entitic vol] 95.0 fL Critically high 80.0-94.0 [facility] Comment on above: Performed By: #### C BC #### [facility] [address] [place] [address] Dr. Lucho De León MONO # 0.8 103/ul Normal 0.3-0.8 [facility] Comment on above: Performed By: #### C BC #### [facility] [address] [place] [address] Dr. Lucho De León Monocytes/100 WBC (Bld) 6.9 % Normal 1.7-12.0 [facility] Comment on above: Performed By: #### C BC #### [facility] [address] [place] [address] Dr. Lucho De León NEUT # 9.0 103/ul Critically high 1.4-6.5 [facility] Comment on above: Performed By: #### C BC #### [facility] [address] [place] [address] Dr. Lucho De León Neutrophils/100 WBC (Bld) 79.0 % Critically high 43.0-75.0 [facility] Comment on above: Performed By: #### C BC #### [facility] [address] [place] [address] Dr. Lucho De León Platelet mean volume (Bld) [Entitic vol] 10.2 fL Normal 9.5-13.5 [facility] Comment on above: Performed By: #### C BC #### [facility] [address] [place] [address] Dr. Lucho De León PLT 226 103/ul Normal 150-450 [facility] Comment on above: Performed By: #### C BC #### [facility] [address] [place], [place] [id number] Dr. Lucho De León RBC 3.21 106/ul Critically low 4.70-6.10 [facility] Comment on above: Performed By: #### C BC #### [facility] [address] [place] [address] Dr. Lucho De León WBC 11.4 103/ul Critically high 4.0-11.0 [facility] Comment on above: Performed By: #### C BC #### [facility] [address] [place] [address] Dr. Lucho De León CBC W MANUAL DIFFon 03-26-20 22 ATYPICAL LYMPH # Normal [facility] Comment on above: Performed By: #### M ALBR #### [facility] [address] [place] [address] Dr. Lucho De León ATYPICAL LYMPH % Normal [facility] Comment on above: Performed By: #### M ALBR #### [facility] [address] [place] [address] Dr. Lucho De León BAND # 0.3 103/ul Normal 0.0-0.3 [facility] Comment on above: Performed By: #### M ALBR #### [facility] [address] [place] [address] Dr. Lucho De León BAND % 2 % Normal 0-5 [facility] Comment on above: Performed By: #### M ALBR #### [facility] [address] [place] [address] Dr. Lucho De León BASOM # 0.00 103/ul Normal 0.00-0.10 [facility] Comment on above: Performed By: #### M ALBR #### [facility] [address] [place] [address] Dr. Lucho De León BASOM % 0.0 % Critically low 0.2-2.0 The [facility] Comment on above: Performed By: #### M ALBR #### [facility] [address] [place] [address] Dr. Lucho De León BLAST # Normal [facility] Comment on above: Performed By: #### M ALBR #### [facility] [address] [place] [address] Dr. Lucho De León BLAST % Normal [facility] Comment on above: Performed By: #### M ALBR #### [facility] [address] [place] [address] Dr. Lucho De León CORRECTED WBC Normal 4.0-11.0 [facility] Comment on above: Performed By: #### M ALBR #### [facility] [address] [address] [address] Lucho De León EOS # 0.00 103/ul Normal 0.00-0.70 [facility] Comment on above: Performed By: #### M ALBR #### [facility] [address] [address] [address] Lucho De León EOS% 0.0 % Critically low 0.9-7.0 [facility] Comment on above: Performed By: #### M ALBR #### [facility] [address] [address] [address] Lucho De León HCT 20.0 % Critically low 42.0-54.0 [facility] Comment on above: Performed By: #### M ALBR #### [facility] [address] [place] [address] Dr. Lucho De León HGB 6.7 g/dl Critically low 14.0-18.0 [facility] Comment on above: Performed By: #### M ALBR #### [facility] [address] [place] [address] Dr. Lucho De León LYMPHM # 2.53 103/ul Normal 1.20-3.80 [facility] Comment on above: Performed By: #### M ALBR #### [facility] [address] [place] [address] Dr. Lucho De León LYMPHM% 17.0 % Critically low 20.5-60.0 [facility] Comment on above: Performed By: #### M ALBR #### [facility] [address] [place] [address] Dr. Lucho De León MCH 30.6 pg Normal 25.9-34.0 [facility] Comment on above: Performed By: #### M ALBR #### [facility] [address] [place] [address] Dr. Lucho De León MCHC 33.5 g/dl Normal 29.9-35.2 [facility] Comment on above: Performed By: #### M ALBR #### [facility] [address] [place] [address] Dr. Lucho De León MCV 91.3 fL Normal 80.0-94.0 [facility] Comment on above: Performed By: #### M ALBR #### [facility] [address] [place] [address] Dr. Lucho De León METAMYELOCYTE # Normal [facility] Comment on above: Performed By: #### M ALBR #### [facility] [address] [place] [address] Dr. Lucho De León METAMYELOCYTE % Normal [facility] Comment on above: Performed By: #### M ALBR #### [facility] [address] [place] [address] Dr. Lucho De León MONOM# 0.00 103/ul Critically low 0.30-0.80 [facility] Comment on above: Performed By: #### M ALBR #### [facility] [address] [place] [address] Dr. Lucho De León MONOM% 0.0 % Critically low 1.7-12.0 [facility] Comment on above: Performed By: #### M ALBR #### [facility] [address] [place] [address] Dr. Lucho De León MPV 10.9 fL Normal 9.5-13.5 [facility] Comment on above: Performed By: #### M ALBR #### [facility] [address] [place] [address] Dr. Lucho De León MYELOCYTE # Normal [facility] Comment on above: Performed By: #### M ALBR #### [facility] [address] [place] [address] Dr. Lucho De León MYELOCYTE % Normal [facility] Comment on above: Performed By: #### M ALBR #### [facility] [address] [place] [address] Dr. Lucho De León NRBC 2 Normal [facility] Comment on above: Performed By: #### M ALBR #### [facility] [address] [place] [address] Dr. Lucho De León PLT 214 103/ul Normal 150-450 [facility] Comment on above: Result Comment: Prev iously reported as: 69 On 03/26/2022 21:36 By [id number] Performed By: #### M ALBR #### [facility] [address] [address] [address] Lucho De León RBC 2.19 106/ul Critically low 4.70-6.10 [facility] Comment on above: Performed By: #### M ALBR #### [facility] [address] [address] [address] Lucho De León RDW 14.0 % Normal 11.0-15.0 [facility] Comment on above: Performed By: #### M ALBR #### [facility] [address] [address] [address] Lucho De León SEG # 12.07 103/ul Critically high 1.40-6.50 [facility] Comment on above: Performed By: #### M ALBR #### [facility] [address] [address] [address] Lucho De León SEG % 81.0 % Critically high 43.0-75.0 [facility] Comment on above: Performed By: #### M ALBR #### [facility] [address] [address] [address] Lucho De León WBC 14.9 103/ul Critically high 4.0-11.0 [facility] Comment on above: Performed By: #### M ALBR #### [facility] [address] [address] [address]ón [address] ABD/PELV W [...] ROSARIO BLANCO Date: 2022-03-26 05:29 Normal [facility]16 SARS-CoV-2 (COVID-19) RNA IVANNA+probe Ql (Unsp spec) Not detected Normal NOT DETECTED [facility] Comment on above: Result Comment: When [...] for this test is supported by the [place] [employer] and Human Service's declaration that [...] used). Performed By: #### C VDTB #### [facility] [address] [place] [address] Dr. Lucho De León ER URINE PROFILEon 2 Bilirubin Ql (U) Negative Normal NEGATIVE [facility] Comment on above: Performed By: #### A 1C #### [facility] [address] [place] [address] Dr. Lucho De León Clarity (U) CLEAR Normal CLEAR [facility] Comment on above: Performed By: #### A 1C #### [facility] [address] [place] [address] Dr. Lucho De León Color (U) LT. YELLOW Normal YELLOW [facility] Comment on above: Performed By: #### A 1C #### [facility] [address] [place] [address] Dr. Lucho De León ERUAHD A micrscopic examination will be performed if indicated. Normal [facility] Comment on above: Performed By: #### A 1C #### [facility] [address] [place] [address] Dr. Lucho De León Glucose Ql (U) >1000 Abnormal NEGATIVE The [facility] Comment on above: Performed By: #### A 1C #### [facility] [address] [place] [address] Dr. Lucho De León Hemoglobin Ql (U) Negative Normal NEGATIVE [facility] Comment on above: Performed By: #### A 1C #### [facility] [address] [place] [address] Dr. Lucho De León Ketones Ql (U) 15 mg/dl Abnormal NEGATIVE [facility] Comment on above: Performed By: #### A 1C #### [facility] [address] [place] [address] Dr. Lucho De León LEUKOCYTES Negative Normal NEGATIVE [facility] Comment on above: Performed By: #### A 1C #### [facility] [address] [place] [address] Dr. Lucho De León Nitrite Ql (U) Negative Normal NEGATIVE [facility] Comment on above: Performed By: #### A 1C #### [facility] [address] [place] [address] Dr. Lucho De León pH (U) 5.0 [pH] Normal 5-9 [facility] Comment on above: Performed By: #### A 1C #### [facility] [address] [place] [address] Dr. Lucho De León SPEC GRAVITY <=1.005 Abnormal 1.005-<=1.025 [facility] Comment on above: Performed By: #### A 1C #### [facility] [address] [place] [address] Dr. Lucho De León UA PROTEIN Negative Normal NEGATIVE/ TRACE [facility] Comment on above: Performed By: #### A 1C #### [facility] [address] [place] [address] Dr. Lucho De León UR MICRO IND NOT INDICATED Normal [facility] Comment on above: Performed By: #### A 1C #### [facility] [address] [place] [address] Dr. Lucho De León Urobilinogen Qn (U) 0.2 {Danny'U}/dL Normal 0.2 - 1. 0 [facility] Comment on above: Performed By: #### A 1C #### [facility] [address] [place] [address] Dr. Lucho De León LIPASEon 03-26-2022 Lipase [Catalytic activity/Vol] 69.0 U/L Critically low 73.0-393.0 [facility] Comment on above: Performed By: #### C BC #### [facility] [address] [place] [address] Dr. Lucho De León OCC BLD IMMUNO SCREENon 03-16 OCCULT BLOOD Positive Abnormal NEGATIVE [facility] Comment on above: Performed By: #### H GBHCT #### [facility] [address] [place] [address] Dr. Lucho De León POINT OF CARE GLUCOSEon 03-16 Glucose [Mass/Vol] 271 mg/dL Critically high 74-106 T [facility] Comment on above: Performed By: #### B #### [facility] [address] [place] [address] Dr. Lucho De León PROF 14(COMP METB)on 022 Albumin [Mass/Vol] 2.7 g/dL Critically low 3.4-5.0 [facility] Comment on above: Performed By: #### C VDTBH #### [facility] [address] [place] [address] Dr. Lucho De León ALP [Catalytic activity/Vol] 53 U/L Normal 46-116 [facility] Comment on above: Performed By: #### C VDTBH #### [facility] [address] [place] [address] Dr. Lucho De León ALT [Catalytic activity/Vol] 18 U/L Normal 16-63 [facility] Comment on above: Performed By: #### C VDTBH #### [facility] [address] [place] [address] Dr. Lucho De León Anion gap [Moles/Vol] 18.7 mmol/L Normal [facility] Comment on above: Performed By: #### C VDTBH #### [facility] [address] [place] [address] Dr. Lucho De León AST [Catalytic activity/Vol] 14 U/L Critically low 15-37 [facility] Comment on above: Performed By: #### C VDTBH #### [facility] [address] [place] [address] Dr. Lucho De León Bilirubin [Mass/Vol] 0.2 mg/dL Normal 0.2-1.0 [facility] Comment on above: Performed By: #### C VDTBH #### [facility] [address] [place] [address] Dr. Lucho De León Chloride [Moles/Vol] 99 mmol/L Normal 98-107 [facility] Comment on above: Performed By: #### C VDTBH #### [facility] [address] [place] [address] Dr. Lucho De León CO2 [Moles/Vol] 18.3 mmol/L Critically low 21.0-32.0 [facility] Comment on above: Performed By: #### C VDTBH #### [facility] [address] [address] [address] Lucho De León Creatinine [Mass/Vol] 0.75 mg/dL Normal 0.70-1.30 [facility] Comment on above: Performed By: #### C VDTBH #### [facility] [address] [address] [address] Lucho De León Globulin (S) [Mass/Vol] 2.6 g/dL Normal [facility] Comment on above: Performed By: #### C VDTBH #### [facility] [address] [address] [address] Lucho De León Glucose [Mass/Vol] 323 mg/dL Critically high 74-106 T [facility] Comment on above: Performed By: #### C VDTBH #### [facility] [address] [address] [address] Lucho De León Potassium [Moles/Vol] 5.0 mmol/L Normal 3.5-5.1 [facility] Comment on above: Performed By: #### C VDTBH #### [facility] [address] [address] [address] Lucho De León Protein [Mass/Vol] 5.3 g/dL Critically low 6.4-8.2 Th [facility] Comment on above: Performed By: #### C VDTBH #### [facility] [address] [address] [address] Lucho De León Sodium [Moles/Vol] 131 mmol/L Critically low 136-145 Th [facility] Comment on above: Performed By: #### C VDTBH #### [facility] [address] [address] [address] Lucho De León Urea nitrogen [Mass/Vol] 65.0 mg/dL Critically high 7.0-18.0 [facility] Comment on above: Performed By: #### C VDTBH #### [facility] [address] [place] [address] Dr. Lucho De León Urea nitrogen/Creatinine [Mass ratio] 86.7 mg/mg Normal [facility] Comment on above: Performed By: #### C VDTBH #### [facility] [address] [place] [address] Dr. Lucho De León Albumin [Mass/Vol] 3.0 g/dL Critically low 3.4-5.0 Th [facility] Comment on above: Performed By: #### C BC #### [facility] [address] [place] [address] Dr. Lucho De León Albumin/Globulin [Mass ratio] 1.0 {ratio} Normal [facility] Comment on above: Performed By: #### C VDTBH #### [facility] [address] [place] [address] Dr. Lucho De León Performed By: #### C BC #### [facility] [address] [place] [address] Dr. Lucho De León ALP [Catalytic activity/Vol] 64 U/L Normal 46-116 [facility] Comment on above: Performed By: #### C BC #### [facility] [address] [place] [address] Dr. Lucho De León ALT [Catalytic activity/Vol] 20 U/L Normal 16-63 [facility] Comment on above: Performed By: #### C BC #### [facility] [address] [place] [address] Dr. Lucho De León Anion gap [Moles/Vol] 14.2 mmol/L Normal [facility] Comment on above: Performed By: #### C BC #### [facility] [address] [place] [address] Dr. Lucho De León AST [Catalytic activity/Vol] 11 U/L Critically low 15-37 [facility] Comment on above: Performed By: #### C BC #### [facility] [address] [place] [address] Dr. Lucho De León Bilirubin [Mass/Vol] 0.3 mg/dL Normal 0.2-1.0 [facility] Comment on above: Performed By: #### C BC #### [facility] [address] [address] [address] Lucho De León Calcium [Mass/Vol] 8.3 mg/dL Critically low 8.5-10.1 Th e [facility] Comment on above: Performed By: #### C VDTBH #### [facility] [address] [place] [address] Dr. Lucho De León Performed By: #### C BC #### [facility] [address] [place] [address] Dr. Lucho De León Chloride [Moles/Vol] 102 mmol/L Normal 98-107 [facility] Comment on above: Performed By: #### C BC #### [facility] [address] [place] [address] Dr. Lucho De León CO2 [Moles/Vol] 23.4 mmol/L Normal 21.0-32.0 [facility] Comment on above: Performed By: #### C BC #### [facility] [address] [place] [address] Dr. Lucho De León Creatinine [Mass/Vol] 0.81 mg/dL Normal 0.70-1.30 [facility] Comment on above: Performed By: #### C BC #### [facility] [address] [place] [address] Dr. Lucho De León EGFR-AF YEMENI >60 Normal >=60 [facility] Comment on above: Performed By: #### C VDTBH #### [facility] [address] [place] [address] Dr. Lucho De León Performed By: #### C BC #### [facility] [address] [place] [address] Dr. Lucho De León EGFR-NON AF YEMENI >60 Normal >=60 [facility] Comment on above: Performed By: #### C VDTBH #### [facility] [address] [place] [address] Dr. Lucho De León Performed By: #### C BC #### [facility] [address] [place] [address] Dr. Lucho De León Globulin (S) [Mass/Vol] 3.0 g/dL Normal [facility] Comment on above: Performed By: #### C BC #### [facility] [address] [place] [address] Dr. Lucho De León Glucose [Mass/Vol] 261 mg/dL Critically high 74-106 T [facility] Comment on above: Performed By: #### C BC #### [facility] [address] [place] [address] Dr. Lucho De León Potassium [Moles/Vol] 4.6 mmol/L Normal 3.5-5.1 [facility] Comment on above: Performed By: #### C BC #### [facility] [address] [place] [address] Dr. Lucho De León Protein [Mass/Vol] 6.0 g/dL Critically low 6.4-8.2 Th [facility] Comment on above: Performed By: #### C BC #### [facility] [address] [place] [address] Dr. Lucho De León Sodium [Moles/Vol] 135 mmol/L Critically low 136-145 Th [facility] Comment on above: Performed By: #### C BC #### [facility] [address] [place] [address] Dr. Lucho De León Urea nitrogen [Mass/Vol] 56.0 mg/dL Critically high 7.0-18.0 [facility] Comment on above: Performed By: #### C BC #### [facility] [address] [place] [address] Dr. Lucho De León Urea nitrogen/Creatinine [Mass ratio] 69.1 mg/mg Normal [facility] Comment on above: Performed By: #### C BC #### [facility] [address] [place] [address] Dr. Lucho De León PROTIMEon 03-26-2022 INR Coag (PPP) [Relative time] 0.99 {INR} Normal [facility] Comment on above: Performed By: #### M ALBR #### [facility] [address] [place] [address] Dr. Lucho De León INR GUIDELINES SEE BELOW Normal [facility] Comment on above: Result Comment: HANS RED INR: 2.0 - 3.0 CONDITIONS NOT LISTED BELOW 2.5 - 3.5 FOR PROSTHETIC HEART VALVE REPLACEMENT 2.5 - 3.5 RECURRENT THROMBOSIS Performed By: #### M ALBR #### [facility] [address] [address] [address] Lucho De León PT Coag (PPP) [Time] 10.7 s Normal 9.0-11.6 [facility] Comment on above: Performed By: #### M ALBR #### [facility] [address] [address] [address] Lucho De León PTTon 03-26-2022 aPTT Coag (Bld) [Time] 20.8 s Critically low 22.3-36.2 [facility] Comment on above: Performed By: #### M ALBR #### [facility] [address] [address] [address] Lucho De León XR ABD FLAT [...] ROSARIO BLANCO Date: 2022-03-26 05:15 Normal [facility] Coding Summaryon 11-08-2021 Coding Summary HTMLBase 64 YslwsrkeNJq3iRg+PGhl YWQ+OX1XITPeO08krJMq yD7NX3hGEN2IBVFPZQUA TE3QPS7nrLQ2DOixF7Bv biAv WfboqLXcDG43TAq6IWL4 eFtzLNxrhP4ijZQaC9p7 VdOcRF10oR43YKxtHFFv IwX1EsTjbchshWNf W6bnQzGqsWGyRhz+PHRh YmxlIHdpZHRoPScxMDAl LeVejMtxWM9pPy1qCRPv LWNvbGxhcHNlOiBj f3zyGRSiXSmmCW6bcSyc K7OaiJN0DDOls1z6Cw04 dHI+ARUkGWD9fOfoBZri h176RaKsc6hvBQJ5 sRAaXTlyYCG3Y78au0W6 PPMzQUQpVTY2jBP8wW2l dAdxcqfaF8SnhTHjJjS1 LKA0mONytF8mwSzy kpgmxF9gEgl+M54BWK2L BPKYZE9SIgh3U1UuTdgb dHI+ZV90WQBgYM98eBWo aKAip8zxwDs7VxPn MYSbJXK2mBtuBRnxf0Mo DAObY56whMIwh9B5MJGz dMdyiELlQiWaiEC2kE5f OQzuwwpzh1amdelw Hoces7fwri63uB46F86j POjpPXPjTFY0ZKPqRZRr fKbqcw5gmF8dRl0+IDxj i1jtp5jokPn0MhQv NYQzdhFbaLmzMCK4o6Ts Fi57B6TcoPhsu7ZyPrp9 cx98nIHpv3G7dZY1INef OLImfS6aJApxFtK4 HZBiLaBtlL78qBLxMZin Ob0gqEajtMtcVR5xRYRt wwyyKECrdP6eQGDfzVIp gSmsVA7xTSZgckyu h533GaTuKJK2PFNzsPDg U8NjzK7fXpVoBLBcERVl L7JbaBAoGVczM003YZdk CoR4ZUUuxoKqZ4Gf SQCpbTbxVpX5n4H2Bn5W j9HqwwtmVRK2SOvcFMMy NrW1XaQqKcH7T7WxZgw9 MIYswEywPU1lF0Om SSYmaadziwlhaAQ8ANVa NBOmiI19qGAtDZplWc1y s6A8a638AHQcGERrzP10 Ob9avRcmABBghIJF vB8eyznsi3wvdyojHnGf NBZgSTb6RWo0JFCaoYwd SgAsHKG5RjV9MIJ5nMZl qZ5qwXzlohbrjC3c Oyc+U33idO6iDGN6GQM4 bdouMBLmdtSeLK83RT48 C6WjSqvofJHlsLX+PGRp rbZifGvjIN6pScRn o9tmd9VcYXhrM3FeIKFh PCxkEla8RYMbGRA0sXW8 bC6lWWEiZQonu7F0wJA6 F6HwoaIzqm6ua0rv WJEoZAasI58tkEVii0I2 BSJtlHJ6ECZquLkhZzBh lW32Xcr+ZZBvkBubs2Qt Kxeud2hfs5wfyPo4 IjMwJSIgdmFsaWduPSJ0 t5CcPk60Z00wDHhkKLJv XJZxNFCuWBWjtInlzp6n bO9tCy8+PGNvbCB3 vWC9tF9wINEvJrJ9ITbk C437RjJjmBNoFygkw8hb s7kdiPj4TrKwOYHtxgUp jVopIFH7e4DsWq87 X97kPBfdKGVsSZWeEYSs PVQuuXcrqe4qiR5yCa2+ SW5dr9cark26rD75kFI+ WONqZVZ9rAbhJWqq EVDclS1bDRmdBwE5WCTd BxZxeZ36hCJvAPwcNt8v hLgbxZusRC0iXSPbnivo b278CmAxs6nuSBGv jSHrWFqzFYF6L78xo5N9 RABiDVNbSRO7sZM5uF5h bGlnbjogbGVmdDsgdmVy rXfsZVwaFFmnW987 IHRvcDsnPlBhdGllbnQg MiJpWXl1G2UoIss4ALOo yXjgVZ1hkDKmEGshTf2e tNipkTjwFH0yVUEq ymxtv142RzWux2vwSGTa fHAgITsqSYA0Y47mj6C4 GOIsQSDkITD0qME5jM6l bGlnbjogbGVmdDsg fkIehIklEFfsIOifR121 IHRvcDsnPkJpcnRoIERh yPC3PV99II38bAVxk6I3 wNJ9R1VtOJBmurqy sjojsYJ8SKOxSBFonD19 Ac3znOnzLy5xJHMgBZR2 QBLzlIZrC5FnmA3iQkLt GFWfPHTiC7LpzWZs UFjrF255RUodAlJ2TCIi ldSuW9TnURGqzJanWjK5 y8L5Mo3JM4T8HD97IB57 xZBkn3K3bEP8A6Qc KFGaglgrervtlJF9QILv MMYqxI18Ks8hiCwwWr6j KJRpAMB6ATNleLWiV1Vl mG4nCyZqFKRoCYEq Z9ClbYSgWOzfG471IDtq BtS6TFPyagLhD0VrABFj nMmjVwE3x4D0Jh2LAYo5 GY52WS46wLCre6L3 oAT8G4DjNLNzlxznihil vEY7FMYaRMKhgP00Uh9f sAeoEp7pLNRuCSY7YVJt hYElH2WymO0tAoEj MSQbUQUkS2GrpPPvYNdx Z167LPjbLsR4PFEsftSd W4YjEEKosBkxNtP7o2F7 Mw9BYZEtKJ69NJS4 gRW4NA09CZ94T3ZxWzfx dGFibGU+PHRhYmxlIHdp ZHRoPScxMDAlJyBzdHls JF6mBe5sXJJrTFMh eTaheTPiOpDnl5tbVNQw YHhiMC8kyRreO8SyqRF0 SPIhz0b9Xq02P90nU4Hq dXA+JKJmlJE4uAZ1 dP8tQiOuUkQ9XUqoM680 KmMeuHRoKuckn6zdq6ze uEq2WcW5ARBsdnQgpNiy SWX6p8YbAs45A39k IHdpZHRoPSIxNSUiIHZh eCtzkh2ddZ0qKy7+PGNv qDP2aKR7xH0vRyNxZlH1 VXceS433AxGcpZYu Zisrh8ovo6ifjOd1InCd LTOsvgFzkQzaPUT1d4Qp Fh52O9LshTqig8DkXle0 ae43dKGuj2W1sKV9 N4GaYXSyqgkkbQWysPvb GB8sFUEilgwnRTUqnA4c JRPjO6q6EkMhJgV2SZtu E0FbslV4GDGnfJVj SHchCUJ6W72af3G7BEYz UGXiOCJ2uTQ8kD3rkZcd bjogbGVmdDsgdmVydGlj OPfbXSyyX989BALn vCjgTBMzdR9xYEXpeCKm kTbgOU0bDZBweaunSvUB TklPTiwgVEVERFkgSjwv dGQ+TTSvLQI2nCnd SSghDHMtmK0rSROsW3x7 YeJjRjX8BKveL6UdZOMi lfxvSi80fB9mTwVaXtT0 REwtT4FfjkO5WUEu sDQkYFmyTBF3E81io9V1 XGElSBGtZCS9fNC9fW5m bGlnbjogbGVmdDsgdmVy kUjvYMuvHCpeZ893 LHVjcLaeLfP9HaQsFqA3 ZRF8W3QkQno0JZMzfMqh LU4zzJSjPOghEn5afOyq tTppXN2wDUArxzjb OKFfoB8tOXEuxKZsdRdf MV0xIJLwelxfk445YkOh XLS3PUExoGFsB2CahN0s MmOkTZGiLIFpR6Nf oJHwIMdrP574XRdpSuN6 JYPgqiIvQ6EbRNNpnCdv RtI6s0E5Ak22MOAACGUa czwvdGQ+PHRkIHN0 hOycVHgfQHBryB6dREVj D8w6DzWbVrZ3FVazX3Vc KQLtuomdXl63xB2lMfGc RbN3WKyrT4IlgtC4 KUGoaMCjXTofPRT3T18u r0N3VEQmTZGwJOM8pPU6 aC6vpXnmlqqbpHOkpCbc dmVydGljYWwtYWxp O542URLktVekWg7JOTO8 W9FhDyl4GBEqxUdoLY2f rLQkXZtjYv7dkAqslGzu NW5tEMKomcpyOGZj xE0xHSFnwEQtmGflNH0n RKGyovlvf070GsNfGDO7 XCHbdJCjD1QgdM7rXwBa OTTaXOOmV0TqnFEs HFyjD935GUlpMtL4NCBq wyKzM0IyVUGbpQxlRhB4 s7F4Wu4TRVsnhXF+PC90 lj57U6QcTurtXvc8 XKIbZYH9eVC6hI3pBHTj OXhhu6Y3mJY7O8AbnhBi ic8tw7gwSZFhYSlhB60a zAHan9O6FIZqoRQ7 FKNqpKcwKdNeaO45Aar+ QQSleWxyq2NcKxtvf5ze d3goyVy0FjNfOCHlbiTt sGhcFIV0v1JrAj36 S33dGXsiLYEbJFJsAEEd IKHspFjdbm7kfR6nSw1+ YGCtvJM2mAS7bP5kWpBp SwP1DKioF013XuNc xTQoXfsuc2org1dxiTp6 IjIwJSIgdmFsaWduPSJ0 b9AgXs60Y0PreKihf1Ov Knc4xb09aJBhf2K9 sXW6H8NuGGRiydykbWCt fPqaNC0nJUAzyxsjCKIu sR0eDTWnI3d7HkMgCxK5 BGgtH3NjmpM7UHLm iLEnFILudBMNtL0xrldd k5rpkdkuUiSvUHBvCBj3 THr1WQAunVvqEqXxYPL5 SmD6IEP4wYJijU1p xOtocppxjI6nLhx+UGh5 z7nlpXRpSO9qaQJ4OX90 XK52bSDex1C1uBE1M9Mm ZGRpbmctcmlnaHQ6 AQSqFGRqiE18Sb5exYsc Sm6cMETqLBM1WNDntOOe C9SuoG5xTvRtVWCeCNKs Y5KknEDnLZmgQ947 SRycXnO2UNXtlxNvU3Kj NRYamGboOjF3u6C1Dg4D KT86PI26WT32xDThf2G5 hRQ4S6ObKSEkksgf qfptsBC3ZCZyKYAwcY70 Rw9eyDhgUs6rHQXtZEK8 DZWxlQNbV3FsuI0rMcAs BYFgUKHeF9XcjVOz DNifZ426YUchNvN7WPYk pmQkW9XyIBCbmJnzReA0 d1X3Of4YQs81ZX16LT34 nSDhb5R3tAH4L3Vl FBPybjeounkbhQD8TFDn UYPryR11Jh3veEztSb5e JMYkBLF4DVNfxQWeQ3Vq aI6qMnWyWEIqXLKw P0LojIDcGCxgU705UDme GrZ6ZJVvdoCxI7SvJLBb oTxuNwE5n3F9Wf6EBChe nsj4J3JuSgcrxUD+ KZ12CRJgEA67tGVcnVKi p2mzkJw6EmHkFDUkHKL8 gUgvDJqco7TdWSFlO28e eMPtc6U4XJEgaUet cHN (more content not included)... [facility] Provider Orderson 11-04-2021 Provider Orders [id number] [facility] Vital Signs Date Time Vital Sign Value Performing Clinician Facility 04-08-2025 13:10-0400 Body mass index (BMI) [Ratio] 29.13 kg/m2 Tonya Hardik SPECIAL DELIVERY MESSENGER Work Phone: [facility] 04-08-2025 13:10-0400 Body temperature 97.81 [degF] Tonya Hardik SPECIAL DELIVERY MESSENGER Work Phone: [facility] 04-08-2025 13:10-0400 Body weight 84.37 kg Tonya Hardik SPECIAL DELIVERY MESSENGER Work Phone: [facility] 04-08-2025 13:10-0400 Diastolic blood pressure 72 mm[Hg] Tonya Dye SPECIAL DELIVERY MESSENGER Work Phone: [facility] 04-08-2025 13:10-0400 Heart rate 74 /min Tonya Hardik SPECIAL DELIVERY MESSENGER Work Phone: [facility] 04-08-2025 13:10-0400 Respiratory rate 18 /min Tonya Hardik SPECIAL DELIVERY MESSENGER Work Phone: [facility] 04-08-2025 13:10-0400 SaO2% (BldA) [Mass fraction] 95 % Tonya Hardik SPECIAL DELIVERY MESSENGER Work Phone: [facility] 04-08-2025 13:10-0400 Systolic blood pressure 118 mm[Hg] Tonya Hardik SPECIAL DELIVERY MESSENGER Work Phone: [facility] 03-27-2025 14:04-0400 Body mass index (BMI) [Ratio] 29.29 kg/m2 Tonya Hardik SPECIAL DELIVERY MESSENGER Work Phone: [facility] 03-27-2025 14:04-0400 Body temperature 98.49 [degF] Tonya Dye SPECIAL DELIVERY MESSENGER Work Phone: [facility] 03-27-2025 14:04-0400 Body weight 84.82 kg Tonya Dye SPECIAL DELIVERY MESSENGER Work Phone: [facility] 03-27-2025 14:04-0400 Diastolic blood pressure 74 mm[Hg] Tonya Pereraz SPECIAL DELIVERY MESSENGER Work Phone: [facility] 03-27-2025 14:04-0400 Heart rate 75 /min Tonya Pereraz SPECIAL DELIVERY MESSENGER Work Phone: [facility] 03-27-2025 14:04-0400 Respiratory rate 18 /min Tonya Dye SPECIAL DELIVERY MESSENGER Work Phone: [facility] 03-27-2025 14:04-0400 SaO2% (BldA) [Mass fraction] 93 % Tonya Pereraz SPECIAL DELIVERY MESSENGER Work Phone: [facility] 03-27-2025 14:04-0400 Systolic blood pressure 124 mm[Hg] Tonya Pereraz SPECIAL DELIVERY MESSENGER Work Phone: [facility] 02-20-2025 14:43-0400 Body height 170.2 cm Jessica Méndez APRN-FIRE EATER Work Phone: [facility] 02-20-2025 14:43-0400 Body mass index (BMI) [Ratio] 28.98 kg/m2 Jessica Méndez APRN-FIRE EATER Work Phone: [facility] 02-20-2025 14:43-0400 Body weight 83.92 kg Jessica Méndez APRN-FIRE EATER Work Phone: [facility] 02-20-2025 14:43-0400 Diastolic blood pressure 75 mm[Hg] Jessica Méndez APRN-FIRE EATER Work Phone: [facility] 02-20-2025 14:43-0400 Heart rate 81 /min Jessica Méndez APRN-FIRE EATER Work Phone: [facility] 02-20-2025 14:43-0400 Systolic blood pressure 159 mm[Hg] Jessica Méndez APRN-FIRE EATER Work Phone: [facility] 01-13-2025 08:56-0400 Body height 170.2 cm Vanessa Mici PA-C Work Phone: [employer] 01-13-2025 08:56-0400 Body mass index (BMI) [Ratio] 29.85 kg/m2 Vanessa Mici PA-C Work Phone: [facility] 01-13-2025 08:56-0400 Body weight 86.46 kg Vanessa Mici PA-C Work Phone: [facility] 01-13-2025 08:56-0400 Diastolic blood pressure 68 mm[Hg] Vanessa Mici PA-C Work Phone: [facility] 01-13-2025 08:56-0400 Heart rate 94 /min Vanessa Mici PA-C Work Phone: [facility] 01-13-2025 08:56-0400 SaO2% (BldA) [Mass fraction] 95 % Vanessa Mici PA-C Work Phone: [facility] 01-13-2025 08:56-0400 Systolic blood pressure 138 mm[Hg] Vanessa Mici PA-C Work Phone: [facility] [employer] 11-20-2024 13:59-0500 Body mass index (BMI) [Ratio] 30.13 kg/m2 Tonya Hardik SPECIAL DELIVERY MESSENGER Work Phone: [facility] 11-20-2024 13:59-0500 Body temperature 98.1 [degF] Tonya Hardik SPECIAL DELIVERY MESSENGER Work Phone: [facility] 11-20-2024 13:59-0500 Body weight 87.27 kg Tonya Hardik SPECIAL DELIVERY MESSENGER Work Phone: [facility] 11-20-2024 13:59-0500 Diastolic blood pressure 78 mm[Hg] Tonya Hardik SPECIAL DELIVERY MESSENGER Work Phone: [facility] 11-20-2024 13:59-0500 Heart rate 78 /min Tonya Hardik SPECIAL DELIVERY MESSENGER Work Phone: [facility] 11-20-2024 13:59-0500 Respiratory rate 18 /min Tonya Aichholz SPECIAL DELIVERY MESSENGER Work Phone: [facility] 11-20-2024 13:59-0500 SaO2% (BldA) [Mass fraction] 96 % Tonya Aichholz SPECIAL DELIVERY MESSENGER Work Phone: [facility] 11-20-2024 13:59-0500 Systolic blood pressure 140 mm[Hg] Tonya Aichholz SPECIAL DELIVERY MESSENGER Work Phone: [facility] 08-20-2024 14:27-0500 Body height 170.2 cm Tonya Aichholz SPECIAL DELIVERY MESSENGER Work Phone: [facility] 08-20-2024 14:27-0500 Body mass index (BMI) [Ratio] 29.63 kg/m2 Tonya Aichholz SPECIAL DELIVERY MESSENGER Work Phone: [facility] 08-20-2024 14:27-0500 Body temperature 98.71 [degF] Tonya Aichholz SPECIAL DELIVERY MESSENGER Work Phone: [facility] 08-20-2024 14:27-0500 Body weight 85.82 kg Tonya Aichholz SPECIAL DELIVERY MESSENGER Work Phone: [facility] 08-20-2024 14:27-0500 Diastolic blood pressure 70 mm[Hg] Tonya Aichholz SPECIAL DELIVERY MESSENGER Work Phone: [facility] 08-20-2024 14:27-0500 Heart rate 95 /min Tonya Aichholz SPECIAL DELIVERY MESSENGER Work Phone: [facility] 08-20-2024 14:27-0500 Respiratory rate 18 /min Tonya Aichholz SPECIAL DELIVERY MESSENGER Work Phone: [facility] 08-20-2024 14:27-0500 SaO2% (BldA) [Mass fraction] 98 % Tonya Aichholz SPECIAL DELIVERY MESSENGER Work Phone: [facility] 08-20-2024 14:27-0500 Systolic blood pressure 116 mm[Hg] Tonya Aichholz SPECIAL DELIVERY MESSENGER Work Phone: [facility] 07-22-2024 13:52-0400 Body height 170.2 cm Tonya Dye SPECIAL DELIVERY MESSENGER Work Phone: [facility] 07-22-2024 13:52-0400 Body mass index (BMI) [Ratio] 28.72 kg/m2 Tonya Pereraz SPECIAL DELIVERY MESSENGER Work Phone: [facility] 07-22-2024 13:52-0400 Body temperature 98.49 [degF] Tonya Pereraz SPECIAL DELIVERY MESSENGER Work Phone: [facility] 07-22-2024 13:52-0400 Body weight 83.19 kg Tonya Pereraz SPECIAL DELIVERY MESSENGER Work Phone: [facility] 07-22-2024 13:52-0400 Diastolic blood pressure 60 mm[Hg] Tonya Aminholz SPECIAL DELIVERY MESSENGER Work Phone: [facility] 07-22-2024 13:52-0400 Heart rate 96 /min Tonya Pereraz SPECIAL DELIVERY MESSENGER Work Phone: [facility] 07-22-2024 13:52-0400 Respiratory rate 18 /min Tonya Pereraz SPECIAL DELIVERY MESSENGER Work Phone: [facility] 07-22-2024 13:52-0400 SaO2% (BldA) [Mass fraction] 96 % Tonya Pereraz SPECIAL DELIVERY MESSENGER Work Phone: [facility] 07-22-2024 13:52-0400 Systolic blood pressure 112 mm[Hg] Tonya Pereraz SPECIAL DELIVERY MESSENGER Work Phone: [facility] 06-04-2024 13:39-0400 Body height 170.2 cm Tonya Aminholz SPECIAL DELIVERY MESSENGER Work Phone: [facility] 06-04-2024 13:39-0400 Body mass index (BMI) [Ratio] 28.63 kg/m2 Tonya Aminholz SPECIAL DELIVERY MESSENGER Work Phone: [facility] 06-04-2024 13:39-0400 Body temperature 98.1 [degF] Tonya Dye SPECIAL DELIVERY MESSENGER Work Phone: [facility] 06-04-2024 13:39-0400 Body weight 82.92 kg Tonya Dye SPECIAL DELIVERY MESSENGER Work Phone: [facility] 06-04-2024 13:39-0400 Diastolic blood pressure 62 mm[Hg] Tonya Dye SPECIAL DELIVERY MESSENGER Work Phone: [facility] 06-04-2024 13:39-0400 Heart rate 75 /min Tonya Dye SPECIAL DELIVERY MESSENGER Work Phone: [facility] 06-04-2024 13:39-0400 Respiratory rate 18 /min Tonya Dye SPECIAL DELIVERY MESSENGER Work Phone: [facility] 06-04-2024 13:39-0400 SaO2% (BldA) [Mass fraction] 97 % Tonya Dye SPECIAL DELIVERY MESSENGER Work Phone: [facility] 06-04-2024 13:39-0400 Systolic blood pressure 130 mm[Hg] Tonya Dye SPECIAL DELIVERY MESSENGER Work Phone: [facility] 05-10-2024 11:57-0400 Body height 170.2 cm Ava Law MD Work Phone: [facility] 05-10-2024 11:57-0400 Body mass index (BMI) [Ratio] 28.51 kg/m2 Ava Law MD Work Phone: [facility] 05-10-2024 11:57-0400 Body weight 82.56 kg Ava Law MD Work Phone: [facility] 05-10-2024 11:57-0400 Diastolic blood pressure 70 mm[Hg] Ava Law MD Work Phone: [facility] 05-10-2024 11:57-0400 Heart rate 80 /min Ava Law MD Work Phone: [facility] 05-10-2024 11:57-0400 SaO2% (BldA) [Mass fraction] 96 % Ava Law MD Work Phone: [facility] [employer] [facility] 05-10-2024 11:57-0400 Systolic blood pressure 130 mm[Hg] Ava Law MD Work Phone: [facility] 03-29-2024 13:55-0400 Body height 170.2 cm Leah Salgado MD Work Phone: [facility] 03-29-2024 13:55-0400 Body mass index (BMI) [Ratio] 27.72 kg/m2 Leah Salgado MD Work Phone: [facility] [employer] [facility] 03-29-2024 13:55-0400 Body weight 80.29 kg Leah Salgado MD Work Phone: [facility] [employer] [facility] 03-29-2024 13:55-0400 Diastolic blood pressure 62 mm[Hg] Leah Salgado MD Work Phone: [facility] [employer] [facility] 03-29-2024 13:55-0400 Heart rate 93 /min Leah Salgado MD Work Phone: [facility] 03-29-2024 13:55-0400 SaO2% (BldA) [Mass fraction] 96 % Leah Salgado MD Work Phone: [facility] [employer] [facility] 03-29-2024 13:55-0400 Systolic blood pressure 136 mm[Hg] Leah Salgado MD Work Phone: [facility] 02-08-2024 10:02-0400 Body height 170.2 cm Yaneli Mauricio MD Work Phone: [facility] [employer] [facility] 02-08-2024 10:02-0400 Body mass index (BMI) [Ratio] 28.66 kg/m2 Yaneli Mauricio MD Work Phone: [facility] [employer] [facility] 02-08-2024 10:02-0400 Body weight 83.01 kg Yaneli Mauricio MD Work Phone: [facility] [employer] [facility] 02-08-2024 10:02-0400 Diastolic blood pressure 80 mm[Hg] Yaneli Mauricio MD Work Phone: [facility] 02-08-2024 10:02-0400 Heart rate 76 /min Yaneli Mauricio MD Work Phone: [facility] 02-08-2024 10:02-0400 Systolic blood pressure 130 mm[Hg] Yaneli Mauricio MD Work Phone: [facility] 11-29-2023 15:28-0500 Body height 170.2 cm Tonyavasile Gundersonrogelio SPECIAL DELIVERY MESSENGER Work Phone: [facility] 11-29-2023 15:28-0500 Body mass index (BMI) [Ratio] 28.54 kg/m2 Tonya Eloisaholz SPECIAL DELIVERY MESSENGER Work Phone: [facility] 11-29-2023 15:28-0500 Body temperature 97.11 [degF] Tonya Eloisasyedaz SPECIAL DELIVERY MESSENGER Work Phone: [facility] 11-29-2023 15:28-0500 Body weight 82.64 kg Tonya Eloisaholz SPECIAL DELIVERY MESSENGER Work Phone: [facility] 11-29-2023 15:28-0500 Diastolic blood pressure 80 mm[Hg] Tonya Eloisaholz SPECIAL DELIVERY MESSENGER Work Phone: [facility] 11-29-2023 15:28-0500 Heart rate 99 /min Tonya Eloisaholz SPECIAL DELIVERY MESSENGER Work Phone: [facility] 11-29-2023 15:28-0500 Respiratory rate 20 /min Tonya Eloisaholz SPECIAL DELIVERY MESSENGER Work Phone: [facility] 11-29-2023 15:28-0500 SaO2% (BldA) [Mass fraction] 97 % Tonya Eloisaholz SPECIAL DELIVERY MESSENGER Work Phone: [facility] 11-29-2023 15:28-0500 Systolic blood pressure 138 mm[Hg] Tonya Neptaliyudelkaz SPECIAL DELIVERY MESSENGER Work Phone: [facility] 08-30-2022 14:47-0500 Blood Pressure Location Bernadine SARAVIA [facility] [place] 08-30-2022 14:47-0500 Diastolic blood pressure 82 mm[Hg] Bernadine SARAVIA [facility] [place] 08-30-2022 14:47-0500 Heart rate 76 /min Bernadine GUAJARDOL [facility] [place] 08-30-2022 14:47-0500 Respiratory rate 16 /min Bernadine SARAVIA [facility] [place] 08-30-2022 14:47-0500 Systolic blood pressure 138 mm[Hg] Bernadine GUAJARDOL [facility] [place] 08-19-2021 14:30-0400 Body height 170.18 cm Ava Olexa Other [facility] Other 08-19-2021 14:30-0400 Body mass index (BMI) [Ratio] 31.04 kg/m2 Ava Olexa Other [facility] Other 08-19-2021 14:30-0400 Body weight 89.9 kg Ava Olexa Other [facility] Other 07-29-2021 14:30-0400 Body height 170.18 cm Ava Olexa Other [facility] Other 07-29-2021 14:30-0400 Body mass index (BMI) [Ratio] 31.32 kg/m2 Ava Olexa Other [facility] Other 07-29-2021 14:30-0400 Body weight 90.72 kg Ava Olexa Other [facility] Other Encounters Encounter Date Encounter Type Care Provider Facility Start: 04-08-2025 End: 04-08-2025 Cale flowsshiloh Dye SPECIAL DELIVERY MESSENGER Work Phone: [facility] Start: 04-08-2025 End: 04-08-2025 Bamboo flowsheet Tonya Hardik SPECIAL DELIVERY MESSENGER Work Phone: [facility] Start: 04-08-2025 End: 04-08-2025 Clinisync Result Encounter Tonya Hardik SPECIAL DELIVERY MESSENGER Work Phone: [facility] Unsolicited Start: 04-08-2025 End: 04-08-2025 Office outpatient visit 25 minutes Tonya Dye SPECIAL DELIVERY MESSENGER Work Phone: [facility] Comment on above: Abdominal pain, gene ralized (Primary Dx); Diverticulitis Start: 04-08-2025 End: 04-08-2025 Orders Only Tonya Dye SPECIAL DELIVERY MESSENGER Work Phone: [facility] Comment on above: RUQ pain (Primary Dx ) Start: 04-02-2025 End: 04-02-2025 Clinisync Result Encounter Tonya Hardik SPECIAL DELIVERY MESSENGER Work Phone: [facility] External Department Unsolicited Start: 04-02-2025 End: 04-02-2025 Clinisync Result Encounter Tonya Hardik SPECIAL DELIVERY MESSENGER Work Phone: [facility] Department Unsolicited Start: 03-27-2025 End: 03-27-2025 Bamboo flowsheet Tonya Hardik SPECIAL DELIVERY MESSENGER Work Phone: [facility] Start: 03-27-2025 End: 03-27-2025 Bamboo flowsheet Tonya Hardik SPECIAL DELIVERY MESSENGER Work Phone: [facility] Start: 03-27-2025 End: 03-27-2025 Patient encounter procedure Tonya Dye SPECIAL DELIVERY MESSENGER Work Phone: [facility] Comment on above: Encounter for subseq uent annual wellness visit (AWV) in Medicare patient [...] diabetes mellitus with hyperglycemia (HCC); Primary insomnia Start: 03-27-2025 End: 03-27-2025 ambulatory TONYA AICHHOLZ Not Available Start: 03-17-2025 End: 03-17-2025 Telephone encounter Marie Zambrano [facility] Start: 03-03-2025 End: 03-03-2025 Refill Tonya Aichholz SPECIAL DELIVERY MESSENGER Work Phone: [facility] Comment on above: Primary hypertension ([facility]); Allergic rhinitis, unspecified seasonality, unspecified trigger; Diabetic polyneuropathy associated with type 2 diabetes mellitus ([facility]); Uncontrolled type 2 diabetes mellitus with hyperglycemia ([facility]); PAD (peripheral artery disease) ([facility]); Acute gastritis without hemorrhage, unspecified gastritis type Uncontrolled type 2 diabetes mellitus with hyperglycemia ([facility]) Start: 02-26-2025 End: 02-26-2025 Telephone encounter Erika Palacios LPN [facility] Start: 02-20-2025 End: 02-20-2025 Office outpatient visit 15 minutes Jessica Méndez APRN-FIRE EATER Work Phone: [facility] [place] Comment on above: PAD (peripheral sidney ry disease) (Primary Dx); Claudication; History of arterial bypass of lower extremity Start: 02-20-2025 End: 02-20-2025 ambulatory JESSICA MÉNDEZ [facility] Start: 02-03-2025 End: 02-03-2025 Clinisync Result Encounter Generic External Data Provider [facility] Unsolicited Start: 02-03-2025 End: 02-03-2025 Clinisync Result Encounter Generic External Data Provider [facility] External [facility] Unsolicited Start: 01-29-2025 End: 01-29-2025 Refill Tonya Aichholz SPECIAL DELIVERY MESSENGER Work Phone: [facility] Comment on above: Acute non-recurrent sinusitis of other sinus (Primary Dx) Start: 01-16-2025 End: 01-16-2025 Telephone encounter Yaneli Mauricio MD Work Phone: [facility] Start: 01-13-2025 End: 01-13-2025 Office outpatient visit 25 minutes [facility] PA-C Work Phone: [facility] Comment on above: Moderate aortic valv e stenosis (Primary Dx); Mixed hyperlipidemia Start: 01-13-2025 End: 01-13-2025 ambulatory [facility] Start: 01-10-2025 End: 01-10-2025 Telephone encounter Tali Naidu [facility] Start: 11-20-2024 End: 11-20-2024 Bamboo flowsheet Tonya Dye SPECIAL DELIVERY MESSENGER Work Phone: [facility] Start: 11-20-2024 End: 11-20-2024 Bamboo flowsheet Tonya Dye SPECIAL DELIVERY MESSENGER Work Phone: [facility] Start: 11-20-2024 End: 11-20-2024 Office outpatient visit 25 minutes Tonya Dye NP Work Phone: [facility] Comment on above: Uncontrolled type 2 diabetes mellitus with hyperglycemia (CMS/HCC) (Primary Dx); Type 2 diabetes mellitus with diabetic peripheral angiopathy without gangrene (CMS/HCC); Type 2 diabetes mellitus with unspecified diabetic retinopathy without macular edema (CMS/HCC); Heart failure, unspecified (CMS/HCC); Type 2 diabetes mellitus with hyperglycemia (CMS/HCC); Type 2 diabetes mellitus with diabetic polyneuropathy (CMS/HCC); Primary hypertension (CMS/HCC); PAD (peripheral artery disease) (CMS/HCC); Type 2 diabetes mellitus with diabetic peripheral angiopathy without gangrene, without long-term current use of insulin (CMS/HCC); Overweight (BMI 25.0-29.9); Type 2 diabetes mellitus with hyperglycemia, without long-term current use of insulin (CMS/HCC); Mixed hyperlipidemia (CMS/HCC); Tobacco user; Allergic rhinitis, unspecified seasonality, unspecified trigger; Diabetic polyneuropathy associated with type 2 diabetes mellitus (CMS/HCC); Acute gastritis without hemorrhage, unspecified gastritis type Start: 11-20-2024 End: 11-20-2024 ambulatory TONYA AICHHOLZ Not Available Start: 08-20-2024 End: 08-20-2024 Office outpatient visit 25 minutes Tonya Neptalihholz SPECIAL DELIVERY MESSENGER Work Phone: [facility] Comment on above: Type 2 diabetes dian itus without complication, without long- term current use of insulin ([facility]) (Primary Dx); Primary hypertension ([facility]); PAD (peripheral artery disease) ([facility]); Overweight (BMI 25.0-29.9); Diabetic polyneuropathy associated with type 2 diabetes mellitus ([facility]); Tobacco user; Hemorrhage due to aspirin therapy; Benign prostatic hyperplasia (BPH) with straining on urination; Diverticulitis; Bilateral carotid bruits Start: 08-20-2024 End: 08-20-2024 Bamboo flowsheet Tonya Aichholz SPECIAL DELIVERY MESSENGER Work Phone: [facility] Start: 08-20-2024 End: 08-20-2024 Bamboo flowsheet Tonya Aichholz SPECIAL DELIVERY MESSENGER Work Phone: [facility] Start: 08-20-2024 End: 08-20-2024 ambulatory TONYA AICHHOLZ Not Available Start: 07-22-2024 End: 07-22-2024 Bamboo flowsheet Tonya Aichholz SPECIAL DELIVERY MESSENGER Work Phone: [facility] Start: 07-22-2024 End: 07-22-2024 Bamboo flowsheet Tonya Aichholz SPECIAL DELIVERY MESSENGER Work Phone: [facility] Start: 07-22-2024 End: 07-22-2024 Office outpatient visit 25 minutes Tonya Dye SPECIAL DELIVERY MESSENGER Work Phone: [facility] Comment on above: Acute gastritis with out hemorrhage, unspecified gastritis type (Primary Dx); Overweight (BMI 25.0-29.9); Primary hypertension ([facility]); Uncontrolled type 2 diabetes mellitus with hyperglycemia ([facility]); PAD (peripheral artery disease) (CMS/HCC); Benign prostatic hyperplasia (BPH) with straining on urination; Diabetic polyneuropathy associated with type 2 diabetes mellitus ([facility]/HCC) Start: 07-22-2024 End: 07-22-2024 ambulatory TONYA AICHHOLZ Not Available Start: 06-24-2024 End: 06-24-2024 Clinisync Result Encounter Tonya Pereramelva SPECIAL DELIVERY MESSENGER Work Phone: [facility] Unsolicited Start: 06-24-2024 End: 06-24-2024 Clinisync Result Encounter Tonya Pereramelva SPECIAL DELIVERY MESSENGER Work Phone: [facility] Unsolicited Start: 06-04-2024 End: 06-04-2024 Bamboo flowsheet Tonya Aminbrett SPECIAL DELIVERY MESSENGER Work Phone: [facility] Start: 06-04-2024 End: 06-04-2024 Bamboo flowsheet Tonya Aminbrett SPECIAL DELIVERY MESSENGER Work Phone: [facility] Start: 06-04-2024 End: 06-04-2024 Office outpatient visit 25 minutes Tonya Aminbrett SPECIAL DELIVERY MESSENGER Work Phone: [facility] Comment on above: Primary hypertension ([facility]/HCC) (Primary Dx); Type 2 diabetes mellitus with diabetic peripheral angiopathy without gangrene, without long-term current use of insulin ([facility]); Uncontrolled type 2 diabetes mellitus with hyperglycemia ([facility]); PAD (peripheral artery disease) ([facility]); Diabetic polyneuropathy associated with type 2 diabetes mellitus ([facility]/HCC); Heart murmur; Overweight (BMI 25.0-29.9); Tobacco user; Psoriasis ([facility]/HCC) Start: 06-04-2024 End: 06-04-2024 ambulatory TONYA AICHHOLZ Not Available Start: 05-10-2024 End: 05-10-2024 Office outpatient visit 15 minutes [facility]va Law MD [facility] Comment on above: Primary hypertension (Primary Dx); Nonrheumatic aortic (valve) stenosis Start: 05-10-2024 End: 05-10-2024 ambulatory AVA M [facility] Start: 05-09-2024 End: 05-09-2024 Telephone encounter Dasha Logan CMA [facility] Start: 04-29-2024 End: 04-29-2024 [facility] Start: 04-15-2024 End: 04-15-2024 Telephone encounter Omid Ricks MD Work Phone: [facility] Start: 03-29-2024 End: 03-29-2024 Office outpatient visit 40 minutes Leah Salgado MD Work Phone: [facility] Comment on above: Primary hypertension (Primary Dx); Nonrheumatic aortic (valve) stenosis; 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 Start: 03-29-2024 End: 03-29-2024 Telephone encounter Wolfgang Monzon RN [facility] Start: 03-29-2024 End: 03-29-2024 [facility] Start: 03-28-2024 End: 03-28-2024 Telephone encounter Dasha Logan CMA [facility] Start: 02-27-2024 Patient encounter procedure Tonya Dye NP Work Phone: [facility] Start: 02-08-2024 End: 02-08-2024 Office outpatient visit 25 minutes Yaneli Mauricio MD Work Phone: [facility] Comment on above: Claudication (CMS-HC C) (Primary Dx); Cigarette smoker motivated to quit Start: 12-27-2023 End: 12-27-2023 ambulatory [facility] Facility:[facility] Start: 12-20-2023 End: 12-20-2023 ambulatory [facility] Facility:[facility] Start: 11-29-2023 End: 11-29-2023 Office outpatient visit 25 minutes Tonya Dye NP Work Phone: [facility] Comment on above: Primary hypertension (CMS/HCC) (Primary Dx); BMI 29.0-29.9,adult; Type 2 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, without long-term current use of insulin, unspecified laterality, unspecified retinopathy severity ([facility]/HCC); Type 2 diabetes mellitus with diabetic neuropathy, without long-term current use of insulin (CMS/[facility]); Sebaceous cyst; 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; Ageusia; Peripheral vascular disease, unspecified (I73.9) Start: 11-29-2023 Bamboo flowsheet Tonya Dye SPECIAL DELIVERY MESSENGER Work Phone: [facility] Start: 11-29-2023 Bamboo flowsheet Tonya Dye SPECIAL DELIVERY MESSENGER Work Phone: [facility] Start: 10-31-2023 Preprocedural examin ation done Tonya Dye SPECIAL DELIVERY MESSENGER Work Phone: [facility] Start: 10-24-2023 Office outpatient vi sit 15 minutes [facility] Start: 10-24-2023 End: 10-24-2023 ambulatory Tonya Dye Work Phone: [facility] Work Phone: Start: 10-24-2023 End: 10-24-2023 Patient encounter procedure Tonya Dye Work Phone: [facility] Start: 01-31-2023 End: 02-01-2023 ambulatory [facility] Facility:[facility] Start: 01-27-2023 End: 01-28-2023 ambulatory [facility] TONYA DYE Facility:[facility] Start: 12-21-2022 End: 12-22-[address] OMID RICKS Facility:[facility] Start: 11-20-2022 Encounter for other preprocedural examination MR KRISHNA VALDES . [facility] Start: 11-18-2022 End: 11-19-2022 ambulatory MR KRISHNA VALDES . Facility:[facility] Start: 11-18-2022 End: 11-19-2022 Encounter for other preprocedural examination MR KRISHNA VALDES . Facility:[facility] Start: 10-25-2022 End: 10-26-2022 ambulatory Bernadine R NILL Facility:[facility] Start: 10-25-2022 End: 10-25-2022 Patient encounter procedure Bernadine R NILL [facility] [place] Start: 10-12-2022 End: 10-13-2022 ambulatory Bernadine R NILL Facility:CD:[id number] Start: 10-07-2022 ambulatory OLI DYE Facil ity:[facility] Start: 09-22-2022 End: 09-23-2022 ambulatory OLI CAMARGO HARDIK Facility:[facility] Start: 08-30-2022 End: 08-31-2022 ambulatory Bernadine R NILL Facility:[facility] Start: 08-30-2022 End: 08-30-2022 Patient encounter procedure Bernadine R CASANDRAL General Surgery [facility] [place] Start: 08-03-2022 ambulatory Bernadine R CASANDRAL Facility :[facility] Start: 06-21-2022 End: 06-22-[address] OMID RICKS Facility:[facility] Start: 06-14-2022 End: 06-15-2022 ambulatory OLI DYE Facility:[facility] Start: 04-27-2022 End: 04-28-[address] BINDU CONRAD Facility:[facility] Start: 04-14-2022 End: 04-15-2022 ambulatory OLI DYE Facility:[facility] Start: 04-06-2022 End: 04-07-2022 ambulatory FIRE EATER TONYA NEPTALITuckerBRETT Facility:[facility] Start: 03-27-2022 End: 03-30-2022 Evaluation and management of inpatient DR IRENE GONZALEZ Facility:[facility] Start: 03-26-2022 End: 03-26-[address] IRENE GONZALEZ Facility:[facility] Start: 12-16-2021 End: 12-16-2021 ambulatory Ava Luis Other [employer] Other Start: 12-16-2021 Telephone encounter Ava Luis [facility] Start: 12-14-2021 End: 12-14-2021 ambulatory Ava Olexa Other [employer] Other Start: 12-14-2021 Office outpatient vi sit 15 minutes Ava Olexa [facility] Start: 10-26-2021 Preprocedural examin ation done Yaneli Mauricio MD Work Phone: [employer] Work Phone: Start: 08-19-2021 End: 08-19-2021 ambulatory Ava Olexa Other [employer] Other Start: 08-19-2021 Office outpatient vi sit 10 minutes Ava Olexa [facility] [place] Start: 08-11-2021 Telephone encounter Krishna pan [facility] Start: 07-29-2021 Office outpatient ne w 30 minutes Ava Olexa [facility] [place] Procedures Date Procedure Procedure Detail Performing Clinician Start: 04-08-2025 ALL CBC WITH AUTO DIFF Tonya Hardik SPECIAL DELIVERY MESSENGER Work Phone: Start: 04-02-2025 ALL CBC WITH AUTO DIFF Tonya Dilmaz SPECIAL DELIVERY MESSENGER Work Phone: Start: 03-27-2025 Hemoglobin glycosylated a1c Tonya Dye SPECIAL DELIVERY MESSENGER Work Phone: Start: 02-03-2025 SEGMENTAL BLOOD PRESSURE Generic External Data Provider Start: 11-20-2024 Hemoglobin glycosylated a1c Tonya Hardik SPECIAL DELIVERY MESSENGER Work Phone: Start: 06-24-2024 ALL BASIC METABOLIC PANEL Tonya Hardik SPECIAL DELIVERY MESSENGER Work Phone: Start: 03-29-2024 Follow-up visit Follow-up LEAH SAGLADO Start: 10-24-2023 Plain X-ray of bilat eral elbows Tonya Dye Work Phone: Start: 01-27-2023 PSA screening [facility] TONYA DYE Comment on above: Performed By: #### B MP #### [facility] [address] [address] [address] Lucho De León Start: 10-12-2022 Excisional biopsy Blair patrikc SARAVIA Start: 03-28-2022 Inspection of Lower Intestinal Tract, Via Natural or Artificial Opening Endoscopic FIRE EATER TONYA AMINSYEDAMelva Start: 03-28-2022 Inspection of Upper Intestinal Tract, Via Natural or Artificial Opening Endoscopic FIRE EATER TONYA NEPTALITuckerSYEDAMelva Start: 03-26-2022 Transfusion of Nonau tologous Red Blood Cells into Peripheral Vein, Percutaneous Approach OLI AMINSYEDAMelva Start: 11-10-2021 Endarterectomy and angioplasty of common femoral artery Bernadine SARAVIA Start: 03-09-2021 Angioplasty of super ficial femoral artery Bernadine SARAVIA Start: 10-16-2016 Colonoscopy Tonya Giordano louis SPECIAL DELIVERY MESSENGER Work Phone: Repair of musculoten dinous cuff of shoulder Bernadine SARAVIA Plan of Treatment Date Care Activity Detail Author Start: 10-16-2026 Screening for malignant neoplasm of colon [facility] Start: 04-02-2026 Urine screening for protein Diabetes: Urine Protein Screening [facility] Start: 04-02-2026 End: 04-02-2026 Patient encounter procedure [facility] [place] Start: 03-27-2026 Medicare Annual Wellness (AWV) Medicare Annual Wellness (AWV) [facility] Start: 03-04-2026 End: 03-04-2026 Patient encounter procedure [facility] Start: 02-20-2026 Adult BMI Screening Adult BMI Screening [facility] Start: 02-20-2026 Tobacco Screening Tobacco Screening [facility] Start: 02-20-2026 End: 02-20-2027 US.doppler Extremity arteries - bilateral for physiologic artery study Vas art doppler lwr bilat mult lev/PVR Vascular Ultrasound Routine Claudication ([facility]) PAD (peripheral artery disease) ([facility] History of arterial bypass of lower extremity Expected: 02/20/2026 (Approximate), Expires: 02/20/2027 [facility] Comment on above: Expected: 02/20/2026 (Approximate), Expi res: 02/20/2027 Start: 02-20-2026 End: 02-20-2027 US.doppler Lower extremity vessel - right for graft Vas art duplex lwr graft scan right Vascular Ultrasound Routine Claudication ([facility]) PAD (peripheral artery disease) ([facility] History of arterial bypass of lower extremity Expected: 02/20/2026 (Approximate), Expires: 02/20/2027 [facility] Work [facility]: Comment on above: Expected: 02/20/2026 (Approximate), Expi res: 02/20/2027 Start: 01-13-2026 Adult BMI Screening Adult BMI Screening [facility] Start: 01-13-2026 Tobacco Screening Tobacco Screening [facility] Start: 11-21-2025 Glaucoma screening Diabetes: Retinopathy Screening [facility] Start: 07-15-2025 End: 07-15-2025 Patient encounter procedure 07/15/2025 1:15 PM EDT Office Visit [facility] [address] [place] [id number] Tamara Rebolledo MD [address] [place] [address] [facility] Start: 06-30-2025 End: 06-30-2025 Patient encounter procedure 06/30/2025 1:00 PM EDT Office Visit [facility] [address] [place] [address] Tonya Dye NP [address] [place] [address] [facility] Start: 06-27-2025 Hemoglobin A1c measurement Diabetes: Hemoglobin A1C [facility] Start: 06-16-2025 Influenza vaccination Influenza Vaccine [facility] Start: 05-10-2025 Adult BMI Screening Adult BMI Screening [facility] Start: 05-10-2025 Tobacco Screening Tobacco Screening [facility] Start: 04-29-2025 Adult BMI Screening Adult BMI Screening [facility] Start: 04-29-2025 Tobacco Screening Tobacco Screening [facility] Start: 04-14-2025 End: 01-13-2026 Echo complete W/O contrast Echo complete W/O contrast Echocardiography Routine Moderate aortic valve stenosis Expected: 04/14/2025 (Approximate), Expires: 01/13/2026 [facility] Work Phone: Comment on above: Expected: 04/14/2025 (Approximate), Expi res: 01/13/2026 Start: 04-14-2025 End: 04-14-2025 Patient encounter procedure 04/14/2025 10:30 AM EDT Appointment [facility] [address] [place] [address] Vanessa Persaud PA-C [address] [place] [address] [facility] Start: 04-08-2025 End: 04-08-2026 Amylase [Enzymatic activity/volume] in Serum or Plasma Amylase Lab Routine Abdominal pain, generalized Expected: 04/08/2025 (Approximate), Expires: 04/08/2026 [facility] Comment on above: Expected: 04/08/2025 (Approximate), Expi res: 04/08/2026 Start: 04-08-2025 End: 04-08-2026 CBC W Auto Differential panel - Blood CBC and differential Lab Routine Abdominal pain, generalized Expected: 04/08/2025 (Approximate), Expires: 04/08/2026 [facility] Work Phone: Comment on above: Expected: 04/08/2025 (Approximate), Expi res: 04/08/2026 Start: 04-08-2025 End: 04-08-2026 Comprehensive metabolic 2000 panel - Serum or Plasma Comprehensive metabolic panel Lab Routine Abdominal pain, generalized Expected: 04/08/2025 (Approximate), Expires: 04/08/2026 [facility] Comment on above: Expected: 04/08/2025 (Approximate), Expi res: 04/08/2026 Start: 04-08-2025 End: 04-08-2026 Erythrocyte sedimentation rate Sedimentation rate, automated Lab Routine Abdominal pain, generalized Expected: 04/08/2025 (Approximate), Expires: 04/08/2026 [facility] Comment on above: Expected: 04/08/2025 (Approximate), Expi res: 04/08/2026 Start: 04-08-2025 End: 04-08-2026 Lipase [Enzymatic activity/volume] in Serum or Plasma Lipase Lab Routine Abdominal pain, generalized Expected: 04/08/2025 (Approximate), Expires: 04/08/2026 [facility] Comment on above: Expected: 04/08/2025 (Approximate), Expi res: 04/08/2026 Start: 04-08-2025 End: 04-08-2026 Urinalysis complete panel - Urine Urinalysis with reflex microscopic (clean catch) Lab Routine Abdominal pain, generalized Expected: 04/08/2025 (Approximate), Expires: 04/08/2026 [facility] Comment on above: Expected: 04/08/2025 (Approximate), Expi res: 04/08/2026 Start: 04-08-2025 End: 04-08-2026 US Gallbladder US gallbladder Imaging Routine RUQ pain Expected: 04/08/2025 (Approximate), Expires: 04/08/2026 [facility] Work Phone: Comment on above: Expected: 04/08/2025 (Approximate), Expi res: 04/08/2026 Start: 04-08-2025 End: 04-08-2025 Patient encounter procedure 04/08/2025 1:00 PM EDT Office Visit [facility] [address] [place] [phone] Tonya Dye NP [address] [place] [id number] Arrived [facility] Comment on above: Arrived Start: 03-29-2025 Adult BMI Screening Adult BMI Screening [facility] Start: 03-29-2025 Tobacco Screening Tobacco Screening [facility] Start: 03-27-2025 End: 03-27-2026 CBC W Auto Differential panel - Blood CBC and differential Lab Routine Type 2 diabetes mellitus with diabetic polyneuropathy, without long-term current use of insulin (HCC) Type 2 diabetes mellitus with diabetic peripheral angiopathy without gangrene, without long-term current use of insulin (HCC) Tobacco user Expected: 03/27/2025 (Approximate), Expires: 03/27/2026 [facility] Work Phone: Comment on above: Expected: 03/27/2025 (Approximate), Expi res: 03/27/2026 Start: 03-27-2025 End: 03-27-2026 Comprehensive metabolic 2000 panel - Serum or Plasma Comprehensive metabolic panel Lab Routine Type 2 diabetes mellitus with diabetic polyneuropathy, without long-term current use of insulin (HCC) Diastolic dysfunction Primary hypertension Type 2 diabetes mellitus with diabetic peripheral angiopathy without gangrene, without long-term current use of insulin (HCC) Type 2 diabetes mellitus with hyperglycemia, without long-term current use of insulin (HCC) Mixed hyperlipidemia Expected: 03/27/2025 (Approximate), Expires: 03/27/2026 [facility] Comment on above: Expected: 03/27/2025 (Approximate), Expi res: 03/27/2026 Start: 03-27-2025 End: 03-27-2026 Lipid 1996 panel - Serum or Plasma Lipid panel Lab Routine Type 2 diabetes mellitus with diabetic peripheral angiopathy without gangrene, without long-term current use of insulin (HCC) Type 2 diabetes mellitus with hyperglycemia, without long-term current use of insulin (HCC) Mixed hyperlipidemia Expected: 03/27/2025 (Approximate), Expires: 03/27/2026 [facility] Comment on above: Expected: 03/27/2025 (Approximate), Expi res: 03/27/2026 Start: 03-27-2025 End: 03-27-2026 Microalbumin/Creatinine panel in random Urine Microalbumin / creatinine, urine ratio Lab Routine Type 2 diabetes mellitus with diabetic polyneuropathy, without long-term current use of insulin (HCC) Primary hypertension Type 2 diabetes mellitus with diabetic peripheral angiopathy without gangrene, without long-term current use of insulin (HCC) Type 2 diabetes mellitus with hyperglycemia, without long-term current use of insulin (HCC) Expected: 03/27/2025 (Approximate), Expires: 03/27/2026 [facility] Comment on above: Expected: 03/27/2025 (Approximate), Expi res: 03/27/2026 Start: 03-27-2025 End: 03-27-2025 Patient encounter procedure [facility] Comment on above: Type 2 diabetes mellitus with diabetic p olyneuropathy, without long-term current use of insulin (HCC) (Primary Dx); Diastolic dysfunction; Primary hypertension ; Type 2 diabetes mellitus with diabetic peripheral angiopathy without gangrene, without long-term current use of insulin (HCC); Type 2 diabetes mellitus with hyperglycemia, without long-term current use of insulin (HCC); Encounter for subsequent annual wellness visit (AWV) in Medicare patient; Mixed hyperlipidemia ; Tobacco user; Screening for prostate cancer Start: 03-27-2025 End: 03-27-2026 Prostate specific Ag [Mass/volume] in Serum or Plasma PSA Lab Routine Screening for prostate cancer Expected: 03/27/2025 (Approximate), Expires: 03/27/2026 [facility] Comment on above: Expected: 03/27/2025 (Approximate), Expi res: 03/27/2026 Start: 03-27-2025 End: 03-27-2026 Urinalysis complete panel - Urine Urinalysis with reflex microscopic (clean catch) Lab Routine Type 2 diabetes mellitus with diabetic polyneuropathy, without long-term current use of insulin (HCC) Primary hypertension Type 2 diabetes mellitus with diabetic peripheral angiopathy without gangrene, without long-term current use of insulin (HCC) Type 2 diabetes mellitus with hyperglycemia, without long-term current use of insulin (HCC) Tobacco user Expected: 03/27/2025 (Approximate), Expires: 03/27/2026 [facility] Comment on above: Expected: 03/27/2025 (Approximate), Expi res: 03/27/2026 Start: 03-05-2025 Urine screening for protein Diabetes: Urine Protein Screening [facility] Start: 02-26-2025 End: 02-26-2025 Patient encounter procedure 02/26/2025 2:20 PM EDT Office Visit [facility] [address] [place] [address] Tonya Dye, SHIVAM [address] [place] [id number] [facility] [facility] Start: 02-26-2025 Medicare Annual Wellness (AWV) Medicare Annual Wellness (AWV) [facility] Start: 02-20-2025 End: 02-20-2025 Patient encounter procedure [facility] Start: 02-17-2025 Hemoglobin A1c measurement Diabetes: Hemoglobin A1C [facility] Start: 02-07-2025 Adult BMI Screening Adult BMI Screening [facility] Start: 02-07-2025 Tobacco Screening Tobacco Screening [facility] Start: 01-13-2025 End: 01-13-2025 Patient encounter procedure 01/13/2025 9:00 AM EDT Office Visit [facility] [address] [id number] Vanessa Persaud PA-C [address] [place] [address] [facility] Start: 01-09-2025 COVID-19 Vaccine ( season) COVID-19 Vaccine ( season) [facility] Start: 11-22-2024 Glaucoma screening Diabetes: Retinopathy Screening [facility] Start: 11-20-2024 End: 11-20-2024 Patient encounter procedure 11/20/2024 2:00 PM EST Office Visit [facility] [address] [place] [address] Tonya Dye NP [address] [place] [phone] Primary hypertension (CMS/HCC) (Primary Dx); Type 2 diabetes mellitus with diabetic peripheral angiopathy without gangrene (CMS/HCC); Type 2 diabetes mellitus with unspecified diabetic retinopathy without macular edema (CMS/HCC); Heart failure, unspecified (CMS/HCC); Type 2 diabetes mellitus with hyperglycemia ([facility]/HCC); Type 2 diabetes mellitus with diabetic polyneuropathy ([facility]/HCC); PAD (peripheral artery disease) ([facility]/HCC); Type 2 diabetes mellitus with diabetic peripheral angiopathy without gangrene, without long-term current use of insulin ([facility]); Overweight (BMI 25.0-29.9); Type 2 diabetes mellitus with hyperglycemia, without long-term current use of insulin ([facility]); Mixed hyperlipidemia ([facility]); Tobacco user [facility] Comment on above: Primary hypertension ([facility]/HCC) (Primary Dx); Type 2 diabetes mellitus with diabetic peripheral angiopathy without gangrene ([facility]/HCC); Type 2 diabetes mellitus with unspecified diabetic retinopathy without macular edema ([facility]); Heart failure, unspecified ([facility]); Type 2 diabetes mellitus with hyperglycemia ([facility]); Type 2 diabetes mellitus with diabetic polyneuropathy ([facility]); PAD (peripheral artery disease) ([facility]); Type 2 diabetes mellitus with diabetic peripheral angiopathy without gangrene, without long-term current use of insulin ([facility]); Overweight (BMI 25.0-29.9); Type 2 diabetes mellitus with hyperglycemia, without long-term current use of insulin ([facility]); Mixed hyperlipidemia ([facility]); Tobacco user Start: 09-23-2024 Hemoglobin A1c measurement Diabetes: Hemoglobin A1C [facility] Start: 09-04-2024 End: 09-04-2024 Patient encounter procedure 09/04/2024 1:00 PM EST Office Visit [facility] [address] [place] [address] Tonya Dye NP [address] [place] [address] [facility] Start: 08-20-2024 End: 08-20-2024 Patient encounter procedure [facility] Comment on above: Primary hypertension ([facility]/HCC) (Primary Dx); PAD (peripheral artery disease) ([facility]); Overweight (BMI 25.0-29.9); Diabetic polyneuropathy associated with type 2 diabetes mellitus ([facility]); Type 2 diabetes mellitus without complication, without long-term current use of insulin ([facility]); Tobacco user Start: 08-20-2024 End: 08-20-2025 US.doppler Carotid arteries - bilateral Vascular US carotid artery duplex bilateral Imaging Routine PAD (peripheral artery disease) ([facility]) Type 2 diabetes mellitus without complication, without long-term current use of insulin ([facility]) Bilateral carotid bruits Expected: 08/20/2024 (Approximate), Expires: 08/20/2025 [facility] Work Phone: Comment on above: Expected: 08/20/2024 (Approximate), Expi res: 08/20/2025 Start: 08-15-2024 Influenza vaccination Influenza Vaccine (#1) [facility] Comment on above: Postponed from 06/16/2024 (Patient Does Not Have Time) Start: 07-22-2024 End: 07-22-2024 Patient encounter procedure 07/22/2024 1:40 PM EDT Office Visit [facility] [address] [place] [address] Tonya Dye NP [address] [place] [phone] Arrived [facility] Comment on above: Arrived Start: 06-16-2024 Influenza vaccination [facility] Start: 06-05-2024 Hemoglobin A1c measurement Diabetes: Hemoglobin A1C [facility] Start: 06-04-2024 End: 06-04-2025 Basic metabolic 1998 panel - Serum or Plasma Basic metabolic panel Lab Routine Primary hypertension ([facility]) Type 2 diabetes mellitus with diabetic peripheral angiopathy without gangrene, without long-term current use of insulin ([facility]) Expected: 06/04/2024 (Approximate), Expires: 06/04/2025 [facility] Comment on above: Expected: 06/04/2024 (Approximate), Expi res: 06/04/2025 Start: 06-04-2024 End: 06-04-2025 Hemoglobin A1c/Hemoglobin.total in Blood Hemoglobin A1c Lab Routine Type 2 diabetes mellitus with diabetic peripheral angiopathy without gangrene, without long-term current use of insulin (CMS/HCC) Expected: 06/04/2024 (Approximate), Expires: 06/04/2025 [facility] Work Phone: Comment on above: Expected: 06/04/2024 (Approximate), Expi res: 06/04/2025 Start: 06-04-2024 End: 06-04-2024 Patient encounter procedure 06/04/2024 1:20 PM EDT Office Visit [facility] [address] [place] [phone] Tonya Dye, SHIVAM [address] [place] [phone] Primary hypertension (CMS/HCC) (Primary Dx); Type 2 diabetes mellitus with diabetic peripheral angiopathy without gangrene, without long-term current use of insulin (CMS/HCC); Uncontrolled type 2 diabetes mellitus with hyperglycemia (CMS/HCC); PAD (peripheral artery disease) (CMS/HCC) [facility] Comment on above: Primary hypertension (CMS/HCC) (Primary Dx); Type 2 diabetes mellitus with diabetic peripheral angiopathy without gangrene, without long-term current use of insulin (CMS/HCC); Uncontrolled type 2 diabetes mellitus with hyperglycemia (CMS/HCC); PAD (peripheral artery disease) (CMS/HCC) Start: 05-10-2024 End: 05-10-2024 Patient encounter procedure 05/10/2024 12:30 PM EDT Office Visit [facility] [address] [place] [address] Ava Law MD [address] [place] [address] [facility] Start: 04-29-2024 End: 04-29-2024 Patient encounter procedure 04/29/2024 11:00 AM EDT Appointment [facility] - Echocardiogram [address] [place] [phone] Leah Salgado MD [address] [place] [address] See Mike MD [address] [place] [address] [facility] Ech[facility] Start: 03-29-2024 End: 03-29-2024 Patient encounter procedure 03/29/2024 2:30 PM EDT Office Visit [facility] [address] [place] [address] eLah Salgado MD [address] [place] [address] [facility] Start: 03-29-2024 End: 03-29-2025 US Heart Transesophageal Echo [facility] Echocardiography Routine Nonrheumatic aortic (valve) stenosis Expected: 03/29/2024, Expires: 03/29/2025 [facility] Work Phone: Comment on above: Expected: 03/29/2024, Expires: Start: 02-27-2024 End: 02-27-2024 Patient encounter procedure 02/27/2024 3:00 PM EDT Office Visit [facility] [address] [place] [address] Tonya Dye NP [address] [place] [address] [facility] Start: 02-08-2024 End: 02-07-2025 US.doppler Extremity arteries - bilateral for physiologic artery study Vas art doppler lwr bilat mult lev/PVR Vascular Ultrasound Routine Claudication [place] Cigarette smoker motivated to quit Expected: 02/08/2024, Expires: 02/07/2025 [facility] Work Phone: Comment on above: Expected: 02/08/2024, Expires: Start: 02-08-2024 End: 02-07-2025 US.doppler Lower extremity artery - right Vas art duplex lwr single right Vascular Ultrasound Routine Claudication ([facility] Cigarette smoker motivated to quit Expected: 02/08/2024, Expires: 02/07/2025 [facility] Comment on above: Expected: 02/08/2024, Expires: Start: 01-28-2024 Urine screening for protein Diabetes: Urine Protein Screening [facility] Start: 01-13-2024 COVID-19 Vaccine () COVID-19 Vaccine () [facility] Start: 11-29-2023 End: 11-29-2023 Patient encounter procedure 11/29/2023 3:20 PM EST Office Visit [facility] [address] [place] [address] Tonya Dye, SHIVAM [address] [place] [address] Arrived [facility] Comment on above: Arrived Start: 11-29-2023 End: 11-29-2024 CT Maxillofacial region WO and W contrast IV CT SINUS WO IV CONTRAST Imaging Routine 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 [place] Expected: 11/29/2023 (Approximate), Expires: 11/29/2024 [facility] Comment on above: Expected: 11/29/2023 (Approximate), Expi res: 11/29/2024 Start: 11-29-2023 Hemoglobin A1c measurement Diabetes: Hemoglobin A1C [facility] Start: 11-29-2023 End: 11-29-2024 Hemoglobin A1c/Hemoglobin.total in Blood Hemoglobin A1c Lab Routine Type 2 diabetes mellitus with diabetic neuropathy, without long-term current use of insulin ([facility]) Expected: 11/29/2023 (Approximate), Expires: 11/29/2024 [facility] Work Phone: Comment on above: Expected: 11/29/2023 (Approximate), Expi res: 11/29/2024 Start: 04-15-2023 Glaucoma screening Diabetes: Retinopathy Screening [facility] Start: 02-11-2023 Administration of varicella zoster vaccine Zoster (Shingles) Vaccine (3 of 3) [facility] Start: 2016 Abdominal aortic aneurysm screening Abdominal Aortic Aneurysm (AAA) Screen [facility] Start: 2016 Fall Risk Screening Fall Risk Screening [facility] Start: 1970 DTaP,Tdap and Td Vaccines (1 - Tdap) DTaP,Tdap and Td Vaccines (1 - Tdap) [facility] Start: 1969 Adult BMI Follow Up Plan Adult BMI Follow Up Plan [facility] Start: 1963 Depression Screening Depression Screening [facility] Start: 1951 Medicare Annual Wellness (AWV) Medicare Annual Wellness (AWV) [facility] Start: 1951 Medicare Annual Wellness Visit Medicare Annual Wellness Visit [facility] Start: 1950 Screening for malignant neoplasm of colon [facility] Start: 1951 Tobacco Counseling Tobacco Counseling [facility] End: 01-13-2026 Lipid panel Lipid panel Lab Routine Mixed hyperlipidemia 1 Occurrences starting 01/13/2025 until 01/13/2026 [facility] Comment on above: 1 Occurrences starting 01/13/2025 until 01/13/2026 Immunizations Immunization Date Immunization Notes Care Provider [facility] 07-12-2024 Seasonal trivalent influenza vaccine, adjuvanted, preservative free Tonya Dye SPECIAL DELIVERY MESSENGER Work Phone: [facility] 07-12-2024 influenza virus vaccine, unspecified formulation Yaneli Mauricio MD Work Phone: [facility] 08-03-2023 Influenza, High-dose Seasonal, Quadrivalent, Preservative Free Tonya Dye SPECIAL DELIVERY MESSENGER Work Phone: [facility] 08-03-2023 influenza virus vaccine, unspecified formulation Yaneli Mauricio MD Work Phone: [facility] 12-17-2022 zoster vaccine recombinant Tonya Dye SPECIAL DELIVERY MESSENGER Work Phone: [facility] 12-17-2022 zoster vaccine, unspecified formulation Yaneli Mauricio MD Work Phone: [facility] 07-27-2022 influenza, injectabl e, quadrivalent, preservative free Tonya Aichholz SPECIAL DELIVERY MESSENGER Work Phone: [facility] 07-29-2021 Kenalog -40 mg Ava Olexa Other [employer] Other 12-24-2020 COVID-19 Ad26.COV2.S (Venkatesh) Tonya Aichholz Work Phone: [facility] 09-07-2020 pneumococcal polysaccharide vaccine, 23 valent Ava Olexa Other [employer] Other 06-30-2020 influenza, injectabl e, quadrivalent, preservative free Tonya Aichholz SPECIAL DELIVERY MESSENGER Work Phone: [facility] 06-30-2020 influenza, seasonal, injectable Ava Olexa Other [employer] Other 08-07-2019 pneumococcal conjuga te vaccine, 13 valent Ava Olexa Other [employer] Other 07-25-2019 influenza, high dose seasonal, preservative-free Tonya Aichholz SPECIAL DELIVERY MESSENGER Work Phone: [facility] 08-26-2017 zoster vaccine, live Tonya chholz SPECIAL DELIVERY MESSENGER Work Phone: [facility] 08-01-2003 tetanus toxoid, adsorbed Tonya Aichholz SPECIAL DELIVERY MESSENGER Work Phone: [facility] Payers Date Payer Category Payer Self-pay [id number] 2017 Other GENERIC OTHER Nv mber [id number] 2016 Managed Care Other (unspecified) COMMERCIAL [id number]. [id number] 2016 Medicare [id number]. 1.13.693. 2.7.3.887192.315 2016 Unknown [id number]. 1.13.693. 2.7.3.218628.315 1959 Medicare [id number] 2.16.840.1.657868.19 1959 Unknown [id number] 2.16.840.1.606152.19 1951 Unknown [id number] 2.16.840.1.031622.3.579. 2.72 1951 Unknown [id number] 2.16.840.1.631502.3.579. 2. 1951 Unknown [id number] 2.16.840.1.646158.3.579. 2.727 1951 Unknown [id number] 2.16.840.1.259165.3.579. 2.72 1951 Unknown [id number] 2.16.840.1.623990.3.579. 2.593 1951 Unknown [id number] 2.16.840.1.537545.3.579. 2.593 1951 Unknown [id number] 2.16.840.1.921880.3.579. 2.593 1951 Unknown [id number] 2.16.840.1.271128.3.579. 2.593 1951 Unknown [id number] 2.16.840.1.885923.3.579. 2.593 1951 Unknown [id number] 2.16.840.1.551890.3.579. 2.593 1951 Unknown [id number] 2.16.840.1.652606.3.579. 2.593 1951 Unknown [id number] 2.16.840.1.942111.3.579. 2.593 1951 Unknown [id number] 2.16.840.1.786169.3.579. 2.593 1951 Unknown [id number] 2.16.840.1.147737.3.579. 2.593 1951 Unknown [id number] 2.16.840.1.170392.3.579. 2.593 1951 Unknown [id number] 2.16.840.1.728110.3.579. 2.593 1951 Unknown [id number] 2.16.840.1.729403.3.579. 2.593 1951 Unknown [id number] 2.16.840.1.152004.3.579. 2.593 1951 Unknown [id number] 2.16.840.1.751081.3.579. 2.1286 1951 Unknown [id number] 2.16.840.1.310066.3.579. 2.1286 1951 Unknown [id number] 2.16.840.1.925485.3.579. 2.1286 1951 Unknown [id number] 2.16.840.1.449296.3.579. 2.128 1951 Unknown [id number] 2.16.840.1.780761.3.579. 2.128 1951 Unknown [id number] 2.16.840.1.749549.3.579. 2.1259 1951 Unknown [id number] 2.840.1.824504.3.579. 2.1258 1951 Unknown [id number] 2.840.1.829549.3.579. 2.1258 1951 Unknown [id number] 2.840.1.325409.3.579. 2.1259 1951 Unknown [id number] 2.840.1.597571.3.579. 2.1258 1951 Unknown [id number] 2.16840.1.576885.3.579. 2.1259 Unknown [facility] [id number] Unknown HCAP/HFA/FAP Active [id number] Unknown [id number] 2.840.1.775877.3.579. 2.531 Unknown [id number] 2.840.1.899168.3.579. 2.531 Unknown [id number] 2.840.1.929911.3.579. 2.531 Social History Date Type Detail Facility Start: 10-31-2023 End: 03-27-2025 Sex Assigned At [facility] Start: 08-30-2022 Tobacco smoking status Heavy t obacco smoker (finding) [facility] Tobacco smoking status Never [facility] Start: 03-14-2021 Tobacco smoking stat us NHIS Smoker (finding) [facility] Start: 1950 Sex Assigned At Male F [facility] Start: 10-30-2023 End: 04-04-2024 Tobacco smoking status NHIS Smokes tobacco daily [facility] History of tobacco use Cigarette Smoker N [facility] Start: 10-30-2023 End: 03-27-2025 Cigarettes smoked current (pack per day) - Reported 1 [facility] Start: 10-30-2023 End: 04-04-2024 Tobacco use and exposure Smokeless tobacco non-user [facility] Start: 11-29-2023 End: 04-08-2025 Alcohol intake Lifetime non-drinker (finding) [facility] Start: 1950 Sex Assigned At Not on file N [facility] Start: 02-08-2024 End: 02-20-2025 Alcoholic beverage intake Ex-drinker (finding) [facility] Start: 08-17-2022 Tobacco Comment reports down t o 10 cigarettes a day 11/25/21 [facility] Start: 05-21-2015 Sex Male (finding) [facility] Medical Equipment Procedure Code Equipment Code Equipment Origin al Text Equipment Identifier Dates [id number] Start: 09-24-2020 End: 07-05-2025 Multiple periphe ral artery stent, bare-metal [id number] FDA Start: 03-09-2021 Stent Vsc 6mm 40 mm 130cm Dlv Sys Tamra - [id number] FDA Start: 08-24-2022 Functional Status Date Assessment Result Facility 03-27-2025 Patient Health Quest ionnaire 2 item (PHQ-2) [Reported] [facility] 08-30-2022 Functional Status N/A General Benjamin rgery Aileen [facility] Clinical Notes 03-09-2021 to 04-08-2025 Tonya Dye NP - 04/08/2025 1:52 PM Juanita Dye NP - 04/08/2025 1:51 PM Juanita Dye NP - 04/08/2025 1:51 PM MARCELLO BRADLEY - 04/08/2025 1:00 PM EDTPatient Instructions Note Date & Type Note Facility 04-08-2025 History of Presen t illness Narrative Associated Problem(s): Diverticulitis Check labs, if pain worsens go to Er Allergies to PCN and cipro Associated Problem(s): HTN (hypertension) Please check blood pressure daily and record DASH diet Limit caffeine Take medication as directed Contact office if chest pain, pressure, dizziness, shortness of breath, swelling legs Recommend slow position changes Current meds: amlodipine and b shima Associated Problem(s): Abdominal pain, generalized Check labs Suspicion divertic, but possible gallbladder Pt states pain started about 6 weeks ago. Pt is having upper back pain that goes all around. Stomach pain can be in in all abd quads and cramping. Pt has been having some constipation Pt has nausea at times Typically happens late afternoon-evening time Darin Thacker is a 75 y.o. male presents with chief complaint of Abdominal Pain and Back Pain HPI: Abd pain: 6 weeks ago, intermittent, upper abd and mid abd, with some around at shoulder blade level Occ nausea, no worse/better with eating, some intermittent constipation. No diff with urination, no fever/chills Achy pain. No bloody stools or urine [...] automated Amylase Lipase documented in this encounter [facility] 04-08-2025 Instructions Tonya Dye NP - 04/08/2025 1:00 PM EDT Get labs done Soft diet, bland foods, if worsening pain go to the ER We will order US of gallbladder, fax order to [facility], they will call you about scheduling this documented in this encounter [facility] 03-27-2025 History of Presen t illness Narrative Associated Problem(s): Primary insomnia Awake off and on, cannot shut off mind Add trazodone See if helps Pt needs only 1 test strip daily his insurance will not cover 3 test strips daily anymore Images from the original note were not [...] last year: yes Specialist: vascular, eye doctor, bottom cager HCPOA/Living Will: no Concerns: none Hypertension This [...] mellitus, dyslipidemia, male gender and smoking/tobacco exposure. Past treatments include beta blockers and calcium channel blockers. [...] complications. Symptoms are stable. Diabetic complications include heart disease, peripheral neuropathy and PVD. Risk factors for [...] being taken. He does not see a face worker.Eye exam is current. SUBJECTIVE: MEDICATIONS: Current Outpatient [...] Size: Adult long) Pulse 75 Temp 98.5 F (Temporal) Resp 18 Wt 187 lb SpO2 93% BMI 29.29 kg/m Smoking Status Every Day BSA 2 m Physical Exam Vitals and nursing note reviewed. [...] of the risks of continued smoking: stroke, VA, all forms of cancer, lung disease, and . Options for quitting smoking include: cold turkey, hypnosis, acupuncture, nicotine replacement meds (gum, lozenges, and patches), Buproprion, and Varenicline. At this time pt is encouraged to evaluate their goals for wanting to quit smoking, and reach out to provider when ready to start this process Relevant [...] and simple sugars. Current meds: farxiga, statin, BENJAMIN, actos, and metformin A1c 7.9% 03/27/25 8.9% [...] glucose blood (Accu-Chek Nicolle Plus) test strip Associated Problem(s): Tobacco user The patient has been advised of the risks of continued smoking: stroke, VA, all forms of cancer, lung disease, and . Options for quitting smoking include: cold turkey, hypnosis, acupuncture, nicotine replacement meds (gum, lozenges, and patches), Buproprion, and Varenicline. At this time pt is encouraged to evaluate their goals for wanting to quit smoking, and reach out to provider when ready to start this process Associated Problem(s): Hyperlipidemia On statin therapy Recommend yearly lab checks and prn dose changes Associated Problem(s): Encounter for subsequent annual wellness visit (AWV) in Medicare patient Reviewed Ht/Wt/BMI Recommend eye exam yearly Recommend dental exams twice a year Balance work/leisure activities Exercises is recommended most days of the week (appropriate as chronic conditions allow) Follow up yearly and prn Associated Problem(s): Type 2 diabetes mellitus, without long-term [...] and simple sugars. Current meds: farxiga, statin, BENJAMIN, actos, and metformin A1c 7.9% 03/27/25 8.9% 11/20/24 Associated Problem(s): Type 2 diabetes mellitus with circulatory [...] farxiga, glipizide, metformin, pioglitazone A1c: 7.9% 03/27/25 Associated Problem(s): HTN (hypertension) Please check blood pressure daily and record DASH diet Limit caffeine Take medication as directed Contact office if chest pain, pressure, dizziness, shortness of breath, swelling legs Recommend slow position changes Current meds: amlodipine and b shima Associated Problem(s): Diastolic dysfunction Per ECHO findings Current meds: amlodipine, farxiga, b shima Associated Problem(s): Type 2 diabetes mellitus with diabetic polyneuropathy (HCC) Is currently taking gabapentin OARRS reviewed Recommend tight blood sugar control, proper fitting shoes, freq foot checks documented in this encounter [facility] 03-27-2025 Instructions Tonya Dye NP - 03/27/2025 2:00 PM EDT No dose changes to meds Keep up good work on avoiding Little Debbies For sleep: add trazodone 50mg pill, take about an hour before bed After a few weeks let me know if the dose is working or not If confusion, depression occur call me documented in this encounter [facility] [facility] Miscellaneous Notes Spoke to patient per Jessica , bypass is open , left is moderate will continue to watch . Lynn look good documented in this encounter [facility] 03-17-2025 Telephone encounter Note Spoke to patient per Jessica , bypass is open , left is moderate will continue to watch . Lynn look good [facility] 02-26-2025 Miscellaneous Notes Skidder Driver called pt and left a vmm regarding patients carotid ultrasound results that show very minimal carotid stenosis. Patient may wait until his already scheduled appt to return next year. documented in this encounter [facility] 02-26-2025 Telephone encounter Note Skidder Driver called pt and left a vmm regarding patients carotid ultrasound results that show very minimal carotid stenosis. Patient may wait until his already scheduled appt to return next year. [facility] 02-20-2025 History of Presen t illness Narrative Images from the original note were not included. [facility] [address] [facility] [id number] Subjective: Patient ID: Darin Thacker is a 74 y.o. male. Chief Complaint No chief complaint on file. History of Present Illness: 74-year-old male whom we follow for history of peripheral arterial disease. He underwent right lower extremity revascularization with a femoral to below-knee popliteal bypass with vein in 2021. He presents for his annual surveillance follow up with vascular study review. He remains asymptomatic without any complaints of recurrent claudication or tissue loss. Reports he is relatively active. He has baseline neuropathy in his feet from his diabetes. He is on antiplatelet therapy with Plavix as well as a statin. Patient Active Problem List Diagnosis Sebaceous cyst Claudication Primary hypertension Pre-op exam Draining postoperative wound Obesity (BMI 30.0-34.9) Nonrheumatic aortic (valve) stenosis Palatal lesion Tinnitus Hearing loss Cigarette smoker motivated to quit Current Outpatient Medications: amLODIPine (NORVASC) 5 mg tablet, Take 1 tablet (5 mg total) by mouth in the morning., Disp: , Rfl: clopidogreL (PLAVIX) 75 mg tablet, Take 1 tablet (75 mg total) by mouth in the morning., Disp: 90 tablet, Rfl: 3 cyanocobalamin 1000 MCG tablet, Take 1 tablet (1,000 mcg total) by mouth in the morning., Disp: , Rfl: FARXIGA 10 mg tablet, 1 mg in the morning., Disp: , Rfl: ferrous sulfate 325 (65 FE) mg tablet, Take 1 tablet (325 mg total) by mouth daily with breakfast., Disp: , Rfl: fluticasone (FLONASE) 50 mcg/actuation nasal spray, Administer 2 sprays into each nostril daily., Disp: 16 g, Rfl: 11 gabapentin (NEURONTIN) 300 mg capsule, Take 2 capsules (600 mg total) by mouth in the morning and 2 capsules (600 mg total) at noon and 2 capsules (600 mg total) in the evening and 2 capsules (600 mg total) before bedtime., Disp: , Rfl: glipiZIDE (GLUCOTROL) 10 mg tablet, Take 1 tablet (10 mg total) by mouth in the morning., Disp: , Rfl: metFORMIN (GLUCOPHAGE) 1000 mg tablet, 1 tablet (1,000 mg total) in the morning and 1 tablet (1,000 mg total) in the evening. Take with meals., Disp: , Rfl: metoprolol tartrate (LOPRESSOR) 50 mg tablet, Take 1 tablet (50 mg total) by mouth in the morning and 1 tablet (50 mg total) before bedtime., Disp: , Rfl: pioglitazone (ACTOS) 30 mg tablet, Take 1 tablet (30 mg total) by mouth in the morning., Disp: , Rfl: simvastatin (ZOCOR) 20 mg tablet, Take 1 tablet (20 mg total) by mouth in the morning., Disp: , Rfl: tamsulosin (FLOMAX) 0.4 mg capsule,extended release 24hr, Take 1 capsule (0.4 mg total) by mouth nightly., Disp: , Rfl: The following portions of the patient's history were reviewed and updated as appropriate: allergies, current medications, past family history, past medical history, past social history, past surgical history and problem list. Review of Systems: Review of Systems Constitutional: Negative for appetite change, chills, diaphoresis, fatigue and fever. HENT: Negative for congestion, facial swelling, nosebleeds, sinus pressure, sore throat and trouble swallowing. Eyes: Negative for pain, redness and visual disturbance. Respiratory: Negative for cough, chest tightness, shortness of breath and wheezing. Cardiovascular: Negative for chest pain, palpitations and leg swelling. Gastrointestinal: Negative for abdominal distention, abdominal pain, constipation, diarrhea, nausea and vomiting. Genitourinary: Negative for dysuria, flank pain, frequency, hematuria and urgency. Musculoskeletal: Negative for arthralgias and joint swelling. Skin: Negative for pallor, rash and wound. Neurological: Negative for dizziness, syncope, facial asymmetry, weakness, light-headedness, numbness and headaches. Objective: Vitals BP 159/75 (BP Site: Left Arm, BP Postition: Sitting, BP CUFF SIZE: M (9-13 inches)) Pulse 81 Ht 170.2 cm (5' 7 ) Wt 83.9 kg (185 lb) BMI 28.98 kg/m Physical Exam Physical Exam Constitutional: Appearance: Normal appearance. HENT: Head: Normocephalic and atraumatic. Cardiovascular: Rate and Rhythm: Normal rate. Pulses: Dorsalis pedis pulses are 2+ on the right side and detected w/ doppler on the left side. Posterior tibial pulses are detected w/ doppler on the left side. Pulmonary: Effort: Pulmonary effort is normal. Abdominal: General: Abdomen is flat. Palpations: Abdomen is soft. Neurological: General: No focal deficit present. Mental Status: He is alert and oriented to person, place, and time. Vascular: Right Lower Extremity Right lower extremity pulses DP: 2+ Right lower extremity edema: none Right Lower Extremity Skin Integrity: Clean dry and intact without ulceration Left Lower Extremity Left lower extremity pulses DP: detected w/ doppler Doppler findings: strong PT: detected w/ doppler Doppler findings: strong Left lower extremity edema: none Left Lower Extremity Skin Integrity: Clean dry and intact without ulceration Studies Reviewed No results found for: DDIMER Lab Results Component Value Date GLU 173 (H) 11/12/2021 CALCIUM 8.5 11/12/2021 SODIUM 138 11/12/2021 K 3.8 11/12/2021 CO2 27 11/12/2021 BUN 13 11/12/2021 CREATININE 0.52 (L) 11/12/2021 Lab Results Component Value Date WBC 7.9 11/12/2021 HGB 14.2 11/12/2021 HCT 41.5 11/12/2021 MCV 90 11/12/2021 PLT 192 11/12/2021 Assesment: Diagnoses and all orders for this visit: PAD (peripheral artery disease) - Vas art duplex lwr graft scan right; Future - Vas art doppler lwr bilat mult lev/PVR; Future Claudication - Vas art duplex lwr graft scan right; Future - Vas art doppler lwr bilat mult lev/PVR; Future History of arterial bypass of lower extremity - Vas art duplex lwr graft scan right; Future - Vas art doppler lwr bilat mult lev/PVR; Future Plan Plan: 74-year-old male with history of a right femoral to below-knee popliteal artery bypass with vein in 2021. Recent arterial duplex imaging reviewed. Bypass shows good patency. Patient denies any complaints of recurrent lower extremity claudication or tissue loss. On exam both feet are warm and pink. He has an easily palpable right dorsal pedal pulse and strong signals in the left dorsal pedal. We discussed continued conservative measures with exercise regimen. Discussed smoking cessation. We will plan to see him back in 1 year with repeat duplex imaging and PVRs. Continue antiplatelet and statin therapy. This note was created with the assistance of a speech recognition program. While intending to generate a timely document that accurately reflects the content of the visit, no guarantee can be provided that every grammatical or spelling mistake has been or will be identified or corrected. Thank you for your understanding. PAWEL Reyes APRN-CNP 02/20/25 1510 documented in this encounter [facility] 01-16-2025 Miscellaneous Notes Called patient to inform patient or appt change with dr mauricio on 02/20 in [place] to jessica méndez CNP to [place] location but at 300 instead; LVM to call the office if this didn't work for him; please assist if needed documented in this encounter [facility] 01-16-2025 Telephone encounter Note Called patient to inform patient or appt change with dr mauricio on 02/20 in [place] to jessica méndez CNP to [place] location but at 300 instead; LVM to call the office if this didn't work for him; please assist if needed [facility] 01-16-2025 Miscellaneous Notes Called patient to inform patient of appt change; patient is now seeing jessica alvaro same day but at the [place] location at 3pm; LVM with information and if need to rescheduled to give us a call; please assist if neccessary documented in this encounter [facility] 01-16-2025 Telephone encounter Note Called patient to inform patient of appt change; patient is now seeing jessica méndez same day but at the [place] location at 3pm; LVM with information and if need to rescheduled to give us a call; please assist if neccessary [facility] 01-13-2025 History of Presen t illness Narrative Darin Thacker Date of visit: 01/13/2025 Date of : 1950 Age: 74 y.o. Patient Active Problem List Diagnosis Sebaceous cyst Claudication (CMS-HCC) Primary hypertension Pre-op exam Draining postoperative wound Obesity (BMI 30.0-34.9) Nonrheumatic aortic (valve) stenosis Palatal lesion Tinnitus Hearing loss Cigarette smoker motivated to quit Allergies Allergen Reactions Ciprofloxacin Hives Penicillins Trulicity [Dulaglutide] GI Disturbance Victoza 2-Bandar [Liraglutide] Current Outpatient Medications Medication Sig Dispense Refill amLODIPine (NORVASC) 5 mg tablet Take 1 tablet (5 mg total) by mouth in the morning. clopidogreL (PLAVIX) 75 mg tablet Take 1 tablet (75 mg total) by mouth in the morning. 90 tablet 3 cyanocobalamin 1000 MCG tablet Take 1 tablet (1,000 mcg total) by mouth in the morning. FARXIGA 10 mg tablet 1 mg in the morning. ferrous sulfate 325 (65 FE) mg tablet Take 1 tablet (325 mg total) by mouth daily with breakfast. fluticasone (FLONASE) 50 mcg/actuation nasal spray Administer 2 sprays into each nostril daily. 16 g 11 gabapentin (NEURONTIN) 300 mg capsule Take 2 capsules (600 mg total) by mouth in the morning and 2 capsules (600 mg total) at noon and 2 capsules (600 mg total) in the evening and 2 capsules (600 mg total) before bedtime. glipiZIDE (GLUCOTROL) 10 mg tablet Take 1 tablet (10 mg total) by mouth in the morning. metFORMIN (GLUCOPHAGE) 1000 mg tablet 1 tablet (1,000 mg total) in the morning and 1 tablet (1,000 mg total) in the evening. Take with meals. metoprolol tartrate (LOPRESSOR) 50 mg tablet Take 1 tablet (50 mg total) by mouth in the morning and 1 tablet (50 mg total) before bedtime. pioglitazone (ACTOS) 30 mg tablet Take 1 tablet (30 mg total) by mouth in the morning. simvastatin (ZOCOR) 20 mg tablet Take 1 tablet (20 mg total) by mouth once daily. tamsulosin (FLOMAX) 0.4 mg capsule,extended release 24hr Take 1 capsule (0.4 mg total) by mouth nightly. No current facility-administered medications for this visit. Chief Complaint Patient presents with Follow-up EST PT F/U NO TESTS -L/S TMP Hypertension History of Present Illness Darin Thacker patient is a 74-year-old male with a past medical history of moderate on NOHEMI, b.i.d. claudication S/P right lower extremity bypass 10/2021, type 2 diabetes mellitus, active tobacco use Patient presents today for follow up at this visit he endorses he has been ambulating with no complaints of chest pain, shortness of breath, or dyspnea on exertion. 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 Since his peripheral vascular valve bypass has been feeling well. Continues to smoke about 4-5 cigarettes every other day. No episodes of syncope Past Medical History: Diagnosis Date Allergies Anxiety Back pain Benign prostatic hyperplasia Dental disease Depression [place] Diabetes mellitus type 2, controlled [place] Eczema HL (hearing loss) Hyperlipidemia Hypertension Injury of back Kidney stone Obesity PAD [place]peripheral artery disease) [place] right foot pain Pneumonia Psoriasis No data recorded No data recorded No data recorded Past Surgical History: Procedure Laterality Date BYPASS ARTERY FEMORAL POPLITEAL WITH VEIN GRAFT RIGHT Right 11/10/2021 Performed by Omid Ricks MD at [facility] COLONOSCOPY 12/02/2016 Dr. Li COLONOSCOPY 11/17/2006 Dr. Li HAND SURGERY Right MOUTH BIOPSY 08/10/2022 throat Right Leg Angiogram Right 09/30/2021 Performed by Omid Ricks MD at [facility] CARDIAC CATH LABS ROTATOR CUFF REPAIR Bilateral Dr. Ribeiro 2009; Dr. Vidal 2011 rt leg angio Right 08/24/2022 Performed by Omid Ricks MD at [facility] CARDIAC CATH LABS SKIN BIOPSY 2009 from back VASCULAR SURGERY 03/09/2021 stents rt. leg Family History Problem Relation Age of Onset Diabetes Mother Heart disease Father Breast cancer Sister Diabetes Brother No Known Problems Son Kidney disease Maternal Grandmother Diabetes Maternal Grandfather No Known Problems Paternal Grandmother No Known Problems Paternal Grandfather Anesthesia problems Neg Hx Social History Socioeconomic History Marital status: Spouse name: Not on file Number of children: Not on file Years of education: Not on file Highest education level: Not on file Occupational History Not on file Tobacco Use Smoking status: Every Day Current packs/day: 0.50 Average packs/day: 0.5 packs/day for 30.0 years (15.0 ttl pk-yrs) Types: Cigarettes Smokeless tobacco: Never Tobacco comments: reports down to 10 cigarettes a day 11/25/21 Vaping Use Vaping status: Never Used Substance and Sexual Activity Alcohol use: Not Currently Drug use: Never Sexual activity: Defer Other Topics Concern Coffee Not Asked Tea Not Asked Carbonated Beverages Not Asked Chocolate Not Asked Caffeine Use Yes Social History Narrative Not on file Social Drivers of Health Financial Resource Strain: Not on file Food Insecurity: No Food Insecurity (05/10/2024) Hunger Screening Food Insecurity - Worry: Never True Food Insecurity - Inability: Never True Transportation Needs: Not on file Physical Activity: Not on file Stress: Not on file Social Connections: Not on file Interpersonal Safety: Unknown (12/07/2023) Received from [facility] Safety [facility] Environment Fear of Current or Ex-Partner: Not on file Emotionally Abused: Not on file Physically Abused: Not on file Sexually Abused: Not on file Physically or Sexually Abused: Not on file Housing Instability: Not on file Review of Systems Review of Systems Constitutional: Negative for malaise/fatigue. HENT: Positive for hearing loss ([place]). Negative for nosebleeds. Respiratory: Negative for cough, hemoptysis and shortness of breath. Hematologic/Lymphatic: Does not bruise/bleed easily. Musculoskeletal: Negative for falls, joint swelling, muscle cramps and muscle weakness. Gastrointestinal: Negative for hematochezia. Genitourinary: Negative for hematuria. Neurological: Negative for dizziness, headaches and light-headedness. Vascular: Negative for claudication and lower extremity wounds or ulcers. CARDIOVASCULAR: Please review HPI. Physical Examination General appearance: Alert, oriented and cooperative. In no acute distress. Skin: Warm and dry to touch. Head: Normocephalic, without obvious abnormality, atraumatic. Ears, Nose, Mouth, Throat: Throat clear without erythema or exudate. Dentition intact. Eyes: Conjunctivae unremarkable, EOM intact. Neck: No JVD Respiratory: + wheezing Cardiovascular: RRR with normal S1 and S2 with systolic murmur murmur. Gastrointestinal: Soft, non-tender. Bowel sounds normal. Musculoskeletal: No peripheral edema. Neurologic: Oriented to time, person and place, affect appropriate. No focal/major motor defects noted. Psychiatric: Appropriate mood, memory and judgement. VITAL SIGNS: BP 138/68 (BP Site: Left Arm, BP Postition: Sitting, BP CUFF SIZE: M (9-13 inches)) Pulse 94 Ht 170.2 cm (5' 7 ) Wt 86.5 kg (190 lb 9.6 oz) SpO2 95% BMI 29.85 kg/m No orders of the defined types were placed in this encounter. There are no discontinued medications. IMPRESSIONS/PLAN 1. Moderate aortic valve stenosis - TTE 04/2024, moderate with peak gradient of 47, mean gradient of 27, DVI above 0.25 -TTE due in 3-4 months for yearly -currently asymptomatic -Currently already established with a dentist 2. Mixed hyperlipidemia - due for repeat lipid 3. Type 2 diabetes mellitus 4. PAD S/P right lower extremity bypass fem-pop 11/[address] Ricks 5. Hypertension Record blood pressure and heart rate 3 times per week. Call if systolic (top) number is consistently greater than 140 or less than 100 or diastolic (bottom) number is consistently greater than 90. Call if heart rate is consistently greater than 110 or less than 50. Patient is stable from a cardiovascular standpoint, he may follow up in 6 months with his echocardiogram. Currently asymptomatic, no syncope, euvolemic. Seen with Dr. Salgado in the office. TODAYS ORDERS Orders Placed This Encounter Procedures Lipid panel Echo complete W/O contrast FOLLOW UP Return in about 6 months (around 07/15/2025). PCP: PAWEL MALDONADO Referring Physician: PAWEL Maldonado [address] [place] [address] Vanessa Persaud PA-C 01/13/25 0947 documented in this encounter [facility] 01-13-2025 Instructions Vanessa Pesraud PA-C - 01/13/2025 9:00 AM EDT Are You Ready To Kick The Habit? Free Tobacco Cessation Resources [facility] Tobacco [facility] Services [facility] Tobacco [facility] Centers provide all employees with free tobacco cessation services that include: Counseling to understand nicotine addiction Education about medications that can help you successfully quit Assistance with developing a plan to quit Call to set up an individual appointment or find out when group classes will be held: [facility]: [phone] [facility]: [phone] [facility]: [phone] [facility]: [phone] Quit Smoking Action Plan and Resources [facility] offers an eight-week, online smoking cessation plan to all [facility] employees, regardless of whether [employer] is your medical insurance provider. Go to [email or web address] and click the Health Risk Assessment and Resources link to get started. In the [employer] menu, click Action Plans instead of Health Risk Assessment to access the Quit Smoking Action Plan. Additional smoking cessation resources are also available to all [facility] employees on the [employer] web page at www.[employer]/quit smoking. [facility] Tobacco Cessation Program If [employer] is your medical insurance provider, there are more free resources available to you, including: No copays or deductibles on local tobacco cessation counseling services to help you quit Prescription assistance for tobacco cessation medications to help you quit For details about the tobacco cessation program available to [employer] members, go to www.[employer] (Search: Tobacco Cessation Program). [place] Tobacco Quit Line 7-318-FKCH-NOW ( ) is a toll-free, telephonic service that helps [place] residents quit smoking and using tobacco. It is staffed by experts who tailor a quit plan for you and provide you with advice. [place] Tobacco Quit Line 7-129-FAOI-NOW ( ) is a toll-free, telephonic service that helps [place] residents quit smoking and using tobacco. It is staffed by experts who tailor a quit plan for you and provide you with advice. Two weeks of nicotine replacement therapy may be provided at no charge, if needed. Additional Resources These national organizations also offer free information and resources to help you quit tobacco: [place] [employer]--www.cancer.org/healthy/ stayawayfromtobacco [place] [employer]--www.heart.org (Search: Quit Smoking) Centers for Disease Control and Prevention--www.cdc.gov/tobacco [place] [employer]--www.lungusa.org Echocardiogram in 3-4 months documented in this encounter [facility] 01-10-2025 Miscellaneous Notes Called pt to confirm appt Monday w KM and to bring current list of meds, photo id, and insurance card. Pt confirmed documented in this encounter [facility] 01-10-2025 Telephone encounter Note Called pt to confirm appt Monday w KM and to bring current list of meds, photo id, and insurance card. Pt confirmed [facility] 11-20-2024 History of Presen t illness Narrative Pt states he would like a refill on his fluticasone (Flonase) 50 MCG/ACT nasal spray Images from the original note were not included. Darin Thacker is a 74 y.o. male presents with chief complaint of Diabetes HPI: Diabetes He presents for his follow-up diabetic visit. He has type 2 diabetes mellitus. His disease course has been worsening. There are no hypoglycemic associated symptoms. Pertinent negatives for hypoglycemia include no dizziness, nervousness/anxiousness, seizures or tremors. Pertinent negatives for diabetes include no blurred vision, no chest pain, no fatigue, no polydipsia, no polyphagia and no polyuria. There are no hypoglycemic complications. Symptoms are worsening. Diabetic complications include heart disease, peripheral neuropathy and PVD. Pertinent negatives for diabetic complications include no CVA. Risk factors for coronary artery disease include diabetes mellitus, dyslipidemia, hypertension, male sex, obesity, sedentary lifestyle and tobacco exposure. Current diabetic treatment includes oral agent (triple therapy). He is compliant with treatment all of the time. His overall blood glucose range is 130-140 mg/dl. An SANTOS inhibitor/angiotensin II receptor shima is being taken. He does not see a face worker.Eye exam is current. Hypertension This is a chronic problem. The current episode started more than 1 year ago. The problem is unchanged. The problem is controlled. Pertinent negatives include no blurred vision, chest pain, palpitations, peripheral edema or shortness of breath. There are no associated agents to hypertension. Risk factors for coronary artery disease include diabetes mellitus, dyslipidemia, male gender, obesity, sedentary lifestyle and smoking/tobacco exposure. Hypertensive end-organ damage includes PVD. There is no history of CVA. SUBJECTIVE: MEDICATIONS: Current Outpatient Medications Medication Instructions Accu-Chek Nicolle Plus test strip 1 each, Daily amLODIPine (NORVASC) 5 mg, Oral, Daily clopidogrel (PLAVIX) 75 mg, Daily dapagliflozin (FARXIGA) 10 mg, Oral, Daily dicyclomine (BENTYL) 20 mg, 4 times daily PRN fluticasone (Flonase) 50 MCG/ACT nasal spray gabapentin (Neurontin) 600 MG tablet 1 am , 1 in the afternoon, and 2 at bedtime glipiZIDE (GLUCOTROL) 10 mg, Oral, 2 times daily before meals metFORMIN (GLUCOPHAGE) 1,000 mg, Oral, 2 times daily with meals metoprolol tartrate (LOPRESSOR) 50 mg, Oral, 2 times daily, Take 50 mg by mouth. ondansetron ODT (ZOFRAN-ODT) 4 mg, Every 6 hours PRN pantoprazole (PROTONIX) 40 mg, Oral, Daily before breakfast pioglitazone (ACTOS) 30 mg, Oral, Daily simvastatin (ZOCOR) 20 mg, Oral, Nightly, 1 po daily tamsulosin (FLOMAX) 0.8 mg, Nightly Ventolin HFA 108 (90 Base) MCG/ACT inhaler 2 puffs, Every 4 hours PRN ALLERGIES: Allergies Allergen Reactions Ceclor [Cefaclor] Ciprofloxacin Unknown Dulaglutide Unknown Liraglutide Unknown Penicillin G Unknown REVIEW OF SYMPTOMS: Review of Systems Constitutional: Negative for activity change, appetite change, fatigue and unexpected weight change. HENT: Negative for ear pain, nosebleeds, sneezing, trouble swallowing and voice change. Eyes: Negative for blurred vision, pain, discharge and visual disturbance. Respiratory: Negative for apnea, chest tightness, shortness of breath and wheezing. Cardiovascular: Negative for chest pain, palpitations and leg swelling. Gastrointestinal: Negative for abdominal [...] not on file. OBJECTIVE: Visit Vitals BP 140/78 (BP Location: Left arm, Patient Position: Sitting, BP Cuff Size: Adult long) Pulse 78 Temp 98.1 F (Temporal) Resp 18 Wt 192 lb 6.4 oz SpO2 96% BMI 30.13 kg/m Smoking Status Every Day BSA 2.03 m Physical Exam Vitals and nursing note reviewed. [...] sounds: Normal breath sounds. No wheezing or rales. Abdominal: General: Bowel sounds are normal. There is no distension. Palpations: Abdomen is soft. There is no mass. Tenderness: There is no abdominal tenderness. Hernia: No hernia is present. Musculoskeletal: Cervical back: Neck supple. Right lower [...] file. Problem List Items Addressed This Visit HTN (hypertension) (CMS/HCC) - Primary Current meds: amlodipine and b shima Hyperlipidemia (CMS/HCC) On statin therapy Recommend yearly lab checks and prn dose changes PAD (peripheral artery disease) (CMS/HCC) (Chronic) Continues with vascular doctor Current meds: plavix, statin Recommend good BP and DM control Tobacco user The patient has been advised of the risks of continued smoking: stroke, VA, all forms of cancer, lung disease, and . Options for quitting smoking include: cold turkey, hypnosis, acupuncture, nicotine replacement meds (gum, lozenges, and patches), Buproprion, and Varenicline. At this time pt is encouraged to evaluate their goals for wanting to quit smoking, and reach out to provider when ready to start this process Type 2 diabetes mellitus with unspecified diabetic retinopathy without macular edema (CMS/HCC) Allergic rhinitis Relevant Medications fluticasone (Flonase) 50 MCG/ACT nasal spray Overweight (BMI 25.0-29.9) Type 2 diabetes mellitus with circulatory disorder, without long-term current use of insulin ([facility]) Check blood sugars daily, notify [...] diet low in carbohydrates, and simple sugars. Type 2 diabetes mellitus, without long-term current use of insulin (CMS/[facility]) Check blood sugars daily, notify [...] and simple sugars. Current meds: farxiga, statin, BENJAMIN, actos, and metformin A1c 8.9% 11/20/24 Relevant Orders POCT glycosylated hemoglobin (Hb A1C) docked device (Completed) Type 2 diabetes mellitus with diabetic peripheral angiopathy without gangrene (CMS/HCC) Heart failure, unspecified (CMS/HCC) Per ECHO findings Farxiga and b shima therapy Type 2 diabetes mellitus with diabetic polyneuropathy ([facility]) Is currently taking gabapentin OARRS reviewed Recommend tight blood sugar control Other Visit Diagnoses Type 2 diabetes mellitus with hyperglycemia (CMS/HCC) Relevant Orders POCT glycosylated hemoglobin (Hb A1C) docked device (Completed) Uncontrolled type 2 diabetes mellitus with hyperglycemia ([facility]/HCC) Associated Problem(s): Tobacco user The patient has been advised of the risks of continued smoking: stroke, VA, all forms of cancer, lung disease, and . Options for quitting smoking include: cold turkey, hypnosis, acupuncture, nicotine replacement meds (gum, lozenges, and patches), Buproprion, and Varenicline. At this time pt is encouraged to evaluate their goals for wanting to quit smoking, and reach out to provider when ready to start this process Associated Problem(s): Hyperlipidemia ([facility]) On statin therapy Recommend yearly lab checks and prn dose changes Associated Problem(s): Iron deficiency anemia Check labs Associated Problem(s): Type 2 diabetes mellitus, without long-term current use of insulin ([facility]) Check blood sugars daily, notify [...] and simple sugars. Current meds: farxiga, statin, BENJAMIN, actos, and metformin A1c 8.9% 11/20/24 Associated Problem(s): Type 2 diabetes mellitus with circulatory disorder, without long-term current use of insulin ([facility]) Check blood sugars daily, notify [...] diet low in carbohydrates, and simple sugars. Associated Problem(s): PAD (peripheral artery disease) (CMS/HCC) Continues with vascular doctor Current meds: plavix, statin Recommend good BP and DM control Associated Problem(s): HTN (hypertension) (CMS/HCC) Please check blood pressure daily and record DASH diet Limit caffeine Take medication as directed Contact office if chest pain, pressure, dizziness, shortness of breath, swelling legs Recommend slow position changes Current meds: amlodipine and b shima Associated Problem(s): Heart failure, unspecified (CMS/HCC) Per ECHO findings Farxiga and b shima therapy Associated Problem(s): Type 2 diabetes mellitus with diabetic polyneuropathy (CMS/HCC) Is currently taking gabapentin OARRS reviewed Recommend tight blood sugar control documented in this encounter [facility] 11-20-2024 Instructions Tonya Dye NP - 11/20/2024 2:00 PM EST Cut back on your Little Debbies, and more exercise please I would like you to take your farxiga with supper every night, no matter if your blood sugar is less than 120 documented in this encounter [facility] 08-20-2024 History of Presen t illness Narrative Associated Problem(s): Bilateral carotid bruits Hx PAD, CAD , HTN and DM Check US Associated Problem(s): Diverticulitis Currently no symptoms Associated Problem(s): BPH (benign prostatic hyperplasia) Improved with increase dose of flomax No other work up at this time Associated Problem(s): Hemorrhage due to aspirin therapy Was in hospital with GI bleeding, so asa was discontinued 133 fasting BS Images from the original note were not included. Darin Thacker is a 74 y.o. male presents with chief complaint of No chief complaint on file. HPI: No abd pain, no NVD no constipation or diarrhea, no blood stools Urine stream is stronger such increase of flomax it is better Hypertension This is a chronic problem. The problem is unchanged. The problem is controlled. Associated symptoms include peripheral edema. Pertinent negatives include no blurred vision, chest pain, palpitations or shortness of breath. There are no associated agents to hypertension. Risk factors for coronary artery disease include diabetes mellitus, dyslipidemia, male gender, sedentary lifestyle and smoking/tobacco exposure. Past treatments include beta blockers and calcium channel blockers. The current treatment provides significant improvement. There are no compliance problems. Hypertensive end-organ damage includes heart failure and PVD. Diabetes He presents for his follow-up diabetic visit. He has type 2 diabetes mellitus. His disease course has been stable. There are no hypoglycemic associated symptoms. Pertinent negatives for hypoglycemia include no dizziness, nervousness/anxiousness, seizures or tremors. Pertinent negatives for diabetes include no blurred vision, no chest pain, no polydipsia, no polyphagia, no polyuria and no visual change. There are no hypoglycemic complications. Symptoms are stable. Diabetic complications include heart disease, peripheral neuropathy and PVD. Risk factors for coronary artery disease include diabetes mellitus, dyslipidemia, hypertension, male sex and sedentary lifestyle. Current diabetic treatment includes oral agent (triple therapy). He is compliant with treatment all of the time. His overall blood glucose range is 130-140 mg/dl. An SANTOS inhibitor/angiotensin II receptor shima is not being taken. He does not see a face worker.Eye exam is current. SUBJECTIVE: MEDICATIONS: Current Outpatient Medications Medication Instructions Accu-Chek Nicolle Plus test strip 1 each, Daily amLODIPine (NORVASC) 5 mg, Oral, Daily clopidogrel (PLAVIX) 75 mg, Oral, Daily dapagliflozin (FARXIGA) 10 mg, Oral, Daily dicyclomine (BENTYL) 20 mg, 4 times daily PRN fluticasone (Flonase) 50 MCG/ACT nasal spray gabapentin (Neurontin) 600 MG tablet 1 am , 1 in the afternoon, and 2 at bedtime glipiZIDE (GLUCOTROL) 10 mg, Oral, 2 times daily before meals metFORMIN (GLUCOPHAGE) 1,000 mg, Oral, 2 times daily with meals metoprolol tartrate (LOPRESSOR) 50 mg, Oral, 2 times daily, Take 50 mg by mouth. ondansetron ODT (ZOFRAN-ODT) 4 mg, Every 6 hours PRN pantoprazole (PROTONIX) 40 mg, Oral, Daily before breakfast pioglitazone (ACTOS) 30 mg, Oral, Daily simvastatin (ZOCOR) 20 mg, Oral, Nightly, 1 po daily tamsulosin (FLOMAX) 0.8 mg, Oral, Nightly, Take 0.8 mg by mouth at bedtime Ventolin HFA 108 (90 Base) MCG/ACT inhaler 2 puffs, Every 4 hours PRN ALLERGIES: Allergies Allergen Reactions Ceclor [Cefaclor] Ciprofloxacin Unknown Dulaglutide Unknown Liraglutide Unknown Penicillin G Unknown REVIEW OF SYMPTOMS: Review of Systems Constitutional: Negative for activity change, appetite change and unexpected weight change. HENT: Negative for ear pain, nosebleeds, sneezing, trouble swallowing and voice change. Eyes: Negative for blurred vision, pain, discharge and visual disturbance. Respiratory: Negative for apnea, chest tightness, shortness of breath and wheezing. Cardiovascular: Negative for chest pain, palpitations and leg swelling. Gastrointestinal: Negative for abdominal [...] Bradycardia DDD (degenerative disc disease), cervical Diabetes ([facility]) Diabetic polyneuropathy associated with type 2 diabetes mellitus ([facility]) Foraminal stenosis of cervical region Frequent PVCs Hearing loss Heart murmur HTN (hypertension) ([facility]) Hyperlipidemia ([facility]) Incisional infection Lumbar radiculopathy 10/31/2023 Mass of both adrenal glands ([facility]) Neck pain Olecranon bursitis of left elbow Olecranon bursitis of right elbow PAD (peripheral artery disease) ([facility]) Peripheral neuropathy Popliteal cyst, right Psoriasis ([facility]) PVD (peripheral vascular disease) ([facility]) Retinopathy, diabetic, bilateral ([facility]) Ringing in ears, right Seasonal allergies Sebaceous cyst Tobacco user Uncontrolled type 2 diabetes mellitus with hyperglycemia ([facility]) Vitamin B12 deficiency Past Surgical [...] not on file. OBJECTIVE: Visit Vitals BP 116/70 (BP Location: Left arm, Patient Position: Sitting, BP Cuff Size: Adult long) Pulse 95 Temp 98.7 F (Temporal) Resp 18 Ht 5' 7 Wt 189 lb 3.2 oz SpO2 98% BMI 29.63 kg/m Smoking Status Every Day BSA 2.01 m Physical Exam Vitals and nursing note reviewed. Constitutional: Appearance: Normal appearance. HENT: Head: Normocephalic. Right Ear: External ear normal. Left Ear: External ear normal. Nose: Nose normal. Mouth/Throat: Mouth: Mucous membranes are moist. Pharynx: Oropharynx is clear. Eyes: Extraocular Movements: Extraocular movements intact. Conjunctiva/sclera: Conjunctivae normal. Neck: Vascular: Carotid bruit present. Comments: Unclear if bruits area related to murmur, or actually new Cardiovascular: Rate and Rhythm: Normal rate and regular rhythm. Pulses: Normal pulses. Heart sounds: Murmur heard. Pulmonary: Effort: Pulmonary effort is normal. No respiratory distress. Breath sounds: Normal breath sounds. No stridor. No wheezing or rales. Abdominal: General: Bowel sounds are normal. Palpations: Abdomen is soft. Tenderness: There is abdominal tenderness. There is rebound. There is no guarding. Hernia: No hernia is present. Musculoskeletal: Cervical back: Neck supple. Right lower leg: Edema present. Left lower leg: Edema present. Comments: Trace pre tibial Skin: General: Skin is warm and dry. Capillary Refill: Capillary refill takes 2 to 3 seconds. Neurological: General: No focal deficit present. Mental Status: He is alert. Psychiatric: Mood and Affect: Mood normal. Behavior: Behavior normal. Thought Content: Thought content normal. Judgment: Judgment normal. ASSESSMENT AND PLAN: Follow up in about 3 months (around 11/20/2024) for Recheck. Problem List Items Addressed This Visit BPH (benign prostatic hyperplasia) Improved with increase dose of flomax No other work up at this time HTN (hypertension) ([facility]) Please check blood pressure daily and record DASH diet Limit caffeine Take medication as directed Contact office if chest pain, pressure, dizziness, shortness of breath, swelling legs Recommend slow position changes PAD (peripheral artery disease) ([facility]) (Chronic) Cont plavix, and statin Relevant Orders Vascular US carotid artery duplex bilateral Tobacco user The patient has been advised of the risks of continued smoking: stroke, VA, all forms of cancer, lung disease, and . Options for quitting smoking include: cold turkey, hypnosis, acupuncture, nicotine replacement meds (gum, lozenges, and patches), Buproprion, and Varenicline. At this time pt is encouraged to evaluate their goals for wanting to quit smoking, and reach out to provider when ready to start this process Diabetic polyneuropathy associated with type 2 diabetes mellitus ([facility]) Continue with gabapentin Tight glucose control Diverticulitis Currently no symptoms Overweight (BMI 25.0-29.9) Type 2 diabetes mellitus, without long-term current use of insulin ([facility]) - Primary Check blood sugars daily, notify if <70 [...] sugars. UTD on A1c test as well Relevant Orders Vascular US carotid artery duplex bilateral Hemorrhage due to aspirin therapy Was in hospital with GI bleeding, so asa was discontinued Bilateral carotid bruits Hx PAD, CAD , HTN and DM Check US Relevant Orders Vascular US carotid artery duplex bilateral Associated Problem(s): Tobacco user The patient has been advised of the risks of continued smoking: stroke, VA, all forms of cancer, lung disease, and . Options for quitting smoking include: cold turkey, hypnosis, acupuncture, nicotine replacement meds (gum, lozenges, and patches), Buproprion, and Varenicline. At this time pt is encouraged to evaluate their goals for wanting to quit smoking, and reach out to provider when ready to start this process Associated Problem(s): Type 2 diabetes mellitus, without long-term current use of insulin ([facility]) Check blood sugars daily, notify [...] sugars. UTD on A1c test as well Associated Problem(s): Diabetic polyneuropathy associated with type 2 diabetes mellitus ([facility]) Continue with gabapentin Tight glucose control Associated Problem(s): PAD (peripheral artery disease) ([facility]) Cont plavix, and statin Associated Problem(s): HTN (hypertension) ([facility]) Please check blood pressure daily and record DASH diet Limit caffeine Take medication as directed Contact office if chest pain, pressure, dizziness, shortness of breath, swelling legs Recommend slow position changes documented in this encounter [facility] 08-20-2024 Instructions Tonya Dye NP - 08/20/2024 2:20 PM EST [facility] should call about Ultra Sound of carotid arteries, if no call in 10 days, call this office documented in this encounter [facility] 07-22-2024 History of Presen t illness Narrative Associated Problem(s): Acute gastritis without hemorrhage Symptoms improved with use of PPI, as well as carafate Will have him restart the pantoprazole Fu in 4 weeks Average fast bs is 140-160s [facility] [place] [phone], but realized that the [facility] where the [facility] was a [facility]m supply Images from the original note were not included. Darin Thacker is a 74 y.o. male presents with chief complaint of No chief complaint on file. HPI: [facility] ER 07/03/24 abd pain Hx diverticulitis, 03/08 Upper abd, achy, burning pain. 04/24. + nausea, no vomiting no fever, +diarrhea, no urinary symptoms no bloody stool or urine No radiation. Went to [facility] ER, had labs and CT scan, sent home with meds Now: slight discomfort to upper abd, intermittent, not worse after eating, does drink coffee (1 1/2 cups daily), +tobacco. The medications took away the symptoms, was given about 7 days or so worth of meds. SUBJECTIVE: MEDICATIONS: Current Outpatient Medications Medication Instructions Accu-Chek Nicolle Plus test strip 1 each, Other, Daily amLODIPine (NORVASC) 5 mg, Oral, Daily clopidogrel (PLAVIX) 75 mg, Oral, Daily dapagliflozin (FARXIGA) 10 mg, Oral, Daily dicyclomine (BENTYL) 20 mg, Oral, 4 times daily PRN fluticasone (Flonase) 50 MCG/ACT nasal spray gabapentin (Neurontin) 600 MG tablet 1 am , 1 in the afternoon, and 2 at bedtime glipiZIDE (GLUCOTROL) 10 mg, Oral, 2 times daily before meals metFORMIN (GLUCOPHAGE) 1,000 mg, Oral, 2 times daily with meals metoprolol tartrate (LOPRESSOR) 50 mg, Oral, 2 times daily, Take 50 mg by mouth. ondansetron ODT (ZOFRAN-ODT) 4 mg, Oral, Every 6 hours PRN pantoprazole (PROTONIX) 40 mg, Oral, Daily before breakfast pioglitazone (ACTOS) 30 mg, Oral, Daily simvastatin (ZOCOR) 20 mg, Oral, Nightly, 1 po daily tamsulosin (FLOMAX) 0.8 mg, Oral, Nightly, Take 0.8 mg by mouth at bedtime Ventolin HFA 108 (90 Base) MCG/ACT inhaler 2 puffs, Inhalation, Every 4 hours PRN ALLERGIES: Allergies Allergen [...] not on file. OBJECTIVE: Visit Vitals BP 112/60 (BP Location: Left arm, Patient Position: Sitting, BP Cuff Size: Adult long) Pulse 96 Temp 98.5 F (Temporal) Resp 18 Ht 5' 7 Wt 183 lb 6.4 oz SpO2 96% BMI 28.72 kg/m Smoking Status Every Day BSA 1.98 m Physical Exam Vitals and nursing note reviewed. [...] heard. Pulmonary: Effort: Pulmonary effort is normal. No respiratory distress. Breath sounds: Normal breath sounds. No wheezing. Abdominal: General: Bowel sounds are normal. There is no distension. Palpations: Abdomen is soft. There is no mass. Tenderness: There is no abdominal tenderness. There is no guarding. Hernia: No hernia is present. Musculoskeletal: Cervical back: Neck supple. Right lower [...] file. Problem List Items Addressed This Visit BPH (benign prostatic hyperplasia) Relevant Medications tamsulosin (Flomax) 0.4 MG 24 hr capsule HTN (hypertension) (CMS/HCC) Relevant Medications amLODIPine (Norvasc) 5 MG tablet metoprolol tartrate (Lopressor) 50 MG tablet PAD (peripheral artery disease) (CMS/HCC) (Chronic) Relevant Medications clopidogrel (Plavix) 75 MG tablet metoprolol tartrate (Lopressor) 50 MG tablet simvastatin (Zocor) 20 MG tablet Diabetic polyneuropathy associated with type 2 diabetes mellitus (CMS/HCC) Relevant Medications gabapentin (Neurontin) 600 MG tablet Overweight (BMI 25.0-29.9) Acute gastritis without hemorrhage - Primary Symptoms improved with use of PPI, as well as carafate Will have him restart the pantoprazole Fu in 4 weeks Relevant Medications pantoprazole (ProtoNix) 40 MG EC tablet Other Visit Diagnoses Uncontrolled type 2 diabetes mellitus with hyperglycemia (CMS/HCC) Relevant Medications glipiZIDE (Glucotrol) 10 MG tablet metFORMIN (Glucophage) 1000 MG tablet pioglitazone (Actos) 30 MG tablet documented in this encounter [facility] 06-04-2024 History of Presen t illness Narrative Associated Problem(s): Tobacco user The patient has been advised of the risks of continued smoking: stroke, VA, all forms of cancer, lung disease, and . Options for quitting smoking include: cold turkey, hypnosis, acupuncture, nicotine replacement meds (gum, lozenges, and patches), Buproprion, and Varenicline. At this time pt is encouraged to evaluate their goals for wanting to quit smoking, and reach out to provider when ready to start this process Associated Problem(s): Type 2 diabetes mellitus with circulatory disorder, without long-term current use of insulin ([facility]) No changes in meds or doses Check labs Fu in 3 months Associated Problem(s): PAD (peripheral artery disease) ([facility]) Cont plavix, and statin Associated Problem(s): HTN (hypertension) ([facility]) No changes in med dose Associated Problem(s): Heart murmur Reveiwed NOHEMI Associated Problem(s): Diabetic polyneuropathy associated with type 2 diabetes mellitus ([facility]) Cont w memo Images from the original note were not included. ]p;o- Darinkendra Thacker is a 74 y.o. male presents with chief complaint of No chief complaint on file. HPI: Hypertension Pertinent negatives include no blurred vision. Hypertensive end-organ damage includes PVD. Diabetes He presents for his follow-up diabetic visit. He has type 2 diabetes mellitus. His disease course has been stable. There are no hypoglycemic associated symptoms. Pertinent negatives for hypoglycemia include no dizziness, nervousness/anxiousness, seizures or tremors. Associated symptoms include foot paresthesias. Pertinent negatives for diabetes include no blurred vision, no polydipsia, no polyphagia, no polyuria and no visual change. There are no hypoglycemic complications. Symptoms are stable. Diabetic complications include heart disease and PVD. Risk factors for coronary artery disease include diabetes mellitus, dyslipidemia, hypertension, male sex, sedentary lifestyle and tobacco exposure. He is following a generally healthy diet. He participates in exercise daily. His overall blood glucose range is 140-180 mg/dl. An SANTOS inhibitor/angiotensin II receptor shima is being taken. Eye exam is current. SUBJECTIVE: MEDICATIONS: Current Outpatient Medications Medication Instructions amLODIPine (NORVASC) 5 mg, Oral, Daily clopidogrel (PLAVIX) 75 mg, Oral, Daily RT dapagliflozin (FARXIGA) 10 mg, Oral, Daily fluticasone (Flonase) 50 MCG/ACT nasal spray gabapentin (Neurontin) 600 MG tablet 1 am , 1 in the afternoon, and 2 at bedtime glipiZIDE (GLUCOTROL) 10 mg, Oral, 2 times daily before meals glucose blood (Accu-Chek Nicolle Plus) test strip 1 each, Other, 3 times daily metFORMIN (GLUCOPHAGE) 1,000 mg, Oral, 2 times daily with meals metoprolol tartrate (LOPRESSOR) 50 mg, Oral, 2 times daily, Take 50 mg by mouth. pioglitazone (ACTOS) 30 mg, Oral, Daily simvastatin (Zocor) 20 MG tablet 1 pill daily tamsulosin (FLOMAX) 0.8 mg, Oral, Nightly Ventolin HFA 108 (90 Base) MCG/ACT inhaler 2 puffs, Inhalation, Every 4 hours PRN ALLERGIES: Allergies Allergen Reactions Ceclor [Cefaclor] Ciprofloxacin Unknown Dulaglutide Unknown Liraglutide Unknown Penicillin G Unknown REVIEW OF SYMPTOMS: Review of Systems Constitutional: Negative for activity change, appetite change and unexpected weight change. HENT: Negative for ear pain, nosebleeds, sneezing, trouble swallowing and voice change. Eyes: Negative for blurred vision, pain, discharge and visual disturbance. Respiratory: Negative for apnea, chest tightness and wheezing. Cardiovascular: Negative for leg swelling. Leg pain Gastrointestinal: Negative for abdominal distention, blood in [...] right Psoriasis (CMS/HCC) PVD (peripheral vascular disease) ([facility]) Retinopathy, diabetic, bilateral (CMS/HCC) Ringing in ears, [...] not on file. OBJECTIVE: Visit Vitals BP 130/62 (BP Location: Left arm, Patient Position: Sitting, BP Cuff Size: Adult long) Pulse 75 Temp 98.1 F (Temporal) Resp 18 Ht 5' 7 Wt 182 lb 12.8 oz SpO2 97% BMI 28.63 kg/m Smoking Status Every Day BSA 1.98 m Physical Exam Vitals and nursing note reviewed. [...] sounds: Normal breath sounds. No wheezing or rales. Abdominal: General: Bowel sounds are normal. Palpations: Abdomen is soft. Musculoskeletal: Cervical back: Neck supple. Lymphadenopathy: Cervical: No cervical adenopathy. Skin: General: Skin is warm and dry. Capillary Refill: Capillary refill takes 2 to 3 seconds. Neurological: General: No focal deficit present. Mental Status: He is alert. Psychiatric: Mood and Affect: Mood normal. Behavior: Behavior normal. Thought Content: Thought content normal. Judgment: Judgment normal. ASSESSMENT AND PLAN: No follow-ups on file. Problem List Items Addressed This Visit Psoriasis ([facility]) Relevant Medications triamcinolone (Kenalog) 0.1 % cream HTN (hypertension) ([facility]) - Primary No changes in med dose Relevant Medications amLODIPine (Norvasc) 5 MG tablet metoprolol tartrate (Lopressor) 50 MG tablet Other Relevant Orders Basic metabolic panel PAD (peripheral artery disease) ([facility]) (Chronic) Cont plavix, and statin Relevant Medications metoprolol tartrate (Lopressor) 50 MG tablet simvastatin (Zocor) 20 MG tablet Tobacco user The patient has been advised of the risks of continued smoking: stroke, VA, all forms of cancer, lung disease, and . Options for quitting smoking include: cold turkey, hypnosis, acupuncture, nicotine replacement meds (gum, lozenges, and patches), Buproprion, and Varenicline. At this time pt is encouraged to evaluate their goals for wanting to quit smoking, and reach out to provider when ready to start this process Heart murmur Reveiwed NOHEMI Diabetic polyneuropathy associated with type 2 diabetes mellitus ([facility]) Cont w memo Relevant Medications gabapentin (Neurontin) 600 MG tablet Overweight (BMI 25.0-29.9) Type 2 diabetes mellitus with circulatory disorder, without long-term current use of insulin ([facility]) No changes in meds or doses Check labs Fu in 3 months Relevant Orders Hemoglobin A1c Basic metabolic panel Other Visit Diagnoses Uncontrolled type 2 diabetes mellitus with hyperglycemia ([facility]) Relevant Medications dapagliflozin (Farxiga) 10 MG glipiZIDE (Glucotrol) 10 MG tablet metFORMIN (Glucophage) 1000 MG tablet pioglitazone (Actos) 30 MG tablet documented in this encounter [facility] 05-10-2024 History of Presen t illness Narrative Darinkendra Thacker Date of visit: 05/10/2024 Date of : 1950 Age: 74 y.o. Patient Active Problem List Diagnosis Sebaceous cyst Claudication ([facility]) Primary hypertension Pre-op exam Draining postoperative wound Obesity (BMI 30.0-34.9) Nonrheumatic aortic (valve) stenosis Palatal lesion Tinnitus Hearing loss Cigarette smoker motivated to quit Allergies Allergen Reactions Ciprofloxacin Hives Penicillins Trulicity [Dulaglutide] GI Disturbance Victoza 2-Bandar [Liraglutide] Current Outpatient Medications Medication Sig Dispense Refill amLODIPine (NORVASC) 5 mg tablet Take 1 tablet (5 mg total) by mouth in the morning. clopidogreL (PLAVIX) 75 mg tablet Take 1 tablet (75 mg total) by mouth in the morning. 90 tablet 3 cyanocobalamin 1000 MCG tablet Take 1 tablet (1,000 mcg total) by mouth in the morning. FARXIGA 10 mg tablet 1 mg in the morning. ferrous sulfate 325 (65 FE) mg tablet Take 1 tablet (325 mg total) by mouth daily with breakfast. fluticasone (FLONASE) 50 mcg/actuation nasal spray Administer 2 sprays into each nostril daily. 16 g 11 gabapentin (NEURONTIN) 300 mg capsule Take 400 mg by mouth in the morning and 400 mg at noon and 400 mg in the evening and 400 mg before bedtime. glipiZIDE (GLUCOTROL) 10 mg tablet Take 1 tablet (10 mg total) by mouth in the morning and 1 tablet (10 mg total) in the evening. Take before meals. metFORMIN (GLUCOPHAGE) 1000 mg tablet 1 tablet (1,000 mg total) in the morning and 1 tablet (1,000 mg total) in the evening. Take with meals. metoprolol tartrate (LOPRESSOR) 50 mg tablet Take 1 tablet (50 mg total) by mouth in the morning and 1 tablet (50 mg total) before bedtime. pioglitazone (ACTOS) 30 mg tablet Take 1 tablet (30 mg total) by mouth in the morning. simvastatin (ZOCOR) 20 mg tablet Take 1 tablet (20 mg total) by mouth once daily. tamsulosin (FLOMAX) 0.4 mg capsule,extended release 24hr Take 1 capsule (0.4 mg total) by mouth nightly. No current facility-administered medications for this visit. Chief Complaint Patient presents with Follow-up FOLLOW UP TESTING Hypertension History of Present Illness Patient is status post evaluation for his aortic stenosis he had a transthoracic echo that indicated that his mean aortic valve gradient was over 40 he subsequently had a NOHEMI which showed it was more moderate patient feels great however he has no chest pain or shortness breath he is limited by his leg rather than any type of chest pain shortness breath or lightheadedness. We had a discussion about this told him to keep an eye on his symptoms but at this point would hold off and just monitor the patient has this point and see me in about 6 months and go from there Past Medical History: Diagnosis Date Allergies Anxiety Back pain Benign prostatic hyperplasia Dental disease Depression Diabetes mellitus ([facility]) Diabetes mellitus type 2, controlled ([facility] Eczema HL (hearing loss) Hyperlipidemia Hypertension Injury of back Kidney stone Obesity PAD (peripheral artery disease) ([facility]) right foot pain Pneumonia Psoriasis No data recorded No data recorded No data recorded Past Surgical History: Procedure Laterality Date BYPASS ARTERY FEMORAL POPLITEAL WITH VEIN GRAFT RIGHT Right 11/10/2021 Performed by Omid Ricks MD at [facility] 12/02/2016 Dr. Li COLONOSCOPY 11/17/2006 Dr. Li HAND SURGERY Right MOUTH BIOPSY 08/10/2022 throat Right Leg Angiogram Right 09/30/2021 Performed by Omid Ricks MD at [facility] CARDIAC CATH LABS ROTATOR CUFF REPAIR Bilateral Dr. Ribeiro 2009; Dr. Vidal 2011 rt leg angio Right 08/24/2022 Performed by Omid Ricks MD at [facility] CARDIAC CATH LABS SKIN BIOPSY 2009 from back VASCULAR SURGERY 03/09/2021 stents rt. leg Family History Problem Relation Age of Onset Diabetes Mother Heart disease Father Breast cancer Sister Diabetes Brother No Known Problems Son Kidney disease Maternal Grandmother Diabetes Maternal Grandfather No Known Problems Paternal Grandmother No Known Problems Paternal Grandfather Anesthesia problems Neg Hx Social History Socioeconomic History Marital status: Spouse name: Not on file Number of children: Not on file Years of education: Not on file Highest education level: Not on file Occupational History Not on file Tobacco Use Smoking status: Every Day Current packs/day: 0.50 Average packs/day: 0.5 packs/day for 30.0 years (15.0 ttl pk-yrs) Types: Cigarettes Smokeless tobacco: Never Tobacco comments: reports down to 10 cigarettes a day 11/25/21 Vaping Use Vaping status: Never Used Substance and Sexual Activity Alcohol use: Not Currently Drug use: Never Sexual activity: Defer Other Topics Concern Coffee Not Asked Tea Not Asked Carbonated Beverages Not Asked Chocolate Not Asked Caffeine Use Yes Social History Narrative Not on file Social Determinants of Health Financial Resource Strain: Not on file Food Insecurity: No Food Insecurity (05/10/2024) Hunger Screening Food Insecurity - Worry: Never True Food Insecurity - Inability: Never True Transportation Needs: Not on file Physical Activity: Not on file Stress: Not on file Social Connections: Not on file Interpersonal Safety: Unknown (12/07/2023) Received from [facility] [place] Safety & Environment Fear of Current or Ex-Partner: Not on file Emotionally Abused: Not on file Physically Abused: Not on file Sexually Abused: Not on file Physically or Sexually Abused: Not on file Housing Instability: Not on file Review of Systems Review of Systems Constitutional: Positive for malaise/fatigue. HENT: Negative. Eyes: Negative. Respiratory: Negative. Hematologic/Lymphatic: Bruises/bleeds easily. Skin: Negative. Musculoskeletal: Negative. Gastrointestinal: Negative. Neurological: Positive for numbness. Psychiatric/Behavioral: Negative. Allergic/Immunologic: Positive for environmental allergies. CARDIOVASCULAR: Please review HPI. Physical Examination General appearance: Alert, oriented and cooperative. In no acute distress. Skin: Warm and dry to touch. Head: Normocephalic, without obvious abnormality, atraumatic. Ears, Nose, Mouth, Throat: Throat clear without erythema or exudate. Dentition intact. Eyes: Conjunctivae unremarkable, EOM intact. Neck: No JVD, No carotid bruit. Neck supple, trachea midline. Respiratory: Clear to auscultation bilaterally, no use of accessory muscles. Cardiovascular: RRR with normal S1 and S2 with murmur right upper sternal border in systole 3/6 Gastrointestinal: Soft, non-tender. Bowel sounds normal. Musculoskeletal: No peripheral edema. Neurologic: Oriented to time, person and place, affect appropriate. No focal/major motor defects noted. Psychiatric: Appropriate mood, memory and judgement. VITAL SIGNS: Ht 170.2 cm (5' 7 ) Wt 82.6 kg (182 lb) BMI 28.51 kg/m No orders of the defined types were placed in this encounter. There are no discontinued medications. IMPRESSIONS/PLAN There are no diagnoses linked to this encounter. 1. Moderate aortic stenosis by NOHEMI patient appears to be asymptomatic but is limited by his leg issues/claudication See the patient again in 6 months follow clinically and more than likely repeat transthoracic in about a year if he remains asymptomatic TODAYS ORDERS No orders of the defined types were placed in this encounter. FOLLOW UP No follow-ups on file. PCP: PAWEL MALDONADO Referring Physician: Tonya Dye APRN-FIRE EATER [address] [place] [address] documented in this encounter [facility] 05-10-2024 Instructions Dasha Logan [facility] - 05/10/2024 12:30 PM EDT Are You Ready To Kick The Habit? Free Tobacco Cessation Resources [facility] Tobacco Treatment Center Services [facility] Tobacco Treatment [facility] provide all employees with free tobacco cessation services that include: Counseling to understand nicotine addiction Education about medications that can help you successfully quit Assistance with developing a plan to quit Call to set up an individual appointment or find out when group classes will be held: [facility]: [phone] [facility]: [phone] [facility]: [phone] [facility]: [phone] Quit Smoking Action Plan and Resources [facility] offers an eight-week, online smoking cessation plan to all [facility] employees, regardless of whether [employer] is your medical insurance provider. Go to www.[email or web address] ness and click the Health Risk Assessment and Resources link to get started. In the Nzbhq4Lgcdfd menu, click Action Plans instead of Health Risk Assessment to access the Quit Smoking Action Plan. Additional smoking cessation resources are also available to all [facility] employees on the Bnqsp1Nlaban web page at www.[facility].[email or web address]/quit smoking. [employer] Tobacco Cessation Program If [employer] is your medical insurance provider, there are more free resources available to you, including: No copays or deductibles on local tobacco cessation counseling services to help you quit Prescription assistance for tobacco cessation medications to help you quit For details about the tobacco cessation program available to [employer] members, go to www.[facility].com (Search: Tobacco Cessation Program). [place] Tobacco Quit Line 3-029-ARHM-NOW ( ) is a toll-free, telephonic service that helps [place] residents quit smoking and using tobacco. It is staffed by experts who tailor a quit plan for you and provide you with advice. [place] Tobacco Quit Line 4-750-GBBL-NOW ( ) is a toll-free, telephonic service that helps [place] residents quit smoking and using tobacco. It is staffed by experts who tailor a quit plan for you and provide you with advice. Two weeks of nicotine replacement therapy may be provided at no charge, if needed. Additional Resources These national organizations also offer free information and resources to help you quit tobacco: [place] [employer]--www.cancer.org/healthy/ stayawayfromtobacco [place] [employer]--www.heart.org (Search: Quit Smoking) Centers for Disease Control and Prevention--www.cdc.gov/tobacco [place] [employer] Association--www.lungusa.org documented in this encounter [facility] 05-09-2024 Miscellaneous Notes Left message for patient to remind them to bring their most current medication list with them to their appointment. documented in this encounter [facility] 05-09-2024 Telephone encounter Note Left message for patient to remind them to bring their most current medication list with them to their appointment. [facility] 04-15-2024 Miscellaneous Notes Patient need a Refilled on his PLAVIX and this should be sent to [facility] they only sent him a 1 month supply and he need a 3 month supply he I almost out please contact patient when this is sent. Please advise Medication sent to pharmacy documented in this encounter [facility] 04-15-2024 Telephone encounter Note Patient need a Refilled on his PLAVIX and this should be sent to [facility] [employer] [facility] they only sent him a 1 month supply and he need a 3 month supply he I almost out please contact patient when this is sent. Please advise [facility] 04-15-2024 Telephone encounter Note Medication sent to pharmacy [facility] 03-29-2024 Miscellaneous Notes Received order from Carolyne at [facility] office. Patient scheduled for NOHEMI on 04/29/24 at 11 at [facility] with MMM. Notified Carolyne. documented in this encounter [facility] 03-29-2024 Telephone encounter Note Received order from Carolyne at [facility] office. Patient scheduled for NOHEMI on 04/29/24 at 11 at [facility] with MMM. Notified Carolyne. [facility] 03-29-2024 History of Presen t illness Narrative Darin Thacker Date of visit: 03/29/2024 Date of : 1950 Age: 74 y.o. Patient Active Problem List Diagnosis Sebaceous cyst Claudication ([facility]) Primary hypertension Pre-op exam Draining postoperative wound Obesity (BMI 30.0-34.9) Nonrheumatic aortic (valve) stenosis Palatal lesion Tinnitus Hearing loss Cigarette smoker motivated to quit Allergies Allergen Reactions Ciprofloxacin Hives Penicillins Trulicity [Dulaglutide] GI Disturbance Victoza 2-Bandar [Liraglutide] Current Outpatient Medications Medication Sig Dispense Refill amLODIPine (NORVASC) 5 mg tablet Take 1 tablet (5 mg total) by mouth in the morning. clopidogreL (PLAVIX) 75 mg tablet Take 1 tablet (75 mg total) by mouth in the morning. 90 tablet 2 cyanocobalamin 1000 MCG tablet Take 1 tablet (1,000 mcg total) by mouth in the morning. FARXIGA 10 mg tablet 1 mg in the morning. ferrous sulfate 325 (65 FE) mg tablet Take 1 tablet (325 mg total) by mouth daily with breakfast. fluticasone (FLONASE) 50 mcg/actuation nasal spray Administer 2 sprays into each nostril daily. 16 g 11 gabapentin (NEURONTIN) 300 mg capsule Take 400 mg by mouth in the morning and 400 mg at noon and 400 mg in the evening and 400 mg before bedtime. glipiZIDE (GLUCOTROL) 10 mg tablet Take 1 tablet (10 mg total) by mouth in the morning and 1 tablet (10 mg total) in the evening. Take before meals. metFORMIN (GLUCOPHAGE) 1000 mg tablet 1 tablet (1,000 mg total) in the morning and 1 tablet (1,000 mg total) in the evening. Take with meals. metoprolol tartrate (LOPRESSOR) 50 mg tablet Take 1 tablet (50 mg total) by mouth in the morning and 1 tablet (50 mg total) before bedtime. pioglitazone (ACTOS) 30 mg tablet Take 1 tablet (30 mg total) by mouth in the morning. simvastatin (ZOCOR) 20 mg tablet Take 1 tablet (20 mg total) by mouth once daily. tamsulosin (FLOMAX) 0.4 mg capsule,extended release 24hr Take 1 capsule (0.4 mg total) by mouth nightly. No current facility-administered medications for this visit. Chief Complaint Patient presents with Follow-up EARLY FU PER TONYA DYE ABN ECHO Hypertension History of Present Illness The patient is here for follow-up. He has a fair amount of limitations from his lower extremities which he relates to neuropathy. He also has peripheral vascular disease and follows with vascular. This prevents him from walking long distances. He generally denies any regular dyspnea but he also downplays some of his activity. No chest pain or pressure. He did have an event couple weeks ago where he went in and had some type of pleuritic discomfort in his lower lung field regions. He felt transiently short of breath. This all subsequently resolved. He had an echo done at outside facility showing a mean gradient across his aortic valve of 41 mmHg which was significantly elevated compared to several years ago. LV function is preserved. She does not have chest pain or pressure. Does not have dizziness or lightheadedness. Does not have presyncope or syncope of any sort. He continues to actively smoke. Past Medical History: Diagnosis Date Allergies Anxiety Back pain Benign prostatic hyperplasia Dental disease Depression Diabetes mellitus [place] Diabetes mellitus type 2, controlled ([facility] Eczema HL (hearing loss) Hyperlipidemia Hypertension Injury of back Kidney stone Obesity PAD (peripheral artery disease) ([facility]) right foot pain Pneumonia Psoriasis No data recorded No data recorded No data recorded Past Surgical History: Procedure Laterality Date BYPASS ARTERY FEMORAL POPLITEAL WITH VEIN GRAFT RIGHT Right 11/10/2021 Performed by Omid Ricks MD at [facility] 12/02/2016 Dr. Li COLONOSCOPY 11/17/2006 Dr. Li HAND SURGERY Right MOUTH BIOPSY 08/10/2022 throat Right Leg Angiogram Right 09/30/2021 Performed by Omid Ricks MD at [facility] CARDIAC CATH LABS ROTATOR CUFF REPAIR Bilateral Dr. Ribeiro 2009; Dr. Vidal 2011 rt leg angio Right 08/24/2022 Performed by Omid Ricks MD at [facility] CARDIAC CATH LABS SKIN BIOPSY 2009 from back VASCULAR SURGERY 03/09/2021 stents rt. leg Family History Problem Relation Age of Onset Diabetes Mother Heart disease Father Breast cancer Sister Diabetes Brother No Known Problems Son Kidney disease Maternal Grandmother Diabetes Maternal Grandfather No Known Problems Paternal Grandmother No Known Problems Paternal Grandfather Anesthesia problems Neg Hx Social History Socioeconomic History Marital status: Spouse name: Not on file Number of children: Not on file Years of education: Not on file Highest education level: Not on file Occupational History Not on file Tobacco Use Smoking status: Every Day Current packs/day: 0.50 Average packs/day: 0.5 packs/day for 30.0 years (15.0 ttl pk-yrs) Types: Cigarettes Smokeless tobacco: Never Tobacco comments: reports down to 10 cigarettes a day 11/25/21 Vaping Use Vaping status: Never Used Substance and Sexual Activity Alcohol use: Not Currently Drug use: Never Sexual activity: Defer Other Topics Concern Coffee Not Asked Tea Not Asked Carbonated Beverages Not Asked Chocolate Not Asked Caffeine Use Yes Social History Narrative Not on file Social Determinants of Health Financial Resource Strain: Not on file Food Insecurity: No Food Insecurity (03/29/2024) Hunger Screening Food Insecurity - Worry: Never True Food Insecurity - Inability: Never True Transportation Needs: Not on file Physical Activity: Not on file Stress: Not on file Social Connections: Not on file Interpersonal Safety: Unknown (12/07/2023) Received from [facility] Safety & Environment Fear of Current or Ex-Partner: Not on file Emotionally Abused: Not on file Physically Abused: Not on file Sexually Abused: Not on file Physically or Sexually Abused: Not on file Housing Instability: Not on file Review of Systems Review of Systems Constitutional: Negative. HENT: Negative. Eyes: Negative. Respiratory: Positive for cough, shortness of breath and wheezing. Hematologic/Lymphatic: Bruises/bleeds easily. Skin: Negative. Musculoskeletal: Positive for back pain and joint swelling. Neurological: Positive for loss of balance and numbness. Psychiatric/Behavioral: Negative. Allergic/Immunologic: Positive for environmental allergies. CARDIOVASCULAR: Please review HPI. Physical Examination General appearance: Alert, oriented and cooperative. In no acute distress. Skin: Warm and dry to touch. Head: Normocephalic, without obvious abnormality, atraumatic. Ears, Nose, Mouth, Throat: Throat clear without erythema or exudate. Dentition intact. Eyes: Conjunctivae unremarkable, EOM intact. Neck: Neck supple, trachea midline. Respiratory: Clear to auscultation bilaterally, no use of accessory muscles. Cardiovascular: RRR with normal S1 and S2 with 2/6 SHELLEY Gastrointestinal: Soft, non-tender. Bowel sounds normal. Musculoskeletal: No peripheral edema. Neurologic: Oriented to time, person and place, affect appropriate. No focal/major motor defects noted. Psychiatric: Appropriate mood, memory and judgement. VITAL SIGNS: BP 136/62 (BP Site: Left Arm, BP Postition: Sitting) Pulse 93 Ht 170.2 cm (5' 7 ) Wt 80.3 kg (177 lb) SpO2 96% BMI 27.72 kg/m No orders of the defined types were placed in this encounter. There are no discontinued medications. IMPRESSIONS/PLAN 1. Nonrheumatic aortic (valve) stenosis - Ambulatory referral to Cardiology (Non[facility]) - Echo NOHEMI; Future 2. Primary hypertension 3. 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 Nonrheumatic , severe on outside echocardiogram with a mean of 41 mmHg, recently performed after brief emergency room visit/admission Tobacco abuse PAD claudication status post right lower extremity bypass fem-pop 10/2021 Somewhat limited functional capacity that he relates to his leg discomfort and neuropathy Diabetes mellitus He has not had any sort of accelerating symptoms of any sort but his functional capacity is reduced. He chronically smokes and really does not push himself with his legs which also limit his functional capacity. I think it is reasonable to get a better look at his aortic stenosis. If his aortic stenosis looks clearly severe and extremely calcified, I would thinking about moving on valve replacement in the near future as there was rapid progression of gradients compared to his previous echo. If it does not look definitively severe, I would just follow him clinically him back regularly. Will get a transesophageal echocardiogram and go from there. If it looks like he is at high likelihood of needing a valve in the near future, will potentially refer him to structural clinic. He certainly could have significant CAD as well although he does not have definitive anginal symptoms. Follow up routinely regardless TODAYS ORDERS Orders Placed This Encounter Procedures Echo NOHEMI FOLLOW UP Return in about 3 months (around 06/29/2024). PCP: PAWEL MALDONADO Referring Physician: Tonya Dye APRN-OLI [address] [facility] [place] [address] documented in this encounter [facility] 03-29-2024 Instructions Dasha Logan [facility] - 03/29/2024 2:30 PM EDT Are You Ready To Kick The Habit? Free Tobacco Cessation Resources [facility] Tobacco Treatment Center Services [facility] Tobacco Treatment Centers provide all employees with free tobacco cessation services that include: Counseling to understand nicotine addiction Education about medications that can help you successfully quit Assistance with developing a plan to quit Call to set up an individual appointment or find out when group classes will be held: [facility]: [phone] [facility]: [phone] [facility]: [phone] [facility]: [phone] Quit Smoking Action Plan and Resources [facility] offers an eight-week, online smoking cessation plan to all [facility] employees, regardless of whether [employer] is your medical insurance provider. Go to [email or web address] and click the Health Risk Assessment and Resources link to get started. In the [employer] menu, click Action Plans instead of Health Risk Assessment to access the Quit Smoking Action Plan. Additional smoking cessation resources are also available to all [facility] employees on the [employer] web page at www.[employer]/quit smoking. [employer] Tobacco Cessation [facility] If [employer] is your medical insurance provider, there are more free resources available to you, including: No copays or deductibles on local tobacco cessation counseling services to help you quit Prescription assistance for tobacco cessation medications to help you quit For details about the tobacco cessation program available to [employer] members, go to www.[employer] (Search: Tobacco Cessation Program). [place] Tobacco Quit Line 7-940-RQLK-NOW ( ) is a toll-free, telephonic service that helps [place] residents quit smoking and using tobacco. It is staffed by experts who tailor a quit plan for you and provide you with advice. [place] Tobacco Quit Line 5-172-TZRU-NOW ( ) is a toll-free, telephonic service that helps [place] residents quit smoking and using tobacco. It is staffed by experts who tailor a quit plan for you and provide you with advice. Two weeks of nicotine replacement therapy may be provided at no charge, if needed. Additional Resources These national organizations also offer free information and resources to help you quit tobacco: [place] [employer]--www.cancer.org/healthy/ stayawayfromtobacco [place] Heart Association--www.heart.org (Search: Quit Smoking) Centers for Disease Control and Prevention--www.cdc.gov/tobacco [place] Lung Association--www.lungusa.org documented [facility] Miscellaneous Notes Called patient to remind them to bring their most current copy of their medication list with them to their appt. Patient verbalizes understanding. documented in this encounter [employer] 03-28-2024 Telephone encounter Note Called patient to remind them to bring their most current copy of their medication list with them to their appt. Patient verbalizes understanding. [facility] 02-08-2024 Evaluation + Plan note Associated Problem(s): Claudication (CMS-HCC) Arterial Duplex US RLE PVR Continue Plavix and statin. Smoking cessation. [facility] 02-08-2024 Miscellaneous Notes Associated Problem(s): Claudication (CMS-HCC) Arterial Duplex US RLE PVR Continue Plavix and statin. Smoking cessation. Addended by: YANELI MAURICIO on: 02/08/2024 11:45 AM Modules accepted: Orders documented in this encounter [facility] 02-08-2024 History of Presen t illness Narrative Images from the original note were not included. To: TONYA DYE, [employer]ER [employer] HPI: Darin Thacker is a 73 y.o. male witDiabetes PAD claudication status post right lower extremity bypass. This has been more than a year and a half. He is doing well. He is on Plavix and statin. Still smoking but he is Working on smoking cessation. I counseled him at length.. Review of Systems: Review of Systems Constitutional: Negative. HENT: Negative. Respiratory: Negative. Cardiovascular: Negative. Gastrointestinal: Negative. Endocrine: Negative. Genitourinary: Negative. Musculoskeletal: Negative. Skin: Negative. Neurological: Negative. Hematological: Negative. Medications: Current Outpatient Medications on File Prior to Visit Medication Sig Dispense Refill amLODIPine (NORVASC) 5 mg tablet Take 1 tablet (5 mg total) by mouth in the morning. clopidogreL (PLAVIX) 75 mg tablet Take 1 tablet (75 mg total) by mouth in the morning. 90 tablet 2 cyanocobalamin 1000 MCG tablet Take 1 tablet (1,000 mcg total) by mouth in the morning. FARXIGA 10 mg tablet 1 mg in the morning. ferrous sulfate 325 (65 FE) mg tablet Take 1 tablet (325 mg total) by mouth daily with breakfast. fluticasone (FLONASE) 50 mcg/actuation nasal spray Administer 2 sprays into each nostril daily. 16 g 11 gabapentin (NEURONTIN) 300 mg capsule Take 400 mg by mouth in the morning and 400 mg at noon and 400 mg in the evening and 400 mg before bedtime. glipiZIDE (GLUCOTROL) 10 mg tablet Take 1 tablet (10 mg total) by mouth in the morning and 1 tablet (10 mg total) in the evening. Take before meals. metFORMIN (GLUCOPHAGE) 1000 mg tablet 1 tablet (1,000 mg total) in the morning and 1 tablet (1,000 mg total) in the evening. Take with meals. metoprolol tartrate (LOPRESSOR) 50 mg tablet Take 1 tablet (50 mg total) by mouth in the morning and 1 tablet (50 mg total) before bedtime. pioglitazone (ACTOS) 30 mg tablet Take 1 tablet (30 mg total) by mouth in the morning. simvastatin (ZOCOR) 20 mg tablet Take 1 tablet (20 mg total) by mouth once daily. tamsulosin (FLOMAX) 0.4 mg capsule,extended release 24hr Take 1 capsule (0.4 mg total) by mouth nightly. No current facility-administered medications on file prior to visit. Past Medical History: Past Medical History: Diagnosis Date Allergies Anxiety Back pain Benign prostatic hyperplasia Dental disease Depression Diabetes mellitus ([facility]) Diabetes mellitus type 2, controlled [place] Eczema HL (hearing loss) Hyperlipidemia Hypertension Injury of back Kidney stone Obesity PAD (peripheral artery disease) ([facility]) right foot pain Pneumonia Psoriasis Past Surgical History: Past Surgical History: Procedure Laterality Date BYPASS ARTERY FEMORAL POPLITEAL WITH VEIN GRAFT RIGHT Right 11/10/2021 Performed by Omid Ricks MD at [facility] COL[facility] 12/02/2016 Dr. Li COLONOSCOPY 11/17/2006 Dr. Li HAND SURGERY Right MOUTH BIOPSY 08/10/2022 throat Right Leg Angiogram Right 09/30/2021 Performed by Omid Ricks MD at [facility] CARD[facility] CATH LABS ROTATOR CUFF REPAIR Bilateral Dr. Ribeiro 2009; Dr. Vidal 2011 rt leg angio Right 08/24/2022 Performed by Omid Ricks MD at [facility] CARDI[facility] CATH LABS SKIN BIOPSY 2009 from back VASCULAR SURGERY 03/09/2021 stents rt. leg Social and Family History: Social History Socioeconomic History Marital status: Spouse name: Not on file Number of children: Not on file Years of education: Not on file Highest education level: Not on file Occupational History Not on file Tobacco Use Smoking status: Every Day Current packs/day: 0.50 Average packs/day: 0.5 packs/day for 30.0 years (15.0 ttl pk-yrs) Types: Cigarettes Smokeless tobacco: Never Tobacco comments: reports down to 10 cigarettes a day 11/25/21 Vaping Use Vaping status: Never Used Substance and Sexual Activity Alcohol use: Not Currently Drug use: Never Sexual activity: Defer Other Topics Concern Coffee Not Asked Tea Not Asked Carbonated Beverages Not Asked Chocolate Not Asked Caffeine Use Yes Social History Narrative Not on file Social Determinants of Health Financial Resource Strain: Not on file Food Insecurity: No Food Insecurity (12/27/2022) Hunger Screening Food Insecurity - Worry: Never True Food Insecurity - Inability: Never True Transportation Needs: Not on file Physical Activity: Not on file Stress: Not on file Social Connections: Not on file Interpersonal Safety: Unknown (12/07/2023) Received from [facility] Safety [facility] Environment Fear of Current or Ex-Partner: Not on file Emotionally Abused: Not on file Physically Abused: Not on file Sexually Abused: Not on file Physically or Sexually Abused: Not on file Housing Instability: Not on file Family History Problem Relation Age of Onset Diabetes Mother Heart disease Father Breast cancer Sister Diabetes Brother No Known Problems Son Kidney disease Maternal Grandmother Diabetes Maternal Grandfather No Known Problems Paternal Grandmother No Known Problems Paternal Grandfather Anesthesia problems Neg Hx Recent Labs: Recent and relative labs were reviewed and interpreted and contributed to the assessment and plan below. Vitals: BP 130/80 (BP Site: Left Arm, BP Postition: Sitting, BP CUFF SIZE: L (13-17 inches)) Pulse 76 Ht 170.2 cm (5' 7 ) Wt 83 kg (183 lb) BMI 28.66 kg/m Body mass index is 28.66 kg/m . Physical Exam: Physical Exam Constitutional: Appearance: Normal appearance. HENT: Head: Normocephalic and atraumatic. Mouth/Throat: Mouth: Mucous membranes are moist. Eyes: Extraocular Movements: Extraocular movements intact. Pupils: Pupils are equal, round, and reactive to light. Cardiovascular: Rate and Rhythm: Normal rate and regular rhythm. Pulmonary: Effort: Pulmonary effort is normal. Breath sounds: Normal breath sounds. Abdominal: General: Abdomen is flat. Bowel sounds are normal. Palpations: Abdomen is soft. Musculoskeletal: General: Normal range of motion. Cervical back: Normal range of motion. Skin: General: Skin is warm and dry. Neurological: General: No focal deficit present. Mental Status: He is alert and oriented to person, place, and time. Mental status is at baseline. Psychiatric: Mood and Affect: Mood normal. Behavior: Behavior normal. Thought Content: Thought content normal. Judgment: Judgment normal. Recent testing: PVR Assessment and Plan: Problem List Claudication ([facility]) - Primary Overview Added automatically from request for surgery [id number] Current Assessment & Plan Arterial Duplex US RLE PVR Continue Plavix and statin. Smoking cessation. Cigarette smoker motivated to quit Overview Counseled on smoking cessation in length. For at least 4 minutes Darin was seen today for pad and claudication. Diagnoses and all orders for this visit: Claudication ([facility]) Cigarette smoker motivated to quit Yaneli Mauricio MD, TIFFANY, RPVI, FSVS, FACS [facility] [employer] This note was created with the assistance of a speech recognition program. While intending to generate a timely document that accurately reflects the content of the visit, no guarantee can be provided that every grammatical or spelling mistake has been or will be identified or corrected. Thank you for your understanding. documented in this encounter [facility] [employer] [facility] 02-08-2024 Instructions Yaneli Mauricio MD - 02/08/2024 10:00 AM EDT Are You Ready To Kick The Habit? Free Tobacco Cessation Resources [facility] Tobacco Treatment Center Services [facility] Tobacco Treatment Centers provide all employees with free tobacco cessation services that include: Counseling to understand nicotine addiction Education about medications that can help you successfully quit Assistance with developing a plan to quit Call to set up an individual appointment or find out when group classes will be held: [facility]: [phone] [facility]: [phone] [facility]: [phone] [facility]: [phone] Quit Smoking Action Plan and Resources [facility] offers an eight-week, online smoking cessation plan to all [facility] employees, regardless of whether [employer] is your medical insurance provider. Go to [email or web address] and click the Health Risk Assessment and Resources link to get started. In the [employer] menu, click Action Plans instead of Health Risk Assessment to access the Quit Smoking Action Plan. Additional smoking cessation resources are also available to all [facility] employees on the [employer] web page at www.[employer]/quit smoking. [employer] Tobacco Cessation [facility] If [employer] is your medical insurance provider, there are more free resources available to you, including: No copays or deductibles on local tobacco cessation counseling services to help you quit Prescription assistance for tobacco cessation medications to help you quit For details about the tobacco cessation program available to [employer] members, go to www.[employer] (Search: Tobacco Cessation Program). [place] Tobacco Quit Line 2-142-SQUH-NOW ( ) is a toll-free, telephonic service that helps [place] residents quit smoking and using tobacco. It is staffed by experts who tailor a quit plan for you and provide you with advice. [place] Tobacco Quit Line 7-124-HYPJ-NOW ( ) is a toll-free, telephonic service that helps [place] residents quit smoking and using tobacco. It is staffed by experts who tailor a quit plan for you and provide you with advice. Two weeks of nicotine replacement therapy may be provided at no charge, if needed. Additional Resources These national organizations also offer free information and resources to help you quit tobacco: [place] Cancer Society--www.cancer.org/healthy/ stayawayfromtobacco [place] Heart Association--www.heart.org (Search: Quit Smoking) Centers for Disease Control and Prevention--www.cdc.gov/tobacco [place] Lung Association--www.lungusa.org documented in this encounter [facility] [employer] 02-08-2024 Note Addended by: YANELI MAURICIO on: 02/08/2024 11:45 AM Modules accepted: Orders 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 He does not see a face worker.Eye exam is current. Hypertension This is a [...] SINUS WO IV CONTRAST BMI 29.0-29.9,adult Diabetes ([facility]) Relevant Orders Hemoglobin A1c HTN (hypertension) ([facility]) - Primary No changes needed in medication regimine Sebaceous cyst Still waiting on approval from [facility] to stop plavix for proceedure [employer] Relevant Orders CT SINUS WO IV CONTRAST documented in this encounter [facility] 10-24-2023 Evaluation note Encounter [...] Pain in right elbow (ICD-10 - M25.521) [employer] Other 12-29-2022 Hospital Discharge instructions Follow Up Care 10/13/2022 10:40:40 With:MANJIT WILKINS, JULIA Mays Address: [address] [place] [id number] When: only if needed [facility] [place] [id number] NoteOPERATIVE NOTE OPERATION DATE: 10/12/2022 PREOPERATIVE DIAGNOSIS: Sebaceous cyst right shoulder. POSTOPERATIVE DIAGNOSIS: Sebaceous cyst right shoulder. PROCEDURE: Excisional biopsy sebaceous cyst right shoulder. SURGEON: Bernadine Saravia M.D. ANESTHESIA: Local with 0.5% Marcaine plain. [...] good condition. CC: Tonya Dye, [facility]11-20-2022 NoteChief Complaint consultation for sebaceous cyst HPI [...] plan excisional biopsy under local anesthesia at [facility] once inflammation has decreased; approximately4 weeks; [...] Cipro (Itching) Victoza (Itchin (more content not included)...[facility]:Result Comment: Electronically Signed By: MANJIT WILKINS, Bernadine Calle\Date and Time Signed: 09/04/22 11:08 [id number] Evaluation note* Encounter Date Diagnosis Assessment Notes [...] of right lower extremity (ICD-10 - I82.491) [employer] Other 11-04-2021 Evaluation note* Encounter Date Diagnosis Assessment Notes Treatment Notes Treatment Clinical Notes Aug, Arthritis of right knee (ICD-10 - M17.11) Patient is doing well at this time. He will continue daily strengthening exercises and progress activity as tolerated [employer] Other 10-14-2021 Evaluation note* Encounter Date Diagnosis [...] MRI for further evaluation for meniscal tear. [employer] Other 05-25-2021 History general Narrative - Reported* Type Description Date Medical History type II diabetes Medical History HTN Medical History psoriasis Surgical History rotator cuff tear repair 011 Surgical History right leg angioplasty 03/09/21 Hospitalization History see surgical [employer] Other 05-25-2021 History general Narrative - Reported* Type Description Date Medical History type II diabetes Medical History HTN Medical History psoriasis Medical History DVT Surgical History rotator cuff tear repair 011 Surgical History right leg angioplasty 03/09/21 Hospitalization History see surgical [employer] Other Evaluation + Plan note No data available for this section General Surgery [facility] Evaluation noteNo InformationNort [employer] Other Evaluation noteNo assessment information available [facility] Work Phone: Evaluation note* Diagnosis Primary hypertension [...] vascular disease, unspecified documented in this encounter [facility] Healthcare[facility] note* Diagnosis Acute gastritis without hemorrhage, unspecified gastritis type- Primary Overweight (BMI 25.0-29.9) Overweight Primary hypertension (CMS/HCC) Unspecified essential hypertension Uncontrolled type 2 diabetes mellitus with hyperglycemia (CMS/HCC) PAD (peripheral artery disease) (CMS/HCC) Unspecified peripheral vascular disease Benign prostatic hyperplasia (BPH) with straining on urination Diabetic polyneuropathy associated with type 2 diabetes mellitus (CMS/HCC) documented in this encounter [facility] Healthcare[facility] note* Diagnosis 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- Primary Primary hypertension (CMS/HCC)- Primary Unspecified essential hypertension BMI 29.0-29.9,adult Type 2 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, without long- term current use of insulin, unspecified laterality, unspecified retinopathy severity ([facility]) Type 2 diabetes mellitus with diabetic neuropathy, without long-term current use of insulin ([facility]) Sebaceous cyst 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 [employer] Disturbances of sensation of smell and taste Peripheral vascular disease, unspecified (I73.9) Peripheral vascular disease, unspecified Diabetic polyneuropathy associated with type 2 diabetes mellitus ([facility])- Primary Urine retention Unspecified retention of urine PAD (peripheral artery disease) ([facility]) Unspecified peripheral vascular disease Benign prostatic hyperplasia (BPH) with straining on urination Uncontrolled type 2 diabetes mellitus with hyperglycemia ([facility]) Vitamin B12 deficiency Other B-complex deficiencies Iron deficiency anemia, unspecified iron deficiency anemia type Primary hypertension ([facility]) Unspecified essential hypertension Encounter for subsequent annual wellness visit (AWV) in Medicare patient- Primary Primary hypertension ([facility]) Unspecified essential hypertension Vitamin B12 deficiency Other B-complex deficiencies Uncontrolled type 2 diabetes mellitus with hyperglycemia ([facility]) Iron deficiency anemia, unspecified iron deficiency anemia type Mixed hyperlipidemia ([facility]) Mixed hyperlipidemia Screening for prostate cancer Special screening for malignant neoplasm of prostate Benign prostatic hyperplasia (BPH) with straining on urination Tobacco user Tobacco use disorder Overweight (BMI 25.0-29.9) Overweight Pneumonia due to infectious organism, unspecified laterality, unspecified part of lung- Primary Primary hypertension ([facility]) Unspecified essential hypertension Overweight (BMI 25.0-29.9) Overweight Tobacco user Tobacco use disorder Elevated brain natriuretic peptide (BNP) level Primary hypertension ([facility])- Primary Unspecified essential hypertension Diabetic polyneuropathy associated with type 2 diabetes mellitus ([facility]) Pneumonia due to infectious organism, unspecified laterality, unspecified part of lung PAD (peripheral artery disease) ([facility]) Unspecified peripheral vascular disease Nonrheumatic aortic valve stenosis Uncontrolled type 2 diabetes mellitus with hyperglycemia ([facility]) Overweight (BMI 25.0-29.9) Overweight Tobacco user Tobacco use disorder Primary hypertension ([facility])- Primary Unspecified essential hypertension Type 2 diabetes mellitus with diabetic peripheral angiopathy without gangrene, without long-term current use of insulin ([facility]) Uncontrolled type 2 diabetes mellitus with hyperglycemia ([facility]) PAD (peripheral artery disease) ([facility]) Unspecified peripheral vascular disease Diabetic polyneuropathy associated with type 2 diabetes mellitus ([facility]) Heart murmur Undiagnosed cardiac murmurs Overweight (BMI 25.0-29.9) Overweight Tobacco user Tobacco use disorder Psoriasis ([facility]) Other psoriasis Acute gastritis without hemorrhage, unspecified gastritis type- Primary Overweight (BMI 25.0-29.9) Overweight Primary hypertension ([facility]) Unspecified essential hypertension Uncontrolled type 2 diabetes mellitus with hyperglycemia ([facility]) PAD (peripheral artery disease) ([facility]) Unspecified peripheral vascular disease Benign prostatic hyperplasia (BPH) with straining on urination Diabetic polyneuropathy associated with type 2 diabetes mellitus ([facility]) Type 2 diabetes mellitus without complication, without long-term current use of insulin ([facility])- Primary Primary hypertension ([facility]) Unspecified essential hypertension PAD (peripheral artery disease) ([facility]) Unspecified peripheral vascular disease Overweight (BMI 25.0-29.9) Overweight Diabetic polyneuropathy associated with type 2 diabetes mellitus ([facility]) Tobacco user Tobacco use disorder Hemorrhage due to aspirin therapy Benign prostatic hyperplasia (BPH) with straining on urination Diverticulitis Diverticulitis of colon (without mention of hemorrhage) Bilateral carotid bruits documented in this encounter [facility] HealthcareEvaluation note* Diagnosis Primary hypertension ([facility])- Primary Unspecified essential hypertension Type 2 diabetes mellitus with diabetic peripheral angiopathy without gangrene, without long-term current use of insulin ([facility]) Uncontrolled type 2 diabetes mellitus with hyperglycemia ([facility]) PAD (peripheral artery disease) ([facility]) Unspecified peripheral vascular disease Diabetic polyneuropathy associated with type 2 diabetes mellitus ([facility]) Heart murmur Undiagnosed cardiac murmurs Overweight (BMI 25.0-29.9) Overweight Tobacco user Tobacco use disorder Psoriasis ([facility]) Other psoriasis documented in this encounter [facility] HealthcareEvaluation note* Diagnosis 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- Primary Primary hypertension ([facility])- Primary Unspecified essential hypertension BMI 29.0-29.9,adult Type 2 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, without long- term current use of insulin, unspecified laterality, unspecified retinopathy severity ([facility]) Type 2 diabetes mellitus with diabetic neuropathy, without long-term current use of insulin ([facility]) Sebaceous cyst 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 Ageusia Disturbances of sensation of smell and taste Peripheral vascular disease, unspecified (I73.9) Peripheral vascular disease, unspecified Diabetic polyneuropathy associated with type 2 diabetes mellitus ([facility])- Primary Urine retention Unspecified retention of urine PAD (peripheral artery disease) ([facility]) Unspecified peripheral vascular disease Benign prostatic hyperplasia (BPH) with straining on urination Uncontrolled type 2 diabetes mellitus with hyperglycemia ([facility]) Vitamin B12 deficiency Other B-complex deficiencies Iron deficiency anemia, unspecified iron deficiency anemia type Primary hypertension ([facility]) Unspecified essential hypertension Encounter for subsequent annual wellness visit (AWV) in Medicare patient- Primary Primary hypertension ([facility]) Unspecified essential hypertension Vitamin B12 deficiency Other B-complex deficiencies Uncontrolled type 2 diabetes mellitus with hyperglycemia ([facility]) Iron deficiency anemia, unspecified iron deficiency anemia type Mixed hyperlipidemia ([facility]) Mixed hyperlipidemia Screening for prostate cancer Special screening for malignant neoplasm of prostate Benign prostatic hyperplasia (BPH) with straining on urination Tobacco user Tobacco use disorder Overweight (BMI 25.0-29.9) Overweight Pneumonia due to infectious organism, unspecified laterality, unspecified part of lung- Primary Primary hypertension ([facility]) Unspecified essential hypertension Overweight (BMI 25.0-29.9) Overweight Tobacco user Tobacco use disorder Elevated brain natriuretic peptide (BNP) level Primary hypertension ([facility])- Primary Unspecified essential hypertension Diabetic polyneuropathy associated with type 2 diabetes mellitus ([facility]) Pneumonia due to infectious organism, unspecified laterality, unspecified part of lung PAD (peripheral artery disease) ([facility]) Unspecified peripheral vascular disease Nonrheumatic aortic valve stenosis Uncontrolled type 2 diabetes mellitus with hyperglycemia ([facility]) Overweight (BMI 25.0-29.9) Overweight Tobacco user Tobacco use disorder Primary hypertension ([facility])- Primary Unspecified essential hypertension Type 2 diabetes mellitus with diabetic peripheral angiopathy without gangrene, without long-term current use of insulin ([facility]) Uncontrolled type 2 diabetes mellitus with hyperglycemia ([facility]) PAD (peripheral artery disease) ([facility]) Unspecified peripheral vascular disease Diabetic polyneuropathy associated with type 2 diabetes mellitus ([facility]) Heart murmur Undiagnosed cardiac murmurs Overweight (BMI 25.0-29.9) Overweight Tobacco user Tobacco use disorder Psoriasis ([facility]) Other psoriasis Acute gastritis without hemorrhage, unspecified gastritis type- Primary Overweight (BMI 25.0-29.9) Overweight Primary hypertension ([facility]) Unspecified essential hypertension Uncontrolled type 2 diabetes mellitus with hyperglycemia ([facility]) PAD (peripheral artery disease) ([facility]) Unspecified peripheral vascular disease Benign prostatic hyperplasia (BPH) with straining on urination Diabetic polyneuropathy associated with type 2 diabetes mellitus ([facility]) Type 2 diabetes mellitus without complication, without long-term current use of insulin ([facility])- Primary Primary hypertension ([facility]) Unspecified essential hypertension PAD (peripheral artery disease) ([facility]) Unspecified peripheral vascular disease Overweight (BMI 25.0-29.9) Overweight Diabetic polyneuropathy associated with type 2 diabetes mellitus ([facility]) Tobacco user Tobacco use disorder Hemorrhage due to aspirin therapy Benign prostatic hyperplasia (BPH) with straining on urination Diverticulitis Diverticulitis of colon (without mention of hemorrhage) Bilateral carotid bruits Uncontrolled type 2 diabetes mellitus with hyperglycemia ([facility])- Primary Type 2 diabetes mellitus with diabetic peripheral angiopathy without gangrene ([facility]) Type 2 diabetes mellitus with unspecified diabetic retinopathy without macular edema ([facility]) Heart failure, unspecified ([facility]) Heart failure, unspecified Type 2 diabetes mellitus with hyperglycemia ([facility]) Type 2 diabetes mellitus with diabetic polyneuropathy ([facility]) Primary hypertension ([facility]) Unspecified essential hypertension PAD (peripheral artery disease) ([facility]) Unspecified peripheral vascular disease Type 2 diabetes mellitus with diabetic peripheral angiopathy without gangrene, without long-term current use of insulin ([facility]) Overweight (BMI 25.0-29.9) Overweight Type 2 diabetes mellitus with hyperglycemia, without long-term current use of insulin ([facility]) Mixed hyperlipidemia ([facility]) Mixed hyperlipidemia Tobacco user Tobacco use disorder Allergic rhinitis, unspecified seasonality, unspecified trigger Diabetic polyneuropathy associated with type 2 diabetes mellitus ([facility]) Acute gastritis without hemorrhage, unspecified gastritis type documented in this encounter [facility] HealthcareEvaluation note* Diagnosis Claudication ([facility])- Primary Unspecified peripheral vascular disease Cigarette smoker motivated to quit documented in this encounter [facility]* Diagnosis Primary hypertension- Primary Unspecified essential hypertension Nonrheumatic aortic (valve) stenosis 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 documented in this [facility]* Diagnosis Primary hypertension- Primary Unspecified essential hypertension Nonrheumatic aortic (valve) stenosis documented in this [facility]* Diagnosis Claudication- Primary Unspecified peripheral vascular disease Cigarette smoker motivated to quit Moderate aortic valve stenosis- Primary Aortic valve disorders Mixed hyperlipidemia documented in this [facility]* Diagnosis 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- Primary Primary hypertension ([facility])- Primary Unspecified essential hypertension BMI 29.0-29.9,adult Type 2 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, without long- term current use of insulin, unspecified laterality, unspecified retinopathy severity ([facility]) Type 2 diabetes mellitus with diabetic neuropathy, without long-term current use of insulin ([facility]) Sebaceous cyst 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 Ageusia Disturbances of sensation of smell and taste Peripheral vascular disease, unspecified (I73.9) Peripheral vascular disease, unspecified Diabetic polyneuropathy associated with type 2 diabetes mellitus ([facility])- Primary Urine retention Unspecified retention of urine PAD (peripheral artery disease) ([facility]) Unspecified peripheral vascular disease Benign prostatic hyperplasia (BPH) with straining on urination Uncontrolled type 2 diabetes mellitus with hyperglycemia ([facility]) Vitamin B12 deficiency Other B-complex deficiencies Iron deficiency anemia, unspecified iron deficiency anemia type Primary hypertension ([facility]) Unspecified essential hypertension Encounter for subsequent annual wellness visit (AWV) in Medicare patient- Primary Primary hypertension ([facility]) Unspecified essential hypertension Vitamin B12 deficiency Other B-complex deficiencies Uncontrolled type 2 diabetes mellitus with hyperglycemia ([facility]) Iron deficiency anemia, unspecified iron deficiency anemia type Mixed hyperlipidemia ([facility]) Mixed hyperlipidemia Screening for prostate cancer Special screening for malignant neoplasm of prostate Benign prostatic hyperplasia (BPH) with straining on urination Tobacco user Tobacco use disorder Overweight (BMI 25.0-29.9) Overweight Pneumonia due to infectious organism, unspecified laterality, unspecified part of lung- Primary Primary hypertension ([facility]) Unspecified essential hypertension Overweight (BMI 25.0-29.9) Overweight Tobacco user Tobacco use disorder Elevated brain natriuretic peptide (BNP) level Primary hypertension ([facility])- Primary Unspecified essential hypertension Diabetic polyneuropathy associated with type 2 diabetes mellitus (CMS/HCC) Pneumonia due to infectious organism, unspecified laterality, unspecified part of lung PAD (peripheral artery disease) ([facility]) Unspecified peripheral vascular disease Nonrheumatic aortic valve stenosis Uncontrolled type 2 diabetes mellitus with hyperglycemia ([facility]) Overweight (BMI 25.0-29.9) Overweight Tobacco user Tobacco use disorder Primary hypertension ([facility])- Primary Unspecified essential hypertension Type 2 diabetes mellitus with diabetic peripheral angiopathy without gangrene, without long-term current use of insulin ([facility]) Uncontrolled type 2 diabetes mellitus with hyperglycemia ([facility]) PAD (peripheral artery disease) ([facility]) Unspecified peripheral vascular disease Diabetic polyneuropathy associated with type 2 diabetes mellitus ([facility]) Heart murmur Undiagnosed cardiac murmurs Overweight (BMI 25.0-29.9) Overweight Tobacco user Tobacco use disorder Psoriasis Other psoriasis Acute gastritis without hemorrhage, unspecified gastritis type- Primary Overweight (BMI 25.0-29.9) Overweight Primary hypertension ([facility]) Unspecified essential hypertension Uncontrolled type 2 diabetes mellitus with hyperglycemia ([facility]) PAD (peripheral artery disease) ([facility]) Unspecified peripheral vascular disease Benign prostatic hyperplasia (BPH) with straining on urination Diabetic polyneuropathy associated with type 2 diabetes mellitus ([facility]) Type 2 diabetes mellitus without complication, without long-term current use of insulin- Primary Primary hypertension ([facility]) Unspecified essential hypertension PAD (peripheral artery disease) ([facility]) Unspecified peripheral vascular disease Overweight (BMI 25.0-29.9) Overweight Diabetic polyneuropathy associated with type 2 diabetes mellitus ([facility]) Tobacco user Tobacco use disorder Hemorrhage due to aspirin therapy Benign prostatic hyperplasia (BPH) with straining on urination Diverticulitis Diverticulitis of colon (without mention of hemorrhage) Bilateral carotid bruits Uncontrolled type 2 diabetes mellitus with hyperglycemia ([facility])- Primary Type 2 diabetes mellitus with diabetic peripheral angiopathy without gangrene ([facility]) Type 2 diabetes mellitus with unspecified diabetic retinopathy without macular edema ([facility]) Heart failure, unspecified ([facility]) Heart failure, unspecified Type 2 diabetes mellitus with hyperglycemia ([facility]) Type 2 diabetes mellitus with diabetic polyneuropathy ([facility]) Primary hypertension ([facility]) Unspecified essential hypertension PAD (peripheral artery disease) ([facility]) Unspecified peripheral vascular disease Type 2 diabetes mellitus with diabetic peripheral angiopathy without gangrene, without long-term current use of insulin ([facility]) Overweight (BMI 25.0-29.9) Overweight Type 2 diabetes mellitus with hyperglycemia, without long-term current use of insulin ([facility]) Mixed hyperlipidemia ([facility]) Mixed hyperlipidemia Tobacco user Tobacco use disorder Allergic rhinitis, unspecified seasonality, unspecified trigger Diabetic polyneuropathy associated with type 2 diabetes mellitus ([facility]) Acute gastritis without hemorrhage, unspecified gastritis type Acute non-recurrent sinusitis of other sinus- Primary documented in this encounter [facility] HealthcareEvaluation note* Diagnosis Claudication- Primary Unspecified peripheral vascular disease Cigarette smoker motivated to quit PAD (peripheral artery disease)- Primary Unspecified peripheral vascular disease Claudication Unspecified peripheral vascular disease History of arterial bypass of lower extremity documented in this encounter [facility]* Diagnosis 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- Primary Primary hypertension ([facility])- Primary Unspecified essential hypertension BMI 29.0-29.9,adult Type 2 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, without long- term current use of insulin, unspecified laterality, unspecified retinopathy severity ([facility]) Type 2 diabetes mellitus with diabetic neuropathy, without long-term current use of insulin ([facility]) Sebaceous cyst 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 Ageusia Disturbances of sensation of smell and taste Peripheral vascular disease, unspecified (I73.9) Peripheral vascular disease, unspecified Diabetic polyneuropathy associated with type 2 diabetes mellitus ([facility])- Primary Urine retention Unspecified retention of urine PAD (peripheral artery disease) ([facility]) Unspecified peripheral vascular disease Benign prostatic hyperplasia (BPH) with straining on urination Uncontrolled type 2 diabetes mellitus with hyperglycemia ([facility]) Vitamin B12 deficiency Other B-complex deficiencies Iron deficiency anemia, unspecified iron deficiency anemia type Primary hypertension ([facility]) Unspecified essential hypertension Encounter for subsequent annual wellness visit (AWV) in Medicare patient- Primary Primary hypertension ([facility]) Unspecified essential hypertension Vitamin B12 deficiency Other B-complex deficiencies Uncontrolled type 2 diabetes mellitus with hyperglycemia ([facility]) Iron deficiency anemia, unspecified iron deficiency anemia type Mixed hyperlipidemia ([facility]) Mixed hyperlipidemia Screening for prostate cancer Special screening for malignant neoplasm of prostate Benign prostatic hyperplasia (BPH) with straining on urination Tobacco user Tobacco use disorder Overweight (BMI 25.0-29.9) Overweight Pneumonia due to infectious organism, unspecified laterality, unspecified part of lung- Primary Primary hypertension ([facility]) Unspecified essential hypertension Overweight (BMI 25.0-29.9) Overweight Tobacco user Tobacco use disorder Elevated brain natriuretic peptide (BNP) level Primary hypertension ([facility])- Primary Unspecified essential hypertension Diabetic polyneuropathy associated with type 2 diabetes mellitus ([facility]) Pneumonia due to infectious organism, unspecified laterality, unspecified part of lung PAD (peripheral artery disease) ([facility]) Unspecified peripheral vascular disease Nonrheumatic aortic valve stenosis Uncontrolled type 2 diabetes mellitus with hyperglycemia ([facility]) Overweight (BMI 25.0-29.9) Overweight Tobacco user Tobacco use disorder Primary hypertension ([facility])- Primary Unspecified essential hypertension Type 2 diabetes mellitus with diabetic peripheral angiopathy without gangrene, without long-term current use of insulin ([facility]) Uncontrolled type 2 diabetes mellitus with hyperglycemia ([facility]) PAD (peripheral artery disease) ([facility]) Unspecified peripheral vascular disease Diabetic polyneuropathy associated with type 2 diabetes mellitus ([facility]) Heart murmur Undiagnosed cardiac murmurs Overweight (BMI 25.0-29.9) Overweight Tobacco user Tobacco use disorder Psoriasis Other psoriasis Acute gastritis without hemorrhage, unspecified gastritis type- Primary Overweight (BMI 25.0-29.9) Overweight Primary hypertension ([facility]) Unspecified essential hypertension Uncontrolled type 2 diabetes mellitus with hyperglycemia ([facility]) PAD (peripheral artery disease) ([facility]) Unspecified peripheral vascular disease Benign prostatic hyperplasia (BPH) with straining on urination Diabetic polyneuropathy associated with type 2 diabetes mellitus ([facility]) Type 2 diabetes mellitus without complication, without long-term current use of insulin- Primary Primary hypertension ([facility]) Unspecified essential hypertension PAD (peripheral artery disease) ([facility]) Unspecified peripheral vascular disease Overweight (BMI 25.0-29.9) Overweight Diabetic polyneuropathy associated with type 2 diabetes mellitus ([facility]) Tobacco user Tobacco use disorder Hemorrhage due to aspirin therapy Benign prostatic hyperplasia (BPH) with straining on urination Diverticulitis Diverticulitis of colon (without mention of hemorrhage) Bilateral carotid bruits Uncontrolled type 2 diabetes mellitus with hyperglycemia ([facility])- Primary Type 2 diabetes mellitus with diabetic peripheral angiopathy without gangrene ([facility]) Type 2 diabetes mellitus with unspecified diabetic retinopathy without macular edema ([facility]) Heart failure, unspecified ([facility]) Heart failure, unspecified Type 2 diabetes mellitus with hyperglycemia ([facility]) Type 2 diabetes mellitus with diabetic polyneuropathy ([facility] Primary hypertension ([facility] Unspecified essential hypertension PAD (peripheral artery disease) ([facility]) Unspecified peripheral vascular disease Type 2 diabetes mellitus with diabetic peripheral angiopathy without gangrene, without long-term current use of insulin ([facility]) Overweight (BMI 25.0-29.9) Overweight Type 2 diabetes mellitus with hyperglycemia, without long-term current use of insulin ([facility]) Mixed hyperlipidemia ([facility]) Mixed hyperlipidemia Tobacco user Tobacco use disorder Allergic rhinitis, unspecified seasonality, unspecified trigger Diabetic polyneuropathy associated with type 2 diabetes mellitus ([facility]) Acute gastritis without hemorrhage, unspecified gastritis type Primary hypertension ([facility]) Unspecified essential hypertension Allergic rhinitis, unspecified seasonality, unspecified trigger Diabetic polyneuropathy associated with type 2 diabetes mellitus ([facility]) Uncontrolled type 2 diabetes mellitus with hyperglycemia ([facility]) PAD (peripheral artery disease) ([facility]) Unspecified peripheral vascular disease Acute gastritis without hemorrhage, unspecified gastritis type documented in this encounter [facility] HealthcareEvaluation note* Diagnosis 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- Primary Primary hypertension ([facility])- Primary Unspecified essential hypertension BMI 29.0-29.9,adult Type 2 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, without long- term current use of insulin, unspecified laterality, unspecified retinopathy severity ([facility]) Type 2 diabetes mellitus with diabetic neuropathy, without long-term current use of insulin ([facility]) Sebaceous cyst 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 Ageusia Disturbances of sensation of smell and taste Peripheral vascular disease, unspecified (I73.9) Peripheral vascular disease, unspecified Diabetic polyneuropathy associated with type 2 diabetes mellitus ([facility])- Primary Urine retention Unspecified retention of urine PAD (peripheral artery disease) ([facility]) Unspecified peripheral vascular disease Benign prostatic hyperplasia (BPH) with straining on urination Uncontrolled type 2 diabetes mellitus with hyperglycemia ([facility]) Vitamin B12 deficiency Other B-complex deficiencies Iron deficiency anemia, unspecified iron deficiency anemia type Primary hypertension ([facility]) Unspecified essential hypertension Encounter for subsequent annual wellness visit (AWV) in Medicare patient- Primary Primary hypertension ([facility]) Unspecified essential hypertension Vitamin B12 deficiency Other B-complex deficiencies Uncontrolled type 2 diabetes mellitus with hyperglycemia ([facility]) Iron deficiency anemia, unspecified iron deficiency anemia type Mixed hyperlipidemia ([facility]) Mixed hyperlipidemia Screening for prostate cancer Special screening for malignant neoplasm of prostate Benign prostatic hyperplasia (BPH) with straining on urination Tobacco user Tobacco use disorder Overweight (BMI 25.0-29.9) Overweight Pneumonia due to infectious organism, unspecified laterality, unspecified part of lung- Primary Primary hypertension ([facility]) Unspecified essential hypertension Overweight (BMI 25.0-29.9) Overweight Tobacco user Tobacco use disorder Elevated brain natriuretic peptide (BNP) level Primary hypertension ([facility])- Primary Unspecified essential hypertension Diabetic polyneuropathy associated with type 2 diabetes mellitus ([facility]) Pneumonia due to infectious organism, unspecified laterality, unspecified part of lung PAD (peripheral artery disease) ([facility]) Unspecified peripheral vascular disease Nonrheumatic aortic valve stenosis Uncontrolled type 2 diabetes mellitus with hyperglycemia ([facility]) Overweight (BMI 25.0-29.9) Overweight Tobacco user Tobacco use disorder Primary hypertension ([facility])- Primary Unspecified essential hypertension Type 2 diabetes mellitus with diabetic peripheral angiopathy without gangrene, without long-term current use of insulin ([facility]) Uncontrolled type 2 diabetes mellitus with hyperglycemia ([facility]) PAD (peripheral artery disease) ([facility]) Unspecified peripheral vascular disease Diabetic polyneuropathy associated with type 2 diabetes mellitus ([facility]) Heart murmur Undiagnosed cardiac murmurs Overweight (BMI 25.0-29.9) Overweight Tobacco user Tobacco use disorder Psoriasis Other psoriasis Acute gastritis without hemorrhage, unspecified gastritis type- Primary Overweight (BMI 25.0-29.9) Overweight Primary hypertension ([facility]) Unspecified essential hypertension Uncontrolled type 2 diabetes mellitus with hyperglycemia ([facility]) PAD (peripheral artery disease) ([facility]) Unspecified peripheral vascular disease Benign prostatic hyperplasia (BPH) with straining on urination Diabetic polyneuropathy associated with type 2 diabetes mellitus ([facility]) Type 2 diabetes mellitus without complication, without long-term current use of insulin- Primary Primary hypertension ([facility]) Unspecified essential hypertension PAD (peripheral artery disease) ([facility]) Unspecified peripheral vascular disease Overweight (BMI 25.0-29.9) Overweight Diabetic polyneuropathy associated with type 2 diabetes mellitus (CMS/HCC) Tobacco user Tobacco use disorder Hemorrhage due to aspirin therapy Benign prostatic hyperplasia (BPH) with straining on urination Diverticulitis Diverticulitis of colon (without mention of hemorrhage) Bilateral carotid bruits Uncontrolled type 2 diabetes mellitus with hyperglycemia ([facility])- Primary Type 2 diabetes mellitus with diabetic peripheral angiopathy without gangrene ([facility]) Type 2 diabetes mellitus with unspecified diabetic retinopathy without macular edema ([facility]) Heart failure, unspecified ([facility]) Heart failure, unspecified Type 2 diabetes mellitus with hyperglycemia ([facility]) Type 2 diabetes mellitus with diabetic polyneuropathy ([facility]) Primary hypertension ([facility]) Unspecified essential hypertension PAD (peripheral artery disease) ([facility]) Unspecified peripheral vascular disease Type 2 diabetes mellitus with diabetic peripheral angiopathy without gangrene, without long-term current use of insulin ([facility]) Overweight (BMI 25.0-29.9) Overweight Type 2 diabetes mellitus with hyperglycemia, without long-term current use of insulin ([facility]) Mixed hyperlipidemia ([facility]) Mixed hyperlipidemia Tobacco user Tobacco use disorder Allergic rhinitis, unspecified seasonality, unspecified trigger Diabetic polyneuropathy associated with type 2 diabetes mellitus ([facility]) Acute gastritis without hemorrhage, unspecified gastritis type Uncontrolled type 2 diabetes mellitus with hyperglycemia ([facility]) documented in this encounter [facility] HealthcareEvaluation note* Diagnosis 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- Primary Primary hypertension- Primary Unspecified essential hypertension BMI 29.0-29.9,adult Type 2 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, without long- term current use of insulin, unspecified laterality, unspecified retinopathy severity ([facility]) Type 2 diabetes mellitus with diabetic neuropathy, without long-term current use of insulin ([facility]) Sebaceous cyst 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 Ageusia Disturbances of sensation of smell and taste Peripheral vascular disease, unspecified (I73.9) Peripheral vascular disease, unspecified Diabetic polyneuropathy associated with type 2 diabetes mellitus (HCC)- Primary Urine retention Unspecified retention of urine PAD (peripheral artery disease) Unspecified peripheral vascular disease Benign prostatic hyperplasia (BPH) with straining on urination Uncontrolled type 2 diabetes mellitus with hyperglycemia ([facility]) Vitamin B12 deficiency Other B-complex deficiencies Iron deficiency anemia, unspecified iron deficiency anemia type Primary hypertension Unspecified essential hypertension Encounter for subsequent annual wellness visit (AWV) in Medicare patient- Primary Primary hypertension Unspecified essential hypertension Vitamin B12 deficiency Other B-complex deficiencies Uncontrolled type 2 diabetes mellitus with hyperglycemia (HCC) Iron deficiency anemia, unspecified iron deficiency anemia type Mixed hyperlipidemia Mixed hyperlipidemia Screening for prostate cancer Special screening for malignant neoplasm of prostate Benign prostatic hyperplasia (BPH) with straining on urination Tobacco user Tobacco use disorder Overweight (BMI 25.0-29.9) Overweight Pneumonia due to infectious organism, unspecified laterality, unspecified part of lung- Primary Primary hypertension Unspecified essential hypertension Overweight (BMI 25.0-29.9) Overweight Tobacco user Tobacco use disorder Elevated brain natriuretic peptide (BNP) level Primary hypertension- Primary Unspecified essential hypertension Diabetic polyneuropathy associated with type 2 diabetes mellitus (HCC) Pneumonia due to infectious organism, unspecified laterality, unspecified part of lung PAD (peripheral artery disease) Unspecified peripheral vascular disease Nonrheumatic aortic valve stenosis Uncontrolled type 2 diabetes mellitus with hyperglycemia (HCC) Overweight (BMI 25.0-29.9) Overweight Tobacco user Tobacco use disorder Primary hypertension- Primary Unspecified essential hypertension Type 2 diabetes mellitus with diabetic peripheral angiopathy without gangrene, without long-term current use of insulin (HCC) Uncontrolled type 2 diabetes mellitus with hyperglycemia (HCC) PAD (peripheral artery disease) Unspecified peripheral vascular disease Diabetic polyneuropathy associated with type 2 diabetes mellitus (HCC) Heart murmur Undiagnosed cardiac murmurs Overweight (BMI 25.0-29.9) Overweight Tobacco user Tobacco use disorder Psoriasis Other psoriasis Acute gastritis without hemorrhage, unspecified gastritis type- Primary Overweight (BMI 25.0-29.9) Overweight Primary hypertension Unspecified essential hypertension Uncontrolled type 2 diabetes mellitus with hyperglycemia (HCC) PAD (peripheral artery disease) Unspecified peripheral vascular disease Benign prostatic hyperplasia (BPH) with straining on urination Diabetic polyneuropathy associated with type 2 diabetes mellitus (HCC) Type 2 diabetes mellitus without complication, without long-term current use of insulin (HCC)- Primary Primary hypertension Unspecified essential hypertension PAD (peripheral artery disease) Unspecified peripheral vascular disease Overweight (BMI 25.0-29.9) Overweight Diabetic polyneuropathy associated with type 2 diabetes mellitus (HCC) Tobacco user Tobacco use disorder Hemorrhage due to aspirin therapy Benign prostatic hyperplasia (BPH) with straining on urination Diverticulitis Diverticulitis of colon (without mention of hemorrhage) Bilateral carotid bruits Uncontrolled type 2 diabetes mellitus with hyperglycemia (HCC)- Primary Type 2 diabetes mellitus with diabetic peripheral angiopathy without gangrene (HCC) Type 2 diabetes mellitus with unspecified diabetic retinopathy without macular edema (HCC) Heart failure, unspecified (HCC) Heart failure, unspecified Type 2 diabetes mellitus with hyperglycemia (HCC) Type 2 diabetes mellitus with diabetic polyneuropathy (HCC) Primary hypertension Unspecified essential hypertension PAD (peripheral artery disease) Unspecified peripheral vascular disease Type 2 diabetes mellitus with diabetic peripheral angiopathy without gangrene, without long-term current use of insulin (HCC) Overweight (BMI 25.0-29.9) Overweight Type 2 diabetes mellitus with hyperglycemia, without long-term current use of insulin (HCC) Mixed hyperlipidemia Mixed hyperlipidemia Tobacco user Tobacco use disorder Allergic rhinitis, unspecified seasonality, unspecified trigger Diabetic polyneuropathy associated with type 2 diabetes mellitus (HCC) Acute gastritis without hemorrhage, unspecified gastritis type Encounter for subsequent annual wellness visit (AWV) [...] or maintaining sleep documented in this encounter [facility] note* Diagnosis 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- Primary Primary hypertension- Primary Unspecified essential hypertension BMI 29.0-29.9,adult Type 2 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, without long- term current use of insulin, unspecified laterality, unspecified retinopathy severity (HCC) Type 2 diabetes mellitus with diabetic neuropathy, without long-term current use of insulin (HCC) Sebaceous cyst 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 Ageusia Disturbances of sensation of smell and taste Peripheral vascular disease, unspecified (I73.9) Peripheral vascular disease, unspecified Diabetic polyneuropathy associated with type 2 diabetes mellitus (HCC)- Primary Urine retention Unspecified retention of urine PAD (peripheral artery disease) Unspecified peripheral vascular disease Benign prostatic hyperplasia (BPH) with straining on urination Uncontrolled type 2 diabetes mellitus with hyperglycemia (HCC) Vitamin B12 deficiency Other B-complex deficiencies Iron deficiency anemia, unspecified iron deficiency anemia type Primary hypertension Unspecified essential hypertension Encounter for subsequent annual wellness visit (AWV) in Medicare patient- Primary Primary hypertension Unspecified essential hypertension Vitamin B12 deficiency Other B-complex deficiencies Uncontrolled type 2 diabetes mellitus with hyperglycemia (HCC) Iron deficiency anemia, unspecified iron deficiency anemia type Mixed hyperlipidemia Mixed hyperlipidemia Screening for prostate cancer Special screening for malignant neoplasm of prostate Benign prostatic hyperplasia (BPH) with straining on urination Tobacco user Tobacco use disorder Overweight (BMI 25.0-29.9) Overweight Pneumonia due to infectious organism, unspecified laterality, unspecified part of lung- Primary Primary hypertension Unspecified essential hypertension Overweight (BMI 25.0-29.9) Overweight Tobacco user Tobacco use disorder Elevated brain natriuretic peptide (BNP) level Primary hypertension- Primary Unspecified essential hypertension Diabetic polyneuropathy associated with type 2 diabetes mellitus (HCC) Pneumonia due to infectious organism, unspecified laterality, unspecified part of lung PAD (peripheral artery disease) Unspecified peripheral vascular disease Nonrheumatic aortic valve stenosis Uncontrolled type 2 diabetes mellitus with hyperglycemia (HCC) Overweight (BMI 25.0-29.9) Overweight Tobacco user Tobacco use disorder Primary hypertension- Primary Unspecified essential hypertension Type 2 diabetes mellitus with diabetic peripheral angiopathy without gangrene, without long-term current use of insulin (HCC) Uncontrolled type 2 diabetes mellitus with hyperglycemia (HCC) PAD (peripheral artery disease) Unspecified peripheral vascular disease Diabetic polyneuropathy associated with type 2 diabetes mellitus (HCC) Heart murmur Undiagnosed cardiac murmurs Overweight (BMI 25.0-29.9) Overweight Tobacco user Tobacco use disorder Psoriasis Other psoriasis Acute gastritis without hemorrhage, unspecified gastritis type- Primary Overweight (BMI 25.0-29.9) Overweight Primary hypertension Unspecified essential hypertension Uncontrolled type 2 diabetes mellitus with hyperglycemia (HCC) PAD (peripheral artery disease) Unspecified peripheral vascular disease Benign prostatic hyperplasia (BPH) with straining on urination Diabetic polyneuropathy associated with type 2 diabetes mellitus (HCC) Type 2 diabetes mellitus without complication, without long-term current use of insulin (HCC)- Primary Primary hypertension Unspecified essential hypertension PAD (peripheral artery disease) Unspecified peripheral vascular disease Overweight (BMI 25.0-29.9) Overweight Diabetic polyneuropathy associated with type 2 diabetes mellitus (HCC) Tobacco user Tobacco use disorder Hemorrhage due to aspirin therapy Benign prostatic hyperplasia (BPH) with straining on urination Diverticulitis Diverticulitis of colon (without mention of hemorrhage) Bilateral carotid bruits Uncontrolled type 2 diabetes mellitus with hyperglycemia (HCC)- Primary Type 2 diabetes mellitus with diabetic peripheral angiopathy without gangrene (HCC) Type 2 diabetes mellitus with unspecified diabetic retinopathy without macular edema (HCC) Heart failure, unspecified (HCC) Heart failure, unspecified Type 2 diabetes mellitus with hyperglycemia (HCC) Type 2 diabetes mellitus with diabetic polyneuropathy (HCC) Primary hypertension Unspecified essential hypertension PAD (peripheral artery disease) Unspecified peripheral vascular disease Type 2 diabetes mellitus with diabetic peripheral angiopathy without gangrene, without long-term current use of insulin (HCC) Overweight (BMI 25.0-29.9) Overweight Type 2 diabetes mellitus with hyperglycemia, without long-term current use of insulin (HCC) Mixed hyperlipidemia Mixed hyperlipidemia Tobacco user Tobacco use disorder Allergic rhinitis, unspecified seasonality, unspecified trigger Diabetic polyneuropathy associated with type 2 diabetes mellitus (HCC) Acute gastritis without hemorrhage, unspecified gastritis type Encounter for subsequent annual wellness visit (AWV) [...] Persistent disorder of initiating or maintaining sleep Abdominal pain, generalized- Primary Diverticulitis Diverticulitis of colon (without mention of hemorrhage) documented in this encounter [facility] HealthcareEvaluation note* Diagnosis 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- Primary Primary hypertension- Primary Unspecified essential hypertension BMI 29.0-29.9,adult Type 2 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, without long- term current use of insulin, unspecified laterality, unspecified retinopathy severity (HCC) Type 2 diabetes mellitus with diabetic neuropathy, without long-term current use of insulin (HCC) Sebaceous cyst 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 Ageusia Disturbances of sensation of smell and taste Peripheral vascular disease, unspecified (I73.9) Peripheral vascular disease, unspecified Diabetic polyneuropathy associated with type 2 diabetes mellitus (HCC)- Primary Urine retention Unspecified retention of urine PAD (peripheral artery disease) Unspecified peripheral vascular disease Benign prostatic hyperplasia (BPH) with straining on urination Uncontrolled type 2 diabetes mellitus with hyperglycemia (HCC) Vitamin B12 deficiency Other B-complex deficiencies Iron deficiency anemia, unspecified iron deficiency anemia type Primary hypertension Unspecified essential hypertension Encounter for subsequent annual wellness visit (AWV) in Medicare patient- Primary Primary hypertension Unspecified essential hypertension Vitamin B12 deficiency Other B-complex deficiencies Uncontrolled type 2 diabetes mellitus with hyperglycemia (HCC) Iron deficiency anemia, unspecified iron deficiency anemia type Mixed hyperlipidemia Mixed hyperlipidemia Screening for prostate cancer Special screening for malignant neoplasm of prostate Benign prostatic hyperplasia (BPH) with straining on urination Tobacco user Tobacco use disorder Overweight (BMI 25.0-29.9) Overweight Pneumonia due to infectious organism, unspecified laterality, unspecified part of lung- Primary Primary hypertension Unspecified essential hypertension Overweight (BMI 25.0-29.9) Overweight Tobacco user Tobacco use disorder Elevated brain natriuretic peptide (BNP) level Primary hypertension- Primary Unspecified essential hypertension Diabetic polyneuropathy associated with type 2 diabetes mellitus (HCC) Pneumonia due to infectious organism, unspecified laterality, unspecified part of lung PAD (peripheral artery disease) Unspecified peripheral vascular disease Nonrheumatic aortic valve stenosis Uncontrolled type 2 diabetes mellitus with hyperglycemia (HCC) Overweight (BMI 25.0-29.9) Overweight Tobacco user Tobacco use disorder Primary hypertension- Primary Unspecified essential hypertension Type 2 diabetes mellitus with diabetic peripheral angiopathy without gangrene, without long-term current use of insulin (HCC) Uncontrolled type 2 diabetes mellitus with hyperglycemia (HCC) PAD (peripheral artery disease) Unspecified peripheral vascular disease Diabetic polyneuropathy associated with type 2 diabetes mellitus (HCC) Heart murmur Undiagnosed cardiac murmurs Overweight (BMI 25.0-29.9) Overweight Tobacco user Tobacco use disorder Psoriasis Other psoriasis Acute gastritis without hemorrhage, unspecified gastritis type- Primary Overweight (BMI 25.0-29.9) Overweight Primary hypertension Unspecified essential hypertension Uncontrolled type 2 diabetes mellitus with hyperglycemia (HCC) PAD (peripheral artery disease) Unspecified peripheral vascular disease Benign prostatic hyperplasia (BPH) with straining on urination Diabetic polyneuropathy associated with type 2 diabetes mellitus (HCC) Type 2 diabetes mellitus without complication, without long-term current use of insulin (HCC)- Primary Primary hypertension Unspecified essential hypertension PAD (peripheral artery disease) Unspecified peripheral vascular disease Overweight (BMI 25.0-29.9) Overweight Diabetic polyneuropathy associated with type 2 diabetes mellitus (HCC) Tobacco user Tobacco use disorder Hemorrhage due to aspirin therapy Benign prostatic hyperplasia (BPH) with straining on urination Diverticulitis Diverticulitis of colon (without mention of hemorrhage) Bilateral carotid bruits Uncontrolled type 2 diabetes mellitus with hyperglycemia (HCC)- Primary Type 2 diabetes mellitus with diabetic peripheral angiopathy without gangrene (HCC) Type 2 diabetes mellitus with unspecified diabetic retinopathy without macular edema (HCC) Heart failure, unspecified (HCC) Heart failure, unspecified Type 2 diabetes mellitus with hyperglycemia (HCC) Type 2 diabetes mellitus with diabetic polyneuropathy (HCC) Primary hypertension Unspecified essential hypertension PAD (peripheral artery disease) Unspecified peripheral vascular disease Type 2 diabetes mellitus with diabetic peripheral angiopathy without gangrene, without long-term current use of insulin (HCC) Overweight (BMI 25.0-29.9) Overweight Type 2 diabetes mellitus with hyperglycemia, without long-term current use of insulin (HCC) Mixed hyperlipidemia Mixed hyperlipidemia Tobacco user Tobacco use disorder Allergic rhinitis, unspecified seasonality, unspecified trigger Diabetic polyneuropathy associated with type 2 diabetes mellitus (HCC) Acute gastritis without hemorrhage, unspecified gastritis type Encounter for subsequent annual wellness visit (AWV) [...] Persistent disorder of initiating or maintaining sleep Abdominal pain, generalized- Primary Diverticulitis Diverticulitis of colon (without mention of hemorrhage) RUQ pain- Primary Abdominal pain, right upper quadrant [facility] encounter [facility] No data available for this section General Surgery Aileen InstructionsNot on filedocumented in this encounter [facility] SystemInstructionsNot on filedocumented in [facility] encounter [facility] SystemInstructionsNot on filedocumented in this encounter [facility] System[facility]ructionsNot on filedocumented in this encounter [facility] SystemInstructionsNot on filedocumented in this encounter [facility] SystemProgress note No data available for this section [...] Referral Specialty Diagnoses / Procedures Referred By Contac t Referred To Contact Diagnoses Nonrheumatic aortic (valve) stenosis Procedures Echo NOHEMI Leah Salgado MD [address] [place] [address] Referral ID Status Reason Start Date Expiration Date V isits Requested Visits Authorized [id number] Pending Review 03/29/2024 03/29/2025 1 1 Specialty Diagnoses / Procedures Referred By Contac t Referred To Contact Diagnoses Claudication ([facility] Cigarette smoker motivated to quit Procedures Vas art duplex lwr single right Yaneli Mauricio MD [address], [address] [address] Phone: Referral ID Status Reason Start Date Expiration Date V isits Requested Visits Authorized [id number] Pending Review 02/08/2024 02/07/2025 1 1 Specialty Diagnoses / Procedures Referred By Contac t Referred To Contact Diagnoses Claudication ([facility]) Cigarette smoker motivated to quit Procedures Vas art doppler lwr bilat mult lev/PVR Yaneli Mauricio MD [address] [place] [address] Phone: Referral ID Status Reason Start Date Expiration Date V isits Requested Visits Authorized [id number] Pending Review 02/08/2024 02/07/2025 1 1 Specialty Diagnoses / Procedures Referred By Contac t Referred To Contact Diagnoses 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 [facility] Procedures CT SINUS WO IV CONTRAST Tonya Dye, SHIVAM [address] [place] [address] Referral ID Status Reason Start Date Expiration Date V isits Requested Visits Authorized [id number] Pending Review 11/29/2023 05/27/2024 1 1 Additional Source Comments (unrecognized sect ion and content) No Status Records FoundNo Status Records FoundNo Status Records FoundNo Status Records FoundNo Status Records FoundNo Status Records FoundNo Status Records FoundNo Status Records Found INFORMATION SOURCE (unrecogn ized section and content) DATE CREATED AUTHOR 11/08/2021 [facility] DATE CREATED AUTHOR AUTHOR'S ORGANIZ ATION 10/26/2022 [facility] DATE CREATED AUTHOR AUTHOR'S ORGANIZ ATION 02/05/2023 [facility] DATE CREATED AUTHOR AUTHOR'S ORGANIZ ATION 01/05/2024 [facility] DATE CREATED AUTHOR AUTHOR'S ORGANIZ ATION 05/03/2024 [facility] DATE CREATED AUTHOR AUTHOR'S ORGANIZ ATION 01/13/[address] [facility] DATE CREATED AUTHOR AUTHOR'S ORGANIZ ATION 02/22/2025 [facility] DATE CREATED AUTHOR AUTHOR'S ORGANIZ ATION 04/09/2025 [facility] dical Specialists EPIC REASON FOR VISIT (unrecogniz ed section and content) Reason Comments Diabetes Reason Comments PAD Claudication Reason Comments Follow-up EARLY FU PER TONYA FRANCO ABN ECHO Hypertension Specialty Diagnoses / Procedures Referred By Shaye francisco Referred To Contact Cardiology Diagnoses Nonrheumatic aortic (valve) stenosis [facility] [address] [place] [address] [facility] [address] [place] [address] Referral ID Status Reason Start Date Expiration Date Visits Requested Visits Authorized [id number] Pending Review Specialty Services Required 03/27/2024 03/27/2025 1 1 Reason Comments Follow-up FOLLOW UP TESTING Hypertension Reason Comments Follow-up EST PT F/U NO TESTS -L/S TMP Hypertension Reason Comments Medicare Annual Wellness Visit Initial Reason Comments Abdominal Pain Back Pain Patient Care team informatio n (unrecognized section and content) Team Status: Active Member Role Status Dates Tonya Dye Primary Care Provider Active Team Status: Inactive Member Role Status Dates Tonya Dye Primary Care Provider Active Ava Luis MD Attending Provider Active Laboratory Geneticist Relationship Specialty Start Date End Date Mumtaz Jensen MD [address] [place] [address] PCP - General Family Medicine 11/28/23 Tonya Dye NP [address] [place] [address] Referring Physician Nurse Practitioner 03/09/23 Laboratory Geneticist Relationship Specialty Start Date End Date Mumtaz Jensen MD [address] [place] [address] PCP - General Family Medicine 11/28/23 Tonya Dye NP [address] [place] [address] Referring Physician Nurse Practitioner 03/09/23 Laboratory Geneticist Relationship Specialty Start Date End Date Mumtaz Jensen MD [address] [place] [address] PCP - General Family Medicine 11/28/23 Tonya Dye NP Referring Physician Nurse Practitioner 03/09/23 Laboratory Geneticist Relationship Specialty Start Date End Date Mumtaz Jensen MD [address] [place] [address] PCP - General Family Medicine 11/28/23 Tonya Dye NP Referring Physician Nurse Practitioner 03/09/23 Laboratory Geneticist Relationship Specialty Start Date End Date Mumtaz Jensen MD [address] [place] [address] PCP - General Family Medicine 11/28/23 Tonya Dye NP Referring Physician Nurse Practitioner 03/09/23 Laboratory Geneticist Relationship Specialty Start Date End Date Mumtaz Jensen MD [address] [place] [address] PCP - General Family Medicine 11/28/23 Tonya Dye NP Referring Physician Nurse Practitioner 03/09/23 Laboratory Geneticist Relationship Specialty Start Date End Date Mumtaz Jensen MD [address] [place] [address] PCP - General Family Medicine 11/28/23 Tonya Dye NP Referring Physician Nurse Practitioner 03/09/23 Laboratory Geneticist Relationship Specialty Start Date End Date Mumtaz Jensen MD [address] [place] [address] PCP - General Family Medicine 11/28/23 Tonya Dye NP Referring Physician Nurse Practitioner 03/09/23 Laboratory Geneticist Relationship Specialty Start Date End Date Mumtaz Jensen MD [address] [place] [address] PCP - General Family Medicine 11/28/23 Tonya Dye NP Referring Physician Nurse Practitioner 03/09/23 Laboratory Geneticist Relationship Specialty Start Date End Date Mumtaz Jensen MD [address] [place] [address] PCP - General Family Medicine 11/28/23 Tonya Dye NP Referring Physician Nurse Practitioner 03/09/23 Laboratory Geneticist Relationship Specialty Start Date End Date Mumtaz Jensen MD [address] [place] [address] PCP - General Family Medicine 11/28/23 Tonya Dye NP Referring Physician Nurse Practitioner 03/09/23 Laboratory Geneticist Relationship Specialty Start Date End Date Tonya Dye APRN-FIRE EATER [address] [place] [address] PCP - General Nurse Practitioner 09/07/21 Laboratory Geneticist Relationship Specialty Start Date End Date Tonya Dye MIXER PIGMENT-FIRE EATER [address] [place] [address] PCP - General Nurse Practitioner 09/07/21 Laboratory Geneticist Relationship Specialty Start Date End Date Tonya Dye [facility] [address] [place] [address] PCP - General Nurse Practitioner 09/07/21 Laboratory Geneticist Relationship Specialty Start Date End Date Tonya Dye [facility] [address] [place] [address] PCP - General Nurse Practitioner 09/07/21 Laboratory Geneticist Relationship Specialty Start Date End Date Tonya Dye [facility] [address] [place] [address] PCP - General Nurse Practitioner 09/07/21 Laboratory Geneticist Relationship Specialty Start Date End Date Tonya Dye [facility] [address] [place] [address] PCP - General Nurse Practitioner 09/07/21 Laboratory Geneticist Relationship Specialty Start Date End Date Tonya Dye [facility] [address] [place] [address] PCP - General Nurse Practitioner 09/07/21 Laboratory Geneticist Relationship Specialty Start Date End Date Tonya Dye [facility] PCP - General Nurse Practitioner 09/07/21 Laboratory Geneticist Relationship Specialty Start Date End Date Tonya Dye MIXER PIGMENT-FIRE EATER PCP - General Nurse Practitioner 09/07/21 Laboratory Geneticist Relationship Specialty Start Date End Date Tonya Dye APRN-FIRE EATER PCP - General Nurse Practitioner 09/07/21 Laboratory Geneticist Relationship Specialty Start Date End Date Mumtaz Jensen MD [address] [place] [address] PCP - General Family Medicine 11/28/23 Tonya Dye NP [address] [place] [address] PCP - ACO Reach 11/22/24 Tonya Dye NP Referring Physician Nurse Practitioner 03/09/23 Laboratory Geneticist Relationship Specialty Start Date End Date Mumtaz Jensen MD [address] [place] [address] PCP - General Family Medicine 11/28/23 Tonya Dye NP [address] [place] [address] PCP - ACO Reach 11/22/24 Tonya Dye NP Referring Physician Nurse Practitioner 03/09/23 Laboratory Geneticist Relationship Specialty Start Date End Date Tonya Dye, MIXER PIGMENT-FIRE EATER PCP - General Nurse Practitioner 09/07/21 Laboratory Geneticist Relationship Specialty Start Date End Date Mumtaz Jensen MD [address] [place] [address] PCP - General Family Medicine 11/28/23 Tonya Dye NP [address] [place] [address] PCP - ACO Reach 11/22/24 Tonya Dye NP Referring Physician Nurse Practitioner 03/09/23 Laboratory Geneticist Relationship Specialty Start Date End Date Mumtaz Jensen MD [address] [place] [address] PCP - General Family Medicine 11/28/23 Tonya Dye NP [address] [place] [address] PCP - ACO Reach 11/22/24 Tonya Dye NP Referring Physician Nurse Practitioner 03/09/23 Laboratory Geneticist Relationship Specialty Start Date End Date Mumtaz Jensen MD [address] [place] [address] PCP - General Family Medicine 11/28/23 Tonya Dye NP [address] [place] [address] PCP - ACO Reach 11/22/24 Tonya Dye NP Referring Physician Nurse Practitioner 03/09/23 Laboratory Geneticist Relationship Specialty Start Date End Date Mumtaz Jensen MD [address] [place] [address] PCP - General Family Medicine 11/28/23 Tonya Dye NP [address] [place] [address] PCP - ACO Reach 11/22/24 Tonya Dye NP Referring Physician Nurse Practitioner 03/09/23 Laboratory Geneticist Relationship Specialty Start Date End Date Mumtaz Jensen MD [address] [place] [address] PCP - General Family Medicine 11/28/23 Tonya Dye NP [address] [place] [address] PCP - ACO Reach 11/22/24 Tonya Dye NP Referring Physician Nurse Practitioner 03/09/23 Laboratory Geneticist Relationship Specialty Start Date End Date Mumtaz Jensen MD [address] [place] [address] PCP - General Family Medicine 11/28/23 Tonya Dye NP [address] [place] [address] PCP - ACO Reach 11/22/24 Tonya Dye NP Referring Physician Nurse Practitioner 03/09/23 Laboratory Geneticist Relationship Specialty Start Date End Date Mumtaz Jensen MD [address] [place] [address] PCP - General Family Medicine 11/28/23 Tonya Dye NP [address] [place] [address] PCP - ACO Reach 11/22/24 Tonya Dye NP Referring Physician Nurse Practitioner 03/09/23 Laboratory Geneticist Relationship Specialty Start Date End Date Mumtaz Jensen MD [address] [place] [address] PCP - General Family Medicine 11/28/23 Tonya Dye NP [address] [place] [address] PCP - ACO Reach 11/22/24 Tonya Dye NP Referring Physician Nurse Practitioner 03/09/23 Goals (unrecognized [...] BE BASED ON THE PRIMARY CLINICAL RECORDS. [facility] [employer] [facility]. provides no warranty or guarantee of the accuracy or completeness of information in this document.
--- OUTSIDE RECORDS SUMMARY | 2025-04-12 01:55 | XMS_ITS | Encounter Summary ---
Author Organization [facility] Address [address] [place] [address] Care Team Providers Care Ocular Care Technician Name Role Phone Tonya Dye SEAFOOD PROCESSOR Unavailable [phone] Mumtaz Jensen MD Primary Care Provider Tonya Dye NP Unavailable [phone] Encounter Details Date Type Department Care Team (Late st Contact Info) Description 08/22/2024 Clinisync Result Encounter [facility] External Department Unsolicited Tonya Dye NP [address] [place] [address] Social History Tobacco Use Types Packs/Day [...] 06/30/2025 1:00 PM EDT [facility] [address] [place] [address] Tonya Dye NP [address] [place] [address] 04/02/2026 11:00 AM EDT Office Visit [facility] [address] [place] [address] Tonya Dye NP [address] [place] [address] documented as of this encounter Procedures Procedure Name Priority Date/Time Associated Diagnosis Comments VASC US CAROTID ARTERY DUPLEX BILATERAL 08/22/2024 5:23 PM EST documented in this encounter Results * Vascular US carotid artery duplex bilateral (08/22/2024 5:23 PM EST) Anatomical Region Laterality Modality Neck Ultrasound 08/22/2024 5:23 PM EST Narrative 08/22/2024 5:26 [place] [address] Ultrasound Report Signed Patient: TERRI LOWE MR#: [id number] : 1950 Acct:[id number] Age/Sex: 74 / M ADM Date: 08/22/24 Loc: US Attending Dr: Tonya Dye NP Ordering Physician: Tonya Dye NP Date of Service: 08/22/24 Procedure(s): US carotid duplex BI Accession Number(s): [id number] cc: Tonya Dye NP [address] [address] Patient Name: TERRI LOWE MRN: [id number] date: 1950 Sex: M Assigned Patient Location: [place] Current Patient Location: [place] Accession/Order Number: [id number] Exam Date: 08/22/2024 14:05 Report Date: 08/22/2024 [...] standard protocol. ICA-CCA ratios are calculated with wireless sales representative peak-systolic velocities and recorded. Vertebral arteries [...] M.D. Signed By: 08/22/241725 DD/ 22 TD/TT: Miller Helper: Procedure Note Radiology, Radiologist, MD - 08/22/[address] [address] Ultrasound Report Signed Patient: TERRI LOWE R#: [id number] : 1950cct:[id number] Age/Sex: 74 / MADM Date: 08/22/24 Loc: US Attending Dr: Tonya Dye NP Ordering Physician: Tonya Dye NP Date of Service: 08/22/24 Procedure(s): US carotid duplex BI Accession Number(s): [id number] cc: Tonya Dye NP The [address] [address] Patient Name: TERRI LOWE MRN: [id number] date: 1950 Sex: M Assigned Patient Location: US Current Patient Location: US Accession/Order Number: [id number] Exam Date: 08/22/2024 14:05 Report Date: 08/22/2024 [...] standard protocol. ICA-CCA ratios are calculated with wireless sales representative peak-systolic velocities and recorded. Vertebral arteries [...] M.D. Signed By:08/22/24 1726 DD/ 22 TD/TT: Miller Helper: us Tonya Dye SEAFOOD PROCESSOR IMG US PROCEDURES Final Result documented in this encounter Visit Diagnoses Not on filedocumented in this encounter Additional Health Concerns Assessment Noted Time PHQ-9 Depression Total Score: 3 02/27/20 24 11:39 AM EDT documented as of this encounter Care Teams Ocular Care Technician Relationship Specialty Start Date End Date Mmutaz Jensen MD [address] [place] [address] PCP - General Family Medicine 11/28/23 Tonya Dye NP [address] [place] [address] PCP - ACO Reach 11/22/24 Tonya Dye NP Referring Physician Nurse Practitioner 03/09/23 documented as of this encounter
--- OUTSIDE RECORDS SUMMARY | 2025-04-12 01:55 | XMS_ITS | Encounter Summary ---
Author Organization [facility] Address [address] [place] [address] Care Team Providers Care Professional Bass Fisher Name Role Phone Tonya Dye NP Unavailable [phone] Mumtaz Jensen MD Primary Care Provider Tonya Dye NP Unavailable [phone] Encounter Details Date Type Department Care Team (Late st Contact Info) Description 07/08/2024 Orders Only [facility] [address] [place] [address] Tonya Dye NP [address] [place] [address] Social History Tobacco Use Types Packs/Day Years [...] 1:00 PM EDT Office Visit [facility] [address] [place] [address] Tonya Dye NP [address] [place] [address] 04/02/2026 11:00 AM EDT Office Visit [facility] [address] [place] [address] Tonya Dye NP [address] [place] [address] documented as of this encounter Procedures Procedure Name Priority Date/Time Associated Diagnosis Comments SCANNED LABS Routine 07/08/2024 1:55 PM EDT documented in this encounter Results * SCANNED LABS (07/08/2024 1:55 PM EDT) Tonya Dye GLOBAL MANAGER LAB CHG PERFORMABLES Final Resu lt documented in this encounter Visit Diagnoses Not on filedocumented in this encounter Additional Health Concerns Assessment Noted Time PHQ-9 Depression Total Score: 3 02/27/20 24 11:39 AM EDT documented as of this encounter Care Teams Professional Bass Fisher Relationship Specialty Start Date End Date Mumtaz Jensen MD [address] [place] [address] PCP - General Family Medicine 11/28/23 Tonya Dye NP [address] [place] [address] PCP - ACO Reach 11/22/24 Tonya Dye NP Referring Physician Nurse Practitioner 03/09/23 documented as of this encounter
--- OUTSIDE RECORDS SUMMARY | 2025-04-12 01:55 | XMS_ITS | Encounter Summary ---
Author Organization [facility] Address [address] [place] [address] Care Team Providers Care Neon Molder Name Role Phone Mumtaz Jensen MD Primary Care Provider [phone] Tonya Dye NP Unavailable [phone] Mumtaz Jensen MD Primary Care Provider [phone] Tonya Dye NP Unavailable [phone] Encounter Details Date Type Department Care Team (Late st Contact Info) Description 03/26/2023 Abstract [facility] [address] [facility] [address] [place] [address] Sky Serna, AGGIE 112 [facility] [address] [place] [address] Social History Tobacco Use Types Packs/Day Years [...] 06/30/2025 1:00 PM EDT [facility] [address] [place] [address] Tonya Dye, SHIVAM [address] [place] [address] 04/02/2026 11:00 AM EDT Office Visit [facility] [address] [place] [address] Tonya Dye, SHIVAM [address] [place] [address] documented as of this encounter Visit Diagnoses Not on filedocumented in this encounter Care Teams Neon Molder Relationship Specialty Start Date End Date Mumtaz Jensen MD PCP - General Family Medicine 10/16/22 11/27/23 Mumtaz Jensen MD [address] [place] [address] PCP - General Family Medicine 11/28/23 Tonya Dye NP [address] [place] [address] PCP - ACO Reach 11/22/24 Tonya Dye NP Referring Physician Nurse Practitioner 03/09/23 documented as of this encounter
--- OUTSIDE RECORDS SUMMARY | 2025-04-12 01:55 | XMS_ITS | Encounter Summary ---
Author Organization [facility] Address [address] [place] [address] Care Team Providers Care Stock Sheets Cleaner Inspector Name Role Phone Tonya Dye NP Unavailable [phone] Mumtaz Jensen MD Primary Care Provider Tonya Dye NP Unavailable [phone] Encounter Details Date Type Department Care Team (Late st Contact Info) Description 11/21/2024 Orders Only [facility] [address] [place] [address] Tonya Dye NP [address] [place] [address] Social History Tobacco Use Types Packs/Day Years [...] 06/30/2025 1:00 PM EDT Office Visit [facility] [address] [place] [address] Tonya Dye NP [address] [place] [address] 04/02/2026 11:00 AM EDT Office Visit [facility] [address] [place] [address] Tonya Dye NP [address] [place] [address] documented as of this encounter Procedures Procedure [...] documented as of this encounter Care Teams Stock Sheets Cleaner Inspector Relationship Specialty Start Date End Date Mumtaz Jensen MD [address] [place] [address] PCP - General Family Medicine 11/28/23 Tonya Dye NP [address] [place] [address] PCP - ACO Reach 11/22/24 Tonya Dye NP Referring Physician Nurse Practitioner 03/09/23 documented as of this encounter
--- OUTSIDE RECORDS SUMMARY | 2025-04-12 01:55 | XMS_ITS | Encounter Summary ---
Author Organization [facility] Address [address] [place] [address] Care Team Providers Care Frame Wirer Name Role Phone Mumtaz Jensen MD Primary Care Provider [phone] Tonya Dye NP Unavailable [phone] Mumtaz Jensen MD Primary Care Provider [phone] oTnya Dye NP Unavailable [phone] Encounter Details Date Type Department Care Team (Late st Contact Info) Description 05/22/2023 Abstract [facility] [address] [facility] [address] [place] [address] Sky Serna, AGGIE 112 [facility] [address] [place] [address] Social History Tobacco Use Types Packs/Day Years [...] [facility] [address] [place] [address] Tonya Dye, SHIVAM [address] [place] [address] 04/02/2026 11:00 AM EDT Office Visit [facility] [address] [place] [address] Tonya Dye NP [address] [place] [address] documented as of this encounter Visit Diagnoses Not on filedocumented in this encounter Care Teams Frame Wirer Relationship Specialty Start Date End Date Mumtaz Jensen MD PCP - General Family Medicine 10/16/22 11/27/23 Mumtaz Jensen MD [address] [place] [address] PCP - General Family Medicine 11/28/23 Tonya Dye NP [address] [place] [address] PCP - ACO Reach 11/22/24 Tonya Dye NP Referring Physician Nurse Practitioner 03/09/23 documented as of this encounter
--- OUTSIDE RECORDS SUMMARY | 2025-04-12 01:55 | XMS_ITS | Clinical Summary ---
Author Organization [facility] Address [address] [place] [address] Care Team Providers Care Trouble Lineman Name Role Phone Unavailable Primary Care Provider [...] age to complete this topic Insurance [place] [id number]
--- NOTE | 2025-04-12 02:18 | ED.ABDPAIN1 ---
HPI - Abdominal Pain General Chief Complaint: Abdominal Pain Stated Complaint: abd pain Time Seen by Provider: 04/12/25 02:02 Source: patient Mode of arrival: walk-in History of Present Illness HPI narrative: cc - abd pain Started 6 weeks ago. Mostly across the upper abdomen but for the last 2 days has been lower abd as well. He began vomiting tonight. he saw his PCP - Tonya Vela ea few days ago and had urine and blood testing. He was supposed to take antibiotics - bactrim and flagyl -, which were prescribed, but did not start them yet. He denies any urinary symptoms. No blood in urine or stool. Related Data Home Medications ?Medication ?Instructions ?Recorded ?Confirmed clopidogrel 75 mg tablet 75 mg PO DAILY 01/25/24 04/12/25 dapagliflozin propanediol 10 mg 10 mg PO DAILY 01/25/24 04/12/25 tablet (Farxiga) gabapentin 400 mg capsule 600 mg PO QID 01/25/24 04/12/25 glipizide 10 mg tablet 10 mg PO BID 01/25/24 04/12/25 metformin 1,000 mg tablet 1,000 mg PO BID 01/25/24 04/12/25 metoprolol tartrate 50 mg tablet 50 mg PO BID 01/25/24 04/12/25 pioglitazone 45 mg tablet 45 mg PO DAILY 01/25/24 04/12/25 simvastatin 20 mg tablet 20 mg PO DAILY 01/25/24 04/12/25 tamsulosin 0.4 mg capsule 0.4 mg PO DAILY 01/25/24 04/12/25 amlodipine 5 mg tablet 5 mg PO DAILY 04/12/25 04/12/25 metronidazole 500 mg tablet 500 mg PO Q8H 04/12/25 04/12/25 sulfamethoxazole 800 1 tab PO Q12H 04/12/25 04/12/25 mg-trimethoprim 160 mg tablet trazodone 50 mg tablet 50 mg PO DAILY 04/12/25 04/12/25 Previous Rx's ?Medication ?Instructions ?Recorded azithromycin 250 mg tablet 250 mg PO DAILY 4 days #4 tabs 03/12/24 prednisone 20 mg tablet 20 mg PO BID 5 days #10 tabs 03/12/24 esomeprazole magnesium 40 mg 40 mg PO DAILY 28 days #28 caps 04/12/25 capsule,delayed release (Nexium) sucralfate 1 gram tablet (Carafate) 1 g PO Q6H 4 weeks #112 tabs 04/12/25 Allergies Allergy/AdvReac Type Severity Reaction Status Date / Time ciprofloxacin (From Cipro) Allergy Severe Hives Verified 04/12/25 01:50 dulaglutide (From Trulicity) Allergy Severe Hives Verified 04/12/25 01:50 liraglutide (From Victoza) Allergy Severe Hives Verified 04/12/25 01:50 Penicillins Allergy Severe Hives Verified 04/12/25 01:50 PFSH PFSH Medical History Peripheral neuropathy ?G62.9 - Polyneuropathy, unspecified (ICD-10) Hyperlipidemia associated with type 2 diabetes mellitus ?E11.69 - Type 2 diabetes mellitus with other specified complication (ICD-10) ?E78.5 - Hyperlipidemia, unspecified (ICD-10) Non-insulin dependent type 2 diabetes mellitus ?E11.9 - Type 2 diabetes mellitus without complications (ICD-10) Hypertension ?I10 - Essential (primary) hypertension (ICD-10) Smoker ?F17.200 - Nicotine dependence, unspecified, uncomplicated (ICD-10) Social History Highest level of school completed/degree received: high school graduate Little interest or pleasure in doing things: not at all Feeling down, depressed, or hopeless: not at all Do you think of yourself as: straight/heterosexual Gender Identity: male Exam Narrative Exam Narrative: Nurses notes and vital signs reviewed and patient is not hypoxic. afebrile General: Well-appearing and in no apparent distress. Skin: Warm, dry, no pallor noted. No rash. Head: Normocephalic, atraumatic. Neck: Supple, non-tender. No meningismus. Eye: Pupils are equal, round and EOMI. No scleral icterus. Ears, Nose, Mouth, and Throat: Oral mucosa is dry Cardiovascular: Regular Rate and Rhythm without murmur, gallop or rub. Respiratory: No accessory muscle use or respiratory distress. Lungs are clear to auscultation, no wheezing, rales or rhonchi Chest Wall: no tenderness Back: No CVA tenderness Musculoskeletal: normal ROM GI: Abdomen is soft, non-distended. Normal bowel sounds. Diffuse upper abdominal as well as suprapubic and left lower quadrant tenderness to palpation. No rebound, guarding, or rigidity noted. Neurological: A&O x4. No cranial nerve dysfunction observed. No truncal ataxia. Moves all extremities. Sensation intact. Psychiatric: Cooperative and interactive. Normal mood and affect. Constitutional Vital Signs, click to edit/add: Last Vital Signs Temp 97.7 F 04/12/25 01:47 Pulse 78 04/12/25 04:46 Resp 20 04/12/25 04:46 BP 127/71 04/12/25 04:46 Pulse Ox 97 04/12/25 04:46 O2 Del Method Room Air 04/12/25 04:46 Course Vital Signs Vital signs: Vital Signs Temperature 97.7 F 04/12/25 01:47 Pulse Rate 84 04/12/25 01:47 Respiratory Rate 20 04/12/25 01:47 Blood Pressure 160/70 H 04/12/25 01:47 Pulse Oximetry 97 04/12/25 01:47 Oxygen Delivery Method Room Air 04/12/25 01:47 Temperature 97.7 F 04/12/25 01:47 Pulse Rate 78 04/12/25 04:46 Respiratory Rate 20 04/12/25 04:46 Blood Pressure 127/71 04/12/25 04:46 Pulse Oximetry 97 04/12/25 04:46 Oxygen Delivery Method Room Air 04/12/25 04:46 MDM - Abdominal Pain MDM Narrative Medical decision making narrative: Peripheral IV established blood drawn and sent for testing. The blood testing was unremarkable with normal white blood cell count, unremarkable CMP, normal LFTs, negative lipase. UA was also negative. CT scan, according to the radiologist, reveals gastric ulcer along the posterior wall of the antrum. He also has some enlarged lymph nodes in the gastrohepatic ligament, reactive versus neoplastic process, subcapsular hematoma about the spleen and prostate enlargement within the diverticulum of the urinary bladder suggesting chronic outlet obstruction. Patient was informed of results, diagnosis and was discharged home with prescriptions for Carafate and Nexium. He was instructed to contact his PCP for additional follow up. Medical Records Attestation: I reviewed the patient's medical records. Lab Data Attestation: I reviewed the patient's lab results. Labs: Lab Results 04/12/25 04/12/25 Range/Units 02:00 02:25 WBC 9.1 (4.0-11.0) 10^3/uL RBC 5.10 (4.70-6.10) 10^6/uL Hgb 16.1 (14.0-18.0) g/dL Hct 47.0 (42.0-54.0) % MCV 92.2 (80.0-94.0) fL MCH 31.6 (25.9-34.0) pg MCHC 34.3 (29.9-35.2) g/dL RDW 13.3 (11.0-15.0) % Plt Count 213 (150-450) 10^3/uL MPV 9.9 (9.5-13.5) fL Neut % (Auto) 68.4 (43.0-75.0) % Lymph % (Auto) 21.1 (20.5-60.0) % Greer % (Auto) 8.4 (1.7-12.0) % Eos % (Auto) 1.5 (0.9-7.0) % Baso % (Auto) 0.3 (0.2-2.0) % Neut # (Auto) 6.2 (1.4-6.5) 10^3/uL Lymph # (Auto) 1.9 (1.2-3.8) 10^3/uL Greer # (Auto) 0.8 (0.3-0.8) 10^3/uL Eos # (Auto) 0.1 (0.0-0.7) 10^3/uL Baso # (Auto) 0.0 (0.0-0.1) 10^3/uL Abs Immat Gran (auto) 0.03 (0.00-0.03) 10^3/uL Imm/Tot Granulo (auto) 0.3 (0.0-0.5) % Sodium 138 (136-145) mmol/L Potassium 4.2 (3.5-5.1) mmol/L Chloride 103 (98-107) mmol/L Carbon Dioxide 25.9 (21.0-32.0) mmol/L Anion Gap 13.3 BUN 21.0 H (7.0-18.0) mg/dL Creatinine 0.62 L (0.70-1.30) mg/dL Est GFR ( Amer) >60 (>=60 mL/min/1.73m^2) Est GFR (Non-Af Amer) >60 (>=60 mL/min/1.73m^2) BUN/Creatinine Ratio 33.9 Glucose 122 H (74-106) mg/dL Lactate 1.0 (0.4-2.0) mmol/L Calcium 9.2 (8.5-10.1) mg/dL Total Bilirubin 0.3 (0.2-1.0) mg/dL AST 14 L (15-37) U/L ALT 13 L (16-63) U/L Alkaline Phosphatase 111 (46-116) U/L Total Protein 7.3 (6.4-8.2) g/dL Albumin 3.3 L (3.4-5.0) g/dL Globulin 4.0 g/dL Albumin/Globulin Ratio 0.8 Lipase 65.0 (16.0-77.0) U/L Urine Color Yellow (YELLOW) Urine Clarity Clear (CLEAR) Urine pH 6.0 (5.0-9.0) Ur Specific Hamler 1.015 (1.005-1.025) Urine Protein Negative (NEG/TRACE) mg/dL Urine Glucose (UA) >=1000 A (NEGATIVE) mg/dL Urine Ketones Trace A (NEGATIVE) mg/dL Urine Occult Blood Negative (NEGATIVE) Urine Nitrite Negative (NEGATIVE) Urine Bilirubin Negative (NEGATIVE) Urine Urobilinogen 0.2 (0.2-1.0) EU/dL Ur Leukocyte Esterase Negative (NEGATIVE) Urine RBC None seen (0-2) #/HPF Urine WBC 0-2 A (NONE SEEN) #/HPF Ur Squamous Epith Cells None seen (NONE/RARE) #/LPF Urine Crystals None seen (None Seen) #/HPF Urine Bacteria Trace A (NONE SEEN) #/HPF Urine Casts None seen (NONE SEEN) #/LPF Urine Mucus None seen (NONE SEEN) Ur Culture Indicated? No Imaging Data CT scan - abdomen: Attestation: I have reviewed the pertinent imaging results. Radiologist's impression: 1. Gastric ulcer along the posterior wall of the antrum. Endoscopy recommended for further evaluation. 2. Enlarged lymph nodes in the gastrohepatic ligament could be reactive although neoplastic process could have similar appearance. 3. Subcapsular probable hematoma about the spleen measuring up to 4 mm. 4. Prostate enlargement with the diverticula in the urinary bladder suggesting chronic outlet obstruction. Discharge Plan Discharge Chief Complaint: Abdominal Pain Clinical Impression: Gastric ulcer, Abdominal pain Patient Disposition: Home, Self-Care Time of Disposition Decision: 05:11 Prescriptions / Home Meds: New esomeprazole magnesium [Nexium] 40 mg capsule,delayed release(DR/EC) 40 mg PO DAILY 28 Days Qty: 28 0RF sucralfate [Carafate] 1 gram tablet 1 g PO Q6H 28 Days Qty: 112 0RF No Action clopidogrel 75 mg tablet 75 mg PO DAILY dapagliflozin propanediol [Farxiga] 10 mg tablet 10 mg PO DAILY metformin 1,000 mg tablet 1,000 mg PO BID metoprolol tartrate 50 mg tablet 50 mg PO BID simvastatin 20 mg tablet 20 mg PO DAILY tamsulosin 0.4 mg capsule 0.4 mg PO DAILY pioglitazone 45 mg tablet 45 mg PO DAILY glipizide 10 mg tablet 10 mg PO BID gabapentin 400 mg capsule 600 mg PO QID azithromycin 250 mg tablet 250 mg PO DAILY 4 Days Qty: 4 0RF prednisone 20 mg tablet 20 mg PO BID 5 Days Qty: 10 0RF amlodipine 5 mg tablet 5 mg PO DAILY trazodone 50 mg tablet 50 mg PO DAILY sulfamethoxazole-trimethoprim 800-160 mg tablet 1 tab PO Q12H metronidazole 500 mg tablet 500 mg PO Q8H Print Language: Mohawk Instructions: Peptic Ulcer (ED), Diet for Stomach Ulcers and Gastritis (ED), Abdominal Pain (ED) Referrals: Tonya Dye NP [Primary Care Provider, Family Practice] - 1 week AMANDA ALEMAN [Physician, Gastroenterology] - 1 week
[2025-04-12 02:33] LABS: Basophils Percent Auto 0.3 % (0.2-2.0); Eosinophils Absolute Auto 0.1 10^3/uL (0.0-0.7); Eosinophils Percent Auto 1.5 % (0.9-7.0); Hemoglobin 16.1 g/dL (14.0-18.0); Immature Granulocytes Abs Auto 0.03 10^3/uL (0.00-0.03); Immature Granulocytes Pct Auto 0.3 % (0.0-0.5); Lymphocytes Absolute Auto 1.9 10^3/uL (1.2-3.8); Lymphocytes Percent Auto 21.1 % (20.5-60.0); Mean Corpuscular HGB Conc 34.3 g/dL (29.9-35.2); Mean Corpuscular Hemoglobin 31.6 pg (25.9-34.0); Mean Corpuscular Volume 92.2 fL (80.0-94.0); Mean Platelet Volume 9.9 fL (9.5-13.5); Monocytes Absolute Auto 0.8 10^3/uL (0.3-0.8); Monocytes Percent Auto 8.4 % (1.7-12.0); Neutrophils Absolute Auto 6.2 10^3/uL (1.4-6.5); Neutrophils Percent Auto 68.4 % (43.0-75.0); Platelet Count 213 10^3/uL (150-450); Red Cell Distribution Width 13.3 % (11.0-15.0); White Blood Count 9.1 10^3/uL (4.0-11.0)
[2025-04-12] MEDS: HYOSCYAMINE SULFATE 0.125 MG TAB.SUBL SL (02:33)
[2025-04-12] MEDS: ONDANSETRON PF 4 MG/2 ML VIAL IV (02:33)
[2025-04-12] MEDS: 0.9 % SODIUM CHLORIDE 1,000 ML 1000 ML IV (02:33)
[2025-04-12 02:34] LABS: Bilirubin Urine NEGATIVE (NEGATIVE); Blood Urine NEGATIVE (NEGATIVE); Clarity Urine CLEAR (CLEAR); Color Urine YELLOW (YELLOW); Glucose Urine UA >=1000 mg/dL (NEGATIVE); Ketones Urine TRACE mg/dL (NEGATIVE); Leukocyte Esterase Urine NEGATIVE (NEGATIVE); Nitrite Urine NEGATIVE (NEGATIVE); Protein Urine NEGATIVE (NEG/TRACE); Specific Gravity Urine 1.015 (1.005-1.025); Urobilinogen Urine 0.2 EU/dL (0.2-1.0)
[2025-04-12 02:50] LABS: Bacteria Urine TRACE #/HPF (NONE SEEN); Cast Seen? NONE SEEN #/LPF (NONE SEEN); Crystals Seen? None Seen #/HPF (None Seen); Mucus Urine NONE SEEN (NONE SEEN); RBC Urine NONE SEEN #/HPF (0-2); Squamous Epithelial Cell Urine NONE SEEN #/LPF (NONE/RARE); Urine Culture Indicated NO; WBC Urine 0-2 #/HPF (NONE SEEN)
[2025-04-12 02:53] LABS: Alanine Aminotransferase 13 U/L (16-63); Albumin Globulin Ratio 0.8; Albumin Level 3.3 g/dL (3.4-5.0); Alkaline Phosphatase 111 U/L (46-116); Anion Gap 13.3; Aspartate Amino Transferase 14 U/L (15-37); BUN Creatinine Ratio 33.9; Bilirubin Total 0.3 mg/dL (0.2-1.0); Calcium 9.2 mg/dL (8.5-10.1); Carbon Dioxide 25.9 mmol/L (21.0-32.0); Chloride 103 mmol/L (98-107); Estimated GFR (African America >60 (>=60 mL/min/1.73m^2); Estimated GFR (Non-African Ame >60 (>=60 mL/min/1.73m^2); Glucose 122 mg/dL (74-106); Potassium 4.2 mmol/L (3.5-5.1); Sodium 138 mmol/L (136-145); Total Protein 7.3 g/dL (6.4-8.2)
[2025-04-12 04:46] VITALS: BP 127/71; PULSE 78; O2SAT 97
== END 2025-04-12 05:28 | disposition home or self-care (01) ==
PROVIDERS: Emergency Provider Emergency Medicine; PCP Nurse Practitioner
DX: K25.9 Gastric ulcer, unspecified as acute or chronic, without hemorrhage or perforation (principal); R59.0 Localized enlarged lymph nodes; R10.30 Lower abdominal pain, unspecified
CPT/HCPCS: 36415; 74177; 80053; 81001; 83605; 83690; 85025; 96361; 96374; 99285; J2405; Q9967

== ENCOUNTER 2025-08-19 12:15 | Outpatient (OUT) | payer MEDICARE, OTHER, SELFPAY ==
--- OUTSIDE RECORDS SUMMARY | 2024-09-23 04:15 | XMS_ITS ---
Author Organization [facility] vices Address [address] [place] [phone] Care Team Providers Care Federal Air Marshal Name Role Phone Loren Luque Unavailable [phone] REASON FOR VISIT Extraction #18 Social History Sex Assigned At : Social History Observation Description Sex Assigned At Male Encounters Encounter Location Date Provider Diagnosis [facility] [address] [place], [place] [id number] 09/23/2024 Loren Luque Plan Of Treatment No Information Progress Notes * Darin THACKERDOB:1950 (75 yo M)Acc No.[id number]:09/23/2024 Patient:?Darin THACKER :?Loren Luque DDSDOB:1950???Age:74 Y ???Sex:MaleDate:09/23/2024hone:[phone]:[address] [place] [address] [address] [place], [place] [phone] Subjective: * Chief Complaints: * 1 . Extraction #18. * Medical History: Objective: * Vitals: Assessment: Plan: * Treatment: * Billing Information: * Visit Code: * Procedure Codes: * Electronic signature of Loren Luque DDS on 08/19/2025 at 12:21 PM EST Sign off status: Pending * Provider: Miryam Luque DDS Date: 11/24/2023 Generated for Printing/Faxing/eTransmitting on:?08/19/2025 12:21 PM EST
--- OUTSIDE RECORDS SUMMARY | 2025-01-08 09:15 | XMS_ITS ---
Author Organization [facility] vices Address [address] [place] [phone] Care Team Providers Care Master Automotive Technician Name Role Phone Loren Luque Unavailable [phone] REASON FOR VISIT Extraction #18 Social History Sex Assigned At : Social History Observation Description Sex Assigned At Male Encounters Encounter Location Date Provider Diagnosis [facility] [address] [place], [place] [phone] 01/08/2025 Loren Luque Plan Of Treatment No Information Progress Notes * Darin THACKERDOB:1950 (75 yo M)Acc No.[id number]:01/08/2025 Patient:?Darin THACKER :?Loren Luque DDSDOB:1950???Age:74 Y ???Sex:MaleDate:01/08/2025Phone:[phone]:[address] [place] [address] [address] [place], [place] [phone] Subjective: * Chief Complaints: * 1 . Extraction #18. * Medical History: Objective: * Vitals: Assessment: Plan: * Treatment: * Billing Information: * Visit Code: * Procedure Codes: * Electronic signature of Loren Luque DDS on 08/19/2025 at 12:20 PM EST Sign off status: Pending * Provider: Miryam Luque DDS Date: 0 01/08/2025 Generated for Printing/Faxing/eTransmitting on:?08/19/2025 12:20 PM EST
--- OUTSIDE RECORDS SUMMARY | 2025-08-04 12:00 | XMS_ITS | Encounter Summary ---
Author Organization [employer] Formerly [facility] tem Address [id number] [address] [place] [address] Care Team Providers Care Economic Research Analyst Name Role Phone Tonya Dye CAPACITY PLANNING MANAGER-FLOOR MANAGER Primary Care Provider Reason for Referral * Cardiology (Routine) - ClosedSpecialtyDiagnoses / ProceduresReferred By ContactReferred To Contact Diagnoses Nonrheumatic aortic (valve) stenosis Procedures Echo complete W/O contrast Tamara Rebolledo MD [address] [place] [address] Phone: tel: fax: Referral IDStatusReasonStart DateExpiration DateVisits RequestedVisits [id number]/30/20259/30/202611 Reason for Visit * Cardiology (Routine) - ClosedSpecialtyDiagnoses / ProceduresReferred By ContactReferred To Contact Diagnoses Nonrheumatic aortic (valve) stenosis Procedures Echo complete W/O contrast Tamara Rebolledo MD [address] [place] [address] Phone: tel: fax: Referral IDStatusReasonStart DateExpiration DateVisits RequestedVisits [id number]/30/20259/30/202611 Encounter Details DateTypeDepartmentCare Team (Latest Contact Info)Bjwdydmphbr92/20/2025 1:00 PM EDT - 08/04/2025 11:59 PM EDTHospital Encounter [facility] - [facility]ovascular [address] [place] [address] Tamara Rebolledo MD [address] [place] [address] Nonrheumatic aortic (valve) stenosis Discharge Disposition: Home Social History Tobacco UseTypesPacks/DayYears UsedDateSmoking Tobacco: Every DayCigarettes0.530 Smokeless Tobacco: Never Comments:reports down to 10 cigarettes a day 11/25/21 Alcohol UseStandard Drinks/WeekCommentsNot Currently0 (1 standard drink = 0.6 oz pure alcohol)[facility] UtilitiesAnswerDate RecordedIn the past 12 months has the [employer], gas, oil, or water [employer] threatened to shut off services in your home?No06/13/2025UDIT-CAnswerDate RecordedQ1: How often do you have a drink containing alcohol?Never06/13/2025Q2: How many drinks containing alcohol do you have on a typical day when you are drinking?Patient does not drink06/13/2025Q3: How often do you have six or more drinks on one occasion?Never06/13/2025PHQ-2 AnswerDate RecordedTotal Unblq246PRAPARE - TransportationAnswerDate RecordedIn the past 12 months, has lack of transportation kept you from medical appointments or from getting medications?No06/13/2025In the past 12 months, has lack of transportation kept you from meetings, work, or from getting things needed for daily living?No06/13/2025Housing InstabilityAnswerDate RecordedAre you worried or concerned that in the next two months you may not have stable housing that you own, rent or stay in as a part of a household?No06/13/2025 ChildcareAnswerDate GbkurgegXdpnymysmXdsxrox20/12/2019EmploymentAnswerDate BksjnyigZywcznnsjlCinfgit43/12/2019Hunger ScreeningAnswerDate RecordedWithin the past 12 months we worried whether our food would run out before we got money to buy more.Never True07/15/2025Within the past 12 months the food we bought just didn't last and we didn't have money to get more.Never True07/15/2025Purpose - LifeAnswerDate RecordedPurpose and direction in ekksJphewjp92/11/2021ex and Gender InformationValueDate RecordedSex Assigned at BirthNot on fileLegal Sex Male05/21/2015 11:30 AM EDTGender IdentityNot on fileSexual OrientationNot on filedocumented as of this encounter Medications at Time of Discharge MedicationSigDispense QuantityRefillsLast FilledStart DateEnd Date atorvastatin (LIPITOR) 40 mg tablet Take 1 tablet (40 mg total) by mouth nightly for 360 days. 90 tablet / clopidogreL (PLAVIX) 75 mg tablet Take 1 tablet (75 mg total) by mouth in the morning. 90 tablet cyanocobalamin 1000 MCG tablet Take 1 tablet (1,000 mcg total) by mouth in the morning. FARXIGA 10 mg tablet 1 mg in the morning.12/19/2022 ferrous sulfate 325 (65 FE) mg tablet Take 1 tablet (325 mg total) by mouth daily with breakfast. fluticasone (FLONASE) 50 mcg/actuation nasal spray Indications:Obstruction of paranasal sinusAdminister 2 sprays into each nostril daily. 16 g 11011/07/2017 gabapentin (NEURONTIN) 300 mg capsule Take 2 [...] mg total) in the evening. Take with meals.08/31/2017 metoprolol tartrate (LOPRESSOR) 100 mg tablet Take 1 tablet (100 mg total) by mouth in the morning and 1 tablet (100 mg total) before bedtime. Doall this for 360 days. 180 tablet pioglitazone (ACTOS) 30 mg tablet Take 1 tablet (30 mg total) by mouth in the morning.08/31/2017 tamsulosin (FLOMAX) 0.4 mg capsule,extended release 24hr Take 1 capsule (0.4 mg total) by mouth nightly.08/31/2017 warfarin (COUMADIN) 2 mg tablet 2 milligrams p.o. daily 60 tablet 51documented as of this encounter Plan of Treatment DateTypeDepartmentCare Team (Latest Contact Info)Igomibyuxvu32/10/2025 2:00 PM ESTFollow Up Anticoagulation [facility] - Pharmacy Medication Management [address] [place] [address] 09/15/2025 8:30 AM ESTAncillary Procedure [facility] [address] [place] [phone] Tamara Rebolledo MD [address] [place] [address] 03/04/2026 2:15 PM EDTAppointment [facility] - Vascular [address] [place] [address] Robyn Frazier, CAPACITY PLANNING MANAGER-FLOOR MANAGER [address] [facility] [place] [phone] 03/04/2026 3:00 PM EDTAppointment [facility] - Vascular [address] [place] [address] Robyn Frazier, CAPACITY PLANNING MANAGER-FLOOR MANAGER [address] [facility] [place] [address] 04/02/2026 11:50 AM EDTOffice Visit [facility] [place] [address] Yaneli Howell MD [address], [address] [address] documented as of this encounter Goals GoalPatient Goal TypeAssociated ProblemsRecent ProgressPatient-Stated?Author <enter goal here> Gabriella Scott RN Note: Evaluation of progress towards goal: patient progressing toward safe discharge. documented as of this encounter Procedures Procedure NamePriorityDate/TimeAssociated DiagnosisCommentsECHO COMPLETE WO XHFUPAOSWfgwoce41/20/2025 1:49 PM EDT Nonrheumatic aortic (valve) stenosis documented in this encounter Results * Echo complete W/O contrast (08/04/2025 1:49 PM EDT)ComponentValueRef RangeTest MethodAnalysis TimePerformed AtPathologist SignatureLVOT stroke .68ml XCELERALV Systolic Smgews24.40zQEPWNRGFSP04%XCELERALV Diastolic Idnnsf93.30mL XCELERALVOT diameter1.55vnYWMUBSXDIV2.35cm/sXCELERAMV TDI E' (medial)5.51cm/s XCELERALA Volume Index26.2mL/u6AAUPTCGK/A ratio1.57XCELERAE wave deceleration tvrl740.00msecXCELERAMV Peak E Lpj587.00cm/sXCELERAMV Peak A Vel86.90cm/s XCELERALA bizrbd44.48lq4AXHZBOAIJ diastolic dimension (basal)40.8mmXCELERA TAPSE1.27cmXCELERAAV peak hyd374.00cm/sXCELERALVOT peak vel1.25m/sXCELERAAV VTI56.00cmXCELERALVOT peak VTI34.10cmXCELERAAV mean whvohodx20.00mmHgXCELERAAV peak slehhfyd27.07mmHgXCELERAAV valve area1.73XCELERAValve area - Index0.9 XCELERAMV pressure 1/2 time62.00msXCELERAMV valve area p 1/2 method3.55cm2 XCELERATR Peak Vel2.9m/sXCELERATR peak onjsszke69.57mmHgXCELERALV ESV A2C65.50 mLXCELERALV ESV A4C42.30mLXCELERAEcho EF Hzwevupse56%XCELERAAV Velocity Ratio 0.61XCELERARA area15.0ze6SQADDMQClm. RA bhcvqlgm1bkSoBFNLYCPDL Peak Systolic Yhgbqijb71wfEfSRTGZFTLJ mn grad zwranifpld86.0qrLeMCQBYULGBB9.8uh4PBOUJESWb grad swowgqrcoz70.0mmHgXCELERAAnatomical RegionLateralityModalityChestN/A UltrasoundSpecimen (Source)Anatomical Location / LateralityCollection Method / VolumeCollection TimeReceived Time Narrative 08/04/2025 2:21 PM EDT Right Ventricle: Right ventricular size is mildly dilated. The right ventricular basal diameter is 40.8 mm. Systolic function is mildly reduced. ?Left??Ventricle: Systolic function is normal with an ejection fraction of 55-60%. The quantitative EF by 2D Aguilar biplane is 59%. ?Aortic??Valve: 23 ??mm Magna AVR 06/13/2025 Left Ventricle Left ventricle was not well visualized. Systolic function is normal with an ejection fraction of 55-60%. The quantitative EF by 2D Aguilar biplane is 59%. No obvious regional wall motion abnormalities. Lateral E' is 7.35 cm/s. Medial E' is 5.51 cm/s. Right Ventricle Right ventricular size is mildly dilated. The right ventricular basal diameter is 40.8 mm. Systolicfunction is mildly reduced. Left Atrium Left atrium volume index is normal. The left atrial volume index is 26.2 mL/m2. Right Atrium Right atrium is normal in size. The right atrial area is 15.0 cm2. IVC/SVC The right atrial pressure is estimated at 3 mmHg. IVC appears normal. There is normal collapse withdeep inspiration. Mitral Valve The leaflets are mildly thickened. There is rddyr-eu-hhaq regurgitation. There is no evidence of mitral valve stenosis. Tricuspid Valve Tricuspid valve appears to be normal. There is mild regurgitation. RVSP calculated at 38 mmHg. RVSPis based on RA pressure of 3 mmHg. Aortic Valve 23 mm Magna AVR 06/13/2025 There is no regurgitation. The gradient recorded across the prosthetic aortic valve is within the expected range. Pulmonic Valve The pulmonic valve was not well visualized. Ascending Aorta The aorta was not well visualized. Pericardium There is no pericardial effusion. Study Details A complete echo was performed using complete 2D, color flow Doppler and spectral Doppler. The studywas difficult due to patient's body habitus and poor acoustic windows. Wall Scoring Baseline Score Index: 1.00 The left ventricular wall motion is normal. Authorizing ProviderResult TypeResult StatusLaura Wolf Rebolledo [facility] ECHO ORDERABLESFinal Result documented in this encounter Visit Diagnoses Diagnosis Nonrheumatic aortic (valve) stenosis documented in this encounter Additional Health Concerns AssessmentNoted TimePHQ-9 Depression Total Score: 3:57 PM EDTA Body Mass Index follow-up plan has been documented for the amjeycg5511/14/2019 2:01 PM ESTdocumented as of this encounter Care Teams Team MemberRelationshipSpecialtyStart DateEnd Date Tonya Dye, CAPACITY PLANNING MANAGER-FLOOR MANAGER PCP - GeneralNurse Ziumhkyovpdc22/23/21documented as of this encounter
--- OUTSIDE RECORDS SUMMARY | 2025-08-11 14:00 | XMS_ITS | Encounter Summary ---
Author Organization [facility] tem Address [facility] [place], [place]-[id number] [address] [place] [address] Care Team Providers Care [employer]oles[employer]ker Name Role Phone Toyna Dye MATTRESS FINISHER-CUT TOBACCO BULKER Primary Care Provider Encounter Details DateTypeDepartmentCare Team (Latest Contact Info)Qptbivvpykg00/27/2025 3:00 PM EDTFollow Up Anticoagulation [facility] - Pharmacy Medication Management [address] [place] [address] S/P CABG (coronary artery bypass graft) (Primary Dx); S/P AVR (aortic valve replacement) Social History Tobacco UseTypesPacks/DayYears UsedDateSmoking Tobacco: Every DayCigarettes0.530 Smokeless Tobacco: Never Comments:reports down to 10 cigarettes a day 11/25/21 Alcohol UseStandard Drinks/WeekCommentsNot Currently0 (1 standard drink = 0.6 oz pure alcohol)[facility] UtilitiesAnswerDate RecordedIn the past 12 months has the [employer], [employer], oil, or water [employer] threatened to shut off services in your home?No06/13/2025UDIT-CAnswerDate RecordedQ1: How often do you have a drink containing alcohol?Never06/13/2025Q2: How many drinks containing alcohol do you have on a typical day when you are drinking?Patient does not drink06/13/2025Q3: How often do you have six or more drinks on one occasion?Never06/13/2025PHQ-2 AnswerDate RecordedTotal Uitcj861PRAPARE - TransportationAnswerDate RecordedIn the past 12 months, [...] as a part of a household?No06/13/2025 ChildcareAnswerDate YfynegopLzsgeqwanOpgmums28/12/2019EmploymentAnswerDate InbtjjopCpqgtjhoekMyhdbvv27/12/2019Hunger ScreeningAnswerDate RecordedWithin the past 12 months we worried whether our food would run out before we got money to buy more.Never True07/15/2025Within the past 12 months the food we bought just didn't last and we didn't have money to get more.Never True07/15/2025Purpose - LifeAnswerDate RecordedPurpose and direction in fdvcAphkfkk82/11/2021ex and Gender InformationValueDate RecordedSex Assigned at BirthNot on fileLegal Sex Male05/21/2015 11:30 AM EDTGender IdentityNot on fileSexual OrientationNot on filedocumented as of this encounter Progress Notes * Flora Moon, [facility] - 08/11/2025 3:00 PM EDT 15 minute aalp-xb-qlvz follow-up anticoagulation appointment. INR performed in office per protocol. INR 2.1 (goal range: 2.0-3.0). Patient reports: Taking warfarin dosing as documented. Missed or extra doses of warfarin: No Changes to medications: YES Amiodarone stopped ~4 weeks ago Changes to lifestyle (diet / alcohol / smoking / activity): YES Patient is scheduled to start cardiac rehab next week, but reports he is considering cancelling it to care for his daughter. Encouraged to discuss maybe post-poning his start date a week verse cancelling all together. Patient to consider and will follow up with cardiac rehab Recent emergency department visit / hospitalization / health changes / new contraindication to current anticoagulant: No Signs/symptoms of bruising/bleeding or clotting or any intolerable adverse events: No Upcoming procedures: No Anticoagulant prescription needed: YES- Mail Order Seen referring provider in the last year Duration of therapy reviewed Patient could benefit from [facility] Adherence Pharmacy pill packaging and patient is agreeable forreferral to be sent: No Assessment: INR is remaining stable in therapeutic range on current warfarin regimen. Trending downwith amiodarone clearance, therefore will increase additional 6% Plan: Patient instructed to increase to warfarin 3 mg Tue//Sat and 2 mg AOD. Check INR in 2 week(s). Patient verbalizes understanding of anticoagulant dosing instructions and information discussed. Dosing regimen, counseling, and follow-up appointment were provided to the patient. Patient reminded to call with questions or any medication changes. Patient instructed to seek medical attention if anymajor bleeding/bleeding that persists or worsens. Flora Moon RPH 08/11/25 1500 documented in this encounter Plan of Treatment DateTypeDepartmentCare Team (Latest Contact Info)Eqtwwuxfjjj86/10/2025 2:00 PM ESTFollow Up Anticoagulation [facility] - Pharmacy Medication Management [address] [place] [address] 09/15/2025 8:30 AM ESTAncillary Procedure [facility] [address] [place] [phone] Tamara Rebolledo MD [address] [place] [address] 03/04/2026 2:15 PM EDTAppointment [facility] - Vascular [address] [place] [phone] Robyn Frazier, MATTRESS FINISHER-CUT TOBACCO BULKER [address] [place] [address] 03/04/2026 3:00 PM EDTAppointment [facility] [address] [place] [phone] Robyn Frazier, MATTRESS FINISHER-CUT TOBACCO BULKER [address] [place] [address] 04/02/2026 11:50 AM EDTOffice Visit [facility] [address] [place] [address] Yaneli Howell MD [address], [address] [address] documented as of this encounter Goals GoalPatient Goal TypeAssociated ProblemsRecent ProgressPatient-Stated?Author <enter goal here> Gabriella Scott RN Note: Evaluation of progress towards goal: patient progressing toward safe discharge. documented as of this encounter Procedures Procedure NamePriorityDate/TimeAssociated DiagnosisCommentsPOCT PROTIME / INR Xnklvac9408/11/2025 2:48 PM EDT S/P CABG (coronary artery bypass graft) S/P AVR (aortic valve replacement) documented in this encounter Results * (ABNORMAL) POCT Protime / INR (08/11/2025 2:48 PM EDT)ComponentValueRef Range Test MethodAnalysis TimePerformed AtPathologist SignatureINR2.1(A)0.8 - 1.2 MANUALLY TRANSCRIBED RESULTSSpecimen (Source)Anatomical Location / Laterality Collection Method / VolumeCollection TimeReceived Time08/11/2025 2:48 PM EDT Narrative Authorizing ProviderResult TypeResult StatusPromedica Pharmacy Medication ManagementPOINT OF CARE TEST ORDERABLESFinal ResultPerforming Organization AddressCity/State/ZIP CodePhone Number MANUALLY TRANSCRIBED RESULTS documented in this encounter Visit Diagnoses Diagnosis S/P CABG (coronary artery bypass graft)- Primary Postsurgical aortocoronary bypass status S/P AVR (aortic valve replacement) Heart valve replaced by other means documented in this encounter Additional Health Concerns AssessmentNoted TimePHQ-9 Depression Total Score: 3:57 PM EDTA Body Mass Index follow-up plan has been documented for the gjilcja4111/14/2019 2:01 PM ESTdocumented as of this encounter Care Teams Team MemberRelationshipSpecialtyStart DateEnd Date Tonya Dye APRN-CUT TOBACCO BULKER PCP - GeneralNurse Gvuaguhgmyww84/23/21documented as of this encounter
--- OUTSIDE RECORDS SUMMARY | 2025-08-13 09:35 | XMS_ITS | Continuity of Care Document ---
Author Organization [facility] Address [address] [place] [address] Phone Care Team Providers Care Straight Ruling Machine Operator Name Role Phone Tonya Dye FLAME CHANNELER-C Primary Care Provider [phone] Tonya Dye FLAME CHANNELER-C Attending Provider Care Teams Patient Care Team Team Status: Active Member Role/Relationship Status Dates Tonya Dye NP-C Primary Care Provider Active Visit Care Team Team Status: Inactive Member Role/Relationship Status Dates Tonya Dye NP-C Primary Care Provider Active Start: July 14, 2025 End: July 14, 2025ARNOLD JenningsCAttenroverto ProviderActiveStart: July 14, 2025 End: July 14, 2025 Patient Care Team Team Status: Inactive Member Role/Relationship Status Dates Tonya Dye NP-Jared Primary Care Provider Active Start: August 13, 2025 End: August 13, 2025ARNOLD JenningsCAttenroverto ProviderActiveStart: August 13, 2025 End: August 13, 2025 Chief Complaint and Reason for Visit Chief Complaint Admit Date panic attacks July 14, 2025 3:47pm 3W August 13, 2025 1 :33pm Reason for Visit Admit Date Essential hypertension July 14, 2 025 3:47pm Hx of CABG July 14, 2025 3:47pm Nicotine dependence July 14, 2025 3:47pm Panic attack July 14, 2025 3:47pm S/P aortic valve replacement June 172024 3:47pm 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, without long-term July 14, 2025 3:47pm Enlarged prostate August 13, 2025 1 :33pm Essential hypertension August 13 1:33pm Hx of CABG August 13, 2025 1 :33pm Intra-abdominal lymphadenopathy August 13, 2025 1:33pm Nicotine dependence August 13, 2025 1 :33pm Panic attack August 13, 2025 1 :33pm S/P aortic valve replacement July 1:33pm Allergies, Adverse Reactions, Alerts Allergen Type Severity Reaction Last Updated Verified Status Comments ciprofloxacin Allergy Unknown Itching, high BP/Itching June 27, 2025 5:03pm Yes Active liraglutideAllergyUnknownBlisterSeptember 2024 5:03pmYesActivePenicillins AllergyUnknownItchingSeptember 2024 5:03pmYesActivepollen extractsAllergy UnknownCongestedSeptember 2024 5:03pmYesActivecefaclorAllergyUnknown ItchingSeptember 2024 5:03pmYesActiveitching, high blood pressure dulaglutideAllergyUnknownCramping of the MusclesSeptember 2024 5:03pmYes Active Social History Smoking Status Status Start Date End Date Date of Observa tion Smokes tobacco daily (finding) December 27, 2023 2:29pm Observation Status Observation Response Date of Response Legal Sex Male (finding) [facility] 1949 Family History Relationship Condition Age at Onset Recorded Date/T vidhya brother Diabetes mellitus Unknown fatherDeceasedUnknownRheumatic fever with cardiac involvementUnknownfamily memberDeceasedUnknownmotherDiabetes mellitusUnknownDeceasedUnknownsisterDiabetes mellitusUnknownMalignant neoplasmUnknownMalignant neoplasm of breastUnknown Problems Active Problems Problem Diagnosis/Recorded Date Onset Date Status C omments Right carpal tunnel syndrome June 27, 2025 5:05pm U nknown Active Intra-abdominal lymphadenopathyOct2024 12:41pmUnknownActivePalatal lesionSeptember 2024 5:07pmUnknownActiveGeneralized anxiety disorder with panic attacksSeptember 2024 4:50pmUnknownActiveEncounter for subsequent annual wellness visit (AWV) in Medicare patientSeptember 2024 5:11pm UnknownActiveNicotine dependenceSeptember 2024 5:08pmUnknownActivePrimary insomniaSeptember 2024 5:13pmUnknownActiveTinnitus of right earSeptember 2024 5:10pmUnknownActiveLumbar radiculopathySeptember 2024 5:07pm UnknownActiveCAD in [place] arterySeptember 2024 5:15pmUnknownActive Diabetic neuropathySeptember 2024 5:13pmUnknownActiveSebaceous cystMarch 2023 3:45pmUnknownActiveEnlarged prostateOctober 2024 12:39pmUnknown ActiveHearing lossSeptember 2024 5:06pmUnknownActiveSpinal stenosis of cervical regionSeptember 2024 5:10pmUnknownActiveVitamin B12 deficiency Keri 2024 5:09pmUnknownActiveAortic valve stenosisSeptember 2024 5:14pmUnknownActiveBradycardiaSeptember 2024 5:05pmUnknownActivePVC (premature ventricular contraction)June 27, 2025 5:08pmUnknownActive Claudication in peripheral vascular diseaseSeptember 2024 5:11pmUnknown ActiveAcute gastritis without hemorrhageSeptember 2024 5:12pmUnknownActive Environmental and seasonal allergiesSeptember 2024 5:08pmUnknownActive Bilateral carotid bruitsSeptember 2024 5:14pmUnknownActiveDiastolic dysfunctionSeptember 2024 5:06pmUnknownActiveOlecranon bursitis of both elbowsSeptember 2024 5:10pmUnknownActiveEssential hypertensionSeptember 2024 5:06pmUnknownActivePanic attackSeptember 2024 5:08pmUnknown ActiveMass of adrenal glandSeptember 2024 5:07pmUnknownActiveType 2 diabetes mellitus with complication, without long-term current use of insulin June 27, 2025 5:14pmUnknownActiveIDA (iron deficiency anemia)June 27, 2025 5:06pmUnknownActiveS/P aortic valve replacementSeptember 2024 7:05amUnknownActiveHx of rotator cuff surgerySept2024 5:04pmUnknown ActiveType 2 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, without long-term current use of insulinSept2024 5:12pmUnknownActiveDiabetic retinopathySept2024 5:06pmUnknownActiveHx of aortic valve replacementSept2024 5:04pmUnknownActiveHx of CABGSept2024 5:04pmUnknownActiveInactive/Resolved Problems Problem Diagnosis/Recorded Date Onset Date Status C omments Lower extremity pain March 14, 2021 11:53am Unknown Res olved Problem List clean-up per request of Phys. EHR Cmte Medications Medication Status Dose Units Route Directions Qty Days Refills S tart Date Stop Date End Date Reason(s) Instructions Adherence Trazodone 50 mg tablet Active 50 MG PO Daily at bedtime 2024 4:55pmPrimary insomnia Primary insomniaComplies with drug therapyHydroxyzine Pamoate 25 mg capsule Ewjovs69UILWJsvfe daily as needed for qvuomem330Vzqemje 20th, 2025 12:00am Generalized anxiety disorder with panic attacks Generalized anxiety disorder Panic disorder [episodic paroxysmal anxiety]Complies with drug therapySertraline 25 mg awuscfIyafqc84IEEUYvgqh333Gelatqr 2024 12:00amGeneralized anxiety disorder with panic attacks Generalized anxiety disorder Panic disorder [episodic paroxysmal anxiety]Complies with drug therapyGlipizide 10 mg zcqkcmZxdiin48MONFNmszx dailyMay 2020 12:00amComplies with drug therapyAmlodipine 5 mg mbqrjuNabvopyxvyzc8AEIKIevbl eveningMay 2020 12:00amOctober 2024 6:13amAspirin (Aspir-Low) 81 mg Tablet,Delayed Release (Dr/Ec)Wnwzzlnwngro06FWNPGvqvsEsa 2020 12:00amMarch 2023 10:41am Tamsulosin 0.4 mg capsuleActive0.4MGPOEvery morningMay 2020 12:00am Complies with drug therapySimvastatin 20 mg rzmelbOhdrctvcpmzy51CDDEVeqkh morningMay 2020 12:00amSeptember 2024 5:24pmMetformin 1,000 mg znugzjIyojjg0801ITMJQludd dailyMay 2020 12:00amComplies with drug therapy Metoprolol Tartrate 50 mg yyrbhpKgndgrntyeom92JVUXGqmlf dailyMay 2020 12:00amSeptember 2024 5:24pmGabapentin 300 mg dwxedtvNkqotithkrtn284GUGX Four times dailyMay 2020 12:00amMarch 2023 10:42amPioglitazone 30 mg klnczbMngotiziiole61WLLXTmiiuYkn 2020 12:00amMarch 2023 10:43am Clopidogrel 75 mg QmnktyKxostosfsbqr73AYGBPjdrx8938811Dpf 2020 12:00am December 20, 2023 10:44amDapagliflozin Propanediol (Farxiga) 10 mg qzfuvzSdnxrw64 MGPOEvery eveningMarch 2023 1:00amComplies with drug therapyGabapentin 400 mg foqnopeYnuwmssgbcqf665OKQRWapyi times dailyMarch 2023 1:00amSeptember 2024 5:19pmPioglitazone 45 mg hghbauDbeltglltjii72VYFUkuzed day at noon December 20, 2023 1:00amSeptember 2024 5:24pmClopidogrel 75 mg TabletActive 75MGPOevery day at noonSumma Health [facility] 20[facility] 1:00amOn Hold: Resume on 12/30/23. Complies with drug therapyHydrocodone-Acetaminophen 5-325 mg tabletDiscontinued1 XVMHWP5G as needed for ozvz3660Rjhjk 2023September 2024 5:24pm Sebaceous cyst Sebaceous cystHydrocodone-Acetaminophen 5-325 mg fwxpwpBvkoevbhrpdk5EGKYTB6J as needed for wkxm6714Tti 2020March 2023 10:42amPain of lower extremity Pain in leg, unspecifiedFluticasone Propionate 50 mcg/actuation spray,suspension Qdubrf0LPKGIBRYKDKVIBMGidnyZqvpgdrgc 2024 12:00amadminister into each nostrilComplies with drug therapyFurosemide 40 mg shiaabRyuyzsanpkro51YXQDLgarw June 27, 2025 12:00amSeptember 2024 4:15pmAtorvastatin 40 mg tablet Qhiexz88HPKLHjvon at bedtimeSept2024 12:00amComplies with drug therapyGabapentin 600 mg bquevmKisvvm450STCT.COMPLEXSeptember 2024 12:00am 600 mg orally 1 am, 1 in afternoon, and 2 at bedtime;Complies with drug therapy Trazodone 50 mg zcvgukDrwjzifnhkhk37AUGGAalgc at bedtimeSeptember 2024 12:00amOctober 2024 4:55pmMetoprolol Tartrate 100 mg yqslryDutrtf435MZLT Twice dailySept2024 12:00amComplies with drug therapyAmiodarone 200 mg sgwmzfLscmfmwdnmwr070AMIAJnugnPuyveycpk 12th, 2025 12:00amOctober 2024 2:22pmPotassium Chloride 10 mEq tablet extended releaseDiscontinuedMEQPO June 27, 2025 12:00amSeptember 2024 4:15pmFamotidine 20 mg tablet Hwkcinxpvqlw26RKZXSjbfvUnstekgjd 12th, 2025 12:00amSeptember 2024 4:15pm Pantoprazole 40 mg tablet,delayed release (DR/EC)Ctvkpb04ENSRMvaemYevyypzpa 2024 12:00amComplies with drug therapyWarfarin 2 mg fiiyhdPlgwjh7URHHHggvn June 27, 2025 12:00amComplies with drug therapyPioglitazone 30 mg tablet Thqqrs81GJZFUgbdoGxrayxebs 12th, 2025 12:00amComplies with drug therapyOxycodone 5 mg aikskhJqhcfj0YSKQ.AVYARFT1Rybnhwxnv 12th, 2025 12:00am5 mg orally as directed;Complies with drug therapyAmiodarone 200 mg qrhonxGoafgb151EHEVIhyvs August 13, 2025 2:19pmComplies with drug therapyBuspirone 5 mg tablet Tzyfhyztxesa8QZEVEtwqr daily as needed for zvujdhn76991Mxomrloue 2024 12:00amOctober 2024 8:51amGeneralized anxiety disorder with panic attacks Generalized anxiety disorder Panic disorder [episodic paroxysmal anxiety]Ferrous Sulfate 325 mg (65 mg iron) wahkwkFpizkt491MPMBKcdttTmwsrrk 2024 12:00amComplies with drug therapy Cyanocobalamin (Vitamin B-12) 1,000 mcg pgkfpdqNdjiwl5317KOHYFLkznhRcwezoa 2024 12:00amComplies with drug therapy Immunizations Immunization Event Date Not Given Reason Dose Number Medical Reviewer Lot Number Reason(s) Given Vaccine Information Statement (VIS) Detail Administration Location COVID-19 Ad26.COV2.S ([employer]) December 24, 2020 [facility] AidCOVID-19 mRNA-1273 (Moderna)August 18OVID-19 mRNA-1273 (Moderna)January 192COVID-19 mRNA Bivalent Booster (Pfizer)August 112COVID-19 (PFIZER) 12Y and olderNovember neumococcal Conjugate Vaccine, 13 valentOctober 2018Pneumococcal Polysacc. Vaccine, 23 valentNovember 2019Trivalent Influenza VaccineSeptember 2019 Medical Equipment Device Date Implanted Device Details Multiple peripheral artery s tent, bare-metal March 09, 2021 [employer]: [id number] Issuing Agency: [employer] Device Id: [id number] Expiration Date: 2023-12-08 Serial Number: [id number] Relevant Diagnostic Tests and/or Laboratory Data Laboratory Results Test Collection Date/Time Result Date/Time Result Interpretation Reference Range Result Comment Performing Site Bedside Hemoglobin A1c July 14, 2025 4:39pm Sep tember 2024 4:39pm 8.2 % Vital Signs Vital Reading Result Reference Range Collection Date/Time Height 63 [in_i] July 14, 2025 4:39dpSzbtym50.77 kgSeptember 2024 4:25pmBody Ireosfbubyd41.5 [degF]97.6-99.0September 2024 4:25pmHeart Rate65 /min 60-100September 2024 4:25pmRespiratory rate22 /gfe00-62Lzhgvkqpy 2024 4:25pmOxygen saturation by Pulse xojlmdwl25 %95-100September 2024 4:25pmBP Dbdbyseg568 mm[Hg]100-140Sept2024 4:25pmBP Jchnazdtv77 mm[Hg]60-100September 2024 4:25pmBMI (Body Mass Index)34.2 kg/h8Rtexjhijn 2024 4:41moNxqdni69 [in_i]August 13, 2025 1:90jtIgyevc90.72 kgOctober 2024 1:49pmBody Nhnaypgaskk74.8 [degF]97.6-99.0October 2024 1:49pm Heart Rate70 /nst07-233Sitfpmt 2024 1:49pmRespiratory rate16 /yed86-78 August 13, 2025 1:49pmOxygen saturation by Pulse fuvjuokm76 %95-100October 2024 1:49pmBP Yrxiisiu281 mm[Hg]100-140October 2024 1:49pmBP Gezutqgas91 mm[Hg]60-100October 2024 1:49pmBMI (Body Mass Index)33.5 kg/m2 August 13, 2025 1:49pm Advance Directives Advance Directive Response Recorded Date/ Time Advance Directives No March 04 1:18pm Insurance Providers Guarantor Darin Thacker Address [address] [facility] [address]Mhzzonq Info.Home Phone: Coverage Status Update:2025 Payer Group Member ID Coverage Type Subscriber Relationship to Subscriber Effective Date Expiration Date Medicare [id number]: [id number] [address] [facility] [address] Home Phone: Email: [id number] Insurance [address] [place] [address] [address] Work Phone: [phone]: [id number] [address] [place] [address] Home Phone: Email: [id number] Id: [id number] Kedar Id: [id number] [address] [place] [address] Home Phone: HHCAP/HFA/FAP Active 25% Thru 08-03-13 [facility] [address] Work Phone: [phone] Kedar Id: [id number] [address] [place] [address] Home Phone: Email: [id number] Encounters Encounter Location(s) Arrival/Admit Date Discharge/Departure Date Discharge/Departure Disposition Provider(s) Departed Physician/ Provider Office Visit -[facility] July 14, 2025 3:47pm July 14, 2025 4:55pm Discharged to home care or self care (routine discharge) ALBARO Jennings Departed Physician/ Provider Office Visit -[facility] August 13, 2025 1:33pm August 13, 2025 2:34pm Discharged to home care or self care (routine discharge) ALBARO Jennings Recent Diagnosis Onset Date Admit Date Essential hypertension Unknown July 14, 2025 3:47pm Hx of CABG Unknown July 14, 2025 3:47pm Nicotine dependence Unknown July 142024 3:47pm Panic attack Unknown July 14, 2025 3:47pm S/P aortic valve replacement Unknown Jun 3:47pm 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, without long-term Unknown July 14, 2025 3:47 pm Enlarged prostate Unknown August 13, 2025 1:33pm Essential hypertension Unknown July 172024 1:33pm Hx of CABG Unknown August 13 1:33pm Intra-abdominal lymphadenopathy Unknown August 13, 2025 1:33pm Nicotine dependence Unknown July 1:33pm Panic attack Unknown August 13 1:33pm S/P aortic valve replacement Unknown Jul kathryn2024 1:33pm Assessments Diagnosis Onset Date Resolution Status Admit Date Essential hypertension acuteSept2024 3:47pmHx of CABGacuteSept2024 3:47pm Nicotine dependenceacuteSept2024 3:47pmPanic attackacuteSept2024 3:47pmS/P aortic valve replacementacuteSept2024 3:47pm Type 2 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, without long-termacute July 14, 2025 3:47pmEnlarged prostateacuteOctcr[facility] 2024 1:33pm Essential hypertensionacuteOctcr[facility] 2024 1:33pmHx [facility]acute[facility] 20[facility] 1:33pmIntra-abdominal lymphadenopathyacuteOctcrittenden county hospital 2024 1:33pm Nicotine dependenceacuteOctcrittenden county hospital 2024 1:33pmPanic attackacuteSelect Specialty Hospital 2024 1:33pmS/P aortic valve replacementacuteOctcrittenden county hospital 2024 1:33pm Plan of Treatment Author Tonya Dye [facility]Aut[facility] hospitalOctcritt[facility] 2024 2:24pmlast visit started on buspar, this did not help is feeling better I did switch to sertraline and prn vistaril continue with cardiology is on coumadin Please check blood pressure daily and record DASH diet Limit caffeine Take medication as directed Contact office if chest pain, pressures, dizziness, shortness of breath, swelling in the legs Recommend slow position changes if you develop dizziness with position changes current meds: amlodipine, b shima, continue with cardiology The patient has been advised of the risks of continued smoking: stroke, [place], all forms of cancer, lung disease, and . Options for quitting: cold turkey, hypnosis, acupuncture, nicotine replacement meds (gum, lozenges, and patches), as well as oral meds: buproprion or varenicline . At this time pt is encouraged to evaluate their goals for wanting to quit smoking, and reach out to provider when ready to start this process noted on CT abd/pelvis from 04/12/25, deforms the base of bladder Author Tonya Dye [facility] HospitalAuthoredSept2024 5:00pmwill trial buspar 5mg q 12 prn anxiety, fu in 3 weeks for recheck Check blood sugars daily, notify the office if <70 or > 200. Take medications (pills or insulin) as directed. Monitor for s/s of low blood sugar (sweaty, dizziness, nausea, vomiting, or shakiness). Watch for increase thirst, urination, and appetite as these can be signs of high blood sugar. Inspect your feet frequently monitor for open wounds, wear proper fitting shoes as well. Pt should attempt to remain as physical active as chronic conditions allow, as well as trying to follow a diet lower in carbohydrates, and simple sugars. current meds: a1c: 8.2% 07/14/25, 7.9% on 03/27/25 continue with cardiology is on coumadin Please check blood pressure daily and record DASH diet Limit caffeine Take medication as directed Contact office if chest pain, pressures, dizziness, shortness of breath, swelling in the legs Recommend slow position changes if you develop dizziness with position changes current meds: amlodipine, b shima, continue with cardiology The patient has been advised of the risks of continued smoking: stroke, [place], all forms of cancer, lung disease, and . Options for quitting: cold turkey, hypnosis, acupuncture, nicotine replacement meds (gum, lozenges, and patches), as well as oral meds: buproprion or varenicline . At this time pt is encouraged to evaluate their goals for wanting to quit smoking, and reach out to provider when ready to start this process Future Tests Future scheduled test information is unavailable Pending Tests Test Name Ordered Date Scheduled Date CT abdomen pelvis w con August 13, 2025 12:41 pm Future Visits Future appointment information is unavailable Future Procedures Future procedure information is unavailable Future Medications Future medication information is unavailable Patient Instructions Patient instructions are unavailable
--- OUTSIDE RECORDS SUMMARY | 2025-08-19 12:20 | XMS_ITS | Encounter Summary ---
Author Organization [facility] [employer] Address [id number] [address] [place] [address] Care Team Providers Care Fan Mail Editor Name Role Phone Tonya Dye CHUCKING MACHINE SET UP OPERATOR-PATTERN GENERATOR OPERATOR Primary Care Provider Encounter Details DateTypeDepartmentCare Team (Latest Contact Info)Lifwyqtbhzk80/31/2025Telephone [facility] - Pharmacy Medication Management [address] [place] [phone] Medication Management, [facility] [address] [place] [phone] Social History Tobacco UseTypesPacks/DayYears UsedDateSmoking Tobacco: Every DayCigarettes0.530 Smokeless Tobacco: Never Comments:reports down to 10 cigarettes a day 11/25/21 Alcohol UseStandard Drinks/WeekCommentsNot Currently0 (1 standard drink = 0.6 oz pure alcohol)[facility] UtilitiesAnswerDate RecordedIn the past 12 months has the [employer], gas, oil, or water [employer] threatened to shut off services in your home?No06/13/2025UDIT-CAnswerDate RecordedQ1: How often do you have a drink containing alcohol?Never06/13/2025Q2: How many drinks containing alcohol do you have on a typical day when you are drinking?Patient does not drink06/13/2025Q3: How often do you have six or more drinks on one occasion?Never06/13/2025PHQ-2 AnswerDate RecordedTotal Eiuuj257PRAPARE - TransportationAnswerDate RecordedIn the past 12 months, [...] as a part of a household?No06/13/2025 ChildcareAnswerDate PjukyitwXouatqxsdHwelmeg64/12/2019EmploymentAnswerDate PcyhvjzjNtnbnccvwkOipensl35/12/2019Hunger ScreeningAnswerDate RecordedWithin the past 12 months we worried whether our food would run out before we got money to buy more.Never True07/15/2025Within the past 12 months the food we bought just didn't last and we didn't have money to get more.Never True07/15/2025Purpose - LifeAnswerDate RecordedPurpose and direction in xlfhEdhutxm36/11/2021Sex and Gender InformationValueDate RecordedSex Assigned at BirthNot on fileLegal Sex Male05/21/2014 11:30 AM EDTGender IdentityNot on fileSexual OrientationNot on filedocumented as of this encounter Miscellaneous Notes * Telephone Encounter - Fiona Collins - 08/15/2025 2:57 PM EDT Hiren from [facility] P:[phone] option 3 Ref# [id number]. Please call back to clarify the warfarin refill request for 2 mg sent on 08/11/25. * Telephone Encounter - Cammy Garcia PharmD - 08/15/2025 2:57 PM EDT Noted. Did call [facility] and spoke to Cecilia Schmidt ([employer]) who states that there were two directions sent on the last rx for warfarin. New rx e-prescribed to [facility] with dosing that reflects what patient is taking at this time. documented in this encounter Plan of Treatment DateTypeDepartmentCare Team (Latest Contact Info)Xoavqkfetcd02/10/2025 2:00 PM ESTFollow Up Anticoagulation [facility] - [facility] Medication Management [address] [place] [address] 09/15/2025 8:30 AM ESTAncillary Procedure [facility] [address] [facility] [address] [place] [address] Tamara Rebolledo MD [address] [place] [address] 03/04/2026 2:15 PM EDTAppointment [facility] - V[facility] [address] [place] [address] Robyn Frazier, CHUCKING MACHINE SET UP OPERATOR-PATTERN GENERATOR OPERATOR [address] [facility] [place] [address] 03/04/2026 3:00 PM EDTAppointment [facility] [address] [facility] [place] [address] Robyn Frazier, CHUCKING MACHINE SET UP OPERATOR-PATTERN GENERATOR OPERATOR [address] [facility] [place] [address] 04/02/2026 11:50 AM EDTOffice Visit [facility] [address] [place] [address] Yaneli Howell MD [address], [address] [address] documented as of this encounter Goals GoalPatient Goal TypeAssociated ProblemsRecent ProgressPatient-Stated?Author <enter goal here> Gabriella Scott, RN Note: Evaluation of progress towards goal: patient progressing toward safe discharge. documented as of this encounter Visit Diagnoses Diagnosis S/P CABG (coronary artery bypass graft) Postsurgical aortocoronary bypass status S/P AVR (aortic valve replacement) Heart valve replaced by other means documented in this encounter Additional Health Concerns AssessmentNoted TimePHQ-9 Depression Total Score: 3:57 PM EDTA Body Mass Index follow-up plan has been documented for the wzqmwty4611/14/2019 2:01 PM ESTdocumented as of this encounter Care Teams Team MemberRelationshipSpecialtyStart DateEnd Date Tonya Dye, CHUCKING MACHINE SET UP OPERATOR-PATTERN GENERATOR OPERATOR PCP - GeneralNurse Ycvxgenlgipm30/23/21documented as of this encounter
--- OUTSIDE RECORDS SUMMARY | 2025-08-19 12:20 | XMS_ITS | Encounter Summary ---
Author Organization [facility] tem Address [facility] [place] [id number] [address] [place] [address] Care Team Providers Care Director Hair Name Role Phone Tonya Dye TOWER TECHNICIAN-WEB PAGE DEVELOPER Primary Care Provider Reason for Visit * ReasonCommentsMed Change Request Encounter Details DateTypeDepartmentCare Team (Latest Contact Info)Eyylxorphon21/28/2025Refill [facility] - Pharmacy Medication Management [address] [place] [address] Ronnell Siu MD [address] [place] [address] S/P CABG (coronary artery bypass graft); S/P AVR (aortic valve replacement) Social History Tobacco UseTypesPacks/DayYears UsedDateSmoking Tobacco: Every DayCigarettes0.530 Smokeless Tobacco: Never Comments:reports down to 10 cigarettes a day 11/25/21 Alcohol UseStandard Drinks/WeekCommentsNot Currently0 (1 standard drink = 0.6 oz pure alcohol)[facility] UtilitiesAnswerDate RecordedIn the past 12 months has the electric, gas, oil, or water company threatened to shut off services in your home?No06/13/2025UDIT-CAnswerDate RecordedQ1: How often do you have a drink containing alcohol?Never06/13/2025Q2: How many drinks containing alcohol do you have on a typical day when you are drinking?Patient does not drink06/13/2025Q3: How often do you have six or more drinks on one occasion?Never06/13/2025PHQ-2 AnswerDate RecordedTotal Pvesa704PRAPARE - TransportationAnswerDate RecordedIn the past 12 months, [...] as a part of a household?No06/13/2025 ChildcareAnswerDate DnrwoacoIvzrrwcqaCclgsbf31/12/2019EmploymentAnswerDate PmurweqgWvhdlahtcwIvqqotc03/12/2019Hunger ScreeningAnswerDate RecordedWithin the past 12 months we worried whether our food would run out before we got money to buy more.Never True07/15/2025Within the past 12 months the food we bought just didn't last and we didn't have money to get more.Never True07/15/2025Purpose - LifeAnswerDate RecordedPurpose and direction in oxpoLyndyqw15/11/2021ex and Gender InformationValueDate RecordedSex Assigned at BirthNot on fileLegal Sex Male05/21/2015 11:30 AM EDTGender IdentityNot on fileSexual OrientationNot on filedocumented as of this encounter Plan of Treatment DateTypeDepartmentCare Team (Latest Contact Info)Mzkeacwljfl70/10/2025 2:00 PM ESTFollow Up Anticoagulation [facility] - [facility] Medication Management [address] [place] [address] 09/15/2025 8:30 AM ESTAncillary Procedure [facility] Cardiology [address] [place] [address] Tamara Rebolledo MD [address] [place] [address] 03/04/2026 2:15 PM EDTAppointment [facility] [address] [place] [address] Robyn Frazier, TOWER TECHNICIAN-WEB PAGE DEVELOPER [address] [facility] [place] [address] 03/04/2026 3:00 PM EDTAppointment [facility] Vascular [address] [place] [facility] [place] [address] Robyn Frazier, TOWER TECHNICIAN-WEB PAGE DEVELOPER [address] [facility] [place] [address] 04/02/2026 11:50 AM EDTOffice Visit [facility] [address] [place] [address] Yaneli Howell MD [address], [address] [address] documented as of this encounter Goals GoalPatient [...] follow-up plan has been documented for the gadhfgt7311/14/2019 2:01 PM ESTdocumented as of this encounter Care Teams Team MemberRelationshipSpecialtyStart DateEnd Date Tonya Dye, TOWER TECHNICIAN-WEB PAGE DEVELOPER PCP - GeneralNurse Vsaaoozbrfvr94/23/21documented as of this encounter
--- OUTSIDE RECORDS SUMMARY | 2025-08-19 12:20 | XMS_ITS | Encounter Summary ---
Author Organization [facility] tem Address [id number] [address] [place] [address] Care Team Providers Care Director Of Kids Name Role Phone Tonya Dye RE EXAMINER-UNDERGROUND CONDUIT INSTALLER Primary Care Provider Encounter Details DateTypeDepartmentCare Team (Latest Contact Info)Tpoxllsuhac02/21/2025Results Follow-Up [facility] [address] [place] [address] Tung Sommers RN Echo complete W/O contrast Social History Tobacco UseTypesPacks/DayYears UsedDateSmoking Tobacco: Every DayCigarettes0.530 Smokeless Tobacco: Never Comments:reports down to 10 cigarettes a day 11/25/21 Alcohol UseStandard Drinks/WeekCommentsNot Currently0 (1 standard drink = 0.6 oz pure alcohol)[facility] UtilitiesAnswerDate RecordedIn the past 12 months has the [employer], oil, or water [employer] threatened to shut off services in your home?No06/13/2025UDIT-CAnswerDate RecordedQ1: How often do you have a drink containing alcohol?Never06/13/2025Q2: How many drinks containing alcohol do you have on a typical day when you are drinking?Patient does not drink06/13/2025Q3: How often do you have six or more drinks on one occasion?Never06/13/2025PHQ-2 AnswerDate RecordedTotal Ozizl938PRAPARE - TransportationAnswerDate RecordedIn the past 12 months, [...] as a part of a household?No06/13/2025 ChildcareAnswerDate HxkrbnjjQjckuhnuiDupqume21/12/2019EmploymentAnswerDate KcbwkpsgVxdckbibnnXmusied95/12/2019Hunger ScreeningAnswerDate RecordedWithin the past 12 months we worried whether our food would run out before we got money to buy more.Never True07/15/2025Within the past 12 months the food we bought just didn't last and we didn't have money to get more.Never True07/15/2025Purpose - LifeAnswerDate RecordedPurpose and direction in vxzyPworyvh98/11/2021ex and Gender InformationValueDate RecordedSex Assigned at BirthNot on fileLegal Sex Male05/21/2015 11:30 AM EDTGender IdentityNot on fileSexual OrientationNot on filedocumented as of this encounter Plan of Treatment DateTypeDepartmentCare Team (Latest Contact Info)Nhjgurmylfn44/10/2025 2:00 PM ESTFollow Up Anticoagulation [facility] - Pharmacy Medication Management [address] [place] [address] 09/15/2025 8:30 AM ESTAncillary Procedure [facility] Cardiology [address] [place] [address] Tamara Rebolledo MD [address] [place] [address] 03/04/2026 2:15 PM EDTAppointment [facility] - Vascular [address] [place] [phone] Robyn Frazier, RE EXAMINER-UNDERGROUND CONDUIT INSTALLER [address] [facility] [place] [address] 03/04/2026 3:00 PM EDTAppointment [facility] - Vascular [address] [place] [address] Robyn Frazier, RE EXAMINER-UNDERGROUND CONDUIT INSTALLER [address] [facility] [place] [address] 04/02/2026 11:50 AM EDTOffice Visit [facility] [address] [place] [address] Yaneli Howell MD [address], [address] [address] documented as of this encounter Goals GoalPatient Goal TypeAssociated ProblemsRecent ProgressPatient-Stated?Author <enter goal here> Gabriella Scott, SARAY Note: Evaluation of progress towards goal: patient progressing toward safe discharge. documented as of this encounter Visit Diagnoses Not on filedocumented in this encounter Additional Health Concerns AssessmentNoted TimePHQ-9 Depression Total Score: 3:57 PM EDTA Body Mass Index follow-up plan has been documented for the apvrxkz6511/14/2019 2:01 PM ESTdocumented as of this encounter Care Teams Team MemberRelationshipSpecialtyStart DateEnd Date Tonya Dye, RE EXAMINER-UNDERGROUND CONDUIT INSTALLER PCP - GeneralNurse Njhcfgrwxflb10/23/21documented as of this encounter
--- OUTSIDE RECORDS SUMMARY | 2025-08-19 12:21 | XMS_ITS | Clinical Summary ---
Author Organization [facility] Address [address] [place] [address] Care Team Providers Care Floor Layer Tile Name Role Phone Unavailable Primary Care Provider Unavailabl e Social History Tobacco UseTypesPacks/DayYears UsedDateSmoking Tobacco: Never AssessedUT Safety & EnvironmentAnswerDate RecordedFear of Current or Ex-PartnerNot on file 12/07/2023Emotionally AbusedNot on file12/07/2023hysically AbusedNot on file 12/07/2023Sexually AbusedNot on file4Physically or Sexually AbusedNot on file12/07/2023Sex and Gender InformationValueDate RecordedSex Assigned at BirthNot on fileLegal GyvHjcs2904/13/2022 11:05 PM EDTGender IdentityNot on file Sexual OrientationNot on file Plan of Treatment Health MaintenanceDue DateLast DoneCommentsCT Vaxgfuvghiix1950Colonoscopy 1950olorectal Cancer Gbbcmeepd1950FIT-DNA1950FIT1950 FOBT1950Medicare Annual Wellness (AWV)1950 3542Cdgmhunufohwm1950 Depression Kznatoqrv44/10/1963Adult Rmmrqfd7503/25/1973Pneumococcal Vaccine: 50+ Years (1 of 1 - PCV)2001Zoster Vaccines (1 of 2)2001Fall Risk Vfpkpjmtw82/10/2016COVID-19 Vaccine (1 - 2024- season)2025Influenza Vaccine (#1)2025HIB VaccinesAged OutNo longer eligible based on patient's age to complete this topicHPV VaccinesAged OutNo longer eligible based on patient's age to complete this topicIPV VaccinesAged OutNo longer eligible based on patient's age to complete this topicMeningococcal B VaccineAged OutNo longer eligible based on patient's age to complete this topicMeningococcal VaccineAged OutNo longer eligible based on patient's age to complete this topicRotavirus VaccinesAged OutNo longer eligible based on patient's age to complete this topic Insurance * Guarantor: Darin Thacker TypeRelation to PatientDate of BirthPhone Billing AddressPersonal/ZtdmxpZfcc1950 [facility] [address] [place] [id number]
--- OUTSIDE RECORDS SUMMARY | 2025-08-19 12:21 | XMS_ITS | Encounter Summary ---
Author Organization [facility] Address [address] [place] [address] Care Team Providers Care Waterworks Chief Engineer Name Role Phone Tonya Dye BEATER OUT LEVELING MACHINE Unavailable [phone] Mumtaz Jensen MD Primary Care Provider [phone] Tonya Dye BEATER OUT LEVELING MACHINE Unavailable [phone] Encounter Details DateTypeDepartmentCare Team (Latest Contact Info)Dvehbwuklmq58/09/2024Clinisync Result Encounter [facility] External Department Unsolicited Provider, Generic External Data Social History Tobacco UseTypesPacks/DayYears UsedDateSmoking Tobacco: Every DayCigarettes Smokeless Tobacco: NeverAlcohol UseStandard Drinks/WeekCommentsNever0 (1 standard drink = 0.6 oz pure alcohol)PHQ-2AnswerDate RecordedPatient Health Questionnaire-2 Jyofe161Sex and Gender InformationValueDate RecordedSex Assigned at BirthNot on fileLegal YsoYdwq4512/28/2022 10:09 PM EDTGender Identity Not on fileSexual OrientationNot on filedocumented as of this encounter Functional Status * Over the past 2 weeks, how often have you been bothered by any of the following problems?QuestionAnswerDate of AssessmentAuthorLittle interest or pleasure in doing thingsNot at all03/27/2025 2:22 PM Alka Bruce MA Feeling down, depressed, or hopelessNot at all03/27/2025 2:22 PM Alka Bruce MAPatient Health Questionnaire-2 Ocjgh317 2:22 PM Alka Kramer MA * QuestionAnswerDate of AssessmentAuthorTrouble falling or staying asleep, or sleeping too muchSeveral days03/27/2025 2:22 PM Alka Bruce MA Feeling tired or having little energySeveral days03/27/2025 2:22 PM EDT Alka Ribera MAPoor appetite or overeatingNot at all03/27/2025 2:22 PM Alka Bruce MAFeeling bad about yourself - or that you are a failure or have let yourself or your family downNot at all03/27/2025 2:22 PM Alka Bruce MATrouble concentrating on things, such as reading the newspaper or watching televisionSeveral days03/27/2025 2:22 PM Alka Bruce, MAMoving or speaking so slowly that other people could have noticed? Or the opposite - being so fidgety or restless that you have been moving around a lot more than usual.Not at all03/27/2025 2:22 PM Alka Bruce MAThoughts that you would be better off or hurting yourself in some wayNot at all03/27/2025 2:22 PM Alka Bruce MAPatient Health Questionnaire-9 Nuilq501 2:22 PM Alka Bruce MA * Geriatric Depression Scale (Short Version)QuestionAnswerDate of Assessment AuthorAre you basically satisfied with your life?Yes02/27/2024 11:41 AM EDAlka Villareal MAHave you dropped many of your activities and interests? No02/27/2024 11:41 AM Alka Bruce MADo you feel that your life is empty?No02/27/2024 11:41 AM Alka Bruce MADo you often get bored?No 02/27/2024 11:41 AM Alka Bruce MAAre you in good spirits most of the time?Yes02/27/2024 11:41 AM Alka Bruce MAAre you afraid that something bad is going to happen to you?No02/27/2024 11:41 AM Alka Bruce MADo you feel happy most of the time?Yes02/27/2024 11:41 AM EDT Alka Ribera MADo you often feel helpless?No02/27/2024 11:41 AM EDT Alka Ribera MADo you prefer to stay at home, rather than going out and doing new things?Yes02/27/2024 11:41 AM Alka Bruce MADo you feel you have more problems with memory than most?No02/27/2024 11:41 AM LEONORT Alka Ribera MADo you think it is wonderful to be alive now?Yes 02/27/2024 11:41 AM Alka Bruce MADo you feel pretty worthless the way you are now?No02/27/2024 11:41 AM Alka Bruce MADo you feel full of energy?No02/27/2024 11:41 AM Alka Bruce MADo you feel that your situation is hopeless?No02/27/2024 11:41 AM Alka Bruce MADo you think that most people are better off than you are?No02/27/2024 11:41 AM Alka Bruce MAGeriatric Depression Scale (Short Version) Total2 02/27/2024 11:41 AM Alka Bruce MA documented as of this encounter Plan of Treatment Not on file documented as of this encounter Procedures Procedure NamePriorityDate/TimeAssociated DiagnosisCommentsSEGMENTAL BLOOD SPPTWOUY42/09/2024 2:35 PM EDT documented in this encounter Results * SEGMENTAL BLOOD PRESSURE (01/23/2024 2:35 PM EDT)Anatomical RegionLaterality ModalityRadiographic ImagingSpecimen (Source)Anatomical Location / Laterality Collection Method / VolumeCollection TimeReceived Time01/23/2024 2:35 PM EDT Narrative 01/23/2024 11:21 PM EDT [facility] ?[address] ? [place] [address] ? Cardiology Report ? Signed ? Patient: MYNOR,TERRI J ?MR#: [id number] ?? : 1950 ?Acct:[id number] ?? Age/Sex: 73 / M ?ADM Date: 01/23/24 ?? Loc: CARD ? Attending Dr: OMID RICKS ? Ordering Physician: OMID RICKS ?? Date of Service: 01/23/24 ?? Procedure(s): CA segmental UE or LE AIMEE ?? Accession Number(s): [id number] ? cc: OMID RICKS ; Tonya Dye BEATER OUT LEVELING MACHINE ?[facility] ? Test Date: ?2024-01-23 ?? Pat Name: ? TERRI MYNOR ? Department: ? Room: ? - ?? Gender: ? Male ? Traffic Control Specialist: ? : ?1950 ? Requested By: OMID RICKS ?? Order Number: [id number] ?Reading MD: ?? HARRISON ??BALL ? Interpretive Statements ?? Monophasic doppler waveforms. ?? PVR waveforms with delayed upstroke, blunted amplitude and loss of dicrotic ?? notch. ?? Right: ?? - no significant pressure gradient between cuffs ?? - abnormal MALATHI ?? Left: ?? - significant pressure gradient between the brachial and thigh cuff ?? - significant pressure gradient between the calf and DP cuff ?? - abnormal MALATHI and TBI ? Impression: ?? - significant arterial disease in the right lower extremity with mild ?? hemodynamic impairment of the right lower extremity at rest (MALATHI 0.95) ?? - significant inflow (femoral artery or above) and outflow (tibioperoneal) ?? arterial disease with moderate hemodynamic impairment of the left lower ?? extremity at rest (MALATHI 0.62) ? Electronically Signed On 01-23-2024 23:20:38 EDT by HARRISON ??NITZA ? Dictated By: ?Harrison Goddard D.O. ? Signed By: ?01/23/242320 ?04/09/24 2321 ? DD/ 1435 ? TD/TT: ? Customs Agent: Procedure Note Radiology, Radiologist, MD - 01/23/2024 [place] [address] Cardiology Report Signed Patient: TERRI LOWE JMR#: [id number] : 1950cct:[id number] Age/Sex: 73 / MADM Date: 01/23/24 Loc: CARD Attending Dr: OMID RICKS Ordering Physician: OMID RICKS Date of Service: 01/23/24 Procedure(s): CA segmental UE or LE AIMEE Accession Number(s): [id number] cc: OMID RICKS ; Tonya Dye NP [facility] Test Date: 2024-01-23 Pat Name: TERRI LOWE Department: Room: - Gender: Male Traffic Control Specialist: : 1950 Requested By: OMID RICKS Order Number: [id number] Reading MD: HARRISON GODDARD Interpretive Statements Monophasic [...] GODDARD Dictated By: Harrison Goddard D.O. Signed By:01/23/242320 04/09/24 232 DD/ 1435 TD/TT: Customs Agent: Authorizing ProviderResult TypeResult StatusGeneric External Data ProviderIMG XR PROCEDURESFinal Result documented in this encounter Visit Diagnoses Not on filedocumented in this encounter Care Teams Team MemberRelationshipSpecialtyStart DateEnd Date Mumtaz Jensen MD [facility] - [facility]11/28/23 Tonya Dye NP [address] [place] [address] PCP - ACO [facility]11/22/24 Tonya Dye NP Referring PhysicianNurse Practitioner03/09/23documented as of this encounter
--- OUTSIDE RECORDS SUMMARY | 2025-08-19 12:21 | XMS_ITS | Encounter Summary ---
Author Organization [facility] Address [address] [place] [address] Care Team Providers Care Housekeeper Manager Name Role Phone Tonya Dye FOOD BROKER Unavailable [phone] Mumtaz Jensen MD Primary Care Provider [phone] Tonya Dye FOOD BROKER Unavailable [phone] Encounter Details DateTypeDepartmentCare Team (Latest Contact Info)Nokyibwnhzf19/22/2024Clinisync Result Encounter [facility] External Department Unsolicited Lynn Aceves MD [address] [facility] [address] [place] [address] Social History Tobacco UseTypesPacks/DayYears UsedDateSmoking Tobacco: Every DayCigarettes Smokeless Tobacco: NeverAlcohol UseStandard Drinks/WeekCommentsNever0 (1 standard drink = 0.6 oz pure alcohol)PHQ-2AnswerDate RecordedPatient Health Questionnaire-2 Motam651Sex and Gender InformationValueDate RecordedSex Assigned at BirthNot on fileLegal ZwrMvyd7612/28/2022 10:09 PM EDTGender Identity Not on fileSexual OrientationNot on filedocumented as of this encounter Functional Status * Over the past 2 weeks, how often have you been bothered by any of the following problems?QuestionAnswerDate of AssessmentAuthorLittle interest or pleasure in doing thingsNot at all03/27/2025 2:22 PM Alka Bruce MA Feeling down, depressed, or hopelessNot at all03/27/2025 2:22 PM Alka Bruce MAPatient Health Questionnaire-2 Edpnk426 2:22 PM LEONORT Alka Ribera MA * QuestionAnswerDate of AssessmentAuthorTrouble falling or staying asleep, or sleeping too muchSeveral days03/27/2025 2:22 PM Alka Bruce MA Feeling tired or having little energySeveral days03/27/2025 2:22 PM LEONORT Alka Ribera MAPoor appetite or overeatingNot at [...] 2:22 PM Alka Bruce MAPatient Health Questionnaire-9 Zpzlu341 2:22 PM Alka Bruce MA * Geriatric Depression Scale (Short Version)QuestionAnswerDate of Assessment AuthorAre you basically satisfied with your life?Yes02/27/2024 11:41 AM Alka Kramer MAHave you dropped many of your activities [...] problems with memory than most?No02/27/2024 11:41 AM EDT Alka Ribera MADo you think it is [...] as of this encounter Procedures Procedure NamePriorityDate/TimeAssociated DiagnosisCommentsMRI HEAD/BRAIN WO/W CONTR02/05/2024 4:48 PM EDT documented in this encounter Results * MRI HEAD/BRAIN WO/W CONTR (02/05/2024 4:48 PM EDT)Anatomical RegionLaterality ModalityRadiographic ImagingSpecimen (Source)Anatomical Location / Laterality Collection Method / VolumeCollection TimeReceived Time02/05/2024 4:48 PM EDT Narrative 02/05/2024 4:51 PM EDT [facility] ?[address] ? [place], [place] [address] ? Magnetic Resonance Report ? Signed ? Patient: MYNOR,TERRI J ?MR#: [id number] ?? : 1950 ?Acct:[id number] ?? Age/Sex: 73 / M ?ADM Date: 02/05/24 ?? Loc: LAB ? Attending Dr: Lynn Aceves M.D. ? Ordering Physician: Lynn Aceves M.D. ?? Date of Service: 02/05/24 ?? Procedure(s): MR head/brain wo/w con ?? Accession Number(s): [id number] ? cc: Tonya Dye NP; Lynn Aceves M.D. ? [facility] ? [address] ? [place] [address] ? Patient Name: ?? TERRI LOWE ? MRN: [facility]:[id number] ? date: 1950 ?Sex: M ?? Assigned Patient Location: LAB ?? Current Patient Location: LAB ?? Accession/Order Number: [id number] ?? Exam Date: 02/05/2024 ??15:00 ?Report Date: 02/05/2024 ??16:48 ? At the request of: ?? LYNN ??RUTH ANN ? Procedure: ??MR head/brain wo/w con ? MR head/brain wo/w con, 02/05/2024 3:00 PM EDT ? INDICATION: Dysomia R43.9 ? COMPARISON: Prior CT of the sinuses dated 12/05/2023 ? TECHNIQUE: Multiplanar, multisequential MRI images of brain were obtained ?? without and with injection of contrast. ? FINDINGS: ? The cerebral sulci as well as ventricular system are appropriate for age. ? There is no restricted diffusion. Hyperintensities on T2 and FLAIR images in ?? the suresh radiata and centrum semiovale with sparing of U fibers are ?? nonspecific, statistically most likely consistent with microvascular ischemic ?? changes. ? There is no intracranial mass, mass effect, midline shift, intra or ?? extra-axial ?? fluid collection or large hemorrhage. No abnormal enhancing lesion is noted. ?? No ?? abnormality of the olfactory nerves. ? Normal flow-void in the intracranial vessels is noted. ? The visualized portions of orbits, mastoid air cells as well as paranasal ?? sinuses are unremarkable. ? MR/MR head/brain wo/w con ?? IMPRESSION: ? No acute intracranial process is noted. No definite radiological finding to ?? explain patient's symptoms. ? Electronically authenticated by: ARVIND ??PARVA ?? Date: 02/05/2024 ??16:48 ? Dictated By: ?Raj,Arvind M.D. ? Signed By: ?02/05/24 1651 ? DD/ 1648 ? TD/TT: ? Track Maintainer: Procedure Note Radiology, Radiologist, - 02/05/2024 [place] [address] Magnetic Resonance Report Signed Patient: TERRI LOWE R#: [id number] : 1950cct:[id number] Age/Sex: 73 / MADM Date: 02/05/24 Loc: LAB Attending Dr: Lynn Aceves M.D. Ordering Physician: Lynn Aceves M.D. Date of Service: 02/05/24 Procedure(s): MR head/brain wo/w con Accession Number(s): [id number] cc: Tonya Dye FOOD BROKER; Lynn Aceves M.D. [facility] [place] [id number] Patient Name: TERRI LOWE MRN: [id number] date: 1950 Sex: M Assigned Patient Location: LAB Current Patient Location: LAB Accession/Order Number: [id number] Exam Date: 02/05/2024 15:00 Report Date: 02/05/2024 16:48 At the request of: LYNN ACEVES Procedure: MR head/brain wo/w con MR [...] Anthony M.D. Signed By:02/05/241650 DD/ 47 TD/TT: Track Maintainer: Authorizing ProviderResult TypeResult StatusHilary Tucker Aceves MDIMG XR PROCEDURES Final Result documented in this encounter Visit Diagnoses Not on filedocumented in this encounter Care Teams Team MemberRelationshipSpecialtyStart DateEnd Date Mumtaz Jensen MD PCP - GeneralFamily Medicine11/28/23 Tonya Dye NP [address] [place] [address] PCP - ACO [facility]11/22/24 Tonya Dye NP Referring PhysicianNurse Practitioner03/09/23documented as of this encounter
--- OUTSIDE RECORDS SUMMARY | 2025-08-19 12:21 | XMS_ITS | Patient Health Record ---
Author Organization [facility] Address [address], [place] [id number] Care Team Providers Care Quality Analyst/Technical Writer Name Role Phone Loren Luque Unavailable [phone] Allergies Allergen (clinical drug ingredient) Drug/Non Drug Allergy documented on EMR Reaction Allergy Type Onset Date Status PenicillinUnknownDrug AllergyActive Reason For Referral No Information Medications Medication SIG (Take, Route, Frequency, Duration) Notes Start Date End Date Status Tamsulosin HCl 0.4 MG Oral; Duration: 90 Days ActivePantoprazole Sodium 40 MGOral; Duration: 30 DaysActiveMetoprolol Tartrate 50 MGOral; Duration: 90 DaysActiveamLODIPine Besylate 5 MGOral; Duration: 90 DaysActiveglipiZIDE 10 MGOral; Duration: 90 DaysActivemetFORMIN HCl 1000 MGOral; Duration: 90 DaysActiveGabapentin 600 MGOral; Duration: 90 DaysActiveSimvastatin 20 MGOral; Duration: 90 DaysActivePioglitazone HCl 30 MGOral; Duration: 90 Days Active Social History Tobacco Use: Social History Observation Description Date Details (start date - stop date) Current Smoker NA - NA Sex Assigned At : Social History Observation Description Sex Assigned At Male Tobacco Control (Standard) Question Answer Notes Tobacco use: Current smoker Problems Problem Type SNOMED Code ICD Code Onset Dates Problem Status W/U Status Risk Notes Problem Tobacco user (631349233) Cigaret te nicotine dependence without complication (F17.210) ActiveconfirmedProblemChildhood obesity (787243218)BMI (body mass index) pediatric, > 99% for age, obese child, tertiary care intervention (E66.9)Active confirmed Plan Of Treatment No Information Insurance Providers Payer Name Payer Address Payer Phone Subscriber Number Group Number Insured Name Patient Relationship to Insured Coverage Start Date Coverage End Date DMetlife [address] PENNY Umanzor [id number] Darin Thacker Self - patient is the insured 1
--- OUTSIDE RECORDS SUMMARY | 2025-08-19 12:21 | XMS_ITS | Encounter Summary ---
Author Organization [facility] Address [address] [place] [address] Care Team Providers Care Postmaster Name Role Phone Tonya Dye HYDRAULIC REPAIRER Unavailable [phone] Mumtaz Jensen MD Primary Care Provider Tonya Dye HYDRAULIC REPAIRER Unavailable [phone] Encounter Details DateTypeDepartmentCare Team (Latest Contact Info)Xwsobuifpmn15/20/2024Clinisync Result Encounter [facility] Unsolicited Tonya Dye NP [address] [place] [id number] Social History Tobacco UseTypesPacks/DayYears UsedDateSmoking Tobacco: Every DayCigarettes Smokeless Tobacco: NeverAlcohol UseStandard Drinks/WeekCommentsNever0 (1 standard drink = 0.6 oz pure alcohol)PHQ-2AnswerDate RecordedPatient Health Questionnaire-2 [id number] and Gender InformationValueDate RecordedSex Assigned at BirthNot on fileLegal RzvVjes9912/28/2022 10:09 PM EDTGender Identity Not on fileSexual OrientationNot on filedocumented as of this encounter Functional Status * Over the past 2 weeks, how often have you been bothered by any of the following problems?QuestionAnswerDate of AssessmentAuthorLittle interest or pleasure in doing thingsNot at all03/27/2025 2:22 PM Alka Bruce MA Feeling down, depressed, or hopelessNot at all03/27/2025 2:22 PM Alka Bruce MAPatient Health Questionnaire-2 [id number] 2:22 PM Alka Kramer MA * QuestionAnswerDate of AssessmentAuthorTrouble falling or staying asleep, or sleeping too muchSeveral days03/27/2025 2:22 PM Alka Bruce MA Feeling tired or having little energySeveral days03/27/2025 2:22 PM LEONORT Alka Rbiera MAPoor appetite or overeatingNot at all03/27/2025 2:22 [...] 2:22 PM Alka Bruce MAPatient Health Questionnaire-9 Eehnu521 2:22 PM Alka Bruce MA * Geriatric [...] as of this encounter Procedures Procedure NamePriorityDate/TimeAssociated DiagnosisCommentsCT SINUS WO CON 12/05/2023 1:25 PM EST MLR HEMOGLOBIN [id number]/ 1:05 PM EST documented in this encounter Results * CT SINUS WO CON (12/05/2023 1:25 PM EST)Anatomical RegionLateralityModality OtherSpecimen (Source)Anatomical Location / LateralityCollection Method / VolumeCollection TimeReceived Time12/05/2023 1:25 PM EST Narrative 12/05/2023 1:28 PM EST [facility] ?[address] ? [place] [address] ? CT Scan Report ? Signed ? Patient: MYNOR,TERRI J ?MR#: [id number] ?? : 1950 ?Acct:[id number] ?? Age/Sex: 73 / M ?ADM Date: 12/05/23 ?? Loc: CT ? Attending Dr: Tonya Dye NP ? Ordering Physician: Tonya Dye NP ?? Date of Service: 12/05/23 ?? Procedure(s): CT sinus wo con ?? Accession Number(s): [id number] ? cc: Tonya Dye NP ? [facility] ? [address] ? [place] [address] ? Patient Name: ?? TERRI LOWE ? MRN: [facility]:[id number] ? date: 1950 ?Sex: M ?? Assigned Patient Location: CT ?? Current Patient Location: CT ?? Accession/Order Number: [id number] ?? Exam Date: 12/05/2023 ??12:53 ?Report Date: 12/05/2023 ??13:25 ? At the request of: ?? TONYA DYE ? Procedure: ??CT sinus wo con ? EXAM: CT sinus wo con ? 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 COMPARISON: None. ? TECHNIQUE: Contiguous axial CT images of the sinuses obtained without ?? contrast. ?? Coronal and sagittal reconstructions performed. Dose reduction techniques were ? achieved by using automated exposure control and/or adjustment of mA and/or kV ? according to patient size and/or use of iterative reconstruction technique. ? FINDINGS: ? There is minimal mucosal thickening of the bilateral maxillary sinuses. ?? Otherwise, the paranasal sinuses are well-aerated without mucosal thickening ?? or ?? air-fluid level. ? Bilateral infundibulum of the ostiomeatal complexes are narrow but patent. The ? frontoethmoidal recesses are patent bilaterally. 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 ? There is moderate rightward bony nasal septal deviation with a bony spur.. ? There are no acute fracture, destructive lesion or sclerosis of bony ?? structures. ? The visualized mastoid air cells and middle ear cavities are clear. There is ?? no ?? proptosis. The extraocular muscles are intact. ? CT/CT sinus wo con ?? IMPRESSION: ? No evidence of acute sinusitis. ? Minimal mucosal thickening of the bilateral maxillary sinuses. Otherwise, the ?? paranasal sinuses are clear and well-aerated. Bilateral infundibulum of the ?? ostiomeatal complexes are narrow but patent. ? Moderate rightward deviation of nasal septum with a bony spur. ? Electronically authenticated by: JONNIE ??UNLU ?? Date: 12/05/2023 ??13:25 ? Dictated By: ?JOSE,JONNIE M.D. ? Signed By: ?12/05/23 1328 ? DD/ 1325 ? TD/TT: ? Methods Time Analyst: Procedure Note Radiology, Radiologist, MD - 12/05/[address] [address] [address] Scan Report Signed Patient: TERRI LOWE R#: [id number] : 1950cct:[id number] Age/Sex: 73 / MADM Date: 12/05/23 Loc: CT Attending Dr: Tonya Dye HYDRAULIC REPAIRER Ordering Physician: Tonya Dye NP Date of Service: 12/05/23 Procedure(s): CT sinus wo con Accession Number(s): [id number] cc: Tonya Dye NP The [address] [address] Patient Name: TERRI LOWE MRN: [facility]:[id number] date: 1950 Sex: M Assigned Patient Location: CT Current Patient Location: CT Accession/Order Number: [id number] Exam Date: 12/05/2023 12:53 Report Date: 12/05/2023 [...] M.D. Signed By:12/05/23 1328 DD/ 1325 TD/TT: Methods Time Analyst: Authorizing ProviderResult TypeResult StatusLisa Dye NPCLINISYNC IMAGING Final Result * (ABNORMAL) MLR HEMOGLOBIN A1C (12/05/2023 1:05 PM EST)ComponentValueRef Range Test MethodAnalysis TimePerformed AtPathologist SignatureGLYCOHEMOGLOBIN A1C 8.3(H)4.5 - 6.2 %TBHComment: ADA RECOMMENDED LIMIT 4.0 - 6.0 ADA THERAPEUTIC TARGET < 7.0 ACTION SUGGESTED > 7.0 ESTIMATED AVERAGE OFLORFB002nh/dLTBHSpecimen (Source)Anatomical Location / LateralityCollection Method / VolumeCollection TimeReceived Time12/05/2023 1:05 PM EST12/05/2023 1:13 PM EST Narrative [facility] - 12/05/2023 2:16 PM EST Authorizing ProviderResult TypeResult StatusLisa Hardik NPCLINISYNCFinal ResultPerforming OrganizationAddressCity/State/ZIP CodePhone Number [facility] documented in this encounter Visit Diagnoses Not on filedocumented in this encounter Care Teams Team MemberRelationshipSpecialtyStart DateEnd Date Mumtaz Jensen MD PCP - GeneralFamily Medicine11/28/23 Tonya Dye NP [address] [place] [address] PCP - ACO Reach11/22/24 Tonya Dye NP Referring PhysicianNurse Practitioner03/09/23documented as of this encounter
--- OUTSIDE RECORDS SUMMARY | 2025-08-19 12:21 | XMS_ITS | Clinical Summary ---
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 TimePerformed AtPathologist SignatureLVOT stroke lthooz21.68ml XCELERALV Systolic Hkwagv65.18kKKYNPNQENI89%XCELERALV Diastolic Bhrror93.30mL XCELERALVOT diameter1.93fdPPGHZYTQTO6.35cm/sXCELERAMV TDI E' (medial)5.51cm/s XCELERALA Volume Index26.2mL/k2FAQTOCKH/A ratio1.57XCELERAE wave deceleration wzbw357.00msecXCELERAMV Peak E Kup343.00cm/sXCELERAMV Peak A Vel86.90cm/s XCELERALA .84rr9NOWKBYXCQ diastolic dimension (basal)40.8mmXCELERA TAPSE1.27cmXCELERAAV peak hwv107.00cm/sXCELERALVOT peak vel1.25m/sXCELERAAV VTI56.00cmXCELERALVOT peak VTI34.10cmXCELERAAV mean dleoxzgf25.00mmHgXCELERAAV peak stxswwap28.07mmHgXCELERAAV valve area1.73XCELERAValve area - Index0.9 XCELERAMV pressure 1/2 time62.00msXCELERAMV valve area p 1/2 method3.55cm2 XCELERATR Peak Vel2.9m/sXCELERATR peak .57mmHgXCELERALV ESV A2C65.50 mLXCELERALV ESV A4C42.30mLXCELERAEcho EF Qhsgkdnyn38%XCELERAAV Velocity Ratio 0.61XCELERARA area15.8vl8LVBZEKYTiw. RA okwghnvf6caVwTCYLYVSOM Peak Systolic Powvxplq16zkLaMQROEBXEN mn grad zhzsbikqwv67.1epPzKFJLDPFQIA0.2oo4IVMUFIDAj grad tednmxfkmj67.0mmHgXCELERAAnatomical RegionLateralityModalityChestN/A UltrasoundSpecimen (Source)Anatomical Location / LateralityCollection Method [...] The leaflets are mildly thickened. There is aimqe-mt-guiy regurgitation. There is no evidence of mitral [...] wall motion is normal. Authorizing ProviderResult TypeResult StatusLanata Rebolledo [facility] [place] ORDERABLESFinal Result * Protime & INR (06/30/2025 5:09 PM EDT) Only the most recent of9 resultswithin the time period is included. ComponentValueRef RangeTest MethodAnalysis TimePerformed AtPathologist Signature OJMZYUB90.79.8 - 13.2 sec06/30/2025 6:12 PM [facility].00.9 - 1. 6:12 PM [facility] Specimen (Source)Anatomical Location / LateralityCollection Method / Volume Collection TimeReceived TimeBloodVenous blood / Asaemgz8406/30/2025 5:09 PM EDT 06/30/2025 5:43 PM EDT Narrative Authorizing ProviderResult TypeResult StatusChrispari Espinoza [facility] BLOOD ORDERABLESFinal ResultPerforming OrganizationAddressCity/State/ZIP CodePhone Number [address] [place] [address], * Lab Results Report (Scanned Into EHR) (06/23/2025 10:33 AM EDT) Narrative 06/23/2025 10:33 AM EDT Ordered by an unspecified provider. Authorizing ProviderResult TypeResult StatusNot In System Ref ProvLAB BLOOD ORDERABLESFinal Result * (ABNORMAL) Basic Metabolic Panel (06/19/2025 1:40 PM EDT) Only the most recent of5 resultswithin the time period is included. ComponentValueRef RangeTest MethodAnalysis TimePerformed AtPathologist Signature SZLIGW054895 - 146 mmol/L06/19/2025 2:31 PM EDAC[facility]ALTHCARE SYSTEMPOTASSIUM4.73.5 - 5.0 mmol/L06/19/2025 2:31 PM EDACMC [facility]ALTHCARE SYSTEMCHLORIDE10098 - 109 mmol/L06/19/2025 2:31 PM EDACMC HEALTHCARE SYSTEMCARBON AKAONKZ0088 - 32 mmol/L06/19/2025 2:31 PM EDT [facility]75 - 15 mmol/L06/19/2025 2:31 PM EDT [facility] UREA EETFKVFE456 - 27 mg/dL06/19/2025 2:31 PM EDACMC HEALTHCARE SYSTEMCREATININE0.740.70 - 1.20 mg/dL 06/19/2025 2:31 PM [facility]ITALComment:METHOD TRACEABLE TO IDMS TAWNNJOJMKECZPL872(H)65 - 99 mg/dL06/19/2025 2:31 PM EDT [facility]ITALCALCIUM9.28.5 - 10.5 mg/dL06/19/2025 2:31 PM [facility] HOSPITALEGFR Non-Race Dependent>90>=60 ml/min/1.73sq.m006/19/2025 2:31 PM [facility]Comment: eGFR not reported due to non-numeric value for Creatinine. Reported eGFR is based on the CKD-EPI 2020 equation that does not use a race coefficient. Specimen (Source)Anatomical Location / LateralityCollection Method / Volume Collection TimeReceived TimeBloodVenous blood / Uhopacs8906/19/2025 1:40 PM EDT 06/19/2025 2:14 PM EDT Narrative Authorizing ProviderResult TypeResult StatusChrispari MALIN BLOOD ORDERABLESFinal ResultPerforming OrganizationAddressCity/State/ZIP CodePhone Number [facility] [address] [place] [address], * TEG BILL ONLY (06/17/2025 11:35 AM EDT) Only the most recent of2 resultswithin the time period is included. Specimen (Source)Anatomical Location / LateralityCollection Method / Volume Collection TimeReceived TimeBlood (Other)Venipuncture / Ddxvjyu9006/17/2025 11:35 AM EDT06/17/2025 11:35 AM EDT Narrative Authorizing ProviderResult TypeResult StatusChpage Espinoza MDLAB BLOOD ORDERABLESFinal ResultPerforming OrganizationAddPenn State Health [facility]/State/ZIP CodePhone Number [facility] [address] [place] [address], * (ABNORMAL) Bedside Glucose *Place/Obtain serum glucose if >500 per glucometer. (06/17/2025 7:51 AM EDT) Only the most recent of25 resultswithin the time period is included. ComponentValueRef RangeTest MethodAnalysis TimePerformed AtPathologist Signature Bedside Glucose (POC)148(H)65 - 99 mg/dL06/17/2025 7:57 AM [facility] LABORATORYSpecimen (Source)Anatomical Location / LateralityCollection Method / VolumeCollection TimeReceived Timearterial/stellzzrj79/02/2025 7:51 AM EDT 06/17/2025 7:57 AM EDT Narrative Authorizing ProviderResult TypeResult StatusEdin Espinoza MDPOINT OF CARE TEST ORDERABLESFinal ResultPerforming OrganizationAddressty/State/ZIP CodePhone Number [facility] [address] [place] [address], * (ABNORMAL) CBC without diff (06/17/2025 4:33 AM EDT) Only the most recent of5 resultswithin the time period is included. ComponentValueRef RangeTest MethodAnalysis TimePerformed AtPathologist Signature WBC6.64 - 11 x10E9/L06/17/2025 5:08 AM [facility] LABORATORYRBC Count3.62(L)4.1 - 5.7 X10E12/L06/17/2025 5:08 AM [facility] FCYJGGDNHYCmbkdqlwcz87.3(L)13 - 17 g/dL06/17/2025 5:08 AM [facility] VDXFXFGTTQAcnzfdowam35.4(L)39 - 50 %06/17/2025 5:08 AM [facility] UGULZFPKPSTKA6888 - 100 fL06/17/2025 5:08 AM [facility] LTJRJWWSAYAVP65.127 - 34 pg06/17/2025 5:08 AM [facility] WTIIKOVYIVPFBF32.732 - 36 g/dL06/17/2025 5:08 AM [facility] MLTVSFIKPUJDW47.511.5 - 15 %06/17/2025 5:08 AM [facility] LABORATORYPlatelet Jqfza682(L)150 - 450 X10E9/L06/17/2025 5:08 AM [facility] LABORATORYMPV8.67 - 12 fL06/17/2025 5:08 AM [facility] LABORATORYSpecimen (Source)Anatomical Location / LateralityCollection Method / VolumeCollection TimeReceived TimeBloodVenous blood / UnknownCentral Line / Lljrkxu5706/17/2025 4:33 AM EDT06/17/2025 4:44 AM EDT Narrative Authorizing ProviderResult TypeResult StatusChristopher Gail MALIN BLOOD ORDERABLESFinal ResultPerforming OrganizationAddressty/State/[place] [address], * Potassium (06/16/2025 11:28 AM EDT) Only the most recent of3 resultswithin the time period is included. ComponentValueRef RangeTest MethodAnalysis TimePerformed AtPathologist Signature POTASSIUM4.13.5 - 5.0 mmol/L06/16/2025 12:28 PM [facility] LABORATORYSpecimen (Source)Anatomical Location / LateralityCollection Method / VolumeCollection TimeReceived TimeBloodVenous blood / Vnstaex4506/16/2025 11:28 AM EDT06/16/2025 11:47 AM EDT Narrative Authorizing ProviderResult TypeResult StatusChristopher Gail MALIN BLOOD ORDERABLESFinal ResultPerforming OrganizationAddressCity/State/ZIP CodePhone Number [address] [place] [address], * X-ray chest 1 view (06/16/2025 6:04 AM EDT) Only the most recent of4 resultswithin the time period is included. Anatomical RegionLateralityModalityBody, ChestN/AComputed RadiographySpecimen (Source)Anatomical Location / LateralityCollection Method / VolumeCollection TimeReceived Time06/16/2025 8:19 AM EDT Narrative 06/16/2025 8:20 AM EDT XR CHEST 1 VW: 06/16/2025 5:06 AM Clinical: ??Chest tube removal Upright portable chest is compared with 06/15/2025. Stable right central line. No pneumothorax. IMPRESSION: * ??Continued mostly linear lower lobe infiltrates with probable right pleural effusion. * ??No pneumothorax. Finalized by Avery Velez MD on 06/16/2025 8:20 AM Procedure Note Avery Velez MD - 06/16/2025 XR CHEST 1 VW: 06/16/2025 5:06 AM Clinical: Chest tube removal Upright portable chest is compared with 06/15/2025. Stable right central line. No pneumothorax. IMPRESSION: * Continued mostly linear lower lobe infiltrates with probable rightpleural effusion. * No pneumothorax. Finalized by Avery Velez MD on 06/16/2025 8:20 AM Authorizing ProviderResult TypeResult StatusChrisjudi Driscoll APRN-CNPIMG DIAGNOSTIC IMAGING ORDERABLESFinal Result * EKG (06/16/2025 2:53 AM EDT) Only the most recent of3 resultswithin the time period is included. Specimen (Source)Anatomical Location / LateralityCollection Method / Volume Collection TimeReceived Time06/16/2025 2:53 AM EDT Narrative TRAC[facility] - 06/16/2025 1:42 PM EDT Authorizing ProviderResult TypeResult StatusTimkia Cota BUILDING CODE INSPECTOR-CNPECG ORDERABLESFinal ResultPerforming OrganizationAddressCity/State/ZIP CodePhone Number [facility] * Magnesium (06/16/2025 1:07 AM EDT)ComponentValueRef RangeTest MethodAnalysis TimePerformed AtPathologist SignatureMAGNESIUM2.21.8 - 2.6 mg/dL06/16/2025 1:45 AM [facility] LABORATORYSpecimen (Source)Anatomical Location / LateralityCollection Method / VolumeCollection TimeReceived Time BloodVenous blood / UnknownCentral Line / Bmdcckl2506/16/2025 1:07 AM EDT 06/16/2025 1:18 AM EDT Narrative Authorizing ProviderResult TypeResult StatusChristopher Gail Espinoza MDLAB BLOOD ORDERABLESFinal ResultPerforming OrganizationAddressCity/State/ZIP CodePhone Number [address] [place] [address], * Ionized magnesium (06/14/2025 2:15 AM EDT) Only the most recent of3 resultswithin the time period is included. ComponentValueRef RangeTest MethodAnalysis TimePerformed AtPathologist Signature IONIZED MAGNESIUM0.660.45 - 0.74 mmol/L06/14/2025 4:00 AM [facility] LABORATORYSpecimen (Source)Anatomical Location / LateralityCollection Method / VolumeCollection TimeReceived TimeBloodVenous blood / Gibusko2106/14/2025 2:15 AM EDT06/14/2025 2:42 AM EDT Narrative Authorizing ProviderResult TypeResult StatusChrispari Espinoza MDLAB BLOOD ORDERABLESFinal ResultPerforming OrganizationAddressCity/State/ZIP CodePhone Number [facility] [address] [place] [address], [place] [phone] * Phosphorus (06/14/2025 2:15 AM EDT)ComponentValueRef RangeTest MethodAnalysis TimePerformed AtPathologist SignaturePHOSPHORUS3.22.4 - 4.9 mg/dL06/14/2025 3:14 AM [facility] LABORATORYSpecimen (Source)Anatomical Location / LateralityCollection Method / VolumeCollection TimeReceived Time BloodVenous blood / Hlcqfzx7206/14/2025 2:15 AM EDT06/14/2025 2:41 AM EDT Narrative Authorizing ProviderResult TypeResult StatusChristopher Gail MALIN BLOOD ORDERABLESFinal ResultPerforming OrganizationAddressCity/State/ZIP CodePhone Number [facility] [address] [place] [address], [place] [phone] * Ionized calcium (06/14/2025 2:15 AM EDT) Only the most recent of3 resultswithin the time period is included. ComponentValueRef RangeTest MethodAnalysis TimePerformed AtPathologist Signature IONIZED CALCIUM - ICAN4.64.5 - 5.3 mg/dL06/14/2025 4:00 AM [facility] LABORATORYSpecimen (Source)Anatomical Location / LateralityCollection Method / VolumeCollection TimeReceived TimeBloodVenous blood / Fmohjxr3306/14/2025 2:15 AM EDT06/14/2025 2:42 AM EDT Narrative Authorizing ProviderResult TypeResult StatusChrispari MALIN BLOOD ORDERABLESFinal ResultPerforming OrganizationAddressCity/State/ZIP CodePhone Number [facility] [address] [place] [address], [place] [phone] * Hemoglobin and hematocrit, blood (06/13/2025 9:37 PM EDT) Only the most recent of2 resultswithin the time period is included. ComponentValueRef RangeTest MethodAnalysis TimePerformed AtPathologist Signature Cbzatsvycn38.313 - 17 g/dL06/13/2025 10:07 PM [facility] YRWXKIMDOULhhwxmtriw60.639 - 50 %06/13/2025 10:07 PM [facility] LABORATORYSpecimen (Source)Anatomical Location / LateralityCollection Method / VolumeCollection TimeReceived TimeBloodVenous blood / Ftjcbpr8306/13/2025 9:37 PM EDT06/13/2025 9:47 PM EDT Narrative Authorizing ProviderResult TypeResult StatusChristopher Gail Espinoza MDLAB BLOOD ORDERABLESFinal ResultPerforming OrganizationAddressCity/State/ZIP CodePhone Number [facility] [address] [place] [address], * BUN (06/13/2025 9:37 PM EDT) Only the most recent of2 resultswithin the time period is included. ComponentValueRef RangeTest MethodAnalysis TimePerformed AtPathologist Signature BLOOD UREA VOPDXXPM796 - 27 mg/dL06/13/2025 10:23 PM [facility] LABORATORYSpecimen (Source)Anatomical Location / LateralityCollection Method / VolumeCollection TimeReceived TimeBloodVenous blood / Gdyizbb6606/13/2025 9:37 PM EDT06/13/2025 9:47 PM EDT Narrative Authorizing ProviderResult TypeResult StatusChristopher Gail MALIN BLOOD ORDERABLESFinal ResultPerforming OrganizationAddressCity/State/ZIP CodePhone Number [facility] [address] [place] [address], * (ABNORMAL) Creatinine includes GFR, serum (06/13/2025 9:37 PM EDT) Only the most recent of2 resultswithin the time period is included. ComponentValueRef RangeTest MethodAnalysis TimePerformed AtPathologist Signature CREATININE0.47(L)0.60 - 1.30 mg/dL06/13/2025 10:23 PM [facility] LABORATORYComment:METHOD TRACEABLE TO IDMS STANDARDEGFR Non-Race Dependent>90>=60 ml/min/1.73sq.m006/13/2025 10:23 PM [facility] LABORATORYComment: Reported eGFR is based on the CKD-EPI 2020 equation that does not use a race coefficient. Specimen (Source)Anatomical Location / LateralityCollection Method / Volume Collection TimeReceived TimeBloodVenous blood / Hdqsmyg6906/13/2025 9:37 PM EDT 06/13/2025 9:47 PM EDT Narrative Authorizing ProviderResult TypeResult StatusChpage MALIN BLOOD ORDERABLESFinal ResultPerforming OrganizationAddressCity/State/ZIP CodePhone Number [facility] [address] [place] [address], * (ABNORMAL) Blood Gas, Arterial (06/13/2025 3:33 PM EDT)ComponentValueRef Range Test MethodAnalysis TimePerformed AtPathologist SignatureSample typeArterial 06/13/2025 3:33 PM [facility] LABORATORYBody Temp37.00>=37 C006/13/2025 3:33 PM [facility] LABORATORYpH, Arterial7.301(L)7.350 - 7.450 06/13/2025 3:33 PM [facility] LABORATORYpCO2, Cibweqqc36.9(H)35.0 - 45.0 mmHg06/13/2025 3:33 PM [facility] LABORATORYPO2, Voakygmj837(H)80 - 100 mmHg06/13/2025 3:33 PM [facility] LABORATORYBase, Deficit-1.4(L) 0.0 - 2.0 mmol/L06/13/2025 3:33 PM [facility] LABORATORYHCO3, Arterial 25.122.0 - 26.0 mmol/L06/13/2025 3:33 PM [facility]%O2 Saturation, Pgipitua23.3>90.0 %06/13/2025 3:33 PM [facility] LABORATORYAllen's mlhbKI0006/13/2025 3:33 PM [facility] LABORATORYSPO2 161.0%06/13/2025 3:33 PM [facility] LABORATORYSample siteA LINE 06/13/2025 3:33 PM [facility] LABORATORYInsp. O2 conc.100.0%06/13/2025 3:33 PM [facility] LABORATORYSpecimen (Source)Anatomical Location / LateralityCollection Method / VolumeCollection TimeReceived Timearterial (Blood, Arterial)06/13/2025 3:33 PM EDT06/13/2025 3:33 PM EDT Narrative Authorizing ProviderResult TypeResult StatusChristopher Gail MALIN BLOOD ORDERABLESFinal ResultPerforming OrganizationAddressCity/State/ZIP CodePhone Number [facility] [address] [place] [address], [place] * APTT (06/13/2025 3:16 PM EDT)ComponentValueRef RangeTest MethodAnalysis Time Performed AtPathologist MrnsefeboLTXN6873 - 37 sec06/13/2025 3:48 PM [facility] LABORATORYSpecimen (Source)Anatomical Location / Laterality Collection Method / VolumeCollection TimeReceived TimeBloodVenous blood / Qibmjwb1006/13/2025 3:16 PM EDT06/13/2025 3:32 PM EDT Narrative Authorizing ProviderResult TypeResult StatusChristopher Gail Espinoza SDLAB BLOOD ORDERABLESFinal ResultPerforming OrganizationAddressCity/State/ZIP CodePhone Number [facility] [address] [place] [address], * (ABNORMAL) Platelet count (06/13/2025 3:16 PM EDT)ComponentValueRef RangeTest MethodAnalysis TimePerformed AtPathologist SignaturePlatelet Sqdln769(L)150 - 450 X10E9/L06/13/2025 3:42 PM [facility] LABORATORYMPV8.27 - 12 fL06/13/2025 3:42 PM [facility] LABORATORYSpecimen (Source)Anatomical Location / LateralityCollection Method / VolumeCollection TimeReceived TimeBloodVenous blood / Bkrbbdl5106/13/2025 3:16 PM EDT06/13/2025 3:32 PM EDT Narrative Authorizing ProviderResult TypeResult StatusChpage Espinoza MDCL[facility] BLOOD ORDERABLESFinal ResultPerforming OrganizationAddressCity/State/ZIP CodePhone Number [facility] [address] [place] [address], * (ABNORMAL) POCT ABG Rapid K GLU ICA HH (06/13/2025 2:22 PM EDT) Only the most recent of2 resultswithin the time period is included. ComponentValueRef RangeTest MethodAnalysis TimePerformed AtPathologist Signature POC Potassium3.93.5 - 5.0 mmol/L06/13/2025 2:24 PM [facility] POC Ejcavyc512(H)65 - 99 mg/dL06/13/2025 2:24 PM [facility] POC HGB12.2(L)13.0 - 17.0 g/dL06/13/2025 2:24 PM [facility] POC Sdcmktqtmv08(L)39 - 49 %06/13/2025 2:24 PM [facility] LABORATORYPOC Ionized Calcium4.94.5 - 5.3 mg/dL06/13/2025 2:24 PM [facility] LABORATORYSample ffdyQjmerzaq93/29/2025 2:24 PM [facility] Body Temp37.00>=37 C006/13/2025 2:24 PM [facility] LABORATORYpH, Arterial 7.3637.350 - 7.8581306/13/2025 2:24 PM [facility] LABORATORYpCO2, Arterial 43.235.0 - 45.0 mmHg06/13/2025 2:24 PM [facility] LABORATORYPO2, Ifeamenk857(H)80 - 100 mmHg06/13/2025 2:24 PM [facility] LABORATORYBase, Deficit-0.8(L)0.0 - 2.0 mmol/L06/13/2025 2:24 PM [facility] HCO3, Asugdvna14.622.0 - 26.0 mmol/L06/13/2025 2:24 PM [facility]%O2 Saturation, Zccgglxm129.2>90.0 %06/13/2025 2:24 PM [facility] LABORATORYAllen's dbjoUA2406/13/2025 2:24 PM [facility] LABORATORYSample siteA LINE06/13/2025 2:24 PM [facility] LABORATORYInsp. O2 conc.100.0%06/13/2025 2:24 PM [facility] LABORATORYSpecimen (Source) Anatomical Location / LateralityCollection Method / VolumeCollection Time Received Timearterial (Blood, Arterial)06/13/2025 2:22 PM EDT06/13/2025 2:24 PM EDT Narrative Authorizing ProviderResult TypeResult StatusChristopher Gail Espinoza MDPOINT OF CARE TEST ORDERABLESFinal ResultPerforming OrganizationAddressCity/State/ZIP CodePhone Number [facility] [address] [place] [address], * (ABNORMAL) POCT ABG Rapid K GLU HH (06/13/2025 1:44 PM EDT) Only the most recent of5 resultswithin the time period is included. ComponentValueRef RangeTest MethodAnalysis TimePerformed AtPathologist Signature POC Potassium4.13.5 - 5.0 mmol/L06/13/2025 1:46 PM [facility] POC Cysiwrt012(H)65 - 99 mg/dL06/13/2025 1:46 PM [facility] POC HGB12.1(L)13.0 - 17.0 g/dL06/13/2025 1:46 PM [facility] POC Hyouinzksk27(L)39 - 49 %06/13/2025 1:46 PM [facility] Sample omcgQetidxot25/29/2025 1:46 PM [facility] LABORATORYBody Temp 37.00>=37 C006/13/2025 1:46 PM [facility] LABORATORYpH, Arterial7.425 7.350 - 7.3533306/13/2025 1:46 PM [facility] LABORATORYpCO2, Hjgprjcb18.2 35.0 - 45.0 mmHg06/13/2025 1:46 PM [facility] LABORATORYPO2, Snyyeyry231 (H)80 - 100 mmHg06/13/2025 1:46 PM [facility] LABORATORYBase, Excess1.3 0.0 - 2.0 mmol/L06/13/2025 1:46 PM [facility] LABORATORYHCO3, Arterial 25.722.0 - 26.0 mmol/L06/13/2025 1:46 PM [facility]%O2 Saturation, Opyvdlbz87.8>90.0 %06/13/2025 1:46 PM [facility] Tobi's ryshVB9106/13/2025 1:46 PM [facility] LABORATORYSample siteA LINE 06/13/2025 1:46 PM [facility] LABORATORYInsp. O2 conc.100.0%06/13/2025 1:46 PM [facility] PQUIGDGTAIBTL9030.0%06/13/2025 1:46 PM [facility] LABORATORYSpecimen (Source)Anatomical Location / LateralityCollection Method / VolumeCollection TimeReceived Timearterial (Blood, Arterial)06/13/2025 1:44 PM EDT06/13/2025 1:46 PM EDT Narrative Authorizing ProviderResult TypeResult StatusChristopher Gail Espinoza MDPOINT OF CARE TEST ORDERABLESFinal ResultPerforming OrganizationAddressCity/State/ZIP CodePhone Number [facility] [address] [place] [address], * Surgical Pathology (06/13/2025 12:26 PM EDT)ComponentValueRef RangeTest Method Analysis TimePerformed AtPathologist SignatureCase ReportSurgical Pathology Report ? Case: [id number] ? Authorizing Provider: ??Edin Espinoza MD ??Collected: ? 06/13/2025 1226 ? Ordering Location: ? [facility] ??Received: ?06/13/2025 1823 ? - Surgery ? Pathologist: ? Michel Pineda MD ? Specimen: ?Heart Valve, AORTIC VALVE LEAFLETS ? 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 The specimen exhibits focal calcified areas up to 0.5 cm in thickness. The specimen is serially sectioned to reveal crusted calcified cut surfaces. Two communications representative cross-sections are placed in ImmunoCal for decalcification in a single cassette. (1, ss, [id number],m5) DM. 06/19/2025 2:45 PM [facility]ATORYEmbedded Images 06/19/2025 2:45 PM [facility] LABORATORYSpecimen (Source) Anatomical Location / LateralityCollection Method / VolumeCollection Time Received TimeTissue (Heart Valve)06/13/2025 12:26 PM EDT06/13/2025 6:23 PM EDT Comment:Pre-op diagnosis: CORONARY ARTERY DISEASE AORTIC STENOSIS Narrative Authorizing ProviderResult TypeResult StatusChristopher Gail Espinoza MD PATHOLOGY/CYTOLOGY ORDERABLESFinal ResultPerforming OrganizationAddress City/State/ZIP CodePhone Number [facility] [address] [place] [address], [place] [phone] * [place] ANES ART LINE (06/13/2025 10:18 AM EDT) Narrative Sarah Mathew APRN-CRNA - 06/13/2025 10:18 AM EDT BARBARA Barbosa 06/13/2025 10:18 AM Art Line Performed by: BARBARA Barbosa Authorized by: Victorino Jiang MD ?? Patient Location: ??OR Start Time: ??06/13/2025 9:20 AM End Time: ??06/13/2025 9:25 AM Service Provider: ??Victorino Jiang MD PUBLICATION SPECIALIST ( if not the service provider): ??BARBARA Barbosa Placed By: ??BARBARA Barbosa Complete checklist: Patient Identified, IV Checked, Risks and Benefits Discussed, Surgical Consent, Monitors and Equipment Checked, Pre-op Evaluation and Timeout Performed Fire Risk Assessment Score: 0 Site Prep: Chlorhexadine and Isopropyl Alcohol and Maximum Sterile Barriers Used ?? Hand Hygiene Performed Prior to Insertion: Yes ?? Site Prep Agent has Completely Dried Before Insertion: Yes ?? Local Anesthetic: Injectable ?? Patient Prep Prior to AL Insertion: Sedated ?? Size: ??20 G Total Catheter Length (inches): ??1 3/4 Location: ??Radial Orientation: Right Securement Method: ??Transparent Dressing, Sutured and Steri-Stips Placement Technique: ??Anatomical Landmarks and Guidewire Insertion Attempts: ??1 Patient Tolerance: Tolerated Well ??no arterial injury Authorizing ProviderResult TypeResult StatusOmar Deidre MDPAlberta ANESTHESIAFinal Result * [place] INSERT/PLACE FLOW DIRECT CATH (06/13/2025 10:17 AM EDT) Sarah Denson APRN-CRNA - 06/13/2025 10:17 AM EDT BARBARA Barbosa 06/13/2025 10:17 AM Venous Access Line ? (CVC/[place]) Performed by: BARBARA Barbosa Authorized by: Victorino Jiang MD ?? Patient Location: ??OR Start Time: ??06/13/2025 9:35 AM End Time: ??06/13/2025 9:39 AM Service Provider: ??Victorino Jiang MD Placed By: ??Victorino Jiang MD Patient Identified, IV Checked, Risks and Benefits Discussed, Surgical Consent, Monitors and Equipment Checked, Pre-op Evaluation and Timeout Performed Fire Risk Assessment Score: 0 Vascular Access: Introducer ?? Number of Introducer Lumens: Double ?? Vascular Access: [place]-Jonathan Is the patient 5 years old or younger: No ?? Prep: Chlorhexadine and Isopropyl Alcohol and Maximum Sterile Barriers used during central venous catheter insertion ?? Hand Hygiene Performed Prior to Insertion: Yes ?? Site Prep Agent has Completely Dried Before Insertion: Yes ?? Type of Patient Prep: General Anesthesia ?? CVC Type: Non-Tunneled ?? Location: ??Internal Jugular Orientation: Right Securement Method: ??Sutured Placement Technique: ??Anatomical Landmarks, Guidewire and Ultrasound Guidance Insertion Attempts: ??1 Placement Verification: Blood Return and Ultrasound ?? Patient Tolerance: Tolerated Well ?? Authorizing ProviderResult TypeResult StatusOmar Deidre [facility] CENTERAlberta ANESTHESIAFinal Result * ANESTHESIA NOHEMI (06/13/2025 10:13 AM EDT) Victorino Doran MD - 06/13/2025 10:13 AM EDT Victorino Jiang MD 06/13/2025 3:47 PM NOHEMI Patient Location: ??OR Type of Anesthesia: General Anesthesia: ?? Start Time: ??06/13/2025 9:41 AM Requesting Physician: ??Edin Espinoza MD IV Insitu: ??Central Line Service Provider: ??Victorino Jiang MD Surgeon (if supervising): ??Edin Espinoza MD Placed by: ??Victorino Jiang MD Checklist: Patient Identified, IV Checked, Risks and Benefits Discussed, Surgical Consent, Monitors and Equipment Checked, Pre-op Evaluation and Timeout Performed Fire Risk Assessment Score: 1 Indication for NOHEMI: Assessment of Surgical Repair and Hemodynamic Monitoring ?? Intubated: Yes ?? Bite Block: No ?? Heart Visualized: Yes ?? Insertion: ??Easy Probe Type: ??Multiplane Modalities: ??2D Only, Color Flow Mapping, Continuous Wave Doppler and Pulse Wave Doppler Right Ventricle Cavity Size: Normal Function: Normal Left Ventricle cavity size: Normal ?? Hypertrophy: Moderate LVH ?? Function: Normal LV Ejection Fraction: 65 % AV Annulus: Calcified ?? AV Stenosis: Severe ?? AV Regurgitation: Mild ?? AV Leaflet Morphology: Calcified and Bicuspid ?? AV Leaflet Motion: Restricted ?? MV Annulus: Normal ?? MV Regurgitation: Trace regurgitation is present. ?? MV Leaflet Morphology: Normal ?? MV Leaflet Motion: Normal ?? Severity: trace TV Leaflet Morphology: Normal ?? TV Leaflet Motion: Normal ?? PV Regurgitation: None ?? PV Leaflet Morphology: Normal ?? Ascending Aorta: Normal ?? Aortic Arch: Normal ?? Aortic Arch Plaque Thick: grade 1 ?? Descending Aorta: Normal ?? Descending Aorta Plaque Thick: ??grade 2 ?? Right Atrium: Normal ?? Left Atrium: Normal ?? Left Atrial Appendage: Normal ?? Intra-Atrial Septal Morphology: Normal ?? Diastolic Dysfunction Grade: ??I Pericardium: Normal ?? Pericardial Effusion: None Pleural: normal Pleural Effusion: None ?? Pulmonary Arteries: Normal ?? Pulmonary Venous Flow: normal ?? Echocardiogram Comments: ??Pre-CPB: LV EF 65-70%, no regional WMAs, moderate concentric LVH. Functionally bicuspid AV with left/right fusion and calcified commissure, severe with mild AI, AV annulus 2.15cm. Post-CPB: Newly implanted 23mm bioprosthetic AV in the cher-ae heights AV position is well-seated with normal leaflet motion and no perivalvular leak. Mean gradient 5mmHg, no significant intravalvular regurgitation. No new regional WMAs, LV EF 65-70%. No pleural or pericardial effusions, no evidence of new aortic thrombi or dissection. Findings discussed with attending surgeon at the time of the exam. AV post intervention: nonetrace ?? TV Regurgitation post intervention: trace LV Function post intervention: unchanged LV function RV Function post intervention: UnchangedLV Ejection Fraction: 65 Authorizing ProviderResult TypeResult StatusOmar Deidre MDANESTHESIA ORDERABLES Final Result * POCT IMAGN (06/13/2025 9:50 AM EDT)ComponentValueRef RangeTest MethodAnalysis TimePerformed AtPathologist SignaturePOC Ionized Magnesium0.590.45 - 0.60 mmol/L06/13/2025 9:52 AM [facility] LAB[facility]ATORYSpecimen (Source) Anatomical Location / LateralityCollection Method / VolumeCollection Time Received Yoikfzuudf51/29/2025 9:50 AM EDT06/13/2025 9:52 AM EDT Narrative Authorizing ProviderResult TypeResult StatusChristopher Gail Espinoza MDPOINT OF CARE TEST ORDERABLESFinal ResultPerforming OrganizationAddressCity/State/ZIP CodePhone Number [facility] [address] [place] [address], * [place] AN ELECTIVE ENDOTRACHEAL AIRWAY (06/13/2025 9:33 AM EDT) Narrative Sarah Mathew APRN-CRNA - 06/13/2025 9:33 AM EDT BARBARA Barbosa 06/13/2025 9:41 AM Airway Patient location during procedure: OR Urgency: Elective Date/Time: 06/13/2025 9:33 AM Airway not difficult IV In Situ: Peripheral General Information and Staff Service Provider: Victorino Jiang MD PUBLICATION SPECIALIST: BARBARA Barbosa Placed by: ??BARBARA Barbosa Patient Identified, IV Checked, Risks and Benefits Discussed, Surgical Consent, Monitors and Equipment Checked, Pre-op Evaluation and Timeout Performed Fire Risk Assessment Score: 0 Consent for Emergent Airway (if performed for an anesthetic, see related documentation for consents) Risks and benefits: risks, benefits and alternatives were discussed Indications and Patient Condition Sedation level: Deep Preoxygenated: yesPatient position: Supine and Sniffing Mask difficulty assessment: Vent By Mask Indications for airway management: Anesthesia Complications: No Complicating Factors: No Final Airway Details Final airway type: ETT Endotracheal airway: Cuffed, ETT - Single Lumen and Inflated Techniques used for successful ETT Placement: Direct Laryngoscopy and With Stylet Cormack-Lehane Classification: Grade II Adjuncts used in placement: Anterior Pressure/BURP Endotracheal tube insertion site: Oral Post Intubation Trauma? No Visibility: ??Cords Clear Blade: Wendy Blade size: #4 Placement verified by: chest auscultation, capnography and symmetrical chest wall movement ETT size: 8.0 mm Cuff volume (mL): 5 Measured from: Lips Secured at (cm): 22 Number of other approaches attempted: 1 Ventilation between attempts: None Number of attempts at approach: 2 Other AttemptsUnsuccessful attempted airways: Endotracheal Tube Unsuccessful attempted endotracheal techniques: Direct Laryngoscopy Additional Comments 1st attempt DL Grade III view. Modified head position- DL grade IIa Authorizing ProviderResult TypeResult StatusOmar Deidre MDANESTHESIA ORDERABLES Final Result * Intra-operative transesophageal echocardiogram (06/13/2025 7:33 AM EDT) Specimen (Source)Anatomical Location / LateralityCollection Method / Volume Collection TimeReceived Time Narrative XCELERA - 06/13/2025 7:33 AM EDT See Anesthesia NOHEMI procedure note for findings. Authorizing ProviderResult TypeResult StatusOmar Deidre MDCV ECHO ORDERABLESFinal ResultPerforming OrganizationAddressCity/State/ZIP CodePhone Number XCELERA * Crossmatch RBC:Number of Units: 2 (06/13/2025 7:30 AM EDT)ComponentValueRef RangeTest MethodAnalysis TimePerformed AtPathologist SignatureBlood component [id number] BANK - WELLSKYUnit [id number] BANK - [place] Unit ABOOBLOOD BANK - WELLSKYUnit RHPOSBLOOD BANK - WELLSKYCrossmatch CompatibleBLOOD BANK - WELLSKYStatus of unitEXPIRED/RELEASEDBLOOD BANK - WELLSKYExpiration [id number] BANK - WELLSKYBB Type Kpnsusy5491ZGTFM BANK - WELLSKYBlood component [id number] BANK - WELLSKYUnit number [id number] BANK - WELLSKYUnit ABOOBLOOD BANK - WELLSKYUnit RHPOS BLOOD BANK - WELLSKYCrossmatchCompatibleBLOOD BANK - WELLSKYStatus of unit /RELEASEDBLOOD BANK - WELLSKYExpiration [id number] BANK - WELLSKYBB Type [id number] BANK - WELLSKYSpecimen (Source)Anatomical Location / LateralityCollection Method / VolumeCollection TimeReceived Time BloodVenous blood / Wxhmway4706/13/2025 7:30 AM EDT06/13/2025 7:36 AM EDT Narrative Authorizing ProviderResult TypeResult StatusChrispari Espinoza MDBLOOD BANK PRODUCT ORDERABLESEdited Result - FinalPerforming OrganizationAddress City/State/ZIP CodePhone Number BLOOD BANK - [place] * (ABNORMAL) Hemoglobin A1c (06/13/2025 7:19 AM EDT)ComponentValueRef RangeTest MethodAnalysis TimePerformed AtPathologist SignatureHEMOGLOBIN A1C8.2(H)4.4 - 5.6 %06/13/2025 9:29 AM TTST. [facility] LABORATORYComment: ?ADA Guidelines ?Result ?HgbA1c ? Normal : ? less than 5.7 % ? Prediabetes : ?5.7 % ??to 6.4 % Diabetes : > 6.4 % ?Use with caution in patients with abnormal hemoglobin variants as ??the half-life of red blood cells and in vivo glycation rates are ??affected. EST. AVERAGE WAIESEM688wh/dL06/13/2025 9:29 AM [facility] LABORATORYSpecimen (Source)Anatomical Location / LateralityCollection Method / VolumeCollection TimeReceived TimeBloodVenous blood / UnknownVenipuncture / Etbdlfv3306/13/2025 7:19 AM EDT06/13/2025 7:42 AM EDT Narrative Authorizing ProviderResult TypeResult StatusChrispari Espinoza MDLAB BLOOD ORDERABLESFinal ResultPerforming OrganizationAddressCity/State/ZIP CodePhone Number [facility] [address] [place] [address], * Type and screen(includes indirect israel) (06/13/2025 7:18 AM EDT)Component ValueRef RangeTest MethodAnalysis TimePerformed AtPathologist SignatureABOO 06/13/2025 8:30 AM [facility] HUENCJAYMTRGRkmyylho40/29/2025 8:30 AM [facility] LABORATORYAntibody QfvvgvObnruaac78/29/2025 8:30 AM EDT [facility] LABORATORYSpecimen (Source)Anatomical Location / Laterality Collection Method / VolumeCollection TimeReceived TimeBloodVenous blood / UnknownVenipuncture / Oeqkcck3806/13/2025 7:18 AM EDT06/13/2025 7:35 AM EDT Narrative Authorizing ProviderResult TypeResult StatusChristopher Gail Espinoza MDBLOOD BANK TEST ORDERABLESEdited Result - FinalPerforming OrganizationAddressCity/State/ZIP CodePhone Number [facility] - [address] [place] [address], [facility] [address] [place] [address], * (ABNORMAL) Comprehensive metabolic panel (06/13/2025 7:18 AM EDT)Component ValueRef RangeTest MethodAnalysis TimePerformed AtPathologist SignatureSODIUM 574968 - 146 mmol/L06/13/2025 8:14 AM [facility] POTASSIUM4.33.5 - 5.0 mmol/L06/13/2025 8:14 AM [facility] CVRYNQEZYNZIJVQMUH99225 - 109 mmol/L06/13/2025 8:14 AM [facility] LABORATORYCARBON NRJUVAZ8713 - 32 mmol/L06/13/2025 8:14 AM [facility] LABORATORYANION GAP85 - 15 mmol/L06/13/2025 8:14 AM [facility] LABORATORYBLOOD UREA JBQLNQTS907 - 27 mg/dL06/13/2025 8:14 AM [facility] LABORATORYCREATININE0.650.60 - 1.30 mg/dL 06/13/2025 8:14 AM [facility] LABORATORYComment:METHOD TRACEABLE TO IDMS JDOYWRVYVZHKXZB442(H)65 - 99 mg/dL06/13/2025 8:14 AM [facility] LABORATORYCALCIUM8.98.5 - 10.5 mg/dL06/13/2025 8:14 AM [facility] LABORATORYTOTAL PROTEIN7.16.0 - 8.0 g/dL 06/13/2025 8:14 AM [facility] LABORATORYALBUMIN4.23.2 - 5.3 g/dL06/13/2025 8:14 AM [facility] LABORATORYALKALINE VZIVHRURMBY4032 - 130 U/L06/13/2025 8:14 AM [facility] JKPFMQICWQWIC34<=41 U/L06/13/2025 8:14 AM [facility] VIKRYBGAKAVXS95<=40 U/L06/13/2025 8:14 AM [facility] LABORATORYBILIRUBIN,TOTAL0.50.3 - 1.2 mg/dL06/13/2025 8:14 AM [facility]ORYEGFR Non-Race Dependent>90>=60 ml/min/1.73sq.m 06/13/2025 8:14 AM [facility] LABORATORYComment: Reported eGFR is based on the CKD-EPI 2020 equation that does not use a race coefficient. Specimen (Source)Anatomical Location / LateralityCollection Method / Volume Collection TimeReceived TimeBloodVenous blood / UnknownVenipuncture / Unknown 06/13/2025 7:18 AM EDT06/13/2025 7:42 AM EDT Narrative Authorizing ProviderResult TypeResult StatusChristopher Gail MALIN BLOOD ORDERABLESFinal ResultPerforming OrganizationAddressCity/State/ZIP CodePhone Number [facility] [address] [place] [address], * (ABNORMAL) Urinalysis (06/13/2025 7:01 AM EDT)ComponentValueRef RangeTest MethodAnalysis TimePerformed AtPathologist SignatureCOLORYellowYellow 06/13/2025 8:14 AM [facility] LABORATORYTURBIDITYClearClear 06/13/2025 8:14 AM [facility] LABORATORYSPECIFIC GRAVITY1.022 1.003 - 1.3730806/13/2025 8:14 AM [facility] LABORATORYNITRITE GqcmqwpePxjkkhmp22/29/2025 8:14 AM [facility] PH,URINE6.05.0 - 8.508 8:14 AM [facility] LEUKOCYTE ZTBWWIQBItlgjjleMwznczyd97/29/2025 8:14 AM [facility] LABORATORYComment:High Concentrations of Glucose May Decrease the Reactivity of the Dipstick Leukocyte Test Pad.PROTEINTrace(A)Negative 06/13/2025 8:14 AM [facility] LABORATORYKETONES (URINE) DmwhsjetTksusjrf90/29/2025 8:14 AM [facility] UROBILINOGEN<1.1 eu/dL<1.1 eu/dL06/13/2025 8:14 AM [facility] LABORATORYBILIRUBIN (URINE)KpgsqopcAbjoyvjh65/29/2025 8:14 AM [facility] LABORATORYBLOOD/SBGIabwmxvhNytoywca27/29/2025 8:14 AM EDT [facility] LABORATORYMUCOUSPresent(A)None06/13/2025 8:14 AM EDT [facility] LABORATORYR.B.CELLS<10 - 5006/13/2025 8:14 AM EDT [facility] LABORATORYW.B.CELLS<10 - 5006/13/2025 8:14 AM EDT [facility] LABORATORYGLUCOSE (URINE)>1000 mg/dL(A)Negative 06/13/2025 8:14 AM [facility] LABORATORYSpecimen (Source) Anatomical Location / LateralityCollection Method / VolumeCollection Time Received TimeUrineUrine / Qwhvpnh0806/13/2025 7:01 AM EDT06/13/2025 7:31 AM EDT Narrative Authorizing ProviderResult TypeResult StatusChpage Espinoza MDURINE ORDERABLESFinal ResultPerforming OrganizationAddressCity/State/ZIP CodePhone Number [facility] [address] [place] [address], * Urine Culture Urine, Clean Catch Midstream (06/13/2025 7:01 AM EDT)Component ValueRef RangeTest MethodAnalysis TimePerformed AtPathologist SignatureCULTURE RESULTSNO GROWTH AT <1000 CFU/mL06/14/2025 8:25 AM [facility] LABORATORYSpecimen (Source)Anatomical Location / LateralityCollection Method / VolumeCollection TimeReceived TimeUrineUrine specimen collection, clean catch / Tcqmrtb5206/13/2025 7:01 AM EDT06/13/2025 7:31 AM EDT Narrative Authorizing ProviderResult TypeResult StatusEdin Espinoza MDMICROBIOLOGY - GENERAL ORDERABLESFinal ResultPerforming OrganizationAddressCity/State/ZIP CodePhone Number [facility] [address] [place] [address], * Er Extra Urine (06/13/2025 7:00 AM EDT)ComponentValueRef RangeTest Method Analysis TimePerformed AtPathologist SignatureExtra TubeAuto Resulted 06/13/2025 8:02 AM EDTTST. [facility] LABORATORYSpecimen (Source) Anatomical Location / LateralityCollection Method / VolumeCollection Time Received TimeUrineUrine / Irtbzjb9506/13/2025 7:00 AM EDT06/13/2025 7:33 AM EDT Narrative Authorizing ProviderResult TypeResult StatusChristopher Gail PIPER ORDERABLESFinal ResultPerforming OrganizationAddressCity/State/ZIP CodePhone Number [facility] [address] [place] [address], * Vas venous duplex lwr vein mapping bi (06/06/2025 3:31 PM EDT)Anatomical RegionLateralityModalityVascularBilateralUltrasoundSpecimen (Source)Anatomical Location / LateralityCollection Method / VolumeCollection TimeReceived Time 06/06/2025 3:32 PM EDT Narrative 06/07/2025 10:13 AM EDT Previous: 11/10/2021: RIGHT BYPASS ARTERY FEMORAL POPLITEAL WITH VEIN GRAFT. 03/09/2021 stents Right leg. Right: Non-visualization of veins in the thigh. Lower extremity deep and superficial veins are compressible with spontaneous phasic spectral Doppler waveforms and good augmentation. Less than 2.5 mm Great saphenous vein diameter knee to mid calf. Compressible Great saphenous vein--diameter >2.5 mm without intraluminal content, calcification or vein wall thickening at the ankle. Compressible Small saphenous vein--diameter >2.5 mm withoutintraluminal content, calcification or vein wall thickenin proximal to mid. ?? Left: Lower extremity deep and superficial veins are compressible with spontaneous phasic spectral Doppler waveforms and good augmentation. Compressible Great saphenous vein--diameter >2.5 mm without intraluminal content, calcification or vein wall thickening proximal thigh to ankle, mid calf 2.3mm. ??Less than 2.5 mm Small saphenous vein diameter throughout the lower extremity. Conclusions: No evidence of deep or superficial thrombosis of the lower extremity bilaterally. ??RIGHT: Inadequate great saphenous vein caliber (<2.0 mm). Marginally adequate small saphenous vein caliber (2.0 to 2.4 mm). ??LEFT: ??Marginally adequate great and small saphenous vein caliber (2.0 to 2.4 mm). ? Recommendations: Any questions prior to finalization, please call the reading physician during normal business hours at the phone number beside their name. Procedure Note Yaneli Howell MD - 06/07/2025 Previous: 11/10/2021: RIGHT BYPASS ARTERY FEMORAL POPLITEAL WITH VEINGRAFT. 03/09/2021 stents Right leg. Right: Non-visualization of veins in the thigh. Lower extremity deep and superficial veins are compressible with spontaneous phasic spectralDoppler waveforms and good augmentation. Less than 2.5 mm Great saphenousvein diameter knee to mid calf. Compressible Great saphenous vein--diameter >2.5 mm without intraluminalcontent, calcification or vein wall thickening at the ankle. CompressibleSmall saphenous vein--diameter >2.5 mm without intraluminal content,calcification or vein wall thickenin proximal to mid. Left: Lower extremity deep and superficial veins are compressible with spontaneous phasic spectral Doppler waveforms and good augmentation.Compressible Great saphenous vein--diameter >2.5 mm without intraluminalcontent, calcification or vein wall thickening proximal thigh to ankle, mid calf 2.3mm. Less than 2.5 mmSmall saphenous vein diameter throughout the lower extremity. Conclusions: No evidence of deep or superficial thrombosis of the lowerextremity bilaterally. RIGHT: Inadequate great saphenous vein caliber(<2.0 mm). Marginally adequate small saphenous vein caliber (2.0 to 2.4mm). LEFT: Marginally adequate great and small saphenous vein caliber (2.0 to 2.4 mm). Recommendations: Any questions prior to finalization, please call thereading physician during normal business hours at the phone number besidetheir name. Authorizing ProviderResult TypeResult StatusChristopher Gail Espinoza [facility] [place] ORDERABLESFinal Result * Vas art duplex upr bilateral (06/06/2025 2:59 PM EDT)Anatomical Region LateralityModalityVascularBilateralUltrasoundSpecimen (Source)Anatomical Location / LateralityCollection Method / VolumeCollection TimeReceived Time 06/06/2025 3:13 PM EDT Narrative 06/07/2025 10:06 AM EDT Right: Spectral waveforms with diastolic flow reversal noted in the subclavian, axillary, brachial, radial, ulnar artery without significant color flow disturbance. Radial artery 1.6 mm. No significant decrease in digital PPG amplitude with radial or ulnar artery compression. Left: Spectral waveforms with diastolic flow reversal noted in the subclavian, axillary, brachial, radial, ulnar artery without significant color flow disturbance. Radial artery 1.8 mm. Significant decrease in digital PPG amplitude with radial and ulnar artery compression. Conclusions: RIGHT:Normal upper extremity arterial duplex examination. Negative Tobi's Test.LEFT:Normal upper extremity arterial duplex examination. Incomplete Palmar Arch. Recommendations: Any questions prior to finalization, please call the reading physician during normal business hours at the phone number beside their name. Procedure Note Yaneli Howell MD - 06/07/2025 Right: Spectral waveforms with diastolic flow reversal noted in thesubclavian, axillary, brachial, radial, ulnar artery without significantcolor flow disturbance. Radial artery 1.6 mm. No significant decrease indigital PPG amplitude with radial or ulnar artery compression. Left: Spectral waveforms with diastolic flow reversal noted in thesubclavian, axillary, brachial, radial, ulnar artery without significantcolor flow disturbance. Radial artery 1.8 mm. Significant decrease indigital PPG amplitude with radial and ulnar artery compression. Conclusions: RIGHT:Normal upper extremity arterial duplex examination.Negative Tobi's Test.LEFT:Normal upper extremity arterial duplexexamination. Incomplete Palmar Arch. Recommendations: Any questions prior to finalization, please call thereading physician during normal business hours at the phone number besidetheir name. Authorizing ProviderResult TypeResult StatusChristopher Gail Espinoza [facility] [place]ULAR ORDERABLESFinal Result * Vas carotid duplex bilateral (06/06/2025 2:37 PM EDT)Anatomical Region LateralityModalityVascularBilateralUltrasoundSpecimen (Source)Anatomical Location / LateralityCollection Method / VolumeCollection TimeReceived Time 06/06/2025 2:52 PM EDT Narrative 06/06/2025 6:04 PM EDT Right: Plaque with no significant ICA spectral Doppler or color flow disturbances; ICA 74/21 cm/sec. Antegrade vertebral artery flow. Left: Plaque with no significant ICA spectral Doppler or color flow disturbances; ICA 62/15 cm/sec.??Antegrade vertebral artery flow. Conclusions: BILATERAL: ??Normal extracranial carotid duplex evaluation. ??Antegrade vertebral artery flow. Recommendations: Any questions prior to finalization, please call the reading physician during normal business hours at the phone number beside their name. Procedure Note Yaneli Howell MD - 06/06/2025 Right: Plaque with no significant ICA spectral Doppler or color flow disturbances; ICA 74/21 cm/sec. Antegrade vertebral artery flow. Left: Plaque with no significant ICA spectral Doppler or color flowdisturbances; ICA 62/15 cm/sec. Antegrade vertebral artery flow. Conclusions: BILATERAL: Normal extracranial carotid duplex evaluation.Antegrade vertebral artery flow. Recommendations: Any questions prior to finalization, please call thereading physician during normal business hours at the phone number besidetheir name. Authorizing ProviderResult TypeResult StatusChristopher Reynolds Olga [facility] [place] ORDERABLESFinal Result from Last 3 Months Insurance Advance Directives * Full Code (Latest Code Status on File) Date ActivatedDate InactivatedComments06/13/2025 3:06 PM06/17/2025 3:17 PM Care Teams Team MemberRelationshipSpecialtyStart DateEnd Date Tonya Dye, BUILDING CODE INSPECTOR-THERMO PROCESSOR PCP - GeneralNurse Vltrpifkoiyl79/23/21
--- OUTSIDE RECORDS SUMMARY | 2025-08-19 12:21 | XMS_ITS | Encounter Summary ---
Author Organization [facility] Address [address] [place] [address] Care Team Providers Care Field Attendant Name Role Phone Tonya Dye INSURANCE CLAIMS SPECIALIST Unavailable [phone] Mumtaz Jensen MD Primary Care Provider [phone] Tonya Dye INSURANCE CLAIMS SPECIALIST Unavailable [phone] Encounter Details DateTypeDepartmentCare Team (Latest Contact Info)Fnfbfdziykb52/07/2024Clinisync Result Encounter [facility] Unsolicited Tonya Dye NP [address] [place] [id number] Social History Tobacco UseTypesPacks/DayYears UsedDateSmoking Tobacco: Every DayCigarettes Smokeless Tobacco: NeverAlcohol UseStandard Drinks/WeekCommentsNever0 (1 standard drink = 0.6 oz pure alcohol)PHQ-2AnswerDate RecordedPatient Health Questionnaire-2 [id number] and Gender InformationValueDate RecordedSex Assigned at BirthNot on fileLegal LhnAoki8512/28/2022 10:09 PM EDTGender Identity Not on fileSexual OrientationNot on filedocumented as of this encounter Functional Status * Over the past 2 weeks, how often have you been bothered by any of the following problems?QuestionAnswerDate of AssessmentAuthorLittle interest or pleasure in doing thingsNot at all03/27/2025 2:22 PM Alka Bruce MA Feeling down, depressed, or hopelessNot at all03/27/2025 2:22 PM Alka Bruce MAPatient Health Questionnaire-2 Yaolk476 2:22 PM EDT Alka Ribera MA * QuestionAnswerDate of AssessmentAuthorTrouble falling or staying asleep, or sleeping too muchSeveral days03/27/2025 2:22 PM Alka Bruce MA Feeling tired or having little energySeveral days03/27/2025 2:22 PM EDT Alka Ribera MAPoor appetite or overeatingNot at all03/27/2025 2:22 PM Alka Bruce, MAFeeling bad about yourself - or that [...] 2:22 PM Alka Bruce MAPatient Health Questionnaire-9 Hahdi201 2:22 PM Alka Bruce MA documented as of this encounter Plan of Treatment Not on file documented as of this encounter Procedures Procedure NamePriorityDate/TimeAssociated DiagnosisCommentsVASC US CAROTID ARTERY DUPLEX XOBPWLPHI68/07/2024 5:23 PM EST documented in this encounter Results * Vascular US carotid artery duplex bilateral (08/22/2024 5:23 PM EST)Anatomical RegionLateralityModalityNeckUltrasoundSpecimen (Source)Anatomical Location / LateralityCollection Method / VolumeCollection TimeReceived Time08/22/2024 5:23 PM EST Narrative 08/22/2024 5:[address] [facility] ?[address] ? [place] [address] ? Ultrasound Report ? Signed ? Patient: MYNOR,TERRI J ?MR#: [id number] ?? : 1950 ?Acct:[id number] ?? Age/Sex: 74 / M ?ADM Date: 08/22/24 ?? Loc: [place] ? Attending Dr: Tonya Dye NP ? Ordering Physician: Tonya Dye NP ?? Date of Service: 08/22/24 ?? Procedure(s): US carotid duplex BI ?? Accession Number(s): [id number] ? cc: Tonya Dye NP ? [facility] ? [address] ? [place] [address] ? Patient Name: ?? TERRI LOWE ? MRN: [facility]:[id number] ? date: 1950 ?Sex: M ?? Assigned Patient Location: ?? Current Patient Location: [place] ?? Accession/Order Number: [id number] ?? Exam Date: 08/22/2024 ??14:05 ?Report Date: 08/22/2024 ??17:23 ? At the request of: ?? TONYA DYE ? Procedure: ??US carotid duplex BI ? DUPLEX ULTRASOUND EXAMINATION OF THE CAROTID ARTERIES. ? COMPARISON: None. ? HISTORY / INDICATIONS: Carotid bruit. ? TECHNIQUE: Bilateral common carotid arteries, extracranial internal and ?? external carotid arteries are evaluated with shaw-scale imaging, color ?? Doppler, ?? and spectral analysis according to a standard protocol. ICA-CCA ratios are ?? calculated with in home sales representative peak-systolic velocities and recorded. ?? Vertebral ?? arteries are evaluated in one segment to evaluate for patency and character of ? flow. Comparison with previous evaluation is performed when available. Unless ?? otherwise specified, all velocities are measured in cm/sec. Carotid stenosis ?? is ?? reported according to validated velocity parameters, similar to NASCET ?? criteria. ? FINDINGS: ?? Right Carotid: Plaque was noted. Velocity measurements as follows: Internal ?? Carotid Artery 58/13 and 62/18. ICA to CCA ratio: 0.8. ? Left Carotid: Plaque was noted. Velocity measurements as follows: Internal ?? Carotid Artery 35/6 and 47/8. ICA to CCA ratio: 1.0. ? Antegrade flow was seen in both vertebral arteries. ? CONCLUSION: ? 1. Less than 50% stenosis of the right ICA. ? 2. Less than 50% stenosis of the left ICA. ? 3. Vertebral arteries are patent and demonstrate antegrade flow. ? Electronically authenticated by: Gail JESUS ??HAILEE ?? Date: 08/22/2024 ??17:23 ? Dictated By: ?Gail Garcia M.D. ? Signed By: ?08/22/246 ? DD/ 1723 ? TD/TT: ? Salvage Inspector: Procedure Note Radiology, Radiologist, MD - 08/22/2024 [facility] [place] [id number] Ultrasound Report Signed Patient: TERRI LOWE JMR#: [id number] : 1950cct:[id number] Age/Sex: 74 / MADM Date: 08/22/24 Loc: [place] Attending Dr: Tonya Dye NP Ordering Physician: Tonya Dye NP Date of Service: 08/22/24 Procedure(s): US carotid duplex BI Accession Number(s): [id number] cc: Tonya Dye NP [address] [address] Patient Name: TERRI LOWE MRN: [id number] date: 1950 Sex: M Assigned Patient Location: [place] Current Patient Location: [place] Accession/Order Number: [id number] Exam Date: 08/22/2024 14:05 Report Date: 08/22/2024 [...] standard protocol. ICA-CCA ratios are calculated with in home sales representative peak-systolic velocities and recorded. Vertebral [...] 17:23 Dictated By: Gail Garcia M.D. Signed By:08/22/241725 DD/ 22 TD/TT: Salvage Inspector: Authorizing ProviderResult TypeResult StatusLisa Hardik NPIMG US PROCEDURES Final Result documented in this encounter Visit Diagnoses Not on filedocumented in this encounter Additional Health Concerns AssessmentNoted TimePHQ-9 Depression Total Score: 305 11:39 AM EDT documented as of this encounter Care Teams Team MemberRelationshipSpecialtyStart DateEnd Date Mumtaz Jensen MD PCP - GeneralFamily Medicine11/28/23 Tonya Dye NP [address] [place] [address] PCP - ACO Reach11/22/24 Tonya Dye NP Referring PhysicianNurse Practitioner03/09/23documented as of this encounter
--- OUTSIDE RECORDS SUMMARY | 2025-08-19 12:21 | XMS_ITS | Clinical Summary ---
Author Organization [facility] Address [address] [place] [address] Care Team Providers Care Business Broker Name Role Phone Tonya Dye GLUING PRESSMAN Unavailable [phone] Mumtaz Jensen MD Primary Care Provider Tonya Dye GLUING PRESSMAN Unavailable [phone] Allergies Active AllergyReactionsCriticalityNoted HubpBonziompJiriowdf31/05/2023 QvnihkxgrfoamEfmgkdb32/25/4601ZvevjdqjgegEahxsje31/25/2023LiraglutideUnknown 3Penicillin GZoogfgj53/25/2023 Medications MedicationSigDispense QuantityRefillsLast FilledStart DateEnd DateStatus Ventolin HFA 108 (90 Base) MCG/ACT inhaler Inhale 2 puffs every 4 (four) hours if needed for wheezing or shortness of ozpvha7403/12/2024ctive tamsulosin (Flomax) 0.4 MG 24 hr capsule Take 0.8 mg by mouth at scvomwv47/23/2024Active amLODIPine (Norvasc) 5 MG tablet Indications:Primary hypertensionTake 1 tablet (5 mg) by mouth Daily 90 tablet 5Active fluticasone (Flonase) 50 MCG/ACT nasal spray Indications:Allergic rhinitis, unspecified seasonality, unspecified trigger Administer 2 sprays into each nostril Daily Shake gently. Before first use, prime pump. After use, clean tip and replace cap. 48 g 5Active gabapentin (Neurontin) 600 MG tablet Indications:Diabetic polyneuropathy associated with type 2 diabetes mellitus (HCC)1 am , 1 in the afternoon, and 2 at bedtime 360 tablet 5Active glipiZIDE (Glucotrol) 10 MG tablet Indications:Uncontrolled type 2 diabetes mellitus with hyperglycemia (HCC)Take 1 tablet (10 mg) by mouth in the morning and 1 tablet (10 mg) in the evening. Take before meals. 180 tablet 5Active metFORMIN (Glucophage) 1000 MG tablet Indications:Uncontrolled type 2 diabetes mellitus with hyperglycemia (HCC)Take 1 tablet (1,000 mg) by mouth in the morning and 1 tablet (1,000 mg) in the evening. Take with meals. 180 tablet 5Active metoprolol tartrate (Lopressor) 50 MG tablet Indications:Primary hypertension,PAD (peripheral artery disease)Take 1 tablet (50 mg) by mouth in the morning and 1 tablet (50 mg) before bedtime. Take 50 mg by mouth. 180 tablet 5Active pantoprazole (ProtoNix) 40 MG EC tablet Indications:Acute gastritis without hemorrhage, unspecified gastritis typeTake 1 tablet (40 mg) by mouth in the morning. Take before meals. 90 tablet 5Active pioglitazone (Actos) 30 MG tablet Indications:Uncontrolled type 2 diabetes mellitus with hyperglycemia (HCC)Take 1 tablet (30 mg) by mouth Daily 90 tablet 5Active simvastatin (Zocor) 20 MG tablet Indications:PAD (peripheral artery disease)Take 1 tablet (20 mg) by mouth at bedtime 1 po daily 90 tablet 5Active dapagliflozin (Farxiga) 10 MG Indications:Uncontrolled type 2 diabetes mellitus with hyperglycemia (HCC)Take 1 tablet (10 mg) by mouth Daily 90 tablet 5Active clopidogrel (Plavix) 75 MG tablet Take 75 mg by mouth Daily5Active traZODone (Desyrel) 50 MG tablet Indications:Primary insomniaTake 1 tablet (50 mg) by mouth at bedtime 30 tablet 5Active glucose blood (Accu-Chek Nicolle Plus) test strip Indications:Uncontrolled type 2 diabetes mellitus with hyperglycemia (HCC)1 each by Other route Daily 1 each by Other route Daily 300 strip /269560/Expired Active Problems ProblemNoted DateDiagnosed DateAcute gastric ulcer without hemorrhage or awtaxrsyvgw84/02/2025bnormal computed tomography of abdomen and pelvis 04/16/2025bdominal pain, pixnxbdtiqx41/24/2025 Assessment & Plan (04/08/2025 1:51 PM EDT): Check labs Suspicion divertic, but possible gallbladder RUQ pain04/08/2025Primary tibhzbmf38/12/2025 Assessment & Plan (03/27/2025 2:57 PM EDT): Awake off and on, cannot shut off mind Add trazodone See if helps Other acute arldttucu62/16/2025Mild nonproliferative diabetic retinopathy of both eyes without macular edema associated with type 2 diabetes mellitus 11/22/2024 Overview (11/22/2024): Eye exam 11/21/24 Type 2 diabetes mellitus with diabetic peripheral angiopathy without gangrene 11/20/2024Type 2 diabetes mellitus, without long-term current use of insulin 08/20/2024 Assessment [...] and simple sugars. Current meds: farxiga, statin, MATAIS, actos, and metformin A1c 8.9% 11/20/24 Assessment [...] test as well Hemorrhage due to aspirin yhffwnw4908/20/2024 Assessment & Plan (08/20/2024 2:44 PM EST): Was in hospital with GI bleeding, so asa was discontinued Bilateral carotid csbyns6608/20/2024 Assessment & Plan (08/20/2024 2:56 PM EST): Hx PAD, CAD , HTN and DM Check US Acute gastritis without zxawjeksnx72/07/2024 Assessment & Plan (07/22/2024 3:03 PM EDT): Symptoms improved with use of PPI, as well as carafate Will have him restart the pantoprazole Fu in 4 weeks Type 2 diabetes mellitus with circulatory disorder, without long-term current use of bjkvozu9106/04/2024 Assessment & Plan (03/27/2025 2:50 PM EDT): [...] Fu in 3 months Nonrheumatic aortic valve jmwhnobw52/05/2024 Overview (03/20/2024): ECHO 03/10/24: EF 60-65%, diastolic dysfunction, AV: severe calcified , severe diminished mobility Assessment & Plan (04/04/2024 10:07 AM EDT): Scheduled for heart cath in April Elevated brain natriuretic peptide (BNP) level03/14/2024 Assessment & Plan (03/14/2024 11:56 AM EDT): Will obtain ECHO report from hospitalization Screening for prostate gmhrtj9102/27/2024 Overview (04/02/2025): 0.47, 03/05/24 04/02/25 PSA 0.47 Encounter for subsequent annual wellness visit (AWV) in Medicare patient 02/27/2024 [...] conditions allow) Follow up yearly and prn Gfqovslieqnwqr03/14/2024 Assessment & Plan (04/08/2025 1:52 PM EDT): Check labs, if pain worsens go to Er Allergies to PCN and cipro Assessment & Plan (08/20/2024 2:47 PM EST): Currently no symptoms Assessment & Plan (02/27/2024 12:55 PM EDT): resolved Overweight (BMI 25.0-29.9)02/27/2024igarette smoker motivated to quit02/08/2024 Overview (02/27/2024): Counseled on smoking cessation in length. For at least 4 minutes Urine frydweeay43/02/2024 Assessment & Plan (01/16/2024 10:27 AM EDT): Check UA and culture Pndxuahp65/01/2024Neck pain11/29/2023Heart xqchvp8111/29/2023 Assessment & Plan (06/04/2024 2:10 PM EDT): Reveiwed NOHEMI Bilateral carpal tunnel /14/2024Frequent PVCs11/29/2023bnormal stress test11/29/2023inging in ears, right11/29/2023opliteal cyst, right11/29/2023 Olecranon bursitis of right elbow11/29/2023Olecranon bursitis of left elbow 11/29/2023Foraminal stenosis of cervical hzlhnf6911/29/2023DD (degenerative disc disease), gzllvgtu17/14/2024Type 2 diabetes mellitus with unspecified diabetic retinopathy without macular edema11/29/2023llergic wkazuiou89/14/2024geusia 11/29/2023Type 2 diabetes mellitus with diabetic kfrawoppjwkors33/14/2024 Assessment & Plan (03/27/2025 6:55 AM EDT): Is currently taking gabapentin OARRS reviewed Recommend tight blood sugar control, proper fitting shoes, freq foot checks Assessment & Plan (11/20/2024 6:48 AM EST): Is currently taking gabapentin OARRS reviewed Recommend tight blood sugar control Assessment & Plan (11/20/2024 6:45 AM EST): >>ASSESSMENT AND PLAN FOR DIABETIC POLYNEUROPATHY ASSOCIATED WITH TYPE 2 DIABETES MELLITUS ([facility]) WRITTEN ON 01/16/2024 10:23 AM BY TONYA DYE NP OARRS reviewed Increase gabapentin dose 600mg Fu in 6 weeks Assessment & Plan (11/20/2024 6:45 AM EST): >>ASSESSMENT AND PLAN FOR DIABETIC POLYNEUROPATHY ASSOCIATED WITH TYPE 2 DIABETES MELLITUS ([facility]) WRITTEN ON 04/04/2024 10:06 AM BY TONYA DYE NP Continue current gabapentin dose Fu in 2 months Assessment & Plan (11/20/2024 6:45 AM EST): >>ASSESSMENT AND PLAN FOR DIABETIC POLYNEUROPATHY ASSOCIATED WITH TYPE 2 DIABETES MELLITUS ([facility]) WRITTEN ON 06/04/2024 2:10 PM BY TONYA DYE NP Cont w memo Assessment & Plan (11/20/2024 6:45 AM EST): >>ASSESSMENT AND PLAN FOR DIABETIC POLYNEUROPATHY ASSOCIATED WITH TYPE 2 DIABETES MELLITUS ([facility]) WRITTEN ON 08/20/2024 7:01 AM BY TONYA DYE NP Continue with gabapentin Tight glucose control BPH (benign prostatic hyperplasia)10/31/2023 Assessment & Plan (08/20/2024 2:47 PM EST): Improved with increase dose of flomax No other work up at this time Assessment & Plan (02/27/2024 12:54 PM EDT): Much better w increase in prostate meds Bpfsvyzdsdf51/16/2024Diabetic hdwauzdacld65/16/2024Diastolic dysfunction 10/31/2023 Assessment & Plan (03/27/2025 6:55 AM EDT): Per ECHO findings Current meds: amlodipine, farxiga, b shima HTN (hypertension)10/31/2023 Assessment & Plan (04/08/2025 1:51 PM EDT): [...] EST): No changes needed in medication regimine Fohurnpgycuszg90/16/2024 Assessment & Plan (03/27/2025 6:58 AM EDT): On statin therapy Recommend yearly lab checks and prn dose changes Assessment & Plan (11/20/2024 6:59 AM EST): On statin therapy Recommend yearly lab checks and prn dose changes Iron deficiency ltrjbr3910/31/2023 Assessment & Plan (11/20/2024 6:58 AM EST): Check labs Assessment & Plan (02/27/2024 12:54 PM EDT): Check labs Lumbar hvmceywgaitiv21/16/2024Mass of adrenal gland10/31/2023anic disorder 10/31/2023VCs (premature ventricular contractions)10/31/2023Seasonal allergies 10/31/2023Tobacco user10/31/2023 Assessment & Plan (03/27/2025 6:58 AM EDT): The patient has been advised of the risks of continued smoking: stroke, NH, all forms of cancer, lung disease, and . Options for quitting smoking include: cold turkey, hypnosis, acupuncture, nicotine replacement meds(gum, lozenges, and patches), Buproprion, and Varenicline. At this time pt is encouraged to evaluate their goals for wanting to quit smoking, and reach out toprovider when ready to start this process Assessment & Plan (11/20/2024 6:59 AM EST): The patient has been advised of the risks of continued smoking: stroke, NH, all forms of cancer, lung disease, and . Options for quitting smoking include: cold turkey, hypnosis, acupuncture, nicotine replacement meds(gum, lozenges, and patches), Buproprion, and Varenicline. At this time pt is encouraged to evaluate their goals for wanting to quit smoking, and reach out toprovider when ready to start this process Assessment & Plan (08/20/2024 7:02 AM EST): The patient has been advised of the risks of continued smoking: stroke, NH, all forms of cancer, lung disease, and . Options for quitting smoking include: cold turkey, hypnosis, acupuncture, nicotine replacement meds(gum, lozenges, and patches), Buproprion, and Varenicline. At this time pt is encouraged to evaluate their goals for wanting to quit smoking, and reach out toprovider when ready to start this process Assessment & Plan (06/04/2024 2:11 PM EDT): The patient has been advised of the risks of continued smoking: stroke, NH, all forms of cancer, lung disease, and . Options for quitting smoking include: cold turkey, hypnosis, acupuncture, nicotine replacement meds(gum, lozenges, and patches), Buproprion, and Varenicline. At this time pt is encouraged to evaluate their goals for wanting to quit smoking, and reach out toprovider when ready to start this process Assessment & Plan (04/04/2024 10:08 AM EDT): The patient has been advised of the risks of continued smoking: stroke, NH, all forms of cancer, lung disease, and . Options for quitting smoking include: cold turkey, hypnosis, acupuncture, nicotine replacement meds(gum, lozenges, and patches), Buproprion, and Varenicline. At this time pt is encouraged to evaluate their goals for wanting to quit smoking, and reach out toprovider when ready to start this process Vitamin B12 arhqhkatvu77/16/2024Anosmia due to nasal mucosa fzmtexn7209/19/2023 Assessment & Plan (11/29/2023 4:38 PM EST): [...] differentials such as : age, tumor, sinus Juqdknvqu87/25/2023Right carpal tunnel /25/2023Hearing loss06/09/2022 Palatal hpnswk9506/09/20224980Phoohypf06/25/2022re-op exam10/26/2021AD (peripheral artery disease)09/21/2021 Overview (10/31/2023): Added automatically from request for surgery [id number] Assessment & Plan (11/20/2024 6:55 AM EST): [...] his leg pain is more related neuropathy Ahwoursjnfwh70/07/2021 Overview (02/27/2024): Added automatically from request for surgery [id number] Last Assessment & Plan: Arterial Duplex US RLE PVR Continue Plavix and statin. Smoking cessation. Sebaceous cyst11/07/2019 Assessment & Plan (11/29/2023 4:36 PM EST): Still waiting on approval from vascular to stop plavix for proceedure Resolved Problems ProblemNoted DateDiagnosed DateResolved DateHeart failure, sewgwvnkkwb20/05/2025 03/27/2025 Assessment & Plan (11/20/2024 6:53 AM EST): Per ECHO findings Farxiga and b shima therapy Pneumonia due to infectious migvnzrp82 Assessment & Plan (04/04/2024 10:06 AM EDT): Resolved, no breathing issues Assessment & Plan (03/14/2024 11:55 AM EDT): Finish atb, no acute distress today Fu in 3 weeks for recheck Discussed although no formal testing likely COPD/Emphysema At this time no further testing Peripheral lbrdqexile68/14/202402/Uncontrolled type 2 diabetes mellitus with wvcjxhymctwtj68 Assessment & Plan (04/04/2024 10:07 AM EDT): [...] this time 3 months ago 7.8% Incisional tuyiqirnp84/MI 29.0-29.9,adult/ Ibvxedov41iabetic penbejhdnl67/16/202411/02/2024 Kkhbjmtvnagwqh41/25/202306/Mild aortic mkwlgfam38 Obesity (BMI 30.0-34.9)/raining postoperative wound / Immunizations ImmunizationAdministration DatesNext DueInfluenza, High Dose Seasonal, Preservative Free07/25/2019Influenza, High-dose Seasonal, Quadrivalent, Preservative Free08/03/2023Influenza, injectable, quadrivalent, preservative free07/27/2022,06/30/2020Influenza, trivalent, ndbypxejll90/27/2024Pneumococcal Conjugate PCV 131Pneumococcal Polysaccharide UOSV068011/07/2019Tetanus toxoid, lqqqlbau14/17/2003Zoster, Fgoapnjpjke06/04/2023Zoster, live08/26/2017 Family History RelationNameStatusCommentsFatherDeceasedMotherDeceased Social History Tobacco UseTypesPacks/DayYears UsedDateSmoking Tobacco: Every DayCigarettes Smokeless Tobacco: Never Tobacco Cessation:Ready to Q uit: Not Asked; Counseling Given: Not Answered Alcohol UseStandard Drinks/WeekCommentsNever0 (1 standard drink = 0.6 oz pure alcohol)PHQ-2AnswerDate RecordedPatient Health Questionnaire-2 Wqwcc498 Sex and Gender InformationValueDate RecordedSex Assigned at BirthNot on file Legal AjbUpma2612/28/2022 10:09 PM EDTGender IdentityNot on fileSexual Orientation Not on file Last Filed Vital Signs Vital SignReadingTime TakenCommentsBlood Siehagbp806/7206 1:10 PM EDT Cnrqm936804/08/2025 1:10 PM JDPFlurbyhndtu95.6 ??C (97.8 ??F)04/08/2025 1:10 PM EDTRespiratory Asoq014404/08/2025 1:10 PM EDTOxygen Eazdalicby21%04/08/2025 1:10 PM EDTInhaled Oxygen Concentration--Pnnmcf54.4 kg (186 lb)04/08/2025 1:10 PM EDT Anuofb252.2 cm (5' 7 )08/20/2024 2:27 PM ESTBody Mass Index29.13110/20/2023 2:27 PM EST Plan of Treatment Health MaintenanceDue DateLast DoneCommentsCT Ppfjqfkwmjfu1951FIT-DNA 1950FIT1950FOBT1950 6472Eoaeryrydgxla1951TaP/Tdap/Td Vaccines (1 - Tdap)1958COVID-19 Vaccine ( season)2025 07/12/2024, 09/14/2023, 01/19/2022, Additional history existsInfluenza Vaccine (#1)/, 08/03/2023, 07/27/2022, Additional history exists Diabetes: Hemoglobin A1C/, 03/27/2025, 11/20/2024, Additional history existsDiabetes: Retinopathy Ahlagludh11/03/2025, 11/22/2023, 04/15/2022Medicare Annual Wellness (AWV), 02/27/2024, 02/27/2024iabetes: Urine Protein Kthbnagli79/, 01/27/2023 Wzinptkvszj68/01/202701/10/2016Colorectal Cancer Axuspfywk85/01/2027Pneumococcal Vaccine: 65+ SomgbPucxrdisn91/23/2020, 08/07/2019HIB VaccinesAged OutNo longer eligible based on patient's age to complete this topicHPV VaccinesAged OutNo longer eligible based on patient's age to complete this topicHepatitis A VaccinesAged OutNo longer eligible based on patient's age to complete this topic Hepatitis B VaccinesAged OutNo longer eligible based on patient's age to complete this topicIPV VaccinesAged OutNo longer eligible based on patient's age to complete this topicMeningococcal B VaccineAged OutNo longer eligible based on patient's age to complete this topicMeningococcal VaccineAged OutNo longer eligible based on patient's age to complete this topicRotavirus VaccinesAged Out No longer eligible based on patient's age to complete this topic Procedures Procedure NamePriorityDate/TimeAssociated DiagnosisCommentsPOCT GLYCOSYLATED HEMOGLOBIN (HGB A1C)Ksqbhhd3603/27/2025 2:37 PM EDT Type 2 diabetes mellitus with diabetic peripheral angiopathy without gangrene, without long-term current use of insulin (HCC) from Last 3 Months or Most Recently Relevant to Health Maintenance Insurance Care Teams Team MemberRelationshipSpecialtyStart DateEnd Date Mumtaz Jensen MD [facility] - [facility] Tonya Dye NP [address] [place] [address] PCP - ACO [facility]11/22/24 Tonya Dye NP Referring PhysicianNMer[facility]03/09/23
--- OUTSIDE RECORDS SUMMARY | 2025-08-19 12:21 | XMS_ITS | Encounter Summary ---
Author Organization [employer] [facility] tem Address [id number] [place] [address] Care Team Providers Care Reinforcing Steel Erector Name Role Phone Tonya Dye NUCLEAR POWER PLANT ENGINEER-SAND BUFFER Primary Care Provider Encounter Details DateTypeDepartmentCare Team (Latest Contact Info)Chhehmvugix07/27/2025Travel Social History Tobacco UseTypesPacks/DayYears UsedDateSmoking Tobacco: Every DayCigarettes0.530 Smokeless Tobacco: Never Comments:reports down to 10 cigarettes a day 11/25/21 Alcohol UseStandard Drinks/WeekCommentsNot Currently0 (1 standard drink = 0.6 oz pure alcohol)[facility] UtilitiesAnswerDate RecordedIn the past 12 months has the [employer], gas, oil, or water [employer] threatened to shut off services in your home?No06/13/2025UDIT-CAnswerDate RecordedQ1: How often do you have a drink containing alcohol?Never06/13/2025Q2: How many drinks containing alcohol do you have on a typical day when you are drinking?Patient does not drink06/13/2025Q3: How often do you have six or more drinks on one occasion?Never06/13/2025PHQ-2 AnswerDate RecordedTotal Vngac734PRAPARE - TransportationAnswerDate RecordedIn the past 12 months, [...] as a part of a household?No06/13/2025 ChildcareAnswerDate HlyzhnrpNztmnofcyWttqvmi64/12/2019EmploymentAnswerDate BapfmvmiMqwsbajuatByftzsh54/12/2019Hunger ScreeningAnswerDate RecordedWithin the past 12 months we worried whether our food would run out before we got money to buy more.Never True07/15/2025Within the past 12 months the food we bought just didn't last and we didn't have money to get more.Never True07/15/2025Purpose - LifeAnswerDate RecordedPurpose and direction in uxddEqrzwwi68/11/2021ex and Gender InformationValueDate RecordedSex Assigned at BirthNot on fileLegal Sex Male05/21/2015 11:30 AM EDTGender IdentityNot on fileSexual OrientationNot on filedocumented as of this encounter Plan of Treatment DateTypeDepartmentCare Team (Latest Contact Info)Empdjaebagl53/10/2025 2:00 PM ESTFollow Up Anticoagulation [facility] Med[facility] [address] [place] [address] 09/15/2025 8:30 AM ESTAncillary Procedure [facility] [address] [place] [phone] Tamara Rebolledo MD [address] [place] [address] 03/04/2026 2:15 PM EDTAppointment [facility] [address] [place] [phone] Robyn Frazier, NUCLEAR POWER PLANT ENGINEER-SAND BUFFER [address] [place] [address] 03/04/2026 3:00 PM EDTAppointment [facility] [address] [place] [phone] Robyn Frazier, NUCLEAR POWER PLANT ENGINEER-SAND BUFFER [address] [place] [address] 04/02/2026 11:50 AM EDTOffice Visit [facility] [address] [place] [address] Yaneli Howell MD [address], [address] [place] [address] documented as of this encounter Goals GoalPatient Goal TypeAssociated ProblemsRecent ProgressPatient-Stated?Author <enter goal here> Gabriella Scott, RN Note: Evaluation of progress towards goal: patient progressing toward safe discharge. documented as of this encounter Visit Diagnoses Not on filedocumented in this encounter Additional Health Concerns AssessmentNoted TimePHQ-9 Depression Total Score: 3:57 PM EDTA Body Mass Index follow-up plan has been documented for the qxsmtjn9411/14/2019 2:01 PM ESTdocumented as of this encounter Care Teams Team MemberRelationshipSpecialtyStart DateEnd Date Tonya Dye, NUCLEAR POWER PLANT ENGINEER-SAND BUFFER PCP - GeneralNurse Jforxoroelqk57/23/21documented as of this encounter
--- OUTSIDE RECORDS SUMMARY | 2025-08-19 12:29 | XMS_ITS | CCD ---
Author Organization [facility] Care Team Providers Care Proof Coins Inspector Name Role Phone Shen Luis Unavailable Kennedi Ocasioew Unavailable [phone] TONYA DYE Primary Care Physician Bernadine SARAVIA Attending Unavailable AICHBRETT, TONYA CAMARGO J Referring Unavailabl e Bernadine SARAVIA Attending Unavailable AICHBRETT, TONYA Reynolds Referring Unavailabl e Bernadine SARAVIA Attending Unavailable Bernadine SARAVIA Attending Unavailable AICHHOLZ, COLLECTION SUPPORT SPECIALIST TONYA Consulting Unavailable AICHHOLZ, COLLECTION SUPPORT SPECIALIST TONYA Primary Care Unavailable AICHHOLZ, COLLECTION SUPPORT SPECIALIST TONYA Attending Unavailable AICHHOLZ, COLLECTION SUPPORT SPECIALIST TONYA Admitting Unavailable AICHHOLZ, COLLECTION SUPPORT SPECIALIST TONYA Consulting Unavailable AICHHOLZ, COLLECTION SUPPORT SPECIALIST TONYA Primary Care Unavailable AICHHOLZ, COLLECTION SUPPORT SPECIALIST TONYA Attending Unavailable AICHHOLZ, COLLECTION SUPPORT SPECIALIST TONYA Admitting Unavailable ZIEBLILI, DR BHAVANA Pinzon Consulting Unavailable ABBAS, DR ANNE Consulting Unavailable AICHHOLZ, COLLECTION SUPPORT SPECIALIST TONYA Primary Care Unavailable ABBAS, DR ANNE Attending Unavailable MILLICENT, DR ANNE Admitting Unavailable PRIETO, DR BHAVANA Pinzon Consulting Unavailable VALDES ., MR KELLER Consulting Unavailable AICHHOLZ, COLLECTION SUPPORT SPECIALIST TONYA Primary Care Unavailable VALDES ., MR KELLER Attending Unavailable VALDES ., MR KELLER Admitting Unavailable AICHHOLZ, COLLECTION SUPPORT SPECIALIST TONYA Consulting Unavailable AICHHOLZ, COLLECTION SUPPORT SPECIALIST TONYA Primary Care Unavailable AICHHOLZ, COLLECTION SUPPORT SPECIALIST TONYA Attending Unavailable AICHHOLZ, COLLECTION SUPPORT SPECIALIST TONYA Admitting Unavailable PRIETO, DR BHAVANA Pinzon Consulting Unavailable CARLOS, DR IRENE Pinzon Procedure Practitioner Unavailkatja GONZALEZ, DR IRENE Pinzon Consulting Unavailable DHAVAL, SHAIKH Tucker Attending Unavailable SHAIKH PUENTES H Admitting Unavailable AICHHOLZ, COLLECTION SUPPORT SPECIALIST TONYA Primary Care Unavailable CHIO Cid, DR BERNADINE Pink Consulting Unavaila rg BARROSO ., DR BERNADINE Pink Procedure Practitioner U IAN Caputo Consulting Unavailable SHAIKH Tucker PUENTES Consulting Unavailable SOFIA KWONG Consulting Unavailable BHAVANA MCCANN Consulting Unavailable NILL ., DR COLINDRES Consulting Unavailable AICHHOLZ, COLLECTION SUPPORT SPECIALIST TONYA Primary Care Unavailable NILL ., DR COLINDRES Attending Unavailable NILL ., DR COLINDRES Admitting Unavailable DASHA JOINER Consulting Unavailable AICHHOLZ, COLLECTION SUPPORT SPECIALIST TONYA Primary Care Unavailable NILL ., DR COLINDRES Attending Unavailable NILL ., DR COLINDRES Admitting Unavailable CARLOS, DR IRENE Pinzon Consulting Unavailable GONZALEZ, DR IRENE Pinzon Attending Unavailable GONZALEZ, DR IRENE Pinzon Admitting Unavailable AICHHOLZ, COLLECTION SUPPORT SPECIALIST TONYA Primary Care Unavailable ROSARIO BLANCO Consulting Unavailable AICHHOLZ, COLLECTION SUPPORT SPECIALIST TONYA Consulting Unavailable AICHHOLZ, COLLECTION SUPPORT SPECIALIST TONYA Primary Care Unavailable AICHHOLZ, COLLECTION SUPPORT SPECIALIST TONYA Attending Unavailable AICHHOLZ, COLLECTION SUPPORT SPECIALIST TONYA Admitting Unavailable AICHHOLZ, COLLECTION SUPPORT SPECIALIST TONYA Consulting Unavailable AICHHOLZ, COLLECTION SUPPORT SPECIALIST TONYA Primary Care Unavailable AICHHOLZ, COLLECTION SUPPORT SPECIALIST TONYA Attending Unavailable AICHHOLZ, COLLECTION SUPPORT SPECIALIST TONYA Admitting Unavailable AICHHOLZ, COLLECTION SUPPORT SPECIALIST TONYA Consulting Unavailable AICHHOLZ, COLLECTION SUPPORT SPECIALIST TONYA Primary Care Unavailable AICHHOLZ, COLLECTION SUPPORT SPECIALIST TONYA Attending Unavailable AICHHOLZ, COLLECTION SUPPORT SPECIALIST TONYA Admitting Unavailable ABBAS, DR ANNE Consulting Unavailable AICHHOLZ, COLLECTION SUPPORT SPECIALIST TONYA Primary Care Unavailable ABBAS, DR ANNE Attending Unavailable ABBAS, DR ANNE Admitting Unavailable [place], DR BINDU Brown Consulting Unavailable AICHHOLZ, COLLECTION SUPPORT SPECIALIST TONYA Primary Care Unavailable AICHHOLZ, COLLECTION SUPPORT SPECIALIST TONYA Attending Unavailable AICHHOLZ, COLLECTION SUPPORT SPECIALIST TONYA Admitting Unavailable AICHHOLZ, COLLECTION SUPPORT SPECIALIST TONYA Consulting Unavailable Aichholz, Tonya J Primary Care Provider [phone] MD Shen Luis Attending Provider Aichholz INTERFACE DEVELOPER, Tonya Unavailable Mumtaz Jensen MD Primary Care Provider Ranulfo Zavala Attending Unavailable Aichholz, Tonya J Primary Care Unavailable Ranulfo Zavala Admitting Unavailable Shen Luis Admitting Unavailable Shen Luis Attending Unavailable Aichholz, Tonya J Primary Care Unavailable Ranulfo Zavala Admitting Unavailable Ranulfo Zavala Attending Unavailable AichholTonya frye Primary Care Unavailable Aichholz INTERFACE DEVELOPER, Tonya Unavailable Aichholz FINGERPRINT EXPERT-COLLECTION SUPPORT SPECIALIST, Tonya Reynolds Primary Care Provider Eloisaholmelva FINGERPRINT EXPERT-COLLECTION SUPPORT SPECIALIST, Tonya Reynolds Primary Care Provider Aictuckerholmelva INTERFACE DEVELOPER, Tonya Unavailable TONYA DYE Attending Unavailable AICHHOLZ, TONYA Attending Unavailable AICHHOLZ, TONYA Attending Unavailable AICHHOLZ, TONYA Attending Unavailable AICHHOLMelva, TONYA Attending Unavailable AICTEODORA, TONYA Attending Unavailable BARB REINA Referring Unavailable AICTEODORA, TONYA Reynolds Primary Care Unavailable JESSICA MÉNDEZ Attending Unavailable TONYA DYE Referring Unavailable AICHHOLMelva, TONYA Reynolds Primary Care Unavailable Marlene KRAMER Attending Unavailable VANESSA PERSAUD Referring Unavailable NEPTALIHBRETT, TONYA J Primary Care Unavailable MIAH FELIX Admitting Unavailable MIAH FELIX Attending Unavailable TONYA DYE Primary Care Unavailable Marlene KRAMER Referring Unavailable TONYA DYE Primary Care Unavailable SYDNI FOY Attending Unavailab le AICHTONYA WEST Referring Unavailable AICHHOLMelva, TONYA Reynolds Primary Care Unavailable Marlene KRAMER Attending Unavailable TONYA DYE Referring Unavailable TONYA DYE Primary Care Unavailable SYDNI FOY Referring Unavailab le AICHHOLZ, TONYA Reynolds Primary Care Unavailable SYDNI FOY Referring Unavailab le AICHHOLMelva, TONYA Reynolds Primary Care Unavailable SYDNI FOY Admitting Unavailab le SYDNI FOY Attending Unavailab le AICHHOLTONYA Frye Primary Care Unavailable Marlene KRAMER Consulting Unavailable GREGORIA ZARATE Consulting Unavailable TONYA DYE J Referring Unavailable AICHHOLMelva, TONYA J Primary Care Unavailable [facility]NAG[facility], [facility] Referr ing Unavailable AICHTONYA WEST J Primary Care Unavailable Aichholz INTERFACE DEVELOPER-C, Tonya Reynolds Primary Care Provider Aichholz INTERFACE DEVELOPER-C, Tonya Reynolds Attending Provider MICI, VANESSA Attending Unavailable AICHHOLZ, TONYA J Referring Unavailable AICHHOLZ, TONYA J Primary Care Unavailable MICI, VANESSA Attending Unavailable MICI, VANESSA Referring Unavailable AICHHOLZ, TONYA J Primary Care Unavailable MICI, VANESSA Referring Unavailable AICHHOLZ, TONYA J Primary Care Unavailable Marlene KRAMER Referring Unavailable AICHHOLZ, TONYA J Primary Care Unavailable [facility] MANAG[facility], [facility] Referr ing Unavailable AICHHOLZ, TONYA J Primary Care Unavailable KAMRAN REBOLLEDO Attending Unavailable AICHHOLZ, TONYA J Referring Unavailable AICHHOLZ, TONYA J Primary Care Unavailable [facility] MANAGEMENT, [facility] Referr ing Unavailable AICHHOLZ, TONYA J Primary Care Unavailable MEDICATION MANAGEMENT, [facility] Referr ing Unavailable AICHHOLZ, TONYA J Primary Care Unavailable [facility] MANAGEMENT, [facility] Referr ing Unavailable AICHHOLZ, TONYA J Primary Care Unavailable KAMRAN REBOLLEDO Attending Unavailable KAMRAN REBOLLEDO Referring Unavailable AICHHOLZ, TONYA J Primary Care Unavailable SYDNI FOY Referring Unavailab le AICHHOLZ, TONYA J Primary Care Unavailable MED[facility] MANAGEMENT, [facility] Referr ing Unavailable AICHHOLZ, TONYA J Primary Care Unavailable Aichholz INTERFACE DEVELOPER, Tonya Unavailable Mumtaz Jensen MD Primary Care Provider Aichholz INTERFACE DEVELOPER, Tonya Unavailable Allergies Allergy ClassificationReported Allergen(s)Allergy TypeDate of OnsetReaction(s) Facility (20 sources)Ciprofloxacin; Translations: [ciprofloxacin]Drug Rmgukkh97-87-9916 Itching (finding), Unknown, HivesGeneral Surgery [place] (20 sources)liraglutide; Translations: [liraglutide]Drug Uffhsmg31-41-7869 Itching (finding)General Surgery [address] (4 sources)liraglutide; Translations: [Victoza]Drug Ypypnju04-85-5223gxdwIsvhzlL[facility] Rep[facility] (7 sources)Penicillin; Translations: [penicillin]Drug AllergyItching (finding) General Surgery [address] (5 sources)Penicillin VDrug AllergyUnkLandmark Medical Center [facility] Imprints Other (8 sources)PollenPropensity to adverse reactionsEleanor Slater Hospital Molecular Imprints Other (20 sources)Cefaclor; Translations: [cefaclor]Drug Apxywgr59-46-0707Dxcjcqt (finding)General Surgery [place] TrailComment on above:itching, high blood pressure (2 sources)Ciprofloxacin; Translations: [Cipro]Drug Wxjymwx10-41-3795CvxcoaChildren[facility] Rep[facility] (1 source)CefaclorDrug AllergyLakehealth [facility] Repository (1 source)dulaglutideDrug Goqqknm83-48-7064CsbLakehealth Beachwood [facility] Repository (1 source)insulin aspart, humanDrug Pcqohir13-16-0052CclLakehealth [facility]wood [facility] Repository (1 source)PenicillinDrug Lkymyll30-83-5779AkvLakehealth [facility]wood [facility] Repository (20 sources)Penicillins; Translations: [Penicillins]Allergy to substance 58-67-7178YzjjtgcKfopzcudbCleveland Clinic [facility] (20 sources)dulaglutide; Translations: [DULAGLUTIDE]Drug Dwvfoqw15-86-4078 [facility] (20 sources)liraglutideDrug Iiaixyr48-74-2440EcgfgofZDCB Healthcare (20 sources)Penicillin GDrug Kavdzik51-44-1620RpalgkpGFEQ Healthcare (1 source)CefaclorDrug Cnkyqui34-95-1935JoktpcxwrAcmc Healthcare System Repository (1 source)CiprofloxacinDrug Dkmyvca89-20-9577SgxirnipjAcmc Healthcare System Repository (1 source)dulaglutideDrug Hvoullu62-18-1281AadzvwhhpAcmc Healthcare System Repository (1 source)liraglutideDrug Yqqecnz31-16-5920BmydryhyaAcmc Healthcare System Repository (3 sources)PollenDrug allergy (disorder)21-08-8880IhvicqwqrLzmqpqbwfACMC Healthcare System Repository (20 sources)dulaglutideDrug Kahjvly14-57-9287METhree [facility] Medications Current Medications MedicationDrug Class(es)DatesSig (Normalized)Sig (Original)[id number] 200 actuat albuterol 0.09 mg/actuat metered dose inhaler (20 sources)beta2-Adrenergic AgonistStart: 92-87-2929tare 2 puff(s) by inhalation every four hours for wheezingVentolin HFA 108 (90 Base) MCG/ACT inhaler Inhale 2 puffs every 4 (four) hours if needed for wheezing or shortness of breath 03/12/2024 Activeamiodarone hydrochloride 200 mg oral tablet (19 sources)AntiarrhythmicStart: 20-31-7188Iudlkoooas 200 mg tablet Active 100 MG PO Daily August 13, 2025 2:19pm Complies with drug therapyStart: 06-27-2025 End: 99-50-5273ebmh 1 tablet by mouth once dailyAmiodarone 200 mg tablet Discontinued 200 MG PO Daily June 27, 2025 12:00am August 13, 2025 2:22pmStart: 06-17-2025 End: 84-75-4121ltrp 2 tablets by mouth twice daily, then take 1 tablet by mouth once dailyamiodarone (PACERONE) 200 mg tablet Take 2 tablets (400 mg total) by mouth 2 (two) times a day for 4 days, THEN 1 tablet (200 mg total) daily for 30 days. 46 tablet 06/17/2025 07/21/2025 Activeatorvastatin 40 mg oral tablet (20 sources)HMG-CoA Reductase InhibitorStart: 06-17-2025 End: 33-30-5642fdna 1 tablet by mouth once dailyatorvastatin (LIPITOR) 40 mg tablet Take 1 tablet (40 mg total) by mouth nightly for 360 days. 90 tablet 3 07/15/2025 07/10/2026 Activecilostazol 100 mg oral tablet (9 sources)Phosphodiesterase 3 InhibitorStart: 88-14-2375scmr 1 tablet by mouth twice dailycilostazol 100 mg Tab 100 mg = 1 tab(s), Oral, BID, Refills(s) 0 Start Date: 08/24/22 Status: OrderedclonazePAM 0.5 mg oral tablet (3 sources)BenzodiazepineStart: 30-05-9340xyxw 1 tablet by mouth twice daily as needed for anxietyKlonopin 0.5 mg Tab 0.5 mg = 1 tab(s), Oral, BID, PRN Anxiety, Refills(s) 0 Start Date: 08/24/22 Status: Orderedclopidogrel 75 mg oral tablet (20 sources)P2Y12 Platelet InhibitorStart: 03-09-2021 End: 43-76-8226jatw 1 tablet by mouth in the morningclopidogreL (PLAVIX) 75 mg tablet Take 1 tablet (75 mg total) by mouth in the morning. 90 tablet 3 0 07/15/2025 Activedapagliflozin 10 mg oral tablet (20 sources)Sodium-Glucose Cotransporter 2 InhibitorStart: 12-19-2022 End: 92-34-6475BZZXVGK 10 mg tablet 1 mg in the morning. 12/19/2022 ActiveStart: 75-57-4552ighw 1 tablet by mouth once dailyFarxiga 5 mg oral tablet 5 mg = 1 tab(s), Oral, Daily, Refills(s) 0 Start Date: 08/24/22 Status: Ordereddocusate sodium 50 mg / sennosides, longterm 8.6 mg oral tablet (6 sources)Start: 06-17-2025 End: 15-50-2948aljl 2 tablets by mouth once dailysennosides-docusate sodium (SENOKOT-S) 8.6-50 mg Take 2 tablets by mouth nightly for 14 days. 28 tablet 06/17/2025 07/01/2025 Activedoxycycline hyclate 100 mg oral tablet (2 sources)Tetracycline-class DrugStart: 01-29-2025 End: 55-29-8505rgip 1 tablet by mouth in the morningdoxycycline (Vibra-Tabs) 100 MG tablet Indications: Acute non-recurrent sinusitis of other sinus Take 1 tablet (100 mg) by mouth in the morning and 1 tablet (100 mg) before bedtime. Do all this for 7days. Take with a full glass of water and do not lie down for at least 30 minutes after. 14 tablet 01/29/2025 02/05/2025 Activeferrous sulfate 325 mg oral tablet (20 sources)Start: 67-66-4137szqy 1 tablet by mouth once dailyFerrous Sulfate 325 mg (65 mg iron) tablet Active 325 MG PO Daily August 06, 2025 12:00am Complies with drug therapyStart: 80-21-9518uina 1 tablet by mouth twice daily ferrous sulfate 325 mg oral enteric coated tablet 325 mg = 1 tab(s), Oral, BID, Refills(s) 0 Start Date: 08/24/22 Status: OrderedFlonase 0.05 mg/inh nasal spray (1 source)Start: 18-78-1719Xpbikcy 0.05 mg/inh nasal spray 2 spray(s), Nasal, Daily, Refill(s) 0 Start Date: 08/24/22 Status: Orderedfluticasone propionate 0.05 mg/actuat metered dose nasal spray (20 sources)CorticosteroidStart: 44-07-8081buxz 1 spray(s) nasal route once dailyFluticasone Propionate 50 mcg/actuation spray,suspension Active 2 SPRAY INTRANASAL Daily June 27, 2025 12:00am administer into each nostril Complies with drug therapyStart: 11-20-2024 End: 47-50-1137kdet 2 spray(s) nasal route once dailyfluticasone (Flonase) 50 MCG/ACT nasal spray Indications: Allergic rhinitis, unspecified seasonality, unspecified trigger Administer 2 sprays into each nostril Daily Shake gently. Before first use, prime pump. After use, clean tip and replace cap. 48 g 2 03/03/2025 06/01/2025 ActiveStart: 05-12-2023 End: 78-82-0472sxwfntzgmuj (Flonase) 50 MCG/ACT nasal spray 05/12/2023 11/20/2024 Discontinued (Reorder)Start: 38-52-0596Olmswfv 0.05 mg/inh nasal spray 2 spray(s), Nasal, Daily, Refill(s) 0 Start Date: 08/24/22 Status: Ordered Start: 44-81-2904nucs 1 spray(s) nasal route once daily as neededFlonase 50 MCG/ACT 1 spray in each nostril Nasally Once a day for 10 day(s) PRN Jun, Not-Taking/PRNStart: 42-65-8136otly 1 spray(s) nasal route once daily as neededFlonase 50 MCG/ACT 1 spray in each nostril Nasally Once a day for 10 day(s) PRN Jun, Not-TakingStart: 50-62-9162npqc 2 spray(s) nasal route once dailyfluticasone (FLONASE) 50 mcg/actuation nasal spray Indications: Obstruction of paranasal sinus Administer 2 sprays into each nostril daily. 16 g 11 11/07/2017 Activegabapentin 600 mg oral tablet (20 sources)Anti-epileptic AgentStart: 11-87-7511zdhj 2 tablets by mouth at bedtimeGabapentin 600 mg tablet Active 600 MG PO .COMPLEX June 27, 2025 12:00am 600 mg orally 1 am,1 in afternoon, and 2 at bedtime; Complies with drug therapyStart: 01-16-2024 End: 03-70-5932jssjwldnty (Neurontin) 600 MG tablet Indications: Diabetic polyneuropathy associated with type 2 diabetes mellitus (HCC) 1 am , 1 in the afternoon, and 2 at bedtime 360 tablet 1 03/03/2025 ActiveStart: 12-20-2023 End: 06-20-8085zeiz 1 capsule by mouth three times dailyGabapentin 400 mg capsule Discontinued 400 MG PO Three times daily December 20, 2023 1:00am 2024 5:19pmStart: 53-99-8855ccenvhnebj (Neurontin) 400 MG capsule as directed, Refills(s) 0 0 08/24/2022 ActiveStart: 03-09-2021 End: 97-80-9713vgqj 1 capsule by mouth four times dailyGabapentin 300 mg capsule Discontinued 300 MG PO Four times daily March 09, 2021 12:00am December 10:42amgabapentin (NEURONTIN) 300 mg capsule Take 2 capsules (600 mg total) by mouth in the morning and 2 capsules (600 mg total) at noon and 2 capsules (600 mg total) in the evening and 2 capsules (600 mg total) before bedtime. Active gabapentin (NEURONTIN) 300 mg capsule Take 400 mg by mouth in the morning and 400 mg at noon and 400 mg in the evening and 400 mg before bedtime. Activetake 1 capsule by mouth every eight hoursGabapentin 300 MG 1 capsule Orally three times a day for 90 days ActiveglipiZIDE 10 mg oral tablet (20 sources)SulfonylureaStart: 98-53-2187tyzv 1 tablet by mouth twice daily Glipizide 10 mg tablet Active 10 MG PO Twice daily March 09, 2021 12:00am Complies with drug therapyStart: 03-09-2021 End: 90-61-9673eijc 1 tablet by mouth in the morningglipiZIDE (Glucotrol) 10 MG tablet Indications: Uncontrolled type 2 diabetes mellitus with hyperglycemia (HCC) Take 1 tablet (10 mg) by mouth in the morning and 1 tablet (10 mg) in the evening. Take before meals. 180 tablet 1 03/03/2025 06/01/2025 ActivehydrOXYzine pamoate 25 mg oral capsule (1 source)AntihistamineStart: 19-35-3194qscd 1 capsule by mouth twice daily as needed for anxietyHydroxyzine Pamoate 25 mg capsule Active 25 MG PO Twice daily as needed for anxiety 60 0 August 04, 2025 12:00am Generalized anxiety disorder with panic attacks Generalized anxiety disorder Panic disorder [episodic paroxysmal anxiety] Complies with drug therapymetFORMIN hydrochloride 1000 mg oral tablet (20 sources)BiguanideStart: 08-31-2017 End: 71-42-9514dccBGGIKP (GLUCOPHAGE) 1000 mg tablet 1 tablet (1,000 mg total) in the morning and 1 tablet (1,000 mg total) in the evening. Take with meals. 08/31/2017 Activemetoprolol tartrate 100 mg oral tablet (20 sources)beta-Adrenergic BlockerStart: 06-17-2025 End: 71-13-0226kviz 1 tablet by mouth in the morning, then take 1 tablet by mouth at bedtimemetoprolol tartrate (LOPRESSOR) 100 mg tablet Take 1 tablet (100 mg total) by mouth in the morning and 1 tablet (100 mg total) before bedtime. Do all this for 360 days. 180 tablet 3 07/15/2025 07/10/2026 ActiveStart: 08-29-2017 End: 86-72-4670uxht 1 tablet by mouth twice dailyMetoprolol Tartrate 50 mg tablet Discontinued 50 MG PO Twice daily March 09, 2021 12:00am 2024 5:24pmStart: 08-29-2017 End: 42-29-5520zkzn 1 tablet by mouth in the morning, then take 1 tablet by mouth at bedtimemetoprolol tartrate (LOPRESSOR) 50 mg tablet Take 1 tablet (50 mg total) by mouth in the morning and 1 tablet (50 mg total) before bedtime. 08/29/2017 06/17/2025 Discontinued (Stop Taking at Discharge)Start: 08-29-2017 take 50 mg by mouth once dailyMetoprolol Tartrate Active 50 MG PO Daily March 08, 2021 11:00pmMetoprolol Succinate ER 100 mg TAKE 1 TABLET DAILY Active metroNIDAZOLE 500 mg oral tablet (3 sources)Nitroimidazole AntimicrobialStart: 04-08-2025 End: 75-83-5506fotf 1 tablet by mouth every eight hoursmetroNIDAZOLE (Flagyl) 500 MG tablet Indications: Diverticulitis Take 1 tablet (500 mg) by mouth every 8 (eight) hours for 7 days No alcohol use while taking this medication 21 tablet 04/08/2025 04/15/2025 ActiveoxyCODONE hydrochloride 5 mg oral tablet (6 sources)Opioid AgonistStart: 23-65-9225Oeuaxagys 5 mg tablet Active 5 MG PO .COMPLEX 0 June 27, 2025 12:00am 5 mg orally as directed; Complies with drug therapyStart: 06-17-2025 End: 08-14-1577vjvp 1 tablet by mouth every six hours as needed for pain oxyCODONE (ROXICODONE) 5 mg immediate release tablet Indications: S/P AVR (aortic valve replacement) , S/P CABG (coronary artery bypass graft) Take 1 tablet (5 mg total) by mouth every 6 (six) hours as needed for pain for up to 7 days. Max Daily Amount: 20 mg 28 tablet 06/17/2025 06/24/2025 Activepantoprazole 40 mg delayed release oral tablet (20 sources)Proton Pump InhibitorStart: 58-18-1747lxyb 1 tablet by mouth once dailyPantoprazole 40 mg tablet,delayed release (DR/EC) Active 40 MG PO Daily June 27, 2025 12:00am Complies with drug therapyStart: 07-04-2024 End: 87-14-0115mkeg 1 tablet by mouth before mealtimepantoprazole (ProtoNix) 40 MG EC tablet Indications: Acute gastritis without hemorrhage, unspecified gastritis type Take 1 tablet (40 mg) by mouth in the morning. Take before meals. 90 tablet 1 03/03/2025 06/01/2025 Activepioglitazone 30 mg oral tablet (20 sources)Peroxisome Proliferator Receptor alpha Agonist, Peroxisome Proliferator Receptor gamma Agonist, ThiazolidinedioneStart: 12-20-2023 End: 95-52-3583vfai 1 tablet by mouth once dailyPioglitazone 45 mg tablet Discontinued 45 MG PO every day at noon December 20, 2023 1:00am June 27, 2025 5:24pmStart: 08-31-2017 End: 43-47-5336tjfh 1 tablet by mouth in the morningpioglitazone (ACTOS) 30 mg tablet Take 1 tablet (30 mg total) by mouth in the morning. 08/31/2017 Active Actos Not-Taking/PRNActos Not-Takingsertraline 25 mg oral tablet (10 sources)Serotonin Reuptake InhibitorStart: 89-15-1956jcuy 1 tablet by mouth once dailySertraline 25 mg tablet Active 25 MG PO Daily 30 August 04, 2025 12:00am Generalized anxiety disorder with panic attacks Generalized anxiety disorder Panic disorder [episodic paroxysmal anxiety]Complies with drug therapy Start: 24-11-0371oann 1 tablet by mouth once dailyZoloft 50 mg Tab 50 mg = 1 tab(s), Oral, Daily, Refills(s) 0 Start Date: 08/24/22 Status: Ordered sulfamethoxazole 800 mg / trimethoprim 160 mg oral tablet (3 sources)Dihydrofolate Reductase Inhibitor Antibacterial, Sulfonamide AntimicrobialStart: 04-08-2025 End: 21-32-4413hvkt 1 tablet by mouth oncesulfamethoxazole-trimethoprim (Bactrim DS) 800-160 MG per tablet Indications: Diverticulitis Take 1tablet by mouth every 12 (twelve) hours for 7 days 14 tablet 04/08/2025 04/15/2025 Active tamsulosin hydrochloride 0.4 mg oral capsule (20 sources)alpha-Adrenergic BlockerStart: 04-26-2024 End: 13-72-0280wzai 1 capsule by mouth every twenty-four hours at bedtime tamsulosin (Flomax) 0.4 MG 24 hr capsule Take 0.8 mg by mouth at bedtime 10/07/2024 ActiveStart: 24-68-0295gnzt 1 capsule by mouth every twenty-four hourstamsulosin (Flomax) 0.4 MG 24 hr capsule Take 0.4 mg by mouth. 0 08/24/2022 ActiveStart: 27-95-3565vjzf 1 capsule by mouth once dailytamsulosin (FLOMAX) 0.4 mg capsule,extended release 24hr Take 1 capsule (0.4 mg total) by mouth nightly. 08/31/2017 ActivetraZODone hydrochloride 50 mg oral tablet (19 sources)Serotonin Reuptake InhibitorStart: 06-27-2025 End: 65-97-3902fczk 1 tablet by mouth once daily at bedtimeTrazodone 50 mg tablet Active 50 MG PO Daily at bedtime 30 1 July 29, 2025 4:55pm Primary insomnia Primary insomnia Complies with drug therapyStart: 03-27-2025 End: 15-21-5613ghqf 1 tablet by mouth once dailytraZODone (DESYREL) 50 mg tablet Take 1 tablet (50 mg total) by mouth nightly. TAKE 1 TABLET (50 MG) BY MOUTH AT BEDTIME 03/27/2025 04/26/2025 Activetriamcinolone acetonide 1 mg/ml topical cream (17 sources)CorticosteroidStart: 06-04-2024 End: 56-30-3512wwetcmzyrauhl (Kenalog) 0.1 % cream Indications: Psoriasis Apply 1 application topically in the morning and 1 application before bedtime. Do all this for 21 days. 60 g 1 06/04/2024 06/25/2024 ActiveStart: 08-09-4458Udrolsw - 40 mg Jul, 40 mgStart: 40-61-1378Xitiznpanmffy Acetonide 0.1 % 1 application to affected area (10 cm area on both arms) Externally Twice a day for 10 day(s) PRN Jun, Not-Taking/PRNStart: 59-41-1845Ytjkdswwlbove Acetonide 0.1 % 1 application to affected area (10 cm area on both arms) Externally Twice a day for 10 day(s) PRN Jun, Not-Takingtriamcinolone (Kenalog) 0.1 % cream every 12 (twelve) hours. 0 Activevitamin b12 1 mg oral capsule (20 sources)Vitamin J73Nszay: 49-92-8637fquj 1 capsule by mouth once daily Cyanocobalamin (Vitamin B-12) 1,000 mcg capsule Active 1000 MCG PO Daily August 06, 2025 12:00amComplies with drug therapytake 1 tablet by mouth in the morningcyanocobalamin 1000 MCG tablet Take 1 tablet (1,000 mcg total) by mouth in the morning. ActiveVitamin B12 1000 mcg Tab (3 sources)Start: 92-79-5617panf 1 tablet by mouth once dailyVitamin B12 1000 mcg Tab 1,000 mcg = 1 tab(s), Oral, Daily, Refills(s) 0 Start Date: 08/24/22 Status: Orderedwarfarin sodium 2 mg oral tablet (20 sources)Vitamin K AntagonistStart: 06-18-2025 End: 60-24-2705jqug 1-1.5 tablets by mouth in the eveningwarfarin (COUMADIN) 2 mg tablet Indications: S/P CABG (coronary artery bypass graft) , S/P AVR (aortic valve replacement) Take 1-1.5 tablets (2-3 mg total) by mouth in the evening. as directed by [facility] Medication Management (PPM). 135 tablet 1 08/15/2025 Active Completed/Discontinued Medications MedicationDrug Class(es)DatesSig (Normalized)Sig (Original)acetaminophen 325 mg / HYDROcodone bitartrate 5 mg oral tablet (11 sources)Opioid AgonistStart: 12-27-2023 End: 33-38-8306kund 1 tablet by mouth every six hours as needed for pain Hydrocodone-Acetaminophen 5-325 mg tablet Discontinued 1 TAB PO Q6H as needed for pain 20 7 0 2023June 27, 2025 5:24pm Sebaceous cyst Sebaceous cystStart: 03-14-2021 End: 56-65-0343ioyg 1 tablet by mouth every six hours as needed for pain Hydrocodone-Acetaminophen 5-325 mg tablet Discontinued 1 TAB PO Q6H as needed for pain 10 2 0 March 14, 2021 December 20, 2023 10:42am Pain of lower extremity Pain in leg, unspecifiedamLODIPine 5 mg oral tablet (20 sources)Dihydropyridine Calcium Channel BlockerStart: 09-25-2019 End: 72-52-8741aduq 1 tablet by mouth once daily in the eveningAmlodipine 5 mg tablet Discontinued 5 MG PO Every evening March 09, 2021 12:00am August 0656:13amaspirin 81 mg delayed release oral tablet (20 sources)Platelet Aggregation Inhibitor, Nonsteroidal Anti-inflammatory Drug Start: 06-18-2025 End: 92-65-8616jfvb 1 tablet by mouth in the morningaspirin 81 mg Take 1 tablet (81 mg total) by mouth in the morning for 30 days. 30 tablet 06/18/2025 07/15/2025 DiscontinuedStart: 03-09-2021 End: 36-00-2339kmut 1 tablet by mouth once dailyAspirin (Aspir-Low) 81 mg Tablet,Delayed Release (Dr/Ec) Discontinued 81 MG PO Daily March 09921534:00am December 20, 2023 10:41amAspirin Adult Low Dose 81 MG as directed Orally Active busPIRone hydrochloride 5 mg oral tablet (2 sources)Start: 07-14-2025 End: 41-78-0838jofz 1 tablet by mouth twice daily as needed for anxietyBuspirone 5 mg tablet Discontinued 5 MG PO Twice daily as needed for anxiety 30 15 0 July 14, 2025 12:00am August 04, 2025 8:51am Generalized anxiety disorder with panic attacks Generalizedanxiety disorder Panic disorder [episodic paroxysmal anxiety]cyclobenzaprine hydrochloride 5 mg oral tablet (6 sources)Muscle RelaxantStart: 95-51-2403apxn 1 tablet by mouth every twenty- four hoursCyclobenzaprine HCl 5 MG 1 tablet at bedtime as needed Orally Once a day for 20 day(s) Dec,Not-Taking/PRNdicyclomine hydrochloride 20 mg oral tablet (9 sources)AnticholinergicStart: 07-04-2024 End: 39-69-1411yods 1 tablet by mouth four times daily as needed for pain dicyclomine (Bentyl) 20 MG tablet Take 20 mg by mouth 4 (four) times a day as needed (abd pain and cramping) 07/04/2024 11/20/2024 Discontinued (Therapy completed)esomeprazole 40 mg delayed release oral capsule (11 sources)Proton Pump InhibitorStart: 04-12-2025 End: 16-53-4769tcuyoqynyayk (NexIUM) 40 mg capsule Take 1 capsule (40 mg total) by mouth. 04/12/2025 06/03/2025 Discontinuedfamotidine 20 mg oral tablet (17 sources)Histamine-2 Receptor AntagonistStart: 06-18-2025 End: 54-81-9369tzvt 1 tablet by mouth once dailyFamotidine 20 mg tablet Discontinued 20 MG PO Daily June 27, 2025 12:00am July 15, 2025 4:15pmfurosemide 40 mg oral tablet (17 sources)Loop DiureticStart: 06-27-2025 End: 18-36-8410vygu 1 tablet by mouth once dailyFurosemide 40 mg tablet Discontinued 40 MG PO Daily June 27, 2025 12:00am July 15, 2025 4:15pmStart: 06-17-2025 End: 77-62-5069nfyd 1 tablet by mouth twice daily, then take 1 tablet by mouth once dailyfurosemide (LASIX) 40 mg tablet 40 milligrams p.o. b.i.d. times 7 days then decrease dosing to 40 milligrams p.o. daily x7 days 21 tablet 06/17/2025 07/15/2025 Discontinuedmupirocin 0.02 mg/mg topical ointment (1 source)RNA Synthetase Inhibitor AntibacterialStart: 06-03-2025 End: 61-20-5701mwbws 15 g nasal route twice dailymupirocin (BACTROBAN) 2 % ointment Indications: Nonrheumatic aortic (valve) stenosis , Severe aortic valve stenosis , Coronary artery disease involving [place] coronary artery of [place] heart, unspecified whether angina present Using qtip, swab a small amount inside each nostril twice a day 15 g 06/03/2025 06/17/2025 Discontinued (Stop Taking at Discharge)ondansetron 4 mg disintegrating oral tablet (9 sources)Serotonin-3 Receptor AntagonistStart: 07-04-2024 End: 76-77-0422qrgj 1 tablet by mouth every six hours as needed for nausea and vomitingondansetron ODT (Zofran-ODT) 4 MG disintegrating tablet Take 4 mg by mouth every 6 (six) hours if needed for nausea or vomiting 07/04/2024 11/20/2024 Discontinued (Therapy completed)potassium chloride 10 meq extended release oral tablet (17 sources)Start: 06-27-2025 End: 39-14-9033Qqmmyljuq Chloride 10 mEq tablet extended release Discontinued MEQ PO June 27, 2025 12:00am July 15, 2025 4:15pmStart: 06-17-2025 End: 48-31-3549gtwqwkimo chloride (K-TAB,KLOR-CON) 10 MEQ CR tablet 10 milliequivalents 2 times daily x7 days thendecrease dosing to 10 milliequivalents daily x7 days 21 tablet 06/17/2025 07/15/2025 Discontinued simvastatin 20 mg oral tablet (20 sources)HMG-CoA Reductase InhibitorStart: 03-09-2021 End: 21-40-7404juvg 1 tablet by mouth once daily in the morningSimvastatin 20 mg tablet Discontinued 20 MG PO Every morning March 09, 2021 12:00am June 5:24pmsucralfate 1000 mg oral tablet (14 sources)Aluminum ComplexStart: 04-12-2025 End: 95-39-7467focc 1 tablet by mouth once dailysucralfate (CARAFATE) 1 gram tablet Take 1 tablet (1 g total) by mouth Daily at 0630. 04/12/2025 06/03/2025 Discontinued (Therapy completed)Start: 07-04-2024 End: 13-22-3520acgw 1 tablet by mouth every six hours as neededsucralfate (Carafate) 1 g tablet Take 1 g by mouth every 6 (six) hours if needed (abd pain) 07/04/2024 07/22/2024 Discontinued (Therapy completed) Problems Active Problems Problem ClassificationProblemDateDocumented DateEpisodic/ChronicAnxiety disorders (20 sources)Panic disorder; Translations: [Panic disorder [episodic paroxysmal anxiety]]Onset: 116370-66-3066WkpcgrsGfoxxdm dysrhythmias (20 sources)Multiple premature ventricular complexes; Translations: [Ventricular premature depolarization]Onset: 371499-11-0016OdradusDgnebvt obstructive pulmonary disease and bronchiectasis (1 source)Chronic obstructive pulmonary disease, unspecified; Translations: [COPD UNSPECIFIED]Onset: 49-12-4423ZaaujfrZekqysofadsah of surgical procedures or medical care (20 sources)Wound discharge; Translations: [Other complications of procedures, not elsewhere classified, initial encounter]Onset: 12-03-2021 Resolved: 586572-02-3442BdwvhgntSglhnibfcb heart failure; nonhypertensive (20 sources)Diastolic dysfunction; Translations: [Other ill-defined heart diseases]Onset: 10-31-2023 Resolved: 710983-53-8892FbjwptfArvaptim atherosclerosis and other heart disease (20 sources)Coronary arteriosclerosis; Translations: [Atherosclerotic heart disease of [place] coronary artery without angina pectoris]Onset: 03-29-2024 Resolved: 997529-98-7958LwagtbwUphxpfzt atherosclerosis and other heart disease (2 sources)Presence of aortocoronary bypass graft; Translations: [Presence of aortocoronary bypass graft]Onset: 17-59-3212PpqqsecjUcunuzdiiz and other anemia (5 sources)Iron deficiency anemia, unspecified; Translations: [IRON DEFICIENCY ANEMIA UNSPECIFIED]Onset: 63-48-7453TjdisyzpBpxhaycr mellitus with complications (20 sources)Type 2 diabetes mellitus in obese; Translations: [Type 2 diabetes mellitus with other specified complication]Onset: 04-04-2022 Resolved: 724792-16-7932GirkcoxSfnqawya mellitus without complication (20 sources)Diabetes mellitus; Translations: [Type 2 diabetes mellitus without complications]Onset: 03-29-2022 Resolved: 562618-76-7208OfcgzfzSaaxmbxh of white blood cells (1 source)Elevated white blood cell count, unspecified; Translations: [ELEVATED WHITE BLOOD CELL COUNT UNS]Onset: 64-09-6099OuntgvsKdqvivjyp of lipid metabolism (20 sources)Mixed hyperlipidemia; Translations: [Mixed hyperlipidemia]Onset: 956923-02-8584LrgfghsIwmcoedkpnbhvq and diverticulitis (20 sources)Diverticulosis of large intestine without perforation or abscess with bleeding; Translations: [Diverticulitis]Onset: 568067-78-8594Rmblfdx Essential hypertension (20 sources)Essential hypertension; Translations: [Essential (primary) hypertension]Onset: 732692-34-0406EztkvqjPwnrv valve disorders (20 sources)Nonrheumatic aortic (valve) stenosis; Translations: [Aortic valve disorders]Onset: 05-09-2022 Resolved: 139905-14-4948GgqrxojTqyhoxplbup of prostate (20 sources)Benign prostatic hyperplasia; Translations: [Benign prostatic hyperplasia without lower urinary tract symptoms]Onset: ChronicHypertension with complications and secondary hypertension (1 source)Hypertensive heart disease with heart failure; Translations: [HTN HEART DISEASE W/HEART FAIL]Onset: 57-61-7540OublevkWinrxhxmvcyis and screening for infectious disease (2 sources)Encounter for immunization; Translations: [Patient encounter status] Onset: 189053-77-1161WyslxljpMnrtszdyojgmj (2 sources)Disorder of intra-abdominal lymph nodes; Translations: [Localized enlarged lymph nodes]43-66-6847FwbrebrbUmnajuhqszpkr mental health disorders (20 sources)Primary insomnia; Translations: [Primary insomnia]Onset: 03-27-2025 27-08-2061VvqagmzRlekbbrckbnlhm (9 sources)Arthritis of right knee; Translations: [Unilateral primary osteoarthritis, right knee]Onset: 07-29-2021 Resolved: 59-51-5452VqsjngmTzkhq circulatory disease (3 sources)History of arterial bypass of lower limb artery; Translations: [Presence of other vascular implantsand grafts]52-30-1005MtqhirsHtcuy circulatory disease (1 source)Presence of other vascular implants and grafts; Translations: [Presence of other vascular implants and grafts]Onset: 33-76-3472BggvszyQbbyz circulatory disease (2 sources)Other specified symptoms and signs involving the circulatory and respiratory systems; Translations:[OTH SPEC SX SIGNS INVLV CIRC RS]Onset: 44-38-5421BvnsrxduXaitp connective tissue disease (1 source)Olecranon bursitis, left elbowEpisodicOther connective tissue disease (1 source)Olecranon bursitis, right elbowEpisodicOther connective tissue disease (3 sources)Pain in lower limb; Translations: [Pain in leg, unspecified] 38-97-7904JoblzixdUbpceqv on above:Problem List clean-up per request of Phys. EHR CmteOther connective tissue disease (2 sources)Bilateral olecranon bursitis; Translations: [Olecranon bursitis, right elbow]33-47-1727TiewhmvlTjngm diseases of bladder and urethra (1 source)Other specified disorders of bladder; Translations: [OTHER SPECIFIED DISORDERS BLADDER]Onset: 53-69-9270FsylqtjFpczc ear and sense organ disorders (20 sources)Hearing loss; Translations: [Unspecified hearing loss, unspecified ear]Onset: 980460-88-6874GnpidvbScwcu ear and sense organ disorders (1 source)Unspecified hearing loss, unspecified ear; Translations: [UNS HEARING LOSS UNSPECIFIED EAR]Onset: 21-71-6218NkgsffrUzqaq endocrine disorders (4 sources)Other specified disorders of adrenal gland; Translations: [OTHER SPEC DISORDERS ADRENAL GLAND]Onset: 84-96-2218YjlbaafAtwlb endocrine disorders (20 sources)Adrenal mass; Translations: [Other specified disorders of adrenal gland]Onset: 394939-14-1961KsnrdwbSlngb gastrointestinal disorders (3 sources)Adrenal hrfh54-47-6844XwnkwmbnHuqja inflammatory condition of skin (20 sources)Psoriasis; Translations: [Psoriasis, unspecified]Onset: 03-09-2023 16-98-1236QscowguKxynq nervous system disorders (1 source)Carpal tunnel syndrome; Translations: [Carpal tunnel syndrome, unspecified upper limb]ChronicOther nervous system disorders (20 sources)Carpal tunnel syndrome of right wrist; Translations: [Carpal tunnel syndrome, right upper limb]Onset: 637724-29-9719CqgmkmoOvwex nervous system disorders (20 sources)Bilateral carpal tunnel syndrome; Translations: [Carpal tunnel syndrome, bilateral upper limbs]Onset: 611544-21-2514DruyohcJwnuf non- traumatic joint disorders (2 sources)Pain in left elbow; Translations: [Pain in left elbow]Onset: 67-83-1670ZbiqjfmxDnazt non-traumatic joint disorders (1 source)Pain in right elbowEpisodicOther nutritional; endocrine; and metabolic disorders (9 sources)Obesity; Translations: [Obesity, unspecified]07-04-4012MpsdewkWlfky nutritional; endocrine; and metabolic disorders (1 source)Obesity, unspecified; Translations: [OBESITY UNSPECIFIED]Onset: 37-49-7101TbdjnvdKpckk nutritional; endocrine; and metabolic disorders (20 sources)Obese class I; Translations: [Obesity, unspecified]Onset: 05-09-2022 Resolved: 069885-06-4514VjrymeeTjcrj skin disorders (2 sources)Epidermal cyst; Translations: [EPIDERMAL CYST]Onset: 10-20-2022 EpisodicOther upper respiratory disease (20 sources)Seasonal allergy; Translations: [Other seasonal allergic rhinitis] Onset: 714417-95-4293RvwvedaMbmob upper respiratory disease (20 sources)Allergic rhinitis; Translations: [Allergic rhinitis, unspecified] Onset: 642315-73-7060GozzeisOjmip upper respiratory disease (2 sources)Allergic disposition; Translations: [Other allergic rhinitis] 97-14-5516YxnmjnqHwjidtzkgt and visceral atherosclerosis (20 sources)Peripheral vascular disease, unspecified; Translations: [Atherosclerosis of [place] arteries of extremities with rest pain, bilateral legs]Onset: 21-77-7219DtzorbgXolmffbuojj; intervertebral disc disorders; other back problems (20 sources)Degeneration of cervical intervertebral disc; Translations: [Other cervical disc degeneration, unspecified cervical region]Onset: 11-29-2023 77-45-1935CdqbrflYmtdfrtfq-related disorders (20 sources)Nicotine dependence, cigarettes, uncomplicated; Translations: [Cigarette smoker ]Onset: 188938-06-5838FaztkciBjodqbtxwuti (7 sources)Peripheral arterial -87-0684Gzhymaklbpao (3 sources)Sebaceous cyst of mnbo99-03-2592Aqlifjskulhq (1 source)CONTACT W/AND (SUSP) EXPOS COVID-19; Translations: [CONTACT W/AND (SUSP) EXPOS COVID-19]Onset: 50-02-5902Cgbjmqazktab (1 source)Encounter for preprocedural laboratory examination; Translations: [Encounter for preprocedural laboratory examination]Onset: 12-20-2023 Unclassified (1 source)Pain in right elbow; Translations: [Pain in right elbow]Onset: 29-74-8876Gobctkzxirmz (1 source)New PatientOnset: 17-07-8147Lkdjnwuwwatl (1 source)Cardiac Valve ProblemOnset: 30-02-9456Ktltzjugbzbq (1 source)Dental InquiryOnset: 04-21-2025 Past or Other Problems Problem ClassificationProblemDateDocumented DateEpisodic/ChronicAbdominal pain (20 sources)Unspecified abdominal pain; Translations: [Generalized abdominal pain]Onset: 62-49-9834WpoebilnCipyu posthemorrhagic anemia (3 sources)Acute posthemorrhagic anemia; Translations: [ACUTE POSTHEMORRHAGIC ANEMIA]Onset: 21-04-2137VvnielueXspzpko dysrhythmias (20 sources)Bradycardia; Translations: [Bradycardia, unspecified]Onset: 486699-40-5504OagktjwoMwuqzgyhdw and other anemia (20 sources)Iron deficiency anemia; Translations: [Iron deficiency anemia, unspecified]Onset: 160406-73-4420VqamljirGvsocktm of mouth; excluding dental (20 sources)Oropharyngeal lesion; Translations: [Other lesions of oral mucosa] Onset: 530712-93-7828PsdwmcdeRtsaohzub and duodenitis (20 sources)Acute gastritis; Translations: [Acute gastritis without bleeding] Onset: 395291-68-1752VpnlplohOynzsblknsxjmj ulcer (except hemorrhage) (9 sources)Acute gastric ulcer without hemorrhage AND without perforation; Translations: [Acute gastric ulcer without hemorrhage or perforation]Onset: 095890-40-7217UvkpajmqEvrktolioiyct symptoms and ill-defined conditions (20 sources)Retention of urine; Translations: [Retention of urine, unspecified] Onset: 282624-92-2962OtsnikwjVrigy valve disorders (20 sources)Heart murmur; Translations: [Cardiac murmur, unspecified]Onset: 425178-12-8638LxitnvmuFaujoocbqrwf; infection of eye (except that caused by tuberculosis or sexually transmitteddisease) (20 sources)Conjunctivitis; Translations: [Unspecified conjunctivitis]Onset: 03-09-2023 Resolved: 186500-36-3400QpboovjpEmza disorders (20 sources)Mood disordersOnset: 02-27-2024 Resolved: Nausea and vomiting (1 source)Nausea with vomiting, unspecified; Translations: [NAUSEA WITH VOMITING UNSPECIFIED]Onset: 23-03-2437SsomngqvHaytbigiwqk chest pain (1 source)Chest pain, unspecified; Translations: [CHEST PAIN UNSPECIFIED]Onset: 04-04-5438AnjxrmkaWyazddjvtpv deficiencies (20 sources)Cobalamin deficiency; Translations: [Deficiency of other specified B group vitamins]Onset: 359856-29-1084RzpecbzuMelor aftercare (1 source)residential (current) use of aspirin; Translations: [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 ASPIRIN]Onset: 45-81-6943QwjerohcCltgw aftercare (1 source)Other ocean transportation intermediary (current) drug therapy; Translations: [OTH HALFWAY CURRENT DRUG THERAPY]Onset: 85-76-7083WxtsqrymTfkts aftercare (1 source)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; Translations: [UTILITY WORKER [place] ANTITHROMBOT/ANTIPLATLETS]Onset: 58-64-9015Xozbyqbi Other aftercare (1 source)residential (current) use of oral hypoglycemic drugs; Translations: [HALFWAY USE ORAL HYPOGLYCEMIC DX]Onset: 36-39-8677MtqmvuyeQeyyo circulatory disease (1 source)Orthostatic hypotension; Translations: [ORTHOSTATIC HYPOTENSION]Onset: 69-36-4572IfqvmbxsLlelt circulatory disease (20 sources)Carotid bruit; Translations: [Other specified symptoms and signs involving the circulatory and respiratory systems]Onset: 948402-99-9882 EpisodicOther circulatory disease (20 sources)Hemorrhage, not elsewhere classified; Translations: [Hemorrhage, unspecified]Onset: 527738-34-2281RggljcnhBynaf connective tissue disease (7 sources)Synovial cyst of right popliteal space; Translations: [Synovial cyst of popliteal space [Jones], right knee]Onset: 098829-37-7592DbxginycXetnl connective tissue disease (20 sources)Bursitis of olecranon of right elbow; Translations: [Olecranon bursitis, right elbow]Onset: 822699-18-9807XmptuwkdPbwkl connective tissue disease (20 sources)Bursitis of olecranon of left elbow; Translations: [Olecranon bursitis, left elbow]Onset: 940539-88-4899AmcvvrllHvxqq connective tissue disease (20 sources)Synovial cyst of popliteal space [Jones], right knee; Translations: [Synovial cyst of popliteal space]Onset: 618874-05-5685XbthsapbIyraj ear and sense organ disorders (20 sources)Tinnitus; Translations: [Tinnitus, unspecified ear]Onset: 06-09-2022 35-42-9502OrbsuptxGeyhg ear and sense organ disorders (20 sources)Tinnitus of right ear; Translations: [Tinnitus, right ear]Onset: 422935-98-2840NjfbgarkYngde gastrointestinal disorders (2 sources)Constipation, unspecified; Translations: [CONSTIPATION UNSPECIFIED] Onset: 50-61-7035VzezgmbvUvevr nervous system disorders (20 sources)Peripheral nerve disease ; Translations: [Polyneuropathy, unspecified]Onset: 11-29-2023 Resolved: 494081-33-6229GjicbtwAaroq nervous system disorders (20 sources)Mucosal anosmia; Translations: [Anosmia]Onset: EpisodicOther nervous system disorders (20 sources)Loss of taste; Translations: [Parageusia]Onset: EpisodicOther nervous system disorders (20 sources)Sense of smell altered; Translations: [Unspecified disturbances of smell and taste]Onset: 200312-84-3788JvwheyqeFjqam non-traumatic joint disorders (1 source)Pain in right knee; Translations: [Acute pain of right knee M25.561] Onset: 07-29-2021 Resolved: 82-55-1414CtcurwayHiuja non-traumatic joint disorders (1 source)Effusion, right knee; Translations: [Swelling of right knee joint M25.461]Onset: 07-29-2021 Resolved: 47-23-7074QpdegcjxKxmfl nutritional; endocrine; and metabolic disorders (20 sources)Overweight in adulthood with body mass index of 25 or more but less than 30; Translations: [Body mass index (BMI) 29.0-29.9, adult]Onset: 10-31-2023 Resolved: 837330-10-7355CafngivdAnjbo nutritional; endocrine; and metabolic disorders (1 source)Body mass index (BMI) 29.0-29.9, adult; Translations: [BODY MASS INDEX BMI 29.0-29.9 ADULT]Onset: 69-97-8440ZuybnkznPvnbz nutritional; endocrine; and metabolic disorders (20 sources)Body mass index 25-29 - overweight; Translations: [Overweight]Onset: 211136-50-3990BxxixmijVeyuo screening for suspected conditions (not mental disorders or infectious disease) (20 sources)Encounter for screening for malignant neoplasm of prostate; Translations: [Abnormal electrocardiogram [ECG] [EKG]]Onset: 04-28-2022 43-95-0368TrboylqxPcazk skin disorders (20 sources)Sebaceous cyst of skin; Translations: [Sebaceous cyst]Onset: 91-23-2854EpppbujcGzyvv skin disorders (3 sources)Sebaceous cyst; Translations: [SEBACEOUS CYST]Onset: 10-12-2022 EpisodicOther upper respiratory infections (20 sources)Acute sinusitis; Translations: [Other acute sinusitis]Onset: 688847-68-9196IlbyvvcbMhxxysywl; thrombophlebitis and thromboembolism (1 source)Acute embolism and thrombosis of other specified deep vein of right lower extremityOnset: 12-14-2021 Resolved: 76-54-3339NvrrjpgoFfzhmlihk (except that caused by tuberculosis or sexually transmitted disease) (20 sources)Pneumonia; Translations: [Pneumonia, unspecified organism]Onset: 03-14-2024 Resolved: 218481-84-4816LnfbxiquSbwnulby codes; unclassified (20 sources)Tobacco user; Translations: [Tobacco use]Onset: EpisodicResidual codes; unclassified (1 source)Other specified postprocedural states; Translations: [OTH SPECIFIED POSTPROCEDURAL STATES]Onset: 42-31-2859PfrhfnirZvye and subcutaneous tissue infections (1 source)Local infection of the skin and subcutaneous tissue, unspecified; Translations: [LOCAL INFECT SKIN SUBQ TISSUE UNS]Onset: 26-11-6635Zfypwewj Spondylosis; intervertebral disc disorders; other back problems (20 sources)Lumbar radiculopathy; Translations: [Cervicalgia]Onset: 09-26-2022 18-10-4474MqcexujcIlpushegsfya (20 sources)Onset: 667533-22-9680Gnnlihdyknac (1 source)Moderate aortic valve nprlmsod69-02-3341 Results Test NameValueInterpretationReference RangeFacilityPOCT Protime / INRon 00-01-6274QRX Coag (PPP) [Relative time]2.1 {INR}Abnormal0.8 - 1.2PMary [facility] SystemInterpretation and review of laboratory resultsAbnormalFroedtert [facility] [place] SystemPOCT Protime / INRon 72-79-8758EJS Coag (PPP) [Relative time]2.6 {INR}Abnormal0.8 - 1.2PMary [facility] System Interpretation and review of laboratory resultsAbnoMayo Clinic Health System– ArcadiaPOCT Protime / INRon 77-28-8923GDR Coag (PPP) [Relative time]1.8 {INR}Abnormal0.8 - 1.2PMary [facility] SystemInterpretation and review of laboratory resultsAbnoAurora [facility] SystemPOCT Protime / INRon 09-21-8974TLN Coag (PPP) [Relative time]1.5 {INR}Abnormal0.8 - 1.2PMary [facility] SystemInterpretation and review of laboratory results AbnormalCoatesville Veterans Affairs Medical CenterHbA1c HPLC (Bld) [Mass fraction]Ordered By: Tonya Dye on 62-62-3467LbK2o (Bld) [Mass fraction]8.2 % [facility] SystemPOCT Protime / INRon 09-62-2430GRJ Coag (PPP) [Relative time]1.3 {INR}Abnormal0.8 - 1.2PMary [facility] SystemInterpretation and review of laboratory resultsAbnoAurora Medical Center in [place] SystemPOCT Protime / INRon 15-54-1329TEZ Coag (PPP) [Relative time]1.1 {INR}0.8 - 1.2PMonroe Clinic Hospital SystemPROTIME AND INRon 06-30-2025 INR1.0Weguem5.9-1.2PZanesville City HospitalComment on above:Performed By: #### PINR #### [facility]AMPUSEDICKAIS[facility] [place] [address] VIRPT Coag (PPP) [Time]11.7 sNormal9.8-13.2PMcKee Medical Center HospitalComment on above:Performed By: #### PINR #### [facility] ([address] [place] [address] VIRPROTIME AND INRon 68-73-3008YRN0.2High0.9-1.2PMcKee Medical Center HospitalComment on above:Performed By: #### PINR #### [facility] ([address] [place] [address] VIRPT Coag (PPP) [Time]36.2 sHigh9.8-13.2PZanesville City HospitalComment on above:Performed By: #### PINR #### [facility] ([address] [place] [address] VIRBASIC METABOLIC PANELon 58-75-0289Nejpc gap [Moles/Vol]7 mmol/LNormal5-15ProMethodist Richardson Medical CenterComment on above:Performed By: #### BMP #### [facility] ([address] [place] [address] VIRCalcium [Mass/Vol]9.2 mg/dLNormal8.5-10.5PZanesville City HospitalComment on above:Performed By: #### BMP #### [facility] ([address] [place] [address] VIRChloride [Moles/Vol]100 mmol/RVoiokd96-780OvkHwxzopMethodist Richardson Medical CenterComment on above:Performed By: #### BMP #### [facility] ([address] [place] [address] VIRCO2 [Moles/Vol]28 mmol/WQxpwgi85-54CofFurcxxZanesville City HospitalComment on above:Performed By: #### BMP #### [facility]) [address] [place] [address] VIRCreatinine [Mass/Vol]0.74 mg/dLNormal0.70-1.20ProMethodist Richardson Medical CenterComment on above:Result Comment: METHOD TRACEABLE TO IDMS STANDARDPerformed By: #### BMP #### [facility] ([address] [place] [address] VIREGFR (CKD-EPI) NON-RACE DEPENDENT>^90Normal>=60ProMethodist Richardson Medical CenterComment on above:Result Comment: eGFR not reported due to non- numeric value for Creatinine. Reported eGFR is based on the CKD-EPI 2020 equation that does not use a race coefficient.Performed By: #### BMP #### [facility] ([address] [place] [address] VIRGlucose [Mass/Vol]160 mg/wZElbw00-51NzaBirpytMethodist Richardson Medical CenterComment on above:Performed By: #### BMP #### [facility] ([address] [place] [address] VIRPotassium [Moles/Vol]4.7 mmol/LNormal3.5-5.0ProMethodist Richardson Medical CenterComment on above:Performed By: #### BMP #### [address] [place] [address] VIRSodium [Moles/Vol]135 mmol/YYbrhwc697-245UpzXdrfwe [place] HospitalComment on above:Performed By: #### BMP #### [address] [place] [address] VIRUrea nitrogen [Mass/Vol]19 mg/dLNormal5-27ProMethodist Richardson Medical CenterComment on above:Performed By: #### BMP #### [address] [place] [address] VIRPROTIME AND INRon 38-89-3527BTO7.5High0.9-1.2PZanesville City HospitalComment on above:Performed By: #### PINR #### [facility] ([facility]) [address] [place] [address]. [place] [address] VIRPT Coag (PPP) [Time]29.0 sHigh9.8-13.2PZanesville City HospitalComment on above:Performed By: #### PINR #### [facility] ([address] [address] VIRBASIC METABOLIC PANELon 34-60-3839Fohde gap [Moles/Vol]5 mmol/LNormal5-15ProMemorial HospitalComment on above:Performed By: #### HA1C #### [facility] ([facility]) [address] [place] [address] VIRCalcium [Mass/Vol]8.4 mg/dLLow8.5-10.5PProtestant Deaconess HospitalComment on above:Performed By: #### HA1C #### [facility] ([facility]) [address] [place] [address] VIRChloride [Moles/Vol]102 mmol/FDdvyec94-144CeeEuviix [place] HospitalComment on above:Performed By: #### HA1C #### [facility] ([facility]) [address] [place] [address] VIRCO2 [Moles/Vol]30 mmol/OBjnumy56-55UksVvwxvcProtestant Deaconess Hospital Comment on above:Performed By: #### HA1C #### [facility] ([facility]) [address] [place] [address] VIRCreatinine [Mass/Vol]0.50 mg/dLLow0.60-1.30ProMemorial HospitalComment on above:Result Comment: METHOD TRACEABLE TO IDMS STANDARD Performed By: #### HA1C #### [facility] ([facility]) [address] [place] [address] VIREGFR (CKD-EPI) NON-RACE DEPENDENT>^90Normal>=60ProSelect Medical [facility], [facility] HospitalComment on above:Result Comment: Reported eGFR is based on the CKD-EPI 2020 equation that does not use a race coefficient.Performed By: #### HA1C #### [facility] ([facility]) [address] [place] [address] VIRGlucose [Mass/Vol]140 mg/uKMzlu69-94YeeTablgk [place] HospitalComment on above:Performed By: #### HA1C #### [facility] ([facility]) [address] [place] [address] VIRPotassium [Moles/Vol]3.8 mmol/LNormal3.5-5.0ProSelect Medical [facility], [facility] HospitalComment on above:Performed By: #### HA1C #### [facility] ([facility]) [address] [place] [address] VIRSodium [Moles/Vol]137 mmol/HJpfyrc599-245CgnMptdpc [place] HospitalComment on above:Performed By: #### HA1C #### [facility] ([facility]) [address] [place] [address] VIRUrea nitrogen [Mass/Vol]24 mg/dLNormal5-27ProSelect [facility], [facility] HospitalComment on above:Performed By: #### HA1C #### [facility] ([facility]) [address] [place] [address] VIRBEDSIDE GLUCOSEon 61-33-5508Gmybeyb [Mass/Vol]148 mg/dLHigh 65-99ProSelect [facility], [facility] HospitalComment on above:Performed By: #### HA1C #### [facility] ([facility]) [address] [place] [address] VIRCBC (NO DIFF)on 75-21-4492Sohcsvukimb distribution width (RBC) [Ratio]14.5 %Adfuwa76.5-15ProSelect [facility], [facility] HospitalComment on above: Performed By: #### HA1C #### [facility] ([facility]) [address] [place] [address] VIRHematocrit (Bld) [Volume fraction]33.4 %Hyp88-01NrcQsfmwx [facility] HospitalComment on above:Performed By: #### HA1C #### [facility] ([facility]) [address] [place] [address] VIRHemoglobin (Bld) [Mass/Vol]11.3 g/nRQbu84-09JlhUzwfkj [facility] HospitalComment on above:Performed By: #### HA1C #### [facility] ([facility]) [address] [place] [address] VIRMCH (RBC) [Entitic mass]31.1 evUftors25-76LenKmdavl [facility] HospitalComment on above:Performed By: #### HA1C #### [facility] ([facility]) [address] [place] [address] VIRMCHC (RBC) [Mass/Vol]33.7 g/pGNlwgsf35-10UocIlyepe [facility] HospitalComment on above:Performed By: #### HA1C #### [facility] ([facility]) [address] [place] [address] VIRMCV (RBC) [Entitic vol]92 mPOvwkbf84-737JfaOmrpvl [facility] HospitalComment on above:Performed By: #### HA1C #### [facility] ([facility]) [address] [place] [address] VIRPlatelet mean volume (Bld) [Entitic vol]8.6 fLNormal7-12 [facility] HospitalComment on above:Performed By: #### HA1C #### [facility] ([facility]) [address] [place] [address] VIRPlatelets (Bld) [#/Vol]107 10*3/dGNqg463-647SytCjnine [facility] HospitalComment on above:Performed By: #### HA1C #### [facility] ([facility]) [address] [place] [address] VIRRBC COUNT3.62 X10E12/LLow4.1-5.7ProKettering Health Miamisburgca [facility] Comment on above:Performed By: #### RADHA #### [facility] ([facility]) [address] [place] [address] VIRWBC (Bld) [#/Vol]6.6 10*3/uLNormal4-11ProSelect [facility], [facility] HospitalComment on above:Performed By: #### ANNEMARIE1C #### [facility] ([facility]) [address] [place] [address] VIRPROTIME AND INRon 12-31-9946FUL1.0High0.9-1.2ProMedMercy Health Allen Hospital HospitalComment on above:Performed By: #### RADHA #### [facility] ([facility]) [address] [place] [address] VIRPT Coag (PPP) [Time]23.3 sHigh9.8-13.2PMercy Health St. [facility] HospitalComment on above:Performed By: #### ANNEMARIE1C #### [facility] ([facility]) [address] [place] [address] VIRBASIC METABOLIC PANELon 49-98-6058Bixuq gap [Moles/Vol]5 mmol/LNormal5-15ProSelect [facility] HospitalComment on above:Performed By: #### PINR #### [facility] ([facility]) [address] [place] [address] VIRCalcium [Mass/Vol]8.5 mg/dLNormal8.5-10.5PMercy Health St. [facility] HospitalComment on above:Performed By: #### PINR #### [facility] ([facility]) [address] [place] [address] VIRChloride [Moles/Vol]104 mmol/LLkysvi34-373TpqFmpomt [place] HospitalComment on above:Performed By: #### PINR #### [facility] ([facility]) [address] [place] [address] VIRCO2 [Moles/Vol]29 mmol/ZTmpdbg59-54MjmKwmwia [facility] Comment on above:Performed By: #### PINR #### [facility] ([facility]) [address] [place] [address] VIRCreatinine [Mass/Vol]0.55 mg/dLLow0.60-1.30ProMemorial HospitalComment on above:Result Comment: METHOD TRACEABLE TO IDMS STANDARD Performed By: #### PINR #### [facility] ([facility]) [address] [place] [address] VIREGFR (CKD-EPI) NON-RACE DEPENDENT>^90Normal>=60ProMemorial HospitalComment on above:Result Comment: Reported eGFR is based on the CKD-EPI 2020 equation that does not use a race coefficient.Performed By: #### PINR #### [facility] ([facility]) [address] [place] [address] VIRGlucose [Mass/Vol]162 mg/jSZguo82-83RhaFkxdxy [place] HospitalComment on above:Performed By: #### PINR #### [facility] ([facility]) [address] [place] [address] VIRPotassium [Moles/Vol]3.7 mmol/LNormal3.5-5.0ProMemorial HospitalComment on above:Performed By: #### PINR #### [facility] ([facility]) [address] [place] [address] VIRSodium [Moles/Vol]138 mmol/LVtdwrw522-524NsaVjsxtf [place] HospitalComment on above:Performed By: #### PINR #### [facility] ([facility]) [address] [place] [address] VIRUrea nitrogen [Mass/Vol]28 mg/dLHigh5-27Pro[facility] HospitalComment on above:Performed By: #### PINR #### [facility] ([facility]) [address] [place] [address] VIRBEDSIDE GLUCOSEon 13-01-0448Aedhxvv [Mass/Vol]188 mg/dLHigh 65-99Pro[facility] HospitalComment on above:Performed By: #### HA1C #### [facility] ([facility]) [address] [place] [address] VIRGlucose [Mass/Vol]237 mg/qIWvmx79-60EuyObhjjw [facility] HospitalComment on above:Performed By: #### HA1C #### [facility] ([facility]) [address] [place] [address] VIRGlucose [Mass/Vol]254 mg/hQSjxd82-59HamCqkdmu [facility] HospitalComment on above:Performed By: #### HA1C #### [facility] ([facility]) [address] [place] [address] VIRGlucose [Mass/Vol]236 mg/lQTeyb38-55OoeBzqtba [facility] HospitalComment on above:Performed By: #### HA1C #### [facility] ([facility]) [address] [place] [address] VIRGlucose [Mass/Vol]168 mg/gOFvbi60-23HqmEsgabb [facility] HospitalComment on above:Performed By: #### PINR #### [facility] ([facility]) [address] [place] [address] VIRCBC (NO DIFF)on 14-12-2790Xgfiajgmkxh distribution width (RBC) [Ratio]14.7 %Vvbbuh40.5-15Pro[facility] HospitalComment on above: Performed By: #### PINR #### [facility] ([facility]) [address] [place] [address] VIRHematocrit (Bld) [Volume fraction]35.1 %Wto92-24TtrPzenvk [facility] HospitalComment on above:Performed By: #### PINR #### [facility] ([facility]) [address] [place] [address] VIRHemoglobin (Bld) [Mass/Vol]11.9 g/lQEua31-06FbdHkpbqc [facility] HospitalComment on above:Performed By: #### PINR #### [facility] ([facility]) [address] [place] [address] VIRMCH (RBC) [Entitic mass]31.3 ljZqsyax76-75YbhTqgwyh [facility] HospitalComment on above:Performed By: #### PINR #### [facility] ([facility]) [address] [place] [address] VIRMCHC (RBC) [Mass/Vol]34.0 g/pIQkepxj18-59TdpIfujkv [facility] HospitalComment on above:Performed By: #### PINR #### [facility] ([facility]) [address] [place] [address] VIRMCV (RBC) [Entitic vol]92 mLIliecm48-948KpfBolezp [facility] HospitalComment on above:Performed By: #### PINR #### [facility] ([facility]) [address] [place] [address] VIRPlatelet mean volume (Bld) [Entitic vol]8.4 fLNormal7-12 [facility] HospitalComment on above:Performed By: #### PINR #### [facility] ([facility]) [address] [place] [address] VIRPlatelets (Bld) [#/Vol]94 10*3/pCOru487-313SnqYniakr [facility] HospitalComment on above:Performed By: #### PINR #### [facility] ([facility]) [address] [place] [address] VIRRBC COUNT3.82 X10E12/LLow4.1-5.7[facility] Comment on above:Performed By: #### PINR #### [facility] ([facility]) [address] [place] [address] VIRWBC (Bld) [#/Vol]9.7 10*3/uLNormal4-11Pro[facility] HospitalComment on above:Performed By: #### PINR #### [facility] ([facility]) [address] [place] [address] VIRMAGNESIUMon 80-72-6492Xrygvendd [Mass/Vol]2.2 mg/dLNormal 1.8-2.6ProSelect [facility], [facility] HospitalComment on above:Performed By: #### PINR #### [facility] ([facility]) [address] [place] [address] VIRPOTASSIUMon 98-73-2483Oukcbwqvo [Moles/Vol]4.1 mmol/LNormal 3.5-5.0ProSelect [facility] HospitalComment on above:Performed By: #### HA1C #### [facility] ([facility]) [address] [place] [address] VIRPROTIME AND INRon 33-42-1536VKZ2.7Uyalnu8.9-1.2PMercy Health St. [facility] HospitalComment on above:Performed By: #### PINR #### [facility] ([facility]) [address] [place] [address] VIRPT Coag (PPP) [Time]12.8 sNormal9.8-13.2PMercy Health St. [facility] HospitalComment on above:Performed By: #### PINR #### [facility] ([facility]) [address] [place] [address] VIRXR CHEST 1 VWon 26-59-2278UF CHEST 1 VWXR CHEST 1 VW XR CHEST 1 VW: 06/16/2025 5:06 AM Clinical: Chest tube removal Upright portable chest is compared with 06/15/2025. Stable right central line. No pneumothorax. IMPRESSION: * Continued mostly linear lower lobe infiltrates with probable right pleural effusion. * No pneumothorax. Finalized by Avery Velez MD on 06/16/2025 8:20 AMNormalSelect Medical Cleveland Clinic Rehabilitation [facility], [facility] BASIC METABOLIC PANELon 87-08-7176Nnrup gap [Moles/Vol]4 mmol/LLow5-15[facility], [facility] ShawComment on above:Performed By: #### TSC #### [facility] ([facility]) [address] [place] [address] VIRCalcium [Mass/Vol]8.5 mg/dLNormal8.5-10.5PProtestant Deaconess HospitalComment on above:Performed By: #### TSC #### [facility] ([facility]) [address] [place] [address] VIRChloride [Moles/Vol]106 mmol/LSemrsg37-961DhfSrlymr [place] HospitalComment on above:Performed By: #### TSC #### [facility] ([facility]) [address] [place] [address] VIRCO2 [Moles/Vol]28 mmol/IXabnjk60-99AjrEcexbhProtestant Deaconess Hospital Comment on above:Performed By: #### TSC #### [facility] ([facility]) [address] [place] [address] VIRCreatinine [Mass/Vol]0.56 mg/dLLow0.60-1.30Select [facility] Hospital, Edwin ShawComment on above:Result Comment: METHOD TRACEABLE TO IDMS STANDARD Performed By: #### TSC #### [facility] ([facility]) [address] [place] [address] VIREGFR (CKD-EPI) NON-RACE DEPENDENT>^90Normal>=60ProMemorial HospitalComment on above:Result Comment: Reported eGFR is based on the CKD-EPI 2020 equation that does not use a race coefficient.Performed By: #### TSC #### [facility] ([facility]) [address] [place] [address] VIRGlucose [Mass/Vol]133 mg/wANtxf03-62JwpWemwaq [facility] HospitalComment on above:Performed By: #### TSC #### [facility] ([facility]) [address] [place] [address] VIRPotassium [Moles/Vol]4.4 mmol/LNormal3.5-5.0Pro[facility] HospitalComment on above:Performed By: #### TSC #### [facility] ([facility]) [address] [place] [address] VIRSodium [Moles/Vol]138 mmol/HOhovjp088-239ZamKnqxub [facility] HospitalComment on above:Performed By: #### TSC #### [facility] ([facility]) [address] [place] [address] VIRUrea nitrogen [Mass/Vol]24 mg/dLNormal5-27[facility] HospitalComment on above:Performed By: #### TSC #### [facility] ([facility]) [address] [place] [address] VIRBEDSIDE GLUCOSEon 12-31-1891Ulnloqy [Mass/Vol]270 mg/dLHigh 65-99[facility] HospitalComment on above:Performed By: #### PINR #### [facility] ([facility]) [address] [place] [address] VIRGlucose [Mass/Vol]199 mg/uYCwqq31-66XqaAmkmat [facility] HospitalComment on above:Performed By: #### PINR #### [facility] ([facility]) [address] [place] [address] VIRGlucose [Mass/Vol]224 mg/mMFsdb41-15LpzAtgqqa [facility] HospitalComment on above:Performed By: #### PINR #### [facility] ([facility]) [address] [place] [address] VIRGlucose [Mass/Vol]151 mg/jTEbcw00-79MwdHnumcs [facility] HospitalComment on above:Performed By: #### PINR #### [facility] ([facility]) [address] [place] [address] VIRCBC (NO DIFF)on 39-73-1494Thtsvgobdgu distribution width (RBC) [Ratio]14.8 %Ycippi27.5-15[facility] HospitalComment on above: Performed By: #### TSC #### [facility] ([facility]) [address] [place] [address] VIRHematocrit (Bld) [Volume fraction]37.1 %Dsm57-45JbwTmfshf [facility] HospitalComment on above:Performed By: #### TSC #### [facility] ([facility]) [address] [place] [address] VIRHemoglobin (Bld) [Mass/Vol]12.6 g/sBWol34-49ZsvXudwgs [facility] HospitalComment on above:Performed By: #### TSC #### [facility] ([facility]) [address] [place] [address] VIRMCH (RBC) [Entitic mass]31.0 phNynhmi40-35WvwIonadz [facility] HospitalComment on above:Performed By: #### TSC #### [facility] ([facility]) [address] [place] [address] VIRMCHC (RBC) [Mass/Vol]33.9 g/uAQwyjnb99-06SjnHqblri [facility] HospitalComment on above:Performed By: #### TSC #### [facility] ([facility]) [address] [place] [address] VIRMCV (RBC) [Entitic vol]92 jTLjbsvz84-760EvwMrbviw [facility] HospitalComment on above:Performed By: #### TSC #### [facility] ([facility]) [address] [place] [address] VIRPlatelet mean volume (Bld) [Entitic vol]8.8 fLNormal7-12 [facility] HospitalComment on above:Performed By: #### TSC #### [facility] ([facility]) [address] [place] [address] VIRPlatelets (Bld) [#/Vol]99 10*3/lLEci113-422BabFaphtfMemorial HospitalComment on above:Performed By: #### TSC #### [facility] ([facility]) [address] [place] [address] VIRRBC COUNT4.05 X10E12/LLow4.1-5.7ProSelect [facility] Comment on above:Performed By: #### TSC #### [facility] ([facility]) [address] [place] [address] VIRWBC (Bld) [#/Vol]12.5 10*3/uLHigh4-11ProMemorial HospitalComment on above:Performed By: #### TSC #### [facility] ([facility]) [address] [place] [address] VIRPROTIME AND INRon 49-74-8220EPJ8.1Ktzqxw8.9-1.2PMercy Health St. [facility] HospitalComment on above:Performed By: #### TSC #### [facility] ([facility]) [address] [place] [address] VIRPT Coag (PPP) [Time]11.8 sNormal9.8-13.2PMercy Health St. [facility] HospitalComment on above:Performed By: #### TSC #### [facility] ([facility]) [address] [place] [address] VIRXR CHEST 1 VWon [id number] CHEST 1 VWXR CHEST 1 VW CHEST 1 VIEW HISTORY: Status post CABG COMPARISON: 06/14/2025 IMPRESSION: * Interval removal of [place]-Jonathan catheter with right IJ vascular sheath. Interval removal of mediastinal drains. Stable left chest tube. * Moderate bibasilar atelectasis (left greater than right), slightly increased. * No pleural effusions or pneumothorax. Finalized by Manuel Carroll MD on 06/15/2025 10:28 AMNormalProMemorial HospitalBASIC METABOLIC PANELon [id number] gap [Moles/Vol]8 mmol/LNormal 5-15[facility], Edwin ShawComment on above:Performed By: #### CMP #### [facility] ([facility]) [address] [place] [address] VIRCalcium [Mass/Vol]8.1 mg/dLLow8.5-10.5PMercy Health St. [facility] HospitalComment on above:Performed By: #### CMP #### [facility] ([facility]) [address] [place] [address] VIRChloride [Moles/Vol]111 mmol/HSler29-278NalCxbakc [place] HospitalComment on above:Performed By: #### CMP #### [facility] ([facility]) [address] [place] [address] VIRCO2 [Moles/Vol]23 mmol/VOfpfgh77-93VdsKccnosProtestant Deaconess Hospital Comment on above:Performed By: #### CMP #### [facility] ([facility]) [address] [place] [address] VIRCreatinine [Mass/Vol]0.46 mg/dLLow0.60-1.30ProMemorial HospitalComment on above:Result Comment: METHOD TRACEABLE TO IDMS STANDARD Performed By: #### CMP #### [facility] ([facility]) [address] [place] [address] VIREGFR (CKD-EPI) NON-RACE DEPENDENT>^90Normal>=60ProSelect Medical [facility], [facility] HospitalComment on above:Result Comment: Reported eGFR is based on the CKD-EPI 2020 equation that does not use a race coefficient.Performed By: #### CMP #### [facility] ([facility]) [address] [place] [address] VIRGlucose [Mass/Vol]130 mg/dQVxbj86-54IawIgissl [place] HospitalComment on above:Performed By: #### CMP #### [facility] ([facility]) [address] [place] [address] VIRPotassium [Moles/Vol]4.0 mmol/LNormal3.5-5.0Pro[facility] Palmer HospitalComment on above:Performed By: #### CMP #### [facility] ([facility]) [address] [place] [address] VIRSodium [Moles/Vol]142 mmol/VKjmdoa901-090JovLyynpk Palmer HospitalComment on above:Performed By: #### CMP #### [facility] ([facility]) [address] [place] [address] VIRUrea nitrogen [Mass/Vol]19 mg/dLNormal5-27ProMedica [facility] HospitalComment on above:Performed By: #### CMP #### [facility] ([facility]) [address] [place] [address] VIRBEDSIDE GLUCOSEon 05-23-9919Fshgbrr [Mass/Vol]213 mg/dLHigh 65-99ProMedica [facility] HospitalComment on above:Performed By: #### TSC #### [facility] ([facility]) [address] [place] [address] VIRGlucose [Mass/Vol]209 mg/jZVyro15-03QfnOkqatn Palmer HospitalComment on above:Performed By: #### TSC #### [facility] ([facility]) [address] [place] [address] VIRGlucose [Mass/Vol]223 mg/eKHxzz26-39SblHaiybv [facility] HospitalComment on above:Performed By: #### TSC #### [facility] ([facility]) [address] [place] [address] VIRGlucose [Mass/Vol]135 mg/kEDbzd96-93VfiTazjzn [facility] HospitalComment on above:Performed By: #### TSC #### [facility] ([facility]) [address] [place] [address] VIRGlucose [Mass/Vol]114 mg/sMEdyz25-79LkzFjvpap [facility] HospitalComment on above:Performed By: #### TSC #### [facility] ([facility]) [address] [place] [address] VIRGlucose [Mass/Vol]116 mg/jRAhdo11-25HhlXttvxw [facility] HospitalComment on above:Performed By: #### CMP #### [facility] ([facility]) [address] [place] [address] VIRGlucose [Mass/Vol]112 mg/fTDapt93-32AusDqvbnj [facility] HospitalComment on above:Performed By: #### CMP #### [facility] ([facility]) [address] [place] [address] VIRGlucose [Mass/Vol]120 mg/eYSrao68-07DgtJbmvtp [facility] HospitalComment on above:Performed By: #### CMP #### [facility] ([facility]) [address] [place] [address] VIRGlucose [Mass/Vol]136 mg/eXCmsy61-12QahPkuqlu [facility] HospitalComment on above:Performed By: #### UA #### [facility] ([facility]) [address] [place] [address] VIRGlucose [Mass/Vol]115 mg/tFKhjm61-78VvwEvfvay [facility] HospitalComment on above:Performed By: #### UA #### [facility] ([facility]) [address] [place] [address] VIRCBC (NO DIFF)on 24-86-3748Itedrcbmcjx distribution width (RBC) [Ratio]14.7 %Nhjtkq02.5-15ProMedica [facility] HospitalComment on above: Performed By: #### CMP #### [facility] ([facility]) [address] [place] [address] VIRHematocrit (Bld) [Volume fraction]42.0 %Ttdqft61-88GsbSenjoj [facility] HospitalComment on above:Performed By: #### CMP #### [facility] ([facility]) [address] [place] [address] VIRHemoglobin (Bld) [Mass/Vol]14.2 g/mKXhvvwa99-70ItsCyokuc [facility] HospitalComment on above:Performed By: #### CMP #### [facility] ([facility]) [address] [place] [address] VIRMCH (RBC) [Entitic mass]31.2 ffMigwbx96-99IvkCibquo [facility] HospitalComment on above:Performed By: #### CMP #### [facility] ([facility]) [address] [place] [address] VIRMCHC (RBC) [Mass/Vol]33.8 g/bPMbsfgd18-03KerVhpmls Palmer HospitalComment on above:Performed By: #### CMP #### [facility] ([facility]) [address] [place] [address] VIRMCV (RBC) [Entitic vol]92 qKUkgfkq45-955XzdEdpayk [facility] HospitalComment on above:Performed By: #### CMP #### [facility] ([facility]) [address] [place] [address] VIRPlatelet mean volume (Bld) [Entitic vol]8.6 fLNormal7-12 [facility]son HospitalComment on above:Performed By: #### CMP #### [facility] ([facility]) [address] [place] [address] VIRPlatelets (Bld) [#/Vol]109 10*3/xPOnh377-126BspJmknlp [facility] HospitalComment on above:Performed By: #### CMP #### [facility] ([facility]) [address] [place] [address] VIRRBC COUNT4.55 X10E12/LNormal4.1-5.7[facility] Comment on above:Performed By: #### CMP #### [facility] ([facility]) [address] [place] [address] VIRWBC (Bld) [#/Vol]10.2 10*3/uLNormal4-11ProMemorial HospitalComment on above:Performed By: #### CMP #### [facility] ([facility]) [address] [place] [address] VIRIONIZED CALCIUMon 66-44-2716KVAEJTA CALCIUM - ICAN4.6 mg/dL Normal4.5-5.3PMercy Health St. [facility] HospitalComment on above:Performed By: #### CMP #### [facility] ([facility]) [address] [place] [address] VIRIONIZED MAGNESIUMon 11-38-2865Rdlwulprl [Moles/Vol]0.66 mmol/LNormal0.45-0.74ProSelect [facility] HospitalComment on above:Performed By: #### CMP #### [facility] ([facility]) [address] [place] [address] VIRPHOSPHORUSon 97-63-8216Ezplkcciu [Mass/Vol]3.2 mg/dLNormal 2.4-4.9ProMemorial HospitalComment on above:Performed By: #### CMP #### [facility] ([facility]) [address] [place] [address] VIRPROTIME AND INRon 15-31-8770LVW4.3Euhhej9.9-1.2PMercy Health St. [facility] HospitalComment on above:Performed By: #### CMP #### [facility] ([facility]) [address] [place] [address] VIRPT Coag (PPP) [Time]11.7 sNormal9.8-13.2PMercy Health St. [facility] HospitalComment on above:Performed By: #### CMP #### [facility] ([facility]) [address] [place] [address] VIRXR CHEST 1 VWon 92-63-9825XZ CHEST 1 VWXR CHEST 1 VW HISTORY: Dyspnea, post open heart COMPARISON: Chest x-ray 06/13/2025 FINDINGS: Portable AP upright view of the chest was performed during expiration. Interval discontinuation of endotracheal tube and enteric tube. Pulmonary artery catheter and large bore chest tubes are in stable position. Cardiac silhouette is unchanged. Postoperative changes compatible with valve repair. Bibasilar atelectasis is stable. No significant pleural effusion or pneumothorax. IMPRESSION: * No significant interval change post extubation. Finalized by Rogelio Chapman MD on 06/14/2025 5:38 AMNormalProParkview Health 55-02-9883nXOC Coag (Bld) [Time]32 oTgodyg60-06GijKemfht [facility] HospitalComment on above:Performed By: #### CBC #### [facility] ([facility]) [address] [place] [address] VIRBEDSIDE GLUCOSEon 81-29-5429Cfpqnbq [Mass/Vol]166 mg/dLHigh 65-99[facility] HospitalComment on above:Performed By: #### UA #### [facility] ([facility]) [address] [place] [address] VIRGlucose [Mass/Vol]175 mg/aCJkrp69-30WgsNlchkj [facility] HospitalComment on above:Performed By: #### UA #### [facility] ([facility]) [address] [place] [address] VIRGlucose [Mass/Vol]198 mg/uOItwz69-68PqsDfhdqv [facility] HospitalComment on above:Performed By: #### CBC #### [facility] ([facility]) [address] [place] [address] VIRGlucose [Mass/Vol]97 mg/hKTagwdt54-85StvKtzfzy [facility] HospitalComment on above:Performed By: #### CBC #### [facility] ([facility]) [address] [place] [address] VIRGlucose [Mass/Vol]109 mg/eGZszu89-74JlxGuypya [facility] HospitalComment on above:Performed By: #### BEDG ####[facility] ([facility])[address] [address] VIRBLOOD GAS, ARTERIALon 06-13-2025 BASE,DEFICIT-1.4 mmol/LLow0.0-2.0Pro[facility]son HospitalComment on above: Performed By: #### ABG ####[facility] ([facility])[address] [place] [address] VIRBody amqmgcjwvgv79.6 [degF]Normal>=37Pro[facility] HospitalComment on above:Performed By: #### ABG ####[facility] ([facility])[address] [place] [address] VIRHCO3 (Bld) [Moles/Vol]25.1 mmol/L Comgbi72.0-26.0ProKettering Health Miamisburgca [facility]son HospitalComment on above:Performed By: #### ABG ####[facility] ([facility])[address] [place] [address] VIRINSP. O2 CONC.100.0 %NormalProKettering Health Miamisburgca [facility]son HospitalComment on above:Performed By: #### ABG ####[facility] ([facility])[address] [place] [address] VIROxygen saturation in Blood99.3 %Normal>90.0[facility]son HospitalComment on above:Performed By: #### ABG ####[facility] ([facility])[address] [place] [address] VIRPCO2 QYHPVPZJ25.9 reOoXcpu76.0-45.0Pro[facility] HospitalComment on above:Performed By: #### ABG ####[facility] ([facility])[address] [place] [address] VIRPH ARTERIAL7.168Zrh0.350-7.450 [facility] HospitalComment on above:Performed By: #### ABG ####[facility] ([facility])[address] [place] [address] VIRPO2 DJKHFCJA884 awDpPicy62-055CrhYtmfjc [facility] HospitalComment on above:Performed By: #### ABG ####[facility] ([facility])[address] [place] [facility] [place] [address] VIRPOC YANI'S TESTNormalProMedica Jacobson HospitalComment on above:Performed By: #### ABG ####[facility] ([facility])[address] [place] [facility] [place] [address] VIR SAMPLE SITEA LINENormalProMedica Jacobson HospitalComment on above:Performed By: #### ABG ####[facility] ([facility])[address] [place] [address] VIRSAMPLE TYPEArterialNormalProMedica Jacobson HospitalComment on above:Performed By: #### ABG ####[facility] ([facility])[address] [place] [address] VIRBUNon 77-11-1063Xwbi nitrogen [Mass/Vol]17 mg/dLNormal5-27ProKettering Health Miamisburgca [facility]son HospitalComment on above:Performed By: #### UA #### [facility] ([facility]) [address] [place] [address] VIRUrea nitrogen [Mass/Vol]13 mg/dLNormal5-27[facility] HospitalComment on above:Performed By: #### CBC #### [facility] ([facility]) [address] [place] [address] VIRCBC (NO DIFF)on 67-17-1181Hfknfxobdyx distribution width (RBC) [Ratio]14.5 %Tixyfb08.5-15[facility] HospitalComment on above: Performed By: #### CBC #### [facility] ([facility]) [address] [place] [address] VIRHematocrit (Bld) [Volume fraction]51.4 %Yxuo55-45RdvJbstii [facility] HospitalComment on above:Performed By: #### CBC #### [facility] ([facility]) [address] [place] [address] VIRHemoglobin (Bld) [Mass/Vol]17.4 g/mLUjie06-24NeyXwnbqr [facility] HospitalComment on above:Performed By: #### CBC #### [facility] ([facility]) [address] [place] [address] VIRMCH (RBC) [Entitic mass]31.4 ciQlwblc21-97UqaCmtuzg [facility] HospitalComment on above:Performed By: #### CBC #### [facility] ([facility]) [address] [place] [address] VIRMCHC (RBC) [Mass/Vol]33.9 g/sVDsavgw53-63QdtZdcudc [facility] HospitalComment on above:Performed By: #### CBC #### [facility] ([facility]) [address] [place] [address] VIRMCV (RBC) [Entitic vol]93 mECnomtb43-109RkeIwccjp [facility] HospitalComment on above:Performed By: #### CBC #### [facility] ([facility]) [address] [place] [address] VIRPlatelet mean volume (Bld) [Entitic vol]8.6 fLNormal7-12 [facility] HospitalComment on above:Performed By: #### CBC #### [facility] ([facility]) [address] [place] [address] VIRPlatelets (Bld) [#/Vol]177 10*3/oUYfranx100-825AtsFbnice [facility] HospitalComment on above:Performed By: #### CBC #### [facility] ([facility]) [address] [place] [address] VIRRBC COUNT5.55 X10E12/LNormal4.1-5.7ProKettering Health [facility]ca [facility] Comment on above:Performed By: #### CBC #### [facility] ([facility]) [address] [place] [address] VIRWBC (Bld) [#/Vol]7.1 10*3/uLNormal4-11[facility] HospitalComment on above:Performed By: #### CBC #### [facility] ([facility]) [address] [place] [address] VIRCOMPREHENSIVE METABOLIC PANELon 40-14-9571Sckxinf [Mass/Vol] 4.2 g/dLNormal3.2-5.3Pro[facility]son HospitalComment on above:Performed By: #### CMP #### [facility] ([facility]) [address] [place] [address] VIRALP [Catalytic activity/Vol]77 U/YHeefsj15-338WvaOblqij [facility] HospitalComment on above:Performed By: #### CMP #### [facility] ([facility]) [address] [place] [address] VIRALT [Catalytic activity/Vol]14 U/LNormal<=40ProKettering Health Miamisburgca [facility] HospitalComment on above:Performed By: #### CMP #### [facility] ([facility]) [address] [place] [address] VIRAnion gap [Moles/Vol]8 mmol/LNormal5-15[facility] HospitalComment on above:Performed By: #### CMP #### [facility] ([facility]) [address] [place] [address] VIRAST [Catalytic activity/Vol]16 U/LNormal<=41[facility] HospitalComment on above:Performed By: #### CMP #### [facility] ([facility]) [address] [place] [address] VIRBilirubin [Mass/Vol]0.5 mg/dLNormal0.3-1.2PMercy Health St. [facility] HospitalComment on above:Performed By: #### CMP #### [facility] ([facility]) [address] [place] [address] VIRCalcium [Mass/Vol]8.9 mg/dLNormal8.5-10.5PMercy Health St. [facility] HospitalComment on above:Performed By: #### CMP #### [facility] ([facility]) [address] [place] [address] VIRChloride [Moles/Vol]102 mmol/RLlvvfz34-678YbaMwunhd [place] HospitalComment on above:Performed By: #### CMP #### [facility] ([facility]) [address] [place] [address] VIRCO2 [Moles/Vol]27 mmol/AZzogwh28-11NypDagltr [facility] [facility] Comment on above:Performed By: #### CMP #### [facility] ([facility]) [address] [place] [address] VIRCreatinine [Mass/Vol]0.65 mg/dLNormal0.60-1.30Pro[facility] HospitalComment on above:Result Comment: METHOD TRACEABLE TO IDMS STANDARDPerformed By: #### CMP #### [facility] ([facility]) [address] [place] [address] VIREGFR (CKD-EPI) NON-RACE DEPENDENT>^90Normal>=60Pro[facility] HospitalComment on above:Result Comment: Reported eGFR is based on the CKD-EPI 2021 equation that does not use a race coefficient.Performed By: #### CMP #### [facility] ([facility]) [address] [place] [address] VIRGlucose [Mass/Vol]169 mg/pYGubp72-86NaaRrxhlk [place] HospitalComment on above:Performed By: #### CMP #### [facility] ([facility]) [address] [place] [address] VIRPotassium [Moles/Vol]4.3 mmol/LNormal3.5-5.0[facility] HospitalComment on above:Performed By: #### CMP #### [facility] ([facility]) [address] [place] [address] VIRProtein [Mass/Vol]7.1 g/dLNormal6.0-8.0ProKettering Health [facility]burgca [facility] HospitalComment on above:Performed By: #### CMP #### [facility] ([facility]) [address] [place] [address] VIRSodium [Moles/Vol]137 mmol/XGubkeh524-790AqoLrkpgy [facility] HospitalComment on above:Performed By: #### CMP #### [facility] ([facility]) [address] [place] [address] VIRUrea nitrogen [Mass/Vol]14 mg/dLNormal5-27Pro[facility] HospitalComment on above:Performed By: #### CMP #### [facility] ([facility]) [address] [place] [address] VIRCREATININE, SERUMon 59-64-0515Cifiumjyse [Mass/Vol]0.47 mg/dLLow0.60-1.30Pro[facility] HospitalComment on above:Result Comment: METHOD TRACEABLE TO IDMS STANDARDPerformed By: #### UA #### [facility] ([facility]) [address] [place] [address] VIREGFR (CKD-EPI) NON-RACE DEPENDENT>^90Normal>=60ProKettering Health [facility]burgca [facility] HospitalComment on above:Result Comment: Reported eGFR is based on the CKD-EPI 2020 equation that does not use a race coefficient.Performed By: #### UA #### [facility] ([facility]) [address] [place] [address] VIRCreatinine [Mass/Vol]0.54 mg/dLLow0.60-1.30ProKettering Health [facility]burgca [facility] HospitalComment on above:Result Comment: METHOD TRACEABLE TO IDMS STANDARD Performed By: #### CBC #### [facility] ([facility]) [address] [place] [address] VIREGFR (CKD-EPI) NON-RACE DEPENDENT>^90Normal>=60ProMemorial HospitalComment on above:Result Comment: Reported eGFR is based on the CKD-EPI 2020 equation that does not use a race coefficient.Performed By: #### CBC #### [facility] ([facility]) [address] [place] [address] VIRHEMOGLOBIN A1Con 95-03-9533Myktyxo [Mass/Vol]189 mg/dLNormal [facility] HospitalComment on above:Performed By: #### HA1C #### [facility] ([facility]) [address] [place] [address] YMOMaT2t (Bld) [Mass fraction]8.2 %High4.4-5.6ProMemorial HospitalComment on above:Result Comment: ADA Guidelines Result HgbA1c Normal : less than 5.7 % Prediabetes : 5.7 % to 6.4 % Diabetes : > 6.4 % Use with caution in patients with abnormal hemoglobin variants as the half-life of red blood cells and in vivo glycation rates are affected.Performed By: #### HA1C #### [facility] ([facility]) [address] [place] [address] VIRHEMOGLOBIN AND HEMATOCRIT, BLOODon 19-94-1182Xuwrzxmwkc (Bld) [Volume fraction]42.6 %Uqkxtd30-53CucCthdajMemorial HospitalComment on above:Performed By: #### UA #### [facility] ([facility]) [address] [place] [address] VIRHemoglobin (Bld) [Mass/Vol]14.3 g/mSCmkxgl42-78MbdNgplfl [place] HospitalComment on above:Performed By: #### UA #### [facility] ([facility]) [address] [place] [address] VIRHematocrit (Bld) [Volume fraction]39.3 %Xgouuv63-28RybEulaus [place] HospitalComment on above:Performed By: #### CBC #### [facility] ([facility]) [address] [place] [address] VIRHemoglobin (Bld) [Mass/Vol]13.4 g/cIXkrwqt38-75HnwFdpwmb [place] HospitalComment on above:Performed By: #### CBC #### [facility] ([facility]) [address] [place] [address] VIRIONIZED CALCIUMon 62-71-1962BBFCWBW CALCIUM - ICAN4.6 mg/dL Normal4.5-5.3ProMedMer[facility] HospitalComment on above:Performed By: #### UA #### [facility] ([facility]) [address] [place] [address] VIRIONIZED CALCIUM - ICAN5.1 mg/dLNormal4.5-5.3ProMedMer[facility] HospitalComment on above:Performed By: #### CBC #### [facility] ([facility]) [address] [place] [address] VIRIONIZED MAGNESIUMon 91-79-1649Qlyrwkcby [Moles/Vol]0.67 mmol/LNormal0.45-0.74Pro[facility] HospitalComment on above:Performed By: #### UA #### [facility] ([facility]) [address] [place] [address] VIRMagnesium [Moles/Vol]0.84 mmol/LHigh0.45-0.74Pro[facility] HospitalComment on above:Performed By: #### CBC #### [facility] ([facility]) [address] [place] [address] VIRPLATELET COUNTon 05-82-3350Cejjxssr mean volume (Bld) [Entitic vol]8.2 fLNormal7-12[facility] HospitalComment on above:Performed By: #### PLTCT ####[facility] ([facility])[address] [facility] [address], [place] [address] VIRPlatelets (Bld) [#/Vol]100 10*3/vRTsy481-285SedStaqjp [facility] HospitalComment on above:Performed By: #### PLTCT ####[facility] ([facility])[address] [facility] [address], [place] [address] VIRPOCT ABG RAPID K GLU HHon 42-75-7190RXYL,EXCESS1.3 mmol/LNormal0.0-2.0ProKettering [facility]burgca [facility] HospitalComment on above:Performed By: #### HRTN ####[facility] ([facility])[address] [place] [address] VIRBody kzgebkzuegn56.6 [degF]Normal>=37 [facility] HospitalComment on above:Performed By: #### HRTN ####[facility] ([facility])[address] [place] [address] VIRGlucose [Mass/Vol]155 mg/bBQrax47-77XecVvcavh [facility] HospitalComment on above:Performed By: #### HRTN ####[facility] ([facility])[address] [place] [address] VIRHCO3 (Bld) [Moles/Vol]25.7 mmol/KEynagy90.0-26.0ProSelect [facility] HospitalComment on above:Performed By: #### HRTN ####[facility] ([facility])[address] [place] [address] VIRHematocrit (Bld) [Volume fraction]37 %Sdv66-59VzvOfrdsr Jacobson HospitalComment on above:Performed By: #### HRTN ####[facility] ([facility])[address] [place] [address] VIR Hemoglobin (Bld) [Mass/Vol]12.1 g/dLLow13.0-17.0[facility] HospitalComment on above:Performed By: #### HRTN ####[facility] ([facility])[address] [place] [address] VIRINSP. O2 CONC.100.0 %NormalProMedica Palmer HospitalComment on above:Performed By: #### HRTN ####[facility] ([facility])[address] [place] [address] VIROxygen saturation in Blood99.8 % Normal>90.0[facility] Jacobson HospitalComment on above:Performed By: #### HRTN ####[facility] ([facility])[address] [place] [address] VIRPCO2 MATJFFRI60.2 meSjJbwnzj54.0-45.0[facility] HospitalComment on above: Performed By: #### HRTN ####[facility] ([facility])[address] [place] [address] VIRPH ARTERIAL7.680Igvfmo6.350-7.450Pro[facility] Palmer HospitalComment on above:Performed By: #### HRTN ####[facility] ([facility])[address] [place] [address] VIRPO2 [id number] [id number] [facility] HospitalComment on above:Performed By: #### HRTN ####[facility] ([facility])[address] [place] [address] VIRPOC YANI'S TEST NormalProMedica Palmer HospitalComment on above:Performed By: #### HRTN ####[facility] ([facility])[address] [place] [address] VIR Potassium [Moles/Vol]4.1 mmol/LNormal3.5-5.0Pro[facility] Palmer HospitalComment on above:Performed By: #### HRTN ####[facility] ([facility])[address] [place] [address] VIRSAMPLE SITEA LINENormalProMedica Jacobson HospitalComment on above:Performed By: #### HRTN ####[facility] ([facility])[address] [place] [address] VIRSAMPLE TYPEArterialNormalProKettering Health Miamisburgca [facility] Comment on above:Performed By: #### HRTN ####[facility] ([facility])[address] [place] [address] VIRBASE,EXCESS0.7 mmol/LNormal0.0-2.0 ProMSelect Medical [facility], [facility] HospitalComment on above:Performed By: #### HRTN ####[facility] ([facility])[address] [place] [address] VIRBody temperature 98.6 [degF]Normal>=37ProKettering Health Miamisburgca Jacobson HospitalComment on above:Performed By: #### HRTN ####[facility] ([facility])[address] [place] [address] VIRGlucose [Mass/Vol]163 mg/aJBxpc30-92YrwQizrgx Jacobson HospitalComment on above:Performed By: #### HRTN ####[facility] ([facility])[address] [place] [address] VIRHCO3 (Bld) [Moles/Vol]25.4 mmol/TWmfvac09.0-26.0 ProMSelect [facility], [facility] HospitalComment on above:Performed By: #### HRTN ####[facility] ([facility])[address] [place] [address] VIRHematocrit (Bld) [Volume fraction]36 %Cuj01-70VgfHeslss Jacobson HospitalComment on above:Performed By: #### HRTN ####[facility] ([facility])[address] [place] [address] VIRHemoglobin (Bld) [Mass/Vol]11.6 g/dLLow13.0-17.0ProKettering Health Miamisburgca Jacobson HospitalComment on above:Performed By: #### HRTN ####[facility] ([facility])[address] [place] [address] VIRINSP. O2 CONC.100.0 %NormalProMedica Jacobson HospitalComment on above:Performed By: #### HRTN ####[facility] ([facility])[address] [place] [address] VIROxygen saturation in Blood 100.1 %Normal>90.0ProMedica Jacobson HospitalComment on above:Performed By: #### HRTN ####[facility] ([facility])[address] [place] [address] VIR PCO2 JLWMWEZJ75.3 ifTsLvsylu67.0-45.0ProMedica Jacobson HospitalComment on above: Performed By: #### HRTN ####[facility] ([facility])[address] [place] [address] VIRPH ARTERIAL7.432Afexif7.350-7.450ProMedica Jacobson HospitalComment on above:Performed By: #### HRTN ####[facility] ([facility])[address] [place] [address] VIRPO2 WRBQKCFS700 jrOqIeer79-507 [facility]son HospitalComment on above:Performed By: #### HRTN ####[facility] ([facility])[address] [place] [address] VIRPOC YANI'S TEST NormalProMedica Jacobson HospitalComment on above:Performed By: #### HRTN ####[facility] ([facility])[address] [place] [address] VIR Potassium [Moles/Vol]4.3 mmol/LNormal3.5-5.0ProMedica Jacobson HospitalComment on above:Performed By: #### HRTN ####[facility] ([facility])[address] [place] [address] VIRSAMPLE SITEA LINENormalProMedica Jacobson HospitalComment on above:Performed By: #### HRTN ####[facility] ([facility])[address] [address] VIRSAMPLE TYPEArterialNormalProKettering Health Miamisburgca [facility] Comment on above:Performed By: #### HRTN ####[facility] ([facility])[address] [facility] [address] VIRBASE,EXCESS1.1 mmol/LNormal0.0-2.0 [facility]era Jacobson HospitalComment on above:Performed By: #### HRTN ####[facility] ([facility])[address] [address] VIRBody temperature 98.6 [degF]Normal>=37ProKettering Health Miamisburgca Jacobson HospitalComment on above:Performed By: #### HRTN ####[facility] ([facility])[address] [place] [address] VIRGlucose [Mass/Vol]159 mg/kTSvpt60-90KieGlehbt Jacobson HospitalComment on above:Performed By: #### HRTN ####[facility] ([facility])[address] [place] [address] VIRHCO3 (Bld) [Moles/Vol]25.5 mmol/JHlemtk71.0-26.0 ProMSelect [facility], Beach[facility] HospitalComment on above:Performed By: #### HRTN ####[facility] ([facility])[address] [address] VIRHematocrit (Bld) [Volume fraction]37 %Glf13-03HccVfdkkv Jacobson HospitalComment on above:Performed By: #### HRTN ####[facility] ([facility])[address] [facility] [place] [address] VIRHemoglobin (Bld) [Mass/Vol]11.9 g/dLLow13.0-17.0ProKettering Health Miamisburgca Jacobson HospitalComment on above:Performed By: #### HRTN ####[facility] ([facility])[address] [place] [address] VIRINSP. O2 CONC.100.0 %NormalProMedica Jacobson HospitalComment on above:Performed By: #### HRTN ####[facility] ([facility])[address] [place] [address] VIROxygen saturation in Blood 100.1 %Normal>90.0ProMedica Jacobson HospitalComment on above:Performed By: #### HRTN ####[facility] ([facility])[address] [place] [address] VIR PCO2 HWBUZUCA39.7 ebJfXezplq00.0-45.0ProMedica Jacobson HospitalComment on above: Performed By: #### HRTN ####[facility] ([facility])[address] [place] [address] VIRPH ARTERIAL7.360Pxfybj8.350-7.450ProMedica Jacobson HospitalComment on above:Performed By: #### HRTN ####[facility] ([facility])[address] [place] [address] VIRPO2 [id number] fnQsUdts34-994 [facility]son HospitalComment on above:Performed By: #### HRTN ####[facility] ([facility])[address] [place] [address] VIRPOC YANI'S TEST NormalProMedica Jacobson HospitalComment on above:Performed By: #### HRTN ####[facility] ([facility])[address] [place] [address] VIR Potassium [Moles/Vol]4.1 mmol/LNormal3.5-5.0ProMedica Jacobson HospitalComment on above:Performed By: #### HRTN ####[facility] ([facility])[address] [place] [address] VIRSAMPLE SITEA LINENormalProMedica Jacobson HospitalComment on above:Performed By: #### HRTN ####[facility] ([facility])[address] [place] [place] [address] VIRSAMPLE TYPEArterialNormalProKettering Health Miamisburgca [facility] Comment on above:Performed By: #### HRTN ####[facility] ([facility])[address] [place] [address] VIRBASE,EXCESS0.8 mmol/LNormal0.0-2.0 ProMSelect [facility], Beach[facility] HospitalComment on above:Performed By: #### HRTN ####[facility] ([facility])[address] [facility] [place] [address] VIRBody temperature 98.6 [degF]Normal>=37ProKettering Health Miamisburgca Jacobson HospitalComment on above:Performed By: #### HRTN ####[facility] ([facility])[address] [place] [address] VIRGlucose [Mass/Vol]140 mg/wGCsjt50-65HabTntnjv Jacobson HospitalComment on above:Performed By: #### HRTN ####[facility] ([facility])[address] [place] [address] VIRHCO3 (Bld) [Moles/Vol]24.6 mmol/PNznetg14.0-26.0 [facility] HospitalComment on above:Performed By: #### HRTN ####[facility] ([facility])[address] [facility] [address] VIRHematocrit (Bld) [Volume fraction]35 %Nwj25-16TdnAdxjpv Jacobson HospitalComment on above:Performed By: #### HRTN ####[facility] ([facility])[address] [place] [address] VIRHemoglobin (Bld) [Mass/Vol]11.4 g/dLLow13.0-17.0ProKettering Health Miamisburgca Jacobson HospitalComment on above:Performed By: #### HRTN ####[facility] ([facility])[address] [facility] [place] [address] VIRINSP. O2 CONC.100.0 %NormalProMemorial HospitalComment on above:Performed By: #### HRTN ####[facility] ([facility])[address] [place] [address] VIROxygen saturation in Blood 100.2 %Normal>90.0ProMemorial HospitalComment on above:Performed By: #### HRTN ####[facility] ([facility])[address] [place] [address] VIR PCO2 FNLUEDFJ76.6 weDyBtr71.0-45.0ProSelect Medical [facility] Hospital, [facility] HospitalComment on above: Performed By: #### HRTN ####[facility] ([facility])[address] [place] [address] VIRPH ARTERIAL7.190Vlwe3.350-7.450[facility] Comment on above:Performed By: #### HRTN ####[facility] ([facility])[address] [place] [address] VIRPO2 [id number] fyYjWulo75-146 [facility]son HospitalComment on above:Performed By: #### HRTN ####[facility] ([facility])[address] [place] [address] VIRPOC YANI'S TEST NormalProMemorial HospitalComment on above:Performed By: #### HRTN ####[facility] ([facility])[address] [place] [address] VIR Potassium [Moles/Vol]4.2 mmol/LNormal3.5-5.0ProMemorial HospitalComment on above:Performed By: #### HRTN ####[facility] ([facility])[address] [place] [address] VIRSAMPLE SITEA LINENormalProSelect Medical [facility], [facility] HospitalComment on above:Performed By: #### HRTN ####[facility] ([facility])[address] [place] [address] VIRSAMPLE TYPEArterialNormalProMemorial Hospital Comment on above:Performed By: #### HRTN ####[facility] ([facility])[address] [place] [address] VIRBASE,EXCESS0.9 mmol/LNormal0.0-2.0 [facility]son HospitalComment on above:Performed By: #### HRTN ####[facility] ([facility])[address] [place] [address] VIRBody temperature 98.6 [degF]Normal>=37ProMedica [facility]son HospitalComment on above:Performed By: #### HRTN ####[facility] ([facility])[address] [place] [address] VIRGlucose [Mass/Vol]134 mg/tQJvym82-99BtbZrpakc [facility]son HospitalComment on above:Performed By: #### HRTN ####[facility] ([facility])[address] [place] [address] VIRHCO3 (Bld) [Moles/Vol]24.8 mmol/NOpdjew23.0-26.0 [facility]era Jacobson HospitalComment on above:Performed By: #### HRTN ####[facility] ([facility])[address] [place] [address] VIRHematocrit (Bld) [Volume fraction]34 %Qwa05-38TmdHkpzid [facility]son HospitalComment on above:Performed By: #### HRTN ####[facility] ([facility])[address] [place] [address] VIRHemoglobin (Bld) [Mass/Vol]11.2 g/dLLow13.0-17.0Pro[facility]ica Jacobson HospitalComment on above:Performed By: #### HRTN ####[facility] ([facility])[address] [place] [address] VIRINSP. O2 CONC.100.0 %NormalProMedica Jacobson HospitalComment on above:Performed By: #### HRTN ####[facility] ([facility])[address] [place] [address] VIROxygen saturation in Blood 100.2 %Normal>90.0[facility] HospitalComment on above:Performed By: #### HRTN ####[facility] ([facility])[address] [place] [address] VIR PCO2 BSZDOMAJ53.4 joJbDlwtbn34.0-45.0[facility] HospitalComment on above: Performed By: #### HRTN ####[facility] ([facility])[address] [place] [address] VIRPH ARTERIAL7.779Vjlw8.350-7.450[facility] Comment on above:Performed By: #### HRTN ####[facility] ([facility])[address] [place] [address] VIRPO2 [id number] [id number] [facility]son HospitalComment on above:Performed By: #### HRTN ####[facility] ([facility])[address] [place] [address] VIRPOC YANI'S TEST NormalProKettering Health Miamisburgca [facility] HospitalComment on above:Performed By: #### HRTN ####[facility] ([facility])[address] [place] [address] VIR Potassium [Moles/Vol]4.4 mmol/LNormal3.5-5.0ProKettering Health Mi[facility]burgca [facility] HospitalComment on above:Performed By: #### HRTN ####[facility] ([facility])[address] [place] [address] VIRSAMPLE SITEA LINENormalProKettering Health Miamisburgca Jacobson HospitalComment on above:Performed By: #### HRTN ####[facility] ([facility])[address] [place] [address] VIRSAMPLE TYPEArterialNormalProKettering Health Miamisburgca [facility] Comment on above:Performed By: #### HRTN ####[facility] ([facility])[address] [place] [address] VIRPOCT ABG RAPID K GLU ICA HHon [id number],DEFICIT-0.8 mmol/LLow0.0-2.0Pro[facility]son HospitalComment on above:Performed By: #### [id number] ####[facility] ([facility])[address] [place] [address] VIRBody hslvqtskpju43.6 [degF]Normal>=37Pro[facility]son HospitalComment on above:Performed By: #### [id number] ####[facility] ([facility])[address] [place] [address] VIRGlucose [Mass/Vol]139 mg/bYYznq86-08 [facility] HospitalComment on above:Performed By: #### [id number] ####[facility] ([facility])[address] [place] [address] VIRHCO3 (Bld) [Moles/Vol]24.6 mmol/FKsmuri18.0-26.0ProKettering Health Miamisburgca Jacobson HospitalComment on above: Performed By: #### [id number] ####[facility] ([facility])[address] [place] [address] VIRHematocrit (Bld) [Volume fraction]38 %Cie17-33GstNprqru [facility]son HospitalComment on above:Performed By: #### [id number] ####[facility] ([facility])[address] [place] [address] VIRHemoglobin (Bld) [Mass/Vol]12.2 g/dLLow13.0-17.0[facility]son HospitalComment on above: Performed By: #### [id number] ####[facility] ([facility])[address] [place] [address] VIRINSP. O2 CONC.100.0 %NormalProKettering Health Miamisburgca [facility] Comment on above:Performed By: #### [id number] ####[facility] ([facility])[address] [place] [address] VIROxygen saturation in Itzqn096.2 % Normal>90.0[facility] HospitalComment on above:Performed By: #### [id number] ####[facility] ([facility])[address] [place] [address] VIRPCO2 COPOGASZ62.2 fxZhWeocud61.0-45.0[facility] HospitalComment on above: Performed By: #### [id number] ####[facility] ([facility])[address] [place] [address] VIRPH ARTERIAL7.668Yunbcb3.350-7.450[facility] HospitalComment on above:Performed By: #### [id number] ####[facility] ([facility])[address] [place] [address] VIRPO2 [id number] [facility] HospitalComment on above:Performed By: #### [id number] ####[facility] ([facility])[address] [place] [address] VIRPOC YANI'S TEST NormalProMedica Palmer HospitalComment on above:Performed By: #### [id number] ####[facility] ([facility])[address] [place] [address] VIR PORTABLE ICA4.9 mg/dLNormal4.5-5.3Pro[facility] HospitalComment on above: Performed By: #### [id number] ####[facility] ([facility])[address] [place] [address] VIRPotassium [Moles/Vol]3.9 mmol/LNormal3.5-5.0[facility] HospitalComment on above:Performed By: #### [id number] ####[facility] ([facility])[address] [place] [address] VIRSAMPLE SITEA LINENormal [facility] HospitalComment on above:Performed By: #### [id number] ####[facility] ([facility])[address] [place] [address] VIRSAMPLE TYPE ArterialNormalProMedica Palmer HospitalComment on above:Performed By: #### [id number] ####[facility] ([facility])[address] [place] [address] VIR BASE,DEFICIT-1.3 mmol/LLow0.0-2.0[facility] HospitalComment on above: Performed By: #### [id number] #### [facility] ([facility]) [address] [place] [address] VIRBody daijpqdtoqv55.6 [degF]Normal>=37Pro[facility] HospitalComment on above:Performed By: #### [id number] #### [facility] ([facility]) [address] [place] [address] VIRGlucose [Mass/Vol]170 mg/oXDwmu48-37UptJvraez Palmer HospitalComment on above:Performed By: #### [id number] #### [facility] ([facility]) [address] [place] [address] VIRHCO3 (Bld) [Moles/Vol]24.4 mmol/MSeqnmz33.0-26.0[facility]son HospitalComment on above:Performed By: #### [id number] #### [facility] ([facility]) [address] [place] [address] VIRHematocrit (Bld) [Volume fraction]52 %Rplu41-72BjqEvhizp Palmer HospitalComment on above:Performed By: #### [id number] #### [facility] ([facility]) [address] [place] [address] VIRHemoglobin (Bld) [Mass/Vol]16.9 g/fMZdbjvk45.0-17.0[facility] HospitalComment on above:Performed By: #### [id number] #### [facility] ([facility]) [address] [place] [address] VIRINSP. O2 CONC.100.0 %NormalProSelect Medical [facility], [facility] HospitalComment on above:Performed By: #### [id number] #### [facility] ([facility]) [address] [place] [address] VIROxygen saturation in Uidxh969.0 %Normal>90.0ProMemorial HospitalComment on above:Performed By: #### [id number] #### [facility] ([facility]) [address] [place] [address] VIRPCO2 KEXAPBPU75.6 hmUkVlvnrm71.0-45.0ProMemorial HospitalComment on above:Performed By: #### [id number] #### [facility] ([facility]) [address] [place] [address] VIRPH ARTERIAL7.745Cij0.350-7.450[facility] Comment on above:Performed By: #### [id number] #### [facility] ([facility]) [address] [place] [address] VIRPO2 [id number] fbXpPqiw59-886BltBhliphSelect Medical [facility] Comment on above:Performed By: #### [id number] #### [facility] ([facility]) [address] [place] [address] VIRPOC YANI'S TESTNormalProMemorial HospitalComment on above:Performed By: #### [id number] #### [facility] ([facility]) [address] [place] [address] VIRPORTABLE ICA4.8 mg/dLNormal4.5-5.3ProMedOhioHealth Comment on above:Performed By: #### [id number] #### [facility] ([facility]) [address] [place] [address] VIRPotassium [Moles/Vol]4.1 mmol/LNormal3.5-5.0ProMemorial HospitalComment on above:Performed By: #### [id number] #### [facility] ([facility]) [address] [place] [address] VIRSAMPLE SITEA LINENormalProMedica Jacobson HospitalComment on above:Performed By: #### [id number] #### [facility] ([facility]) [address] [place] [address] VIRSAMPLE TYPEArterialNormalProMedica Jacobson HospitalComment on above:Performed By: #### [id number] #### [facility] ([facility]) [address] [place] [address] VIRPOCT IMAGNon 18-63-4266Fatkmaeku [Moles/Vol]0.59 mmol/L Normal0.45-0.60[facility]son HospitalComment on above:Performed By: #### IMAGN #### [facility] ([facility]) [address] [place] [address] VIRPOTASSIUMon 93-50-9316Xlgfhzmsw [Moles/Vol]4.1 mmol/LNormal 3.5-5.0[facility]son HospitalComment on above:Performed By: #### UA #### [facility] ([facility]) [address] [place] [address] VIRPotassium [Moles/Vol]3.9 mmol/LNormal3.5-5.0[facility]son HospitalComment on above:Performed By: #### CBC #### [facility] ([facility]) [address] [place] [address] VIRPROTIME AND INRon 46-97-4024JPL7.1Tacbec7.9-1.2[facility]son HospitalComment on above:Performed By: #### CBC #### [facility] ([facility]) [address] [place] [address] VIRPT Coag (PPP) [Time]13.5 sHigh9.8-13.2Pro[facility] HospitalComment on above:Performed By: #### CBC #### [facility] ([facility]) [address] [place] [address] VIRINR0.2Bwazjz5.9-1.2[facility]son HospitalComment on above:Performed By: #### PINR #### [facility] ([facility]) [address] [place] [address] VIRPT Coag (PPP) [Time]10.0 sNormal9.8-13.2[facility] HospitalComment on above:Performed By: #### PINR #### [facility] ([facility]) [address] [place] [address] VIRTYPE AND SCREENon 19-05-4636TZL_KLLQVONhujanNfrJoiapc Palmer HospitalComment on above:Performed By: #### TSC #### [facility] ([facility]) [address] [place] [address] VIRRH_INTEPPositiveNormalProMedica Palmer HospitalComment on above:Performed By: #### TSC #### [facility] ([facility]) [address] [place] [address] VIRURINALYSISon 63-67-5164Dzatlrsrk Ql (U)NegativeNormal NegativeProMedica Palmer HospitalComment on above:Performed By: #### UA #### [facility] ([facility]) [address] [place] [address] VIRBLOOD/HGBNegativeNormalNegativeProMedica Palmer Hospital Comment on above:Performed By: #### UA #### [facility] ([facility]) [address] [place] [address] VIRColor (U)YellowNormalYellowProMedica Palmer HospitalComment on above:Performed By: #### UA #### [facility] ([facility]) [address] [place] [address] VIRGlucose Ql (U)>1000 mg/dLAbnormalNegativeProMedica Palmer HospitalComment on above:Performed By: #### UA #### [facility] ([facility]) [address] [place] [address] VIRKetones Ql (U)NegativeNormalNegativeProMedica Jacobson HospitalComment on above:Performed By: #### UA #### [facility] ([facility]) [address] [place] [address] VIRLeukocyte esterase Test strip Ql (U)NegativeNormalNegative [facility]son HospitalComment on above:Result Comment: High Concentrations of Glucose May Decrease the Reactivity of the Dipstick Leukocyte Test Pad. Performed By: #### UA #### [facility] ([facility]) [address] [place] [address] VIRMUCOUSPresentAbnormalNoneProMedica Jacobson HospitalComment on above:Performed By: #### UA #### [facility] ([facility]) [address] [place] [address] VIRNitrite Ql (U)NegativeNormalNegativeProKettering Health Miamisburgca Jacobson HospitalComment on above:Performed By: #### UA #### [facility] ([facility]) [address] [place] [address] VIRPH,URINE6.8Hcjgzi3.0-8.5[facility]son HospitalComment on above:Performed By: #### UA #### [facility] ([facility]) [address] [place] [address] VIRProtein Ql (U)TraceAbnormalNegativeProKettering Health Miamisburgca [facility] Comment on above:Performed By: #### UA #### [facility] ([facility]) [address] [place] [address] VIRR.B.CELLS<^8Nzyrnc1-2VghUxxjso Jacobson HospitalComment on above:Performed By: #### UA #### [facility] ([facility]) [address] [place] [address] VIRSpecific gravity (U) [Rel density]1.631Woxbjd0.003-1.035 [facility] HospitalComment on above:Performed By: #### UA #### [facility] ([facility]) [address] [place] [address] VIRTURBIDITYClearNormalClearProMemorial HospitalComment on above:Performed By: #### UA #### [facility] ([facility]) [address] [place] [address] VIRUROBILINOGEN<1.1 eu/dLNormal<1.1 eu/dLProMemorial HospitalComment on above:Performed By: #### UA #### [facility] ([facility]) [address] [place] [address] VIRW.B.CELLS<^7Koetmy0-1FuxKdpzze [facility] HospitalComment on above:Performed By: #### UA #### [facility] ([facility]) [address] [place] [address] VIRURINE CULTUREon [id number] identified Cx Nom (U) CULTURE RESULTS NO GROWTH AT <1000 CFU/mLNormalSelect Medical Cleveland Clinic Rehabilitation Hospital, Edwin ShawComment on above: Performed By: #### TSC #### [facility] ([facility]) [address] [place] [address] VIRXR CHEST 1 VWon 29-33-7528AG CHEST 1 VWXR CHEST 1 VW Clinical history: Tube/line placement post cardiac surgery. Comparisons: None Findings: AP portable supine chest radiograph obtained 3:17 PM. Changes of cardiac surgery/valve replacement now noted. Endotracheal tube is appropriate in position terminating 4.2 cm above the levelof the joel. Nasogastric tube terminates off of the radiograph in the left upper abdomen. Mediastinal drains and left-sided chest tube are present. Heart size does not appear enlarged. Bilateral perihilar subsegmental atelectasis is present. No large pleural effusion or pneumothorax on the supineradiograph. Right IJ Vineland-Jonathan catheter tip terminates in proximal right pulmonary artery. IMPRESSION: 1. Mild perihilar subsegmental atelectasis, otherwise no acute finding status post cardiac surgery as above. Finalized by Ronnell Ashton MD on 06/13/2025 3:30 [facility] CTA TAVRon 14-91-3972QH CTA TAVRCT CTA TAVR STUDY: CT angiography of the chest, abdomen and pelvis with contrast TAVR CLINICAL HISTORY: Aortic stenosis COMPARISON: CT abdomen pelvis 09/07/2021 TECHNIQUE: CT Angiography of the chest, abdomen and pelvis was performed utilizing thin section gated CTA of the chest following the uneventful administration of 100 ml Omnipaque 350 nonionic intravenous contrast. 3D volume rendered reformatted images were generated and reviewed on an independent wo rkstation under concurrent physician supervision. All CT scans at this facility use dose modulation, iterative reconstruction, and/or weight based dosing when appropriate to reduce radiation dose to as low as reasonably achievable FINDINGS: Aortic valve: Trileaflet, moderate valve leaflet calcification. Aortic valve calcium score 1922 Aortic annulus: 20.70 x 26.80 mm. Aortic annulus area is approximately 4.46 sq cm. Annulus perimeter 76.40 mm. Sinus cusp measurements: R: 32.88 mm N: 31.86 mm L: 33.40 mm Sinotubular junction: CPR: 24.80 mm MPR: 24.53 mm Right coronary artery ostium to annulus: 19.65 mm Left coronary artery ostium to annulus: 12.95 mm Minimal diameter (millimeter), area (square millimeter): Left common carotid: 6.00, 30.50 Left subclavian: 9.60, 76.20 Right brachycephalic: 10.00, 92.50 Right side: Mid common iliac: 9.30, 78.80 Common iliac:7.30, 85.00 External iliac:6.60, 39.70 Femoral: 5.60, 41.30 Left side: Mid common iliac:8.30, 62.50 Common iliac: 6.50, 48.50 External iliac: 5.70, 30.70 Femoral: 4.00, 31.40 Degree of right common iliac, external iliac, and common femoral artery calcification: Mixed plaque, moderate stenosis. Degree of left common iliac, external iliac, and common femoral arterial calcification: Mixed plaque, moderate stenosis. Chest: No enlarged lymph nodes. No thoracic aortic aneurysm. Heavy coronary calcifications. No lung nodules, airspace opacities, pleural pericardial effusions. Abdomen: No lesions in the liver, spleen, pancreas, adrenal glands or kidneys. No enlarged lymph nodes. No free fluid. Gallbladder within normal limits. Pelvis: No dilated bowel loops or pericolonic fat stranding. Mild colonic diverticulosis. Mild prostamegaly, bladder diverticula. No urinary tract obstruction. No osseous destructive lesions. IMPRESSION: Trileaflet aortic valve, moderate valve leaflet calcifications. Calcified plaque, moderate stenosis iliac, femoral arteries, measurements as described. Finalized by Bhavana Ferrari MD on 05/12/2025 6:12 AMNormalProMemorial HospitalBEDSIDE GLUCOSEon 56-86-1787Yviosmc [Mass/Vol]138 mg/uTRdts82-31 ProMmobile infirmary medical centera [facility] Brentwood HospitalComment on above:Performed By: #### BEDG #### [facility] ([facility]) [address] [place] [address] VIRBASIC METABOLIC PANELon 51-89-7144Isuuz gap [Moles/Vol]6 mmol/LNormal5-15T[facility] VA Medical CenterComment on above:Performed By: #### BMP #### [facility] ([facility]) [address] [place] [address] VIRCalcium [Mass/Vol]9.5 mg/dLNormal8.5-10.5PZanesville City HospitalComment on above:Performed By: #### BMP #### [facility] ([facility]) [address] [place] [address] VIRChloride [Moles/Vol]102 mmol/DJqkzkw40-396TuxHvoqbmTogus VA Medical CenterComment on above:Performed By: #### BMP #### [facility] ([facility]) [address] [place] [address] VIRCO2 [Moles/Vol]28 mmol/JTkmkgx12-37ZboQvhyczZanesville City HospitalComment on above:Performed By: #### BMP #### [facility] ([facility]) [address] [place] [address] VIRCreatinine [Mass/Vol]0.67 mg/dLNormal0.60-1.30ProMethodist Richardson Medical CenterComment on above:Result Comment: METHOD TRACEABLE TO IDMS STANDARDPerformed By: #### BMP #### [facility] ([facility]) [address] [place] [address] VIREGFR (CKD-EPI) NON-RACE DEPENDENT>^90Normal>=60ProMethodist Richardson Medical CenterComment on above:Result Comment: Reported eGFR is based on the CKD-EPI 2020 equation that does not use a race coefficient.Performed By: #### BMP #### [facility] ([facility]) [address] [place] [address] VIRGlucose [Mass/Vol]111 mg/wRGbvi32-14XtfTzxedmMethodist Richardson Medical CenterComment on above:Performed By: #### BMP #### [facility] ([facility]) [address] [place] [address] VIRPotassium [Moles/Vol]4.5 mmol/LNormal3.5-5.0ProMethodist Richardson Medical CenterComment on above:Performed By: #### BMP #### [facility] ([facility]) [address] [address] VIRSodium [Moles/Vol]136 mmol/YAitxqw416-177FssNubrlh Fremont HospitalComment on above:Performed By: #### BMP #### [facility] ([facility]) [address] [place] [address] VIRUrea nitrogen [Mass/Vol]12 mg/dLNormal5-27ProMethodist Richardson Medical CenterComment on above:Performed By: #### BMP #### [facility] ([facility]) [address] [address] VIRCBC (NO DIFF)on 64-67-5826Nlxnheaozhs distribution width (RBC) [Ratio]13.9 %Kbvkxh16.5-15ProMethodist Richardson Medical CenterComment on above: Performed By: #### CBC #### [facility] ([facility]) [address] [place] [address] VIRHematocrit (Bld) [Volume fraction]48.0 %Thosdv07-36IgpYktyxjTogus VA Medical CenterComment on above:Performed By: #### CBC #### [facility] ([facility]) [address] [place] [address] VIRHemoglobin (Bld) [Mass/Vol]16.4 g/tEBxrukq77-52UbmOwjupkMethodist Richardson Medical CenterComment on above:Performed By: #### CBC #### [facility] ([facility]) [address] [place] [address] VIRMCH (RBC) [Entitic mass]31.3 ekPppvia96-37ZmsPpqgkwTogus VA Medical CenterComment on above:Performed By: #### CBC #### [facility] ([facility]) [address] [place] [address] VIRMCHC (RBC) [Mass/Vol]34.1 g/iDIpmqsl06-45NeeUfjjerTogus VA Medical CenterComment on above:Performed By: #### CBC #### [facility] ([facility]) [address] [place] [address] VIRMCV (RBC) [Entitic vol]92 iIMdpnzl54-564UhbDsplsdTogus VA Medical CenterComment on above:Performed By: #### CBC #### [facility] ([facility]) [address] [place] [address] VIRPlatelet mean volume (Bld) [Entitic vol]8.9 fLNormal7-12 [facility] Medical CenterComment on above:Performed By: #### CBC #### [facility] ([facility]) [address] [place] [address] VIRPlatelets (Bld) [#/Vol]170 10*3/vHNullqj955-036HswHzwotj Fremont HospitalComment on above:Performed By: #### CBC #### [facility] ([facility]) [address] [place] [address] VIRRBC COUNT5.22 X10E12/LNormal4.1-5.7Togus VA Medical CenterComment on above:Performed By: #### CBC #### [facility] ([facility]) [address] [place] [address] VIRWBC (Bld) [#/Vol]6.6 10*3/uLNormal4-11T[facility] VA Medical CenterComment on above:Performed By: #### CBC #### [facility] ([facility]) [address] [place] [address] VIRPOCT EKGon 78-39-0209InkKoerzvTrumbull Regional Medical CenterLIPID PROFILEon 07-25-8828Nkuluxbepdt [Mass/Vol]148 mg/xQIrh074-376OzjLufwomTogus VA Medical Center Comment on above:Performed By: #### LIPR #### [facility] ([facility]) [address] [place] [address] VIRCholesterol in HDL [Mass/Vol]44 mg/dLNormal>39T[facility]us VA Medical CenterComment on above:Result Comment: HDL <40 mg/dL - High Risk HDL > or = 40mg/dL- Desirable HDL >60 mg/dL - Negative RiskPerformed By: #### LIPR #### [facility] ([facility]) [address] [place] [address] VIRCholesterol in LDL [Mass/Vol]67 mg/dLNormal<130ProMethodist Richardson Medical CenterComment on above:Result Comment: LDL <100 mg/dL - Desirable LDL >160 mg/dL - High RiskPerformed By: #### LIPR #### [facility] ([facility]) [address] [place] [address] VIRCHOLESTEROL:HDL3.2Jpdsjv8.0-5.0[facility] Comment on above:Performed By: #### LIPR #### [facility] ([facility]) [address] [place] [address] VIRTriglyceride [Mass/Vol]186 mg/rXSomk48-933OaaXofniiMethodist Richardson Medical CenterComment on above:Performed By: #### LIPR #### [facility] ([facility]) [address] [place] [address] VIRVERY LOW BZTTEJQDMHT80 mg/dLHigh0-30ProMethodist Richardson Medical CenterComment on above:Performed By: #### LIPR #### [facility] ([facility]) [address] [place] [address] VIRALL CBC WITH AUTO DIFFon 07-75-1777YSRJLJRJZ ABSOLUTE AUTO 0.1NOMS HealthcareBasophils/100 WBC (Bld)0.6 %0.2 - 2.0 %[facility] Eosinophils/100 WBC (Bld)2.1 %0.9 - 7.0 %NOM HealthcareErythrocyte distribution width (RBC) [Ratio]13.3 %11.0 - 15.0 %NOMS HealthcareHematocrit (Bld) [Volume fraction]48.4 %42.0 - 54.0 %NOM HealthcareHemoglobin (Bld) [Mass/Vol]16.5 g/dL 14.0 - 18.0 g/dLNOSSM RehabIMMATURE GRANULOCYTES ABS AUTO0.03[facility] Immature granulocytes/100 WBC (Bld)0.4 %0.0 - 0.5 %NOM HealthcareInterpretation and review of laboratory resultsAbnormalNONC HealthcareLYMPHOCYTES ABSOLUTE AUTO1.9NOMS HealthcareLymphocytes/100 WBC (Bld)23.1 %20.5 - 60.0 %NOMFitzgibbon HospitalMCH (RBC) [Entitic mass]31.4 pg25.9 - 34.0 pgNOSSM RehabMCHC (RBC) [Mass/Vol]34.1 g/dL29.9 - 35.2 g/dLNOSSM RehabMCV (RBC) [Entitic vol]92.2 fL 80.0 - 94.0 fLNOSSM RehabMONOCYTES ABSOLUTE AUTO0.8[facility] Monocytes/100 WBC (Bld)9.9 %1.7 - 12.0 %[facility] HealthNEUTROPHILS ABSOLUTE AUTO 5.1NOMS [facility] Medical CenterNeutrophils/100 WBC (Bld)63.9 %43.0 - 75.0 %[facility] Platelet mean volume (Bld) [Entitic vol]9.3 fLLow9.5 - 13.5 fLCarondelet HealthTB EO #0.2NOMS [facility] CenterTB [id number] [facility] RBC5.25NOMissouri [facility] Center WBC 8NOSSM RehabCLINISYNCNHermann Area District HospitalALL CBC WITH AUTO DIFFon 04-02-2025 BASOPHILS ABSOLUTE OTDC7OELWSSM RehabBasophils/100 WBC (Bld)0.5 %0.2 - 2.0 % NOMFitzgibbon HospitalEosinophils/100 WBC (Bld)2.3 %0.9 - 7.0 %[facility] Erythrocyte distribution width (RBC) [Ratio]13.2 %11.0 - 15.0 %[facility] Hematocrit (Bld) [Volume fraction]49.5 %42.0 - 54.0 %[facility] HealthHemoglobin (Bld) [Mass/Vol]16.5 g/dL14.0 - 18.0 g/dLCarondelet HealthIMMATURE GRANULOCYTES ABS AUTO0.04HighCarondelet HealthImmature granulocytes/100 WBC (Bld)0.5 %0.0 - 0.5 %[facility] HealthInterpretation and review of laboratory resultsAbnormalNOSSM RehabLYMPHOCYTES ABSOLUTE AUTO2.1NOMS [facility] Medical CenterLymphocytes/100 WBC (Bld) 24.6 %20.5 - 60.0 %[facility] Area District HospitalH (RBC) [Entitic mass]31 pg25.9 - 34.0 pg Herm[facility] HospitalHC (RBC) [Mass/Vol]33.3 g/dL29.9 - 35.2 g/dLHermann Area District HospitalV (RBC) [Entitic vol]93 fL80.0 - 94.0 fLCarondelet HealthMONOCYTES ABSOLUTE AUTO0.8 NOMFitzgibbon HospitalMonocytes/100 WBC (Bld)9.8 %1.7 - 12.0 %[facility] NEUTROPHILS ABSOLUTE AUTO5.2NOMS [facility] Medical CenterNeutrophils/100 WBC (Bld)62.3 %43.0 - 75.0 %[facility] HealthcarePlatelet mean volume (Bld) [Entitic vol]9.7 fL9.5 - 13.5 fL NOMS HealthcareTBH EO #0.2NOMS HealthcareTBH [id number] HealthcareTBH RBC5.32 NOMS HealthcareTBH WBC8.4NOMS HealthcareCLINISYNCNOMS RwldchsgvkApG4q (Bld) [Mass fraction]on 42-29-8651Wxswdtubukxuqz and review of laboratory results AbnormalSt. Luke's HospitalLaboratory - Hematology and Cell countson 79-72-3968FoG3t (Bld) [Mass fraction]7.9 %[facility] HealthSEGMENTAL BLOOD PRESSUREon 19-10-2659ZizR[place] [address] Cardiology Report Signed Patient: DARIN THACKER MR#: [id number] : 1950 Acct:[id number] Age/Sex: 74 / M ADM Date: 02/03/25 Loc: CARD Attending Dr: Yaneli Howell M.D. Ordering Physician: Yaneli Howell M.D. Date of Service: 02/03/25 Procedure(s): CA segmental UE or LE AIMEE Accession Number(s): [id number] cc: Tonya Dye NP; Yaneli Howell M.D. 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 Interpretive Statements [...] GALINDO Signed By: 02/03/25220202/03/252202 DD/ 1339 TD/TT: Senior Program Planner:TBHRadiology, Radiologist, - 02/03/2025 [place] [address] Cardiology Report Signed Patient: DARIN THACKER MR#: [id number] : 1950 Acct:[id number] Age/Sex: 74 / M ADM Date: 02/03/25 Loc: CARD Attending Dr: Yaneli Howell M.D. Ordering Physician: Yaneli Howell M.D. Date of Service: 02/03/25 Procedure(s): CA segmental UE or LE AIMEE Accession Number(s): [id number] cc: Tonya Dye INTERFACE DEVELOPER; Yaneli Howell M.D. 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 Interpretive Statements [...] GALINDO Signed By: 02/03/25220202/03/252202 DD/ 38 TD/TT: Senior Program Planner: [facility] HealthRadiology Study observation (narrative)[facility] BLOOD PRESSUREOrdered By: Radiologist Radiology on 63-75-3905SLUWCarondelet Health Work Phone: HbA1c (Bld) [Mass fraction]on 10-97-6486Vidchtnkcolodh and review of laboratory resultsAbnormAscension St Mary's HospitalLaboratory - Hematology and Cell countson 13-98-9720ToX4l (Bld) [Mass fraction]8.90 %Carondelet HealthUS.doppler Carotid arteries - bilateralon 98-74-2580U[address] [address] Ultrasound Report Signed Patient: DARIN THACKER MR#: [id number] : 1950 Acct:[id number] Age/Sex: 74 / M ADM Date: 08/22/24 Loc: US Attending Dr: Tonya Dye NP Ordering Physician: Tonya Dye NP Date of Service: 08/22/24 Procedure(s): US carotid duplex BI Accession Number(s): [id number] cc: Tonya Dye NP [address] [address] Patient Name: DARIN THACKER MRN: [facility]:[id number] date: 1950 Sex: M Assigned Patient Location: US Current Patient Location: US Accession/Order Number: [id number] Exam Date: 08/22/2024 14:05 Report Date: 08/22/2024 [...] standard protocol. ICA-CCA ratios are calculated with payroll representative peak-systolic velocities and recorded. Vertebral arteries [...] M.D. Signed By: 08/22/241725 DD/ 22 TD/TT: Senior Program Planner:TBHRadiology, Radiologist, MD - 08/22/2024 [place] [address] Ultrasound Report Signed Patient: DARIN THACKER MR#: [id number] : 1950 Acct:[id number] Age/Sex: 74 / M ADM Date: 08/22/24 Loc: US Attending Dr: Tonya Dye INTERFACE DEVELOPER Ordering Physician: Tonya Dye NP Date of Service: 08/22/24 Procedure(s): US carotid duplex BI Accession Number(s): [id number] cc: Tonya Dye NP [place] [id number] Patient Name: DARIN THACKER MRN: [facility]:[id number] date: 1950 Sex: M Assigned Patient Location: US Current Patient Location: US Accession/Order Number: [id number] Exam Date: 08/22/2024 14:05 Report Date: 08/22/2024 [...] standard protocol. ICA-CCA ratios are calculated with payroll representative peak-systolic velocities and recorded. Vertebral arteries [...] M.D. Signed By: 08/22/241725 DD/ 22 TD/TT: Senior Program Planner: GEENA HealthcareRadiology Study observation (narrative)GEENA HealthcareUS.doppler Carotid arteries - bilateralOrdered By: Radiologist Radiology on 07-74-4980BIHS SocialThreader Work Phone: aLL BASIC METABOLIC PANELon 02-89-3805Bzmbu gap [Moles/Vol]14.6 mmol/LNOMS HealthcareCalcium [Mass/Vol]9.4 mg/dL8.5 - 10.1 mg/dL NOMS HealthcareChloride [Moles/Vol]102 mmol/L98 - 107 mmol/LNOMS HealthcareCO2 [Moles/Vol]24.8 mmol/L21.0 - 32.0 mmol/LNOMS HealthcareCreatinine [Mass/Vol]0.72 mg/dL0.70 - 1.30 mg/dLNOMS HealthcareGFR/1.73 sq M.predicted CKD-EPI (S/P/Bld) [Vol rate/Area]>6060 - PINFNOMS HealthcareGlucose [Mass/Vol]128 mg/lWTrxv90 - 106 mg/dLNONC HealthcareInterpretation and review of laboratory resultsAbnormal NOMS HealthcarePotassium [Moles/Vol]4.4 mmol/L3.5 - 5.1 mmol/LNOMS Healthcare Sodium [Moles/Vol]137 mmol/L136 - 145 mmol/LNOMS HealthcareTBH EGFR-NON AF BRAZILIAN>6060 - PINFNOMS HealthcareUrea nitrogen [Mass/Vol]19.0 mg/dLHigh7.0 - 18.0 mg/dLNOMS HealthcareUrea nitrogen/Creatinine [Mass ratio]26.4 mg/mgNOMS HealthcareCLINISYNCNOMS HealthcareMRI HEAD/BRAIN WO/W CONTRon 03-24-1134[place] [address] Magnetic Resonance Report Signed Patient: DARIN THACKER MR#: [id number] : 1950 Acct:[id number] Age/Sex: 73 / M ADM Date: 02/05/24 Loc: LAB Attending Dr: Lynn Vallecillo M.D. Ordering Physician: Lynn Vallecillo M.D. Date of Service: 02/05/24 Procedure(s): MR head/brain wo/w con Accession Number(s): [id number] cc: Tonya Dye INTERFACE DEVELOPER; Lynn Vallecillo M.D. The [address] [address] Patient Name: DARIN THACKER MRN: [facility]:[id number] date: 1950 Sex: M Assigned Patient Location: LAB Current Patient Location: LAB Accession/Order Number: [id number] Exam Date: 02/05/2024 15:00 Report Date: 02/05/2024 16:48 At the request of: LYNN VALLECILLO Procedure: MR head/brain wo/w con MR head/brain [...] explain patient's symptoms. Electronically authenticated by: ARVIND KAHN Date: 02/05/2024 16:48 Dictated By: Arvind Kahn M.D. Signed By: 02/05/241650 DD/ TD/TT: Senior Program Planner:TBHRadiology, Radiologist, MD - 02/05/2024 [place] [address] Magnetic Resonance Report Signed Patient: DARIN THACKER MR#: [id number] : 1950 Acct:[id number] Age/Sex: 73 / M ADM Date: 02/05/24 Loc: LAB Attending Dr: Lynn Vallecillo M.D. Ordering Physician: Lynn Vallecillo M.D. Date of Service: 02/05/24 Procedure(s): MR head/brain wo/w con Accession Number(s): [id number] cc: Tonya Dye NP; Lynn Vallecillo M.D. [address] [address] Patient Name: DARIN THACKER MRN: [facility]:[id number] date: 1950 Sex: M Assigned Patient Location: LAB Current Patient Location: LAB Accession/Order Number: [id number] Exam Date: 02/05/2024 15:00 Report Date: 02/05/2024 16:48 At the request of: LYNN VALLECILLO Procedure: MR head/brain wo/w con MR head/brain [...] explain patient's symptoms. Electronically authenticated by: ARVIND KAHN Date: 02/05/2024 16:48 Dictated By: Arvind Kahn M.D. Signed By: 02/05/241650 DD/ 47 TD/TT: Senior Program Planner: GEENA HealthcareRadiology Study observation (narrative)[facility] Medical CenterI HEAD/BRAIN WO/W CONTROrdered By: Radiologist Radiology on 11-19-2404KTXICarondelet Health Work Phone: SEGMENTAL BLOOD PRESSUREon 92-79-5081[place] [address] Cardiology Report Signed Patient: DARIN THACKER MR#: [id number] : 1950 Acct:[id number] Age/Sex: 73 / M ADM Date: 01/23/24 Loc: CARD Attending Dr: OMID RICKS Ordering Physician: OMID RICKS Date of Service: 01/23/24 Procedure(s): CA segmental UE or LE AIMEE Accession Number(s): [id number] cc: OMID RICKS ; Tonya Dye NP [facility] Test Date: 2024-01-23 Pat Name: DARIN THACKER Department: Room: - Gender: 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 PVR waveforms with delayed upstroke, blunted amplitude and loss of dicrotic notch. Right: - no significant pressure gradient between cuffs - abnormal LYNN Left: - significant pressure gradient between the brachial and thigh cuff - significant pressure gradient between the calf and DP cuff - abnormal LYNN and TBI Impression: - significant arterial disease in the right lower extremity with mild hemodynamic impairment of the right lower extremity at rest (LYNN 0.95) - significant inflow (femoral artery or above) and outflow (tibioperoneal) arterial disease with moderate hemodynamic impairment of the left lower extremity at rest (LYNN 0.62) Electronically Signed On 01-23-2024 23:20:38 EDT by HARRISON GODDARD Dictated By: Harrison Goddard D.O. 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 PVR waveforms with delayed upstroke, blunted amplitude and loss of dicrotic notch. Right: - no significant pressure gradient between cuffs - abnormal LYNN Left: - significant pressure gradient between the brachial and thigh cuff - significant pressure gradient between the calf and DP cuff - abnormal LYNN and TBI Impression: - significant arterial disease in the right lower extremity with mild hemodynamic impairment of the right lower extremity at rest (LYNN 0.95) - significant inflow (femoral artery or above) and outflow (tibioperoneal) arterial disease with moderate hemodynamic impairment of the left lower extremity at rest (LYNN 0.62) Electronically Signed On 01-23-2024 23:20:38 EDT by HARRISON GODDARD Dictated By: Harrison Goddard D.O. Signed By: 01/23/24232001/23/242320 DD/ 1435 TD/TT: Senior Program Planner: GEENA HealthcareRadiology Study observation (narrative)[facility] BLOOD PRESSUREOrdered By: Radiologist Radiology on 87-48-0049PSBJ Healthcare Work Phone: Glucose Poct Glucometerson 48-58-8509Tvljhod [Mass/Vol]139 mg/dLNoUniversity Hospitals Parma Medical CenterComment on above: Result Comment: Random Glucose Reference Range is dependent on time and content of last meal. Glucose of more than 200 mg/dL in a nonstressed, ambulatory subject supports the diagnosis of Diabetes Mellitus. PERFORMED BY: [place] [address] [place] [address] PATHOLOGIST OPERATOR [employer] ANGELES PAUL M.D.Performed By: #### GLULS #### Point of Care testing ,Mdgcyed9Ted7: Cleaned MeterNoUniversity Hospitals Parma Medical CenterComment on above:Result Comment: PERFORMED BY: [facility] [address] [place] [address] PATHOLOGIST OPERATOR [employer] W[employer] ANGELES PAUL M.D.Performed By: #### GLULS #### Point of Care testing ,Glucose [Mass/Vol]166 mg/dLAdams County HospitalComment on above:Result Comment: Random Glucose Reference Range is dependent on time and content of last meal. Glucose of more than 200 mg/dL in a nonstressed, ambulatory subject supports the diagnosis of Diabetes Mellitus.Performed By: #### GLULS #### Point of Care testing ,Magdiel [id number]: [id number] Received: 12/28/23 Status: JERMAINE Kruger Num: [id number] Spec Type: Surgical Subm Dr: Ranulfo Zavala DO Tissues: A Skin Cyst (SEBACEOUS CYST RT SHOULDER) Procedures: HE, Gross/Micro L3 Age/ Patient Sex Location Account Attending Physician Darin Thacker 73/M [place] [id number] Ranulfo Zavala DO SPEC NUM: [id number] RECD: 12/28/23 STATUS: JERMAINE KRUGER NUM: [id number] ZORA: 12/27/[address]: Ranulfo Zavala DO ENTERED: 12/28/[address] [facility] [address]: SPEC TYPE: Surgical DEPT: S [...] material. The surrounding tissue is firm, yellow-shaw.. Locomotive Oiler sections are submitted in one cassette labeled A1. Microscopic Description Microscopic evaluation supports the above rendered diagnosis. CPT Codes 59416 Specimen: [id number] Received: 12/28/23 Status: JERMAINE Kruger Num: [id number] Spec Type: Surgical Subm Dr: Ranulfo Zavala DO Tissues: A Skin Cyst (SEBACEOUS CYST RT SHOULDER) Procedures: MICHAEL Gross/Micro L3 Patient: Darin Thacker [id number] (Continued) Signed (signature on file) Hillary Rosenbaum MD 12/29/23 1304NormalAcmc Healthcare SystemBasic Metabolic Panelon 12-20-2023 Anion gap [Moles/Vol]10.4 mmol/LNormal6.0-15.0[facility] Comment on above:Performed By: #### BMP, SCAN CBC #### [facility] [address] [place] [address] USACalcium [Mass/Vol]9.5 mg/dLNormal8.6-10.3FUniversity Hospitals Cleveland Medical CenterComment on above:Result Comment: PERFORMED BY: [place] [address] PATHOLOGIST OPERATOR [employer] WARF[employer] ANGELES PAUL M.D.Performed By: #### BMP, SCAN CBC #### [facility] [address] [place] [address] USAChloride [Moles/Vol]105 mmol/HGammzg48-393QobxlovgbAcmc Healthcare SystemComment on above:Performed By: #### BMP, SCAN CBC #### [facility] [address] [place] [address] USACO2 [Moles/Vol]24.3 mmol/OAodiuy29.0-31.0Acmc Healthcare SystemComment on above:Performed By: #### BMP, SCAN CBC #### [facility] [address] [place] [address] USACreatinine [Mass/Vol]0.66 mg/dLLow0.70-1.30Acmc Healthcare SystemComment on above:Performed By: #### BMP, SCAN CBC #### [facility] [address] [place] [address] USAGFR/1.73 sq M.predicted MDRD (S/P/Bld) [Vol rate/Area] mL/min/{1.73_m2}[facility] County HospitalComment on above: Performed By: #### BMP, SCAN CBC #### [facility] [address] [place] [id number] USAGlucose [Mass/Vol]129 mg/wPPowj49-355MahupxtimAcmc Healthcare SystemComment on above:Result Comment: Random Glucose Reference Range is dependent on time and content of last meal. Glucose of more than 200 mg/dL in a nonstressed, ambulatory subject supports the diagnosis of Diabetes Mellitus. ADA recommended reference rangePerformed By: #### BMP, SCAN CBC #### [facility] [address] [place] [address] USAPotassium [Moles/Vol]4.7 mmol/LNormal3.5-5.1FUniversity Hospitals Cleveland Medical CenterComment on above:Performed By: #### BMP, SCAN CBC #### [facility] [address] [place] [address] USASodium [Moles/Vol]135 mmol/CKed058-323EbtqcrupfAcmc Healthcare SystemComment on above:Performed By: #### BMP, SCAN CBC #### [facility] [address] [place] [address] USAUrea nitrogen [Mass/Vol]18 mg/dLNormal7-25Acmc Healthcare SystemComment on above:Performed By: #### BMP, SCAN CBC #### [facility] [address] [place] [address] USAECG 12 lead ECGon 93-88-4714INN 12 lead ECGOHIOHEALTH VAN [facility]ERT [facility] [place] [address] [place] [address] Electrocardiograph Report Signed Patient: Darin Thacker MR#: [id number] 96 : 1950 Acct:[id number] Age/Sex: 73 / M ADM Date: 12/20/23 Loc: Room: Type: [facility] Attending Dr: Ranulfo Zavala DO Ordering Provider: [...] When compared with ECG of 14-MAR-2021 10:14, [place] interval has increased Vent. rate has decreased BY 43 BPM Nonspecific T wave abnormality now evident in Lateral leads Confirmed by Travon Livingston ([id number]) on 12/20/2023 7:43:38 PM Referred By: YUDI Electronically Signed By:Travon Livingston Transcribed By: BRENNAN Signed By Travon Livingston MD 12/20/23 1943NoAultman Orrville Hospitalcan and CBCon 12-20-2023 Basophils (Bld) [#/Vol]0.0 10*3/uLNormal0.0-0.2FUniversity Hospitals Cleveland Medical Center Comment on above:Result Comment: PERFORMED BY: [place] [address] PATHOLOGIST OPERATOR [employer]ARF[employer] ANGELES PAUL M.D.Performed By: #### BMP, SCAN CBC #### [facility] [address] [place] [address] USABasophils/100 WBC (Bld)0.6 %Normal.Acmc Healthcare SystemComment on above:Performed By: #### BMP, SCAN CBC #### [facility] [address] [place] [address] USAEosinophils (Bld) [#/Vol]0.1 10*3/uLNormal0.0-0.45 Acmc Healthcare SystemComment on above:Performed By: #### BMP, SCAN CBC #### [facility] [address] [place] [address] USAEosinophils/100 WBC (Bld)1.4 %Normal.Acmc Healthcare SystemComment on above:Performed By: #### BMP, SCAN CBC #### [facility] [address] [place] [address] USAErythrocyte distribution width (RBC) [Ratio]14.5 %Normal 12.0-14.8Acmc Healthcare SystemComment on above:Performed By: #### BMP, SCAN CBC #### [facility] [address] [place] [address] USAHematocrit (Bld) [Volume fraction]53.7 %High38.8-50.0 Acmc Healthcare SystemComment on above:Performed By: #### BMP, SCAN CBC #### [facility] [address] [place] [address] USAHemoglobin (Bld) [Mass/Vol]18.3 g/lXEgkp60.0-17.0Acmc Healthcare SystemComment on above:Performed By: #### BMP, SCAN CBC #### [facility] [address] [place] [address] USALymphocytes (Bld) [#/Vol]1.6 10*3/uLNormal1.00-4.8 Acmc Healthcare SystemComment on above:Performed By: #### BMP, SCAN CBC #### [place] [address] USALymphocytes/100 WBC (Bld)22.2 %Normal.Acmc Healthcare SystemComment on above:Performed By: #### BMP, SCAN CBC #### [facility] [address] [place] [address] USAMCH (RBC) [Entitic mass]31.7 kcFzfqep24.5-35.2FUniversity Hospitals Cleveland Medical CenterComment on above:Performed By: #### BMP, SCAN CBC #### [place] [address] USAMCV (RBC) [Entitic vol]92.8 gEZpljmx31.5-101Acmc Healthcare SystemComment on above:Performed By: #### BMP, SCAN CBC #### [place] [address] USAMean Corpuscular HGB Conc34.1 g/gLTshboy91.5-35.6FUniversity Hospitals Cleveland Medical CenterComment on above:Performed By: #### BMP, SCAN CBC #### [facility] [address] [place] [address] USAMonocytes (Bld) [#/Vol]0.7 10*3/uLNormal0.0-0.8Acmc Healthcare SystemComment on above:Performed By: #### BMP, SCAN CBC #### [address] [place] [address] USAMonocytes/100 WBC (Bld)9.8 %Normal.Acmc Healthcare SystemComment on above:Performed By: #### BMP, SCAN CBC #### [facility] [address] [place] [address] USANeutrophils (Bld) [#/Vol]4.8 10*3/uLNormal1.8-7.7FUniversity Hospitals Cleveland Medical CenterComment on above:Performed By: #### BMP, SCAN CBC #### [facility] [address] [place] [address] USANeutrophils/100 WBC (Bld)66.0 %Normal.Acmc Healthcare SystemComment on above:Performed By: #### BMP, SCAN CBC #### [place] [address] USANRBC%0.4 /100{WBC}Normal0-0.5FUniversity Hospitals Cleveland Medical CenterComment on above:Performed By: #### BMP, SCAN CBC #### [facility] [address] [place] [address] USAPlatelet EstimateNormalNormalNormDunlap Memorial HospitalComment on above:Performed By: #### BMP, SCAN CBC #### [facility] [address] [place] [address] USAPlatelet mean volume (Bld) [Entitic vol]8.1 fLNormal 6.6-10.1FUniversity Hospitals Cleveland Medical CenterComment on above:Performed By: #### BMP, SCAN CBC #### [facility] [address] [place] [address] USAPlatelet MorphologyNormalNormalNormDunlap Memorial HospitalComment on above:Result Comment: PERFORMED BY: [place] [address] PATHOLOGIST OPERATOR [employer] WARF[employer] ANGELES PAUL M.D.Performed By: #### BMP, SCAN CBC #### [facility] [address] [place] [address] USAPlatelets (Bld) [#/Vol]206 10*3/pRUhhogo682-924YcqmtbafrAcmc Healthcare SystemComment on above:Performed By: #### BMP, SCAN CBC #### [facility] [address] [place] [address] USARBC (Bld) [#/Vol]5.78 10*6/uLHigh3.90-5.60Acmc Healthcare SystemComment on above:Performed By: #### BMP, SCAN CBC #### [facility] [address] [place] [address] USARBC morphology finding Nom (Bld)NormalNormalNormal Acmc Healthcare SystemComment on above:Performed By: #### BMP, SCAN CBC #### [facility] [address] [place] [address] USAWBC (Bld) [#/Vol]7.3 10*3/uLNormal4.1-10.5FUniversity Hospitals Cleveland Medical CenterComment on above:Performed By: #### BMP, SCAN CBC #### [facility] [address] [place] [address] USACT SINUS WO CONon 84-67-2697[place] [address] CT Scan Report Signed Patient: DARIN THACKER MR#: [id number] : 1950 Acct:[id number] Age/Sex: 73 / M ADM Date: 12/05/23 Loc: CT Attending Dr: Tonya Dye NP Ordering Physician: Tonya Dye NP Date of Service: 12/05/23 Procedure(s): CT sinus wo con Accession Number(s): [id number] cc: Tonya Dye NP [place] [id number] Patient Name: DARIN THACKER MRN: [facility]:[id number] date: 1950 Sex: M Assigned Patient Location: CT Current Patient Location: CT Accession/Order Number: [id number] Exam Date: 12/05/2023 12:53 Report Date: 12/05/2023 [...] Signed By: 12/05/23 1328 DD/ 1325 TD/TT: Senior Program Planner:TBHRadiology, Radiologist, - 12/05/2023 [place] [address] CT Scan Report Signed Patient: DARIN THACKER MR#: [id number] : 1950 Acct:[id number] Age/Sex: 73 / M ADM Date: 12/05/23 Loc: CT Attending Dr: Tonya Dye NP Ordering Physician: Tonya Dye NP Date of Service: 12/05/23 Procedure(s): CT sinus wo con Accession Number(s): [id number] cc: Tonya Dye NP [place] [id number] Patient Name: DARIN THACKER MRN: [facility]:[id number] date: 1950 Sex: M Assigned Patient Location: CT Current Patient Location: CT Accession/Order Number: [id number] Exam Date: 12/05/2023 12:53 Report Date: 12/05/2023 [...] Signed By: 12/05/23 1328 DD/ 1325 TD/TT: Senior Program Planner: GEENA HealthcareRadiology Study observation (narrative)[facility] HealthCT SINUS WO CONOrdered By: Radiologist Radiology on 21-80-0970QGTFCarondelet Health Work Phone: MLR HEMOGLOBIN A1Con 81-24-9223Enqzbyc [Mass/Vol]192 mg/dLCarondelet HealthHbA1c (Bld) [Mass fraction]8.3 %High4.5 - 6.2 %[facility] HealthcareComment on above:ADA RECOMMENDED LIMIT 4.0 - 6.0 ADA THERAPEUTIC TARGET < 7.0 ACTION SUGGESTED > 7.0 Interpretation and review of laboratory resultsAbnoGeisinger-Shamokin Area Community HospitalCLINISYNC [facility] HealthcareXR elbow BI 2Von 34-37-2102XH elbow BI 2VOHIOHEALTH VAN WERT [facility]OSPITAL Main [place] [address] [place] [address] XRay Report Signed Patient: Darin Thacker MR#: [id number] 96 : 1950 Acct:[id number] Age/Sex: 73 / M ADM Date: 10/24/23 [place] [facility] [place] Type: [facility] Attending Dr: Shen Luis MD Copies to: [...] Gordon Jr., D.OPalak10/24/2023 2:29 PM Dictation Location: [place] [address] Transcribed By: [facility] 10/24/23 142 Dictated By: Dust[place] Gordon Jr, DO 10/24/23 1428 Signed By: 10/24/23 1429Adams County HospitalCT ABDOMEN WO/W CONon 66-71-6915ZQ ABDOMEN WO/W CONEXAMINATION: CT ABDOMEN WO/W CON HISTORY: Disorder of [...] Electronically authenticated by: BHAVANA MOREAU Date: 2023-01-31 16:31NoRiverview Health Institute AUTO DIFFon 41-59-1309IRRH #0.0 103/ulNormal0.0-0.1L[facility] Beachwood Medical CenterComment on above:Performed By: #### BMP #### [facility] [address] [place] [address] Dr. Lucho De LeónBasophils/100 WBC (Bld)0.6 %Normal0.2-2.0The [facility] Comment on above:Performed By: #### BMP #### [facility] [address] [place] [address] Dr. Lucho Hernandez #0.1 103/ulNormal0.0-0.7The [facility] ClinicComment on above: Performed By: #### BMP #### [facility] [address] [place] [address] Dr. Lucho Herbertosinophils/100 WBC (Bld)1.4 %Normal0.9-7.0The [facility] Comment on above:Performed By: #### BMP #### [facility] [address] [place] [address] Dr. Lucho Herbertrythrocyte distribution width (RBC) [Ratio]13.7 %Lflhwz10.0-15.0 The [facility] ClinicComment on above:Performed By: #### BMP #### [facility] [address] [place] [address] Dr. Lucho De LeónHematocrit (Bld) [Volume fraction]51.2 %Mwckle35.0-54.0The [facility] ClinicComment on above:Performed By: #### BMP #### [facility] [address] [place] [address] Dr. Lucho De LeónHemoglobin (Bld) [Mass/Vol]17.5 g/vKZxstcy03.0-18.0The [facility] ClinicComment on above:Performed By: #### BMP #### [facility] [address] [place] [address] Dr. Lucho De LeónIG #0.02 10e3/ulNormal0.00-0.03The [facility] ClinicComment on above:Performed By: #### BMP #### [facility] [address] [place] [address] Dr. Lucho De LeónIG %0.3 %Normal0.0-0.5The [facility] ClinicComment on above: Performed By: #### BMP #### [facility] [address] [place] [address] Dr. Lucho GeronimoMPH #1.5 103/ulNormal1.2-3.8The [facility] ClinicComment on above:Performed By: #### BMP #### [facility] [address] [place] [address] Dr. Lucho Geronimomphocytes/100 WBC (Bld)22.1 %Xhapry16.5-60.0The [facility] ClinicComment on above:Performed By: #### BMP #### [facility] [address] [place] [address] Dr. Lucho Calero DIFF REQNONormalThe [facility] ClinicComment on above: Performed By: #### BMP #### [facility] [address] [place] [address] Dr. Lucho Linton (RBC) [Entitic mass]31.0 grUqckqa27.9-34.0The [facility] ClinicComment on above:Performed By: #### BMP #### [facility] [address] [place] [address] Dr. Lucho Linton (RBC) [Mass/Vol]34.2 g/dNWedkmt62.9-35.2The [facility] ClinicComment on above:Performed By: #### BMP #### [facility] [address] [place] [address] Dr. Lucho Linton (RBC) [Entitic vol]90.6 cMShjcmq59.0-94.0The [facility] ClinicComment on above:Performed By: #### BMP #### [facility] [address] [place] [address] Dr. Lucho Diaz #0.7 103/ulNormal0.3-0.8The [facility] ClinicComment on above:Performed By: #### BMP #### [facility] [address] [place] [address] Dr. Lucho Fengocytes/100 WBC (Bld)10.7 %Normal1.7-12.0The [facility] Comment on above:Performed By: #### BMP #### [facility] [address] [place] [address] Dr. Lucho Schuster #4.3 103/ulNormal1.4-6.5The [facility] ClinicComment on above:Performed By: #### BMP #### [facility] [address] [place] [address] Dr. Lucho Hennessyutrophils/100 WBC (Bld)64.9 %Dqtzqh59.0-75.0The [facility] ClinicComment on above:Performed By: #### BMP #### [facility] [address] [place] [address] [address] Lucho De LeónPlatelet mean volume (Bld) [Entitic vol]9.1 fLCritically low 9.5-13.5The [facility] on above:Performed By: #### BMP #### [facility] [address] [place] [address] [address] Lucho De LeónPLT220 103/ueNhqjci170-926Hyn [facility] ClinicComment on above: Performed By: #### BMP #### [facility] [address] [place] [address] [address] Lucho De LeónRBC5.65 106/ulNormal4.70-6.10The [facility] ClinicComment on above:Performed By: #### BMP #### [facility] [address] [place] [address] Dr. Lucho De LeónWBC6.6 103/ulNormal4.0-11.0The [facility] ClinicComment on above: Performed By: #### BMP #### [facility] [address] [place] [address] Dr. Lucho De LeónGLYCOHEMOGLOBIN A1Con 36-05-6459EHV RECOMMENDATIONSEE BELOWNormWhite HospitalCominsight surgical hospital on above:Result Comment: ADA RECOMMENDED LIMIT 4.0 - 6.0 ADA THERAPEUTIC TARGET < 7.0 ACTION SUGGESTED > 7.0Performed By: #### CVDTBH #### [facility] [address] [place] [address] Dr. Lucho De LeónGlucose [Mass/Vol]209 mg/dLNormalThe [facility] ClinicCominsight surgical hospital on above:Performed By: #### CVDTBH #### [facility] [address] [place] [address] [address] Lucho De LeónHbA1c (Bld) [Mass fraction]8.9 %Critically high4.5-6.2The [facility] ClinicComment on above:Performed By: #### CVDTBH #### [facility] [address] [place] [address] [address] Lucho Sams 22-38-0961Jwwc [Mass/Vol]59.0 ug/dLCritically low 65.0-175.0The [facility] ClinicComment on above:Performed By: #### BMP #### [facility] [address] [place] [address] [address] Lucho De LeónLIPID PROFILEon 97-50-1264YZOJ-HDL RATIO NORMSBellevue HospitalComment on above:Result Comment: 3.3 - 4.4 LOW RISK 4.4 - 7.1 AVERAGE RISK 7.1 - 11.0 MODERATE RISK >11.0 HIGH RISKPerformed By: #### BMP #### [facility] [address] [place] [address] [address] Lucho De LeónCholesterol [Mass/Vol]177 mg/dLNormal<=200The [facility] Comment on above:Performed By: #### BMP #### [facility] [address] [place] [address] Dr. Lucho De LeónCholesterol in HDL [Mass/Vol]50 mg/dWQipzum06-98Yxq [facility] ClinicComment on above:Performed By: #### BMP #### [facility] [address] [place] [address] [address] Lucho De LeónCholesterol in LDL [Mass/Vol]89.2 mg/dLBlanchard Valley Health System Blanchard Valley HospitalComment on above:Performed By: #### BMP #### [facility] [address] [place] [address] [address] Lucho De LeónCholesterol.total/Cholesterol in HDL [Mass ratio]3.5 {ratio} NormalThe [facility] ClinicComment on above:Performed By: #### BMP #### [facility] [address] [place] [address] [address] Lucho De LeónHDL NORMAL> or = 60 mg/dl - LOW CARDIOVASCULAR RISK <40 mg/dl - HIGH CARDIOVASCULAR RISKBlanchard Valley Health System Blanchard Valley HospitalComment on above:Performed By: #### BMP #### [facility] [address] [place] [address] Dr. Lucho De LeónLDL CALC NORMALSEE [facility] Ontario HospitalComment on above:Result Comment: <100 mg/dl OPTIMAL 100 - 129 mg/dl NEAR OR ABOVE OPTIMAL 130 - 159 mg/dl BORDERLINE HIGH 160 - 189 mg/dl HIGH >190 mg/dl VERY HIGH Performed By: #### BMP #### [facility] [address] [place] [address] Dr. Lucho De LeónTriglyceride [Mass/Vol]189 mg/dLCritically high<=150The [facility] Hospitalment on above:Performed By: #### BMP #### [facility] [address] [place] [address] Dr. Lucho De LeónVLDL CALC37.8 mg/dLNormalThe [facility] ClinicComment on above: Performed By: #### BMP #### [facility] [address] [place] [address] Dr. Lucho Alanis, RAND URon 97-60-8578bRIE5.6 mg/LNormal<=30.0The [facility] ClinicCominsight surgical hospital on above:Performed By: #### MALBR #### [facility] [address] [place] [address] Dr. Lucho De LeónPROF 14(COMP METB)on 31-15-4389Kbtlqef [Mass/Vol]3.6 g/dLNormal 3.4-5.0The [facility] on above:Performed By: #### BMP #### [facility] [address] [place] [address] Dr. Lucho De LeónAlbumin/Globulin [Mass ratio]0.9 {ratio}NormalThe [facility] on above:Performed By: #### BMP #### [facility] [address] [place] [address] Dr. Lucho LeeP [Catalytic activity/Vol]95 U/UGgwoix04-956Tkt [facility] ClinicCominsight surgical hospital on above:Performed By: #### BMP #### [facility] [address] [place] [address] Dr. Lucho LeeT [Catalytic activity/Vol]26 U/VIcnlik63-74Wty [facility] on above:Performed By: #### BMP #### [facility] [address] [place] [address] [address] Lucho Parks gap [Moles/Vol]16.7 mmol/LNormalThe [facility] Comment on above:Performed By: #### BMP #### [facility] [address] [place] [address] [address] Lucho De LeónAST [Catalytic activity/Vol]13 U/LCritically sfz59-94Mhu [facility] ClinicComment on above:Performed By: #### BMP #### [facility] [address] [place] [address] [address] Lucho De LeónBilirubin [Mass/Vol]0.3 mg/dLNormal0.2-1.0The [facility] Comment on above:Performed By: #### BMP #### [facility] [address] [place] [address] Dr. Lucho De LeónCalcium [Mass/Vol]9.7 mg/dLNormal8.5-10.1The [facility] Comment on above:Performed By: #### BMP #### [facility] [address] [place] [address] Dr. Lucho De LeónChloride [Moles/Vol]103 mmol/WBteszk00-908Czp [facility] Comment on above:Performed By: #### BMP #### [facility] [address] [place] [address] Dr. Lucho De LeónCO2 [Moles/Vol]24.9 mmol/NFxqudk81.0-32.0The [facility] Comment on above:Performed By: #### BMP #### [facility] [address] [place] [address] Dr. Lucho De LeónCreatinine [Mass/Vol]0.81 mg/dLNormal0.70-1.30The [facility] ClinicComment on above:Performed By: #### BMP #### [facility] [address] [place] [address] [address] Lucho Holliday-AF BRAZILIAN>60Normal>=60The [facility] ClinicComment on above:Performed By: #### BMP #### [facility] [address] [place] [address] Dr. Yilan ChangEGFR-NON AF BRAZILIAN>60Normal>=60The [facility] ClinicComment on above:Performed By: #### BMP #### [facility] [address] [place] [address] [address] Lucho De LeónGlobulin (S) [Mass/Vol]4.2 g/dLNormTriHealth Good Samaritan HospitalComment on above:Performed By: #### BMP #### [facility] [address] [place] [address] Dr. Lucho De LeónGlucose [Mass/Vol]156 mg/dLCritically avbo29-284Mla [facility] ClinicComment on above:Performed By: #### BMP #### [facility] [address] [place] [address] Dr. Lucho De LeónPotassium [Moles/Vol]4.6 mmol/LNormal3.5-5.1The [facility] Comment on above:Performed By: #### BMP #### [facility] [address] [place] [address] Dr. Lucho De LeónProtein [Mass/Vol]7.8 g/dLNormal6.4-8.2The [facility] Comment on above:Performed By: #### BMP #### [facility] [address] [place] [address] Dr. Luhco De LeónSodium [Moles/Vol]140 mmol/IBngzif806-793Sgy [facility] Comment on above:Performed By: #### BMP #### [facility] [address] [place] [address] Dr. Lucho De LeónUrea nitrogen [Mass/Vol]15.0 mg/dLNormal7.0-18.0The [facility] ClinicComment on above:Performed By: #### BMP #### [facility] [address] [place] [address] Dr. Lucho March nitrogen/Creatinine [Mass ratio]18.5 mg/mgNormalThKettering Health Greene MemorialComment on above:Performed By: #### BMP #### [facility] [address] [place] [address] Dr. Lucho De LeónUA RANDOM W/MICROSCOPICon [id number] SEENNormalNONE SEENLakehealth Beachwood Medical CenterCominsight surgical hospital on above:Performed By: #### CBC #### [facility] [address] [address] [address] Lucho De LeónBilirubin Ql (U)NegativeNormalNEGMorrow County Hospital Comment on above:Performed By: #### CBC #### [facility] [address] [address] [address] Lucho De LeónCASTNONE SEENNormalNONE SEENLakehealth Beachwood Medical CenterCominsight surgical hospital on above:Performed By: #### CBC #### [facility] [address] [address] [address] Lucho De LeónClarity (U)CLEARNormalCLEARLakehealth Beachwood Medical CenterCominsight surgical hospital on above: Performed By: #### CBC #### [facility] [address] [place] [address] Dr. Lucho De LeónColor (U)LT. YELLOWNormalYMiddletown HospitalComment on above:Performed By: #### CBC #### [facility] [address] [place] [address] Dr. Lucho De LeónCrystals LM Nom (Urine sed)NONE SEENNormalNONE SEENLakehealth Beachwood Medical CenterCominsight surgical hospital on above:Performed By: #### CBC #### [facility] [address] [place] [address] Dr. Yepez ChangEpithelial cells LM Ql (Urine sed)NONE SEENNormalNONE SEEN /RARE [facility] CenterCominsight surgical hospital on above:Performed By: #### CBC #### [facility] [address] [place] [address] Dr. Lucho De LeónGlucose Ql (U)1000 mg/dlAbnormalNEGMorrow County Hospital Comment on above:Performed By: #### CBC #### [facility] [address] [place] [address] Dr. Lucho De LeónHemoglobin Ql (U)NegativeNormalNEGMorrow County Hospital Comment on above:Performed By: #### CBC #### [facility] [address] [place] [address] Dr. Lucho Kruse Ql (U)NegativeNormalNEGATIVEThe [facility] ClinicComment on above:Performed By: #### CBC #### [facility] [address] [place] [address] Dr. Lucho McgheeOCYTESNegativeNormalNEGATIVEThe [facility] ClinicComment on above:Performed By: #### CBC #### [facility] [address] [address] [address] Lucho HendersonCOUSNONJoesph SEENNormalNONE SEENLakehealth Beachwood Medical CenterComment on above:Performed By: #### CBC #### [facility] [address] [address] [address] Lucho Zayas Ql (U)NegativeNormalNEGATIVEThe [facility] ClinicComment on above:Performed By: #### CBC #### [facility] [address] [place] [address] Dr. Lucho De LeónpH (U)5.5 [pH]Normal5-9The [facility] ClinicComment on above: Performed By: #### CBC #### [facility] [address] [place] [address] Dr. Lucho De LeónRBCNJOEL SEENAbnormal0-2The [facility] Hospitalment on above: Performed By: #### CBC #### [facility] [address] [place] [address] Dr. Lucho De LeónSPEC GRAVITY1.883Jtyoga4.005-<=1.025The [facility] ClinicComment on above:Performed By: #### CBC #### [facility] [address] [place] [address] Dr. Lucho Seth PROTEINNegativeNormalNEGATIVE/ TRACEThe [facility] on above:Performed By: #### CBC #### [facility] [address] [place] [address] Dr. Lucho Sortobilkana Qn (U)0.2 {Danny'U}/dLNormal0.2 - 1.0The [facility] ClinicComment on above:Performed By: #### CBC #### [facility] [address] [address] [address] Lucho De LeónWBCNONE SEENNormalNONE SEENThe [facility] ClinicComment on above: Performed By: #### CBC #### [facility] [address] [place] [address] Dr. Lucho Adams CAROTID ART BILon [id number] CAROTID ART BILEXAMINATION: US CAROTID ART AIMEE HISTORY: Aortic stenosis, [...] Electronically authenticated by: BHAVANA MOREAU Date: 2022-12-20 16:32NormalThCleveland Clinic [facility] AUTO DIFFon [id number] #0.1 103/ulNormal0.0-0.1[facility]wood Medical CenterComment on above:Performed By: #### HGBHCT #### [facility] [address] [place] [address] Dr. Lucho De LeónBasophils/100 WBC (Bld)0.6 %Normal0.2-2.0[facility] Comment on above:Performed By: #### HGBHCT #### [facility] [address] [address] [address] Lucho Hernandez #0.1 103/ulNormal0.0-0.7The [facility] ClinicComment on above: Performed By: #### HGBHCT #### [facility] [address] [address] [address] Lucho Herbertosinophils/100 WBC (Bld)1.1 %Normal0.9-7.0[facility] Comment on above:Performed By: #### HGBHCT #### [facility] [address] [place] [address] Dr. Lucho Herbertrythrocyte distribution width (RBC) [Ratio]13.6 %Rczjmy80.0-15.0 The [facility] ClinicComment on above:Performed By: #### HGBHCT #### [facility] [address] [place] [address] Dr. Lucho De LeónHematocrit (Bld) [Volume fraction]56.1 %Critically high42.0-54.0 [address] [facility] HospitalComment on above:Performed By: #### HGBHCT #### [facility] [address] [place] [address] Dr. Lucho De LeónHemoglobin (Bld) [Mass/Vol]17.8 g/fIMycfpo54.0-18.0The [facility] ClinicComment on above:Performed By: #### HGBHCT #### [facility] [address] [place] [address] Dr. Lucho De LeónIG #0.02 10e3/ulNormal0.00-0.03The [facility] ClinicComment on above:Performed By: #### HGBHCT #### [facility] [address] [place] [address] Dr. Lucho Bhatti %0.2 %Normal0.0-0.5The [facility] ClinicComment on above: Performed By: #### HGBHCT #### [facility] [address] [place] [address] Dr. Lucho PaulinoH #1.6 103/ulNormal1.2-3.8The [facility] ClinicComment on above:Performed By: #### HGBHCT #### [facility] [address] [place] [address] Dr. Lucho Geronimomphocytes/100 WBC (Bld)19.3 %Critically low20.5-60.0The [facility] ClinicComment on above:Performed By: #### HGBHCT #### [facility] [address] [place] [address] Dr. Lucho AdamsUAL DIFF REQNONormalThe [facility] ClinicComment on above: Performed By: #### HGBHCT #### [facility] [address] [place] [address] Dr. Lucho Linton (RBC) [Entitic mass]31.0 xdAnxrcx65.9-34.0The [facility] ClinicComment on above:Performed By: #### HGBHCT #### [facility] [address] [place] [address] Dr. Lucho Linton (RBC) [Mass/Vol]31.7 g/mSRikmhe48.9-35.2The [facility] Trail HospitalComment on above:Performed By: #### HGBHCT #### [facility] [address] [place] [address] Dr. Lucho LintonV (RBC) [Entitic vol]97.6 fLCritically high80.0-94.0The [facility] ClinicComment on above:Performed By: #### HGBHCT #### [facility] [address] [place] [address] Dr. Lucho Diaz #0.7 103/ulNormal0.3-0.8The [facility] ClinicComment on above:Performed By: #### HGBHCT #### [facility] [address] [place] [address] Dr. Lucho Fengocytes/100 WBC (Bld)8.1 %Normal1.7-12.0The [facility] Comment on above:Performed By: #### HGBHCT #### [facility] [address] [place] [address] Dr. Lucho Schuster #5.7 103/ulNormal1.4-6.5The [facility] ClinicComment on above:Performed By: #### HGBHCT #### [facility] [address] [place] [address] Dr. Lucho Hennessyutrophils/100 WBC (Bld)70.7 %Jwetbj20.0-75.0The [facility] ClinicComment on above:Performed By: #### HGBHCT #### [facility] [address] [place] [address] Dr. Lucho Maddenlet mean volume (Bld) [Entitic vol]10.6 fLNormal9.5-13.5The [facility] ClinicComment on above:Performed By: #### HGBHCT #### [facility] [address] [place] [address] Dr. Lucho De LeónPLT228 103/soYlyjez075-220Bln [facility] ClinicComment on above: Performed By: #### HGBHCT #### [facility] [address] [place] [address] Dr. Lucho De LeónRBC5.75 106/ulNormal4.70-6.10The [facility] ClinicComment on above:Performed By: #### HGBHCT #### [facility] [address] [place] [address] Dr. Lucho De LeónWBC8.1 103/ulNormal4.0-11.0The [facility] ClinicComment on above: Performed By: #### HGBHCT #### [facility] [address] [place] [address] Dr. Lucoh De LeónPROF CHEM 8 (BAS METB)on 08-01-0711Obmgl gap [Moles/Vol]11.1 mmol/LNormalThe [facility] ClinicComment on above:Performed By: #### BMP #### [facility] [address] [place] [address] Dr. Lucho De LeónCalcium [Mass/Vol]9.3 mg/dLNormal8.5-10.1[facility] Comment on above:Performed By: #### BMP #### [facility] [address] [place] [address] Dr. Lucho De LeónChloride [Moles/Vol]102 mmol/HXwvvph95-355Rap [facility] Comment on above:Performed By: #### BMP #### [facility] [address] [place] [address] Dr. Lucho De LeónCO2 [Moles/Vol]28.3 mmol/BQlloic07.0-32.0The [facility] Comment on above:Performed By: #### BMP #### [facility] [address] [place] [address] Dr. Lucho De LeónCreatinine [Mass/Vol]0.59 mg/dLCritically low0.70-1.30The [facility] ClinicComment on above:Performed By: #### BMP #### [facility] [address] [address] [address] Lucho HerbertGFR-AF BRAZILIAN>60Normal>=60The [facility] ClinicComment on above:Performed By: #### BMP #### [facility] [address] [address] [address] Lucho HerbertGFR-NON AF BRAZILIAN>60Normal>=60The [facility] ClinicComment on above:Performed By: #### BMP #### [facility] [address] [address] [address] Lucho De LeónGlucose [Mass/Vol]171 mg/dLCritically rqbl97-455Ath [facility] Hospitalment on above:Performed By: #### BMP #### [facility] [address] [place] [address] Dr. Lucho De LeónPotassium [Moles/Vol]4.4 mmol/LNormal3.5-5.1The [facility] Comment on above:Performed By: #### BMP #### [facility] [address] [place] [address] Dr. Lucho Teresadium [Moles/Vol]137 mmol/TEiksfd373-122Hhz [facility] Comment on above:Performed By: #### BMP #### [facility] [address] [place] [address] Dr. Lucho De LeónUrea nitrogen [Mass/Vol]12.0 mg/dLNormal7.0-18.0The [facility] Hospitalment on above:Performed By: #### BMP #### [facility] [address] [place] [address] Dr. Lucho De LeónUrea nitrogen/Creatinine [Mass ratio]20.3 mg/mgNormalThe [facility] ClinicComment on above:Performed By: #### BMP #### [facility] [address] [place] [address] Dr. Lucho Ortegaral Surgery Office/Clinic Noteon [id number] Surgery Office/Clinic NoteChief Complaint post operative follow up HPI Staff [...] MANJIT WILKINS, JULIA Mays Only if needed [address] [place] [address]- Additional Instructions: Problem List/Past Medical [...] Brother. Primary malignant neoplasm of female breast: Sister.NormalFisher Putnam Medical CenterComment on above:Result Comment: Electronically Signed By: MANJIT WILKINS, Bernadine Calle\Date and Time Signed: 10/25/22 16:08 ESTPathology Noteon [id number] [id number]#1.00CD:127 [facility] HospitalOperative Reporton [id number] Report [id number]#1.00CD:127[facility] HospitalGLYCOHEMOGLOBIN A1Con [id number] RECOMMENDATIONSEE [facility] Ontario HospitalComment on above:Result Comment: ADA RECOMMENDED LIMIT 4.0 - 6.0 ADA THERAPEUTIC TARGET < 7.0 ACTION SUGGESTED > 7.0Performed By: #### CVDTBH #### [facility] [address] [address] [address] Lucho De LeónGlucose [Mass/Vol]197 mg/dLNoTriHealth Bethesda Butler HospitalComment on above:Performed By: #### CVDTBH #### [facility] [address] [address] [address] Lucho De LeónHbA1c (Bld) [Mass fraction]8.5 %Critically high4.5-6.2The [facility] ClinicComment on above:Performed By: #### CVDTBH #### [facility] [address] [address] [address] Lucho De LeónPROF CHEM 8 (BAS METB)on [id number] gap [Moles/Vol]12.0 mmol/LNormalThe [facility] ClinicComment on above:Performed By: #### BMP #### [facility] [address] [address] [address] Lucho De LeónCalcium [Mass/Vol]9.0 mg/dLNormal8.5-10.1The [facility] Comment on above:Performed By: #### BMP #### [facility] [address] [address] [address] Lucho De LeónChloride [Moles/Vol]100 mmol/FUdcwle86-272Ljr [facility] Comment on above:Performed By: #### BMP #### [facility] [address] [place] [address] Dr. Lucho De LeónCO2 [Moles/Vol]24.6 mmol/YOvygcr07.0-32.0The [facility] Comment on above:Performed By: #### BMP #### [facility] [address] [place] [address] Dr. Lucho De LeónCreatinine [Mass/Vol]0.61 mg/dLCritically low0.70-1.30The [facility] ClinicComment on above:Performed By: #### BMP #### [facility] [address] [place] [address] Dr. Lucho HerbertGFR-AF BRAZILIAN>60Normal>=60The [facility] ClinicComment on above:Performed By: #### BMP #### [facility] [address] [place] [address] Dr. Lucho HerbertGFR-NON AF BRAZILIAN>60Normal>=60The [facility] ClinicComment on above:Performed By: #### BMP #### [facility] [address] [place] [address] Dr. Lucho De LeónGlucose [Mass/Vol]186 mg/dLCritically wafi73-574Qfg [facility] ClinicComment on above:Performed By: #### BMP #### [facility] [address] [place] [address] Dr. Lucho De LeónPotassium [Moles/Vol]4.6 mmol/LNormal3.5-5.1The [facility] Comment on above:Performed By: #### BMP #### [facility] [address] [place] [address] Dr. Lucho De LeónSodium [Moles/Vol]132 mmol/LCritically wxx433-622Yjk [facility] ClinicComment on above:Performed By: #### BMP #### [facility] [address] [place] [address] Dr. Lucho De LeónUrea nitrogen [Mass/Vol]12.0 mg/dLNormal7.0-18.0The [facility] ClinicComment on above:Performed By: #### BMP #### [facility] [address] [address] [address] Lucho De LeónUrea nitrogen/Creatinine [Mass ratio]19.7 mg/mgNoTriHealth Bethesda Butler HospitalComment on above:Performed By: #### BMP #### [facility] [address] [address] [address] Lucho De LeónXR CSPINE 2_3 VIEWSon [id number] CSPINE 2_3 VIEWSEXAMINATION: XR CSPINE 2_3 VIEWS HISTORY: Neck pain [...] Electronically authenticated by: BHAVANA MOREAU Date: 2022-09-22 12:09[facility] HospitalConsent for Procedure/Surgeryon [id number] for Procedure/[id number]#1.00CD:127NoUniversity Hospitals Geauga Medical CenterAmbulatory Visit Summaryon 14-55-7013Efxpwfudhn Visit Summary DARIN THACKER :1950 Visit Date:08/30/2022 [...] 1 Tablets By Mouth Every day Contact prescribingphysician if questions or concerns Unchanged ferrous sulfate [...] Cap) as directed Contact prescribing physician if questionsor concerns Unchanged metformin (metformin 1000 mg oral [...] Seasonal allergies Tobacco user Vitamin B12 deficiency NormalChildren'S Hospital For RehabilitationPhysician Referralon 08-04-2022 Physician [id number]#1.00CD:127Normal [facility] For RehabilitationCBC AUTO DIFFon [id number] #0.0 103/ulNormal 0.0-0.1[facility] Medical CenterComment on above:Performed By: #### CVDTBH #### [facility] [address] [address] [address] Lucho Constantinosophils/100 WBC (Bld)0.4 %Normal0.2-2.0[facility] Comment on above:Performed By: #### CVDTBH #### [facility] [address] [address] [address] Lucho Hernandez #0.1 103/ulNormal0.0-0.7The [facility] ClinicComment on above: Performed By: #### CVDTBH #### [facility] [address] [place] [address] Dr. Lucho Herbertosinophils/100 WBC (Bld)1.6 %Normal0.9-7.0The [facility] Comment on above:Performed By: #### CVDTBH #### [facility] [address] [place] [address] Dr. Lucho Herbertrythrocyte distribution width (RBC) [Ratio]16.1 %Critically high 11.0-15.0The [facility] ClinicComment on above:Performed By: #### CVDTBH #### [facility] [address] [place] [address] Dr. Lucho De LeónHematocrit (Bld) [Volume fraction]51.3 %Ojeosg94.0-54.0The [facility] ClinicComment on above:Performed By: #### CVDTBH #### [facility] [address] [place] [address] Dr. Lucho De LeónHemoglobin (Bld) [Mass/Vol]16.9 g/wHTzujcp64.0-18.0The [facility] ClinicComment on above:Performed By: #### CVDTBH #### [facility] [address] [place] [address] Dr. Lucho Bhatti #0.02 10e3/ulNormal0.00-0.03The [facility] ClinicComment on above:Performed By: #### CVDTBH #### [facility] [address] [place] [address] Dr. Lucho Bhatti %0.3 %Normal0.0-0.5The [facility] ClinicComment on above: Performed By: #### CVDTBH #### [facility] [address] [place] [address] Dr. Lucho Fxo #1.6 103/ulNormal1.2-3.8The [facility] ClinicComment on above:Performed By: #### CVDTBH #### [facility] [address] [place] [address] Dr. Lucho Paulinohocytes/100 WBC (Bld)21.6 %Dimnek66.5-60.0The [facility] ClinicComment on above:Performed By: #### CVDTBH #### [facility] [address] [place] [address] Dr. Yilan ChangMANUAL DIFF REQNONormalThe [facility] ClinicComment on above: Performed By: #### CVDTBH #### [facility] [address] [place] [address] Dr. Lucho Linton (RBC) [Entitic mass]29.3 qbAmxobs25.9-34.0The [facility] ClinicComment on above:Performed By: #### CVDTBH #### [facility] [address] [place] [address] Dr. Lucho Linton (RBC) [Mass/Vol]32.9 g/kIVpvkqs08.9-35.2The [facility] ClinicComment on above:Performed By: #### CVDTBH #### [facility] [address] [place] [address] Dr. Lucho Linton (RBC) [Entitic vol]89.1 rOLacpzm85.0-94.0The [facility] ClinicComment on above:Performed By: #### CVDTBH #### [facility] [address] [place] [address] Dr. Lucho Diaz #0.6 103/ulNormal0.3-0.8The [facility] ClinicComment on above:Performed By: #### CVDTBH #### [facility] [address] [place] [address] Dr. Lucho Fengocytes/100 WBC (Bld)8.6 %Normal1.7-12.0The [facility] Comment on above:Performed By: #### CVDTBH #### [facility] [address] [place] [address] Dr. Lucho Schuster #5.0 103/ulNormal1.4-6.5The [facility] ClinicComment on above:Performed By: #### CVDTBH #### [facility] [address] [place] [address] Dr. Lucho Hennessyutrophils/100 WBC (Bld)67.5 %Jmguyj41.0-75.0The [facility] ClinicComment on above:Performed By: #### CVDTBH #### [facility] [address] [address] [address] Lucho De LeónPlatelet mean volume (Bld) [Entitic vol]10.3 fLNormal9.5-13.5The [facility] on above:Performed By: #### CVDTBH #### [facility] [address] [address] [address] Lucho De LeónPLT218 103/ogZivcqp567-187Scg [facility] ClinicCominsight surgical hospital on above: Performed By: #### CVDTBH #### [facility] [address] [place] [address] Dr. Lucho De LeónRBC5.76 106/ulNormal4.70-6.10The [facility] ClinicCominsight surgical hospital on above:Performed By: #### CVDTBH #### [facility] [address] [place] [address] Dr. Lucho De LeónWBC7.5 103/ulNormal4.0-11.0The [facility] on above: Performed By: #### CVDTBH #### [facility] [address] [place] [address] Dr. Lucho De LeónGLYCOHEMOGLOBIN A1Con [id number] RECOMMENDATIONSEE BELOWNoCorey Hospital on above:Result Comment: ADA RECOMMENDED LIMIT 4.0 - 6.0 ADA THERAPEUTIC TARGET < 7.0 ACTION SUGGESTED > 7.0Performed By: #### A1C #### [facility] [address] [place] [address] Dr. Lucho De LeónGlucose [Mass/Vol]177 mg/dLNormalThProvidence Hospital on above:Performed By: #### A1C #### [facility] [address] [place] [address] Dr. Lucho De LeónHbA1c (Bld) [Mass fraction]7.8 %Critically high4.5-6.2The [facility] on above:Performed By: #### A1C #### [facility] [address] [place] [address] Dr. Lucho Sams 19-71-7378Ehld [Mass/Vol]50.0 ug/dLCritically low 65.0-175.0The [facility] ClinicComment on above:Performed By: #### CBC #### [facility] [address] [place] [address] Dr. Lucho Valentino 14(COMP METB)on 08-34-2322Jcugtaj [Mass/Vol]3.8 g/dLNormal 3.4-5.0The [facility] ClinicComment on above:Performed By: #### HGBHCT #### [facility] [address] [place] [address] Dr. Lucho De LeónAlbumin/Globulin [Mass ratio]0.9 {ratio}NormalThe [facility] ClinicComment on above:Performed By: #### HGBHCT #### [facility] [address] [place] [address] Dr. Lucho LeeP [Catalytic activity/Vol]95 U/UQlnemr01-245Nrq [facility] ClinicComment on above:Performed By: #### HGBHCT #### [facility] [address] [place] [address] Dr. Lucho LeeT [Catalytic activity/Vol]19 U/TStdtok00-66Bzi [facility] ClinicComment on above:Performed By: #### HGBHCT #### [facility] [address] [place] [address] Dr. Lucho Parks gap [Moles/Vol]12.2 mmol/LNormalThe [facility] Comment on above:Performed By: #### HGBHCT #### [facility] [address] [place] [address] Dr. Lucho De LeónAST [Catalytic activity/Vol]11 U/LCritically lvq16-60Exr [facility] ClinicComment on above:Performed By: #### HGBHCT #### [facility] [address] [place] [address] Dr. Lucho De LeónBilirubin [Mass/Vol]0.3 mg/dLNormal0.2-1.0The [facility] [facility] Comment on above:Performed By: #### HGBHCT #### [facility] [address] [address] [address] Lucho De LeónCalcium [Mass/Vol]9.6 mg/dLNormal8.5-10.1The [facility] Comment on above:Performed By: #### HGBHCT #### [facility] [address] [place] [address] Dr. Lucho De LeónChloride [Moles/Vol]103 mmol/UEswlyb80-436Lgp [facility] Comment on above:Performed By: #### HGBHCT #### [facility] [address] [place] [address] Dr. Lucho De LeónCO2 [Moles/Vol]29.4 mmol/SLsrdgf26.0-32.0[facility] Comment on above:Performed By: #### HGBHCT #### [facility] [address] [place] [address] Dr. Lucho De LeónCreatinine [Mass/Vol]0.80 mg/dLNormal0.70-1.30The [facility] ClinicComment on above:Performed By: #### HGBHCT #### [facility] [address] [place] [address] Dr. Lucho HerbertGFR-AF BRAZILIAN>60Normal>=60The [facility] ClinicComment on above:Performed By: #### HGBHCT #### [facility] [address] [place] [address] Dr. Lucho HerbertGFR-NON AF BRAZILIAN>60Normal>=60The [facility] ClinicComment on above:Performed By: #### HGBHCT #### [facility] [address] [place] [address] Dr. Lucho De LeónGlobulin (S) [Mass/Vol]4.0 g/dLNormalThe [facility] ClinicComment on above:Performed By: #### HGBHCT #### [facility] [address] [place] [address] Dr. Lucho De LeónGlucose [Mass/Vol]202 mg/dLCritically islv85-284Zfb [facility] ClinicComment on above:Performed By: #### HGBHCT #### [facility] [address] [address] [address] Lucho De LeónPotassium [Moles/Vol]4.6 mmol/LNormal3.5-5.1[facility] Comment on above:Performed By: #### HGBHCT #### [facility] [address] [place] [address] Dr. Lucho De LeónProtein [Mass/Vol]7.8 g/dLNormal6.4-8.2The [facility] Comment on above:Performed By: #### HGBHCT #### [facility] [address] [address] [address] Lucho De LeónSodium [Moles/Vol]140 mmol/IBchmqa111-313Klw [facility] Comment on above:Performed By: #### HGBHCT #### [facility] [address] [place] [address] Dr. Lucho De LeónUrea nitrogen [Mass/Vol]15.0 mg/dLNormal7.0-18.0[facility] CenterComment on above:Performed By: #### HGBHCT #### [facility] [address] [place] [address] Dr. Luhco March nitrogen/Creatinine [Mass ratio]18.8 mg/mgNormalThe [facility] ClinicComment on above:Performed By: #### HGBHCT #### [facility] [address] [place] [address] Dr. 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 Apical inferior. [place]. SIZE: Medium (3-4 segments). SEVERITY: Mild. TYPE: [...] by: Bindu Conrad MD on 04/28/2022 at 08:01NormalThKettering Health Greene MemorialCBC AUTO DIFFon [id number] #0.0 103/ulNormal0.0-0.1[facility] CenterComment on above:Performed By: #### A1C #### [facility] [address] [place] [address] Dr. Lucho De LeónBasophils/100 WBC (Bld)0.5 %Normal0.2-2.0[facility] Comment on above:Performed By: #### A1C #### [facility] [address] [place] [address] Dr. Lucho Hernandez #0.1 103/ulNormal0.0-0.7ThKettering Health Greene MemorialComment on above: Performed By: #### A1C #### [facility] [address] [place] [address] Dr. Lucho Herbertosinophils/100 WBC (Bld)2.0 %Normal0.9-7.0[facility] Comment on above:Performed By: #### A1C #### [facility] [address] [place] [address] Dr. Yilan ChangErythrocyte distribution width (RBC) [Ratio]15.0 %Idcrui15.0-15.0 [facility] ClinicComment on above:Performed By: #### A1C #### [facility] [address] [place] [address] Dr. Lucho De LeónHematocrit (Bld) [Volume fraction]39.1 %Critically low42.0-54.0 [facility] ClinicComment on above:Performed By: #### A1C #### [facility] [address] [place] [address] Dr. Lucho De LeónHemoglobin (Bld) [Mass/Vol]12.5 g/dLCritically low14.0-18.0[facility] ClinicComment on above:Performed By: #### A1C #### [facility] [address] [place] [address] Dr. Lucho Bhatti #0.02 10e3/ulNormal0.00-0.03The [facility] ClinicComment on above:Performed By: #### A1C #### [facility] [address] [place] [address] Dr. Lucho Bhatti %0.4 %Normal0.0-0.5The [facility] ClinicComment on above: Performed By: #### A1C #### [facility] [address] [place] [address] Dr. Lucho Fox #1.7 103/ulNormal1.2-3.8The [facility] ClinicComment on above:Performed By: #### A1C #### [facility] [address] [place] [address] Dr. Lucho Paulinohocytes/100 WBC (Bld)30.7 %Kuooeh28.5-60.0[facility] ClinicComment on above:Performed By: #### A1C #### [facility] [address] [place] [address] Dr. Lucho AdamsUAL DIFF REQNONormalThe [facility] ClinicComment on above: Performed By: #### A1C #### [facility] [address] [place] [address] Dr. Lucho Soto (RBC) [Entitic mass]29.7 swSvkopd07.9-34.0[facility] ClinicComment on above:Performed By: #### A1C #### [facility] [address] [place] [address] Dr. Lucho Linton (RBC) [Mass/Vol]32.0 g/dMFikxjt53.9-35.2The [facility] ClinicComment on above:Performed By: #### A1C #### [facility] [address] [address] [address] Lucho Linton (RBC) [Entitic vol]92.9 yUNnxuwv27.0-94.0The [facility] ClinicComment on above:Performed By: #### A1C #### [facility] [address] [place] [address] Dr. Lucho Diaz #0.5 103/ulNormal0.3-0.8The [facility] ClinicComment on above:Performed By: #### A1C #### [facility] [address] [place] [address] Dr. Lucho Fengocytes/100 WBC (Bld)9.6 %Normal1.7-12.0[facility] Comment on above:Performed By: #### A1C #### [facility] [address] [place] [address] Dr. Lucho HennessyUT #3.2 103/ulNormal1.4-6.5The [facility] ClinicComment on above:Performed By: #### A1C #### [facility] [address] [place] [address] Dr. Lucho Hennessyutrophils/100 WBC (Bld)56.8 %Xhioao44.0-75.0[facility] ClinicComment on above:Performed By: #### A1C #### [facility] [address] [place] [address] Dr. Lucho Maddenlet mean volume (Bld) [Entitic vol]9.2 fLCritically low 9.5-13.5The [facility] ClinicComment on above:Performed By: #### A1C #### [facility] [address] [address] [address] Lucho De LeónPLT317 103/pqHxbmsv645-771Bgv [facility] ClinicComment on above: Performed By: #### A1C #### [facility] [address] [place] [address] Dr. Lucho De LeónRBC4.21 106/ulCritically low4.70-6.10The [facility] ClinicComment on above:Performed By: #### A1C #### [facility] [address] [address] [address] Lucho De LeónWBC5.6 103/ulNormal4.0-11.0The [facility] ClinicComment on above: Performed By: #### A1C #### [facility] [address] [place] [address] Dr. Yepez ChangECHOCARDIO M/2D COMPLETEon [id number] M/2D COMPLETE Patient: DARIN THACKER Exam Date: 04/14/2022 : 1950 Gender:M Ordering : OLI TONYA [facility] Admission #: [id number] Family : Order #: [id number] CLICK HERE TO VIEW EXAM ECHOCARDIOGRAM REPORT [...] by: Travon Galindo M.D. on 04/14/2022 at 17:53[facility] HospitalPR LEUKOREDUCEDon [id number] and Rh group Nom (Bld)Cross Match Result Compatible Unit Blood Type O Pos Unit Number [id number] Status Information Transfused Product ID Red Blood Cells Product Code [id number] Cross Match Result Compatible Unit Blood Type O Pos Unit Number [id number] Status Information Transfused Product ID Red Blood Cells Product Code [id number] Valley Health System [facility] Valley HospitalComment on above:Performed By: #### PRBC #### [facility] [address] [place] [address] Dr. Lucho Akers LEUKOREDUCEDCross Match Result Compatible Unit Blood Type O Pos Unit Number [id number] Status Information Transfused Product ID Red Blood Cells Product Code [id number] Valley Health System [facility] Valley HospitalComment on above:Performed By: #### PRBC #### [facility] [address] [place] [address] Dr. Lucho Akers LEUKOREDUCEDCross Match Result Compatible Unit Blood Type O Pos Unit Number [id number] Status Information Transfused Product ID Red Blood Cells Product Code [id number] Valley Health System [facility] HospitalCominsight surgical hospital on above:Performed By: #### PRBC #### [facility] [address] [place] [address] Dr. Lucho Srivastava AUTO DIFFon [id number] #0.0 103/ulNormal0.0-0.1The [facility] HospitalComment on above:Performed By: #### CBC #### [facility] [address] [address] [address] Lucho De LeónBasophils/100 WBC (Bld)0.4 %Normal0.2-2.0The [facility] Comment on above:Performed By: #### CBC #### [facility] [address] [place] [address] Dr. Lucho Hernandez #0.1 103/ulNormal0.0-0.7The [facility] ClinicComment on above: Performed By: #### CBC #### [facility] [address] [place] [address] Dr. Lucho Herbertosinophils/100 WBC (Bld)1.4 %Normal0.9-7.0The [facility] Comment on above:Performed By: #### CBC #### [facility] [address] [place] [address] Dr. Lucho Herbertrythrocyte distribution width (RBC) [Ratio]16.3 %Critically high 11.0-15.0[facility] ClinicComment on above:Performed By: #### CBC #### [facility] [address] [place] [address] Dr. Lucho De LeónHematocrit (Bld) [Volume fraction]36.2 %Critically low42.0-54.0 [facility] ClinicComment on above:Performed By: #### CBC #### [facility] [address] [place] [address] Dr. Lucho De LeónHemoglobin (Bld) [Mass/Vol]11.3 g/dLCritically low14.0-18.0The [facility] ClinicComment on above:Performed By: #### CBC #### [facility] [address] [place] [address] Dr. Lucho Bhatti #0.04 10e3/ulCritically high0.00-0.03The [facility] Comment on above:Performed By: #### CBC #### [facility] [address] [place] [address] Dr. Lucho Bhatti %0.5 %Normal0.0-0.5The [facility] ClinicComment on above: Performed By: #### CBC #### [facility] [address] [place] [address] Dr. Lucho Fox #2.0 103/ulNormal1.2-3.8The [facility] ClinicComment on above:Performed By: #### CBC #### [facility] [address] [place] [address] Dr. Lucho Paulinohocytes/100 WBC (Bld)26.7 %Naekhk21.5-60.0The [facility] ClinicComment on above:Performed By: #### CBC #### [facility] [address] [place] [address] Dr. Lucho Calero DIFF REQNONormalThe [facility] ClinicComment on above: Performed By: #### CBC #### [facility] [address] [place] [address] Dr. Lucho Soto (RBC) [Entitic mass]29.7 gaInihdy93.9-34.0The [facility] ClinicComment on above:Performed By: #### CBC #### [facility] [address] [place] [address] Dr. Lucho Linton (RBC) [Mass/Vol]31.2 g/eEZkskfb28.9-35.2The [facility] ClinicComment on above:Performed By: #### CBC #### [facility] [address] [place] [address] Dr. Lucho Viveros (RBC) [Entitic vol]95.3 fLCritically high80.0-94.0The [facility] ClinicComment on above:Performed By: #### CBC #### [facility] [address] [place] [address] Dr. Lucho Diaz #0.9 103/ulCritically high0.3-0.8The [facility] Comment on above:Performed By: #### CBC #### [facility] [address] [place] [address] Dr. Lucho Fengocytes/100 WBC (Bld)11.8 %Normal1.7-12.0The [facility] Comment on above:Performed By: #### CBC #### [facility] [address] [place] [address] Dr. Lucho Schuster #4.3 103/ulNormal1.4-6.5The [facility] ClinicComment on above:Performed By: #### CBC #### [facility] [address] [place] [address] Dr. Lucho Hennessyutrophils/100 WBC (Bld)59.2 %Ejuymu97.0-75.0The [facility] ClinicComment on above:Performed By: #### CBC #### [facility] [address] [place] [address] Dr. Lucho Clark mean volume (Bld) [Entitic vol]9.1 fLCritically low 9.5-13.5The [facility] ClinicComment on above:Performed By: #### CBC #### [facility] [address] [place] [address] Dr. Lucho ReyesT371 103/abVrcpqc131-043Zof [facility] ClinicComment on above: Performed By: #### CBC #### [facility] [address] [place] [address] Dr. Lucho De LeónRBC3.80 106/ulCritically low4.70-6.10The [facility] ClinicComment on above:Performed By: #### CBC #### [facility] [address] [place] [address] Dr. Lucho De LeónWBC7.3 103/ulNormal4.0-11.0The [facility] ClinicComment on above: Performed By: #### CBC #### [facility] [address] [place] [address] Dr. Lucho Valentino CHEM 8 (BAS METB)on 02-18-7327Vebtb gap [Moles/Vol]12.4 mmol/LNormalThe [facility] ClinicComment on above:Performed By: #### A1C #### [facility] [address] [place] [address] Dr. Lucho De LeónCalcium [Mass/Vol]9.3 mg/dLNormal8.5-10.1The [facility] Comment on above:Performed By: #### A1C #### [facility] [address] [address] [address] Lucho De LeónChloride [Moles/Vol]104 mmol/CAisugb11-676Hgk [facility] Comment on above:Performed By: #### A1C #### [facility] [address] [address] [address] Lucho De LeónCO2 [Moles/Vol]24.6 mmol/GYukhjc79.0-32.0The [facility] Comment on above:Performed By: #### A1C #### [facility] [address] [address] [address] Lucho De LeónCreatinine [Mass/Vol]0.67 mg/dLCritically low0.70-1.30The [facility] ClinicComment on above:Performed By: #### A1C #### [facility] [address] [place] [address] Dr. Yepez ChangEGFR-AF BRAZILIAN>60Normal>=60The [facility] ClinicComment on above:Performed By: #### A1C #### [facility] [address] [address] [address] Lucho HerbertGFR-NON AF BRAZILIAN>60Normal>=60The [facility] ClinicComment on above:Performed By: #### A1C #### [facility] [address] [address] [address] Lucho De LeónGlucose [Mass/Vol]144 mg/dLCritically czcy67-767Eyd [facility] ClinicComment on above:Performed By: #### A1C #### [facility] [address] [address] [address] Lucho De LeónPotassium [Moles/Vol]5.0 mmol/LNormal3.5-5.1The [facility] Comment on above:Performed By: #### A1C #### [facility] [address] [address] [address] Lucho De LeónSodium [Moles/Vol]136 mmol/NIyihwg814-865Rcs [facility] Comment on above:Performed By: #### A1C #### [facility] [address] [place] [address] Dr. Lucho March nitrogen [Mass/Vol]12.0 mg/dLNormal7.0-18.0[facility] CenterComment on above:Performed By: #### A1C #### [facility] [address] [place] [address] Dr. Lucho March nitrogen/Creatinine [Mass ratio]17.9 mg/mgNormalThe [facility] ClinicComment on above:Performed By: #### A1C #### [facility] [address] [place] [address] Dr. Lucho Srivastava AUTO DIFFon [id number] #0.0 103/ulNormal0.0-0.1The [facility] ClinicComment on above:Performed By: #### CBC #### [facility] [address] [place] [address] Dr. Lucho De LeónBasophils/100 WBC (Bld)0.2 %Normal0.2-2.0[facility] Comment on above:Performed By: #### CBC #### [facility] [address] [place] [address] Dr. Lucho Hernandez #0.1 103/ulNormal0.0-0.7The [facility] ClinicComment on above: Performed By: #### CBC #### [facility] [address] [place] [address] Dr. Lucho Herbertosinophils/100 WBC (Bld)0.9 %Normal0.9-7.0The [facility] Comment on above:Performed By: #### CBC #### [facility] [address] [place] [address] Dr. Lucho Herbertrythrocyte distribution width (RBC) [Ratio]16.9 %Critically high 11.0-15.0The [facility] ClinicComment on above:Performed By: #### CBC #### [facility] [address] [place] [address] Dr. Lucho De LeónHematocrit (Bld) [Volume fraction]29.9 %Critically low42.0-54.0 The [facility] ClinicComment on above:Performed By: #### CBC #### [facility] [address] [place] [address] Dr. Lucho De LeónHemoglobin (Bld) [Mass/Vol]10.1 g/dLCritically low14.0-18.0The [facility] ClinicComment on above:Performed By: #### CBC #### [facility] [address] [address] [address] Lucho De LeónIG #0.10 10e3/ulCritically high0.00-0.03The [facility] Comment on above:Performed By: #### CBC #### [facility] [address] [place] [address] Dr. Lucho De LeónIG %0.9 %Critically high0.0-0.5The [facility] ClinicComment on above:Performed By: #### CBC #### [facility] [address] [place] [address] Dr. Lucho Fox #2.0 103/ulNormal1.2-3.8The [facility] ClinicComment on above:Performed By: #### CBC #### [facility] [address] [place] [address] Dr. Lucho Geronimomphocytes/100 WBC (Bld)18.3 %Critically low20.5-60.0The [facility] ClinicComment on above:Performed By: #### CBC #### [facility] [address] [place] [address] Dr. Lucho De LeónMANUAL DIFF REQNONormalThe [facility] ClinicComment on above: Performed By: #### CBC #### [facility] [address] [place] [address] Dr. Lucho Soto (RBC) [Entitic mass]30.6 xlVwscqm77.9-34.0The [facility] ClinicComment on above:Performed By: #### CBC #### [facility] [address] [address] [address] Lucho LintonHC (RBC) [Mass/Vol]33.8 g/kFYtrxkm71.9-35.2The [facility] ClinicComment on above:Performed By: #### CBC #### [facility] [address] [place] [address] Dr. Lucho LintonV (RBC) [Entitic vol]90.6 kAByajve19.0-94.0The [facility] ClinicComment on above:Performed By: #### CBC #### [facility] [address] [place] [address] Dr. Lucho Diaz #0.9 103/ulCritically high0.3-0.8The [facility] Comment on above:Performed By: #### CBC #### [facility] [address] [place] [address] Dr. Lucho Fengocytes/100 WBC (Bld)8.2 %Normal1.7-12.0[facility] Comment on above:Performed By: #### CBC #### [facility] [address] [place] [address] Dr. Lucho Schuster #8.0 103/ulCritically high1.4-6.5ThKettering Health [facility] Memorial Comment on above:Performed By: #### CBC #### [facility] [address] [place] [address] Dr. Lucho Hennessyutrophils/100 WBC (Bld)71.5 %Knwsci59.0-75.0The [facility] ClinicComment on above:Performed By: #### CBC #### [facility] [address] [place] [address] Dr. Lucho Maddenlet mean volume (Bld) [Entitic vol]9.7 fLNormal9.5-13.5The [facility] ClinicComment on above:Performed By: #### CBC #### [facility] [address] [place] [address] Dr. Lucho De LeónPLT195 103/kaBnngqo305-421Lou [facility] ClinicComment on above: Performed By: #### CBC #### [facility] [address] [address] [address] Lucho De LeónRBC3.30 106/ulCritically low4.70-6.10The [facility] ClinicComment on above:Performed By: #### CBC #### [facility] [address] [address] [address] Lucho De LeónWBC11.1 103/ulCritically high4.0-11.0The [facility] ClinicComment on above:Performed By: #### CBC #### [facility] [address] [place] [address] Dr. Lucho De LeónPROF CHEM 8 (BAS METB)on 38-44-9428Bunil gap [Moles/Vol]11.8 mmol/LNormalThe [facility] ClinicComment on above:Performed By: #### CBC #### [facility] [address] [place] [address] Dr. Lucho De LeónCalcium [Mass/Vol]8.5 mg/dLNormal8.5-10.1The [facility] Comment on above:Performed By: #### CBC #### [facility] [address] [place] [address] Dr. Lucho De LeónChloride [Moles/Vol]103 mmol/IKsenma60-805Lsp [facility] Comment on above:Performed By: #### CBC #### [facility] [address] [place] [address] Dr. Lucho De LeónCO2 [Moles/Vol]25.8 mmol/ZPtqsiq84.0-32.0The [facility] Comment on above:Performed By: #### CBC #### [facility] [address] [place] [address] Dr. Lucho De LeónCreatinine [Mass/Vol]0.56 mg/dLCritically low0.70-1.30The [facility] ClinicComment on above:Performed By: #### CBC #### [facility] [address] [place] [address] Dr. Yepez ChangEGFR-AF BRAZILIAN>60Normal>=60The [facility] ClinicComment on above:Performed By: #### CBC #### [facility] [address] [address] [address] Lucho HerbertGFR-NON AF BRAZILIAN>60Normal>=60The [facility] Hospitalment on above:Performed By: #### CBC #### [facility] [address] [address] [address] Lucho De LeónGlucose [Mass/Vol]166 mg/dLCritically pjaa54-759Jhn [facility] ClinicComment on above:Performed By: #### CBC #### [facility] [address] [address] [address] Lucho De LeónPotassium [Moles/Vol]3.6 mmol/LNormal3.5-5.1[facility] Comment on above:Performed By: #### CBC #### [facility] [address] [address] [address] Lucho De LeónSodium [Moles/Vol]137 mmol/MImtetr003-952Njn [facility] Comment on above:Performed By: #### CBC #### [facility] [address] [address] [address] Lucho De LeónUrea nitrogen [Mass/Vol]6.0 mg/dLCritically low7.0-18.0The [facility] ClinicComment on above:Performed By: #### CBC #### [facility] [address] [address] [address] Lucho De LeónUrea nitrogen/Creatinine [Mass ratio]10.7 mg/mgNormalThe [facility] ClinicComment on above:Performed By: #### CBC #### [facility] [address] [place] [address] Dr. Lucho MetcalfC AUTO DIFFon [id number] #0.0 103/ulNormal0.0-0.1The [facility] ClinicCom[facility] on above:Performed By: #### A1C #### [facility] [address] [place] [address] Dr. Lcuho De LeónBasophils/100 WBC (Bld)0.3 %Normal0.2-2.0The [facility] Comment on above:Performed By: #### A1C #### [facility] [address] [address] [address] Lucho Hernandez #0.1 103/ulNormal0.0-0.7The [facility] ClinicComment on above: Performed By: #### A1C #### [facility] [address] [place] [address] Dr. Lucho Herbertosinophils/100 WBC (Bld)0.8 %Critically low0.9-7.0The [facility] ClinicComment on above:Performed By: #### A1C #### [facility] [address] [place] [address] Dr. Lucho Herbertrythrocyte distribution width (RBC) [Ratio]16.9 %Critically high 11.0-15.0The [facility] ClinicComment on above:Performed By: #### A1C #### [facility] [address] [place] [address] Dr. Lucho De LeónHematocrit (Bld) [Volume fraction]23.0 %Critically low42.0-54.0 The [facility] ClinicComment on above:Performed By: #### A1C #### [facility] [address] [place] [address] Dr. Lucho De LeónHemoglobin (Bld) [Mass/Vol]7.6 g/dLCritically low14.0-18.0The [facility] ClinicComment on above:Performed By: #### A1C #### [facility] [address] [place] [address] Dr. Lucho Bhatti #0.10 10e3/ulCritically high0.00-0.03The [facility] Comment on above:Performed By: #### A1C #### [facility] [address] [place] [address] Dr. Lucho Bhatti %1.3 %Critically high0.0-0.5The [facility] ClinicComment on above:Performed By: #### A1C #### [facility] [address] [place] [address] Dr. Lucho Paulino #2.4 103/ulNormal1.2-3.8The [facility] ClinicComment on above:Performed By: #### A1C #### [facility] [address] [address] [address] Lucho Geronimomphocytes/100 WBC (Bld)32.1 %Fejmjy78.5-60.0The [facility] ClinicComment on above:Performed By: #### A1C #### [facility] [address] [place] [address] Dr. Lucho Calero DIFF REQNONormalThe [facility] ClinicComment on above: Performed By: #### A1C #### [facility] [address] [place] [address] Dr. Lucho Linton (RBC) [Entitic mass]30.9 szCqaphj50.9-34.0The [facility] ClinicComment on above:Performed By: #### A1C #### [facility] [address] [place] [address] Dr. Lucho Linton (RBC) [Mass/Vol]33.0 g/aIVwljae92.9-35.2The [facility] ClinicComment on above:Performed By: #### A1C #### [facility] [address] [place] [address] Dr. Lucho Linton (RBC) [Entitic vol]93.5 xRAoznoz25.0-94.0The [facility] ClinicComment on above:Performed By: #### A1C #### [facility] [address] [place] [address] Dr. Lucho Diaz #0.8 103/ulNormal0.3-0.8The [facility] ClinicComment on above:Performed By: #### A1C #### [facility] [address] [place] [address] Dr. Lucho Fengocytes/100 WBC (Bld)11.3 %Normal1.7-12.0The [facility] Comment on above:Performed By: #### A1C #### [facility] [address] [place] [address] Dr. Lucho Schuster #4.0 103/ulNormal1.4-6.5The [facility] ClinicComment on above:Performed By: #### A1C #### [facility] [address] [place] [address] Dr. Lucho De LeónNeutrophils/100 WBC (Bld)54.2 %Czscag58.0-75.0The [facility] ClinicComment on above:Performed By: #### A1C #### [facility] [address] [place] [address] Dr. Lucho De LeónPlatelet mean volume (Bld) [Entitic vol]9.7 fLNormal9.5-13.5The [facility] ClinicComment on above:Performed By: #### A1C #### [facility] [address] [place] [address] Dr. Lucho De LeónPLT155 103/peZoqomb591-519Loi [facility] ClinicComment on above: Performed By: #### A1C #### [facility] [address] [place] [address] Dr. Lucho De LeónRBC2.46 106/ulCritically low4.70-6.10The [facility] ClinicComment on above:Performed By: #### A1C #### [facility] [address] [place] [address] Dr. Lucho De LeónWBC7.4 103/ulNormal4.0-11.0The [facility] ClinicComment on above: Performed By: #### A1C #### [facility] [address] [place] [address] Dr. Lucho De LeónHEMOGLOBIN AND HEMATOCRITon 74-74-5458Kfdgabcezz (Bld) [Volume fraction]27.6 %Critically low42.0-54.0The [facility] ClinicComment on above: Performed By: #### A1C #### [facility] [address] [place] [address] Dr. Lucho De LeónHemoglobin (Bld) [Mass/Vol]9.0 g/dLCritically low14.0-18.0The [facility] ClinicComment on above:Performed By: #### A1C #### [facility] [address] [place], [place] [id number] Dr. Lucho De LeónPOINT OF CARE GLUCOSEon [id number] [Mass/Vol]135 mg/dL Critically bhhl19-348Lbp [facility] ClinicComment on above:Performed By: #### MALBR #### [facility] [address] [address] [address] Lucho De LeónGlucose [Mass/Vol]159 mg/dLCritically ascf98-125Cju [facility] ClinicComment on above:Performed By: #### MALBR #### [facility] [address] [place] [address] Dr. Lucho De LeónGlucose [Mass/Vol]225 mg/dLCritically jpiq94-724Hkg [facility] ClinicComment on above:Performed By: #### CVDTBH #### [facility] [address] [place] [address] Dr. Lucho De LeónGlucose [Mass/Vol]181 mg/dLCritically htrh57-003Bcv [facility] ClinicComment on above:Performed By: #### POCGLUC #### [facility] [address] [place] [address] Dr. Lucho De LeónPROF CHEM 8 (BAS METB)on 08-12-3707Btuvn gap [Moles/Vol]9.5 mmol/LNormalLakehealth Beachwood Medical CenterComment on above:Performed By: #### A1C #### [facility] [address] [place] [address] Dr. Lucho De LeónCalcium [Mass/Vol]7.7 mg/dLCritically low8.5-10.1The [facility] ClinicComment on above:Performed By: #### A1C #### [facility] [address] [place] [address] Dr. Lucho De LeónChloride [Moles/Vol]107 mmol/CFhxejj40-800Nse [facility] Comment on above:Performed By: #### A1C #### [facility] [address] [place] [address] Dr. Lucho De LeónCO2 [Moles/Vol]23.7 mmol/XMjapzc85.0-32.0The [facility] Comment on above:Performed By: #### A1C #### [facility] [address] [address] [address] Lucho De LeónCreatinine [Mass/Vol]0.58 mg/dLCritically low0.70-1.30The [facility] ClinicComment on above:Performed By: #### A1C #### [facility] [address] [address] [address] Yepez ChangEGFR-AF BRAZILIAN>60Normal>=60The [facility] ClinicComment on above:Performed By: #### A1C #### [facility] [address] [address] [address] Yepez ChangEGFR-NON AF BRAZILIAN>60Normal>=60The [facility] ClinicComment on above:Performed By: #### A1C #### [facility] [address] [place] [address] Dr. Lucho De LeónGlucose [Mass/Vol]125 mg/dLCritically kcqq27-961Bpn [facility] ClinicComment on above:Performed By: #### A1C #### [facility] [address] [place] [address] Dr. Lucho De LeónPotassium [Moles/Vol]4.2 mmol/LNormal3.5-5.1The [facility] Comment on above:Performed By: #### A1C #### [facility] [address] [place] [address] Dr. Lucho De LeónSodium [Moles/Vol]136 mmol/BKlrbpc963-281Isi [facility] Comment on above:Performed By: #### A1C #### [facility] [address] [place] [address] Dr. Lucho De LeónUrea nitrogen [Mass/Vol]15.0 mg/dLNormal7.0-18.0The [facility] ClinicComment on above:Performed By: #### A1C #### [facility] [address] [place] [address] Dr. Lucho March nitrogen/Creatinine [Mass ratio]25.9 mg/mgNormalThe [facility] ClinicComment on above:Performed By: #### A1C #### [facility] [address] [address] [address] Lucho Srivastava AUTO DIFFon 70-70-1152PRND #0.0 103/ulNormal0.0-0.1The [facility] Hospitalment on above:Performed By: #### BMP #### [facility] [address] [place] [address] Dr. Lucho De LeónBasophils/100 WBC (Bld)0.3 %Normal0.2-2.0The [facility] Comment on above:Performed By: #### BMP #### [facility] [address] [place] [address] Dr. Lucho Hernandez #0.0 103/ulNormal0.0-0.7The [facility] ClinicComment on above: Performed By: #### BMP #### [facility] [address] [place] [address] Dr. Lucho Herbertosinophils/100 WBC (Bld)0.4 %Critically low0.9-7.0The [facility] ClinicComment on above:Performed By: #### BMP #### [facility] [address] [place] [address] Dr. Lucho Herbertrythrocyte distribution width (RBC) [Ratio]15.8 %Critically high 11.0-15.0The [facility] ClinicComment on above:Performed By: #### BMP #### [facility] [address] [place] [address] Dr. Lucho De LeónHematocrit (Bld) [Volume fraction]23.6 %Critically low42.0-54.0 The [facility] ClinicComment on above:Performed By: #### BMP #### [facility] [address] [place] [address] Dr. Lucho De LeónHemoglobin (Bld) [Mass/Vol]7.9 g/dLCritically low14.0-18.0The [facility] ClinicComment on above:Performed By: #### BMP #### [facility] [address] [place] [address] Dr. Lucho Bhatti #0.17 10e3/ulCritically high0.00-0.03The [facility] Comment on above:Performed By: #### BMP #### [facility] [address] [address] [address] Lucho Bhatti %1.6 %Critically high0.0-0.5The [facility] ClinicComment on above:Performed By: #### BMP #### [facility] [address] [address] [address] Lucho Fox #2.8 103/ulNormal1.2-3.8The [facility] ClinicComment on above:Performed By: #### BMP #### [facility] [address] [address] [address] Lucho Paulinohocytes/100 WBC (Bld)27.0 %Cxciml51.5-60.0The [facility] ClinicComment on above:Performed By: #### BMP #### [facility] [address] [place] [address] Dr. Lucho Calero DIFF REQNONormalThe [facility] ClinicComment on above: Performed By: #### BMP #### [facility] [address] [address] [address] Lucho Soto (RBC) [Entitic mass]30.3 tuIplxpr36.9-34.0The [facility] ClinicComment on above:Performed By: #### BMP #### [facility] [address] [address] [address] Lucho Linton (RBC) [Mass/Vol]33.5 g/eJOjxbwm35.9-35.2The [facility] ClinicComment on above:Performed By: #### BMP #### [facility] [address] [place] [address] Dr. Lucho Linton (RBC) [Entitic vol]90.4 vCQorsim34.0-94.0The [facility] ClinicComment on above:Performed By: #### BMP #### [facility] [address] [address] [address] Lucho Diaz #1.2 103/ulCritically high0.3-0.8The [facility] Comment on above:Performed By: #### BMP #### [facility] [address] [place] [address] Dr. Lucho Fengocytes/100 WBC (Bld)11.6 %Normal1.7-12.0The [facility] Comment on above:Performed By: #### BMP #### [facility] [address] [place] [address] Dr. Lucho HennessyUT #6.2 103/ulNormal1.4-6.5The [facility] ClinicComment on above:Performed By: #### BMP #### [facility] [address] [place] [address] Dr. Lucho Hennessyutrophils/100 WBC (Bld)59.1 %Blnvge35.0-75.0The [facility] ClinicComment on above:Performed By: #### BMP #### [facility] [address] [place] [address] Dr. Lucho De LeónPlatelet mean volume (Bld) [Entitic vol]10.1 fLNormal9.5-13.5The [facility] ClinicComment on above:Performed By: #### BMP #### [facility] [address] [place] [address] Dr. Lucho De LeónPLT166 103/lhHmkath399-425Nug [facility] ClinicComment on above: Performed By: #### BMP #### [facility] [address] [place] [address] Dr. Lucho De LeónRBC2.61 106/ulCritically low4.70-6.10The [facility] ClinicComment on above:Performed By: #### BMP #### [facility] [address] [place] [address] Dr. Lucho De LeónWBC10.5 103/ulNormal4.0-11.0The [facility] ClinicComment on above:Performed By: #### BMP #### [facility] [address] [place] [address] Dr. Lucho De LeónHEMOGLOBIN AND HEMATOCRITon 79-02-0563Ovtqytsgwj (Bld) [Volume fraction]26.4 %Critically low42.0-54.0The [facility] ClinicComment on above: Performed By: #### HGBHCT #### [facility] [address] [place] [address] Dr. Lucho De LeónHemoglobin (Bld) [Mass/Vol]8.8 g/dLCritically low14.0-18.0The [facility] ClinicComment on above:Performed By: #### HGBHCT #### [facility] [address] [place] [address] Dr. Lucho De LeónHematocrit (Bld) [Volume fraction]20.9 %Critically low42.0-54.0 The [facility] ClinicComment on above:Performed By: #### CVDTBH #### [facility] [address] [place] [address] Dr. Lucho De LeónHemoglobin (Bld) [Mass/Vol]7.1 g/dLCritically low14.0-18.0The [facility] ClinicComment on above:Performed By: #### CVDTBH #### [facility] [address] [place] [address] Dr. Lucho De LeónATRIUM HEALTH NAV[facility]DW[facility] GLUCOSEon 32-03-4586Pwouajr [Mass/Vol]132 mg/dL Critically pnjb88-062MeaLakehealth Beachwood Medical CenterComment on above:Performed By: #### CBC #### [facility] [address] [place] [address] Dr. Lucho De LeónGlucose [Mass/Vol]198 mg/dLCritically skkq15-540Ceu [facility] ClinicComment on above:Performed By: #### A1C #### [facility] [address] [place] [address] Dr. Lucho De LeónGlucose [Mass/Vol]82 mg/xQPfwnqw69-538DmmLakehealth Beachwood Medical Center Comment on above:Performed By: #### CBC #### [facility] [address] [place] [address] Dr. Lucho De LeónGlucose [Mass/Vol]85 mg/jXJbwoko12-555PfvLakehealth Beachwood Medical Center Comment on above:Performed By: #### CVDTBH #### [facility] [address] [address] [address] Lucho De LeónGlucose [Mass/Vol]115 mg/dLCritically ddap82-013Cad [facility] ClinicComment on above:Performed By: #### A1C #### [facility] [address] [address] [address] Lucho De LeónPROF CHEM 8 (BAS METB)on 95-87-9459Fccqq gap [Moles/Vol]10.6 mmol/LNormalThe Deer Trail HospitalComment on above:Performed By: #### MALBR #### [facility] [address] [address] [address] Lucho De LeónCalcium [Mass/Vol]8.0 mg/dLCritically low8.5-10.1The [facility] ClinicComment on above:Performed By: #### MALBR #### [facility] [address] [address] [address] Lucho De LeónChloride [Moles/Vol]108 mmol/LCritically ppbu10-164Uwk [facility] ClinicComment on above:Performed By: #### MALBR #### [facility] [address] [address] [address] Lucho De LeónCO2 [Moles/Vol]23.6 mmol/RDkvayf10.0-32.0The [facility] Comment on above:Performed By: #### MALBR #### [facility] [address] [address] [address] Lucho De LeónCreatinine [Mass/Vol]0.54 mg/dLCritically low0.70-1.30The [facility] ClinicComment on above:Performed By: #### MALBR #### [facility] [address] [address] [address] Yepez ChangEGFR-AF BRAZILIAN>60Normal>=60The [facility] ClinicComment on above:Performed By: #### MALBR #### [facility] [address] [address] [address] Lucho HerbertGFR-NON AF BRAZILIAN>60Normal>=60The [facility] ClinicComment on above:Performed By: #### MALBR #### [facility] [address] [address] [address] Lucho De LeónGlucose [Mass/Vol]126 mg/dLCritically neco08-544Acx [facility] ClinicComment on above:Performed By: #### MALBR #### [facility] [address] [address] [address] Lucho De LeónPotassium [Moles/Vol]4.2 mmol/LNormal3.5-5.1The [facility] Comment on above:Performed By: #### MALBR #### [facility] [address] [address] [address] Lucho De LeónSodium [Moles/Vol]138 mmol/UTexvhh572-356Uvs [facility] Comment on above:Performed By: #### MALBR #### [facility] [address] [address] [address] Lucho De LeónUrea nitrogen [Mass/Vol]28.0 mg/dLCritically high7.0-18.0The [facility] ClinicComment on above:Performed By: #### MALBR #### [facility] [address] [place] [address] Dr. Lucho March nitrogen/Creatinine [Mass ratio]51.9 mg/mgNormalThe [facility] ClinicComment on above:Performed By: #### MALBR #### [facility] [address] [address] [address] Lucho Srivastava W MANUAL DIFFon 33-46-7589CXXXTJDP LYMPH #NormalThe [facility] ClinicComment on above:Performed By: #### CVDTBH #### [facility] [address] [address] [address] Lucho De LeónATYPICAL LYMPH %NormalThe [facility] ClinicComment on above: Performed By: #### CVDTBH #### [facility] [address] [place] [address] Dr. Lucho Faye #0.4 103/ulCritically high0.0-0.3The [facility] Comment on above:Performed By: #### CVDTBH #### [facility] [address] [address] [address] Lucho Faye %3 %Normal0-5The [facility] HospitalComment on above:Performed By: #### CVDTBH #### [facility] [address] [address] [address] Lucho Del Angel #0.00 103/ulNormal0.00-0.10The [facility] HospitalComment on above:Performed By: #### CVDTBH #### [facility] [address] [address] [address] Lucho Del Angel %0.0 %Critically low0.2-2.0The [facility] ClinicComment on above:Performed By: #### CVDTBH #### [facility] [address] [address] [address] Lucho Elam #NormalThe [facility]er Trail HospitalComment on above:Performed By: #### CVDTBH #### [facility] [address] [address] [address] Lucho De LeónBLAST %NormalThe [facility]er Trail HospitalComment on above:Performed By: #### CVDTBH #### [facility] [address] [address] [address] Lucho De LeónCORRECTED WBCNormal4.0-11.0The [facility] ClinicCominsight surgical hospital on above: Performed By: #### CVDTBH #### [facility] [address] [address] [address] Lucho Mead #0.00 103/ulNormal0.00-0.70The [facility] ClinicComment on above:Performed By: #### CVDTBH #### [facility] [address] [address] [address] Lucho Mead%0.0 %Critically low0.9-7.0The [facility] ClinicComment on above:Performed By: #### CVDTBH #### [facility] [address] [address] [address] Lucho De LenóHCT25.1 %Critically low42.0-54.0The [facility] ClinicComment on above:Performed By: #### CVDTBH #### [facility] [address] [address] [address] Lucho De LeónB8.5 g/dlCritically low14.0-18.0The [facility] ClinicComment on above:Performed By: #### CVDTBH #### [facility] [address] [address] [address] Lucho Peñaloza #2.10 103/ulNormal1.20-3.80The [facility] ClinicComment on above:Performed By: #### CVDTBH #### [facility] [address] [place] [address] Dr. Lucho Peñaloza%15.0 %Critically low20.5-60.0The [facility] ClinicComment on above:Performed By: #### CVDTBH #### [facility] [address] [place] [address] Dr. Lucho LintonH30.9 nkQdgbqh79.9-34.0The [facility] ClinicComment on above: Performed By: #### CVDTBH #### [facility] [address] [place] [address] Dr. Lucho LintonHC33.9 g/dsJgfyif81.9-35.2The [facility] ClinicCominsight surgical hospital on above:Performed By: #### CVDTBH #### [facility] [address] [place] [address] Dr. Lucho LintonV91.3 iXOcyhsl97.0-94.0The [facility] ClinicComment on above: Performed By: #### CVDTBH #### [facility] [address] [place] [address] Dr. Lucho GomezOCYTE #NormalThe [facility] ClinicCominsight surgical hospital on above: Performed By: #### CVDTBH #### [facility] [address] [place] [address] Dr. Lucho GomezOCYTE %NormalThe [facility] ClinicComment on above: Performed By: #### CVDTBH #### [facility] [address] [address] [address] Lucho Blankenship#0.98 103/ulCritically high0.30-0.80The [facility] Comment on above:Performed By: #### CVDTBH #### [facility] [address] [address] [address] Lucho Blankenship%7.0 %Normal1.7-12.0The [facility] HospitalComment on above: Performed By: #### CVDTBH #### [facility] [address] [address] [address] Lucho De LeónMPV10.7 fLNormal9.5-13.5The [facility] ClinicComment on above: Performed By: #### CVDTBH #### [facility] [address] [place] [address] Dr. Lucho Chua #NormalThe [facility] ClinicComment on above:Performed By: #### CVDTBH #### [facility] [address] [place] [address] Dr. Lucho BojorquezOCYTE %NormalThe Deer Trail HospitalComment on above:Performed By: #### CVDTBH #### [facility] [address] [place] [address] Dr. Lucho StewardIzcmlXCFR4RzdwgoDhs [facility] HospitalComment on above:Performed By: #### CVDTBH #### [facility] [address] [place] [address] Dr. Lucho De LeónPLT176 103/mfZyqlmq353-670Xvp [facility]er Trail HospitalComment on above: Performed By: #### CVDTBH #### [facility] Laboratory [address] [address] [address] Lucho De LeónRBC2.75 106/ulCritically low4.70-6.10The [facility]opathic ClinicComment on above:Performed By: #### CVDTBH #### [facility] [address] [place] [address] Dr. Lucho De LeónRDW14.2 %Kxeghc33.0-15.0The [facility] ClinicComment on above: Performed By: #### CVDTBH #### [facility] [address] [place] [address] Dr. Lucho Brito #10.50 103/ulCritically high1.40-6.50The [facility] Comment on above:Performed By: #### CVDTBH #### [facility] [address] [place] [address] Dr. Lucho Brito %75.0 %Vnbhio45.0-75.0The [facility] ClinicComment on above: Performed By: #### CVDTBH #### [facility] [address] [place] [address] Dr. Lucho De LeónWBC14.0 103/ulCritically high4.0-11.0The [facility] ClinicComment on above:Performed By: #### CVDTBH #### [facility] [address] [place] [address] Dr. Lucho De LeónHEMOGLOBIN AND HEMATOCRITon 66-28-6517Udjziwkwna (Bld) [Volume fraction]24.4 %Critically low42.0-54.0The [facility] ClinicComment on above: Performed By: #### HGBHCT #### [facility] [address] [place] [address] Dr. Lucho De LeónHemoglobin (Bld) [Mass/Vol]8.3 g/dLCritically low14.0-18.0The [facility] ClinicComment on above:Performed By: #### HGBHCT #### [facility] [address] [place] [address] Dr. Lucho De LeónPOINT OF CARE GLUCOSEon 65-02-3415Itdieib [Mass/Vol]222 mg/dL Critically isap32-315Pec [facility] ClinicComment on above:Performed By: #### BMP #### [facility] [address] [place] [address] Dr. Lucho De LeónGlucose [Mass/Vol]330 mg/dLCritically nhlc21-854Lmc [facility] ClinicComment on above:Performed By: #### HGBHCT #### [facility] [address] [place] [address] Dr. Lucho De LeónGlucose [Mass/Vol]357 mg/dLCritically jtrc88-293Atk [facility] ClinicComment on above:Performed By: #### A1C #### [facility] [address] [place] [address] Dr. Lucho De LeónGlucose [Mass/Vol]257 mg/dLCritically wdrn72-297Gqm [facility] ClinicComment on above:Performed By: #### MALBR #### [facility] [address] [place] [address] Dr. Lucho De LeónGlucose [Mass/Vol]330 mg/dLCritically ewkn21-069Vmu [facility] ClinicComment on above:Performed By: #### CVDTBH #### [facility] [address] [place] [address] Dr. Lucho De LeónPROF CHEM 8 (BAS METB)on 08-61-0717Nbrrq gap [Moles/Vol]15.3 mmol/LNormalThe [facility] ClinicComment on above:Performed By: #### BMP #### [facility] [address] [place] [address] Dr. Lucho De LeónCalcium [Mass/Vol]7.9 mg/dLCritically low8.5-10.1The [facility] ClinicComment on above:Performed By: #### BMP #### [facility] [address] [place] [address] Dr. Lucho De LeónChloride [Moles/Vol]106 mmol/AIuhati72-862Slf [facility] Comment on above:Performed By: #### BMP #### [facility] [address] [place] [address] Dr. Lucho De LeónCO2 [Moles/Vol]20.9 mmol/LCritically low21.0-32.0The [facility] ClinicComment on above:Performed By: #### BMP #### [facility] [address] [place] [address] Dr. Lucho De LeónCreatinine [Mass/Vol]0.84 mg/dLNormal0.70-1.30The [facility] ClinicComment on above:Performed By: #### BMP #### [facility] [address] [place] [address] Dr. Yepez ChangEGFR-AF BRAZILIAN>60Normal>=60The [facility] ClinicComment on above:Performed By: #### BMP #### [facility] [address] [place] [address] Dr. Lucho HerbertGFR-NON AF BRAZILIAN>60Normal>=60The [facility] ClinicComment on above:Performed By: #### BMP #### [facility] [address] [address] [address] Lucho De LeónGlucose [Mass/Vol]275 mg/dLCritically ywga37-485Htv [facility] ClinicComment on above:Performed By: #### BMP #### [facility] [address] [place] [address] Dr. Lucho De LeónPotassium [Moles/Vol]5.2 mmol/LCritically high3.5-5.1The [facility] ClinicComment on above:Performed By: #### BMP #### [facility] [address] [place] [address] Dr. Lucho De LeónSodium [Moles/Vol]137 mmol/RKwclan455-657Lik [facility] Comment on above:Performed By: #### BMP #### [facility] [address] [place] [address] Dr. Lucho De LeónUrea nitrogen [Mass/Vol]57.0 mg/dLCritically high7.0-18.0The [facility] ClinicComment on above:Performed By: #### BMP #### [facility] [address] [place] [address] Dr. Lucho March nitrogen/Creatinine [Mass ratio]67.9 mg/mgNoTriHealth Bethesda Butler HospitalComment on above:Performed By: #### BMP #### [facility] [address] [place] [address] Dr. Lucho De LeónTYPE AND SCREENon 60-49-7810RIRX AND SCREENNegativeBlanchard Valley Health System Blanchard Valley HospitalComment on above:Performed By: #### MALBR #### [facility] [address] [place] [address] Dr. Lucho Finney RH RETYPEon 62-21-3161ICO and Rh group Nom (Bld)DONENormalThe [facility] ClinicComment on above:Performed By: #### CVDTBH #### [facility] [address] [place] [address] Dr. Lucho De LeónAMYLASEon 95-29-2776Fjdgbug [Catalytic activity/Vol]34 U/LNormal 25-115The [facility] ClinicComment on above:Performed By: #### CBC #### [facility] [address] [place] [address] Dr. Lucho MetcalfC AUTO DIFFon 12-90-6730UKTH #0.0 103/ulNormal0.0-0.1The [facility] Hospitalment on above:Performed By: #### CBC #### [facility] [address] [place] [address] Dr. Lucho De LeónBasophils/100 WBC (Bld)0.3 %Normal0.2-2.0[facility] Comment on above:Performed By: #### CBC #### [facility] [address] [place] [address] Dr. Lucho Hernandez #0.0 103/ulNormal0.0-0.7The [facility]ucl[facility] Hospitalment on above: Performed By: #### CBC #### [facility] [address] [place] [address] Dr. Lucho Herbertosinophils/100 WBC (Bld)0.3 %Critically low0.9-7.0The [facility]ucl[facility] Hospitalment on above:Performed By: #### CBC #### [facility] [address] [place] [address] Dr. Lucho Herbertrythrocyte distribution width (RBC) [Ratio]13.9 %Deoxpk93.0-15.0 [facility] Healthment on above:Performed By: #### CBC #### [facility] [address] [place] [address] Dr. Lucho De LeónHematocrit (Bld) [Volume fraction]30.5 %Critically low42.0-54.0 The [facility] ClinicComment on above:Performed By: #### CBC #### [facility] [address] [place] [address] Dr. Lucho De LeónHemoglobin (Bld) [Mass/Vol]10.0 g/dLCritically low14.0-18.0The [facility] ClinicComment on above:Performed By: #### CBC #### [facility] [address] [place] [address] Dr. Lucho Bhatti #0.12 10e3/ulCritically high0.00-0.03The [facility] Comment on above:Performed By: #### CBC #### [facility] [address] [place] [address] Dr. Lucho Bhatti %1.0 %Critically high0.0-0.5The [facility] ClinicComment on above:Performed By: #### CBC #### [facility] [address] [place] [address] Dr. Lucho Fox #1.4 103/ulNormal1.2-3.8The [facility] ClinicComment on above:Performed By: #### CBC #### [facility] [address] [place] [address] Dr. Lucho Paulinohocytes/100 WBC (Bld)12.5 %Critically low20.5-60.0The [facility] ClinicComment on above:Performed By: #### CBC #### [facility] [address] [place] [address] Dr. Lucho AdamsUAL DIFF REQNONormalThe [facility] ClinicComment on above: Performed By: #### CBC #### [facility] [address] [place] [address] Dr. Lucho Soto (RBC) [Entitic mass]31.2 dtKjifqr86.9-34.0The [facility] ClinicComment on above:Performed By: #### CBC #### [facility] [address] [place] [address] Dr. Lucho Linton (RBC) [Mass/Vol]32.8 g/nNVpwcxf04.9-35.2The [facility] ClinicComment on above:Performed By: #### CBC #### [facility] [address] [place] [address] Dr. Lucho Viveros (RBC) [Entitic vol]95.0 fLCritically high80.0-94.0The [facility] ClinicComment on above:Performed By: #### CBC #### [facility] [address] [place] [address] Dr. Lucho Diaz #0.8 103/ulNormal0.3-0.8The [facility] ClinicComment on above:Performed By: #### CBC #### [facility] [address] [place] [address] Dr. Lucho Fengocytes/100 WBC (Bld)6.9 %Normal1.7-12.0[facility] Comment on above:Performed By: #### CBC #### [facility] [address] [place] [address] Dr. Lucho Schuster #9.0 103/ulCritically high1.4-6.5The [facility] Comment on above:Performed By: #### CBC #### [facility] [address] [place] [address] Dr. Lucho Hennessyutrophils/100 WBC (Bld)79.0 %Critically high43.0-75.0The [facility] ClinicComment on above:Performed By: #### CBC #### [facility] [address] [place] [address] Dr. Lucho Maddenlet mean volume (Bld) [Entitic vol]10.2 fLNormal9.5-13.5The [facility] ClinicComment on above:Performed By: #### CBC #### [facility] [address] [place] [address] Dr. Lucho ReyesT226 103/aaUwntof548-783Ulk [facility] ClinicComment on above: Performed By: #### CBC #### [facility] [address] [place] [address] Dr. Lucho De LeónRBC3.21 106/ulCritically low4.70-6.10The [facility] HospitalComment on above:Performed By: #### CBC #### [facility] [address] [place] [address] Dr. Lucho EscotoBC11.4 103/ulCritically high4.0-11.0The [facility] HospitalComment on above:Performed By: #### CBC #### [facility] [address] [place] [address] Dr. Lucho Srivastava W MANUAL DIFFon 80-66-7421NCUIXEJC LYMPH #NormalDiley Ridge Medical Center HospitalComment on above:Performed By: #### MALBR #### [facility] [address] [place] [address] Dr. Lucho GiraldoYPICAL LYMPH %NormalThe Deer Trail HospitalComment on above: Performed By: #### MALBR #### [facility] [address] [place] [address] Dr. Lucho Faye #0.3 103/ulNormal0.0-0.3The [facility] HospitalComment on above:Performed By: #### MALBR #### [facility] [address] [place] [address] Dr. Lucho Faye %2 %Normal0-5The [facility] HospitalComment on above:Performed By: #### MALBR #### [facility] [address] [place] [address] Dr. Lucho Del Angel #0.00 103/ulNormal0.00-0.10The [facility] HospitalComment on above:Performed By: #### MALBR #### [facility] [address] [place] [address] Dr. Lucho Del Angel %0.0 %Critically low0.2-2.0The [facility] HospitalComment on above:Performed By: #### MALBR #### [facility] [address] [place] [address] Dr. Lucho Elam #NormalDiley Ridge Medical Center HospitalComment on above:Performed By: #### MALBR #### [facility] [address] [address] [address] Lucho De LeónBLAST %NormalThe [facility] ClinicComment on above:Performed By: #### MALBR #### [facility] [address] [place] [address] Dr. Lucho De LeónCORRECTED WBCNormal4.0-11.0The [facility] ClinicComment on above: Performed By: #### MALBR #### [facility] [address] [place] [address] Dr. Lucho Mead #0.00 103/ulNormal0.00-0.70The [facility] ClinicComment on above:Performed By: #### MALBR #### [facility] [address] [place] [address] Dr. Lucho Mead%0.0 %Critically low0.9-7.0The [facility] ClinicComment on above:Performed By: #### MALBR #### [facility] [address] [place] [address] Dr. Lucho De LeónHCT20.0 %Critically low42.0-54.0The [facility] ClinicComment on above:Performed By: #### MALBR #### [facility] [address] [place] [address] Dr. Lucho De LeónHGB6.7 g/dlCritically low14.0-18.0The [facility] ClinicCominsight surgical hospital on above:Performed By: #### MALBR #### [facility] [address] [place] [address] Dr. Lucho Peñaloza #2.53 103/ulNormal1.20-3.80The [facility] ClinicCominsight surgical hospital on above:Performed By: #### MALBR #### [facility] [address] [place] [address] Dr. Lucho Peñaloza%17.0 %Critically low20.5-60.0The [facility] ClinicComment on above:Performed By: #### MALBR #### [facility] [address] [place] [address] Dr. Lucho De LeónMCH30.6 kmYnmxbu46.9-34.0The [facility] HospitalComment on above: Performed By: #### MALBR #### [facility] [address] [address] [address] Lucho LintonHC33.5 g/gzIuigbq96.9-35.2The [facility] HospitalComment on above:Performed By: #### MALBR #### [facility] [address] [address] [address] Lucho LintonV91.3 eTIpqybk38.0-94.0The [facility] HospitalComment on above: Performed By: #### MALBR #### [facility] [address] [place] [address] Dr. Lucho Lau #NormalThe [facility] ClinicComment on above: Performed By: #### MALBR #### [facility] [address] [place] [address] Dr. Lucho Lau %NormalThe [facility] ClinicComment on above: Performed By: #### MALBR #### [facility] [address] [place] [address] Dr. Lucho Blankenship#0.00 103/ulCritically low0.30-0.80The [facility] on above:Performed By: #### MALBR #### [facility] [address] [place] [address] Dr. Lucho Blankenship%0.0 %Critically low1.7-12.0The [facility] ClinicComment on above:Performed By: #### MALBR #### [facility] [address] [place] [address] Dr. Lucho GilliamV10.9 fLNormal9.5-13.5The [facility] ClinicComment on above: Performed By: #### MALBR #### [facility] [address] [place] [address] Dr. Lucho Chua #NormalThe [facility] ClinicComment on above:Performed By: #### MALBR #### [facility] [address] [place] [address] Dr. Lucho Chua %NormalLakehealth Beachwood Medical CenterComment on above:Performed By: #### MALBR #### [facility] [address] [address] [address] Lucho StewardRkxfnPLAE7CfepgmVfr [facility] HospitalComment on above:Performed By: #### MALBR #### [facility] [address] [place] [address] Dr. Lucho De LeónPLT214 103/zpDgqaye663-627Vot [facility] ClinicComment on above: Result Comment: Previously reported as: 69 On 03/26/2022 21:36 By [email or web address] By: #### MALBR #### [facility] [address] [place] [address] Dr. Lucho RamseyC2.19 106/ulCritically low4.70-6.10The [facility] ClinicComment on above:Performed By: #### MALBR #### [facility] [address] [place] [address] Dr. Lucho De LeónRDW14.0 %Llvlxz64.0-15.0[facility] CenterComment on above: Performed By: #### MALBR #### [facility] [address] [place] [address] Dr. Lucho Brito #12.07 103/ulCritically high1.40-6.50[facility] Comment on above:Performed By: #### MALBR #### [facility] [address] [place] [address] Dr. Lucho Brito %81.0 %Critically high43.0-75.0[facility] Medical CenterComment on above:Performed By: #### MALBR #### [facility] [address] [place] [address] Dr. Lucho EscotoBC14.9 103/ulCritically high4.0-11.0The [facility] ClinicComment on above:Performed By: #### MALBR #### [facility] [address] [place] [address] Dr. Lucho De LeónCT ABD/PELV W CONon 94-03-1998WO ABD/PELV W CONEXAMINATION: CT ABD/PELV W CON HISTORY: ABDOMINAL DISTENSION [...] Electronically authenticated by: ROSARIO BLANCO Date: 2022-03-26 05:29NoTriHealth Bethesda Butler HospitalCovid-19 PCR (CVDTB)on 38-75-6770VCAI-CoV-2 (COVID-19) RNA IVANNA+probe Ql (Unsp spec)Not detectedNormalNOT DETECTEDThe [facility] Comment on above:Result Comment: When diagnostic testing is negative, the [...] for this test is supported by the [place] of Health and Human Service's declaration that circumstances exist to justify the emergency use of in vitro diagnostics for the detection and/or diagnosis of the virus that causes COVID-19. This EUA will remain in effect for the duration of the COVID-19 declaration justifying emergency of IVDs, unless it is terminated or revoked by the FDA (after which the test may no longer be used).Performed By: #### CVDTBH #### [facility] [address] [place] [address] Dr. Lucho Velasquez URINE PROFILEon 22-68-1156Urhleazsw Ql (U)NegativeNormal NEGATIVELakehealth Beachwood Medical CenterComment on above:Performed By: #### A1C #### [facility] [address] [place] [address] Dr. Lucho De LeónClarity (U)CLEARNormalCLEARLakehealth Beachwood Medical CenterComment on above: Performed By: #### A1C #### [facility] [address] [place] [address] Dr. Lucho Warner (U)LT. YELLOWNormalYELLOWLakehealth Beachwood Medical CenterComment on above:Performed By: #### A1C #### [facility] [address] [place] [address] Dr. Lucho Johnson micrscopic examination will be performed if indicated. NormalLakehealth Beachwood Medical CenterComment on above:Performed By: #### A1C #### [facility] [address] [place] [address] Dr. Lucho De LeónGlucose Ql (U)>1000AbnormalNEGATIVELakehealth Beachwood Medical CenterComment on above:Performed By: #### A1C #### [facility] [address] [place] [address] Dr. Lucho De LeónHemoglobin Ql (U)NegativeNormalNEGATIVELakehealth Beachwood Medical Center Comment on above:Performed By: #### A1C #### [facility] [address] [address] [address] Lucho Kruse Ql (U)15 mg/dlAbnormalNEGATIVELakehealth Beachwood Medical Center Comment on above:Performed By: #### A1C #### [facility] [address] [address] [address] Lucho De LeónLEUKOCYTESNegativeNormalNEGATIVELakehealth Beachwood Medical CenterComment on above:Performed By: #### A1C #### [facility] [address] [place] [address] Dr. Lucho Juarestrsunil Ql (U)NegativeNormalNEGATIVELakehealth Beachwood Medical CenterComment on above:Performed By: #### A1C #### [facility] [address] [place] [address] Dr. Lucho De LeónpH (U)5.0 [pH]Normal5-9The [facility] ClinicComment on above: Performed By: #### A1C #### [facility] [address] [place] [address] Dr. Lucho De LeónSPEC GRAVITY<=1.842Zfedefbh4.005-<=1.025[facility] Comment on above:Performed By: #### A1C #### [facility] [address] [place] [address] Dr. Lucho Seth PROTEINNegativeFreeman Cancer InstitutealNEGATIVE/ TRACELakehealth Beachwood Medical Center Comment on above:Performed By: #### A1C #### [facility] [address] [place] [address] Dr. Lucho Hines MICRO INDNOT INDICATEDBlanchard Valley Health System [facility]ard Valley HospitalComment on above:Performed By: #### A1C #### [facility] [address] [place] [address] Dr. Lucho Sortobilinogen Qn (U)0.2 {Danny'U}/dLNormal0.2 - 1.0[facility] Medical CenterComment on above:Performed By: #### A1C #### [facility] [address] [place] [address] Dr. Lucho Wilson 21-07-7781Neucyu [Catalytic activity/Vol]69.0 U/L Critically low73.0-393.0The [facility] ClinicComment on above:Performed By: #### CBC #### [facility] [address] [place] [address] Dr. Lucho Moseley BLD IMMUNO SCREENon 85-16-7737WDFJBB BLOODPositiveAbnormal NEGATIVEThe [facility] ClinicComment on above:Performed By: #### HGBHCT #### [facility] [address] [place] [address] Dr. Lucho De LeónPOINT OF CARE GLUCOSEon 30-25-2092Taghlul [Mass/Vol]271 mg/dL Critically brrx46-630Liy [facility] ClinicComment on above:Performed By: #### BMP #### [facility] [address] [place] [address] Dr. Lucho Valentino 14(COMP METB)on 50-21-0028Xphnnxg [Mass/Vol]2.7 g/dL Critically low3.4-5.0The [facility] ClinicComment on above:Performed By: #### CVDTBH #### [facility] [address] [place] [address] Dr. Lucho Cruz [Catalytic activity/Vol]53 U/OAipaur75-062Htz [facility] ClinicComment on above:Performed By: #### CVDTBH #### [facility] [address] [place] [address] Dr. Lucho Gonzalez [Catalytic activity/Vol]18 U/ADajnjx43-43Dpu [facility] ClinicComment on above:Performed By: #### CVDTBH #### [facility] [address] [place] [address] Dr. Lucho Parks gap [Moles/Vol]18.7 mmol/LNormalThe [facility] on above:Performed By: #### CVDTBH #### [facility] [address] [place] [address] Dr. Lucho Benjamin [Catalytic activity/Vol]14 U/LCritically avb19-59Yxu [facility] ClinicComment on above:Performed By: #### CVDTBH #### [facility] [address] [address] [address] Lucho De LeónBilirubin [Mass/Vol]0.2 mg/dLNormal0.2-1.0The [facility] Comment on above:Performed By: #### CVDTBH #### [facility] [address] [place] [address] Dr. Lcuho De LeónChloride [Moles/Vol]99 mmol/QZmwyvy32-504Gzq [facility] Comment on above:Performed By: #### CVDTBH #### [facility] [address] [place] [address] Dr. Lucho De LeónCO2 [Moles/Vol]18.3 mmol/LCritically low21.0-32.0The [facility] ClinicComment on above:Performed By: #### CVDTBH #### [facility] [address] [place] [address] Dr. Lucho De LeónCreatinine [Mass/Vol]0.75 mg/dLNormal0.70-1.30The [facility] ClinicComment on above:Performed By: #### CVDTBH #### [facility] [address] [place], [place] [address] Dr. Lucho De LeónGlobulin (S) [Mass/Vol]2.6 g/dLNormalThe [facility] ClinicComment on above:Performed By: #### CVDTBH #### [facility] [address] [place] [address] Dr. Lucho De LeónGlucose [Mass/Vol]323 mg/dLCritically qgla53-788Vsh [facility] ClinicComment on above:Performed By: #### CVDTBH #### [facility] [address] [address] [address] Lucho De LeónPotassium [Moles/Vol]5.0 mmol/LNormal3.5-5.1The [facility] Comment on above:Performed By: #### CVDTBH #### [facility] [address] [place] [address] Dr. Lucho De LeónProtein [Mass/Vol]5.3 g/dLCritically low6.4-8.2The [facility] ClinicComment on above:Performed By: #### CVDTBH #### [facility] [address] [place] [address] Dr. Lucho De LeónSodium [Moles/Vol]131 mmol/LCritically rdb056-250Rna [facility] ClinicComment on above:Performed By: #### CVDTBH #### [facility] [address] [place] [address] Dr. Lucho March nitrogen [Mass/Vol]65.0 mg/dLCritically high7.0-18.0The [facility] ClinicComment on above:Performed By: #### CVDTBH #### [facility] [address] [place] [address] Dr. Lucho March nitrogen/Creatinine [Mass ratio]86.7 mg/mgNormalThe [facility] ClinicComment on above:Performed By: #### CVDTBH #### [facility] [address] [place] [address] Dr. Lucho De LeónAlbumin [Mass/Vol]3.0 g/dLCritically low3.4-5.0The [facility] ClinicComment on above:Performed By: #### CBC #### [facility] [address] [place] [address] Dr. Lucho De LeónAlbumin/Globulin [Mass ratio]1.0 {ratio}NormalThe [facility] ClinicCominsight surgical hospital on above:Performed By: #### CVDTBH #### [facility] [address] [place] [address] Dr. Lucho De LeónPerformed By: #### CBC #### [facility] [address] [place] [address] Dr. Lucho Cruz [Catalytic activity/Vol]64 U/CFwpkaj32-672Vfc [facility] ClinicCominsight surgical hospital on above:Performed By: #### CBC #### [facility] [address] [place] [address] Dr. Lucho LeeT [Catalytic activity/Vol]20 U/VYtqqrx76-79Wwp [facility] ClinicComment on above:Performed By: #### CBC #### [facility] [address] [address] [address] Lucho Guzmanon gap [Moles/Vol]14.2 mmol/LNormalThe [facility] Comment on above:Performed By: #### CBC #### [facility] [address] [address] [address] Lucho De LeónAST [Catalytic activity/Vol]11 U/LCritically vhw13-19Ffa [facility] ClinicComment on above:Performed By: #### CBC #### [facility] [address] [place] [address] Dr. Lucho De LeónBilirubin [Mass/Vol]0.3 mg/dLNormal0.2-1.0The [facility] Comment on above:Performed By: #### CBC #### [facility] [address] [place] [address] Dr. Lucho De LeónCalcium [Mass/Vol]8.3 mg/dLCritically low8.5-10.1The [facility] ClinicComment on above:Performed By: #### CVDTBH #### [facility] [address] [place] [address] Dr. Lucho De LeónPerformed By: #### CBC #### [facility] [address] [place] [address] Dr. Lucho De LeónChloride [Moles/Vol]102 mmol/ZWgstbv04-866MpaLakehealth Beachwood Medical Center Comment on above:Performed By: #### CBC #### [facility] [address] [place] [address] Dr. Lucho De LeónCO2 [Moles/Vol]23.4 mmol/ZPkuofv12.0-32.0The [facility] Comment on above:Performed By: #### CBC #### [facility] [address] [place] [address] Dr. Lucho De LeónCreatinine [Mass/Vol]0.81 mg/dLNormal0.70-1.30The [facility] ClinicComment on above:Performed By: #### CBC #### [facility] [address] [place] [address] Dr. Yepez ChangEGFR-AF BRAZILIAN>60Normal>=60The [facility] ClinicComment on above:Performed By: #### CVDTBH #### [facility] [address] [place] [address] Dr. Lucho De LeónPerformed By: #### CBC #### [facility] [address] [place] [address] Dr. Yepez ChangEGFR-NON AF BRAZILIAN>60Normal>=60The [facility] ClinicComment on above:Performed By: #### CVDTBH #### [facility] [address] [place] [address] Dr. Lucho De LeónPerformed By: #### CBC #### [facility] [address] [place] [address] Dr. Lucho De LeónGlobulin (S) [Mass/Vol]3.0 g/dLNormalThe [facility] ClinicComment on above:Performed By: #### CBC #### [facility] [address] [place] [address] Dr. Lucho De LeónGlucose [Mass/Vol]261 mg/dLCritically efvx64-451Ijn [facility] ClinicComment on above:Performed By: #### CBC #### [facility] [address] [place] [address] Dr. Lucho De LeónPotassium [Moles/Vol]4.6 mmol/LNormal3.5-5.1The [facility] Comment on above:Performed By: #### CBC #### [facility] [address] [place] [address] Dr. Lucho De LeónProtein [Mass/Vol]6.0 g/dLCritically low6.4-8.2The [facility] ClinicComment on above:Performed By: #### CBC #### [facility] [address] [place] [address] Dr. Lucho De LeónSodium [Moles/Vol]135 mmol/LCritically tpb014-327Fuo [facility] ClinicComment on above:Performed By: #### CBC #### [facility] [address] [place] [address] Dr. Lucho De LeónUrea nitrogen [Mass/Vol]56.0 mg/dLCritically high7.0-18.0[facility]wood Medical CenterComment on above:Performed By: #### CBC #### [facility] [address] [place] [address] Dr. Lucho De LeónUrea nitrogen/Creatinine [Mass ratio]69.1 mg/mgNoTriHealth Bethesda Butler HospitalComment on above:Performed By: #### CBC #### [facility] [address] [place] [address] Dr. Lucho De LeónPROTIMEon 53-28-0133GVB Coag (PPP) [Relative time]0.99 {INR} NormalThe [facility] ClinicComment on above:Performed By: #### MALBR #### [facility] [address] [place] [address] Dr. Lucho De LeónINAlberta GUIDELINESSEE BELOWBlanchard Valley Health System Blanchard Valley HospitalComment on above:Result Comment: DESIRED INR: 2.0 - 3.0 CONDITIONS NOT LISTED BELOW 2.5 - 3.5 FOR PROSTHETIC HEART VALVE REPLACEMENT 2.5 - 3.5 RECURRENT THROMBOSIS Performed By: #### MALBR #### [facility] [address] [place] [address] Dr. Lucho De LeónPT Coag (PPP) [Time]10.7 sNormal9.0-11.6ThKettering Health [facility] Comment on above:Performed By: #### MALBR #### [facility] [address] [place] [address] Dr. Lucho De LeónPTTon 22-63-4162iOCH Coag (Bld) [Time]20.8 sCritically low 22.3-36.2[facility] Medical CenterComment on above:Performed By: #### MALBR #### [facility] [address] [place] [address] Dr. Lucho De LeónXR ABD FLAT UP_PA Brie 34-60-3359HK ABD FLAT UP_PA CHEXAM: XR ABD FLAT UP_PA CH HISTORY: CONSTIPATION, [...] Electronically authenticated by: ROSARIO BLANCO Date: 2022-03-26 05:15NMount Carmel Health SystemCoding Summaryon [id number] SummaryMLBase 64 ZfqyuqejOOm1tIj+PGhlYWQ+WX3CDDKmO51rqZFnzW4DB1xQBX6HRXYAPKIPES0ROZ0cjCJ0CBakC9Xj biAv [file] cHN (more content not included)...[facility] CenterProvider Orderson 67-34-0592Smfjjspj [id number]#1.00OTGTParkview Health Vital Signs Date TimeVital SignValuePerforming QzulkknudIpnpfhqk04-43-5857 13:49-0400Body datxul413.02 Dillonisa Aichholz INTERFACE DEVELOPER-C Work Phone: [facility]10-29-2025 13:49-0400 Body mass index (BMI) [Ratio]33.5 kg/m2Lisa Aichholz INTERFACE DEVELOPER-C Work Phone: [facility]10-29-2025 13:49-0400 Body ymadzopejoc46.8 [degF]Tonya Aichholz INTERFACE DEVELOPER-C Work Phone: [facility]10-29-2025 13:49-0400 Body kyarej48.72 kgLisa Aichholz INTERFACE DEVELOPER-C Work Phone: [facility]10-29-2025 13:49-0400 Diastolic blood btuilbzg88 mm[Hg]Tonya Aichholz INTERFACE DEVELOPER-C Work Phone: [facility]10-29-2025 13:49-0400 Heart rate70 /minLisa Aichholz INTERFACE DEVELOPER-C Work Phone: [facility]10-29-2025 13:49-0400 Respiratory rate16 /minLisa Aichholz INTERFACE DEVELOPER-C Work Phone: [facility]10-29-2025 13:49-0400 SaO2% (BldA) [Mass fraction]95 %Tonya Aminbrett INTERFACE DEVELOPER-C Work Phone: [facility]10-29-2025 13:49-0400 Systolic blood pyagbora733 mm[Hg]Tonya Aminbrett INTERFACE DEVELOPER-C Work Phone: [facility]09-30-2025 12:59-0400 Body wahgfo542.2 Kel Rebolledo MD Work Phone: [facility] [employer] Yqkzen97-02-4774 12:59-0400Body mass index (BMI) [Ratio]30.53 kg/t9YosepKamran Rebolledo MD Work Phone: [facility] [employer] Buwdkq29-90-4895 12:59-0400Body .45 kgKamran Rebolledo MD Work Phone: [facility] [employer] Suwpwt91-08-6968 12:59-0400Diastolic blood mrzlykua39 mm[Hg]Kamran Rebolledo MD Work Phone: [facility] [employer] Sgcrce25-20-5408 12:59-0400Heart rate 62 /Chiquita Rebolledo MD Work Phone: [facility] [employer] Qtfmmx08-02-5333 12:59-5976JmG8% (BldA) [Mass fraction]99 %Kamran Rebolledo MD Work Phone: [facility] [employer] Bkhzdd81-66-2068 12:59-0400Systolic blood qigbnlqf904 mm[Hg]Kamran Rebolledo MD Work Phone: [facility] [employer] Unbpup95-05-1462 16:25-0400Body tawicc856.02 cmLisa Aichholz INTERFACE DEVELOPER-C Work Phone: [facility]09-29-2025 16:25-0400 Body mass index (BMI) [Ratio]34.2 kg/m2Li Aichholz INTERFACE DEVELOPER-C Work Phone: [facility]09-29-2025 16:25-0400 Body iblyezhhkvk23.5 [degF]Tonyakatja Gundersonhholz INTERFACE DEVELOPER-C Work Phone: 1([phone])204-[address] [place], [place] 9962209-29-2025 16:25-0400 Body evfiik82.77 kgLi Aichholz INTERFACE DEVELOPER-C Work Phone: [facility]09-29-2025 16:25-0400 Diastolic blood mm[Hg]Tonya Aichholz INTERFACE DEVELOPER-C Work Phone: [phone]09-29-2025 16:25-0400 Heart rate65 /minLisa Aichholz INTERFACE DEVELOPER-C Work Phone: 1(447)539-[address] [place], [place] 9962209-29-2025 16:25-0400 Respiratory rate22 /minLisa Aichholz INTERFACE DEVELOPER-C Work Phone: [facility]09-29-2025 16:25-0400 SaO2% (BldA) [Mass fraction]95 %Tonya Aichholz INTERFACE DEVELOPER-C Work Phone: [facility]09-29-2025 16:25-0400 Systolic blood epzeytaw876 mm[Hg]Tonya Neptalihholz INTERFACE DEVELOPER-C Work Phone: 1(603)049-[address] [place], [place] 9962209-22-2025 11:02-0400 Body mass index (BMI) [Ratio]30.06 kg/l9Oxncghreece Lemus APRN-COLLECTION SUPPORT SPECIALIST Work Phone: [phone]09-22-2025 11:02-0400Body uyxzmktoubf09 [degF]Felipe Lemus FINGERPRINT EXPERT-COLLECTION SUPPORT SPECIALIST Work Phone: [phone]09-22-2025 11:02-0400Body khwuoi79.09 kgDareece Lemus FINGERPRINT EXPERT-COLLECTION SUPPORT SPECIALIST Work Phone: 1(048)[facility] [place], [place] 134[address]109-22-2025 11:02-0400Diastolic blood kcbxobkd94 mm[Hg]Felipe Lemus FINGERPRINT EXPERT-COLLECTION SUPPORT SPECIALIST Work Phone: 1(189)[facility] [place], [place] 134[address]109-22-2025 11:02-0400Heart rate 62 /Johnna Lemus FINGERPRINT EXPERT-COLLECTION SUPPORT SPECIALIST Work Phone: 1(468)[facility] [place], [place] 134[address]109-22-2025 11:02-0400 Respiratory rate18 /Johnna Lemus FINGERPRINT EXPERT-COLLECTION SUPPORT SPECIALIST Work Phone: 1([phone])[facility] [place], [place] 134[address]109-22-2025 11:02-5926NpM6% (BldA) [Mass fraction]94 %Felipe Lemus FINGERPRINT EXPERT-COLLECTION SUPPORT SPECIALIST Work Phone: 1(298)[facility] [place], [place] 1346109-22-2025 11:02-0400Systolic blood wmhvtixq621 mm[Hg]Felipe Lemus FINGERPRINT EXPERT-COLLECTION SUPPORT SPECIALIST Work Phone: 1(161)[facility] [place], [place] 134[address]108-29-2025 15:33-5287FpV0% (BldA) [Mass fraction]161.0 %NA RAMANWilson Street Hospital HospitalComment on above:Performed By: #### ABG ####[facility] ([facility])[address] [place] [address] [id number] 13:44-3366WfH8% (BldA) [Mass fraction]191.0 % NA RAMANATHANZanesville City Hospital HospitalComment on above:Performed By: #### HRTN ####[facility] ([facility])[address] [place] [address] 06-13-2025 13:11-0823WrF8% (BldA) [Mass fraction]216.0 %NA RAMANWilson [facility] Hospital HospitalComment on above:Performed By: #### HRTN ####[facility] ([facility])[address] [place] [address] IZS23-45-5750 12:41-7773IiP9% (BldA) [Mass fraction]259.0 %NA [facility] HospitalComment on above:Performed By: #### HRTN ####[facility] ([facility])[address] [address] UCK76-67-1966 12:11-5846CnU0% (BldA) [Mass fraction]311.0 % NA [facility] HospitalComment on above:Performed By: #### HRTN ####[facility] ([facility])[address] [facility] [address] 06-13-2025 11:39-6005BuA2% (BldA) [Mass fraction]318.0 %NA [facility] HospitalComment on above:Performed By: #### HRTN ####[facility] ([facility])[address] [facility]abCOATESV[facility] MEDICAL CENTERJoesph [address]08-18-2025 13:44-0400Body .2 cmNA Nia WILKINS Work Phone: [phone])[address] [place], [place] 9231008-18-2025 13:44-0400Body mass index (BMI) [Ratio]29.44 kg/m2DANNY Kramer MD Work Phone: [phone])[address] [place], [place] 9231008-18-2025 13:44-0400Body ozhxtp67.28 kgDANNY Kramer MD Work Phone: [phone])[address] [place], [place] 9231008-18-2025 13:44-0400Diastolic blood mm[Hg]DANNY Kramer MD Work Phone: 1(856)[address] [place], [place] 9231008-18-2025 13:44-0400Heart rate 75 /BrandiDANNY Kramer MD Work Phone: [phone])[address] [place], [place] 9231008-18-2025 13:44-6443OzU4% (BldA) [Mass fraction]95 %DANNY Kramer MD Work Phone: 1([phone])[address] [place], [place] 9231008-18-2025 13:44-0400Systolic blood ollojmzx030 mm[Hg]DANNY Kramer MD Work Phone: [facility]08-18-2025 13:42-0400Body ihfqnw643.2 Lula Foy MD Work Phone: [phone]08-18-2025 13:42-0400Body mass index (BMI) [Ratio]29.44 kg/v4EqtwnrsyfyrSydni Foy MD Work Phone: 1(289)947-[address] [place], [place] 1346108-18-2025 13:42-0400Body wncqod47.28 kgSydni Foy MD Work Phone: 1(109)956-[address] [place], [place] 1346108-18-2025 13:42-0400Diastolic blood erbprqso26 mm[Hg]Sydni Foy MD Work Phone: 1(693)539-[address] [place], [place] 1346108-18-2025 13:42-0400Heart rate 75 /minChpage Foy MD Work Phone: 1(789)427-[address] [place], [place] 1346108-18-2025 13:42-3739UxP5% (BldA) [Mass fraction]95 %Sydni Foy MD Work Phone: 1(611)542-[address] [place], [place] 1346108-18-2025 13:42-0400Systolic blood ofnybysp808 mm[Hg]Sydni Foy MD Work Phone: [phone]07-07-2025 13:40-0400Body ufoxep803.2 cmDANNY Kramer MD Work Phone: [facility]07-07-2025 13:40-0400Body mass index (BMI) [Ratio]29.28 kg/m2DANNY Kramer MD Work Phone: [facility]07-07-2025 13:40-0400Body pcieaq00.82 kgDANNY Kramer MD Work Phone: [facility]07-07-2025 13:40-0400Diastolic blood ubzuixwa59 mm[Hg]DANNY Kramer MD Work Phone: [facility]07-07-2025 13:40-0400Heart rate 75 /BrandiDANNY Kramer MD Work Phone: [facility]07-07-2025 13:40-7775ViO5% (BldA) [Mass fraction]93 %DANNY Kramer MD Work Phone: [facility]07-07-2025 13:40-0400Systolic blood mm[Hg]DANNY Kramer MD Work Phone: [facility]06-24-2025 13:10-0400Body mass index (BMI) [Ratio]29.13 kg/m2Claudiasa Hardik INTERFACE DEVELOPER Work Phone: [facility] HealthKdeklyxgbp85-64-1053 13:10-0400Body temperature 97.81 [degF]Tonya Hardik INTERFACE DEVELOPER Work Phone: [facility] HealthVptankbuxi92-29-8840 13:10-0400Body klajxm44.37 kgLisa Dilmaz INTERFACE DEVELOPER Work Phone: [facility] HealthZperfxktzz19-33-2926 13:10-0400Diastolic blood dsiqwnhb08 mm[Hg]Tonya Hardik INTERFACE DEVELOPER Work Phone: [facility] HealthYctaydzohu40-11-8313 13:10-0400Heart rate74 /min Tonya Hardik INTERFACE DEVELOPER Work Phone: [facility] HealthHlqsikoqsx83-55-4724 13:10-0400Respiratory rate18 /minLisa Hardik INTERFACE DEVELOPER Work Phone: [facility] HealthMfiioosouz19-47-5824 13:10-5484QlI6% (BldA) [Mass fraction]95 %Tonya Hardik INTERFACE DEVELOPER Work Phone: [facility] HealthLjmofdqpsl20-35-5061 13:10-0400Systolic blood ubtbuqsi675 mm[Hg]Tonya Hardik INTERFACE DEVELOPER Work Phone: [facility] HealthHcynkkbteh42-14-3218 14:04-0400Body mass index (BMI) [Ratio]29.29 kg/m2Tonya Pereraz INTERFACE DEVELOPER Work Phone: [facility] HealthAhbypvyhsm95-40-9500 14:04-0400Body temperature 98.49 [degF]Tonya Pereraz INTERFACE DEVELOPER Work Phone: [facility] HealthStdqfczfnv12-39-9980 14:04-0400Body zzdrui10.82 kgTonya Pereraz INTERFACE DEVELOPER Work Phone: [facility] HealthJetxyhvnkh16-92-0349 14:04-0400Diastolic blood pqlqyqpg73 mm[Hg]Tonya Pereraz INTERFACE DEVELOPER Work Phone: [facility] HealthPeqfkxlcns45-58-5844 14:04-0400Heart rate75 /min Tonya Pereraz INTERFACE DEVELOPER Work Phone: [facility] HealthZevwkrajie99-49-4223 14:04-0400Respiratory rate18 /minTonya Pereraz INTERFACE DEVELOPER Work Phone: [facility] HealthUarmqfsrvk82-59-4737 14:04-1157ZjX3% (BldA) [Mass fraction]93 %Tonya Pereraz INTERFACE DEVELOPER Work Phone: [facility] HealthIsgxklprpw07-25-6117 14:04-0400Systolic blood fyvkcidh136 mm[Hg]Tonya Pereraz INTERFACE DEVELOPER Work Phone: [facility] HealthXfxousaqgi38-72-9430 14:43-0400Body jeeqdu365.2 Law Méndez APRN-COLLECTION SUPPORT SPECIALIST Work Phone: 1(762)[facility]05-08-2025 14:43-0400Body mass index (BMI) [Ratio]28.98 kg/y6QvspwJessica Méndez APRN-COLLECTION SUPPORT SPECIALIST Work Phone: 1(386)[facility]05-08-2025 14:43-0400Body lceevt56.92 kgJessica Méndez APRN-COLLECTION SUPPORT SPECIALIST Work Phone: 1(573)[facility]05-08-2025 14:43-0400Diastolic blood mm[Hg]Jessica Karin FINGERPRINT EXPERT-COLLECTION SUPPORT SPECIALIST Work Phone: 1(446)[facility] HospitalComply Serve Bxonrf75-09-5143 14:43-0400Heart rate 81 /Fernando Méndez FINGERPRINT EXPERT-COLLECTION SUPPORT SPECIALIST Work Phone: 1(307)[facility] HospitalCom[facility] Serve Rlpxid24-67-0127 14:43-0400Systolic blood tmntoyfv485 mm[Hg]Jessica Méndez FINGERPRINT EXPERT-COLLECTION SUPPORT SPECIALIST Work Phone: 1(717)[facility] HospitalCom[facility] Serve Cklzby71-69-6156 08:56-0400Body iqgzra618.2 cmKelsi Mici PA-C Work Phone: 1(258)514-[address] [place], [place] [address]Socialize Ztcpid71-60-6036 08:56-0400Body mass index (BMI) [Ratio]29.85 kg/x3Xvuxc Mici PA-C Work Phone: [phone])487-[address] [place], [place] [address] Fewxwe09-08-2864 08:56-0400Body vvyuhy61.46 kgKelsi Mici PA-C Work Phone: [phone] [place], [place] [address] Pqjfod34-69-8780 08:56-0400Diastolic blood iusswxik92 mm[Hg]Vanessa Mici PA-C Work Phone: 1(042)200-[address] [place], [place] [address]Socialize Nbzsap43-11-9095 08:56-0400Heart rate 94 /minKelsi Mici PA-C Work Phone: 1(136)520-[address] [place], [place] [address] Fjsuul98-30-8675 08:56-4742HyY9% (BldA) [Mass fraction]95 %Vanessa Mici PA-C Work Phone: 1(957)925-[address] [place], [place] [address] Rpsdtf84-42-4186 08:56-0400Systolic blood luidgiko071 mm[Hg]Vanessa Mici PA-C Work Phone: 1(053)703-[address] [place], [place] [address]Socialize Gxeqqd78-77-2086 13:59-0500Body mass index (BMI) [Ratio]30.13 kg/m2Tonya Dye INTERFACE DEVELOPER Work Phone: [facility] HealthYrjzcvsesf40-02-2003 13:59-0500Body temperature 98.1 [degF]Tonya Dye INTERFACE DEVELOPER Work Phone: 1(419)547-[address] [place], [place] [address]Kbirqbldio75-23-2386 13:59-0500Body osnpcb84.27 kgLisa Aminholz INTERFACE DEVELOPER Work Phone: [facility] HealthQxsciplpou23-53-8417 13:59-0500Diastolic blood azyqhigq31 mm[Hg]Tonya Eloisaholz INTERFACE DEVELOPER Work Phone: [facility] HealthDqetalgbpn47-56-3956 13:59-0500Heart rate78 /min Tonya Eloisaholz INTERFACE DEVELOPER Work Phone: [facility] HealthQrfqhphxti26-81-8151 13:59-0500Respiratory rate18 /minLisa Eloisaholz INTERFACE DEVELOPER Work Phone: [facility] HealthIerpzulrps87-85-6291 13:59-7473KcJ0% (BldA) [Mass fraction]96 %Tonya Eloisaholz INTERFACE DEVELOPER Work Phone: [facility] HealthBhpsebxjnb98-45-8958 13:59-0500Systolic blood klcqiijf773 mm[Hg]Tonya Eloisaholz INTERFACE DEVELOPER Work Phone: 1([phone] [place], [place] [address]Fzyiqqltkd92-25-3669 14:27-0500Body ffswaq627.2 cmLisa Neptalihholz INTERFACE DEVELOPER Work Phone: [place] [address]Kvsnilppzc82-97-8823 14:27-0500Body mass index (BMI) [Ratio]29.63 kg/m2Claudiasa Eloisaholz INTERFACE DEVELOPER Work Phone: [place] [address]Lxmhewivxw03-31-1210 14:27-0500Body temperature 98.71 [degF]Tonya Eloisaholz INTERFACE DEVELOPER Work Phone: [place] [address]Oextxdeicc40-03-0540 14:27-0500Body .82 kgLisa Neptalihholz INTERFACE DEVELOPER Work Phone: [place] [address]Envhsdsmce88-63-4035 14:27-0500Diastolic blood eaafdoge48 mm[Hg]Tonya Neptalihholz INTERFACE DEVELOPER Work Phone: [place] [address]Ahstqedpwm08-91-7198 14:27-0500Heart rate95 /min Tonya Eloisaholz INTERFACE DEVELOPER Work Phone: [facility] HealthTfwucixytt01-14-1956 14:27-0500Respiratory rate18 /minLisa Eloisaholz INTERFACE DEVELOPER Work Phone: [place] [address]Ojxiqjssvk59-28-6619 14:27-0168NjA0% (BldA) [Mass fraction]98 %Tonya Eloisaholz INTERFACE DEVELOPER Work Phone: [facility] HealthApvvihchsn55-25-8933 14:27-0500Systolic blood gjtlijnj191 mm[Hg]Tonya Neptalihholz INTERFACE DEVELOPER Work Phone: [facility] HealthWmfcmdaydw62-06-3461 13:52-0400Body ndycfa480.2 cmLisa Eloisaholz INTERFACE DEVELOPER Work Phone: [facility] HealthAhqkehshxb88-75-4007 13:52-0400Body mass index (BMI) [Ratio]28.72 kg/m2Lisa Eloisaholz INTERFACE DEVELOPER Work Phone: [facility] HealthMlkfnshzvl03-68-4231 13:52-0400Body temperature 98.49 [degF]Tonya Eloisaholz INTERFACE DEVELOPER Work Phone: [facility] [id number] 13:52-0400Body uvtwok11.19 kgLisa Eloisaholz INTERFACE DEVELOPER Work Phone: [facility] [id number] 13:52-0400Diastolic blood xbchgosf35 mm[Hg]Tonya Eloisaholz INTERFACE DEVELOPER Work Phone: [facility] [id number] 13:52-0400Heart rate96 /min Otnya Neptalihholz INTERFACE DEVELOPER Work Phone: [place] [id number] 13:52-0400Respiratory rate18 /minLisa Aichholz INTERFACE DEVELOPER Work Phone: [facility] [id number] 13:52-1270QxR3% (BldA) [Mass fraction]96 %Tonya Neptalihholz INTERFACE DEVELOPER Work Phone: [facility] [id number] 13:52-0400Systolic blood agbaxxzx751 mm[Hg]Tonya Dye INTERFACE DEVELOPER Work Phone: [facility] HealthLttfjlpicy26-36-0511 13:39-0400Body .2 Cari Dye INTERFACE DEVELOPER Work Phone: [facility] HealthLlkzlrvlmc20-53-2584 13:39-0400Body mass index (BMI) [Ratio]28.63 kg/m2Claudiasa Eloisabrett INTERFACE DEVELOPER Work Phone: [facility] HealthTjtqekdzvm74-34-6871 13:39-0400Body temperature 98.1 [degF]Tonya Dye INTERFACE DEVELOPER Work Phone: [facility] HealthGsdrspqfag25-47-6927 13:39-0400Body .92 kgTonya Dye INTERFACE DEVELOPER Work Phone: [facility] HealthMryfcifivm37-41-5549 13:39-0400Diastolic blood mm[Hg]Tonya Dye INTERFACE DEVELOPER Work Phone: [facility] HealthXolqchxkto48-94-2952 13:39-0400Heart rate75 /min Tonya Dye INTERFACE DEVELOPER Work Phone: [facility] HealthFfzjoludxk05-15-0516 13:39-0400Respiratory rate18 /minLisa Dye INTERFACE DEVELOPER Work Phone: [facility] HealthQspxkqirph45-44-9018 13:39-1893UuL4% (BldA) [Mass fraction]97 %Tonya Aminbertt INTERFACE DEVELOPER Work Phone: [facility] HealthKcefrlpfle09-18-3256 13:39-0400Systolic blood pnlsoflq862 mm[Hg]Tonya Aminbrett INTERFACE DEVELOPER Work Phone: [facility] HealthDwuykywjyd24-35-6010 11:57-0400Body ojcdkm857.2 Mora Law MD Work Phone: [facility]07-26-2024 11:57-0400Body mass index (BMI) [Ratio]28.51 kg/x3SsrdwvShen Law MD Work Phone: [facility]07-26-2024 11:57-0400Body .56 kgShen Law MD Work Phone: [phone]-[facility] DiagnosticsKer[facility] HospitalSocialize Ifugjh62-39-1337 11:57-0400Diastolic blood ohujymme73 mm[Hg]Shen Law MD Work Phone: [phone])024-[address] [place], [place] [address]Socialize Psknbo22-52-8679 11:57-0400Heart rate 80 /minShen Law MD Work Phone: [phone] DiagnosticsKerbs [facility] HospitalSocialize Mcpcbx35-76-0659 11:57-6456UpE3% (BldA) [Mass fraction]96 %Shen Law MD Work Phone: [phone] DiagnosticsKer[facility] HospitalSocialize Dxzqco10-81-5063 11:57-0400Systolic blood upzxfilw414 mm[Hg]Shen Law MD Work Phone: [phone])[address]Social[address] Vkhyli61-03-3063 13:55-0400Body icgqws602.2 cmRskye Siu MD Work Phone: [phone] [address] StreetSocial[address] Mukucj08-59-6280 13:55-0400Body mass index (BMI) [Ratio]27.72 kg/q2OnzfttRonnell Siu MD Work Phone: [phone] [address]Social[address] Ugldzu46-49-8245 13:55-0400Body .29 kgRonnell Siu MD Work Phone: [phone] [address]Social[address] Qgrwgx32-08-1338 13:55-0400Diastolic blood ceidrsio64 mm[Hg]Ronnell Siu MD Work Phone: [phone] [address] StreetSocialize Iajbzf77-37-5127 13:55-0400Heart rate 93 /minRonnell Siu MD Work Phone: [phone] DiagnosticsKer[facility] HospitalSocialize Wsjhqc88-66-8076 13:55-4099RoM1% (BldA) [Mass fraction]96 %Ronnell Siu MD Work Phone: [phone])813-[facility] DiagnosticsKer[facility] HospitalSocialize Zqtkwn51-96-4104 13:55-0400Systolic blood aaiylnqi273 mm[Hg]Ronnell Siu MD Work Phone: [facility]04-25-2024 10:02-0400Body .2 cmYaneli Howell MD Work Phone: 1(340)[facility]04-25-2024 10:02-0400Body mass index (BMI) [Ratio]28.66 kg/l9IobljhmYaneli Howell MD Work Phone: 1(117)[facility]04-25-2024 10:02-0400Body rszhfi76.01 kgMojacklyn Howell MD Work Phone: 1([phone])[facility]04-25-2024 10:02-0400Diastolic blood yikhntba32 mm[Hg]Yaneli Howell MD Work Phone: 1(261)[facility]04-25-2024 10:02-0400Heart rate 76 /minMojacklyn Howell MD Work Phone: 1(437)[facility]04-25-2024 10:02-0400Systolic blood magvgets589 mm[Hg]Yaneli Howell MD Work Phone: 1(227)[facility]02-14-2024 15:28-0500Body unwmbf243.2 Dillonisa Hardik INTERFACE DEVELOPER Work Phone: [facility] HealthOgtircrqnc88-28-6264 15:28-0500Body mass index (BMI) [Ratio]28.54 kg/m2Claudiasa Hardik INTERFACE DEVELOPER Work Phone: [facility] HealthTttycgvtik45-01-2788 15:28-0500Body temperature 97.11 [degF]Tonya Hardik INTERFACE DEVELOPER Work Phone: [facility] HealthXsunbrlfip14-84-4842 15:28-0500Body uhjvtt39.64 kgLisa Hardik INTERFACE DEVELOPER Work Phone: [facility] HealthEpcadgqhhh77-08-8463 15:28-0500Diastolic blood phltmfte00 mm[Hg]Tonya Hardik INTERFACE DEVELOPER Work Phone: [facility] HealthMxmcudxelc00-12-6801 15:28-0500Heart rate99 /min Tonya Hardik INTERFACE DEVELOPER Work Phone: noCliqset Olrcqibbue35-54-0989 15:28-0500Respiratory rate20 /minTonya Dye INTERFACE DEVELOPER Work Phone: noSSM RehabWztowhujxu94-65-7205 15:28-4586MmO5% (BldA) [Mass fraction]97 %Tonya Dye INTERFACE DEVELOPER Work Phone: noCliqset Edrmfetosh39-27-7621 15:28-0500Systolic blood chytzxus961 mm[Hg]Tonya Dye INTERFACE DEVELOPER Work Phone: noSSM RehabTnsfstzlpk00-08-7167 14:47-0500Blood Pressure LocationMichael NILL [facility] Mzaexlkp07-37-9123 14:47-0500Diastolic blood vdyhjgdy43 mm[Hg]Bernadine NILL [facility] Izgeyiav43-30-8330 14:47-0500Heart rate 76 /minMichael NILL [facility]11-15-2022 14:47-0500 Respiratory rate16 /minMichael NILL [facility]11-15-2022 14:47-0500Systolic blood vneppojo434 mm[Hg]Bernadine NILL [facility]11-04-2021 14:30-0400Body .18 cmThomas Olexa Other [employer] Other 11-04-2021 14:30-0400Body mass index (BMI) [Ratio] 31.04 kg/v8Wlhavr Olexa Other [employer] Other 11-04-2021 14:30-0400Body .9 kgThomas Olexa Other [employer] Other 10-14-2021 14:30-0400Body .18 cmTarmen Olexa Other [employer] Other 10-14-2021 14:30-0400Body mass index (BMI) [Ratio] 31.32 kg/m8Eplsml Olexa Other [employer] Other 10-14-2021 14:30-0400Body boryjg83.72 kgThomas Olexa Other [employer] Other Encounters Encounter DateEncounter TypeCare ProviderFacilityStart: 08-15-2025 End: 58-14-6143Wikfhsytv [facility] Management Work Phone: [phone] - Pharmacy Medication ManagementStart: 08-13-2025 End: 55-52-6147sstjmxildoUhpt J Aichholz NP-C Work Phone: -[facility] ClydeStart: 08-13-2025 End: 44-25-0053Duwnxam encounter procedureTonya Dye NP-C-[facility] [place] Work Phone: Start: 08-12-2025 End: 42-64-2198WgbwshErqzlg D Grande MD Work Phone: [facility] - Pharmacy Medication ManagementComment on above:S/P CABG (coronary artery bypass graft); S/P AVR (aortic valve replacement)Start: 08-11-2025 End: 31-52-8668Ybnnio-up encounterMoses Taylor Hospitalm [address] [place] [address] - Pharmacy Medication ManagementComment on above:S/P CABG (coronary artery bypass graft) (Primary Dx); S/P AVR (aortic valve replacement)Start: 08-11-2025 End: 72-03-1519sgvckkhtalNVHVRTKRS PHARMACY MEDICATION MANAGEMENTOhio State Health Systemtart: 08-05-2025 End: 52-96-3952Pjmbip-up encounterTung Sommers [facility] Physicians CardiologyComment on above:Echo complete W/O contrastStart: 08-05-2025 End: 01-48-4954hmihlhjpwfWYDHAXQIMWB J RIORDANProOur Lady Of [facility] - [facility] HospitalStart: 08-04-2025 End: 71-60-1759cjkrafudgyECCOM L DEBENEDETTIMercy Health St. [facility] HospitalStart: 07-28-2025 End: 65-47-4887Vnnpjf-up encounter[address] - Pharmacy Medication ManagementComment on above:S/P CABG (coronary artery bypass graft) (Primary Dx); S/P AVR (aortic valve replacement)Start: 07-28-2025 End: 23-98-4474zvktzeexsiNQWYDZREX PHARMACY MEDICATION MANAGEMENTOhio State Health Systemtart: 07-22-2025 End: 64-40-4968Hzoopb-up encounter[address] - Pharmacy Medication ManagementComment on above:S/P CABG (coronary artery bypass graft) (Primary Dx); S/P AVR (aortic valve replacement)Start: 07-22-2025 End: 97-38-9669qsucomoarmXLNGKJIBG PHARMACY MEDICATION MANAGEMENTOhio State Health Systemtart: 07-15-2025 End: 88-61-5763Ocxogb-up encounter[address] - Pharmacy Medication ManagementComment on above:S/P CABG (coronary artery bypass graft) (Primary Dx); S/P AVR (aortic valve replacement)Start: 07-15-2025 End: 68-96-2513edbcwlcvhhVFUECZWQT PHARMACY MEDICATION MANAGEMENTOhio State Health Systemtart: 07-15-2025 End: 66-07-9865Inlejo outpatient visit 25 Eveline Rebolledo MD Work Phone: [facility] Physicians CardiologyComment on above: Nonrheumatic aortic (valve) stenosis (Primary Dx); ASCVD (arteriosclerotic cardiovascular disease); Mixed hyperlipidemia; Primary hypertension; Postoperative atrial fibrillation ([facility]-HCC)Start: 07-15-2025 End: 39-09-5115igfsccxnokOPCMMLio REBOLLEDOOhio State Health Systemtart: 07-14-2025 End: 51-63-1111zbzrjnnzyhNflcVahid Dye NP-C Work Phone: [facility] Work Phone: Start: 07-14-2025 End: 53-33-4382Sraiaet encounter procedureTonya Dye NP-C-[facility] Family Medicine Marco A Work Phone: Start: 07-14-2025 End: 45-21-7777Igzkflift encounterCathy [facility] - Pharmacy Medication ManagementStart: 07-09-2025 End: 57-79-6975Drnvov-up encounter[address] - Pharmacy Medication ManagementComment on above:S/P CABG (coronary artery bypass graft) (Primary Dx); S/P AVR (aortic valve replacement)Start: 07-09-2025 End: 72-64-6723oocdzgsjjiGFEIFOHDI PHARMACY MEDICATION MANAGEMENTOhio State Health Systemtart: 07-08-2025 End: 50-10-5633Kjzhblfbe encounterCathy [facility] - Pharmacy Medication ManagementStart: 07-07-2025 End: 52-90-5266Kqibgi-up encounterAdventhealth Parker Pharm[facility] Medication Management Work Phone: [facility] - Pharmacy Medication ManagementComment on above:S/P CABG (coronary artery bypass graft) (Primary Dx); S/P AVR (aortic valve replacement)Start: 07-07-2025 End: 94-29-5227Rtnekavewgung drug monitoringTt[address] Pharmacy Medication ManagementComment on above:S/P CABG (coronary artery bypass graft) (Primary Dx); S/P AVR (aortic valve replacement); Encounter for immunizationStart: 07-07-2025 End: 20-99-0488xowhcjrjyaGFNCWALQM PHARMACY MEDICATION MANAGEMENTKindred Healthcaretart: 07-07-2025 End: 14-58-0191Fulauf follow up visit related to original Daniel Lemus APRN-OLI Work Phone: [facility] Cardiothoracic Sur[facility] TowerComment on above:S/P AVR (aortic valve replacement) (Primary Dx); S/P CABG (coronary artery bypass graft)Start: 07-07-2025 End: 70-97-9315ilplunpxjqCVCN J AICHHOLZKindred Healthcaretart: 07-04-2025 End: 22-12-7250Qjiqciylgnvya procedureDasha JoséProMedica Physicians Cardiothoracic Surgeons - [facility] TowerStart: 06-30-2025 End: 94-23-1897Jahcslkci encounterAdventhealth Parker Pharmacy Medication Management Work Phone: [facility] - Pharmacy Medication ManagementStart: 13-40-7898Ndoffoj encounter procedureTonya Dye INTERFACE DEVELOPER-C Work Phone: [facility] Hospitaltart: 06-23-2025 End: 91-57-9221Gctryg-up encounterMaohiohealth berger hospitalcarmela [facility] Work Phone: [facility] - Pharmacy Medication ManagementComment on above:S/P CABG (coronary artery bypass graft) (Primary Dx); S/P AVR (aortic valve replacement)Start: 06-19-2025 End: 24-70-0427Niosui-up encounterJm Curry [facility] Work Phone: [facility] - Pharmacy Medication ManagementComment on above:S/P CABG (coronary artery bypass graft) (Primary Dx); S/P AVR (aortic valve replacement)Start: 06-18-2025 End: 38-93-1397qekmxvipzwYjzntnubibw J Riordan MD Work Phone: [facility] Physicians Cardiothoracic Surgeons [facility] TowerStart: 06-17-2025 End: 59-53-3897Danpgfgemjxli drug monitoringMattcarmela [facility] Work Phone: [facility]Pro[facility] - Pharmacy Medication ManagementComment on above:S/P CABG (coronary artery bypass graft) (Primary Dx); S/P AVR (aortic valve replacement)Start: 06-17-2025 End: 92-81-1330Wkkwustnucpvx procedureMarielena Sheridan [facility] Physicians Cardiothoracic Surgeons - [facility] TowerStart: 03-85-5240vffqkswsphIKWKKaiser [facility] Ambulatory PPGStart: 06-13-2025 End: 22-32-7723Rbsqfycygi and management of inpatientCHRISTOPHER Gail FOY [facility] HospitalStart: 06-06-2025 End: 10-43-6256kguvttpubdTQILWGRQLNC J RIOCHIQUISANProSelect [facility] HospitalStart: 06-02-2025 End: 12-81-6149Ewjudr consultation new/estab patient 80 minChrispari Foy MD Work Phone: [facility] Physicians CardiologyComment on above: Nonrheumatic aortic valve stenosis (Primary Dx)Start: 06-02-2025 End: 48-47-5138Xtyalo outpatient new 45 minutesP Cristopher Kramer MD Work Phone: [facility] Physicians CardiologyComment on above:Severe aortic valve stenosis (Primary Dx)Start: 06-02-2025 End: 57-60-1176luculvsfrwXCindy KRAMERKindred Healthcaretart: 05-30-2025 End: 29-74-3761Qwpxoi-up encounterMercy Health St. [facility] - Cardiac CathComment on above:Cardiac InvasiveStart: 05-09-2025 End: 71-18-6718foydpvwlkjECindy KRAMERZanesville City Hospital HospitalStart: 05-07-2025 End: 91-83-9369Cocefflxqdstg Cordell MARCIAL Work Phone: [facility] CardiologyStart: 05-06-2025 End: 24-54-0906Fwgwibglt encounterRashida MARCIAL Work Phone: [facility] CardiologyStart: 05-04-2025 End: 07-42-6863SczyinWoks Aichholz NP Work Phone: [phone] CWM FMComment on above:Uncontrolled type 2 diabetes mellitus with hyperglycemia (HCC)Start: 05-01-2025 End: 32-37-4121hawoaqrahfJWQRU A DOLKAYCEEZanesville City Hospital HospitalStart: 04-28-2025 End: 69-14-0699Gtnurm-up encounterMedina Baird Physicians CardiologyComment on above:Basic Metabolic Panel, CBC, CT CTA TAVRStart: 66-44-3473rmpgmtfwrpU CRISTOPHER KRAMERMercy Health St. [facility] HospitalStart: 04-24-2025 End: 93-24-5078Juwnzhlhb encounterPhylicia Magaña APRN-COLLECTION SUPPORT SPECIALIST Work Phone: [facility] Physicians General SurgeryStart: 04-22-2025 End: 61-31-8923Qfdypovum encounterGabriella Newton CMATriHealth Bethesda Butler Hospitalca Physicians General SurgeryStart: 04-21-2025 End: 40-88-2246Oswxmeffzppbn procedureRashida MARCIAL Work Phone: [facility] Physicians CardiologyComment on above:Cath InstructionsCT InstructionsStart: 04-21-2025 End: 04-22-6435Wukwiw outpatient new 45 minutesP Cristopher Kramer MD Work Phone: [facility] Physicians CardiologyComment on above: Nonrheumatic aortic valve stenosisStart: 04-21-2025 End: 08-62-8014bgomqzhwpcX CRISTOPHER KRAMERZanesville City Hospital HospitalStart: 04-16-2025 End: 82-68-7631Oejuvabswknfp procedureRashida MARCIAL Work Phone: [facility]ca Physicians CardiologyStart: 04-16-2025 End: 74-91-6748Ufnburrgi encounterTonya Dye NP Work Phone: noms CWM FMComment on above:Acute gastric ulcer without hemorrhage or perforation (Primary Dx); Abnormal computed tomography of abdomen and pelvisStart: 71-21-1504xbjvigflrc VANESSA MICIProMedica Glasco HospitalStart: 04-14-2025 End: 19-43-2316xspfenckofNQOJK MICIPrCHRISTUS Santa Rosa Hospital – Medical Centertart: 04-08-2025 End: 54-26-2908Gkapbv flowsheetLisa Aminholz INTERFACE DEVELOPER Work Phone: noms CWM FMStart: 04-08-2025 End: 39-73-8300Wudbdk flowsheetLisa Aichholz INTERFACE DEVELOPER Work Phone: noms CWM FMStart: 04-08-2025 End: 38-03-3532Jqgbdrcfu Result EncounterLisa Eloisaholz INTERFACE DEVELOPER Work Phone: noms External Department UnsolicitedStart: 04-08-2025 End: 68-20-1024Axukzu outpatient visit 25 minutesLisa Hardik INTERFACE DEVELOPER Work Phone: noms CWM FMComment on above:Abdominal pain, generalized (Primary Dx); DiverticulitisStart: 04-08-2025 End: 95-54-7254Bifwld OnlyLisa Neptalituckersyedaz INTERFACE DEVELOPER Work Phone: noms CWM FMComment on above:RUQ pain (Primary Dx) Start: 04-02-2025 End: 08-63-0913Qhkkcgkcl Result EncounterLisa Eloisaholz INTERFACE DEVELOPER Work Phone: noms External Department UnsolicitedStart: 04-02-2025 End: 76-56-7604Mwfqhnxma Result EncounterLisa Eloisaholz INTERFACE DEVELOPER Work Phone: noms External Department UnsolicitedStart: 03-27-2025 End: 26-99-3835Dqlyyl flowsheetLisa Neptalituckerholz INTERFACE DEVELOPER Work Phone: noms CWM FMStart: 03-27-2025 End: 87-11-7019Kpkcct flowsheetLisa Neptalihholz INTERFACE DEVELOPER Work Phone: noms CWM FMStart: 03-27-2025 End: 37-26-6688Cxvunlb encounter procedureLisa Eloisaholz INTERFACE DEVELOPER Work Phone: noms CWM FMComment on above:Encounter for subsequent annual wellness visit (AWV) in [...] 2 diabetes mellitus with hyperglycemia (HCC); Primary insomniaStart: 03-27-2025 End: 66-16-6842etszunwqbnZHXK AICHHOLZNot AvailableStart: 03-17-2025 End: 64-90-9828Zddsabckj encounterAngie [facility] - Vein CareStart: 03-03-2025 End: 87-84-2677PhdazdPhva Aichholz NP Work Phone: NOFY CW FMComment on above:Primary hypertension ([facility]); Allergic rhinitis, unspecified seasonality, unspecified trigger; Diabetic polyneuropathy associated with type 2 diabetes mellitus ([facility]); Uncontrolled type 2 diabetes mellitus with hyperglycemia ([facility]); PAD (peripheral artery disease) ([facility]); Acute gastritis without hemorrhage, unspecified gastritis typeUncontrolled type 2 diabetes mellitus with hyperglycemia ([facility])Start: 02-26-2025 End: 97-54-9886Mllpqnant encounterTraci Philip [facility] Physicians Jobst VascularStart: 02-20-2025 End: 66-85-4074Njqbzk outpatient visit 15 central hospitalJessica Méndez FINGERPRINT EXPERT-COLLECTION SUPPORT SPECIALIST Work Phone: [facility]ca [facility] Vascular FremontComment on above:PAD (peripheral artery disease) (Primary Dx); Claudication; History of arterial bypass of lower extremityStart: 02-20-2025 End: 52-80-1372gsstrhwolvSHXIF M KELLYTogus VA Medical Center Ambulatory PPGStart: 02-03-2025 End: 82-67-6997Cwrgfykmd Result EncounterGeneric External Data ProviderNOMS External Department UnsolicitedStart: 02-03-2025 End: 50-33-3389Mzhzdvyej Result EncounterGeneric External Data ProviderNOMS External Department UnsolicitedStart: 01-29-2025 End: 54-63-0435QnpitlRltj Aichholz INTERFACE DEVELOPER Work Phone: noms CWM FMComment on above:Acute non-recurrent sinusitis of other sinus (Primary Dx)Start: 01-16-2025 End: 95-44-3836Rdzbouyqq encounterMojacklyn Hwoell MD Work Phone: [facility] Jobst VascularStart: 01-13-2025 End: 44-03-9030Nmkkiv outpatient visit 25 minutesKel Mici PA-C Work Phone: [facility] CardiologyComment on above: Moderate aortic valve stenosis (Primary Dx); Mixed hyperlipidemiaStart: 01-13-2025 End: 84-07-6188unrdwwyuacEZPYU MICIProMedica Glasco HospitalStart: 01-10-2025 End: 65-48-3999Olexmqzof encounterAmy ElysiaProMedica Physicians Cardiology Start: 11-20-2024 End: 08-39-5879Ftyhmu flowsDipesh Dye INTERFACE DEVELOPER Work Phone: noms CWM FMStart: 11-20-2024 End: 20-90-8750Rlpeqy Du Dye INTERFACE DEVELOPER Work Phone: noms CWM FMStart: 11-20-2024 End: 01-60-5839Wlumbw outpatient visit 25 minutesLisa Hardik INTERFACE DEVELOPER Work Phone: NOMS CWM FMComment on above:Uncontrolled type 2 diabetes mellitus with hyperglycemia (CMS/HCC) [...] gangrene, without long-term current use of insulin ([facility]); Overweight (BMI 25.0-29.9); Type 2 diabetes mellitus with hyperglycemia, without long-term current use of insulin ([facility]); Mixed hyperlipidemia ([facility]); Tobacco user; Allergic rhinitis, unspecified seasonality, unspecified trigger; Diabetic polyneuropathy associated with type 2 diabetes mellitus ([facility]); Acute gastritis without hemorrhage, unspecified gastritis typeStart: 11-20-2024 End: 00-31-8931pbqkfwrouqTHTM AICHHOLZNot AvailableStart: 08-22-2024 End: 27-56-5570Olkbdgtya Result EncounterLisa Dilmaz INTERFACE DEVELOPER Work Phone: noms External Department UnsolicitedStart: 08-22-2024 End: 04-38-7769Dhlcnurbw Result EncounterLisa Neptalituckerholz INTERFACE DEVELOPER Work Phone: noms External Department UnsolicitedStart: 08-20-2024 End: 10-53-3815Znxpgl outpatient visit 25 minutesTonya Dye INTERFACE DEVELOPER Work Phone: noms CWM FMComment on above:Type 2 diabetes mellitus without complication, without long-term current use of insulin ([facility]) (P rimary Dx); Primary hypertension ([facility]); PAD (peripheral artery disease) ([facility]); Overweight (BMI 25.0-29.9); Diabetic polyneuropathy associated with type 2 diabetes mellitus ([facility]); Tobacco user; Hemorrhage due to aspirin therapy; Benign prostatic hyperplasia (BPH) with straining on urination; Diverticulitis; Bilateral carotid bruitsStart: 08-20-2024 End: 36-69-1053Htikpu flowsheetLisa Neptalihholz INTERFACE DEVELOPER Work Phone: noms CWM FMStart: 08-20-2024 End: 06-34-0501Fgwyht flowsheetLisa Aichholz INTERFACE DEVELOPER Work Phone: noms CWM FMStart: 08-20-2024 End: 92-71-3439zdgnsyppitZBCM AICHHOLZNot AvailableStart: 07-22-2024 End: 79-28-1925Emqbts flowsheetLisa Aichholz INTERFACE DEVELOPER Work Phone: noms CWM FMStart: 07-22-2024 End: 00-19-1051Ejrkpd flowsheetLisa Aichholz INTERFACE DEVELOPER Work Phone: noms CWM FMStart: 07-22-2024 End: 87-49-4661Cjbulg outpatient visit 25 minutesLisa Aichholz INTERFACE DEVELOPER Work Phone: NOZI CWM FMComment on above:Acute gastritis without hemorrhage, unspecified gastritis type (Primary Dx); Overweight (BMI 25.0-29.9); Primary hypertension (CMS/HCC); Uncontrolled type 2 diabetes mellitus with hyperglycemia (CMS/HCC); PAD (peripheral artery disease) (CMS/HCC); Benign prostatic hyperplasia (BPH) with straining on urination; Diabetic polyneuropathy associated with type 2 diabetes mellitus (CMS/HCC)Start: 07-22-2024 End: 71-05-0039sczldnmxvjMMSI AICHHOLZNot AvailableStart: 06-24-2024 End: 70-63-7193Jijegrhxj Result EncounterLisa Aichholz INTERFACE DEVELOPER Work Phone: noms External Department UnsolicitedStart: 06-24-2024 End: 17-27-2294Fjgnbpzzv Result EncounterLisa Aichholz INTERFACE DEVELOPER Work Phone: noms External Department UnsolicitedStart: 06-04-2024 End: 10-57-1093Rkuxwl flowsheetLisa Aichholz INTERFACE DEVELOPER Work Phone: NOYR CWM FMStart: 06-04-2024 End: 07-14-5762Caoluo flowsheetLisa Aichholz INTERFACE DEVELOPER Work Phone: noms CWM FMStart: 06-04-2024 End: 21-07-6236Kwoviv outpatient visit 25 minutesLisa Aichholz INTERFACE DEVELOPER Work Phone: noms CWM FMComment on above:Primary hypertension (CMS/HCC) (Primary Dx); Type 2 diabetes mellitus with diabetic peripheral angiopathy without gangrene, without long-term current use of insulin ([facility]); Uncontrolled type 2 diabetes mellitus with hyperglycemia ([facility]); PAD (peripheral artery disease) ([facility]); Diabetic polyneuropathy associated with type 2 diabetes mellitus ([facility]); Heart murmur; Overweight (BMI 25.0-29.9); Tobacco user; Psoriasis ([facility])Start: 06-04-2024 End: 99-56-9401zlhlkprgdgVOKC AICHHOLZNot AvailableStart: 05-10-2024 End: 72-61-7943Yurhvl outpatient visit 15 minutesShen Law MD Work Phone: [facility] Physicians CardiologyComment on above: Primary hypertension (Primary Dx); Nonrheumatic aortic (valve) stenosisStart: 05-09-2024 End: 36-92-1511Wtobvuubh encounterDasha [facility] Physicians CardiologyStart: 04-15-2024 End: 98-16-2978Gpkipjccy encounterOmid Ricks MD Work Phone: [facility] Physicians Jobst VascularStart: 03-29-2024 End: 36-09-5289Vbplht outpatient visit 40 minutesRonnell Siu MD Work Phone: [facility] Physicians CardiologyComment on above: Primary hypertension (Primary Dx); Nonrheumatic aortic (valve) stenosis; Coronary artery disease involving rappahannock coronary artery of rappahannock heart without angina pectorisStart: 03-29-2024 End: 86-47-1079Tjwyzocup encounterWolfgang Monzon [facility] Physicians CardiologyStart: 03-28-2024 End: 43-51-4218Lnjmrryyt encounterDasha Logan [facility] Physicians CardiologyStart: 65-52-0643Lsnyxlm encounter Chantelle Dye NP Work Phone: [facility] HealthcareStart: 02-08-2024 End: 50-82-6022Gnffqu outpatient visit 25 minutesMojackyln Howell MD Work Phone: [facility] Physicians Vascular Surgery and Wound Care Comment on above:Claudication (CMS-HCC) (Primary Dx); Cigarette smoker motivated to quitStart: 02-05-2024 End: 68-43-7306Huatkfcfs Result EncounterLynn Vallecillo MD Work Phone: noms External Department UnsolicitedStart: 02-05-2024 End: 59-70-5529Xjilpssjn Result EncounterLynn Vallecillo MD Work Phone: noms External Department UnsolicitedStart: 01-23-2024 End: 20-23-8254Xbllklsqe Result EncounterGeneric External Data ProviderNOMS External Department UnsolicitedStart: 01-23-2024 End: 02-04-2543Jawzrvibx Result EncounterGeneric External Data ProviderNOMS External Department UnsolicitedStart: 12-27-2023 End: 68-76-7342ufkgiiofazPrrrDecatur Health Systems:[facility] Start: 12-20-2023 End: 89-28-6934bbrbumotfkQgggDecatur Health Systems:[facility] Start: 12-05-2023 End: 13-54-9508Shsjqxocq Result EncounterLisa Hardik INTERFACE DEVELOPER Work Phone: noms External Department UnsolicitedStart: 12-05-2023 End: 20-06-6760Tcbxbghgf Result EncounterLisa Hardik INTERFACE DEVELOPER Work Phone: noms External Department UnsolicitedStart: 11-29-2023 End: 81-64-6276Agkcox outpatient visit 25 minutesLisa Dye INTERFACE DEVELOPER Work Phone: noms CW FMComment on above:Primary hypertension (CMS/HCC) (Primary Dx); BMI 29.0-29.9,adult; Type 2 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, without long- term current use of insulin, unspecified laterality, unspecified retinopathy severity (CMS/HCC); Type 2 diabetes mellitus with diabetic neuropathy, without long-term current use of insulin (CMS/HCC); Sebaceous cyst; 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; Ageusia; Peripheral vascular disease, unspecified (I73.9)Start: 36-45-2371Mjunwc flowsheetLisa Aichholz INTERFACE DEVELOPER Work Phone: noms CWM FMStart: 73-27-2844Xviqre flowsheetLisa Aichholz INTERFACE DEVELOPER Work Phone: noms CWM FMStart: 32-08-4226Tcbywczrfykfo examination doneLisa Aichholz INTERFACE DEVELOPER Work Phone: [facility] HealthcareStart: 43-59-1709Yxibnr outpatient visit 15 minutesThomas OlexaFPG Vashti OrthopedicsStart: 10-24-2023 End: 49-36-1320bdmvnrywoyPzju J Aichholz Work Phone: [facility] Work Phone: Start: 10-24-2023 End: 46-42-9409Pdfdiiy encounter procedureLisa Aichholz Work Phone: [facility] Start: 01-31-2023 End: 05-33-5047ebisxqasakQBH TONYA AICHHOLZFacility:V3Uzndx: 01-27-2023 End: 10-61-4951mgdwsublttODD TONYA AICHHOLZFacility:N1Yvugu: 12-21-2022 End: 67-34-4422bnfppghyefRP OMID ABBASFacility:Q9Rqcty: 53-55-9726Wpsgeweyw for other preprocedural examinationMR KRISHNA VALDES .[facility] Hospitaltart: 11-18-2022 End: 59-41-9247iayqtlhlrpGF KRISHNA VALDES .Facility:D8Gzsha: 11-18-2022 End: 87-47-3052Lrpcxyjxv for other preprocedural examinationMR KRISHNA VALDES . Facility:I5Dpnzl: 10-25-2022 End: 91-54-9642tyhyhlrapwNdwcybs R NILLFacility:[facility] Centertart: 10-25-2022 End: 60-16-1138Obuwcda encounter procedureMichael R NILL General Surgery Nill/[address] Start: 10-12-2022 End: 85-47-2583ejitzrlsltAqyxppz R NILLFacility:CD:[id number]: 10-07-2022 ambulatoryCNP TONYA HARDIKFacility:K6Gvwbj: 09-22-2022 End: 90-49-2325nxnpeiqakmGHE TONYA HARDIKFacility:M2Gyjyu: 08-30-2022 End: 95-85-2457quetvngdtcYpkmzkp R NILLFacility: BellevueStart: 08-30-2022 End: 30-72-7348Redavwq encounter procedureMichael R NILL General Surgery Nill/[address] Start: 31-18-3799bifhmcsyjpDhibptt R NILLFacility:[facility] CenterevueStart: 06-21-2022 End: 30-98-7501recinliqayAZ JIIESHA ABBASFacility:G4Jmbza: 06-14-2022 End: 30-86-3008sdgwbwdungXUG TONYA HARDIKFacility:E4Moucg: 04-27-2022 End: 96-41-2640gfqxmcmnnaTC BINDU CONRADFacility:E2Zvxeg: 04-14-2022 End: 33-93-0804mddulpnxadHOF TONYA HARDIKFacility:B0Nlpht: 04-06-2022 End: 70-80-7789ehxbufnyhdXDW TONYA HARDIKFacility:Z7Xwzwf: 03-27-2022 End: 69-87-7837Skhwzeqqhb and management of inpatientDR IRENE GONZALEZFacility:H1 Start: 03-26-2022 End: 25-71-8736mdxuwxyqswVX IRENE GONZALEZFacility:Q6Uixcg: 12-16-2021 End: 56-58-2159ozacifqoelClnbwu Olexa Other [place] [employer] Other Start: 06-27-2662Ggropxxla encounterThchao OlexaFPG [facility]hti OrthopedicsStart: 12-14-2021 End: 72-30-9590dcpzgyetkhYaucgq Olexa Other [place] [employer] Other Start: 21-49-3674Jxjtfq outpatient visit 15 minutes Shen OlexaFPG [facility] BellevueStart: 47-07-7170Ptyzgzeoigiyp examination Martha Howell MD Work Phone: [phone] Work Phone: Start: 08-19-2021 End: 13-50-9465tzbejmsitfMshfbz Olexa Other [facility] [employer] Other Start: 53-36-8993Dceuan outpatient visit 10 minutes Shen OlexaFPG [facility] BellevueStart: 46-94-7191Xcwnnqymx encounter Krishna [facility] Vascular SurgeryStart: 34-53-5330Cwtlqc outpatient new 30 minutesThomas OlexaFPG [facility] [address] Procedures DateProcedureProcedure DetailPerforming ClinicianStart: 40-63-1556Ndshmxgusit timePromedica Pharmacy Medication Management Work Phone: [phone]: 92-81-2793Quovvirrffb timePromedica Pharmacy Medication Management Work Phone: [phone]: 45-55-7887Zsakwsshgpj timePromedica Pharmacy Medication Management Work Phone: [phone]: 30-31-9274Xqmcpfescnb timePromedica Pharmacy Medication Management Work Phone: Start: 90-93-4424Ulahdtcpwjq timePromedica Pharmacy Medication Management Work Phone: Start: 96-23-8664Spbptlavftr timePromedica Pharmacy Medication Management Work Phone: Start: 00-37-2192Eweotvn of coronary artery bypass graftingS/P CABG (coronary artery bypass graft)Krishna Paris [facility] Work Phone: Start: 85-39-6270Jwtsugpd screenNA NIAComment on above:Performed By: #### TSC #### [facility] ([facility]) [address] [place] [address] VIRStart: 01-89-6823Ipkyu depression screening assessment Krishna Paris [facility] Work Phone: Start: 51-24-2369Lvehxc-up visitFollow-upP CRISTOPHER KRAMERStart: 75-23-4062Vng routine ecg w/least 12 lds w/i&rP Cristopher Kramer MD Work Phone: Start: 33-72-9407QAC CBC WITH AUTO DIFFLisa Aichholz INTERFACE DEVELOPER Work Phone: Start: 76-41-7426UVA CBC WITH AUTO DIFFLisa Aichholz INTERFACE DEVELOPER Work Phone: Start: 83-20-0078Mtjmhjpcfu glycosylated g8xBbax Aichholz INTERFACE DEVELOPER Work Phone: Start: 32-56-9326IYOZTQAYX BLOOD PRESSUREGeneric External Data ProviderStart: 48-25-1860Zmushb-up visitFollow-upKEL MICIStart: 14-74-1266Punaufmikp glycosylated h4wOfto Aichholz INTERFACE DEVELOPER Work Phone: Start: 24-10-5838Niyjeh scan extracranial art compl bi studyLisa Aichholz INTERFACE DEVELOPER Work Phone: Start: 33-44-8218OJH BASIC METABOLIC PANELLisa Aichholz INTERFACE DEVELOPER Work Phone: Start: 08-75-3166BTK HEAD/BRAIN WO/W Carlos Vallecillo MD Work Phone: Start: 90-46-2471VFSVKIAXG BLOOD PRESSUREGeneric External Data ProviderStart: 60-44-7701YC SINUS WO CONLisa Aichholz INTERFACE DEVELOPER Work Phone: Start: 81-84-8427AYG HEMOGLOBIN K3EEbym Aichholz INTERFACE DEVELOPER Work Phone: Start: 33-34-6235Qgzha X-ray of bilateral elbowsTonya Dye Work Phone: Start: 88-42-2650UUY screeningCNP TONYA DYEComment on above:Performed By: #### BMP #### [facility] [address] [place] [address] Dr. Lucho De LeónStart: 55-47-1443Uwzujdmvni biopsyMichael NILL Start: 16-55-2390Wgdgbhawml of Lower Intestinal Tract, Via Natural or Artificial Opening EndoscopicEDITAP TONYA DYEStart: 03-28-2022 Inspection of Upper Intestinal Tract, Via Natural or Artificial Opening EndoscopicCNP TONYA DYEStart: 04-51-5312Pmawzirxyor of Nonautologous Red Blood Cells into Peripheral Vein, Percutaneous ApproachCNMarlene DYEStart: 90-92-3338Neaxsurztgvaus and angioplasty of common femoral arteryMichael NILL Start: 00-61-0392Kfcjuuurgkx of superficial femoral arteryMichael NILL Start: 08-59-8748DgkrjxiusliMwgj Aichholz INTERFACE DEVELOPER Work Phone: History of coronary artery bypass graftingS/P CABG (coronary artery bypass graft)Jm Curry [facility] Work Phone: [phone] of coronary artery bypass graftingS/P CABG (coronary artery bypass graft)Krishna Paris [facility] Work Phone: History of coronary artery bypass graftingS/P CABG (coronary artery bypass graft)[facility] Work Phone: History of coronary artery bypass graftingS/P CABG (coronary artery bypass graft)[facility] 1History of coronary artery bypass graftingHx of CABGTonya Dye INTERFACE DEVELOPER-C Work Phone: History of coronary artery bypass graftingHx of CABG Tonya Dye INTERFACE DEVELOPER-CHistory of coronary artery bypass graftingS/P CABG (coronary artery bypass graft)[facility] 1History of coronary artery bypass graftingS/P CABG (coronary artery bypass graft)[facility] 1History of coronary artery bypass graftingS/P CABG (coronary artery bypass graft)[facility] 1History of coronary artery bypass graftingS/P CABG (coronary artery bypass graft)P[facility] 1History of coronary artery bypass graftingHx of CABGTonya Dye INTERFACE DEVELOPER-CHistory of coronary artery bypass graftingS/P CABG (coronary artery bypass graft)[facility] Work Phone: History of coronary artery bypass graftingS/P CABG (coronary artery bypass graft)Ronnell Siu MD Work Phone: History of repair of musculotendinous cuff of shoulder Hx of rotator cuff surgeryTonya Dye INTERFACE DEVELOPER-C Work Phone: Repair of musculotendinous cuff of shoulderMichael NILL Plan of Treatment DateCare ActivityDetailAuthorStart: 82-93-1953Zsihzju CounselingTobacco CounselingFirelands Regional Medical Center SystemStart: 03-16-9317Tcfwkqa CounselingTobacco CounselingFirelands Regional Medical Center SystemStart: 32-83-7452Dakiaoyvj for malignant neoplasm of colonNOMS HealthcareStart: 24-93-0991Lhwkk BMI ScreeningAdult BMI ScreeningFirelands Regional Medical Center SystemStart: 99-42-7896Egeicj Use: Cardiovascular Statin Use: CardiovascularFirelands Regional Medical Center SystemStart: 02-09-5237Szqywm Use: DiabeticStatin Use: DiabeticFirelands Regional Medical Center SystemStart: 19-83-4172Aaogwtr ScreeningTobacco ScreeningFirelands Regional Medical Center SystemStart: 05-06-3067Rwqgo BMI ScreeningAdult BMI ScreeningFirelands Regional Medical Center SystemStart: 65-58-9560Iwqig BMI ScreeningAdult BMI ScreeningFirelands Regional Medical Center SystemStart: 87-83-0150Rzpwfd Use: CardiovascularStatin Use: CardiovascularFirelands Regional Medical Center SystemStart: 06-17-2026 Statin Use: DiabeticStatin Use: DiabeticFirelands Regional Medical Center SystemStart: 06-13-2026 Depression ScreeningDepression ScreeningFirelands Regional Medical Center SystemStart: 06-13-2026 Statin Use: CardiovascularStatin Use: CardiovascularFirelands Regional Medical Center System Start: 10-50-9717Nabquqn ScreeningTobacco ScreeningFirelands Regional Medical Center SystemStart: 61-23-7430Uixcmnr ScreeningTobacco ScreeningFirelands Regional Medical Center SystemStart: 38-54-8733Qyguz BMI ScreeningAdult BMI ScreeningFirelands Regional Medical Center SystemStart: 91-83-4653Elyjbuk ScreeningTobacco ScreeningFirelands Regional Medical Center SystemStart: 46-37-0454Ibvrn BMI ScreeningAdult BMI ScreeningFirelands Regional Medical Center SystemStart: 26-04-9889Kmrdrye ScreeningTobacco ScreeningFirelands Regional Medical Center SystemStart: 83-17-8593Untou BMI ScreeningAdult BMI ScreeningFirelands Regional Medical Center SystemStart: 03-12-0240Dyvjpzz ScreeningTobacco ScreeningFirelands Regional Medical Center SystemStart: 42-90-0048Geiuf screening for proteinDiabetes: Urine Protein ScreeningMOUNTAIN [facility]ST [facility] HealthcareStart: 04-02-2026 End: 25-77-7838Gqdzhoi encounter procedureMetroHealth [facility] Medical Centertart: 06-12-2026Medicare Annual Wellness (AWV)Medicare Annual Wellness (AWV)[facility] HealthcareStart: 57-34-7659IVQ ( or age 60+ yrs) (1 - 1-dose 75+ series) RSV ( or age 60+ yrs) (1 - 1-dose 75+ series)[facility] [employer] [facility] Start: 03-04-2026 End: 93-88-8415Tetsqet encounter procedureProMedica [facility] - VascularStart: 15-29-9980Lxbcbt Use: CardiovascularStatin Use: Cardiovascular [facility] Care Technology Systems SystemStart: 14-30-1430Xqszv BMI ScreeningAdult BMI Screening [facility] [employer] Systems SystemStart: 43-80-3381Icdfefs ScreeningTobacco Screening [facility] Hospitaltart: 02-20-2026 End: 17-84-0692SA.doppler Extremity arteries - bilateral for physiologic artery studyVas art doppler lwr bilat mult lev/PVR Vascular Ultrasound Routine Claudication ([facility]) PAD (peripheral artery disease) ([facility]) History of arterial bypass of lower extremity Expected: 02/20/2026 (Approximate), Expires: 02/20/2027ProKettering Health MiamisburgComply Serve SystemComment on above:Expected: 02/20/2026 (Approximate), Expires: 02/20/2027Start: 02-20-2026 End: 1951CR.doppler Lower extremity vessel - right for graftVas art duplex lwr graft scan right Vascular Ultrasound Routine Claudication ([facility]) PAD (peripheral artery disease) ([facility]) History of arterial bypass of lower extremity Expected: 02/20/2026 (Approximate), Expires: 02/20/2027ProOt[employer] Work Phone: Comment on above:Expected: 02/20/2026 (Approximate), Expires: 02/20/2027Start: 12-55-7693Uhtjj BMI ScreeningAdult BMI Screening [facility] [employer] Systems [facility] Hospitaltart: 20-87-6522Urqsiig ScreeningTobacco Screening [facility] [employer] Systems [facility] Hospitaltart: 78-03-6476Ukjfzcoc screeningDiabetes: Retinopathy ScreeningCarondelet HealthStart: 10-14-2025 End: 88-48-6725KKQ panel - Blood by Automated countCBC Lab Routine ASCVD (arteriosclerotic cardiovascular disease) Expected: 10/14/2025 (Approximate), Expires: 07/15/2026ProOhio State Harding HospitalComment on above:Expected: 10/14/2025 (Approximate), Expires: 07/15/2026Start: 10-14-2025 End: 63-68-0811Zhrvydzujhebb metabolic 2000 panel - Serum or PlasmaCMP Lab Routine ASCVD (arteriosclerotic cardiovascular disease) Expected: 10/14/2025 (Approximate),Expires: 07/15/2026ProBarberton Citizens Hospital SystemComment on above: Expected: 10/14/2025 (Approximate), Expires: 07/15/2026Start: 09-15-2025 End: 84-12-9241Pzpisgsvazzk / ancillary services euwfmezfpd80/01/2025 8:30 AM EST Ancillary Procedure [facility] [address] [place] [address] Kamran Rebolledo MD [address] [place] [address] [facility] Physicians CardiologyStart: 09-14-2025 End: 64-89-3383Iukrwyiq Telemetry (In Office)Wireless Telemetry (In Office) Cardiac Services Routine Postoperative atrial fibrillation ([facility])Expected: 09/14/2025, Expires: 07/15/2026Fire[facility] SystemComment on above:Expected: 09/14/2025, Expires: 07/15/2026Start: 34-27-9884Rfbfyajdgv A1c measurement Diabetes: Hemoglobin J7TNVVL HealthcareStart: 08-25-2025 End: 15-81-0446Oodffk-up prvojmsxh97/10/2025 2:00 PM EST Follow Up Anticoagulation [facility] - Pharmacy Medication Management [address] [place] [address] PxvMgzxlcProMedica Toledo Hospital - Pharmacy Medication ManagementStart: 08-11-2025 End: 58-33-7719Mrdsbb-up tgdgywfmh28/27/2025 3:00 PM EDT Follow Up Anticoagulation [facility] Medication Management [address] [place] [address] LctHsguxkProMedica Toledo Hospital - Pharmacy Medication ManagementStart: 08-05-2025 End: 28-48-4870Segibpdh Wpjejyc4808/05/2025 1:00 PM EDT Clinical Support [facility] - Cardiac Rehab [address] [place] [address] ZsvKqdvpzProMedica Toledo Hospital - Cardiac RehabStart: 08-04-2025 End: 14-48-7594Zpxnjhq encounter dqjxysrrb86/20/2025 1:00 PM EDT Appointment [facility] - Cardiovascular [address] [place] [address] Kamran Rebolledo MD [address] [place] [address] [facility] - CardiovascularStart: 07-28-2025 End: 13-76-4199Tqvfow-up khoqimgky27/13/2025 3:45 PM EDT Follow Up Anticoagulation [facility] Pharmacy Medication Management [address] [place] [address] OniNknwgfProMedica Toledo Hospital - Pharmacy Medication ManagementStart: 07-18-2025 End: 76-86-9402Sqgext-up yybkfvshn46/03/2025 3:00 PM EDT Follow Up Anticoagulation [facility] Pharmacy Medication Management [address] [place] [address] QlzYvennfTogus VA Medical Center Pharmacy Medication ManagementStart: 07-15-2025 End: 87-56-3800Gtvphv-up mrgeqwsyu36/30/2025 3:30 PM EDT Follow Up Anticoagulation [facility] Medication Management [address] [place] [address] EjeMbjciwProMedica Toledo Hospital - Pharmacy Medication ManagementStart: 07-15-2025 End: 04-10-1010Qnsp complete W/O contrastEcho complete W/O contrast Echocardiography Routine Nonrheumatic aortic (valve) stenosis Expected: 0 07/15/2025, Expires: 07/15/2026[facility] Work Phone: Comment on above:Expected: 07/15/2025, Expires: 07/15/2026Start: 07-15-2025 End: 85-19-5673Opcgfng encounter qwfjrdfaf90/30/2025 1:15 PM EDT Office Visit [facility] [address] [place] [phone] Kamran Rebolledo MD [address] [place] [address] [facility] CardiologyStart: 07-09-2025 End: 03-27-1520Jillwo-up nipwjdpog55/24/2025 2:00 PM EDT Follow Up Anticoagulation [facility] Pharmacy Medication Management [address] [place] [address] TspPhvhovAdena Health System - Pharmacy Medication ManagementStart: 07-07-2025 End: 34-99-2377Wtajbqc encounter cfflkywkl63/22/2025 11:20 AM EDT [facility] [address] [place] [address] [phone] Physicians Cardiothoracic Sur[facility] - [facility] Gardentart: 06-30-2025 End: 31-00-5511Llaqmqm encounter gnyapumnb49/15/2025 1:00 PM EDT Office Visit [facility] [address] [place] [address] Tonya Dye, SHIVAM [address] [place] [address] [facility] CWBrayan FMStart: 31-09-2697Oewlnrmyos A1c measurement Diabetes: Hemoglobin E1WOHULCarondelet HealthStart: 90-86-6749ALYRV-19 Vaccine ( season)COVID-19 Vaccine ( season)[facility] Start: 63-34-6249DWTVF-19 Vaccine ( season)COVID-19 Vaccine ( season)[facility] Hospitaltart: 11-34-5581Hyfllfyqb vaccination [facility] Hospitaltart: 06-13-2025 End: 86-32-8069Mkxolhmwm to same day surgery gjssjg9606/13/2025 7:30 AM EDT - 06/13/2025 12:30 PM EDT Surgery [facility] - Surgery [address] [place] [phone] Sydni Foy MD [address], [address] [place], [place] [id number] CORONARY ARTERY BYPASS GRAFTX3/EVH/NOHEMI/ REPAIR/REPLACE VALVE AORTICProToledo Hospital SurgeryComment on above:CORONARY ARTERY BYPASS GRAFTX3/EVH/NOHEMI/ REPAIR/REPLACE VALVE AORTICStart: 06-13-2025 End: 49-89-8710OSFWMPFI ARTERY BYPASS GRAFT REPAIR/REPLACE VALVE AORTICCORONARY ARTERY BYPASS GRAFT REPAIR/REPLACE VALVE AORTIC CORONARY ARTERY DISEASE AORTIC STENOSIS 06/13/2025 7:30 AM EDTPMary [facility] SystemStart: 06-13-2025 Subsequent hospital visit by veqrofodc36/29/2025 7:30 AM EDT Hospital Encounter [facility] Surgery [address] [place] [address] Sydni Foy MD [address] [facility] [place], [place] [address] [facility] - Surgery Start: 06-06-2025 End: 38-29-3420Naiovas encounter tpzywnkdz27/22/2025 2:45 PM EDT Appointment [facility] [address] [phone] [facility] - VascularStart: 06-06-2025 End: 98-90-4903Lczfilr encounter procedureProMedica [facility]omas [facility] - VascularStart: 06-04-2025 End: 73-62-8838Vfdqghlxd to same day surgery kqsqpc8006/04/2025 11:28 AM EDT - 06/04/2025 1:26 PM EDT Surgery [facility] - Cardiac Cath [address] [place] [address] Marlene Kramer MD [address] [place] [address] Structural Heart ProcedureProMemorial Hospital - Cardiac CathComment on above: Structural Heart ProcedureStart: 55-95-9511Kznwowfrfi hospital visit by btwofpwzv56/20/2025 11:28 AM EDT Hospital Encounter [facility] - Cardiac Cath [address] [place] [address] Marlene Kramer MD [address] [place] [address] Severe aortic valve stenosisProMemorial Hospital - Cardiac Cath Comment on above:Severe aortic valve stenosisStart: 06-04-2025 End: 94-83-1478Qcyvirq encounter qealbhwzr82/20/2025 11:00 AM EDT Appointment [facility] Echocardiogram [address] [place] [address] Marlene Kramer MD [address] [place] [address] [facility] - Echocardiogram Start: 06-02-2025 End: 49-02-2665Ofsrnvb encounter procedureProMedica Physicians CardiologyStart: 16-68-4211Viace BMI ScreeningAdult BMI ScreeningFirelands Regional Medical Center SystemStart: 53-64-2365Nnccxhz ScreeningTobacco ScreeningNovant Health Medical Park Hospitaltart: 05-09-2025 End: 98-66-5867Quffqfl encounter zfmlbyvvx93/25/2025 1:40 PM EDT Appointment [facility] - [place] [address] [place] [address] VabEufociWadley Regional Medical Center - CTStart: 05-01-2025 End: 72-34-6617Owzrfaxwj to same day surgery tpzvjh0305/01/2025 10:30 AM EDT - 05/01/2025 11:30 AM EDT Surgery [facility] - Cardiac Cath [address] [place] [phone] Miah Felix MD [address] [place] [address] Cardiac Invasive [facility] Cardiac CathComment on above:Cardiac InvasiveStart: 93-62-4249Hyvwhmxgsq hospital visit by dncsktaxs89/17/2025 10:30 AM EDT Hospital Encounter [facility] Cardiac Cath [address] [place] [address] Miah Felix MD [address] [place] [address] Severe aortic valve stenosisProToledo Hospital Cardiac CathComment on above:Severe aortic valve stenosis Start: 85-68-5678Iesel BMI ScreeningAdult BMI ScreeningTrumbull Regional Medical Center Start: 61-90-0553Ehaovmh ScreeningTobacco ScreeningNovant Health Medical Park Hospitaltart: 04-21-2025 End: 91-79-4874PQB Chest vessels and Abdominal vessels and Pelvis vessels W contrast IVCT CTA TAVR Imaging Routine Nonrheumatic aortic (valve) stenosis Expected: 04/21/2025, Expires: 04/21/2026[facility] Work Phone: Comment on above:Expected: 04/21/2025, Expires: 04/21/2026Start: 04-21-2025 End: 13-34-4121Sumjbrd encounter ykowcqgvg93/07/2025 2:00 PM EDT Office Visit [facility] Physicians Cardiology [address] [place] [address] Marlene Kramer MD [address], [place] [address] [facility] CardiologyStart: 04-14-2025 End: 79-66-2181Gflt complete W/O contrastEcho complete W/O contrast Echocardiography Routine Moderate aortic valve stenosis Expected: 04/14/2025 (Approximate), Expires: 01/13/2026[facility] Work Phone: Comment on above:Expected: 04/14/2025 (Approximate), Expires: 01/13/2026Start: 04-14-2025 End: 44-71-4530Ijbdskj encounter crrjpunpp26/30/2025 10:30 AM EDT Appointment [facility] Cardiovascular [address] [place] [phone] Vanessa Persaud PA-C [address] [place] [address] [facility] CardiovascularStart: 04-08-2025 End: 50-95-2282Zkljigm [Enzymatic activity/volume] in Serum or PlasmaAmylase Lab Routine Abdominal pain, generalized Expected: 04/08/2025 (Approximate), Expires: 04/08/2026NONC HealthcareComment on above:Expected: 04/08/2025 (Approximate), Expires: 04/08/2026Start: 04-08-2025 End: 00-39-7815YFU W Auto Differential panel - BloodCBC and differential Lab Routine Abdominal pain, generalized Expected: 04/08/2025 (Approximate), Expires: 04/08/2026[facility] Work Phone: Comment on above:Expected: 04/08/2025 (Approximate), Expires: 04/08/2026Start: 04-08-2025 End: 62-37-2340Wldedkefktbnr metabolic 2000 panel - Serum or PlasmaComprehensive metabolic panel Lab Routine Abdominal pain, generalized Expected: 04/08/2025 (Approximate), Expires: 04/08/2026NONC HealthcareComment on above:Expected: 04/08/2025 (Approximate), Expires: 04/08/2026Start: 04-08-2025 End: 90-61-4274Slocsxflpji sedimentation rateSedimentation rate, automated Lab Routine Abdominal pain, generalized Expected: 04/08/2025 (Approximate), Expires: 04/08/2026NONC HealthcareComment on above:Expected: 04/08/2025 (Approximate), Expires: 04/08/2026Start: 04-08-2025 End: 99-26-6402Ikijza [Enzymatic activity/volume] in Serum or PlasmaLipase Lab Routine Abdominal pain, generalized Expected: 04/08/2025 (Approximate), Expires: 04/08/2026NONC HealthcareComment on above:Expected: 04/08/2025 (Approximate), Expires: 04/08/2026Start: 04-08-2025 End: 51-96-5097Klwzndnnxe complete panel - UrineUrinalysis with reflex microscopic (clean catch) Lab Routine Abdominal pain, generalized Expected: 0 04/08/2025 (Approximate), Expires: 04/08/2026NONC HealthcareComment on above: Expected: 04/08/2025 (Approximate), Expires: 04/08/2026Start: 04-08-2025 End: 31-37-0724MY GallbladderUS gallbladder Imaging Routine RUQ pain Expected: 04/08/2025 (Approximate), Expires: 04/08/2026[facility] Work Phone: Comment on above:Expected: 04/08/2025 (Approximate), Expires: 04/08/2026Start: 04-08-2025 End: 76-22-5613Zynojze encounter otshroaoi50/24/2025 1:00 PM EDT Office Visit [facility] [address] [place] [address] Tonya Dye, SHIVAM [address] [place] [address] [facility] FMComment on above:ArrivedStart: 03-29-2025 Adult BMI ScreeningAdult BMI ScreeningProBarberton Citizens [facility] SystemStart: 03-29-2025 Tobacco ScreeningTobacco ScreeningProBarberton Citizens Hospital SystemStart: 03-27-2025 End: 47-12-0242JBQ W Auto Differential panel - BloodCBC and differential Lab Routine Type 2 diabetes mellitus with diabetic polyneuropathy, without long-term current use of insulin (HCC) Type 2 diabetes mellitus with diabetic peripheral angiopathy without gangrene, without long-term current use of insulin (HCC) Tobacco user Expected: 03/27/2025 (Approximate), Expires: 03/27/2026[facility] Work Phone: Comment on above:Expected: 03/27/2025 (Approximate), Expires: 03/27/2026Start: 03-27-2025 End: 12-76-7217Sbzovqsdowygi metabolic 2000 panel - Serum or PlasmaComprehensive metabolic panel Lab Routine Type 2 diabetes mellitus with diabetic polyneuropathy, without long-term current use of insulin (HCC) Diastolic dysfunction Primary hypertension Type 2 diabetes mellitus with diabetic peripheral angiopathy without gangrene, without long-term current use of insulin (HCC) Type 2 diabetes mellitus with hyperglycemia, without long-term current use of insulin (HCC) Mixed hyperlipidemia Expected: 03/27/2025 (Approximate), Expires: 03/27/2026[facility] HealthcareComment on above:Expected: 03/27/2025 (Approximate), Expires: 03/27/2026Start: 03-27-2025 End: 30-84-9665Lnkwn 1996 panel - Serum or PlasmaLipid panel Lab Routine Type 2 diabetes mellitus with diabetic peripheral angiopathy without gangrene, without long-term current use of insulin (HCC) Type 2 diabetes mellitus with hyperglycemia, without long-term current use of insulin (HCC) Mixed hyperlipidemia Expected: 03/27/2025 (Approximate), Expires: 03/27/2026[facility] HealthcareComment on above:Expected: 03/27/2025 (Approximate), Expires: 03/27/2026Start: 03-27-2025 End: 40-09-4807Ybksegjpfbcd/Creatinine panel in random UrineMicroalbumin / creatinine, urine ratio Lab Routine Type 2 diabetes mellitus with diabetic polyneuropathy, without long-term current use of insulin (HCC) Primary hypertension Type 2 diabetes mellitus with diabetic peripheral angiopathy without gangrene, without long-term current use of insulin (HCC)Type 2 diabetes mellitus with hyperglycemia, without long-term current use of insulin (HCC) Expected: 03/27/2025 (Approximate), Expires: 03/27/2026[facility] HealthcareComment on above:Expected: 03/27/2025 (Approximate), Expires: 03/27/2026Start: 03-27-2025 End: 85-77-9157Wvitnnq encounter procedureNOMS [facility] FMComment on above:Type 2 diabetes mellitus with diabetic polyneuropathy, without [...] hyperlipidemia ; Tobacco user; Screening for prostate cancerStart: 03-27-2025 End: 52-06-9750Ewzxdkby specific Ag [Mass/volume] in Serum or PlasmaPSA Lab Routine Screening for prostate cancer Expected: 03/27/2025 (Approximate), Expires: 03/27/2026NONC HealthcareComment on above:Expected: 03/27/2025 (Approximate), Expires: 03/27/2026Start: 03-27-2025 End: 30-45-0004Jqgaxsygwr complete panel - UrineUrinalysis with reflex microscopic (clean catch) Lab Routine Type 2 diabetes mellitus with diabetic polyneuropathy, without long-term current use of insulin (HCC) Primary hypertension Type 2 diabetesmellitus with diabetic peripheral angiopathy without gangrene, without long-term current use of insulin (HCC) Type 2 diabetes mellitus with hyperglycemia, without long-term current use of insulin (HCC) Tobacco user Expected: 03/27/2025 (Approximate), Expires: 03/27/2026[facility] HealthcareComment on above:Expected: 03/27/2025 (Approximate), Expires: 03/27/2026Start: 47-38-2655Vmyxl screening for proteinDiabetes: Urine Protein ScreeningMOUNTAIN WEST [facility]ICAL [facility] HealthcareStart: 02-26-2025 End: 90-61-9346Mupruja encounter /14/2025 2:20 PM EDT Office Visit [facility] [address] [place] [address] Tonya Dye NP [address] [place] [address] GEENA OLSON FMStart: 05-14-2025Medicare Annual Wellness (AWV) Medicare Annual Wellness (AWV)[facility]OM HealthcareStart: 02-20-2025 End: 94-93-3338Zhxedix encounter procedureProMedica Physicians Vascular Surgery and Wound CareStart: 52-76-4302Creeaechqb A1c measurementDiabetes: Hemoglobin G8QGHYM HealthcareStart: 77-00-8531Bcrbr BMI ScreeningAdult BMI Screening [facility] SystemStart: 09-65-0805Aktgxmw ScreeningTobacco Screening [facility] SystemStart: 01-13-2025 End: 93-55-5549Mfcpift encounter mmfrpxixj89/31/2025 9:00 AM EDT Office Visit [facility] [address] [place] [address] Vanessa Persaud PA-C [address] [place] [address] [facility] CardiologyStart: 18-08-6751PAMIG- 19 Vaccine ( season)COVID-19 Vaccine ( season)[facility] SystemStart: 53-58-1530Ftejawyz screeningDiabetes: Retinopathy Screening [facility] HealthcareStart: 11-20-2024 End: 10-67-6445Wdanrqz encounter nyyvegwmq11/05/2025 2:00 PM EST Office Visit [facility] [address] [place] [address] Tonya Dye, SHIVAM [address] [place] [address] Primary hypertension (CMS/HCC) (Primary Dx); Type 2 diabetes mellitus with diabetic peripheral angiopathy without gangrene (CMS/HCC); Type 2 diabetes mellitus with unspecified diabetic retinopathy without macular edema (CMS/HCC); Heart failure, unspecified (CMS/HCC); Type 2 diabetes mellitus with h yperglycemia (CMS/HCC); Type 2 diabetes mellitus with diabetic polyneuropathy (CMS/HCC); PAD (peripheral artery disease) ([facility]/HCC); Type 2 diabetes mellitus with diabetic peripheral angiopathy without gangrene, without long-term current use of insulin ([facility]); Overweight (BMI 25.0-29.9); Type 2 diabetes mellitus with hyperglycemia, without long-term current use of insulin ([facility]/HCC); Mixed hyperlipidemia ([facility]); Tobacco userNOMS [facility] FMComment on above:Primary hypertension ([facility]/HCC) (Primary Dx); Type 2 diabetes mellitus with diabetic peripheral angiopathy without gangrene ([facility]/HCC); Type 2 diabetes mellitus with unspecified diabetic retinopathy without macular edema ([facility]); Heart failure, unspecified ([facility]); Type 2 diabetes mellitus with hyperglycemia ([facility]); Type 2 diabetes mellitus with diabetic polyneuropathy ([facility]); PAD (peripheral artery disease) ([facility]); Type 2 diabetes mellitus with diabetic peripheral angiopathy without gangrene, without long-term current use of insulin ([facility]); Overweight (BMI 25.0-29.9); Type 2 diabetes mellitus with hyperglycemia, without long-term current use of insulin ([facility]); Mixed hyperlipidemia ([facility]); Tobacco userStart: 00-64-1040Qyiwnlhnzr A1c measurementDiabetes: Hemoglobin A1C [facility] HealthStart: 09-04-2024 End: 01-67-4497Cxdgmni encounter tzoxplvdl12/20/2024 1:00 PM EST Office Visit [facility] [address] [place] [address] Tonya Dye NP [address] [place] [address] [facility] FMStart: 08-20-2024 End: 92-51-9055Vnbtyel encounter procedureNOMS [facility] FMComment on above:Primary hypertension ([facility]/HCC) (Primary Dx); PAD (peripheral artery disease) ([facility]); Overweight (BMI 25.0-29.9); Diabetic polyneuropathy associated with type 2 diabetes mellitus ([facility]); Type 2 diabetes mellitus without complication, without long-term current use of insulin ([facility] Tobacco userStart: 08-20-2024 End: 80-04-4293ZM.doppler Carotid arteries - bilateralVascular US carotid artery duplex bilateral Imaging Routine PAD (peripheral artery disease) ([facility]) Type 2 diabetes mellitus without complication, without long-term current use of insulin ([facility])Bilateral carotid bruits Expected: 08/20/2024 (Approximate), Expires: 08/20/2025[facility] Work Phone: Comment on above:Expected: 08/20/2024 (Approximate), Expires: 08/20/2025Start: 04-66-8540Ntaqshyxu vaccinationInfluenza Vaccine (#1) [facility] HealthcareComment on above:Postponed from 06/16/2024 (Patient Does Not Have Time)Start: 07-22-2024 End: 71-13-7157Mbmngcx encounter yrcywuaem53/07/2024 1:40 PM EDT Office Visit [facility] [address] [place] [address] Tonya Dye, SHIVAM [address] [place] [address] [facility] FMComment on above:ArrivedStart: 06-16-2024 Influenza vaccinationMOUNTAIN WEST [facility]ICAL [facility]ENTER HealthcareStart: 25-05-2951Mtdxvylkre A1c measurement Diabetes: Hemoglobin K3MEOTW HealthcareStart: 06-04-2024 End: 23-78-8912Yidxn metabolic 1998 panel - Serum or PlasmaBasic metabolic panel Lab Routine Primary hypertension ([facility]) Type 2 diabetes mellitus with diabe tic peripheral angiopathy without gangrene, without long-term current use of insulin ([facility]) Expected: 06/04/2024 (Approximate), Expires: 06/04/2025NONC HealthcareComment on above:Expected: 06/04/2024 (Approximate), Expires: 06/04/2025Start: 06-04-2024 End: 07-74-3428Noforpdexi A1c/Hemoglobin.total in BloodHemoglobin A1c Lab Routine Type 2 diabetes mellitus with diabetic peripheral angiopathy without gangrene, without long-term current use of insulin (CMS/HCC) Expected: 06/04/2024 (Approximate), Expires: 06/04/2025[facility] Work Phone: Comment on above:Expected: 06/04/2024 (Approximate), Expires: 06/04/2025Start: 06-04-2024 End: 99-14-8222Ikssfra encounter stdhqsaoa40/20/2024 1:20 PM EDT Office Visit [facility] [address] [place] [address] Tonya Dye NP [address] [place] [address] Primary hypertension (CMS/HCC) (Primary Dx); Type 2 diabetes mellitus with diabetic peripheral angiopathy without gangrene, without long-term current use of insulin (CMS/HCC); Uncontrolled type 2 diabetes mellitus with hyperglycemia (CMS/HCC); PAD (peripheral artery disease) (CMS/HCC)[facility] Comment on above:Primary hypertension (CMS/HCC) (Primary Dx); Type 2 diabetes mellitus with diabetic peripheral angiopathy without gangrene, without long-term current use of insulin (CMS/HCC); Uncontrolled type 2 diabetes mellitus with hyperglycemia (CMS/HCC); PAD (peripheral artery disease) (CMS/HCC)Start: 05-10-2024 End: 03-33-5956Nhdsmia encounter quovltmkf01/26/2024 12:30 PM EDT [facility] [address] [place] [address] Shen Law MD [address] [place] [facility] [place], [place] [facility] CardiologyStart: 04-29-2024 End: 16-68-4207Ftrapfi encounter wnvgeenlt56/15/2024 11:00 AM EDT Appointment [facility] - Echocardiogram [address] [place] [address] Ronnell Siu MD [address] [place] [address] See Mike MD [address] [place] [address] [facility] - EchocardiogramStart: 03-29-2024 End: 41-85-4556Bskulel encounter lgygqhroo00/14/2024 2:30 PM EDT Office Visit [facility] [address] [place] [address] Ronnell Siu MD [address] [place] [address] [facility] CardiologyStart: 03-29-2024 End: 45-55-2701ZV Heart TransesophagealEcho NOHEMI Echocardiography Routine Nonrheumatic aortic (valve) stenosis Expected: 03/29/2024, Expires: 03/29/2025 [facility] Work Phone: Comment on above:Expected: 03/29/2024, Expires: 03/29/2025Start: 02-27-2024 End: 48-55-0600Auqptyw encounter mnftpxpbo72/14/2024 3:00 PM EDT Office Visit [facility] [address] [place] [address] Tonya Dye NP [address] [place] [address] [facility] FMStart: 02-08-2024 End: 76-52-8682FW.doppler Extremity arteries - bilateral for physiologic artery studyVas art doppler lwr bilat mult lev/PVR Vascular Ultrasound Routine Claudication ([facility] Cigarettesmoker motivated to quit Expected: 02/08/2024, Expires: 02/07/2025[facility] Work Phone: Comment on above:Expected: 02/08/2024, Expires: 02/07/2025Start: 02-08-2024 End: 12-81-3476II.doppler Lower extremity artery - rightVas art duplex lwr single right Vascular Ultrasound Routine Claudication ([facility]) Cigarette smoker motivated to quit Expected: 02/08/2024, Expires: 02/07/2025[facility] SystemComment on above:Expected: 02/08/2024, Expires: 02/07/2025Start: 86-77-4182Knkup screening for proteinDiabetes: Urine Protein ScreeningCarondelet HealthStart: 98-58-3156MNMUH-19 Vaccine ()COVID-19 Vaccine ()[facility] Hospitaltart: 11-29-2023 End: 94-30-1647Bwmcntn encounter omzobboea79/14/2024 3:20 PM EST Office Visit [facility] [address] [place] [address] Tonya Dye, INTERFACE DEVELOPER [address] [place] [address] ArrivedL[facility] FMComment on above:ArrivedStart: 11-29-2023 End: 32-41-7816PT Maxillofacial region WO and W contrast IVCT SINUS WO IV CONTRAST Imaging Routine 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 [place] Expected: 11/29/2023 (Approximate), Expires: 11/29/2024[facility] HealthcareComment on above: Expected: 11/29/2023 (Approximate), Expires: 11/29/2024Start: 11-29-2023 Hemoglobin A1c measurementDiabetes: Hemoglobin X6ORFBACarondelet HealthStart: 11-29-2023 End: 85-74-9225Vqgberlghx A1c/Hemoglobin.total in BloodHemoglobin A1c Lab Routine Type 2 diabetes mellitus with diabetic neuropathy, without long-term current use of insulin ([facility]) Expected: 11/29/2023 (Approximate), Expires: 02/14/[address] [place] [address] Work Phone: Comment on above:Expected: 11/29/2023 (Approximate), Expires: 11/29/2024Start: 59-53-7423Ltcmopqm screeningDiabetes: Retinopathy ScreeningMOUNTAIN [facility]ST [facility] HealthcareStart: 02-40-6643Krjkgnnbzorvwp of varicella zoster vaccineZoster (Shingles) Vaccine (3 of 3)[facility] [employer] [facility] Hospitaltart: 80-65-9613Uojgswsnx aortic aneurysm screeningAbdominal Aortic Aneurysm (AAA) ScreenSelect [facility] Specialty [facility] [employer] [facility] Hospitaltart: 95-04-8066Oqmv Risk ScreeningFall Risk ScreeningNovant Health Medical Park Hospitaltart: 54-54-4403SGmR,Tdap and Td Vaccines (1 - Tdap)DTaP,Tdap and Td Vaccines (1 - Tdap)[facility] [employer] [facility] Hospitaltart: 67-55-3427Abrcs BMI Follow Up PlanAdult BMI Follow Up PlanNovant Health Medical Park Hospitaltart: 31-80-0325Mllabnbb foot examinationDiabetic Foot ExamProCullman [facility] [employer] [facility] Hospitaltart: 11-42-9518Zuhujvuwfl ScreeningDepression ScreeningSelect [facility] [employer] [facility] Hospitaltart: 74-20-5338Xlmrnore screeningDiabetic Ophthalmology Exam [facility] Hospitaltart: 1951Medicare Annual Wellness (AWV)Medicare Annual Wellness (AWV)[facility] HealthcareStart: 1951Medicare Annual Wellness VisitMedicare Annual Wellness VisitNovant Health Medical Park Hospitaltart: 1950 Screening for malignant neoplasm of colonMOUNTAIN WEST MEDICAL [facility]ENTER HealthcareStart: 32-36-8201Cduexx Use: CardiovascularStatin Use: CardiovascularNovant Health Medical Park Hospitaltart: 10-84-4415Rjivbms CounselingTobacco CounselingTrumbull Regional Medical Center End: 30-27-2835Tffua metabolic 2000 panel - Serum or PlasmaBasic Metabolic Panel Lab Routine Nonrheumatic aortic (valve) stenosis 1 Occurrences starting 2024 until 04/21/2026[facility] CenterComment on above:1 Occurrences starting 04/21/2025 until 04/21/2026 End: 06-12-4918NHC panel - Blood by Automated countCBC Lab Routine Nonrheumatic aortic (valve) stenosis 1 Occurrences starting 04/21/2025 until 04/21/2026 [facility] SystemComment on above:1 Occurrences starting 04/21/2025 until 04/21/2026T Abdomen and Pelvis W contrast [facility] End: 49-41-3879Ihqfp panelLipid panel Lab Routine Mixed hyperlipidemia 1 Occurrences starting 01/13/2025 until 01/13/2026ProBar[facility] SystemComment on above:1 Occurrences starting 01/13/2025 until 01/13/2026 Immunizations Immunization DateImmunizationNotesCare UhhgblwqVlsgcvwx43-71-2881Dfqvbopi trivalent influenza vaccine, adjuvanted, preservative freeKerbs Memorial Hospitalmedica Medication Management Work Phone: [phone] Medical CenterIeegki25-49-3455Irwwejyc trivalent influenza vaccine, adjuvanted, preservative freeLisa Aichholz INTERFACE DEVELOPER Work Phone: [facility] HealthMrdjusfjtd82-55-4046icrccoqyl virus vaccine, unspecified formulationMojacklyn Howell MD Work Phone: [phone] Medical CenterOnkqou17-76-4911NINHK-27 (PFIZER) 12Y and olderLisa Aichholz INTERFACE DEVELOPER-C Work Phone: [facility]10-19-2023Influenza, High-dose Seasonal, Quadrivalent, Preservative FreeLisa Aichholz INTERFACE DEVELOPER Work Phone: [facility] HealthWeomdusdqz14-46-0172jpxpnzsov virus vaccine, unspecified formulationMojacklyn Howell MD Work Phone: [phone]03-04-2023zoster vaccine recombinantLisa Aichholz INTERFACE DEVELOPER Work Phone: noSSM RehabNehfmfzncn32-88-3727rjksgy vaccine, unspecified formulationMojacklyn Howell MD Work Phone: [phone] Medical CenterPjapfq47-47-2796MCVEH-92 mRNA Bivalent Booster (Pfizer)Tonya Aichholz INTERFACE DEVELOPER-C Work Phone: [facility]10-12-2022influenza, injectable, quadrivalent, preservative freeLisa Aichholz INTERFACE DEVELOPER Work Phone: [facility] HealthQmisoeqbri91-67-0851NXGOK-28 mRNA-1273 (Moderna) Tonya Aminbrett INTERFACE DEVELOPER-C Work Phone: [facility]11-03-2021COVID-19 mRNA-1273 (Moderna)Tonya Aminbrett INTERFACE DEVELOPER-C Work Phone: [facility]10-14-2021Kenalog -40 mgThomas O[address] Other [employer] Other [id number]-91 Ad26.COV2.S (Fidbacks)Tonya Hardik Work Phone: [facility]11-23-2020 pneumococcal polysaccharide vaccine, 23 valentThomas Olexa Other [employer] Other [id number], injectable, quadrivalent, preservative freeLisa Aichholz INTERFACE DEVELOPER Work Phone: [facility] HealthYbqcvevpwx84-40-2236luapxjiqa, seasonal, injectableThomas Olexa Other [facility]10-23-2019 pneumococcal conjugate vaccine, 13 valentThomas Olexa Other [employer] Other [id number], high dose seasonal, preservative-freeLisa Aichholz INTERFACE DEVELOPER Work Phone: [facility] HealthWkuhhgzixw92-58-7948heghtz vaccine, liveLisa Aichholz INTERFACE DEVELOPER Work Phone: [facility] HealthXvtiqeidlz05-75-7592xmjzztt toxoid, adsorbedLisa Aichholz INTERFACE DEVELOPER Work Phone: [facility] Payers DatePayer CategoryPayerPolicy [id number]-jta [id number] OTHER [id number]8503-83-3860Upnrzwe Care Other (unspecified)COMMERCIAL .[id number]. Medicare1.2.840.566729.1.13.693.2.7.3.909131.21905-50-6828Joskwuh 1.2.840.650766.1.13.693.2.7.3.831453.315 [id number] 2.16840.7.635078.[id number] 2.0.6.288866.2997-10-1950 [id number] 2.0.1.869768.3.57[id number] 2..1.972509.3.57[id number] 2.16.840.1.517213.3.57[id number] 2.16.840.1.710651.3.57[id number] 2.16.840.1.426776.3.57[id number] 2.16.840.1.640053.3.579.[id number] 2..840.1.613884.3.57[id number] 2..840.1.961267.3.57[id number] 2.840.1.069014.3.57[id number] 2.840.1.453228.3.579.[id number] 2..840.1.041780.3.57[id number] 2.840.1.885928.3.57[id number] 2.840.1.193695.3.57[id number] 2.16.840.1.162697.3.579.2.71036-44-6196Amjoslk1104459 2.840.1.094433.3.579.2.63869-27-3294Uavosic9523407 2.16.840.1.203505.3.579.2.51264-58-4420Vrzevzd3476161 2.16840.1.339858.3.579.2.30836-40-7906Cgcmzji2758834 2.16.840.1.975156.3.579.2.34886-10-3096Ocdggwk65321856 2.16.840.1.333410.3.579.2.554414-37-2834Ngolwqq67951479 2.16840.1.664596.3.579.2.383549-55-2961Bcrsgmr4582088 2.16840.1.188715.3.579.2.318270-54-2491Egrlfsq8627986 2.16840.1.382490.3.579.2.673766-32-7348Dvfjarc9595972 2.840.1.709505.3.579.2.165021-56-0316Hrozcyp4210715 2.840.1.745193.3.579.2.959736-20-5759Cdjbtpa854963397 2.840.1.138814.3.579.2.836678-93-1721Erncnbz964519418 2.840.1.911384.3.579.2.122489-03-7070Wqokqmh795102986 2.840.1.502948.3.579.2.441990-74-2907Svxrygf131917380 2.840.1.143312.3.579.2.887380-51-6211Skymide404615257 2.840.1.185396.3.579.2.372720-04-5220Tiyvyse508140720 2.840.1.868485.3.579.2.791379-14-7128Vtkzzul202826297 2.840.1.116296.3.579.2.557699-21-6132Gfkxuev390587252 2.16.840.1.136445.3.579.2.900446-86-6573Ljgothr986766752 2.16.840.1.455074.3.579.2.174123-98-5913Jwpcxzl275381707 2.16840.1.022701.3.579.2.258999-44-4063Jtzvqhm225695823 2.16840.1.221886.3.579.2.768359-87-2830Xpveliw378104834 2.840.1.293653.3.579.2.240422-14-3688Ovdypgo037794645 2.840.1.327511.3.579.2.661043-57-1910Qgellww224471454 2.840.1.846189.3.579.2.104799-75-3091Lxghyve977611284 2.840.1.983655.3.579.2.476893-35-8387Pzqzrwr058651761 2.840.1.417314.3.579.2.807757-33-5468Caixqaq568685283 2.840.1.303303.3.579.2.159663-42-4092Eowniaf464352111 2.840.1.111753.3.579.2.713794-06-0261Kaakuiw992151639 2.840.1.217898.3.579.2.260858-68-5146Evoujsg575138784 2.16840.1.132776.3.579.2.949957-23-8460Daqoxkk037974267 2.840.1.358205.3.579.2.239715-25-0834Orrzhzx650823262 2..840.1.857730.3.579.2.940367-86-7915Dhknvjp045890898 2.16.840.1.644013.3.579.2.025598-15-2507Qfejyxa631172338 2..0.1.791289.3.579.2.071648-24-7398Zqpudrp468621776 2.16.840.1.925405.3.579.2.8247Resnvpm796912276 evozj6g2-ki78-0sa9-f7m8-eb9sjok4yj2bAiweiww439549855 4j56290n-0919-3w82-g835-87806o27ky2dSgkmagz69590003 2.840.1.913579.3.579.2.635Zlzzixy43551712 2.840.1.814174.3.579.2.531 Hddquvz40335605 2.0.1.235936.3.579.2.531 Social History DateTypeDetailFacilityStart: 11-26-2020 End: 48-36-6497Ywy [facility]: 72-03-4429Tapupkv smoking statusHeavy tobacco smoker (finding)[facility]Start: 88-92-8183Djtjmrb smoking statusNeverGeneral Surgery [address] Start: 63-79-6333Uujatya smoking status NHISSmoker (finding)[facility] CenterStart: 91-15-8229Pml Assigned At [facility] Hospitaltart: 10-30-2023 End: 26-29-1543Dnnpviz smoking status NHISSmokes tobacco dailyNOMS Healthcare History of tobacco useCigarette SmokerNOMS HealthcareStart: 11-26-2020 End: 89-91-2983Vretkmhwpx smoked current (pack per day) - Tbuaflij6SGDG HealthcareStart: 10-30-2023 End: 23-49-7262Lrofpfo use and exposureSmokeless tobacco non-userMOUNTAIN [facility]ST [facility] Healthcare Start: 11-29-2023 End: 98-25-3356Qlwoacw intakeLifetime non-drinker (finding)[facility] HealthStart: 40-42-6543Vrc Assigned At BirthNot on fileMOUNTAIN WEST MEDICAL CENTER HealthcareStart: 02-08-2024 End: 21-51-6543Sqzwtgakd beverage intakeEx-drinker (finding)[facility] [employer] [facility] Hospitaltart: 61-42-5598Wjytlbd Commentreports down to 10 cigarettes a day 11/25/21[facility] [employer] SystemStart: 10-19-8450XvnBfpu (finding)[facility] [employer] [facility] HospitalHas the [employer] gas, oil, or water IssueNation threatened to shut off services in your home in past 12MoNUniversity of Pittsburgh Medical Center [employer] SystemHow often to you have a drink containing alcohol?NeverSelect Medical Specialty [facility] [employer] [facility] Medical Equipment Procedure CodeEquipment CodeEquipment Original TextEquipment IdentifierDates [id number], [id number], [id number], [id number]: 09-24-2020 End: 85-69-2766Axhcliby peripheral artery stent, bare-metal ()[id number] FDAStart: 47-81-5458Obmuo Vsc 6mm 40mm 130cm Dlv Sys Tamra - [id number] FDAStart: 41-65-8756Yxpgk Aor 23mm Crp-Ed Primnt Mg Ease Thermafix Bprth Lp Stnt - [id number] - [id number]_tnxLjuyb: 06-13-2025 Goals DatePatient GoalDesired Activity/StatePersonal health goalComment on above: Evaluation of progress towards goal: patient progressing toward safe discharge. Functional Status BorxSgmikjjyrvBblvurWezsolth81-21-7385Rqbpkae Health Questionnaire 2 item (PHQ- 2) [Reported][facility] HealthYvkdvdafyo16-67-9313Vuzvoqiph depression scale (GDS).short version [facility] HospitalBubuwohuyn37-81-1511Bfcwmxr Health Questionnaire 2 item (PHQ- 2) [Reported][facility] HealthMqrgcpaqoh57-33-8613Bhtvlht Health Questionnaire 2 item (PHQ- 2) [Reported][facility] HealthZgntqyjmgu00-34-2224Uslkdwavov StatusN/AGeneral Surgery [facility] Clinical Notes 03-09-2021 to 08-15-2025 Note Date & InalBizcWjwyhoru69-34-3079 Miscellaneous Notes* Telephone Encounter - Fiona Collins - 08/15/2025 2:57 PM EDT Hiren from [facility] P:[phone] option 3 Ref# [id number]. Please call back to clarify the warfarin refill request for 2 mg sent on 08/11/25. * Telephone Encounter - Cammy Garcia PharmD - 08/15/2025 2:57 PM EDT Noted. Did call [facility] and spoke to Cecilia Schmidt (eÓtica) who states that there were two directions sent on the last rx for warfarin. New rx e-prescribed to [facility] with dosing that reflects what patient is taking at this time. documented in this encounterTr[facility]10-31-[facility]25 Telephone encounter Note* Telephone Encounter - Fiona Collins - 08/15/2025 2:57 PM EDT Hiren from [facility] P:[phone] option 3 Ref# [id number]. Please call back to clarify the warfarin refill request for 2 mg sent on 08/11/25. [facility]10-31-[facility] Telephone encounter Note* Telephone Encounter - Cammy Garcia PharmD - 08/15/2025 2:57 PM EDT Noted. Did call [facility] and spoke to Cecilia Schimdt (eÓtica) who states that there were two directions sent on the last rx for warfarin. New rx e-prescribed to [facility] with dosing that reflects what patient is taking at this time. [facility] Usmzct11-90-6550 History of Present illness Narrative* Flora Moon [facility] - 08/11/2025 3:00 PM EDT 15 minute jocd-hq-payf follow-up anticoagulation appointment. INR performed in office [...] of therapy reviewed Patient could benefit from [facility] pill packaging and patient is agreeable forreferral to be sent: No Assessment: INR is remaining stable in therapeutic range on current warfarin regimen. Trending downwith amiodarone clearance, therefore will increase additional 6% Plan: Patient instructed to increase to warfarin 3 mg Tue/Th/Sat and 2 mg AOD. Check INR in 2 week(s). Patient verbalizes understanding of anticoagulant dosing instructions and information discussed. Dosing regimen, counseling, and follow-up appointment were provided to the patient. Patient reminded to call with questions or any medication changes. Patient instructed to seek medical attention if anymajor bleeding/bleeding that persists or worsens. Flora Moon [facility] 08/11/25 1500 documented in this encounterTrumbull [facility] Medical Center10-13-2025 History of Present illness Narrative* Flora Moon [facility] - 07/28/2025 3:45 PM EDT 15 minute azyy-uw-tanf follow-up anticoagulation appointment. INR performed in office per protocol. INR 2.6 (goal range: 2.0-3.0). Patient reports: Taking warfarin dosing as documented. Missed or extra doses of warfarin: No Changes to medications: YES Stopped amiodarone ~2 weeks ago Changes to lifestyle (diet / alcohol / smoking / activity): No Recent emergency department visit / hospitalization / health changes / new contraindication to current anticoagulant: No Signs/symptoms of bruising/bleeding or clotting or any intolerable adverse events: No Upcoming procedures: No Anticoagulant prescription needed: No Seen referring provider in the last year Duration of therapy reviewed Patient could benefit from [facility] pill packaging and patient is agreeable forreferral to be sent: No Assessment: INR is remaining stable in therapeutic range on current warfarin regimen. Plan: Patient instructed to continue warfarin 3 mg Tue/Sat and 2 mg AOD. Check INR in 2 week(s). Patient verbalizes understanding of anticoagulant dosing instructions and information discussed. Dosing regimen, counseling, and follow-up appointment were provided to the patient. Patient reminded to call with questions or any medication changes. Patient instructed to seek medical attention if anymajor bleeding/bleeding that persists or worsens. Flora Moon [facility] 07/28/25 1550 documented in this encounterTrumbull [facility] Medical Center10-07-2025 History of Present illness Narrative* Flora Moon [facility] - 07/22/2025 3:45 PM EDT 15 minute yafm-fr-pkky follow-up anticoagulation appointment. INR performed in office per protocol. INR 1.8 (goal range: 2.0-3.0). Patient reports: Taking warfarin dosing as documented. Missed or extra doses of warfarin: No Changes to medications: YES Last dose of amiodarone was ~1 week Changes to lifestyle (diet / alcohol / smoking / activity): No Recent emergency department visit / hospitalization / health changes / new contraindication to current anticoagulant: No Signs/symptoms of bruising/bleeding or clotting or any intolerable adverse events: No Upcoming procedures: No Anticoagulant prescription needed: No Seen referring provider in the last year Duration of therapy reviewed Patient could benefit from [facility] pill packaging and patient is agreeable forreferral to be sent: No Assessment: INR remains low, but is improving. We will increase weekly dose 15% Plan: Patient instructed to increase to warfarin 3 mg Tue/Sat and 2 mg AOD. Check INR in 1 week(s). Patient verbalizes understanding of anticoagulant dosing instructions and information discussed. Dosing regimen, counseling, and follow-up appointment were provided to the patient. Patient reminded to call with questions or any medication changes. Patient instructed to seek medical attention if anymajor bleeding/bleeding that persists or worsens. Flora Moon RPH 07/22/25 1542 documented in this encounterTrumbull [facility] Center09-30-2025 History of Present illness Narrative* Flora Moon RPH - 07/15/2025 3:30 PM EDT 15 minute mvfw-qz-cdlj follow-up anticoagulation appointment. INR performed in office per protocol. INR 1.5 (goal range: 2.0-3.0). Patient reports: Taking warfarin dosing as documented. Missed or extra doses of warfarin: No Changes to medications: YES Will be starting Buspar Changes to lifestyle (diet / alcohol / smoking / activity): No Recent emergency department visit / hospitalization / health changes / new contraindication to current anticoagulant: No Signs/symptoms of bruising/bleeding or clotting or any intolerable adverse events: No Upcoming procedures: No Anticoagulant prescription needed: No Seen referring provider in the last year Duration of therapy reviewed Patient could benefit from [facility] pill packaging and patient is agreeable forreferral to be sent: No Assessment: INR is slowly trending up. Patient has had 11 mg in 7 days. We will target 13/7 days atnext visit for an 18% increase Plan: Patient instructed to increase to warfarin 3 mg 07/15, then 2 mg daily. Check INR in 3 day(s). Patient verbalizes understanding of anticoagulant dosing instructions and information discussed. Dosing regimen, counseling, and follow-up appointment were provided to the patient. Patient reminded to call with questions or any medication changes. Patient instructed to seek medical attention if anymajor bleeding/bleeding that persists or worsens. Flora Moon RPH 07/15/25 1526 documented in this encounterTrumbull [facility] Center09-30-2025 History of Present illness Narrative* Kamran Rebolledo MD - 07/15/2025 1:15 PM EDT Darin Gail Thacker Date of visit: 07/15/2025 Date of : 1950 Age: 75 y.o. Patient Active Problem List Diagnosis Sebaceous cyst Claudication Primary hypertension Pre-op exam Draining postoperative wound Obesity (BMI 30.0-34.9) Nonrheumatic aortic (valve) stenosis Palatal lesion Tinnitus Hearing loss Cigarette smoker motivated to quit ASCVD (arteriosclerotic cardiovascular disease) S/P CABG (coronary artery bypass graft) S/P AVR (aortic valve replacement) Mixed hyperlipidemia Postoperative atrial fibrillation ([facility]) Allergies Allergen Reactions Ciprofloxacin Hives Penicillins Trulicity [Dulaglutide] GI Disturbance Victoza 2-Bandar [Liraglutide] Current Outpatient Medications Medication Sig Dispense Refill amiodarone (PACERONE) 200 mg tablet Take 2 tablets (400 mg total) by mouth 2 (two) times a day for 4 days, THEN 1 tablet (200 mg total) daily for 30 days. 46 tablet 0 cyanocobalamin 1000 MCG tablet Take 1 tablet [...] total) in the evening. Take with meals. pioglitazone (ACTOS) 30 mg tablet Take 1 tablet (30 mg total) by mouth in the morning. tamsulosin (FLOMAX) 0.4 mg capsule,extended release 24hr Take 1 capsule (0.4 mg total) by mouth nightly. warfarin (COUMADIN) 2 mg tablet 2 milligrams p.o. daily 60 tablet 0 atorvastatin (LIPITOR) 40 mg tablet Take 1 tablet (40 mg total) by mouth nightly for 360 days. 90 tablet 3 clopidogreL (PLAVIX) 75 mg tablet Take 1 tablet (75 mg total) by mouth in the morning. 90 tablet 3 metoprolol tartrate (LOPRESSOR) 100 mg tablet Take 1 tablet (100 mg total) by mouth in the morning and 1 tablet (100 mg total) before bedtime. Do all this for 360 days. 180 tablet 3 No current facility-administered medications for this visit. Chief Complaint Patient presents with Follow-up History of Present Illness I had the opportunity to meet this 75-year-old today. He was discharged from the hospital after CABG and aortic valve replacement 06/13/2025 CV TESTING HISTORY: ECHO: Intra-operative transesophageal echocardiogram Result Date: 06/13/2025 See Anesthesia NOHEMI procedure note for findings. Echo complete W/ contrast Result Date: 04/14/2025 Left Ventricle: Left ventricle is small. Systolic function is normal with an ejection fraction of 65-70%. The quantitative EF by 2D Aguilar biplane is 67%. Grade I diastolic dysfunction (impaired relaxation) is present. Right Ventricle: Right ventricular size appears normal. Systolic function is normal. Aortic Valve: There is mild regurgitation. There is very severe stenosis. The calculated aortic valve area is 0.65 cm2. The calculated aortic valve peak gradient is 85.00 mmHg. The calculated aortic valve mean gradient is 43.00 mmHg. Echo NOHEMI Result Date: 04/29/2024 Left Ventricle: Left ventricle appears normal in size. There is moderate increased wall thickness/hypertrophy. Systolic function is normal with an ejection fraction of 60-65%. Aortic Valve: The leaflets exhibit moderately reduced excursion. The leaflets are moderately calcified. Bicuspid with fusion of the left and right coronary cusp with a raphe noted. There is echogenic density on the commissures in form of nodularity with some mobile portions. This is likely degeneration. Under the right clinical setting would worry about possibility of endocarditis. Would correlate clinically on this. There is mild regurgitation. There is moderate stenosis. The calculated aortic valve area is 1.12 cm2.The calculated aortic valve peak gradient is 47.00 mmHg. The calculated aortic valve mean gradient is 27.00 mmHg. DVI above a 0.25 Tricuspid Valve: There is trace regurgitation. Aorta: There is gradeII plaque in the aorta. STRESS: No results found. HOLTER: No results found. CARDIAC CATH: Cardiac Invasive Result Date: 05/02/2025 Essentially normal left and right heart filling pressures, mild pulmonary hypertension and normal cardiac output both by Candis and thermodilution. Multivessel coronary artery disease Recommendations: Continue aggressive risk factor modification Continue aggressive medical management Will need broader multidisciplinary discussion regarding valvular heart disease and coronary artery disease CAROTID: Vas carotid duplex bilateral Result Date: 06/06/2025 Right: Plaque with no significant ICA spectral Doppler or color flow disturbances; ICA 74/21 cm/sec. Antegrade vertebral artery flow. Left: Plaque with no significant ICA spectral Doppler or color flow disturbances; ICA 62/15 cm/sec. Antegrade vertebral artery flow. Conclusions: BILATERAL: Normal ex tracranial carotid duplex evaluation. Antegrade vertebral artery flow. Recommendations: Any questions prior to finalization, please call the reading physician during normal business hours at the phone number beside their name. Vas carotid duplex bilateral Result Date: 08/22/[address] [address] Ultrasound Report Signed Patient: DARIN THACKER MR#: [id number] : 1950 Acct:[id number] Age/Sex: 74 / M ADM Date: 08/22/24 Loc: US Attending Dr: Tonya Dye NP Ordering Physician: Tonya Dye NP Date of Service: 08/22/24 Procedure(s): US carotid duplex BI Accession Number(s): [id number] cc: Tonya Dye NP [address] [address] Patient Name: DARIN THACKER MRN: [id number] date: 1950 Sex: M Assigned Patient Location: [place] Current Patient Location: [place] Accession/Order Number: [id number] Exam Date: 08/22/2024 14:05 Report Date: 08/22/2024 17:23 At the request of: TONYA DYE Procedure: US carotid duplex BI DUPLEX ULTRASOUND EXAMINATION OF THE CAROTID ARTERIES. COMPARISON: None. HISTORY / INDICATIONS: Carotid bruit. TECHNIQUE: Bilateral common carotid arteries, extracranial internal and external carotid arteries are evaluated with shaw-scale imaging, color Doppler, and spectral analysis according to a standard protocol. ICA-CCA ratiosare calculated with payroll representative peak- systolic velocities and recorded. Vertebral arteries are evaluated [...] Left Carotid: Plaque was noted. Velocity measurements asfollows: Internal Carotid Artery 35/6 and 47/8. ICA [...] M.D. Signed By: 08/22/241725 DD/ 22 TD/TT: Senior Program Planner: CXR: X-ray chest 1 view Result Date: 06/16/2025 XR CHEST 1 VW: 06/16/2025 5:06 AM Clinical: Chest tube removal Upright portable chest is compared with 06/15/2025. Stable right central line. No pneumothorax. IMPRESSION: * Continued mostly linear lowerlobe infiltrates with probable right pleural effusion. * No pneumothorax. Finalized by Avery Velez MD on 06/16/2025 8:20 AM X-ray chest 1 view Result Date: 06/15/2025 CHEST 1 VIEW HISTORY: Status post CABG COMPARISON: 06/14/2025 IMPRESSION: * Interval removal of Vineland-Jonathan catheter with right IJ vascular sheath. Interval removal of mediastinal drains. Stable left chest tube. * Moderate bibasilar atelectasis (left greater than right), slightly increased. * No pleural effusions or pneumothorax. Finalized by Manuel Carroll MD on 06/15/2025 10:28AM X-ray chest 1 view Result Date: 06/14/2025 HISTORY: Dyspnea, post open heart COMPARISON: Chest x-ray 06/13/2025 FINDINGS: Portable AP upright view of the chest was performed during expiration. Interval discontinuation of endotracheal tube and enteric tube. Pulmonary artery catheter and large bore chest tubes are in stable position. Cardiac silhouette is unchanged. Postoperative changes compatible with valve repair. Bibasilar atelectasis isstable. No significant pleural effusion or pneumothorax. IMPRESSION: * No significant interval change post extubation. Finalized by Rogelio Chapman MD on 06/14/2025 5:38 AM X-ray chest 1 view Result Date: 06/13/2025 Clinical history: Tube/line placement post cardiac surgery. Comparisons: None Findings: AP portablesupine chest radiograph obtained 3:17 PM. Changes of cardiac surgery/valve replacement now noted. Endotracheal tube is appropriate in position terminating 4.2 cm above the level of the joel. Nasogastric tube terminates off of the radiograph in the left upper abdomen. Mediastinal drains and left-sided chest tube are present. Heart size does not appear enlarged. Bilateral perihilar subsegmental atelectasis is present. No large pleural effusion or pneumothorax on the supine radiograph. Right IJ Vineland-Jonathan catheter tip terminates in proximal right pulmonary artery. IMPRESSION: 1. Mild perihilar subsegmental atelectasis, otherwise no acute finding status post cardiac surgery as above. Finalized by Ronnell Ashton MD on 06/13/2025 3:30 PM Lipid Profile: Lab Results Component Value Date CHOLESTEROL 148 (L) 04/14/2025 Cholesterol:HDL Ratio 4.1 07/25/2018 CHOLESTEROL:HDL 3.4 04/14/2025 HDL CHOLESTEROL 44 04/14/2025 TRIGLYCERIDE 186 (H) 04/14/2025 LDL (calc) 85 07/25/2018 LDL (CALC) 67 04/14/2025 No data recorded No data recorded No data recorded Past Medical History: Diagnosis Date Allergies Anxiety Back pain Benign prostatic hyperplasia Dental disease Depression Diabetes mellitus ([facility]) Diabetes mellitus type 2, controlled ([facility]) Eczema HL (hearing loss) Hyperlipidemia Hypertension Injury of back Kidney stone Obesity PAD (peripheral artery disease) right foot pain Pneumonia Psoriasis Past Surgical History: Procedure Laterality Date BYPASS ARTERY FEMORAL POPLITEAL WITH VEIN GRAFT RIGHT Right 11/10/2021 Performed by Omid Ricks MD at [facility] Cardiac Invasive N/A 05/01/2025 Performed by Miah Felix MD at [facility] CARDIAC CATH LABS COLONOSCOPY 12/02/2016 Dr. Li COLONOSCOPY 11/17/2006 Dr. Li Coronary angiogram and right heart N/A 05/01/2025 Performed by Miah Felix MD at [facility] CARDIAC CATH LABS CORONARY ARTERY BYPASS GRAFT X 4 /EVH LEFT LEG /NOHEMI/ MILIAN/ SVG X 3/ REPLACE VALVE AORTIC WITH RICHIE-AMIN PERIMOUNT MAGNA EASE 23mm N/A 06/13/2025 Performed by Sydni Foy MD at [facility] HAND SURGERY Right MOUTH BIOPSY 08/10/2022 throat Right Leg Angiogram Right 09/30/2021 Performed by Omid Ricks MD at [facility] CARDIAC CATH LABS ROTATOR CUFF REPAIR Bilateral Dr. Ribeiro 2009; Dr. Vidal 2011 rt leg angio Right 08/24/2022 Performed by Omid Ricks MD at [facility] CARDIAC CATH LABS SKIN BIOPSY 2009 [...] on file Food Insecurity: No Food Insecurity (07/15/2025) Hunger Screening Food Insecurity - Worry: Never True Food Insecurity - Inability: Never True Transportation Needs: No Transportation Needs (06/13/2025) PRAPARE - Transportation Lack of Transportation (Medical): No Lack of Transportation (Non-Medical): No Physical Activity: Not on file Stress: Not on file Social Connections: Not on file Interpersonal Safety: Patient Unable To Answer (06/13/2025) Humiliation, Afraid, Rape, and Kick questionnaire Fear of Current or Ex-Partner: Patient unable to answer Emotionally Abused: Patient unable to answer Physically Abused: Patient unable to answer Sexually Abused: Patient unable to answer Housing Instability: Low Risk (06/13/2025) Housing Instability Housing Instability: No Review of Systems Review of Systems Constitutional: Positive for malaise/fatigue. HENT: Negative. Eyes: Negative. Cardiovascular: Negative. Vascular: Negative. Respiratory: Positive for shortness of breath. Endocrine: Negative. Hematologic/Lymphatic: Bruises/bleeds easily. Skin: Negative. Musculoskeletal: Positive for joint swelling. Gastrointestinal: Positive for diarrhea. Genitourinary: Negative. Neurological: Negative. Psychiatric/Behavioral: Negative for depression. The patient is nervous/anxious. Allergic/Immunologic: Positive for environmental allergies. CARDIOVASCULAR: Please [...] RRR with normal S1 and S2 with no murmurs. Gastrointestinal: Soft, non-tender. Bowel sounds normal. Musculoskeletal: No peripheral edema. Neurologic: Oriented to time, person and place, affect appropriate. No focal/major motor defects noted. Psychiatric: Appropriate mood, memory and judgement. VITAL SIGNS: BP 138/78 Pulse 62 Ht 170.2 cm (5' 7.01 ) Wt 88.5 kg (195 lb) SpO2 99% BMI 30.53 kg/m Orders Placed or Reconciled This Encounter Medications atorvastatin (LIPITOR) 40 mg tablet Sig: Take 1 tablet (40 mg total) by mouth nightly for 360 days. Dispense: 90 tablet Refill: 3 clopidogreL (PLAVIX) 75 mg tablet Sig: Take 1 tablet (75 mg total) by mouth in the morning. Dispense: 90 tablet Refill: 3 metoprolol tartrate (LOPRESSOR) 100 mg tablet Sig: Take 1 tablet (100 mg total) by mouth in the morning and 1 tablet (100 mg total) before bedtime. Do all this for 360 days. Dispense: 180 tablet Refill: 3 Medications Discontinued During This Encounter Medication Reason famotidine (PEPCID) 20 mg tablet furosemide (LASIX) 40 mg tablet potassium chloride (K-TAB,KLOR-CON) 10 MEQ CR tablet aspirin 81 mg clopidogreL (PLAVIX) 75 mg tablet Reorder metoprolol tartrate (LOPRESSOR) 100 mg tablet Reorder atorvastatin (LIPITOR) 40 mg tablet Reorder IMPRESSIONS/PLAN 1. Nonrheumatic aortic (valve) stenosis - Echo complete W/O contrast; Future 2. ASCVD (arteriosclerotic cardiovascular disease) - CMP; Future - CBC; Future 3. Mixed hyperlipidemia 4. Primary hypertension 5. Postoperative atrial fibrillation ([facility]) - Wireless Telemetry (In Office); Future 1. ASCVD -CABG x4 05/2025 Milian to the LAD Vein graft to diagonal Vein graft to OM1 Vein graft to PLB 2. Severe aortic stenosis status post aortic valve replacement with Magna 23 mm 05/2025 3. Postoperative atrial fibrillation -placed on amiodarone 4. Normal left ventricular systolic function on echocardiogram 03/2025 5. Primary hypertension 6. Hyperlipidemia 7. Type 2 diabetes 8. Peripheral arterial disease -status post right lower extremity fem-pop bypass 2021 9. Tobacco use, cessation advised Instructions Echocardiogram at your convenience Start cardiac rehab as scheduled in July Continue to treat diabetes as advised by your primary care Discontinue aspirin Discontinue furosemide/Lasix Discontinue potassium/K tab Discontinue amiodarone when current prescription completed, anticipated for 07/21/2025 Continue atorvastatin Continue clopidogrel/Plavix Continue metoprolol tartrate/Lopressor Continue warfarin/Coumad[facility] Wireless telemetry in 2 months Labs in 3 months If patient remains without atrial fibrillation on his wireless telemetry, consideration may be given to discontinuing warfarin TODAYS ORDERS Orders Placed This Encounter Procedures CMP CBC Wireless Telemetry (In Office) Echo complete W/O contrast FOLLOW UP Return in about 3 months (around 10/14/2025) for MAYRA Ok. PCP: TONYA DYE APRN-OLI Referring Physician: Tonya Dye, RAFITA-COLLECTION SUPPORT SPECIALIST [address] [place] [address] documented in this encounterKerbs Memorial HospitalSocialize [id number] Instructions* Patient Instructions* Kamran Rebolledo MD - 07/15/2025 1:15 PM EDT Echocardiogram at your convenience Start cardiac rehab as scheduled in July Continue to treat diabetes as advised by your primary care Discontinue aspirin Discontinue furosemide/Lasix Discontinue potassium/K tab Discontinue amiodarone when current prescription completed, anticipated for 07/21/2025 Continue atorvastatin Continue clopidogrel/Plavix Continue metoprolol tartrate/Lopressor Continue warfarin/Coumadin with management by [facility] Wireless telemetry in 2 months Labs in 3 months Are You Ready To Kick The Habit? Free Tobacco Cessation Resources [facility] Tobacco [facility] Services [facility] Centers provide all employees with free tobacco cessation services that include: Counseling to understand nicotine addiction Education about medications that can help you successfully quit Assistance with developing a plan to quit Call to set up an individual appointment or find out when group classes will be held: [facility]: [phone] [facility]: [phone] [facility]: [phone] [facility]: [phone] Quit Smoking Action Plan and Resources [facility] offers an eight-week, online smoking cessation plan to all [facility] employees, regardless of whether [place] is your medical insurance provider. Go to [email or web address].[email or web address]/[email or web address] and click the Health Risk Assessment and Resources link to get started. In the Dovua5Xrsjzt menu, click Action Plans instead of Health Risk Assessment to access the Quit Smoking Action Plan. Additional smoking cessation resources are also available to all [facility] employees on the Ynvvf9Xwzgnj web page at www.[employer]quitsmoking. [place] Tobacco Cessation Program If [place] is your medical insurance provider, there are more free resources available to you, including: No copays or deductibles on local tobacco cessation counseling services to help you quit Prescription assistance for tobacco cessation medications to help you quit For details about the tobacco cessation program available to [employer] members, go to www.[employer] (Search: Tobacco Cessation Program). [place] Tobacco Quit Line 7-365-VQPV-NOW ( ) is a toll-free, telephonic service that helps [place] residents quit smoking and using tobacco. It is staffed by experts who tailor a quit plan for you and provide you with advice. [place] Tobacco Quit Line 7-170-BXIM-NOW ( ) is a toll-free, telephonic service that helps [place] residents quit smoking and using tobacco. It is staffed by experts who tailor a quit plan for you and provide you with advice. Two weeks of nicotine replacement therapy may be provided at no charge, if needed. Additional Resources These national organizations also offer free information and resources to help you quit tobacco: [place] [employer]--www.cancer.org/healthy/stayawayfromtobacco [place] Heart [employer]--www.heart.org (Search: Quit Smoking) Centers for Disease Control and Prevention--www.cdc.gov/tobacco [place] Lung Association--www.lungusa.org documented in this encounterTrumbull Regional Medical Center09-29-2025 Evaluation note* Diagnosis Onset Date Resolution Status Admit Date Essential hypertension acuteSept2024 3:47pmHx of CABGacuteSept2024 3:47pm Nicotine dependenceacuteSept2024 3:47pmPanic attackacuteSept2024 3:47pmS/P aortic valve replacementacuteSept2024 3:47pm Type 2 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 documented in this encounterTrumbull Regional Medical Center09-29-2025 Telephone encounter Note* Telephone Encounter - Tonya Myrick CMA - 07/14/2025 11:50 AM EDT Left message for patient to remind them to bring their most current medication list with them to their appointment. [facility]09-29-[facility] Miscellaneous Notes* Telephone Encounter - Carito Romero MA - 07/14/2025 11:03 AM EDT Amanda from [address] (P: [phone]). She states she is returning a call to [facility]. [employer] Control Lab Tech tried leaving a message, however her mailbox is full. Unsure who called Amanda. * Telephone Encounter - Linda Issa [facility] - 07/14/2025 11:03 AM EDT Noted. Unsure who contacted Amanda. Last INR was checked 07/09 in office and patient plans to come toPO going forward so he was scheduled at [facility] POC on 07/15/25. * Telephone Encounter - January Gallego - 07/14/2025 11:03 AM EDT Amanda called back to confirm if patient went to lab on 07/09. Quality Control Lab Tech confirms that patient came in to POC and has another appt scheduled for 07/15. Ok per Amanda. documented in this encounterKerbs Memorial HospitalBomoda09-29-2025 Telephone encounter Note* Telephone Encounter - Carito Romero MA - 07/14/2025 11:03 AM EDT Amanda from [address] (P: [phone]). She states she is returning a call to [facility]. Quality Control Lab Tech tried leaving a message, however her mailbox is full. Unsure who called Amanda. [facility] Telephone encounter Note* Telephone Encounter - Linda Issa RPH - 07/14/2025 11:03 AM EDT Noted. Unsure who contacted Amanda. Last INR was checked 07/09 in office and patient plans to come toPO going forward so he was scheduled at [facility] POC on 07/15/25. [facility] Work Phone: [phone] Telephone encounter Note* Telephone Encounter - January Gallego - 07/14/2025 11:03 AM EDT Amanda called back to confirm if patient went to lab on 07/09. Quality Control Lab Tech confirms that patient came in to POC and has another appt scheduled for 07/15. Ok per Amanda. [facility]09-[facility] History of Present illness Narrative* Ivan Clark, [facility] - 07/09/2025 2:00 PM EDT 30 minute [id number] new anticoagulation appointment. INR performed in office per protocol. INR 1.3 (goal range: 2.0-3.0). Patient reports: Taking warfarin dosing as documented. Missed or extra doses of warfarin: No Changes to medications: No Changes to lifestyle (diet / alcohol / smoking / activity): No Recent emergency department visit / hospitalization / health changes / new contraindication to current anticoagulant: No Signs/symptoms of bruising/bleeding or clotting or any intolerable adverse events: No Upcoming procedures: No Anticoagulant prescription needed: No [facility] and patient is agreeable forreferral to be sent: No Assessment: Pt referred by Dr Siu on 06.17.25 d/t CABG x4 as well as AVR using bioprosthetic Magnavalve on 06/13/25, but all INR draws and dosing orders have been via and [facility] telephonic so far. Pt's INR has been consistently low the last 3 weeks on mostly 1mg doses. Pt is in agreement to startcoming to [facility] for POC monitoring and management from here on out. Pt has gotten 9mg the last 7 days and INR remains low at 1.3. Will have pt increase his dose to 9 mg in the next 5 days, then check INR in 6 days to determine if pt's INR finally boosts up from a higher dose Plan: Patient instructed to take 2mg on 07/10 and 07/11, 1mg on 07/12 and 07/13, back to 2mg on 07/14, then INR check on 07/15 Patient verbalizes understanding of anticoagulant dosing instructions and information discussed. Dosing regimen, counseling, and follow-up appointment were provided to the patient. Patient reminded to call with questions or any medication changes. Patient instructed to seek medical attention if anymajor bleeding/bleeding that persists or worsens. Patient Education Checklist (Warfarin) (check below if assessed / education provided) Fall risk assessment [x] History of falls [] Yes [x] No [x] Use assist device, such as walker, cane, wheelchair [] Yes [x] No [x] Fall risk education Warfarin medication information [x] Indications for use [x] Mechanism of action [x] Dose and frequency [x] Duration of therapy Warfarin side effects [x] Risk of bleeding [x] Risk of clotting - missed doses [x] Teratogenicity Warfarin monitoring [x] INR - definition and use [x] Therapeutic ranges [x] Compliance [x] Outpatient anticoagulation provider [x] First outpatient INR appointment date Warfarin drug interactions [x] Reporting medication changes [x] Medication list up-to-date Communication [x] Notifying [facility] Medication Management of any major changes with health, diet, medications, recent hospitalizations or upcoming procedures and having patient notify other providers that they are on warfarin Warfarin and diet concerns [x] Vitamin K effects Lifestyle [x] Alcohol consumption affect on INR [x] Tobacco use affect on INR Ivan Clark RPH 07/09/25 1430 documented in this encounterTrumbull Regional Medical Center09-23-2025 Miscellaneous Notes* Telephone Encounter - Carito Romero MA - 07/08/2025 12:36 PM EDT Amanda from [address] She states she was unable to get an INR today. She was not having any luck. Patient plans on going to [facility] lab today or tomorrow to get his INR drawn. Please send an order or return Amanda's call. * Telephone Encounter - Krishna Paris RPH - 07/08/2025 12:36 PM EDT If unable to get INR from and patient already planning on going to [facility] patient canbe scheduled at [facility] clinic for tomorrow. * Telephone Encounter - Carito Romero MA - 07/08/2025 12:36 PM EDT An appointment is scheduled 07/09/25 at [facility] POC. Patient states he is feeling sick, nauseous, and having chest pain today. documented in this encounterKerbs Memorial HospitalBomoda09-23-2025 Telephone encounter Note* Telephone Encounter - Carito Romero MA - 07/08/2025 12:36 PM EDT Amanda from [address] She states she was unable to get an INR today. She was not having any luck. Patient plans on going to [facility] lab today or tomorrow to get his INR drawn. Please send an order or return Amanda's call. [facility] Telephone encounter Note* Telephone Encounter - Krishna Paris RP - 07/08/2025 12:36 PM EDT If unable to get INR from and patient already planning on going to [facility] patient canbe scheduled at POC clinic for tomorrow. [facility] Work Phone: [phone] 112-309609-23-2025 Telephone encounter Note* Telephone Encounter - Carito Romero MA - 07/08/2025 12:36 PM EDT An appointment is scheduled 07/09/25 at [facility] POC. Patient states he is feeling sick, nauseous, and having chest pain today. [facility]09-22-2025 History of Present illness Narrative* Krishna Paris RPH - 07/07/2025 1:00 PM EDT 15 minute [id number] new anticoagulation appointment. INR performed in office per protocol. INR 1.1 (goal range: 2.0-3.0). Patient reports: Taking warfarin dosing as documented. Missed or extra doses of warfarin: No Changes to medications: No Changes to lifestyle (diet / alcohol / smoking / activity): No Recent emergency department visit / hospitalization / health changes / new contraindication to current anticoagulant: No Signs/symptoms of bruising/bleeding or clotting or any intolerable adverse events: No Upcoming procedures: No Anticoagulant prescription needed: No Seen referring provider in the last year Duration of therapy reviewed [facility] pill packaging and patient is agreeable forreferral to be sent: No Assessment: INR subtherapeutic and stable from last result that was not reported to [facility]. Increase x2 days and recheck on Monday with . Plan: Patient instructed to increase to warfarin 2 mg today and tomorrow, then 1 mg daily. Check INR in 2 day(s). Order faxed to [facility]. Patient verbalizes understanding of anticoagulant dosing instructions and information discussed. Dosing regimen, counseling, and follow-up appointment were provided to the patient. Patient reminded to call with questions or any medication changes. Patient instructed to seek medical attention if anymajor bleeding/bleeding that persists or worsens. Krishna Paris [facility] 07/07/25 1305 * Marielena Walton - 07/07/2025 1:00 PM EDT Marielena Walton administered FLUAD 0.5 ML via intramuscular route in the right deltoid on July 07, 2025. The Lot Number is [id number], [facility] [place] [phone], External Relations Manager is [employer], and Expiration Dateis 02/17/2026. VIS provided to patient on July 07, 2025. Patient provided consent to any costsassociated with the influenza vaccine and administration. documented in this encounterTrumbull Regional Medical Center09-22-2025 History of Present illness Narrative* Felipe Lemus APRN-COLLECTION SUPPORT SPECIALIST - 07/07/2025 11:00 AM EDT Images from the original note were not included. Outpatient Follow-Up Note Date of Visit: 07/07/2025 PCP: TONYA DYE, RAFITA-COLLECTION SUPPORT SPECIALIST Summary of Admission I had the pleasure today of seeing Darin Thacker in the office, in conjunction with Dr. Foy, following their recent Coronary artery bypass grafting x4 with left internal mammary artery to left anterior descending, reverse saphenous vein graft to diagonal, reverse saphenous vein graft to 1st obtuse marginal, reverse saphenous vein graft to posterolateral branch of the right coronary artery; aortic valve replacement with 23 mm Magna valve; median sternotomy, cardiopulmonary bypass, endoscopic vein harvest performed on 06/13/[address] Foy. As you recall, Darin Thacker is a 75 y.o. male who presented with dyspnea on exertion and a decline in energy. He has no documented prior cardiac history but does have the presence of a number of risk factors including diabetes, hyperlipidemia, hypertension, and ongoing tobacco usage. Workup for her symptoms was initiated, which included echo. This demonstrated severe aortic valve stenosis with a mean gradient of 44 mmHg. In preparation for intervention on the valve, he also underwent cardiac catheterization. This showed severe three- vessel coronary disease. He comes to structural heart clinic for discussion regarding therapeutic intervention. As noted above, the patient was previously quite active until this spring, when his dyspnea startedto progress fairly rapidly and became activity limiting. Even at this point, the patient does not have any eliza angina. He denies any symptoms at rest, having no orthopnea, paroxysmal nocturnal dyspnea, or ankle edema. He was seen in consultation by Dr. Foy at which time surgical risks, benefits, surgical options, and the need for surgical surgical intervention was carefully explained to thepatient, he consented and wished to proceed with surgery. He then presented to the [facility] on 06/13/2025 where he underwent a coronary artery bypass grafting x4. Postoperatively he was admitted to the Heart vascular ICU for close 1-1 monitoring care. He was successfully weaned from the mechanical ventilator and extubated to supplemental nasal cannula O2 later that evening at 8:40 p.m. he was weaned from all vasopressors overnight. He was out of bed to the chair the following day. He remained in a normal sinus rhythm, he was hemodynamically stable, he was transferred to the intermediate step-down unit on postoperative day 1. Prior to transferred to the intermediate step-down unit mediastinal chest tubes were weaned to water seal and subsequently discontinued, left pleural chest tube remained to suction. Anticoagulation was initiated for his bioprosthetic AVR. On the intermediate step-down unit left pleural chest tube seal was now discontinued. Follow up chest x-ray remained stable. Patient had developed upper airway congestion with wheezing, Xopenex nebulizers were ordered. Diuretics were increased to b.I.d.. He then developed paroxysmal atrial fibrillation requiring the use of IV amiodarone, patient did convert to a normal sinus rhythm. He was transition to p.o. amiodarone, he remained in a sinus rhythm without the recurrence of AFib. Metoprolol was increased for tachycardia and hypertension. His respiratory status continued to improve. His oxygen was able to be weaned to room air. Physicaland occupational therapy were recommending home with home care at the time of discharge. Patient isnow ambulating well. INR jumped quickly to 2.0 today after 2 doses of Coumadin. We will hold Coumadin today and resume at a lower dose tomorrow. The patient will remain on aspirin, clopidogrel and warfarin. He does have history of a right lower extremity arterial bypass and was maintained on Plavixpreoperatively. Patient does continued to demonstrate lower extremity edema left greater than right. His weight is slightly elevated from his preoperative stated weight. He will continue with diuretics at discharge, with a potassium supplement. We will check a BMP 2 x weekly for the next 2 weeks. Home diabetic medications were resumed at discharge. [facility]. Referral has been sent. A referral for outpatient phase 2 cardiac rehab was also placed. BMP on 06/19/2025 showed normal renal function, normal electrolyte levels. INR on 06/30/2025 was 1.0, subtherapeutic. INR previously supratherapeutic at 3.2 on 06/23/2025. Patient presents to the office today for follow up. He reports doing well since his hospital discharge. He has been quite fatigued, which has caused any advancement in activity to be quite slow. He is however tolerating activity without much in the way of exertional symptoms. Denies eliza chest pain, shortness of breath at rest or with exertion, palpitations, or dizziness. No fever or chills. Does have some mild persisting lower leg edema that was not present prior to surgery, although he does feel this continues to gradually improve. He is not wearing compression socks. Feels his incisions are healing well and has no major concerns about them except for some redness around the left lower extremity EVH site. Has not felt any popping or clicking from his chest. Has not noticed any drainagefrom incisions. Surgical pain is mild at this point in his recovery. Continues to observe a 10 lb lifting restriction and wear his heart hugger daily. He has been having some trouble sleeping, however, reports this has been an issue for him in the past and that he has had intermittent periods of time throughout his life were insomnia has been an issue. He is eating and drinking well. Appetite hasreturned to baseline. No nausea or vomiting. Having occasional looser bowel movements but no eliza d iarrhea. He continues to follow with [facility] clinic for outpatient Coumadin management and is scheduled to have his INR rechecked in their office when he leaves the CT surgery office after his appointment today. Most recent INR was subtherapeutic at 1.0 on 06/30/2025. Patient has not noticed any signs of bleeding while on Coumadin. Denies bruising, pink tinged urine, or change in BM color. He has no other major concerns and feels he is making a good recovery overall. He has follow up scheduled with Cardiology next week and reportedly has an initial appointment with cardiac rehab in mid to late July. Past Medical History Past Medical History: Diagnosis Date Allergies Anxiety Back pain Benign prostatic hyperplasia Dental disease Depression Diabetes mellitus ([facility] Diabetes mellitus type 2, controlled ([facility] Eczema HL (hearing loss) Hyperlipidemia Hypertension Injury of back Kidney stone Obesity PAD (peripheral artery disease) right foot pain Pneumonia Psoriasis Allergies Allergies Allergen Reactions Ciprofloxacin Hives Penicillins Trulicity [Dulaglutide] GI Disturbance Victoza 2-Bandar [Liraglutide] Home Meds Prior to Admission medications Medication Sig Start Date End Date Taking? Authorizing Provider amiodarone (PACERONE) 200 mg tablet Take 2 tablets (400 mg total) by mouth 2 (two) times a day for 4 days, THEN 1 tablet (200 mg total) daily for 30 days. 06/17/25 07/21/25 Flora Driscoll, FINGERPRINT EXPERT-COLLECTION SUPPORT SPECIALIST aspirin 81 mg Take 1 tablet (81 mg total) by mouth in the morning for 30 days. 06/18/25 07/18/25 PAWEL Lowery atorvastatin (LIPITOR) 40 mg tablet Take 1 tablet (40 mg total) by mouth nightly for 30 days. 06/17/25 07/17/25 PAWEL Lowery clopidogreL (PLAVIX) 75 mg tablet Take 1 tablet (75 mg total) by mouth in the morning. 04/15/24 Kelly Ricks MD cyanocobalamin 1000 MCG tablet Take 1 tablet (1,000 mcg total) by mouth in the morning. Not In System Ref Prov famotidine (PEPCID) 20 mg tablet Take 1 tablet (20 mg total) by mouth in the morning for 30 days. 06/18/25 07/18/25 PAWEL Lowery FARXIGA 10 mg tablet 1 mg in the morning. 12/19/22 Not In System Ref Prov ferrous sulfate 325 (65 FE) mg tablet Take 1 tablet (325 mg total) by mouth daily with breakfast. Not In System Ref Prov fluticasone (FLONASE) 50 mcg/actuation nasal spray Administer 2 sprays into each nostril daily. 11/07/17 Kalen Cardoso MD PhD furosemide (LASIX) 40 mg tablet 40 milligrams p.o. b.i.d. times 7 days then decrease dosing to 40 milligrams p.o. daily x7 days 06/17/25 PAWEL Lowery gabapentin (NEURONTIN) 300 mg capsule Take 2 capsules (600 mg total) by mouth in the morning and 2 capsules (600 mg total) at noon and 2 capsules (600 mg total) in the evening and 2 capsules (600 mg total) before bedtime. Not In System Ref Prov glipiZIDE (GLUCOTROL) 10 mg tablet Take 1 tablet (10 mg total) by mouth in the morning. Not In System Ref Prov metFORMIN (GLUCOPHAGE) 1000 mg tablet 1 tablet (1,000 mg total) in the morning and 1 tablet (1,000 mg total) in the evening. Take with meals. 08/31/17 Not In System Ref Prov metoprolol tartrate (LOPRESSOR) 100 mg tablet Take 1 tablet (100 mg total) by mouth in the morning and 1 tablet (100 mg total) before bedtime. Do all this for 30 days. 06/17/25 07/17/25 PAWEL Lowery pioglitazone (ACTOS) 30 mg tablet Take 1 tablet (30 mg total) by mouth in the morning. 08/31/17 NotIn System Ref Prov potassium chloride (K-TAB,KLOR-CON) 10 MEQ CR tablet 10 milliequivalents 2 times daily x7 days thendecrease dosing to 10 milliequivalents daily x7 days 06/17/25 PAWEL Lowery tamsulosin (FLOMAX) 0.4 mg capsule,extended release 24hr Take 1 capsule (0.4 mg total) by mouth nightly. 08/31/17 Not In System Ref Prov warfarin (COUMADIN) 2 mg tablet 2 milligrams p.o. daily 06/18/25 PAWEL Lowery Physical Examination Vital Signs: BP 104/64 (BP Site: Left Arm, BP Postition: Sitting, BP CUFF SIZE: M (9-13 inches)) Pulse 62 Temp 36.1 C (97 F) (Temporal) Resp 18 Wt 87.1 kg (192 lb) SpO2 94% BMI 30.06 kg/m Wt Readings from Last 2 Encounters: 07/07/25 87.1 kg (192 lb) 06/17/25 87.4 kg (192 lb 10.9 oz) General appearance: Alert and Oriented, Resting Comfortably, and In no apparent distress Heart:S1 S2 and No murmur, click, lindsey, or rub Lungs:clear and equal bilaterally, nonlabored Abdomen:soft non tender and non distended positive bowel sounds Extremities: mild bilateral lower extremity edema L > R Incisions: Median Sternotomy is clean dry and intact with no erythema or drainage, Chest tube sitesare healing well and sutures were removed at this time, On palpation, sternum is felt to be stable., and Left SVG incision is CDI with no erythema or drainage Mild redness around left lower extremity EVH site and chest tube sites although not frankly erythematous, sites look irritated but non-infective Labs CBC: BMP: PT/INR: Results from last 7 days Lab Units 06/30/25 1709 PROTIME sec 11.7 INR 1.0 Assessment and Plan Darin Thacker is making a good initial recovery from his recent open heart surgery. Surgical incisions are healing appropriately without signs of infection. Some redness around the chest tube sites and the left lower extremity EVH site. This is not uncommon, often due to the attention of sutures remaining in the chest tube sites and the frequent movement/irritation to the EVH siteas a result of where it is located. The sites are noninfective in appearance. Patient will monitor closely but nothing to do for them at this point other than keep them clean and dry. Patient has been cleaning with wipes that he took home from the hospital. He was advised to shower daily and clean incisions daily with running water rather than with wipes. Blood pressure and heart rate appear controlled within good range based on those obtained at today's appointment. Medications were discussed. No medication changes made today. Follow up as scheduled with Ben Calixto after today's appointment for INR re-evaluation. Target INR 2.0-3.0. Also, okay to try [id number] Unisom for a brief period of time to see if this helps with insomnia. Patient was encouraged to continue to increase activity as he tolerates. He was encouraged to push himself a bit, albeit within reason, in order to help improve his stamina. Driving and lifting restrictions/sternal precautions were reviewed. Phase 2 cardiac rehab was discussed and recommended. FromCT surgery standpoint, patient can begin cardiac rehab starting 4 weeks from the date of his surgery. Per patient, he has an initial appointment scheduled for evaluation for cardiac rehab in mid to late July closer to home. Darin Thacker will follow up with his primary care provider, cardiology, Ben FONG, and all of hisother medical providers for ongoing medical management. At this time, Darin Thacker is discharged from our services. If you have any questions or concerns please do not hesitate to call. We thank you again for the referral of this patient and allowing us to participate in their care. Patient verbalized understanding of and agreement to all things discussed at today's appointment. By the end of today's appointment he had no remaining questions or concerns. He was encouraged to call the Cardiothoracic surgery office if any questions or new concerns should arise. L Kumar 07/07/25 1222 documented in this [facility]09-22-2025 Instructions* Patient Instructions* PAWEL Kumar - 07/07/2025 11:00 AM EDT 1. Please continue to wear Heart Hugger for a total of 5-6 weeks from the date of surgery 2. Please continue to observe a less than 10 pound lifting restriction for a total of 6 weeks from the date of surgery 3. Please follow up with your medical doctors including your compensation consulting manager and primary care physician 4. Driving restrictions can be lifted 3 weeks from the date of surgery 5. Please plan to participate in phase 2 cardiac rehabilitation after following up with your compensation consulting manager 6. Okay to try Unisom for sleep 7. No further follow-up with our office but please do not hesitate to call with any questions or concerns about your recent surgery documented in this [facility]Tr[facility] History of Present illness Narrative* January Gallego - 07/07/2025 9:41 AM EDT Amanda from [address] called ([phone]) to confirm an INR is needed on 07/09. Quality Control Lab Tech notes that INR was drawn on 06/30 but [facility]MM was not alerted. INR result was 1.0. Per Amanda, please send new orders for draw on 07/09. * Sofia Meyer RPH - 07/07/2025 9:41 AM EDT Noted. Patient to present for POC at [facility] following CT surg visit today. Updated orders to be faxed at that time. Sofia Meyer RPH 07/07/25 1150 documented in this encounterTrumbull [facility]09-19-2025 History of Present illness Narrative* Dasha José - 07/04/2025 3:37 PM EDT Lvm to change appointment to 11 documented in this encounterTrumbull [facility]09-15-2025 Miscellaneous Notes* Telephone Encounter - January Gallego - 06/30/2025 8:29 AM EDT Amanda from [address] called ([phone]) regarding next INR for patient after 06/23. Quality Control Lab Tech advised that orders were sent on 06/23 for next draw on 06/27. Per Amanda, please send new orders for INR draw today since they did not receive the ones from 06/23. * Telephone Encounter - Linda Issa RPH - 06/30/2025 8:29 AM EDT Noted. Order refaxed for INR draw 06/30/25. documented in this encounterTrumbull [facility]09-15-2025 Telephone encounter Note* Telephone Encounter - January Gallego - 06/30/2025 8:29 AM EDT Amanda from [address] called ([phone]) regarding next INR for patient after 06/23. Quality Control Lab Tech advised that orders were sent on 06/23 for next draw on 06/27. Per Amanda, please send new orders for INR draw today since they did not receive the ones from 06/23. [facility] Telephone encounter Note* Telephone Encounter - Linda Issa RPH - 06/30/2025 8:29 AM EDT Noted. Order refaxed for INR draw 06/30/25. [employer] Work Phone: [phone] History of Present illness Narrative* Krishna Paris [facility] - 06/23/2025 3:59 PM EDT Result received from [address]/PM lab. INR 3.2 (goal range: 2.0-3.0). Spoke to patient and/or caregiver who reports patient findings: Taking warfarin dosing as documented. Missed or extra doses of warfarin: No Changes to medications: No Changes to lifestyle (diet / alcohol / smoking / activity): No Recent emergency department visit / hospitalization / health changes / new contraindication to current anticoagulant: No Signs/symptoms of bruising/bleeding or clotting: No Upcoming procedures: No Anticoagulant prescription needed: No Seen referring provider in the last year Duration of therapy reviewed Patient could benefit from [facility] pill packaging and patient is agreeable forreferral to be sent: No Assessment: INR slightly supratherapeutic, likely still in upswing from higher doses last week. Would expect INR to start trending down in the coming days. Plan: Patient instructed to continue warfarin 1 mg daily. Check INR in 4 day(s). Patient and/or caregiver verbalizes understanding of anticoagulant dosing instructions and information discussed. Dosing regimen, counseling, and follow- up INR redraw date were provided. Patient reminded to call with questions or any medication changes. Patient instructed to seek medical attention if any major bleeding/bleeding that persists or worsens. [phone] Krishna Paris [facility] 06/23/25 1611 documented in this encounter[facility] History of Present illness Narrative* Jm Curry, [facility] - 06/19/2025 3:37 PM EDT Result received from PM Lab. INR 2.5 (goal range: 2.0-3.0). Spoke to patient and/or caregiver who reports patient findings: Taking warfarin dosing as documented. Missed or extra doses of warfarin: No but already took dose today Changes to medications: No Changes to lifestyle (diet / alcohol / smoking / activity): No Recent emergency department visit / hospitalization / health changes / new contraindication to current anticoagulant: Yes, see previous note Signs/symptoms of bruising/bleeding or clotting: No Upcoming procedures: No Anticoagulant prescription needed: No Patient could benefit from [facility] pill packaging and patient is agreeable forreferral to be sent: No Assessment: INR therapeutic but rising quickly after three doses Plan: Patient instructed to decrease to warfarin 1 mg daily starting tomorrow. Redraw Monday. Patient and/or caregiver verbalizes understanding of anticoagulant dosing instructions and information discussed. Dosing regimen, counseling, and follow- up INR redraw date were provided. Patient reminded to call with questions or any medication changes. Patient instructed to seek medical attention if any major bleeding/bleeding that persists or worsens. Patient Education Checklist (Warfarin) (check below if assessed / education provided) Fall risk assessment [] History of falls [] Yes [] No [] Use assist device, such as walker, cane, wheelchair [] Yes [] No [] Fall risk education Warfarin medication information [x] Indications for use [] Mechanism of action [] Dose and frequency [] Duration of therapy Warfarin side effects [x] Risk of bleeding [x] Risk of clotting - missed doses [] Teratogenicity Warfarin monitoring [x] INR - definition and use [x] Therapeutic ranges [x] Compliance [] Outpatient anticoagulation provider [] First outpatient INR appointment date Warfarin drug interactions [x] Reporting medication changes [x] Medication list up-to-date Communication [x] Notifying [facility] Medication Management of any major changes with health, diet, medications, recent hospitalizations or upcoming procedures and having patient notify other providers that they are on warfarin Warfarin and diet concerns [] Vitamin K effects Lifestyle [] Alcohol consumption affect on INR [] Tobacco use affect on INR Jm Curry RPH 06/19/25 1602 documented in this encounterTr[facility]ull [facility]09-02-2025 History of Present illness Narrative* Marielena Sheridan RN - 06/17/2025 1:43 PM EDT Informed [id number] that we will follow for home care, INR to [facility] and pt needs BMP 2x a week for 2 weeks documented in this encounterTrumbull [facility]09-02-2025 History of Present illness Narrative* Krishna Paris [facility] - 06/17/2025 9:39 AM EDT [facility] received a new referral from Ronnell Siu MD on 06/17/2025. The information below is outlined from the referral: Demographics Darin Thacker 1950 [address] [facility] clinic location / home health agency: Home health (no agency specified yet); then [facility] Anticoagulation Details Indication: AVR (bioprosthetic) INR Target Range: 2.0 - 3.0 Bridging Preference for procedure/surgery: No bridging is necessary Date warfarin started: 06/15/25 Date of next INR required: TBD Anticipated duration of therapy: Indefinite Warfarin tablet strength prescribed: 2 mg Current dosing instructions: 2 mg once every day The dosing calendar is up-to-date to reflect warfarin tablet strength prescribed and current dosinginstructions. The patient education checklist will be discussed in depth during the initial [id number] visit with a [facility] clinical pharmacist and/or during the initial phone call during home health. Pertinent information: Patient underwent CABG x4 as well as AVR using bioprosthetic Magna valve on 06/13/25. Current discharge plans are likely home health. Will follow for discharge. 4:08 PM - patient discharged with [id number], order faxed for INR with SOC visit. Krishna Paris Tucker 06/17/25 1609 documented in this encounterTrumbull [facility] Center08-18-2025 History of Present illness Narrative* Marlene Kramer MD - 06/02/2025 2:30 PM EDT Images from the original note were not included. [facility] Darin Thacker Date of visit: 06/02/2025 Date of : 1950 Age: 75 y.o. Chief Complaint Patient presents with Follow-up follow up (pkr +cts) Cardiac Valve Problem History of Present Illness Darin Thacker is a very pleasant 75 y.o., male with a past medical history of aortic valve stenosis and primary hypertension, who presents today for increased fatigue and slowed breathing. He reports that he has been feeling well overall, but notes some fatigue. He explains that he has continued to notice his breathing slowing, but notes that he continues to smoke. He denies having any issues using stairs, but notes that he has not been able to perform yard care has he quickly becomes fatigue. He explains that this has progressed since last summer, noting that he initially noticed it in December of this year. He admits to an episode of back pain after mowing his lawn which was quickly followed by a fever. He explains he called the ambulance and was diagnosed with pneumonia. He was treated and discharged with an inhaler, which he has since finished. He notes having dentures for his superior teeth, he explains that his dentist had informed him the he is doing well. Severe aortic valve stenosis Coronary artery disease, severe multivessel Primary hypertension HTN DM2 Ongoing tobacco use Severe peripheral vascular disease with right lower extremity bypass in 2021 , fem-pop Current Outpatient Medications Medication Sig Dispense Refill amLODIPine (NORVASC) 5 mg tablet Take 1 tablet (5 mg total) by mouth in the morning. clopidogreL (PLAVIX) 75 mg tablet Take 1 tablet (75 mg total) by mouth in the morning. 90 tablet 3 cyanocobalamin 1000 MCG tablet Take 1 tablet (1,000 mcg total) by mouth in the morning. esomeprazole (NexIUM) 40 mg capsule Take 1 capsule (40 mg total) by mouth. (Patient not taking: Reported on 06/02/2025) FARXIGA 10 mg tablet 1 mg in [...] mg total) by mouth in the morning. sucralfate (CARAFATE) 1 gram tablet Take 1 tablet (1 g total) by mouth Daily at 0630. (Patient not taking: Reported on 06/02/2025) tamsulosin (FLOMAX) 0.4 mg capsule,extended release 24hr Take 1 capsule (0.4 mg total) by mouth nightly. No current facility-administered medications for this visit. Allergies Allergen Reactions Ciprofloxacin Hives Penicillins Trulicity [Dulaglutide] GI Disturbance Victoza 2-Bandar [Liraglutide] Patient Active Problem List Diagnosis Sebaceous cyst Claudication Primary hypertension Pre-op exam Draining postoperative wound Obesity (BMI 30.0-34.9) Nonrheumatic aortic (valve) stenosis Palatal lesion Tinnitus Hearing loss Cigarette smoker motivated to quit Severe aortic valve stenosis Past Medical History: Diagnosis Date Allergies Anxiety Back pain Benign prostatic hyperplasia Dental disease Depression Diabetes mellitus ([facility]) Diabetes mellitus type 2, controlled ([facility]) Eczema HL (hearing loss) Hyperlipidemia Hypertension Injury of back Kidney stone Obesity PAD (peripheral artery disease) right foot pain Pneumonia Psoriasis Past Surgical History: Procedure Laterality Date BYPASS ARTERY FEMORAL POPLITEAL WITH VEIN GRAFT RIGHT Right 11/10/2021 Performed by Omid Ricks MD at [facility] Cardiac Invasive N/A 05/01/2025 Performed by Miah Felix MD at [facility] CARDIAC CATH LABS COLONOSCOPY 12/02/2016 Dr. Li COLONOSCOPY 11/17/2006 Dr. Li Coronary angiogram and right heart N/A 05/01/2025 Performed by Miah Felix MD at [facility] CARDI[facility] CATH LABS HAND SURGERY Right MOUTH BIOPSY 08/10/2022 throat Right Leg Angiogram Right 09/30/2021 Performed by Omid Ricks MD at [facility] CARDI[facility] CATH LABS ROTATOR CUFF REPAIR Bilateral Dr. Ribeiro 2009; Dr. Vidal 2011 rt leg angio Right 08/24/2022 Performed by Omid Ricks MD at [facility] CARDIAC CATH LABS SKIN BIOPSY 2009 [...] on file Food Insecurity: No Food Insecurity (02/20/2025) Hunger Screening Food Insecurity - Worry: Never True Food Insecurity - Inability: Never True Transportation Needs: Not on file Physical Activity: Not on file Stress: Not on file Social Connections: Not on file Interpersonal Safety: Unknown (12/07/2023) Received from [facility] Fear of Current or Ex-Partner: Not on file Emotionally Abused: Not on file Physically Abused: Not on file Sexually Abused: Not on file Physically or Sexually Abused: Not on file Housing Instability: Not on file Current Outpatient Medications Medication Sig Dispense Refill amLODIPine (NORVASC) 5 mg tablet Take 1 tablet (5 mg total) by mouth in the morning. clopidogreL (PLAVIX) 75 mg tablet Take 1 tablet (75 mg total) by mouth in the morning. 90 tablet 3 cyanocobalamin 1000 MCG tablet Take 1 tablet (1,000 mcg total) by mouth in the morning. esomeprazole (NexIUM) 40 mg capsule Take 1 capsule (40 mg total) by mouth. (Patient not taking: Reported on 06/02/2025) FARXIGA 10 mg tablet 1 mg in [...] mg total) by mouth in the morning. sucralfate (CARAFATE) 1 gram tablet Take 1 tablet (1 g total) by mouth Daily at 0630. (Patient not taking: Reported on 06/02/2025) tamsulosin (FLOMAX) 0.4 mg capsule,extended release 24hr Take 1 capsule (0.4 mg total) by mouth nightly. No current facility-administered medications for this visit. Review of Systems Review of Systems Constitutional: Negative for malaise/fatigue. HENT: Negative for nosebleeds. Eyes: Negative for blurred vision and double vision. Cardiovascular: Negative for leg swelling. Respiratory: Negative for cough, shortness of breath and wheezing. Hematologic/Lymphatic: Does not bruise/bleed easily. Skin: Negative for rash. Musculoskeletal: Negative for joint pain, joint swelling, muscle cramps and muscle weakness. Gastrointestinal: Negative for abdominal pain, heartburn, nausea and vomiting. Genitourinary: Negative for hematuria. Neurological: Negative for dizziness, headaches, light-headedness and weakness. Psychiatric/Behavioral: Negative for depression. The patient is not nervous/anxious. CARDIOVASCULAR: Please review HPI. Physical Examination BP 136/80 Pulse 75 Ht 170.2 cm (5' 7.01 ) Wt 85.3 kg (188 lb) SpO2 95% BMI 29.44 kg/m CONSTITUTIONAL: cooperative, alert and oriented, well developed, well nourished, in no acute distress SKIN: warm and dry to touch HEAD:normocephalic, no tenderness EYES:conjuctivae and lids unremarkable, funduscopic exam and visual carter not performed, EOMS intact NECK: no JVD CHEST: clear to auscultation and percussion, normal A-P diameter, no use of accessory muscles CARDIAC: regular rhythm, S1, S2, 3/6 systolic Murmur noted ABDOMEN: abdomen soft, bowel sounds normoactive, no masses, non-tender, no bruits PERIPHERAL PULSES: pulses full and equal in all extremities, no bruits auscultated EXTREMITIES and BACK: no cyanosis present, no clubbing present, no edema present PSYCHIATRIC: appropriate mood, memory and judgement NEUROLOGICAL: no gross motor or sensory deficits noted Cardiac Testing LAST ECHO (Within 2 Years) Echo complete W/ contrast Result Date: 04/14/2025 Left Ventricle: Left ventricle is small. Systolic function is normal with an ejection fraction of 65-70%. The quantitative EF by 2D Aguilar biplane is 67%. Grade I diastolic dysfunction (impaired relaxation) is present. Right Ventricle: Right ventricular size appears normal. Systolic function is normal. Aortic Valve: There is mild regurgitation. There is very severe stenosis. The calculated aortic valve area is 0.65 cm2. The calculated aortic valve peak gradient is 85.00 mmHg. The calculated aortic valve mean gradient is 43.00 mmHg. Echo NOHEMI Result Date: 04/29/2024 Left Ventricle: Left ventricle appears normal in size. There is moderate increased wall thickness/hypertrophy. Systolic function is normal with an ejection fraction of 60-65%. Aortic Valve: The leaflets exhibit moderately reduced excursion. The leaflets are moderately calcified. Bicuspid with fusion of the left and right coronary cusp with a raphe noted. There is echogenic density on the commissures in form of nodularity with some mobile portions. This is likely degeneration. Under the right clinical setting would worry about possibility of endocarditis. Would correlate clinically on this. There is mild regurgitation. There is moderate stenosis. The calculated aortic valve area is 1.12 cm2.The calculated aortic valve peak gradient is 47.00 mmHg. The calculated aortic valve mean gradient is 27.00 mmHg. DVI above a 0.25 Tricuspid Valve: There is trace regurgitation. Aorta: There is gradeII plaque in the aorta. LAST STRESS (Within 2 Years) No results found. EKG: No results found. CATH: No results found. (Within 2 Years) LAST LABS: CBC: Lab Results Component Value Date WBC 6.6 04/25/2025 HGB 16.4 04/25/2025 HCT 48.0 04/25/2025 MCV 92 04/25/2025 PLT 170 04/25/2025 BMP: Lab Results Component Value Date GLU 138 (H) 05/01/2025 CALCIUM 9.5 04/25/2025 SODIUM 136 04/25/2025 K 4.5 04/25/2025 CO2 28 04/25/2025 BUN 12 04/25/2025 CREATININE 0.67 04/25/2025 PT/INR: @INR3@ Lipids: Lab Results Component Value Date CHOL 148 (L) 04/14/2025 CHOL 164 07/25/2018 Lab Results Component Value Date HDL 44 04/14/2025 HDL 40 07/25/2018 Lab Results Component Value Date LDLCALC 67 04/14/2025 LDLCALC 85 07/25/2018 Lab Results Component Value Date TRIG 186 (H) 04/14/2025 TRIG 197 (H) 07/25/2018 No results found for: CHOLHDL Changes Made No orders of the defined types were placed in this encounter. There are no discontinued medications. IMPRESSIONS/PLAN Encounter Diagnosis Name Primary? Severe aortic valve stenosis Yes At our heart team meeting we discussed the possibility of TAVR alone and treating the coronary disease medically, versus a surgical approach where we could treat his coronary disease and his valvulardisease. Talking with the patient he has pretty active, independent and functional. Dr. Foy feels that he can approach but his valvular disease and his coronary disease with a surgical approach which may be a very reasonable option for the patient given his age of 75 and the fact that he is very active and does all his own yd work We discussed his surgical options and the risks, benefits, and indications of undergoing open heartsurgery to correct both his aortic valve stenosis and coronary artery disease. Patient will schedule this electively with Dr. Foy, please see his note as well. TODAYS ORDERS No orders of the defined types were placed in this encounter. FOLLOW UP Return in about 6 months (around 12/03/2025). PCP: PAWEL MALDONADO Referring Physician: PAWEL Maldonado [facility] [place] [address] Del Hatfield 06/02/25 1541 documented in this encounterTrumbull [facility] Center08-18-2025 History of Present illness Narrative* Sydni Foy MD - 06/02/2025 2:30 PM EDT Images from the original note were not included. CARDIAC SURGERY OUTPATIENT CONSULT Date of Consultation: 06/03/2025 PCP: PAWEL MALDONADO Chief Complaint: Dyspnea on exertion, decline in energy History of Present Illiness Darin Thacker is a 75 y.o. male who presents with presents with the above. He has no documented prior cardiac history but does have the presence of a number of risk factors including diabetes, hyperlipidemia, hypertension, and ongoing tobacco usage. Workup for her symptoms was initiated, which included echo. This demonstrated severe aortic valve stenosis with a mean gradient of 44 mmHg. In preparation for intervention on the valve, he also underwent cardiac catheterization. This showed severe three-vessel coronary disease. He comes to structural heart clinic for discussion regarding therapeutic intervention. As noted above, the patient was previously quite active until this spring, when his dyspnea startedto progress fairly rapidly and became activity limiting. Even at this point, the patient does not have any eliza angina. He denies any symptoms at rest, having no orthopnea, paroxysmal nocturnal dyspnea, or ankle edema. Past Medical History Past Medical History: Diagnosis Date Allergies Anxiety Back pain Benign prostatic hyperplasia Dental disease Depression Diabetes mellitus ([facility]) Diabetes mellitus type 2, controlled ([facility] Eczema HL (hearing loss) Hyperlipidemia Hypertension Injury of back Kidney stone Obesity PAD (peripheral artery disease) right foot pain Pneumonia Psoriasis Surgical History has a past surgical history that includes Rotator cuff repair (Bilateral); Colonoscopy (12/02/2016); Colonoscopy (11/17/2006); Skin biopsy (2009); Vascular surgery (03/09/2021); Arterial bypass surgry (Right, 11/10/2021); Mouth Biopsy (08/10/2022); Hand surgery (Right); Invasive Cardiology Procedure (N/A, 05/01/2025); and Cardiac catheterization (N/A, 05/01/2025). Allergies Allergies Allergen Reactions Ciprofloxacin Hives Penicillins Trulicity [Dulaglutide] GI Disturbance Victoza 2-Bandar [Liraglutide] Home Meds Prior to Admission medications Medication Sig Start Date End Date Taking? Authorizing Provider amLODIPine (NORVASC) 5 mg tablet Take 1 tablet (5 mg total) by mouth in the morning. 09/25/19 Yes Not In System Ref Prov clopidogreL (PLAVIX) 75 mg tablet Take 1 tablet (75 mg total) by mouth in the morning. 04/15/24 Yes Omid Ricks MD cyanocobalamin 1000 MCG tablet Take 1 tablet (1,000 mcg total) by mouth in the morning. Yes Not In System Ref Prov FARXIGA 10 mg tablet 1 mg in the morning. 12/19/22 Yes Not In System Ref Prov ferrous sulfate 325 (65 FE) mg tablet Take 1 tablet (325 mg total) by mouth daily with breakfast. Yes Not In System Ref Prov fluticasone (FLONASE) 50 mcg/actuation nasal spray Administer 2 sprays into each nostril daily. 11/07/17 Yes Kalen Cardoso MD PhD gabapentin (NEURONTIN) 300 mg capsule Take 2 capsules (600 mg total) by mouth in the morning and 2 capsules (600 mg total) at noon and 2 capsules (600 mg total) in the evening and 2 capsules (600 mg total) before bedtime. Yes Not In System Ref Prov glipiZIDE (GLUCOTROL) 10 mg tablet Take 1 tablet (10 mg total) by mouth in the morning. Yes Not In System Ref Prov metFORMIN (GLUCOPHAGE) 1000 mg tablet 1 tablet (1,000 mg total) in the morning and 1 tablet (1,000 mg total) in the evening. Take with meals. 08/31/17 Yes Not In System Ref Prov metoprolol tartrate (LOPRESSOR) 50 mg tablet Take 1 tablet (50 mg total) by mouth in the morning and 1 tablet (50 mg total) before bedtime. 08/29/17 Yes Not In System Ref Prov pioglitazone (ACTOS) 30 mg tablet Take 1 tablet (30 mg total) by mouth in the morning. 08/31/17 YesNot In System Ref Prov simvastatin (ZOCOR) 20 mg tablet Take 1 tablet (20 mg total) by mouth in the morning. 12/19/22 Yes Not In System Ref Prov tamsulosin (FLOMAX) 0.4 mg capsule,extended release 24hr Take 1 capsule (0.4 mg total) by mouth nightly. 08/31/17 Yes Not In System Ref Prov esomeprazole (NexIUM) 40 mg capsule Take 1 capsule (40 mg total) by mouth. Patient not taking: Reported on 06/02/2025 04/12/25 Not In System Ref Prov sucralfate (CARAFATE) 1 gram tablet Take 1 tablet (1 g total) by mouth Daily at 0630. Patient not taking: Reported on 06/02/2025 04/12/25 Not In System Ref Prov Hospital Meds Current Outpatient Medications Medication Sig Dispense Refill [...] mg total) by mouth in the morning. tamsulosin (FLOMAX) 0.4 mg capsule,extended release 24hr Take 1 capsule (0.4 mg total) by mouth nightly. esomeprazole (NexIUM) 40 mg capsule Take 1 capsule (40 mg total) by mouth. (Patient not taking: Reported on 06/02/2025) sucralfate (CARAFATE) 1 gram tablet Take 1 tablet (1 g total) by mouth Daily at 0630. (Patient not taking: Reported on 06/02/2025) No current facility-administered medications for this visit. Social History Social History Socioeconomic History Marital status: Spouse [...] on file Food Insecurity: No Food Insecurity (02/20/2025) Hunger Screening Food Insecurity - Worry: Never True Food Insecurity - Inability: Never True Transportation Needs: Not on file Physical Activity: Not on file Stress: Not on file Social Connections: Not on file Interpersonal Safety: Unknown (12/07/2023) Received from [facility] Environment Fear of Current or Ex-Partner: Not on file Emotionally Abused: Not on file Physically Abused: Not on file Sexually Abused: Not on file Physically or Sexually Abused: Not on file Housing Instability: Not on file Family History Family History Problem Relation Age of Onset Diabetes Mother Heart disease Father Breast cancer Sister Diabetes Brother No Known Problems Son Kidney disease Maternal Grandmother Diabetes Maternal Grandfather No Known Problems Paternal Grandmother No Known Problems Paternal Grandfather Anesthesia problems Neg Hx Review of Systems Pertinent items are noted in HPI. All other systems reviewed and are negative. Physical Examination Vital Signs: BP 136/80 Pulse 75 Ht 170.2 cm (5' 7.01 ) Wt 85.3 kg (188 lb) SpO2 95% BMI 29.44 kg/m General appearance: Pleasant gentleman no acute distress with stable vital signs Head: Normocephalic, without obvious abnormality, atraumatic Eyes: Conjunctivae/corneas clear. PERRL, EOM's intact. Fundi benign Neck: no adenopathy, no carotid bruit, no JVD, supple, symmetrical, trachea midline, and thyroid: not enlarged, symmetric, no tenderness/mass/nodules Lungs: clear to auscultation bilaterally Heart: regular rate and rhythm and systolic murmur: early systolic 3/6, crescendo absent S2 Abdomen: Soft, non-tender. Bowel sounds normal. No masses, no organomegaly Extremities: extremities normal, atraumatic, no cyanosis or edema Skin: Skin color, texture, turgor normal. No rashes or lesions Neurologic: Grossly normal Previous Test Results Cardiac Cath: Multiple 80% lesions in the LAD, including high-grade lesion in the 1st diagonal. 80%lesion in the mid marginal branch. 50-60% mid RCA lesion. Echo/Stress: Preserved ventricular function with no focal wall motion abnormalities. Heavily calcified aortic valve, potentially bicuspid with suggestion of fusion of left and right coronary cusps. Mean gradient 43 mmHg. EKG: No acute ST-T changes CXR: Ordered and pending Labs CBC: BMP: PT/INR: APTT: MAG: D Dimer: Troponin I BNP Assessment Diagnosis: Active Problems: * No active hospital problems. 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 Repeat echo shows fairly impressive worsening valve disease compared to previous. Basedon development of symptoms and echo findings, worthwhile to pursue intervention on the valve at this point. Found to have hemodynamically significant multivessel coronary disease. Taken in combination, patient likely best served with operative approach to address all of his cardiac pathology. Discussed treatment options including surgery and staged percutaneous intervention in extensive detail with the patient and his . Operative mortality risk quoted between 1 and 3%. After discussion, he i ndicated a preference for surgery. Informed consent was obtained, and we will plan on operation of the near-term future. Based on previous history of right lower extremity revascularization, we will obtain lower extremity vein mapping as part of preoperative workup. Patient encouraged for tobacco cessation preoperatively. documented in this encounterTrumbull Regional Medical Center07-23-2025 History of Present illness Narrative* AGGIE Beaver - 05/07/2025 11:27 AM EDT Images from the original note were not included. Patient Name: Darin Thacker : 1950 Multi-disciplinary Case Review Mr. Thacker was reviewed at the multidisciplinary structural heart case review on 05/07/2025 In Attendance were TINO Kramer MD, Manny Ramon MD, Tesha Carl MD, Brayan Carrion MD, Katja Ramon MD, Brayan Mathur MD, Orlin Partida MD, Katja Oliva MD, Jordan Franco PA-C, Wolf Jacques RN, and Miryam Washington RN Reason: Provider: Nia Pertinent Testing Pertinent PMH: PVD w/ hx RLE fem-pop 2021, active tobacco use, HTN, HLP, DM NOHEMI 04/29/24 (MMM): EF 60-65%, mod LVH, moderately reduced AV leaflet excursion, bicuspid fusion of L and RCC with raphe noted, echogenic density on commissures in form of nodularity with some mobile portions likely degeneration, mild AI, mod (27, 1.12, 342, DI 0.25), trace TR TTE 04/14/25: EF 65-70%, small LV, normal RV size/function, mild AI, very severe (43, 0.65) Cardiac cath 05/01/25 (BD): essentially normal L/R filling pressures, mild pulm HTN (36/19, 28), normal CO by Candis and Thermo, multivessel CAD -will need broader multidisciplinary discussion regardingvalve disease and CAD TAVR CTA 05/09/25: pending Lab Results Component Value Date WBC 6.6 04/25/2025 HGB 16.4 04/25/2025 HCT 48.0 04/25/2025 MCV 92 04/25/2025 PLT 170 04/25/2025 Lab Results Component Value Date CREATININE 0.67 04/25/2025 CrCl cannot be calculated (Patient's most recent lab result is older than the maximum 7 days allowed.). .FLOWAMB[11 Wt Readings from Last 1 Encounters: 05/01/25 83.9 kg (185 lb) There is no height or weight on file to calculate BMI. Estimated body surface area is 1.99 meters squared as calculated from the following: Height as of 05/01/25: 170.2 cm (5' 7 ). Weight as of 05/01/25: 83.9 kg (185 lb). Summary/Recommendation The cardiac history was reviewed as well as all available cardiac images. Discussion: is severe. Recommend TAVR if feasible (TAVR CTA pending) given co-morbidities. Recommendation: Await TAVR CTA. Arrange formal CT surgery evaluation. Manage CAD medically. AGGIE BEAVER PA 05/07/25 1137 documented in this encounterTrumbull Regional Medical Center07-22-2025 Miscellaneous Notes* Telephone Encounter - Sarakadie Funes - 05/06/2025 4:15 PM EDT Pt called [facility] stating a few days after his cath his wrist (cath site) hurts. He states that the site actually looks good with no swelling, it is not red nor is it warm/hot to the touch. Informed pt he is fine to take tylenol and ice the site for relief. He v/u and will call office back if having any worsening symptoms. documented in this encounterTrumbull Regional Medical Center07-22-2025 Telephone encounter Note* Telephone Encounter - Sarakatja Funes - 05/06/2025 4:15 PM EDT Pt called [facility] stating a few days after his cath his wrist (cath site) hurts. He states that the site actually looks good with no swelling, it is not red nor is it warm/hot to the touch. Informed pt he is fine to take tylenol and ice the site for relief. He v/u and will call office back if having any worsening symptoms. [facility]07-10-2025 Miscellaneous Notes* Telephone Encounter - Ashley Parker - 04/24/2025 10:44 AM EDT Patient called & says that he found out he has some major cardiac issues he just found out he has to take care of first & foremost. He does have an ulcer so he will call us back about an appointment for that barbara. He was referred by PCP. Also called on: 04/22 SCHEDULED 05/01/25 APPT 04/21 TRC documented in this encounterTrumbull Regional Medical Center07-10-2025 Telephone encounter Note* Telephone Encounter - Ashley Parker - 04/24/2025 10:44 AM EDT Patient called & says that he found out he has some major cardiac issues he just found out he has to take care of first & foremost. He does have an ulcer so he will call us back about an appointment for that barbara. He was referred by PCP. Also called on: 04/22 SCHEDULED 05/01/25 APPT 04/21 TRC [facility]07-08-2025 Telephone encounter Note* Telephone Encounter - Anni Root - 04/22/2025 1:[address] Barroso' office called to let you know that they tried to schedule Darin for an appointment according to your referral. He told them that he is having cardiac issues and is seeing a compensation consulting manager in [place]. They have closed his referral. When he is ready to see them, he will need another referral. [facility] [id number] Miscellaneous Notes* Telephone Encounter - Anni Root - 04/22/2025 1:[address] Barroso' office called to let you know that they tried to schedule Darin for an appointment according to your referral. He told them that he is having cardiac issues and is seeing a compensation consulting manager in [place]. They have closed his referral. When he is ready to see them, he will need another referral. documented in this encounterCarondelet [id number] Miscellaneous Notes* Telephone Encounter - Gabriella Newton CMA - 04/22/2025 1:12 PM EDT Patient called & says that he found out he has some major cardiac issues he just found out he has to take care of first & foremost. He does have an ulcer so he will call us back about an appointment for that barbara. He was referred by PCP . I called PCP & let them know we will close the referral for now. documented in this encounterTrumbull Regional Medical Center07-08-2025 Telephone encounter Note* Telephone Encounter - Gabriella Newton CMA - 04/22/2025 1:12 PM EDT Patient called & says that he found out he has some major cardiac issues he just found out he has to take care of first & foremost. He does have an ulcer so he will call us back about an appointment for that barbara. He was referred by PCP . I called PCP & let them know we will close the referral for now. [facility]07-07-2025 History of Present illness Narrative* Sara Funes - 04/21/2025 2:59 PM EDT Images from the original note were not included. Per PKR pt scheduled next avail TAVR CTA on 05-09 at 1:40 at [facility]. Instructions listed below given to pt at appt. [facility] Structural Heart Clinic: Cardiac CT Instructions Procedure: CT Date/Time of Procedure: Friday May 09, 2025 at 1:40p. MUST ARRIVE 30 MINUTES EARLY. Testing Location: [facility] ([place] [address]) Registration Location: Entrance D PRE PROCEDURE REQUIREMENTS (All requirements must be completed prior to procedure or may result in cancellation) Fasting Instructions: [x] No solid food 4 hrs prior to exam. Please drink plenty of clear fluids (ie: water, apple juice)up to 2 hrs prior to exam. Medication Instructions: Take all your medication with a small sip of water only. Important Information: Please notify the [facility] Clinic if you have an allergy to contrast dye Please bring your most recent insurance card(s), photo ID, and current list of medications If you have any questions or concerns about preparing for your procedure, please call the [facility] Clinic at [phone] documented in this encounterTrumbull Regional Medical Center07-07-2025 Miscellaneous Notes* Addendum Note - Sara Funes - 04/21/2025 2:59 PM EDTAddended by: SARA FUNES on: 04/21/2025 03:22 PM Modules accepted: Orders documented in this encounterTrumbull Regional Medical Center07-07-2025 Note* Addendum Note - Sara Funes - 04/21/2025 2:59 PM EDTAddended by: SARA FUNES on: 04/21/2025 03:22 PM Modules accepted: Orders [facility]07-07-2025 History of Present illness Narrative* Sara Funes - 04/21/2025 2:50 PM EDT Images from the original note were not included. Per PKR pt scheduled next avail Cath on 05-01-25 at 10:30am. Instructions listed below given to pt at appt. [facility] Structural [facility] Clinic: Cardiac Cath Procedure: Cardiac Cath Physician: Elvira Talbert Location: [facility] ([address] [place] [address]) Date/Time of Procedure: April at 10:30a Registration Location: Entrance C, parking lot P3, ARRIVE BY 9:00a (Please be aware that procedure dates/times are subject to change due to unforeseen emergencies) PRE PROCEDURE REQUIREMENTS (All requirements must be completed prior to procedure or may result in cancellation) [x] Pre-Procedure Labs: To be completed at any [facility] outpatient lab between 04/21/25-04/28/25. Orders are already in the computer. NO FASTING REQUIRED. Fasting Instructions: [x] NO FOOD OR DRINK for 6 HOURS PRIOR TO PROCEDURE Medication Instructions: Take all your medications with a small sip of water only. Other Instructions: [x] Must have a fuel truck driver as you will be unable to drive once discharged Important Information: Notify the [facility] of any illness, infection or COVID symptoms or a COVID positive result immediately at [phone] Please notify the [facility] if you have an allergy to contrast dye You may or may not go home the same day of your procedure. Please prepare an overnight bag in case you do stay overnight Please bring your most recent insurance card(s), photo ID, and current list of medications Please be aware, procedures are subject to date/time changes due to unforeseen schedule changes or emergencies at the hospital If you have any questions or concerns about preparing for your procedure, please call the [facility] at [phone] documented in this encounterTrumbull Regional Medical Center07-07-2025 History of Present illness Narrative* P Cristopher Kramer MD - 04/21/2025 2:00 PM EDT Images from the original note were not included. [facility] Darin Thacker Date of visit: 04/21/2025 Date of : 1950 Age: 75 y.o. Chief Complaint Patient presents with New Patient INTERFACE DEVELOPER REFERRED BY DINO FOR -TTE 04/14/25-APPT SCHED W PT Cardiac Valve Problem Dental Inquiry Dental: February 2025. [facility]. Full upper dentures, missing several rear molars. No other dental issues noted. History of Present Illness Darin Thacker 75-year-old gentleman with significant peripheral vascular disease who was referred to the structural Heart Clinic with severe aortic stenosis Talking to the patient his main symptom is fatigue. However, because his peripheral vascular disease he can only walk between 300-600 feet and then he stops. I do think that if he walked more he would get shortness of breath. When I asked the patient this, he agrees His diagnoses are 1. Severe symptomatic aortic stenosis a mean gradient of 43 mm Hg aortic valve area 0.65 cm2 2. Severe peripheral vascular disease with right lower extremity bypass in 2021 , fem-pop 3. Ongoing tobacco use 4. Hypertension 5. Hyperlipidemia 6. Diabetes We discussed obtaining a right and left heart catheterization, we discussed getting the TAVR protocol CTA, once the testing is complete then we will see him back in the structural heart clinic with stephanie Current Outpatient Medications Medication Sig Dispense Refill amLODIPine (NORVASC) 5 mg tablet Take 1 tablet (5 mg total) by mouth in the morning. clopidogreL (PLAVIX) 75 mg tablet Take 1 tablet (75 mg total) by mouth in the morning. 90 tablet 3 cyanocobalamin 1000 MCG tablet Take 1 tablet (1,000 mcg total) by mouth in the morning. esomeprazole (NexIUM) 40 mg capsule Take 1 capsule (40 mg total) by mouth. FARXIGA 10 mg tablet 1 mg in [...] mg total) by mouth in the morning. sucralfate (CARAFATE) 1 gram tablet Take 1 tablet (1 g total) by mouth Daily at 0630. tamsulosin (FLOMAX) 0.4 mg capsule,extended release 24hr Take 1 capsule (0.4 mg total) by mouth nightly. traZODone (DESYREL) 50 mg tablet Take 1 tablet (50 mg total) by mouth nightly. TAKE 1 TABLET (50 MG) BY MOUTH AT BEDTIME No current facility-administered medications for this visit. Allergies Allergen Reactions Ciprofloxacin Hives Penicillins Trulicity [Dulaglutide] GI Disturbance Victoza 2-Bandar [Liraglutide] Patient Active Problem List Diagnosis Sebaceous cyst Claudication Primary hypertension Pre-op exam Draining postoperative wound Obesity (BMI 30.0-34.9) Nonrheumatic aortic (valve) stenosis Palatal lesion Tinnitus Hearing loss Cigarette smoker motivated to quit Past Medical History: Diagnosis Date Allergies Anxiety Back pain Benign prostatic hyperplasia Dental disease Depression Diabetes mellitus ([facility]) Diabetes mellitus type 2, controlled [place] Eczema HL (hearing loss) Hyperlipidemia Hypertension Injury of back Kidney stone Obesity PAD (peripheral artery disease) right foot pain Pneumonia Psoriasis Past Surgical History: Procedure Laterality Date BYPASS ARTERY FEMORAL POPLITEAL WITH VEIN GRAFT RIGHT Right 11/10/2021 Performed by Omid Ricks MD at [facility] COLONOSCOPY 12/02/2016 Dr. Li COLONOSCOPY 11/17/2006 Dr. Li HAND SURGERY Right MOUTH BIOPSY 08/10/2022 throat Right Leg Angiogram Right 09/30/2021 Performed by Omid Ricks MD at [facility] C[facility]ATH [facility] ROTATOR CUFF REPAIR Bilateral Dr. Ribeiro 2009; Dr. Vidal 2011 rt leg angio Right 08/24/2022 Performed by Omid Ricks MD at [facility] CARD[facility]ATH [facility] SKIN BIOPSY 2009 [...] on file Food Insecurity: No Food Insecurity (02/20/2025) Hunger Screening Food Insecurity - Worry: Never True Food Insecurity - Inability: Never True Transportation Needs: Not on file Physical Activity: Not on file Stress: Not on file Social Connections: Not on file Interpersonal Safety: Unknown (12/07/2023) Received from [facility] Fear of Current or Ex-Partner: Not on file Emotionally Abused: Not on file Physically Abused: Not on file Sexually Abused: Not on file Physically or Sexually Abused: Not on file Housing Instability: Not on file Current Outpatient Medications Medication Sig Dispense Refill amLODIPine (NORVASC) 5 mg tablet Take 1 tablet (5 mg total) by mouth in the morning. clopidogreL (PLAVIX) 75 mg tablet Take 1 tablet (75 mg total) by mouth in the morning. 90 tablet 3 cyanocobalamin 1000 MCG tablet Take 1 tablet (1,000 mcg total) by mouth in the morning. esomeprazole (NexIUM) 40 mg capsule Take 1 capsule (40 mg total) by mouth. FARXIGA 10 mg tablet 1 mg in [...] mg total) by mouth in the morning. sucralfate (CARAFATE) 1 gram tablet Take 1 tablet (1 g total) by mouth Daily at 0630. tamsulosin (FLOMAX) 0.4 mg capsule,extended release 24hr Take 1 capsule (0.4 mg total) by mouth nightly. traZODone (DESYREL) 50 mg tablet Take 1 tablet (50 mg total) by mouth nightly. TAKE 1 TABLET (50 MG) BY MOUTH AT BEDTIME No current facility-administered medications for this visit. Review of Systems Review of Systems Constitutional: Positive for malaise/fatigue. HENT: Negative for nosebleeds. Eyes: Negative for blurred vision and double vision. Cardiovascular: Negative for leg swelling. Respiratory: Negative for cough, shortness of breath and wheezing. Hematologic/Lymphatic: Bruises/bleeds easily. Skin: Negative for rash. Musculoskeletal: Negative for joint pain, joint swelling, muscle cramps and muscle weakness. Gastrointestinal: Positive for abdominal pain. Negative for heartburn, nausea and vomiting. Due to recent dx of ulcers Genitourinary: Negative for hematuria. Neurological: Negative for dizziness, headaches, light-headedness and weakness. Psychiatric/Behavioral: Negative for depression. The patient is not nervous/anxious. CARDIOVASCULAR: Please review HPI. Physical Examination BP 154/86 Pulse 75 Ht 170.2 cm (5' 7.01 ) Wt 84.8 kg (187 lb) SpO2 93% BMI 29.28 kg/m CONSTITUTIONAL: cooperative, alert and oriented, well developed, well nourished, in no acute distress SKIN: warm and dry to touch HEAD:normocephalic, no tenderness EYES:conjuctivae and lids unremarkable, funduscopic exam and visual carter not performed, EOMS intact NECK: no JVD CHEST: clear to auscultation and percussion, normal A-P diameter, no use of accessory muscles CARDIAC: regular rhythm, S1, S2, 4-6 systolic murmur Murmur noted ABDOMEN: abdomen soft, bowel sounds normoactive, no masses, non-tender, no bruits PERIPHERAL PULSES: pulses full and equal in all extremities, no bruits auscultated EXTREMITIES and BACK: no cyanosis present, no clubbing present, no edema present PSYCHIATRIC: appropriate mood, memory and judgement NEUROLOGICAL: no gross motor or sensory deficits noted Cardiac Testing LAST ECHO (Within 2 Years) Echo complete W/ contrast Result Date: 04/14/2025 Left Ventricle: Left ventricle is small. Systolic function is normal with an ejection fraction of 65-70%. The quantitative EF by 2D Aguilar biplane is 67%. Grade I diastolic dysfunction (impaired relaxation) is present. Right Ventricle: Right ventricular size appears normal. Systolic function is normal. Aortic Valve: There is mild regurgitation. There is very severe stenosis. The calculated aortic valve area is 0.65 cm2. The calculated aortic valve peak gradient is 85.00 mmHg. The calculated aortic valve mean gradient is 43.00 mmHg. Echo NOHEMI Result Date: 04/29/2024 Left Ventricle: Left ventricle appears normal in size. There is moderate increased wall thickness/hypertrophy. Systolic function is normal with an ejection fraction of 60-65%. Aortic Valve: The leaflets exhibit moderately reduced excursion. The leaflets are moderately calcified. Bicuspid with fusion of the left and right coronary cusp with a raphe noted. There is echogenic density on the commissures in form of nodularity with some mobile portions. This is likely degeneration. Under the right clinical setting would worry about possibility of endocarditis. Would correlate clinically on this. There is mild regurgitation. There is moderate stenosis. The calculated aortic valve area is 1.12 cm2.The calculated aortic valve peak gradient is 47.00 mmHg. The calculated aortic valve mean gradient is 27.00 mmHg. DVI above a 0.25 Tricuspid Valve: There is trace regurgitation. Aorta: There is gradeII plaque in the aorta. LAST STRESS (Within 2 Years) No results found. EKG: No results found. CATH: No results found. (Within 2 Years) LAST LABS: CBC: Lab Results Component Value Date WBC 7.9 11/12/2021 HGB 14.2 11/12/2021 HCT 41.5 11/12/2021 MCV 90 11/12/2021 PLT 192 11/12/2021 BMP: Lab Results Component Value Date GLU 173 (H) 11/12/2021 CALCIUM 8.5 11/12/2021 SODIUM 138 11/12/2021 K 3.8 11/12/2021 CO2 27 11/12/2021 BUN 13 11/12/2021 CREATININE 0.52 (L) 11/12/2021 PT/INR: @INR3@ Lipids: Lab Results Component Value Date CHOL 148 (L) 04/14/2025 CHOL 164 07/25/2018 Lab Results Component Value Date HDL 44 04/14/2025 HDL 40 07/25/2018 Lab Results Component Value Date LDLCALC 67 04/14/2025 LDLCALC 85 07/25/2018 Lab Results Component Value Date TRIG 186 (H) 04/14/2025 TRIG 197 (H) 07/25/2018 No results found for: CHOLHDL Changes Made Orders Placed or Reconciled This Encounter Medications esomeprazole (NexIUM) 40 mg capsule Sig: Take 1 capsule (40 mg total) by mouth. sucralfate (CARAFATE) 1 gram tablet Sig: Take 1 tablet (1 g total) by mouth Daily at 0630. traZODone (DESYREL) 50 mg tablet Sig: Take 1 tablet (50 mg total) by mouth nightly. TAKE 1 TABLET (50 MG) BY MOUTH AT BEDTIME There are no discontinued medications. IMPRESSIONS/PLAN Encounter Diagnosis Name Primary? Nonrheumatic aortic valve stenosis Recommendations: 1. 75-year-old woman with severe symptomatic aortic stenosis, severe peripheral vascular disease, ongoing tobacco use, hypertension hyperlipidemia diabetes We would recommend having a right and left heart catheterization, TAVR protocol CTA and then have him come back to the structural heart clinic so that we can further discuss how to proceed in terms of treatment of his valvular disease +/- coronary disease TODAYS ORDERS No orders of the defined types were placed in this encounter. FOLLOW UP No follow-ups on file. PCP: TONYA DYE, FINGERPRINT EXPERT-COLLECTION SUPPORT SPECIALIST Referring Physician: Vanessa Persaud PA-C [address] [place] [address] documented [facility] Miscellaneous Notes* Addendum Note - Fiorella Garzon CNA - 04/21/2025 2:00 PM EDTAddended by: FIORELLA GARZON on: 04/21/2025 03:07 PM Modules accepted: Orders documented in this encounterTr[facility]07-07-2025 Note* Addendum Note - Fiorella Garzon CNA - 04/21/2025 2:00 PM EDTAddended by: FIORELLA GARZON on: 04/21/2025 03:07 PM Modules accepted: Orders [facility]07-02-[facility] History of Present illness Narrative* Mellisa Gomez - 04/16/2025 2:17 PM EDT SHC TRACKER documented in this encounterTrumbull [facility]07-02-2025 Telephone encounter Note* Telephone Encounter - Tonya Dye NP - 04/16/2025 8:11 AM EDT Contact pt, call him, he will need a EGD scope to look at that stomach ulcer, is he willing to see Dr chio gold at [facility]? [place] [facility] [id number] Miscellaneous Notes* Telephone Encounter - Tonya Dye NP - 04/16/2025 8:11 AM EDT Contact pt, call him, he will need a EGD scope to look at that stomach ulcer, is he willing to see Dr chio gold at [facility]? [place] documented in this encounterCarondelet [id number] History of Present illness Narrative* Tonya Dye NP - 04/08/2025 1:52 PM [...] rate, automated Amylase Lipase documented in this encounterCarondelet [id number] Instructions* Patient Instructions* Tonya Dye NP - 04/08/2025 1:00 PM EDT Get labs done Soft diet, bland foods, if worsening pain go to the ER We will order US of gallbladder, fax order to [facility], they will call you about scheduling this documented in this encounterCarondelet [id number] History of Present illness Narrative* Tonya Dye NP - 03/27/2025 2:56 PM [...] last year: yes Specialist: vascular, eye doctor, compensation consulting manager HCPOA/Living Will: no Concerns: none Hypertension This [...] being taken. 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 SUBJECTIVE: MEDICATIONS: Current Outpatient [...] of the risks of continued smoking: stroke, MT, all forms of cancer, lung disease, and [...] of the risks of continued smoking: stroke, MT, all forms of cancer, lung disease, and [...] shoes, freq foot checks documented in this [facility]06-12-2025 Instructions* Patient Instructions* Tonya Dye NP - 03/27/2025 2:00 PM EDT No dose changes to meds Keep up good work on avoiding Little Debbies For sleep: add trazodone 50mg pill, take about an hour before bed After a few weeks let me know if the dose is working or not If confusion, depression occur call me documented in this [facility]06-02-2025 Miscellaneous Notes* Telephone Encounter - Marie Zambrano CMA - 03/17/2025 3:44 PM EDT Spoke to patient per Jessica , bypass is open , left is moderate will continue to watch . Lynn look good documented in this encounterTr[facility]06-02-2025 Telephone encounter Note* Telephone Encounter - Marie Zambrano CMA - 03/17/2025 3:44 PM EDT Spoke to patient per Jessica , bypass is open , left is moderate will continue to watch . Lynn look good [facility]05-14-2025 Miscellaneous Notes* Telephone Encounter - Erika Palacios LPN - 02/26/2025 2:40 PM EDT Quality Control Lab Tech called pt and left a vmm regarding patients carotid ultrasound results that show very minimal carotid stenosis. Patient may wait until his already scheduled appt to return next year. documented in this encounterTrumbull [facility]05-14-2025 Telephone encounter Note* Telephone Encounter - Erika Palacios LPN - 02/26/2025 2:40 PM EDT Quality Control Lab Tech called pt and left a vmm regarding patients carotid ultrasound results that show very minimal carotid stenosis. Patient may wait until his already scheduled appt to return next year. [facility] History of Present illness Narrative* Jessica Méndez, FINGERPRINT EXPERT-COLLECTION SUPPORT SPECIALIST - 02/20/2025 3:00 PM EDT Images from the original note were not included. [facility] VASCULAR [address] [id number] Subjective: Patient ID: Darin Thacker is a [...] (325 mg total) by mouth daily with breakfast.,Disp: , Rfl: fluticasone (FLONASE) 50 mcg/actuation nasal spray, Administer 2 sprays into each nostril daily., Disp: 16 g, Rfl: 11 gabapentin (NEURONTIN) 300 mg capsule, Take 2 capsules (600 mg total) by mouth in the morning and 2capsules (600 mg total) at noon and 2 capsules (600 mg total) in the evening and 2 capsules (600 mgtotal) before bedtime., Disp: , Rfl: glipiZIDE (GLUCOTROL) 10 mg tablet, Take 1 tablet (10 mg total) by mouth in the morning., Disp: , Rfl: metFORMIN (GLUCOPHAGE) 1000 mg tablet, 1 tablet (1,000 mg total) in the morning and 1 tablet (1,000mg total) in the evening. Take with meals., [...] past medical history, past social history, past surgicalhistory and problem list. Review of Systems: Review of Systems Constitutional: Negative for appetite change, chills, diaphoresis, fatigue and fever. HENT: Negative for congestion, facial swelling, nosebleeds, sinus pressure, sore throat and troubleswallowing. Eyes: Negative for pain, redness and visual disturbance. Respiratory: Negative for cough, chest tightness, shortness of breath and wheezing. Cardiovascular: Negative for chest pain, palpitations and leg swelling. Gastrointestinal: Negative for abdominal distention, abdominal pain, constipation, diarrhea, nauseaand vomiting. Genitourinary: Negative for dysuria, flank pain, frequency, hematuria and urgency. Musculoskeletal: Negative for arthralgias and joint swelling. Skin: Negative for pallor, rash and wound. Neurological: Negative for dizziness, syncope, facial asymmetry, weakness, light-headedness, numbness and headaches. Objective: Vitals BP 159/75 (BP Site: Left Arm, BP Postition: Sitting, BP CUFF SIZE: M (9-13 inches)) Pulse 81 Ht170.2 cm (5' 7 ) Wt 83.9 kg [...] to below-knee popliteal artery bypass with vein [id number]. Recent arterial duplex imaging reviewed. Bypass shows good patency. Patient denies any complaints of recurrent lower extremity claudication or tissue loss. On exam both feet are warm and pink. He has an easily palpable right dorsal pedal pulse and strong signals in the left dorsal pedal. We discussed continued conservative measures with exercise regimen. Discussed smoking cessation. Raheelwill plan to see him back in 1 [...] Reyes APRN-CNP 02/20/25 1510 documented in this encounterTr[facility]ull [facility]04-03-2025 Miscellaneous Notes* Telephone Encounter - Ambrocio Knott - 01/16/2025 3:24 PM EDT Called patient to inform patient or appt change with dr how[facility] [place] [facility]; M to call the office if this didn't work for him; please assist if needed documented in this encounterTrumbull [facility]04-03-2025 Telephone encounter Note* Telephone Encounter - Ambrocio Knott - 01/16/2025 3:24 PM EDT Called patient to inform patient or appt change with dr howell on 02/20 in [place] to jessica karin CNP[facility] [place] location but at 300 instead; LVM to call the office if this didn't work for him; please assist if needed [facility]04-03-2025 Miscellaneous Notes* Telephone Encounter - Ambrocio Knott - 01/16/2025 2:50 PM EDT Called patient to inform patient of appt change; patient is now seeing jessica karin same day but at the [place] location at 3pm; LVM with information and if need to rescheduled to give us a call; please assist if neccessary documented in this encounterTr[facility]ull [facility]04-03-2025 Telephone encounter Note* Telephone Encounter - Ambrocio Knott - 01/16/2025 2:50 PM EDT Called patient to inform patient of appt change; patient is now seeing jessica méndez same day but at the [place] location at 3pm; LVM with information and if need to rescheduled to give us a call; please assist if neccessary [facility]03-[facility] History of Present illness Narrative* Vanessa Persaud PA-C - 01/13/2025 9:00 AM EDT Darin Thacker Date of visit: 01/13/2025 Date [...] He moves a lot when the weather iswarmer on his [address] 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 Since his peripheral vascular valve bypass has been feeling well. Continues to smoke about 4-5 cigarettes every other day. No episodes of syncope Past Medical History: Diagnosis Date Allergies Anxiety Back pain Benign prostatic hyperplasia Dental disease Depression Diabetes mellitus ([facility]) Diabetes mellitus type 2, controlled ([facility]) Eczema HL (hearing loss) Hyperlipidemia Hypertension Injury of back Kidney stone Obesity PAD (peripheral artery disease) ([facility]) right foot pain Pneumonia Psoriasis No data recorded No data recorded No data recorded Past Surgical History: Procedure Laterality Date BYPASS ARTERY FEMORAL POPLITEAL WITH VEIN GRAFT RIGHT Right 11/10/2021 Performed by Omid Ricks MD at [facility] COLONOSCOPY 12/02/2016 Dr. Li COLONOSCOPY 11/17/2006 Dr. Li HAND SURGERY Right MOUTH BIOPSY 08/10/2022 throat Right Leg Angiogram Right 09/30/2021 Performed by Omid Ricks MD at [facility]ATH [facility] ROTATOR CUFF REPAIR Bilateral Dr. Ribeiro 2009; Dr. Vidal 2011 rt leg angio Right 08/24/2022 Performed by Omid Ricks MD at [facility] SKIN BIOPSY 2009 [...] Interpersonal Safety: Unknown (12/07/2023) Received from [facility] Fear of Current or Ex-Partner: Not on file Emotionally Abused: Not on file Physically Abused: Not on file Sexually Abused: Not on file Physically or Sexually Abused: Not on file Housing Instability: Not on file Review of Systems Review of Systems Constitutional: Negative for malaise/fatigue. HENT: Positive for hearing loss ([place]OU[place]). Negative for nosebleeds. Respiratory: Negative for cough, [...] CUFF SIZE: M (9-13 inches)) Pulse 94 Ht170.2 cm (5' 7 ) Wt 86.5 kg [...] asymptomatic, no syncope, euvolemic. Seen with Dr. Siu in the office. TODAYS ORDERS Orders Placed This Encounter Procedures Lipid panel Echo complete W/O contrast FOLLOW UP Return in about 6 months (around 07/15/2025). PCP: PAWEL MALDONADO Referring Physician: PAWEL Maldonado [address] [place] [address] Vanessa Persaud PA-C 01/13/25 0947 documented in this encounterTr[facility]ull [facility] Center03-31-2025 Instructions* Patient Instructions* Vanessa Persaud PA-C - 01/13/2025 9:00 AM EDT Are You Ready To Kick The Habit? Free Tobacco Cessation Resources [facility] Tobacco Treatment Center Services [facility] Tobacco Treatment Centers provide all employees with free tobacco cessation services that include: Counseling to understand nicotine addiction Education about medications that can help you successfully quit Assistance with developing a plan to quit Call to set up an individual appointment or find out when group classes will be held: [facility]: [phone] [facility]: [phone] [facility]: [phone] [facility]: [phone] Quit Smoking Action Plan and Resources [facility] offers an eight-week, online smoking cessation plan to all [facility] employees, regardless of whether [place] is your medical insurance provider. Go to www.[employer].org/employeewellness and click the Health Risk Assessment and Resources link to get started. In the Obkzg2Hfgkjb menu, click Action Plans instead of Health Risk Assessment to access the Quit Smoking Action Plan. Additional smoking cessation resources are also available to all [facility] employees on the Zzfnv6Mrgkby web page at www.[employer]quitsmoking. [place] Tobacco Cessation Program If [place] is your medical insurance provider, there are more free resources available to you, including: No copays or deductibles on local tobacco cessation counseling services to help you quit Prescription assistance for tobacco cessation medications to help you quit For details about the tobacco cessation program available to [employer] [place] members, go to www.[employer] (Search: Tobacco Cessation Program). [place] Tobacco Quit Line 7-902-AHYO-NOW ( ) is a toll-free, telephonic service that helps [place] residents quit smoking and using tobacco. It is staffed by experts who tailor a quit plan for you and provide you with advice. [place] Tobacco Quit Line 6-889-IGZR-NOW ( ) is a toll-free, telephonic service that helps [place] residents quit smoking and using tobacco. It is staffed by experts who tailor a quit plan for you and provide you with advice. Two weeks of nicotine replacement therapy may be provided at no charge, if needed. Additional Resources These national organizations also offer free information and resources to help you quit tobacco: [place] [employer]--www.cancer.org/healthy/stayawayfromtobacco [place] Heart [employer]--www.heart.org (Search: Quit Smoking) Centers for Disease Control and Prevention--www.cdc.gov/tobacco [place] Lung Association--www.lungusa.org Echocardiogram in 3-4 months documented in this encounterTr[facility]ull [facility]03-28-2025 Miscellaneous Notes* Telephone Encounter - Tali Naidu - 01/10/2025 8:58 AM EDT Called pt to confirm appt Monday KM and to bring current list of meds, photo id, and insurance card. Pt confirmed documented in this encounterTriHealth Bethes[facility] Butler HospitalComply Serve [id number] Telephone encounter Note* Telephone Encounter - Tali Naidu - 01/10/2025 8:58 AM EDT Called pt to confirm appt Monday KM and to bring current list of meds, photo id, and insurance card. [facility] History of Present illness Narrative* MARCELLO CHOWDARY - 11/20/2024 2:00 PM EST Pt states he would like a refill on his fluticasone (Flonase) 50 MCG/ACT nasal spray * Tonya Dye NP - 11/20/2024 2:00 PM EST Images from the original note were not [...] and PVD. Pertinent negatives for diabetic complications includeno CVA. Risk factors for coronary artery disease include diabetes mellitus, dyslipidemia, hypertension, male sex, obesity, sedentary lifestyle and tobacco exposure. Current diabetic treatment includes oral agent (triple therapy). He is compliant with treatment all of the time. His overall blood glucose range is 130-140 mg/dl. An SANTOS inhibitor/angiotensin II receptor shima is being taken. 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 Hypertension This is a [...] obesity, sedentary lifestyle and smoking/tobacco exposure. Hypertensive end- organ damage includes PVD. There is no history [...] right Psoriasis (CMS/HCC) PVD (peripheral vascular disease) ([facility]/HCC) Retinopathy, diabetic, bilateral (CMS/HCC) Ringing in ears, right Seasonal allergies Sebaceous cyst Tobacco user Uncontrolled type 2 diabetes mellitus with hyperglycemia ([facility]/HCC) Vitamin B12 deficiency Past Surgical History: [...] List Items Addressed This Visit HTN (hypertension) ([facility]) - Primary Current meds: amlodipine and b shima Hyperlipidemia ([facility]) On statin therapy Recommend yearly lab checks and prn dose changes PAD (peripheral artery disease) ([facility]/HCC) (Chronic) Continues with vascular doctor Current meds: plavix, statin Recommend good BP and DM control Tobacco user The patient has been advised of the risks of continued smoking: stroke, MT, all forms of cancer, lung disease, and . Options for quitting smoking include: cold turkey, hypnosis, acupuncture, nicotine replacement meds(gum, lozenges, and patches), Buproprion, and Varenicline. At this time pt is encouraged to evaluate their goals for wanting to quit smoking, and reach out toprovider when ready to start this process Type 2 diabetes mellitus with unspecified diabetic retinopathy without macular edema (CMS/HCC) Allergic rhinitis Relevant Medications fluticasone (Flonase) 50 MCG/ACT nasal spray Overweight (BMI 25.0-29.9) Type 2 diabetes mellitus with circulatory disorder, without long-term current use of insulin (CMS/HCC) Check blood sugars daily, notify if [...] mellitus, without long-term current use of insulin (CMS/HCC) Check blood sugars daily, notify if [...] MATIAS, actos, and metformin A1c 8.9% 11/20/24 Relevant [...] type 2 diabetes mellitus with hyperglycemia (CMS/HCC) * Tonya Dey NP - 11/20/2024 6:59 AM ESTAssociated Problem(s): Tobacco user The patient has been advised of the risks of continued smoking: stroke, MT, all forms of cancer, lung disease, and . Options for quitting smoking include: cold turkey, hypnosis, acupuncture, nicotine replacement meds(gum, lozenges, and patches), Buproprion, and Varenicline. At this time pt is encouraged to evaluate their goals for wanting to quit smoking, and reach out toprovider when ready to start this process * Tonya Dye NP - 11/20/2024 6:59 AM ESTAssociated Problem(s): Hyperlipidemia ([facility]) On statin therapy Recommend yearly lab checks and prn dose changes * Tonya Dye NP - 11/20/2024 6:58 AM ESTAssociated Problem(s): Iron deficiency anemia Check labs * Tonya Dye NP - 11/20/2024 6:57 AM ESTAssociated Problem(s): Type 2 diabetes mellitus, without long-term current use of insulin ([facility]) Check blood sugars daily, notify if <70 [...] MATIAS, actos, and metformin A1c 8.9% 11/20/24 * Tonya Dye NP - 11/20/2024 6:56 AM ESTAssociated Problem(s): Type 2 diabetes mellitus with circulatory disorder, without long-term current use of insulin ([facility]) Check blood sugars daily, notify if <70 [...] diet low in carbohydrates, and simple sugars. * Tonya Dye NP - 11/20/2024 6:55 AM ESTAssociated Problem(s): PAD (peripheral artery disease) ([facility]) Continues with vascular doctor Current meds: plavix, statin Recommend good BP and DM control * Tonya Dye NP - 11/20/2024 6:54 AM ESTAssociated Problem(s): HTN (hypertension) ([facility]) Please check blood pressure daily and record DASH diet Limit caffeine Take medication as directed Contact office if chest pain, pressure, dizziness, shortness of breath, swelling legs Recommend slow position changes Current meds: amlodipine and b shima * Tonya Dye NP - 11/20/2024 6:53 AM ESTAssociated Problem(s): Heart failure, unspecified (CMS/HCC) Per ECHO findings Farxiga and b shima therapy * Tonya Dye NP - 11/20/2024 6:48 AM ESTAssociated Problem(s): Type 2 diabetes mellitus with diabetic polyneuropathy (CMS/HCC) Is currently taking gabapentin OARRS reviewed Recommend tight blood sugar control documented in this encounterCarondelet [id number] Instructions* Patient Instructions* Tonya Dye NP - 11/20/2024 2:00 PM EST Cut back on your Little Debbies, and more exercise please I would like you to take your farxiga with supper every night, no matter if your blood sugar is less than 120 documented in this [facility]11-05-2024 History of Present illness Narrative* Tonya Dye NP - 08/20/2024 2:56 PM ESTAssociated Problem(s): Bilateral carotid bruits Hx PAD, CAD , HTN and DM Check US * Tonya Dye NP - 08/20/2024 2:47 PM ESTAssociated Problem(s): Diverticulitis Currently no symptoms * Tonya Dye NP - 08/20/2024 2:47 PM ESTAssociated Problem(s): BPH (benign prostatic hyperplasia) Improved with increase dose of flomax No other work up at this time * Tonya Dye NP - 08/20/2024 2:44 PM ESTAssociated Problem(s): Hemorrhage due to aspirin therapy Was in hospital with GI bleeding, so asa was discontinued * MARCELLO CHOWDARY - 08/20/2024 2:20 PM EST 133 fasting BS * Tonya Dye NP - 08/20/2024 2:20 PM EST Images from the original note were not [...] is unchanged. The problem is controlled. Associated symptomsinclude peripheral edema. Pertinent negatives include no blurred [...] with treatment all of the time. His overallblood glucose range is 130-140 mg/dl. An SANTOS inhibitor/angiotensin II receptor shima is not beingtaken. 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 SUBJECTIVE: MEDICATIONS: Current Outpatient [...] right Psoriasis (CMS/HCC) PVD (peripheral vascular disease) ([facility]/HCC) Retinopathy, diabetic, bilateral (CMS/HCC) Ringing in ears, right Seasonal allergies Sebaceous cyst Tobacco user Uncontrolled type 2 diabetes mellitus with hyperglycemia ([facility]/HCC) Vitamin B12 deficiency Past Surgical History: [...] work up at this time HTN (hypertension) (CMS/HCC) Please check blood pressure daily and record DASH diet Limit caffeine Take medication as directed Contact office if chest pain, pressure, dizziness, shortness of breath, swelling legs Recommend slow position changes PAD (peripheral artery disease) (CMS/HCC) (Chronic) Cont plavix, and statin Relevant Orders Vascular US carotid artery duplex bilateral Tobacco user The patient has been advised of the risks of continued smoking: stroke, MT, all forms of cancer, lung disease, and . Options for quitting smoking include: cold turkey, hypnosis, acupuncture, nicotine replacement meds(gum, lozenges, and patches), Buproprion, and Varenicline. At this time pt is encouraged to evaluate their goals for wanting to quit smoking, and reach out toprovider when ready to start this process Diabetic polyneuropathy associated with type 2 diabetes mellitus ([facility]) Continue with gabapentin Tight glucose control Diverticulitis Currently no symptoms Overweight (BMI 25.0-29.9) Type 2 diabetes mellitus, without long-term current use of insulin ([facility]) - Primary Check blood sugars daily, notify [...] Orders Vascular US carotid artery duplex bilateral * Tonya Dye NP - 08/20/2024 7:02 AM ESTAssociated Problem(s): Tobacco user The patient has been advised of the risks of continued smoking: stroke, MT, all forms of cancer, lung disease, and . Options for quitting smoking include: cold turkey, hypnosis, acupuncture, nicotine replacement meds(gum, lozenges, and patches), Buproprion, and Varenicline. At this time pt is encouraged to evaluate their goals for wanting to quit smoking, and reach out toprovider when ready to start this process * Tonya Dye NP - 08/20/2024 7:01 AM ESTAssociated Problem(s): Type 2 diabetes mellitus, without long-term current use of insulin ([facility]) Check blood sugars daily, notify if <70 [...] sugars. UTD on A1c test as well * Tonya Dye NP - 08/20/2024 7:01 AM ESTAssociated Problem(s): Diabetic polyneuropathy associated with type 2 diabetes mellitus ([facility]) Continue with gabapentin Tight glucose control * Tonya Dye NP - 08/20/2024 6:55 AM ESTAssociated Problem(s): PAD (peripheral artery disease) ([facility]) Cont plavix, and statin * Tonya Dye NP - 08/20/2024 6:55 AM ESTAssociated Problem(s): HTN (hypertension) ([facility]) Please check blood pressure daily and record DASH diet Limit caffeine Take medication as directed Contact office if chest pain, pressure, dizziness, shortness of breath, swelling legs Recommend slow position changes documented in this encounterCarondelet [id number] Instructions* Patient Instructions* Tonya Dye NP - 08/20/2024 2:20 PM EST [facility] should call about [place] Sound of carotid arteries, if no call in 10 days, call this office documented in this encounterCarondelet [id number] History of Present illness Narrative* Tonya Dye NP - 07/22/2024 3:03 PM EDTAssociated Problem(s): Acute gastritis without hemorrhage Symptoms improved with use of PPI, as well as carafate Will have him restart the pantoprazole Fu in 4 weeks * MARCELLO CHOWDARY - 07/22/2024 1:40 PM EDT Average fast bs is 140-160s [place] [facility], but realized that [facility] where the [facility]m supply * Tonya Dye NP - 07/22/2024 1:40 PM EDT Images from the original note were not included. Darin Thacker is a 74 y.o. male presents with chief complaint of No chief complaint on file. HPI: [facility] ER 07/03/24 abd pain Hx diverticulitis, 03/08 Upper abd, achy, burning pain. 04/24. + nausea, no vomiting no fever, +diarrhea, no urinary symptomsno bloody stool or urine No radiation. Went to [facility] ER, had labs and CT scan, sent home with meds Now: slight discomfort to upper abd, intermittent, not worse after eating, does drink coffee (1 1/2cups daily), +tobacco. The medications took away the [...] Bradycardia DDD (degenerative disc disease), cervical Diabetes ([facility]/HCC) Diabetic polyneuropathy associated with type 2 diabetes mellitus ([facility]/HCC) Foraminal stenosis of cervical region Frequent PVCs Hearing loss Heart murmur HTN (hypertension) (CMS/HCC) Hyperlipidemia (CMS/HCC) Incisional infection Lumbar radiculopathy 10/31/2023 Mass of both adrenal glands ([facility]/HCC) Neck pain Olecranon bursitis of left elbow Olecranon bursitis of right elbow PAD (peripheral artery disease) (CMS/HCC) Peripheral neuropathy Popliteal cyst, right Psoriasis ([facility]/HCC) PVD (peripheral vascular disease) ([facility]) Retinopathy, diabetic, bilateral ([facility]/HCC) Ringing in ears, right Seasonal allergies Sebaceous cyst Tobacco user Uncontrolled type 2 diabetes mellitus with hyperglycemia ([facility]) Vitamin B12 deficiency Past Surgical History: Procedure [...] (Actos) 30 MG tablet documented in this encounterCarondelet [id number] History of Present illness Narrative* Tonya Dye NP - 06/04/2024 2:11 PM EDTAssociated Problem(s): Tobacco user The patient has been advised of the risks of continued smoking: stroke, MT, all forms of cancer, lung disease, and . Options for quitting smoking include: cold turkey, hypnosis, acupuncture, nicotine replacement meds(gum, lozenges, and patches), Buproprion, and Varenicline. At this time pt is encouraged to evaluate their goals for wanting to quit smoking, and reach out toprovider when ready to start this process * Tonya Dye NP - 06/04/2024 2:11 PM EDTAssociated Problem(s): Type 2 diabetes mellitus with circulatory disorder, without long-term current use of insulin ([facility]) No changes in meds or doses Check labs Fu in 3 months * Tonya Dye NP - 06/04/2024 2:10 PM EDTAssociated Problem(s): PAD (peripheral artery disease) ([facility]) Cont plavix, and statin * Tonya Dye NP - 06/04/2024 2:10 PM EDTAssociated Problem(s): HTN (hypertension) ([facility]) No changes in med dose * Tonya Dye NP - 06/04/2024 2:10 PM EDTAssociated Problem(s): Heart murmur Reveiwed NOHEMI * Tonya Dye NP - 06/04/2024 2:10 PM EDTAssociated Problem(s): Diabetic polyneuropathy associated with type 2 diabetes mellitus ([facility]) Cont w memo * Tonya Dye NP - 06/04/2024 1:20 PM EDT Images from the original note were not included. ]p;o- Darin Thacker is a 74 y.o. male [...] There are no hypoglycemic complications. Symptoms are stable.Diabetic complications include heart disease and PVD. Risk [...] Bradycardia DDD (degenerative disc disease), cervical Diabetes ([facility]) Diabetic polyneuropathy associated with type 2 diabetes mellitus ([facility]) Foraminal stenosis of cervical region Frequent PVCs Hearing loss Heart murmur HTN (hypertension) ([facility]) Hyperlipidemia ([facility]) Incisional infection Lumbar radiculopathy 10/31/2023 Mass of both adrenal glands ([facility]) Neck pain Olecranon bursitis of left elbow Olecranon bursitis of right elbow PAD (peripheral artery disease) ([facility]) Peripheral neuropathy Popliteal cyst, right Psoriasis ([facility]) PVD (peripheral vascular disease) ([facility]) Retinopathy, diabetic, bilateral ([facility]) Ringing in ears, right Seasonal allergies Sebaceous cyst Tobacco user Uncontrolled type 2 diabetes mellitus with hyperglycemia ([facility]) Vitamin B12 deficiency Past Surgical History: Procedure Laterality Date CARPAL TUNNEL RELEASE Right 12/09/[address] AORTA AND BILATERAL ILIOFEMORAL RUNOFF ANGIOGRAM W AND/OR WO IV CONTRAST 09/07/2021 CT AORTA AND BILATERAL ILIOFEMORAL RUNOFF ANGIOGRAM W AND/OR WO IV CONTRAST 09/07/2021 ROTATOR CUFF REPAIR Left 2009 Dr Ribeiro ROTATOR CUFF REPAIR Right 2011 Dr Ribeiro ROTATOR CUFF REPAIR Right 2010 [...] Problem List Items Addressed This Visit Psoriasis (CMS/HCC) Relevant Medications triamcinolone (Kenalog) 0.1 % cream HTN (hypertension) (CMS/HCC) - Primary No changes in med dose Relevant Medications amLODIPine (Norvasc) 5 MG tablet metoprolol tartrate (Lopressor) 50 MG tablet Other Relevant Orders Basic metabolic panel PAD (peripheral artery disease) (CMS/HCC) (Chronic) Cont plavix, and statin Relevant Medications metoprolol tartrate (Lopressor) 50 MG tablet simvastatin (Zocor) 20 MG tablet Tobacco user The patient has been advised of the risks of continued smoking: stroke, MT, all forms of cancer, lung disease, and . Options for quitting smoking include: cold turkey, hypnosis, acupuncture, nicotine replacement meds(gum, lozenges, and patches), Buproprion, and Varenicline. At this time pt is encouraged to evaluate their goals for wanting to quit smoking, and reach out toprovider when ready to start this process Heart murmur Reveiwed NOHEMI Diabetic polyneuropathy associated with type 2 diabetes mellitus (CMS/HCC) Cont w memo Relevant Medications gabapentin (Neurontin) 600 MG tablet Overweight (BMI 25.0-29.9) Type 2 diabetes mellitus with circulatory disorder, without long-term current use of insulin (CMS/HCC) No changes in meds or doses Check labs Fu in 3 months Relevant Orders Hemoglobin A1c Basic metabolic panel Other Visit Diagnoses Uncontrolled type 2 diabetes mellitus with hyperglycemia (CMS/HCC) Relevant Medications dapagliflozin (Farxiga) 10 MG glipiZIDE (Glucotrol) 10 MG tablet metFORMIN (Glucophage) 1000 MG tablet pioglitazone (Actos) 30 MG tablet documented in this encounterCarondelet [id number] History of Present illness Narrative* Shen Law MD - 05/10/2024 12:30 PM EDT Darin Thacker Date of visit: 05/10/2024 Date of [...] by mouth in the morning and 1 tablet(10 mg total) in the evening. Take before [...] had a NOHEMI which showed it was moremoderate patient feels great however he has no chest pain or shortness breath he is limited by his leg rather than any type of chest pain shortness breath or lightheadedness. We had a discussion about this told him to keep an eye on his symptoms but at this point would hold off and just monitor thepatient has this point and see me in about 6 months and go from there Past Medical History: Diagnosis Date Allergies Anxiety Back pain Benign prostatic hyperplasia Dental disease Depression Diabetes mellitus ([facility] Diabetes mellitus type 2, controlled ([facility]) Eczema HL (hearing loss) Hyperlipidemia Hypertension Injury of back Kidney stone Obesity PAD (peripheral artery disease) ([facility]) right foot pain Pneumonia Psoriasis No data recorded No data recorded No data recorded Past Surgical History: Procedure Laterality Date BYPASS ARTERY FEMORAL POPLITEAL WITH VEIN GRAFT RIGHT Right 11/10/2021 Performed by Omid Ricsk MD at [facility] 12/02/2016 Dr. Li COLONOSCOPY 11/17/2006 Dr. Li HAND SURGERY Right MOUTH BIOPSY 08/10/2022 throat Right Leg Angiogram Right 09/30/2021 Performed by Omid Ricks MD at [facility] ROTATOR CUFF REPAIR Bilateral Dr. Ribeiro 2009; Dr. Vidal 2011 rt leg angio Right 08/24/2022 Performed by Omid Ricks MD at [facility] SKIN BIOPSY 2009 [...] Interpersonal Safety: Unknown (12/07/2023) Received from [facility] Fear of Current or [...] on file. PCP: PAWEL MALDONADO Referring Physician: PAWEL Maldonado [address] [place] [address] documented in this encounterKerbs Memorial HospitalSocialize [id number] Instructions* Patient Instructions* Dasha Logan CMA - 05/10/2024 12:30 PM EDT Are You Ready To Kick The Habit? Free Tobacco Cessation Resources [facility] Tobacco Treatment Center Services [facility] Tobacco Treatment Centers provide all employees with free tobacco cessation services that include: Counseling to understand nicotine addiction Education about medications that can help you successfully quit Assistance with developing a plan to quit Call to set up an individual appointment or find out when group classes will be held: [facility]: [phone] [facility]: [phone] [facility]: [phone] [facility]: [phone] Quit Smoking Action Plan and Resources [facility] offers an eight-week, online smoking cessation plan to all [facility] employees, regardless of whether [place] is your medical insurance provider. Go to [email or web address] and click the Health Risk Assessment and Resources link to get started. In the [employer] menu, click Action Plans instead of Health Risk Assessment to access the Quit Smoking Action Plan. Additional smoking cessation resources are also available to all [facility] employees on the Qkbbt6Qtgmxl web page at www.[employer]/quitsmoking. [place] Tobacco Cessation Program If [employer] is your medical insurance provider, there are more free resources available to you, including: No copays or deductibles on local tobacco cessation counseling services to help you quit Prescription assistance for tobacco cessation medications to help you quit For details about the tobacco cessation program available to [employer] members, go to www.[employer] (Search: Tobacco Cessation Program). [place] Tobacco Quit Line 4-045-NWAF-NOW ( ) is a toll-free, telephonic service that helps [place] residents quit smoking and using tobacco. It is staffed by experts who tailor a quit plan for you and provide you with advice. [place] Tobacco Quit Line 0-925-CNWR-NOW ( ) is a toll-free, telephonic service that helps [place] residents quit smoking and using tobacco. It is staffed by experts who tailor a quit plan for you and provide you with advice. Two weeks of nicotine replacement therapy may be provided at no charge, if needed. Additional Resources These national organizations also offer free information and resources to help you quit tobacco: [place] [employer]--www.cancer.org/healthy/stayawayfromtobacco [place] Heart Association--www.heart.org (Search: Quit Smoking) Centers for Disease Control and Prevention--www.cdc.gov/tobacco [place] Lung Association--www.lungusa.org documented in this encounterTr[facility]ull [facility]07-25-2024 Miscellaneous Notes* Telephone Encounter - Dasha Logan CMA - 05/09/2024 3:13 PM EDT Left message for patient to remind them to bring their most current medication list with them to their appointment. documented in this encounterTrumbull [facility] Center07-25-2024 Telephone encounter Note* Telephone Encounter - Dasha Logan CMA - 05/09/2024 3:13 PM EDT Left message for patient to remind them to bring their most current medication list with them to their appointment. [facility]07-01-2024 Miscellaneous Notes* Telephone Encounter - Ashely Cardoso - 04/15/2024 1:13 PM EDT Patient need a Refilled on his PLAVIX and this should be sent to [facility] they only sent him a 1 month supply and he need a 3 month supply he I almost out please contact patient when this is sent. Please advise * Telephone Encounter - Erika Palacios LPN - 04/15/2024 1:13 PM EDT Medication sent to pharmacy documented in this encounterTrumbull Regional Medical Center07-01-2024 Telephone encounter Note* Telephone Encounter - Asheyl Cardoso - 04/15/2024 1:13 PM EDT Patient need a Refilled on his PLAVIX and this should be sent to [facility] they only sent him a 1 month supply and he need a 3 month supply he I almost out please contact patient when this is sent. Please advise [facility]07-01-2024 Telephone encounter Note* Telephone Encounter - Erika Palacios LPN - 04/15/2024 1:13 PM EDT Medication sent to pharmacy [facility]06-14-2024 Miscellaneous Notes* Telephone Encounter - Wolfgang Monzon RN - 03/29/2024 3:01 PM EDT Received order from Carolyne at [facility] office. Patient scheduled for NOHEMI on 04/29/24 at 11 at [facility] with MMM. Notified Carolyne. documented in this encounterTrumbull [facility] Medical Center06-14-2024 Telephone encounter Note* Telephone Encounter - Wolfgang Monzon RN - 03/29/2024 3:01 PM EDT Received order from Carolyne at [facility] office. Patient scheduled for NOHEMI on 04/29/24 at 11 at [facility] with MMM. Notified Carolyne. [facility]06-14-[facility] History of Present illness Narrative* Ronnell Siu MD - 03/29/2024 2:30 PM EDT Darin Thacker Date of visit: 03/29/2024 Date [...] by mouth in the morning and 1 tablet(10 mg total) in the evening. Take before [...] presents with Follow-up EARLY FU PER TONYA AICHHOLZ ABN ECHO Hypertension History of Present Illness [...] and had some type of pleuritic discomfort inhis lower lung field regions. He felt transiently short of breath. This all subsequently resolved. He had an echo done at outside facility showing a mean gradient across his aortic valve of 41 mmHg which was significantly elevated compared to several years ago. LV function is preserved. She does not have chest pain or pressure. Does not have dizziness or lightheadedness. Does not havepresyncope or syncope of any sort. He continues to actively smoke. Past Medical History: Diagnosis Date Allergies Anxiety Back pain Benign prostatic hyperplasia Dental disease Depression Diabetes mellitus ([facility]) Diabetes mellitus type 2, controlled ([facility]) Eczema HL (hearing loss) Hyperlipidemia Hypertension Injury of back Kidney stone Obesity PAD (peripheral artery disease) ([facility]) right foot pain Pneumonia Psoriasis No data recorded No data recorded No data recorded Past Surgical History: Procedure Laterality Date BYPASS ARTERY FEMORAL POPLITEAL WITH VEIN GRAFT RIGHT Right 11/10/2021 Performed by Omid Ricks MD at [facility] 12/02/2016 Dr. Li COLONOSCOPY 11/17/2006 Dr. Li HAND SURGERY Right MOUTH BIOPSY 08/10/2022 throat Right Leg Angiogram Right 09/30/2021 Performed by Omid Ricks MD at [facility] ROTATOR CUFF REPAIR Bilateral Dr. Ribeiro 2009; Dr. Vidal 2011 rt leg angio Right 08/24/2022 Performed by Omid Ricks MD at [facility] SKIN BIOPSY 2009 [...] Interpersonal Safety: Unknown (12/07/2023) Received from [facility] [place] [facility] Fear of [...] Primary hypertension 3. Coronary artery disease involving [place] coronary artery of [place] heart without angina pectoris Nonrheumatic , severe [...] (around 06/29/2024). PCP: PAWEL MALDONADO Referring Physician: PAWEL Maldonado [address] [place] [address] documented in this encounterTrumbull Regional Medical Center06-14-2024 Instructions* Patient Instructions* Dasha Logan, [facility] - 03/29/2024 2:30 PM EDT Are You Ready To Kick The Habit? Free Tobacco Cessation Resources [facility] Tobacco Treatment Center Services [facility] Tobacco Treatment Centers provide all employees with free tobacco cessation services that include: Counseling to understand nicotine addiction Education about medications that can help you successfully quit Assistance with developing a plan to quit Call to set up an individual appointment or find out when group classes will be held: [facility]: [phone] [facility]: [phone] [facility]: [phone] [facility]: [phone] Quit Smoking Action Plan and Resources [facility] offers an eight-week, online smoking cessation plan to all [facility] employees, regardless of whether [place] is your medical insurance provider. Go to [email or web address] and click the Health Risk Assessment and Resources link to get started. In the Nwxct2Bveofr menu, click Action Plans instead of Health Risk Assessment to access the Quit Smoking Action Plan. Additional smoking cessation resources are also available to all [facility] employees on the Iupfj8Iqlkct web page at www.[employer]quitsmoking. [place] Tobacco Cessation Program If [place] is your medical insurance provider, there are more free resources available to you, including: No copays or deductibles on local tobacco cessation counseling services to help you quit Prescription assistance for tobacco cessation medications to help you quit For details about the tobacco cessation program available to [place] members, go to www.[employer] (Search: Tobacco Cessation Program). [place] Tobacco Quit Line 0-745-QPOF-NOW ( ) is a toll-free, telephonic service that helps [place] residents quit smoking and using tobacco. It is staffed by experts who tailor a quit plan for you and provide you with advice. [place] Tobacco Quit Line 5-440-DNPH-NOW ( ) is a toll-free, telephonic service that helps [place] residents quit smoking and using tobacco. It is staffed by experts who tailor a quit plan for you and provide you with advice. Two weeks of nicotine replacement therapy may be provided at no charge, if needed. Additional Resources These national organizations also offer free information and resources to help you quit tobacco: [place] Cancer [employer]--www.cancer.org/healthy/stayawayfromtobacco [place] Heart Association--www.heart.org (Search: Quit Smoking) Centers for Disease Control and Prevention--www.cdc.gov/tobacco [place] Lung Association--www.lungusa.org documented in [facility] Miscellaneous Notes* Telephone Encounter - Dasha Logan CMA - 03/28/2024 11:18 AM EDT Called patient to remind them to bring their most current copy of their medication list with them to their appt. Patient verbalizes understanding. documented in this encounterTriHealth Bethesda Butler HospitalDataRose [facility] [id number] Telephone encounter Note* Telephone Encounter - Dasha Logan CMA - 03/28/2024 11:18 AM EDT Called patient to remind them to bring their most current copy of their medication list with them to their appt. Patient verbalizes understanding. [facility]04-[facility] Evaluation + Plan note* Assessment & Plan Note - Yaenli Howell MD - 02/08/2024 10:17 AM EDTAssociated Problem(s): Claudication ([facility]-H[facility]) Arterial Duplex US RLE PVR Continue Plavix and statin. Smoking cessation. [facility]04-25-[facility] Miscellaneous Notes* Assessment & Plan Note - Yaneli Howell MD - 02/08/2024 10:17 AM EDTAssociated Problem(s): Claudication ([facility]-H[facility]) Arterial Duplex US RLE PVR Continue Plavix and statin. Smoking cessation. * Addendum Note - Yaneli Howell MD - 02/08/2024 10:00 AM EDTAddended by: YANELI HOWELL on: 02/08/2024 11:45 AM Modules accepted: Orders documented in this encounterTrumbull [facility] Center04-25-2024 History of Present illness Narrative* Yaneli Howell MD - 02/08/2024 10:00 AM EDT Images from the original note were not included. To: TONYA DYE, RAFITA-COLLECTION SUPPORT SPECIALIST HPI: Darin Thacker is a 73 y.o. [...] by mouth in the morning and 1 tablet(10 mg total) in the evening. Take before [...] prostatic hyperplasia Dental disease Depression Diabetes mellitus ([facility]) Diabetes mellitus type 2, controlled ([facility]) Eczema HL (hearing loss) Hyperlipidemia Hypertension Injury of back Kidney stone Obesity PAD (peripheral artery disease) ([facility]) right foot pain Pneumonia Psoriasis Past Surgical History: Past Surgical History: Procedure Laterality Date BYPASS ARTERY FEMORAL POPLITEAL WITH VEIN GRAFT RIGHT Right 11/10/2021 Performed by Omid Ricks MD at [facility] COL[facility] 12/02/2016 Dr. Li COLONOSCOPY 11/17/2006 Dr. Li HAND SURGERY Right MOUTH BIOPSY 08/10/2022 throat Right Leg Angiogram Right 09/30/2021 Performed by Omid Ricks MD at [facility] ROTATOR CUFF REPAIR Bilateral Dr. Ribeiro 2009; Dr. Vidal 2011 rt leg angio Right 08/24/2022 Performed by Omid Ricks MD at [facility] SKIN BIOPSY 2009 [...] Interpersonal Safety: Unknown (12/07/2023) Received from [facility] Fear of Current or [...] PVR Assessment and Plan: Problem List Claudication ([facility]) - Primary Overview Added automatically from request for surgery [id number] Current Assessment & Plan Arterial Duplex US RLE PVR Continue Plavix and statin. Smoking cessation. Cigarette smoker motivated to quit Overview Counseled on smoking cessation in length. For at least 4 minutes Darin was seen today for pad and claudication. Diagnoses and all orders for this visit: Claudication (CMS-HCC) Cigarette smoker motivated to quit Yaneli Howell MD, TIFFANY, RPVI, FSVS, FACS [facility] This note was created with the assistance of a speech recognition program. While intending to generate a timely document that accurately reflects the content of the visit, no guarantee can be provided that every grammatical or spelling mistake has been or will be identified or corrected. Thank you for your understanding. documented in this encounterTrumbull [facility] Medical Center04-25-2024 Instructions* Patient Instructions* Yaneli Howell MD - 02/08/2024 10:00 AM EDT Are You Ready To Kick The Habit? Free Tobacco Cessation Resources [facility] Tobacco Treatment Center Services [facility] Tobacco Treatment Centers provide all employees with free tobacco cessation services that include: Counseling to understand nicotine addiction Education about medications that can help you successfully quit Assistance with developing a plan to quit Call to set up an individual appointment or find out when group classes will be held: [facility]: [phone] [facility]: [phone] [facility]: [phone] [facility]: [phone] Quit Smoking Action Plan and Resources [facility] offers an eight-week, online smoking cessation plan to all [facility] employees, regardless of whether [place] is your medical insurance provider. Go to [email or web address] and click the Health Risk Assessment and Resources link to get started. In the [employer] menu, click Action Plans instead of Health Risk Assessment to access the Quit Smoking Action Plan. Additional smoking cessation resources are also available to all [facility] employees on the Oajud8Xeclkb web page at www.[employer]/quitsmoking. [place] Tobacco Cessation Program If [place] is your medical insurance provider, there are more free resources available to you, including: No copays or deductibles on local tobacco cessation counseling services to help you quit Prescription assistance for tobacco cessation medications to help you quit For details about the tobacco cessation program available to [place] members, go to www.[employer] (Search: Tobacco Cessation Program). [place] Tobacco Quit Line 2-183-QRTZ-NOW ( ) is a toll-free, telephonic service that helps [place] residents quit smoking and using tobacco. It is staffed by experts who tailor a quit plan for you and provide you with advice. [place] Tobacco Quit Line 8-372-IPGV-NOW ( ) is a toll-free, telephonic service that helps [place] residents quit smoking and using tobacco. It is staffed by experts who tailor a quit plan for you and provide you with advice. Two weeks of nicotine replacement therapy may be provided at no charge, if needed. Additional Resources These national organizations also offer free information and resources to help you quit tobacco: [place] Cancer Society--www.cancer.org/healthy/stayawayfromtobacco [place] Heart Association--www.heart.org (Search: Quit Smoking) Centers for Disease Control and Prevention--www.cdc.gov/tobacco [place] Lung Association--www.lungusa.org documented in this encounterKerbs [facility] HospitalBomoda04-25-2024 Note* Addendum Note - Yaneli Howell MD - 02/08/2024 10:00 AM EDTAddended by: YANELI HOWELL on: 02/08/2024 11:45 AM Modules accepted: Orders [facility] History of Present illness Narrative* Tonya Dye NP - 11/29/2023 4:38 PM ESTAssociated Problem(s): 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 Will order CT sinuses to see if chronic sinusitis is part of the problem * Tonya Dye NP - 11/29/2023 4:36 PM ESTAssociated Problem(s): Sebaceous cyst Still waiting on approval from vascular to stop plavix for proceedure * Tonya Dye NP - 11/29/2023 4:34 PM ESTAssociated Problem(s): Uncontrolled type 2 diabetes mellitus with [...] at this time 3 months ago 7.8% * Tonya Dye NP - 11/29/2023 4:34 PM ESTAssociated Problem(s): HTN (hypertension) (CMS/[facility]) No changes needed in medication regimine * MARCELLO CHOWDARY - 11/29/2023 3:20 PM EST Left elbow- 6m no pain has psoriasis Right elbow-13m no pain has psoriasis Fluid from bursitis Had an eye exam last week-eyes were good the bleeding from diabetes has not gotten worse. * Tonya Dye NP - 11/29/2023 3:20 PM EST Images from the original note were not [...] complications include peripheral neuropathy and PVD. Risk factorsfor coronary artery disease include diabetes mellitus, dyslipidemia, [...] being taken. 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 Hypertension This is a [...] SINUS WO IV CONTRAST BMI 29.0-29.9,adult Diabetes (CMS/HCC) Relevant Orders Hemoglobin A1c HTN (hypertension) (CMS/[facility]) - Primary No changes needed in medication regimine Sebaceous cyst Still waiting on approval from vascular to stop plavix for proceedure [employer] Relevant Orders CT SINUS WO IV CONTRAST documented in this encounterCarondelet [id number] Evaluation note* Encounter Date Diagnosis Assessment Notes Treatment Notes Treatment Clinical Notes Oct, Olecranon bursitis, left elbow ( ICD-10 - M70.22) Radiographs reviewed in detail with [...] on compression wrapping as needed. Call with questions/concerns. Oct,Olecranon bursitis, right elbow (ICD-10 - M70.21) Oct,ain in left elbow (ICD-10 - M25.522) Oct,ain in right elbow (ICD-10 - M25.521) [employer] [facility] Other 12-29-2022 Hospital Discharge instructions Follow [facility] 10/13/2022 10:40:40 With:MANJIT WILKINS, JULIA Mays Address: [address] [place], [place] [id number]- When: only if needed General Surgery [employer] [phone] NoteOPERATIVE NOTE OPERATION DATE: 10/12/2022 PREOPERATIVE DIAGNOSIS: [...] area in good condition. CC: Tonya Dye, [facility]11-20-2022 NoteChief Complaint consultation for sebaceous cyst [...] plan excisional biopsy under local anesthesia at [facility] once inflammation has decreased; approximately4 weeks; [...] Cipro (Itching) Victoza (Itchin (more content not included)...[facility] RehabilitationComment on above:Result Comment: Electronically Signed By: MANJIT WILKINS, Bernadine Calle\Date and Time Signed: 09/04/22 11:08 [id number] Evaluation note* Encounter Date Diagnosis Assessment Notes [...] to use heat to help with motion Dec,cute deep vein thrombosis (DVT) of other specified vein of right lower extremity (ICD-10 - I82.491) [facility] Other 11-04-2021 Evaluation note* Encounter Date Diagnosis Assessment Notes Treatment Notes Treatment Clinical Notes Aug, Arthritis of right knee (ICD-10 - M17.11) Patient is doing well at this time. He will continue daily strengthening exercises and progress activity as tolerated [facility] Other 10-14-2021 Evaluation note* Encounter Date Diagnosis Assessment Notes Treatment Notes Treatment Clinical Notes Jul, Acute pain of right knee (ICD-10 - M25.561) Jul,welling of right knee joint (ICD-10 - M25.461) Jul,rthritis of right knee (ICD-10 - M17.11) Radiographs reviewed with patient. The patient is likely suffering from early degenerative arthritis involving the knee. We discussed the conservative treatment options which can be beneficial in relieving pain, including gentle non-impact motion exercise and non-steroidal anti-inflammatory medication. We discussed the use of occasional cortisone injections that can provide pain relief as well ashyaluronan lubricant injection. We performed a marcaine / kenalog cortisone injection into the knee joint under sterile technique. Patient tolerated the injection well without adverse reaction. If no improvement, may consider MRI for further evaluation for meniscal tear. [facility] Other 05-25-2021 History general Narrative - Reported* Type Description Date Medical History type II diabetes Medical HistoryHTNMedical HistorypsoriasisSurgical Historyrotator cuff tear [id number] Historyright leg angioplasty03/09/21Hospitalization Historyse [facility] Other 05-25-2021 History general Narrative - Reported* Type Description Date Medical History type II diabetes Medical HistoryHTNMedical HistorypsoriasisMedical HistoryDVTSurgical History rotator cuff tear [id number] Historyright leg angioplasty03/09/21 Hospitalization HistoryB[facility] Other Evaluation + Plan note No data available for this section General Surgery Aileen Evaluation noteNo InformationNort [employer] Other Evaluation noteNo assessment information available [facility] Work Phone: Evaluation note* Diagnosis [...] vascular disease, unspecified documented in this encounter [facility] HealthcareEvaluation [facility]* Diagnosis Acute gastritis without hemorrhage, unspecified gastritis type- Primary Overweight (BMI 25.0-29.9) Overweight Primary hypertension (CMS/HCC) Unspecified essential hypertension Uncontrolled type 2 diabetes mellitus with hyperglycemia (CMS/HCC) PAD (peripheral artery disease) (CMS/HCC) Unspecified peripheral vascular disease Benign prostatic hyperplasia (BPH) with straining on urination Diabetic polyneuropathy associated with type 2 diabetes mellitus (CMS/HCC) documented in this encounter [facility]* Diagnosis 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- Primary Primary hypertension (CMS/HCC)- Primary Unspecified essential hypertension BMI 29.0-29.9,adult Type 2 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, without long- term current use of insulin, unspecified laterality, unspecified retinopathy severity (CMS/HCC) Type 2 diabetes mellitus with diabetic neuropathy, without long-term current use of insulin (CMS/HCC) Sebaceous cyst 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 [place] Disturbances of sensation of smell and taste Peripheral vascular disease, unspecified (I73.9) Peripheral vascular disease, unspecified Diabetic polyneuropathy associated with type 2 diabetes mellitus (CMS/HCC)- Primary Urine retention Unspecified retention of urine PAD (peripheral artery disease) (CMS/HCC) Unspecified peripheral vascular disease Benign prostatic hyperplasia (BPH) with straining on urination Uncontrolled type 2 diabetes mellitus with hyperglycemia (CMS/HCC) Vitamin B12 deficiency Other B-complex deficiencies Iron deficiency anemia, unspecified iron deficiency anemia type Primary hypertension (CMS/HCC) Unspecified essential hypertension Encounter for subsequent annual wellness visit (AWV) in Medicare patient- Primary Primary hypertension ([facility]/HCC) Unspecified essential hypertension Vitamin B12 deficiency Other B-complex deficiencies Uncontrolled type 2 diabetes mellitus with hyperglycemia ([facility]/HCC) Iron deficiency anemia, unspecified iron deficiency anemia type Mixed hyperlipidemia ([facility]) Mixed hyperlipidemia Screening for prostate cancer Special screening for malignant neoplasm of prostate Benign prostatic hyperplasia (BPH) with straining on urination Tobacco user Tobacco use disorder Overweight (BMI 25.0-29.9) Overweight Pneumonia due to infectious organism, unspecified laterality, unspecified part of lung- Primary Primary hypertension ([facility]) Unspecified essential hypertension Overweight (BMI 25.0-29.9) Overweight Tobacco user Tobacco use disorder Elevated brain natriuretic peptide (BNP) level Primary hypertension ([facility])- Primary Unspecified essential hypertension Diabetic polyneuropathy associated with type 2 diabetes mellitus ([facility]) Pneumonia due to infectious organism, unspecified laterality, unspecified part of lung PAD (peripheral artery disease) ([facility]) Unspecified peripheral vascular disease Nonrheumatic aortic valve stenosis Uncontrolled type 2 diabetes mellitus with hyperglycemia ([facility]) Overweight (BMI 25.0-29.9) Overweight Tobacco user Tobacco use disorder Primary hypertension ([facility])- Primary Unspecified essential hypertension Type 2 diabetes mellitus with diabetic peripheral angiopathy without gangrene, without long-term current use of insulin ([facility]) Uncontrolled type 2 diabetes mellitus with hyperglycemia ([facility]) PAD (peripheral artery disease) ([facility]) Unspecified peripheral vascular disease Diabetic polyneuropathy associated with type 2 diabetes mellitus ([facility]) Heart murmur Undiagnosed cardiac murmurs Overweight (BMI 25.0-29.9) Overweight Tobacco user Tobacco use disorder Psoriasis ([facility]) Other psoriasis Acute gastritis without hemorrhage, unspecified gastritis type- Primary Overweight (BMI 25.0-29.9) Overweight Primary hypertension ([facility]) Unspecified essential hypertension Uncontrolled type 2 diabetes mellitus with hyperglycemia ([facility]/HCC) PAD (peripheral artery disease) ([facility]) Unspecified peripheral vascular disease Benign prostatic hyperplasia (BPH) with straining on urination Diabetic polyneuropathy associated with type 2 diabetes mellitus ([facility]) Type 2 diabetes mellitus without complication, without long-term current use of insulin ([facility])- Primary Primary hypertension ([facility]/HCC) Unspecified essential hypertension PAD (peripheral artery disease) ([facility]/HCC) Unspecified peripheral vascular disease Overweight (BMI 25.0-29.9) Overweight Diabetic polyneuropathy associated with type 2 diabetes mellitus ([facility]/HCC) Tobacco user Tobacco use disorder Hemorrhage due to aspirin therapy Benign prostatic hyperplasia (BPH) with straining on urination Diverticulitis Diverticulitis of colon (without mention of hemorrhage) Bilateral carotid bruits documented in this encounter [facility] HealthcareEvaluation note* Diagnosis Primary hypertension ([facility])- Primary Unspecified essential hypertension Type 2 diabetes mellitus with diabetic peripheral angiopathy without gangrene, without long-term current use of insulin ([facility]) Uncontrolled type 2 diabetes mellitus with hyperglycemia ([facility]) PAD (peripheral artery disease) ([facility]) Unspecified peripheral vascular disease Diabetic polyneuropathy associated with type 2 diabetes mellitus ([facility]) Heart murmur Undiagnosed cardiac murmurs Overweight (BMI 25.0-29.9) Overweight Tobacco user Tobacco use disorder Psoriasis ([facility]) Other psoriasis documented in this encounter [facility] HealthcareEvaluation note* Diagnosis 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- Primary Primary hypertension ([facility])- Primary Unspecified essential hypertension BMI 29.0-29.9,adult Type 2 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, without long- term current use of insulin, unspecified laterality, unspecified retinopathy severity ([facility]) Type 2 diabetes mellitus with diabetic neuropathy, without long-term current use of insulin ([facility]) Sebaceous cyst 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 Ageusia Disturbances of sensation of smell and taste Peripheral vascular disease, unspecified (I73.9) Peripheral vascular disease, unspecified Diabetic polyneuropathy associated with type 2 diabetes mellitus ([facility])- Primary Urine retention Unspecified retention of urine PAD (peripheral artery disease) ([facility]) Unspecified peripheral vascular disease Benign prostatic hyperplasia (BPH) with straining on urination Uncontrolled type 2 diabetes mellitus with hyperglycemia ([facility]) Vitamin B12 deficiency Other B-complex deficiencies Iron deficiency anemia, unspecified iron deficiency anemia type Primary hypertension ([facility]/HCC) Unspecified essential hypertension Encounter for subsequent annual wellness visit (AWV) in Medicare patient- Primary Primary hypertension ([facility]) Unspecified essential hypertension Vitamin B12 deficiency Other B-complex deficiencies Uncontrolled type 2 diabetes mellitus with hyperglycemia ([facility]) Iron deficiency anemia, unspecified iron deficiency anemia type Mixed hyperlipidemia ([facility]/HCC) Mixed hyperlipidemia Screening for prostate cancer Special screening for malignant neoplasm of prostate Benign prostatic hyperplasia (BPH) with straining on urination Tobacco user Tobacco use disorder Overweight (BMI 25.0-29.9) Overweight Pneumonia due to infectious organism, unspecified laterality, unspecified part of lung- Primary Primary hypertension ([facility]) Unspecified essential hypertension Overweight (BMI 25.0-29.9) Overweight Tobacco user Tobacco use disorder Elevated brain natriuretic peptide (BNP) level Primary hypertension ([facility])- Primary Unspecified essential hypertension Diabetic polyneuropathy associated with type 2 diabetes mellitus ([facility]) Pneumonia due to infectious organism, unspecified laterality, unspecified part of lung PAD (peripheral artery disease) ([facility]) Unspecified peripheral vascular disease Nonrheumatic aortic valve stenosis Uncontrolled type 2 diabetes mellitus with hyperglycemia ([facility]) Overweight (BMI 25.0-29.9) Overweight Tobacco user Tobacco use disorder Primary hypertension ([facility])- Primary Unspecified essential hypertension Type 2 diabetes mellitus with diabetic peripheral angiopathy without gangrene, without long-term current use of insulin ([facility]) Uncontrolled type 2 diabetes mellitus with hyperglycemia ([facility]) PAD (peripheral artery disease) ([facility]) Unspecified peripheral vascular disease Diabetic polyneuropathy associated with type 2 diabetes mellitus ([facility]) Heart murmur Undiagnosed cardiac murmurs Overweight (BMI 25.0-29.9) Overweight Tobacco user Tobacco use disorder Psoriasis ([facility]) Other psoriasis Acute gastritis without hemorrhage, unspecified gastritis type- Primary Overweight (BMI 25.0-29.9) Overweight Primary hypertension ([facility]) Unspecified essential hypertension Uncontrolled type 2 diabetes mellitus with hyperglycemia ([facility]) PAD (peripheral artery disease) ([facility]) Unspecified peripheral vascular disease Benign prostatic hyperplasia (BPH) with straining on urination Diabetic polyneuropathy associated with type 2 diabetes mellitus ([facility]) Type 2 diabetes mellitus without complication, without long-term current use of insulin ([facility])- Primary Primary hypertension ([facility]) Unspecified essential hypertension PAD (peripheral artery disease) ([facility]) Unspecified peripheral vascular disease Overweight (BMI 25.0-29.9) Overweight Diabetic polyneuropathy associated with type 2 diabetes mellitus ([facility]) Tobacco user Tobacco use disorder Hemorrhage due to aspirin therapy Benign prostatic hyperplasia (BPH) with straining on urination Diverticulitis Diverticulitis of colon (without mention of hemorrhage) Bilateral carotid bruits Uncontrolled type 2 diabetes mellitus with hyperglycemia ([facility])- Primary Type 2 diabetes mellitus with diabetic peripheral angiopathy without gangrene ([facility]) Type 2 diabetes mellitus with unspecified diabetic retinopathy without macular edema ([facility]) Heart failure, unspecified ([facility]) Heart failure, unspecified Type 2 diabetes mellitus with hyperglycemia ([facility]) Type 2 diabetes mellitus with diabetic polyneuropathy ([facility] Primary hypertension ([facility]) Unspecified essential hypertension PAD (peripheral artery disease) ([facility]) Unspecified peripheral vascular disease Type 2 diabetes mellitus with diabetic peripheral angiopathy without gangrene, without long-term current use of insulin ([facility]) Overweight (BMI 25.0-29.9) Overweight Type 2 diabetes mellitus with hyperglycemia, without long-term current use of insulin ([facility]) Mixed hyperlipidemia ([facility]) Mixed hyperlipidemia Tobacco user Tobacco use disorder Allergic rhinitis, unspecified seasonality, unspecified trigger Diabetic polyneuropathy associated with type 2 diabetes mellitus ([facility]) Acute gastritis without hemorrhage, unspecified gastritis type documented in this encounter [facility] HealthcareEvaluation note* Diagnosis Claudication ([facility])- Primary Unspecified peripheral vascular disease Cigarette smoker motivated to quit documented in this encounter [facility] SystemEvaluation note* Diagnosis Primary hypertension- Primary Unspecified essential hypertension Nonrheumatic aortic (valve) stenosis Coronary artery disease involving [place] coronary artery of [place] heart without angina pectoris documented in this encounter [facility] SystemEvaluation note* Diagnosis Primary hypertension- Primary Unspecified essential hypertension Nonrheumatic aortic (valve) stenosis documented in this encounter [facility] SystemEvaluation note* Diagnosis Claudication- Primary Unspecified peripheral vascular disease Cigarette smoker motivated to quit Moderate aortic valve stenosis- Primary Aortic valve disorders Mixed hyperlipidemia documented in this encounter [facility] SystemEvaluation note* Diagnosis 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- Primary Primary hypertension ([facility])- Primary Unspecified essential hypertension BMI 29.0-29.9,adult Type 2 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, without long- term current use of insulin, unspecified laterality, unspecified retinopathy severity ([facility]) Type 2 diabetes mellitus with diabetic neuropathy, without long-term current use of insulin ([facility]) Sebaceous cyst 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 Ageusia Disturbances of sensation of smell and taste Peripheral vascular disease, unspecified (I73.9) Peripheral vascular disease, unspecified Diabetic polyneuropathy associated with type 2 diabetes mellitus ([facility])- Primary Urine retention Unspecified retention of urine PAD (peripheral artery disease) ([facility]) Unspecified peripheral vascular disease Benign prostatic hyperplasia (BPH) with straining on urination Uncontrolled type 2 diabetes mellitus with hyperglycemia ([facility]) Vitamin B12 deficiency Other B-complex deficiencies Iron deficiency anemia, unspecified iron deficiency anemia type Primary hypertension ([facility]) Unspecified essential hypertension Encounter for subsequent annual wellness visit (AWV) in Medicare patient- Primary Primary hypertension ([facility]) Unspecified essential hypertension Vitamin B12 deficiency Other B-complex deficiencies Uncontrolled type 2 diabetes mellitus with hyperglycemia ([facility]) Iron deficiency anemia, unspecified iron deficiency anemia type Mixed hyperlipidemia ([facility]) Mixed hyperlipidemia Screening for prostate cancer Special screening for malignant neoplasm of prostate Benign prostatic hyperplasia (BPH) with straining on urination Tobacco user Tobacco use disorder Overweight (BMI 25.0-29.9) Overweight Pneumonia due to infectious organism, unspecified laterality, unspecified part of lung- Primary Primary hypertension ([facility]) Unspecified essential hypertension Overweight (BMI 25.0-29.9) Overweight Tobacco user Tobacco use disorder Elevated brain natriuretic peptide (BNP) level Primary hypertension ([facility])- Primary Unspecified essential hypertension Diabetic polyneuropathy associated with type 2 diabetes mellitus ([facility]) Pneumonia due to infectious organism, unspecified laterality, unspecified part of lung PAD (peripheral artery disease) ([facility]) Unspecified peripheral vascular disease Nonrheumatic aortic valve stenosis Uncontrolled type 2 diabetes mellitus with hyperglycemia ([facility]) Overweight (BMI 25.0-29.9) Overweight Tobacco user Tobacco use disorder Primary hypertension ([facility])- Primary Unspecified essential hypertension Type 2 diabetes mellitus with diabetic peripheral angiopathy without gangrene, without long-term current use of insulin ([facility]) Uncontrolled type 2 diabetes mellitus with hyperglycemia ([facility]) PAD (peripheral artery disease) ([facility]) Unspecified peripheral vascular disease Diabetic polyneuropathy associated with type 2 diabetes mellitus ([facility]) Heart murmur Undiagnosed cardiac murmurs Overweight (BMI 25.0-29.9) Overweight Tobacco user Tobacco use disorder Psoriasis Other psoriasis Acute gastritis without hemorrhage, unspecified gastritis type- Primary Overweight (BMI 25.0-29.9) Overweight Primary hypertension ([facility]) Unspecified essential hypertension Uncontrolled type 2 diabetes mellitus with hyperglycemia ([facility]) PAD (peripheral artery disease) ([facility]) Unspecified peripheral vascular disease Benign prostatic hyperplasia (BPH) with straining on urination Diabetic polyneuropathy associated with type 2 diabetes mellitus ([facility]) Type 2 diabetes mellitus without complication, without long-term current use of insulin- Primary Primary hypertension ([facility]) Unspecified essential hypertension PAD (peripheral artery disease) ([facility]) Unspecified peripheral vascular disease Overweight (BMI 25.0-29.9) Overweight Diabetic polyneuropathy associated with type 2 diabetes mellitus ([facility]) Tobacco user Tobacco use disorder Hemorrhage due to aspirin therapy Benign prostatic hyperplasia (BPH) with straining on urination Diverticulitis Diverticulitis of colon (without mention of hemorrhage) Bilateral carotid bruits Uncontrolled type 2 diabetes mellitus with hyperglycemia ([facility])- Primary Type 2 diabetes mellitus with diabetic peripheral angiopathy without gangrene ([facility]) Type 2 diabetes mellitus with unspecified diabetic retinopathy without macular edema ([facility]) Heart failure, unspecified ([facility]) Heart failure, unspecified Type 2 diabetes mellitus with hyperglycemia ([facility]) Type 2 diabetes mellitus with diabetic polyneuropathy ([facility] Primary hypertension ([facility]) Unspecified essential hypertension PAD (peripheral artery disease) ([facility]) Unspecified peripheral vascular disease Type 2 diabetes mellitus with diabetic peripheral angiopathy without gangrene, without long-term current use of insulin ([facility]) Overweight (BMI 25.0-29.9) Overweight Type 2 diabetes mellitus with hyperglycemia, without long-term current use of insulin ([facility]) Mixed hyperlipidemia ([facility]) Mixed hyperlipidemia Tobacco user Tobacco use disorder Allergic rhinitis, unspecified seasonality, unspecified trigger Diabetic polyneuropathy associated with type 2 diabetes mellitus ([facility]) Acute gastritis without hemorrhage, unspecified gastritis type Acute non-recurrent sinusitis of other sinus- Primary documented in this encounter [facility] HealthcareEvaluation note* Diagnosis Claudication- Primary Unspecified peripheral vascular disease Cigarette smoker motivated to quit PAD (peripheral artery disease)- Primary Unspecified peripheral vascular disease Claudication Unspecified peripheral vascular disease History of arterial bypass of lower extremity documented in this encounter [facility] SystemEvaluation note* Diagnosis 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- Primary Primary hypertension ([facility])- Primary Unspecified essential hypertension BMI 29.0-29.9,adult Type 2 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, without long- term current use of insulin, unspecified laterality, unspecified retinopathy severity ([facility]) Type 2 diabetes mellitus with diabetic neuropathy, without long-term current use of insulin ([facility]) Sebaceous cyst 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 Ageusia Disturbances of sensation of smell and taste Peripheral vascular disease, unspecified (I73.9) Peripheral vascular disease, unspecified Diabetic polyneuropathy associated with type 2 diabetes mellitus ([facility])- Primary Urine retention Unspecified retention of urine PAD (peripheral artery disease) ([facility]) Unspecified peripheral vascular disease Benign prostatic hyperplasia (BPH) with straining on urination Uncontrolled type 2 diabetes mellitus with hyperglycemia ([facility]) Vitamin B12 deficiency Other B-complex deficiencies Iron deficiency anemia, unspecified iron deficiency anemia type Primary hypertension ([facility]) Unspecified essential hypertension Encounter for subsequent annual wellness visit (AWV) in Medicare patient- Primary Primary hypertension ([facility]) Unspecified essential hypertension Vitamin B12 deficiency Other B-complex deficiencies Uncontrolled type 2 diabetes mellitus with hyperglycemia ([facility]) Iron deficiency anemia, unspecified iron deficiency anemia type Mixed hyperlipidemia ([facility]) Mixed hyperlipidemia Screening for prostate cancer Special screening for malignant neoplasm of prostate Benign prostatic hyperplasia (BPH) with straining on urination Tobacco user Tobacco use disorder Overweight (BMI 25.0-29.9) Overweight Pneumonia due to infectious organism, unspecified laterality, unspecified part of lung- Primary Primary hypertension ([facility]) Unspecified essential hypertension Overweight (BMI 25.0-29.9) Overweight Tobacco user Tobacco use disorder Elevated brain natriuretic peptide (BNP) level Primary hypertension ([facility])- Primary Unspecified essential hypertension Diabetic polyneuropathy associated with type 2 diabetes mellitus ([facility]) Pneumonia due to infectious organism, unspecified laterality, unspecified part of lung PAD (peripheral artery disease) ([facility]) Unspecified peripheral vascular disease Nonrheumatic aortic valve stenosis Uncontrolled type 2 diabetes mellitus with hyperglycemia ([facility]) Overweight (BMI 25.0-29.9) Overweight Tobacco user Tobacco use disorder Primary hypertension ([facility])- Primary Unspecified essential hypertension Type 2 diabetes mellitus with diabetic peripheral angiopathy without gangrene, without long-term current use of insulin ([facility]) Uncontrolled type 2 diabetes mellitus with hyperglycemia ([facility]) PAD (peripheral artery disease) ([facility]) Unspecified peripheral vascular disease Diabetic polyneuropathy associated with type 2 diabetes mellitus ([facility]) Heart murmur Undiagnosed cardiac murmurs Overweight (BMI 25.0-29.9) Overweight Tobacco user Tobacco use disorder Psoriasis Other psoriasis Acute gastritis without hemorrhage, unspecified gastritis type- Primary Overweight (BMI 25.0-29.9) Overweight Primary hypertension ([facility]) Unspecified essential hypertension Uncontrolled type 2 diabetes mellitus with hyperglycemia ([facility]) PAD (peripheral artery disease) ([facility]) Unspecified peripheral vascular disease Benign prostatic hyperplasia (BPH) with straining on urination Diabetic polyneuropathy associated with type 2 diabetes mellitus ([facility]) Type 2 diabetes mellitus without complication, without long-term current use of insulin- Primary Primary hypertension ([facility]) Unspecified essential hypertension PAD (peripheral artery disease) ([facility]) Unspecified peripheral vascular disease Overweight (BMI 25.0-29.9) Overweight Diabetic polyneuropathy associated with type 2 diabetes mellitus ([facility]) Tobacco user Tobacco use disorder Hemorrhage due to aspirin therapy Benign prostatic hyperplasia (BPH) with straining on urination Diverticulitis Diverticulitis of colon (without mention of hemorrhage) Bilateral carotid bruits Uncontrolled type 2 diabetes mellitus with hyperglycemia ([facility])- Primary Type 2 diabetes mellitus with diabetic peripheral angiopathy without gangrene ([facility]) Type 2 diabetes mellitus with unspecified diabetic retinopathy without macular edema ([facility]) Heart failure, unspecified ([facility]) Heart failure, unspecified Type 2 diabetes mellitus with hyperglycemia ([facility]) Type 2 diabetes mellitus with diabetic polyneuropathy ([facility] Primary hypertension ([facility] Unspecified essential hypertension PAD (peripheral artery disease) ([facility]) Unspecified peripheral vascular disease Type 2 diabetes mellitus with diabetic peripheral angiopathy without gangrene, without long-term current use of insulin ([facility]) Overweight (BMI 25.0-29.9) Overweight Type 2 diabetes mellitus with hyperglycemia, without long-term current use of insulin ([facility]) Mixed hyperlipidemia ([facility]) Mixed hyperlipidemia Tobacco user Tobacco use disorder Allergic rhinitis, unspecified seasonality, unspecified trigger Diabetic polyneuropathy associated with type 2 diabetes mellitus ([facility]) Acute gastritis without hemorrhage, unspecified gastritis type Primary hypertension ([facility]) Unspecified essential hypertension Allergic rhinitis, unspecified seasonality, unspecified trigger Diabetic polyneuropathy associated with type 2 diabetes mellitus ([facility]) Uncontrolled type 2 diabetes mellitus with hyperglycemia ([facility]) PAD (peripheral artery disease) ([facility]) Unspecified peripheral vascular disease Acute gastritis without hemorrhage, unspecified gastritis type documented in this encounter [facility] HealthcareEvaluation note* Diagnosis 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- Primary Primary hypertension ([facility])- Primary Unspecified essential hypertension BMI 29.0-29.9,adult Type 2 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, without long- term current use of insulin, unspecified laterality, unspecified retinopathy severity ([facility]) Type 2 diabetes mellitus with diabetic neuropathy, without long-term current use of insulin ([facility]) Sebaceous cyst 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 Ageusia Disturbances of sensation of smell and taste Peripheral vascular disease, unspecified (I73.9) Peripheral vascular disease, unspecified Diabetic polyneuropathy associated with type 2 diabetes mellitus ([facility])- Primary Urine retention Unspecified retention of urine PAD (peripheral artery disease) ([facility]) Unspecified peripheral vascular disease Benign prostatic hyperplasia (BPH) with straining on urination Uncontrolled type 2 diabetes mellitus with hyperglycemia ([facility]) Vitamin B12 deficiency Other B-complex deficiencies Iron deficiency anemia, unspecified iron deficiency anemia type Primary hypertension ([facility]) Unspecified essential hypertension Encounter for subsequent annual wellness visit (AWV) in Medicare patient- Primary Primary hypertension ([facility]) Unspecified essential hypertension Vitamin B12 deficiency Other B-complex deficiencies Uncontrolled type 2 diabetes mellitus with hyperglycemia ([facility]) Iron deficiency anemia, unspecified iron deficiency anemia type Mixed hyperlipidemia ([facility]) Mixed hyperlipidemia Screening for prostate cancer Special screening for malignant neoplasm of prostate Benign prostatic hyperplasia (BPH) with straining on urination Tobacco user Tobacco use disorder Overweight (BMI 25.0-29.9) Overweight Pneumonia due to infectious organism, unspecified laterality, unspecified part of lung- Primary Primary hypertension ([facility]) Unspecified essential hypertension Overweight (BMI 25.0-29.9) Overweight Tobacco user Tobacco use disorder Elevated brain natriuretic peptide (BNP) level Primary hypertension ([facility])- Primary Unspecified essential hypertension Diabetic polyneuropathy associated with type 2 diabetes mellitus ([facility]) Pneumonia due to infectious organism, unspecified laterality, unspecified part of lung PAD (peripheral artery disease) ([facility]) Unspecified peripheral vascular disease Nonrheumatic aortic valve stenosis Uncontrolled type 2 diabetes mellitus with hyperglycemia ([facility]) Overweight (BMI 25.0-29.9) Overweight Tobacco user Tobacco use disorder Primary hypertension ([facility])- Primary Unspecified essential hypertension Type 2 diabetes mellitus with diabetic peripheral angiopathy without gangrene, without long-term current use of insulin ([facility]) Uncontrolled type 2 diabetes mellitus with hyperglycemia ([facility]) PAD (peripheral artery disease) ([facility]) Unspecified peripheral vascular disease Diabetic polyneuropathy associated with type 2 diabetes mellitus ([facility]) Heart murmur Undiagnosed cardiac murmurs Overweight (BMI 25.0-29.9) Overweight Tobacco user Tobacco use disorder Psoriasis Other psoriasis Acute gastritis without hemorrhage, unspecified gastritis type- Primary Overweight (BMI 25.0-29.9) Overweight Primary hypertension ([facility]) Unspecified essential hypertension Uncontrolled type 2 diabetes mellitus with hyperglycemia ([facility]) PAD (peripheral artery disease) ([facility]) Unspecified peripheral vascular disease Benign prostatic hyperplasia (BPH) with straining on urination Diabetic polyneuropathy associated with type 2 diabetes mellitus ([facility]) Type 2 diabetes mellitus without complication, without long-term current use of insulin- Primary Primary hypertension ([facility]) Unspecified essential hypertension PAD (peripheral artery disease) ([facility]) Unspecified peripheral vascular disease Overweight (BMI 25.0-29.9) Overweight Diabetic polyneuropathy associated with type 2 diabetes mellitus ([facility]) Tobacco user Tobacco use disorder Hemorrhage due to aspirin therapy Benign prostatic hyperplasia (BPH) with straining on urination Diverticulitis Diverticulitis of colon (without mention of hemorrhage) Bilateral carotid bruits Uncontrolled type 2 diabetes mellitus with hyperglycemia ([facility])- Primary Type 2 diabetes mellitus with diabetic peripheral angiopathy without gangrene ([facility]) Type 2 diabetes mellitus with unspecified diabetic retinopathy without macular edema ([facility]) Heart failure, unspecified ([facility]) Heart failure, unspecified Type 2 diabetes mellitus with hyperglycemia ([facility]) Type 2 diabetes mellitus with diabetic polyneuropathy ([facility]) Primary hypertension ([facility]) Unspecified essential hypertension PAD (peripheral artery disease) ([facility]) Unspecified peripheral vascular disease Type 2 diabetes mellitus with diabetic peripheral angiopathy without gangrene, without long-term current use of insulin ([facility]/HCC) Overweight (BMI 25.0-29.9) Overweight Type 2 diabetes mellitus with hyperglycemia, without long-term current use of insulin (CMS/HCC) Mixed hyperlipidemia (CMS/HCC) Mixed hyperlipidemia Tobacco user Tobacco use disorder Allergic rhinitis, unspecified seasonality, unspecified trigger Diabetic polyneuropathy associated with type 2 diabetes mellitus ([facility]/HCC) Acute gastritis without hemorrhage, unspecified gastritis type Uncontrolled type 2 diabetes mellitus with hyperglycemia ([facility]) documented in this encounter [facility]* Diagnosis 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- Primary Primary hypertension- Primary Unspecified essential hypertension BMI 29.0-29.9,adult Type 2 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, without long- term current use of insulin, unspecified laterality, unspecified retinopathy severity ([facility]) Type 2 diabetes mellitus with diabetic neuropathy, without long-term current use of insulin ([facility]) Sebaceous cyst Anosmia due to nasal mucosa [...] or maintaining sleep documented in this encounter [facility] HealthcareEvaluation [facility]* Diagnosis Anosmia due to [...] mention of hemorrhage) documented in this encounter [facility] HealthcareEvaluation note* Diagnosis Anosmia due to [...] right upper quadrant documented in this encounter [facility] HealthcareEvaluation note* Diagnosis Anosmia due to nasal [...] Diverticulitis of colon (without mention of hemorrhage) Acute gastric ulcer without hemorrhage or perforation- Primary Acute gastric ulcer without mention of hemorrhage, perforation, or obstruction Abnormal computed tomography of abdomen and pelvis [facility] Diagnosis Claudication- Primary Unspecified peripheral vascular disease Cigarette smoker motivated to quit Nonrheumatic aortic valve stenosis Severe aortic valve stenosis- Primary Aortic valve disorders Severe aortic valve stenosis Aortic valve disorders [facility] Diagnosis Claudication- Primary Unspecified peripheral vascular disease Cigarette smoker motivated to quit Nonrheumatic aortic (valve) stenosis- Primary Severe aortic valve stenosis- Primary Aortic valve disorders Severe aortic valve stenosis Aortic valve disorders documented in this encounter [facility]* Diagnosis Anosmia due to nasal [...] Diverticulitis of colon (without mention of hemorrhage) Uncontrolled type 2 diabetes mellitus with hyperglycemia (HCC) documented in this encounter [facility]* Diagnosis Claudication- Primary Unspecified peripheral vascular disease Cigarette smoker motivated to quit Severe aortic valve stenosis- Primary Aortic valve disorders documented in this encounter [facility]* Diagnosis Claudication- Primary Unspecified peripheral vascular disease Cigarette smoker motivated to quit Nonrheumatic aortic valve stenosis- Primary documented in this encounter [facility]* Diagnosis Claudication- Primary Unspecified peripheral vascular disease Cigarette smoker motivated to quit S/P CABG (coronary artery bypass graft)- Primary Postsurgical aortocoronary bypass status S/P AVR (aortic valve replacement) Heart valve replaced by other means documented in this encounter [facility]* Diagnosis Claudication- Primary Unspecified peripheral vascular disease Cigarette smoker motivated to quit S/P CABG (coronary artery bypass graft)- Primary Postsurgical aortocoronary bypass status S/P AVR (aortic valve replacement) Heart valve replaced by other means documented in this encounter [facility]* Diagnosis Claudication- Primary Unspecified peripheral vascular disease Cigarette smoker motivated to quit S/P CABG (coronary artery bypass graft)- Primary Postsurgical aortocoronary bypass status S/P AVR (aortic valve replacement) Heart valve replaced by other means documented in this encounter [facility]* Diagnosis Claudication- Primary Unspecified peripheral vascular disease Cigarette smoker motivated to quit S/P CABG (coronary artery bypass graft)- Primary Postsurgical aortocoronary bypass status S/P AVR (aortic valve replacement) Heart valve replaced by other means documented in this encounter [facility]* Diagnosis Claudication- Primary Unspecified peripheral vascular disease Cigarette smoker motivated to quit S/P AVR (aortic valve replacement)- Primary Heart valve replaced by other means S/P CABG (coronary artery bypass graft) Postsurgical aortocoronary bypass status documented in this encounter [facility]* Diagnosis Claudication- Primary Unspecified peripheral vascular disease Cigarette smoker motivated to quit S/P CABG (coronary artery bypass graft)- Primary Postsurgical aortocoronary bypass status S/P AVR (aortic valve replacement) Heart valve replaced by other means documented in this encounter [facility]* Diagnosis Onset Date Resolution Status Admit Date Essential hypertension acuteSept2024 3:47pmGeneralized anxiety disorder with panic attacks acuteSeptember 2024 3:47pmHx of CABGacuteSept2024 3:47pm Nicotine dependenceacuteSe2024 3:47pmPanic attackacuteSept2024 3:47pmS/P aortic valve replacementacuteSe2024 3:47pm Type 2 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, without long-termacute July 14, 2025 3:47pm [facility] Work Phone: Evaluation note* Diagnosis Claudication- Primary Unspecified peripheral vascular disease Cigarette smoker motivated to quit Nonrheumatic aortic (valve) stenosis- Primary ASCVD (arteriosclerotic cardiovascular disease) Unspecified cardiovascular disease Mixed hyperlipidemia Primary hypertension Unspecified essential hypertension Postoperative atrial fibrillation ([facility]) documented in this encounter [facility]* Diagnosis Claudication- Primary Unspecified peripheral vascular disease Cigarette smoker motivated to quit S/P CABG (coronary artery bypass graft)- Primary Postsurgical aortocoronary bypass status S/P AVR (aortic valve replacement) Heart valve replaced by other means documented in this encounter [facility]* Diagnosis Claudication- Primary Unspecified peripheral vascular disease Cigarette smoker motivated to quit S/P CABG (coronary artery bypass graft)- Primary Postsurgical aortocoronary bypass status S/P AVR (aortic valve replacement) Heart valve replaced by other means Encounter for immunization documented in this encounter [facility]* Diagnosis Claudication- Primary Unspecified peripheral vascular disease Cigarette smoker motivated to quit S/P CABG (coronary artery bypass graft)- Primary Postsurgical aortocoronary bypass status S/P AVR (aortic valve replacement) Heart valve replaced by other means documented in this encounter [facility]* Diagnosis Claudication- Primary Unspecified peripheral vascular disease Cigarette smoker motivated to quit S/P CABG (coronary artery bypass graft)- Primary Postsurgical aortocoronary bypass status S/P AVR (aortic valve replacement) Heart valve replaced by other means documented in this encounter [facility]* Diagnosis Claudication- Primary Unspecified peripheral vascular disease Cigarette smoker motivated to quit S/P CABG (coronary artery bypass graft) Postsurgical aortocoronary bypass status S/P AVR (aortic valve replacement) Heart valve replaced by other means [facility] Diagnosis Claudication- Primary Unspecified peripheral vascular disease Cigarette smoker motivated to quit S/P CABG (coronary artery bypass graft) Postsurgical aortocoronary bypass status S/P AVR (aortic valve replacement) Heart valve replaced by other means [facility] No data available for this section General Surgery [place] InstructionsNot on filedocumented in this encounter [facility]ructionsNot on filedocumented in this encounter [facility] System[facility]ructionsNot on filedocumented in this encounter [facility] System[facility]ructionsNot on filedocumented in this encounter [facility] SystemInstructionsNot on filedocumented in this encounter [facility]* Attachments The following attachments cannot be sent through Care Everywhere. * Quitting smoking for adults ([place]) documented in [facility] System[facility]ructionsNot on file documented in this encounterPro[facility]ica Health SystemInstructionsNot on file documented in this encounterPro[facility]ica Health SystemInstructionsNot on file documented in this encounterPro[facility]ica Health SystemInstructionsNot on file documented in this [facility] SystemInstructions* Attachments The following attachments cannot be sent through Care Everywhere. * Quitting smoking for adults ([place]) documented in this encounter[facility] SystemInstructionsNot on file documented in this encounterProMedica Health SystemInstructionsNot on file documented in this encounterProMedica Health SystemInstructionsNot on file documented in this encounterProMedica Health SystemInstructionsNot on file documented in this encounterProMedica Health SystemInstructionsNot on file documented in this encounterProMedica Health SystemInstructionsNot on file documented in this encounterProMedica Health SystemInstructionsNot on file documented in this encounter[facility] SystemInstructionsNot on file documented in this encounterProMediData[facility] SystemProgress note No data available for this section General Surgery [address] Reason for referral (narrative)No reason for referral information [facility] Work Phone: Summary Purpose Family History Relationship Condition Age at Onset Recorded Date/T vdihya brother Diabetes mellitus Unknown fatherDeceasedUnknownRheumatic fever with cardiac involvementUnknownfamily memberDeceasedUnknownmotherDiabetes mellitusUnknownDeceasedUnknownsisterDiabetes mellitusUnknownMalignant neoplasmUnknownMalignant neoplasm of breastUnknown Advance Directives Advance Directive Response Recorded Date/ Time Advance Directives No March 04 12:18pm Date ActivatedDate InactivatedComments06/13/2025 3:06 PM06/17/2025 3:17 PM Advance Directive Response Recorded Date/ Time Advance Directives No March 04 1:18pm Date ActivatedDate InactivatedComments06/13/2025 3:06 PM06/17/2025 3:17 PM Reason for Referral SpecialtyDiagnoses / ProceduresReferred By ContactReferred To Contact Diagnoses Nonrheumatic aortic (valve) stenosis Procedures Echo NOHEMI Ronnell Siu MD [address] [place] [address] Referral IDStatusReasonStart DateExpiration DateVisits RequestedVisits [id number] Review/[id number] / ProceduresReferred By ContactReferred To Contact Diagnoses Claudication (CMS-HCC) Cigarette smoker motivated to quit Procedures Vas art duplex lwr single right Yaneli Howell MD [address], [address] [address] Phone: Referral IDStatusReasonStart DateExpiration DateVisits RequestedVisits [id number] Review/[id number] / ProceduresReferred By ContactReferred To Contact Diagnoses Claudication (CMS-HCC) Cigarette smoker motivated to quit Procedures Vas art doppler lwr bilat mult lev/PVR Yaneli Howell MD [address], [address] [address] Phone: Referral IDStatusReasonStart DateExpiration DateVisits RequestedVisits [id number] Review/[id number] / ProceduresReferred By ContactReferred To Contact Diagnoses 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 Ageusia Procedures CT SINUS WO IV CONTRAST Tonya Dye, INTERFACE DEVELOPER [address] [place] [address] Referral IDStatusReasonStart DateExpiration DateVisits RequestedVisits [id number] Review/ Chief Complaint and Reason for Visit Chief Complaint Admit Date panic attacks July 14, 2025 3:47pm Reason for Visit Admit Date Essential hypertension July 14 025 3:47pm Generalized anxiety disorder with panic attacks July 14, 2025 3:47pm Hx of CABG July 14, 2025 3:47pm Nicotine dependence July 14, 2025 3:47pm Panic attack July 14, 2025 3:47pm S/P aortic valve replacement June 172024 3:47pm 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, without long-term July 14, 2025 3:47pm Chief Complaint Admit Date panic attacks July 14, 2025 3:47pm 3W August 13, 2025 1 :33pm Reason for Visit Admit Date Essential hypertension July 14 025 3:47pm Hx of CABG July 14, [...] :33pm S/P aortic valve replacement July 1:33pm Additional Source Comments (unrecognized sect ion and content) No Status Records FoundNo Status Records FoundNo Status Records FoundNo Status Records FoundNo Status Records FoundNo Status Records FoundNo Status Records FoundNo Status Records Found INFORMATION SOURCE (unrecogn ized section and content) DATE CREATED AUTHOR 11/08/[address] [facility] DATE CREATED AUTHOR AUTHOR'S ORGANIZ ATION 10/26/2022 [facility] DATE CREATED AUTHOR AUTHOR'S ORGANIZ ATION 02/05/2023 [facility] DATE CREATED AUTHOR AUTHOR'S ORGANIZ ATION 01/05/2024 [facility] DATE CREATED AUTHOR AUTHOR'S ORGANIZ ATION 04/09/2025 [facility] DATE CREATED AUTHOR AUTHOR'S ORGANIZ ATION 06/20/2025 [facility] DATE CREATED AUTHOR AUTHOR'S ORGANIZ ATION 07/08/2025 [facility] DATE CREATED AUTHOR AUTHOR'S ORGANIZ ATION 08/12/2025 [facility] REASON FOR VISIT (unrecogniz ed section and content) ReasonCommentsDiabetesReasonCommentsPADClaudicationReasonCommentsFollow-upEARLY FU PER TONYA DYE ABN ECHOHypertensionSpecialtyDiagnoses / ProceduresReferred By ContactReferred To ContactCardiology Diagnoses Nonrheumatic aortic (valve) stenosis [facility] [address] [place] [address] [facility] [address] [place] [address] Referral IDStatusReasonStart DateExpiration DateVisits RequestedVisits [id number] Review Specialty Services Required /[id number]-pjXQSSAD UP TESTINGHypertensionReason CommentsFollow-upEST PT F/U NO TESTS -L/S TMPHypertensionReasonCommentsMedicare Annual Wellness Visit InitialReasonCommentsAbdominal PainBack PainReasonComments New PatientNP REFERRED BY KM FOR -TTE 04/14/25-APPT SCHED W PTCardiac Valve ProblemDental InquiryDental: February 2025. [facility]. Full upper dentures, missing several rear molars. No other dental issues noted.Specialty Diagnoses / ProceduresReferred By ContactReferred To ContactCardiology Diagnoses Nonrheumatic aortic valve stenosis Vanessa Persaud PA-C [address] [place] [address] Phone: tel: fax: [facility] [address] [facility] [place] [address] Phone: tel: fax: Referral IDStatusReasonStart DateExpiration DateVisits RequestedVisits [id number] Review Specialty Services Required 1ReasonOnset DateCommentsCath Iazkxflgssds69/07/2025Reason Onset DateCommentsCT Opyqdbvuhslo88/07/2025ReasonCommentsMed RefillReason CommentsFollow-upfollow up (pkr +cts)Cardiac Valve ProblemReasonCommentsNew Patientfollow up (pkr +cts)Cardiac Valve ProblemReasonCommentsFollow-upReason CommentsMed Change Request Patient Care team informatio n (unrecognized section and content) Team Status: Active Member Role Status Dates Tonya Dye Primary Care Provider Active Team Status: Inactive Member Role Status Dates Tonya Dye Primary Care Provider Active Shen Luis MDAttending ProviderActiveTeam MemberRelationshipSpecialtyStart DateEnd Date Mumtaz Jensen MD [address] [place] [address] PCP - GeneralFamily Medicine11/28/23 Tonya Dye NP [address] [place] [address] Referring PhysicianNurse Practitioner03/09/23Team MemberRelationshipSpecialty Start DateEnd Date Mumtaz Jensen MD [address] [place] [address] PCP - [facility] Medicine11/28/23 Tonya Dye NP [address] [place] [address] Referring PhysicianNurse Practitioner03/09/23Team MemberRelationshipSpecialty Start DateEnd Date Mumtaz Jensen MD [address] [place] [address] PCP - [facility]11/28/23 Tonya Dye NP Referring PhysicianNurse Practitioner03/09/23Team MemberRelationshipSpecialty Start DateEnd Date Mumtaz Jensen MD [address] [place] [address] PCP - [facility]11/28/23 Tonya Dye NP Referring PhysicianNurse Practitioner03/09/23Team MemberRelationshipSpecialty Start DateEnd Date Mumtaz Jensen MD [address] [place] [address] PCP - [facility]11/28/23 Tonya Dye NP Referring PhysicianNurse Practitioner03/09/23Team MemberRelationshipSpecialty Start DateEnd Date Mumtaz Jensen MD [address] [place] [address] PCP - [facility] Medicine11/28/23 Tonya Dye NP Referring PhysicianNurse Practitioner03/09/23Te MemberRelationshipSpecialty Start DateEnd Date Mumtaz Jensen MD [address] [place] [address] PCP - [facility]11/28/23 Tonya Dye NP Referring PhysicianNurse Practitioner03/09/23Te MemberRelationshipSpecialty Start DateEnd Date Mumtaz Jensen MD [address] [place] [address] PCP - [facility]11/28/23 Tonya Dye NP Referring PhysicianNurse Practitioner03/09/23Te MemberRelationshipSpecialty Start DateEnd Date Mumtaz Jensen MD [address] [place] [address] PCP - [facility]11/28/23 Tonya Dye NP Referring PhysicianNurse Practitioner03/09/23Te MemberRelationshipSpecialty Start DateEnd Date Naderer, Mumtaz, MD [address] [place] [address] [facility]/28/23 Tonya Dye NP Referring PhysicianNurse Practitioner03/09/23Team MemberRelationshipSpecialty Start DateEnd Date Mumtaz Jensen MD [address] [place] [address] PCP - [facility] Medicine11/28/23 Tonya Dye NP Referring PhysicianNurse Practitioner03/09/23Team MemberRelationshipSpecialty Start DateEnd Date Tonya Dye, FINGERPRINT EXPERT-COLLECTION SUPPORT SPECIALIST [address] [place] [address] PCP - GeneralNurse Foqcpfdvulba10/23/21Team MemberRelationshipSpecialtyStart DateEnd Date Tonya Dye, FINGERPRINT EXPERT-COLLECTION SUPPORT SPECIALIST [address] [place] [address] PCP - GeneralNurse Oediveacgyau79/23/21Team MemberRelationshipSpecialtyStart DateEnd Date Tonya Dye, FINGERPRINT EXPERT-COLLECTION SUPPORT SPECIALIST [address] [place] [address] PCP - GeneralNurse Qnflmodouxis79/23/21Team MemberRelationshipSpecialtyStart DateEnd Date Tonya Dye, [facility] [address] [place] [address] PCP - GeneralNurse Afsmkxbeyrym75/23/21Team MemberRelationshipSpecialtyStart DateEnd Date Tonya Dye, [facility] [address] [place] [address] PCP - GeneralNurse Vsjywetceyfn13/23/21Team MemberRelationshipSpecialtyStart DateEnd Date Tonya Dye [facility] [address] [place] [address] PCP - GeneralNurse Rhjgwypdtofe19/23/21Team MemberRelationshipSpecialtyStart DateEnd Date Tonya Dye, [facility] [address] [place] [address] PCP - GeneralNurse Ahpfrqshoboj95/23/21Team MemberRelationshipSpecialtyStart DateEnd Date Tonya Dye [facility] PCP - GeneralNurse Wnnjtoltgyyj50/23/21Team MemberRelationshipSpecialtyStart DateEnd Date Tonya Dye [facility] PCP - GeneralNurse Lofluggsiptf57/23/21Team MemberRelationshipSpecialtyStart DateEnd Date Tonya Dye [facility] PCP - GeneralNurse Vscwjxefaivi25/23/21Team MemberRelationshipSpecialtyStart DateEnd Date Mumtaz Jensen MD [address] [place] [address] PCP - GeneralFamily Medicine11/28/23 Tonya Dye NP [address] [place] [address] PCP - [facility]11/22/24 Tonya Dye NP Referring PhysicianNurse Practitioner03/09/23Team MemberRelationshipSpecialty Start DateEnd Date Mumtaz Jensen MD [address] [place] [address] PCP - GeneralFamily Medicine11/28/23 Tonya Dye NP [address] [place] [address] PCP - [facility]11/22/24 Tonya Dye NP Referring PhysicianNurse Practitioner03/09/23Team MemberRelationshipSpecialty Start DateEnd Date Tonya Dye, FINGERPRINT EXPERT-COLLECTION SUPPORT SPECIALIST PCP - GeneralNurse Sobqjtojvvng96/23/21Team MemberRelationshipSpecialtyStart DateEnd Date Mumtaz Jensen MD [address] [place] [address] [facility] Tonya Dye NP [address] [place] [address] PCP - [facility] Reach11/22/24 Tonya Dye NP Referring PhysicianNurse Practitioner03/09/23Team MemberRelationshipSpecialty Start DateEnd Date Mumtaz Jensen MD [address] [place] [address] PCP - [facility]11/28/23 Tonya Dye NP [address] [place] [address] PCP - [facility]11/22/24 Tonya Dye NP Referring PhysicianNurse Practitioner03/09/23Team MemberRelationshipSpecialty Start DateEnd Date Mumtaz Jensen MD [address] [place] [address] PCP - [facility]11/28/23 Tonya Dye NP [address] [place] [address] PCP - [facility]11/22/24 Tonya Dye NP Referring PhysicianNurse Practitioner03/09/23Team MemberRelationshipSpecialty Start DateEnd Date Mumtaz Jensen MD [address] [place] [address] [facility] Tonya Dye NP [address] [place] [address] PCP - [facility]11/22/24 Tonya Dye NP Referring PhysicianNurse Practitioner03/09/23Team MemberRelationshipSpecialty Start DateEnd Date Mumtaz Jensen MD [address] [place] [address] PCP - [facility] Medicine11/28/23 Tonya Dye NP [address] [place] [address] PCP - [facility]11/22/24 Tonya Dye NP Referring PhysicianNurse Practitioner03/09/23Team MemberRelationshipSpecialty Start DateEnd Date Mumtaz Jensen MD [address] [place] [address] [facility]/23 Tonya Dye NP [address] [place] [address] PCP - [facility]11/22/24 Tonya Dye NP Referring PhysicianNurse Practitioner03/09/23Team MemberRelationshipSpecialty Start DateEnd Date Mumtaz Jensen MD [address] [place] [address] PCP - GeneralFamily Medicine11/28/23 Tonya Dye NP [address] [place] [address] PCP - [facility]11/22/24 Tonya Dye NP Referring PhysicianNurse Practitioner03/09/23Te MemberRelationshipSpecialty Start DateEnd Date Mumtaz Jensen MD [address] [place] [address] [facility]/23 Tonya Dye NP [address] [place] [address] PCP - [facility]11/22/24 Tonya Dye NP Referring PhysicianNurse Practitioner03/09/23Team MemberRelationshipSpecialty Start DateEnd Date Mumtaz Jensen MD [address] [place] [address] PCP - GeneralFamily Medicine11/28/23 Tonya Dye NP [address] [place] [address] PCP - [facility]11/22/24 Tonya Dye NP Referring PhysicianNurse Practitioner03/09/23Team MemberRelationshipSpecialty Start DateEnd Date Tonya Dye APRN-[facility] PCP - GeneralNurse Ydbxqlkvtekt80/23/21Team MemberRelationshipSpecialtyStart DateEnd Date [facility] PCP - GeneralNurse Ddseezyizowm57/23/21Team MemberRelationshipSpecialtyStart DateEnd Date [facility] PCP - GeneralNurse Bdrunkoywciq25/23/21Team MemberRelationshipSpecialtyStart DateEnd Date [facility] Dye [facility] PCP - GeneralNurse Ekvrfsqrjevx44/23/21Team MemberRelationshipSpecialtyStart DateEnd Date Mumtaz Jensen MD [address] [place] [address] PCP - GeneralFamily Medicine11/28/23 Tonya Dye NP [address] [place] [address] PCP - [facility]11/22/24 Tonya Dye NP Referring PhysicianNurse Practitioner03/09/23Team MemberRelationshipSpecialty Start DateEnd Date Mumtaz Jensen MD [address] [place] [address] [facility]/28/23 Tonya Dye NP [address] [place] [address] PCP - [facility] Re[facility]11/22/24 Tonya Dye NP Referring PhysicianNurse Practitioner03/09/23Team MemberRelationshipSpecialty Start DateEnd Date Tonya Dye APRN-[facility] PCP - GeneralNurse Wybqjpjmxdak38/23/21Team MemberRelationshipSpecialtyStart DateEnd Date Tonya Dye APRN-[facility] PCP - GeneralNurse Hgvlyzappsaf02/23/21Team MemberRelationshipSpecialtyStart DateEnd Date Tonya Dye APRN-[facility] PCP - GeneralNurse Sjlfszdpdmyg94/23/21Team MemberRelationshipSpecialtyStart DateEnd Date Tnoya Dye APRN-[facility] PCP - GeneralNurse Bgkmfpxeewcx65/23/21Team MemberRelationshipSpecialtyStart DateEnd Date Tonya Dye [facility] PCP - GeneralNurse Iecmcfkvnhof32/23/21Team MemberRelationshipSpecialtyStart DateEnd Date Tonya Dye [facility] PCP - GeneralNurse Akxgiywpfcgz49/23/21Team MemberRelationshipSpecialtyStart DateEnd Date Tonya Dye [facility] PCP - GeneralNurse Unmkodikiuyc82/23/21Team MemberRelationshipSpecialtyStart DateEnd Date Tonya Dye [facility] PCP - GeneralNurse Nyzyqxndazbe91/23/21 MemberRelationshipSpecialtyStart DateEnd Date Tonya Dye, [facility] PCP - GeneralNurse Phvsirhpksrv91/23/21Team MemberRelationshipSpecialtyStart DateEnd Date Tonya Dye, [facility] PCP - GeneralNurse Wecxjiskkzeq33/23/21Team MemberRelationshipSpecialtyStart DateEnd Date Tonya Dye, [facility] PCP - GeneralNurse Ogmltezbkwed81/23/21Team MemberRelationshipSpecialtyStart DateEnd Date Tonya Dye FINGERPRINT EXPERTBAYSTATE MARY L[facility] Wuoquwwbfmib52/23/21Team MemberRelationshipSpecialtyStart DateEnd Date Tonya Dye [facility] Rviggnrcatwj70/23/21 Team Status: Active Member Role Status Dates Tonya Dye INTERFACE DEVELOPER-C Primary Care Provider Active Team Status: Inactive Member Role Status Dates Tonya Dye INTERFACE DEVELOPER-C Primary Care Provider Active Start: July 14, 2025 End: July 14, 2025Tonya Dye INTERFACE DEVELOPER-CAttending ProviderActiveStart: July 14, 2025 End: July 14, 2025Team MemberRelationshipSpecialtyStart DateEnd Date Tonya Dye [facility] PCP - [facility] Ztlzpbeebpzy31/23/21Team MemberRelationshipSpecialtyStart DateEnd Date Tonya Dye [facility] PCP - [facility] Chltwpzmeqol82/23/21 Team Status: Active Member Role/Relationship Status Dates Tonya Dye INTERFACE DEVELOPER-C Primary Care Provider Active Team Status: Inactive Member Role/Relationship Status Dates Tonya Dye INTERFACE DEVELOPER-C Primary Care Provider Active Start: July 14, 2025 End: July 14, 2025Tonya Dye INTERFACE DEVELOPER-CAttending ProviderActiveStart: July 14, 2025 End: July 14, 2025 Team Status: Inactive Member Role/Relationship Status Dates Tonya Dye INTERFACE DEVELOPER-C Primary Care Provider Active Start: August 13, 2025 End: August 13, 2025Tonya Dye NP-Stephanie ProviderActiveStart: August 13, 2025 End: August 13, 2025Team MemberRelationshipSpecialtyStart DateEnd Date Mumtaz Jensen MD PCP - [facility] Medicine11/28/23 Tonya Dye NP [address] [place] [address] PCP - [facility]11/22/24 Tonya Dye NP Referring PhysicianNurse Practitioner03/09/23Te MemberRelationshipSpecialty Start DateEnd Date Mumtaz Jensen MD PCP - [facility] Medicine11/28/23 Tonya Dye NP [address] [place] [address] PCP - [facility] Reach11/22/24 Tonya Dye NP Referring PhysicianNurse Practitioner03/09/23Te MemberRelationshipSpecialty Start DateEnd Date Tonya Dye, FINGERPRINT EXPERT-COLLECTION SUPPORT SPECIALIST PCP - GeneralNurse Qvveoimznqex71/23/21 Goals (unrecognized section and content) Goals may [...] BE BASED ON THE PRIMARY CLINICAL RECORDS. [facility]. provides no warranty or guarantee of the accuracy or completeness of information in this document.
[2025-08-19 12:48] LABS: Hematocrit 49.3 % (42.0-54.0); Hemoglobin 15.7 g/dL (14.0-18.0); Immature Granulocytes Abs Auto 0.02 10^3/uL (0.00-0.03); Immature Granulocytes Pct Auto 0.3 % (0.0-0.5); Lymphocytes Absolute Auto 1.8 10^3/uL (1.2-3.8); Mean Corpuscular HGB Conc 31.8 g/dL (29.9-35.2); Mean Corpuscular Hemoglobin 28.4 pg (25.9-34.0); Mean Corpuscular Volume 89.2 fL (80.0-94.0); Platelet Count 176 10^3/uL (150-450); Red Blood Count 5.53 10^6/uL (4.70-6.10); White Blood Count 6.4 10^3/uL (4.0-11.0)
[2025-08-19 13:04] LABS: Anion Gap 12.3; Blood Urea Nitrogen 15.0 mg/dL (7.0-18.0); Calcium 8.9 mg/dL (8.5-10.1); Carbon Dioxide 25.4 mmol/L (21.0-32.0); Chloride 104 mmol/L (98-107); Estimated GFR (African America >60 (>=60 mL/min/1.73m^2); Estimated GFR (Non-African Ame >60 (>=60 mL/min/1.73m^2); Glucose 113 mg/dL (74-106); Potassium 4.7 mmol/L (3.5-5.1); Sodium 137 mmol/L (136-145)
[2025-08-19 14:10] LABS: Iron 57.0 ug/dL (65.0-175.0)
[2025-08-19 14:28] LABS: Ferritin 40.0 ng/mL (26.0-388.0)
[2025-08-20 04:09] LABS: Vitamin B12 428 pg/mL (232-1245)
== END 2025-08-19 12:16 | disposition home or self-care (01) ==
LOC: LAB 12:17
PROVIDERS: PCP Nurse Practitioner; Visit Provider Nurse Practitioner
DX: D50.9 Iron deficiency anemia, unspecified (principal); E11.319 Type 2 diabetes mellitus with unspecified diabetic retinopathy without macular edema; E53.8 Deficiency of other specified B group vitamins
CPT/HCPCS: 36415; 80048; 82607; 82728; 83540; 85025

== ENCOUNTER 2025-08-19 12:39 | Outpatient (OUT) | payer MEDICARE, OTHER, SELFPAY ==
--- OUTSIDE RECORDS SUMMARY | 2025-08-19 12:43 | XMS_ITS | Encounter Summary ---
Author Organization [facility] Address [address] [place] [address] Care Team Providers Care Roller Mill Operator Name Role Phone Tonya Dye PIPE INSPECTOR Unavailable [phone] Mumtaz Jensen MD Primary Care Provider [phone] Tonya Dye PIPE INSPECTOR Unavailable [phone] Encounter Details DateTypeDepartmentCare Team (Latest Contact Info)Godngibefqv79/22/2024Clinisync Result Encounter [facility] External Department Unsolicited Lynn Aceves MD [address] [facility] [address] [place] [address] Social History Tobacco UseTypesPacks/DayYears UsedDateSmoking Tobacco: Every DayCigarettes Smokeless Tobacco: NeverAlcohol UseStandard Drinks/WeekCommentsNever0 (1 standard drink = 0.6 oz pure alcohol)PHQ-2AnswerDate RecordedPatient Health Questionnaire-2 Zknnz457Sex and Gender InformationValueDate RecordedSex Assigned at BirthNot on fileLegal HcdNkls7012/28/2022 10:09 PM EDTGender Identity Not on fileSexual OrientationNot on filedocumented as of this encounter Functional Status * Over the past 2 weeks, how often have you been bothered by any of the following problems?QuestionAnswerDate of AssessmentAuthorLittle interest or pleasure in doing thingsNot at all03/27/2025 2:22 PM Alka Bruce MA Feeling down, depressed, or hopelessNot at all03/27/2025 2:22 PM Alka Bruce MAPatient Health Questionnaire-2 Ktkeu488 2:22 PM LEONORT Alka Ribera MA * [...] 2:22 PM Alka Bruce MAPatient Health Questionnaire-9 Unvna688 2:22 PM Alka Bruce MA * Geriatric Depression Scale (Short Version)QuestionAnswerDate of Assessment AuthorAre you basically satisfied with your life?Yes02/27/2024 11:41 AM Alka Kramer MAHave you dropped many of your activities and interests? No02/27/2024 11:41 AM Alka Bruce MADo you feel that your life is empty?No02/27/2024 11:41 AM Alka Bruce MADo you often get bored?No 02/27/2024 11:41 AM Alak Bruce MAAre you in good spirits most [...] EDT Narrative 02/05/2024 4:51 PM EDT [facility] ?[address] ? [place], [place] [address] ? Magnetic Resonance Report ? Signed ? Patient: MYNOR,TERRI J ?MR#: [id number] ?? : 1950 ?Acct:[id number] ?? Age/Sex: 73 / M ?ADM Date: 02/05/24 ?? Loc: LAB ? Attending Dr: Lynn Aceves M.D. ? Ordering Physician: Lynn Aceves M.D. ?? Date of Service: 02/05/24 ?? Procedure(s): MR head/brain wo/w con ?? Accession Number(s): [id number] ? cc: Tonya Dye NP; Lynn Aceves M.D. ? [facility] ? [address] ? [place] [address] ? Patient Name: ?? TERRI LOWE ? MRN: [facility]:[id number] ? date: 1950 ?Sex: M ?? Assigned Patient Location: LAB ?? Current Patient Location: LAB ?? Accession/Order Number: [id number] ?? Exam Date: 02/05/2024 ??15:00 ?Report Date: [...] 1651 ? DD/ 1648 ? TD/TT: ? Associate Director Financial Aid: Procedure Note Radiology, Radiologist, - 02/05/2024 [place] [address] Magnetic Resonance Report Signed Patient: TERRI LOWE R#: [id number] : 1950cct:[id number] Age/Sex: 73 / MADM Date: 02/05/24 Loc: LAB Attending Dr: Lynn Aceves M.D. Ordering Physician: Lynn Aceves M.D. Date of Service: 02/05/24 Procedure(s): MR head/brain wo/w con Accession Number(s): [id number] cc: Tonya Dye PIPE INSPECTOR; Lynn Aceves M.D. The [place] [id number] Patient Name: TERRI LOWE MRN: [id number] date: 1950 Sex: M Assigned Patient Location: LAB Current Patient Location: LAB Accession/Order Number: [id number] Exam Date: 02/05/2024 15:00 Report Date: 02/05/2024 [...] Anthony M.D. Signed By:02/05/241650 DD/ 47 TD/TT: Associate Director Financial Aid: Authorizing ProviderResult TypeResult StatusHilary Tucker Acevse MDIMG XR PROCEDURES Final Result documented in this encounter Visit Diagnoses Not on filedocumented in this encounter Care Teams Team MemberRelationshipSpecialtyStart DateEnd Date Mumtaz Jensen MD PCP - GeneralFamily Medicine11/28/23 Tonya Dye NP [address] [place] [address] PCP - [facility] Re[facility]11/22/24 Tonya Dye NP Referring PhysicianNurse Practitioner03/09/23documented as of this encounter
--- OUTSIDE RECORDS SUMMARY | 2025-08-19 12:43 | XMS_ITS | Clinical Summary ---
Author Organization [facility] Address [address] [place] [address] Care Team Providers Care Manager Landscape Name Role Phone Unavailable Primary Care Provider Unavailabl e Social History Tobacco UseTypesPacks/DayYears UsedDateSmoking Tobacco: Never AssessedUT Safety & EnvironmentAnswerDate RecordedFear of Current or Ex-PartnerNot on file 12/07/2023Emotionally AbusedNot on file12/07/2023hysically AbusedNot on file 12/07/2023Sexually AbusedNot on file4Physically or Sexually AbusedNot on file12/07/2023Sex and Gender InformationValueDate RecordedSex Assigned at BirthNot on fileLegal AbsPiix3104/13/2022 11:05 PM EDTGender IdentityNot on file Sexual OrientationNot on file Plan of Treatment Health MaintenanceDue DateLast DoneCommentsCT Uxcwpxekvznf1950Colonoscopy 1950olorectal Cancer Xvvwxxwcy1950FIT-DNA1950FIT1950 FOBT1950Medicare Annual Wellness (AWV)1950 3522Nogslmljojklt1950 Depression Irhkeoirc13/10/1963Adult Mrdcflo0703/25/1973Pneumococcal Vaccine: 50+ Years (1 of 1 - PCV)2001Zoster Vaccines (1 of 2)2001Fall Risk Mnwjdigpd99/10/2016COVID-19 Vaccine (1 - 2024- season)2025Influenza Vaccine (#1)2025HIB [...] Thacker TypeRelation to PatientDate of BirthPhone Billing AddressPersonal/OnkflpLcqp1950 [facility] [address] [place] [id number]
--- OUTSIDE RECORDS SUMMARY | 2025-08-19 12:43 | XMS_ITS | Encounter Summary ---
Author Organization [facility] Address [address] [place] [address] Care Team Providers Care Manager Decision Support Name Role Phone Tonya Dye SHIPPING PROCESSOR Unavailable [phone] Mumtaz Jensen MD Primary Care Provider [phone] Tonya Dye SHIPPING PROCESSOR Unavailable [phone] Encounter Details DateTypeDepartmentCare Team (Latest Contact Info)Ekzkeothhho11/09/2024Clinisync Result Encounter [facility] External Department Unsolicited Provider, Generic External Data Social History Tobacco UseTypesPacks/DayYears UsedDateSmoking Tobacco: Every DayCigarettes Smokeless Tobacco: NeverAlcohol UseStandard Drinks/WeekCommentsNever0 (1 standard drink = 0.6 oz pure alcohol)PHQ-2AnswerDate RecordedPatient Health Questionnaire-2 Gffqv639Sex and Gender InformationValueDate RecordedSex Assigned at BirthNot on fileLegal RrvGgoc9912/28/2022 10:09 PM EDTGender Identity Not on fileSexual OrientationNot on filedocumented as of this encounter Functional Status * Over the past 2 weeks, how often have you been bothered by any of the following problems?QuestionAnswerDate of AssessmentAuthorLittle interest or pleasure in doing thingsNot at all03/27/2025 2:22 PM Alka Bruce MA Feeling down, depressed, or hopelessNot at all03/27/2025 2:22 PM Alka Bruce MAPatient Health Questionnaire-2 Lijhg309 2:22 PM Alka Kramer MA * QuestionAnswerDate [...] 2:22 PM Alka Bruce MAPatient Health Questionnaire-9 Ueuql874 2:22 PM Alka Bruce MA * Geriatric [...] this encounter Procedures Procedure NamePriorityDate/TimeAssociated DiagnosisCommentsSEGMENTAL BLOOD YAFCADEC66/09/2024 2:35 PM EDT documented in this encounter Results * SEGMENTAL BLOOD PRESSURE (01/23/2024 2:35 PM EDT)Anatomical RegionLaterality ModalityRadiographic ImagingSpecimen (Source)Anatomical Location / Laterality Collection Method / VolumeCollection TimeReceived Time01/23/2024 2:35 PM EDT Narrative 01/23/2024 11:21 PM EDT [facility] ?[address] ? [place] [address] ? Cardiology Report ? Signed ? Patient: MYNOR,TERRI J ?MR#: [id number] ?? : 1950 ?Acct:[id number] ?? Age/Sex: 73 / M ?ADM Date: 01/23/24 ?? Loc: CARD ? Attending Dr: OMID RICKS ? Ordering Physician: OMID RICKS ?? Date of Service: 01/23/24 ?? Procedure(s): CA segmental UE or LE AIMEE ?? Accession Number(s): [id number] ? cc: OMID RICKS ; Tonya Dye SHIPPING PROCESSOR ?[facility] ? Test Date: ?2024-01-23 ?? Pat Name: ? TERRI MYNOR ? Department: ? Room: ? - ?? Gender: ? Male ? Credit Administration Specialist: ? : ?1950 ? Requested By: OMID RICKS ?? Order Number: [id number] ?Reading MD: ?? HARRISON ??BALL ? Interpretive [...] 2321 ? DD/ 1435 ? TD/TT: ? Supervisor Elementary Education: Procedure Note Radiology, Radiologist, MD - 01/23/2024 [place] [address] Cardiology Report Signed Patient: TERRI LOWE JMR#: [id number] : 1950cct:[id number] Age/Sex: 73 / MADM Date: 01/23/24 Loc: CARD Attending Dr: OMID RICKS Ordering Physician: OMID RICKS Date of Service: 01/23/24 Procedure(s): CA segmental UE or LE AIMEE Accession Number(s): [id number] cc: OMID RICKS ; Tonya Dye NP [facility] Test Date: 2024-01-23 Pat Name: TERRI LOWE Department: Room: - Gender: Male Credit Administration Specialist: : 1950 Requested By: OMID RICKS Order Number: [id number] Reading MD: HARRISON GODDARD Interpretive Statements Monophasic [...] Signed By:01/23/242320 04/09/24 232 DD/ 1435 TD/TT: Supervisor Elementary Education: Authorizing ProviderResult TypeResult StatusGeneric External Data ProviderIMG XR PROCEDURESFinal Result documented in this encounter Visit Diagnoses Not on filedocumented in this encounter Care Teams Team MemberRelationshipSpecialtyStart DateEnd Date Mumtaz Jensen MD [facility] - [facility]11/28/23 Tonya Dye NP [address] [place] [address] PCP - ACO [facility]11/22/24 Tonya Dye NP Referring PhysicianNurse Practitioner03/09/23documented as of this encounter
--- OUTSIDE RECORDS SUMMARY | 2025-08-19 12:43 | XMS_ITS | Encounter Summary ---
Author Organization [facility] Address [address] [place] [address] Care Team Providers Care Welding Machine Operator Helper Arc Name Role Phone Tonya Dye BILL ADJUSTER Unavailable [phone] Mumtaz Jensen MD Primary Care Provider Tonya Dye BILL ADJUSTER Unavailable [phone] Encounter Details DateTypeDepartmentCare Team (Latest Contact Info)Bionfgnoztv65/20/2024Clinisync Result Encounter [facility] External Department Unsolicited Tonya Dye NP [address] [place] [address] Social History Tobacco UseTypesPacks/DayYears UsedDateSmoking Tobacco: Every DayCigarettes Smokeless Tobacco: NeverAlcohol UseStandard Drinks/WeekCommentsNever0 (1 standard drink = 0.6 oz pure alcohol)PHQ-2AnswerDate RecordedPatient Health Questionnaire-2 Cukfn747Sex and Gender InformationValueDate RecordedSex Assigned at BirthNot on fileLegal UgqOinm4112/28/2022 10:09 PM EDTGender Identity Not on fileSexual OrientationNot on filedocumented as of this encounter Functional Status * Over the past 2 weeks, how often have you been bothered by any of the following problems?QuestionAnswerDate of AssessmentAuthorLittle interest or pleasure in doing thingsNot at all03/27/2025 2:22 PM Alka Bruce MA Feeling down, depressed, or hopelessNot at all03/27/2025 2:22 PM Alka Bruce MAPatient Health Questionnaire-2 Rhxns353 2:22 PM Alka Kramer MA * QuestionAnswerDate [...] 2:22 PM Alka Bruce MAPatient Health Questionnaire-9 Cbvum316 2:22 PM Alka Bruce MA * Geriatric [...] CON 12/05/2023 1:25 PM EST MLR HEMOGLOBIN W0DGeauyxo55/ 1:05 PM EST documented in this encounter Results * CT SINUS WO CON (12/05/2023 1:25 PM EST)Anatomical RegionLateralityModality OtherSpecimen (Source)Anatomical Location / LateralityCollection Method / VolumeCollection TimeReceived Time12/05/2023 1:25 PM EST Narrative 12/05/2023 1:28 PM EST [facility] ?[address] ? [place] [address] ? CT Scan Report ? Signed ? Patient: MYNOR,TERRI J ?MR#: [id number] ?? : 1950 ?Acct:[id number] ?? Age/Sex: 73 / M ?ADM Date: 12/05/23 ?? Loc: CT ? Attending Dr: Tonya Dye NP ? Ordering Physician: Tonya Dye NP ?? Date of Service: 12/05/23 ?? Procedure(s): CT sinus wo con ?? Accession Number(s): [id number] ? cc: Tonya Dye NP ? [facility] ? [address] ? [place] [address] ? Patient Name: ?? TERRI LOWE ? MRN: [facility]:[id number] ? date: 1950 ?Sex: M ?? Assigned Patient Location: CT ?? Current Patient Location: CT ?? Accession/Order Number: [id number] ?? Exam Date: 12/05/2023 ??12:53 ?Report Date: [...] 1328 ? DD/ 1325 ? TD/TT: ? Protein Purification Scientist: Procedure Note Radiology, Radiologist, MD - 12/05/[address] [address] [address] Scan Report Signed Patient: TERRI LOWE R#: [id number] : 1950cct:[id number] Age/Sex: 73 / MADM Date: 12/05/23 Loc: CT Attending Dr: Tonya Dye BILL ADJUSTER Ordering Physician: Tonya Dye NP Date of Service: 12/05/23 Procedure(s): CT sinus wo con Accession Number(s): [id number] cc: Tonya Dye NP The [address] [address] Patient Name: TERRI LOWE MRN: [facility]:[id number] date: 1950 Sex: M Assigned Patient Location: CT Current Patient Location: CT Accession/Order Number: [id number] Exam Date: 12/05/2023 12:53 Report Date: 12/05/2023 [...] M.D. Signed By:12/05/23 1328 DD/ 1325 TD/TT: Protein Purification Scientist: Authorizing ProviderResult TypeResult StatusLisa Dye NPCLINISYNC IMAGING Final Result * (ABNORMAL) MLR HEMOGLOBIN A1C (12/05/2023 1:05 PM EST)ComponentValueRef Range Test MethodAnalysis TimePerformed AtPathologist SignatureGLYCOHEMOGLOBIN A1C 8.3(H)4.5 - 6.2 %TBHComment: ADA RECOMMENDED LIMIT 4.0 - 6.0 ADA THERAPEUTIC TARGET < 7.0 ACTION SUGGESTED > 7.0 ESTIMATED AVERAGE GWERUTL054cu/dLTBHSpecimen (Source)Anatomical Location / LateralityCollection Method / VolumeCollection [...] GeneralFamily Medicine11/28/23 Tonya Dye NP [address] [place] [address] PCP - [facility]11/22/24 Tonya Dye NP Referring PhysicianNurse Practitioner03/09/23documented as of this encounter
--- OUTSIDE RECORDS SUMMARY | 2025-08-19 12:43 | XMS_ITS | Encounter Summary ---
Author Organization [facility] Address [address] [place] [address] Care Team Providers Care Escrow Agent Name Role Phone Tonya Dye DISABILITIES CAREGIVER Unavailable [phone] Mumtaz Jensen MD Primary Care Provider Tonya Dye DISABILITIES CAREGIVER Unavailable [phone] Encounter Details DateTypeDepartmentCare Team (Latest Contact Info)Cfhngsbqyqn38/07/2024Clinisync Result Encounter [facility] Unsolicited Tonya Dye NP [address] [place] [id number] Social History Tobacco UseTypesPacks/DayYears UsedDateSmoking Tobacco: Every DayCigarettes Smokeless Tobacco: NeverAlcohol UseStandard Drinks/WeekCommentsNever0 (1 standard drink = 0.6 oz pure alcohol)PHQ-2AnswerDate RecordedPatient Health Questionnaire-2 Rpluw396Sex and Gender InformationValueDate RecordedSex Assigned at BirthNot on fileLegal MqeSbff1512/28/2022 10:09 PM EDTGender Identity Not on fileSexual OrientationNot on filedocumented as of this encounter Functional Status * Over the past 2 weeks, how often have you been bothered by any of the following problems?QuestionAnswerDate of AssessmentAuthorLittle interest or pleasure in doing thingsNot at all03/27/2025 2:22 PM Alka Bruce MA Feeling down, depressed, or hopelessNot at all03/27/2025 2:22 PM Alka Bruce MAPatient Health Questionnaire-2 Jczix212 2:22 PM EDT Alka Ribera MA * [...] 2:22 PM Alka Bruce MAPatient Health Questionnaire-9 Fxqgc075 2:22 PM Alka Bruce MA documented as of this encounter Plan of Treatment Not on file documented as of this encounter Procedures Procedure NamePriorityDate/TimeAssociated DiagnosisCommentsVASC US CAROTID ARTERY DUPLEX FHSJPWDQE46/07/2024 5:23 PM EST documented in this encounter Results * Vascular US carotid artery duplex bilateral (08/22/2024 5:23 PM EST)Anatomical RegionLateralityModalityNeckUltrasoundSpecimen (Source)Anatomical Location / LateralityCollection Method / VolumeCollection TimeReceived Time08/22/2024 5:23 PM EST Narrative 08/22/2024 5:26 PM EST [facility] ?[address] ? [place] [address] ? Ultrasound Report ? Signed ? Patient: MYNOR,TERRI J ?MR#: [id number] ?? : 1950 ?Acct:[id number] ?? Age/Sex: 74 / M ?ADM Date: 08/22/24 ?? Loc: US ? Attending Dr: Tonya Dye NP ? Ordering Physician: Tonya Dye NP ?? Date of Service: 08/22/24 ?? Procedure(s): US carotid duplex BI ?? Accession Number(s): [id number] ? cc: Tonya Dye NP ? [facility] ? [address] ? [place] [address] ? Patient Name: ?? TERRI LOWE ? MRN: [facility]:[id number] ? date: 1950 ?Sex: M ?? Assigned Patient Location: ?? Current Patient Location: [place] ?? Accession/Order Number: [id number] ?? Exam Date: 08/22/2024 ??14:05 ?Report Date: [...] protocol. ICA-CCA ratios are ?? calculated with car sales representative peak-systolic velocities and recorded. ?? [...] ?08/22/246 ? DD/ 1723 ? TD/TT: ? Risk Control Officer: Procedure Note Radiology, Radiologist, MD - 08/22/2024 The [place] [id number] Ultrasound Report Signed Patient: TERRI LOWE JMR#: [id number] : 1950cct:[id number] Age/Sex: 74 / MADM Date: 08/22/24 Loc: US Attending Dr: Tonya Dye NP Ordering Physician: Tonya Dye NP Date of Service: 08/22/24 Procedure(s): US carotid duplex BI Accession Number(s): [id number] cc: Tonya Dye NP [address] [address] Patient Name: TERRI LOWE MRN: [id number] date: 1950 Sex: M Assigned Patient Location: [place] Current Patient Location: [place] Accession/Order Number: [id number] Exam Date: 08/22/2024 14:05 Report Date: 08/22/2024 [...] standard protocol. ICA-CCA ratios are calculated with car sales representative peak-systolic velocities and recorded. Vertebral [...] Garcia M.D. Signed By:08/22/241725 DD/ 22 TD/TT: Risk Control Officer: Authorizing ProviderResult TypeResult StatusLisa Hardik NPIMG US PROCEDURES Final Result documented in this encounter Visit Diagnoses Not on filedocumented in this encounter Additional Health Concerns AssessmentNoted TimePHQ-9 Depression Total Score: 305 11:39 AM EDT documented as of this encounter Care Teams Team MemberRelationshipSpecialtyStart DateEnd Date Mumtaz Jensen MD PCP - GeneralFamily Medicine11/28/23 Tonya Dye NP [address] [place] [address] PCP - ACO [place]11/22/24 Tonya Dye NP Referring PhysicianNurse Practitioner03/09/23documented as of this encounter
--- OUTSIDE RECORDS SUMMARY | 2025-08-19 12:43 | XMS_ITS | Clinical Summary ---
Author Organization [facility] Address [address] [place] [address] Care Team Providers Care Family Helper Name Role Phone Tonya Dye HISTORY TUTOR Unavailable [phone] Mumtaz Jensen MD Primary Care Provider Tonya Dye HISTORY TUTOR Unavailable [phone] Allergies Active AllergyReactionsCriticalityNoted CltiCbyxkpjjNklznpcd69/05/2023 LxbxfcxjqxkadVkstrdo29/25/7066HacarxxksseRrwcpnz98/25/2023LiraglutideUnknown 3Penicillin OLogapqi79/25/2023 Medications MedicationSigDispense QuantityRefillsLast FilledStart DateEnd DateStatus Ventolin HFA 108 (90 Base) MCG/ACT inhaler Inhale 2 puffs every 4 (four) hours if needed for wheezing or shortness of noctzq2403/12/2024ctive tamsulosin (Flomax) 0.4 MG 24 hr capsule Take 0.8 mg by mouth at hdkzxof05/23/2024Active amLODIPine (Norvasc) 5 MG tablet Indications:Primary hypertensionTake [...] each by Other route Daily 300 strip /046094/Expired Active Problems ProblemNoted DateDiagnosed DateAcute gastric ulcer without hemorrhage or peswbygqhme36/02/2025bnormal computed tomography of abdomen and pelvis 04/16/2025bdominal pain, kuxsumgvpvn52/24/2025 Assessment & Plan (04/08/2025 1:51 PM EDT): Check labs Suspicion divertic, but possible gallbladder RUQ pain04/08/2025Primary gzihzufy60/12/2025 Assessment & Plan (03/27/2025 2:57 PM EDT): Awake off and on, cannot shut off mind Add trazodone See if helps Other acute /16/2025Mild nonproliferative diabetic retinopathy of both eyes without [...] test as well Hemorrhage due to aspirin ypipkll7108/20/2024 Assessment & Plan (08/20/2024 2:44 PM EST): Was in hospital with GI bleeding, so asa was discontinued Bilateral carotid denoss5708/20/2024 Assessment & Plan (08/20/2024 2:56 PM EST): Hx PAD, CAD , HTN and DM Check US Acute gastritis without ilhcgfxauo47/07/2024 Assessment & Plan (07/22/2024 3:03 PM EDT): Symptoms improved with use of PPI, as well as carafate Will have him restart the pantoprazole Fu in 4 weeks Type 2 diabetes mellitus with circulatory disorder, without long-term current use of uyhoeuz6806/04/2024 Assessment & Plan (03/27/2025 2:50 PM EDT): [...] Fu in 3 months Nonrheumatic aortic valve pnxqgbcu42/05/2024 Overview (03/20/2024): ECHO 03/10/24: EF 60-65%, diastolic dysfunction, AV: severe calcified , severe diminished mobility Assessment & Plan (04/04/2024 10:07 AM EDT): Scheduled for heart cath in April Elevated brain natriuretic peptide (BNP) level03/14/2024 Assessment & Plan (03/14/2024 11:56 AM EDT): Will obtain ECHO report from hospitalization Screening for prostate tlvxek0402/27/2024 Overview (04/02/2025): 0.47, 03/05/24 04/02/25 PSA 0.47 [...] conditions allow) Follow up yearly and prn Budhteqmrjsure44/14/2024 Assessment & Plan (04/08/2025 1:52 PM EDT): Check labs, if pain worsens go to Er Allergies to PCN and cipro Assessment & Plan (08/20/2024 2:47 PM EST): Currently no symptoms Assessment & Plan (02/27/2024 12:55 PM EDT): resolved Overweight (BMI 25.0-29.9)02/27/2024igarette smoker motivated to quit02/08/2024 Overview (02/27/2024): Counseled on smoking cessation in length. For at least 4 minutes Urine kytgvzrzw71/02/2024 Assessment & Plan (01/16/2024 10:27 AM EDT): Check UA and culture Ztvydtzy67/01/2024Neck pain11/29/2023Heart imrdlv4111/29/2023 Assessment & Plan (06/04/2024 2:10 PM EDT): Reveiwed NOHEMI Bilateral carpal tunnel mivgnhyj20/14/2024Frequent PVCs11/29/2023bnormal stress test11/29/2023inging in ears, right11/29/2023opliteal cyst, right11/29/2023 Olecranon bursitis of right elbow11/29/2023Olecranon bursitis of left elbow 11/29/2023Foraminal stenosis of cervical ymahwe3811/29/2023DD (degenerative disc disease), esbwmlem58/14/2024Type 2 diabetes mellitus with unspecified diabetic retinopathy without macular edema11/29/2023llergic lydijpfa92/14/2024geusia 11/29/2023Type 2 diabetes mellitus with diabetic eddbqlcycarqoc60/14/2024 Assessment & Plan (03/27/2025 6:55 AM EDT): Is currently taking gabapentin OARRS reviewed Recommend tight blood sugar control, proper fitting shoes, freq foot checks Assessment & Plan (11/20/2024 6:48 AM EST): Is currently taking gabapentin OARRS reviewed Recommend tight blood sugar control Assessment & Plan (11/20/2024 6:45 AM EST): >>ASSESSMENT AND PLAN FOR DIABETIC POLYNEUROPATHY ASSOCIATED WITH TYPE 2 DIABETES MELLITUS ([facility]) WRITTEN ON 01/16/2024 10:23 AM BY TONYA DYE NP OARRS reviewed Increase gabapentin dose 600mg Fu in 6 weeks Assessment & Plan (11/20/2024 6:45 AM EST): >>ASSESSMENT AND PLAN FOR DIABETIC POLYNEUROPATHY ASSOCIATED WITH TYPE 2 DIABETES MELLITUS ([facility]) WRITTEN ON 04/04/2024 10:06 AM BY TONYA DYE NP Continue current gabapentin dose Fu in 2 months Assessment & Plan (11/20/2024 6:45 AM EST): >>ASSESSMENT AND PLAN FOR DIABETIC POLYNEUROPATHY ASSOCIATED WITH TYPE 2 DIABETES MELLITUS ([facility]) WRITTEN ON 06/04/2024 2:10 PM BY TONYA DYE NP Cont w memo Assessment & Plan (11/20/2024 6:45 AM EST): >>ASSESSMENT AND PLAN FOR DIABETIC POLYNEUROPATHY ASSOCIATED WITH TYPE 2 DIABETES MELLITUS ([facility]) WRITTEN ON 08/20/2024 7:01 AM BY TONYA DYE NP Continue with gabapentin Tight glucose control BPH (benign prostatic hyperplasia)10/31/2023 Assessment & Plan (08/20/2024 2:47 PM EST): Improved with increase dose of flomax No other work up at this time Assessment & Plan (02/27/2024 12:54 PM EDT): Much better w increase in prostate meds Jvaupiknhcn05/16/2024Diabetic ucdxjypxvwa81/16/2024Diastolic dysfunction 10/31/2023 Assessment & Plan (03/27/2025 6:55 [...] EST): No changes needed in medication regimine Gagffbjjvuviqj66/16/2024 Assessment & Plan (03/27/2025 6:58 AM EDT): On statin therapy Recommend yearly lab checks and prn dose changes Assessment & Plan (11/20/2024 6:59 AM EST): On statin therapy Recommend yearly lab checks and prn dose changes Iron deficiency ifbsiu4910/31/2023 Assessment & Plan (11/20/2024 6:58 AM EST): Check labs Assessment & Plan (02/27/2024 12:54 PM EDT): Check labs Lumbar obavaysjfnuuq73/16/2024Mass of adrenal gland10/31/2023anic disorder 10/31/2023VCs (premature ventricular contractions)10/31/2023Seasonal allergies 10/31/2023Tobacco user10/31/2023 Assessment & Plan (03/27/2025 6:58 AM EDT): The patient has been advised of the risks of continued smoking: stroke, AR, all forms of cancer, lung disease, and [...] of the risks of continued smoking: stroke, AR, all forms of cancer, lung disease, and [...] of the risks of continued smoking: stroke, AR, all forms of cancer, lung disease, and [...] of the risks of continued smoking: stroke, AR, all forms of cancer, lung disease, and [...] of the risks of continued smoking: stroke, AR, all forms of cancer, lung disease, and . Options for quitting smoking include: cold turkey, hypnosis, acupuncture, nicotine replacement meds(gum, lozenges, and patches), Buproprion, and Varenicline. At this time pt is encouraged to evaluate their goals for wanting to quit smoking, and reach out toprovider when ready to start this process Vitamin B12 rmhdkrqelp94/16/2024Anosmia due to nasal mucosa marrwob2009/19/2023 Assessment & Plan (11/29/2023 4:38 PM EST): [...] differentials such as : age, tumor, sinus Lehgcljzn22/25/2023Right carpal tunnel dqphsaeu36/25/2023Hearing loss06/09/2022 Palatal ybgdix6406/09/20226763Veywdlnz57/25/2022re-op exam10/26/2021AD (peripheral artery disease)09/21/2021 Overview (10/31/2023): Added automatically from request for surgery [id number] Assessment & Plan (11/20/2024 6:55 AM EST): [...] his leg pain is more related neuropathy Wikuawzvtcru89/07/2021 Overview (02/27/2024): Added automatically from request for surgery [id number] Last Assessment & Plan: Arterial Duplex US RLE PVR Continue Plavix and statin. Smoking cessation. Sebaceous cyst11/07/2019 Assessment & Plan (11/29/2023 4:36 PM EST): Still waiting on approval from vascular to stop plavix for proceedure Resolved Problems ProblemNoted DateDiagnosed DateResolved DateHeart failure, kbiokqinwzg96/05/2025 03/27/2025 Assessment & Plan (11/20/2024 6:53 AM EST): Per ECHO findings Farxiga and b shima therapy Pneumonia due to infectious Assessment & Plan (04/04/2024 10:06 AM EDT): Resolved, no breathing issues Assessment & Plan (03/14/2024 11:55 AM EDT): Finish atb, no acute distress today Fu in 3 weeks for recheck Discussed although no formal testing likely COPD/Emphysema At this time no further testing Peripheral ofmgjswyih28/14/202402/Uncontrolled type 2 diabetes mellitus with uthciyfpgupkj82 Assessment & Plan (04/04/2024 10:07 AM EDT): [...] this time 3 months ago 7.8% Incisional yodpxwaiv58/MI 29.0-29.9,adult/ Ujbbapkk97iabetic kcjxjkurpx34/16/202411/02/2024 Kowqsleqqnlniv03/25/202306/Mild aortic bijtbkoe56 Obesity (BMI 30.0-34.9)/raining postoperative wound / Immunizations ImmunizationAdministration DatesNext DueInfluenza, High Dose Seasonal, Preservative Free07/25/2019Influenza, High-dose Seasonal, Quadrivalent, Preservative Free08/03/2023Influenza, injectable, quadrivalent, preservative free07/27/2022,06/30/2020Influenza, trivalent, qyimaqqett28/27/2024Pneumococcal Conjugate PCV 131Pneumococcal Polysaccharide LLUK904511/07/2019Tetanus toxoid, kcfoydtm28/17/2003Zoster, Jmowtwwovli33/04/2023Zoster, live08/26/2017 Family History RelationNameStatusCommentsFatherDeceasedMotherDeceased Social History Tobacco UseTypesPacks/DayYears UsedDateSmoking Tobacco: Every DayCigarettes Smokeless Tobacco: Never Tobacco Cessation:Ready to Q uit: Not Asked; Counseling Given: Not Answered Alcohol UseStandard Drinks/WeekCommentsNever0 (1 standard drink = 0.6 oz pure alcohol)PHQ-2AnswerDate RecordedPatient Health Questionnaire-2 Edfds725 Sex and Gender InformationValueDate RecordedSex Assigned at BirthNot on file Legal ZveZmjq6312/28/2022 10:09 PM EDTGender IdentityNot on fileSexual Orientation Not on file Last Filed Vital Signs Vital SignReadingTime TakenCommentsBlood Tqtmqcvg138/7206 1:10 PM EDT Dwitr220204/08/2025 1:10 PM FFZDguzfrpalvp33.6 ??C (97.8 ??F)04/08/2025 1:10 PM EDTRespiratory Eets673204/08/2025 1:10 PM EDTOxygen Kzrbktleqf35%04/08/2025 1:10 PM EDTInhaled Oxygen Concentration--Axyrtg78.4 kg (186 lb)04/08/2025 1:10 PM EDT Bvtzvz586.2 cm (5' 7 )08/20/2024 2:27 PM ESTBody Mass Index29.13110/20/2023 2:27 PM EST Plan of Treatment Health MaintenanceDue DateLast DoneCommentsCT Ifoxhmgbsjvy1950FIT-DNA 1950FIT1950FOBT1950 0898Cafmkohivrmjm1950TaP/Tdap/Td Vaccines (1 - Tdap)1958COVID-19 Vaccine ( season)2025 07/12/2024, 09/14/2023, 01/19/2022, Additional history existsInfluenza Vaccine (#1)/, 08/03/2023, 07/27/2022, Additional history exists Diabetes: Hemoglobin A1C/, 03/27/2025, 11/20/2024, Additional history existsDiabetes: Retinopathy Zgshyvygp20/03/2025, 11/22/2023, 04/15/2022Medicare Annual Wellness (AWV), 02/27/2024, 02/27/2024iabetes: Urine Protein Wwwtxgsmi73/, 01/27/2023 Pynyksjyfqt69/01/202701/10/2016Colorectal Cancer Xtgosmyop81/01/2027Pneumococcal Vaccine: 65+ PtqulFobgeyhnh10/23/2020, 08/07/2019HIB VaccinesAged OutNo longer eligible based on [...] Procedures Procedure NamePriorityDate/TimeAssociated DiagnosisCommentsPOCT GLYCOSYLATED HEMOGLOBIN (HGB A1C)Ionakdk9203/27/2025 2:37 PM EDT Type 2 diabetes mellitus with diabetic peripheral angiopathy without gangrene, without long-term current use of insulin (HCC) from Last 3 Months or Most Recently Relevant to Health Maintenance Insurance Care Teams Team MemberRelationshipSpecialtyStart DateEnd Date Mumtaz Jensen MD [facility] - [facility] Tonya Dye NP [address] [place] [address] PCP - ACO [facility]11/22/24 Tonya Dye NP Referring PhysicianNSainte [facility]ev[facility]03/09/23
--- NOTE | 2025-08-19 12:45 | CT_ITS ---
The [address] [address] Patient Name: TERRI LOWE MRN: [id number] date: 1950 Sex: M Assigned Patient Location: LAB Current Patient Location: Accession/Order Number: [id number] Exam Date: 08/19/2025 14:10 Report Date: 08/20/2025 08:18 At the request of: MARY JO JORDAN NP Procedure: CT abdomen pelvis w con CT ABDOMEN AND PELVIS WITH CONTRAST COMPARISON: 04/04/2025 CLINICAL DATA: Enlarged prostate. Intra-abdominal lymphadenopathy. Spiral images were obtained through the abdomen and pelvis following oral and 100 mL of Omnipaque 300. This CT exam was performed using one or more following dose reduction techniques: Automated exposure control, adjustment of the mA and/or kV according to patient size, or use of iterative reconstruction technique. Limited cuts through the lung bases show minimal linear scarring or atelectasis. Coronary artery disease is seen. There is mild fatty infiltration of the liver. Possible subtle cholelithiasis and/or sludge is not excluded. There is continued mild peripheral hypodensity at the spleen, not significantly changed. There are calcifications at the pancreatic head which may reflect chronic pancreatitis. There is no active inflammation at this time. There are stable bilateral nodular adrenal limb thickening, greater on the left. Minor perinephric fibrofatty stranding on both sides. Tiny cysts are seen. There is no hydronephrosis. There is atherosclerotic plaque at the aorta, iliac and some of the visceral arteries. There is luminal narrowing at the distal aorta and common iliac arteries bilaterally. Gastrohepatic ligament lymph nodes at the time of comparison study have decreased in size, the largest from 16 to 11 mm . There are other small retroperitoneal lymph nodes which have not significant changed. No ascites is seen. The small bowel loops are normal caliber. Mild stool is present along the colon. There are left-sided colonic diverticula. Slight dextroscoliotic curvature and degenerative changes are visualized at the spine. Images through the pelvis show no appendiceal inflammation. There are normal caliber small bowel loops. There is mild distal colonic stool. Additional colonic diverticula are noted, without associated active inflammation. The prostate is prominent, heterogeneous and contains calcification. There is mass effect at the bladder trigone. There are 2 posterior bladder diverticula, the larger on the right. No other bladder abnormalities are seen. No ascites is noted. CT/CT abdomen pelvis w con IMPRESSION: FATTY LIVER. POSSIBLE CHOLELITHIASIS OR SLUDGE. STABLE ADRENAL NODULARITY, SUBCAPSULAR SPLENIC HYPODENSITY AND RENAL CYSTS. NO BOWEL OR URINARY TRACT OBSTRUCTION. DIVERTICULOSIS. PROSTATE HYPERTROPHY. URINARY BLADDER DIVERTICULA. DECREASING SIZE OF GASTROHEPATIC LIGAMENT NODES. Impression dictated by: Mary Jim M.D. 08/20/2025 8:18 AM Dictation Location: [place] [address] Electronically authenticated by: [id number] Date: 08/20/2025 08:18
--- OUTSIDE RECORDS SUMMARY | 2025-08-19 12:50 | XMS_ITS | CCD ---
Author Organization [facility] Care Team Providers Care Marketing Program Manager Name Role Phone Shen Luis Unavailable Kennedi Ocasioew Unavailable TONYA DYE Primary Care Physician [phone] Bernadine SARAVIA Attending Unavailable AICHBRETT, TONYA CAMARGO J Referring Unavailabl e Bernadine SARAVIA Attending Unavailable AICHBRETT, TONYA Reynolds Referring Unavailabl e Bernadine SARAVIA Attending Unavailable Bernadine SARAVIA Attending Unavailable AICHHOLZ, COMMUNICATIONS SPECIALIST TONYA Consulting Unavailable AICHHOLZ, COMMUNICATIONS SPECIALIST TONYA Primary Care Unavailable AICHHOLZ, COMMUNICATIONS SPECIALIST TONYA Attending Unavailable AICHHOLZ, COMMUNICATIONS SPECIALIST TONYA Admitting Unavailable AICHHOLZ, COMMUNICATIONS SPECIALIST TONYA Consulting Unavailable AICHHOLZ, COMMUNICATIONS SPECIALIST TONYA Primary Care Unavailable AICHHOLZ, COMMUNICATIONS SPECIALIST TONYA Attending Unavailable AICHHOLZ, COMMUNICATIONS SPECIALIST TONYA Admitting Unavailable ZIEBLILI, DR BHAVANA Pinzon Consulting Unavailable ABBAS, DR ANNE Consulting Unavailable AICHHOLZ, COMMUNICATIONS SPECIALIST TONYA Primary Care Unavailable ABBAS, DR ANNE Attending Unavailable MILLICENT, DR ANNE Admitting Unavailable PRIETO, DR BHAVANA Pinzon Consulting Unavailable VALDES ., MR KELLER Consulting Unavailable AICHHOLZ, COMMUNICATIONS SPECIALIST TONYA Primary Care Unavailable VALDES ., MR KELLER Attending Unavailable VALDES ., MR KELLER Admitting Unavailable AICHHOLZ, COMMUNICATIONS SPECIALIST TONYA Consulting Unavailable AICHHOLZ, COMMUNICATIONS SPECIALIST TONYA Primary Care Unavailable AICHHOLZ, COMMUNICATIONS SPECIALIST TONYA Attending Unavailable AICHHOLZ, COMMUNICATIONS SPECIALIST TONYA Admitting Unavailable PRIETO, DR BHAVANA Pinzon Consulting Unavailable CARLOS, DR IRENE Pinzon Procedure Practitioner Unavailkatja GONZALEZ, DR IRENE Pinzon Consulting Unavailable DHAVAL, SHAIKH Tucker Attending Unavailable SHAIKH PUENTES H Admitting Unavailable AICHHOLZ, COMMUNICATIONS SPECIALIST TONYA Primary Care Unavailable CHIO Cid, DR BERNADINE Pink Consulting Unavaila rg BARROSO ., DR BERNADINE Pink Procedure Practitioner U IAN Caputo Consulting Unavailable SHAIKH Tucker PUENTES Consulting Unavailable SOFIA KWONG Consulting Unavailable BHAVANA MCCANN Consulting Unavailable NILL ., DR COLINDRES Consulting Unavailable AICHHOLZ, COMMUNICATIONS SPECIALIST TONYA Primary Care Unavailable NILL ., DR COLINDRES Attending Unavailable NILL ., DR COLINDRES Admitting Unavailable DASHA JOINER Consulting Unavailable AICHHOLZ, COMMUNICATIONS SPECIALIST TONYA Primary Care Unavailable NILL ., DR COLINDRES Attending Unavailable NILL ., DR COLINDRES Admitting Unavailable CARLOS, DR IRENE Pinzon Consulting Unavailable GONZALEZ, DR IRENE Pinzon Attending Unavailable GONZALEZ, DR IRENE Pinzon Admitting Unavailable AICHHOLZ, COMMUNICATIONS SPECIALIST TONYA Primary Care Unavailable ROSARIO BLANCO Consulting Unavailable AICHHOLZ, COMMUNICATIONS SPECIALIST TONYA Consulting Unavailable AICHHOLZ, COMMUNICATIONS SPECIALIST TONYA Primary Care Unavailable AICHHOLZ, COMMUNICATIONS SPECIALIST TONYA Attending Unavailable AICHHOLZ, COMMUNICATIONS SPECIALIST TONYA Admitting Unavailable AICHHOLZ, COMMUNICATIONS SPECIALIST TONYA Consulting Unavailable AICHHOLZ, COMMUNICATIONS SPECIALIST TONYA Primary Care Unavailable AICHHOLZ, COMMUNICATIONS SPECIALIST TONYA Attending Unavailable AICHHOLZ, COMMUNICATIONS SPECIALIST TONYA Admitting Unavailable AICHHOLZ, COMMUNICATIONS SPECIALIST TONYA Consulting Unavailable AICHHOLZ, COMMUNICATIONS SPECIALIST TONYA Primary Care Unavailable AICHHOLZ, COMMUNICATIONS SPECIALIST TONYA Attending Unavailable AICHHOLZ, COMMUNICATIONS SPECIALIST TONYA Admitting Unavailable ABBAS, DR ANNE Consulting Unavailable AICHHOLZ, COMMUNICATIONS SPECIALIST TONYA Primary Care Unavailable ABBAS, DR ANNE Attending Unavailable ABBAS, DR ANNE Admitting Unavailable LA PUENTE, DR BINDU Brown Consulting Unavailable AICHHOLZ, COMMUNICATIONS SPECIALIST TONYA Primary Care Unavailable AICHHOLZ, COMMUNICATIONS SPECIALIST TONYA Attending Unavailable AICHHOLZ, COMMUNICATIONS SPECIALIST TONYA Admitting Unavailable AICHHOLZ, COMMUNICATIONS SPECIALIST TONYA Consulting Unavailable Aichholz, Tonya J Primary Care Provider MD Shen Luis Attending Provider Aichholz MANAGER WOUND CARE, Tonya Unavailable Mumtaz Jensen MD Primary Care Provider Ranulfo Zavala Attending Unavailable Aichholz, Tonya J Primary Care Unavailable Ranulfo Zavala Admitting Unavailable Shen Luis Admitting Unavailable Shen Luis Attending Unavailable Aichholz, Tonya J Primary Care Unavailable Ranulfo Zavala Admitting Unavailable Ranulfo Zavala Attending Unavailable AichholTonya frye Primary Care Unavailable Aichholz MANAGER WOUND CARE, Tonya Unavailable Aichholz NUTRITION HELPER-COMMUNICATIONS SPECIALIST, Tonya Reynolds Primary Care Provider Eloisaholmelva NUTRITION HELPER-COMMUNICATIONS SPECIALIST, Tonya Reynolds Primary Care Provider Aictuckerholmelva MANAGER WOUND CARE, Tonya Unavailable TONYA DYE Attending Unavailable AICHHOLZ, [...] AICHTONYA WEST J Primary Care Unavailable Aichholz MANAGER WOUND CARE-C, Tonya Reynolds Primary Care Provider Aichholz MANAGER WOUND CARE-C, Tonya Reynolds Attending Provider [phone] MICI, VANESSA Attending Unavailable AICHHOLZ, TONYA J [...] Care Unavailable KAMRAN REBOLLEDO Attending Unavailable AICHHOLZ, TOYNA J Referring Unavailable AICHHOLZ, TONYA J Primary [...] AICHHOLZ, TONYA J Primary Care Unavailable Aichholz MANAGER WOUND CARE, Tonya Unavailable Mumtaz Jensen MD Primary Care Provider [phone] Aichholz MANAGER WOUND CARE, Tonya Unavailable Allergies Allergy ClassificationReported Allergen(s)Allergy TypeDate of OnsetReaction(s) Facility (20 sources)Ciprofloxacin; Translations: [ciprofloxacin]Drug Tuxlgaq10-04-2288 Itching (finding), Unknown, HivesGeneral Surgery [place] (20 sources)liraglutide; Translations: [liraglutide]Drug Chojuua62-34-0805 Itching (finding)General Surgery [place] (4 sources)liraglutide; Translations: [Victoza]Drug Ejtykqw09-55-7280yqgnGrblzgMary [facility] (7 sources)Penicillin; Translations: [penicillin]Drug AllergyItching (finding) General Surgery [place] (5 sources)Penicillin VDrug AllergyUnkOsteopathic Hospital of [facility] 1o1Media Other (8 sources)PollenPropensity to adverse reactionsOur Lady of Fatima Hospital 1o1Media Other (20 sources)Cefaclor; Translations: [cefaclor]Drug Qjcnnpi93-86-2268Ksyjcga (finding)General Surgery [place]Comment on above:itching, high blood pressure (2 sources)Ciprofloxacin; Translations: [Cipro]Drug Lrdvqwh09-88-6011NojjjsCleveland Clinic [facility]ository (1 source)CefaclorDrug AllergyBlanchard Valley Health [facility] (1 source)dulaglutideDrug Ijfqvcd74-85-5804PlmBlanchard Valley Health System [facility] (1 source)insulin aspart, humanDrug Ocbxmnf33-70-4034YvwBlanchard Valley Health System [facility] (1 source)PenicillinDrug Bdabasx77-14-1703OibBlanchard Valley Health System [facility] (20 sources)Penicillins; Translations: [Penicillins]Allergy to substance 97-33-5965LvujshhPzoyreilgGerman Hospital (20 sources)dulaglutide; Translations: [DULAGLUTIDE]Drug Vgkzwjp05-22-6469 [facility] (20 sources)liraglutideDrug Brfhxcb72-93-0255MdwklzkDDON Healthcare (20 sources)Penicillin GDrug Ekvfwll12-74-3045MdgrqhtXPHY Healthcare (1 source)CefaclorDrug Usrixda23-04-4294NdngetltrVeterans Health Administration Repository (1 source)CiprofloxacinDrug Hipiycr69-39-1886WizlomwlyVeterans Health Administration Repository (1 source)dulaglutideDrug Ojcnvyw56-28-8635WjhvkczrkVeterans Health Administration Repository (1 source)liraglutideDrug Dshiqcn99-66-8867XcmibugupVeterans Health Administration Repository (3 sources)PollenDrug allergy (disorder)70-72-9765XucxikbppNciqdkxiwWestern Reserve Hospital Repository (20 sources)dulaglutideDrug Cmanfoq13-84-6096SLPullman Regional Hospital System Medications Current Medications MedicationDrug Class(es)DatesSig (Normalized)Sig (Original)[id number] 200 actuat albuterol 0.09 mg/actuat metered dose inhaler (20 sources)beta2-Adrenergic AgonistStart: 35-18-2551oayx 2 puff(s) by inhalation every four hours for wheezingVentolin HFA 108 (90 Base) MCG/ACT inhaler Inhale 2 puffs every 4 (four) hours if needed for wheezing or shortness of breath 03/12/2024 Activeamiodarone hydrochloride 200 mg oral tablet (19 sources)AntiarrhythmicStart: 48-73-2934Yvwtrktmfv 200 mg tablet Active 100 MG PO Daily August 13, 2025 2:19pm Complies with drug therapyStart: 06-27-2025 End: 40-61-4218ivck 1 tablet by mouth once dailyAmiodarone 200 mg tablet Discontinued 200 MG PO Daily June 27, 2025 12:00am August 13, 2025 2:22pmStart: 06-17-2025 End: 32-67-1572ftag 2 tablets by mouth twice daily, then take 1 tablet by mouth once dailyamiodarone (PACERONE) 200 mg tablet Take 2 tablets (400 mg total) by mouth 2 (two) times a day for 4 days, THEN 1 tablet (200 mg total) daily for 30 days. 46 tablet 06/17/2025 07/21/2025 Activeatorvastatin 40 mg oral tablet (20 sources)HMG-CoA Reductase InhibitorStart: 06-17-2025 End: 95-05-7621onmz 1 tablet by mouth once dailyatorvastatin (LIPITOR) 40 mg tablet Take 1 tablet (40 mg total) by mouth nightly for 360 days. 90 tablet 3 07/15/2025 07/10/2026 Activecilostazol 100 mg oral tablet (9 sources)Phosphodiesterase 3 InhibitorStart: 21-37-0247mrgr 1 tablet by mouth twice dailycilostazol 100 mg Tab 100 mg = 1 tab(s), Oral, BID, Refills(s) 0 Start Date: 08/24/22 Status: OrderedclonazePAM 0.5 mg oral tablet (3 sources)BenzodiazepineStart: 43-51-7818eric 1 tablet by mouth twice daily as needed for anxietyKlonopin 0.5 mg Tab 0.5 mg = 1 tab(s), Oral, BID, PRN Anxiety, Refills(s) 0 Start Date: 08/24/22 Status: Orderedclopidogrel 75 mg oral tablet (20 sources)P2Y12 Platelet InhibitorStart: 03-09-2021 End: 25-26-8221ytqd 1 tablet by mouth in the morningclopidogreL (PLAVIX) 75 mg tablet Take 1 tablet (75 mg total) by mouth in the morning. 90 tablet 3 0 07/15/2025 Activedapagliflozin 10 mg oral tablet (20 sources)Sodium-Glucose Cotransporter 2 InhibitorStart: 12-19-2022 End: 86-89-8611UUZVLKB 10 mg tablet 1 mg in the morning. 12/19/2022 ActiveStart: 60-07-8852eorz 1 tablet by mouth once dailyFarxiga 5 mg oral tablet 5 mg = 1 tab(s), Oral, Daily, Refills(s) 0 Start Date: 08/24/22 Status: Ordereddocusate sodium 50 mg / sennosides, correction 8.6 mg oral tablet (6 sources)Start: 06-17-2025 End: 56-51-7634fmkb 2 tablets by mouth once dailysennosides-docusate sodium (SENOKOT-S) 8.6-50 mg Take 2 tablets by mouth nightly for 14 days. 28 tablet 06/17/2025 07/01/2025 Activedoxycycline hyclate 100 mg oral tablet (2 sources)Tetracycline-class DrugStart: 01-29-2025 End: 02-83-2114xpns 1 tablet by mouth in the morningdoxycycline [...] sulfate 325 mg oral tablet (20 sources)Start: 27-71-3086fdtl 1 tablet by mouth once dailyFerrous Sulfate 325 mg (65 mg iron) tablet Active 325 MG PO Daily August 06, 2025 12:00am Complies with drug therapyStart: 78-56-4886xosh 1 tablet by mouth twice daily ferrous sulfate 325 mg oral enteric coated tablet 325 mg = 1 tab(s), Oral, BID, Refills(s) 0 Start Date: 08/24/22 Status: OrderedFlonase 0.05 mg/inh nasal spray (1 source)Start: 96-59-1686Gnzzgbh 0.05 mg/inh nasal spray 2 spray(s), Nasal, Daily, Refill(s) 0 Start Date: 08/24/22 Status: Orderedfluticasone propionate 0.05 mg/actuat metered dose nasal spray (20 sources)CorticosteroidStart: 78-67-6498duec 1 spray(s) nasal route once dailyFluticasone Propionate 50 mcg/actuation spray,suspension Active 2 SPRAY INTRANASAL Daily June 27, 2025 12:00am administer into each nostril Complies with drug therapyStart: 11-20-2024 End: 28-02-1122ormp 2 spray(s) nasal route once dailyfluticasone (Flonase) 50 MCG/ACT nasal spray Indications: Allergic rhinitis, unspecified seasonality, unspecified trigger Administer 2 sprays into each nostril Daily Shake gently. Before first use, prime pump. After use, clean tip and replace cap. 48 g 2 03/03/2025 06/01/2025 ActiveStart: 05-12-2023 End: 69-77-1078nrtrojunsjo (Flonase) 50 MCG/ACT nasal spray 05/12/2023 11/20/2024 Discontinued (Reorder)Start: 73-75-2819Ovzreos 0.05 mg/inh nasal spray 2 spray(s), Nasal, Daily, Refill(s) 0 Start Date: 08/24/22 Status: Ordered Start: 98-40-6463wxqb 1 spray(s) nasal route once daily as neededFlonase 50 MCG/ACT 1 spray in each nostril Nasally Once a day for 10 day(s) PRN Jun, Not-Taking/PRNStart: 21-86-6547sbyn 1 spray(s) nasal route once daily as neededFlonase 50 MCG/ACT 1 spray in each nostril Nasally Once a day for 10 day(s) PRN Jun, Not-TakingStart: 03-11-8098dszg 2 spray(s) nasal route once dailyfluticasone (FLONASE) 50 mcg/actuation nasal spray Indications: Obstruction of paranasal sinus Administer 2 sprays into each nostril daily. 16 g 11 11/07/2017 Activegabapentin 600 mg oral tablet (20 sources)Anti-epileptic AgentStart: 60-61-2068souy 2 tablets by mouth at bedtimeGabapentin 600 mg tablet Active 600 MG PO .COMPLEX June 27, 2025 12:00am 600 mg orally 1 am,1 in afternoon, and 2 at bedtime; Complies with drug therapyStart: 01-16-2024 End: 53-06-0923rbbpsqmgut (Neurontin) 600 MG tablet Indications: Diabetic polyneuropathy associated with type 2 diabetes mellitus (HCC) 1 am , 1 in the afternoon, and 2 at bedtime 360 tablet 1 03/03/2025 ActiveStart: 12-20-2023 End: 65-61-1816oblv 1 capsule by mouth three times dailyGabapentin 400 mg capsule Discontinued 400 MG PO Three times daily December 20, 2023 1:00am 2024 5:19pmStart: 26-62-1507ahqxnpfkrp (Neurontin) 400 MG capsule as directed, Refills(s) 0 0 08/24/2022 ActiveStart: 03-09-2021 End: 39-46-1572egsi 1 capsule by mouth four times dailyGabapentin [...] ActiveglipiZIDE 10 mg oral tablet (20 sources)SulfonylureaStart: 05-84-7076ftnv 1 tablet by mouth twice daily Glipizide 10 mg tablet Active 10 MG PO Twice daily March 09, 2021 12:00am Complies with drug therapyStart: 03-09-2021 End: 94-10-1803prnx 1 tablet by mouth in the morningglipiZIDE (Glucotrol) 10 MG tablet Indications: Uncontrolled type 2 diabetes mellitus with hyperglycemia (HCC) Take 1 tablet (10 mg) by mouth in the morning and 1 tablet (10 mg) in the evening. Take before meals. 180 tablet 1 03/03/2025 06/01/2025 ActivehydrOXYzine pamoate 25 mg oral capsule (1 source)AntihistamineStart: 70-28-5668bmde 1 capsule by mouth twice daily as needed for anxietyHydroxyzine Pamoate 25 mg capsule Active 25 MG PO Twice daily as needed for anxiety 60 0 August 04, 2025 12:00am Generalized anxiety disorder with panic attacks Generalized anxiety disorder Panic disorder [episodic paroxysmal anxiety] Complies with drug therapymetFORMIN hydrochloride 1000 mg oral tablet (20 sources)BiguanideStart: 08-31-2017 End: 82-07-6408oxuUINARG (GLUCOPHAGE) 1000 mg tablet 1 tablet (1,000 mg total) in the morning and 1 tablet (1,000 mg total) in the evening. Take with meals. 08/31/2017 Activemetoprolol tartrate 100 mg oral tablet (20 sources)beta-Adrenergic BlockerStart: 06-17-2025 End: 18-46-4046eavv 1 tablet by mouth in the morning, then take 1 tablet by mouth at bedtimemetoprolol tartrate (LOPRESSOR) 100 mg tablet Take 1 tablet (100 mg total) by mouth in the morning and 1 tablet (100 mg total) before bedtime. Do all this for 360 days. 180 tablet 3 07/15/2025 07/10/2026 ActiveStart: 08-29-2017 End: 07-23-6677zqyk 1 tablet by mouth twice dailyMetoprolol Tartrate 50 mg tablet Discontinued 50 MG PO Twice daily March 09, 2021 12:00am 2024 5:24pmStart: 08-29-2017 End: 19-13-2586cyoz 1 tablet by mouth in the morning, [...] oral tablet (3 sources)Nitroimidazole AntimicrobialStart: 04-08-2025 End: 35-13-5118zloj 1 tablet by mouth every eight hoursmetroNIDAZOLE (Flagyl) 500 MG tablet Indications: Diverticulitis Take 1 tablet (500 mg) by mouth every 8 (eight) hours for 7 days No alcohol use while taking this medication 21 tablet 04/08/2025 04/15/2025 ActiveoxyCODONE hydrochloride 5 mg oral tablet (6 sources)Opioid AgonistStart: 27-63-3402Ftfjjxehi 5 mg tablet Active 5 MG PO .COMPLEX 0 June 27, 2025 12:00am 5 mg orally as directed; Complies with drug therapyStart: 06-17-2025 End: 63-96-9096nbsv 1 tablet by mouth every six hours [...] release oral tablet (20 sources)Proton Pump InhibitorStart: 52-40-2610vqzj 1 tablet by mouth once dailyPantoprazole 40 mg tablet,delayed release (DR/EC) Active 40 MG PO Daily June 27, 2025 12:00am Complies with drug therapyStart: 07-04-2024 End: 78-53-8913hhwc 1 tablet by mouth before mealtimepantoprazole (ProtoNix) 40 MG EC tablet Indications: Acute gastritis without hemorrhage, unspecified gastritis type Take 1 tablet (40 mg) by mouth in the morning. Take before meals. 90 tablet 1 03/03/2025 06/01/2025 Activepioglitazone 30 mg oral tablet (20 sources)Peroxisome Proliferator Receptor alpha Agonist, Peroxisome Proliferator Receptor gamma Agonist, ThiazolidinedioneStart: 12-20-2023 End: 03-89-5098bnjv 1 tablet by mouth once dailyPioglitazone 45 mg tablet Discontinued 45 MG PO every day at noon December 20, 2023 1:00am June 27, 2025 5:24pmStart: 08-31-2017 End: 61-86-4229qnpv 1 tablet by mouth in the morningpioglitazone (ACTOS) 30 mg tablet Take 1 tablet (30 mg total) by mouth in the morning. 08/31/2017 Active Actos Not-Taking/PRNActos Not-Takingsertraline 25 mg oral tablet (10 sources)Serotonin Reuptake InhibitorStart: 89-36-7526nlee 1 tablet by mouth once dailySertraline 25 mg tablet Active 25 MG PO Daily 30 August 04, 2025 12:00am Generalized anxiety disorder with panic attacks Generalized anxiety disorder Panic disorder [episodic paroxysmal anxiety]Complies with drug therapy Start: 11-78-0829cvrz 1 tablet by mouth once dailyZoloft 50 mg Tab 50 mg = 1 tab(s), Oral, Daily, Refills(s) 0 Start Date: 08/24/22 Status: Ordered sulfamethoxazole 800 mg / trimethoprim 160 mg oral tablet (3 sources)Dihydrofolate Reductase Inhibitor Antibacterial, Sulfonamide AntimicrobialStart: 04-08-2025 End: 81-85-2635wgjn 1 tablet by mouth oncesulfamethoxazole-trimethoprim (Bactrim DS) 800-160 MG per tablet Indications: Diverticulitis Take 1tablet by mouth every 12 (twelve) hours for 7 days 14 tablet 04/08/2025 04/15/2025 Active tamsulosin hydrochloride 0.4 mg oral capsule (20 sources)alpha-Adrenergic BlockerStart: 04-26-2024 End: 52-66-5217knda 1 capsule by mouth every twenty-four hours at bedtime tamsulosin (Flomax) 0.4 MG 24 hr capsule Take 0.8 mg by mouth at bedtime 10/07/2024 ActiveStart: 23-74-1419huzw 1 capsule by mouth every twenty-four hourstamsulosin (Flomax) 0.4 MG 24 hr capsule Take 0.4 mg by mouth. 0 08/24/2022 ActiveStart: 56-97-0251kffj 1 capsule by mouth once dailytamsulosin (FLOMAX) 0.4 mg capsule,extended release 24hr Take 1 capsule (0.4 mg total) by mouth nightly. 08/31/2017 ActivetraZODone hydrochloride 50 mg oral tablet (19 sources)Serotonin Reuptake InhibitorStart: 06-27-2025 End: 10-02-0747wagu 1 tablet by mouth once daily at bedtimeTrazodone 50 mg tablet Active 50 MG PO Daily at bedtime 30 1 July 29, 2025 4:55pm Primary insomnia Primary insomnia Complies with drug therapyStart: 03-27-2025 End: 37-02-7398lkui 1 tablet by mouth once dailytraZODone (DESYREL) 50 mg tablet Take 1 tablet (50 mg total) by mouth nightly. TAKE 1 TABLET (50 MG) BY MOUTH AT BEDTIME 03/27/2025 04/26/2025 Activetriamcinolone acetonide 1 mg/ml topical cream (17 sources)CorticosteroidStart: 06-04-2024 End: 03-21-4619yjtyselfkupao (Kenalog) 0.1 % cream Indications: Psoriasis Apply 1 application topically in the morning and 1 application before bedtime. Do all this for 21 days. 60 g 1 06/04/2024 06/25/2024 ActiveStart: 96-73-1140Avatsao - 40 mg Jul, 40 mgStart: 12-20-7584Dovevbsigrrgk Acetonide 0.1 % 1 application to affected area (10 cm area on both arms) Externally Twice a day for 10 day(s) PRN Jun, Not-Taking/PRNStart: 10-15-3869Xlrrslethoawd Acetonide 0.1 % 1 application to affected area (10 cm area on both arms) Externally Twice a day for 10 day(s) PRN Jun, Not-Takingtriamcinolone (Kenalog) 0.1 % cream every 12 (twelve) hours. 0 Activevitamin b12 1 mg oral capsule (20 sources)Vitamin U04Edjsa: 26-23-4677qqef 1 capsule by mouth once daily Cyanocobalamin (Vitamin B-12) 1,000 mcg capsule Active 1000 MCG PO Daily August 06, 2025 12:00amComplies with drug therapytake 1 tablet by mouth in the morningcyanocobalamin 1000 MCG tablet Take 1 tablet (1,000 mcg total) by mouth in the morning. ActiveVitamin B12 1000 mcg Tab (3 sources)Start: 75-00-9327qgwc 1 tablet by mouth once dailyVitamin B12 1000 mcg Tab 1,000 mcg = 1 tab(s), Oral, Daily, Refills(s) 0 Start Date: 08/24/22 Status: Orderedwarfarin sodium 2 mg oral tablet (20 sources)Vitamin K AntagonistStart: 06-18-2025 End: 07-12-1286ojjg 1-1.5 tablets by mouth in the eveningwarfarin (COUMADIN) 2 mg tablet Indications: S/P CABG (coronary artery bypass graft) , S/P AVR (aortic valve replacement) Take 1-1.5 tablets (2-3 mg total) by mouth in the evening. as directed by [facility] Medication Management (PPM). 135 tablet 1 08/15/2025 Active Completed/Discontinued Medications MedicationDrug Class(es)DatesSig (Normalized)Sig (Original)acetaminophen 325 mg / HYDROcodone bitartrate 5 mg oral tablet (11 sources)Opioid AgonistStart: 12-27-2023 End: 52-39-2335bten 1 tablet by mouth every six hours as needed for pain Hydrocodone-Acetaminophen 5-325 mg tablet Discontinued 1 TAB PO Q6H as needed for pain 20 7 0 2023June 27, 2025 5:24pm Sebaceous cyst Sebaceous cystStart: 03-14-2021 End: 90-18-0973lich 1 tablet by mouth every six hours as needed for pain Hydrocodone-Acetaminophen 5-325 mg tablet Discontinued 1 TAB PO Q6H as needed for pain 10 2 0 March 14, 2021 December 20, 2023 10:42am Pain of lower extremity Pain in leg, unspecifiedamLODIPine 5 mg oral tablet (20 sources)Dihydropyridine Calcium Channel BlockerStart: 09-25-2019 End: 10-33-8932brta 1 tablet by mouth once daily in the eveningAmlodipine 5 mg tablet Discontinued 5 MG PO Every evening March 09, 2021 12:00am August 0656:13amaspirin 81 mg delayed release oral tablet (20 sources)Platelet Aggregation Inhibitor, Nonsteroidal Anti-inflammatory Drug Start: 06-18-2025 End: 06-45-4810kvxr 1 tablet by mouth in the morningaspirin 81 mg Take 1 tablet (81 mg total) by mouth in the morning for 30 days. 30 tablet 06/18/2025 07/15/2025 DiscontinuedStart: 03-09-2021 End: 04-69-4178mubf 1 tablet by mouth once dailyAspirin (Aspir-Low) 81 mg Tablet,Delayed Release (Dr/Ec) Discontinued 81 MG PO Daily March 09506608:00am December 20, 2023 10:41amAspirin Adult Low Dose 81 MG as directed Orally Active busPIRone hydrochloride 5 mg oral tablet (2 sources)Start: 07-14-2025 End: 26-94-5877hxph 1 tablet by mouth twice daily as needed for anxietyBuspirone 5 mg tablet Discontinued 5 MG PO Twice daily as needed for anxiety 30 15 0 July 14, 2025 12:00am August 04, 2025 8:51am Generalized anxiety disorder with panic attacks Generalizedanxiety disorder Panic disorder [episodic paroxysmal anxiety]cyclobenzaprine hydrochloride 5 mg oral tablet (6 sources)Muscle RelaxantStart: 33-66-3223iupv 1 tablet by mouth every twenty- four hoursCyclobenzaprine HCl 5 MG 1 tablet at bedtime as needed Orally Once a day for 20 day(s) Dec,Not-Taking/PRNdicyclomine hydrochloride 20 mg oral tablet (9 sources)AnticholinergicStart: 07-04-2024 End: 79-36-0543ppgd 1 tablet by mouth four times daily as needed for pain dicyclomine (Bentyl) 20 MG tablet Take 20 mg by mouth 4 (four) times a day as needed (abd pain and cramping) 07/04/2024 11/20/2024 Discontinued (Therapy completed)esomeprazole 40 mg delayed release oral capsule (11 sources)Proton Pump InhibitorStart: 04-12-2025 End: 95-84-1017annpaabqciqy (NexIUM) 40 mg capsule Take 1 capsule (40 mg total) by mouth. 04/12/2025 06/03/2025 Discontinuedfamotidine 20 mg oral tablet (17 sources)Histamine-2 Receptor AntagonistStart: 06-18-2025 End: 17-75-7041uwnl 1 tablet by mouth once dailyFamotidine 20 mg tablet Discontinued 20 MG PO Daily June 27, 2025 12:00am July 15, 2025 4:15pmfurosemide 40 mg oral tablet (17 sources)Loop DiureticStart: 06-27-2025 End: 56-99-6275cnxj 1 tablet by mouth once dailyFurosemide 40 mg tablet Discontinued 40 MG PO Daily June 27, 2025 12:00am July 15, 2025 4:15pmStart: 06-17-2025 End: 11-23-3328bypb 1 tablet by mouth twice daily, then take 1 tablet by mouth once dailyfurosemide (LASIX) 40 mg tablet 40 milligrams p.o. b.i.d. times 7 days then decrease dosing to 40 milligrams p.o. daily x7 days 21 tablet 06/17/2025 07/15/2025 Discontinuedmupirocin 0.02 mg/mg topical ointment (1 source)RNA Synthetase Inhibitor AntibacterialStart: 06-03-2025 End: 62-70-7762avide 15 g nasal route twice dailymupirocin (BACTROBAN) 2 % ointment Indications: Nonrheumatic aortic (valve) stenosis , Severe aortic valve stenosis , Coronary artery disease involving platinum coronary artery of platinum heart, unspecified whether angina present Using qtip, swab a small amount inside each nostril twice a day 15 g 06/03/2025 06/17/2025 Discontinued (Stop Taking at Discharge)ondansetron 4 mg disintegrating oral tablet (9 sources)Serotonin-3 Receptor AntagonistStart: 07-04-2024 End: 31-65-7325dhxx 1 tablet by mouth every six hours as needed for nausea and vomitingondansetron ODT (Zofran-ODT) 4 MG disintegrating tablet Take 4 mg by mouth every 6 (six) hours if needed for nausea or vomiting 07/04/2024 11/20/2024 Discontinued (Therapy completed)potassium chloride 10 meq extended release oral tablet (17 sources)Start: 06-27-2025 End: 44-71-1469Qorchaxiu Chloride 10 mEq tablet extended release Discontinued MEQ PO June 27, 2025 12:00am July 15, 2025 4:15pmStart: 06-17-2025 End: 83-23-5413kwciljkes chloride (K-TAB,KLOR-CON) 10 MEQ CR tablet 10 milliequivalents 2 times daily x7 days thendecrease dosing to 10 milliequivalents daily x7 days 21 tablet 06/17/2025 07/15/2025 Discontinued simvastatin 20 mg oral tablet (20 sources)HMG-CoA Reductase InhibitorStart: 03-09-2021 End: 07-94-6376ofcb 1 tablet by mouth once daily in the morningSimvastatin 20 mg tablet Discontinued 20 MG PO Every morning March 09, 2021 12:00am June 5:24pmsucralfate 1000 mg oral tablet (14 sources)Aluminum ComplexStart: 04-12-2025 End: 98-69-9848apfc 1 tablet by mouth once dailysucralfate (CARAFATE) 1 gram tablet Take 1 tablet (1 g total) by mouth Daily at 0630. 04/12/2025 06/03/2025 Discontinued (Therapy completed)Start: 07-04-2024 End: 11-55-7062jhis 1 tablet by mouth every six hours as neededsucralfate (Carafate) 1 g tablet Take 1 g by mouth every 6 (six) hours if needed (abd pain) 07/04/2024 07/22/2024 Discontinued (Therapy completed) Problems Active Problems Problem ClassificationProblemDateDocumented DateEpisodic/ChronicAnxiety disorders (20 sources)Panic disorder; Translations: [Panic disorder [episodic paroxysmal anxiety]]Onset: 172577-33-2162DqnxbbyVtdagay dysrhythmias (20 sources)Multiple premature ventricular complexes; Translations: [Ventricular premature depolarization]Onset: 029687-28-4513YgbdliuThyuybd obstructive pulmonary disease and bronchiectasis (1 source)Chronic obstructive pulmonary disease, unspecified; Translations: [COPD UNSPECIFIED]Onset: 81-69-5055IkvfkelRrpomlnfwlthg of surgical procedures or medical care (20 sources)Wound discharge; Translations: [Other complications of procedures, not elsewhere classified, initial encounter]Onset: 12-03-2021 Resolved: 951407-67-7471WsiyzbceMluhaywecz heart failure; nonhypertensive (20 sources)Diastolic dysfunction; Translations: [Other ill-defined heart diseases]Onset: 10-31-2023 Resolved: 505146-82-1395VnqswugSzlssvyi atherosclerosis and other heart disease (20 sources)Coronary arteriosclerosis; Translations: [Atherosclerotic heart disease of platinum coronary artery without angina pectoris]Onset: 03-29-2024 Resolved: 852997-34-5809RxagcyrBfdgtugl atherosclerosis and other heart disease (2 sources)Presence of aortocoronary bypass graft; Translations: [Presence of aortocoronary bypass graft]Onset: 27-86-7540YhflhpqjEmuwtfvqeb and other anemia (5 sources)Iron deficiency anemia, unspecified; Translations: [IRON DEFICIENCY ANEMIA UNSPECIFIED]Onset: 13-10-9320UbhspcmlHfehjofb mellitus with complications (20 sources)Type 2 diabetes mellitus in obese; Translations: [Type 2 diabetes mellitus with other specified complication]Onset: 04-04-2022 Resolved: 972469-45-8083TtvwrwbChmiwkqg mellitus without complication (20 sources)Diabetes mellitus; Translations: [Type 2 diabetes mellitus without complications]Onset: 03-29-2022 Resolved: 194810-22-1757PplefrwJkexgtyv of white blood cells (1 source)Elevated white blood cell count, unspecified; Translations: [ELEVATED WHITE BLOOD CELL COUNT UNS]Onset: 66-60-2474JgxcgdyPyuctruwf of lipid metabolism (20 sources)Mixed hyperlipidemia; Translations: [Mixed hyperlipidemia]Onset: 328612-54-7679NpwryjxAknyvbwotairmn and diverticulitis (20 sources)Diverticulosis of large intestine without perforation or abscess with bleeding; Translations: [Diverticulitis]Onset: 621323-21-6847Rlgjgoe Essential hypertension (20 sources)Essential hypertension; Translations: [Essential (primary) hypertension]Onset: 003668-58-4333BvvhotbHfxrn valve disorders (20 sources)Nonrheumatic aortic (valve) stenosis; Translations: [Aortic valve disorders]Onset: 05-09-2022 Resolved: 024928-47-4023PwqyiqaBnwchoheeiy of prostate (20 sources)Benign prostatic hyperplasia; Translations: [Benign prostatic hyperplasia without lower urinary tract symptoms]Onset: ChronicHypertension with complications and secondary hypertension (1 source)Hypertensive heart disease with heart failure; Translations: [HTN HEART DISEASE W/HEART FAIL]Onset: 86-19-5258TjlgojrExtutwaexlepq and screening for infectious disease (2 sources)Encounter for immunization; Translations: [Patient encounter status] Onset: 931406-84-5140CwgvhocbFrhjsqltifaba (2 sources)Disorder of intra-abdominal lymph nodes; Translations: [Localized enlarged lymph nodes]42-43-3270PdyyksliHlprkkdmcqejb mental health disorders (20 sources)Primary insomnia; Translations: [Primary insomnia]Onset: 03-27-2025 74-47-8573LqdlvxuJcttfxdscgnxhs (9 sources)Arthritis of right knee; Translations: [Unilateral primary osteoarthritis, right knee]Onset: 07-29-2021 Resolved: 99-00-9637LumwsobCmhcn circulatory disease (3 sources)History of arterial bypass of lower limb artery; Translations: [Presence of other vascular implantsand grafts]14-38-2580LgehpfaQspou circulatory disease (1 source)Presence of other vascular implants and grafts; Translations: [Presence of other vascular implants and grafts]Onset: 47-49-7523KuqrisuXddek circulatory disease (2 sources)Other specified symptoms and signs involving the circulatory and respiratory systems; Translations:[OTH SPEC SX SIGNS INVLV CIRC RS]Onset: 54-82-2165HcqyfmhmZbvmi connective tissue disease (1 source)Olecranon bursitis, left elbowEpisodicOther connective tissue disease (1 source)Olecranon bursitis, right elbowEpisodicOther connective tissue disease (3 sources)Pain in lower limb; Translations: [Pain in leg, unspecified] 60-93-6955DaswrcxiGffjwpl on above:Problem List clean-up per request of Phys. EHR CmteOther connective tissue disease (2 sources)Bilateral olecranon bursitis; Translations: [Olecranon bursitis, right elbow]28-47-6476WeblxwovPjsvz diseases of bladder and urethra (1 source)Other specified disorders of bladder; Translations: [OTHER SPECIFIED DISORDERS BLADDER]Onset: 90-29-1067NnzfyipAwakm ear and sense organ disorders (20 sources)Hearing loss; Translations: [Unspecified hearing loss, unspecified ear]Onset: 709486-29-5926TvwyiljNermc ear and sense organ disorders (1 source)Unspecified hearing loss, unspecified ear; Translations: [UNS HEARING LOSS UNSPECIFIED EAR]Onset: 43-02-2891DwizutgNxxqc endocrine disorders (4 sources)Other specified disorders of adrenal gland; Translations: [OTHER SPEC DISORDERS ADRENAL GLAND]Onset: 32-31-4210ArnvjacYfudx endocrine disorders (20 sources)Adrenal mass; Translations: [Other specified disorders of adrenal gland]Onset: 380779-03-8520KsuadvqKsxpy gastrointestinal disorders (3 sources)Adrenal cxir29-29-3012BayboursSlrgq inflammatory condition of skin (20 sources)Psoriasis; Translations: [Psoriasis, unspecified]Onset: 03-09-2023 77-85-0751LuvoenpWlqdu nervous system disorders (1 source)Carpal tunnel syndrome; Translations: [Carpal tunnel syndrome, unspecified upper limb]ChronicOther nervous system disorders (20 sources)Carpal tunnel syndrome of right wrist; Translations: [Carpal tunnel syndrome, right upper limb]Onset: 658577-71-8382VdgohdeJbtme nervous system disorders (20 sources)Bilateral carpal tunnel syndrome; Translations: [Carpal tunnel syndrome, bilateral upper limbs]Onset: 472156-01-7058XwsiwjwRszhg non- traumatic joint disorders (2 sources)Pain in left elbow; Translations: [Pain in left elbow]Onset: 00-59-3724OukazkmtTrvey non-traumatic joint disorders (1 source)Pain in right elbowEpisodicOther nutritional; endocrine; and metabolic disorders (9 sources)Obesity; Translations: [Obesity, unspecified]59-77-1624HsdgqyqYqapr nutritional; endocrine; and metabolic disorders (1 source)Obesity, unspecified; Translations: [OBESITY UNSPECIFIED]Onset: 42-81-7605DsrxitaJbgco nutritional; endocrine; and metabolic disorders (20 sources)Obese class I; Translations: [Obesity, unspecified]Onset: 05-09-2022 Resolved: 928435-29-7290CwvamhfJjorr skin disorders (2 sources)Epidermal cyst; Translations: [EPIDERMAL CYST]Onset: 10-20-2022 EpisodicOther upper respiratory disease (20 sources)Seasonal allergy; Translations: [Other seasonal allergic rhinitis] Onset: 549902-89-7240QahsxqxEgujm upper respiratory disease (20 sources)Allergic rhinitis; Translations: [Allergic rhinitis, unspecified] Onset: 721291-95-6159QfirmkkIlsix upper respiratory disease (2 sources)Allergic disposition; Translations: [Other allergic rhinitis] 56-62-6894ZfvnomdFkxmmbmwdx and visceral atherosclerosis (20 sources)Peripheral vascular disease, unspecified; Translations: [Atherosclerosis of platinum arteries of extremities with rest pain, bilateral legs]Onset: 48-29-3203OxuejwrPgkwtdbxzzu; intervertebral disc disorders; other back problems (20 sources)Degeneration of cervical intervertebral disc; Translations: [Other cervical disc degeneration, unspecified cervical region]Onset: 11-29-2023 28-97-2268XmajyhrEodtmreow-related disorders (20 sources)Nicotine dependence, cigarettes, uncomplicated; Translations: [Cigarette smoker ]Onset: 607684-38-2022DsrkguwEoqghyhbpedm (7 sources)Peripheral arterial cjabosy90-83-5361Vmmfpucunkev (3 sources)Sebaceous cyst of uphv15-86-1098Uxwesjkangqm (1 source)CONTACT W/AND (SUSP) EXPOS COVID-19; Translations: [CONTACT W/AND (SUSP) EXPOS COVID-19]Onset: 79-33-1236Icruplqxczqw (1 source)Encounter for preprocedural laboratory examination; Translations: [Encounter for preprocedural laboratory examination]Onset: 12-20-2023 Unclassified (1 source)Pain in right elbow; Translations: [Pain in right elbow]Onset: 94-50-8145Qyobolbybzjv (1 source)New PatientOnset: 40-75-7941Ikxqbhcpdwqq (1 source)Cardiac Valve ProblemOnset: 03-66-1051Lrubhzmfxbbt (1 source)Dental InquiryOnset: 04-21-2025 Past or Other Problems Problem ClassificationProblemDateDocumented DateEpisodic/ChronicAbdominal pain (20 sources)Unspecified abdominal pain; Translations: [Generalized abdominal pain]Onset: 58-97-4781HtfzflprRmktd posthemorrhagic anemia (3 sources)Acute posthemorrhagic anemia; Translations: [ACUTE POSTHEMORRHAGIC ANEMIA]Onset: 84-51-1500GwtjkjzmTjbkbib dysrhythmias (20 sources)Bradycardia; Translations: [Bradycardia, unspecified]Onset: 436089-63-3620ZtsbmpdkMmilsiodcp and other anemia (20 sources)Iron deficiency anemia; Translations: [Iron deficiency anemia, unspecified]Onset: 948489-39-0070AbrqyjhoFnzkcwlh of mouth; excluding dental (20 sources)Oropharyngeal lesion; Translations: [Other lesions of oral mucosa] Onset: 186188-55-9861EpcxqsldVmngrfown and duodenitis (20 sources)Acute gastritis; Translations: [Acute gastritis without bleeding] Onset: 438976-42-0610MlsaxmmoVaipzbwzfivamu ulcer (except hemorrhage) (9 sources)Acute gastric ulcer without hemorrhage AND without perforation; Translations: [Acute gastric ulcer without hemorrhage or perforation]Onset: 728641-12-7879FsusoimaFxdxsugydtqol symptoms and ill-defined conditions (20 sources)Retention of urine; Translations: [Retention of urine, unspecified] Onset: 194099-30-0771TsjgzrznFdmyx valve disorders (20 sources)Heart murmur; Translations: [Cardiac murmur, unspecified]Onset: 944396-40-5852LhggontiHpbbqeavvlbr; infection of eye (except that caused by tuberculosis or sexually transmitteddisease) (20 sources)Conjunctivitis; Translations: [Unspecified conjunctivitis]Onset: 03-09-2023 Resolved: 357844-94-1704StgrhuraAyeq disorders (20 sources)Mood disordersOnset: 02-27-2024 Resolved: Nausea and vomiting (1 source)Nausea with vomiting, unspecified; Translations: [NAUSEA WITH VOMITING UNSPECIFIED]Onset: 95-50-7483DlvdycgkHtidmavcjgr chest pain (1 source)Chest pain, unspecified; Translations: [CHEST PAIN UNSPECIFIED]Onset: 69-41-8858HiuresgzHxttsxlprhj deficiencies (20 sources)Cobalamin deficiency; Translations: [Deficiency of other specified B group vitamins]Onset: 872244-45-0921OzbdzwrxDcrdz aftercare (1 source)jail (current) use of aspirin; Translations: [CONTROL PANEL TESTER CURRENT USE OF ASPIRIN]Onset: 72-54-8116JperjgwbAxeqc aftercare (1 source)Other marine oil terminal superintendent (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) drug therapy; Translations: [OTH HALFWAY CURRENT DRUG THERAPY]Onset: 20-36-5134NthwyybxWrktp aftercare (1 source)intermediate designer (current) use of 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latelets; Translations: [CONTROL PANEL TESTER ANTITHROMBOT/ANTIPLATLETS]Onset: 88-65-5940Asvbfqgh Other aftercare (1 source)jail (current) use of oral hypoglycemic drugs; Translations: [HALFWAY USE ORAL HYPOGLYCEMIC DX]Onset: 00-60-4188NkhxdtgkNjler circulatory disease (1 source)Orthostatic hypotension; Translations: [ORTHOSTATIC HYPOTENSION]Onset: 39-66-4511OggkgvpxCgjcg circulatory disease (20 sources)Carotid bruit; Translations: [Other specified symptoms and signs involving the circulatory and respiratory systems]Onset: 821412-85-3641 EpisodicOther circulatory disease (20 sources)Hemorrhage, not elsewhere classified; Translations: [Hemorrhage, unspecified]Onset: 472009-37-7383WyemjfgdBipqm connective tissue disease (7 sources)Synovial cyst of right popliteal space; Translations: [Synovial cyst of popliteal space [Jones], right knee]Onset: 444540-44-4430JgvjjursDkhzu connective tissue disease (20 sources)Bursitis of olecranon of right elbow; Translations: [Olecranon bursitis, right elbow]Onset: 000221-58-9089NiuinpgpEsfau connective tissue disease (20 sources)Bursitis of olecranon of left elbow; Translations: [Olecranon bursitis, left elbow]Onset: 739870-95-7096AcekvgjtPgyem connective tissue disease (20 sources)Synovial cyst of popliteal space [Jones], right knee; Translations: [Synovial cyst of popliteal space]Onset: 531047-98-1734LjfkdhfqAkiei ear and sense organ disorders (20 sources)Tinnitus; Translations: [Tinnitus, unspecified ear]Onset: 06-09-2022 26-25-9741QbzzkwjqEuecp ear and sense organ disorders (20 sources)Tinnitus of right ear; Translations: [Tinnitus, right ear]Onset: 715576-04-7494FltralkbUipnn gastrointestinal disorders (2 sources)Constipation, unspecified; Translations: [CONSTIPATION UNSPECIFIED] Onset: 16-96-5536MhqoqmnfEthfl nervous system disorders (20 sources)Peripheral nerve disease ; Translations: [Polyneuropathy, unspecified]Onset: 11-29-2023 Resolved: 250077-61-4218HysyaqcUodmy nervous system disorders (20 sources)Mucosal anosmia; Translations: [Anosmia]Onset: EpisodicOther nervous system disorders (20 sources)Loss of taste; Translations: [Parageusia]Onset: EpisodicOther nervous system disorders (20 sources)Sense of smell altered; Translations: [Unspecified disturbances of smell and taste]Onset: 755617-80-4814FkivmqgaYvslo non-traumatic joint disorders (1 source)Pain in right knee; Translations: [Acute pain of right knee M25.561] Onset: 07-29-2021 Resolved: 19-12-0935KwocxtltBnqrn non-traumatic joint disorders (1 source)Effusion, right knee; Translations: [Swelling of right knee joint M25.461]Onset: 07-29-2021 Resolved: 95-83-3977YlyquqnyRssho nutritional; endocrine; and metabolic disorders (20 sources)Overweight in adulthood with body mass index of 25 or more but less than 30; Translations: [Body mass index (BMI) 29.0-29.9, adult]Onset: 10-31-2023 Resolved: 855945-03-2182WjxjuejqBbhdp nutritional; endocrine; and metabolic disorders (1 source)Body mass index (BMI) 29.0-29.9, adult; Translations: [BODY MASS INDEX BMI 29.0-29.9 ADULT]Onset: 16-05-8323UjrgkkfjOzbmp nutritional; endocrine; and metabolic disorders (20 sources)Body mass index 25-29 - overweight; Translations: [Overweight]Onset: 211308-45-0180FldzfbcoDjuzt screening for suspected conditions (not mental disorders or infectious disease) (20 sources)Encounter for screening for malignant neoplasm of prostate; Translations: [Abnormal electrocardiogram [ECG] [EKG]]Onset: 04-28-2022 23-68-4787JwyvtdalNhuwh skin disorders (20 sources)Sebaceous cyst of skin; Translations: [Sebaceous cyst]Onset: 94-40-9280ShlsupfrGafbp skin disorders (3 sources)Sebaceous cyst; Translations: [SEBACEOUS CYST]Onset: 10-12-2022 EpisodicOther upper respiratory infections (20 sources)Acute sinusitis; Translations: [Other acute sinusitis]Onset: 910584-79-6178FjwvzfmxMjgzqodur; thrombophlebitis and thromboembolism (1 source)Acute embolism and thrombosis of other specified deep vein of right lower extremityOnset: 12-14-2021 Resolved: 12-96-5643FelorgogCuqmjuhaq (except that caused by tuberculosis or sexually transmitted disease) (20 sources)Pneumonia; Translations: [Pneumonia, unspecified organism]Onset: 03-14-2024 Resolved: 665779-05-3125GejkmztlHjwypxph codes; unclassified (20 sources)Tobacco user; Translations: [Tobacco use]Onset: EpisodicResidual codes; unclassified (1 source)Other specified postprocedural states; Translations: [OTH SPECIFIED POSTPROCEDURAL STATES]Onset: 87-03-4430LkfkwroyHsxn and subcutaneous tissue infections (1 source)Local infection of the skin and subcutaneous tissue, unspecified; Translations: [LOCAL INFECT SKIN SUBQ TISSUE UNS]Onset: 63-19-6588Vjunbpeo Spondylosis; intervertebral disc disorders; other back problems (20 sources)Lumbar radiculopathy; Translations: [Cervicalgia]Onset: 09-26-2022 08-74-4021AesqgfneEdndghtzyvbf (20 sources)Onset: 691492-87-9443Wwnzcbjlbrcr (1 source)Moderate aortic valve prmilcja15-34-4343 Results Test NameValueInterpretationReference RangeFacilityPOCT Protime / INRon 80-54-8970NDA Coag (PPP) [Relative time]2.1 {INR}Abnormal0.8 - 1.2PMercy Health Will[facility] SystemInterpretation and review of laboratory resultsAbnormalThedaCare Regional Medical Center[facility] SystemPOCT Protime / INRon 19-42-5092GMQ Coag (PPP) [Relative time]2.6 {INR}Abnormal0.8 - 1.2PMercy Health Willard Hospital System Interpretation and review of laboratory resultsAbnoMayo Clinic Health System– OakridgePOCT Protime / INRon 20-88-2888GHF Coag (PPP) [Relative time]1.8 {INR}Abnormal0.8 - 1.2PMercy Health Willard Hospital SystemInterpretation and review of laboratory resultsAbnoAurora [facility]Care [facility] SystemPOCT Protime / INRon 69-02-8447NTF Coag (PPP) [Relative time]1.5 {INR}Abnormal0.8 - 1.2PMercy Health Willard Hospital SystemInterpretation and review of laboratory results AbnormalKensington HospitalHbA1c HPLC (Bld) [Mass fraction]Ordered By: Tonya Dye on 72-62-0224JiQ9r (Bld) [Mass fraction]8.2 % [facility] AdministrationPOCT Protime / INRon 60-80-7851GKC Coag (PPP) [Relative time]1.3 {INR}Abnormal0.8 - 1.2PMercy Health Willard Hospital SystemInterpretation and review of laboratory resultsAbnoAurora BayCare Medical Center SystemPOCT Protime / INRon 78-83-1926AXK Coag (PPP) [Relative time]1.1 {INR}0.8 - 1.2PFroedtert [facility] [place] SystemPROTIME AND INRon 06-30-2025 INR1.1Dnlxkc4.9-1.2PSelect Medical Specialty Hospital - TrumbullComment on above:Performed By: #### PINR #### [facility]ENTEREDICVAL[facility] ([address] [place] [address] VIRPT Coag (PPP) [Time]11.7 sNormal9.8-13.2PSky Ridge Medical Center HospitalComment on above:Performed By: #### PINR #### [facility] ([address] [place] [address] VIRPROTIME AND INRon 77-33-4702TJB3.2High0.9-1.2PSky Ridge Medical Center HospitalComment on above:Performed By: #### PINR #### [facility] ([address] [place] [address] VIRPT Coag (PPP) [Time]36.2 sHigh9.8-13.2PSelect Medical Specialty Hospital - TrumbullComment on above:Performed By: #### PINR #### [facility] ([address] [place] [address] VIRBASIC METABOLIC PANELon 93-02-5719Wvfsp gap [Moles/Vol]7 mmol/LNormal5-15ProNexus Children'S Hospital HoustonComment on above:Performed By: #### BMP #### [facility] ([address] [place] [address] VIRCalcium [Mass/Vol]9.2 mg/dLNormal8.5-10.5PSelect Medical Specialty Hospital - TrumbullComment on above:Performed By: #### BMP #### [facility] ([address] [place] [address] VIRChloride [Moles/Vol]100 mmol/YSyyhqx41-741TowQgwfsnNexus Children'S Hospital HoustonComment on above:Performed By: #### BMP #### [facility] ([address] [place] [address] VIRCO2 [Moles/Vol]28 mmol/GGjweep58-45NtcAapbgmSelect Medical Specialty Hospital - TrumbullComment on above:Performed By: #### BMP #### [facility]) [address] [place] [address] VIRCreatinine [Mass/Vol]0.74 mg/dLNormal0.70-1.20ProNexus Children'S Hospital HoustonComment on above:Result Comment: METHOD TRACEABLE TO IDMS STANDARDPerformed By: #### BMP #### [facility] ([address] [place] [address] VIREGFR (CKD-EPI) NON-RACE DEPENDENT>^90Normal>=60ProNexus Children'S Hospital HoustonComment on above:Result Comment: eGFR not reported due to non- numeric value for Creatinine. Reported eGFR is based on the CKD-EPI 2020 equation that does not use a race coefficient.Performed By: #### BMP #### [facility] ([address] [place] [address] VIRGlucose [Mass/Vol]160 mg/eOHnly37-12XiiYllzreNexus Children'S Hospital HoustonComment on above:Performed By: #### BMP #### [facility] ([address] [place] [address] VIRPotassium [Moles/Vol]4.7 mmol/LNormal3.5-5.0ProNexus Children'S Hospital HoustonComment on above:Performed By: #### BMP #### [address] [place] [address] VIRSodium [Moles/Vol]135 mmol/OGturpb954-362MyjHkpgrj [facility] HospitalComment on above:Performed By: #### BMP #### [address] [place] [address] VIRUrea nitrogen [Mass/Vol]19 mg/dLNormal5-27ProNexus Children'S Hospital HoustonComment on above:Performed By: #### BMP #### [address] [address] VIRPROTIME AND INRon 12-68-4393OLQ6.5High0.9-1.2PSelect Medical Specialty Hospital - TrumbullComment on above:Performed By: #### PINR #### [facility] ([facility]) [address] [place] [address]. [place] [address] VIRPT Coag (PPP) [Time]29.0 sHigh9.8-13.2PSelect Medical Specialty Hospital - TrumbullComment on above:Performed By: #### PINR #### [facility] ([address] [address] VIRBASIC METABOLIC PANELon 40-33-3470Ykfms gap [Moles/Vol]5 mmol/LNormal5-15ProMckitrick HospitalComment on above:Performed By: #### HA1C #### [facility] ([facility]) [address] [place] [address] VIRCalcium [Mass/Vol]8.4 mg/dLLow8.5-10.5PBlanchard Valley Health SystemComment on above:Performed By: #### HA1C #### [facility] ([facility]) [address] [place] [address] VIRChloride [Moles/Vol]102 mmol/HUumpji13-094JbcFwzrse [place]edo HospitalComment on above:Performed By: #### HA1C #### [facility] ([facility]) [address] [place] [address] VIRCO2 [Moles/Vol]30 mmol/BRdtqrx83-84OopSynkksBlanchard Valley Health System Comment on above:Performed By: #### HA1C #### [facility] [facility] ([facility]) [address] [place] [address] VIRCreatinine [Mass/Vol]0.50 mg/dLLow0.60-1.30ProMckitrick HospitalComment on above:Result Comment: METHOD TRACEABLE TO IDMS STANDARD Performed By: #### HA1C #### [facility] ([facility]) [address] [place] [address] VIREGFR (CKD-EPI) NON-RACE DEPENDENT>^90Normal>=60Pro[facility] HospitalComment on above:Result Comment: Reported eGFR is based on the CKD-EPI 2020 equation that does not use a race coefficient.Performed By: #### HA1C #### [facility] ([facility]) [address] [place] [address] VIRGlucose [Mass/Vol]140 mg/uZQees76-30GoeQjvgbu [place] HospitalComment on above:Performed By: #### HA1C #### [facility] ([facility]) [address] [place] [address] VIRPotassium [Moles/Vol]3.8 mmol/LNormal3.5-5.0ProC[facility] HospitalComment on above:Performed By: #### HA1C #### [facility] ([facility]) [address] [place] [address] VIRSodium [Moles/Vol]137 mmol/KBhmdio843-603UjcFbhhfj [place] HospitalComment on above:Performed By: #### HA1C #### [facility] ([facility]) [address] [place] [address] VIRUrea nitrogen [Mass/Vol]24 mg/dLNormal5-27ProC[facility] HospitalComment on above:Performed By: #### HA1C #### [facility] ([facility]) [address] [place] [address] VIRBEDSIDE GLUCOSEon 95-37-1198Bkccuik [Mass/Vol]148 mg/dLHigh 65-99ProC[facility] HospitalComment on above:Performed By: #### HA1C #### [facility] ([facility]) [address] [place] [address] VIRCBC (NO DIFF)on 16-63-6887Mchxecugujx distribution width (RBC) [Ratio]14.5 %Sjbmin75.5-15Pro[facility] HospitalComment on above: Performed By: #### HA1C #### [facility] ([facility]) [address] [place] [address] VIRHematocrit (Bld) [Volume fraction]33.4 %Xtz30-86OglRakthl [facility] HospitalComment on above:Performed By: #### HA1C #### [facility] ([facility]) [address] [place] [address] VIRHemoglobin (Bld) [Mass/Vol]11.3 g/kJLqs33-44JzoFcyatv [facility] HospitalComment on above:Performed By: #### HA1C #### [facility] ([facility]) [address] [place] [address] VIRMCH (RBC) [Entitic mass]31.1 phOucvea66-50ZxlUwrlvm [facility] HospitalComment on above:Performed By: #### HA1C #### [facility] ([facility]) [address] [place] [address] VIRMCHC (RBC) [Mass/Vol]33.7 g/sKFpwvra39-58IofOepiab [facility] HospitalComment on above:Performed By: #### HA1C #### [facility] ([facility]) [address] [place] [address] VIRMCV (RBC) [Entitic vol]92 hBLrkkku29-579IioHfxegu [facility] HospitalComment on above:Performed By: #### HA1C #### [facility] ([facility]) [address] [place] [address] VIRPlatelet mean volume (Bld) [Entitic vol]8.6 fLNormal7-12 [facility] HospitalComment on above:Performed By: #### HA1C #### [facility] ([facility]) [address] [place] [address] VIRPlatelets (Bld) [#/Vol]107 10*3/vEGyh640-842IhdLnhvdx [facility] HospitalComment on above:Performed By: #### HA1C #### [facility] ([facility]) [address] [place] [address] VIRRBC COUNT3.62 X10E12/LLow4.1-5.7ProAs[facility]erca [facility] Comment on above:Performed By: #### RADHA #### [facility] ([facility]) [address] [place] [address] VIRWBC (Bld) [#/Vol]6.6 10*3/uLNormal4-11Pro[facility] HospitalComment on above:Performed By: #### ANNEMARIE1C #### [facility] ([facility]) [address] [place] [address] VIRPROTIME AND INRon 45-83-8538YAT0.0High0.9-1.2ProMedPremier Health HospitalComment on above:Performed By: #### RADHA #### [facility] ([facility]) [address] [place] [address] VIRPT Coag (PPP) [Time]23.3 sHigh9.8-13.2PBlanchard Valley Health System HospitalComment on above:Performed By: #### ANNEMARIE1C #### [facility] ([facility]) [address] [place] [address] VIRBASIC METABOLIC PANELon 53-58-7123Plfmm gap [Moles/Vol]5 mmol/LNormal5-15[facility] HospitalComment on above:Performed By: #### PINR #### [facility] ([facility]) [address] [place] [address] VIRCalcium [Mass/Vol]8.5 mg/dLNormal8.5-10.5PBlanchard Valley Health System HospitalComment on above:Performed By: #### PINR #### [facility] ([facility]) [address] [place] [address] VIRChloride [Moles/Vol]104 mmol/BOafnvn71-347XbcGmqgbo [place] HospitalComment on above:Performed By: #### PINR #### [facility] ([facility]) [address] [place] [address] VIRCO2 [Moles/Vol]29 mmol/KAcqasp92-51SvbVbrbzd [facility] Comment on above:Performed By: #### PINR #### [facility] ([facility]) [address] [place] [address] VIRCreatinine [Mass/Vol]0.55 mg/dLLow0.60-1.30ProMckitrick HospitalComment on above:Result Comment: METHOD TRACEABLE TO IDMS STANDARD Performed By: #### PINR #### [facility] ([facility]) [address] [place] [address] VIREGFR (CKD-EPI) NON-RACE DEPENDENT>^90Normal>=60ProMckitrick HospitalComment on above:Result Comment: Reported eGFR is based on the CKD-EPI 2020 equation that does not use a race coefficient.Performed By: #### PINR #### [facility] ([facility]) [address] [place] [address] VIRGlucose [Mass/Vol]162 mg/nIAvxp80-64CpsTrabzt [place] HospitalComment on above:Performed By: #### PINR #### [facility] ([facility]) [address] [place] [address] VIRPotassium [Moles/Vol]3.7 mmol/LNormal3.5-5.0ProMckitrick HospitalComment on above:Performed By: #### PINR #### [facility] ([facility]) [address] [place] [address] VIRSodium [Moles/Vol]138 mmol/DNazhec132-204CljIczoxg [place] HospitalComment on above:Performed By: #### PINR #### [facility] ([facility]) [address] [place] [address] VIRUrea nitrogen [Mass/Vol]28 mg/dLHigh5-27[facility] HospitalComment on above:Performed By: #### PINR #### [facility] ([facility]) [address] [place] [address] VIRBEDSIDE GLUCOSEon 03-48-0340Osipfta [Mass/Vol]188 mg/dLHigh 65-99[facility] HospitalComment on above:Performed By: #### HA1C #### [facility] ([facility]) [address] [place] [address] VIRGlucose [Mass/Vol]237 mg/fDNlfp35-88BxcCzhscd [facility] HospitalComment on above:Performed By: #### HA1C #### [facility] ([facility]) [address] [place] [address] VIRGlucose [Mass/Vol]254 mg/bTSloy34-71FhwAfzunn [facility] HospitalComment on above:Performed By: #### HA1C #### [facility] ([facility]) [address] [place] [address] VIRGlucose [Mass/Vol]236 mg/kVGqxw90-53SjxBcgikz [facility] HospitalComment on above:Performed By: #### HA1C #### [facility] ([facility]) [address] [place] [address] VIRGlucose [Mass/Vol]168 mg/fNJinz45-43VawOxbatt [facility] HospitalComment on above:Performed By: #### PINR #### [facility] ([facility]) [address] [place] [address] VIRCBC (NO DIFF)on 81-62-1783Qwyccjgyacp distribution width (RBC) [Ratio]14.7 %Dliyvc98.5-15[facility] HospitalComment on above: Performed By: #### PINR #### [facility] ([facility]) [address] [place] [address] VIRHematocrit (Bld) [Volume fraction]35.1 %Fsq85-70CqtCbizav [facility] HospitalComment on above:Performed By: #### PINR #### [facility] ([facility]) [address] [place] [address] VIRHemoglobin (Bld) [Mass/Vol]11.9 g/kXUjk90-89MqbYewhmu [facility] HospitalComment on above:Performed By: #### PINR #### [facility] ([facility]) [address] [place] [address] VIRMCH (RBC) [Entitic mass]31.3 cmHxjrtt59-10SfsHdebpf [facility] HospitalComment on above:Performed By: #### PINR #### [facility] ([facility]) [address] [place] [address] VIRMCHC (RBC) [Mass/Vol]34.0 g/uEEvfrpw43-43OysMqpscd [facility] HospitalComment on above:Performed By: #### PINR #### [facility] ([facility]) [address] [place] [address] VIRMCV (RBC) [Entitic vol]92 oBKizski69-054KmqPcusrt [facility] [place] HospitalComment on above:Performed By: #### PINR #### [facility] ([facility]) [address] [place] [address] VIRPlatelet mean volume (Bld) [Entitic vol]8.4 fLNormal7-12 [facility] HospitalComment on above:Performed By: #### PINR #### [facility] ([facility]) [address] [place] [address] VIRPlatelets (Bld) [#/Vol]94 10*3/fBTkh214-778UyvVvlzro [facility] HospitalComment on above:Performed By: #### PINR #### [facility] ([facility]) [address] [place] [address] VIRRBC COUNT3.82 X10E12/LLow4.1-5.7[facility] Comment on above:Performed By: #### PINR #### [facility] ([facility]) [address] [place] [address] VIRWBC (Bld) [#/Vol]9.7 10*3/uLNormal4-11[facility] HospitalComment on above:Performed By: #### PINR #### [facility] ([facility]) [address] [place] [address] VIRMAGNESIUMon 49-45-8826Ntkcmmuex [Mass/Vol]2.2 mg/dLNormal 1.8-2.6Pro[facility] HospitalComment on above:Performed By: #### PINR #### [facility] ([facility]) [address] [place] [address] VIRPOTASSIUMon 93-88-6813Hhkyburkj [Moles/Vol]4.1 mmol/LNormal 3.5-5.0Pro[facility] HospitalComment on above:Performed By: #### HA1C #### [facility] ([facility]) [address] [place] [address] VIRPROTIME AND INRon 74-05-6220QLZ0.4Xsnotq2.9-1.2PBlanchard Valley Health System HospitalComment on above:Performed By: #### PINR #### [facility] ([facility]) [address] [place] [address] VIRPT Coag (PPP) [Time]12.8 sNormal9.8-13.2PBlanchard Valley Health System HospitalComment on above:Performed By: #### PINR #### [facility] ([facility]) [address] [place] [address] VIRXR CHEST 1 VWon 62-25-1955TO CHEST 1 VWXR CHEST 1 VW XR CHEST 1 VW: 06/16/2025 5:06 AM Clinical: Chest tube removal Upright portable chest is compared with 06/15/2025. Stable right central line. No pneumothorax. IMPRESSION: * Continued mostly linear lower lobe infiltrates with probable right pleural effusion. * No pneumothorax. Finalized by Avery Velez MD on 06/16/2025 8:20 AMNormalTriHealth Good Samaritan Hospital BASIC METABOLIC PANELon 23-23-5583Mkmga gap [Moles/Vol]4 mmol/LLow5-15[facility] HospitalComment on above:Performed By: #### TSC #### [facility] ([facility]) [address] [place] [address] VIRCalcium [Mass/Vol]8.5 mg/dLNormal8.5-10.5PBlanchard Valley Health SystemComment on above:Performed By: #### TSC #### [facility] ([facility]) [address] [place] [address] VIRChloride [Moles/Vol]106 mmol/OXezapn24-905WefHsioec [place] HospitalComment on above:Performed By: #### TSC #### [facility] ([facility]) [address] [place] [address] VIRCO2 [Moles/Vol]28 mmol/YRwkayd06-43JcuRjjajlBlanchard Valley Health System Comment on above:Performed By: #### TSC #### [facility] ([facility]) [address] [place] [address] VIRCreatinine [Mass/Vol]0.56 mg/dLLow0.60-1.30[facility] HospitalComment on above:Result Comment: METHOD TRACEABLE TO IDMS STANDARD Performed By: #### TSC #### [facility] ([facility]) [address] [place] [address] VIREGFR (CKD-EPI) NON-RACE DEPENDENT>^90Normal>=60ProMckitrick HospitalComment on above:Result Comment: Reported eGFR is based on the CKD-EPI 2020 equation that does not use a race coefficient.Performed By: #### TSC #### [facility] ([facility]) [address] [place] [address] VIRGlucose [Mass/Vol]133 mg/vLXhpq18-42WekFhassn [facility] HospitalComment on above:Performed By: #### TSC #### [facility] ([facility]) [address] [place] [address] VIRPotassium [Moles/Vol]4.4 mmol/LNormal3.5-5.0[facility] HospitalComment on above:Performed By: #### TSC #### [facility] ([facility]) [address] [place] [address] VIRSodium [Moles/Vol]138 mmol/ILgqwtg190-994UmqQbfdjl [facility] HospitalComment on above:Performed By: #### TSC #### [facility] ([facility]) [address] [place] [address] VIRUrea nitrogen [Mass/Vol]24 mg/dLNormal5-27[facility] HospitalComment on above:Performed By: #### TSC #### [facility] ([facility]) [address] [place] [address] VIRBEDSIDE GLUCOSEon 98-52-2686Jysxeyt [Mass/Vol]270 mg/dLHigh 65-99[facility] HospitalComment on above:Performed By: #### PINR #### [facility] ([facility]) [address] [place] [address] VIRGlucose [Mass/Vol]199 mg/rBCkgd67-39MypEycrns [facility] HospitalComment on above:Performed By: #### PINR #### [facility] ([facility]) [address] [place] [address] VIRGlucose [Mass/Vol]224 mg/fUQssv40-04GwzTodnxo [facility] HospitalComment on above:Performed By: #### PINR #### [facility] ([facility]) [address] [place] [address] VIRGlucose [Mass/Vol]151 mg/qTPomr38-67BvqPfxmdr [facility] HospitalComment on above:Performed By: #### PINR #### [facility] ([facility]) [address] [place] [address] VIRCBC (NO DIFF)on 71-25-6819Ldmdxivoztb distribution width (RBC) [Ratio]14.8 %Sfppkw79.5-15[facility] HospitalComment on above: Performed By: #### TSC #### [facility] ([facility]) [address] [place] [address] VIRHematocrit (Bld) [Volume fraction]37.1 %Hfh13-64GvlItnvtn [facility] HospitalComment on above:Performed By: #### TSC #### [facility] ([facility]) [address] [place] [address] VIRHemoglobin (Bld) [Mass/Vol]12.6 g/jJTzh52-31UteRryxfw [facility] HospitalComment on above:Performed By: #### TSC #### [facility] ([facility]) [address] [place] [address] VIRMCH (RBC) [Entitic mass]31.0 dbGmvzky87-52WlfYhglgb [facility] HospitalComment on above:Performed By: #### TSC #### [facility] ([facility]) [address] [place] [address] VIRMCHC (RBC) [Mass/Vol]33.9 g/gIDjecej24-93IqzOhyzdt [facility] HospitalComment on above:Performed By: #### TSC #### [facility] ([facility]) [address] [place] [address] VIRMCV (RBC) [Entitic vol]92 eADrjpew25-780OpdHtcsfy [facility] HospitalComment on above:Performed By: #### TSC #### [facility] ([facility]) [address] [place] [address] VIRPlatelet mean volume (Bld) [Entitic vol]8.8 fLNormal7-12 [facility] HospitalComment on above:Performed By: #### TSC #### [facility] ([facility]) [address] [place] [address] VIRPlatelets (Bld) [#/Vol]99 10*3/aATay426-097IlbSescrzMckitrick HospitalComment on above:Performed By: #### TSC #### [facility] ([facility]) [address] [place] [address] VIRRBC COUNT4.05 X10E12/LLow4.1-5.7Pro[facility] Hospital Comment on above:Performed By: #### TSC #### [facility] ([facility]) [address] [place] [address] VIRWBC (Bld) [#/Vol]12.5 10*3/uLHigh4-11ProMckitrick HospitalComment on above:Performed By: #### TSC #### [facility] ([facility]) [address] [place] [address] VIRPROTIME AND INRon 33-97-3647PDJ6.6Abfely5.9-1.2PBlanchard Valley Health System HospitalComment on above:Performed By: #### TSC #### [facility] ([facility]) [address] [place] [address] VIRPT Coag (PPP) [Time]11.8 sNormal9.8-13.2PBlanchard Valley Health System HospitalComment on above:Performed By: #### TSC #### [facility] ([facility]) [address] [place] [address] VIRXR CHEST 1 VWon 12-13-8420VK CHEST 1 VWXR CHEST 1 VW CHEST 1 VIEW HISTORY: Status post CABG COMPARISON: 06/14/2025 IMPRESSION: * Interval removal of [place]-Jonathan catheter with right IJ vascular sheath. Interval removal of mediastinal drains. Stable left chest tube. * Moderate bibasilar atelectasis (left greater than right), slightly increased. * No pleural effusions or pneumothorax. Finalized by Manuel Carroll MD on 06/15/2025 10:28 AMNormalProMckitrick HospitalBASIC METABOLIC PANELon 99-13-4107Vntzf gap [Moles/Vol]8 mmol/LNormal 5-15[facility] HospitalComment on above:Performed By: #### CMP #### [facility] ([facility]) [address] [place] [address] VIRCalcium [Mass/Vol]8.1 mg/dLLow8.5-10.5PBlanchard Valley Health System HospitalComment on above:Performed By: #### CMP #### [facility] ([facility]) [address] [place] [address] VIRChloride [Moles/Vol]111 mmol/RPccs08-326MqrIeepza [place] HospitalComment on above:Performed By: #### CMP #### [facility] ([facility]) [address] [place] [address] VIRCO2 [Moles/Vol]23 mmol/LSugzfp67-49CcxYemfhsBlanchard Valley Health System Comment on above:Performed By: #### CMP #### [facility] ([facility]) [address] [place] [address] VIRCreatinine [Mass/Vol]0.46 mg/dLLow0.60-1.30ProMckitrick HospitalComment on above:Result Comment: METHOD TRACEABLE TO IDMS STANDARD Performed By: #### CMP #### [facility] ([facility]) [address] [place] [address] VIREGFR (CKD-EPI) NON-RACE DEPENDENT>^90Normal>=60ProC[facility] HospitalComment on above:Result Comment: Reported eGFR is based on the CKD-EPI 2020 equation that does not use a race coefficient.Performed By: #### CMP #### [facility] ([facility]) [address] [place] [address] VIRGlucose [Mass/Vol]130 mg/iWHtkh14-22EohNxfeld [place] HospitalComment on above:Performed By: #### CMP #### [facility] ([facility]) [address] [place] [address] VIRPotassium [Moles/Vol]4.0 mmol/LNormal3.5-5.0[facility] HospitalComment on above:Performed By: #### CMP #### [facility] ([facility]) [address] [place] [address] VIRSodium [Moles/Vol]142 mmol/WYrzssi881-973FniYrvamu Palmer HospitalComment on above:Performed By: #### CMP #### [facility] ([facility]) [address] [place] [address] VIRUrea nitrogen [Mass/Vol]19 mg/dLNormal5-27Pro[facility] HospitalComment on above:Performed By: #### CMP #### [facility] ([facility]) [address] [place] [address] VIRBEDSIDE GLUCOSEon 56-20-2122Hdtkfrg [Mass/Vol]213 mg/dLHigh 65-99Pro[facility] Palmer HospitalComment on above:Performed By: #### TSC #### [facility] ([facility]) [address] [place] [address] VIRGlucose [Mass/Vol]209 mg/xUOsoz25-17UanDkgtei Palmer HospitalComment on above:Performed By: #### TSC #### [facility] ([facility]) [address] [place] [address] VIRGlucose [Mass/Vol]223 mg/xSDxez23-57VuvMxjawt [facility] HospitalComment on above:Performed By: #### TSC #### [facility] ([facility]) [address] [place] [address] VIRGlucose [Mass/Vol]135 mg/hOShph79-63EjoHqtrhd Palmer HospitalComment on above:Performed By: #### TSC #### [facility] ([facility]) [address] [place] [address] VIRGlucose [Mass/Vol]114 mg/gNStif34-59JlbRzrxja Palmer HospitalComment on above:Performed By: #### TSC #### [facility] ([facility]) [address] [place] [address] VIRGlucose [Mass/Vol]116 mg/pKOykw23-35DmxVsjbzj Palmer HospitalComment on above:Performed By: #### CMP #### [facility] ([facility]) [address] [place] [address] VIRGlucose [Mass/Vol]112 mg/tEEizd11-72CasAxwhqd [facility] HospitalComment on above:Performed By: #### CMP #### [facility] ([facility]) [address] [place] [address] VIRGlucose [Mass/Vol]120 mg/sQCofa74-74NuyHtkdpa Palmer HospitalComment on above:Performed By: #### CMP #### [facility] ([facility]) [address] [place] [address] VIRGlucose [Mass/Vol]136 mg/jFUkas26-68QruSvtcsa Palmer HospitalComment on above:Performed By: #### UA #### [facility] ([facility]) [address] [place] [address] VIRGlucose [Mass/Vol]115 mg/bIOlta04-15FtaAidyhy Palmer HospitalComment on above:Performed By: #### UA #### [facility] ([facility]) [address] [place] [address] VIRCBC (NO DIFF)on 39-59-7582Ipuhonwsjyv distribution width (RBC) [Ratio]14.7 %Lyqetb59.5-15ProMedica Palmer HospitalComment on above: Performed By: #### CMP #### [facility] ([facility]) [address] [place] [address] VIRHematocrit (Bld) [Volume fraction]42.0 %Tvnxos67-68GqnTeolhs Palmer HospitalComment on above:Performed By: #### CMP #### [facility] ([facility]) [address] [place] [address] VIRHemoglobin (Bld) [Mass/Vol]14.2 g/yJPodjhz58-13RdbNgjqhl [facility] Park HospitalComment on above:Performed By: #### CMP #### [facility] ([facility]) [address] [place] [address] VIRMCH (RBC) [Entitic mass]31.2 wvUbprdv28-97WfdDzacyi [facility] Park HospitalComment on above:Performed By: #### CMP #### [facility] ([facility]) [address] [place] [address] VIRMCHC (RBC) [Mass/Vol]33.8 g/zKJtuvds08-42PqsPrrncp Palmer HospitalComment on above:Performed By: #### CMP #### [facility] ([facility]) [address] [place] [address] VIRMCV (RBC) [Entitic vol]92 dFZpdwpf93-268BwhHgbsbm [facility] Park HospitalComment on above:Performed By: #### CMP #### [facility] ([facility]) [address] [place] [address] VIRPlatelet mean volume (Bld) [Entitic vol]8.6 fLNormal7-12 [facility] HospitalComment on above:Performed By: #### CMP #### [facility] ([facility]) [address] [place] [address] VIRPlatelets (Bld) [#/Vol]109 10*3/qJUgp565-579VmkVycsem [facility] HospitalComment on above:Performed By: #### CMP #### [facility] ([facility]) [address] [place] [address] VIRRBC COUNT4.55 X10E12/LNormal4.1-5.7[facility] Comment on above:Performed By: #### CMP #### [facility] ([facility]) [address] [place] [address] VIRWBC (Bld) [#/Vol]10.2 10*3/uLNormal4-11ProMckitrick HospitalComment on above:Performed By: #### CMP #### [facility] ([facility]) [address] [place] [address] VIRIONIZED CALCIUMon 42-87-7224NOWDMYG CALCIUM - ICAN4.6 mg/dL Normal4.5-5.3PBlanchard Valley Health System HospitalComment on above:Performed By: #### CMP #### [facility] ([facility]) [address] [place] [address] VIRIONIZED MAGNESIUMon 06-31-0887Vvbskabjy [Moles/Vol]0.66 mmol/LNormal0.45-0.74ProC[facility] Clinic Union Hospital HospitalComment on above:Performed By: #### CMP #### [facility] ([facility]) [address] [place] [address] VIRPHOSPHORUSon 95-33-8264Tkkpwhekx [Mass/Vol]3.2 mg/dLNormal 2.4-4.9ProMckitrick HospitalComment on above:Performed By: #### CMP #### [facility] ([facility]) [address] [place] [address] VIRPROTIME AND INRon 96-97-5139IRA6.8Xthssl7.9-1.2PBlanchard Valley Health System HospitalComment on above:Performed By: #### CMP #### [facility] ([facility]) [address] [place] [address] VIRPT Coag (PPP) [Time]11.7 sNormal9.8-13.2PBlanchard Valley Health System HospitalComment on above:Performed By: #### CMP #### [facility] ([facility]) [address] [place] [address] VIRXR CHEST 1 VWon 84-14-4700KM CHEST 1 VWXR CHEST 1 VW HISTORY: [...] by Rogelio Chapman MD on 06/14/2025 5:38 AMNormalProUniversity Hospitals [facility] 28-26-2493vUJS Coag (Bld) [Time]32 xEkaluq20-20CgiDevdze [facility] Park HospitalComment on above:Performed By: #### CBC #### [facility] ([facility]) [address] [place] [address] VIRBEDSIDE GLUCOSEon 60-75-2199Qirzuyo [Mass/Vol]166 mg/dLHigh 65-99Pro[facility] HospitalComment on above:Performed By: #### UA #### [facility] ([facility]) [address] [place] [address] VIRGlucose [Mass/Vol]175 mg/jTPkcy17-52YqiCwjsgi [facility] Park HospitalComment on above:Performed By: #### UA #### [facility] ([facility]) [address] [place] [address] VIRGlucose [Mass/Vol]198 mg/vKUhwi52-98QphLoxuaq [facility] HospitalComment on above:Performed By: #### CBC #### [facility] ([facility]) [address] [place] [address] VIRGlucose [Mass/Vol]97 mg/pQPqwmcn87-50TnnSnknqt [facility] HospitalComment on above:Performed By: #### CBC #### [facility] ([facility]) [address] [place] [address] VIRGlucose [Mass/Vol]109 mg/zRXcru21-81FdnUlrkbj [facility] HospitalComment on above:Performed By: #### BEDG ####[facility] ([facility])[address] [place] [address] VIRBLOOD GAS, ARTERIALon 06-13-2025 BASE,DEFICIT-1.4 mmol/LLow0.0-2.0Pro[facility] Park HospitalComment on above: Performed By: #### ABG ####[facility] ([facility])[address] [place] [address] VIRBody fzudkuyfmgu70.6 [degF]Normal>=37Pro[facility] HospitalComment on above:Performed By: #### ABG ####[facility] ([facility])[address] [place] [address] VIRHCO3 (Bld) [Moles/Vol]25.1 mmol/L Oqqpvn82.0-26.0ProAshtabula County Medical Centerca [facility] Park HospitalComment on above:Performed By: #### ABG ####[facility] ([facility])[address] [place] [address] VIRINSP. O2 CONC.100.0 %NormalProAshtabula County Medical Centerca [facility] Park HospitalComment on above:Performed By: #### ABG ####[facility] ([facility])[address] [place] [address] VIROxygen saturation in Blood99.3 %Normal>90.0Pro[facility] HospitalComment on above:Performed By: #### ABG ####[facility] ([facility])[address] [place] [address] VIRPCO2 DUFPRFYV91.9 maSaCtgl22.0-45.0[facility] HospitalComment on above:Performed By: #### ABG ####[facility] ([facility])[address] [place] [address] VIRPH ARTERIAL7.113Duy9.350-7.450 [facility] HospitalComment on above:Performed By: #### ABG ####[facility] ([facility])[address] [place] [address] VIRPO2 KQUQWQDO669 qwKiTruh86-791AnvIbiacc [facility] Park HospitalComment on above:Performed By: #### ABG ####[facility] ([facility])[address] [place] [address] VIRPOC YANI'S TESTNormalProMedica National Park HospitalComment on above:Performed By: #### ABG ####[facility] ([facility])[address] [place] [address] VIR SAMPLE SITEA LINENormalProMedica National Park HospitalComment on above:Performed By: #### ABG ####[facility] ([facility])[address] [place] [address] VIRSAMPLE TYPEArterialNormalProMedica National Park HospitalComment on above:Performed By: #### ABG ####[facility] ([facility])[address] [place] [address] VIRBUNon 92-79-6827Chfo nitrogen [Mass/Vol]17 mg/dLNormal5-27ProAshtabula County Medical Centerca [facility] Park HospitalComment on above:Performed By: #### UA #### [facility] ([facility]) [address] [place] [address] VIRUrea nitrogen [Mass/Vol]13 mg/dLNormal5-27[facility] HospitalComment on above:Performed By: #### CBC #### [facility] ([facility]) [address] [place] [address] VIRCBC (NO DIFF)on 40-36-5306Toofesmeeqx distribution width (RBC) [Ratio]14.5 %Jkmfli94.5-15Pro[facility] HospitalComment on above: Performed By: #### CBC #### [facility] ([facility]) [address] [place] [address] VIRHematocrit (Bld) [Volume fraction]51.4 %Nvzx11-16JjeTbdndg [facility] Park HospitalComment on above:Performed By: #### CBC #### [facility] ([facility]) [address] [place] [address] VIRHemoglobin (Bld) [Mass/Vol]17.4 g/dTLysv71-57NivFtljou [facility] HospitalComment on above:Performed By: #### CBC #### [facility] ([facility]) [address] [place] [address] VIRMCH (RBC) [Entitic mass]31.4 ayZpbjmz42-23EjxJopyll [facility] HospitalComment on above:Performed By: #### CBC #### [facility] ([facility]) [address] [place] [address] VIRMCHC (RBC) [Mass/Vol]33.9 g/yDDylcke47-63AszUiwakr [facility] HospitalComment on above:Performed By: #### CBC #### [facility] ([facility]) [address] [place] [address] VIRMCV (RBC) [Entitic vol]93 gLBeqjek44-397HgfQiddlh [facility] HospitalComment on above:Performed By: #### CBC #### [facility] ([facility]) [address] [place] [address] VIRPlatelet mean volume (Bld) [Entitic vol]8.6 fLNormal7-12 [facility] HospitalComment on above:Performed By: #### CBC #### [facility] ([facility]) [address] [place] [address] VIRPlatelets (Bld) [#/Vol]177 10*3/vQVjfuds035-574RrnYzfvsp [facility] HospitalComment on above:Performed By: #### CBC #### [facility] ([facility]) [address] [place] [address] VIRRBC COUNT5.55 X10E12/LNormal4.1-5.7ProAshtabula County Medical Centerca [facility] Comment on above:Performed By: #### CBC #### [facility] ([facility]) [address] [place] [address] VIRWBC (Bld) [#/Vol]7.1 10*3/uLNormal4-11[facility] HospitalComment on above:Performed By: #### CBC #### [facility] ([facility]) [address] [place] [address] VIRCOMPREHENSIVE METABOLIC PANELon 78-44-4198Kyagklu [Mass/Vol] 4.2 g/dLNormal3.2-5.3[facility] HospitalComment on above:Performed By: #### CMP #### [facility] ([facility]) [address] [place] [address] VIRALP [Catalytic activity/Vol]77 U/QCrexmo23-321EbnAmrchl [facility] HospitalComment on above:Performed By: #### CMP #### [facility] ([facility]) [address] [place] [address] VIRALT [Catalytic activity/Vol]14 U/LNormal<=40ProAshtabula County Medical Centerca [facility] Park HospitalComment on above:Performed By: #### CMP #### [facility] ([facility]) [address] [place] [address] VIRAnion gap [Moles/Vol]8 mmol/LNormal5-15[facility] HospitalComment on above:Performed By: #### CMP #### [facility] ([facility]) [address] [place] [address] VIRAST [Catalytic activity/Vol]16 U/LNormal<=41[facility] HospitalComment on above:Performed By: #### CMP #### [facility] ([facility]) [address] [place] [address] VIRBilirubin [Mass/Vol]0.5 mg/dLNormal0.3-1.2PBlanchard Valley Health System HospitalComment on above:Performed By: #### CMP #### [facility] ([facility]) [address] [place] [address] VIRCalcium [Mass/Vol]8.9 mg/dLNormal8.5-10.5PBlanchard Valley Health System HospitalComment on above:Performed By: #### CMP #### [facility] ([facility]) [address] [place] [address] VIRChloride [Moles/Vol]102 mmol/UJkzpgf49-476XtmAoatbs [place] HospitalComment on above:Performed By: #### CMP #### [facility] ([facility]) [address] [place] [address] VIRCO2 [Moles/Vol]27 mmol/LLymcju68-05JovPkmpre [place] [facility] Comment on above:Performed By: #### CMP #### [facility] ([facility]) [address] [place] [address] VIRCreatinine [Mass/Vol]0.65 mg/dLNormal0.60-1.30ProC[facility] Clinic Union Hospital HospitalComment on above:Result Comment: METHOD TRACEABLE TO IDMS STANDARDPerformed By: #### CMP #### [facility] ([facility]) [address] [place] [address] VIREGFR (CKD-EPI) NON-RACE DEPENDENT>^90Normal>=60ProCleveland Clinic Union Hospital HospitalComment on above:Result Comment: Reported eGFR is based on the CKD-EPI 2021 equation that does not use a race coefficient.Performed By: #### CMP #### [facility] ([facility]) [address] [place] [address] VIRGlucose [Mass/Vol]169 mg/sRZrec20-31BpoYkizjo [place] HospitalComment on above:Performed By: #### CMP #### [facility] ([facility]) [address] [place] [address] VIRPotassium [Moles/Vol]4.3 mmol/LNormal3.5-5.0[facility] HospitalComment on above:Performed By: #### CMP #### [facility] ([facility]) [address] [place] [address] VIRProtein [Mass/Vol]7.1 g/dLNormal6.0-8.0ProAshtabula County Medical Centerca [facility] HospitalComment on above:Performed By: #### CMP #### [facility] ([facility]) [address] [place] [address] VIRSodium [Moles/Vol]137 mmol/KLrlyny516-538TjhJvgdsl [facility] HospitalComment on above:Performed By: #### CMP #### [facility] ([facility]) [address] [place] [address] VIRUrea nitrogen [Mass/Vol]14 mg/dLNormal5-27ProC[facility] Clinic [facility] Hospital HospitalComment on above:Performed By: #### CMP #### [facility] ([facility]) [address] [place] [address] VIRCREATININE, SERUMon 72-49-9077Zojmzkihyj [Mass/Vol]0.47 mg/dLLow0.60-1.30ProC[facility] Clinic Union Hospital HospitalComment on above:Result Comment: METHOD TRACEABLE TO IDMS STANDARDPerformed By: #### UA #### [facility] ([facility]) [address] [place] [address] VIREGFR (CKD-EPI) NON-RACE DEPENDENT>^90Normal>=60ProAshtabula County Medical Centerca [facility] HospitalComment on above:Result Comment: Reported eGFR is based on the CKD-EPI 2020 equation that does not use a race coefficient.Performed By: #### UA #### [facility] ([facility]) [address] [place] [address] VIRCreatinine [Mass/Vol]0.54 mg/dLLow0.60-1.30ProAshtabula County Medical Centerca [facility] HospitalComment on above:Result Comment: METHOD TRACEABLE TO IDMS STANDARD Performed By: #### CBC #### [facility] ([facility]) [address] [place] [address] VIREGFR (CKD-EPI) NON-RACE DEPENDENT>^90Normal>=60ProMckitrick HospitalComment on above:Result Comment: Reported eGFR is based on the CKD-EPI 2020 equation that does not use a race coefficient.Performed By: #### CBC #### [facility] ([facility]) [address] [place] [address] VIRHEMOGLOBIN A1Con 80-32-2025Gwvuyta [Mass/Vol]189 mg/dLNormal [facility] HospitalComment on above:Performed By: #### HA1C #### [facility] ([facility]) [address] [place] [address] XVCQkU6j (Bld) [Mass fraction]8.2 %High4.4-5.6ProMckitrick HospitalComment on above:Result Comment: ADA Guidelines Result HgbA1c Normal : less than 5.7 % Prediabetes : 5.7 % to 6.4 % Diabetes : > 6.4 % Use with caution in patients with abnormal hemoglobin variants as the half-life of red blood cells and in vivo glycation rates are affected.Performed By: #### HA1C #### [facility] ([facility]) [address] [place] [address] VIRHEMOGLOBIN AND HEMATOCRIT, BLOODon 95-02-8137Rmegtmoyel (Bld) [Volume fraction]42.6 %Nmwaey74-51GtiDurygqMckitrick HospitalComment on above:Performed By: #### UA #### [facility] ([facility]) [address] [place] [address] VIRHemoglobin (Bld) [Mass/Vol]14.3 g/eLUpbjel74-28YgpKonlww [place] HospitalComment on above:Performed By: #### UA #### [facility] ([facility]) [address] [place] [address] VIRHematocrit (Bld) [Volume fraction]39.3 %Nrphin85-26CgcXkhtco [place] HospitalComment on above:Performed By: #### CBC #### [facility] ([facility]) [address] [place] [address] VIRHemoglobin (Bld) [Mass/Vol]13.4 g/nXJywpwi35-93FuzGpzgnc [place] HospitalComment on above:Performed By: #### CBC #### [facility] ([facility]) [address] [place] [address] VIRIONIZED CALCIUMon 93-19-5629SRKAEHQ CALCIUM - ICAN4.6 mg/dL Normal4.5-5.3ProMedPremier Health HospitalComment on above:Performed By: #### UA #### [facility] ([facility]) [address] [place] [address] VIRIONIZED CALCIUM - ICAN5.1 mg/dLNormal4.5-5.3ProMedPremier Health HospitalComment on above:Performed By: #### CBC #### [facility] ([facility]) [address] [place] [address] VIRIONIZED MAGNESIUMon 56-91-6539Mcgguvkbw [Moles/Vol]0.67 mmol/LNormal0.45-0.74ProC[facility] HospitalComment on above:Performed By: #### UA #### [facility] ([facility]) [address] [place] [address] VIRMagnesium [Moles/Vol]0.84 mmol/LHigh0.45-0.74ProC[facility] HospitalComment on above:Performed By: #### CBC #### [facility] ([facility]) [address] [place] [address] VIRPLATELET COUNTon 05-47-6525Yapkitvx mean volume (Bld) [Entitic vol]8.2 fLNormal7-12[facility] HospitalComment on above:Performed By: #### PLTCT ####[facility] ([facility])[address] [facility] [address], [place] [address] VIRPlatelets (Bld) [#/Vol]100 10*3/cFDvn769-211JfvUpohru [facility] HospitalComment on above:Performed By: #### PLTCT ####[facility] ([facility])[address] [facility] [address], [place] [address] VIRPOCT ABG RAPID K GLU HHon 15-66-0287NGIT,EXCESS1.3 mmol/LNormal0.0-2.0ProAshtabula County Medical Centerca [facility] HospitalComment on above:Performed By: #### HRTN ####[facility] ([facility])[address] [place] [address] VIRBody vfppwvgqexc71.6 [degF]Normal>=37 [facility] HospitalComment on above:Performed By: #### HRTN ####[facility] ([facility])[address] [place] [address] VIRGlucose [Mass/Vol]155 mg/bANxnn37-54BgaLzccpj [facility] HospitalComment on above:Performed By: #### HRTN ####[facility] ([facility])[address] [place] [address] VIRHCO3 (Bld) [Moles/Vol]25.7 mmol/SPddcfm08.0-26.0ProC[facility] HospitalComment on above:Performed By: #### HRTN ####[facility] ([facility])[address] [place] [address] VIRHematocrit (Bld) [Volume fraction]37 %Tmw07-39LfhRhdqky [facility] HospitalComment on above:Performed By: #### HRTN ####[facility] ([facility])[address] [place] [address] VIR Hemoglobin (Bld) [Mass/Vol]12.1 g/dLLow13.0-17.0[facility] HospitalComment on above:Performed By: #### HRTN ####[facility] ([facility])[address] [place] [address] VIRINSP. O2 CONC.100.0 %NormalProMedica Palmer HospitalComment on above:Performed By: #### HRTN ####[facility] ([facility])[address] [place] [address] VIROxygen saturation in Blood99.8 % Normal>90.0[facility] HospitalComment on above:Performed By: #### HRTN ####[facility] ([facility])[address] [place] [address] VIRPCO2 SWOTSCEJ39.2 fsWdEiuzpm14.0-45.0Pro[facility] Palmer HospitalComment on above: Performed By: #### HRTN ####[facility] ([facility])[address] [place] [address] VIRPH ARTERIAL7.820Yfdqvq9.350-7.450ProMedica Palmer HospitalComment on above:Performed By: #### HRTN ####[facility] ([facility])[address] [place] [address] VIRPO2 [id number] [facility] Palmer HospitalComment on above:Performed By: #### HRTN ####[facility] ([facility])[address] [place] [address] VIRPOC YANI'S TEST NormalProMedica Palmer HospitalComment on above:Performed By: #### HRTN ####[facility] ([facility])[address] [place] [address] VIR Potassium [Moles/Vol]4.1 mmol/LNormal3.5-5.0ProMedica Palmer HospitalComment on above:Performed By: #### HRTN ####[facility] ([facility])[address] [place] [address] VIRSAMPLE SITEA LINENormalProMedica National Park HospitalComment on above:Performed By: #### HRTN ####[facility] ([facility])[address] [place] [address] VIRSAMPLE TYPEArterialNormalProAshtabula County Medical Centerca [facility] Hospital Comment on above:Performed By: #### HRTN ####[facility] ([facility])[address] [place] [address] VIRBASE,EXCESS0.7 mmol/LNormal0.0-2.0 ProMMemorial Hospital HospitalComment on above:Performed By: #### HRTN ####[facility] ([facility])[address] [place] [address] VIRBody temperature 98.6 [degF]Normal>=37ProAshtabula County Medical Centerca National Park HospitalComment on above:Performed By: #### HRTN ####[facility] ([facility])[address] [place] [address] VIRGlucose [Mass/Vol]163 mg/oFDiul67-99VpxRobzhd National Park HospitalComment on above:Performed By: #### HRTN ####[facility] [facility] ([facility])[address] [place] [address] VIRHCO3 (Bld) [Moles/Vol]25.4 mmol/HVxbpzh77.0-26.0 [facility] HospitalComment on above:Performed By: #### HRTN ####[facility] ([facility])[address] [place] [address] VIRHematocrit (Bld) [Volume fraction]36 %Rdm39-37HrdDodedm National Park HospitalComment on above:Performed By: #### HRTN ####[facility] ([facility])[address] [place] [address] VIRHemoglobin (Bld) [Mass/Vol]11.6 g/dLLow13.0-17.0ProAshtabula County Medical Centerca National Park HospitalComment on above:Performed By: #### HRTN ####[facility] ([facility])[address] [place] [address] VIRINSP. O2 CONC.100.0 %NormalProMedica National Park HospitalComment on above:Performed By: #### HRTN ####[facility] ([facility])[address] [place] [address] VIROxygen saturation in Blood 100.1 %Normal>90.0ProMed[facility] National Park HospitalComment on above:Performed By: #### HRTN ####[facility] ([facility])[address] [place] [address] VIR PCO2 KWMWRQTP24.3 pjKpHlvguc83.0-45.0[facility] Park HospitalComment on above: Performed By: #### HRTN ####[facility] ([facility])[address] [place] [address] VIRPH ARTERIAL7.008Cipkvz4.350-7.450[facility] Park HospitalComment on above:Performed By: #### HRTN ####[facility] ([facility])[address] [place] [address] VIRPO2 [id number] [id number] [facility] HospitalComment on above:Performed By: #### HRTN ####[facility] ([facility])[address] [place] [address] VIRPOC YANI'S TEST NormalProMedica National Park HospitalComment on above:Performed By: #### HRTN ####[facility] ([facility])[address] [place] [address] VIR Potassium [Moles/Vol]4.3 mmol/LNormal3.5-5.0[facility] Park HospitalComment on above:Performed By: #### HRTN ####[facility] ([facility])[address] [place] [address] VIRSAMPLE SITEA LINENormalProMedica National Park HospitalComment on above:Performed By: #### HRTN ####[facility] ([facility])[address] [facility] [place] [address] VIRSAMPLE TYPEArterialNormalProAshtabula County Medical Centerca [facility] Hospital Comment on above:Performed By: #### HRTN ####[facility] ([facility])[address] [facility] [place] [address] VIRBASE,EXCESS1.1 mmol/LNormal0.0-2.0 ProMcleburne community hospital and nursing homea National Park HospitalComment on above:Performed By: #### HRTN ####[facility] ([facility])[address] [facility] [place] [address] VIRBody temperature 98.6 [degF]Normal>=37ProAshtabula County Medical Centerca National Park HospitalComment on above:Performed By: #### HRTN ####[facility] ([facility])[address] [place] [address] VIRGlucose [Mass/Vol]159 mg/tQUawy77-54CohOdeejx National Park HospitalComment on above:Performed By: #### HRTN ####[facility] ([facility])[address] [place] [address] VIRHCO3 (Bld) [Moles/Vol]25.5 mmol/TKcvuml05.0-26.0 [facility] HospitalComment on above:Performed By: #### HRTN ####[facility] ([facility])[address] [facility] [place] [address] VIRHematocrit (Bld) [Volume fraction]37 %Jkr99-84MakSjpuvf National Park HospitalComment on above:Performed By: #### HRTN ####[facility] ([facility])[address] [facility] [place] [address] VIRHemoglobin (Bld) [Mass/Vol]11.9 g/dLLow13.0-17.0ProAshtabula County Medical Centerca National Park HospitalComment on above:Performed By: #### HRTN ####[facility] ([facility])[address] [place] [address] VIRINSP. O2 CONC.100.0 %NormalProMedica National Park HospitalComment on above:Performed By: #### HRTN ####[facility] ([facility])[address] [place] [address] VIROxygen saturation in Blood 100.1 %Normal>90.0[facility] Park HospitalComment on above:Performed By: #### HRTN ####[facility] ([facility])[address] [place] [address] VIR PCO2 MAJHSUOU71.7 swDqJrwplf70.0-45.0[facility] Park HospitalComment on above: Performed By: #### HRTN ####[facility] ([facility])[address] [place] [address] VIRPH ARTERIAL7.947Mmniiy5.350-7.450[facility] Park HospitalComment on above:Performed By: #### HRTN ####[facility] ([facility])[address] [place] [address] VIRPO2 [id number] [facility] HospitalComment on above:Performed By: #### HRTN ####[facility] ([facility])[address] [place] [address] VIRPOC YANI'S TEST NormalProMedica National Park HospitalComment on above:Performed By: #### HRTN ####[facility] ([facility])[address] [place] [address] VIR Potassium [Moles/Vol]4.1 mmol/LNormal3.5-5.0[facility] Park HospitalComment on above:Performed By: #### HRTN ####[facility] ([facility])[address] [place] [address] VIRSAMPLE SITEA LINENormalProMedica National Park HospitalComment on above:Performed By: #### HRTN ####[facility] ([facility])[address] [facility] [place] [place] [address] VIRSAMPLE TYPEArterialNormalProAshtabula County Medical Centerca [facility] Comment on above:Performed By: #### HRTN ####[facility] ([facility])[address] [facility] [address] VIRBASE,EXCESS0.8 mmol/LNormal0.0-2.0 [facility]MM[facility] HospitalComment on above:Performed By: #### HRTN ####[facility] ([facility])[address] [place] [address] VIRBody temperature 98.6 [degF]Normal>=37ProAshtabula County Medical Centerca National Park HospitalComment on above:Performed By: #### HRTN ####[facility] ([facility])[address] [place] [address] VIRGlucose [Mass/Vol]140 mg/zVPlpm72-88OrpLarqxm National Park HospitalComment on above:Performed By: #### HRTN ####[facility] ([facility])[address] [place] [address] VIRHCO3 (Bld) [Moles/Vol]24.6 mmol/DLopvng90.0-26.0 [facility] HospitalComment on above:Performed By: #### HRTN ####[facility] ([facility])[address] [place] [address] VIRHematocrit (Bld) [Volume fraction]35 %Pzb89-33ObxHrrtpa National Park HospitalComment on above:Performed By: #### HRTN ####[facility] ([facility])[address] [place] [address] VIRHemoglobin (Bld) [Mass/Vol]11.4 g/dLLow13.0-17.0ProAshtabula County Medical Centerca National Park HospitalComment on above:Performed By: #### HRTN ####[facility] ([facility])[address] [facility] [place] [address] VIRINSP. O2 CONC.100.0 %NormalProMckitrick HospitalComment on above:Performed By: #### HRTN ####[facility] ([facility])[address] [place] [address] VIROxygen saturation in Blood 100.2 %Normal>90.0ProMckitrick HospitalComment on above:Performed By: #### HRTN ####[facility] ([facility])[address] [place] [address] VIR PCO2 YWBQBEOV89.6 gbIhMwk22.0-45.0ProC[facility] HospitalComment on above: Performed By: #### HRTN ####[facility] ([facility])[address] [place] [address] VIRPH ARTERIAL7.883Ijda5.350-7.450Pro[facility]it[facility] Hospital Comment on above:Performed By: #### HRTN ####[facility] ([facility])[address] [place] [address] VIRPO2 [id number] [facility] HospitalComment on above:Performed By: #### HRTN ####[facility] ([facility])[address] [place] [address] VIRPOC YANI'S TEST NormalProMckitrick HospitalComment on above:Performed By: #### HRTN ####[facility] ([facility])[address] [place] [address] VIR Potassium [Moles/Vol]4.2 mmol/LNormal3.5-5.0ProMckitrick HospitalComment on above:Performed By: #### HRTN ####[facility] ([facility])[address] [place] [address] VIRSAMPLE SITEA LINENormalProCleveland Clinic Union Hospital HospitalComment on above:Performed By: #### HRTN ####[facility] ([facility])[address] [place] [address] VIRSAMPLE TYPEArterialNormalProMckitrick Hospital Comment on above:Performed By: #### HRTN ####[facility] ([facility])[address] [place] [address] VIRBASE,EXCESS0.9 mmol/LNormal0.0-2.0 [facility] HospitalComment on above:Performed By: #### HRTN ####[facility] ([facility])[address] [place] [address] VIRBody temperature 98.6 [degF]Normal>=37Pro[facility] HospitalComment on above:Performed By: #### HRTN ####[facility] ([facility])[address] [place] [address] VIRGlucose [Mass/Vol]134 mg/gXKcwe01-69TncSpuiwu National Park HospitalComment on above:Performed By: #### HRTN ####[facility] ([facility])[address] [place] [address] VIRHCO3 (Bld) [Moles/Vol]24.8 mmol/HEjfqym18.0-26.0 ProMcleburne community hospital and nursing homea National Park HospitalComment on above:Performed By: #### HRTN ####[facility] ([facility])[address] [place] [address] VIRHematocrit (Bld) [Volume fraction]34 %Lqj32-92CsdUranru National Park HospitalComment on above:Performed By: #### HRTN ####[facility] ([facility])[address] [place] [address] VIRHemoglobin (Bld) [Mass/Vol]11.2 g/dLLow13.0-17.0[facility] HospitalComment on above:Performed By: #### HRTN ####[facility] ([facility])[address] [place] [address] VIRINSP. O2 CONC.100.0 %NormalProMedica National Park HospitalComment on above:Performed By: #### HRTN ####[facility] ([facility])[address] [place] [address] VIROxygen saturation in Blood 100.2 %Normal>90.0[facility] HospitalComment on above:Performed By: #### HRTN ####[facility] ([facility])[address] [place] [address] VIR PCO2 IYROTWZX89.4 etJpLxuimu92.0-45.0[facility] HospitalComment on above: Performed By: #### HRTN ####[facility] ([facility])[address] [place] [address] VIRPH ARTERIAL7.731Bylp1.350-7.450ProMckitrick Hospital Comment on above:Performed By: #### HRTN ####[facility] ([facility])[address] [place] [address] VIRPO2 [id number] [id number] [facility] HospitalComment on above:Performed By: #### HRTN ####[facility] ([facility])[address] [place] [address] VIRPOC YANI'S TEST NormalProAshtabula County Medical Centerca Magruder HospitalComment on above:Performed By: #### HRTN ####[facility] ([facility])[address] [place] [address] VIR Potassium [Moles/Vol]4.4 mmol/LNormal3.5-5.0ProAshtabula County Medical Centerca Magruder HospitalComment on above:Performed By: #### HRTN ####[facility] ([facility])[address] [place] [address] VIRSAMPLE SITEA LINENormalProAshtabula County Medical Centerca National Park HospitalComment on above:Performed By: #### HRTN ####[facility] ([facility])[address] [place] [address] VIRSAMPLE TYPEArterialNormalProAshtabula County Medical Centerca [facility] Comment on above:Performed By: #### HRTN ####[facility] ([facility])[address] [place] [address] VIRPOCT ABG RAPID K GLU ICA HHon [id number],DEFICIT-0.8 mmol/LLow0.0-2.0[facility] Park HospitalComment on above:Performed By: #### [id number] ####[facility] ([facility])[address] [place] [address] VIRBody bfertntzvss68.6 [degF]Normal>=37Pro[facility] HospitalComment on above:Performed By: #### [id number] ####[facility] ([facility])[address] [place] [address] VIRGlucose [Mass/Vol]139 mg/lUMzmx04-51 [facility] HospitalComment on above:Performed By: #### [email or web address] ####[facility] ([facility])[address] [place] [address] VIRHCO3 (Bld) [Moles/Vol]24.6 mmol/BVjichc35.0-26.0ProAshtabula County Medical Centerca National Park HospitalComment on above: Performed By: #### [id number] ####[facility] ([facility])[address] [place] [address] VIRHematocrit (Bld) [Volume fraction]38 %Klc07-78WbyVapigu National Park HospitalComment on above:Performed By: #### [email or web address] ####[facility] ([facility])[address] [place] [address] VIRHemoglobin (Bld) [Mass/Vol]12.2 g/dLLow13.0-17.0[facility] HospitalComment on above: Performed By: #### [id number] ####[facility] ([facility])[address] [place] [address] VIRINSP. O2 CONC.100.0 %NormalProAshtabula County Medical Centerca [facility] Comment on above:Performed By: #### [id number] ####[facility] ([facility])[address] [place] [address] VIROxygen saturation in Ccous555.2 % Normal>90.0[facility] HospitalComment on above:Performed By: #### [id number] ####[facility] ([facility])[address] [place] [address] VIRPCO2 TGIHUSFY42.2 hgHrQvqbxc87.0-45.0[facility] HospitalComment on above: Performed By: #### [id number] ####[facility] ([facility])[address] [place] [address] VIRPH ARTERIAL7.088Vzfxbz3.350-7.450[facility] HospitalComment on above:Performed By: #### [id number] ####[facility] ([facility])[address] [place] [address] VIRPO2 [id number] [id number] [facility] HospitalComment on above:Performed By: #### [id number] ####[facility] ([facility])[address] [place] [address] VIRPOC YANI'S TEST NormalProMedica Palmer HospitalComment on above:Performed By: #### [id number] ####[facility] ([facility])[address] [place] [address] VIR PORTABLE ICA4.9 mg/dLNormal4.5-5.3Pro[facility] HospitalComment on above: Performed By: #### [id number] ####[facility] ([facility])[address] [place] [address] VIRPotassium [Moles/Vol]3.9 mmol/LNormal3.5-5.0[facility] HospitalComment on above:Performed By: #### [id number] ####[facility] ([facility])[address] [place] [address] VIRSAMPLE SITEA LINENormal [facility] HospitalComment on above:Performed By: #### [id number] ####[facility] ([facility])[address] [place] [address] VIRSAMPLE TYPE ArterialNormalProMedica Palmer HospitalComment on above:Performed By: #### [id number] ####[facility] ([facility])[address] [place] [address] VIR BASE,DEFICIT-1.3 mmol/LLow0.0-2.0[facility] HospitalComment on above: Performed By: #### [id number] #### [facility] ([facility]) [address] [place] [address] VIRBody swypqhhexff46.6 [degF]Normal>=37Pro[facility] HospitalComment on above:Performed By: #### [id number] #### [facility] ([facility]) [address] [place] [address] VIRGlucose [Mass/Vol]170 mg/zVSxfy83-35TowAiojep Palmer HospitalComment on above:Performed By: #### [id number] #### [facility] ([facility]) [address] [place] [address] VIRHCO3 (Bld) [Moles/Vol]24.4 mmol/GThypqc33.0-26.0[facility] HospitalComment on above:Performed By: #### [id number] #### [facility] ([facility]) [address] [place] [address] VIRHematocrit (Bld) [Volume fraction]52 %Kuol14-72XcdVdkkkm Palmer HospitalComment on above:Performed By: #### [id number] #### [facility] ([facility]) [address] [place] [address] VIRHemoglobin (Bld) [Mass/Vol]16.9 g/cCCsejvs37.0-17.0[facility] HospitalComment on above:Performed By: #### [id number] #### [facility] ([facility]) [address] [place] [address] VIRINSP. O2 CONC.100.0 %NormalProCleveland Clinic Union Hospital HospitalComment on above:Performed By: #### [id number] #### [facility] ([facility]) [address] [place] [address] VIROxygen saturation in Zgxpf820.0 %Normal>90.0ProMckitrick HospitalComment on above:Performed By: #### [id number] #### [facility] ([facility]) [address] [place] [address] VIRPCO2 WFUOCLMU94.6 gcLzNhgipp53.0-45.0ProMckitrick HospitalComment on above:Performed By: #### [id number] #### [facility] ([facility]) [address] [place] [address] VIRPH ARTERIAL7.487Lzx9.350-7.450[facility] Comment on above:Performed By: #### [id number] #### [facility] ([facility]) [address] [place] [address] VIRPO2 [id number] [id number] Good Samaritan Hospital Comment on above:Performed By: #### [id number] #### [facility] ([facility]) [address] [place] [address] VIRPOC YANI'S TESTNormalProMckitrick HospitalComment on above:Performed By: #### [id number] #### [facility] ([facility]) [address] [place] [address] VIRPORTABLE ICA4.8 mg/dLNormal4.5-5.3ProMedMadison Health Comment on above:Performed By: #### [id number] #### [facility] ([facility]) [address] [place] [address] VIRPotassium [Moles/Vol]4.1 mmol/LNormal3.5-5.0ProMckitrick HospitalComment on above:Performed By: #### [id number] #### [facility] ([facility]) [address] [place] [address] VIRSAMPLE SITEA LINENormalProMedica National Park HospitalComment on above:Performed By: #### [id number] #### [facility] ([facility]) [address] [place] [address] VIRSAMPLE TYPEArterialNormalProMedica National Park HospitalComment on above:Performed By: #### [id number] #### [facility] ([facility]) [address] [place] [address] VIRPOCT IMAGNon [id number] [Moles/Vol]0.59 mmol/L Normal0.45-0.60Pro[facility] Park HospitalComment on above:Performed By: #### IMAGN #### [facility] ([facility]) [address] [place] [address] VIRPOTASSIUMon [id number] [Moles/Vol]4.1 mmol/LNormal 3.5-5.0Pro[facility] Park HospitalComment on above:Performed By: #### UA #### [facility] ([facility]) [address] [place] [address] VIRPotassium [Moles/Vol]3.9 mmol/LNormal3.5-5.0Pro[facility] Park HospitalComment on above:Performed By: #### CBC #### [facility] ([facility]) [address] [place] [address] VIRPROTIME AND INRon [id number] Park HospitalComment on above:Performed By: #### CBC #### [facility] ([facility]) [address] [place] [address] VIRPT Coag (PPP) [Time]13.5 sHigh9.8-13.2[facility] HospitalComment on above:Performed By: #### CBC #### [facility] ([facility]) [address] [place] [address] VIRINR0.6Ceqiic2.9-1.2Pro[facility] National Park HospitalComment on above:Performed By: #### PINR #### [facility] ([facility]) [address] [place] [address] VIRPT Coag (PPP) [Time]10.0 sNormal9.8-13.2ProMedica Palmer HospitalComment on above:Performed By: #### PINR #### [facility] ([facility]) [address] [place] [address] VIRTYPE AND SCREENon 23-15-1701YSZ_DQZPPCZppgpaWmmOxuqlj Palmer HospitalComment on above:Performed By: #### TSC #### [facility] ([facility]) [address] [place] [address] VIRRH_INTEPPositiveNormalProMedica Palmer HospitalComment on above:Performed By: #### TSC #### [facility] ([facility]) [address] [place] [address] VIRURINALYSISon 43-53-7181Jregswjor Ql (U)NegativeNormal NegativeProMedica Palmer HospitalComment on above:Performed By: #### UA #### [facility] ([facility]) [address] [place] [address] VIRBLOOD/HGBNegativeNormalNegativeProMedica Palmer Hospital Comment on above:Performed By: #### UA #### [facility] ([facility]) [address] [place] [address] VIRColor (U)YellowNormalYellowProMedica Palmer HospitalComment on above:Performed By: #### UA #### [facility] ([facility]) [address] [place] [address] VIRGlucose Ql (U)>1000 mg/dLAbnormalNegativeProMedica Palmer HospitalComment on above:Performed By: #### UA #### [facility] ([facility]) [address] [place] [address] VIRKetones Ql (U)NegativeNormalNegativeProMedica National Park HospitalComment on above:Performed By: #### UA #### [facility] ([facility]) [address] [place] [address] VIRLeukocyte esterase Test strip Ql (U)NegativeNormalNegative ProMedica National Park HospitalComment on above:Result Comment: High Concentrations of Glucose May Decrease the Reactivity of the Dipstick Leukocyte Test Pad. Performed By: #### UA #### [facility] ([facility]) [address] [place] [address] VIRMUCOUSPresentAbnormalNoneProMedica National Park HospitalComment on above:Performed By: #### UA #### [facility] ([facility]) [address] [place] [address] VIRNitrite Ql (U)NegativeNormalNegativeProAshtabula County Medical Centerca National Park HospitalComment on above:Performed By: #### UA #### [facility] ([facility]) [address] [place] [address] VIRPH,URINE6.7Lduler5.0-8.5ProMedica National Park HospitalComment on above:Performed By: #### UA #### [facility] ([facility]) [address] [place] [address] VIRProtein Ql (U)TraceAbnormalNegativeProAshtabula County Medical Centerca [facility] Comment on above:Performed By: #### UA #### [facility] ([facility]) [address] [place] [address] VIRR.B.CELLS<^0Fdxirw3-9IkqWpuatd National Park HospitalComment on above:Performed By: #### UA #### [facility] ([facility]) [address] [place] [address] VIRSpecific gravity (U) [Rel density]1.631Qavmho6.003-1.035 ProMedica Magruder HospitalComment on above:Performed By: #### UA #### [facility] ([facility]) [address] [place] [address] VIRTURBIDITYClearNormalClearProMckitrick HospitalComment on above:Performed By: #### UA #### [facility] ([facility]) [address] [place] [address] VIRUROBILINOGEN<1.1 eu/dLNormal<1.1 eu/dLProMckitrick HospitalComment on above:Performed By: #### UA #### [facility] ([facility]) [address] [place] [address] VIRW.B.CELLS<^3Jyluvd9-6SjwTciyyi Magruder HospitalComment on above:Performed By: #### UA #### [facility] ([facility]) [address] [place] [address] VIRURINE CULTUREon 68-28-8994Glqrrkxq identified Cx Nom (U) CULTURE RESULTS NO GROWTH AT <1000 CFU/mLNormalTriHealth Good Samaritan HospitalComment on above: Performed By: #### TSC #### [facility] ([facility]) [address] [place] [address] VIRXR CHEST 1 VWon 24-18-1250ES CHEST 1 VWXR CHEST 1 VW Clinical [...] or pneumothorax on the supineradiograph. Right IJ [place] catheter tip terminates in proximal right pulmonary artery. IMPRESSION: 1. Mild perihilar subsegmental atelectasis, otherwise no acute finding status post cardiac surgery as above. Finalized by Ronnell Ashton MD on 06/13/2025 3:30 [facility] CTA TAVRon 94-68-4557ER CTA TAVRCT CTA TAVR STUDY: CT angiography [...] by Bhavana Ferrari MD on 05/12/2025 6:12 AMNormalProMckitrick HospitalBEDSIDE GLUCOSEon 91-08-1094Kxaiemi [Mass/Vol]138 mg/hVFglb70-66 ProMcleburne community hospital and nursing homea Magruder HospitalComment on above:Performed By: #### BEDG #### [facility] ([facility]) [address] [place] [address] VIRBASIC METABOLIC PANELon 33-29-4657Whuxy gap [Moles/Vol]6 mmol/LNormal5-15Ohio[facility] Arthur G.H. Bing, MD, Cancer CenterComment on above:Performed By: #### BMP #### [facility] ([facility]) [address] [place] [address] VIRCalcium [Mass/Vol]9.5 mg/dLNormal8.5-10.5PSelect Medical Specialty Hospital - TrumbullComment on above:Performed By: #### BMP #### [facility] ([facility]) [address] [place] [address] VIRChloride [Moles/Vol]102 mmol/PErjrma90-175SaoEnnhiqOhioHealth Arthur G.H. Bing, MD, Cancer CenterComment on above:Performed By: #### BMP #### [facility] ([facility]) [address] [place] [address] VIRCO2 [Moles/Vol]28 mmol/CZhmjtm10-56WygHrpegbSelect Medical Specialty Hospital - TrumbullComment on above:Performed By: #### BMP #### [facility] ([facility]) [address] [place] [address] VIRCreatinine [Mass/Vol]0.67 mg/dLNormal0.60-1.30ProNexus Children'S Hospital HoustonComment on above:Result Comment: METHOD TRACEABLE TO IDMS STANDARDPerformed By: #### BMP #### [facility] ([facility]) [address] [place] [address] VIREGFR (CKD-EPI) NON-RACE DEPENDENT>^90Normal>=60ProNexus Children'S Hospital HoustonComment on above:Result Comment: Reported eGFR is based on the CKD-EPI 2020 equation that does not use a race coefficient.Performed By: #### BMP #### [facility] ([facility]) [address] [place] [address] VIRGlucose [Mass/Vol]111 mg/xSSbid99-04RceZcrvwcNexus Children'S Hospital HoustonComment on above:Performed By: #### BMP #### [facility] ([facility]) [address] [place] [address] VIRPotassium [Moles/Vol]4.5 mmol/LNormal3.5-5.0ProNexus Children'S Hospital HoustonComment on above:Performed By: #### BMP #### [facility] ([facility]) [address] [address] VIRSodium [Moles/Vol]136 mmol/MVdzoif029-792HluFykdop Fremont HospitalComment on above:Performed By: #### BMP #### [facility] ([facility]) [address] [place] [address] VIRUrea nitrogen [Mass/Vol]12 mg/dLNormal5-27ProNexus Children'S Hospital HoustonComment on above:Performed By: #### BMP #### [facility] ([facility]) [address] [address] VIRCBC (NO DIFF)on 69-17-3496Nuvzlfszbxu distribution width (RBC) [Ratio]13.9 %Tqjhec45.5-15ProNexus Children'S Hospital HoustonComment on above: Performed By: #### CBC #### [facility] ([facility]) [address] [place] [address] VIRHematocrit (Bld) [Volume fraction]48.0 %Ncxplt57-00XpbTwciwvOhioHealth Arthur G.H. Bing, MD, Cancer CenterComment on above:Performed By: #### CBC #### [facility] ([facility]) [address] [place] [address] VIRHemoglobin (Bld) [Mass/Vol]16.4 g/nHCmrmir14-44RxqQmawyxNexus Children'S Hospital HoustonComment on above:Performed By: #### CBC #### [facility] ([facility]) [address] [place] [address] VIRMCH (RBC) [Entitic mass]31.3 bqWhiwfj52-06CpdDmkrrlOhioHealth Arthur G.H. Bing, MD, Cancer CenterComment on above:Performed By: #### CBC #### [facility] ([facility]) [address] [place] [address] VIRMCHC (RBC) [Mass/Vol]34.1 g/dHJyceqe26-36QesFczkfeOhioHealth Arthur G.H. Bing, MD, Cancer CenterComment on above:Performed By: #### CBC #### [facility] ([facility]) [address] [place] [address] VIRMCV (RBC) [Entitic vol]92 cLHsstch73-643OlkNtfxloOhioHealth Arthur G.H. Bing, MD, Cancer CenterComment on above:Performed By: #### CBC #### [facility] ([facility]) [address] [place] [address] VIRPlatelet mean volume (Bld) [Entitic vol]8.9 fLNormal7-12 [facility], MD, Cancer CenterComment on above:Performed By: #### CBC #### [facility] ([facility]) [address] [place] [address] VIRPlatelets (Bld) [#/Vol]170 10*3/uCRxejdy641-766VyoFvcedg Fremont HospitalComment on above:Performed By: #### CBC #### [facility] ([facility]) [address] [place] [address] VIRRBC COUNT5.22 X10E12/LNormal4.1-5.7Ohio[facility] Arthur G.[facility]. Bing, MD, Cancer CenterComment on above:Performed By: #### CBC #### [facility] ([facility]) [address] [place] [address] VIRWBC (Bld) [#/Vol]6.6 10*3/uLNormal4-11Ohio[facility], MD, Cancer CenterComment on above:Performed By: #### CBC #### [facility] ([facility]) [address] [place] [address] VIRPOCT EKGon 86-27-2670ByzAuhuymRegional Medical CenterLIPID PROFILEon 64-83-7198Obgngkqdrcn [Mass/Vol]148 mg/sZUck298-839EhgJfrragOhioHealth Arthur G.H. [facility], MD, Cancer Center Comment on above:Performed By: #### LIPR #### [facility] ([facility]) [address] [place] [address] VIRCholesterol in HDL [Mass/Vol]44 mg/dLNormal>39OhioHealth Arthur G.[facility]. Bing, MD, Cancer CenterComment on above:Result Comment: HDL <40 mg/dL - High Risk HDL > or = 40mg/dL- Desirable HDL >60 mg/dL - Negative RiskPerformed By: #### LIPR #### [facility] ([facility]) [address] [place] [address] VIRCholesterol in LDL [Mass/Vol]67 mg/dLNormal<130ProNexus Children'S Hospital HoustonComment on above:Result Comment: LDL <100 mg/dL - Desirable LDL >160 mg/dL - High RiskPerformed By: #### LIPR #### [facility] ([facility]) [address] [place] [address] VIRCHOLESTEROL:HDL3.7Ymssfe1.0-5.0[facility] Comment on above:Performed By: #### LIPR #### [facility] ([facility]) [address] [place] [address] VIRTriglyceride [Mass/Vol]186 mg/dGDcar64-608MvxZizmdaNexus Children'S Hospital HoustonComment on above:Performed By: #### LIPR #### [facility] ([facility]) [address] [place] [address] VIRVERY LOW PKBOABEIHYZ90 mg/dLHigh0-30ProNexus Children'S Hospital HoustonComment on above:Performed By: #### LIPR #### [facility] ([facility]) [address] [place] [address] VIRALL CBC WITH AUTO DIFFon 75-03-5328GTXGFPLHI ABSOLUTE AUTO 0.1NOMS HealthcareBasophils/100 WBC (Bld)0.6 %0.2 - 2.0 %[facility] Eosinophils/100 WBC (Bld)2.1 %0.9 - 7.0 %NOM HealthcareErythrocyte distribution width (RBC) [Ratio]13.3 %11.0 - 15.0 %NOMS HealthcareHematocrit (Bld) [Volume fraction]48.4 %42.0 - 54.0 %NOM HealthcareHemoglobin (Bld) [Mass/Vol]16.5 g/dL 14.0 - 18.0 g/dLNOOzarks Medical CenterIMMATURE GRANULOCYTES ABS AUTO0.03[facility] Immature granulocytes/100 WBC (Bld)0.4 %0.0 - 0.5 %NOM HealthcareInterpretation and review of laboratory resultsAbnormalNOIA HealthcareLYMPHOCYTES ABSOLUTE AUTO1.9NOMS HealthcareLymphocytes/100 WBC (Bld)23.1 %20.5 - 60.0 %NOMWashington County Memorial HospitalMCH (RBC) [Entitic mass]31.4 pg25.9 - 34.0 pgNOOzarks Medical CenterMCHC (RBC) [Mass/Vol]34.1 g/dL29.9 - 35.2 g/dLNOOzarks Medical CenterMCV (RBC) [Entitic vol]92.2 fL 80.0 - 94.0 fLNOOzarks Medical CenterMONOCYTES ABSOLUTE AUTO0.8[facility] Monocytes/100 WBC (Bld)9.9 %1.7 - 12.0 %[facility] HospitalNEUTROPHILS ABSOLUTE AUTO 5.1NOMS [facility]uder Memorial HospitalNeutrophils/100 WBC (Bld)63.9 %43.0 - 75.0 %[facility] Platelet mean volume (Bld) [Entitic vol]9.3 fLLow9.5 - 13.5 fLSaint John's Aurora Community HospitalTB EO #0.2NOMS [facility]uder Memorial HospitalTB [id number] [facility] RBC5.25NOHannibal Regional Hospital WBC 8NOOzarks Medical CenterCLINISYNCNSaint John's HospitalALL CBC WITH AUTO DIFFon 04-02-2025 BASOPHILS ABSOLUTE GPPG4VDNJOzarks Medical CenterBasophils/100 WBC (Bld)0.5 %0.2 - 2.0 % NOMWashington County Memorial HospitalEosinophils/100 WBC (Bld)2.3 %0.9 - 7.0 %[facility] Erythrocyte distribution width (RBC) [Ratio]13.2 %11.0 - 15.0 %[facility] Hematocrit (Bld) [Volume fraction]49.5 %42.0 - 54.0 %[facility] HospitalHemoglobin (Bld) [Mass/Vol]16.5 g/dL14.0 - 18.0 g/dLSaint John's Aurora Community HospitalIMMATURE GRANULOCYTES ABS AUTO0.04HighSaint John's Aurora Community HospitalImmature granulocytes/100 WBC (Bld)0.5 %0.0 - 0.5 %[facility] HospitalInterpretation and review of laboratory resultsAbnormalNOOzarks Medical CenterLYMPHOCYTES ABSOLUTE AUTO2.1NOMS Magruder Memorial HospitalLymphocytes/100 WBC (Bld) 24.6 %20.5 - 60.0 %[facility] SystemH (RBC) [Entitic mass]31 pg25.9 - 34.0 pg [facility] SystemHC (RBC) [Mass/Vol]33.3 g/dL29.9 - 35.2 g/dLLake Regional Health SystemV (RBC) [Entitic vol]93 fL80.0 - 94.0 fLSaint John's Aurora Community HospitalMONOCYTES ABSOLUTE AUTO0.8 NOMWashington County Memorial HospitalMonocytes/100 WBC (Bld)9.8 %1.7 - 12.0 %[facility] NEUTROPHILS ABSOLUTE AUTO5.2NOMS [facility]uder Memorial HospitalNeutrophils/100 WBC (Bld)62.3 %43.0 - 75.0 %[facility] HealthcarePlatelet mean volume (Bld) [Entitic vol]9.7 fL9.5 - 13.5 fL NOMS HealthcareTBH EO #0.2NOMS HealthcareTBH [id number] HealthcareTBH RBC5.32 NOMS HealthcareTBH WBC8.4NOMS HealthcareCLINISYNCNOMS RhmgeqexmwBrU1v (Bld) [Mass fraction]on 85-84-6069Txnfabqljozssp and review of laboratory results AbnormalQuorum HealthLaboratory - Hematology and Cell countson 42-92-8099EbR1h (Bld) [Mass fraction]7.9 %[facility] HospitalSEGMENTAL BLOOD PRESSUREon 03-03-[place]16[place] [address] Cardiology Report Signed Patient: DARIN THACKER MR#: [id number] : 1950 Acct:[id number] Age/Sex: 74 / M ADM Date: 02/03/25 Loc: CARD Attending Dr: Yaneli Howell M.D. Ordering Physician: Yaneli Howell M.D. Date of Service: 02/03/25 Procedure(s): CA segmental UE or LE AIMEE Accession Number(s): [id number] cc: Tonya Dye NP; Yaneli Howell M.D. 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 Interpretive Statements [...] GALINDO Signed By: 02/03/25220202/03/252202 DD/ 1339 TD/TT: Paper Handler:TBHRadiology, Radiologist, - 02/03/2025 [place] [address] Cardiology Report Signed Patient: DARIN THACKER MR#: [id number] : 1950 Acct:[id number] Age/Sex: 74 / M ADM Date: 02/03/25 Loc: CARD Attending Dr: Yaneli Howell M.D. Ordering Physician: Yaneli Howell M.D. Date of Service: 02/03/25 Procedure(s): CA segmental UE or LE AIMEE Accession Number(s): [id number] cc: Tonya Dye MANAGER WOUND CARE; Yaneli Howell M.D. 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 Interpretive Statements [...] GALINDO Signed By: 02/03/25220202/03/252202 DD/ 38 TD/TT: Paper Handler: [facility] HospitalRadiology Study observation (narrative)[facility] BLOOD PRESSUREOrdered By: Radiologist Radiology on 45-38-7719JDOISaint John's [facility] Hospital Work Phone: HbA1c (Bld) [Mass fraction]on 99-02-0076Zwwvhlnbhdynsx and review of laboratory resultsAbnormAurora BayCare Medical CenterLaboratory - Hematology and Cell countson 81-11-5785AaT2t (Bld) [Mass fraction]8.90 %[facility] HospitalUS.doppler Carotid arteries - bilateralon 49-54-7124C[address] [address] Ultrasound Report Signed Patient: DARIN THACKER MR#: [id number] : 1950 Acct:[id number] Age/Sex: 74 / M ADM Date: 08/22/24 Loc: US Attending Dr: Tonya Dye NP Ordering Physician: Tonya Dye NP Date of Service: 08/22/24 Procedure(s): US carotid duplex BI Accession Number(s): [id number] cc: Tonya Dye NP [address] [address] Patient Name: DARIN THACKER MR[facility]: [facility]:[id number] date: 1950 Sex: M Assigned Patient Location: US Current Patient Location: US Accession/Order Number: [id number] Exam Date: 08/22/2024 14:05 Report Date: 08/22/2024 [...] standard protocol. ICA-CCA ratios are calculated with manufacturer's representative peak-systolic velocities and recorded. Vertebral arteries [...] M.D. Signed By: 08/22/241725 DD/ 22 TD/TT: Paper Handler:TBHRadiology, Radiologist, MD - 08/22/2024 [place] [address] Ultrasound Report Signed Patient: DARIN THACKER MR#: [id number] : 1950 Acct:[id number] Age/Sex: 74 / M ADM Date: 08/22/24 Loc: US Attending Dr: Tonya Dye MANAGER WOUND CARE Ordering Physician: Tonya Dye NP Date of Service: 08/22/24 Procedure(s): US carotid duplex BI Accession Number(s): [id number] cc: Tonya Dye NP [place] [id number] Patient Name: DARIN THACKER MRN: [facility]:[id number] date: 1950 Sex: M Assigned Patient Location: US Current Patient Location: US Accession/Order Number: [id number] Exam Date: 08/22/2024 14:05 Report Date: 08/22/2024 [...] standard protocol. ICA-CCA ratios are calculated with manufacturer's representative peak-systolic velocities and recorded. Vertebral arteries [...] M.D. Signed By: 08/22/241725 DD/ 22 TD/TT: Paper Handler: GEENA HealthcareRadiology Study observation (narrative)GEENA HealthcareUS.doppler Carotid arteries - bilateralOrdered By: Radiologist Radiology on 00-48-5029HENQ [employer] Work Phone: aLL BASIC METABOLIC PANELon 92-00-5689Tgpfw gap [Moles/Vol]14.6 mmol/LNOMS HealthcareCalcium [Mass/Vol]9.4 mg/dL8.5 - 10.1 mg/dL NOMS HealthcareChloride [Moles/Vol]102 mmol/L98 - 107 mmol/LNOMS HealthcareCO2 [Moles/Vol]24.8 mmol/L21.0 - 32.0 mmol/LNOMS HealthcareCreatinine [Mass/Vol]0.72 mg/dL0.70 - 1.30 mg/dLNOMS HealthcareGFR/1.73 sq M.predicted CKD-EPI (S/P/Bld) [Vol rate/Area]>6060 - PINFNOMS HealthcareGlucose [Mass/Vol]128 mg/zCNzli77 - 106 mg/dLNOIA HealthcareInterpretation and review of laboratory resultsAbnormal NOMS HealthcarePotassium [Moles/Vol]4.4 mmol/L3.5 - 5.1 mmol/LNOMS Healthcare Sodium [Moles/Vol]137 mmol/L136 - 145 mmol/LNOMS HealthcareTBH EGFR-NON AF LIBYAN>6060 - PINFNOMS HealthcareUrea nitrogen [Mass/Vol]19.0 mg/dLHigh7.0 - 18.0 mg/dLNOMS HealthcareUrea nitrogen/Creatinine [Mass ratio]26.4 mg/mgNOMS HealthcareCLINISYNCNOMS HealthcareMRI HEAD/BRAIN WO/W CONTRon 31-96-3312[place]gt[place] [address] Magnetic Resonance Report Signed Patient: DARIN THACKER MR#: [id number] : 1950 Acct:[id number] Age/Sex: 73 / M ADM Date: 02/05/24 Loc: LAB Attending Dr: Lynn Vallecillo M.D. Ordering Physician: Lynn Vallecillo M.D. Date of Service: 02/05/24 Procedure(s): MR head/brain wo/w con Accession Number(s): [id number] cc: Tonya Dye MANAGER WOUND CARE; Lynn Vallecillo M.D. The [address] [address] Patient Name: DARIN THACKER MRN: [facility]:[id number] date: 1950 Sex: M Assigned Patient Location: LAB Current Patient Location: LAB Accession/Order Number: [id number] Exam Date: 02/05/2024 15:00 Report Date: 02/05/2024 [...] Kahn M.D. Signed By: 02/05/241650 DD/ TD/TT: Paper Handler:TBHRadiology, Radiologist, MD - 02/05/2024 [place] [address] Magnetic Resonance Report Signed Patient: DARIN THACKER MR#: [id number] : 1950 Acct:[id number] Age/Sex: 73 / M ADM Date: 02/05/24 Loc: LAB Attending Dr: Lynn Vallecillo M.D. Ordering Physician: Lynn Vallecillo M.D. Date of Service: 02/05/24 Procedure(s): MR head/brain wo/w con Accession Number(s): [id number] cc: Tonya Dye NP; Lynn Vallecillo M.D. [address] [address] Patient Name: DARIN THACKER MRN: [facility]:[id number] date: 1950 Sex: M Assigned Patient Location: LAB Current Patient Location: LAB Accession/Order Number: [id number] Exam Date: 02/05/2024 15:00 Report Date: 02/05/2024 [...] M.D. Signed By: 02/05/241650 DD/ 47 TD/TT: Paper Handler: GEENA HealthcareRadiology Study observation (narrative)[facility] SpringsI HEAD/BRAIN WO/W CONTROrdered By: Radiologist Radiology on 55-71-4545MEHCSaint John's Aurora [facility] Hospital Work Phone: SEGMENTAL BLOOD PRESSUREon 13-87-4555Knw [place] [address] Cardiology Report Signed Patient: DARIN THACKER MR#: [id number] : 1950 Acct:[id number] Age/Sex: 73 / M ADM Date: 01/23/24 Loc: CARD Attending Dr: OMID RICKS Ordering Physician: OMID RICKS Date of Service: 01/23/24 Procedure(s): CA segmental UE or LE AIMEE Accession Number(s): [id number] cc: OMID RICKS ; Tonya Dye NP [facility] Test Date: 2024-01-23 Pat Name: DARIN THACKER Department: Room: - Gender: Male [employer] 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 Signed By: 01/23/24232001/23/242320 DD/ 1435 TD/TT: Paper Handler: GEENA HealthcareRadiology Study observation (narrative)[facility] BLOOD PRESSUREOrdered By: Radiologist Radiology on [id number] Work Phone: Glucose Poct Glucometerson [phone] [Mass/Vol]139 mg/dLNoBucyrus Community HospitalComment on above: Result Comment: Random Glucose Reference Range is dependent on time and content of last meal. Glucose of more than 200 mg/dL in a nonstressed, ambulatory subject supports the diagnosis of Diabetes Mellitus. PERFORMED BY: [place] [address] [place] [address] PATHOLOGIST SOLE LEVELER ANGELES PAUL M.D.Performed By: #### GLULS #### Point of Care testing ,Ydluznu4Zlj9: Cleaned MeterNoBucyrus Community HospitalComment on above:Result Comment: PERFORMED BY: [facility] [address] [place] [address] PATHOLOGIST SOLE LEVELER ANGELES PAUL M.D.Performed By: #### GLULS #### Point of Care testing ,Glucose [Mass/Vol]166 mg/dLThe University of Toledo Medical CenterComment on above:Result Comment: Random Glucose Reference Range is dependent on time and content of last meal. Glucose of more than 200 mg/dL in a nonstressed, ambulatory subject supports the diagnosis of Diabetes Mellitus.Performed By: #### GLULS #### Point of Care testing ,Magdiel 60-75-9046QUxrxhqnj: [id number] Received: 12/28/23 Status: JERMAINE Kruger Num: [id number] Spec Type: Surgical Subm Dr: Ranulfo Zavala DO Tissues: A Skin Cyst (SEBACEOUS CYST RT SHOULDER) Procedures: HE, Gross/Micro L3 Age/ Patient Sex Location Account Attending Physician Darin Tahcker 73/M [place] [id number] Ranulfo Zavala DO SPEC NUM: [id number] RECD: 12/28/23 STATUS: JERMAINE KRUGER NUM: [id number] ZORA: 12/27/[address]: Ranulfo Zavala DO ENTERED: 12/28/23 [facility] DR: SPEC TYPE: Surgical DEPT: S ORDERED: [...] material. The surrounding tissue is firm, yellow-shaw.. Geology Professor sections are submitted in one cassette labeled A1. Microscopic Description Microscopic evaluation supports the above rendered diagnosis. CPT Codes 88761 Specimen: [id number] Received: 12/28/23 Status: JERMAINE Kruger Num: [id number] Spec Type: Surgical Subm Dr: Ranulfo Zavala DO Tissues: A Skin Cyst (SEBACEOUS CYST RT SHOULDER) Procedures: MICHAEL Gross/Micro L3 Patient: Darin Thacker [id number] (Continued) Signed (signature on file) Hillary Rosenbaum MD 12/29/23 1304NormalVeterans Health AdministrationBasic Metabolic Panelon 12-20-2023 Anion gap [Moles/Vol]10.4 mmol/LNormal6.0-15.0[facility] Comment on above:Performed By: #### BMP, SCAN CBC #### [facility] [address] [place] [address] USACalcium [Mass/Vol]9.5 mg/dLNormal8.6-10.3FProMedica Flower HospitalComment on above:Result Comment: PERFORMED BY: [place] [address] PATHOLOGIST SOLE LEVELER ANGELES PAUL M.D.Performed By: #### BMP, SCAN CBC #### [facility] [address] [place] [address] USAChloride [Moles/Vol]105 mmol/DGamozw88-833GsxoiwrapVeterans Health AdministrationComment on above:Performed By: #### BMP, SCAN CBC #### [facility] [address] [place] [address] USACO2 [Moles/Vol]24.3 mmol/MZjhevy57.0-31.0Veterans Health AdministrationComment on above:Performed By: #### BMP, SCAN CBC #### [facility] [address] [place] [address] USACreatinine [Mass/Vol]0.66 mg/dLLow0.70-1.30Veterans Health AdministrationComment on above:Performed By: #### BMP, SCAN CBC #### [facility] [address] [place] [address] USAGFR/1.73 sq M.predicted MDRD (S/P/Bld) [Vol rate/Area] mL/min/{1.73_m2}The University of Toledo Medical CenterComment on above: Performed By: #### BMP, SCAN CBC #### [facility] [address] [place] [id number] USAGlucose [Mass/Vol]129 mg/kLLmnt01-087OtfmdcaqtVeterans Health AdministrationComment on above:Result Comment: Random Glucose Reference Range is dependent on time and content of last meal. Glucose of more than 200 mg/dL in a nonstressed, ambulatory subject supports the diagnosis of Diabetes Mellitus. ADA recommended reference rangePerformed By: #### BMP, SCAN CBC #### [facility] [address] [place] [address] USAPotassium [Moles/Vol]4.7 mmol/LNormal3.5-5.1FProMedica Flower HospitalComment on above:Performed By: #### BMP, SCAN CBC #### [facility] [address] [place] [address] USASodium [Moles/Vol]135 mmol/EKzn080-163PecfxfpsoVeterans Health AdministrationComment on above:Performed By: #### BMP, SCAN CBC #### [facility] [address] [place] [address] USAUrea nitrogen [Mass/Vol]18 mg/dLNormal7-25Veterans Health AdministrationComment on above:Performed By: #### BMP, SCAN CBC #### [facility] [address] [place] [address] USAECG 12 lead ECGon 75-63-9234LZK 12 lead ECGSALEM REG[facility]AL [facility] Main [place] [address] [place] [address] Electrocardiograph Report Signed Patient: Darin Thacker MR#: [id number] : 1950 Acct:[id number] Age/Sex: 73 / M ADM Date: 12/20/23 Loc: Room: Type: [facility] Attending Dr: Ranulfo Zavala DO Ordering Provider: [...] When compared with ECG of 14-MAR-2021 10:14, WA interval has increased Vent. rate has decreased BY 43 BPM Nonspecific T wave abnormality now evident in Lateral leads Confirmed by Travon Livingston ([id number]) on 12/20/2023 7:43:38 PM Referred By: YUDI Electronically Signed By:Travon Livingston Transcribed By: BRENNAN Signed By Travon Livingston MD 12/20/23 1943NoUniversity Hospitals Health Systemcan and CBCon 12-20-2023 Basophils (Bld) [#/Vol]0.0 10*3/uLNormal0.0-0.2FProMedica Flower Hospital Comment on above:Result Comment: PERFORMED BY: [place] [address] PATHOLOGIST SOLE LEVELER ANGELES PAUL M.D.Performed By: #### BMP, SCAN CBC #### [facility] [address] [place] [address] USABasophils/100 WBC (Bld)0.6 %Normal.Veterans Health AdministrationComment on above:Performed By: #### BMP, SCAN CBC #### [facility] [address] [place] [address] USAEosinophils (Bld) [#/Vol]0.1 10*3/uLNormal0.0-0.45 Veterans Health AdministrationComment on above:Performed By: #### BMP, SCAN CBC #### [facility] [address] [place] [address] USAEosinophils/100 WBC (Bld)1.4 %Normal.Veterans Health AdministrationComment on above:Performed By: #### BMP, SCAN CBC #### [facility] [address] [place] [address] USAErythrocyte distribution width (RBC) [Ratio]14.5 %Normal 12.0-14.8Veterans Health AdministrationComment on above:Performed By: #### BMP, SCAN CBC #### [facility] [address] [place] [address] USAHematocrit (Bld) [Volume fraction]53.7 %High38.8-50.0 Veterans Health AdministrationComment on above:Performed By: #### BMP, SCAN CBC #### [facility] [address] [place] [address] USAHemoglobin (Bld) [Mass/Vol]18.3 g/tIPcis24.0-17.0Veterans Health AdministrationComment on above:Performed By: #### BMP, SCAN CBC #### [facility] [address] [place] [address] USALymphocytes (Bld) [#/Vol]1.6 10*3/uLNormal1.00-4.8 Veterans Health AdministrationComment on above:Performed By: #### BMP, SCAN CBC #### [place] [address] USALymphocytes/100 WBC (Bld)22.2 %Normal.Veterans Health AdministrationComment on above:Performed By: #### BMP, SCAN CBC #### [facility] [address] [place] [address] USAMCH (RBC) [Entitic mass]31.7 idOcwcmz93.5-35.2FProMedica Flower HospitalComment on above:Performed By: #### BMP, SCAN CBC #### [place] [address] USAMCV (RBC) [Entitic vol]92.8 jYZlktfs73.5-101Veterans Health AdministrationComment on above:Performed By: #### BMP, SCAN CBC #### [place] [address] USAMean Corpuscular HGB Conc34.1 g/hOTfzuus70.5-35.6FProMedica Flower HospitalComment on above:Performed By: #### BMP, SCAN CBC #### [facility] [address] [place] [address] USAMonocytes (Bld) [#/Vol]0.7 10*3/uLNormal0.0-0.8Veterans Health AdministrationComment on above:Performed By: #### BMP, SCAN CBC #### [address] [place] [address] USAMonocytes/100 WBC (Bld)9.8 %Normal.Veterans Health AdministrationComment on above:Performed By: #### BMP, SCAN CBC #### [facility] [address] [place] [address] USANeutrophils (Bld) [#/Vol]4.8 10*3/uLNormal1.8-7.7FProMedica Flower HospitalComment on above:Performed By: #### BMP, SCAN CBC #### [facility] [address] [place] [address] USANeutrophils/100 WBC (Bld)66.0 %Normal.Veterans Health AdministrationComment on above:Performed By: #### BMP, SCAN CBC #### [place] [address] USANRBC%0.4 /100{WBC}Normal0-0.5FProMedica Flower HospitalComment on above:Performed By: #### BMP, SCAN CBC #### [facility] [address] [place] [address] USAPlatelet EstimateNormalNormalNormEast Ohio Regional HospitalComment on above:Performed By: #### BMP, SCAN CBC #### [facility] [address] [place] [address] USAPlatelet mean volume (Bld) [Entitic vol]8.1 fLNormal 6.6-10.1FProMedica Flower HospitalComment on above:Performed By: #### BMP, SCAN CBC #### [facility] [address] [place] [address] USAPlatelet MorphologyNormalNormalNormEast Ohio Regional HospitalComment on above:Result Comment: PERFORMED BY: [place] [address] PATHOLOGIST SOLE LEVELER ANGELES PAUL M.D.Performed By: #### BMP, SCAN CBC #### [facility] [address] [place] [address] USAPlatelets (Bld) [#/Vol]206 10*3/qIPbgyzo162-926GgygrsahzVeterans Health AdministrationComment on above:Performed By: #### BMP, SCAN CBC #### [facility] [address] [place] [address] USARBC (Bld) [#/Vol]5.78 10*6/uLHigh3.90-5.60Veterans Health AdministrationComment on above:Performed By: #### BMP, SCAN CBC #### [facility] [address] [place] [address] USARBC morphology finding Nom (Bld)NormalNormalNormal Veterans Health AdministrationComment on above:Performed By: #### BMP, SCAN CBC #### [facility] [address] [place] [address] USAWBC (Bld) [#/Vol]7.3 10*3/uLNormal4.1-10.5FProMedica Flower HospitalComment on above:Performed By: #### BMP, SCAN CBC #### [facility] [address] [place] [address] USACT SINUS WO CONon 48-19-3618[place] [address] [place] Scan Report Signed Patient: DARIN THACKER MR#: [id number] : 1950 Acct:[id number] Age/Sex: 73 / M ADM Date: 12/05/23 Loc: CT Attending Dr: Tonya Dye NP Ordering Physician: Tonya Dye NP Date of Service: 12/05/23 Procedure(s): CT sinus wo con Accession Number(s): [id number] cc: Tonya Dye NP [place] [id number] Patient Name: DARIN THACKER MRN: [id number] date: 1950 Sex: M Assigned Patient Location: CT Current Patient Location: CT Accession/Order Number: [id number] Exam Date: 12/05/2023 12:53 Report Date: 12/05/2023 [...] Signed By: 12/05/23 1328 DD/ 1325 TD/TT: Paper Handler:TBHRadiology, Radiologist, - 12/05/2023 [place] [address] CT Scan Report Signed Patient: DARIN THACKER MR#: [id number] : 1950 Acct:[id number] Age/Sex: 73 / M ADM Date: 12/05/23 Loc: CT Attending Dr: Tonya Dye NP Ordering Physician: Tonya Dye NP Date of Service: 12/05/23 Procedure(s): CT sinus wo con Accession Number(s): [id number] cc: Tonya Dye NP [place] [id number] Patient Name: DARIN THACKER [facility][id number] date: 1950 Sex: M Assigned Patient Location: CT Current Patient Location: CT Accession/Order Number: [id number] Exam Date: 12/05/2023 12:53 Report Date: 12/05/2023 [...] Signed By: 12/05/23 1328 DD/ 1325 TD/TT: Paper Handler: GEENA HealthcareRadiology Study observation (narrative)[facility] HospitalCT SINUS WO CONOrdered By: Radiologist Radiology on 91-84-5587DMLNSaint John's [facility] Hospital Work Phone: MLR HEMOGLOBIN A1Con 30-29-6423Lpphnqn [Mass/Vol]192 mg/dLSaint John's Aurora Community HospitalHbA1c (Bld) [Mass fraction]8.3 %High4.5 - 6.2 %[facility] HealthcareComment on above:ADA RECOMMENDED LIMIT 4.0 - 6.0 ADA THERAPEUTIC TARGET < 7.0 ACTION SUGGESTED > 7.0 Interpretation and review of laboratory resultsAbnoCommunity Health SystemsCLINISYNC [facility] HealthcareXR elbow BI 2Von 90-41-6947UD elbow BI 2VSALEM REGIONAL MEDICAL [facility] Main [place] [address] [place] [address] XRay Report Signed Patient: Darin Thacker MR#: [id number] 96 : 1950 Acct:[id number] Age/Sex: 73 / M ADM Date: 10/24/23 [place]: [facility] Room: Type: [facility] Attending Dr: Shen Luis MD Copies to: [...] Gordon Jr., D.OPalak10/24/2023 2:29 PM Dictation Location: [place] [address] Transcribed By: [facility] 10/24/23 142 Dictated By: Dustin Gordon Jr, DO 10/24/23 1428 Signed By: 10/24/23 1429The [facility] of Toledo Medical CenterCT ABDOMEN WO/W CONon 01-78-8337EZ ABDOMEN WO/W CONEXAMINATION: CT ABDOMEN WO/W CON [...] Electronically authenticated by: BHAVANA MOREAU Date: 2023-01-31 16:31NoUpper Valley Medical Center AUTO DIFFon 43-64-8102VDGG #0.0 103/ulNormal0.0-0.1[facility] Blanchard Valley HospitalComment on above:Performed By: #### BMP #### [facility] [address] [place] [address] Dr. Lucho De LeónBasophils/100 WBC (Bld)0.6 %Normal0.2-2.0The [facility] Comment on above:Performed By: #### BMP #### [facility] [address] [place] [address] Dr. Lucho Hernandez #0.1 103/ulNormal0.0-0.7The [facility] Doctors HospitalComment on above: Performed By: #### BMP #### [facility] [address] [place] [address] Dr. Lucho Herbertosinophils/100 WBC (Bld)1.4 %Normal0.9-7.0The [facility] Comment on above:Performed By: #### BMP #### [facility] [address] [place] [address] Dr. Lucho Herbertrythrocyte distribution width (RBC) [Ratio]13.7 %Savknn26.0-15.0 The [facility] Doctors HospitalComment on above:Performed By: #### BMP #### [facility] [address] [place] [address] Dr. Lucho De LeónHematocrit (Bld) [Volume fraction]51.2 %Oxpahr79.0-54.0The [facility] Doctors HospitalComment on above:Performed By: #### BMP #### [facility] [address] [place] [address] Dr. Lucho De LeónHemoglobin (Bld) [Mass/Vol]17.5 g/mVJrewox10.0-18.0The [facility] HospitalComment on above:Performed By: #### BMP #### [facility] [address] [place] [address] Dr. Lucho De LeónIG #0.02 10e3/ulNormal0.00-0.03The [facility] Doctors HospitalComment on above:Performed By: #### BMP #### [facility] [address] [place] [address] Dr. Lucho De LeónIG %0.3 %Normal0.0-0.5The [facility] Doctors HospitalComment on above: Performed By: #### BMP #### [facility] [address] [place] [address] Dr. Lucho GeronimoMPH #1.5 103/ulNormal1.2-3.8The [facility] Doctors HospitalComment on above:Performed By: #### BMP #### [facility] [address] [place] [address] Dr. Lucho Geronimomphocytes/100 WBC (Bld)22.1 %Ynpsio05.5-60.0The [facility] HospitalComment on above:Performed By: #### BMP #### [facility] [address] [place] [address] Dr. Lucho Calero DIFF REQNONormalThe [facility] Doctors HospitalComment on above: Performed By: #### BMP #### [facility] [address] [place] [address] Dr. Lucho Linton (RBC) [Entitic mass]31.0 zqYyonyk47.9-34.0The [facility] HospitalComment on above:Performed By: #### BMP #### [facility] [address] [place] [address] Dr. Lucho Linton (RBC) [Mass/Vol]34.2 g/zYMkghgi09.9-35.2The [facility] HospitalComment on above:Performed By: #### BMP #### [facility] [address] [place] [address] Dr. Lucho Linton (RBC) [Entitic vol]90.6 oQSwhfpy01.0-94.0The [facility] HospitalComment on above:Performed By: #### BMP #### [facility] [address] [place] [address] Dr. Lucho Diaz #0.7 103/ulNormal0.3-0.8The [facility] HospitalComment on above:Performed By: #### BMP #### [facility] [address] [place] [address] Dr. Lucho Fengocytes/100 WBC (Bld)10.7 %Normal1.7-12.0The [facility] Comment on above:Performed By: #### BMP #### [facility] [address] [place] [address] Dr. Lucho Schutser #4.3 103/ulNormal1.4-6.5The [facility] HospitalComment on above:Performed By: #### BMP #### [facility] [address] [place] [address] Dr. Lucho Hennessyutrophils/100 WBC (Bld)64.9 %Jynbsp58.0-75.0The [facility] HospitalComment on above:Performed By: #### BMP #### [facility] [address] [place] [address] [address] Lucho De LeónPlatelet mean volume (Bld) [Entitic vol]9.1 fLCritically low 9.5-13.5The [facility] on above:Performed By: #### BMP #### [facility] [address] [place] [address] [address] Lucho De LeónPLT220 103/bcVpkapn374-885Zxi [facility] HospitalComment on above: Performed By: #### BMP #### [facility] [address] [place] [address] [address] Lucho De LeónRBC5.65 106/ulNormal4.70-6.10The [facility] HospitalComment on above:Performed By: #### BMP #### [facility] [address] [place] [address] Dr. Lucho De LeónWBC6.6 103/ulNormal4.0-11.0The [facility] HospitalComment on above: Performed By: #### BMP #### [facility] [address] [place] [address] Dr. Lucho De LeónGLYCOHEMOGLOBIN A1Con 77-28-4760BTZ RECOMMENDATIONSEE BELOWNormShelby Memorial HospitalComeaton rapids medical center on above:Result Comment: ADA RECOMMENDED LIMIT 4.0 - 6.0 ADA THERAPEUTIC TARGET < 7.0 ACTION SUGGESTED > 7.0Performed By: #### CVDTBH #### [facility] [address] [place] [address] Dr. Lucho De LeónGlucose [Mass/Vol]209 mg/dLNormalThe [facility] HospitalComeaton rapids medical center on above:Performed By: #### CVDTBH #### [facility] [address] [place] [address] [address] Lucho De LeónHbA1c (Bld) [Mass fraction]8.9 %Critically high4.5-6.2The [facility] HospitalComment on above:Performed By: #### CVDTBH #### [facility] [address] [place] [address] [address] Lucho Sams 45-41-1151Benc [Mass/Vol]59.0 ug/dLCritically low 65.0-175.0The [facility] HospitalComment on above:Performed By: #### BMP #### [facility] [address] [place] [address] [address] Lucho De LeónLIPID PROFILEon 53-21-2350NZIH-HDL RATIO NORMSDayton VA Medical CenterComment on above:Result Comment: 3.3 - 4.4 LOW RISK 4.4 - 7.1 AVERAGE RISK 7.1 - 11.0 MODERATE RISK >11.0 HIGH RISKPerformed By: #### BMP #### [facility] [address] [place] [address] [address] Lucho De LeónCholesterol [Mass/Vol]177 mg/dLNormal<=200The [facility] Comment on above:Performed By: #### BMP #### [facility] [address] [place] [address] Dr. Lucho De LeónCholesterol in HDL [Mass/Vol]50 mg/tSOjqaic81-27Uri [facility] HospitalComment on above:Performed By: #### BMP #### [facility] [address] [place] [address] [address] Lucho De LeónCholesterol in LDL [Mass/Vol]89.2 mg/dLMercy Health Clermont HospitalComment on above:Performed By: #### BMP #### [facility] [address] [place] [address] [address] Lucho De LeónCholesterol.total/Cholesterol in HDL [Mass ratio]3.5 {ratio} NormalThe [facility] HospitalComment on above:Performed By: #### BMP #### [facility] [address] [place] [address] [address] Lucho De LeónHDL NORMAL> or = 60 mg/dl - LOW CARDIOVASCULAR RISK <40 mg/dl - HIGH CARDIOVASCULAR RISKMercy Health Clermont HospitalComment on above:Performed By: #### BMP #### [facility] [address] [place] [address] Dr. Lucho De LeónLDL CALC NORMALSEE Marietta Osteopathic ClinicComment on above:Result Comment: <100 mg/dl OPTIMAL 100 - 129 mg/dl NEAR OR ABOVE OPTIMAL 130 - 159 mg/dl BORDERLINE HIGH 160 - 189 mg/dl HIGH >190 mg/dl VERY HIGH Performed By: #### BMP #### [facility] [address] [place] [address] Dr. Luhco De LeónTriglyceride [Mass/Vol]189 mg/dLCritically high<=150The [facility] Hospital [facility] Southment on above:Performed By: #### BMP #### [facility] [address] [place] [address] Dr. Lucho De LeónVLDL CALC37.8 mg/dLNormalThe [facility] HospitalComment on above: Performed By: #### BMP #### [facility] [address] [place] [address] Dr. Lucho Alanis, RAND URon 56-51-4628wJWQ8.6 mg/LNormal<=30.0The [facility] HospitalComeaton rapids medical center on above:Performed By: #### MALBR #### [facility] [address] [place] [address] Dr. Lucho De LeónPROF 14(COMP METB)on 78-80-0395Dgjeskq [Mass/Vol]3.6 g/dLNormal 3.4-5.0The [facility] on above:Performed By: #### BMP #### [facility] [address] [place] [address] Dr. Lucho De LeónAlbumin/Globulin [Mass ratio]0.9 {ratio}NormalThe [facility] on above:Performed By: #### BMP #### [facility] [address] [place] [address] Dr. Lucho LeeP [Catalytic activity/Vol]95 U/MSidspz40-709Jvs [facility] HospitalComeaton rapids [facility] center on above:Performed By: #### BMP #### [facility] [address] [place] [address] Dr. Lucho LeeT [Catalytic activity/Vol]26 U/IPkmdmm31-21Cya [facility] on above:Performed By: #### BMP #### [facility] [address] [place] [address] [address] Lucho Parks gap [Moles/Vol]16.7 mmol/LNormalThe [facility] Comment on above:Performed By: #### BMP #### [facility] [address] [place] [address] [address] Lucho De LeónAST [Catalytic activity/Vol]13 U/LCritically pfw40-51Gep [facility] HospitalComment on above:Performed By: #### BMP #### [facility] [address] [place] [address] [address] Lucho De LeónBilirubin [Mass/Vol]0.3 mg/dLNormal0.2-1.0The [facility] Comment on above:Performed By: #### BMP #### [facility] [address] [place] [address] Dr. Lucho De LeónCalcium [Mass/Vol]9.7 mg/dLNormal8.5-10.1The [facility] Comment on above:Performed By: #### BMP #### [facility] [address] [place] [address] Dr. Lucho De LeónChloride [Moles/Vol]103 mmol/YWaztvt18-177Hyl [facility] Comment on above:Performed By: #### BMP #### [facility] [address] [place] [address] Dr. Lucho De LeónCO2 [Moles/Vol]24.9 mmol/XIplrdm10.0-32.0The [facility] Comment on above:Performed By: #### BMP #### [facility] [address] [place] [address] Dr. Lucho De LeónCreatinine [Mass/Vol]0.81 mg/dLNormal0.70-1.30The [facility] HospitalComment on above:Performed By: #### BMP #### [facility] [address] [place] [address] [address] Lucho Holliday-AF LIBYAN>60Normal>=60The [facility] HospitalComment on above:Performed By: #### BMP #### [facility] [address] [place] [address] Dr. Yilan ChangEGFR-NON AF LIBYAN>60Normal>=60The [facility] HospitalComment on above:Performed By: #### BMP #### [facility] [address] [place] [address] [address] Lucho De LeónGlobulin (S) [Mass/Vol]4.2 g/dLNormBlanchard Valley Health SystemComment on above:Performed By: #### BMP #### [facility] [address] [place] [address] Dr. Lucho De LeónGlucose [Mass/Vol]156 mg/dLCritically olbd48-808Hfl [facility] HospitalComment on above:Performed By: #### BMP #### [facility] [address] [place] [address] Dr. Lucho De LeónPotassium [Moles/Vol]4.6 mmol/LNormal3.5-5.1The [facility] Comment on above:Performed By: #### BMP #### [facility] [address] [place] [address] Dr. Lucho De LeónProtein [Mass/Vol]7.8 g/dLNormal6.4-8.2The [facility] Comment on above:Performed By: #### BMP #### [facility] [address] [place] [address] Dr. Lucho De LeónSodium [Moles/Vol]140 mmol/DVfpegn270-467Azp [facility] Comment on above:Performed By: #### BMP #### [facility] [address] [place] [address] Dr. Lucho De LeónUrea nitrogen [Mass/Vol]15.0 mg/dLNormal7.0-18.0The [facility] Doctors HospitalComment on above:Performed By: #### BMP #### [facility] [address] [place] [address] Dr. Lucho March nitrogen/Creatinine [Mass ratio]18.5 mg/mgNormalThSelect Medical Specialty Hospital - CantonComment on above:Performed By: #### BMP #### [facility] [address] [place] [address] Dr. Lucho De LeónUA RANDOM W/MICROSCOPICon 06-38-1953QNGZTVPWVXVG SEENNormalNONE SEENBlanchard Valley Health System [facility] HospitalComeaton rapids medical center on above:Performed By: #### CBC #### [facility] [address] [address] [address] Lucho De LeónBilirubin Ql (U)NegativeNormalNEGTriHealth Bethesda Butler Hospital Comment on above:Performed By: #### CBC #### [facility] [address] [address] [address] Lucho De LeónCASTNONE SEENNormalNONE SEENBlanchard Valley Health System [facility] HospitalComeaton rapids medical center on above:Performed By: #### CBC #### [facility] [address] [address] [address] Lucho De LeónClarity (U)CLEARNormalCLEARBlanchard Valley Health System [facility] HospitalComeaton rapids medical center on above: Performed By: #### CBC #### [facility] [address] [place] [address] Dr. Lucho De LeónColor (U)LT. YELLOWNormalYFort Hamilton HospitalComment on above:Performed By: #### CBC #### [facility] [address] [place] [address] Dr. Lucho De LeónCrystals LM Nom (Urine sed)NONE SEENNormalNONE SEENBlanchard Valley Health System [facility] HospitalComeaton rapids medical center on above:Performed By: #### CBC #### [facility] [address] [place] [address] Dr. Yepez ChangEpithelial cells LM Ql (Urine sed)NONE SEENNormalNONE SEEN /RARE [facility] HospitalCome[facility] rapids [facility] on above:Performed By: #### CBC #### [facility] [address] [place] [address] Dr. Lucho De LeónGlucose Ql (U)1000 mg/dlAbnormalNEGTriHealth [facility] Comment on above:Performed By: #### CBC #### [facility] [address] [place] [address] Dr. Lucho De LeónHemoglobin Ql (U)NegativeNormalNEGTriHealth [facility] Comment on above:Performed By: #### CBC #### [facility] [address] [place] [address] Dr. Lucho Kruse Ql (U)NegativeNormalNEGATIVEThe [facility] HospitalComment on above:Performed By: #### CBC #### [facility] [address] [place] [address] Dr. Lucho McgheeOCYTESNegativeNormalNEGATIVEThe [facility] HospitalComment on above:Performed By: #### CBC #### [facility] [address] [address] [address] Lucho HendersonCOUSNONJoesph SEENNormalNONE SEENBlanchard Valley Health System [facility] Valley HospitalComment on above:Performed By: #### CBC #### [facility] [address] [address] [address] Lucho Zayas Ql (U)NegativeNormalNEGATIVEThe [facility] HospitalComment on above:Performed By: #### CBC #### [facility] [address] [place] [address] Dr. Lucho De LeónpH (U)5.5 [pH]Normal5-9The [facility] HospitalComment on above: Performed By: #### CBC #### [facility] [address] [place] [address] Dr. Lucho De LeónRBCNJOEL SEENAbnormal0-2The [facility] Southment on above: Performed By: #### CBC #### [facility] [address] [place] [address] Dr. Lucho De LeónSPEC GRAVITY1.432Xusmhd2.005-<=1.025The [facility] HospitalComment on above:Performed By: #### CBC #### [facility] [address] [place] [address] Dr. Lucho Seth PROTEINNegativeNormalNEGATIVE/ TRACEThe St. [facility] on above:Performed By: #### CBC #### [facility] [address] [place] [address] Dr. Lucho Sortobilkana Qn (U)0.2 {Danny'U}/dLNormal0.2 - 1.0The [facility] HospitalComment on above:Performed By: #### CBC #### [facility] [address] [address] [address] Lucho De LeónWBCNONE SEENNormalNONE SEENThe [facility] HospitalComment on above: Performed By: #### CBC #### [facility] [address] [place] [address] Dr. Lucho Adams CAROTID ART BILon [id number] CAROTID ART BILEXAMINATION: US CAROTID ART AIMEE [...] Electronically authenticated by: BHAVANA MOREAU Date: 2022-12-20 16:32NormalThRiverview Health Institute AUTO DIFFon [id number] #0.1 103/ulNormal0.0-0.1[facility] Valley HospitalComment on above:Performed By: #### HGBHCT #### [facility] [address] [place] [address] Dr. Lucho De LeónBasophils/100 WBC (Bld)0.6 %Normal0.2-2.0[facility] Comment on above:Performed By: #### HGBHCT #### [facility] [address] [address] [address] Lucho Hernandez #0.1 103/ulNormal0.0-0.7The [facility] HospitalComment on above: Performed By: #### HGBHCT #### [facility] [address] [address] [address] Lucho Herbertosinophils/100 WBC (Bld)1.1 %Normal0.9-7.0[facility] Comment on above:Performed By: #### HGBHCT #### [facility] [address] [place] [address] Dr. Lucho Herbertrythrocyte distribution width (RBC) [Ratio]13.6 %Cjdcji19.0-15.0 The [facility] HospitalComment on above:Performed By: #### HGBHCT #### [facility] [address] [place] [address] Dr. Lucho De LeónHematocrit (Bld) [Volume fraction]56.1 %Critically high42.0-54.0 The [facility] HospitalComment on above:Performed By: #### HGBHCT #### [facility] [address] [place] [address] Dr. Lucho De LeónHemoglobin (Bld) [Mass/Vol]17.8 g/hSEnyadb75.0-18.0The [facility] HospitalComment on above:Performed By: #### HGBHCT #### [facility] [address] [place] [address] Dr. Lucho De LeónIG #0.02 10e3/ulNormal0.00-0.03The [facility] HospitalComment on above:Performed By: #### HGBHCT #### [facility] [address] [place] [address] Dr. Lucho Bhatti %0.2 %Normal0.0-0.5The [facility] HospitalComment on above: Performed By: #### HGBHCT #### [facility] [address] [place] [address] Dr. Lucho PaulinoH #1.6 103/ulNormal1.2-3.8The [facility] HospitalComment on above:Performed By: #### HGBHCT #### [facility] [address] [place] [address] Dr. Lucho Geronimomphocytes/100 WBC (Bld)19.3 %Critically low20.5-60.0The [facility] HospitalComment on above:Performed By: #### HGBHCT #### [facility] [address] [place] [address] Dr. Lucho AdamsUAL DIFF REQNONormalThe [facility] HospitalComment on above: Performed By: #### HGBHCT #### [facility] [address] [place] [address] Dr. Lucho Linton (RBC) [Entitic mass]31.0 etEqbdsk58.9-34.0The [facility] HospitalComment on above:Performed By: #### HGBHCT #### [facility] [address] [place] [address] Dr. Lucho Linton (RBC) [Mass/Vol]31.7 g/fCFhgcck42.9-35.2The [facility] HospitalComment on above:Performed By: #### HGBHCT #### [facility] [address] [place] [address] Dr. Lucho LintonV (RBC) [Entitic vol]97.6 fLCritically high80.0-94.0The [facility] HospitalComment on above:Performed By: #### HGBHCT #### [facility] [address] [place] [address] Dr. Lucho Diaz #0.7 103/ulNormal0.3-0.8The [facility] HospitalComment on above:Performed By: #### HGBHCT #### [facility] [address] [place] [address] Dr. Lucho Fengocytes/100 WBC (Bld)8.1 %Normal1.7-12.0The [facility] Comment on above:Performed By: #### HGBHCT #### [facility] [address] [place] [address] Dr. Lucho Schuster #5.7 103/ulNormal1.4-6.5The [facility] HospitalComment on above:Performed By: #### HGBHCT #### [facility] [address] [place] [address] Dr. Lucho Hennessyutrophils/100 WBC (Bld)70.7 %Gjmzrp39.0-75.0The [facility] HospitalComment on above:Performed By: #### HGBHCT #### [facility] [address] [place] [address] Dr. Lucho Maddenlet mean volume (Bld) [Entitic vol]10.6 fLNormal9.5-13.5The [facility] HospitalComment on above:Performed By: #### HGBHCT #### [facility] [address] [place] [address] Dr. Lucho De LeónPLT228 103/gyGtvkdu598-561Qid [facility] HospitalComment on above: Performed By: #### HGBHCT #### [facility] [address] [place] [address] Dr. Lucho De LeónRBC5.75 106/ulNormal4.70-6.10The [facility] HospitalComment on above:Performed By: #### HGBHCT #### [facility] [address] [place] [address] Dr. Lucho De LeónWBC8.1 103/ulNormal4.0-11.0The [facility] HospitalComment on above: Performed By: #### HGBHCT #### [facility] [address] [place] [address] Dr. Lucho De LeónPROF CHEM 8 (BAS METB)on 08-99-3309Svblw gap [Moles/Vol]11.1 mmol/LNormalThe [facility] HospitalComment on above:Performed By: #### BMP #### [facility] [address] [place] [address] Dr. Lucho De LeónCalcium [Mass/Vol]9.3 mg/dLNormal8.5-10.1[facility] Comment on above:Performed By: #### BMP #### [facility] [address] [place] [address] Dr. Lucho De LeónChloride [Moles/Vol]102 mmol/JUkxmnb29-338Pjt [facility] Comment on above:Performed By: #### BMP #### [facility] [address] [place] [address] Dr. Lucho De LeónCO2 [Moles/Vol]28.3 mmol/GWswtvo32.0-32.0The [facility] Comment on above:Performed By: #### BMP #### [facility] [address] [place] [address] Dr. Lucho De LeónCreatinine [Mass/Vol]0.59 mg/dLCritically low0.70-1.30The [facility] HospitalComment on above:Performed By: #### BMP #### [facility] [address] [address] [address] Lucho HerbertGFR-AF LIBYAN>60Normal>=60The [facility] HospitalComment on above:Performed By: #### BMP #### [facility] [address] [address] [address] Lucho HerbertGFR-NON AF LIBYAN>60Normal>=60The [facility] HospitalComment on above:Performed By: #### BMP #### [facility] [address] [address] [address] Lucho De LeónGlucose [Mass/Vol]171 mg/dLCritically fqup83-872Erz [facility] Southment on above:Performed By: #### BMP #### [facility] [address] [place] [address] Dr. Lucho De LeónPotassium [Moles/Vol]4.4 mmol/LNormal3.5-5.1The [facility] Comment on above:Performed By: #### BMP #### [facility] [address] [place] [address] Dr. Lucho Teresadium [Moles/Vol]137 mmol/EDddqmt881-641Hsu [facility] Comment on above:Performed By: #### BMP #### [facility] [address] [place] [address] Dr. Lucho De LeónUrea nitrogen [Mass/Vol]12.0 mg/dLNormal7.0-18.0The [facility] Southment on above:Performed By: #### BMP #### [facility] [address] [place] [address] Dr. Lucho De LeónUrea nitrogen/Creatinine [Mass ratio]20.3 mg/mgNormalThe [facility] HospitalComment on above:Performed By: #### BMP #### [facility] [address] [place] [address] Dr. Lucho Ortegaral Surgery Office/Clinic Noteon [id number] Surgery Office/Clinic NoteChief Complaint post operative follow [...] MANJIT WILKINS, JULIA Mays Only if needed [address] [place] [address]- Additional Instructions: Problem List/Past Medical [...] Primary malignant neoplasm of female breast: Sister.NormalFisher Rooks Medical CenterComment on above:Result Comment: Electronically Signed By: MANJIT WILKINS, Bernadine Calle\Date and Time Signed: 10/25/22 16:08 ESTPathology Noteon [id number] [id number]#1.00CD:127 [facility] HospitalOperative Reporton [id number] Report [id number]#1.00CD:127[facility] HospitalGLYCOHEMOGLOBIN A1Con [id number] RECOMMENDATIONSEE [facility] Oste[facility] ClinicComment on above:Result Comment: ADA RECOMMENDED LIMIT 4.0 - 6.0 ADA THERAPEUTIC TARGET < 7.0 ACTION SUGGESTED > 7.0Performed By: #### CVDTBH #### [facility] [address] [address] [address] Lucho De LeónGlucose [Mass/Vol]197 mg/dLNoTuscarawas HospitalComment on above:Performed By: #### CVDTBH #### [facility] [address] [address] [address] Lucho De LeónHbA1c (Bld) [Mass fraction]8.5 %Critically high4.5-6.2The [facility] HospitalComment on above:Performed By: #### CVDTBH #### [facility] [address] [address] [address] Lucho De LeónPROF CHEM 8 (BAS METB)on 51-24-9369Jtxdc gap [Moles/Vol]12.0 mmol/LNormalThe [facility] HospitalComment on above:Performed By: #### BMP #### [facility] [address] [address] [address] Lucho De LeónCalcium [Mass/Vol]9.0 mg/dLNormal8.5-10.1The [facility] Comment on above:Performed By: #### BMP #### [facility] [address] [address] [address] Lucho De LeónChloride [Moles/Vol]100 mmol/ESgaopb60-990Zhs [facility] Comment on above:Performed By: #### BMP #### [facility] [address] [place] [address] Dr. Lucho De LeónCO2 [Moles/Vol]24.6 mmol/ZEtntpq70.0-32.0The [facility] Comment on above:Performed By: #### BMP #### [facility] [address] [place] [address] Dr. Lucho De LeónCreatinine [Mass/Vol]0.61 mg/dLCritically low0.70-1.30The [facility] HospitalComment on above:Performed By: #### BMP #### [facility] [address] [place] [address] Dr. Lucho HerbertGFR-AF LIBYAN>60Normal>=60The [facility] HospitalComment on above:Performed By: #### BMP #### [facility] [address] [place] [address] Dr. Lucho HerbertGFR-NON AF LIBYAN>60Normal>=60The [facility] HospitalComment on above:Performed By: #### BMP #### [facility] [address] [place] [address] Dr. Lucho De LeónGlucose [Mass/Vol]186 mg/dLCritically aajw27-903Ziw [facility] HospitalComment on above:Performed By: #### BMP #### [facility] [address] [place] [address] Dr. Lucho De LeónPotassium [Moles/Vol]4.6 mmol/LNormal3.5-5.1The [facility] Comment on above:Performed By: #### BMP #### [facility] [address] [place] [address] Dr. Lucho De LeónSodium [Moles/Vol]132 mmol/LCritically sxp999-903Kzp [facility] HospitalComment on above:Performed By: #### BMP #### [facility] [address] [place] [address] Dr. Lucho De LeónUrea nitrogen [Mass/Vol]12.0 mg/dLNormal7.0-18.0The [facility] HospitalComment on above:Performed By: #### BMP #### [facility] [address] [address] [address] Lucho De LeónUrea nitrogen/Creatinine [Mass ratio]19.7 mg/mgNoTuscarawas HospitalComment on above:Performed By: #### BMP #### [facility] [address] [address] [address] Lucho De LeónXR CSPINE 2_3 VIEWSon 53-60-0318PK CSPINE 2_3 VIEWSEXAMINATION: XR CSPINE 2_3 VIEWS [...] Electronically authenticated by: BHAVANA MOREAU Date: 2022-09-22 12:09[facility] HospitalConsent for Procedure/Surgeryon [id number] for Procedure/[id number]#1.00CD:127NoMiddletown HospitalAmbulatory Visit Summaryon 40-50-9778Hpjlygdbjo Visit Summary DARIN THACKER :1950 Visit Date:08/30/2022 [...] Seasonal allergies Tobacco user Vitamin B12 deficiency NormalCleveland Clinic [facility] HospitalPhysician Referralon 08-04-2022 Physician [id number]#1.00CD:127Normal [facility] HospitalCBC AUTO DIFFon [id number] #0.0 103/ulNormal 0.0-0.1[facility] HospitalComment on above:Performed By: #### CVDTBH #### [facility] [address] [address] [address] Lucho Constantinosophils/100 WBC (Bld)0.4 %Normal0.2-2.0[facility] Comment on above:Performed By: #### CVDTBH #### [facility] [address] [address] [address] Lucho Hernandez #0.1 103/ulNormal0.0-0.7The [facility] HospitalComment on above: Performed By: #### CVDTBH #### [facility] [address] [place] [address] Dr. Lucho Herbertosinophils/100 WBC (Bld)1.6 %Normal0.9-7.0The [facility] Comment on above:Performed By: #### CVDTBH #### [facility] [address] [place] [address] Dr. Lucho Herbertrythrocyte distribution width (RBC) [Ratio]16.1 %Critically high 11.0-15.0The [facility] HospitalComment on above:Performed By: #### CVDTBH #### [facility] [address] [place] [address] Dr. Lucho De LeónHematocrit (Bld) [Volume fraction]51.3 %Kkitqh08.0-54.0The [facility] HospitalComment on above:Performed By: #### CVDTBH #### [facility] [address] [place] [address] Dr. Lucho De LeónHemoglobin (Bld) [Mass/Vol]16.9 g/sMEvpsex70.0-18.0The [facility] HospitalComment on above:Performed By: #### CVDTBH #### [facility] [address] [place] [address] Dr. Lucho Bhatti #0.02 10e3/ulNormal0.00-0.03The [facility] HospitalComment on above:Performed By: #### CVDTBH #### [facility] [address] [place] [address] Dr. Lucho Bhatit %0.3 %Normal0.0-0.5The [facility] HospitalComment on above: Performed By: #### CVDTBH #### [facility] [address] [place] [address] Dr. Lucho Fox #1.6 103/ulNormal1.2-3.8The [facility] HospitalComment on above:Performed By: #### CVDTBH #### [facility] [address] [place] [address] Dr. Lucho Paulinohocytes/100 WBC (Bld)21.6 %Lspmfb72.5-60.0The [facility] HospitalComment on above:Performed By: #### CVDTBH #### [facility] [address] [place] [address] Dr. Yilan ChangMANUAL DIFF REQNONormalThe [facility] HospitalComment on above: Performed By: #### CVDTBH #### [facility] [address] [place] [address] Dr. Lucho Linton (RBC) [Entitic mass]29.3 waNgshsf37.9-34.0The [facility] HospitalComment on above:Performed By: #### CVDTBH #### [facility] [address] [place] [address] Dr. Lucho Linton (RBC) [Mass/Vol]32.9 g/vWAbqumb11.9-35.2The [facility] HospitalComment on above:Performed By: #### CVDTBH #### [facility] [address] [place] [address] Dr. Lucho Linton (RBC) [Entitic vol]89.1 zVUhtoca19.0-94.0The [facility] HospitalComment on above:Performed By: #### CVDTBH #### [facility] [address] [place] [address] Dr. Lucho Diaz #0.6 103/ulNormal0.3-0.8The [facility] HospitalComment on above:Performed By: #### CVDTBH #### [facility] [address] [place] [address] Dr. Lucho Fengocytes/100 WBC (Bld)8.6 %Normal1.7-12.0The [facility] Comment on above:Performed By: #### CVDTBH #### [facility] [address] [place] [address] Dr. Lucho Schuster #5.0 103/ulNormal1.4-6.5The [facility] HospitalComment on above:Performed By: #### CVDTBH #### [facility] [address] [place] [address] Dr. Lucho Hennessyutrophils/100 WBC (Bld)67.5 %Jqdkko35.0-75.0The [facility] HospitalComment on above:Performed By: #### CVDTBH #### [facility] [address] [address] [address] Lucho De LeónPlatelet mean volume (Bld) [Entitic vol]10.3 fLNormal9.5-13.5The [facility] on above:Performed By: #### CVDTBH #### [facility] [address] [address] [address] Lucho De LeónPLT218 103/jgYlkoen093-890Ttz [facility] HospitalComeaton rapids medical center on above: Performed By: #### CVDTBH #### [facility] [address] [place] [address] Dr. Lucho De LeónRBC5.76 106/ulNormal4.70-6.10The [facility] HospitalComeaton rapids medical center on above:Performed By: #### CVDTBH #### [facility] [address] [place] [address] Dr. Lucho De LeónWBC7.5 103/ulNormal4.0-11.0[facility] on above: Performed By: #### CVDTBH #### [facility] [address] [place] [address] Dr. Lucho De LeónGLYCOHEMOGLOBIN A1Con [id number] RECOMMENDATIONSEE BELOWNoAultman Alliance Community Hospital on above:Result Comment: ADA RECOMMENDED LIMIT 4.0 - 6.0 ADA THERAPEUTIC TARGET < 7.0 ACTION SUGGESTED > 7.0Performed By: #### A1C #### [facility] [address] [place] [address] Dr. Lucho De LeónGlucose [Mass/Vol]177 mg/dLNormalThPremier Health [facility] on above:Performed By: #### A1C #### [facility] [address] [place] [address] Dr. Lucho De LeónHbA1c (Bld) [Mass fraction]7.8 %Critically high4.5-6.2The [facility] on above:Performed By: #### A1C #### [facility] [address] [place] [address] Dr. Lucho Sams 04-93-3798Lpjq [Mass/Vol]50.0 ug/dLCritically low 65.0-175.0The [facility] HospitalComment on above:Performed By: #### CBC #### [facility] [address] [place] [address] Dr. Lucho Valentino 14(COMP METB)on 57-70-5489Oiwfjdw [Mass/Vol]3.8 g/dLNormal 3.4-5.0The [facility] HospitalComment on above:Performed By: #### HGBHCT #### [facility] [address] [place] [address] Dr. Lucho De LeónAlbumin/Globulin [Mass ratio]0.9 {ratio}NormalThe [facility] HospitalComment on above:Performed By: #### HGBHCT #### [facility] [address] [place] [address] Dr. Lucho LeeP [Catalytic activity/Vol]95 U/ZLoxlds66-575Irb [facility] HospitalComment on above:Performed By: #### HGBHCT #### [facility] [address] [place] [address] Dr. Lucho LeeT [Catalytic activity/Vol]19 U/LIfdhfe65-07Pml [facility] HospitalComment on above:Performed By: #### HGBHCT #### [facility] [address] [place] [address] Dr. Lucho Parks gap [Moles/Vol]12.2 mmol/LNormalThe [facility] Comment on above:Performed By: #### HGBHCT #### [facility] Laboratory [address] [place] [address] Dr. Lucho De LeónAST [Catalytic activity/Vol]11 U/LCritically opy12-92Dti [facility] HospitalComment on above:Performed By: #### HGBHCT #### [facility] [address] [place] [address] Dr. Lucho De LeónBilirubin [Mass/Vol]0.3 mg/dLNormal0.2-1.0[facility] Comment on above:Performed By: #### HGBHCT #### [facility] [address] [address] [address] Lucho De LeónCalcium [Mass/Vol]9.6 mg/dLNormal8.5-10.1[facility] Comment on above:Performed By: #### HGBHCT #### [facility] [address] [place] [address] Dr. Lucho De LeónChloride [Moles/Vol]103 mmol/HEvawcd86-079Ndi [facility] Comment on above:Performed By: #### HGBHCT #### [facility] [address] [place] [address] Dr. Lucho De LeónCO2 [Moles/Vol]29.4 mmol/JWyxtkl66.0-32.0[facility] Comment on above:Performed By: #### HGBHCT #### [facility] [address] [place] [address] Dr. Lucho De LeónCreatinine [Mass/Vol]0.80 mg/dLNormal0.70-1.30The [facility] HospitalComment on above:Performed By: #### HGBHCT #### [facility] [address] [place] [address] Dr. Lucho HerbertGFR-AF LIBYAN>60Normal>=60The [facility] HospitalComment on above:Performed By: #### HGBHCT #### [facility] [address] [place] [address] Dr. Lucho HerbertGFR-NON AF LIBYAN>60Normal>=60The [facility] HospitalComment on above:Performed By: #### HGBHCT #### [facility] [address] [place] [address] Dr. Lucho De LeónGlobulin (S) [Mass/Vol]4.0 g/dLNormalThe [facility] HospitalComment on above:Performed By: #### HGBHCT #### [facility] [address] [place] [address] Dr. Lucho De LeónGlucose [Mass/Vol]202 mg/dLCritically qbuy85-385Amf [facility] HospitalComment on above:Performed By: #### HGBHCT #### [facility] [address] [address] [address] Lucho De LeónPotassium [Moles/Vol]4.6 mmol/LNormal3.5-5.1[facility] Comment on above:Performed By: #### HGBHCT #### [facility] [address] [place] [address] Dr. Lucho De LeónProtein [Mass/Vol]7.8 g/dLNormal6.4-8.2The [facility] Comment on above:Performed By: #### HGBHCT #### [facility] [address] [address] [address] Lucho De eLónSodium [Moles/Vol]140 mmol/MYhnqud518-242Rxw [facility] Comment on above:Performed By: #### HGBHCT #### [facility] [address] [place] [address] Dr. Lucho De LeónUrea nitrogen [Mass/Vol]15.0 mg/dLNormal7.0-18.0[facility] HospitalComment on above:Performed By: #### HGBHCT #### [facility] [address] [place] [address] Dr. Lucho March nitrogen/Creatinine [Mass ratio]18.8 mg/mgNormalThe [facility] HospitalComment on above:Performed By: #### HGBHCT #### [facility] [address] [place] [address] Dr. Lucho George STRESS/REST MULTIon [id number] STRESS/REST MULTIPatient: DARIN THACKER Exam Date: 04/27/2022 : 1950 Gender:M Ordering : OLI TONYA [facility] [employer] Admission #: [id number] Family : Order #: [id number] CLICK HERE TO VIEW EXAM RADIOLOGY REPORT [...] STUDY: PERFUSION DEFECT: LOCATION: Mid-inferior. Apical inferior. [place]. SIZE: Medium (3-4 segments). SEVERITY: Mild. TYPE: [...] by: Bindu Conrad MD on 04/28/2022 at 08:01NormalThSelect Medical Specialty Hospital - CantonCBC AUTO DIFFon [id number] #0.0 103/ulNormal0.0-0.1[facility] HospitalComment on above:Performed By: #### A1C #### [facility] [address] [place] [address] Dr. Lucho De LeónBasophils/100 WBC (Bld)0.5 %Normal0.2-2.0[facility] Comment on above:Performed By: #### A1C #### [facility] [address] [place] [address] Dr. Lucho Hernandez #0.1 103/ulNormal0.0-0.7ThSelect Medical Specialty Hospital - CantonComment on above: Performed By: #### A1C #### [facility] [address] [place] [address] Dr. Lucho Herbertosinophils/100 WBC (Bld)2.0 %Normal0.9-7.0[facility] Comment on above:Performed By: #### A1C #### [facility] [address] [place] [address] Dr. Yilan ChangErythrocyte distribution width (RBC) [Ratio]15.0 %Pxqquu80.0-15.0 The [facility] HospitalComment on above:Performed By: #### A1C #### [facility] [address] [place] [address] Dr. Lucho De LeónHematocrit (Bld) [Volume fraction]39.1 %Critically low42.0-54.0 The [facility] HospitalComment on above:Performed By: #### A1C #### [facility] [address] [place] [address] Dr. Lucho De LeónHemoglobin (Bld) [Mass/Vol]12.5 g/dLCritically low14.0-18.0The [facility] HospitalComment on above:Performed By: #### A1C #### [facility] [address] [place] [address] Dr. Lucho Bhatti #0.02 10e3/ulNormal0.00-0.03The [facility] HospitalComment on above:Performed By: #### A1C #### [facility] [address] [place] [address] Dr. Lucho Bhatti %0.4 %Normal0.0-0.5The [facility] HospitalComment on above: Performed By: #### A1C #### [facility] [address] [place] [address] Dr. uLcho Fox #1.7 103/ulNormal1.2-3.8The [facility] HospitalComment on above:Performed By: #### A1C #### [facility] [address] [place] [address] Dr. Lucho Paulinohocytes/100 WBC (Bld)30.7 %Idvqxg69.5-60.0The [facility] HospitalComment on above:Performed By: #### A1C #### [facility] [address] [place] [address] Dr. Lucho AdamsUAL DIFF REQNONormalThe [facility] HospitalComment on above: Performed By: #### A1C #### [facility] [address] [place] [address] Dr. Lucho Soto (RBC) [Entitic mass]29.7 ieOiyrao75.9-34.0The [facility] HospitalComment on above:Performed By: #### A1C #### [facility] [address] [place] [address] Dr. Lucho Linton (RBC) [Mass/Vol]32.0 g/uMAogixo55.9-35.2The [facility] HospitalComment on above:Performed By: #### A1C #### [facility] [address] [address] [address] Lucho Linton (RBC) [Entitic vol]92.9 rNGvefha47.0-94.0The [facility] HospitalComment on above:Performed By: #### A1C #### [facility] [address] [place] [address] Dr. Lucho Diaz #0.5 103/ulNormal0.3-0.8The [facility] HospitalComment on above:Performed By: #### A1C #### [facility] [address] [place] [address] Dr. Lucho Fengocytes/100 WBC (Bld)9.6 %Normal1.7-12.0[facility] Comment on above:Performed By: #### A1C #### [facility] [address] [place] [address] Dr. Lucho HennessyUT #3.2 103/ulNormal1.4-6.5The [facility] HospitalComment on above:Performed By: #### A1C #### [facility] [address] [place] [address] Dr. Lucho Hennessyutrophils/100 WBC (Bld)56.8 %Bslbsq06.0-75.0The [facility] HospitalComment on above:Performed By: #### A1C #### [facility] [address] [place] [address] Dr. Lucho Maddenlet mean volume (Bld) [Entitic vol]9.2 fLCritically low 9.5-13.5The [facility] HospitalComment on above:Performed By: #### A1C #### [facility] [address] [address] [address] Lucho De LeónPLT317 103/igAurzqr593-693Wwe [facility] HospitalComment on above: Performed By: #### A1C #### [facility] [address] [place] [address] Dr. Lucho De LeónRBC4.21 106/ulCritically low4.70-6.10The [facility] HospitalComment on above:Performed By: #### A1C #### [facility] [address] [address] [address] Lucho De LeónWBC5.6 103/ulNormal4.0-11.0The [facility] HospitalComment on above: Performed By: #### A1C #### [facility] [address] [place] [address] Dr. Yepez ChangECHOCARDIO M/2D COMPLETEon [id number] M/2D COMPLETE Patient: DARIN THACKER Exam Date: 04/14/2022 : 1950 Gender:M Ordering : OLI TONYA [facility] Admission #: [id number] Family : Order #: [id number] CLICK HERE TO VIEW EXAM ECHOCARDIOGRAM REPORT [...] by: Travon Galindo M.D. on 04/14/2022 at 17:53[facility] HospitalPR LEUKOREDUCEDon [id number] and Rh group Nom (Bld)Cross Match Result Compatible Unit Blood Type O Pos Unit Number [id number] Status Information Transfused Product ID Red Blood Cells Product Code [id number] Cross Match Result Compatible Unit Blood Type O Pos Unit Number [id number] Status Information Transfused Product ID Red Blood Cells Product Code [id number] Health Clermont HospitalComment on above:Performed By: #### PRBC #### [facility] [address] [place] [address] Dr. Lucho Akers LEUKOREDUCEDCross Match Result Compatible Unit Blood Type O Pos Unit Number [id number] Status Information Transfused Product ID Red Blood Cells Product Code [id number] Health Clermont HospitalComment on above:Performed By: #### PRBC #### [facility] [address] [place] [address] Dr. Lucho Akers LEUKOREDUCEDCross Match Result Compatible Unit Blood Type O Pos Unit Number [id number] Status Information Transfused Product ID Red Blood Cells Product Code [id number] Health Clermont HospitalComeaton rapids medical center on above:Performed By: #### PRBC #### [facility] [address] [place] [address] Dr. Lucho Srivastava AUTO DIFFon [id number] #0.0 103/ulNormal0.0-0.1The [facility] HospitalComment on above:Performed By: #### CBC #### [facility] [address] [address] [address] Lucho De LeónBasophils/100 WBC (Bld)0.4 %Normal0.2-2.0[facility] Comment on above:Performed By: #### CBC #### [facility] [address] [place] [address] Dr. Lucho Hernandez #0.1 103/ulNormal0.0-0.7The [facility] HospitalComment on above: Performed By: #### CBC #### [facility] [address] [place] [address] Dr. Lucho Herbertosinophils/100 WBC (Bld)1.4 %Normal0.9-7.0[facility] Comment on above:Performed By: #### CBC #### [facility] [address] [place] [address] Dr. Lucho Herbertrythrocyte distribution width (RBC) [Ratio]16.3 %Critically high 11.0-15.0The [facility] HospitalComment on above:Performed By: #### CBC #### [facility] [address] [place] [address] Dr. Lucho De LeónHematocrit (Bld) [Volume fraction]36.2 %Critically low42.0-54.0 The [facility] HospitalComment on above:Performed By: #### CBC #### [facility] [address] [place] [address] Dr. Lucho De LeónHemoglobin (Bld) [Mass/Vol]11.3 g/dLCritically low14.0-18.0The [facility] HospitalComment on above:Performed By: #### CBC #### [facility] [address] [place] [address] Dr. Lucho Bhatti #0.04 10e3/ulCritically high0.00-0.03The [facility] Comment on above:Performed By: #### CBC #### [facility] [address] [place] [address] Dr. Lucho Bhatti %0.5 %Normal0.0-0.5The [facility] HospitalComment on above: Performed By: #### CBC #### [facility] [address] [place] [address] Dr. Lucho Fox #2.0 103/ulNormal1.2-3.8The [facility] HospitalComment on above:Performed By: #### CBC #### [facility] [address] [place] [address] Dr. Lucho Paulinohocytes/100 WBC (Bld)26.7 %Ehuxxw51.5-60.0The [facility] HospitalComment on above:Performed By: #### CBC #### [facility] [address] [place] [address] Dr. Lucho Calero DIFF REQNONormalThe [facility] HospitalComment on above: Performed By: #### CBC #### [facility] [address] [place] [address] Dr. Lucho Soto (RBC) [Entitic mass]29.7 wqFwqonu44.9-34.0The [facility] HospitalComment on above:Performed By: #### CBC #### [facility] [address] [place] [address] Dr. Lucho Linton (RBC) [Mass/Vol]31.2 g/uRPwzptw10.9-35.2The [facility] HospitalComment on above:Performed By: #### CBC #### [facility] [address] [place] [address] Dr. Lucho Viveros (RBC) [Entitic vol]95.3 fLCritically high80.0-94.0The [facility] HospitalComment on above:Performed By: #### CBC #### [facility] [address] [place] [address] Dr. Lucho Diaz #0.9 103/ulCritically high0.3-0.8The [facility] Comment on above:Performed By: #### CBC #### [facility] [address] [place] [address] Dr. Lucho Fengocytes/100 WBC (Bld)11.8 %Normal1.7-12.0The [facility] Comment on above:Performed By: #### CBC #### [facility] [address] [place] [address] Dr. Lucho Schuster #4.3 103/ulNormal1.4-6.5The [facility] HospitalComment on above:Performed By: #### CBC #### [facility] [address] [place] [address] Dr. Lucho Hennessyutrophils/100 WBC (Bld)59.2 %Mhdqbw06.0-75.0The [facility] HospitalComment on above:Performed By: #### CBC #### [facility] [address] [place] [address] Dr. Lucho Clark mean volume (Bld) [Entitic vol]9.1 fLCritically low 9.5-13.5The [facility] HospitalComment on above:Performed By: #### CBC #### [facility] [address] [place] [address] Dr. Lucho ReyesT371 103/lsJwxhkp946-897Lyr [facility] HospitalComment on above: Performed By: #### CBC #### [facility] [address] [place] [address] Dr. Lucho De LeónRBC3.80 106/ulCritically low4.70-6.10The [facility] HospitalComment on above:Performed By: #### CBC #### [facility] [address] [place] [address] Dr. Lucho De LeónWBC7.3 103/ulNormal4.0-11.0The [facility] HospitalComment on above: Performed By: #### CBC #### [facility] [address] [place] [address] Dr. Lucho Valentino CHEM 8 (BAS METB)on 02-49-7128Atxqy gap [Moles/Vol]12.4 mmol/LNormalThe [facility] HospitalComment on above:Performed By: #### A1C #### [facility] [address] [place] [address] Dr. Lucho De LeónCalcium [Mass/Vol]9.3 mg/dLNormal8.5-10.1The [facility] Comment on above:Performed By: #### A1C #### [facility] [address] [address] [address] Lucho De LeónChloride [Moles/Vol]104 mmol/QSuyvqr62-720Okv [facility] Comment on above:Performed By: #### A1C #### [facility] [address] [address] [address] Lucho De LeónCO2 [Moles/Vol]24.6 mmol/GMawsgz37.0-32.0The [facility] Comment on above:Performed By: #### A1C #### [facility] [address] [address] [address] Lucho De LeónCreatinine [Mass/Vol]0.67 mg/dLCritically low0.70-1.30The [facility] HospitalComment on above:Performed By: #### A1C #### [facility] [address] [place] [address] Dr. Yepez ChangEGFR-AF LIBYAN>60Normal>=60The [facility] HospitalComment on above:Performed By: #### A1C #### [facility] [address] [address] [address] Lucho HerbertGFR-NON AF LIBYAN>60Normal>=60The [facility] HospitalComment on above:Performed By: #### A1C #### [facility] [address] [address] [address] Lucho De LeónGlucose [Mass/Vol]144 mg/dLCritically hiku67-282Nwf [facility] HospitalComment on above:Performed By: #### A1C #### [facility] [address] [address] [address] Lucho De LeónPotassium [Moles/Vol]5.0 mmol/LNormal3.5-5.1The [facility] Comment on above:Performed By: #### A1C #### [facility] [address] [address] [address] Lucho De LeónSodium [Moles/Vol]136 mmol/PJjhdld784-652Kzs [facility] Comment on above:Performed By: #### A1C #### [facility] [address] [place] [address] Dr. Lucho March nitrogen [Mass/Vol]12.0 mg/dLNormal7.0-18.0[facility] HospitalComment on above:Performed By: #### A1C #### [facility] [address] [place] [address] Dr. Lucho March nitrogen/Creatinine [Mass ratio]17.9 mg/mgNormalThe [facility] HospitalComment on above:Performed By: #### A1C #### [facility] [address] [place] [address] Dr. Lucho Srivastava AUTO DIFFon [id number] #0.0 103/ulNormal0.0-0.1The [facility] HospitalComment on above:Performed By: #### CBC #### [facility] [address] [place] [address] Dr. Lucho De LeónBasophils/100 WBC (Bld)0.2 %Normal0.2-2.0[facility] Comment on above:Performed By: #### CBC #### [facility] [address] [place] [address] Dr. Lucho Hernandez #0.1 103/ulNormal0.0-0.7The [facility] HospitalComment on above: Performed By: #### CBC #### [facility] [address] [place] [address] Dr. Lucho Herbertosinophils/100 WBC (Bld)0.9 %Normal0.9-7.0The [facility] Comment on above:Performed By: #### CBC #### [facility] [address] [place] [address] Dr. Lucho Herbertrythrocyte distribution width (RBC) [Ratio]16.9 %Critically high 11.0-15.0The [facility] HospitalComment on above:Performed By: #### CBC #### [facility] [address] [place] [address] Dr. Lucho De LeónHematocrit (Bld) [Volume fraction]29.9 %Critically low42.0-54.0 The [facility] HospitalComment on above:Performed By: #### CBC #### [facility] [address] [place] [address] Dr. Lucho De LeónHemoglobin (Bld) [Mass/Vol]10.1 g/dLCritically low14.0-18.0The [facility] HospitalComment on above:Performed By: #### CBC #### [facility] [address] [address] [address] Lucho De LeónIG #0.10 10e3/ulCritically high0.00-0.03The [facility] Comment on above:Performed By: #### CBC #### [facility] [address] [place] [address] Dr. Lucho De LeónIG %0.9 %Critically high0.0-0.5The [facility] HospitalComment on above:Performed By: #### CBC #### [facility] [address] [place] [address] Dr. Lucho Fox #2.0 103/ulNormal1.2-3.8The [facility] HospitalComment on above:Performed By: #### CBC #### [facility] [address] [place] [address] Dr. Lucho Geronimomphocytes/100 WBC (Bld)18.3 %Critically low20.5-60.0The [facility] HospitalComment on above:Performed By: #### CBC #### [facility] [address] [place] [address] Dr. Lucho De LeónMANUAL DIFF REQNONormalThe [facility] HospitalComment on above: Performed By: #### CBC #### [facility] [address] [place] [address] Dr. Lucho Soto (RBC) [Entitic mass]30.6 haJtvksw05.9-34.0The [facility] HospitalComment on above:Performed By: #### CBC #### [facility] [address] [address] [address] Lucho LintonHC (RBC) [Mass/Vol]33.8 g/xMBwtiwp71.9-35.2The [facility] HospitalComment on above:Performed By: #### CBC #### [facility] [address] [place] [address] Dr. Lucho LintonV (RBC) [Entitic vol]90.6 tTHqlduf55.0-94.0The [facility] HospitalComment on above:Performed By: #### CBC #### [facility] [address] [place] [address] Dr. Lucho Diaz #0.9 103/ulCritically high0.3-0.8The [facility] Comment on above:Performed By: #### CBC #### [facility] [address] [place] [address] Dr. Lucho Fengocytes/100 WBC (Bld)8.2 %Normal1.7-12.0[facility] Comment on above:Performed By: #### CBC #### [facility] [address] [place] [address] Dr. Lucho Schuster #8.0 103/ulCritically high1.4-6.5ThSelect [facility] Specialty [facility] Comment on above:Performed By: #### CBC #### [facility] [address] [place] [address] Dr. Lucho Hennessyutrophils/100 WBC (Bld)71.5 %Udnnjs69.0-75.0The [facility] HospitalComment on above:Performed By: #### CBC #### [facility] [address] [place] [address] Dr. Lucho Maddenlet mean volume (Bld) [Entitic vol]9.7 fLNormal9.5-13.5The [facility] HospitalComment on above:Performed By: #### CBC #### [facility] [address] [place] [address] Dr. Lucho De LeónPLT195 103/lqIavdxr108-803Ebr [facility] HospitalComment on above: Performed By: #### CBC #### [facility] [address] [address] [address] Lucho De LeónRBC3.30 106/ulCritically low4.70-6.10The [facility] HospitalComment on above:Performed By: #### CBC #### [facility] [address] [address] [address] Lucho De LeónWBC11.1 103/ulCritically high4.0-11.0The [facility] HospitalComment on above:Performed By: #### CBC #### [facility] [address] [place] [address] Dr. Lucho De LeónPROF CHEM 8 (BAS METB)on 53-63-1363Vpbnt gap [Moles/Vol]11.8 mmol/LNormalThe [facility] HospitalComment on above:Performed By: #### CBC #### [facility] [address] [place] [address] Dr. Lucho De LeónCalcium [Mass/Vol]8.5 mg/dLNormal8.5-10.1The [facility] Comment on above:Performed By: #### CBC #### [facility] [address] [place] [address] Dr. Lucho De LeónChloride [Moles/Vol]103 mmol/PNcbero05-014Xhg [facility] Comment on above:Performed By: #### CBC #### [facility] [address] [place] [address] Dr. Lucho De LeónCO2 [Moles/Vol]25.8 mmol/YVdxakw75.0-32.0The [facility] Comment on above:Performed By: #### CBC #### [facility] [address] [place] [address] Dr. Lucho De LeónCreatinine [Mass/Vol]0.56 mg/dLCritically low0.70-1.30The [facility] HospitalComment on above:Performed By: #### CBC #### [facility] [address] [place] [address] Dr. Yepez ChangEGFR-AF LIBYAN>60Normal>=60The [facility] HospitalComment on above:Performed By: #### CBC #### [facility] [address] [address] [address] Lucho HerbertGFR-NON AF LIBYAN>60Normal>=60The [facility] Southment on above:Performed By: #### CBC #### [facility] [address] [address] [address] Lucho De LeónGlucose [Mass/Vol]166 mg/dLCritically bvki77-746Byd [facility] HospitalComment on above:Performed By: #### CBC #### [facility] [address] [address] [address] Lucho De LeónPotassium [Moles/Vol]3.6 mmol/LNormal3.5-5.1[facility] Comment on above:Performed By: #### CBC #### [facility] [address] [address] [address] Lucho De LeónSodium [Moles/Vol]137 mmol/KGgivfj576-580Rjz [facility] Comment on above:Performed By: #### CBC #### [facility] [address] [address] [address] Lucho De LeónUrea nitrogen [Mass/Vol]6.0 mg/dLCritically low7.0-18.0The [facility] HospitalComment on above:Performed By: #### CBC #### [facility] [address] [address] [address] Lucho De LeónUrea nitrogen/Creatinine [Mass ratio]10.7 mg/mgNormalThe [facility] HospitalComment on above:Performed By: #### CBC #### [facility] [address] [place] [address] Dr. Lucho MetcalfC AUTO DIFFon [id number] #0.0 103/ulNormal0.0-0.1The [facility]Come[facility] on above:Performed By: #### A1C #### [facility] [address] [place] [address] Dr. Lucho De LeónBasophils/100 WBC (Bld)0.3 %Normal0.2-2.0The [facility] Comment on above:Performed By: #### A1C #### [facility] [address] [address] [address] Lucho Hernandez #0.1 103/ulNormal0.0-0.7The [facility] HospitalComment on above: Performed By: #### A1C #### [facility] [address] [place] [address] Dr. Lucho Herbertosinophils/100 WBC (Bld)0.8 %Critically low0.9-7.0The [facility] HospitalComment on above:Performed By: #### A1C #### [facility] [address] [place] [address] Dr. Lucho Herbertrythrocyte distribution width (RBC) [Ratio]16.9 %Critically high 11.0-15.0The [facility] HospitalComment on above:Performed By: #### A1C #### [facility] [address] [place] [address] Dr. Lucho De LeónHematocrit (Bld) [Volume fraction]23.0 %Critically low42.0-54.0 The [facility] HospitalComment on above:Performed By: #### A1C #### [facility] [address] [place] [address] Dr. Lucho De LeónHemoglobin (Bld) [Mass/Vol]7.6 g/dLCritically low14.0-18.0The [facility] HospitalComment on above:Performed By: #### A1C #### [facility] [address] [place] [address] Dr. Lucho Bhatti #0.10 10e3/ulCritically high0.00-0.03The [facility] Comment on above:Performed By: #### A1C #### [facility] [address] [place] [address] Dr. Lucho Bhatti %1.3 %Critically high0.0-0.5The [facility] HospitalComment on above:Performed By: #### A1C #### [facility] [address] [place] [address] Dr. Lucho Paulino #2.4 103/ulNormal1.2-3.8The [facility] HospitalComment on above:Performed By: #### A1C #### [facility] [address] [address] [address] Lucho Geronimomphocytes/100 WBC (Bld)32.1 %Stalcm22.5-60.0The [facility] HospitalComment on above:Performed By: #### A1C #### [facility] [address] [place] [address] Dr. Lucho Calero DIFF REQNONormalThe [facility] HospitalComment on above: Performed By: #### A1C #### [facility] [address] [place] [address] Dr. Lucho Linton (RBC) [Entitic mass]30.9 duMakwdo13.9-34.0The [facility] HospitalComment on above:Performed By: #### A1C #### [facility] [address] [place] [address] Dr. Lucho Linton (RBC) [Mass/Vol]33.0 g/iWKdxjid48.9-35.2The [facility] HospitalComment on above:Performed By: #### A1C #### [facility] [address] [place] [address] Dr. Lucho Linton (RBC) [Entitic vol]93.5 kDQfeukg29.0-94.0The [facility] HospitalComment on above:Performed By: #### A1C #### [facility] [address] [place] [address] Dr. Lucho Diaz #0.8 103/ulNormal0.3-0.8The [facility] HospitalComment on above:Performed By: #### A1C #### [facility] [address] [place] [address] Dr. Lucho Fengocytes/100 WBC (Bld)11.3 %Normal1.7-12.0The [facility] Comment on above:Performed By: #### A1C #### [facility] [address] [place] [address] Dr. Lucho Schuster #4.0 103/ulNormal1.4-6.5The [facility] HospitalComment on above:Performed By: #### A1C #### [facility] [address] [place] [address] Dr. Lucho De LeónNeutrophils/100 WBC (Bld)54.2 %Hhaxla99.0-75.0The [facility] HospitalComment on above:Performed By: #### A1C #### [facility] [address] [place] [address] Dr. Lucho De LeónPlatelet mean volume (Bld) [Entitic vol]9.7 fLNormal9.5-13.5The [facility] HospitalComment on above:Performed By: #### A1C #### [facility] [address] [place] [address] Dr. Lucho De LeónPLT155 103/ldScdevj981-916Ctf [facility] HospitalComment on above: Performed By: #### A1C #### [facility] [address] [place] [address] Dr. Lucho De LeónRBC2.46 106/ulCritically low4.70-6.10The [facility] HospitalComment on above:Performed By: #### A1C #### [facility] [address] [place] [address] Dr. Lucho De LeónWBC7.4 103/ulNormal4.0-11.0The [facility] HospitalComment on above: Performed By: #### A1C #### [facility] [address] [place] [address] Dr. Lucho De LeónHEMOGLOBIN AND HEMATOCRITon 01-24-5210Oyoganlydu (Bld) [Volume fraction]27.6 %Critically low42.0-54.0The [facility] HospitalComment on above: Performed By: #### A1C #### [facility] [address] [place] [address] Dr. Lucho De LeónHemoglobin (Bld) [Mass/Vol]9.0 g/dLCritically low14.0-18.0The [facility] HospitalComment on above:Performed By: #### A1C #### [facility] [address] [place], [place] [id number] Dr. Lucho De LeónPOINT OF CARE GLUCOSEon 76-05-1387Kifivmx [Mass/Vol]135 mg/dL Critically wqke07-715Wzw [facility] HospitalComment on above:Performed By: #### MALBR #### [facility] [address] [address] [address] Lucho De LeónGlucose [Mass/Vol]159 mg/dLCritically lnla86-920Sei [facility] HospitalComment on above:Performed By: #### MALBR #### [facility] [address] [place] [address] Dr. Lucho De LeónGlucose [Mass/Vol]225 mg/dLCritically pbmz86-036Ytt [facility] HospitalComment on above:Performed By: #### CVDTBH #### [facility] [address] [place] [address] Dr. Lucho De LeónGlucose [Mass/Vol]181 mg/dLCritically oyvf54-248Zst [facility] HospitalComment on above:Performed By: #### POCGLUC #### [facility] [address] [place] [address] Dr. Lucho De LeónPROF CHEM 8 (BAS METB)on 02-20-4239Joiip gap [Moles/Vol]9.5 mmol/LNormalBlanchard Valley Health System [facility] HospitalComment on above:Performed By: #### A1C #### [facility] [address] [place] [address] Dr. Lucho De LeónCalcium [Mass/Vol]7.7 mg/dLCritically low8.5-10.1The [facility] HospitalComment on above:Performed By: #### A1C #### [facility] [address] [place] [address] Dr. Lucho De LeónChloride [Moles/Vol]107 mmol/RWclsom30-286Bdv [facility] Comment on above:Performed By: #### A1C #### [facility] [address] [place] [address] Dr. Lucho De LeónCO2 [Moles/Vol]23.7 mmol/NZyzxkf18.0-32.0The [facility] Comment on above:Performed By: #### A1C #### [facility] [address] [address] [address] Lucho De LeónCreatinine [Mass/Vol]0.58 mg/dLCritically low0.70-1.30The [facility] HospitalComment on above:Performed By: #### A1C #### [facility] [address] [address] [address] Yepez ChangEGFR-AF LIBYAN>60Normal>=60The [facility] HospitalComment on above:Performed By: #### A1C #### [facility] [address] [address] [address] Yepez ChangEGFR-NON AF LIBYAN>60Normal>=60The [facility] HospitalComment on above:Performed By: #### A1C #### [facility] [address] [place] [address] Dr. Lucho De LeónGlucose [Mass/Vol]125 mg/dLCritically ethu71-247Wqn [facility] HospitalComment on above:Performed By: #### A1C #### [facility] [address] [place] [address] Dr. Lucho De LeónPotassium [Moles/Vol]4.2 mmol/LNormal3.5-5.1The [facility] Comment on above:Performed By: #### A1C #### [facility] [address] [place] [address] Dr. Lucho De LeónSodium [Moles/Vol]136 mmol/CRzsijc413-653Ikf [facility] Comment on above:Performed By: #### A1C #### [facility] [address] [place] [address] Dr. Lucho De LeónUrea nitrogen [Mass/Vol]15.0 mg/dLNormal7.0-18.0The [facility] HospitalComment on above:Performed By: #### A1C #### [facility] [address] [place] [address] Dr. Lucho March nitrogen/Creatinine [Mass ratio]25.9 mg/mgNormalThe [facility] HospitalComment on above:Performed By: #### A1C #### [facility] [address] [address] [address] Lucho Srivastava AUTO DIFFon 19-26-5245QTRO #0.0 103/ulNormal0.0-0.1The [facility]ment on above:Performed By: #### BMP #### [facility] [address] [place] [address] Dr. Lucho De LeónBasophils/100 WBC (Bld)0.3 %Normal0.2-2.0The [facility] Comment on above:Performed By: #### BMP #### [facility] [address] [place] [address] Dr. Lucho Hernandez #0.0 103/ulNormal0.0-0.7The [facility] HospitalComment on above: Performed By: #### BMP #### [facility] [address] [place] [address] Dr. Lucho Herbertosinophils/100 WBC (Bld)0.4 %Critically low0.9-7.0The [facility] HospitalComment on above:Performed By: #### BMP #### [facility] [address] [place] [address] Dr. Lucho Herbertrythrocyte distribution width (RBC) [Ratio]15.8 %Critically high 11.0-15.0The [facility] HospitalComment on above:Performed By: #### BMP #### [facility] [address] [place] [address] Dr. Lucho De LeónHematocrit (Bld) [Volume fraction]23.6 %Critically low42.0-54.0 The [facility] HospitalComment on above:Performed By: #### BMP #### [facility] [address] [place] [address] Dr. Lucho De LeónHemoglobin (Bld) [Mass/Vol]7.9 g/dLCritically low14.0-18.0The [facility] HospitalComment on above:Performed By: #### BMP #### [facility] [address] [place] [address] Dr. Lucho Bhatti #0.17 10e3/ulCritically high0.00-0.03The [facility] Comment on above:Performed By: #### BMP #### [facility] [address] [address] [address] Lucho Bhatti %1.6 %Critically high0.0-0.5The [facility] HospitalComment on above:Performed By: #### BMP #### [facility] [address] [address] [address] Lucho Fox #2.8 103/ulNormal1.2-3.8The [facility] HospitalComment on above:Performed By: #### BMP #### [facility] [address] [address] [address] Lucho Paulinohocytes/100 WBC (Bld)27.0 %Tcolnj44.5-60.0The [facility] HospitalComment on above:Performed By: #### BMP #### [facility] [address] [place] [address] Dr. Lucho Calero DIFF REQNONormalThe [facility] HospitalComment on above: Performed By: #### BMP #### [facility] [address] [address] [address] Lucho Soto (RBC) [Entitic mass]30.3 fvAwkoty36.9-34.0The [facility] HospitalComment on above:Performed By: #### BMP #### [facility] [address] [address] [address] Lucho Linton (RBC) [Mass/Vol]33.5 g/iQYivuxg39.9-35.2The [facility] HospitalComment on above:Performed By: #### BMP #### [facility] [address] [place] [address] Dr. Lucho Linton (RBC) [Entitic vol]90.4 rOZbxlqu73.0-94.0The [facility] HospitalComment on above:Performed By: #### BMP #### [facility] [address] [address] [address] Lucho Diaz #1.2 103/ulCritically high0.3-0.8The [facility] Comment on above:Performed By: #### BMP #### [facility] [address] [place] [address] Dr. Lucho Fengocytes/100 WBC (Bld)11.6 %Normal1.7-12.0The [facility] Comment on above:Performed By: #### BMP #### [facility] [address] [place] [address] Dr. Lucho HennessyUT #6.2 103/ulNormal1.4-6.5The [facility] HospitalComment on above:Performed By: #### BMP #### [facility] [address] [place] [address] Dr. Lucho Hennessyutrophils/100 WBC (Bld)59.1 %Haeehi66.0-75.0The [facility] HospitalComment on above:Performed By: #### BMP #### [facility] [address] [place] [address] Dr. Lucho De LeónPlatelet mean volume (Bld) [Entitic vol]10.1 fLNormal9.5-13.5The [facility] HospitalComment on above:Performed By: #### BMP #### [facility] [address] [place] [address] Dr. Lucho De LeónPLT166 103/pcQaqwve169-933Cpk [facility] HospitalComment on above: Performed By: #### BMP #### [facility] [address] [place] [address] Dr. Lucho De LeónRBC2.61 106/ulCritically low4.70-6.10The [facility] HospitalComment on above:Performed By: #### BMP #### [facility] [address] [place] [address] Dr. Lucho De LeónWBC10.5 103/ulNormal4.0-11.0The [facility] HospitalComment on above:Performed By: #### BMP #### [facility] [address] [place] [address] Dr. Lucho De LeónHEMOGLOBIN AND HEMATOCRITon 85-47-9641Epfbtpwywq (Bld) [Volume fraction]26.4 %Critically low42.0-54.0The [facility] HospitalComment on above: Performed By: #### HGBHCT #### [facility] [address] [place] [address] Dr. Lucho De LeónHemoglobin (Bld) [Mass/Vol]8.8 g/dLCritically low14.0-18.0The [facility] HospitalComment on above:Performed By: #### HGBHCT #### [facility] [address] [place] [address] Dr. Lucho De LeónHematocrit (Bld) [Volume fraction]20.9 %Critically low42.0-54.0 The [facility] HospitalComment on above:Performed By: #### CVDTBH #### [facility] [address] [place] [address] Dr. Lucho De LeónHemoglobin (Bld) [Mass/Vol]7.1 g/dLCritically low14.0-18.0The [facility] HospitalComment on above:Performed By: #### CVDTBH #### [facility] [address] [place] [address] Dr. Lucho De LeónOPT[facility] GLUCOSEon 15-43-0497Ejiwjzy [Mass/Vol]132 mg/dL Critically sqkk99-274OpjBlanchard Valley Health System [facility] HospitalComment on above:Performed By: #### CBC #### [facility] [address] [place] [address] Dr. Lucho De LeónGlucose [Mass/Vol]198 mg/dLCritically azbi87-742Vzd [facility] HospitalComment on above:Performed By: #### A1C #### [facility] [address] [place] [address] Dr. Lucho De LeónGlucose [Mass/Vol]82 mg/bSExubwa72-072BjdBlanchard Valley Health System [facility] Comment on above:Performed By: #### CBC #### [facility] [address] [place] [address] Dr. Lucho De LeónGlucose [Mass/Vol]85 mg/rFPmwgmf12-178XmaBlanchard Valley Health System [facility] Comment on above:Performed By: #### CVDTBH #### [facility] [address] [address] [address] Lucho De LeónGlucose [Mass/Vol]115 mg/dLCritically hfvv37-661Tmo [facility] HospitalComment on above:Performed By: #### A1C #### [facility] [address] [address] [address] Lucho De eLónPROF CHEM 8 (BAS METB)on 14-40-9160Fjmtm gap [Moles/Vol]10.6 mmol/LNormalThe [facility] HospitalComment on above:Performed By: #### MALBR #### [facility] [address] [address] [address] Lucho De LeónCalcium [Mass/Vol]8.0 mg/dLCritically low8.5-10.1The [facility] HospitalComment on above:Performed By: #### MALBR #### [facility] [address] [address] [address] Lucho De LeónChloride [Moles/Vol]108 mmol/LCritically hdzc34-897Tlr [facility] HospitalComment on above:Performed By: #### MALBR #### [facility] [address] [address] [address] Lucho De LeónCO2 [Moles/Vol]23.6 mmol/VJdvznr94.0-32.0The [facility] Comment on above:Performed By: #### MALBR #### [facility] [address] [address] [address] Lucho De LeónCreatinine [Mass/Vol]0.54 mg/dLCritically low0.70-1.30The [facility] HospitalComment on above:Performed By: #### MALBR #### [facility] [address] [address] [address] Yepez ChangEGFR-AF LIBYAN>60Normal>=60The [facility] HospitalComment on above:Performed By: #### MALBR #### [facility] [address] [address] [address] Lucho HerbertGFR-NON AF LIBYAN>60Normal>=60The [facility] HospitalComment on above:Performed By: #### MALBR #### [facility] [address] [address] [address] Lucho De LeónGlucose [Mass/Vol]126 mg/dLCritically nfrz08-565Eap [facility] HospitalComment on above:Performed By: #### MALBR #### [facility] [address] [address] [address] Lucho De LeónPotassium [Moles/Vol]4.2 mmol/LNormal3.5-5.1The [facility] Comment on above:Performed By: #### MALBR #### [facility] [address] [address] [address] Lucho De LeónSodium [Moles/Vol]138 mmol/LCggahn085-167Dnj [facility] Comment on above:Performed By: #### MALBR #### [facility] [address] [address] [address] Lucho De LeónUrea nitrogen [Mass/Vol]28.0 mg/dLCritically high7.0-18.0The [facility] HospitalComment on above:Performed By: #### MALBR #### [facility] [address] [place] [address] Dr. Lucho March nitrogen/Creatinine [Mass ratio]51.9 mg/mgNormalThe [facility] HospitalComment on above:Performed By: #### MALBR #### [facility] [address] [address] [address] Lucho Srivastava W MANUAL DIFFon 94-12-0048IUKWRJMY LYMPH #NormalThe [facility] HospitalComment on above:Performed By: #### CVDTBH #### [facility] [address] [address] [address] Lucho De LeónATYPICAL LYMPH %NormalThe [facility] HospitalComment on above: Performed By: #### CVDTBH #### [facility] [address] [place] [address] Dr. Lucho Faye #0.4 103/ulCritically high0.0-0.3The [facility] Comment on above:Performed By: #### CVDTBH #### [facility] [address] [address] [address] Lucho Faye %3 %Normal0-5The [facility] HospitalComment on above:Performed By: #### CVDTBH #### [facility] [address] [address] [address] Lucho Del Angel #0.00 103/ulNormal0.00-0.10The [facility] HospitalComment on above:Performed By: #### CVDTBH #### [facility] [address] [address] [address] Lucho Del Angel %0.0 %Critically low0.2-2.0The [facility] HospitalComment on above:Performed By: #### CVDTBH #### [facility] [address] [address] [address] Lucho Elam #NormalThe [facility] HospitalComment on above:Performed By: #### CVDTBH #### [facility] [address] [address] [address] Lucho De LeónBLAST %NormalThe [facility] HospitalComment on above:Performed By: #### CVDTBH #### [facility] [address] [address] [address] Lucho De LeónCORRECTED WBCNormal4.0-11.0The [facility] HospitalComeaton [facility] on above: Performed By: #### CVDTBH #### [facility] [address] [address] [address] Lucho Mead #0.00 103/ulNormal0.00-0.70The [facility] HospitalComment on above:Performed By: #### CVDTBH #### [facility] [address] [address] [address] Lucho Mead%0.0 %Critically low0.9-7.0The [facility] HospitalComment on above:Performed By: #### CVDTBH #### [facility] [address] [address] [address] Lucho De LeónHCT25.1 %Critically low42.0-54.0The [facility] HospitalComment on above:Performed By: #### CVDTBH #### [facility] [address] [address] [address] Lucho De LeónB8.5 g/dlCritically low14.0-18.0The [facility] HospitalComment on above:Performed By: #### CVDTBH #### [facility] [address] [address] [address] Lucho Peñaloza #2.10 103/ulNormal1.20-3.80The [facility] HospitalComment on above:Performed By: #### CVDTBH #### [facility] [address] [place] [address] Dr. Lucho Peñaloza%15.0 %Critically low20.5-60.0The [facility] HospitalComment on above:Performed By: #### CVDTBH #### [facility] [address] [place] [address] Dr. Lucho LintonH30.9 dnTuogss05.9-34.0The [facility] HospitalComment on above: Performed By: #### CVDTBH #### [facility] [address] [place] [address] Dr. Lucho LintonHC33.9 g/pmFzjgfu24.9-35.2The [facility] HospitalCome[facility] on above:Performed By: #### CVDTBH #### [facility] [address] [place] [address] Dr. Lucho LintonV91.3 bBFlvddz68.0-94.0The [facility] HospitalComment on above: Performed By: #### CVDTBH #### [facility] [address] [place] [address] Dr. Lucho GomezOCYTE #NormalThe [facility] HospitalComeaton rapids [facility] on above: Performed By: #### CVDTBH #### [facility] [address] [place] [address] Dr. Lucho GomezOCYTE %NormalThe [facility] HospitalComment on above: Performed By: #### CVDTBH #### [facility] [address] [address] [address] Lucho Blankenship#0.98 103/ulCritically high0.30-0.80The [facility] Comment on above:Performed By: #### CVDTBH #### [facility] [address] [address] [address] Lucho Blankenship%7.0 %Normal1.7-12.0The [facility] HospitalComment on above: Performed By: #### CVDTBH #### [facility] [address] [address] [address] Lucho De LeónMPV10.7 fLNormal9.5-13.5The [facility] HospitalComment on above: Performed By: #### CVDTBH #### [facility] [address] [place] [address] Dr. Lucho Chua #NormalThe [facility] HospitalComment on above:Performed By: #### CVDTBH #### [facility] [address] [place] [address] Dr. Lucho BojorquezOCYTE %NormalThe [facility] HospitalComment on above:Performed By: #### CVDTBH #### [facility] [address] [place] [address] Dr. Lucho StewardAcrswMVOA8NqjnsqTuy [facility] HospitalComment on above:Performed By: #### CVDTBH #### [facility] [address] [place] [address] Dr. Lucho De LeónPLT176 103/mpKjdpaq058-541Svx [facility] HospitalComment on above: Performed By: #### CVDTBH #### [facility] [address] [address] [address] Lucho De LeónRBC2.75 106/ulCritically low4.70-6.10The [facility] HospitalComment on above:Performed By: #### CVDTBH #### [facility] [address] [place] [address] Dr. Lucho De LeónRDW14.2 %Bijqbg66.0-15.0The [facility] HospitalComment on above: Performed By: #### CVDTBH #### [facility] [address] [place] [address] Dr. Lucho Brito #10.50 103/ulCritically high1.40-6.50The [facility] Comment on above:Performed By: #### CVDTBH #### [facility] [address] [place] [address] Dr. Lucho Brito %75.0 %Mpukjk40.0-75.0The [facility] HospitalComment on above: Performed By: #### CVDTBH #### [facility] [address] [place] [address] Dr. Lucho De LeónWBC14.0 103/ulCritically high4.0-11.0The [facility] HospitalComment on above:Performed By: #### CVDTBH #### [facility] [address] [place] [address] Dr. Lucho De LeónHEMOGLOBIN AND HEMATOCRITon 07-43-5537Tswwjwyfjp (Bld) [Volume fraction]24.4 %Critically low42.0-54.0The [facility] HospitalComment on above: Performed By: #### HGBHCT #### [facility] [address] [place] [address] Dr. Lucho De LeónHemoglobin (Bld) [Mass/Vol]8.3 g/dLCritically low14.0-18.0The [facility] HospitalComment on above:Performed By: #### HGBHCT #### [facility] [address] [place] [address] Dr. Lucho De LeónPOINT OF CARE GLUCOSEon 99-98-8835Btuvioj [Mass/Vol]222 mg/dL Critically gquo93-561Pgv [facility] HospitalComment on above:Performed By: #### BMP #### [facility] [address] [place] [address] Dr. Lucho De LeónGlucose [Mass/Vol]330 mg/dLCritically oafy46-692Wva [facility] HospitalComment on above:Performed By: #### HGBHCT #### [facility] [address] [place] [address] Dr. Lucho De LeónGlucose [Mass/Vol]357 mg/dLCritically cyos91-536Wcn [facility] HospitalComment on above:Performed By: #### A1C #### [facility] [address] [place] [address] Dr. Lucho De LeónGlucose [Mass/Vol]257 mg/dLCritically yynz61-968Xlf [facility] HospitalComment on above:Performed By: #### MALBR #### [facility] [address] [place] [address] Dr. Lucho De LeónGlucose [Mass/Vol]330 mg/dLCritically exuu66-852Aho [facility] HospitalComment on above:Performed By: #### CVDTBH #### [facility] [address] [place] [address] Dr. Lucho De LeónPROF CHEM 8 (BAS METB)on 02-18-8363Yxcno gap [Moles/Vol]15.3 mmol/LNormalThe [facility] HospitalComment on above:Performed By: #### BMP #### [facility] [address] [place] [address] Dr. Lucho De LeónCalcium [Mass/Vol]7.9 mg/dLCritically low8.5-10.1The [facility] HospitalComment on above:Performed By: #### BMP #### [facility] [address] [place] [address] Dr. Lucho De LeónChloride [Moles/Vol]106 mmol/KKtbijh70-535Olq [facility] Comment on above:Performed By: #### BMP #### [facility] [address] [place] [address] Dr. Lucho De LeónCO2 [Moles/Vol]20.9 mmol/LCritically low21.0-32.0The [facility] HospitalComment on above:Performed By: #### BMP #### [facility] [address] [place] [address] Dr. Lucho De LeónCreatinine [Mass/Vol]0.84 mg/dLNormal0.70-1.30The [facility] HospitalComment on above:Performed By: #### BMP #### [facility] [address] [place] [address] Dr. Yepez ChangEGFR-AF LIBYAN>60Normal>=60The [facility] HospitalComment on above:Performed By: #### BMP #### [facility] [address] [place] [address] Dr. Lucho HerbertGFR-NON AF LIBYAN>60Normal>=60The [facility] HospitalComment on above:Performed By: #### BMP #### [facility] [address] [address] [address] Lucho De LeónGlucose [Mass/Vol]275 mg/dLCritically zlih16-612Tkx [facility] HospitalComment on above:Performed By: #### BMP #### [facility] [address] [place] [address] Dr. Lucho De LeónPotassium [Moles/Vol]5.2 mmol/LCritically high3.5-5.1The [facility] HospitalComment on above:Performed By: #### BMP #### [facility] [address] [place] [address] Dr. Lucho De LeónSodium [Moles/Vol]137 mmol/KPbyayu271-363Xiw [facility] Comment on above:Performed By: #### BMP #### [facility] [address] [place] [address] Dr. Lucho De LeónUrea nitrogen [Mass/Vol]57.0 mg/dLCritically high7.0-18.0The [facility] HospitalComment on above:Performed By: #### BMP #### [facility] [address] [place] [address] Dr. Lucho March nitrogen/Creatinine [Mass ratio]67.9 mg/mgNoTuscarawas HospitalComment on above:Performed By: #### BMP #### [facility] [address] [place] [address] Dr. Lucho De LeónTYPE AND SCREENon 30-14-5865YKVU AND SCREENNegativeMercy Health Clermont HospitalComment on above:Performed By: #### MALBR #### [facility] [address] [place] [address] Dr. Lucho Finney RH RETYPEon 29-71-0804ZAV and Rh group Nom (Bld)DONENormalThe [facility] HospitalComment on above:Performed By: #### CVDTBH #### [facility] [address] [place] [address] Dr. Lucho De LeónAMYLASEon 01-92-1662Nqmwynv [Catalytic activity/Vol]34 U/LNormal 25-115The [facility] HospitalComment on above:Performed By: #### CBC #### [facility] [address] [place] [address] Dr. Lucho MetcalfC AUTO DIFFon 84-36-0915UKTQ #0.0 103/ulNormal0.0-0.1The [facility] Southment on above:Performed By: #### CBC #### [facility] [address] [place] [address] Dr. Lucho De LeónBasophils/100 WBC (Bld)0.3 %Normal0.2-2.0[facility] Comment on above:Performed By: #### CBC #### [facility] [address] [place] [address] Dr. Lucho Hernandez #0.0 103/ulNormal0.0-0.7The [facility] Southment on above: Performed By: #### CBC #### [facility] [address] [place] [address] Dr. Lucho Herbertosinophils/100 WBC (Bld)0.3 %Critically low0.9-7.0The [facility] Southment on above:Performed By: #### CBC #### [facility] [address] [place] [address] Dr. Lucho Herbertrythrocyte distribution width (RBC) [Ratio]13.9 %Imlbph54.0-15.0 [facility] Hospitalment on above:Performed By: #### CBC #### [facility] [address] [place] [address] Dr. Lucho De LeónHematocrit (Bld) [Volume fraction]30.5 %Critically low42.0-54.0 The [facility] HospitalComment on above:Performed By: #### CBC #### [facility] [address] [place] [address] Dr. Lucho De LeónHemoglobin (Bld) [Mass/Vol]10.0 g/dLCritically low14.0-18.0The [facility] HospitalComment on above:Performed By: #### CBC #### [facility] [address] [place] [address] Dr. Lucho Bhatti #0.12 10e3/ulCritically high0.00-0.03The [facility] Comment on above:Performed By: #### CBC #### [facility] [address] [place] [address] Dr. Lucho Bhatti %1.0 %Critically high0.0-0.5The [facility] HospitalComment on above:Performed By: #### CBC #### [facility] [address] [place] [address] Dr. Lucho Fox #1.4 103/ulNormal1.2-3.8The [facility] HospitalComment on above:Performed By: #### CBC #### [facility] [address] [place] [address] Dr. Lucho Paulinohocytes/100 WBC (Bld)12.5 %Critically low20.5-60.0The [facility] HospitalComment on above:Performed By: #### CBC #### [facility] [address] [place] [address] Dr. Lucho AdamsUAL DIFF REQNONormalThe [facility] HospitalComment on above: Performed By: #### CBC #### [facility] [address] [place] [address] Dr. Lucho Soto (RBC) [Entitic mass]31.2 ocFnrihc94.9-34.0The [facility] HospitalComment on above:Performed By: #### CBC #### [facility] [address] [place] [address] Dr. Lucho Linton (RBC) [Mass/Vol]32.8 g/fXOgskuq95.9-35.2The [facility] HospitalComment on above:Performed By: #### CBC #### [facility] [address] [place] [address] Dr. Lucho Viveros (RBC) [Entitic vol]95.0 fLCritically high80.0-94.0The [facility] HospitalComment on above:Performed By: #### CBC #### [facility] [address] [place] [address] Dr. Lucho Diaz #0.8 103/ulNormal0.3-0.8The [facility] HospitalComment on above:Performed By: #### CBC #### [facility] [address] [place] [address] Dr. Lucho Fengocytes/100 WBC (Bld)6.9 %Normal1.7-12.0[facility] Comment on above:Performed By: #### CBC #### [facility] [address] [place] [address] Dr. Lucho Schuster #9.0 103/ulCritically high1.4-6.5The [facility] Comment on above:Performed By: #### CBC #### [facility] [address] [place] [address] Dr. Lucoh Hennessyutrophils/100 WBC (Bld)79.0 %Critically high43.0-75.0The [facility] HospitalComment on above:Performed By: #### CBC #### [facility] [address] [place] [address] Dr. Lucho Maddenlet mean volume (Bld) [Entitic vol]10.2 fLNormal9.5-13.5The [facility] HospitalComment on above:Performed By: #### CBC #### [facility] [address] [place] [address] Dr. Lucho ReyesT226 103/naTrxjkg398-154Zmg [facility] HospitalComment on above: Performed By: #### CBC #### [facility] [address] [place] [address] Dr. Lucho De LeónRBC3.21 106/ulCritically low4.70-6.10The [facility] HospitalComment on above:Performed By: #### CBC #### [facility] [address] [place] [address] Dr. Lucho EscotoBC11.4 103/ulCritically high4.0-11.0The [facility] HospitalComment on above:Performed By: #### CBC #### [facility] [address] [place] [address] Dr. Lucho Srivastava W MANUAL DIFFon 64-35-3087AHZYSTZQ LYMPH #NormalMiddletown Hospital HospitalComment on above:Performed By: #### MALBR #### [facility] [address] [place] [address] Dr. Lucho GiraldoYPICAL LYMPH %NormalThe [facility] HospitalComment on above: Performed By: #### MALBR #### [facility] [address] [place] [address] Dr. Lucho Faye #0.3 103/ulNormal0.0-0.3The [facility] HospitalComment on above:Performed By: #### MALBR #### [facility] [address] [place] [address] Dr. Lucho Faye %2 %Normal0-5The [facility] HospitalComment on above:Performed By: #### MALBR #### [facility] [address] [place] [address] Dr. Lcuho Del Angel #0.00 103/ulNormal0.00-0.10The [facility] HospitalComment on above:Performed By: #### MALBR #### [facility] [address] [place] [address] Dr. Lucho Del Angel %0.0 %Critically low0.2-2.0The [facility] HospitalComment on above:Performed By: #### MALBR #### [facility] [address] [place] [address] Dr. Lucho Elam #NormalMiddletown Hospital HospitalComment on above:Performed By: #### MALBR #### [facility] [address] [address] [address] Lucho De LeónBLAST %NormalThe [facility] HospitalComment on above:Performed By: #### MALBR #### [facility] [address] [place] [address] Dr. Lucho De LeónCORRECTED WBCNormal4.0-11.0The [facility] HospitalComment on above: Performed By: #### MALBR #### [facility] [address] [place] [address] Dr. Lucho Mead #0.00 103/ulNormal0.00-0.70The [facility] HospitalComment on above:Performed By: #### MALBR #### [facility] [address] [place] [address] Dr. Lucho Mead%0.0 %Critically low0.9-7.0The [facility] HospitalComment on above:Performed By: #### MALBR #### [facility] [address] [place] [address] Dr. Lucho De LeónHCT20.0 %Critically low42.0-54.0The [facility] HospitalComment on above:Performed By: #### MALBR #### [facility] [address] [place] [address] Dr. Lucho De LeónHGB6.7 g/dlCritically low14.0-18.0The [facility] HospitalCome[facility] on above:Performed By: #### MALBR #### [facility] [address] [place] [address] Dr. Lucho Peñaloza #2.53 103/ulNormal1.20-3.80The [facility] HospitalCome[facility] on above:Performed By: #### MALBR #### [facility] [address] [place] [address] Dr. Lucho Peñaloza%17.0 %Critically low20.5-60.0The [facility] HospitalComment on above:Performed By: #### MALBR #### [facility] [address] [place] [address] Dr. Lucho De LeónMCH30.6 xqZivrgn90.9-34.0The [facility] HospitalComment on above: Performed By: #### MALBR #### [facility] [address] [address] [address] Lucho LintonHC33.5 g/muHkkfuq96.9-35.2The [facility] HospitalComment on above:Performed By: #### MALBR #### [facility] [address] [address] [address] Lucho LintonV91.3 rLGfdzgx55.0-94.0The [facility] HospitalComment on above: Performed By: #### MALBR #### [facility] [address] [place] [address] Dr. Lucho Lau #NormalThe [facility] HospitalComment on above: Performed By: #### MALBR #### [facility] [address] [place] [address] Dr. Lucho Lau %NormalThe [facility] HospitalComment on above: Performed By: #### MALBR #### [facility] [address] [place] [address] Dr. Lucho Blankenship#0.00 103/ulCritically low0.30-0.80The [facility] on above:Performed By: #### MALBR #### [facility] [address] [place] [address] Dr. Lucho Blankenship%0.0 %Critically low1.7-12.0The [facility] HospitalComment on above:Performed By: #### MALBR #### [facility] [address] [place] [address] Dr. Lucho GilliamV10.9 fLNormal9.5-13.5The [facility] HospitalComment on above: Performed By: #### MALBR #### [facility] [address] [place] [address] Dr. Lucho Chua #NormalThe [facility] HospitalComment on above:Performed By: #### MALBR #### [facility] [address] [place] [address] Dr. Lucho Chua %NormalBlanchard Valley Health System [facility] HospitalComment on above:Performed By: #### MALBR #### [facility] [address] [address] [address] Lucho StewardTuyujZZBD5XizdioCyw [facility] HospitalComment on above:Performed By: #### MALBR #### [facility] [address] [place] [address] Dr. Lucho De LeónPLT214 103/glNllova290-479Jkr [facility] HospitalComment on above: Result Comment: Previously reported as: 69 On 03/26/2022 21:36 By [id number] By: #### MALBR #### [facility] [address] [place] [address] Dr. Lucho RamseyC2.19 106/ulCritically low4.70-6.10The [facility] HospitalComment on above:Performed By: #### MALBR #### [facility] [address] [place] [address] Dr. Lucho De LeónRDW14.0 %Rulqiq52.0-15.0[facility] HospitalComment on above: Performed By: #### MALBR #### [facility] [address] [place] [address] Dr. Lucho Brito #12.07 103/ulCritically high1.40-6.50[facility] Comment on above:Performed By: #### MALBR #### [facility] [address] [place] [address] Dr. Lucho Brito %81.0 %Critically high43.0-75.0[facility] HospitalComment on above:Performed By: #### MALBR #### [facility] [address] [place] [address] Dr. Lucho EscotoBC14.9 103/ulCritically high4.0-11.0The [facility] HospitalComment on above:Performed By: #### MALBR #### [facility] [address] [place] [address] Dr. Lucho De LeónCT ABD/PELV W CONon 58-06-1265XR ABD/PELV W CONEXAMINATION: CT ABD/PELV W CON [...] Electronically authenticated by: ROSARIO BLANCO Date: 2022-03-26 05:29NoTuscarawas HospitalCovid-19 PCR (CVDTB)on 70-87-0620THUS-CoV-2 (COVID-19) RNA IVANNA+probe Ql (Unsp spec)Not detectedNormalNOT DETECTEDThe [facility] Comment on above:Result Comment: When diagnostic testing [...] for this test is supported by the [place] of [employer] and Human Service's declaration that [...] longer be used).Performed By: #### CVDTBH #### [facility] [address] [place] [address] Dr. Lucho Velasquez URINE PROFILEon 45-68-2955Kwznwswtb Ql (U)NegativeNormal NEGATIVEBlanchard Valley Health System [facility] HospitalComment on above:Performed By: #### A1C #### [facility] [address] [place] [address] Dr. Lucho De LeónClarity (U)CLEARNormalCLEARBlanchard Valley Health System [facility] HospitalComment on above: Performed By: #### A1C #### [facility] [address] [place] [address] Dr. Lucho Warner (U)LT. YELLOWNormalYELLOWBlanchard Valley Health System [facility] Valley HospitalComment on above:Performed By: #### A1C #### [facility] [address] [place] [address] Dr. Lucho Johnson micrscopic examination will be performed if indicated. NormalBlanchard Valley Health System [facility] Valley HospitalComment on above:Performed By: #### A1C #### [facility] [address] [place] [address] Dr. Lucho De LeónGlucose Ql (U)>1000AbnormalNEGATIVEBlanchard Valley Health System [facility] HospitalComment on above:Performed By: #### A1C #### [facility] [address] [place] [address] Dr. Lucho De LeónHemoglobin Ql (U)NegativeNormalNEGATIVEBlanchard Valley Health System [facility] Comment on above:Performed By: #### A1C #### [facility] [address] [address] [address] Lucho Kruse Ql (U)15 mg/dlAbnormalNEGATIVEBlanchard Valley Health System [facility] Comment on above:Performed By: #### A1C #### [facility] [address] [address] [address] Lucho De LeónLEUKOCYTESNegativeNormalNEGATIVEBlanchard Valley Health System [facility] HospitalComment on above:Performed By: #### A1C #### [facility] [address] [place] [address] Dr. Lucho Juarestrsunil Ql (U)NegativeNormalNEGATIVEBlanchard Valley Health System [facility] HospitalComment on above:Performed By: #### A1C #### [facility] [address] [place] [address] Dr. Lucho De LeónpH (U)5.0 [pH]Normal5-9The [facility] HospitalComment on above: Performed By: #### A1C #### [facility] [address] [place] [address] Dr. Lucho De LeónSPEC GRAVITY<=1.589Fuxzrawf0.005-<=1.025[facility] Comment on above:Performed By: #### A1C #### [facility] [address] [place] [address] Dr. Lucho Seth PROTEINNegativeCitizens Memorial HealthcarealNEGATIVE/ TRACEBlanchard Valley Health System [facility] Comment on above:Performed By: #### A1C #### [facility] [address] [place] [address] Dr. Lucho Hines MICRO INDNOT INDICATEDMercy Health Clermont HospitalComment on above:Performed By: #### A1C #### [facility] [address] [place] [address] Dr. Lucho Sortobilinogen Qn (U)0.2 {Danny'U}/dLNormal0.2 - 1.0[facility] HospitalComment on above:Performed By: #### A1C #### [facility] [address] [place] [address] Dr. Lucho Wilson 54-37-5771Yjmlap [Catalytic activity/Vol]69.0 U/L Critically low73.0-393.0The [facility] HospitalComment on above:Performed By: #### CBC #### [facility] [address] [place] [address] Dr. Lucho Moseley BLD IMMUNO SCREENon 27-64-1308KGTOCU BLOODPositiveAbnormal NEGATIVEThe [facility] HospitalComment on above:Performed By: #### HGBHCT #### [facility] [address] [place] [address] Dr. Lucho De LeónPOINT OF CARE GLUCOSEon 91-95-8549Isldmlg [Mass/Vol]271 mg/dL Critically wqzu62-874Uri [facility] HospitalComment on above:Performed By: #### BMP #### [facility] [address] [place] [address] Dr. Lucho Valentino 14(COMP METB)on 70-08-5021Ewywmqp [Mass/Vol]2.7 g/dL Critically low3.4-5.0The [facility] HospitalComment on above:Performed By: #### CVDTBH #### [facility] [address] [place] [address] Dr. Lucho Cruz [Catalytic activity/Vol]53 U/FPeixoj33-013Akh [facility] HospitalComment on above:Performed By: #### CVDTBH #### [facility] [address] [place] [address] Dr. Lucho Gonzalez [Catalytic activity/Vol]18 U/VQpjcgt94-04Pex [facility] HospitalComment on above:Performed By: #### CVDTBH #### [facility] [address] [place] [address] Dr. Lucho Parks gap [Moles/Vol]18.7 mmol/LNormalThe [facility] on above:Performed By: #### CVDTBH #### [facility] [address] [place] [address] Dr. Lucho Benjamin [Catalytic activity/Vol]14 U/LCritically ljo93-16Sre [facility] HospitalComment on above:Performed By: #### CVDTBH #### [facility] [address] [address] [address] Lucho De LeónBilirubin [Mass/Vol]0.2 mg/dLNormal0.2-1.0The [facility] Comment on above:Performed By: #### CVDTBH #### [facility] [address] [place] [address] Dr. Lucho De LeónChloride [Moles/Vol]99 mmol/WPvplts10-468Bgk [facility] Comment on above:Performed By: #### CVDTBH #### [facility] [address] [place] [address] Dr. Lucho De LeónCO2 [Moles/Vol]18.3 mmol/LCritically low21.0-32.0The [facility] HospitalComment on above:Performed By: #### CVDTBH #### [facility] [address] [place] [address] Dr. Lucho De LeónCreatinine [Mass/Vol]0.75 mg/dLNormal0.70-1.30The [facility] HospitalComment on above:Performed By: #### CVDTBH #### [facility] [address] [place] [address] Dr. Lucho De LeónGlobulin (S) [Mass/Vol]2.6 g/dLNormalThe [facility] HospitalComment on above:Performed By: #### CVDTBH #### [facility] [address] [place] [address] Dr. Lucho De LeónGlucose [Mass/Vol]323 mg/dLCritically mqvb61-333Piw [facility] HospitalComment on above:Performed By: #### CVDTBH #### [facility] [address] [address] [address] Lucho De LeónPotassium [Moles/Vol]5.0 mmol/LNormal3.5-5.1The [facility] Comment on above:Performed By: #### CVDTBH #### [facility] [address] [place] [address] Dr. Lucho De LeónProtein [Mass/Vol]5.3 g/dLCritically low6.4-8.2The [facility] HospitalComment on above:Performed By: #### CVDTBH #### [facility] [address] [place] [address] Dr. Lucho De LeónSodium [Moles/Vol]131 mmol/LCritically fwp325-783Shy [facility] HospitalComment on above:Performed By: #### CVDTBH #### [facility] [address] [place] [address] Dr. Lucho March nitrogen [Mass/Vol]65.0 mg/dLCritically high7.0-18.0The [facility] HospitalComment on above:Performed By: #### CVDTBH #### [facility] [address] [place] [address] Dr. Lucho March nitrogen/Creatinine [Mass ratio]86.7 mg/mgNormalThe [facility] HospitalComment on above:Performed By: #### CVDTBH #### [facility] [address] [place] [address] Dr. Lucho De LeónAlbumin [Mass/Vol]3.0 g/dLCritically low3.4-5.0The [facility] HospitalComment on above:Performed By: #### CBC #### [facility] [address] [place] [address] Dr. Lucho De LeónAlbumin/Globulin [Mass ratio]1.0 {ratio}NormalThe [facility] HospitalComeaton [facility] on above:Performed By: #### CVDTBH #### [facility] [address] [place] [address] Dr. Lucho De LeónPerformed By: #### CBC #### [facility] [address] [place] [address] Dr. Lucho Cruz [Catalytic activity/Vol]64 U/TUxdosi34-151Ejb [facility] HospitalCome[facility] on above:Performed By: #### CBC #### [facility] [address] [place] [address] Dr. uLcho LeeT [Catalytic activity/Vol]20 U/KOmeglz07-22Wev [facility] HospitalComment on above:Performed By: #### CBC #### [facility] [address] [address] [address] Lucho Guzmanon gap [Moles/Vol]14.2 mmol/LNormalThe [facility] Comment on above:Performed By: #### CBC #### [facility] [address] [address] [address] Lucho De LeónAST [Catalytic activity/Vol]11 U/LCritically wqk86-18Wea [facility] HospitalComment on above:Performed By: #### CBC #### [facility] [address] [place] [address] Dr. Lucho De LeónBilirubin [Mass/Vol]0.3 mg/dLNormal0.2-1.0The [facility] Comment on above:Performed By: #### CBC #### [facility] [address] [place] [address] Dr. Lucho De LeónCalcium [Mass/Vol]8.3 mg/dLCritically low8.5-10.1The [facility] HospitalComment on above:Performed By: #### CVDTBH #### [facility] [address] [place] [address] Dr. Lucho De LeónPerformed By: #### CBC #### [facility] [address] [place] [address] Dr. Lucho De LeónChloride [Moles/Vol]102 mmol/AAhyymk51-816JnuBlanchard Valley Health [facility] Comment on above:Performed By: #### CBC #### [facility] [address] [place] [address] Dr. Lucho De LeónCO2 [Moles/Vol]23.4 mmol/TVmeohm61.0-32.0The [facility] Comment on above:Performed By: #### CBC #### [facility] [address] [place] [address] Dr. Lucho De LeónCreatinine [Mass/Vol]0.81 mg/dLNormal0.70-1.30The [facility] HospitalComment on above:Performed By: #### CBC #### [facility] [address] [place] [address] Dr. Yepez ChangEGFR-AF LIBYAN>60Normal>=60The [facility] HospitalComment on above:Performed By: #### CVDTBH #### [facility] [address] [place] [address] Dr. Lucho De LeónPerformed By: #### CBC #### [facility] [address] [place] [address] Dr. Yepez ChangEGFR-NON AF LIBYAN>60Normal>=60The [facility] HospitalComment on above:Performed By: #### CVDTBH #### [facility] [address] [place] [address] Dr. Lucho De LeónPerformed By: #### CBC #### [facility] [address] [place] [address] Dr. Lucho De LeónGlobulin (S) [Mass/Vol]3.0 g/dLNormalThe [facility] HospitalComment on above:Performed By: #### CBC #### [facility] [address] [place] [address] Dr. Lucho De LeónGlucose [Mass/Vol]261 mg/dLCritically dzob11-964Lla [facility] HospitalComment on above:Performed By: #### CBC #### [facility] [address] [place] [address] Dr. Lucho De LeónPotassium [Moles/Vol]4.6 mmol/LNormal3.5-5.1The [facility] Comment on above:Performed By: #### CBC #### [facility] [address] [place] [address] Dr. Lucho De LeónProtein [Mass/Vol]6.0 g/dLCritically low6.4-8.2The [facility] HospitalComment on above:Performed By: #### CBC #### [facility] [address] [place] [address] Dr. Lucho De LeónSodium [Moles/Vol]135 mmol/LCritically bdo238-269Hqo [facility] HospitalComment on above:Performed By: #### CBC #### [facility] [address] [place] [address] Dr. Lucho De LeónUrea nitrogen [Mass/Vol]56.0 mg/dLCritically high7.0-18.0[facility] HospitalComment on above:Performed By: #### CBC #### [facility] [address] [place] [address] Dr. Lucho De LeónUrea nitrogen/Creatinine [Mass ratio]69.1 mg/mgNoTuscarawas HospitalComment on above:Performed By: #### CBC #### [facility] [address] [place] [address] Dr. Lucho De LeónPROTIMEon [id number] Coag (PPP) [Relative time]0.99 {INR} NormalThe [facility] HospitalComment on above:Performed By: #### MALBR #### [facility] [address] [place] [address] Dr. Lucho De LeónINAlberta GUIDELINESSEE BELOWMercy Health Clermont HospitalComment on above:Result Comment: DESIRED INR: 2.0 - 3.0 CONDITIONS NOT LISTED BELOW 2.5 - 3.5 FOR PROSTHETIC HEART VALVE REPLACEMENT 2.5 - 3.5 RECURRENT THROMBOSIS Performed By: #### MALBR #### [facility] [address] [place] [address] Dr. Lucho De LeónPT Coag (PPP) [Time]10.7 sNormal9.0-11.6ThSelect Medical Specialty Hospital [facility]on Comment on above:Performed By: #### MALBR #### [facility] [address] [place] [address] Dr. Lucoh De LeónPTTon [id number] Coag (Bld) [Time]20.8 sCritically low 22.3-36.2[facility] HospitalComment on above:Performed By: #### MALBR #### [facility] [address] [place] [address] Dr. Lucho De LeónXR ABD FLAT UP_PA Brie [id number] ABD FLAT UP_PA CHEXAM: XR ABD FLAT [...] Electronically authenticated by: ROSARIO BLANCO Date: 2022-03-26 05:15N[facility] HospitalCoding Summaryon [id number] SummaryMLBase 64 XkhuvoudKCp8uYj+PGhlYWQ+JR1JOOFwX76kjBSmtP2UI3qASP9HSQHQLWYQGF1PJY2qwTE4RHhmU1Wl biAv [file] cHN (more content not included)...[facility] Hospital at SouthwoodsProvider Orderson [id number] [id number]#1.00OTGTSycamore Medical Center Vital Signs Date TimeVital SignValuePerforming ZgzwfljokMprgukdh47-79-3321 13:49-0400Body .02 Dillonisa Aichholz MANAGER WOUND CARE-C Work Phone: [facility]10-29-2025 13:49-0400 Body mass index (BMI) [Ratio]33.5 kg/m2Lisa Aichholz MANAGER WOUND CARE-C Work Phone: [facility]10-29-2025 13:49-0400 Body tzdaxniszka48.8 [degF]Tonya Aichholz MANAGER WOUND CARE-C Work Phone: [facility]10-29-2025 13:49-0400 Body oujaqp68.72 kgLisa Aichholz MANAGER WOUND CARE-C Work Phone: [facility]10-29-2025 13:49-0400 Diastolic blood auhdhmnp50 mm[Hg]Tonya Aichholz MANAGER WOUND CARE-C Work Phone: [facility]10-29-2025 13:49-0400 Heart rate70 /minLisa Aichholz MANAGER WOUND CARE-C Work Phone: [facility]10-29-2025 13:49-0400 Respiratory rate16 /minLisa Aichholz MANAGER WOUND CARE-C Work Phone: [facility]10-29-2025 13:49-0400 SaO2% (BldA) [Mass fraction]95 %Tonya Aminbrett MANAGER WOUND CARE-C Work Phone: [facility]10-29-2025 13:49-0400 Systolic blood xftjdhsu448 mm[Hg]Tonya Aminbrett MANAGER WOUND CARE-C Work Phone: [facility]09-30-2025 12:59-0400 Body pbpyjk143.2 Kel Rebolledo MD Work Phone: [facility] [employer] Nebvwv90-73-5294 12:59-0400Body mass index (BMI) [Ratio]30.53 kg/h0FwillKamran Rebolledo MD Work Phone: [facility] [employer] Yxmypk06-26-4590 12:59-0400Body abowsm67.45 kgKamran Rebolledo MD [facility] [employer] Ztilxh71-23-0062 12:59-0400Diastolic blood bvubrwat64 mm[Hg]Kamran Rebolledo MD Work Phone: [facility] [employer] Fhtlug12-39-6257 12:59-0400Heart rate 62 /Chiquita Rebolledo MD Work Phone: [facility] [employer] Qvftyo02-00-5263 12:59-8900RtP9% (BldA) [Mass fraction]99 %Kamran Rebolledo MD Work Phone: [facility] [employer] Hixrbh61-00-7537 12:59-0400Systolic blood irmxehuw660 mm[Hg]Kamran Rebolledo MD Work Phone: [facility] [employer] Aksqsf55-82-0995 16:25-0400Body .02 cmLisa Aichholz MANAGER WOUND CARE-C Work Phone: [facility]09-29-2025 16:25-0400 Body mass index (BMI) [Ratio]34.2 kg/m2Li Aichholz MANAGER WOUND CARE-C Work Phone: [facility]09-29-2025 16:25-0400 Body gjgoxzfoszk78.5 [degF]Tonyakatja Gundersonhholz MANAGER WOUND CARE-C Work Phone: 1(863)940-[address] [place], [place] [address]2009-29-2025 16:25-0400 Body yqsztw24.77 kgLi Aichholz MANAGER WOUND CARE-C Work Phone: [facility]09-29-2025 16:25-0400 Diastolic blood mm[Hg]Tonya Aichholz MANAGER WOUND CARE-C Work Phone: 1(711)[address]09-29-2025 16:25-0400 Heart rate65 /minLisa Aichholz MANAGER WOUND CARE-C Work Phone: 1(148)817-[address] [place], [place] [address]2009-29-2025 16:25-0400 Respiratory rate22 /minLisa Aichholz MANAGER WOUND CARE-C Work Phone: [facility]09-29-2025 16:25-0400 SaO2% (BldA) [Mass fraction]95 %Tonya Aichholz MANAGER WOUND CARE-C Work Phone: [facility]09-29-2025 16:25-0400 Systolic blood idkwnziz835 mm[Hg]Tonya Neptalihholz MANAGER WOUND CARE-C Work Phone: 1(276)223-[address] [place], [place] [address]2009-22-2025 11:02-0400 Body mass index (BMI) [Ratio]30.06 kg/f9Mglbfbreece Lemus APRN-COMMUNICATIONS SPECIALIST Work Phone: [phone]09-22-2025 11:02-0400Body hyvvpwhvdap15 [degF]Felipe Lemus NUTRITION HELPER-COMMUNICATIONS SPECIALIST Work Phone: [phone]09-22-2025 11:02-0400Body lchraq70.09 kgDareece Lemus NUTRITION HELPER-COMMUNICATIONS SPECIALIST Work Phone: 1(134)[facility] [place], [place] [address]2009-22-2025 11:02-0400Diastolic blood tdrzbrle69 mm[Hg]Felipe Lemus NUTRITION HELPER-COMMUNICATIONS SPECIALIST Work Phone: 1(866)[facility] [place], [place] [address]2009-22-2025 11:02-0400Heart rate 62 /Johnna Lemus NUTRITION HELPER-COMMUNICATIONS SPECIALIST Work Phone: 1(946)[facility] [place], [place] [address]2009-22-2025 11:02-0400 Respiratory rate18 /Johnna Lemus NUTRITION HELPER-COMMUNICATIONS SPECIALIST Work Phone: 1(209)[facility] [place], [place] [address]2009-22-2025 11:02-9079YxT0% (BldA) [Mass fraction]94 %Felipe Lemus NUTRITION HELPER-COMMUNICATIONS SPECIALIST Work Phone: 1(313)[facility] [place], [place] [address]2009-22-2025 11:02-0400Systolic blood zizkljgz177 mm[Hg]Felipe Lemus NUTRITION HELPER-COMMUNICATIONS SPECIALIST Work Phone: 1(459)[facility] [place], [place] [address]2008-29-2025 15:33-6373HkP9% (BldA) [Mass fraction]161.0 %NA RAMANSelect Medical Specialty Hospital - [facility] HospitalComment on above:Performed By: #### ABG ####[facility] ([facility])[address] [place] [address] [id number] 13:44-3012WaX3% (BldA) [Mass fraction]191.0 % NA RAMANATHANSuburban Community Hospital & Brentwood [facility] HospitalComment on above:Performed By: #### HRTN ####[facility] ([facility])[address] [place] [address] 06-13-2025 13:11-7942SxZ7% (BldA) [Mass fraction]216.0 %NA RAMANSelect Medical Specialty Hospital - [place] HospitalComment on above:Performed By: #### HRTN ####[facility] ([facility])[address] [place] [address] IKT10-08-6514 12:41-8032EhO0% (BldA) [Mass fraction]259.0 %NA [facility] HospitalComment on above:Performed By: #### HRTN ####[facility] ([facility])[address] [facility] [place] [address] [id number] 12:11-9271VhQ9% (BldA) [Mass fraction]311.0 % NA [facility] HospitalComment on above:Performed By: #### HRTN ####[facility] ([facility])[address] [facility] [place] [address] 06-13-2025 11:39-6175RiF1% (BldA) [Mass fraction]318.0 %NA [facility] HospitalComment on above:Performed By: #### HRTN ####[facility] ([facility])[address]Jo[facility] [address]08-18-2025 13:44-0400Body byzspk086.2 cmNA Nia WILKINS Work Phone: 1(065)[address] [place], [place] 0106208-18-2025 13:44-0400Body mass index (BMI) [Ratio]29.44 kg/m2DANNY Kramer MD Work Phone: 1(537)[address] [place], [place] 0106208-18-2025 13:44-0400Body hxnbif25.28 kgDANNY Kramer MD Work Phone: 1(480)[address] [place], [place] 0106208-18-2025 13:44-0400Diastolic blood aarvyjkp54 mm[Hg]DANNY Kramer MD Work Phone: 1(567)[address] [place], [place] 0106208-18-2025 13:44-0400Heart rate 75 /BrandiDANNY Kramer MD Work Phone: 1(858)[address] [place], [place] 0106208-18-2025 13:44-9078YbT4% (BldA) [Mass fraction]95 %DANNY Kramer MD Work Phone: 1(287)[address] [place], [place] 0106208-18-2025 13:44-0400Systolic blood frlejici887 mm[Hg]DANNY Kramer MD Work Phone: [facility]08-18-2025 13:42-0400Body rhvlve992.2 Lula Foy MD Work Phone: [phone]08-18-2025 13:42-0400Body mass index (BMI) [Ratio]29.44 kg/d4RtheugdztcuSydni Foy MD Work Phone: 1(984)997-[address] [place], [place] 4842008-18-2025 13:42-0400Body loumza94.28 kgSydni Foy MD Work Phone: 1(475)929-[address] [place], [place] 4842008-18-2025 13:42-0400Diastolic blood xvhwtfuv47 mm[Hg]Sydni Foy MD Work Phone: 1(598)429-[address] [place], [place] [address]2008-18-2025 13:42-0400Heart rate 75 /minChpage Foy MD Work Phone: 1(573)056-[address] [place], [place] [address]2008-18-2025 13:42-7281AgU2% (BldA) [Mass fraction]95 %Sydni Foy MD Work Phone: 1(606)739-[address] [place], [place] [address]2008-18-2025 13:42-0400Systolic blood mm[Hg]Sydni Foy MD Work Phone: [phone]07-07-2025 13:40-0400Body jqpafm692.2 cmDANNY Kramer MD Work Phone: [facility]07-07-2025 13:40-0400Body mass index (BMI) [Ratio]29.28 kg/m2DANNY Kramer MD Work Phone: [facility]07-07-2025 13:40-0400Body .82 kgDANNY Kramer MD Work Phone: [facility]07-07-2025 13:40-0400Diastolic blood iqmkmexp35 mm[Hg]DANNY Kramer MD Work Phone: [facility]07-07-2025 13:40-0400Heart rate 75 /BrandiDANNY Kramer MD Work Phone: [facility]07-07-2025 13:40-5766GoN8% (BldA) [Mass fraction]93 %DANNY Kramer MD Work Phone: [facility]07-07-2025 13:40-0400Systolic blood phqzwqir329 mm[Hg]DANNY Kramer MD Work Phone: [facility]06-24-2025 13:10-0400Body mass index (BMI) [Ratio]29.13 kg/m2Claudiasa Hardik MANAGER WOUND CARE Work Phone: [facility] HospitalIeufrsudgk23-00-4513 13:10-0400Body temperature 97.81 [degF]Tonya [place]ik MANAGER WOUND CARE Work Phone: [facility] HospitalCexrekrcag48-06-1595 13:10-0400Body hksgna31.37 kgLisa Dilmaz MANAGER WOUND CARE Work Phone: [facility] HospitalDupkjaebkl59-09-9243 13:10-0400Diastolic blood dogllrza43 mm[Hg]Tonya [place] MANAGER WOUND CARE Work Phone: [facility] HospitalXhcxadqglq04-92-8448 13:10-0400Heart rate74 /min Tonya [place]ik MANAGER WOUND CARE Work Phone: [facility] HospitalOoeiyvjimx36-60-9183 13:10-0400Respiratory rate18 /minLisa Hardik MANAGER WOUND CARE Work Phone: [facility] HospitalRyettrorft91-00-1655 13:10-5936BiC6% (BldA) [Mass fraction]95 %Tonya [place] MANAGER WOUND CARE Work Phone: [facility] HospitalGwdeyxikbk26-27-4159 13:10-0400Systolic blood rvokpewn863 mm[Hg]Tonya [place] MANAGER WOUND CARE Work Phone: [facility] HospitalUqouypxezp35-91-1870 14:04-0400Body mass index (BMI) [Ratio]29.29 kg/m2Tonya Pereraz MANAGER WOUND CARE Work Phone: [facility] HospitalSojddagecf93-76-6597 14:04-0400Body temperature 98.49 [degF]Tonya Pereraz MANAGER WOUND CARE Work Phone: [facility] HospitalLhmhajkjdc46-26-3620 14:04-0400Body ujvypj56.82 kgTonya Pereraz MANAGER WOUND CARE Work Phone: [facility] HospitalOqrloumzkr76-89-4031 14:04-0400Diastolic blood mm[Hg]Tonya Pereraz MANAGER WOUND CARE Work Phone: [facility] HospitalNdrywapjhp90-72-8400 14:04-0400Heart rate75 /min Tonya Pereraz MANAGER WOUND CARE Work Phone: [facility] HospitalOlzcdlufwb66-73-0558 14:04-0400Respiratory rate18 /minTonya Pereraz MANAGER WOUND CARE Work Phone: [facility] HospitalQpvxvniudd58-99-1580 14:04-7686ZvN8% (BldA) [Mass fraction]93 %Tonya Pereraz MANAGER WOUND CARE Work Phone: [facility] HospitalNbpvbxagrc12-74-0367 14:04-0400Systolic blood fmvkeflf169 mm[Hg]Tonya Pereraz MANAGER WOUND CARE Work Phone: [facility] HospitalCwbqqftxpn45-08-1135 14:43-0400Body .2 Law Méndez APRN-COMMUNICATIONS SPECIALIST Work Phone: 1(104)[facility]05-08-2025 14:43-0400Body mass index (BMI) [Ratio]28.98 kg/c6OhvpgJessica Méndez APRN-COMMUNICATIONS SPECIALIST Work Phone: 1(432)[facility]05-08-2025 14:43-0400Body ryjoui14.92 kgJessica Méndez APRN-COMMUNICATIONS SPECIALIST Work Phone: 1(997)[facility]05-08-2025 14:43-0400Diastolic blood puaeainf17 mm[Hg]Jessica Karin NUTRITION HELPER-COMMUNICATIONS SPECIALIST Work Phone: 1(501)[facility] CenterKeraFAST Kbwloy45-58-7969 14:43-0400Heart rate 81 /Fernando Méndez NUTRITION HELPER-COMMUNICATIONS SPECIALIST Work Phone: 1(313)[facility] CenterKeraFAST Djeeeu47-44-4293 14:43-0400Systolic blood xvdgwyhe455 mm[Hg]Jessica Méndez NUTRITION HELPER-COMMUNICATIONS SPECIALIST Work Phone: 1(996)[facility] CenterKeraFAST Jvzjho87-04-6610 08:56-0400Body ficzkf149.2 cmKelsi Mici PA-C Work Phone: 1(879)665-[address] [place], [place] [address] Xdding03-61-5697 08:56-0400Body mass index (BMI) [Ratio]29.85 kg/r2Yvwcv Mici PA-C Work Phone: 1(604)118-[address] [place], [place] [address] Kfvfmn47-42-6861 08:56-0400Body ssmxwu14.46 kgKelsi Mici PA-C Work Phone: 1(988)318-[address] [place], [place] [address] Arvoyz85-09-8836 08:56-0400Diastolic blood xgjpqogv84 mm[Hg]Vanessa Mici PA-C Work Phone: 1(469)378-[address] [place], [place] [address] Cqpbmr41-95-0685 08:56-0400Heart rate 94 /minKelsi Mici PA-C Work Phone: 1(369)631-[address] [place], [place] [address] Yrmidg99-38-1525 08:56-6514KiR7% (BldA) [Mass fraction]95 %Vanessa Mici PA-C Work Phone: 1(252)756-[address] [place], [place] [address] Xgygrr93-44-0368 08:56-0400Systolic blood iklgfvny292 mm[Hg]Vanessa Mici PA-C Work Phone: 1(252)457-[address] [place], [place] [address] Ajxpgp69-77-1622 13:59-0500Body mass index (BMI) [Ratio]30.13 kg/m2Tonya Dye MANAGER WOUND CARE Work Phone: [facility] HospitalGvbooonidq31-27-1185 13:59-0500Body temperature 98.1 [degF]Tonya Dye MANAGER WOUND CARE Work Phone: 1(419)547-[address] [place], [place] [address]Mskaxxcuup64-89-3088 13:59-0500Body folavi30.27 kgLisa Aminholz MANAGER WOUND CARE Work Phone: [facility] HospitalHmhjwolkqj33-46-5518 13:59-0500Diastolic blood vrwvjupl12 mm[Hg]Tonya Eloisaholz MANAGER WOUND CARE Work Phone: [facility] HospitalGhpnbsdzle46-85-9692 13:59-0500Heart rate78 /min Tonya Eloisaholz MANAGER WOUND CARE Work Phone: [facility] HospitalQwwlelrwbt53-47-9718 13:59-0500Respiratory rate18 /minLisa Eloisaholz MANAGER WOUND CARE Work Phone: [facility] HospitalXaofmmfwba76-48-8669 13:59-4945OpW0% (BldA) [Mass fraction]96 %Tonya Eloisaholz MANAGER WOUND CARE Work Phone: [facility] HospitalNsmprvfpbc78-71-0845 13:59-0500Systolic blood mm[Hg]Tonya Eloisaholz MANAGER WOUND CARE Work Phone: 1(293)393-[address] [place], [place] [address]Vvlmidhupw18-40-7224 14:27-0500Body outvqu438.2 cmLisa Neptalihholz MANAGER WOUND CARE Work Phone: [place] [address]Eoyendkoco57-05-8873 14:27-0500Body mass index (BMI) [Ratio]29.63 kg/m2Claudiasa Eloisaholz MANAGER WOUND CARE Work Phone: [place] [address]Eppfvjkdxw31-03-4123 14:27-0500Body temperature 98.71 [degF]Tonya Eloisaholz MANAGER WOUND CARE Work Phone: [place] [address]Dojjxddwbp92-22-5920 14:27-0500Body xysybk42.82 kgLisa Neptalihholz MANAGER WOUND CARE Work Phone: [place] [address]Wnayvdlnjo29-43-0497 14:27-0500Diastolic blood tjqaoion94 mm[Hg]Tonya Neptalihholz MANAGER WOUND CARE Work Phone: [place] [address]Rbkxlcojck31-03-8710 14:27-0500Heart rate95 /min Tonya Eloisaholz MANAGER WOUND CARE Work Phone: [facility] HospitalFljoiacaxn89-19-4432 14:27-0500Respiratory rate18 /minLisa Eloisaholz MANAGER WOUND CARE Work Phone: [place] [address]Rdwzdgtgre32-42-2051 14:27-9649DdE2% (BldA) [Mass fraction]98 %Tonya Eloisaholz MANAGER WOUND CARE Work Phone: [facility] HospitalFgmjmtknmn76-36-2724 14:27-0500Systolic blood tvidwvjr388 mm[Hg]Tonya Neptalihholz MANAGER WOUND CARE Work Phone: [facility] HospitalTfzocxcmii73-67-1444 13:52-0400Body veycql832.2 cmLisa Eloisaholz MANAGER WOUND CARE Work Phone: [facility] HospitalWwsuzltvvm83-26-7143 13:52-0400Body mass index (BMI) [Ratio]28.72 kg/m2Lisa Eloisaholz MANAGER WOUND CARE Work Phone: [facility] HospitalAbyezixoka10-82-0182 13:52-0400Body temperature 98.49 [degF]Tonya Eloisaholz MANAGER WOUND CARE Work Phone: [facility] [phone] 13:52-0400Body ysfmmu01.19 kgLisa Eloisaholz MANAGER WOUND CARE Work Phone: [facility] [phone] 13:52-0400Diastolic blood wubqreln92 mm[Hg]Tonya Eloisaholz MANAGER WOUND CARE Work Phone: [facility] [phone] 13:52-0400Heart rate96 /min Tonya Neptalihholz MANAGER WOUND CARE Work Phone: [place] [address]Kuquchlnvm83-05-7038 13:52-0400Respiratory rate18 /minLisa Aichholz MANAGER WOUND CARE Work Phone: [facility] HospitalRkgfrbirek05-32-5999 13:52-7729AzN2% (BldA) [Mass fraction]96 %Tonya Neptalihholz MANAGER WOUND CARE Work Phone: [facility] HospitalXgbfeezbvk41-35-6911 13:52-0400Systolic blood uigrohny410 mm[Hg]Tonya Dye MANAGER WOUND CARE Work Phone: [facility] HospitalYosshnjyhb75-41-0908 13:39-0400Body xahnyh854.2 Cari Dye MANAGER WOUND CARE Work Phone: [facility] HospitalZiegskcfwg72-46-4254 13:39-0400Body mass index (BMI) [Ratio]28.63 kg/m2Claudiasa Eloisabrett MANAGER WOUND CARE Work Phone: [facility] HospitalOjdkcrmmkf38-95-0025 13:39-0400Body temperature 98.1 [degF]Tonya Dye MANAGER WOUND CARE Work Phone: [facility] HospitalQtrxloczai26-80-3326 13:39-0400Body qgtbzo83.92 kgTonya Dye MANAGER WOUND CARE Work Phone: [facility] HospitalGzusfvczch97-78-3812 13:39-0400Diastolic blood moqhcbjd82 mm[Hg]Tonya Dye MANAGER WOUND CARE Work Phone: [facility] HospitalIwrhiezptr06-81-0319 13:39-0400Heart rate75 /min Tonya Dye MANAGER WOUND CARE Work Phone: [facility] HospitalFldeohssei21-29-3105 13:39-0400Respiratory rate18 /minLisa Dye MANAGER WOUND CARE Work Phone: [facility] HospitalQnntfdggri09-16-8086 13:39-0766VnE9% (BldA) [Mass fraction]97 %Tonya Aminbrett MANAGER WOUND CARE Work Phone: [facility] HospitalHhtfsfnxby62-90-0413 13:39-0400Systolic blood vmzgihah844 mm[Hg]Tonya Aminbrett MANAGER WOUND CARE Work Phone: [facility] HospitalMnnpaobmfj51-66-5485 11:57-0400Body uaudtg488.2 Mora Law MD Work Phone: [facility]07-26-2024 11:57-0400Body mass index (BMI) [Ratio]28.51 kg/k7OnzqnjShen Law MD Work Phone: [facility]07-26-2024 11:57-0400Body .56 kgShen Law MD Work Phone: [phone]-[facility]Pro[facility] HospitalIg[facility] Wdbjml04-34-4381 11:57-0400Diastolic blood zsqlfvec93 mm[Hg]Shen Law MD Work Phone: [phone] [place], [place] [address] Oghdab98-67-3699 11:57-0400Heart rate 80 /minShen Law MD Work Phone: [phone] Zvzaif40-49-3678 11:57-2403PaD1% (BldA) [Mass fraction]96 %Shen Law MD Work Phone: [phone] HospitalIg[facility] Koouvj67-06-8599 11:57-0400Systolic blood olnmcgek548 mm[Hg]Shen Law MD Work Phone: [phone] Rivera StreetIgneous Systems Bmqhxv47-23-6893 13:55-0400Body mhbjci123.2 cmRskye Siu MD Work Phone: [phone] Rivera StreetIgneous Systems Waqoxb69-58-8896 13:55-0400Body mass index (BMI) [Ratio]27.72 kg/n4LmjgtvRonnell Siu MD Work Phone: [phone] Rivera StreetIgneous Systems Onuhej96-18-1703 13:55-0400Body zkvjit12.29 kgRonnell Siu MD Work Phone: [phone] Rivera StreetIgneous Systems Rvffof96-19-1431 13:55-0400Diastolic blood yqnxuhrg11 mm[Hg]Ronnell Siu MD Work Phone: [phone] Rivera StreetIgneous Systems Ohsjal65-32-7606 13:55-0400Heart rate 93 /minRonnell Siu MD Work Phone: [phone] HospitalIg[facility] Xdghcj94-72-3035 13:55-0027RhC0% (BldA) [Mass fraction]96 %Ronnell Siu MD Work Phone: [phone]-[facility] HospitalIg[facility] Jdwpyp13-67-0398 13:55-0400Systolic blood caotbyzy042 mm[Hg]Ronnell Siu MD Work Phone: [facility]04-25-2024 10:02-0400Body vocnkv792.2 cmYaneli Howell MD Work Phone: [phone]04-25-2024 10:02-0400Body mass index (BMI) [Ratio]28.66 kg/j1DzbepwgYaneli Howell MD Work Phone: [phone])[facility]04-25-2024 10:02-0400Body qkzymj18.01 kgMojacklyn Howell MD Work Phone: [phone])[facility]04-25-2024 10:02-0400Diastolic blood ehkhoobt19 mm[Hg]Yaneli Howell MD Work Phone: [phone]04-25-2024 10:02-0400Heart rate 76 /minMojacklyn Howell MD Work Phone: [phone]04-25-2024 10:02-0400Systolic blood xkxkinoq406 mm[Hg]Yaneli Howell MD Work Phone: [phone]02-14-2024 15:28-0500Body .2 Dillonisa Hardik MANAGER WOUND CARE Work Phone: [facility] HospitalUpdnvogtft70-06-2932 15:28-0500Body mass index (BMI) [Ratio]28.54 kg/m2Claudiasa Hardik MANAGER WOUND CARE Work Phone: [facility] HospitalDegbvgsjbi33-56-1329 15:28-0500Body temperature 97.11 [degF]Tonya Hardik MANAGER WOUND CARE Work Phone: [facility] HospitalYhnzduyiev32-23-7651 15:28-0500Body epvnlg29.64 kgLisa Hardik MANAGER WOUND CARE Work Phone: [facility] HospitalEfkrdkvxjg33-36-8787 15:28-0500Diastolic blood mm[Hg]Tonya Hardik MANAGER WOUND CARE Work Phone: [facility] HospitalWyqkhendte35-16-3735 15:28-0500Heart rate99 /min Tonya Hardik MANAGER WOUND CARE Work Phone: [employer] Wzvxgbfpvq97-66-1679 15:28-0500Respiratory rate20 /minTonya Dye MANAGER WOUND CARE Work Phone: noOzarks Medical CenterUycmganouk93-97-4822 15:28-1787MvT1% (BldA) [Mass fraction]97 %Tonya Dye MANAGER WOUND CARE Work Phone: [employer] Wuwwaimkvj39-54-2132 15:28-0500Systolic blood jptupary900 mm[Hg]Tonya Dye MANAGER WOUND CARE Work Phone: noOzarks Medical CenterIaebfumhph86-72-4002 14:47-0500Blood Pressure LocationMichael NILL [facility] Ltbawgkn57-88-5156 14:47-0500Diastolic blood lhvoyjsh00 mm[Hg]Bernadine NILL [facility] Eolvbvav36-26-7096 14:47-0500Heart rate 76 /minMichael NILL [facility]11-15-2022 14:47-0500 Respiratory rate16 /minMichael NILL [facility]11-15-2022 14:47-0500Systolic blood pufmkjfh300 mm[Hg]Bernadine NILL [facility]11-04-2021 14:30-0400Body yoqcqq248.18 cmThomas Olexa Other [employer] Other 11-04-2021 14:30-0400Body mass index (BMI) [Ratio] 31.04 kg/t0Tadytj Olexa Other [employer] Other 11-04-2021 14:30-0400Body .9 kgThomas Olexa Other [employer] Other 10-14-2021 14:30-0400Body .18 cmTarmen Olexa Other [employer] Other 10-14-2021 14:30-0400Body mass index (BMI) [Ratio] 31.32 kg/m5Hgxikj Olexa Other [employer] Other 10-14-2021 14:30-0400Body epxekx51.72 kgThomas Olexa Other [employer] Other Encounters Encounter DateEncounter TypeCare ProviderFacilityStart: 08-15-2025 End: 61-03-0286Izsltbevu encounterPr[facility]ab [facility] Work Phone: [phone] - Pharmacy Medication ManagementStart: 08-13-2025 End: 45-74-0796iawtrtxkssPgtd J Aichholz NP-C Work Phone: -[facility] ClydeStart: 08-13-2025 End: 95-44-6993Apuljnd encounter procedureTonya Dye NP-C-[facility] [place] Work Phone: Start: 08-12-2025 End: 34-76-8487DguamiNutpdn D Grande MD Work Phone: [facility] - Pharmacy Medication ManagementComment on above:S/P CABG (coronary artery bypass graft); S/P AVR (aortic valve replacement)Start: 08-11-2025 End: 30-01-0555Zpwsbc-up encounterChan Soon-[facility] [address] [place] [address] - Pharmacy Medication ManagementComment on above:S/P CABG (coronary artery bypass graft) (Primary Dx); S/P AVR (aortic valve replacement)Start: 08-11-2025 End: 18-33-1818puwcsikkmnMDDXORKCZ PHARMACY MEDICATION MANAGEMENTOhio State University Wexner Medical Centertart: 08-05-2025 End: 95-17-1763Ighqgx-up encounterTung Sommers [facility] Physicians CardiologyComment on above:Echo complete W/O contrastStart: 08-05-2025 End: 07-38-8020tmcafxkmpzHDFVPJKSDXJ J RIORDANProWilson Health HospitalStart: 08-04-2025 End: 79-13-4857imbhxsubuoLKSAY L DEBENEDETTICincinnati Shriners Hospital HospitalStart: 07-28-2025 End: 59-92-5192Qscyfl-up encounter[address] - Pharmacy Medication ManagementComment on above:S/P CABG (coronary artery bypass graft) (Primary Dx); S/P AVR (aortic valve replacement)Start: 07-28-2025 End: 58-51-5501umsrjbwnbzELGGMFXZZ PHARMACY MEDICATION MANAGEMENTOhio State University Wexner Medical Centertart: 07-22-2025 End: 61-16-3910Vnunyx-up encounter[address] - Pharmacy Medication ManagementComment on above:S/P CABG (coronary artery bypass graft) (Primary Dx); S/P AVR (aortic valve replacement)Start: 07-22-2025 End: 67-37-7225eizwaavnhsEPGAOKVDG PHARMACY MEDICATION MANAGEMENTOhio State University Wexner Medical Centertart: 07-15-2025 End: 09-05-9582Mnljfl-up encounter[address] - Pharmacy Medication ManagementComment on above:S/P CABG (coronary artery bypass graft) (Primary Dx); S/P AVR (aortic valve replacement)Start: 07-15-2025 End: 56-89-6908kfosepvoklIYQZQJGVX PHARMACY MEDICATION MANAGEMENTOhio State University Wexner Medical Centertart: 07-15-2025 End: 09-37-1040Ypagtv outpatient visit 25 Eveline Rebolledo MD Work Phone: [facility] Physicians CardiologyComment on above: Nonrheumatic aortic (valve) stenosis (Primary Dx); ASCVD (arteriosclerotic cardiovascular disease); Mixed hyperlipidemia; Primary hypertension; Postoperative atrial fibrillation ([facility]-HCC)Start: 07-15-2025 End: 75-03-8636qbtbkzflxcVFRFWLio REBOLLEDOOhio State University Wexner Medical Centertart: 07-14-2025 End: 49-34-5543gkdrilaxsfHvejVahid Dye NP-C Work Phone: [facility] Work Phone: Start: 07-14-2025 End: 97-84-1714Stfmwzp encounter procedureTonya Dye NP-C-[facility] Marco A Work Phone: Start: 07-14-2025 End: 15-60-8556Fvkiimjsd encounterCathy [facility] - Pharmacy Medication ManagementStart: 07-09-2025 End: 68-15-0758Airbwj-up encounter[address] - Pharmacy Medication ManagementComment on above:S/P CABG (coronary artery bypass graft) (Primary Dx); S/P AVR (aortic valve replacement)Start: 07-09-2025 End: 77-63-0426znvontxbuzBVWCJOWIP PHARMACY MEDICATION MANAGEMENTOhio State University Wexner Medical Centertart: 07-08-2025 End: 42-89-7310Kmdiatgcq encounterCathy [facility] - Pharmacy Medication ManagementStart: 07-07-2025 End: 12-51-6456Ykadxz-up encounterDenver [facility] Pharm[facility] Medication Management Work Phone: [facility] - Pharmacy Medication ManagementComment on above:S/P CABG (coronary artery bypass graft) (Primary Dx); S/P AVR (aortic valve replacement)Start: 07-07-2025 End: 22-54-0508Vqavjzumdlnky drug monitoringT[address] Pharmacy Medication ManagementComment on above:S/P CABG (coronary artery bypass graft) (Primary Dx); S/P AVR (aortic valve replacement); Encounter for immunizationStart: 07-07-2025 End: 68-88-8087ilznrezysoQONQNXCZM PHARMACY MEDICATION MANAGEMENTPeoples Hospitaltart: 07-07-2025 End: 40-26-4908Kmomvb follow up visit related to original Daniel Lemus APRN-OLI Work Phone: [facility] Cardiothoracic [facility] TowerComment on above:S/P AVR (aortic valve replacement) (Primary Dx); S/P CABG (coronary artery bypass graft)Start: 07-07-2025 End: 15-17-0117qjdmtmebhcPSAC J AICHHOLZPeoples Hospitaltart: 07-04-2025 End: 62-76-9162Kncvsevvutvwc procedureDasha JoséProMedica Physicians Cardiothoracic Surgeons - [facility] TowerStart: 06-30-2025 End: 26-98-6119Uwtogndxm encounterDenver Health Medical Center Pharmacy Medication Management Work Phone: [facility] - Pharmacy Medication ManagementStart: 10-05-3714Enhfvdg encounter procedureTonya Dye MANAGER WOUND CARE-C Work Phone: [facility] Westtart: 06-23-2025 End: 35-49-7971Hypntz-up encounterMamercy health defiance hospitalcarmela TaraV[facility] Work Phone: [facility] - [facility]acy Medication ManagementComment on above:S/P CABG (coronary artery bypass graft) (Primary Dx); S/P AVR (aortic valve replacement)Start: 06-19-2025 End: 34-96-4164Fqejgu-up encounterJm Curry [facility] Work Phone: [facility] - Pharmacy Medication ManagementComment on above:S/P CABG (coronary artery bypass graft) (Primary Dx); S/P AVR (aortic valve replacement)Start: 06-18-2025 End: 06-28-5813wpltlakdyzRjkfhizpxuk J Riordan MD Work Phone: [facility] Physicians Cardiothoracic Surgeons [facility] TowerStart: 06-17-2025 End: 77-64-6326Qtvidepooansg drug monitoringMattcarmela [facility] Work Phone: [facility]Bl[facility] - Pharmacy Medication ManagementComment on above:S/P CABG (coronary artery bypass graft) (Primary Dx); S/P AVR (aortic valve replacement)Start: 06-17-2025 End: 78-02-0433Fuftiljokfxoh procedureMarielena Sheridan [facility] Physicians Cardiothoracic Surgeons - [facility] TowerStart: 89-95-7478zlssbjtrqjSRPASanger General Hospital Ambulatory PPGStart: 06-13-2025 End: 64-38-6742Ufooprbwhg and management of inpatientCHRISTOPHER Gail FOY [facility] HospitalStart: 06-06-2025 End: 62-16-2269gzysjeclzkYMBYBNGZYUI J RIOCHIQUISANProCleveland Clinic Union Hospital HospitalStart: 06-02-2025 End: 19-80-2339Zdzvup consultation new/estab patient 80 minChrispari Foy MD Work Phone: [facility] Physicians CardiologyComment on above: Nonrheumatic aortic valve stenosis (Primary Dx)Start: 06-02-2025 End: 65-49-8537Hffzyl outpatient new 45 minutesP Cristopher Kramer MD Work Phone: [facility] CardiologyComment on above:Severe aortic valve stenosis (Primary Dx)Start: 06-02-2025 End: 07-97-3951jxizxongsbWCindy KRAMERPeoples Hospitaltart: 05-30-2025 End: 73-81-2932Twhivu-up encounterSelect Medical Specialty [facility] - Cardiac CathComment on above:Cardiac InvasiveStart: 05-09-2025 End: 28-32-0865dizsjezkxoKCindy KRAMERSuburban [facility] Hospital [facility] HospitalStart: 05-07-2025 End: 23-72-8637Gzuiyoyvddfmn Cordell MARCIAL Work Phone: [facility] CardiologyStart: 05-06-2025 End: 00-32-0282Dumfqomcu encounterRashida MARCIAL Work Phone: [facility] CardiologyStart: 05-04-2025 End: 19-36-0318PvjkuaQmmw Aichholz NP Work Phone: [phone] CWM FMComment on above:Uncontrolled type 2 diabetes mellitus with hyperglycemia (HCC)Start: 05-01-2025 End: 64-37-2641qbrjqoamueETQNR A DOLKAYCEESuburban Community Hospital & [facility] HospitalStart: 04-28-2025 End: 66-00-3081Vbttzl-up encounterMedina Baird Physicians CardiologyComment on above:Basic Metabolic Panel, CBC, CT CTA TAVRStart: 14-41-7813oghizwipdsP CRISTOPHER KRAMERCincinnati Shriners Hospital HospitalStart: 04-24-2025 End: 03-69-7666Bspgftkvw encounterPhylicia Magaña APRN-COMMUNICATIONS SPECIALIST Work Phone: [facility] Physicians General SurgeryStart: 04-22-2025 End: 70-32-2149Nromjugee encounterGabriella Newton CMAUniversity Hospitals Samaritan Medical Centerca Physicians General SurgeryStart: 04-21-2025 End: 37-04-1980Qzbnbjmdmzjmc procedureRashida MARCIAL Work Phone: [facility] Physicians CardiologyComment on above:Cath InstructionsCT InstructionsStart: 04-21-2025 End: 22-39-6241Frsspu outpatient new 45 minutesP Cristopher Kramer MD Work Phone: [facility] Physicians CardiologyComment on above: Nonrheumatic aortic valve stenosisStart: 04-21-2025 End: 74-55-7609wpqtfvygtwG CRISTOPHER KRAMERSuburban Community Hospital [facility] HospitalStart: 04-16-2025 End: 41-87-5012Vdeahnxbmoriy procedureRashida MARCIAL Work Phone: [facility] Centerca Physicians CardiologyStart: 04-16-2025 End: 18-33-7724Joszhvruw encounterTonya Dye NP Work Phone: noms CWM FMComment on above:Acute gastric ulcer without hemorrhage or perforation (Primary Dx); Abnormal computed tomography of abdomen and pelvisStart: 91-52-9632fikiwugubf VANESSA MICIProMedica Bandon HospitalStart: 04-14-2025 End: 18-38-5156dyxpxzbbvxDWCLI MICIPrBaptist Saint Anthony's Hospitaltart: 04-08-2025 End: 98-67-8234Dszaby flowsheetLisa Aminholz MANAGER WOUND CARE Work Phone: noms CWM FMStart: 04-08-2025 End: 87-00-9194Bdvqsl flowsheetLisa Aichholz MANAGER WOUND CARE Work Phone: noms CWM FMStart: 04-08-2025 End: 36-13-4264Zihnmwqnc Result EncounterLisa Eloisaholz MANAGER WOUND CARE Work Phone: noms External Department UnsolicitedStart: 04-08-2025 End: 01-60-5370Zfeytu outpatient visit 25 minutesLisa Hardik MANAGER WOUND CARE Work Phone: noms CWM FMComment on above:Abdominal pain, generalized (Primary Dx); DiverticulitisStart: 04-08-2025 End: 96-37-5809Qnrpov OnlyLisa Neptalituckersyedaz MANAGER WOUND CARE Work Phone: noms CWM FMComment on above:RUQ pain (Primary Dx) Start: 04-02-2025 End: 79-48-7657Owymilmht Result EncounterLisa Eloisaholz MANAGER WOUND CARE Work Phone: noms External Department UnsolicitedStart: 04-02-2025 End: 73-86-8038Wzhtdgwih Result EncounterLisa Eloisaholz MANAGER WOUND CARE Work Phone: noms External Department UnsolicitedStart: 03-27-2025 End: 15-33-5377Mzinjm flowsheetLisa Neptalituckerholz MANAGER WOUND CARE Work Phone: noms CWM FMStart: 03-27-2025 End: 67-20-5353Jmshec flowsheetLisa Neptalihholz MANAGER WOUND CARE Work Phone: noms CWM FMStart: 03-27-2025 End: 41-72-7331Istioco encounter procedureLisa Eloisaholz MANAGER WOUND CARE Work Phone: noms CWM FMComment on above:Encounter [...] with hyperglycemia (HCC); Primary insomniaStart: 03-27-2025 End: 76-27-4254fzsrhywvejTFDW AICHHOLZNot AvailableStart: 03-17-2025 End: 99-89-3708Njivkgnwu encounterAngie [facility] - Vein CareStart: 03-03-2025 End: 57-48-1923EyvcrdMcmh Aichholz NP Work Phone: NOIW CW FMComment on above:Primary hypertension ([facility]); Allergic rhinitis, unspecified seasonality, unspecified trigger; Diabetic polyneuropathy associated with type 2 diabetes mellitus ([facility]); Uncontrolled type 2 diabetes mellitus with hyperglycemia ([facility]); PAD (peripheral artery disease) ([facility]); Acute gastritis without hemorrhage, unspecified gastritis typeUncontrolled type 2 diabetes mellitus with hyperglycemia ([facility])Start: 02-26-2025 End: 90-34-2553Jfaigdkix encounterTraci Philip [place] Physicians Jobst VascularStart: 02-20-2025 End: 77-24-8806Lhtuzg outpatient visit 15 [facility] hospitalJessica Méndez NUTRITION HELPER-COMMUNICATIONS SPECIALIST Work Phone: ProAshtabula County Medical Centerca [facility] Vascular FremontComment on above:PAD (peripheral artery disease) (Primary Dx); Claudication; History of arterial bypass of lower extremityStart: 02-20-2025 End: 66-57-8934efsioatyagYAQUI M KELLYWilson Memorial Hospital Ambulatory PPGStart: 02-03-2025 End: 94-38-7294Lxybnwquy Result EncounterGeneric External Data ProviderNOMS External Department UnsolicitedStart: 02-03-2025 End: 85-55-6980Wohbdennk Result EncounterGeneric External Data ProviderNOMS External Department UnsolicitedStart: 01-29-2025 End: 01-64-1298DtqswlRkhn Aichholz MANAGER WOUND CARE Work Phone: noms CWM FMComment on above:Acute non-recurrent sinusitis of other sinus (Primary Dx)Start: 01-16-2025 End: 10-40-6512Gzgwyunen encounterMojacklyn Howell MD Work Phone: [facility] Jobst VascularStart: 01-13-2025 End: 10-74-4144Ndamsn outpatient visit 25 minutesKel Mici PA-C Work Phone: [facility] CardiologyComment on above: Moderate aortic valve stenosis (Primary Dx); Mixed hyperlipidemiaStart: 01-13-2025 End: 69-66-7438uqokjzhzmxISVPX MICIProMedica Bandon HospitalStart: 01-10-2025 End: 87-85-9169Jwkhbtrvk encounterAmy ElysiaProMedica Physicians Cardiology Start: 11-20-2024 End: 82-59-8588Wyznnf flowsDipesh Dye MANAGER WOUND CARE Work Phone: noms CWM FMStart: 11-20-2024 End: 51-19-7680Hjidof Du Dye MANAGER WOUND CARE Work Phone: noms CWM FMStart: 11-20-2024 End: 54-06-5751Hxgpet outpatient visit 25 minutesLisa aHrdik MANAGER WOUND CARE Work Phone: NOMS CWM FMComment on above:Uncontrolled [...] gangrene, without long-term current use of insulin ([facility]); Overweight (BMI 25.0-29.9); Type 2 diabetes mellitus with hyperglycemia, without long-term current use of insulin ([facility]); Mixed hyperlipidemia ([facility]); Tobacco user; Allergic rhinitis, unspecified seasonality, unspecified trigger; Diabetic polyneuropathy associated with type 2 diabetes mellitus ([facility]); Acute gastritis without hemorrhage, unspecified gastritis typeStart: 11-20-2024 End: 72-53-8071ecaxuegmxiIHGN AICHHOLZNot AvailableStart: 08-22-2024 End: 70-07-5233Tbgonkrtw Result EncounterLisa Dilmaz MANAGER WOUND CARE Work Phone: noms External Department UnsolicitedStart: 08-22-2024 End: 35-48-1767Ezlscmesp Result EncounterLisa Neptalituckerholz MANAGER WOUND CARE Work Phone: noms External Department UnsolicitedStart: 08-20-2024 End: 60-20-6589Ewbyrn outpatient visit 25 minutesTonya Dye MANAGER WOUND CARE Work Phone: noms CWM FMComment on above:Type 2 diabetes mellitus without complication, without long-term current use of insulin ([facility]) (P rimary Dx); Primary hypertension ([facility]); PAD (peripheral artery disease) ([facility]); Overweight (BMI 25.0-29.9); Diabetic polyneuropathy associated with type 2 diabetes mellitus ([facility]); Tobacco user; Hemorrhage due to aspirin therapy; Benign prostatic hyperplasia (BPH) with straining on urination; Diverticulitis; Bilateral carotid bruitsStart: 08-20-2024 End: 43-03-1333Aroknp flowsheetLisa Neptalihholz MANAGER WOUND CARE Work Phone: noms CWM FMStart: 08-20-2024 End: 30-31-6413Ovaidi flowsheetLisa Aichholz MANAGER WOUND CARE Work Phone: noms CWM FMStart: 08-20-2024 End: 48-17-6454deadnnjafsGFUW AICHHOLZNot AvailableStart: 07-22-2024 End: 18-45-0702Dzfndn flowsheetLisa Aichholz MANAGER WOUND CARE Work Phone: noms CWM FMStart: 07-22-2024 End: 01-25-7544Wycxme flowsheetLisa Aichholz MANAGER WOUND CARE Work Phone: noms CWM FMStart: 07-22-2024 End: 61-49-0851Tbviyi outpatient visit 25 minutesLisa Aichholz MANAGER WOUND CARE Work Phone: NOKW CWM FMComment on above:Acute gastritis without hemorrhage, unspecified gastritis type (Primary Dx); Overweight (BMI 25.0-29.9); Primary hypertension (CMS/HCC); Uncontrolled type 2 diabetes mellitus with hyperglycemia (CMS/HCC); PAD (peripheral artery disease) (CMS/HCC); Benign prostatic hyperplasia (BPH) with straining on urination; Diabetic polyneuropathy associated with type 2 diabetes mellitus (CMS/HCC)Start: 07-22-2024 End: 29-45-3877oangsgpbedTXGC AICHHOLZNot AvailableStart: 06-24-2024 End: 26-24-0097Jvsjhhtpw Result EncounterLisa Aichholz MANAGER WOUND CARE Work Phone: noms External Department UnsolicitedStart: 06-24-2024 End: 95-99-2985Rgbknnjho Result EncounterLisa Aichholz MANAGER WOUND CARE Work Phone: noms External Department UnsolicitedStart: 06-04-2024 End: 48-41-6080Rvvvww flowsheetLisa Aichholz MANAGER WOUND CARE Work Phone: N[facility] CWM FMStart: 06-04-2024 End: 79-56-0672Nozjcs flowsheetLisa Aichholz MANAGER WOUND CARE Work Phone: noms CWM FMStart: 06-04-2024 End: 84-87-1413Rpbour outpatient visit 25 minutesLisa Aichholz MANAGER WOUND CARE Work Phone: noms CWM FMComment on above:Primary hypertension (CMS/HCC) (Primary Dx); Type 2 diabetes mellitus with diabetic peripheral angiopathy without gangrene, without long-term current use of insulin ([facility]); Uncontrolled type 2 diabetes mellitus with hyperglycemia ([facility]); PAD (peripheral artery disease) ([facility]); Diabetic polyneuropathy associated with type 2 diabetes mellitus ([facility]); Heart murmur; Overweight (BMI 25.0-29.9); Tobacco user; Psoriasis ([facility])Start: 06-04-2024 End: 54-88-1889kotiotjmyoILDD AICHHOLZNot AvailableStart: 05-10-2024 End: 07-81-9873Ioswff outpatient visit 15 minutesShen Law MD Work Phone: [address] [facility] Physicians CardiologyComment on above: Primary hypertension (Primary Dx); Nonrheumatic aortic (valve) stenosisStart: 05-09-2024 End: 26-30-0653Zkgkknuwu encounterDasha Logan [facility] Physicians CardiologyStart: 04-15-2024 End: 76-50-7820Nnevdudzj encounterOmid Ricks MD Work Phone: [facility] Jobst VascularStart: 03-29-2024 End: 12-34-3820Tqxzon outpatient visit 40 minutesRonnell Siu MD Work Phone: [facility] Physicians CardiologyComment on above: Primary hypertension (Primary Dx); Nonrheumatic aortic (valve) stenosis; 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Start: 03-29-2024 End: 26-38-4674Bkdeuuyfy encounterWolfgang Monzon [facility] Physicians CardiologyStart: 03-28-2024 End: 12-30-9753Hpdbwjxar encounterDasha [facility] CardiologyStart: 59-08-0104Tpqfzov encounter Chantelle Dye NP Work Phone: [facility] HealthcareStart: 02-08-2024 End: 01-26-8283Bcxbst outpatient visit 25 minutesMojacklyn Howell MD Work Phone: [facility] Vascular Surgery and Wound Care Comment on above:Claudication (CMS-HCC) (Primary Dx); Cigarette smoker motivated to quitStart: 02-05-2024 End: 97-32-6705Hidplxrzn Result EncounterLynn Vallecillo MD Work Phone: noms External Department UnsolicitedStart: 02-05-2024 End: 67-58-8471Rbhnqxgjy Result EncounterLynn Vallecillo MD Work Phone: noms External Department UnsolicitedStart: 01-23-2024 End: 51-22-9705Ywueytzfo Result EncounterGeneric External Data ProviderNOMS External Department UnsolicitedStart: 01-23-2024 End: 76-44-8007Iqdeenqhw Result EncounterGeneric External Data ProviderNOMS External Department UnsolicitedStart: 12-27-2023 End: 09-77-4533mundmdsxukCwygAshland Health Center:[facility] Start: 12-20-2023 End: 64-05-6579jzpzbngyheYaioAshland Health Center:[facility] Start: 12-05-2023 End: 83-78-7953Kdkiwnbzr Result EncounterLisa Hardik MANAGER WOUND CARE Work Phone: noms External Department UnsolicitedStart: 12-05-2023 End: 59-67-4564Jbiojnnij Result EncounterLisa Hardik MANAGER WOUND CARE Work Phone: noms External Department UnsolicitedStart: 11-29-2023 End: 24-45-6336Iudnbk outpatient visit 25 minutesLisa Dye MANAGER WOUND CARE Work Phone: noms CW FMComment on above:Primary hypertension (CMS/HCC) (Primary Dx); BMI 29.0-29.9,adult; Type 2 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, without long- term current use of insulin, unspecified laterality, unspecified retinopathy severity (CMS/HCC); Type 2 diabetes mellitus with diabetic neuropathy, without long-term current use of insulin (CMS/HCC); Sebaceous cyst; 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; Ageusia; Peripheral vascular disease, unspecified (I73.9)Start: 70-86-1342Ukpqyl flowsheetLisa Aichholz MANAGER WOUND CARE Work Phone: noms CWM FMStart: 42-85-8874Xxuwrl flowsheetLisa Aichholz MANAGER WOUND CARE Work Phone: noms CWM FMStart: 16-95-5043Nwbxuwfpmplsr examination doneLisa Aichholz MANAGER WOUND CARE Work Phone: [facility] HealthcareStart: 87-44-1825Jlyikn outpatient visit 15 minutesThomas OlexaFPG [facility] OrthopedicsStart: 10-24-2023 End: 96-26-2922jqgtxvxxcqPopa J Aichholz Work Phone: [facility] Work Phone: Start: 10-24-2023 End: 92-83-2626Shjnhze encounter procedureLisa Aichholz Work Phone: [facility] Start: 01-31-2023 End: 27-35-6883rgqlwjdexbKCT TONAY AICHHOLZFacility:L9Svsuu: 01-27-2023 End: 95-68-1897bwvetfclajLAR TONYA AICHHOLZFacility:Q3Atsiw: 12-21-2022 End: 28-13-5982waxygamckmYW OMID ABBASFacility:D8Eridb: 91-95-9555Opgpigjxo for other preprocedural examinationMR KRISHNA VALDES .[facility] Hospitaltart: 11-18-2022 End: 02-45-7375zxjokihmirZZ KRISHNA VALDES .Facility:H4Lhuix: 11-18-2022 End: 03-62-1868Pyisajckx for other preprocedural examinationMR KRISHNA VALDES . Facility:E6Qwgii: 10-25-2022 End: 65-13-0653qbpzzymaftOjghyig R NILLFacility:[facility] Hospitaltart: 10-25-2022 End: 55-84-5239Xjgptdv encounter procedureMichael R NILL General Surgery Nill/Said [place] Start: 10-12-2022 End: 87-47-6439wlfmepxbaaKcczwki R NILLFacility:CD:[id number]: 10-07-2022 ambulatoryCNP TONYA HARDIKFacility:H5Kuswp: 09-22-2022 End: 52-30-0626bonuytwzeiBIQ TONYA HARDIKFacility:W4Slqgp: 08-30-2022 End: 58-80-6146inwuoelbqfLnxeefl R NILLFacility: BellevueStart: 08-30-2022 End: 91-98-7078Rxiuosy encounter procedureMichael R NILL General Surgery Nill/Said [place] Start: 05-22-3456kertitmreqRlyyarn R NILLFacility:[facility] HospitalevueStart: 06-21-2022 End: 81-22-0074tgngdijndaRR JIIESHA ABBASFacility:N5Newzw: 06-14-2022 End: 33-41-2854ftwjwucsgwFEE TONYA HARDIKFacility:B4Jrxfl: 04-27-2022 End: 90-57-4109nffojaepghLR BINDU CONRADFacility:Y3Lmgav: 04-14-2022 End: 43-52-9102xablavohejDBI TONYA HARDIKFacility:A9Dwrxm: 04-06-2022 End: 49-63-5359uuclmnuwnnVTJ TONYA HARDIKFacility:P8Buvta: 03-27-2022 End: 38-36-7885Kqdhzjrple and management of inpatientDR IRENE GONZALEZFacility:H1 Start: 03-26-2022 End: 27-57-4502ifguonngtyQJ IRENE GONZALEZFacility:E9Kgnwl: 12-16-2021 End: 25-03-0872vlobcecnutXautty Olexa Other [place] Other Start: 88-28-4499Rgombyznj encounterThchao OlexaFPG [facility] OrthopedicsStart: 12-14-2021 End: 37-82-4267deuvzdivtkVtwzey Olexa Other [place] Other Start: 18-53-7386Humvai outpatient visit 15 minutes Shen OlexaFPG [facility] BellevueStart: 71-47-3320Ccxjhghxftixu examination Martha Howell MD Work Phone: [phone]Ho[facility] Work Phone: Start: 08-19-2021 End: 26-73-9250cfznrixtvuBiufqp Olexa Other [facility] Fannect Other Start: 04-70-4396Iqcbgx outpatient visit 10 minutes Shen OlexaFPG [facility] BellevueStart: 18-19-1942Ruduacmax encounter Krsihna Shipman Vascular SurgeryStart: 26-68-2818Kkcluq outpatient new 30 minutesThomas OlexaFPG [facility] [place] Procedures DateProcedureProcedure DetailPerforming ClinicianStart: 53-55-9926Rcvarjzbpqf timePromedica Pharmacy Medication Management Work Phone: [phone]: 02-22-6423Fuwzsggfiso timePromedica Pharmacy Medication Management Work Phone: [phone]: 11-83-9289Dpagxgcjgsh timePromedica Pharmacy Medication Management Work Phone: [phone]: 01-22-7893Lhpoikowblc timePromedica Pharmacy Medication Management Work Phone: Start: 41-87-1883Vlukmjeoeyb timePromedica Pharmacy Medication Management Work Phone: Start: 08-92-9397Aeulfggznaq timePromedica Pharmacy Medication Management Work Phone: Start: 33-54-3217Kweuopc of coronary artery bypass graftingS/P CABG (coronary artery bypass graft)Krishna Paris [facility] Work Phone: Start: 13-02-3085Ajsbhllz screenNA NIAComment on above:Performed By: #### TSC #### [facility] ([facility]) [address] [place] [address] VIRStart: 90-10-8315Onfhf depression screening assessment Krishna Paris [facility] Work Phone: Start: 97-51-9810Lmwlav-up visitFollow-upP CRISTOPHER KRAMERStart: 98-55-3762Ine routine ecg w/least 12 lds w/i&rP Cristopher Kramer MD Work Phone: Start: 62-67-7560AWU CBC WITH AUTO DIFFLisa Aichholz MANAGER WOUND CARE Work Phone: Start: 05-45-9572BWL CBC WITH AUTO DIFFLisa Aichholz MANAGER WOUND CARE Work Phone: Start: 45-94-5426Owkaumsfpl glycosylated d9wUjkc Aichholz MANAGER WOUND CARE Work Phone: Start: 98-44-7319YBXBAKJBQ BLOOD PRESSUREGeneric External Data ProviderStart: 26-46-0996Rrpfev-up visitFollow-upKEL MICIStart: 79-55-5304Xuzroppmds glycosylated y7fCznt Aichholz MANAGER WOUND CARE Work Phone: Start: 59-74-4509Evqbvu scan extracranial art compl bi studyLisa Aichholz MANAGER WOUND CARE Work Phone: Start: 00-24-5746MCA BASIC METABOLIC PANELLisa Aichholz MANAGER WOUND CARE Work Phone: Start: 40-12-5694DUM HEAD/BRAIN WO/W Carlos Vallecillo MD Work Phone: Start: 22-41-2263XEUVXJJUX BLOOD PRESSUREGeneric External Data ProviderStart: 14-83-6796UC SINUS WO CONLisa Aichholz MANAGER WOUND CARE Work Phone: Start: 44-86-6339TGA HEMOGLOBIN A4ZFrah Aichholz MANAGER WOUND CARE Work Phone: Start: 83-35-2842Bgyed X-ray of bilateral elbowsTonya Dye Work Phone: Start: 80-17-4172PXV screeningCNP TONYA DYEComment on above:Performed By: #### BMP #### [facility] [address] [place] [address] Dr. Lucho De LeónStart: 78-10-3832Mqvkixqozl biopsyMichael NILL Start: 74-51-3249Yrmtckeqpu of Lower Intestinal Tract, Via Natural or Artificial Opening EndoscopicEDITAP TONYA DYEStart: 03-28-2022 Inspection of Upper Intestinal Tract, Via Natural or Artificial Opening EndoscopicCNP TONYA DYEStart: 87-04-2513Nnkjcduoejp of Nonautologous Red Blood Cells into Peripheral Vein, Percutaneous ApproachCNMarlene DYEStart: 55-87-9928Vvvhmenucqxkig and angioplasty of common femoral arteryMichael NILL Start: 23-13-7349Vtegobnpgzm of superficial femoral arteryMichael NILL Start: 54-00-0786EbrlhfzvgdaXgff Aichholz MANAGER WOUND CARE Work Phone: History of coronary artery bypass graftingS/P CABG (coronary artery bypass graft)Jm Curry [facility] Work Phone: [phone] of coronary artery bypass graftingS/P CABG (coronary artery bypass graft)Krishna Paris [facility] Work Phone: History of coronary artery bypass graftingS/P CABG (coronary artery bypass graft)[facility] Work Phone: History of coronary artery bypass graftingS/P CABG (coronary artery bypass graft)[facility] 1History of coronary artery bypass graftingHx of CABGTonya Dye MANAGER WOUND CARE-C Work Phone: History of coronary artery bypass graftingHx of CABG Tonya Dye MANAGER WOUND CARE-CHistory of coronary artery bypass graftingS/P CABG (coronary artery bypass graft)[facility] 1History of coronary artery bypass graftingS/P CABG (coronary artery bypass graft)[facility] 1History of coronary artery bypass graftingS/P CABG (coronary artery bypass graft)[facility] 1History of coronary artery bypass graftingS/P CABG (coronary artery bypass graft)[facility] 1History of coronary artery bypass graftingHx of CABGTonya Dye MANAGER WOUND CARE-CHistory of coronary artery bypass graftingS/P CABG (coronary artery bypass graft)[facility] Work Phone: History of coronary artery bypass graftingS/P CABG (coronary artery bypass graft)Ronnell Siu MD Work Phone: History of repair of musculotendinous cuff of shoulder Hx of rotator cuff surgeryTonya Dye MANAGER WOUND CARE-C Work Phone: Repair of musculotendinous cuff of shoulderMichael NILL Plan of Treatment DateCare ActivityDetailAuthorStart: 40-27-2831Datidrx CounselingTobacco CounselingWyandot Memorial Hospital SystemStart: 52-31-6560Jkhotlj CounselingTobacco CounselingWyandot Memorial Hospital SystemStart: 48-49-6112Verliisos for malignant neoplasm of colonNOMS HealthcareStart: 27-40-8767Kdmwt BMI ScreeningAdult BMI ScreeningWyandot Memorial Hospital SystemStart: 60-43-5104Ctzirw Use: Cardiovascular Statin Use: CardiovascularWyandot Memorial Hospital SystemStart: 78-91-8406Kttxae Use: DiabeticStatin Use: DiabeticWyandot Memorial Hospital SystemStart: 34-16-4009Pbxxupc ScreeningTobacco ScreeningWyandot Memorial Hospital SystemStart: 22-75-7730Flzpt BMI ScreeningAdult BMI ScreeningWyandot Memorial Hospital SystemStart: 49-32-7909Touod BMI ScreeningAdult BMI ScreeningWyandot Memorial Hospital SystemStart: 91-86-2990Rjdpzm Use: CardiovascularStatin Use: CardiovascularWyandot Memorial Hospital SystemStart: 06-17-2026 Statin Use: DiabeticStatin Use: DiabeticWyandot Memorial Hospital SystemStart: 06-13-2026 Depression ScreeningDepression ScreeningWyandot Memorial Hospital SystemStart: 06-13-2026 Statin Use: CardiovascularStatin Use: CardiovascularWyandot Memorial Hospital System Start: 79-57-2974Iksdcub ScreeningTobacco ScreeningWyandot Memorial Hospital SystemStart: 90-47-7963Fsolzgn ScreeningTobacco ScreeningWyandot Memorial Hospital SystemStart: 49-07-6669Xlksm BMI ScreeningAdult BMI ScreeningWyandot Memorial Hospital SystemStart: 20-08-1727Oaihyga ScreeningTobacco ScreeningWyandot Memorial Hospital SystemStart: 40-36-6560Rpcjv BMI ScreeningAdult BMI ScreeningWyandot Memorial Hospital SystemStart: 60-30-1730Qmwicsj ScreeningTobacco ScreeningWyandot Memorial Hospital SystemStart: 38-58-2330Kxcos BMI ScreeningAdult BMI ScreeningWyandot Memorial Hospital SystemStart: 51-45-3467Eoyhlea ScreeningTobacco ScreeningWyandot Memorial Hospital SystemStart: 58-63-3152Nqeyc screening for proteinDiabetes: Urine Protein ScreeningBEAR RIVER VALLEY [facility] HealthcareStart: 04-02-2026 End: 95-23-3770Spbyxwh encounter procedureSelect Medical [facility] Centertart: 06-12-2026Medicare Annual Wellness (AWV)Medicare Annual Wellness (AWV)[facility] HealthcareStart: 61-09-9633KOK ( or age 60+ yrs) (1 - 1-dose 75+ series) RSV ( or age 60+ yrs) (1 - 1-dose 75+ series)[facility] Start: 03-04-2026 End: 60-36-5144Moloyha encounter procedureAshtabula General Hospital - VascularStart: 78-58-4350Sicakd Use: CardiovascularStatin Use: Cardiovascular [facility] SystemStart: 00-46-0477Cxury BMI ScreeningAdult BMI Screening [facility] SystemStart: 46-35-5597Memqhje ScreeningTobacco Screening [facility]htart: 02-20-2026 End: 19-20-0039KZ.doppler Extremity arteries - bilateral for physiologic artery studyVas art doppler lwr bilat mult lev/PVR Vascular Ultrasound Routine Claudication ([facility]) PAD (peripheral artery disease) ([facility]) History of arterial bypass of lower extremity Expected: 02/20/2026 (Approximate), Expires: 02/20/2027ProAshtabula County Medical CenterKeraFAST SystemComment on above:Expected: 02/20/2026 (Approximate), Expires: 02/20/2027Start: 02-20-2026 End: 02-43-8800JO.doppler Lower extremity vessel - right for graftVas art duplex lwr graft scan right Vascular Ultrasound Routine Claudication ([facility]) PAD (peripheral artery disease) ([facility]) History of arterial bypass of lower extremity Expected: 02/20/2026 (Approximate), Expires: 02/20/2027[facility] Work Phone: Comment on above:Expected: 02/20/2026 (Approximate), Expires: 02/20/2027Start: 28-26-8988Gwafi BMI ScreeningAdult BMI Screening [facility]art: 28-16-8542Usceian ScreeningTobacco Screening [facility] Healthtart: 37-75-3897Iocfodaf screeningDiabetes: Retinopathy ScreeningSaint John's Aurora Community HospitalStart: 10-14-2025 End: 29-48-4456WXF panel - Blood by Automated countCBC Lab Routine ASCVD (arteriosclerotic cardiovascular disease) Expected: 10/14/2025 (Approximate), Expires: 07/15/2026ProSelect Medical Cleveland Clinic Rehabilitation Hospital, BeachwoodComment on above:Expected: 10/14/2025 (Approximate), Expires: 07/15/2026Start: 10-14-2025 End: 11-74-5812Upayfeyxxitkq metabolic 2000 panel - Serum or PlasmaCMP Lab Routine ASCVD (arteriosclerotic cardiovascular disease) Expected: 10/14/2025 (Approximate),Expires: 07/15/2026ProOhiohealth Southeastern Medical Center SystemComment on above: Expected: 10/14/2025 (Approximate), Expires: 07/15/2026Start: 09-15-2025 End: 74-96-1464Ywuguoldjyal / ancillary services ljgorilpti79/01/2025 8:30 AM EST Ancillary Procedure [facility] [address] [place] [address] Kamran Rebolledo MD [address] [place] [address] [facility] [address] [facility] Physicians CardiologyStart: 09-14-2025 End: 40-77-5646Euvlsdyz Telemetry (In Office)Wireless Telemetry (In Office) Cardiac Services Routine Postoperative atrial fibrillation ([facility])Expected: 09/14/2025, Expires: 07/15/2026[facility] Hospital SystemComment on above:Expected: 09/14/2025, Expires: 07/15/2026Start: 14-93-3670Aasgrlgkbo A1c measurement Diabetes: Hemoglobin W5SGAGF HealthcareStart: 08-25-2025 End: 93-80-9865Dkcvrk-up mimcfsfpg12/10/2025 2:00 PM EST Follow Up Anticoagulation [facility] - Pharmacy Medication Management [address] [place] [address] ReePnkkevAshtabula General Hospital - Pharmacy Medication ManagementStart: 08-11-2025 End: 87-04-0469Ddvxtz-up /27/2025 3:00 PM EDT Follow Up Anticoagulation [facility] Pharmacy Medication Management [address] [place] [address] IsdZxnkeyAshtabula General Hospital - Pharmacy Medication ManagementStart: 08-05-2025 End: 63-16-1082Wqvoggef Xzncitj9808/05/2025 1:00 PM EDT Clinical Support [facility] - Cardiac Rehab [address] [place] [address] GoeNtjrcuAshtabula General Hospital - Cardiac RehabStart: 08-04-2025 End: 22-93-0412Idtqxrc encounter znnqoczhp69/20/2025 1:00 PM EDT Appointment [facility] - Cardiovascular [address] [place] [address] Kamran Rebolledo MD [address] [place] [address] [facility] - CardiovascularStart: 07-28-2025 End: 92-81-8487Utcukz-up fjfsokefm35/13/2025 3:45 PM EDT Follow Up Anticoagulation [facility] Pharmacy Medication Management [address] [place] [address] HsyQfeqavAshtabula General Hospital - Pharmacy Medication ManagementStart: 07-18-2025 End: 35-04-2140Djowmf-up jfwiithuq40/03/2025 3:00 PM EDT Follow Up Anticoagulation [facility] Pharmacy Medication Management [address] [place] [address] PnvDaqxjxMarion [facility] Pharmacy Medication ManagementStart: 07-15-2025 End: 77-13-1695Sgetqc-up magckcgax20/30/2025 3:30 PM EDT Follow Up Anticoagulation [facility] Pharmacy Medication Management [address] [place] [address] DufCvnfbgAshtabula General Hospital - Pharmacy Medication ManagementStart: 07-15-2025 End: 08-97-4743Nxwx complete W/O contrastEcho complete W/O contrast Echocardiography Routine Nonrheumatic aortic (valve) stenosis Expected: 0 07/15/2025, Expires: 07/15/2026[facility] Work Phone: Comment on above:Expected: 07/15/2025, Expires: 07/15/2026Start: 07-15-2025 End: 37-11-7670Vjotiht encounter iyxxxzcqj04/30/2025 1:15 PM EDT Office Visit [facility] [address] [place] [address] Kamran Rebolledo MD [address] [place] [address] [facility] CardiologyStart: 07-09-2025 End: 41-99-3934Fnrkfn-up /24/2025 2:00 PM EDT Follow Up Anticoagulation [facility] Pharmacy Medication Management [address] [place] [address] [facility]aiSdfyilMercy Health [facility] - Pharmacy Medication ManagementStart: 07-07-2025 End: 07-34-7588Bmbhxvx encounter mlxjbruer59/22/2025 11:20 AM EDT [facility] - [facility] [address] [place] [address] [phone] Physicians [facility]tart: 06-30-2025 End: 38-44-6138Jmblqil encounter iemxvthzo34/15/2025 1:00 PM EDT Office Visit [facility] [address] [place] [address] Tonya Dye, SHIVAM [address] [place] [address] [facility] CWBrayan FMStart: 57-02-9932Otbqzqwdjh A1c measurement Diabetes: Hemoglobin S0BGJVZSaint John's Aurora Community HospitalStart: 36-11-4984JNRTT-19 Vaccine ( season)COVID-19 Vaccine ( season)[facility] Start: 19-73-0812BRIUQ-19 Vaccine ( season)COVID-19 Vaccine ( season)[facility]: 23-04-0446Iajkjaywj vaccination [facility]art: 06-13-2025 End: 33-07-6004Mnfehfqdn to same day surgery hqxvql1206/13/2025 7:30 AM EDT - 06/13/2025 12:30 PM EDT Surgery [facility] - Surgery [address] [place] [address] Sydni Foy MD [address], [address] [place], [place] [id number] CORONARY ARTERY BYPASS GRAFTX3/EVH/NOHEMI/ REPAIR/REPLACE VALVE AORTICProCincinnati Shriners Hospital SurgeryComment on above:CORONARY ARTERY BYPASS GRAFTX3/EVH/NOHEMI/ REPAIR/REPLACE VALVE AORTICStart: 06-13-2025 End: 83-47-8767WKHTHKNP ARTERY BYPASS GRAFT REPAIR/REPLACE VALVE AORTICCORONARY ARTERY BYPASS GRAFT REPAIR/REPLACE VALVE AORTIC CORONARY ARTERY DISEASE AORTIC STENOSIS 06/13/2025 7:30 AM EDTPMercy Health [facility]ard Hospital SystemStart: 06-13-2025 Subsequent hospital visit by qlueqjuwb79/29/2025 7:30 AM EDT Hospital Encounter [facility] Surgery [address] [place] [place] [address] Sydni Foy MD [address] [facility], [address] [place], [place] [address] [facility] - Surgery Start: 06-06-2025 End: 30-99-4697Hnguwdi encounter cbonxikdo63/22/2025 2:45 PM EDT Appointment [facility] [address] [address] [phone] [facility] - VascularStart: 06-06-2025 End: 93-26-4096Aitxjjd encounter procedureProMedica [facility] - VascularStart: 06-04-2025 End: 38-14-3472Ybdcfavhh to same day surgery qpqhum9006/04/2025 11:28 AM EDT - 06/04/2025 1:26 PM EDT Surgery [facility] - Cardiac Cath [address] [place] [address] Marlene Kramer MD [address] [place] [address] Structural Heart ProcedureProMckitrick Hospital - Cardiac CathComment on above: Structural Heart ProcedureStart: 93-15-0868Oolvgmblwl hospital visit by ibyxzphsk79/20/2025 11:28 AM EDT Hospital Encounter [facility] - Cardiac Cath [address] [place] [address] Marlene Kramer MD [address] [place] [address] Severe aortic valve stenosisProMckitrick Hospital - Cardiac Cath Comment on above:Severe aortic valve stenosisStart: 06-04-2025 End: 09-32-5280Ouzaufr encounter lvgittxkc16/20/2025 11:00 AM EDT Appointment [facility] Echocardiogram [address] [place] [address] Marlene Kramer MD [address] [place] [address] [facility] - Echocardiogram Start: 06-02-2025 End: 33-02-2185Dtnowtx encounter procedureProMedica Physicians CardiologyStart: 84-31-3319Nykkl BMI ScreeningAdult BMI ScreeningWyandot Memorial Hospital SystemStart: 77-11-7933Jsehola ScreeningTobacco ScreeningDuke Healthtart: 05-09-2025 End: 09-16-8314Pdcjphl encounter ieyrbqkpp52/25/2025 1:40 PM EDT Appointment [facility] [place] [address] [place] [address] [facility] [place] - CTStart: 05-01-2025 End: 25-22-3322Jhaecfjyq to same day surgery xmfkxn3605/01/2025 10:30 AM EDT - 05/01/2025 11:30 AM EDT Surgery [facility] - Cardiac Cath [address] [place] [address] Miah Felix MD [address] [place] [address] Cardiac Invasive [facility] Cardiac CathComment on above:Cardiac InvasiveStart: 49-57-8555Otwhmarsfl hospital visit by rtsilgecu35/17/2025 10:30 AM EDT Hospital Encounter [facility] Cardiac Cath [address] [place] [address] Miah Felix MD [address] [place] [address] Severe aortic valve stenosisProCincinnati Shriners Hospital Cardiac CathComment on above:Severe aortic valve stenosis Start: 50-80-1880Wsrrj BMI ScreeningAdult BMI ScreeningRegional Medical Center Start: 49-32-0546Zzszagu ScreeningTobacco ScreeningDuke Healthtart: 04-21-2025 End: 99-17-5873VAJ Chest vessels and Abdominal vessels and Pelvis vessels W contrast IVCT CTA TAVR Imaging Routine Nonrheumatic aortic (valve) stenosis Expected: 04/21/2025, Expires: 04/21/2026[facility] Work Phone: Comment on above:Expected: 04/21/2025, Expires: 04/21/2026Start: 04-21-2025 End: 50-12-8300Gzoebbn encounter aipzedupg04/07/2025 2:00 PM EDT Office Visit [facility] [address] [place] [address] Marlene Kramer MD [address], [place] [phone] [facility] CardiologyStart: 04-14-2025 End: 64-20-0900Zreo complete W/O contrastEcho complete W/O contrast Echocardiography Routine Moderate aortic valve stenosis Expected: 04/14/2025 (Approximate), Expires: 01/13/2026[facility] Work Phone: Comment on above:Expected: 04/14/2025 (Approximate), Expires: 01/13/2026Start: 04-14-2025 End: 36-27-8051Chusjph encounter zkuygtcvg41/30/2025 10:30 AM EDT Appointment [facility] [address] [place] [address] Vanessa Persaud PA-C [address] [place] [address] [facility]: 04-08-2025 End: 76-74-2925Ogsdecm [Enzymatic activity/volume] in Serum or PlasmaAmylase Lab Routine Abdominal pain, generalized Expected: 04/08/2025 (Approximate), Expires: 04/08/2026[facility] HealthcareComment on above:Expected: 04/08/2025 (Approximate), Expires: 04/08/2026Start: 04-08-2025 End: 87-93-9826OFX W Auto Differential panel - BloodCBC and differential Lab Routine Abdominal pain, generalized Expected: 04/08/2025 (Approximate), Expires: 04/08/2026[facility] Work Phone: Comment on above:Expected: 04/08/2025 (Approximate), Expires: 04/08/2026Start: 04-08-2025 End: 95-84-0068Ucthaasetrzbc metabolic 2000 panel - Serum or PlasmaComprehensive metabolic panel Lab Routine Abdominal pain, generalized Expected: 04/08/2025 (Approximate), Expires: 04/08/2026[facility] HealthcareComment on above:Expected: 04/08/2025 (Approximate), Expires: 04/08/2026Start: 04-08-2025 End: 06-28-9433Nvcnvqmwdwh sedimentation rateSedimentation rate, automated Lab Routine Abdominal pain, generalized Expected: 04/08/2025 (Approximate), Expires: 04/08/2026[facility] HealthcareComment on above:Expected: 04/08/2025 (Approximate), Expires: 04/08/2026Start: 04-08-2025 End: 93-69-1389Qxdlsu [Enzymatic activity/volume] in Serum or PlasmaLipase Lab Routine Abdominal pain, generalized Expected: 04/08/2025 (Approximate), Expires: 04/08/2026[facility] HealthcareComment on above:Expected: 04/08/2025 (Approximate), Expires: 04/08/2026Start: 04-08-2025 End: 22-22-5970Vdtztesttq complete panel - UrineUrinalysis with reflex microscopic (clean catch) Lab Routine Abdominal pain, generalized Expected: 0 04/08/2025 (Approximate), Expires: 04/08/2026[facility] HealthcareComment on above: Expected: 04/08/2025 (Approximate), Expires: 04/08/2026Start: 04-08-2025 End: 16-73-0782GK GallbladderUS gallbladder Imaging Routine RUQ pain Expected: 04/08/2025 (Approximate), Expires: 04/08/2026[facility] Work Phone: Comment on above:Expected: 04/08/2025 (Approximate), Expires: 04/08/2026Start: 04-08-2025 End: 09-47-5785Tnohufg encounter tnwhccyxa82/24/2025 1:00 PM EDT Office Visit [facility] [address] [place] [address] Tonya Dye, SHIVAM [address] [place] [address] ArrivedDO[facility] FMComment on above:ArrivedStart: 03-29-2025 Adult BMI ScreeningAdult BMI ScreeningProOhiohealth [facility] SystemStart: 03-29-2025 Tobacco ScreeningTobacco ScreeningProOhiohealth Southeastern Medical Center SystemStart: 03-27-2025 End: 14-19-6600XDU W Auto Differential panel - BloodCBC and differential Lab Routine Type 2 diabetes mellitus with diabetic polyneuropathy, without long-term current use of insulin (HCC) Type 2 diabetes mellitus with diabetic peripheral angiopathy without gangrene, without long-term current use of insulin (HCC) Tobacco user Expected: 03/27/2025 (Approximate), Expires: 03/27/2026[facility] Work Phone: Comment on above:Expected: 03/27/2025 (Approximate), Expires: 03/27/2026Start: 03-27-2025 End: 32-99-5026Sfbglmgzzggag metabolic 2000 panel - Serum or PlasmaComprehensive [...] (HCC) Mixed hyperlipidemia Expected: 03/27/2025 (Approximate), Expires: 03/27/2026[facility] HealthcareComment on above:Expected: 03/27/2025 (Approximate), Expires: 03/27/2026Start: 03-27-2025 End: 34-20-6957Uqndd 1996 panel - Serum or PlasmaLipid panel Lab Routine Type 2 diabetes mellitus with diabetic peripheral angiopathy without gangrene, without long-term current use of insulin (HCC) Type 2 diabetes mellitus with hyperglycemia, without long-term current use of insulin (HCC) Mixed hyperlipidemia Expected: 03/27/2025 (Approximate), Expires: 03/27/2026[facility] HealthcareComment on above:Expected: 03/27/2025 (Approximate), Expires: 03/27/2026Start: 03-27-2025 End: 63-15-9179Mxvumylxpnuz/Creatinine panel in random UrineMicroalbumin / creatinine, urine ratio Lab Routine Type 2 diabetes mellitus with diabetic polyneuropathy, without long-term current use of insulin (HCC) Primary hypertension Type 2 diabetes mellitus with diabetic peripheral angiopathy without gangrene, without long-term current use of insulin (HCC)Type 2 diabetes mellitus with hyperglycemia, without long-term current use of insulin (HCC) Expected: 03/27/2025 (Approximate), Expires: 03/27/2026[facility] HealthcareComment on above:Expected: 03/27/2025 (Approximate), Expires: 03/27/2026Start: 03-27-2025 End: 71-50-3711Bimyijz encounter procedureNOMS [facility] FMComment on above:Type 2 diabetes mellitus with [...] user; Screening for prostate cancerStart: 03-27-2025 End: 31-63-6608Sjywsdwn specific Ag [Mass/volume] in Serum or PlasmaPSA Lab Routine Screening for prostate cancer Expected: 03/27/2025 (Approximate), Expires: 03/27/2026[facility] HealthcareComment on above:Expected: 03/27/2025 (Approximate), Expires: 03/27/2026Start: 03-27-2025 End: 05-92-6447Szihaxjqaw complete panel - UrineUrinalysis with reflex microscopic (clean catch) Lab Routine Type 2 diabetes mellitus with diabetic polyneuropathy, without long-term current use of insulin (HCC) Primary hypertension Type 2 diabetesmellitus with diabetic peripheral angiopathy without gangrene, without long-term current use of insulin (HCC) Type 2 diabetes mellitus with hyperglycemia, without long-term current use of insulin (HCC) Tobacco user Expected: 03/27/2025 (Approximate), Expires: 03/27/2026[facility] HealthcareComment on above:Expected: 03/27/2025 (Approximate), Expires: 03/27/2026Start: 99-60-3440Wrtzy screening for proteinDiabetes: Urine Protein ScreeningBEAR RIVER VALLEY [facility] HealthcareStart: 02-26-2025 End: 51-10-5672Nwepznj encounter fspdawqlk45/14/2025 2:20 PM EDT Office Visit [facility] [address] [place] [address] Tonya Dye NP [address] [place] [address] GEENA OLSON FMStart: 05-14-2025Medicare Annual Wellness (AWV) Medicare Annual Wellness (AWV)[facility] HealthcareStart: 02-20-2025 End: 97-19-8969Dvoffva encounter procedureProMedica Physicians Vascular Surgery and Wound CareStart: 54-37-7906Wiwdbmpfbx A1c measurementDiabetes: Hemoglobin L4CYHVH HealthcareStart: 25-27-3962Lilvw BMI ScreeningAdult BMI Screening [facility] SystemStart: 84-97-1219Uccpgpp ScreeningTobacco Screening [facility] SystemStart: 01-13-2025 End: 77-75-4616Nztqfcm encounter dlovtwadb96/31/2025 9:00 AM EDT Office Visit [facility] [address] [place] [address] Vanessa Persaud PA-C [address] [place] [address] [facility] CardiologyStart: 94-44-2675JEVMO- 19 Vaccine ( season)COVID-19 Vaccine ( season)[facility] SystemStart: 02-86-9325Lcwfxgmo screeningDiabetes: Retinopathy Screening [facility] HealthcareStart: 11-20-2024 End: 64-66-2544Lzhhikq encounter fhcawkjen73/05/2025 2:00 PM EST Office Visit [facility] [address] [place] [address] Tonya Dye, SHIVAM [address] [place] [address] Primary hypertension (CMS/HCC) (Primary Dx); Type 2 diabetes mellitus with diabetic peripheral angiopathy without gangrene (CMS/HCC); Type 2 diabetes mellitus with unspecified diabetic retinopathy without macular edema (CMS/HCC); Heart failure, unspecified (CMS/HCC); Type 2 diabetes mellitus with h yperglycemia (CMS/HCC); Type 2 diabetes mellitus with diabetic polyneuropathy (CMS/HCC); PAD (peripheral artery disease) ([facility]/HCC); Type 2 diabetes mellitus with diabetic peripheral angiopathy without gangrene, without long-term current use of insulin ([facility]); Overweight (BMI 25.0-29.9); Type 2 diabetes mellitus with hyperglycemia, without long-term current use of insulin ([facility]/HCC); Mixed hyperlipidemia ([facility]); Tobacco userNOMS [facility] FMComment on above:Primary hypertension ([facility]/HCC) (Primary Dx); Type 2 diabetes mellitus with diabetic peripheral angiopathy without gangrene ([facility]/HCC); Type 2 diabetes mellitus with unspecified diabetic retinopathy without macular edema ([facility]); Heart failure, unspecified ([facility]); Type 2 diabetes mellitus with hyperglycemia ([facility]); Type 2 diabetes mellitus with diabetic polyneuropathy ([facility]); PAD (peripheral artery disease) ([facility]); Type 2 diabetes mellitus with diabetic peripheral angiopathy without gangrene, without long-term current use of insulin ([facility]); Overweight (BMI 25.0-29.9); Type 2 diabetes mellitus with hyperglycemia, without long-term current use of insulin ([facility]); Mixed hyperlipidemia ([facility]); Tobacco userStart: 66-57-4518Nodqlwtgmg A1c measurementDiabetes: Hemoglobin A1C [facility] HospitalStart: 09-04-2024 End: 54-96-1153Ijeurnc encounter daajifach89/20/2024 1:00 PM EST Office Visit [facility] [address] [place] [address] Tonya Dye NP [address] [place] [address] [facility] FMStart: 08-20-2024 End: 08-11-1637Cbrlifq encounter procedureNOMS [facility] FMComment on above:Primary hypertension ([facility]/HCC) (Primary Dx); PAD (peripheral artery disease) ([facility]); Overweight (BMI 25.0-29.9); Diabetic polyneuropathy associated with type 2 diabetes mellitus ([facility]); Type 2 diabetes mellitus without complication, without long-term current use of insulin [place] Tobacco userStart: 08-20-2024 End: 68-65-5218CI.doppler Carotid arteries - bilateralVascular US carotid artery duplex bilateral Imaging Routine PAD (peripheral artery disease) ([facility] Type 2 diabetes mellitus without complication, without long-term current use of insulin ([facility]Bilateral carotid bruits Expected: 08/20/2024 (Approximate), Expires: 08/20/2025[facility] Work Phone: Comment on above:Expected: 08/20/2024 (Approximate), Expires: 08/20/2025Start: 00-93-9170Wwirijxmi vaccinationInfluenza Vaccine (#1) [facility] HealthcareComment on above:Postponed from 06/16/2024 (Patient Does Not Have Time)Start: 07-22-2024 End: 44-89-0046Ylsyfcs encounter rtbnyobux28/07/2024 1:40 PM EDT Office Visit [facility] [address] [place] [address] Tonya Dye, SHIVAM [address] [place] [address] [facility]rivedDOCTORS [facility] FMComment on above:ArrivedStart: 06-16-2024 Influenza vaccinationBE[facility]LEY [facility] HealthcareStart: 56-73-9838Pvgaruqyso A1c measurement Diabetes: Hemoglobin P0UTRMW HealthcareStart: 06-04-2024 End: 96-16-3198Cvvzf metabolic 1998 panel - Serum or PlasmaBasic metabolic panel Lab Routine Primary hypertension ([facility]) Type 2 diabetes mellitus with diabe tic peripheral angiopathy without gangrene, without long-term current use of insulin ([facility] Expected: 06/04/2024 (Approximate), Expires: 06/04/2025[facility] HealthcareComment on above:Expected: 06/04/2024 (Approximate), Expires: 06/04/2025Start: 06-04-2024 End: 12-82-6880Aexbempprw A1c/Hemoglobin.total in BloodHemoglobin A1c Lab Routine Type 2 diabetes mellitus with diabetic peripheral angiopathy without gangrene, without long-term current use of insulin (CMS/HCC) Expected: 06/04/2024 (Approximate), Expires: 06/04/2025[facility] Work Phone: Comment on above:Expected: 06/04/2024 (Approximate), Expires: 06/04/2025Start: 06-04-2024 End: 71-69-4860Oxbkzpr encounter gtojrprqf06/20/2024 1:20 PM EDT Office Visit [facility] [address] [place] [address] Tonya Dye NP [address] [place] [address] Primary hypertension (CMS/HCC) (Primary Dx); Type 2 [...] PAD (peripheral artery disease) (CMS/HCC)Start: 05-10-2024 End: 68-93-3158Zmmrhge encounter breyvhljl15/26/2024 12:30 PM EDT [facility] [address] [place] [address] Shen Law MD [address] [facility] [place], [place] [facility]iologyStart: 04-29-2024 End: 21-01-3216Hpytrkt encounter sslagsjra57/15/2024 11:00 AM EDT Appointment [facility] - Echocardiogram [address] [place] [address] Ronnell Siu MD [address] [place] [address] See Mike MD [address] [place] [address] [facility] - EchocardiogramStart: 03-29-2024 End: 08-28-6305Pbfmdel encounter eayosivtb18/14/2024 2:30 PM EDT Office Visit [facility] [address] [place] [address] Ronnell Siu MD [address] [place] [address] [facility] CardiologyStart: 03-29-2024 End: 59-46-1713VP Heart TransesophagealEcho [facility] Echocardiography Routine Nonrheumatic aortic (valve) stenosis Expected: 03/29/2024, Expires: 03/29/2025 [facility] Work Phone: Comment on above:Expected: 03/29/2024, Expires: 03/29/2025Start: 02-27-2024 End: 69-43-1878Fqcfdyd encounter xabzwaylp66/14/2024 3:00 PM EDT Office Visit [facility] [address] [place] [address] Tonya Dye NP [address] [place] [address] [facility] FMStart: 02-08-2024 End: 14-98-9684UP.doppler Extremity arteries - bilateral for physiologic artery studyVas art doppler lwr bilat mult lev/PVR Vascular Ultrasound Routine Claudication [place] Cigarettesmoker motivated to quit Expected: 02/08/2024, Expires: 02/07/2025[facility] Work Phone: Comment on above:Expected: 02/08/2024, Expires: 02/07/2025Start: 02-08-2024 End: 29-02-1001DA.doppler Lower extremity artery - rightVas art duplex lwr single right Vascular Ultrasound Routine Claudication ([facility] Cigarette smoker motivated to quit Expected: 02/08/2024, Expires: 02/07/2025[facility] SystemComment on above:Expected: 02/08/2024, Expires: 02/07/2025Start: 26-12-5886Ttuva screening for proteinDiabetes: Urine Protein ScreeningSaint John's [facility] Community HospitalStart: 17-20-9419NBDNW-19 Vaccine ()COVID-19 Vaccine ()[facility]: 11-29-[facility]23 End: 76-22-8108Yvmpdco encounter tjplfmjag99/14/2024 3:20 PM EST Office Visit [facility] [address] [place] [address] Tonya Dye, MANAGER WOUND CARE [address] [place] [address] [facility]DOCT[facility] FMComment on above:ArrivedStart: 11-29-2023 End: 24-21-2963FA Maxillofacial region WO and W contrast IVCT SINUS WO IV CONTRAST Imaging Routine 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 [facility] Expected: 11/29/2023 (Approximate), Expires: 11/29/2024[facility] HealthcareComment on above: Expected: 11/29/2023 (Approximate), Expires: 11/29/2024Start: 11-29-2023 Hemoglobin A1c measurementDiabetes: Hemoglobin T4EZFYXSaint John's Aurora Community HospitalStart: 11-29-2023 End: 35-08-4322Qjmwpugzws A1c/Hemoglobin.total in BloodHemoglobin A1c Lab Routine Type 2 diabetes mellitus with diabetic neuropathy, without long-term current use of insulin ([facility]) Expected: 11/29/2023 (Approximate), Expires: 02/14/[address] [place] [address] Work Phone: Comment on above:Expected: 11/29/2023 (Approximate), Expires: 11/29/2024Start: 99-15-7561Lmeydbgx screeningDiabetes: Retinopathy ScreeningBE[facility] HealthcareStart: 80-81-7164Anbvuogkkkqpdw of varicella zoster vaccineZoster (Shingles) Vaccine (3 of [address])[facility]: 58-39-9250Aozsafiko aortic aneurysm screeningAbdominal Aortic Aneurysm (AAA) ScreenWilson Street Hospital [facility]: 82-54-2039Ytos Risk ScreeningFall Risk ScreeningDuke Healthtart: 07-49-4167IXsF,Tdap and Td Vaccines (1 - Tdap)DTaP,Tdap and Td Vaccines (1 - Tdap)[facility]: 86-16-2643Irmgn BMI Follow Up PlanAdult BMI Follow Up PlanDuke Healthtart: 83-41-5989Bhwodhst foot examinationDiabetic Foot ExamProJohn [facility] Hospital [facility]: 82-87-0497Dvuqaxhrlr ScreeningDepression ScreeningWilson Street Hospital [facility]: 26-35-6006Irnbworq screeningDiabetic Ophthalmology Exam [facility]: 1951Medicare Annual Wellness (AWV)Medicare Annual Wellness (AWV)[facility] HealthcareStart: 1951Medicare Annual Wellness VisitMedicare Annual Wellness VisitDuke Healthtart: 1950 Screening for malignant neoplasm of colonBE[facility] RIVER VALLEY [facility] HealthcareStart: 53-39-7863Rvjvlq Use: CardiovascularStatin Use: CardiovascularDuke Healthtart: 61-09-3005Rkscijw CounselingTobacco CounselingRegional Medical Center End: 33-57-1247Sjimo metabolic 2000 panel - Serum or PlasmaBasic Metabolic Panel Lab Routine Nonrheumatic aortic (valve) stenosis 1 Occurrences starting 2024 until 04/21/2026[facility] CenterComment on above:1 Occurrences starting 04/21/2025 until 04/21/2026 End: 93-24-0047PWP panel - Blood by Automated countCBC Lab Routine Nonrheumatic aortic (valve) stenosis 1 Occurrences starting 04/21/2025 until 04/21/2026 [facility] SystemComment on above:1 Occurrences starting 04/21/2025 until 04/21/2026T Abdomen and Pelvis W contrast [facility] End: 72-24-6271Rydmt panelLipid panel Lab Routine Mixed hyperlipidemia 1 Occurrences starting 01/13/2025 until 01/13/2026Pro[facility] SystemComment on above:1 Occurrences starting 01/13/2025 until 01/13/2026 Immunizations Immunization DateImmunizationNotesCare IzrhaylqTrbatrgg04-07-5508Plpkmpdx trivalent influenza vaccine, adjuvanted, preservative freeProctor Hospitalmedica [facility] Work Phone: [phone] Medical CenterModzxu34-61-4838Hdduydzs trivalent influenza vaccine, adjuvanted, preservative freeLisa Aichholz MANAGER WOUND CARE Work Phone: [facility] HospitalSovkldiqwz77-79-0601zjdpnrnap virus vaccine, unspecified formulationMojacklyn Howell MD Work Phone: [phone] Medical CenterWmwjff76-75-5584QDTPW-22 (PFIZER) 12Y and olderLisa Aichholz MANAGER WOUND CARE-C Work Phone: [facility]10-19-2023Influenza, High-dose Seasonal, Quadrivalent, Preservative FreeLisa Aichholz MANAGER WOUND CARE Work Phone: [facility] HospitalFgpvodlrjk39-11-0141bttcfqufv virus vaccine, unspecified formulationMojacklyn Howell MD Work Phone: [phone]03-04-2023zoster vaccine recombinantLisa Aichholz MANAGER WOUND CARE Work Phone: noOzarks Medical CenterLuzorrkowz14-88-5242sglhpx vaccine, unspecified formulationMojacklyn Howell MD Work Phone: [phone] Medical CenterZgxkzv22-95-6762ATRUO-17 mRNA Bivalent Booster (Pfizer)Tonya Aichholz MANAGER WOUND CARE-C Work Phone: [facility]10-12-2022influenza, injectable, quadrivalent, preservative freeLisa Aichholz MANAGER WOUND CARE Work Phone: [facility] HospitalQchqnbktjv19-61-7583MJQXE-23 mRNA-1273 (Moderna) Tonya Aminbrett MANAGER WOUND CARE-C Work Phone: [facility]11-03-2021COVID-19 mRNA-1273 (Moderna)Tonya Aminbrett MANAGER WOUND CARE-C Work Phone: [facility]10-14-2021Kenalog -40 mgThomas Olexa Other [place] [employer] Other [id number]-84 Ad26.COV2.S (Jumpzter)Tonya Hardik Work Phone: [facility]11-23-2020 pneumococcal polysaccharide vaccine, 23 valentThomas Olexa Other [place] [employer] Other [id number], injectable, quadrivalent, preservative freeLisa Aichholz MANAGER WOUND CARE Work Phone: [facility] HospitalVezetxwcns66-41-1895nmqagqotr, seasonal, injectableThomas Olexa Other [facility]10-23-2019 pneumococcal conjugate vaccine, 13 valentThomas Olexa Other [place] [employer] Other [id number], high dose seasonal, preservative-freeLisa Aichholz MANAGER WOUND CARE Work Phone: [facility] HospitalWjnfxnrmhm66-59-5504wolmkm vaccine, liveLisa Aichholz MANAGER WOUND CARE Work Phone: [facility] HospitalLgfbtcwpkr73-62-4685chwendl toxoid, adsorbedLisa Aichholz MANAGER WOUND CARE Work Phone: [facility] Payers DatePayer CategoryPayerPolicy [id number]-wyf [id number] OTHER 1.2.840.280647.1.13.693.2.7.9.711539.347396.97484-48-2835Ouzlllx Care Other (unspecified)COMMERCIAL .2.840.408508.1.13.424.2.7.9.698007.513. Medicare1.2.840.259731.1.13.693.2.7.3.982993.92646-67-5091Jkucjst 1.2.840.183347.1.13.693.2.7.3.782732.315 [id number] 2.16840.0.957111.[id number] 2.0.2.511520.9333-10-1950 [id number] 2.0.1.865174.3.579.[id number] 2..1.849073.3.579.2.19632-67-7187Rbggdtc81122208 2.16.840.1.435587.3.57[id number] 2.16.840.1.264669.3.57[id number] 2.16.840.1.771971.3.579.2.93598-92-9510Uollpxy9276169 2.16.840.1.871338.3.579.2.10366-02-8546Vamxurv4211618 2..840.1.021759.3.579.2.50724-58-7230Vprqzxb9578074 2..840.1.836603.3.579.2.64234-64-2057Vphcqon6221625 2.840.1.503787.3.579.2.99807-90-0876Rmfrffs7708392 2.840.1.615707.3.579.2.19073-55-5668Enwvabm3520674 2..840.1.047306.3.579.2.12444-87-2300Oohncsx8663895 2.840.1.095675.3.579.2.03805-43-4352Emskutv3641092 2.840.1.354562.3.579.2.69197-81-0188Gbfhzgo4772811 2.16.840.1.840651.3.579.2.88132-94-0144Cjwvbfm2004778 2.840.1.788160.3.579.2.55229-68-1617Vuotnqc5482586 2.16.840.1.309095.3.579.2.36302-01-1574Hsrxhyc0595325 2.16840.1.324717.3.579.2.34478-27-1775Curifss6912890 2.16.840.1.912952.3.579.2.02670-75-2189Qkekrls27683995 2.16.840.1.656999.3.579.2.977168-33-4873Kdguvwa99634611 2.16840.1.530279.3.579.2.410173-77-3636Dprwikg2838603 2.16840.1.488853.3.579.2.324942-30-5652Cxbhcmi8328099 2.16840.1.273737.3.579.2.735834-12-6049Lmtfdss6700864 2.840.1.925496.3.579.2.621177-16-5669Biqxort4324041 2.840.1.387545.3.579.2.782305-76-2684Luitefm589894526 2.840.1.080362.3.579.2.018522-98-2350Ynqtcus979338913 2.840.1.039494.3.579.2.627057-76-8159Ifgelah187679214 2.840.1.523280.3.579.2.727459-12-4911Jufiyvm041692257 2.840.1.097334.3.57[id number] 2.840.1.123351.3.579.2.663507-31-0519Rnrgucs830346344 2.840.1.690899.3.579.2.076563-75-9575Ttnbvjf252474540 2.840.1.207487.3.579.2.562186-63-2697Rojtzvo127324653 2.16.840.1.549536.3.579.2.388345-65-1509Mzyqofj369530704 2.16.840.1.302672.3.579.2.073426-74-2237Xbwpmpl002174191 2.16840.1.247123.3.579.2.440190-95-9756Huckfuh893224076 2.16840.1.341225.3.579.2.542001-42-8376Dqwsyen358238534 2.840.1.949258.3.579.2.450156-02-4333Kcnlnki990964679 2.840.1.379264.3.579.2.564706-95-8197Rfvicut748201808 2.840.1.007826.3.579.2.443569-01-7364Nphoqjy545009472 2.840.1.908161.3.579.2.866220-11-5818Svenapq622191617 2.840.1.841691.3.579.2.448806-41-5633Ozzfmah872754251 2.840.1.109438.3.579.2.402883-55-2752Wvjjook032857486 2.840.1.387859.3.579.2.584790-48-3280Bdmjkic087514310 2.840.1.049976.3.57[id number] 2.16840.1.727895.3.579.[id number] 2.840.1.980727.3.579.2.0[id number] 2..840.1.798453.3.579.2.[id number] 2.16.840.1.098717.3.579.[id number] 2..0.1.105385.3.579.2.6[id number] 2.16.840.1.70737[id number] rplcb3s5-dm95-6qj2-m6r9-[id number] 8i90155f-7738-9e58-e948-00647o31zr6cEuwcjcn46794554 2.840.1.461363.3.579.2.905Vwqqxct03275298 2.840.1.526483.3.579.2.531 Okdljho84671323 2.0.1.685334.3.579.2.531 Social History DateTypeDetailFacilityStart: 11-26-2020 End: 15-75-3677Azi [facility]tart: 32-14-7149Qvcucmv smoking statusHeavy tobacco smoker (finding)[facility]: 14-18-6581Gvdsxml smoking statusNeverGeneral Surgery [place] Start: 03-60-0281Kldhdix smoking status NHISSmoker (finding)[facility] CenterStart: 20-51-7562Btg Assigned At [facility] Centertart: 10-30-2023 End: 60-64-5292Ontwbtj smoking status NHISSmokes tobacco dailyNOMS Healthcare History of tobacco useCigarette SmokerNOMS HealthcareStart: 11-26-2020 End: 42-94-2579Pftgrqzggu smoked current (pack per day) - Zvetlkgq6FOBJ HealthcareStart: 10-30-2023 End: 88-17-0981Hjfrhfq use and exposureSmokeless tobacco non-userBE[facility] Start: 11-29-2023 End: 02-68-3831Hzticgx intakeLifetime non-drinker (finding)[facility] HospitalStart: 10-22-3601Gwp Assigned At BirthNot on fileBEAR RIVER VALLEY HOSPITAL HealthcareStart: 02-08-2024 End: 95-92-1689Wyqnrqkwq beverage intakeEx-drinker (finding)[facility] [employer] [facility] Healthtart: 60-07-8086Lltachy Commentreports down to 10 cigarettes a day 11/25/21[facility] SystemStart: 29-73-4036VgwDclm (finding)[facility] [facility] HospitalHas the anywayanyday gas, oil, or water [employer] threatened to shut off services in your home in past 12MoNBellevue Hospital Z[facility] SystemHow often to you have a drink containing alcohol?NeverWilson Street Hospital [facility] Medical Equipment Procedure CodeEquipment CodeEquipment Original TextEquipment IdentifierDates [id number], [id number], [id number], [id number]: 09-24-2020 End: 28-00-6446Rfjibuws peripheral artery stent, bare-metal ()[id number] FDAStart: 98-47-3219Wkvda Vsc 6mm 40mm 130cm Dlv Sys Tamra - [id number] FDAStart: 97-45-1966Ozkrs Aor 23mm Crp-Ed Primnt Mg Ease Thermafix Bprth Lp Stnt - [id number] - [id number]: 06-13-2025 Goals DatePatient GoalDesired Activity/StatePersonal health goalComment on above: Evaluation of progress towards goal: patient progressing toward safe discharge. Functional Status DrmzOibgtpkqqmDrbsvaRcerwijy45-25-7124Ooabavy Health Questionnaire 2 item (PHQ- 2) [Reported][facility] HospitalYepiikctya64-92-9151Uodvuydws depression scale (GDS).short version [facility] HospitalOzsgfjgrbz75-48-4252Mfazpmp Health Questionnaire 2 item (PHQ- 2) [Reported][facility] HospitalUfdsgcdbdt91-46-1658Bmbedhb Health Questionnaire 2 item (PHQ- 2) [Reported][facility] HospitalMatthjdrdn35-23-9387Abnzkkgzgw StatusN/AGeneral Surgery [facility] Clinical Notes 03-09-2021 to 08-15-2025 Note Date & SuztHstbFddemtio62-88-9959 Miscellaneous Notes* Telephone Encounter - Fiona Collins - 08/15/2025 2:57 PM EDT Hiren from [facility] P:[phone] option 3 Ref# [id number]. Please call back to clarify the warfarin refill request for 2 mg sent on 08/11/25. * Telephone Encounter - Cammy Garcia PharmD - 08/15/2025 2:57 PM EDT Noted. Did call [facility] and spoke to Cecilia Schmidt ([email or web address]) who states that there were two directions sent on the last rx for warfarin. New rx e-prescribed to [facility] with dosing that reflects what patient is taking at this time. documented in this encounterRegional Medical Center10-31-2025 Telephone encounter Note* Telephone Encounter - Fiona Collins - 08/15/2025 2:57 PM EDT Hiren from [facility] P:[phone] option 3 Ref# [id number]. Please call back to clarify the warfarin refill request for 2 mg sent on 08/11/25. [facility]10-31-2025 Telephone encounter Note* Telephone Encounter - Cammy Garcia PharmD - 08/15/2025 2:57 PM EDT Noted. Did call [facility] and spoke to Cecilia Schmidt ([email or web address]) who states that there were two directions sent on the last rx for warfarin. New rx e-prescribed to [facility] [place] with dosing that reflects what patient is taking at this time. [facility] HospitalLight[facility] Solutions [employer] Pilyfo68-51-2076 History of Present illness Narrative* Flora Moon [facility] - 08/11/2025 3:00 PM EDT 15 minute glel-de-ncax follow-up anticoagulation appointment. INR performed in office [...] of therapy reviewed Patient could benefit from [facility] pill packaging and patient is [...] bleeding/bleeding that persists or worsens. Flora Moon [facility] 08/11/25 1500 documented in this encounterRegional Medical Center10-13-2025 History of Present illness Narrative* Flora Moon [facility] - 07/28/2025 3:45 PM EDT 15 minute wkaw-pp-vplq follow-up anticoagulation appointment. INR performed in office [...] of therapy reviewed Patient could benefit from [facility] pill packaging and patient is agreeable [...] bleeding/bleeding that persists or worsens. Flora Moon [facility] 07/28/25 1550 documented in this encounterRegional Medical Center10-07-2025 History of Present illness Narrative* Flora Moon [facility] - 07/22/2025 3:45 PM EDT 15 minute mtnk-ua-ifya follow-up anticoagulation appointment. INR performed in office [...] Moon RPH 07/22/25 1542 documented in this encounterRegional Medical Center09-30-2025 History of Present illness Narrative* Flora Moon RPH - 07/15/2025 3:30 PM EDT 15 minute ygyb-jm-xhdj follow-up anticoagulation appointment. INR performed in office [...] Moon RPH 07/15/25 1526 documented in this encounterRegional Medical Center09-30-2025 History of Present illness Narrative* [...] valve replacement) Mixed hyperlipidemia Postoperative atrial fibrillation ([facility]) Allergies Allergen Reactions Ciprofloxacin Hives Penicillins Trulicity [...] Vas carotid duplex bilateral Result Date: 08/22/[address] [address] Ultrasound Report Signed Patient: DARIN THACKER MR#: [id number] : 1950 Acct:[id number] Age/Sex: 74 / M ADM Date: 08/22/24 Loc: US Attending Dr: Tonya Dye NP Ordering Physician: Tonya Dye NP Date of Service: 08/22/24 Procedure(s): US carotid duplex BI Accession Number(s): [id number] cc: Tonya Dye NP [address] [address] Patient Name: DARIN THACKER MRN: [id number] date: 1950 Sex: M Assigned Patient Location: [place] Current Patient Location: [place] Accession/Order Number: [id number] Exam Date: 08/22/2024 14:05 Report Date: 08/22/2024 17:23 At the request of: TONYA DYE Procedure: US carotid duplex BI DUPLEX ULTRASOUND EXAMINATION OF THE CAROTID ARTERIES. COMPARISON: None. HISTORY / INDICATIONS: Carotid bruit. TECHNIQUE: Bilateral common carotid arteries, extracranial internal and external carotid arteries are evaluated with shaw-scale imaging, color Doppler, and spectral analysis according to a standard protocol. ICA-CCA ratiosare calculated with manufacturer's representative peak- systolic velocities and recorded. Vertebral [...] M.D. Signed By: 08/22/241725 DD/ 22 TD/TT: Paper Handler: CXR: X-ray chest 1 view Result Date: [...] COMPARISON: 06/14/2025 IMPRESSION: * Interval removal of [place]-Jonathan catheter with right IJ vascular sheath. Interval [...] pneumothorax on the supine radiograph. Right IJ [place]-Jonathan catheter tip terminates in proximal right pulmonary [...] prostatic hyperplasia Dental disease Depression Diabetes mellitus ([facility]) Diabetes mellitus type 2, controlled ([facility]) Eczema HL (hearing loss) Hyperlipidemia Hypertension Injury of back Kidney stone Obesity PAD (peripheral artery disease) right foot pain Pneumonia Psoriasis Past Surgical History: Procedure Laterality Date BYPASS ARTERY FEMORAL POPLITEAL WITH VEIN GRAFT RIGHT Right 11/10/2021 Performed by Omid Ricks MD at [facility] Cardiac Invasive N/A 05/01/2025 Performed by Miah Felix MD at [facility] CARDIAC CATH LABS COLONOSCOPY 12/02/2016 Dr. Li COLONOSCOPY 11/17/2006 Dr. Li Coronary angiogram and right heart N/A 05/01/2025 Performed by Miah Felix MD at [facility] CARDIAC CATH LABS CORONARY ARTERY BYPASS GRAFT X 4 /EVH LEFT LEG /NOHEMI/ MILIAN/ SVG X 3/ REPLACE VALVE AORTIC WITH RICHIE-AMIN PERIMOUNT MAGNA EASE 23mm N/A 06/13/2025 Performed by Sydni Foy MD at [facility] HAND SURGERY Right MOUTH BIOPSY 08/10/2022 throat Right Leg Angiogram Right 09/30/2021 Performed by Omid Ricks MD at [facility] CARDIAC CATH LABS ROTATOR CUFF REPAIR Bilateral Dr. Ribeiro 2009; Dr. Vidal 2011 rt leg angio Right 08/24/2022 Performed by Omid Ricks MD at [facility] CARDIAC CATH LABS SKIN BIOPSY 2009 [...] 4. Primary hypertension 5. Postoperative atrial fibrillation ([facility]) - Wireless Telemetry (In Office); Future 1. [...] tartrate/Lopressor Continue warfarin/Coumadin [facility] in 2 months [...] TONYA DYE APRN-OLI Referring Physician: Tonya Dye, RAFITA-COMMUNICATIONS SPECIALIST [address] [place] [address] documented in this encounterProctor HospitalIgneous Systems Mkrkix79-72-5629 Instructions* Patient Instructions* Kamran Rebolledo MD - [...] Kick The Habit? Free Tobacco Cessation Resources [facility] Services [facility] provide all employees with free tobacco cessation services that include: Counseling to understand nicotine addiction Education about medications that can help you successfully quit Assistance with developing a plan to quit Call to set up an individual appointment or find out when group classes will be held: [facility]: [phone] [facility]: [phone] [facility]: [phone] [facility]: [phone] Quit Smoking Action Plan and Resources [facility] offers an eight-week, online smoking cessation plan to all [facility] employees, regardless of whether [place] is your medical insurance provider. Go to www.[employer].org/employeewellness and click the Health Risk Assessment and Resources link to get started. In the Dmlza6Ntqpyh menu, click Action Plans instead of Health Risk Assessment to access the Quit Smoking Action Plan. Additional smoking cessation resources are also available to all [facility] employees on the Uyakx3Yygvwq web page at www.[employer]/quitsmoking. [place] Tobacco Cessation Program If [place] is your medical insurance provider, there are more free resources available to you, including: No copays or deductibles on local tobacco cessation counseling services to help you quit Prescription assistance for tobacco cessation medications to help you quit For details about the tobacco cessation program available to [place] members, go to www.[employer] (Search: Tobacco Cessation Program). [place] Tobacco Quit Line 2-573-MLKM-NOW ( ) is a toll-free, telephonic service that helps [place] residents quit smoking and using tobacco. It is staffed by experts who tailor a quit plan for you and provide you with advice. [place] Tobacco Quit Line 9-399-XDXW-NOW ( ) is a toll-free, telephonic service that helps [place] residents quit smoking and using tobacco. It is staffed by experts who tailor a quit plan for you and provide you with advice. Two weeks of nicotine replacement therapy may be provided at no charge, if needed. Additional Resources These national organizations also offer free information and resources to help you quit tobacco: [place] [employer]--www.cancer.org/healthy/stayawayfromtobacco [place] Heart [employer]--www.heart.org (Search: Quit Smoking) Centers for Disease Control and Prevention--www.cdc.gov/tobacco [place] Lung [employer]--www.lungusa.org documented in this encounterRegional Medical Center09-29-2025 Evaluation note* Diagnosis Onset Date [...] attackacuteOctober 2024 1:33pmS/P aortic valve replacementacuteOct2024 1:33pm [facility] Work Phone: 1(725) 757-120009-29-2025 Miscellaneous Notes* Telephone Encounter - Tonya Myrick CMA - 07/14/2025 11:50 AM EDT Left message for patient to remind them to bring their most current medication list with them to their appointment. documented in this encounterRegional Medical Center09-29-2025 Telephone encounter Note* Telephone Encounter - Tonya Myrick CMA - 07/14/2025 11:50 AM EDT Left message for patient to remind them to bring their most current medication list with them to their appointment. [facility]09-29-2025 Miscellaneous Notes* Telephone Encounter - Carito Romero MA - 07/14/2025 11:03 AM EDT Amanda from [address] (P: [phone]). She states she is returning a call to [facility]. Inside Sales Administrator tried leaving a message, however her mailbox is full. Unsure who called Amanda. * Telephone Encounter - Linda Issa [facility] - 07/14/2025 11:03 AM EDT Noted. Unsure who contacted Amanda. Last INR was checked 07/09 in office and patient plans to come toPO going forward so he was scheduled at [facility]OC on 07/15/25. * Telephone Encounter - January Gallego - 07/14/2025 11:03 AM EDT Amanda called back to confirm if patient went to lab on 07/09. Inside Sales Administrator confirms that patient came in to POC and has another appt scheduled for 07/15. Ok per Amanda. documented in this encounterProctor HospitalHojo.pl09-29-2025 Telephone encounter Note* Telephone Encounter - Carito Romero MA - 07/14/2025 11:03 AM EDT Amanda from [address] (P: [phone]). She states she is returning a call to [facility]. Inside Sales Administrator tried leaving a message, however her mailbox is full. Unsure who called Amanda. [facility]09-29-2025 Telephone encounter Note* Telephone Encounter - Linda Issa RPH - 07/14/2025 11:03 AM EDT Noted. Unsure who contacted Amanda. Last INR was checked 07/09 in office and patient plans to come toPO going forward so he was scheduled at [facility] POC on 07/15/25. [employer] Work Phone: [phone] Telephone encounter Note* Telephone Encounter - January Gallego - 07/14/2025 11:03 AM EDT Amanda called back to confirm if patient went to lab on 07/09. Inside Sales Administrator confirms that patient came in to POC and has another appt scheduled for 07/15. Ok per Amanda. [facility]09-24-2025 History of Present illness Narrative* Ivan Clark, [facility] - 07/09/2025 2:00 PM EDT 30 minute tlen-yp-nqaf new anticoagulation appointment. INR performed in office [...] prescription needed: No Patient could benefit from [facility] pill packaging and patient is agreeable forreferral to be sent: No Assessment: Pt referred by Dr Siu on 06.17.25 d/t CABG x4 as well as AVR using bioprosthetic Magnavalve on 06/13/25, but all INR draws and dosing orders have been via and [facility] telephonic so far. Pt's INR has been consistently low the last 3 weeks on mostly 1mg doses. Pt is in agreement to startcoming to [facility] for POC monitoring and management from here [...] Clark RPH 07/09/25 1430 documented in this encounterRegional Medical Center09-23-2025 Miscellaneous Notes* Telephone Encounter - Carito Romero MA - 07/08/2025 12:36 PM EDT Amanda from [address] She states she was unable to get an INR today. She was not having any luck. Patient plans on going to [facility] lab today or tomorrow to get his INR drawn. Please send an order or return Amanda's call. * Telephone Encounter - Krishna Paris RPH - 07/08/2025 12:36 PM EDT If unable to get INR from and patient already planning on going to [facility] patient canbe scheduled at [facility] clinic for tomorrow. * Telephone Encounter - Carito Romero MA - 07/08/2025 12:36 PM EDT An appointment is scheduled 07/09/25 at [facility] POC. Patient states he is feeling sick, nauseous, and having chest pain today. documented in this encounterProctor HospitalHojo.pl09-23-2025 Telephone encounter Note* Telephone Encounter - Carito Romero MA - 07/08/2025 12:36 PM EDT Amanda from [address] She states she was unable to get an INR today. She was not having any luck. Patient plans on going to [facility] lab today or tomorrow to get his INR drawn. Please send an order or return Amanda's call. [facility] HospitalLinux [facility]09-23-2025 Telephone encounter Note* Telephone Encounter - Krishna Paris RP - 07/08/2025 12:36 PM EDT If unable to get INR from and patient already planning on going to [facility] patient canbe scheduled at POC clinic for tomorrow. [facility] Work Phone: [phone]) 645-248309-23-2025 Telephone encounter Note* Telephone Encounter - Carito Romero MA - 07/08/2025 12:36 PM EDT An appointment is scheduled 07/09/25 at [facility] POC. Patient states he is feeling sick, nauseous, and having chest pain today. [employer]09-22-2025 History of Present illness Narrative* Krishna Paris RPH - 07/07/2025 1:00 PM EDT 15 minute zavf-vq-ndbs new anticoagulation appointment. INR performed in office [...] of therapy reviewed Patient could benefit from [facility] pill packaging and patient is agreeable forreferral to be sent: No Assessment: INR subtherapeutic and stable from last result that was not reported to [facility]. Increase x2 days and recheck on Monday with . Plan: Patient instructed to increase to warfarin 2 mg today and tomorrow, then 1 mg daily. Check INR in 2 day(s). Order faxed to [employer]. Patient verbalizes understanding of anticoagulant dosing instructions and information discussed. Dosing regimen, counseling, and follow-up appointment were provided to the patient. Patient reminded to call with questions or any medication changes. Patient instructed to seek medical attention if anymajor bleeding/bleeding that persists or worsens. Krishna Paris [facility] 07/07/25 1305 * Marielena Walton - 07/07/2025 1:00 PM EDT Marielena Walton administered FLUAD 0.5 ML via intramuscular route in the right deltoid on July 07, 2025. The Lot Number is [id number], [facility] is [id number], Machine Setter Supervisor is [email or web address], and Expiration Dateis 02/17/2026. VIS provided to patient on July 07, 2025. Patient provided consent to any costsassociated with the influenza vaccine and administration. documented in this encounterRegional Medical Center09-22-2025 History of Present illness Narrative* Felipe Lemus APRN-COMMUNICATIONS SPECIALIST - 07/07/2025 11:00 AM EDT Images from the original note were not included. Outpatient Follow-Up Note Date of Visit: 07/07/2025 PCP: TONYA DYE, RAFITA-COMMUNICATIONS SPECIALIST Summary of Admission I had the [...] with surgery. He then presented to the [facility] on 06/13/2025 where he underwent a [...] diabetic medications were resumed at discharge. [facility] will manage Coumadin outpatient. [...] d iarrhea. He continues to follow with [facility] clinic for outpatient Coumadin management and is [...] prostatic hyperplasia Dental disease Depression Diabetes mellitus ([facility]) Diabetes mellitus type 2, controlled ([facility]) Eczema HL (hearing loss) Hyperlipidemia Hypertension Injury [...] for 30 days. 06/17/25 07/21/25 Flora Driscoll, NUTRITION HELPER-COMMUNICATIONS SPECIALIST aspirin 81 mg Take 1 tablet [...] [facility] INR 2.0-3.0. Also, okay to try mklb-ufm-lekebyj Unisom for a brief period of time [...] L Kumar 07/07/[address] [facility]09-22-2025 Instructions* Patient Instructions* PAWEL Kumar - 07/07/2025 11:00 AM EDT 1. Please continue to wear Heart Hugger for a total of 5-6 weeks from the date of surgery 2. Please continue to observe a less than 10 pound lifting restriction for a total of 6 weeks from the date of surgery 3. Please follow up with your medical doctors including your die cutter operator and primary care physician 4. Driving restrictions can be lifted 3 weeks from the date of surgery 5. Please plan to participate in phase 2 cardiac rehabilitation after following up with your die cutter operator 6. Okay to try Unisom for sleep 7. No further follow-up with our office but please do not hesitate to call with any questions or concerns about your recent surgery documented in this encounterRegional Medical Center09-22-2025 History of Present illness Narrative* January Gallego - 07/07/2025 9:41 AM EDT Amanda from [address] called ([phone]) to confirm an INR is needed on 07/09. Inside Sales Administrator notes that INR was drawn on 06/30 [...] Meyer RPH 07/07/25 1150 documented in this encounterRegional Medical Center09-19-2025 History of Present illness Narrative* Dasha José - 07/04/2025 3:37 PM EDT Lvm to change appointment to 11 documented in this encounterRegional Medical Center09-15-2025 Miscellaneous Notes* Telephone Encounter - January Gallego - 06/30/2025 8:29 AM EDT Amanda from [address] called ([phone]) regarding next INR for patient after 06/23. Inside Sales Administrator advised that orders were sent on 06/23 for next draw on 06/27. Per Amanda, please send new orders for INR draw today since they did not receive the ones from 06/23. * Telephone Encounter - Linda Issa RPH - 06/30/2025 8:29 AM EDT Noted. Order refaxed for INR draw 06/30/25. documented in this encounterRegional Medical Center09-15-2025 Telephone encounter Note* Telephone Encounter - January Gallego - 06/30/2025 8:29 AM EDT Amanda from [address] called ([phone]) regarding next INR for patient after 06/23. Inside Sales Administrator advised that orders were sent on 06/23 for next draw on 06/27. Per Amanda, please send new orders for INR draw today since they did not receive the ones from 06/23. [facility]09-15-2025 Telephone encounter Note* Telephone Encounter - Linda Issa RPH - 06/30/2025 8:29 AM EDT Noted. Order refaxed for INR draw 06/30/25. [employer] Work Phone: [phone] History of Present illness Narrative* Krishna Paris [facility] - 06/23/2025 3:59 PM EDT Result received from [address]/PM lab. INR 3.2 (goal range: 2.0-3.0). [...] of therapy reviewed Patient could benefit from [employer] pill packaging and patient is [...] any major bleeding/bleeding that persists or worsens. [phone] Krishna Paris [facility] 06/23/25 1611 documented in this encounterProctor HospitalHojo.pl09-04-2025 History of Present illness Narrative* Jm Curry, [facility] - 06/19/2025 3:37 PM EDT Result [...] Curry RPH 06/19/25 1602 documented in this encounterRegional Medical Center09-02-2025 History of Present illness Narrative* Marielena Sheridan RN - 06/17/2025 1:43 PM EDT Informed Tvh7Bewb that we will follow for home care, INR to [facility] and pt needs BMP 2x a week for 2 weeks documented in this encounterRegional Medical Center09-02-2025 History of Present illness Narrative* Krishna Paris [facility] - 06/17/2025 9:39 AM EDT [facility] received a new referral from Ronnell Siu MD on 06/17/2025. The information below is outlined from the referral: Demographics Darin Thacker 1950 male [facility] clinic location / home health agency: Home health (no agency specified yet); then [facility] Anticoagulation Details Indication: AVR (bioprosthetic) INR Target [...] be discussed in depth during the initial hktj-[id number] visit with a [facility] clinical pharmacist and/or during the initial phone call during home health. Pertinent information: Patient underwent CABG x4 as well as AVR using bioprosthetic Magna valve on 06/13/25. Current discharge plans are likely home health. Will follow for discharge. 4:08 PM - patient discharged with [id number], order faxed for INR with SOC visit. Krishna Paris Tucker 06/17/25 1609 documented in this encounterRegional Medical Center08-18-2025 History of Present illness Narrative* [...] prostatic hyperplasia Dental disease Depression Diabetes mellitus ([facility]) Diabetes mellitus type 2, controlled ([facility]) Eczema HL (hearing loss) Hyperlipidemia Hypertension Injury of back Kidney stone Obesity PAD (peripheral artery disease) right foot pain Pneumonia Psoriasis Past Surgical History: Procedure Laterality Date BYPASS ARTERY FEMORAL POPLITEAL WITH VEIN GRAFT RIGHT Right 11/10/2021 Performed by Omid Ricks MD at [facility] Cardiac Invasive N/A 05/01/2025 Performed by Miah Felix MD at [facility] CARDIAC CATH LABS COLONOSCOPY 12/02/2016 Dr. Li COLONOSCOPY 11/17/2006 Dr. Li Coronary angiogram and right heart N/A 05/01/2025 Performed by Miah Fleix MD at [facility] CARDIAC CATH LABS HAND SURGERY Right MOUTH BIOPSY 08/10/2022 throat Right Leg Angiogram Right 09/30/2021 Performed by Omid Ricks MD at [facility] CARDIAC CATH LABS ROTATOR CUFF REPAIR Bilateral Dr. Ribeiro 2009; Dr. Vidal 2011 rt leg angio Right 08/24/2022 Performed by Omid Ricks MD at [facility] CARDIAC CATH LABS SKIN BIOPSY 2009 [...] Interpersonal Safety: Unknown (12/07/2023) Received from [facility] [place] Safety & Environment Fear of Current or [...] PCP: PAWEL MALDONADO Referring Physician: PAWEL Maldonado [facility] [place] [address] Del Hatfield 06/02/25 1541 documented in this encounterRegional Medical Center08-18-2025 History of Present illness Narrative* [...] prostatic hyperplasia Dental disease Depression Diabetes mellitus ([facility]) Diabetes mellitus type 2, controlled ([facility]) Eczema HL (hearing loss) Hyperlipidemia Hypertension Injury [...] Interpersonal Safety: Unknown (12/07/2023) Received from [facility] [place] Safety & Environment Fear of Current or [...] * No active hospital problems. * Plan [place] Coronary Artery Disease without Angina Pectoris Non [...] for tobacco cessation preoperatively. documented in this encounterRegional Medical Center07-23-2025 History of Present illness Narrative* [...] BEAVER PA 05/07/25 1137 documented in this encounterRegional Medical Center07-22-2025 Miscellaneous Notes* Telephone Encounter - Sarakadie Funes - 05/06/2025 4:15 PM EDT Pt called [facility] stating a few days after his cath his wrist (cath site) hurts. He states that the site actually looks good with no swelling, it is not red nor is it warm/hot to the touch. Informed pt he is fine to take tylenol and ice the site for relief. He v/u and will call office back if having any worsening symptoms. documented in this encounterRegional Medical Center07-22-2025 Telephone encounter Note* Telephone Encounter - Sarakatja Funes - 05/06/2025 4:15 PM EDT Pt called [facility] stating a few days after his cath his wrist (cath site) hurts. He states that the site actually looks good with no swelling, it is not red nor is it warm/hot to the touch. Informed pt he is fine to take tylenol and ice the site for relief. He v/u and will call office back if having any worsening symptoms. [facility]07-10-2025 Miscellaneous Notes* Telephone Encounter [...] 05/01/25 APPT 04/21 [facility] documented in this encounterRegional Medical Center07-10-2025 Telephone encounter Note* Telephone Encounter [...] on: 04/22 SCHEDULED 05/01/25 APPT 04/21 [facility] Telephone encounter Note* Telephone Encounter - Anni Root - 04/22/2025 1:[address] Barroso' office called to let you know that they tried to schedule Darin for an appointment according to your referral. He told them that he is having cardiac issues and is seeing a die cutter operator in [place]. They have closed his referral. When he is ready to see them, he will need another referral. [facility] [id number] Miscellaneous Notes* Telephone Encounter - Anni Root - 04/22/2025 1:[address] Barroso' office called to let you know that they tried to schedule Darin for an appointment according to your referral. He told them that he is having cardiac issues and is seeing a die cutter operator in [place]. They have closed his referral. When he is ready to see them, he will need another referral. documented in this encounterSaint [facility]'s [facility] [id number] Miscellaneous Notes* Telephone Encounter - Gabriella Newton [...] the referral for now. documented in this encounterRegional Medical Center07-08-2025 Telephone encounter Note* Telephone Encounter [...] we will close the referral for now. [facility]07-07-[facility]25 History of Present illness Narrative* Sara Funes - 04/21/2025 2:59 PM EDT Images from the original note were not included. Per PKR pt scheduled next avail TAVR CTA on 05-09 at 1:40 at [facility]. Instructions listed below given to pt at appt. [facility]: Cardiac CT Instructions Procedure: CT Date/Time of Procedure: Friday May 09, 2025 at 1:40p. MUST ARRIVE 30 MINUTES EARLY. Testing Location: [facility] ([place] [address]) Registration Location: Entrance D PRE PROCEDURE REQUIREMENTS [...] please call the [facility] at [phone] documented in this encounterRegional Medical Center07-07-2025 Miscellaneous Notes* Addendum Note - Sara Funes - 04/21/2025 2:59 PM EDTAddended by: SARA FUNES on: 04/21/2025 03:22 PM Modules accepted: Orders documented in this encounterRegional Medical Center07-07-2025 Note* Addendum Note - Sara Funes - 04/21/2025 2:59 PM EDTAddended by: SARA FUNES on: 04/21/2025 03:22 PM Modules accepted: Orders [facility]07-07-2025 History of Present illness Narrative* Sara Funes - 04/21/2025 2:50 PM EDT Images from the original note were not included. Per PKR pt scheduled next avail Cath on 05-01-25 at 10:30am. Instructions listed below given to pt at appt. [facility]: Cardiac Cath Procedure: Cardiac Cath Physician: Elvira Talbert Location: [facility] ([address] [place] [address]) Date/Time of Procedure: April at 10:30a Registration Location: Entrance C, parking lot P3, ARRIVE BY 9:00a (Please be aware that procedure dates/times are subject to change due to unforeseen emergencies) PRE PROCEDURE REQUIREMENTS (All requirements must be completed prior to procedure or may result in cancellation) [x] Pre-Procedure Labs: To be completed at any [facility] outpatient lab between 04/21/25-04/28/25. Orders are already in the computer. NO FASTING REQUIRED. Fasting Instructions: [x] NO FOOD OR DRINK for 6 HOURS PRIOR TO PROCEDURE Medication Instructions: Take all your medications with a small sip of water only. Other Instructions: [x] Must have a hole digger truck driver as you will be unable to drive once discharged Important Information: Notify the [facility] of any illness, infection or COVID symptoms or a COVID positive result immediately at [phone] Please notify the [facility] if [...] please call the [facility] at [phone] documented in this encounterRegional Medical Center07-07-2025 History of Present illness Narrative* P Cristopher Kramer MD - 04/21/2025 2:00 PM EDT Images from the original note were not included. [facility] Darin Thacker Date of visit: 04/21/2025 Date of : 1950 Age: 75 y.o. Chief Complaint Patient presents with New Patient MANAGER WOUND CARE REFERRED BY DINO FOR -TTE 04/14/25-APPT SCHED W PT Cardiac Valve Problem Dental Inquiry Dental: February 2025. [facility] in [facility]. Full upper dentures, missing several [...] prostatic hyperplasia Dental disease Depression Diabetes mellitus ([facility]) Diabetes mellitus type 2, controlled ([facility]) Eczema HL (hearing loss) Hyperlipidemia Hypertension Injury of back Kidney stone Obesity PAD (peripheral artery disease) right foot pain Pneumonia Psoriasis Past Surgical History: Procedure Laterality Date BYPASS ARTERY FEMORAL POPLITEAL WITH VEIN GRAFT RIGHT Right 11/10/2021 Performed by Omid Ricks MD at [facility] COLONOSCOPY 12/02/2016 Dr. Li COLONOSCOPY 11/17/2006 Dr. Li HAND SURGERY Right MOUTH BIOPSY 08/10/2022 throat Right Leg Angiogram Right 09/30/2021 Performed by Omid Ricks MD at [facility] CARDIAC CATH LABS ROTATOR CUFF REPAIR Bilateral Dr. Ribeiro 2009; Dr. Vidal 2011 rt leg angio Right 08/24/2022 Performed by Omid Ricks MD at [facility] CARDIAC CATH LABS SKIN BIOPSY 2009 [...] Interpersonal Safety: Unknown (12/07/2023) Received from [facility] [place] Safety & Environment Fear of Current or [...] No follow-ups on file. PCP: TONYA DYE, NUTRITION HELPER-COMMUNICATIONS SPECIALIST Referring Physician: Vanessa Persaud PA-C [address] [place] [address] documented in this encounterRegional Medical Center07-07-2025 Miscellaneous Notes* Addendum Note - Fiorella Garzon CNA - 04/21/2025 2:00 PM EDTAddended by: FIORELLA GARZON on: 04/21/2025 03:07 PM Modules accepted: Orders documented in this encounterRegional Medical Center07-07-2025 Note* Addendum Note - Fiorella Garzon CNA - 04/21/2025 2:00 PM EDTAddended by: FIORELLA GARZON on: 04/21/2025 03:07 PM Modules accepted: Orders [facility]07-02-2025 History of Present illness Narrative* Mellisa Gomez - 04/16/2025 2:17 PM EDT [facility] TR[facility]ER documented in this encounterRegional Medical Center07-02-2025 Telephone encounter Note* Telephone Encounter - Tonya Dye NP - 04/16/2025 8:11 AM EDT Contact pt, call him, he will need a EGD scope to look at that stomach ulcer, is he willing to see Dr chio gold at [facility]? [place] [facility] [id number] Miscellaneous Notes* Telephone Encounter - Tonya Dye NP - 04/16/2025 8:11 AM EDT Contact pt, call him, he will need a EGD scope to look at that stomach ulcer, is he willing to see Dr chio gold at [facility]? [place] documented in this encounterSaint John's [facility] [id number] History of Present illness Narrative* Tonya Dye [...] rate, automated Amylase Lipase documented in this encounterSaint John's [facility] [id number] Instructions* Patient Instructions* Tonya Dye NP - 04/08/2025 1:00 PM EDT Get labs done Soft diet, bland foods, if worsening pain go to the ER We will order US of gallbladder, [facility], they will call you about scheduling this documented in this encounterSaint John's [facility] [id number] History of Present illness Narrative* Tonya Dye [...] last year: yes Specialist: vascular, eye doctor, die cutter operator HCPOA/Living Will: no Concerns: none Hypertension This [...] being taken. He does not see a home help aide.Eye exam is current. SUBJECTIVE: MEDICATIONS: Current Outpatient [...] of the risks of continued smoking: stroke, WA, all forms of cancer, lung disease, and [...] of the risks of continued smoking: stroke, [place], all forms of cancer, lung disease, and [...] shoes, freq foot checks documented in this [facility]06-12-2025 Instructions* Patient Instructions* Tonya Dye NP - 03/27/2025 2:00 PM EDT No dose changes to meds Keep up good work on avoiding Little Debbies For sleep: add trazodone 50mg pill, take about an hour before bed After a few weeks let me know if the dose is working or not If confusion, depression occur call me documented in this [facility]06-02-2025 Miscellaneous Notes* Telephone Encounter - Marie Zambrano CMA - 03/17/2025 3:44 PM EDT Spoke to patient per Jessica , bypass is open , left is moderate will continue to watch . Lynn look good documented in this encounterRegional Medical Center06-02-2025 Telephone encounter Note* Telephone Encounter - Marie Zambrano CMA - 03/17/2025 3:44 PM EDT Spoke to patient per Jessica , bypass is open , left is moderate will continue to watch . Lynn look good [facility]05-14-2025 Miscellaneous Notes* Telephone Encounter - Erika Palacios LPN - 02/26/2025 2:40 PM EDT Inside Sales Administrator called pt and left a vmm regarding patients carotid ultrasound results that show very minimal carotid stenosis. Patient may wait until his already scheduled appt to return next year. documented in this encounterRegional Medical Center05-14-2025 Telephone encounter Note* Telephone Encounter - Erika Palacios LPN - 02/26/2025 2:40 PM EDT Inside Sales Administrator called pt and left a vmm regarding patients carotid ultrasound results that show very minimal carotid stenosis. Patient may wait until his already scheduled appt to return next year. [facility]05-08-2025 History of Present illness Narrative* Jessica Méndez, NUTRITION HELPER-COMMUNICATIONS SPECIALIST - 02/20/2025 3:00 PM EDT Images from the original note were not included. [facility] [address] [id number] Subjective: Patient ID: Darin Thacker is a [...] to below-knee popliteal artery bypass with vein [id number]. Recent arterial duplex imaging reviewed. Bypass shows [...] Reyes APRN-CNP 02/20/25 1510 documented in this encounterRegional Medical Center04-03-2025 Miscellaneous Notes* Telephone Encounter - Ambrocio Knott - 01/16/2025 3:24 PM EDT Called patient to inform patient or appt change with dr howell on 02/20 [place] [facility]; M to call the office if this didn't work for him; please assist if needed documented in this encounterRegional Medical Center04-03-2025 Telephone encounter Note* Telephone Encounter - Ambrocio Knott - 01/16/2025 3:24 PM EDT Called patient to inform patient or appt change with dr howell on 02/20 in [place] to jessica karin CNPto [place] location but at 300 instead; LVM to call the office if this didn't work for him; please assist if needed [facility]04-03-2025 Miscellaneous Notes* Telephone Encounter - Ambrocio Knott - 01/16/2025 2:50 PM EDT Called patient to inform patient of appt change; patient is now seeing jessica karin same day but at the [place] location at 3pm; LVM with information and if need to rescheduled to give us a call; please assist if neccessary documented in this encounterRegional Medical Center04-03-2025 Telephone encounter Note* Telephone Encounter - Ambrocio Knott - 01/16/2025 2:50 PM EDT Called patient to inform patient of appt change; patient is now seeing jessica méndez same day but at the [place] location at 3pm; LVM with information and if need to rescheduled to give us a call; please assist if neccessary [facility]03-31-2025 History of Present illness [...] prostatic hyperplasia Dental disease Depression Diabetes mellitus ([facility]) Diabetes mellitus type 2, controlled ([facility]) Eczema HL (hearing loss) Hyperlipidemia Hypertension Injury of back Kidney stone Obesity PAD (peripheral artery disease) ([facility]) right foot pain Pneumonia Psoriasis No data recorded No data recorded No data recorded Past Surgical History: Procedure Laterality Date BYPASS ARTERY FEMORAL POPLITEAL WITH VEIN GRAFT RIGHT Right 11/10/2021 Performed by Omid Ricks MD at [facility] COLONOSCOPY 12/02/2016 Dr. Li COLONOSCOPY 11/17/2006 Dr. Li HAND SURGERY Right MOUTH BIOPSY 08/10/2022 throat Right Leg Angiogram Right 09/30/2021 Performed by Omid Ricks MD at [facility] CARDIAC CATH LABS ROTATOR CUFF REPAIR Bilateral Dr. Ribeiro 2009; Dr. Vidal 2011 rt leg angio Right 08/24/2022 Performed by Omid Ricks MD at [facility] CARDIAC CATH LABS SKIN BIOPSY 2009 [...] Interpersonal Safety: Unknown (12/07/2023) Received from [facility] [place] Safety & Environment Fear of Current or Ex-Partner: Not on file Emotionally Abused: Not on file Physically Abused: Not on file Sexually Abused: Not on file Physically or Sexually Abused: Not on file Housing Instability: Not on file Review of Systems Review of Systems Constitutional: Negative for malaise/fatigue. HENT: Positive for hearing loss ([place]). Negative for nosebleeds. Respiratory: Negative for cough, [...] Physician: PAWEL Maldonado [address] [place] [address] Vanessa Persaud PA-C 01/13/25 0947 documented in this encounterRegional Medical Center03-31-2025 Instructions* Patient Instructions* Vanessa Persaud PA-C - 01/13/2025 9:00 AM EDT Are You Ready To Kick The Habit? Free Tobacco Cessation Resources [facility] Services [facility] Centers provide all employees with free tobacco cessation services that include: Counseling to understand nicotine addiction Education about medications that can help you successfully quit Assistance with developing a plan to quit Call to set up an individual appointment or find out when group classes will be held: [facility]: [phone] [facility]: [phone] [facility]: [phone] [facility]: [phone] Quit Smoking Action Plan and Resources [facility] offers an eight-week, online smoking cessation plan to all [facility] employees, regardless of whether [place] is your medical insurance provider. Go to www.[employer].org/employeewellness and click the Health Risk Assessment and Resources link to get started. In the Kthlz1Cbhuxh menu, click Action Plans instead of Health Risk Assessment to access the Quit Smoking Action Plan. Additional smoking cessation resources are also available to all [facility] employees on the Zkjuv7Lppxwr web page at www.[employer]/quitsmoking. [place] Tobacco Cessation Program If [place] is your medical insurance provider, there are more free resources available to you, including: No copays or deductibles on local tobacco cessation counseling services to help you quit Prescription assistance for tobacco cessation medications to help you quit For details about the tobacco cessation program available to [place] members, go to www.[employer]out.[employer] (Search: Tobacco Cessation Program). [place] Tobacco Quit Line 2-765-MJYW-NOW ( ) is a toll-free, telephonic service that helps [place] residents quit smoking and using tobacco. It is staffed by experts who tailor a quit plan for you and provide you with advice. [place] Tobacco Quit Line 8-693-OORE-NOW ( ) is a toll-free, telephonic service that helps [place] residents quit smoking and using tobacco. It is staffed by experts who tailor a quit plan for you and provide you with advice. Two weeks of nicotine replacement therapy may be provided at no charge, if needed. Additional Resources These national organizations also offer free information and resources to help you quit tobacco: [place] [employer]--www.cancer.org/healthy/stayawayfromtobacco [place] Heart [employer]--www.heart.org (Search: Quit Smoking) Centers for Disease Control and Prevention--www.cdc.gov/tobacco [place] Lung [employer]--www.lungusa.org Echocardiogram in 3-4 months documented in this encounterRegional Medical Center03-28-2025 Miscellaneous Notes* Telephone Encounter - Tali Naidu - 01/10/2025 8:58 AM EDT Called pt to confirm appt Monday KM and to bring current list of meds, photo id, and insurance card. Pt confirmed documented in this encounterUniversity Hospitals Samaritan Medical CenterKeraFAST [id number] Telephone encounter Note* Telephone Encounter - Tali Naidu - 01/10/2025 8:58 AM EDT Called pt to confirm appt Monday KM and to bring current list of meds, photo id, and insurance card. [facility] confirmed [facility]-05-[facility]25 History of Present illness Narrative* MARCELLO CHOWDARY [...] being taken. He does not see a home help aide.Eye exam is current. Hypertension This is a [...] right Psoriasis (CMS/HCC) PVD (peripheral vascular disease) ([facility]) Retinopathy, diabetic, bilateral (CMS/HCC) Ringing in ears, right Seasonal allergies Sebaceous cyst Tobacco user Uncontrolled type 2 diabetes mellitus with hyperglycemia ([facility]) Vitamin B12 deficiency Past Surgical History: Procedure [...] List Items Addressed This Visit HTN (hypertension) ([facility]) - Primary Current meds: amlodipine and b shima Hyperlipidemia ([facility]) On statin therapy Recommend yearly lab checks and prn dose changes PAD (peripheral artery disease) ([facility]) (Chronic) Continues with vascular doctor Current meds: plavix, statin Recommend good BP and DM control Tobacco user The patient has been advised of the risks of continued smoking: stroke, WA, all forms of cancer, lung disease, and [...] of the risks of continued smoking: stroke, [place], all forms of cancer, lung disease, and . Options for quitting smoking include: cold turkey, hypnosis, acupuncture, nicotine replacement meds(gum, lozenges, and patches), Buproprion, and Varenicline. At this time pt is encouraged to evaluate their goals for wanting to quit smoking, and reach out toprovider when ready to start this process * Tonya Dye NP - 11/20/2024 6:59 AM ESTAssociated Problem(s): Hyperlipidemia ([facility]) On statin therapy Recommend yearly lab checks and prn dose changes * Tonya Dye NP - 11/20/2024 6:58 AM ESTAssociated Problem(s): Iron deficiency anemia Check labs * Tonya Dye NP - 11/20/2024 6:57 AM ESTAssociated Problem(s): Type 2 diabetes mellitus, without long-term current use of insulin ([facility]) Check blood sugars daily, notify if <70 [...] disorder, without long-term current use of insulin ([facility]) Check blood sugars daily, notify if <70 [...] AM ESTAssociated Problem(s): PAD (peripheral artery disease) ([facility]) Continues with vascular doctor Current meds: plavix, statin Recommend good BP and DM control * Tonya Dye NP - 11/20/2024 6:54 AM ESTAssociated Problem(s): HTN (hypertension) ([facility]) Please check blood pressure daily and record [...] tight blood sugar control documented in this encounterSaint John's Aurora Community [id number] Instructions* Patient Instructions* Tonya Dye NP - 11/20/2024 2:00 PM EST Cut back on your Little Debbies, and more exercise please I would like you to take your farxiga with supper every night, no matter if your blood sugar is less than 120 documented in this [facility]11-05-2024 History of Present illness Narrative* Tonya [...] not beingtaken. He does not see a home help aide.Eye exam is current. SUBJECTIVE: MEDICATIONS: Current Outpatient [...] right Psoriasis (CMS/HCC) PVD (peripheral vascular disease) ([facility]/HCC) Retinopathy, diabetic, bilateral (CMS/HCC) Ringing in ears, right Seasonal allergies Sebaceous cyst Tobacco user Uncontrolled type 2 diabetes mellitus with hyperglycemia ([facility]/HCC) Vitamin B12 deficiency Past Surgical History: Procedure [...] of the risks of continued smoking: stroke, [place], all forms of cancer, lung disease, and . Options for quitting smoking include: cold turkey, hypnosis, acupuncture, nicotine replacement meds(gum, lozenges, and patches), Buproprion, and Varenicline. At this time pt is encouraged to evaluate their goals for wanting to quit smoking, and reach out toprovider when ready to start this process Diabetic polyneuropathy associated with type 2 diabetes mellitus ([facility]) Continue with gabapentin Tight glucose control Diverticulitis Currently no symptoms Overweight (BMI 25.0-29.9) Type 2 diabetes mellitus, without long-term current use of insulin ([facility]) - Primary Check blood sugars daily, notify [...] of the risks of continued smoking: stroke, [place], all forms of cancer, lung disease, and [...] mellitus, without long-term current use of insulin ([facility]) Check blood sugars daily, notify if <70 [...] polyneuropathy associated with type 2 diabetes mellitus ([facility]) Continue with gabapentin Tight glucose control * Tonya Dye NP - 08/20/2024 6:55 AM ESTAssociated Problem(s): PAD (peripheral artery disease) ([facility]) Cont plavix, and statin * Tonya Dye NP - 08/20/2024 6:55 AM ESTAssociated Problem(s): HTN (hypertension) ([facility]) Please check blood pressure daily and record DASH diet Limit caffeine Take medication as directed Contact office if chest pain, pressure, dizziness, shortness of breath, swelling legs Recommend slow position changes documented in this encounterSaint John's Aurora Community [id number] Instructions* Patient Instructions* Tonya Dye NP - 08/20/2024 2:20 PM EST [facility] should call about [employer] Sound of carotid arteries, if no call in 10 days, call this office documented in this encounterSaint John's Aurora Community [id number] History of Present illness Narrative* Tonya Dye NP - 07/22/2024 3:03 PM EDTAssociated Problem(s): Acute gastritis without hemorrhage Symptoms improved with use of PPI, as well as carafate Will have him restart the pantoprazole Fu in 4 weeks * MARCELLO CHOWDARY - 07/22/2024 1:40 PM EDT Average fast bs is 140-160s [place] presriptions[facility], but realized that [facility] where the [facility]m supply * Tonya Dye NP - 07/22/2024 1:40 PM EDT Images from the original note were not included. Darin Thacker is a 74 y.o. male presents with chief complaint of No chief complaint on file. HPI: [facility] 07/03/24 abd pain Hx diverticulitis, 03/08 Upper abd, achy, burning pain. 04/24. + nausea, no vomiting no fever, +diarrhea, no urinary symptomsno bloody stool or urine No radiation. Went to [facility], had labs and CT scan, sent [...] Bradycardia DDD (degenerative disc disease), cervical Diabetes ([facility]/HCC) Diabetic polyneuropathy associated with type 2 diabetes mellitus ([facility]/HCC) Foraminal stenosis of cervical region Frequent PVCs Hearing loss Heart murmur HTN (hypertension) (CMS/HCC) Hyperlipidemia (CMS/HCC) Incisional infection Lumbar radiculopathy 10/31/2023 Mass of both adrenal glands ([facility]/HCC) Neck pain Olecranon bursitis of left elbow Olecranon bursitis of right elbow PAD (peripheral artery disease) (CMS/HCC) Peripheral neuropathy Popliteal cyst, right Psoriasis ([facility]/HCC) PVD (peripheral vascular disease) ([facility]) Retinopathy, diabetic, bilateral ([facility]/HCC) Ringing in ears, right Seasonal allergies Sebaceous cyst Tobacco user Uncontrolled type 2 diabetes mellitus with hyperglycemia ([facility]) Vitamin B12 deficiency Past Surgical History: Procedure [...] (Actos) 30 MG tablet documented in this encounterSaint John's Aurora Community [id number] History of Present illness Narrative* Tonya Dye NP - 06/04/2024 2:11 PM EDTAssociated Problem(s): Tobacco user The patient has been advised of the risks of continued smoking: stroke, [place], all forms of cancer, lung disease, and [...] disorder, without long-term current use of insulin ([facility]) No changes in meds or doses Check labs Fu in 3 months * Tonya Dye NP - 06/04/2024 2:10 PM EDTAssociated Problem(s): PAD (peripheral artery disease) ([facility]) Cont plavix, and statin * Tonya Dye NP - 06/04/2024 2:10 PM EDTAssociated Problem(s): HTN (hypertension) ([facility]) No changes in med dose * Tonya Dye NP - 06/04/2024 2:10 PM EDTAssociated Problem(s): Heart murmur Reveiwed NOHEMI * Tonya Dye NP - 06/04/2024 2:10 PM EDTAssociated Problem(s): Diabetic polyneuropathy associated with type 2 diabetes mellitus ([facility]) Cont w memo * Tonya Dye NP [...] Bradycardia DDD (degenerative disc disease), cervical Diabetes ([facility]) Diabetic polyneuropathy associated with type 2 diabetes mellitus ([facility]) Foraminal stenosis of cervical region Frequent PVCs Hearing loss Heart murmur HTN (hypertension) ([facility]) Hyperlipidemia ([facility]) Incisional infection Lumbar radiculopathy 10/31/2023 Mass of both adrenal glands ([facility]) Neck pain Olecranon bursitis of left elbow Olecranon bursitis of right elbow PAD (peripheral artery disease) ([facility]) Peripheral neuropathy Popliteal cyst, right Psoriasis ([facility]) PVD (peripheral vascular disease) ([facility]) Retinopathy, diabetic, bilateral ([facility]) Ringing in ears, right Seasonal allergies Sebaceous cyst Tobacco user Uncontrolled type 2 diabetes mellitus with hyperglycemia ([facility]) Vitamin B12 deficiency Past Surgical History: Procedure [...] of the risks of continued smoking: stroke, [place], all forms of cancer, lung disease, and [...] (Actos) 30 MG tablet documented in this encounterSaint John's Aurora Community [id number] History of Present illness Narrative* Shen Law [...] prostatic hyperplasia Dental disease Depression Diabetes mellitus ([facility]) Diabetes mellitus type 2, controlled ([facility]) Eczema HL (hearing loss) Hyperlipidemia Hypertension Injury of back Kidney stone Obesity PAD (peripheral artery disease) ([facility]) right foot pain Pneumonia Psoriasis No data recorded No data recorded No data recorded Past Surgical History: Procedure Laterality Date BYPASS ARTERY FEMORAL POPLITEAL WITH VEIN GRAFT RIGHT Right 11/10/2021 Performed by Omid Ricks MD at [facility] COLON[facility]COPY 12/02/2016 Dr. Li COLONOSCOPY 11/17/2006 Dr. Li HAND SURGERY Right MOUTH BIOPSY 08/10/2022 throat Right Leg Angiogram Right 09/30/2021 Performed by Omid Ricks MD at [facility] CARD[facility] CATH LABS ROTATOR CUFF REPAIR Bilateral Dr. Ribeiro 2009; Dr. Vidal 2011 rt leg angio Right 08/24/2022 Performed by Omid Ricks MD at [facility]ATH LABS SKIN BIOPSY 2009 [...] Interpersonal Safety: Unknown (12/07/2023) Received from [facility] [place] Safety & Environment Fear of Current or [...] PCP: PAWEL MALDONADO Referring Physician: PAWEL Maldonado [address] [place] [address] documented in this encounterProctor HospitalIgneous Systems [id number] Instructions* Patient Instructions* Dasha Logan CMA - 05/10/2024 12:30 PM EDT Are You Ready To Kick The Habit? Free Tobacco Cessation Resources [facility] Services [facility] Centers provide all employees with free tobacco cessation services that include: Counseling to understand nicotine addiction Education about medications that can help you successfully quit Assistance with developing a plan to quit Call to set up an individual appointment or find out when group classes will be held: [facility]: [phone] [facility]: [phone] [facility]: [phone] [facility]: [phone] Quit Smoking Action Plan and Resources [facility] offers an eight-week, online smoking cessation plan to all [facility] employees, regardless of whether [place] is your medical insurance provider. Go to [email or web address] and click the Health Risk Assessment and Resources link to get started. In the Colibri IO menu, click Action Plans instead of Health Risk Assessment to access the Quit Smoking Action Plan. Additional smoking cessation resources are also available to all [facility] employees on the Oagzq8Yszicc web page at [email or web address]. [place] Tobacco Cessation Program If [place] is your medical insurance provider, there are more free resources available to you, including: No copays or deductibles on local tobacco cessation counseling services to help you quit Prescription assistance for tobacco cessation medications to help you quit For details about the tobacco cessation program available to [place] members, go to www.CyberDefender (Search: Tobacco Cessation Program). [place] Tobacco Quit Line 5-702-JGWX-NOW ( ) is a toll-free, telephonic service that helps [place] residents quit smoking and using tobacco. It is staffed by experts who tailor a quit plan for you and provide you with advice. [place] Tobacco Quit Line 8-528-WXZT-NOW ( ) is a toll-free, telephonic service that helps [place] residents quit smoking and using tobacco. It is staffed by experts who tailor a quit plan for you and provide you with advice. Two weeks of nicotine replacement therapy may be provided at no charge, if needed. Additional Resources These national organizations also offer free information and resources to help you quit tobacco: [place] Cancer Society--www.cancer.org/healthy/stayawayfromtobacco [place] Heart Association--www.heart.org (Search: Quit Smoking) Centers for Disease Control and Prevention--www.cdc.gov/tobacco [place] Lung Association--www.lungusa.org documented in this encounterRegional Medical Center07-25-2024 Miscellaneous Notes* Telephone Encounter - Dasha Logan CMA - 05/09/2024 3:13 PM EDT Left message for patient to remind them to bring their most current medication list with them to their appointment. documented in this encounterRegional Medical Center07-25-2024 Telephone encounter Note* Telephone Encounter - Dasha Logan CMA - 05/09/2024 3:13 PM EDT Left message for patient to remind them to bring their most current medication list with them to their appointment. [facility] Miscellaneous Notes* Telephone Encounter - Ashely Cardoso - 04/15/2024 1:13 PM EDT Patient need a Refilled on his PLAVIX and this should be sent to [facility] they only sent him a 1 month supply and he need a 3 month supply he I almost out please contact patient when this is sent. Please advise * Telephone Encounter - Erika Palacios LPN - 04/15/2024 1:13 PM EDT Medication sent to pharmacy documented in this encounterRegional Medical Center07-01-2024 Telephone encounter Note* Telephone Encounter - Ashely Cardoso - 04/15/2024 1:13 PM EDT Patient need a Refilled on his PLAVIX and this should be sent to [facility] they only sent him a 1 month supply and he need a 3 month supply he I almost out please contact patient when this is sent. Please advise [facility] Telephone encounter Note* Telephone Encounter - Erika Palacios LPN - 04/15/2024 1:13 PM EDT Medication sent to pharmacy [facility] Miscellaneous Notes* Telephone Encounter - Wolfgang Monzon RN - 03/29/2024 3:01 PM EDT Received order from Carolyne at [facility] office. Patient scheduled for NOHEMI on 04/29/24 at 11 at TTH with MMM. Notified Carolyne. documented in this encounterRegional Medical Center06-14-2024 Telephone encounter Note* Telephone Encounter - Wolfgang Monzon RN - 03/29/2024 3:01 PM EDT Received order from Carolyne at [facility] office. Patient scheduled for NOHEMI on 04/29/24 at 11 at TTH with MMM. Notified Carolyne. [facility] History of Present illness [...] prostatic hyperplasia Dental disease Depression Diabetes mellitus ([facility]) Diabetes mellitus type 2, controlled ([facility]) Eczema HL (hearing loss) Hyperlipidemia Hypertension Injury of back Kidney stone Obesity PAD (peripheral artery disease) ([facility]) right foot pain Pneumonia Psoriasis No data recorded No data recorded No data recorded Past Surgical History: Procedure Laterality Date BYPASS ARTERY FEMORAL POPLITEAL WITH VEIN GRAFT RIGHT Right 11/10/2021 Performed by Omid Ricks MD at [facility] COLONOSCOPY 12/02/2016 Dr. Li COLONOSCOPY 11/17/2006 Dr. Li HAND SURGERY Right MOUTH BIOPSY 08/10/2022 throat Right Leg Angiogram Right 09/30/2021 Performed by Omid Ricks MD at [facility] CARD[facility] CATH LABS ROTATOR CUFF REPAIR Bilateral Dr. Ribeiro 2009; Dr. Vidal 2011 rt leg angio Right 08/24/2022 Performed by Omid Ricks MD at [facility]ATH [facility]S SKIN BIOPSY 2009 [...] Interpersonal Safety: Unknown (12/07/2023) Received from [facility] Safety & Environment Fear of Current [...] Primary hypertension 3. 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 Free Tobacco Cessation Resources [facility] Services [facility] Tobacco Treatment Centers provide all employees with free tobacco cessation services that include: Counseling to understand nicotine addiction Education about medications that can help you successfully quit Assistance with developing a plan to quit Call to set up an individual appointment or find out when group classes will be held: [facility]: [phone] [facility]: [phone] [facility]: [phone] [facility]: [phone] Quit Smoking Action Plan and Resources [facility] offers an eight-week, online smoking cessation plan to all [facility] employees, regardless of whether [place] is your medical insurance provider. Go to www.[employer] [email or web address]/employeewellness and click the Health Risk Assessment and Resources link to get started. In the Lclev6Twmxac menu, click Action Plans instead of Health Risk Assessment to access the Quit Smoking Action Plan. Additional smoking cessation resources are also available to all [facility] employees on the Qclab5Eqqjia web page at www.Fanshout.[email or web address]. [place] Tobacco Cessation Program If [place] is your medical insurance provider, there are more free resources available to you, including: No copays or deductibles on local tobacco cessation counseling services to help you quit Prescription assistance for tobacco cessation medications to help you quit For details about the tobacco cessation program available to [place] members, go to www.Fanshout.[employer] (Search: Tobacco Cessation Program). [place] Tobacco Quit Line 5-812-JJIY-NOW ( ) is a toll-free, telephonic service that helps [place] residents quit smoking and using tobacco. It is staffed by experts who tailor a quit plan for you and provide you with advice. [place] Tobacco Quit Line 3-062-RXCF-NOW ( ) is a toll-free, telephonic service that helps [place] residents quit smoking and using tobacco. It is staffed by experts who tailor a quit plan for you and provide you with advice. Two weeks of nicotine replacement therapy may be provided at no charge, if needed. Additional Resources These national organizations also offer free information and resources to help you quit tobacco: [place] Cancer Society--www.cancer.org/healthy/stayawayfromtobacco [place] Heart Association--www.heart.org (Search: Quit Smoking) Centers for Disease Control and Prevention--www.cdc.gov/tobacco [place] Lung Association--www.lungusa.org documented in this encounterRegional Medical Center06-13-2024 Miscellaneous Notes* Telephone Encounter - Dasha Logan CMA - 03/28/2024 11:18 AM EDT Called patient to remind them to bring their most current copy of their medication list with them to their appt. Patient verbalizes understanding. documented in this encounterUniversity Hospitals Samaritan Medical CenterSeek & Adore [facility] [id number] Telephone encounter Note* Telephone Encounter - Dasha Logan CMA - 03/28/2024 11:18 AM EDT Called patient to remind them to bring their most current copy of their medication list with them to their appt. Patient verbalizes understanding. [facility]04-[facility] Evaluation + Plan note* Assessment & Plan Note - Yaneli Howell MD - 02/08/2024 10:17 AM EDTAssociated Problem(s): Claudication ([facility]-HCC) Arterial Duplex US RLE PVR Continue Plavix and statin. Smoking cessation. [facility]04-25-2024 Miscellaneous Notes* Assessment & Plan Note - Yaneli Howell MD - 02/08/2024 10:17 AM EDTAssociated Problem(s): Claudication ([facility]) Arterial Duplex US RLE PVR Continue Plavix and statin. Smoking cessation. * Addendum Note - Yaneli Howell MD - 02/08/2024 10:00 AM EDTAddended by: YANELI HOWELL on: 02/08/2024 11:45 AM Modules accepted: Orders documented in this encounterRegional Medical Center04-25-2024 History of Present illness Narrative* Yaneli Howell MD - 02/08/2024 10:00 AM EDT Images from the original note were not included. To: TONYA DYE, RAFITA-COMMUNICATIONS SPECIALIST HPI: Darin Thacker is a 73 [...] prostatic hyperplasia Dental disease Depression Diabetes mellitus ([facility]) Diabetes mellitus type 2, controlled ([facility]) Eczema HL (hearing loss) Hyperlipidemia Hypertension Injury of back Kidney stone Obesity PAD (peripheral artery disease) ([facility]) right foot pain Pneumonia Psoriasis Past Surgical History: Past Surgical History: Procedure Laterality Date BYPASS ARTERY FEMORAL POPLITEAL WITH VEIN GRAFT RIGHT Right 11/10/2021 Performed by Omid Ricks MD at [facility] COLONOS[facility] 12/02/2016 Dr. Li COLONOSCOPY 11/17/2006 Dr. Li HAND SURGERY Right MOUTH BIOPSY 08/10/2022 throat Right Leg Angiogram Right 09/30/2021 Performed by Omid Ricks MD at [facility] C[facility] CATH LABS ROTATOR CUFF REPAIR Bilateral Dr. Ribeiro 2009; Dr. Vidal 2011 rt leg angio Right 08/24/2022 Performed by Omid Ricks MD at [facility]ATH [facility]S SKIN BIOPSY 2009 [...] Interpersonal Safety: Unknown (12/07/2023) Received from [facility] [place] Safety & Environment Fear of Current or [...] PVR Assessment and Plan: Problem List Claudication ([facility]) - Primary Overview Added automatically from request for surgery [id number] Current Assessment & Plan Arterial Duplex US [...] you for your understanding. documented in this encounterRegional Medical Center04-25-2024 Instructions* Patient Instructions* Yaneli Howell MD - 02/08/2024 10:00 AM EDT Are You Ready To Kick The Habit? Free Tobacco Cessation Resources [facility] Services [facility] Tobacco Treatment Centers provide all employees with free tobacco cessation services that include: Counseling to understand nicotine addiction Education about medications that can help you successfully quit Assistance with developing a plan to quit Call to set up an individual appointment or find out when group classes will be held: [facility]: [phone] [facility]: [phone] [facility]: [phone] [facility]: [phone] Quit Smoking Action Plan and Resources [facility] offers an eight-week, online smoking cessation plan to all [facility] employees, regardless of whether [place] is your medical insurance provider. Go to www.Patent [email or web address]/employeewellness and click the Health Risk Assessment and Resources link to get started. In the Colibri IO menu, click Action Plans instead of Health Risk Assessment to access the Quit Smoking Action Plan. Additional smoking cessation resources are also available to all [facility] employees on the Dvmkq5Rgthcl web page at www.CyberDefender/quitsmoking. [place] Tobacco Cessation Program If [place] is your medical insurance provider, there are more free resources available to you, including: No copays or deductibles on local tobacco cessation counseling services to help you quit Prescription assistance for tobacco cessation medications to help you quit For details about the tobacco cessation program available to [place] members, go to www.Fanshout.[employer] (Search: Tobacco Cessation Program). [place] Tobacco Quit Line 4-462-LGVC-NOW ( ) is a toll-free, telephonic service that helps [place] residents quit smoking and using tobacco. It is staffed by experts who tailor a quit plan for you and provide you with advice. [place] Tobacco Quit Line 1-740-SPJU-NOW ( ) is a toll-free, telephonic service that helps [place] residents quit smoking and using tobacco. It is staffed by experts who tailor a quit plan for you and provide you with advice. Two weeks of nicotine replacement therapy may be provided at no charge, if needed. Additional Resources These national organizations also offer free information and resources to help you quit tobacco: [place] Cancer Society--www.cancer.org/healthy/stayawayfromtobacco [place] Heart Association--www.heart.org (Search: Quit Smoking) Centers for Disease Control and Prevention--www.cdc.gov/tobacco [place] Lung Association--www.lungusa.org documented in this encounterProctor HospitalHojo.pl04-25-2024 Note* Addendum Note - Yaneli Howell MD - 02/08/2024 10:00 AM EDTAddended by: YANELI HOWELL on: 02/08/2024 11:45 AM Modules accepted: Orders [facility]02-14-2024 History of Present illness Narrative* Tonya Dye [...] 11/29/2023 4:34 PM ESTAssociated Problem(s): HTN (hypertension) ([facility]) No changes needed in medication regimine * [...] being taken. He does not see a home help aide.Eye exam is current. Hypertension This is a [...] (CMS/HCC) Relevant Orders Hemoglobin A1c HTN (hypertension) (CMS/[facility]) - Primary No changes needed in medication regimine Sebaceous cyst Still waiting on approval from vascular to stop plavix for proceedure Ageusia Relevant Orders CT SINUS WO IV CONTRAST documented in [facility] encounter[id number] Evaluation note* Encounter Date Diagnosis Assessment Notes [...] Oct,ain in right elbow (ICD-10 - M25.521) [employer] Other 12-29-2022 Hospital Discharge instructions Follow Up Care 10/13/2022 10:40:40 With:MANJIT WILKINS, JULIA Mays Address: [address] [place], [place] [id number]- When: only if needed General Surgery [employer] [id number] NoteOPERATIVE NOTE OPERATION DATE: 10/12/2022 PREOPERATIVE DIAGNOSIS: [...] area in good condition. CC: Tonya Dye, [facility]11-20-2022 NoteChief Complaint consultation for sebaceous cyst HPI [...] plan excisional biopsy under local anesthesia at [facility] once inflammation has decreased; approximately4 weeks; informed [...] Cipro (Itching) Victoza (Itchin (more content not included)...[facility] HospitalComment on above:Result Comment: Electronically Signed By: MANJIT WILKINS, Bernadine Calle\Date and Time Signed: 09/04/22 11:08 [id number] Evaluation note* Encounter Date Diagnosis Assessment Notes [...] of right lower extremity (ICD-10 - I82.491) [employer] Other 11-04-2021 Evaluation note* Encounter Date Diagnosis Assessment Notes Treatment Notes Treatment Clinical Notes Aug, Arthritis of right knee (ICD-10 - M17.11) Patient is doing well at this time. He will continue daily strengthening exercises and progress activity as tolerated [employer] Other 10-14-2021 Evaluation note* Encounter Date Diagnosis [...] MRI for further evaluation for meniscal tear. [employer] Other 05-25-2021 History general Narrative - Reported* Type Description Date Medical History type II diabetes Medical HistoryHTNMedical HistorypsoriasisSurgical Historyrotator cuff tear [id number] Historyright leg angioplasty03/09/21Hospitalization Historyse [employer] Other 05-25-2021 History general Narrative - Reported* Type Description Date Medical History type II diabetes Medical HistoryHTNMedical HistorypsoriasisMedical HistoryDVTSurgical History rotator cuff tear [id number] Historyright leg angioplasty03/09/21 Hospitalization History[employer] Other Evaluation + Plan note No data available for this section General Surgery Aileen Evaluation noteNo InformationNort Fannect Other Evaluation noteNo assessment information available [facility] Work Phone: Evaluation note* Diagnosis Primary [...] vascular disease, unspecified documented in this encounter [facility]* Diagnosis Acute gastritis without [...] (AWV) in Medicare patient- Primary Primary hypertension ([facility]/HCC) Unspecified essential hypertension Vitamin B12 deficiency Other B-complex deficiencies Uncontrolled type 2 diabetes mellitus with hyperglycemia ([facility]/HCC) Iron deficiency anemia, unspecified iron deficiency anemia type Mixed hyperlipidemia ([facility]) Mixed hyperlipidemia Screening for prostate cancer Special screening for malignant neoplasm of prostate Benign prostatic hyperplasia (BPH) with straining on urination Tobacco user Tobacco use disorder Overweight (BMI 25.0-29.9) Overweight Pneumonia due to infectious organism, unspecified laterality, unspecified part of lung- Primary Primary hypertension ([facility]) Unspecified essential hypertension Overweight (BMI 25.0-29.9) Overweight Tobacco user Tobacco use disorder Elevated brain natriuretic peptide (BNP) level Primary hypertension ([facility])- Primary Unspecified essential hypertension Diabetic polyneuropathy associated with type 2 diabetes mellitus ([facility]) Pneumonia due to infectious organism, unspecified laterality, unspecified part of lung PAD (peripheral artery disease) ([facility]) Unspecified peripheral vascular disease Nonrheumatic aortic valve stenosis Uncontrolled type 2 diabetes mellitus with hyperglycemia ([facility]) Overweight (BMI 25.0-29.9) Overweight Tobacco user Tobacco use disorder Primary hypertension ([facility])- Primary Unspecified essential hypertension Type 2 diabetes mellitus with diabetic peripheral angiopathy without gangrene, without long-term current use of insulin ([facility]) Uncontrolled type 2 diabetes mellitus with hyperglycemia ([facility]) PAD (peripheral artery disease) ([facility]) Unspecified peripheral vascular disease Diabetic polyneuropathy associated with type 2 diabetes mellitus ([facility]) Heart murmur Undiagnosed cardiac murmurs Overweight (BMI 25.0-29.9) Overweight Tobacco user Tobacco use disorder Psoriasis ([facility]) Other psoriasis Acute gastritis without hemorrhage, unspecified gastritis type- Primary Overweight (BMI 25.0-29.9) Overweight Primary hypertension ([facility]) Unspecified essential hypertension Uncontrolled type 2 diabetes mellitus with hyperglycemia ([facility]/HCC) PAD (peripheral artery disease) ([facility]) Unspecified peripheral vascular disease Benign prostatic hyperplasia (BPH) with straining on urination Diabetic polyneuropathy associated with type 2 diabetes mellitus ([facility]) Type 2 diabetes mellitus without complication, without long-term current use of insulin ([facility])- Primary Primary hypertension ([facility]/HCC) Unspecified essential hypertension PAD (peripheral artery disease) ([facility]/HCC) Unspecified peripheral vascular disease Overweight (BMI 25.0-29.9) Overweight Diabetic polyneuropathy associated with type 2 diabetes mellitus ([facility]/HCC) Tobacco user Tobacco use disorder Hemorrhage due to aspirin therapy Benign prostatic hyperplasia (BPH) with straining on urination Diverticulitis Diverticulitis of colon (without mention of hemorrhage) Bilateral carotid bruits documented in this encounter [facility] HealthcareEvaluation [facility]* Diagnosis Primary hypertension ([facility])- Primary Unspecified essential hypertension Type 2 diabetes mellitus with diabetic peripheral angiopathy without gangrene, without long-term current use of insulin ([facility]) Uncontrolled type 2 diabetes mellitus with hyperglycemia ([facility]) PAD (peripheral artery disease) ([facility]) Unspecified peripheral vascular disease Diabetic polyneuropathy associated with type 2 diabetes mellitus ([facility]) Heart murmur Undiagnosed cardiac murmurs Overweight (BMI 25.0-29.9) Overweight Tobacco user Tobacco use disorder Psoriasis ([facility]) Other psoriasis documented in this encounter [facility] HealthcareEvaluation note* Diagnosis 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- Primary Primary hypertension ([facility])- Primary Unspecified essential hypertension BMI 29.0-29.9,adult Type 2 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, without long- term current use of insulin, unspecified laterality, unspecified retinopathy severity ([facility]) Type 2 diabetes mellitus with diabetic neuropathy, without long-term current use of insulin ([facility]) Sebaceous cyst 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 Ageusia Disturbances of sensation of smell and taste Peripheral vascular disease, unspecified (I73.9) Peripheral vascular disease, unspecified Diabetic polyneuropathy associated with type 2 diabetes mellitus ([facility])- Primary Urine retention Unspecified retention of urine PAD (peripheral artery disease) ([facility]) Unspecified peripheral vascular disease Benign prostatic hyperplasia (BPH) with straining on urination Uncontrolled type 2 diabetes mellitus with hyperglycemia ([facility]) Vitamin B12 deficiency Other B-complex deficiencies Iron deficiency anemia, unspecified iron deficiency anemia type Primary hypertension ([facility]/HCC) Unspecified essential hypertension Encounter for subsequent annual wellness visit (AWV) in Medicare patient- Primary Primary hypertension ([facility]) Unspecified essential hypertension Vitamin B12 deficiency Other B-complex deficiencies Uncontrolled type 2 diabetes mellitus with hyperglycemia ([facility]) Iron deficiency anemia, unspecified iron deficiency anemia type Mixed hyperlipidemia ([facility]/HCC) Mixed hyperlipidemia Screening for prostate cancer Special screening for malignant neoplasm of prostate Benign prostatic hyperplasia (BPH) with straining on urination Tobacco user Tobacco use disorder Overweight (BMI 25.0-29.9) Overweight Pneumonia due to infectious organism, unspecified laterality, unspecified part of lung- Primary Primary hypertension ([facility]) Unspecified essential hypertension Overweight (BMI 25.0-29.9) Overweight Tobacco user Tobacco use disorder Elevated brain natriuretic peptide (BNP) level Primary hypertension ([facility])- Primary Unspecified essential hypertension Diabetic polyneuropathy associated with type 2 diabetes mellitus ([facility]) Pneumonia due to infectious organism, unspecified laterality, unspecified part of lung PAD (peripheral artery disease) ([facility]) Unspecified peripheral vascular disease Nonrheumatic aortic valve stenosis Uncontrolled type 2 diabetes mellitus with hyperglycemia ([facility]) Overweight (BMI 25.0-29.9) Overweight Tobacco user Tobacco use disorder Primary hypertension ([facility])- Primary Unspecified essential hypertension Type 2 diabetes mellitus with diabetic peripheral angiopathy without gangrene, without long-term current use of insulin ([facility]) Uncontrolled type 2 diabetes mellitus with hyperglycemia ([facility]) PAD (peripheral artery disease) ([facility]) Unspecified peripheral vascular disease Diabetic polyneuropathy associated with type 2 diabetes mellitus ([facility]) Heart murmur Undiagnosed cardiac murmurs Overweight (BMI 25.0-29.9) Overweight Tobacco user Tobacco use disorder Psoriasis ([facility]) Other psoriasis Acute gastritis without hemorrhage, unspecified gastritis type- Primary Overweight (BMI 25.0-29.9) Overweight Primary hypertension ([facility]) Unspecified essential hypertension Uncontrolled type 2 diabetes mellitus with hyperglycemia ([facility]) PAD (peripheral artery disease) ([facility]) Unspecified peripheral vascular disease Benign prostatic hyperplasia (BPH) with straining on urination Diabetic polyneuropathy associated with type 2 diabetes mellitus ([facility]) Type 2 diabetes mellitus without complication, without long-term current use of insulin ([facility])- Primary Primary hypertension ([facility]) Unspecified essential hypertension PAD (peripheral artery disease) ([facility]) Unspecified peripheral vascular disease Overweight (BMI 25.0-29.9) Overweight Diabetic polyneuropathy associated with type 2 diabetes mellitus ([facility]) Tobacco user Tobacco use disorder Hemorrhage due to aspirin therapy Benign prostatic hyperplasia (BPH) with straining on urination Diverticulitis Diverticulitis of colon (without mention of hemorrhage) Bilateral carotid bruits Uncontrolled type 2 diabetes mellitus with hyperglycemia ([facility])- Primary Type 2 diabetes mellitus with diabetic peripheral angiopathy without gangrene ([facility]) Type 2 diabetes mellitus with unspecified diabetic retinopathy without macular edema ([facility]) Heart failure, unspecified ([facility]) Heart failure, unspecified Type 2 diabetes mellitus with hyperglycemia ([facility]) Type 2 diabetes mellitus with diabetic polyneuropathy ([facility]) Primary hypertension ([facility]) Unspecified essential hypertension PAD (peripheral artery disease) ([facility]) Unspecified peripheral vascular disease Type 2 diabetes mellitus with diabetic peripheral angiopathy without gangrene, without long-term current use of insulin ([facility]) Overweight (BMI 25.0-29.9) Overweight Type 2 diabetes mellitus with hyperglycemia, without long-term current use of insulin ([facility]) Mixed hyperlipidemia ([facility]) Mixed hyperlipidemia Tobacco user Tobacco use disorder Allergic rhinitis, unspecified seasonality, unspecified trigger Diabetic polyneuropathy associated with type 2 diabetes mellitus ([facility]) Acute gastritis without hemorrhage, unspecified gastritis type documented in this encounter [facility] HealthcareEvaluation note* Diagnosis Claudication ([facility])- Primary Unspecified peripheral vascular disease Cigarette smoker motivated to quit [facility] Diagnosis Primary hypertension- Primary Unspecified essential hypertension Nonrheumatic aortic (valve) stenosis 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 documented in [facility] Diagnosis Primary hypertension- Primary Unspecified essential hypertension Nonrheumatic aortic (valve) stenosis documented [facility] Diagnosis Claudication- Primary Unspecified peripheral vascular disease Cigarette smoker motivated to quit Moderate aortic valve stenosis- Primary Aortic valve disorders Mixed hyperlipidemia documented [facility] Diagnosis 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- Primary Primary hypertension ([facility])- Primary Unspecified essential hypertension BMI 29.0-29.9,adult Type 2 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, without long- term current use of insulin, unspecified laterality, unspecified retinopathy severity ([facility]) Type 2 diabetes mellitus with diabetic neuropathy, without long-term current use of insulin ([facility]) Sebaceous cyst 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 Ageusia Disturbances of sensation of smell and taste Peripheral vascular disease, unspecified (I73.9) Peripheral vascular disease, unspecified Diabetic polyneuropathy associated with type 2 diabetes mellitus ([facility]/HCC)- Primary Urine retention Unspecified retention of urine PAD (peripheral artery disease) ([facility]) Unspecified peripheral vascular disease Benign prostatic hyperplasia (BPH) with straining on urination Uncontrolled type 2 diabetes mellitus with hyperglycemia ([facility]) Vitamin B12 deficiency Other B-complex deficiencies Iron deficiency anemia, unspecified iron deficiency anemia type Primary hypertension ([facility]CC) Unspecified essential hypertension Encounter for subsequent annual wellness visit (AWV) in Medicare patient- Primary Primary hypertension ([facility]) Unspecified essential hypertension Vitamin B12 deficiency Other B-complex deficiencies Uncontrolled type 2 diabetes mellitus with hyperglycemia ([facility]) Iron deficiency anemia, unspecified iron deficiency anemia type Mixed hyperlipidemia ([facility]) Mixed hyperlipidemia Screening for prostate cancer Special screening for malignant neoplasm of prostate Benign prostatic hyperplasia (BPH) with straining on urination Tobacco user Tobacco use disorder Overweight (BMI 25.0-29.9) Overweight Pneumonia due to infectious organism, unspecified laterality, unspecified part of lung- Primary Primary hypertension ([facility]) Unspecified essential hypertension Overweight (BMI 25.0-29.9) Overweight Tobacco user Tobacco use disorder Elevated brain natriuretic peptide (BNP) level Primary hypertension ([facility])- Primary Unspecified essential hypertension Diabetic polyneuropathy associated with type 2 diabetes mellitus ([facility]) Pneumonia due to infectious organism, unspecified laterality, unspecified part of lung PAD (peripheral artery disease) ([facility]) Unspecified peripheral vascular disease Nonrheumatic aortic valve stenosis Uncontrolled type 2 diabetes mellitus with hyperglycemia ([facility]) Overweight (BMI 25.0-29.9) Overweight Tobacco user Tobacco use disorder Primary hypertension ([facility])- Primary Unspecified essential hypertension Type 2 diabetes mellitus with diabetic peripheral angiopathy without gangrene, without long-term current use of insulin ([facility]) Uncontrolled type 2 diabetes mellitus with hyperglycemia ([facility]) PAD (peripheral artery disease) ([facility]) Unspecified peripheral vascular disease Diabetic polyneuropathy associated with type 2 diabetes mellitus ([facility]) Heart murmur Undiagnosed cardiac murmurs Overweight (BMI 25.0-29.9) Overweight Tobacco user Tobacco use disorder Psoriasis Other psoriasis Acute gastritis without hemorrhage, unspecified gastritis type- Primary Overweight (BMI 25.0-29.9) Overweight Primary hypertension ([facility]) Unspecified essential hypertension Uncontrolled type 2 diabetes mellitus with hyperglycemia ([facility]) PAD (peripheral artery disease) ([facility]) Unspecified peripheral vascular disease Benign prostatic hyperplasia (BPH) with straining on urination Diabetic polyneuropathy associated with type 2 diabetes mellitus ([facility]) Type 2 diabetes mellitus without complication, without long-term current use of insulin- Primary Primary hypertension ([facility]) Unspecified essential hypertension PAD (peripheral artery disease) ([facility]) Unspecified peripheral vascular disease Overweight (BMI 25.0-29.9) Overweight Diabetic polyneuropathy associated with type 2 diabetes mellitus ([facility]) Tobacco user Tobacco use disorder Hemorrhage due to aspirin therapy Benign prostatic hyperplasia (BPH) with straining on urination Diverticulitis Diverticulitis of colon (without mention of hemorrhage) Bilateral carotid bruits Uncontrolled type 2 diabetes mellitus with hyperglycemia ([facility])- Primary Type 2 diabetes mellitus with diabetic peripheral angiopathy without gangrene ([facility]) Type 2 diabetes mellitus with unspecified diabetic retinopathy without macular edema ([facility]) Heart failure, unspecified ([facility]) Heart failure, unspecified Type 2 diabetes mellitus with hyperglycemia ([facility]) Type 2 diabetes mellitus with diabetic polyneuropathy ([facility]) Primary hypertension ([facility]) Unspecified essential hypertension PAD (peripheral artery disease) ([facility]) Unspecified peripheral vascular disease Type 2 diabetes mellitus with diabetic peripheral angiopathy without gangrene, without long-term current use of insulin ([facility]) Overweight (BMI 25.0-29.9) Overweight Type 2 diabetes mellitus with hyperglycemia, without long-term current use of insulin ([facility]) Mixed hyperlipidemia ([facility]) Mixed hyperlipidemia Tobacco user Tobacco use disorder Allergic rhinitis, unspecified seasonality, unspecified trigger Diabetic polyneuropathy associated with type 2 diabetes mellitus ([facility]) Acute gastritis without hemorrhage, unspecified gastritis type Acute non-recurrent sinusitis of other sinus- Primary documented in this encounter [facility]Evaluation [facility]* Diagnosis Claudication- Primary Unspecified peripheral vascular disease Cigarette smoker motivated to quit PAD (peripheral artery disease)- Primary Unspecified peripheral vascular disease Claudication Unspecified peripheral vascular disease History of arterial bypass of lower extremity documented [facility] Diagnosis 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- Primary Primary hypertension ([facility])- Primary Unspecified essential hypertension BMI 29.0-29.9,adult Type 2 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, without long- term current use of insulin, unspecified laterality, unspecified retinopathy severity ([facility]) Type 2 diabetes mellitus with diabetic neuropathy, without long-term current use of insulin ([facility]) Sebaceous cyst 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 Ageusia Disturbances of sensation of smell and taste Peripheral vascular disease, unspecified (I73.9) Peripheral vascular disease, unspecified Diabetic polyneuropathy associated with type 2 diabetes mellitus ([facility])- Primary Urine retention Unspecified retention of urine PAD (peripheral artery disease) ([facility]) Unspecified peripheral vascular disease Benign prostatic hyperplasia (BPH) with straining on urination Uncontrolled type 2 diabetes mellitus with hyperglycemia ([facility]) Vitamin B12 deficiency Other B-complex deficiencies Iron deficiency anemia, unspecified iron deficiency anemia type Primary hypertension ([facility]) Unspecified essential hypertension Encounter for subsequent annual wellness visit (AWV) in Medicare patient- Primary Primary hypertension ([facility]) Unspecified essential hypertension Vitamin B12 deficiency Other B-complex deficiencies Uncontrolled type 2 diabetes mellitus with hyperglycemia ([facility]) Iron deficiency anemia, unspecified iron deficiency anemia type Mixed hyperlipidemia ([facility]) Mixed hyperlipidemia Screening for prostate cancer Special screening for malignant neoplasm of prostate Benign prostatic hyperplasia (BPH) with straining on urination Tobacco user Tobacco use disorder Overweight (BMI 25.0-29.9) Overweight Pneumonia due to infectious organism, unspecified laterality, unspecified part of lung- Primary Primary hypertension ([facility]) Unspecified essential hypertension Overweight (BMI 25.0-29.9) Overweight Tobacco user Tobacco use disorder Elevated brain natriuretic peptide (BNP) level Primary hypertension ([facility])- Primary Unspecified essential hypertension Diabetic polyneuropathy associated with type 2 diabetes mellitus ([facility]) Pneumonia due to infectious organism, unspecified laterality, unspecified part of lung PAD (peripheral artery disease) ([facility]) Unspecified peripheral vascular disease Nonrheumatic aortic valve stenosis Uncontrolled type 2 diabetes mellitus with hyperglycemia ([facility]) Overweight (BMI 25.0-29.9) Overweight Tobacco user Tobacco use disorder Primary hypertension ([facility])- Primary Unspecified essential hypertension Type 2 diabetes mellitus with diabetic peripheral angiopathy without gangrene, without long-term current use of insulin ([facility]) Uncontrolled type 2 diabetes mellitus with hyperglycemia ([facility]) PAD (peripheral artery disease) ([facility]) Unspecified peripheral vascular disease Diabetic polyneuropathy associated with type 2 diabetes mellitus ([facility]) Heart murmur Undiagnosed cardiac murmurs Overweight (BMI 25.0-29.9) Overweight Tobacco user Tobacco use disorder Psoriasis Other psoriasis Acute gastritis without hemorrhage, unspecified gastritis type- Primary Overweight (BMI 25.0-29.9) Overweight Primary hypertension ([facility]) Unspecified essential hypertension Uncontrolled type 2 diabetes mellitus with hyperglycemia ([facility]) PAD (peripheral artery disease) ([facility]) Unspecified peripheral vascular disease Benign prostatic hyperplasia (BPH) with straining on urination Diabetic polyneuropathy associated with type 2 diabetes mellitus ([facility]) Type 2 diabetes mellitus without complication, without long-term current use of insulin- Primary Primary hypertension ([facility]) Unspecified essential hypertension PAD (peripheral artery disease) ([facility]) Unspecified peripheral vascular disease Overweight (BMI 25.0-29.9) Overweight Diabetic polyneuropathy associated with type 2 diabetes mellitus ([facility]) Tobacco user Tobacco use disorder Hemorrhage due to aspirin therapy Benign prostatic hyperplasia (BPH) with straining on urination Diverticulitis Diverticulitis of colon (without mention of hemorrhage) Bilateral carotid bruits Uncontrolled type 2 diabetes mellitus with hyperglycemia ([facility])- Primary Type 2 diabetes mellitus with diabetic peripheral angiopathy without gangrene ([facility]) Type 2 diabetes mellitus with unspecified diabetic retinopathy without macular edema ([facility]) Heart failure, unspecified ([facility]) Heart failure, unspecified Type 2 diabetes mellitus with hyperglycemia ([facility]) Type 2 diabetes mellitus with diabetic polyneuropathy ([facility]) Primary hypertension ([facility]) Unspecified essential hypertension PAD (peripheral artery disease) ([facility]) Unspecified peripheral vascular disease Type 2 diabetes mellitus with diabetic peripheral angiopathy without gangrene, without long-term current use of insulin ([facility]) Overweight (BMI 25.0-29.9) Overweight Type 2 diabetes mellitus with hyperglycemia, without long-term current use of insulin ([facility]) Mixed hyperlipidemia ([facility]) Mixed hyperlipidemia Tobacco user Tobacco use disorder Allergic rhinitis, unspecified seasonality, unspecified trigger Diabetic polyneuropathy associated with type 2 diabetes mellitus ([facility]) Acute gastritis without hemorrhage, unspecified gastritis type Primary hypertension ([facility]) Unspecified essential hypertension Allergic rhinitis, unspecified seasonality, unspecified trigger Diabetic polyneuropathy associated with type 2 diabetes mellitus ([facility]) Uncontrolled type 2 diabetes mellitus with hyperglycemia ([facility]) PAD (peripheral artery disease) ([facility]) Unspecified peripheral vascular disease Acute gastritis without hemorrhage, unspecified gastritis type documented in this encounter [facility]Evaluation [facility]* Diagnosis 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- Primary Primary hypertension ([facility])- Primary Unspecified essential hypertension BMI 29.0-29.9,adult Type 2 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, without long- term current use of insulin, unspecified laterality, unspecified retinopathy severity ([facility]) Type 2 diabetes mellitus with diabetic neuropathy, without long-term current use of insulin ([facility]) Sebaceous cyst 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 Ageusia Disturbances of sensation of smell and taste Peripheral vascular disease, unspecified (I73.9) Peripheral vascular disease, unspecified Diabetic polyneuropathy associated with type 2 diabetes mellitus ([facility])- Primary Urine retention Unspecified retention of urine PAD (peripheral artery disease) ([facility]) Unspecified peripheral vascular disease Benign prostatic hyperplasia (BPH) with straining on urination Uncontrolled type 2 diabetes mellitus with hyperglycemia ([facility]) Vitamin B12 deficiency Other B-complex deficiencies Iron deficiency anemia, unspecified iron deficiency anemia type Primary hypertension ([facility]) Unspecified essential hypertension Encounter for subsequent annual wellness visit (AWV) in Medicare patient- Primary Primary hypertension ([facility]) Unspecified essential hypertension Vitamin B12 deficiency Other B-complex deficiencies Uncontrolled type 2 diabetes mellitus with hyperglycemia ([facility]) Iron deficiency anemia, unspecified iron deficiency anemia type Mixed hyperlipidemia ([facility]) Mixed hyperlipidemia Screening for prostate cancer Special screening for malignant neoplasm of prostate Benign prostatic hyperplasia (BPH) with straining on urination Tobacco user Tobacco use disorder Overweight (BMI 25.0-29.9) Overweight Pneumonia due to infectious organism, unspecified laterality, unspecified part of lung- Primary Primary hypertension ([facility]) Unspecified essential hypertension Overweight (BMI 25.0-29.9) Overweight Tobacco user Tobacco use disorder Elevated brain natriuretic peptide (BNP) level Primary hypertension ([facility])- Primary Unspecified essential hypertension Diabetic polyneuropathy associated with type 2 diabetes mellitus ([facility]) Pneumonia due to infectious organism, unspecified laterality, unspecified part of lung PAD (peripheral artery disease) ([facility]) Unspecified peripheral vascular disease Nonrheumatic aortic valve stenosis Uncontrolled type 2 diabetes mellitus with hyperglycemia ([facility]) Overweight (BMI 25.0-29.9) Overweight Tobacco user Tobacco use disorder Primary hypertension ([facility])- Primary Unspecified essential hypertension Type 2 diabetes mellitus with diabetic peripheral angiopathy without gangrene, without long-term current use of insulin ([facility]) Uncontrolled type 2 diabetes mellitus with hyperglycemia ([facility]) PAD (peripheral artery disease) ([facility]) Unspecified peripheral vascular disease Diabetic polyneuropathy associated with type 2 diabetes mellitus ([facility]) Heart murmur Undiagnosed cardiac murmurs Overweight (BMI 25.0-29.9) Overweight Tobacco user Tobacco use disorder Psoriasis Other psoriasis Acute gastritis without hemorrhage, unspecified gastritis type- Primary Overweight (BMI 25.0-29.9) Overweight Primary hypertension ([facility]) Unspecified essential hypertension Uncontrolled type 2 diabetes mellitus with hyperglycemia ([facility]) PAD (peripheral artery disease) ([facility]) Unspecified peripheral vascular disease Benign prostatic hyperplasia (BPH) with straining on urination Diabetic polyneuropathy associated with type 2 diabetes mellitus ([facility]) Type 2 diabetes mellitus without complication, without long-term current use of insulin- Primary Primary hypertension ([facility]) Unspecified essential hypertension PAD (peripheral artery disease) ([facility]) Unspecified peripheral vascular disease Overweight (BMI 25.0-29.9) Overweight Diabetic polyneuropathy associated with type 2 diabetes mellitus ([facility]) Tobacco user Tobacco use disorder Hemorrhage due to aspirin therapy Benign prostatic hyperplasia (BPH) with straining on urination Diverticulitis Diverticulitis of colon (without mention of hemorrhage) Bilateral carotid bruits Uncontrolled type 2 diabetes mellitus with hyperglycemia ([facility])- Primary Type 2 diabetes mellitus with diabetic peripheral angiopathy without gangrene ([facility]) Type 2 diabetes mellitus with unspecified diabetic retinopathy without macular edema ([facility]) Heart failure, unspecified ([facility]) Heart failure, unspecified Type 2 diabetes mellitus with hyperglycemia ([facility]) Type 2 diabetes mellitus with diabetic polyneuropathy ([facility]) Primary hypertension ([facility]) Unspecified essential hypertension PAD (peripheral artery disease) ([facility]) Unspecified peripheral vascular disease Type 2 diabetes mellitus with diabetic peripheral angiopathy without gangrene, without long-term current use of insulin ([facility]) Overweight (BMI 25.0-29.9) Overweight Type 2 diabetes mellitus with hyperglycemia, without long-term current use of insulin (CMS/HCC) Mixed hyperlipidemia (CMS/HCC) Mixed hyperlipidemia Tobacco user Tobacco use disorder Allergic rhinitis, unspecified seasonality, unspecified trigger Diabetic polyneuropathy associated with type 2 diabetes mellitus ([facility]) Acute gastritis without hemorrhage, unspecified gastritis type Uncontrolled type 2 diabetes mellitus with hyperglycemia ([facility]) documented in this encounter [facility] HealthcareEvaluation note* Diagnosis 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- Primary Primary hypertension- Primary Unspecified essential hypertension BMI 29.0-29.9,adult Type 2 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, without long- term current use of insulin, unspecified laterality, unspecified retinopathy severity ([facility]) Type 2 diabetes mellitus with diabetic neuropathy, without long-term current use of insulin ([facility]) Sebaceous cyst Anosmia due to nasal mucosa [...] or maintaining sleep documented in this encounter [facility]* Diagnosis Anosmia due to [...] mention of hemorrhage) documented in this encounter [facility]Evaluation note* Diagnosis Anosmia due to [...] right upper quadrant documented in this encounter [facility]Evaluation note* Diagnosis Anosmia due to [...] abdomen and pelvis [facility] Diagnosis Claudication- Primary Unspecified peripheral vascular disease Cigarette smoker motivated to quit Nonrheumatic aortic valve stenosis Severe aortic valve stenosis- Primary Aortic valve disorders Severe aortic valve stenosis Aortic valve disorders [facility] Diagnosis Claudication- Primary Unspecified peripheral vascular disease Cigarette smoker motivated to quit Nonrheumatic aortic (valve) stenosis- Primary Severe aortic valve stenosis- Primary Aortic valve disorders Severe aortic valve stenosis Aortic valve disorders documented in this encounter [facility]* Diagnosis Anosmia due to [...] Aortic valve disorders documented in this encounter [facility]* Diagnosis Claudication- Primary Unspecified peripheral vascular disease Cigarette smoker motivated to quit Nonrheumatic aortic valve stenosis- Primary documented in this encounter [facility]* Diagnosis Claudication- Primary Unspecified peripheral vascular disease Cigarette smoker motivated to quit S/P CABG (coronary artery bypass graft)- Primary Postsurgical aortocoronary bypass status S/P AVR (aortic valve replacement) Heart valve replaced by other means documented in this encounter [facility]* Diagnosis Claudication- Primary Unspecified peripheral vascular disease Cigarette smoker motivated to quit S/P CABG (coronary artery bypass graft)- Primary Postsurgical aortocoronary bypass status S/P AVR (aortic valve replacement) Heart valve replaced by other means documented in this encounter [facility]* Diagnosis Claudication- Primary Unspecified peripheral vascular disease Cigarette smoker motivated to quit S/P CABG (coronary artery bypass graft)- Primary Postsurgical aortocoronary bypass status S/P AVR (aortic valve replacement) Heart valve replaced by other means documented in this encounter [facility]* Diagnosis Claudication- Primary Unspecified peripheral vascular disease Cigarette smoker motivated to quit S/P CABG (coronary artery bypass graft)- Primary Postsurgical aortocoronary bypass status S/P AVR (aortic valve replacement) Heart valve replaced by other means documented in this encounter [facility]* Diagnosis Claudication- Primary Unspecified peripheral vascular disease Cigarette smoker motivated to quit S/P AVR (aortic valve replacement)- Primary Heart valve replaced by other means S/P CABG (coronary artery bypass graft) Postsurgical aortocoronary bypass status documented in this encounter [facility]* Diagnosis Claudication- Primary Unspecified peripheral vascular disease Cigarette smoker motivated to quit S/P CABG (coronary artery bypass graft)- Primary Postsurgical aortocoronary bypass status S/P AVR (aortic valve replacement) Heart valve replaced by other means documented in this encounter [facility]* Diagnosis Onset Date Resolution Status Admit Date Essential hypertension acuteSept2024 3:47pmGeneralized anxiety disorder with panic attacks acuteSeptember 2024 3:47pmHx of CABGacuteSept2024 3:47pm Nicotine dependenceacuteSe2024 3:47pmPanic attackacuteSept2024 3:47pmS/P aortic valve replacementacuteSe2024 3:47pm Type 2 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, without long-termacute July 14, 2025 3:47pm [facility] Work Phone: Evaluation note* Diagnosis Claudication- Primary Unspecified peripheral vascular disease Cigarette smoker motivated to quit Nonrheumatic aortic (valve) stenosis- Primary ASCVD (arteriosclerotic cardiovascular disease) Unspecified cardiovascular disease Mixed hyperlipidemia Primary hypertension Unspecified essential hypertension Postoperative atrial fibrillation ([facility]) documented in this encounter [facility]* Diagnosis Claudication- Primary Unspecified peripheral vascular disease Cigarette smoker motivated to quit S/P CABG (coronary artery bypass graft)- Primary Postsurgical aortocoronary bypass status S/P AVR (aortic valve replacement) Heart valve replaced by other means documented in this encounter [facility]* Diagnosis Claudication- Primary Unspecified peripheral vascular disease Cigarette smoker motivated to quit S/P CABG (coronary artery bypass graft)- Primary Postsurgical aortocoronary bypass status S/P AVR (aortic valve replacement) Heart valve replaced by other means Encounter for immunization documented in this encounter [facility]* Diagnosis Claudication- Primary Unspecified peripheral vascular disease Cigarette smoker motivated to quit S/P CABG (coronary artery bypass graft)- Primary Postsurgical aortocoronary bypass status S/P AVR (aortic valve replacement) Heart valve replaced by other means documented in this encounter [facility] note* Diagnosis Claudication- Primary Unspecified peripheral vascular disease Cigarette smoker motivated to quit S/P CABG (coronary artery bypass graft)- Primary Postsurgical aortocoronary bypass status S/P AVR (aortic valve replacement) Heart valve replaced by other means documented in this encounter [facility]* Diagnosis Claudication- Primary Unspecified [...] data available for this section General Surgery [place] InstructionsNot on filedocumented in this encounter [facility] filedocumented in [facility]Not on filedocumented in this encounter [facility]Not on filedocumented in this encounter [facility]ructionsNot on filedocumented in this encounter [facility]* Attachments The following attachments cannot be sent through Care Everywhere. * Quitting smoking for adults (Malaysian) documented in [facility] encounter[facility] SystemInstructionsNot on file documented in this encounterProMedica Health SystemInstructionsNot on file documented in this encounterProMedica Health SystemInstructionsNot on file documented in this encounterProMedica Health SystemInstructionsNot on file documented in this encounterProMedica Health SystemInstructions* Attachments The following attachments cannot be sent through Care Everywhere. * Quitting smoking for adults (Malaysian) documented in this encounterPro[facility] Health SystemInstructionsNot on file documented in this encounterProMedica Health SystemInstructionsNot on file documented in this encounterProMedica Health SystemInstructionsNot on file documented in this encounterProMedica Health SystemInstructionsNot on file documented in this encounterProMedica Health SystemInstructionsNot on file documented in this encounterProMedica Health SystemInstructionsNot on file documented in this encounterProMedica Health SystemInstructionsNot on file documented in this encounterProMedica [facility] SystemInstructionsNot on file documented in this encounterProMediSeek & [facility] SystemProgress note No data available for this section General Surgery [place] Reason for referral (narrative)No reason for referral information availableClermont [facility] Work Phone: Summary Purpose Family History [...] NOHEMI Ronnell Siu MD [address] [place] [address] Referral IDStatusReasonStart DateExpiration DateVisits RequestedVisits [id number] Review/[id number] / ProceduresReferred By ContactReferred To Contact Diagnoses Claudication (CMS-HCC) Cigarette smoker motivated to quit Procedures Vas art duplex lwr single right Yaneli Howell MD [address], [address] [address] Phone: Referral IDStatusReasonStart DateExpiration DateVisits RequestedVisits [id number] Review/[id number] / ProceduresReferred By ContactReferred To Contact Diagnoses Claudication (CMS-HCC) Cigarette smoker motivated to quit Procedures Vas art doppler lwr bilat mult lev/PVR Yaneli Howell MD [address], [address] [address] Phone: Referral IDStatusReasonStart DateExpiration DateVisits RequestedVisits [id number] Review/[id number] / ProceduresReferred By ContactReferred To Contact Diagnoses 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 Ageusia Procedures CT SINUS WO IV CONTRAST Tonya Dye, MANA[employer] [address] [place] [address] Referral IDStatusReasonStart DateExpiration DateVisits RequestedVisits [id number] Review/ Chief Complaint and Reason for Visit [...] section and content) DATE CREATED AUTHOR 11/08/2021 [facility] DATE CREATED AUTHOR AUTHOR'S ORGANIZ ATION 10/26/2022 [facility] DATE CREATED AUTHOR AUTHOR'S ORGANIZ ATION 02/05/2023 [facility] DATE CREATED AUTHOR AUTHOR'S ORGANIZ ATION 01/05/2024 [facility] DATE CREATED AUTHOR AUTHOR'S ORGANIZ ATION 04/09/2025 [facility] DATE CREATED AUTHOR AUTHOR'S ORGANIZ ATION 06/20/2025 [facility] DATE CREATED AUTHOR AUTHOR'S ORGANIZ ATION 07/08/2025 [facility] DATE CREATED AUTHOR AUTHOR'S ORGANIZ ATION 08/12/2025 [facility] REASON FOR VISIT (unrecogniz ed section and content) ReasonCommentsDiabetesReasonCommentsPADClaudicationReasonCommentsFollow-upEARLY FU PER TONYA DYE ABN ECHOHypertensionSpecialtyDiagnoses / ProceduresReferred By ContactReferred To ContactCardiology Diagnoses Nonrheumatic aortic (valve) stenosis [facility] [address] [place] [address] [facility] [address] [place] [address] Referral IDStatusReasonStart DateExpiration DateVisits RequestedVisits [id number] Review Specialty Services Required /[id number] UP TESTINGHypertensionReason CommentsFollow-upEST PT F/U NO TESTS -L/S TMPHypertensionReasonCommentsMedicare Annual Wellness Visit InitialReasonCommentsAbdominal PainBack PainReasonComments New PatientNP REFERRED BY KM FOR -TTE 04/14/25-APPT SCHED W PTCardiac Valve ProblemDental InquiryDental: February 2025. [facility]. Full upper dentures, missing several rear molars. No other dental issues noted.Specialty Diagnoses / ProceduresReferred By ContactReferred To ContactCardiology Diagnoses Nonrheumatic aortic valve stenosis Vanessa Persaud PA-C [address] [place] [address] Phone: tel: fax: [facility] [address] [place] [address] Phone: tel: fax: Referral IDStatusReasonStart DateExpiration DateVisits RequestedVisits [id number] Review Specialty Services Required 1ReasonOnset DateCommentsCath Ubddffehcgeh60/07/2025Reason Onset DateCommentsCT Upaisxafmfmx58/07/2025ReasonCommentsMed RefillReason CommentsFollow-upfollow up (pkr +cts)Cardiac Valve ProblemReasonCommentsNew [...] Jensen MD [address] [place] [address] PCP - GeneralFamily Medicine11/28/23 Tonya Dye NP [address] [place] [address] Referring PhysicianNurse Practitioner03/09/23Team MemberRelationshipSpecialty Start DateEnd Date Mumtaz Jensen MD [address] [place] [address] PCP - [facility] Medicine11/28/23 Tonya Dye NP [address] [place] [address] Referring PhysicianNurse Practitioner03/09/23Team MemberRelationshipSpecialty Start DateEnd Date Mumtaz Jensen MD [address] [place] [address] PCP - [facility]11/28/23 Tonya Dye NP Referring PhysicianNurse Practitioner03/09/23Team MemberRelationshipSpecialty Start DateEnd Date Mumtaz Jensen MD [address] [place] [address] PCP - [facility]11/28/23 Tonya Dye NP Referring PhysicianNurse Practitioner03/09/23Team MemberRelationshipSpecialty Start DateEnd Date Mumtaz Jensen MD [address] [place] [address] PCP - [facility]11/28/23 Tonya Dye NP Referring PhysicianNurse Practitioner03/09/23Team MemberRelationshipSpecialty Start DateEnd Date Mumtaz Jensen MD [address] [place] [address] PCP - [facility] Medicine11/28/23 Tonya Dye NP Referring PhysicianNurse Practitioner03/09/23Te MemberRelationshipSpecialty Start DateEnd Date Mumtaz Jensen MD [address] [place] [address] PCP - [facility]11/28/23 Tonya Dye NP Referring PhysicianNurse Practitioner03/09/23Te MemberRelationshipSpecialty Start DateEnd Date Mumtaz Jensen MD [address] [place] [address] PCP - [facility]11/28/23 Tonya Dye NP Referring PhysicianNurse Practitioner03/09/23Te MemberRelationshipSpecialty Start DateEnd Date Mumtaz Jensen MD [address] [place] [address] PCP - [facility]11/28/23 Tonya Dye NP Referring PhysicianNurse Practitioner03/09/23Te MemberRelationshipSpecialty Start DateEnd Date Naderer, Mumtaz, MD [address] [place] [address] [facility] Tonya Dye NP Referring PhysicianNurse Practitioner03/09/23Team MemberRelationshipSpecialty Start DateEnd Date Mumtaz Jensen MD [address] [place] [address] PCP - [facility]11/28/23 Tonya Dye NP Referring PhysicianNurse Practitioner03/09/23Team MemberRelationshipSpecialty Start DateEnd Date Tonya Dye, NUTRITION HELPER-COMMUNICATIONS SPECIALIST [address] [place] [address] PCP - GeneralNurse Erjpxdgrdonr26/23/21Team MemberRelationshipSpecialtyStart DateEnd Date Tonya Dye, NUTRITION HELPER-COMMUNICATIONS SPECIALIST [address] [place] [address] PCP - GeneralNurse Fbracievxrgz01/23/21Team MemberRelationshipSpecialtyStart DateEnd Date Tonya Dye, NUTRITION HELPER-COMMUNICATIONS SPECIALIST [address] [place] [address] PCP - GeneralNurse Gejvwjmuabss79/23/21Team MemberRelationshipSpecialtyStart DateEnd Date Tonya Dye, [facility] [address] [place] [address] PCP - GeneralNurse Cqrfbbmoljjg52/23/21Team MemberRelationshipSpecialtyStart DateEnd Date Tonya Dye, [facility] [address] [place] [address] PCP - GeneralNurse Zplndtimhvyv57/23/21Team MemberRelationshipSpecialtyStart DateEnd Date Tonya Dye [facility] [address] [place] [address] PCP - GeneralNurse Xtplycingptf40/23/21Team MemberRelationshipSpecialtyStart DateEnd Date Tonya Dye, [facility] [address] [place] [address] PCP - GeneralNurse Iyduiixwwgcx43/23/21Team MemberRelationshipSpecialtyStart DateEnd Date Tnoya Dye [facility] PCP - GeneralNurse Urycxtesryxi10/23/21Team MemberRelationshipSpecialtyStart DateEnd Date Tonya Dye [facility] PCP - GeneralNurse Ekmbzzkrjvlu91/23/21Team MemberRelationshipSpecialtyStart DateEnd Date Tonya Dye [facility] PCP - GeneralNurse Zbmzotfmkbor34/23/21Team MemberRelationshipSpecialtyStart DateEnd Date Mumtaz Jensen MD [address] [place] [address] PCP - GeneralFamily Medicine11/28/23 Tonya Dye NP [address] [place] [address] PCP - [facility]11/22/24 Tonya Dye NP Referring PhysicianNurse Practitioner03/09/23Team MemberRelationshipSpecialty Start DateEnd Date Mumtaz Jensen MD [address] [place] [address] PCP - GeneralFamily Medicine11/28/23 Tonya Dye NP [address] [place] [address] PCP - [facility]11/22/24 Tonya Dye NP Referring PhysicianNurse Practitioner03/09/23Team MemberRelationshipSpecialty Start DateEnd Date Tonya Dye, NUTRITION HELPER-COMMUNICATIONS SPECIALIST PCP - GeneralNurse Dipfehnnuimg55/23/21Team MemberRelationshipSpecialtyStart DateEnd Date Mumtaz Jensen MD [address] [place] [address] [facility]/28/23 Tonya Dye NP [address] [place] [address] PCP - [facility]11/22/24 Tonya Dye NP Referring PhysicianNurse Practitioner03/09/23Team MemberRelationshipSpecialty Start DateEnd Date Mumtaz Jensen MD [address] [place] [address] PCP - [facility]11/28/23 Tonya Dye NP [address] [place] [address] PCP - [facility]11/22/24 Tonya Dye NP Referring PhysicianNurse Practitioner03/09/23Team MemberRelationshipSpecialty Start DateEnd Date Mutmaz Jensen MD [address] [place] [address] PCP - [facility]11/28/23 Tonya Dye NP [address] [place] [address] PCP - [facility]11/22/24 Tonya Dye NP Referring PhysicianNurse Practitioner03/09/23Team MemberRelationshipSpecialty Start DateEnd Date Mumtaz Jensen MD [address] [place] [address] [facility]11/28/23 Tonya Dye NP [address] [place] [address] PCP - [facility]11/22/24 Tonya Dye NP Referring PhysicianNurse Practitioner03/09/23Team MemberRelationshipSpecialty Start DateEnd Date Mumtaz Jensen MD [address] [place] [address] PCP - [facility]11/28/23 Tonya Dye NP [address] [place] [address] PCP - [facility]11/22/24 Tonya Dye NP Referring PhysicianNurse Practitioner03/09/23Team MemberRelationshipSpecialty Start DateEnd Date Mumtaz Jensen MD [address] [place] [address] [facility]11/28/23 Tonya Dye NP [address] [place] [address] PCP - [facility]11/22/24 Tonya Dye NP Referring PhysicianNurse Practitioner03/09/23Team MemberRelationshipSpecialty Start DateEnd Date Mumtaz Jensen MD [address] [place] [address] PCP - GeneralFamily Medicine11/28/23 Tonya Dye NP [address] [place] [address] PCP - [facility]11/22/24 Tonya Dye NP Referring PhysicianNurse Practitioner03/09/23Te MemberRelationshipSpecialty Start DateEnd Date Mumtaz Jensen MD [address] [place] [address] [facility]11/28/23 Tonya Dye NP [address] [place] [address] PCP - [facility]11/22/24 Tonya Dye NP Referring PhysicianNurse Practitioner03/09/23Team MemberRelationshipSpecialty Start DateEnd Date Mumtaz Jensen MD [address] [place] [address] PCP - GeneralFamily Medicine11/28/23 Tonya Dye NP [address] [place] [address] PCP - [facility]11/22/24 Tonya Dye NP Referring PhysicianNurse Practitioner03/09/23Team MemberRelationshipSpecialty Start DateEnd Date Tonya Dye APRN-[facility] PCP - GeneralNurse Nuoynomveqqq52/23/21Team MemberRelationshipSpecialtyStart DateEnd Date [facility] P[facility] - GeneralNurse Hpuojzmyspgk01/23/21Team MemberRelationshipSpecialtyStart DateEnd Date [facility] PCP - GeneralNurse Mhswoiwftchw44/23/21Team MemberRelationshipSpecialtyStart DateEnd Date [facility] PCP - GeneralNurse Awqmlemtwgzt84/23/21Team MemberRelationshipSpecialtyStart DateEnd Date Mumtaz Jensen MD [address] [place] [address] PCP - GeneralFamily Medicine11/28/23 Tonya Dye NP [address] [place] [address] PCP - [facility]11/22/24 Tonya Dye NP Referring PhysicianNurse Practitioner03/09/23Team MemberRelationshipSpecialty Start DateEnd Date Mumtaz Jensen MD [address] [place] [address] [facility]/28/23 Tonya Dye NP [address] [place] [address] PCP - [facility]11/22/24 Tonya Dye NP Referring PhysicianNurse Practitioner03/09/23Team MemberRelationshipSpecialty Start DateEnd Date Tonya Dye APRN-[facility] PCP - GeneralNurse Fnydwjsomfnx93/23/21Team MemberRelationshipSpecialtyStart DateEnd Date Tonya Dye APRN-[facility] PCP - GeneralNurse Jbiexfjrmiou31/23/21Team MemberRelationshipSpecialtyStart DateEnd Date Tonya Dye APRN-[facility] PCP - GeneralNurse Wwkchtpwghsx70/23/21Team MemberRelationshipSpecialtyStart DateEnd Date Tonya Dye APRN-[facility] PCP - GeneralNurse Csmmjrcmdhbi08/23/21Team MemberRelationshipSpecialtyStart DateEnd Date Tonya Dye [facility] PCP - GeneralNurse Bytvgmmvjhxx34/23/21Team MemberRelationshipSpecialtyStart DateEnd Date Tonya Dye [facility] PCP - GeneralNurse Ancowcoyxkgk76/23/21Team MemberRelationshipSpecialtyStart DateEnd Date Tonya Dye [facility] PCP - GeneralNurse Nowhvhcambiw91/23/21Team MemberRelationshipSpecialtyStart DateEnd Date Tonya Dye [facility] PCP - GeneralNurse Kofkalyyppcw18/23/21 MemberRelationshipSpecialtyStart DateEnd Date Tonya Dye, [facility] PCP - GeneralNurse Kuheeveyyhkn38/23/21Team MemberRelationshipSpecialtyStart DateEnd Date Tonya Dye, [facility] PCP - GeneralNurse Edkxrrfhvsqe57/23/21Team MemberRelationshipSpecialtyStart DateEnd Date Tonya Dye, [facility] PCP - GeneralNurse Fizvgskcegtx60/23/21Team MemberRelationshipSpecialtyStart DateEnd Date [facility]a [facility] Kezkijjupcoc46/23/21Team MemberRelationshipSpecialtyStart DateEnd Date Tonya Dye [facility] - [facility] Lmobchlwixmj60/23/21 Team Status: Active Member Role Status Dates Tonya Dye MANAGER WOUND CARE-C Primary Care Provider Active Team Status: Inactive Member Role Status Dates Tonya Dye MANAGER WOUND CARE-C Primary Care Provider Active Start: July 14, 2025 End: July 14, 2025Tonya Dye MANAGER WOUND CARE-CAttending ProviderActiveStart: July 14, 2025 End: July 14, 2025Team MemberRelationshipSpecialtyStart DateEnd Date Tonya Dye [facility] PCP - [facility] Mumtmmjutiij61/23/21Team MemberRelationshipSpecialtyStart DateEnd Date Tonya Dye [facility] PCP - [facility] Cvttjmnvgpdq82/23/21 Team Status: Active Member Role/Relationship Status Dates Tonya Dye MANAGER WOUND CARE-C Primary Care Provider Active Team Status: Inactive Member Role/Relationship Status Dates Tonya Dye MANAGER WOUND CARE-C Primary Care Provider Active Start: July 14, 2025 End: July 14, 2025Tonya Dye MANAGER WOUND CARE-CAttending ProviderActiveStart: July 14, 2025 End: July 14, 2025 Team Status: Inactive Member Role/Relationship Status Dates Tonya Dye MANAGER WOUND CARE-C Primary Care Provider Active Start: August 13, 2025 End: August 13, 2025Tonya Dye NP-Stephanie ProviderActiveStart: August 13, 2025 End: August 13, 2025Team MemberRelationshipSpecialtyStart DateEnd Date Mumtaz Jensen MD PCP - [facility]11/28/23 Tonya Dye NP [address] [place] [address] PCP - [facility]11/22/24 Tonya Dye NP Referring PhysicianNurse Practitioner03/09/23Te MemberRelationshipSpecialty Start DateEnd Date Mumtaz Jensen MD PCP - [facility]11/28/23 Tonya Dye NP [address] [place] [address] PCP - [facility]11/22/24 Tonya Dye NP Referring PhysicianNurse Practitioner03/09/23Te MemberRelationshipSpecialty Start DateEnd Date Tonya Dye, NUTRITION HELPER-COMMUNICATIONS SPECIALIST PCP - GeneralNurse Utymtkprxyyd49/23/21 Goals (unrecognized section and content) Goals may [...] BE BASED ON THE PRIMARY CLINICAL RECORDS. [email or web address] provides no warranty or guarantee of the accuracy or completeness of information in this document.
== END 2025-08-19 12:40 | disposition home or self-care (01) ==
LOC: LAB 12:39
PROVIDERS: PCP Nurse Practitioner; Visit Provider Nurse Practitioner
DX: R59.0 Localized enlarged lymph nodes (principal); N40.0 Benign prostatic hyperplasia without lower urinary tract symptoms; K76.0 Fatty (change of) liver, not elsewhere classified; K57.90 Diverticulosis of intestine, part unspecified, without perforation or abscess without bleeding; D50.9 Iron deficiency anemia, unspecified; E11.319 Type 2 diabetes mellitus with unspecified diabetic retinopathy without macular edema; E53.8 Deficiency of other specified B group vitamins
CPT/HCPCS: 36415; 74177; 80048; 82607; 82728; 83540; 85025; Q9967